=== PATIENT | male | born 1940 | race Caucasian/White ===

== ENCOUNTER → 2017-08-05 09:46 | Outpatient (CLI) | payer MEDICARE, SELFPAY ==
--- NOTE | 2017-08-05 09:46 | DT_ITS ---
This patient was seen during an EMR downtime August 03, 2017 - August 10, 2017. This patient may have a combination of paper and electronic documentation or all paper documentation. All documentation is viewable within the e-chart portion of [facility] for each patient visit.
[2017-08-10 11:30] LABS: ALB/GLOB Ratio 0.9 RATIO (0.9-2.4); AST(SGOT) 24 U/L (15-37); Alanine Aminotransfer ALT/SGPT 31 U/L (16-61); Albumin, Serum 3.9 g/dL (3.2-5.0); Alkaline Phosphatase 80 U/L (45-117); BUN 14 mg/dL (7-18); BUN/Creat Ratio 12.2 RATIO (10-20); Calcium,Total 8.8 mg/dL (8.5-10.1); Creatinine, Serum 1.15 mg/dL (0.70-1.30); EST Glomerular Filtration Rate 66 mL/min (>60); Est Glom Filt Rate - Afr Amer 80 mL/min (>60); Globulin 4.3 g/dL (2.2-4.2); Glucose 157 mg/dL (74-106); Protein, Total 8.2 g/dL (6.4-8.2)
[2017-08-10 11:31] LABS: Anion Gap 10 (5-15); Chloride 103 mmol/L (98-107); Cholesterol 118 mg/dL (200); Hemoglobin A1c 7.4 % (4.2-6.3); High Density Lipoprotein 30 mg/dL; Potassium 4.7 mmol/L (3.5-5.1); Sodium Level 140 mmol/L (136-145); Triglycerides 244 mg/dL; Very Low Density Lipoprotein 49 mg/dL (5-40)
== END ==
PROVIDERS: Family Provider Family Medicine; PCP Family Medicine; Visit Provider Family Medicine
DX: E11.9 Type 2 diabetes mellitus without complications (principal); Z79.899 Other long term (current) drug therapy
CPT/HCPCS: 36415; 80053; 80061; 83036

== ENCOUNTER → 2017-11-18 09:41 | Outpatient (CLI) | payer MEDICARE, SELFPAY ==
[2017-11-18 10:57] LABS: Hemoglobin A1c 7.6 % (4.2-6.3)
== END ==
PROVIDERS: Family Provider Family Medicine; PCP Family Medicine; Visit Provider Family Medicine
DX: E11.9 Type 2 diabetes mellitus without complications (principal)
CPT/HCPCS: 36415; 83036

== ENCOUNTER → 2018-06-23 09:15 | Outpatient (CLI) | payer MEDICARE, SELFPAY ==
[2018-06-23 08:43] VITALS: BMI 24.7
[2018-06-23 12:37] LABS: AST(SGOT) 24 U/L (15-37); Alanine Aminotransfer ALT/SGPT 39 U/L (16-61); Albumin, Serum 3.9 g/dL (3.2-5.0); Alkaline Phosphatase 81 U/L (45-117); Anion Gap 6 (5-15); BUN 11 mg/dL (7-18); Chloride 103 mmol/L (98-107); Cholesterol 130 mg/dL (200); Creatinine, Serum 1.22 mg/dL (0.70-1.30); EST Glomerular Filtration Rate 61 mL/min (>60); Est Glom Filt Rate - Afr Amer 74 mL/min (>60); Glucose 180 mg/dL (74-106); High Density Lipoprotein 31 mg/dL; Potassium 4.6 mmol/L (3.5-5.1); Protein, Total 7.9 g/dL (6.4-8.2); Sodium Level 138 mmol/L (136-145); Thyroid Stim Hormone (TSH) 4.73 uIU/mL (0.358-3.74); Triglycerides 222 mg/dL; Very Low Density Lipoprotein 44 mg/dL (5-40)
== END ==
PROVIDERS: Family Provider Family Medicine; PCP Family Medicine; Visit Provider Family Medicine
DX: E03.9 Hypothyroidism, unspecified (principal); E78.5 Hyperlipidemia, unspecified
CPT/HCPCS: 36415; 80053; 80061; 84443

== ENCOUNTER → 2018-07-07 08:39 | Outpatient (CLI) | payer MEDICARE, SELFPAY ==
[2018-06-23 08:43] VITALS: BMI 24.7
[2018-07-07 12:42] LABS: T4 Free Direct 1.04 ng/dL (0.76-1.46); Thyroid Stim Hormone (TSH) 5.06 uIU/mL (0.358-3.74)
== END ==
PROVIDERS: Family Provider Family Medicine; PCP Family Medicine; Visit Provider Family Medicine
DX: E03.9 Hypothyroidism, unspecified (principal)
CPT/HCPCS: 36415; 84439; 84443

== ENCOUNTER → 2019-04-20 09:01 | Outpatient (CLI) | payer MEDICARE, SELFPAY ==
[2019-04-20 08:42] VITALS: BMI 24.7
[2019-04-20 12:49] LABS: AST(SGOT) 43 U/L (15-37); Alanine Aminotransfer ALT/SGPT 76 U/L (16-61); Albumin, Serum 4.1 g/dL (3.2-5.0); Alkaline Phosphatase 68 U/L (45-117); Anion Gap 10 (5-15); BUN 13 mg/dL (7-18); BUN/Creat Ratio 9.8 RATIO (10-20); Calcium,Total 9.4 mg/dL (8.5-10.1); Chloride 99 mmol/L (98-107); Cholesterol 142 mg/dL (200); Creatinine, Serum 1.32 mg/dL (0.70-1.30); EST Glomerular Filtration Rate 56 mL/min (>60); Est Glom Filt Rate - Afr Amer 67 mL/min (>60); Globulin 4.2 g/dL (2.2-4.2); Glucose 202 mg/dL (74-106); High Density Lipoprotein 31 mg/dL; Potassium 4.2 mmol/L (3.5-5.1); Protein, Total 8.3 g/dL (6.4-8.2); Sodium Level 136 mmol/L (136-145); Triglycerides 340 mg/dL; Very Low Density Lipoprotein 68 mg/dL (5-40)
== END ==
PROVIDERS: PCP Family Medicine; Referring Provider Family Medicine; Visit Provider Family Medicine
DX: E03.9 Hypothyroidism, unspecified (principal); E78.2 Mixed hyperlipidemia
CPT/HCPCS: 36415; 80053; 80061

== ENCOUNTER → 2019-04-28 08:53 | Outpatient (CLI) | payer MEDICARE, SELFPAY ==
[2019-04-20 08:42] VITALS: BMI 24.7
[2019-04-28 12:44] LABS: Insulin 13.5 mU/L (2.6-37.6)
== END ==
PROVIDERS: PCP Family Medicine; Referring Provider Family Medicine; Visit Provider Family Medicine
DX: E11.9 Type 2 diabetes mellitus without complications (principal)
CPT/HCPCS: 36415; 83525

== ENCOUNTER → 2020-03-07 09:19 | Outpatient (CLI) | payer MEDICARE, SELFPAY ==
[2020-03-07 08:52] VITALS: BMI 24.8
[2020-03-07 12:53] LABS: AST(SGOT) 27 U/L (15-37); Alanine Aminotransfer ALT/SGPT 50 U/L (16-61); Albumin, Serum 4.1 g/dL (3.2-5.0); Alkaline Phosphatase 66 U/L (45-117); Anion Gap 8 (5-15); BUN 20 mg/dL (7-18); BUN/Creat Ratio 12.4 RATIO (10-20); Calcium,Total 9.3 mg/dL (8.5-10.1); Chloride 99 mmol/L (98-107); Cholesterol 152 mg/dL (200); Creatinine, Serum 1.61 mg/dL (0.70-1.30); EST Glomerular Filtration Rate 44 mL/min (>60); Est Glom Filt Rate - Afr Amer 54 mL/min (>60); Globulin 4.1 g/dL (2.2-4.2); Glucose 227 mg/dL (74-106); High Density Lipoprotein 33 mg/dL; Potassium 4.2 mmol/L (3.5-5.1); Protein, Total 8.2 g/dL (6.4-8.2); Sodium Level 134 mmol/L (136-145); Triglycerides 307 mg/dL; Very Low Density Lipoprotein 61 mg/dL (5-40)
== END ==
PROVIDERS: PCP Family Medicine; Referring Provider Family Medicine; Visit Provider Family Medicine
DX: E03.9 Hypothyroidism, unspecified (principal); E11.9 Type 2 diabetes mellitus without complications
CPT/HCPCS: 36415; 80053; 80061

== ENCOUNTER → 2020-03-12 08:05 | Outpatient (CLI) | payer MEDICARE, SELFPAY ==
[2020-03-07 08:52] VITALS: BMI 24.8
--- NOTE | 2020-03-12 08:11 | CT_ITS ---
STUDY: CT ABDOMEN WITH CONTRAST REASON FOR EXAM: Male, 79 years old. PERSIST ANT EPIGASTRIC PAIN X-MULTIPLE MONTHS -- SURG-APPY RADIATION DOSAGE (If Supplied By Facility): CTDIvol = ( 19.53 ) mGy, DLP = ( 636.72 ) mGycm TECHNIQUE: Transaxial images were obtained post I.V. administration of 100CC ISOVUE 300, and without oral contrast. Sagittal and coronal images were reconstructed. Individualized dose optimization techniques were used for this CT. COMPARISON: None. FINDINGS: The visualized lung bases are unremarkable. Coronary artery calcification. There is decreased attenuation of the liver consistent with steatosis. Normal gallbladder and extrahepatic biliary system. Normal spleen. Normal pancreas. Normal bilateral adrenal glands. Normal right kidney. Normal left kidney. Normal visualized stomach. Normal small intestine. Normal colon. The patient is status post appendectomy. There is diffuse atherosclerotic calcification of the abdominal aorta, without a demonstrated aneurysm. Normal inferior vena cava. There is borderline retroperitoneal lymphadenopathy with enlarged nodes no greater than 10mm in the short axis diameter. There is a small umbilical hernia containing fat. There are diffuse degenerative changes of the visualized lumbar spine. There is straightening of the normal lumbar lordosis. CT/Abdomen WITH IV Contrast IMPRESSION: Fatty infiltration of the liver. Electronically Signed: Camron Bo, at 14:31 EST , Service support ,
== END ==
PROVIDERS: PCP Family Medicine; Referring Provider Family Medicine; Visit Provider Family Medicine
DX: R10.13 Epigastric pain (principal)
CPT/HCPCS: 74160; Q9967; A4216

== ENCOUNTER 2020-05-07 15:48 | Outpatient (RCR) | payer MEDICARE, SELFPAY ==
[2020-03-07 08:52] VITALS: BMI 24.8
[2020-05-03] MEDS: COVID-19 VACC, MRNA(PFIZER)/PF 30 MCG/0.3 ML SYRINGE IM (14:58)
[2020-05-24] MEDS: COVID-19 VACC, MRNA(PFIZER)/PF 30 MCG/0.3 ML SYRINGE IM (14:28)
== END 2020-08-07 23:59 ==
LOC: IMMUN 15:48
PROVIDERS: PCP Family Medicine; Visit Provider Family Medicine
DX: Z23 Encounter for immunization (principal)
CPT/HCPCS: 0001A; 0002A; 91300

== ENCOUNTER → 2020-12-19 11:55 | Outpatient (CLI) | payer MEDICARE, SELFPAY ==
[2020-12-19 15:27] LABS: Hemoglobin A1c 8.4 % (3.8-5.6)
[2020-12-19 15:38] LABS: Anion Gap 9 (5-15); BUN 19 mg/dL (7-18); BUN/Creat Ratio 13.3 RATIO (10-20); Chloride 99 mmol/L (98-107); Cholesterol 140 mg/dL (200); Creatinine, Serum 1.43 mg/dL (0.70-1.30); EST Glomerular Filtration Rate 51 mL/min (>60); Est Glom Filt Rate - Afr Amer 61 mL/min (>60); Glucose 236 mg/dL (74-106); High Density Lipoprotein 34 mg/dL; Potassium 4.6 mmol/L (3.5-5.1); Sodium Level 135 mmol/L (136-145); Triglycerides 259 mg/dL; Very Low Density Lipoprotein 52 mg/dL (5-40)
== END ==
PROVIDERS: PCP Family Medicine; Referring Provider Family Medicine; Visit Provider Family Medicine
DX: E11.9 Type 2 diabetes mellitus without complications (principal); Z86.39 Personal history of other endocrine, nutritional and metabolic disease
CPT/HCPCS: 36415; 80048; 80061; 83036

== ENCOUNTER → 2020-12-20 | Outpatient (CLI) | payer MEDICARE, SELFPAY | END | disposition home or self-care (01) | LOC: LABSPEC 08:20 | PROVIDERS: PCP Family Medicine; Referring Provider Physician Assistant; Visit Provider Physician Assistant | DX: Z20.822 Contact with and (suspected) exposure to COVID-19 (principal) | CPT/HCPCS: 87635; U0005; U0003 ==

== ENCOUNTER 2021-05-10 10:21 | Outpatient (CLI) | payer MEDICARE, SELFPAY | END 2021-05-10 23:59 | disposition home or self-care (01) | LOC: LABSPEC 10:22 | PROVIDERS: PCP Family Medicine; Referring Provider Physician Assistant; Visit Provider Physician Assistant | DX: Z11.52 Encounter for screening for COVID-19 (principal) | CPT/HCPCS: 87635; U0003; U0005 ==

== ENCOUNTER → 2021-08-14 | Outpatient (CLI) | payer MEDICARE, SELFPAY ==
--- NOTE | 2021-08-14 10:10 | RAD_ITS ---
STUDY: X-RAY - LUMBAR SPINE REASON FOR EXAM: Male, 80 years old. Radiating low back pain TECHNIQUE: 3 view(s) of the lumbar spine were obtained. COMPARISON: None FINDINGS: There is straightening of the normal lumbar lordosis. There is no substantial scoliosis. There is a normal alignment of the vertebrae. There is diffuse demineralization with multi-level endplate spondylosis. There is multi-level degenerative disc disease with multi-level disc space narrowing. There is no demonstrated fracture. There is atherosclerotic calcification of the abdominal aorta without a demonstrated aneurysm. RAD/Lumbar Spine 2 or 3 Views IMPRESSION: Degenerative changes of the spine, as detailed above. Electronically Signed: Jose Brewer MD at 15:14 EDT ,
== END | disposition home or self-care (01) ==
LOC: RAD 10:07
PROVIDERS: PCP Family Medicine; Referring Provider Family Medicine; Visit Provider Family Medicine
DX: M54.50 Low back pain, unspecified (principal)
CPT/HCPCS: 72100

== ENCOUNTER → 2021-09-12 | Outpatient (CLI) | payer MEDICARE, SELFPAY | END | disposition home or self-care (01) | LOC: LABSPEC 09:23 | PROVIDERS: PCP Family Medicine; Referring Provider Physician Assistant; Visit Provider Physician Assistant | DX: Z11.52 Encounter for screening for COVID-19 (principal) | CPT/HCPCS: 87635; U0003; U0005 ==

== ENCOUNTER → 2022-01-08 | Outpatient (CLI) | payer MEDICARE, SELFPAY ==
[2022-01-08 13:18] LABS: AST(SGOT) 24 U/L (15-37); Alanine Aminotransfer ALT/SGPT 41 U/L (16-61); Alkaline Phosphatase 71 U/L (45-117); Anion Gap 10 (5-15); BUN 17 mg/dL (7-18); BUN/Creat Ratio 12.7 RATIO (10-20); Calcium,Total 9.3 mg/dL (8.5-10.1); Chloride 100 mmol/L (98-107); Cholesterol 122 mg/dL (200); Creatinine, Serum 1.34 mg/dL (0.70-1.30); EST Glomerular Filtration Rate 54 mL/min (>60); Est Glom Filt Rate - Afr Amer 66 mL/min (>60); Glucose 208 mg/dL (74-106); High Density Lipoprotein 34 mg/dL; Potassium 4.1 mmol/L (3.5-5.1); Sodium Level 138 mmol/L (136-145); Triglycerides 228 mg/dL; Very Low Density Lipoprotein 46 mg/dL (5-40)
[2022-01-08 15:01] LABS: Microalbumin:Creatinine Ratio 193.6 mg/g CRE (<30 mg/g CRE)
== END | disposition home or self-care (01) ==
LOC: BIMLAB 08:55
PROVIDERS: PCP Family Medicine; Referring Provider Family Medicine; Visit Provider Family Medicine
DX: E11.9 Type 2 diabetes mellitus without complications (principal); E78.2 Mixed hyperlipidemia
CPT/HCPCS: 36415; 80053; 80061; 82043; 82570

== ENCOUNTER → 2022-04-03 | Outpatient (CLI) | payer MEDICARE, SELFPAY ==
[2022-04-03 12:49] LABS: Hemoglobin A1c 10.7 % (3.8-5.6)
[2022-04-03 12:58] LABS: Thyroid Stim Hormone (TSH) 6.52 uIU/mL (0.358-3.74)
== END | disposition home or self-care (01) ==
LOC: BIMLAB 08:56
PROVIDERS: PCP Family Medicine; Referring Provider Family Medicine; Visit Provider Family Medicine
DX: Z86.39 Personal history of other endocrine, nutritional and metabolic disease (principal); E78.2 Mixed hyperlipidemia
CPT/HCPCS: 36415; 83036; 84443

== ENCOUNTER → 2022-07-01 | Outpatient (CLI) | payer MEDICARE, SELFPAY ==
[2022-07-01 10:57] LABS: Insulin 8.5 mU/L (2.6-37.6)
[2022-07-01 11:10] LABS: T4 Free Direct 1.48 ng/dL (0.76-1.46); Thyroid Stim Hormone (TSH) 0.76 uIU/mL (0.358-3.74)
== END | disposition home or self-care (01) ==
LOC: BIMLAB 09:04
PROVIDERS: PCP Family Medicine; Referring Provider Family Medicine; Visit Provider Family Medicine
DX: E78.2 Mixed hyperlipidemia (principal)
CPT/HCPCS: 36415; 83525; 84439; 84443

== ENCOUNTER → 2022-07-10 | Outpatient (CLI) | payer MEDICARE, SELFPAY ==
--- NOTE | 2022-07-10 07:55 | CT_ITS ---
STUDY: CT ABDOMEN WITH CONTRAST REASON FOR EXAM: Male, 81 years old. Epigastric pain. Patient is diabetic. RADIATION DOSAGE (If Supplied By Facility): CTDIvol = ( 13.10 ) mGy, DLP = ( 835.06 ) mGycm TECHNIQUE: Transaxial images were obtained post I.V. administration of IV-100 mL IsoVue 370, and with oral contrast. Sagittal and coronal images were reconstructed. Individualized dose optimization techniques were used for this CT. COMPARISON: Comparison is made with prior examination dated March 12, 2020. FINDINGS: The visualized lung bases are unremarkable. Coronary artery calcification. There is decreased attenuation of the liver consistent with steatosis. Normal gallbladder and extrahepatic biliary system. Normal spleen. There is diffuse atrophy of the pancreas. Normal bilateral adrenal glands. Normal right kidney. Normal left kidney. There is a small hiatal hernia. Normal small intestine. Normal colon. The appendix is visualized and appears normal. There is diffuse atherosclerotic calcification of the abdominal aorta and its major visceral branches, without a demonstrated aneurysm. Normal inferior vena cava. Normal retroperitoneum. Normal abdominal wall. There are diffuse degenerative changes of the visualized lumbar spine. CT/Abdomen WITH IV Contrast IMPRESSION: Fatty infiltration of the liver. Pancreatic atrophy. Electronically Signed: Camron Bo MD at 9:23 EDT ,
[2022-07-10 08:25] LABS: EGFR FINGERSTICK > 60.0000 mL/min (>60)
== END | disposition home or self-care (01) ==
PROVIDERS: PCP Family Medicine; Referring Provider Family Medicine; Visit Provider Family Medicine
DX: Z01.812 Encounter for preprocedural laboratory examination (principal); R10.13 Epigastric pain
CPT/HCPCS: 74160; Q9967

== ENCOUNTER → 2022-12-10 | Outpatient (CLI) | payer MEDICARE, SELFPAY ==
[2022-12-10 12:54] LABS: ALB/GLOB Ratio 0.8 RATIO (0.9-2.4); AST(SGOT) 26 U/L (15-37); Alanine Aminotransfer ALT/SGPT 46 U/L (16-61); Albumin, Serum 3.8 g/dL (3.2-5.0); Alkaline Phosphatase 68 U/L (45-117); Anion Gap 8 (5-15); BUN 19 mg/dL (7-18); BUN/Creat Ratio 13.6 RATIO (10-20); Calcium,Total 9.8 mg/dL (8.5-10.1); Chloride 100 mmol/L (98-107); Cholesterol 107 mg/dL (200); EST Glomerular Filtration Rate 52 mL/min (>60); Est Glom Filt Rate - Afr Amer 62 mL/min (>60); Globulin 4.5 g/dL (2.2-4.2); Glucose 168 mg/dL (74-106); High Density Lipoprotein 32 mg/dL; Potassium 4.2 mmol/L (3.5-5.1); Protein, Total 8.3 g/dL (6.4-8.2); Sodium Level 133 mmol/L (136-145); Triglycerides 124 mg/dL; Very Low Density Lipoprotein 25 mg/dL (5-40)
[2022-12-10 15:04] LABS: Hemoglobin A1c 10.3 % (3.8-5.6)
== END | disposition home or self-care (01) ==
LOC: BIMLAB 10:27
PROVIDERS: PCP Family Medicine; Visit Provider Family Medicine
DX: E78.2 Mixed hyperlipidemia (principal); E11.9 Type 2 diabetes mellitus without complications; Z86.39 Personal history of other endocrine, nutritional and metabolic disease; I10 Essential (primary) hypertension
CPT/HCPCS: 36415; 80053; 80061; 83036

== ENCOUNTER → 2024-03-22 | Outpatient (CLI) | payer MEDICARE, SELFPAY ==
[2024-03-22 13:21] LABS: ALB/GLOB Ratio 0.7 RATIO (0.9-2.4); AST(SGOT) 23 U/L (15-37); Alanine Aminotransfer ALT/SGPT 36 U/L (16-61); Albumin, Serum 3.7 g/dL (3.2-5.0); Alkaline Phosphatase 68 U/L (45-117); Anion Gap 9 (5-15); BUN 20 mg/dL (7-18); BUN/Creat Ratio 13.2 RATIO (10-20); Calcium,Total 10.2 mg/dL (8.5-10.1); Chloride 103 mmol/L (98-107); Cholesterol 93 mg/dL (200); Creatinine, Serum 1.52 mg/dL (0.70-1.30); EST Glomerular Filtration Rate 47 mL/min (>60); Est Glom Filt Rate - Afr Amer 57 mL/min (>60); Globulin 5.4 g/dL (2.2-4.2); Glucose 106 mg/dL (74-106); High Density Lipoprotein 34 mg/dL; Potassium 4.7 mmol/L (3.5-5.1); Protein, Total 9.1 g/dL (6.4-8.2); Sodium Level 137 mmol/L (136-145); Triglycerides 161 mg/dL; Very Low Density Lipoprotein 32 mg/dL (5-40)
[2024-03-22 13:23] LABS: Microalbumin:Creatinine Ratio 370.2 mg/g CRE (<30 mg/g CRE)
== END | disposition home or self-care (01) ==
LOC: BIMLAB 10:02
PROVIDERS: PCP Family Medicine; Referring Provider Family Medicine; Visit Provider Family Medicine
DX: E11.9 Type 2 diabetes mellitus without complications (principal); E78.5 Hyperlipidemia, unspecified
CPT/HCPCS: 36415; 80053; 80061; 82043; 82570

== ENCOUNTER → 2024-10-04 | Outpatient (CLI) | payer MEDICARE, SELFPAY ==
--- NOTE | 2024-10-04 10:04 | US_ITS ---
PROCEDURE: ABDOMEN LIMITED 10/04/2024 REASON FOR EXAM: NAUSEA WITH FATTY FOODS COMPARISON: None FINDINGS: Liver: Diffusely echogenic suggesting fatty infiltration. The liver measures 16.1 cm. Gallbladder: There are 2, small polyps adherent to the gallbladder wall. The larger measures 6 mm x 6 mm x 4 mm. No evidence of gallstones. Common bile duct: Normal measuring 5.1 mm . Pancreas: Visualized portions are unremarkable. The distal body and tail are obscured by bowel gas. Other: Visualized portions of the right kidney are unremarkable. No right upper quadrant ascites. US/Abdomen Limited IMPRESSION: No evidence of gallstones. There are 2, small gallbladder polyps adherent to the gallbladder wall. Fatty infiltration of the liver. Reading Location: [id number]
--- NOTE | 2024-10-04 10:04 | US_ITS ---
PROCEDURE: ABDOMEN LIMITED 10/04/2024 REASON FOR EXAM: NAUSEA WITH FATTY FOODS COMPARISON: None FINDINGS: Liver: Diffusely echogenic suggesting fatty infiltration. The liver measures 16.1 cm. Gallbladder: There are 2, small polyps adherent to the gallbladder wall. The larger measures 6 mm x 6 mm x 4 mm. No evidence of gallstones. Common bile duct: Normal measuring 5.1 mm . Pancreas: Visualized portions are unremarkable. The distal body and tail are obscured by bowel gas. Other: Visualized portions of the right kidney are unremarkable. No right upper quadrant ascites. US/Abdomen Limited IMPRESSION: No evidence of gallstones. There are 2, small gallbladder polyps adherent to the gallbladder wall. Fatty infiltration of the liver. Reading Location: [id number]
== END | disposition home or self-care (01) ==
PROVIDERS: PCP Family Medicine; Referring Provider Family Medicine; Visit Provider Family Medicine
DX: R11.0 Nausea (principal)
CPT/HCPCS: 76705

== ENCOUNTER → 2024-10-19 | Outpatient (CLI) | payer MEDICARE, SELFPAY ==
--- NOTE | 2024-10-19 18:26 | STRESSREP ---
Stress Test Report Exercise stress test. 83-year-old man with a history of chest pain. Stress protocol: Resting EKG demonstrates normal sinus rhythm with a rate of 70 bpm resting blood pressure is 158/88 mmHg. T wave inversions are noted V3 through V6. The patient exercised according to the regular Rogers protocol for a total duration of 3-1/2 minutes attaining a maximum heart rate of 144 bpm which was 105% % of maximum predicted heart rate; the maximum workload was 5.8 metabolic equivalents. At rest there were no ST or T wave changes noted to suggest ischemia and at peak exercise approximately 1.5 to [address] depression were noted in leads II, III and aVF V4 V5 and V6 suggestive of ischemia. The patient also developed some chest tightness with exertion which resolved with rest. The peak blood pressure was 168/64 mmHg. Rate-pressure product was 23,600. Conclusion: Exercise stress test with EKG criteria suggestive of ischemia at a moderate workload Clinical angina noted.
== END | disposition home or self-care (01) ==
LOC: CVS 09:43
PROVIDERS: PCP Family Medicine; Referring Provider Family Medicine; Visit Provider Family Medicine
DX: R07.9 Chest pain, unspecified (principal)
CPT/HCPCS: 93017

== ENCOUNTER → 2024-11-15 | Outpatient (CLI) | payer MEDICARE, SELFPAY ==
--- NOTE | 2024-11-15 12:52 | RAD_ITS ---
PROCEDURE: LUMBAR SPINE 2 OR 3 VIEWS 11/15/2024 REASON FOR EXAM: LOWER RIGHT BACK PAIN TECHNIQUE: Procedure Code: RADSPLL Modality: DX Procedure: LUMBAR SPINE 2 OR 3 VIEWS COMPARISON: Prior study dated August 14, 2021. FINDINGS: Vertebrae: Multilevel spondylosis. Loss of height of the superior endplate of the L1 vertebrae. This is new as compared to prior study. Discs: Multilevel disc space narrowing worse at the L2-L3 and L3-L4 levels. Facet joint osteoarthritis. Alignment: Loss of the normal lumbar lordosis. Other: Aortic calcification. Large amount of fecal material is seen in the colon. RAD/Lumbar Spine 2 or 3 Views IMPRESSION: ADVANCED DEGENERATIVE CHANGES OF THE LUMBAR SPINE. Reading Location: [place] [id number]
== END | disposition home or self-care (01) ==
LOC: MTRAD 12:52
PROVIDERS: PCP Family Medicine; Referring Provider Physician Assistant; Visit Provider Physician Assistant
DX: M54.10 Radiculopathy, site unspecified (principal)
CPT/HCPCS: 72100

== ENCOUNTER → 2024-11-25 | Outpatient (CLI) | payer MEDICARE, SELFPAY ==
--- NOTE | 2024-11-25 15:00 | MRI_ITS ---
PROCEDURE: MRI SPINE LUMBAR (ROUTINE) 11/25/2024 REASON FOR EXAM: BACK PAIN TECHNIQUE: Procedure Code: MRISPL Modality: MR Procedure: SPINE LUMBAR (ROUTINE) Multiplanar and multisequential MRI of the lumbar spine was performed without contrast. COMPARISON: Radiographs 11/15/2024, 08/14/2021. FINDINGS: Acute-subacute superior endplate compression fracture of L1, with minimal less than 50% height loss. No retropulsion. Remaining vertebral bodies are preserved in height. No significant subluxation, although there is straightening of the normal lumbar lordosis. Subcentimeter T1 hypointense lesion at the inferior endplate of L2 appears most compatible with a degenerative subchondral cyst/geode. Multilevel spondylotic changes with varying degrees of disc desiccation and narrowing, degenerative endplate marrow signal changes, anterior endplate osteophytosis, and hypertrophic facet arthropathy. Conus medullaris appears normal in signal and morphology, terminating at L1-2. Normal appearance of the cauda equina. No significant abnormality appreciated within the visualized paravertebral soft tissues. Multiple bilateral small simple appearing renal cysts. T12-L1: Dorsal annular disc bulge indenting the ventral thecal sac, without substantial spinal canal or neural foraminal narrowing. L1-2: Dorsal disc bulge indents the ventral thecal sac, without substantial spinal canal or neural foraminal narrowing. L2-3: Dorsal disc bulge and ligamentum flavum/facet hypertrophy results in moderate spinal canal stenosis, with crowding of the cauda equina. Mild bilateral neural foraminal narrowing. L3-4: Trace degenerative grade 1 anterolisthesis of L3 on L4, with partially uncovered dorsal disc bulge and ligamentum flavum/facet hypertrophy results in advanced spinal canal stenosis with focal impingement of the cauda equina. Moderate bilateral neural foraminal narrowing, worse on the right. L4-5: No significant disc bulge, spinal canal or foraminal narrowing. L5-S1: Minimal dorsal annular disc bulging. No spinal canal narrowing. Mild bilateral neural foraminal narrowing. MRI/Spine Lumbar (Routine) IMPRESSION: Acute-subacute superior endplate compression fracture of L1, with minimal heigh t loss and no retropulsion. This fracture was noted on 11/15/2024 radiographs, but is new since 07/10/2022. Multilevel spondylotic changes, as described above. Moderate-advanced spinal c anal stenosis at L2-3 and L3-4, with crowding/impingement of the cauda equina at these levels. Neural foraminal narrowing is most advanced bilaterally at L3-4. More mild els ewhere. Reading Location: [id number]
== END | disposition home or self-care (01) ==
LOC: MRI 14:42
PROVIDERS: PCP Family Medicine; Referring Provider Family Medicine; Visit Provider Family Medicine
DX: S32.010A Wedge compression fracture of first lumbar vertebra, initial encounter for closed fracture (principal); X58.XXXA Exposure to other specified factors, initial encounter
CPT/HCPCS: 72148

== ENCOUNTER 2024-12-03 14:07 | Inpatient (IN) | payer MEDICARE, SELFPAY ==
[2024-12-03 14:09] VITALS: BP 167/80; PULSE 88; RESP 16; TEMP 35.8; O2SAT 97
--- NOTE | 2024-12-03 14:25 | EDS_ITS ---
HPI HPI - GI History of Present Illness Chief Complaint: Nausea/Vomiting Informant: patient Nausea/Vomiting/Emesis GI Symptom: Positive for Nausea and Vomiting Onset: Days Severity: Mild Diarrhea/Melena/Hematochezia GI Symptom: Positive for Diarrhea Onset: Days Stool Quality: Positive for Loose Severity: Mild Associated Symptoms Associated Symptoms: Negative for Dysuria, Frequency, Hematuria or Urgency Narrative Narrative: 83-year-old male history of prior A-fib, diabetes, hypertension. Recently diagnosed with a lumbar L1 compression fracture. Upcoming kyphoplasty to be.. States that he feels dehydrated. He has had intermittent nausea and vomiting for weeks. He just feels generally weak. Denies any dysuria. No fever. No significant valve pain. Prior similar symptoms: No Recent Illness/Hospitalization: No PFSH PFSH Medical History Lumbar strain Low back pain Shingles (herpes zoster) polyneuropathy Acute urticaria Gastroenteritis GERD (gastroesophageal reflux disease) Hypothyroidism Home Medications ?Medication ?Instructions ?Recorded ?Last Taken ?Type flu vacc (65yr 60 mcg IM ONCE #0.5 mL 11/11 Unknown Clinic up)-MF59C(PF) 60 mcg(15 mcgx4)/0.5 mL IM syringe blood sugar diagnostic (True #100 ea 02/11/23 Unknown Rx Metrix Glucose Test Strip) blood-glucose meter #1 ea 02/11/23 Unknown Rx atorvastatin 20 mg tablet 20 mg PO QDAY #90 tabs 09/29 Unknown Rx lancets 30 gauge (Unilet Lancets) #100 ea 09/29/24 Unk nown Rx levothyroxine 100 mcg tablet 100 mcg PO DAILY #100 tab s 09/29/24 Unknown Rx metformin 500 mg tablet,extended 500 mg PO BID #180 ta bs 09/29/24 Unknown Rx release 24 hr omeprazole 20 mg capsule,delayed 20 mg PO DAILY #100 c aps 09/29/24 Unknown Rx release pen needle, diabetic 29 gauge x #100 ea 09/29/24 Unkno wn Rx 1/2 (CareFine Pen Needle) sitagliptin phosphate 100 mg 100 mg PO DAILY #100 tabs 09/29/24 Unknown Rx tablet (Januvia) valsartan 160 1 tab PO DAILY #90 TABLETS 0 09/29/24 Unknown Rx mg-hydrochlorothiazide 12.5 mg tablet insulin glargine 100 unit/mL (3 40 unit (0.4 mL) subcu t QHS #15 mL 11/08/24 Unknown Rx mL) subcutaneous pen (Lantus Solostar U-100 Insulin) ondansetron 4 mg disintegrating 4 mg PO Q8H PRN nausea and 11/29/24 Unknown Rx tablet vomiting #14 tabs Allergy/AdvReac Type Severity Reaction Status Date / Time meloxicam (From Mobic) Allergy Severe unknown Verified 12/03/24 14:09 pentazocine (From Talwin) Allergy Severe unknown Verified 12/03/24 14:09 metaxalone AdvReac Intermediate Nausea Verified 12/03/24 14:09 Family History Father Heart disease Mother CVA (cerebral vascular accident) Hypertension Breast cancer Surgical History History of back surgery History of left knee surgery History of appendectomy History of cardiac cath Social History Smoking Status: Never smoker how long ago did patient quit smokin alcohol intake: never ROS ROS ED ROS Narrative Back pain from L1 compression fracture. Nausea vomiting. No fever. No dysuria. No abdominal pain. Constitutional Constitutional ED: Denies chills or fever(s) ENT ENT ED: Denies ear pain Cardiovascular Cardiovascular: Denies chest pain Respiratory/Chest Respiratory/Chest: Denies cough or dyspnea Gastrointestinal Gastrointestinal: Reports diarrhea, nausea and vomiting; Denies abdominal pain, constipation or melena Genitourinary Genitourinary ED: Denies dysuria or hematuria Musculoskeletal Musculoskeletal: Reports back pain; Denies arthralgias Integumentary Denies abscess or Abrasions Neurologic Neurologic: Denies headache(s) Psychiatric Psychiatric: Denies anxiety Endocrine Endocrinology: Denies polydipsia Hematologic/Lymphatic Hematologic/Lymphatic: Denies easy bleeding, easy bruising or lymphadenopathy Allergic/Immunologic Allergic/Immunologic ED: Denies mouth swelling, tongue swelling or urticaria EXAM Physical Exam Narrative Exam Narrative: Is a 3-year-old male lying in bed vital signs stable afebrile. Pulse ox 97% room air no signs of hypoxia. Companied by his . Vicky VLADIMIR exam pupils round react light. Dry mucous membranes. Neck nontender no JVD. Lungs clear to auscultation bilaterally. Heart regular rhythm rate about 90 no murmur. Chest wall ribs nontender. Abdomen soft, nontender, nondistended normal bowel sounds without peritoneal signs. No hernia or mass. No obstruction. No right upper or right lower quadrant tenderness. Currently no reproducible pain. Extremities moves all 4. Normal wood heel fitter machine strength. Normal dorsi plantarflexion. No cauda equina. No saddle anesthesia. Normal strength. No edema. Neurologic ally he is awake and alert. Answering questions following commands. Const Vital Signs: 12/03/24 14:09 Temperature 96.5 F L Temperature Source Temporal Pulse Rate 88 Respiratory Rate 16 Blood Pressure 167/80 H Blood Pressure Mean 109 Pulse Ox 97 Oxygen Delivery Method Room Air Positive well nourished and well developed; Negative for contractures or unkempt General Appearance ED: well developed; Negative for unkempt, contractures or pallor HEENT Reports dry mucous membranes normocephalic and atraumatic Mouth ED: Yes dry mucous membranes Mouth: dry mucous membranes Eyes PERRL and EOMs intact bilaterally General Eye ED: Negative for pale conjunctiva or scleral icterus Neck no lymphadenopathy Cardio regular rate, regular rhythm, S1 normal heart sound, S2 normal heart sound and no murmurs Rate: Negative for bradycardia or tachycardic GI non-distended and no masses Inspection: Negative for abdominal distention Auscultation: normoactive bowel sounds Palpation: soft; Negative for tender, guarding, hernia, mass, pulsatile mass or rebound tenderness present Back/Spine no CVA tenderness General Back: Negative for CVA tenderness Cervical Spine: Negative for cervical spine tenderness Thoracic Spine / Upper Back: Negative for thoracic spinal tenderness Lumbar Spine / Lower Back: Negative for lumbar spinal tenderness Extremity full ROM General Extremety ED: Negative for edema or tenderness General Extremity: Negative for edema Neuro CN's II-XII intact bilaterally, moves all extremities and no sensory deficits noted Sensorium / Orientation: alert, oriented to person and oriented to place; Negative for orientation impaired, confused, lethargic or stuporous Motor Exam: strength 5/5 throughout Psych mental status grossly normal and thought process normal Appearance: Negative for unkempt Attitude: No agitated Mood & Affect: Negative for anxious or tearful Skin no wounds General Skin Exam: Negative for jaundice or pallor Lesions: no lesions Rashes: no rashes Trauma: Negative for abrasion Nails: Negative for discolored MDM MDM MDM Narrative Medical decision making narrative: 83-year-old male history of diabetes and prior appendectomy. With intermittent nausea and vomiting for weeks. He has an L1 compression fracture with pending kyphoplasty this week. Clinically feels dehydrated. Will be treated with IV fluids. Screening labs to be obtained. He did not want anything for nausea. He is having no abdominal pain and only needs imaging. Repeat exam patient is doing well. We discussed his test results. His acute kidney failure. He will be given a second bag of IV fluids. IV Zofran. He will be admitted to the hospital. The hospitalist on page. History & Record Review Discussion w/independent historian: Patient Additional record(s) reviewed:: Prior inpatient record, Prior outpatient record, Prior ED visit and Prior labs Lab Data Attestation: I reviewed the patient's lab results. Lab results narrative: CBC shows a white count at 8. H&H 10.7 and 28. Platelets of 206. Chemistry shows sodium 126. Gap of 23. Creatinine is returned at 8.56 consistent with acute kidney failure. Glucose 58. Calcium is elevated 14.6. Liver enzymes are unremarkable. Lipase is normal at 57. Labs: Laboratory Results - last 24 hr 12/03/24 14:24 WBC 8.0 RBC 2.96 L Hgb 10.7 L Hct 28.9 L MCV 97.6 H MCH 36.1 H MCHC 37.0 H RDW Std Deviation 40.3 RDW Coeff of Scotty 11.3 L Plt Count 206 MPV 9.6 Immature Gran % (Auto) 0.400 Neut % (Auto) 76.6 H Lymph % (Auto) 14.1 L Ballard % (Auto) 8.6 Eos % (Auto) 0.2 Baso % (Auto) 0.1 Absolute Neuts (auto) 6.2 Absolute Lymphs (auto) 1.13 Nucleated RBC % 0 Sodium 126 L Potassium 4.2 Chloride 84 L Carbon Dioxide 19.5 L Anion Gap 23 H BUN 113 H* Creatinine 8.56 H* Est GFR (MDRD) Non-Af 6 L BUN/Creatinine Ratio UNABLE TO CALCULATE L Glucose 58 L Calcium 14.6 H* Total Bilirubin 0.70 AST 29 ALT 25 Alkaline Phosphatase 91 Total Protein 9.6 H Albumin 3.6 Globulin 6.1 H Albumin/Globulin Ratio 0.6 L Lipase 57 Discharge Plan Dx/Rx/DC Orders Clinical Impression: Acute renal failure, Nausea & vomiting, Acute hyponatremia, History of diabetes mellitus, Hypercalcemia, History of compression fracture of spine Disposition Disposition: Acute Care [facility]
[2024-12-03] MEDS: 0.9% Normal Saline (1000mL) 1,000 ML 999 ML IV ×2 (14:30→16:38)
[2024-12-03 14:32] LABS: Hematocrit 28.9 % (40-54); Hemoglobin 10.7 g/dL (13.0-16.5); Immature Granulocytes Count 0.030 X10^3/uL (0.0-0.0); Mean Corp Hgb Conc 37.0 g/dL (32-36); Mean Corpuscular Volume 97.6 fL (80-94); Mean Platelet Vol. 9.6 fl (6.2-12.0); NRBC Flagged by Analyzer 0 % (0-5); Platelet Count 206 K/mm3 (150-450); RBC Distribution Width CV 11.3 % (11.6-14.6); RBC Distribution Width SD 40.3 fl (35.1-43.9); Red Blood Count 2.96 M/mm3 (4.6-6.2); White Blood Count 8.0 K/mm3 (4.4-11.0)
--- OUTSIDE RECORDS SUMMARY | 2024-12-03 14:51 | XMS RPT_ITS | CCD ---
Author Organization [facility] Care Team Providers Care Ceiling Cleaner Name Role Phone LUNA FLAHERTY DOUGLAS Unavailable Unavailable Dr. Luna Flaherty Primary Care Provider Dr. Luna lFaherty Attending Provider Dr. Luna Flaherty Referring Provider MARIAA Thakkar Attending Provider Dr. Luna Hill Primary Care Provider Dr. Luna Flaherty Attending Provider Dr. Luna Flaherty Referring Provider MARIAA Thakkar Attending Provider Dr. Luna Hill Primary Care Provider Dr. Luna Flaherty Attending Provider Dr. Luna Flaherty Referring Provider Dr. Luna Flaherty Primary Care Provider Dr. Luna Flaherty Attending Provider Dr. Luna Flaherty Referring Provider Dr. Luna Flaherty Primary Care Provider [phone] Dr. Luna Flaherty Attending Provider Dr. Luna Flaherty Referring Provider Dr. Luna Flaherty Primary Care Provider Dr. Luna Flaherty Attending Provider Dr. Luna Flaherty Referring Provider Dr. Luna Flaherty DO Primary Care Provider [phone] Dr. Isaias Flaherty DOlas R Attending Provider [phone] Reynold ERICKSON, Dr. Luna Judge Referring Provider [phone] Reynold ERICKSON, Dr. Luna Judge Primary Care Provider [phone] Reynold ERICKSON, Dr. Luna Judge Attending Provider [phone] Reynold ERICKSON, Dr. Luna Judge Referring Provider [phone] Reynold ERICKSON, Dr. Luna Judge Other Provider [phone] Que SHIELDS, Dr. Coronel Attending Provider [phone] Victor M Petersen Attending Provider [phone] Victor M Petersen Referring Provider [phone] Reynold ERICKSON, Dr. Luna Judge Primary Care Physician Reynold ERICKSON, Dr. Luna Judge Attending Physician [phone] Reynold ERICKSON, Dr. Luna Judge Nurse Practitioner [phone] SHIELDS, Dr. Coronel Attending Physician [phone] Victor M Petersen Attending Physician Brown, Luna R Primary Care Unavailable Brown, Luna R Attending Unavailable Brown, Luna R Referring Unavailable Brown, Luna R Primary Care Unavailable Victor M Petersen Attending Unavailable Brown, Luna R Referring Unavailable Homer Grey Attending Unavailable Brown, Luna R Consulting Unavailable Brown, Luna R Referring Unavailable Brown, Luna R Primary Care Unavailable Brown, Luna R Primary Care Unavailable Brown, Luna R Attending Unavailable Brown, Luna R Referring Unavailable Brown, Luna R Attending Unavailable Brown, Luna R Referring Unavailable Brown, Luna R Primary Care Unavailable Brown, Luna R Attending Unavailable Brown, Luna R Referring Unavailable Brown, Luna R Primary Care Unavailable Brown, Luna R Attending Unavailable Brown, Luna R Referring Unavailable Brown, Luna R Primary Care Unavailable Brown, Luna R Primary Care Unavailable Victor M Petersen Attending Unavailable Victor M Petersen Referring Unavailable Brown, Luna R Primary Care Unavailable Brown, Luna R Attending Unavailable Brown, Luna R Referring Unavailable Brown, Luna R Attending Unavailable Brown, Luna R Referring Unavailable Brown, Luna R Primary Care Unavailable Brown, Luna R Attending Unavailable Brown, Luna R Referring Unavailable Brown, Luna R Primary Care Unavailable Allergies Allergy Classification Reported Allergen(s) Allergy Type Date of Onset Reaction(s) Facility (13 sources) meloxicam Drug Allergy 05-10-2021 unknown [facility] (13 sources) Pentazocine Drug Allergy 05-10-2021 unknown [facility] (3 sources) metaxalone Drug Allergy 11-23-2024 Nausea [facility] Comment on above: and dry mouth (1 source) meloxicam Drug Allergy 11-23-2024 [facility] Repository (1 source) metaxalone Drug Allergy 11-23-2024 [facility] Repository (1 source) Pentazocine Drug Allergy 11-23-2024 [facility] Repository Medications Current Medications Medication Drug Class(es) Dates Sig (Normalized) Sig (Original) Blood-Glucose Meter (7 sources) Start: 11-24-2022 Blood-Glucose Meter Active 0 .ROUTE .MEDSUPPLY November 24, 2022 4:04pm As directed Start: 12-20-2020 Blood-Glucose Meter Active 0 .ROUTE .MEDSUPPLY December 20, 2020 8:21am As directed Start: 12-20-2020 End: 11-24-2022 Blood-Glucose Meter Disconti nued 0 .ROUTE .MEDSUPPLY December 20, 2020 12:00am November 24, 2022 4:05pm As directed Start: 12-20-2020 Blood-Glucose Meter Active 0 .ROUTE .MEDSUPPLY December 19, 2020 11:00pm As directed Start: 12-20-2020 Blood-Glucose Meter Active 0 .ROUTE .MEDSUPPLY December 20, 2020 12:00am As directed Blood-Glucose Meter kit (20 sources) Start: 02-11-2023 Blood-Glucose Meter kit Active 0 .ROUTE .MEDSUPPLY 1 0 February 11, 2023 2:41pm As directed Start: 11-24-2022 End: 02-11-2023 Blood-Glucose Meter kit Disc ontinued 0 .ROUTE .MEDSUPPLY 1 0 November 24, 2022 4:04pm February 11, 2023 2:42pm As directed Start: 12-20-2020 End: 11-24-2022 Blood-Glucose Meter kit Disc ontinued 0 .ROUTE .MEDSUPPLY 1 0 December 20, 2020 12:00am November 24, 2022 4:05pm As directed 3 ml insulin glargine 100 un t/ml pen injector (20 sources) Insulin Analog Start: 11-08-2024 Start: 02-11-2023 End: 11-08-2024 Insulin Glargine (Lantus Radha ostar U-100 Insulin) 100 unit/mL (3 mL) insulin pen Discontinued 40 U SC DAILY 15 0 September 14, 2024 9:56pm November 08, 2024 8:13am at bedtime Start: 12-03-2022 End: 02-11-2023 Insulin Glargine (Lantus Radha ostar U-100 Insulin) 100 unit/mL (3 mL) insulin pen Discontinued 20 U SC DAILY 15 2 December 09, 2022 9:29am February 11, 2023 2:42pm at bedtime Start: 11-11-2022 End: 12-03-2022 Insulin Glargine (Lantus Radha ostar U-100 Insulin) 100 unit/mL (3 mL) insulin pen Discontinued 15 U SC DAILY 15 0 November 11, 2022 12:00am December 03, 2022 4:46pm at bedtime ondansetron 4 mg disintegrating oral tablet (20 sources) Serotonin-3 Receptor Antagonist Start: 11-29-2024 take 1 tablet by mouth every eight hours as needed for nausea and vomiting Start: 11-29-2024 take 1 tablet by fernandez th every eight hours as needed for nausea and vomiting Start: 11-29-2024 take 1 tablet by fernandez th every eight hours as needed for nausea and vomiting Start: 03-22-2024 End: 11-15-2024 take 1 tablet by mouth every eight hours as needed for nausea and vomiting Ondansetron 4 mg tablet,disintegrating Discontinued 4 mg PO Q8H as needed for nausea and vomiting 14 0 March 22, 2024 10:43am November 15, 2024 12:03pm Start: 02-24-2019 End: 12-19-2020 take 1 tablet by mouth every eight hours as needed for nausea and vomiting Ondansetron 4 mg tablet,disintegrating Discontinued 4 mg PO Q8H as needed for nausea and vomiting 14 0 October 12, 2020 4:01pm December 19, 2020 11:41am Completed/Discontinued Medications Medication Drug Class(es) Dates Sig (Normalized) Sig (Original) aspirin 81 mg delayed release oral tablet (20 sources) Platelet Aggregation Inhibitor, Nonsteroidal Anti-inflammatory Drug Start: 07-31-2017 End: 05-08-2020 take 1 tablet by mouth once daily Aspirin 81 mg tablet,delayed release (DR/EC) Discontinued 81 mg PO daily 90 3 March 07, 2020 10:26am May 08, 2020 2:14pm atorvastatin 20 mg oral tablet (20 sources) HMG-CoA Reductase Inhibitor Start: 07-31-2017 End: 09-29-2024 take 1 tablet by mouth once daily Atorvastatin 20 mg tablet Discontinued 20 mg PO daily 90 2 March 22, 2024 10:41am September 29, 2024 2:29pm baclofen 10 mg oral tablet (12 sources) gamma-Aminobutyric Acid-ergic Agonist Start: 08-07-2021 End: 09-12-2021 take 1 tablet by mouth at bedtime Baclofen 10 mg tablet Discontinued 10 mg PO AT BEDTIME 20 0 August 07, 2021 12:00am September 12, 2021 9:14am Blood-Glucose Meter (True Metrix Glucose Meter) misc (13 sources) Start: 07-31-2017 End: 03-10-2018 Blood-Glucose Meter (True Metrix Glucose Meter) misc Discontinued 0 .ROUTE .MEDSUPPLY 1 July 31, 2017 1:59pm March 10, 2018 9:49am As directed Start: 07-31-2017 End: 03-10-2018 Blood-Glucose Meter (True Me trix Glucose Meter) misc Discontinued 0 .ROUTE .MEDSUPPLY 1 0 July 31, 2017 12:00am March 10, 2018 9:49am As directed Start: 07-31-2017 End: 03-10-2018 Blood-Glucose Meter (True Me trix Glucose Meter) misc Discontinued 0 .ROUTE .MEDSUPPLY July 30, 2017 11:00pm March 10, 2018 8:49am As directed Start: 07-31-2017 End: 03-10-2018 Blood-Glucose Meter (True Me trix Glucose Meter) misc Discontinued 0 .ROUTE .MEDSUPPLY July 31, 2017 12:00am March 10, 2018 9:49am As directed cyclobenzaprine hydrochloride 10 mg oral tablet (4 sources) Muscle Relaxant Start: 11-09-2024 End: 11-15-2024 take 1 tablet by mouth three times daily Cyclobenzaprine 10 mg tablet Discontinued 10 mg PO THREE TIMES A DAY 10 0 November 09, 2024 12:00am November 15, 2024 12:10pm Back pain 0.85 ml exenatide 2.35 mg/ml auto-injector (13 sources) GLP-1 Receptor Agonist Start: 04-28-2019 End: 11-02-2019 Exenatide Microspheres (Bydureramona Bci) 2 mg/0.85 mL auto-injector Discontinued 2 mg SC Q7D 3.4 4 April 28, 2019 1:00am November 02, 2019 9:14am famciclovir 500 mg oral tablet (13 sources) Herpes Simplex Virus Nucleoside Analog DNA Polymerase Inhibitor Start: 05-08-2020 End: 09-12-2021 take 1 tablet by mouth twice daily Famciclovir 500 mg tablet Discontinued 500 mg PO TWICE A DAY 14 0 May 08, 2020 1:00am September 12, 2021 9:15am flu vacc (65yr up)-MF59C(PF) 45 mcg(15 mcgx3)/0.5 mL IM syringe (1 source) Start: 11-18-2017 End: 11-18-2017 inject 1 mL by intramuscular injection once flu vacc (65yr up)-MF59C(PF) 45 mcg(15 mcgx3)/0.5 mL IM syringe Discontinued 0.5 ML IM ONCE November 18, 2017 8:29am November 18, 2017 9:30am Fluad Quad (65yr up)(PF) 60 mcg (15 mcg x 4)/0.5mL IM syringe (flu vac (1 source) Start: 12-04-2020 End: 12-04-2020 Fluad Quad (65yr up)(PF) 60 mcg (15 mcg x 4)/0.5mL IM syringe (flu vac Discontinued 60 MCG IM ONCE 0.5 December 04, 2020 11:41am December 04, 2020 12:05pm handicap placard (20 sources) Start: 01-17-2022 End: 01-17-2022 handicap placard Discontinued 0 .Route .[facility] January 17, 2022 12:55pm January 17, 2022 12:58pm Apical variant hypertrophic cardiomyopathy Other hypertrophic cardiomyopathy 5 year RX, from 01/30/2022-01/31/20 Start: 01-17-2022 End: 01-17-2022 handicap placard Discontinue d 0 .Route .[facility] January 17, 2022 12:55pm January 17, 2022 12:58pm 5 year RX, from 01/30/2022-01/30/2027 Start: 01-17-2022 End: 01-17-2022 handicap placard Discontinue d 0 .Route .[facility] January 17, 2022 11:55am January 17, 2022 11:58am 5 year RX, from 01/30/2022-01/30/2027 Start: 01-17-2022 End: 01-17-2022 handicap placard Discontinue d 0 .Route .[facility] January 17, 2022 1:00am January 17, 2022 12:56pm 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 Start: 01-17-2022 End: 01-17-2022 handicap placard Discontinue d 0 .Route .[facility] January 17, 2022 1:00am January 17, 2022 12:56pm atypical variant hypertrophic cardiomyopathy Start: 01-17-2022 End: 01-17-2022 handicap placard Discontinue d 0 .Route .[facility] January 17, 2022 12:00am January 17, 2022 11:56am atypical variant hypertrophic cardiomyopathy hydroCHLOROthiazide 12.5 mg / valsartan 160 mg oral tablet (20 sources) Thiazide Diuretic, Angiotensin 2 Receptor Ramona Start: 09-30-2018 End: 09-29-2024 Valsartan-Hydrochlorothiazid e 160-12.5 mg tablet Discontinued 1 {tbl} PO DAILY 90 November 27, 2023 9:31am March 22, 2024 10:43am Start: 09-30-2018 End: 11-11-2022 take 1 tablet by mouth once daily Valsartan-Hydrochlorothiazide Discontinu ed 1 TABLET PO DAILY September 06, 2019 11:10am March 07, 2020 10:27am levothyroxine sodium 0.1 mg oral tablet (20 sources) l-Thyroxine Start: 04-03-2022 End: 09-29-2024 take 1 tablet by mouth once daily Levothyroxine 100 mcg tablet Discontinued 100 ug PO DAILY 100 3 March 16, 2024 9:14am March 22, 2024 10:43am Start: 03-13-2020 End: 04-03-2022 take 1 tablet by mouth once daily Levothyroxine (Synthroid) 75 mcg tablet Discontinued 75 ug PO DAILY 90 2 April 03, 2022 9:42am April 03, 2022 2:55pm Start: 07-31-2017 End: 03-13-2020 take 1 capsule by mouth once daily Levothyroxine 75 mcg capsule Discontinued 75 ug PO daily 90 3 March 07, 2020 10:26am March 13, 2020 9:36am lisinopril 40 mg oral tablet (20 sources) Angiotensin Converting Enzyme Inhibitor Start: 09-30-2018 End: 09-30-2018 take 1 tablet by mouth once daily Lisinopril 40 mg tablet Discontinued 40 mg PO DAILY September 30, 2018 12:00am September 30, 2018 10:16am Start: 06-23-2018 End: 09-30-2018 take 10 mg by mouth once daily Lisinopril 20 mg tablet Discontinued 10 mg PO daily 90 2 June 23, 2018 9:08am September 30, 2018 9:44am Start: 06-23-2018 End: 09-30-2018 take 10 mg by mouth once daily Lisinopril Discontinued 10 MG PO daily 90 June 23, 2018 9:08am September 30, 2018 9:44am Start: 07-31-2017 End: 06-23-2018 take 1 tablet by mouth once daily Lisinopril 10 mg tablet Discontinued 10 mg PO daily 90 2 November 18, 2017 8:48am June 23, 2018 9:09am metaxalone 800 mg oral tablet (4 sources) Start: 11-15-2024 End: 11-23-2024 take 1 tablet by mouth three times daily as needed for pain Metaxalone 800 mg tablet Discontinued 800 mg PO THREE TIMES A DAY as needed for muscle pain 30 0 November 15, 2024 12:00am November 23, 2024 10:47am 24 hr metFORMIN hydrochloride 500 mg extended release oral tablet (20 sources) Biguanide Start: 07-31-2017 End: 09-29-2024 take 1 tablet by mouth twice daily Metformin 500 mg tablet extended release 24 hr Discontinued 500 mg PO TWICE A DAY 180 August 17, 2020 7:48am December 19, 2020 11:42am omeprazole 20 mg delayed release oral capsule (20 sources) Proton Pump Inhibitor Start: 12-19-2020 End: 09-29-2024 take 1 capsule by mouth once daily Omeprazole 20 mg capsule,delayed release(DR/EC) Discontinued 20 mg PO DAILY 100 March 16, 2024 9:14am March 22, 2024 10:43am Start: 05-08-2020 End: 12-19-2020 take 1 capsule by mouth twice daily Omeprazole 20 mg capsule,delayed release(DR/EC) Discontinued 20 mg PO TWICE A DAY May 08, 2020 2:15pm December 19, 2020 11:20am Start: 07-31-2017 End: 05-08-2020 take 1 capsule by mouth once daily Omeprazole 20 mg capsule,delayed release(DR/EC) Discontinued 20 mg PO daily 90 3 March 07, 2020 10:27am May 08, 2020 2:15pm repaglinide 0.5 mg oral tablet (20 sources) Glinide Start: 07-31-2017 End: 11-11-2022 take 1 tablet by mouth three times daily Repaglinide 0.5 mg tablet Discontinued 0.5 mg PO THREE TIMES A DAY 270 January 15, 2021 11:03am June 19, 2021 8:52am SITagliptin 100 mg oral tablet (20 sources) Dipeptidyl Peptidase 4 Inhibitor Start: 11-02-2019 End: 09-29-2024 take 1 tablet by mouth once daily Sitagliptin Phosphate (Januvia) 100 mg tablet Discontinued 100 mg PO DAILY 100 March 16, 2024 9:14am March 22, 2024 10:43am Start: 01-12-2019 End: 04-28-2019 take 1 tablet by mouth once daily Sitagliptin Phosphate 100 mg tablet Discontinued 100 mg PO DAILY 90 January 12, 2019 10:24am April 28, 2019 1:57pm Start: 01-12-2019 End: 01-12-2019 Sitagliptin Phosphate 100 mg tablet Discontinued 50 mg PO DAILY 90 2 January 12, 2019 10:06am January 12, 2019 10:24am Start: 01-12-2019 End: 01-12-2019 take 50 mg by mouth once daily Sitagliptin Phosphate Discontinued 50 MG PO DAILY 90 January 12, 2019 10:06am January 12, 2019 10:24am Start: 11-18-2017 End: 01-12-2019 take 1 tablet by mouth once daily Sitagliptin Phosphate (Januvia) 50 mg tablet Discontinued 50 mg PO DAILY 90 September 30, 2018 10:17am January 12, 2019 10:07am Start: 08-28-2017 End: 11-18-2017 take 1 tablet by mouth once daily Sitagliptin Phosphate (Januvia) 25 mg tablet Discontinued 25 mg PO daily August 28, 2017 12:00am November 18, 2017 8:40am Start: 08-14-2017 End: 08-28-2017 take 1 tablet by mouth once daily Sitagliptin Phosphate (Januvia) 50 mg tablet Discontinued 50 mg PO daily 90 August 18, 2017 8:25am August 28, 2017 10:57am Start: 07-31-2017 End: 08-14-2017 take 1 tablet by mouth once daily Sitagliptin Phosphate (Januvia) 25 mg tablet Discontinued 25 mg PO daily July 31, 2017 12:00am August 14, 2017 3:55pm traMADol hydrochloride 50 mg oral tablet (13 sources) Opioid Agonist Start: 05-17-2020 End: 12-19-2020 take 1 tablet by mouth every eight hours as needed for pain Tramadol 50 mg tablet Discontinued 50 mg PO Q8H as needed for pain 30 0 May 17, 2020 12:00am December 19, 2020 11:19am Problems Problem Classification Problem Date Documented Date Episodic/Chronic Abdominal pain (20 sources) Epigastric pain; Translations: [Epigastric pain] Onset: 09-29-2024 Episodic Allergic reactions (13 sources) Acute urticaria; Translations: [Other urticaria] 07-31-2017 Episodic Chronic kidney disease (16 sources) Chronic kidney disease stage 1; Translations: [Chronic kidney disease, stage 1] 06-21-2024 Chronic Coronary atherosclerosis and other heart disease (14 sources) Coronary atherosclerosis; Translations: [Atherosclerotic heart disease of [place] coronary artery without angina pectoris] 03-01-2013 Chronic Diabetes mellitus without complication (20 sources) Type 2 diabetes mellitus; Translations: [Type 2 diabetes mellitus without complications] Onset: 09-29-2024 Chronic Disorders of lipid metabolism (17 sources) Hyperlipidemia; Translations: [Hyperlipidemia, unspecified] Onset: 04-15-2024 Chronic Esophageal disorders (13 sources) Gastroesophageal reflux disease; Translations: [Gastro-esophageal reflux disease without esophagitis] 07-31-2017 Chronic Essential hypertension (20 sources) Hypertensive disorder; Translations: [Essential (primary) hypertension] Onset: 04-15-2024 Chronic Hyperplasia of prostate (13 sources) Nocturia due to benign prostatic hypertrophy; Translations: [Benign prostatic hyperplasia with lower urinary tract symptoms] Chronic Immunizations and screening for infectious disease (1 source) Patient encounter status; Translations: [Exposure to 2019 novel coronavirus] Episodic Nausea and vomiting (1 source) Nausea; Translations: [Nausea] Onset: 10-14-2024 Episodic Noninfectious gastroenteritis (13 sources) Gastroenteritis; Translations: [Noninfective gastroenteritis and colitis, unspecified] 07-31-2017 Episodic Nonspecific chest pain (2 sources) Chest pain, unspecified; Translations: [Chest pain, unspecified] Onset: 11-15-2024 Episodic Other connective tissue disease (6 sources) Triggering of digit; Translations: [Trigger finger, unspecified finger] 06-21-2024 Episodic Other connective tissue disease (3 sources) Trigger finger of right hand; Translations: [Trigger finger, unspecified finger] 06-21-2024 Episodic Other fractures (6 sources) Compression fracture of lumbar spine; Translations: [Wedge compression fracture of first lumbar vertebra, initial encounter for closed fracture] 11-23-2024 Episodic Comment on above: Patient is willing t o self pay to get MRI ELIZABETH Other fractures (1 source) Wedge compression fracture of first lumbar vertebra, initial encounter for closed fracture; Translations: [Wedge compression fracture of first lumbar vertebra, initial encounter for closed fracture] Onset: 12-01-2024 Episodic Other lower respiratory disease (12 sources) Dyspnea on exertion; Translations: [Other forms of dyspnea] 09-29-2024 Episodic Other non-traumatic joint disorders (5 sources) Shoulder pain; Translations: [Pain in right shoulder] 12-19-2020 Episodic Other non-traumatic joint disorders (10 sources) Pain in right shoulder; Translations: [Pain in joint, shoulder region] Episodic Other nutritional; endocrine; and metabolic disorders (20 sources) H/O: hypothyroidism; Translations: [Personal history of other endocrine, nutritional and metabolic disease] 03-01-2013 Episodic Other nutritional; endocrine; and metabolic disorders (1 source) Personal history of other endocrine, nutritional and metabolic disease; Translations: [Personal history of other endocrine, metabolic, and immunity disorders] 07-01-2022 Episodic Melissa-; endo-; and myocarditis; cardiomyopathy (except that caused by tuberculosis or sexually transmitted disease) (13 sources) Hypertrophic cardiomyopathy; Translations: [Other hypertrophic cardiomyopathy] 03-01-2013 Chronic Spondylosis; intervertebral disc disorders; other back problems (20 sources) Acute low back pain; Translations: [Radiculopathy, site unspecified] Onset: 11-22-2024 Episodic Sprains and strains (8 sources) Low back strain; Translations: [Strain of muscle, fascia and tendon of lower back, initial encounter] 11-15-2024 Episodic Thyroid disorders (20 sources) Hypothyroidism; Translations: [Hypothyroidism, unspecified] Onset: 04-15-2024 Chronic Results Test Name Value Interpretation Reference Range Facility Magnetic resonance imaging r eportOrdered By: Kushal Gomez on 11-25-2024 Study report [facility] [address] [place] [address] [id number] Spine Lumbar (Routine) MR#: [id number] Acct: [id number] Name: LINA ORTA Rep #: [id number] : 1940 M 83 From: Dieter Gomez MD PCP: Dr. Luna Flaherty, DO Status: RE G CLI Study:Spine Lumbar (Routine) Date of Exam: 11/25/24 Exam# [id number] Ordering Dr: Mita Feliciano DISH MACHINE OPERATOR-C PROCEDURE: MRI SPINE LUMBAR (ROUTINE) 11/25/2024 REASON FOR EXAM: BACK PAIN TECHNIQUE: Procedure Code: MRISPL Modality: MR Procedure: SPINE LUMBAR (ROUTINE) Multiplanar and multisequential MRI of the lumbar spine was performed without contrast. COMPARISON: Radiographs 11/15/2024, 08/14/2021. FINDINGS: Acute-subacute superior endplate compression fracture of L1, with minimal less than 50% height loss. No retropulsion. Remaining vertebral bodies are preserved in height. No significant subluxation, although there is straightening of the normal lumbar lordosis. Subcentimeter T1 hypointense lesion at the inferior endplate of L2 appears most compatible with a degenerative subchondral cyst/geode. Multilevel spondylotic changes with varying degrees of disc desiccation and narrowing, degenerative endplate marrow signal changes, anterior endplate osteophytosis, and hypertrophic facet arthropathy. Conus medullaris appears normal in signal and morphology, terminating at L1-2. Normal appearance of the cauda equina. No significant abnormality appreciated within the visualized paravertebral soft tissues. Multiple bilateral small simple appearing renal cysts. T12-L1: Dorsal annular disc bulge indenting the ventral thecal sac, without substantial spinal canal or neural foraminal narrowing. L1-2: Dorsal disc bulge indents the ventral thecal sac, without substantial spinal canal or neural foraminal narrowing. L2-3: Dorsal disc bulge and ligamentum flavum/facet hypertrophy results in moderate spinal canal stenosis, with crowding of the cauda equina. Mild bilateral neural foraminal narrowing. L3-4: Trace degenerative grade 1 anterolisthesis of L3 on L4, with partially uncovered dorsal disc bulge and ligamentum flavum/facet hypertrophy results in advanced spinal canal stenosis with focal impingement of the cauda equina. Moderate bilateral neural foraminal narrowing, worse on the right. L4-5: No significant disc bulge, spinal canal or foraminal narrowing. L5-S1: Minimal dorsal annular disc bulging. No spinal canal narrowing. Mild bilateral neural foraminal narrowing. MRI/Spine Lumbar (Routine) IMPRESSION: Acute-subacute superior endplate compression fracture of L1, with minimal heightloss and no retropulsion. This fracture was noted on 11/15/2024 radiographs, but is new since 07/10/2022. Multilevel spondylotic changes, as described above. Moderate-advanced spinal canal stenosis at L2-3 and L3-4, with crowding/impingement of the cauda equina at these levels. Neural foraminal narrowing is most advanced bilaterally at L3-4. More mild elsewhere. Reading Location: [id number] CC: MANJU Feliciano; Dr. Luna Flaherty, DO ~ Leather Drier: Signed [facility] Spine Lumbar (Routine)on Spine Lumbar (Routine) [facility] [address] [place] [address] Spine Lumbar (Routine) MR#: [id number] Acct: [id number] Name: LINA ORTA Rep #: [id number] : 1940 M 83 From: Kushal Gomez MD PCP: Dr. Luna Flaherty, Status: REG CLI Study: Spine Lumbar (Routine) Date of Exam: 11/25/24 Exam# [id number] Ordering Dr: Mita Feliciano DISH MACHINE OPERATOR-C PROCEDURE: MRI SPINE LUMBAR (ROUTINE) 11/25/2024 REASON FOR EXAM: BACK PAIN TECHNIQUE: Procedure Code: MRISPL Modality: MR Procedure: SPINE LUMBAR (ROUTINE) Multiplanar and multisequential MRI of the lumbar spine was performed without contrast. COMPARISON: Radiographs 11/15/2024, 08/14/2021. FINDINGS: Acute-subacute superior endplate compression fracture of L1, with minimal less than 50% height loss. No retropulsion. Remaining vertebral bodies are preserved in height. No significant subluxation, although there is straightening of the normal lumbar lordosis. Subcentimeter T1 hypointense lesion at the inferior endplate of L2 appears most compatible with a degenerative subchondral cyst/geode. Multilevel spondylotic changes with varying degrees of disc desiccation and narrowing, degenerative endplate marrow signal changes, anterior endplate osteophytosis, and hypertrophic facet arthropathy. Conus medullaris appears normal in signal and morphology, terminating at L1-2. Normal appearance of the cauda equina. No significant abnormality appreciated within the visualized paravertebral soft tissues. Multiple bilateral small simple appearing renal cysts. T12-L1: Dorsal annular disc bulge indenting the ventral thecal sac, without substantial spinal canal or neural foraminal narrowing. L1-2: Dorsal disc bulge indents the ventral thecal sac, without substantial spinal canal or neural foraminal narrowing. L2-3: Dorsal disc bulge and ligamentum flavum/facet hypertrophy results in moderate spinal canal stenosis, with crowding of the cauda equina. Mild bilateral neural foraminal narrowing. L3-4: Trace degenerative grade 1 anterolisthesis of L3 on L4, with partially uncovered dorsal disc bulge and ligamentum flavum/facet hypertrophy results in advanced spinal canal stenosis with focal impingement of the cauda equina. Moderate bilateral neural foraminal narrowing, worse on the right. L4-5: No significant disc bulge, spinal canal or foraminal narrowing. L5-S1: Minimal dorsal annular disc bulging. No spinal canal narrowing. Mild bilateral neural foraminal narrowing. MRI/Spine Lumbar (Routine) IMPRESSION: Acute-subacute superior endplate compression fracture of L1, with minimal height loss and no retropulsion. This fracture was noted on 11/15/2024 radiographs, but is new since 07/10/2022. Multilevel spondylotic changes, as described above. Moderate-advanced spinal canal stenosis at L2-3 and L3-4, with crowding/impingement of the cauda equina at these levels. Neural foraminal narrowing is most advanced bilaterally at L3-4. More mild elsewhere. Reading Location: [id number] CC: DISH MACHINE OPERATORYesica Feliciano; Dr. Luna Flaherty DO Leather Drier: Signed Normal [facility] Internal Medicine Office Vis iton 11-23-2024 Internal Medicine Office Visit [facility] Internal Medicine [facility] [place] [address] [place] [address] OFFICE VISIT Date of Service: 11/23/24 MR#: [id number] Acct: [id number] Name: LINA ORTA Rep #: [id number] : 1940 Provider: Dr. Luna wood DO Age/Sex: 83/M [place] [facility] [place]: Signed Intake Vital Signs 09/29/24 14:17 11/15/24 12:10 11/23/24 10:48 Height 6 ft 6 ft 6 ft Weight: 170 lb BMI 23.0 BP 152/84 H Blood Pressure Location Lt brachial Position Sitting Respiration 16 Pulse 90 Pulse Source Monitor Temp 97.9 F Temp Source Temporal Pulse Oximetry (%) 98 Oxygen Delivery Method room air Intake Visit Reasons: BACK PAIN Chief Complaint: Back Pain Cutter Down Required: No Is patient in pain?: Yes (lumbar back) Pain scale (1-10): 3 Allergies meloxicam (From Mobic) Allergy (Severe, Verified 11/23/24 10:34) unknown pentazocine (From Talwin) Allergy (Severe, Verified 11/23/24 10:34) unknown metaxalone Adverse Reaction (Intermediate, Verified 11/23/24 10:47) Nausea Medications ???Medication ???Instructions ???Recorded ???Confirmed ???Type blood sugar diagnostic (True #100 ea 02/11/23 11/23/24 Rx Metrix Glucose Test Strip) blood-glucose meter #1 ea 02/11/23 11/23/24 Rx atorvastatin 20 mg tablet 20 mg PO QDAY #90 tabs 09/29/24 Rx lancets 30 gauge (Unilet Lancets) #100 ea 09/29/24 11/23/24 Rx levothyroxine 100 mcg tablet 100 mcg PO DAILY #100 tabs 5 11/23/24 Rx metformin 500 mg tablet,extended 500 mg PO BID #180 tabs 09/29/24 0 11/23/24 Rx release 24 hr omeprazole 20 mg capsule,delayed 20 mg PO DAILY #100 caps 09/29/24 11/23/24 Rx release pen needle, diabetic 29 gauge x #100 ea 09/29/24 11/23/24 Rx 1/2 (CareFine Pen Needle) sitagliptin phosphate 100 mg 100 mg PO DAILY #100 tabs 09/29/24 11/23/24 Rx tablet (Januvia) valsartan 160 1 tab PO DAILY #90 TABLETS 5 11/23/24 Rx mg-hydrochlorothiazi de 12.5 mg tablet insulin glargine 100 unit/mL (3 40 unit (0.4 mL) subcut QHS #15 mL 11/08/24 11/23/24 Rx mL) subcutaneous pen (Lantus Solostar U-100 Insulin) Have you fallen in the past year?: No Nurse's Note: Pt inquiring about stress test results as he was never notifed. It appears it came through other provider. Pt is here for continued back pain, [facility]. Told xray was WNL. Pt states the pain is staying the same and si nce it has been ongoing 24 days despite treatment of accupuncture, tens, chiropractor, metaloxone, and cyclobenzaprine. Pt states the pain is only alleviated by laying flat w/ his recliner and the pain goes to a 1/10. It is always painful. Pt states currently he is at a 3/10. When he moves at all or stands it is a 20/20 Pt denies numbness, or tingling, or radiating pain into other parts of body. [facility] Medical History Lumbar strain Low back pain Shingles (herpes zoster) polyneuropathy Acute urticaria Gastroenteritis GERD (gastroesophageal reflux disease) Hypothyroidism Surgical History History of back surgery History of left knee surgery History of appendectomy History of cardiac cath Family History Father Heart disease Mother CVA (cerebral vascular accident) Hypertension Breast cancer Social History Smoking Status: Former smoker how long ago did patient quit smokin alcohol intake: never HPI HPI Chief Complaint: Back Pain Details: LINA ORTA, is a 83 M who presents to the office today for severe back pain. About 3 weeks ago he bent over and had a severe pain in his back. In spite of the severity of the pain he went on a cruise to [place] but was in a wheelchair all the time because he was unable to walk. On the cruise ship he had treatments of acupuncture and cupping but they did not help and when he returned he saw chiropractor. The first treatment was exquisitely painful the patient said it was even more severe than the pain he was having but the last 2 treatments were not so bad. The chiropractor told him that his leg length was evened off but has not done anything for the pain. Reviewing his x-rays it was reported by the radiologist that he has some changes in the superior endplate of L1 which looks like it could be an acute compression fracture. ROS Const Constitutional: No body ache, chills, excessive sweating, fatigue, fever(s), frequent falls, headache(s), snoring, weakness, sleep problems or change in appetite Eyes Eyes: No blurry vision, change in vision, eye pain or Light sens (more content not included)... Normal [facility] Lumbar Spine 2 or 3 Viewson 11-15-2024 Lumbar Spine 2 or 3 Views [facility] Imaging Services [address] [place], [place] [id number] Lumbar Spine 2 or 3 Views MR#: [id number] Acct: [id number] Name: LINA ORTA Rep #: [id number] : 1940 M 83 From: Camron logan MD PCP: Dr. Luna Flaherty DO Status: REG CLI Study: Lumbar Spine 2 or 3 Views Date of Exam: Exam# [id number] Ordering Dr: Victor M Gates PROCEDURE: LUMBAR SPINE 2 OR 3 VIEWS 11/15/2024 REASON FOR EXAM: LOWER RIGHT BACK PAIN TECHNIQUE: Procedure Code: RADSPLL Modality: DX Procedure: LUMBAR SPINE 2 OR 3 VIEWS COMPARISON: Prior study dated August 14, 2021. FINDINGS: Vertebrae: Multilevel spondylosis. Loss of height of the superior endplate of the L1 vertebrae. This is new as compared to prior study. Discs: Multilevel disc space narrowing worse at the L2-L3 and L3-L4 levels. Facet joint osteoarthritis. Alignment: Loss of the normal lumbar lordosis. Other: Aortic calcification. Large amount of fecal material is seen in the colon. RAD/Lumbar Spine 2 or 3 Views IMPRESSION: ADVANCED DEGENERATIVE CHANGES OF THE LUMBAR SPINE. Reading Location: [facility] CC: Dr. Luna Flaherty DO; MARIAA Garcia Leather Drier: Signed Normal [facility] Urgent Care Visit Reporton 0 11-15-2024 Urgent Care Visit Report [facility] [address], [address] [place], [place] [address] OFFICE VISIT Date of Service: 11/15/24 MR#: [id number] Acct: [id number] Name: LINA ORTA Rep #: [id number] : 1940 Provider: MARIAA Garcia Age/Sex: 83/M [place] [facility] [place] Status: Signed Intake Vital Signs 09/29/24 14:17 11/15/24 12:10 Height 6 ft 6 ft Weight: 175 lb BMI 23.7 BP 148/68 H Blood Pressure Location Lt brachial Position Sitting Pulse 100 Pulse Source Monitor Temp 97.6 F L Temp Source Oral Pulse Oximetry (%) 97 Oxygen Delivery Method room air Intake Visit Reasons: back pain Chief Complaint: Back Pain Accompanied by: Caregiver Allergies meloxicam (From Mobic) Allergy (Severe, Verified 11/15/24 12:02) unknown pentazocine (From Talwin) Allergy (Severe, Verified 11/15/24 12:02) unknown Medications ???Medication ???Instructions ???Recorded ???Confirmed ???Type blood sugar diagnostic (True #100 ea 02/11/23 09/29/24 Rx Metrix Glucose Test Strip) blood-glucose meter #1 ea 02/11/23 09/29/24 Rx atorvastatin 20 mg tablet 20 mg PO QDAY #90 tabs 09/29/24 Rx lancets 30 gauge (Unilet Lancets) #100 ea 09/29/24 09/29/24 Rx levothyroxine 100 mcg tablet 100 mcg PO DAILY #100 tabs 5 11/15/24 Rx metformin 500 mg tablet,extended 500 mg PO BID #180 tabs 09/29/24 0 11/15/24 Rx release 24 hr omeprazole 20 mg capsule,delayed 20 mg PO DAILY #100 caps 09/29/24 11/15/24 Rx release pen needle, diabetic 29 gauge x #100 ea 09/29/24 09/29/24 Rx 1/2 (CareFine Pen Needle) sitagliptin phosphate 100 mg 100 mg PO DAILY #100 tabs 09/29/24 11/15/24 Rx tablet (Januvia) valsartan 160 1 tab PO DAILY #90 TABLETS 5 11/15/24 Rx mg-hydrochlorothiazi de 12.5 mg tablet insulin glargine 100 unit/mL (3 40 unit (0.4 mL) subcut QHS #15 mL 11/08/24 11/15/24 Rx mL) subcutaneous pen (Lantus Solostar U-100 Insulin) metaxalone 800 mg tablet 800 mg PO TID PRN muscle pain #30 11/15/24 11/15/24 Rx tabs Have you fallen in the past year?: No Nurse's Note: Back pain X 3 weeks ago after picking up a case of water. Went on cruise and had 10 treatments of acupuncture. Saw chiropractor, no relief. [facility] Medical History (Updated 11/15/24 @ 13:17 by Victor M LEROY, PA) Lumbar strain Low back pain Shingles (herpes zoster) polyneuropathy Acute urticaria Gastroenteritis GERD (gastroesophageal reflux disease) Hypothyroidism Surgical History History of back surgery History of left knee surgery History of appendectomy History of cardiac cath Family History Father Heart disease Mother CVA (cerebral vascular accident) Hypertension Breast cancer Social History Smoking Status: Former smoker how long ago did patient quit smokin alcohol intake: never HPI HPI Chief Complaint: Back Pain Details: LINA ORTA, is a 83 M who presents to the office today [facility] for approximately 3-week history of persistent right low back pain after bending at waist to fiber picker a case of water. Patient notes since time of the injury the moderate aching discomfort has persisted, noting pain is aggravated to touch and with flexion/extension at the waist or with prolonged sitting, alleviated minimally with cyclobenzaprine as previously prescribed (taking last tablet earlier this morning). Chiropractor x 3 sessions and acupuncture x 10 sessions since exacerbation of pain 3 weeks ago, with minimal to no relief. No caudal or radicular complaints upon questioning. No other associated symptoms and no other alleviating/aggravat ing factors. PMH: Lumbar fusion in 1959, he is so states. ROS Const Constitutional: No other (As above) Exam Const General: cooperative, healthy appearing and no acute distress Nutritional Appearance: average body habitus Orientation: alert and awake Chest Chest palpation inspection: normal inspection of the chest Resp Effort Inspection: normal respiratory effort and able to speak in complete sentences Cardio Rate: regular rate Pulses: radial pulses present GI Inspection: normal to inspection Musc Thoracic/Lumbar Spine: straight leg raise negative bilaterally, pain with thoraco-lumbar ROM with forward flexion, with lateral flexion to the right, with lateral flexion to the left, with rotation to the right and with rotation to the left, paraspinal tenderness on the right and no lumbar spinal tenderness Skin General: no rashes or lesions noted Neuro General: patient alert, patient awake and gait normal Cognition: normal cognition Speech: speech normal G (more content not included)... Normal [facility] Cardiovascular stress test r eportOrdered By: Homer Grey on 10-19-2024 Study report [facility] Cardiovascular Services [address] [place] [address] MR#: [id number] Acct: [id number] Name: LINA ORTA Rep #: [id number] : 1940 83 From: Homer Grey MD Primary Care: Dr. Luna Flaherty DO Sta tus: REG CLI Referring Dr: Luna Flaherty DO Sex: M C Stress Test Report Exercise stress test. 83-year-old man with a history of chest pain. Stress protocol: Resting EKG demonstrates normal sinus rhythm with a rate of 70 bpm resting bloodpressure is 158/88 mmHg. T wave inversions are noted V3 through V6. The patientexercised according to the regular Rogers protocol for a total duration of 3-1/2 minutes attaining a maximum heart rate of 144 bpm which was 105% % of maximum predicted heart rate; the maximum workload was 5.8 metabolic equivalents. At rest there were no ST or T wave changes noted to suggest ischemia and at peak exercise approximately 1.5 to [address] depression were noted in leads II, III and aVF V4 V5 and V6 suggestive of ischemia. The patient also developed some chest tightness with exertion which resolved with rest. The peakblood pressure was 168/64 mmHg. Rate-pressure product was 23,600. Conclusion: Exercise stress test with EKG criteria suggestive of ischemia at a moderate workload Clinical angina noted. 10/19/24 182 Date _ Homer Grey MD CC: Dr. Luna Flaherty, DO ~ Date Dictated: 10/19/241825 Date Transcribed: 10/19/241825 Leather Drier: [place] Signed [facility] Work Phone: Stress Reporton 10-19-2024 Stress Report [facility] [address] [place] [address] MR#: [id number] Acct: [id number] Name: LINA ORTA Rep #: [id number] : 1940 83 From: Homer Grey MD Primary Care: Dr. Luna Flaherty, Status: REG [facility] Referring Dr: Luna Flaherty DO Sex: M C Stress Test Report Exercise stress test. 83-year-old man with a history of chest pain. Stress protocol: Resting EKG demonstrates normal sinus rhythm with a rate of 70 bpm resting blood pressure is 158/88 mmHg. T wave inversions are noted V3 through V6. The patient exercised according to the regular Rogers protocol for a total duration of 3-1/2 minutes attaining a maximum heart rate of 144 bpm which was 105% % of maximum predicted heart rate; the maximum workload was 5.8 metabolic equivalents. At rest there were no ST or T wave changes noted to suggest ischemia and at peak exercise approximately 1.5 to [address] depression were noted in leads II, III and aVF V4 V5 and V6 suggestive of ischemia. The patient also developed some chest tightness with exertion which resolved with rest. The peak blood pressure was 168/64 mmHg. Rate-pressure product was 23,600. Conclusion: Exercise stress test with EKG criteria suggestive of ischemia at a moderate workload Clinical angina noted. 10/19/241828 Homer Grey MD CC: Dr. Luna Flaherty, DO Date Dictated: 10/19/241825 Date Transcribed: 10/19/241825 Leather Drier: CO Signed Normal [facility] Abdomen Limitedon 10-04-2024 Abdomen Limited [facility] Imaging Services [address] [place] [address] Abdomen Limited MR#: [id number] Acct: [id number] Name: LINA ORTA Rep #: [id number] : 1940 M 83 From: Camron logan MD PCP: Dr. Luna Flaherty, DO Status: REG CLI Study: Abdomen Limited Date of Exam: 10/04/24 Exam# [id number] Ordering Dr: Luna Flaherty DO PROCEDURE: ABDOMEN LIMITED 10/04/2024 REASON FOR EXAM: NAUSEA WITH FATTY FOODS COMPARISON: None FINDINGS: Liver: Diffusely echogenic suggesting fatty infiltration. The liver measures 16.1 cm. Gallbladder: There are 2, small polyps adherent to the gallbladder wall. The larger measures 6 mm x 6 mm x 4 mm. No evidence of gallstones. Common bile duct: Normal measuring 5.1 mm . Pancreas: Visualized portions are unremarkable. The distal body and tail are obscured by bowel gas. Other: Visualized portions of the right kidney are unremarkable. No right upper quadrant ascites. US/Abdomen Limited IMPRESSION: No evidence of gallstones. There are 2, small gallbladder polyps adherent to the gallbladder wall. Fatty infiltration of the liver. Reading Location: [facility] CC: Dr. Luna Flaherty DO Leather Drier: Signed Normal [facility] Internal Medicine Office Vis ito 09-29-2024 Internal Medicine Office Visit [facility] [facility] [place] [address] OFFICE VISIT Date of Service: 09/29/24 MR#: [id number] Acct: [id number] Name: LINA ORTA Rep #: [id number] : 1940 Provider: Dr. Luna wood DO Age/Sex: 83/M [place] [facility] [place] Status: Signed Intake Vital Signs 06/21/24 09:37 09/29/24 14:17 Height 6 ft 6 ft Weight: 178 lb 4 oz 175 lb BMI 24.1 23.7 BP 134/68 H 120/60 Blood Pressure Location Lt brachial Lt brachial Position Sitting Sitting Respiration 16 16 Pulse 76 66 Pulse Source Monitor Monitor Temp 96.7 F L 97.5 F L Temp Source Temporal Temporal Pulse Oximetry (%) 95 95 Oxygen Delivery Method room air room air Intake Visit Reasons: 3 m fu Chief Complaint: 3 M FU Cutter Down Required: No Accompanied by: Self Is patient in pain?: No Allergies meloxicam (From Mobic) Allergy (Severe, Verified 09/29/24 14:18) unknown pentazocine (From Talwin) Allergy (Severe, Verified 09/29/24 14:18) unknown Medications ???Medication ???Instructions ???Recorded ???Confirmed ???Type blood sugar diagnostic (True #100 ea 02/11/23 09/29/24 Rx Metrix Glucose Test Strip) blood-glucose meter #1 ea 02/11/23 09/29/24 Rx ondansetron 4 mg disintegrating 4 mg PO Q8H PRN nausea and 5 09/29/24 Rx tablet vomiting #14 tabs insulin glargine 100 unit/mL (3 40 unit (0.4 mL) subcut DAILY #15 09/14/24 09/29/24 Rx mL) subcutaneous pen (Lantus mL Solostar U-100 Insulin) atorvastatin 20 mg tablet 20 mg PO QDAY #90 tabs 09/29/24 Rx lancets 30 gauge (Unilet Lancets) #100 ea 09/29/24 09/29/24 Rx levothyroxine 100 mcg tablet 100 mcg PO DAILY #100 tabs 5 09/29/24 Rx metformin 500 mg tablet,extended 500 mg PO BID #180 tabs 09/29/24 0 09/29/24 Rx release 24 hr omeprazole 20 mg capsule,delayed 20 mg PO DAILY #100 caps 09/29/24 09/29/24 Rx release pen needle, diabetic 29 gauge x #100 ea 09/29/24 09/29/24 Rx 1/2 (CareFine Pen Needle) sitagliptin phosphate 100 mg 100 mg PO DAILY #100 tabs 09/29/24 09/29/24 Rx tablet (Januvia) valsartan 160 1 tab PO DAILY #90 TABLETS 5 09/29/24 Rx mg-hydrochlorothiazi de 12.5 mg tablet Have you fallen in the past year?: No Nurse's Note: 3 M FU [facility] Medical History Shingles (herpes zoster) polyneuropathy Acute urticaria Gastroenteritis GERD (gastroesophageal reflux disease) Hypothyroidism Surgical History History of back surgery History of left knee surgery History of appendectomy History of cardiac cath Family History Father Heart disease Mother CVA (cerebral vascular accident) Hypertension Breast cancer Social History Smoking Status: Former smoker how long ago did patient quit smokin alcohol intake: never HPI HPI Chief Complaint: 3 M FU Details: LINA ORTA, is a 83 M who presents to the office today for his 3-month follow-up exam. He relates a history of mowing his grass a couple of months ago and developing a pressure feeling in the chest. He tried mowing his grass again and developed the same feeling so you hired a [employer] service to do mowing for him. He is also noticed the same feeling when he goes up a flight of stairs. He has had a stress test but it has been more than 10 years ago. In addition to the symptoms he is having difficulty when he eats a fairly large meal with a lot of fat content of developing nausea and discomfort in the abdomen. He says there is similar symptoms to what his had with her gallstones except he does not have as much pain. ROS Const Constitutional: No body ache, chills, excessive sweating, fatigue, fever(s), frequent falls, headache(s), snoring, weakness, weight change, sleep problems or change in appetite Eyes Eyes: No blurry vision, change in vision, eye pain or Light sensitivity ENT ENT: No abnormal hearing, ear or mastoid pain, tinnitus, nasal congestion, headache(s), neck pain or sore throat Resp Respiratory: No cough, shortness of breath, snoring or wheezing Cardio Cardiology: No chest pain at rest, chest pain with exertion, excessive sweating, shortness of breath, lightheadedness, orthopnea or palpitations Gastro GI: No abdominal pain, change in bowel habits, constipation, cramping, diarrhea, nausea/dyspepsia or vomiting Genitourinary Male: No burning urination, painful urination, urinary incontinence or urinary frequency Musc Musculoskeletal: No abnormal gait, joint pain, back pain, limited range of motion, neck pain, numbness or tingling Skin Skin: No dry skin, redness, lesions, itchy eyes, rash or wounds Ne (more content not included)... Normal [facility] Laboratory - Hematology and Cell countsOrdered By: Luna Flaherty on 09-29-2024 HbA1c (Bld) [Mass fraction] 7.2 % High 4.2-6.3 [facility] Internal Medicine Office Vis iton 06-21-2024 Internal Medicine Office Visit [facility] [address] [place] [address] [place] [address] OFFICE VISIT Date of Service: 06/21/24 MR#: [id number] Acct: [id number] Name: LINA ORTA Rep #: [id number] : 1940 Provider: Dr. Luna Ross own, DO Age/Sex: 83/M [place] [facility] [place] Status: Signed Intake Vital Signs 03/22/24 09:36 06/21/24 09:37 Height 6 ft 6 ft Weight: 178 lb 178 lb 4 oz BMI 24.1 24.1 BP 164/70 H 134/68 H Blood Pressure Location Lt brachial Lt brachial Position Sitting Sitting Respiration 16 16 Pulse 64 76 Pulse Source Monitor Monitor Temp 97.5 F L 96.7 F L Temp Source Temporal Temporal Pulse Oximetry (%) 99 95 Oxygen Delivery Method room air room air Intake Visit Reasons: 3 M FU Chief Complaint: 3 M FU Cutter Down Required: No Accompanied by: Self Is patient in pain?: No Allergies meloxicam (From Mobic) Allergy (Severe, Verified 06/21/24 09:33) unknown pentazocine (From Talwin) Allergy (Severe, Verified 06/21/24 09:33) unknown Medications ???Medication ???Instructions ???Recorded ???Confirmed ???Type blood sugar diagnostic (True #100 ea 02/11/23 06/21/24 Rx Metrix Glucose Test Strip) blood-glucose meter #1 12/13/23 04/22/25 Rx atorvastatin 20 mg tablet 20 mg PO QDAY #90 tabs 03/22/24 Rx insulin glargine 100 unit/mL (3 40 unit (0.4 mL) subcut DAILY #15 03/22/24 06/21/24 Rx mL) subcutaneous pen (Lantus mL Solostar U-100 Insulin) lancets 30 gauge (Unilet Lancets) #100 ea 03/22/24 06/21/24 Rx levothyroxine 100 mcg tablet 100 mcg PO DAILY #100 tabs 5 06/21/24 Rx metformin 500 mg tablet,extended 500 mg PO BID #180 tabs 03/22/24 0 06/21/24 Rx release 24 hr omeprazole 20 mg capsule,delayed 20 mg PO DAILY #100 caps 03/22/24 06/21/24 Rx release ondansetron 4 mg disintegrating 4 mg PO Q8H PRN nausea and 5 06/21/24 Rx tablet vomiting #14 tabs sitagliptin phosphate 100 mg 100 mg PO DAILY #100 tabs 03/22/24 06/21/24 Rx tablet (Januvia) valsartan 160 1 tab PO DAILY #90 TABLETS 5 06/21/24 Rx mg-hydrochlorothiazi de 12.5 mg tablet pen needle, diabetic 29 gauge x #100 ea 03/29/24 06/21/24 Rx 1/2 (CareFine Pen Needle) Have you fallen in the past year?: No PFSH Medical History Shingles (herpes zoster) polyneuropathy Acute urticaria Gastroenteritis GERD (gastroesophageal reflux disease) Hypothyroidism Surgical History History of back surgery History of left knee surgery History of appendectomy History of cardiac cath Family History Father Heart disease Mother CVA (cerebral vascular accident) Hypertension Breast cancer Social History Smoking Status: Former smoker how long ago did patient quit smokin alcohol intake: never HPI HPI Chief Complaint: 3 M FU Details: LINA ORTA, is a 83 M who presents to the office today for follow-up on his diabetes. He voices no complaints but does say that he is up to about 50 units of the Lantus in the evening to maintain proper blood sugar control. He has had no hypoglycemic spells. ROS Const Constitutional: No body ache, excessive sweating, fatigue, fever(s), frequent falls, headache(s), snoring, weakness, weight change, sleep problems or change in appetite Eyes Eyes: No blurry vision, change in vision, eye pain or Light sensitivity ENT ENT: No abnormal hearing, ear or mastoid pain, tinnitus, nasal congestion, headache(s), neck pain or sore throat Resp Respiratory: No cough, shortness of breath, snoring or wheezing Cardio Cardiology: No chest pain at rest, chest pain with exertion, excessive sweating, shortness of breath, dyspnea on exertion, lightheadedness, orthopnea or palpitations Gastro GI: No abdominal pain, change in bowel habits, constipation, cramping, diarrhea, nausea/dyspepsia or vomiting Genitourinary Male: No burning urination, painful urination, urinary incontinence, urinary frequency or blood in urine Musc Musculoskeletal: No abnormal gait, joint pain, back pain, limited range of motion, neck pain, numbness, stiffness, tingling or Arthritis Skin Skin: No dry skin, redness, lesions, itchy eyes, rash or wounds Neuro Neurology: No abnormal gait, abnormal hearing, abnormal speech, dizziness, weakness, frequent falls, headache(s), memory loss, numbness or tingling Psych Psychiatric: No anxiety, No change in appetite, No depression, No memory loss and No Thoughts of harming yourself/Others Endo Endocrine: No cold intolerance, excessive sweating, fatigue, flushing, heat intolerance, increased thirst/drinking, increased hunger or pako (more content not included)... Normal [facility] Laboratory - Hematology and Cell countsOrdered By: Luna Flaherty on 06-21-2024 HbA1c (Bld) [Mass fraction] 6.9 % High 4.2-6.3 [facility] Comprehensive Metabolic Prof ilon 03-22-2024 Albumin [Mass/Vol] 3.7 g/dL Normal 3.2-5.0 [facility] Comment on above: Performed By: #### L 500.2860, L500.4100 #### [facility] Laboratory [address] [place], [address] Albumin/Globulin [Mass ratio] 0.7 {ratio} Low 0.9-2.4 [facility] Comment on above: Performed By: #### L 500.4050, L500.4100 #### [facility] Laboratory [address] [place], [address] ALK P 68 U/L Normal 45-117 [facility] Comment on above: Performed By: #### L [id number], L500.4100 #### [facility] [address] [place], [address] ALT [Catalytic activity/Vol] 36 U/L Normal 16-61 [facility] Comment on above: Performed By: #### L 500.4050, L500.4100 #### [facility] [address] [place], [address] AST [Catalytic activity/Vol] 23 U/L Normal 15-37 [facility] Comment on above: Performed By: #### L [id number], L500.4100 #### [facility] [address] [place], [address] Bilirubin [Mass/Vol] 0.60 mg/dL Normal 0.20-1.00 [facility] Comment on above: Result Comment: For patients on eltrombopag therapy, use of Dimension Batson TBIL is not recommended. Performed By: #### L 500.4050, L500.4100 #### [facility] [address] [place], [address] BUN/CRE 13.2 RATIO Normal 10-20 [facility] Comment on above: Performed By: #### L [id number], L500.4100 #### [facility] [address] [place], [address] CA,Total 10.2 mg/dL High 8.5-10.1 [facility] Comment on above: Performed By: #### L [id number], L500.4100 #### [facility] [address] [place], [address] Chloride [Moles/Vol] 103 mmol/L Normal 98-107 [facility] Comment on above: Performed By: #### L 500.4050, L500.4100 #### [facility] [address] [place], [address] CO2 [Moles/Vol] 25.0 mmol/L Normal 21.0-32.0 [facility] Comment on above: Performed By: #### L 500.4050, L500.4100 #### [facility] [address] [place], [address] Creatinine [Mass/Vol] 1.52 mg/dL High 0.70-1.30 [facility] Comment on above: Result Comment: The validity of the calculated GFR GFRAA in patients over 70 years has not been determined. Clinical correlation is essential. Performed By: #### L 500.4050, L500.4100 #### [facility] [address] [place], [address] EST GFR - AA 57 mL/min Low >60 [facility] Comment on above: Result Comment: Afri can Mozamb[place] GFR Calc Performed By: #### L 500.4050, L500.4100 #### [facility] [address] [place], [address] GAP 9 Normal 5-15 [facility] Comment on above: Performed By: #### L 500.4050, L500.4100 #### [facility] [address] [place], [address] GFR/1.73 sq M.predicted among non-blacks MDRD (S/P/Bld) [Vol rate/Area] 47 mL/min/{1.73_m2} Low >60 [facility] Comment on above: Result Comment: Non- GFR Calc Performed By: #### L 500.4050, L500.4100 #### [facility] [address] [place], [address] Globulin (S) [Mass/Vol] 5.4 g/dL High 2.2-4.2 [facility] Comment on above: Performed By: #### L 500.4050, L500.4100 #### [facility] Laboratory [address] [place], [address] Glucose [Mass/Vol] 106 mg/dL Normal 74-106 [facility] Comment on above: Result Comment: Fast ing Glucose result from 100 to 125 mg/dL suggests IMPAIRED HOMEOSTASIS per A.D.A. criteria. Performed By: #### L 500.4050, L500.4100 #### [facility] [address] [place], [address] Potassium [Moles/Vol] 4.7 mmol/L Normal 3.5-5.1 [facility] Comment on above: Performed By: #### L [id number], L500.4100 #### [facility] [address] [place], [address] Sodium [Moles/Vol] 137 mmol/L Normal 136-145 [facility] Comment on above: Performed By: #### L [id number], L500.4100 #### [facility] [address] [place], [address] T PROT 9.1 g/dL High 6.4-8.2 [facility] Comment on above: Performed By: #### L [id number], L500.4100 #### [facility] [address] [place], [address] Urea nitrogen [Mass/Vol] 20 mg/dL High 7-18 [facility] Comment on above: Performed By: #### L [id number], L500.4100 #### [facility] [address] [place], [address] Internal Medicine Office Vis iton 03-22-2024 Internal Medicine Office Visit [facility] [address] [place] [address] OFFICE VISIT Date of Service: 03/22/24 MR#: [id number] Acct: [id number] Name: LINA ORTA Rep #: [id number] : 1940 Provider: Dr. Luna wood, DO Age/Sex: 83/M [place] [facility] [place]: Signed Intake Vital Signs 11/12/23 09:26 03/22/24 09:36 Height 6 ft 6 ft Weight: 173 lb 178 lb BMI 23.4 24.1 BP 142/68 H 164/70 H Blood Pressure Location Lt brachial Lt brachial Position Sitting Sitting Respiration 17 16 Pulse 80 64 Pulse Source Monitor Monitor Temp 97.8 F 97.5 F L Temp Source Temporal Temporal Pulse Oximetry (%) 98 99 Oxygen Delivery Method room air room air Intake Visit Reasons: 3 M FU Chief Complaint: 3 M FU Cutter Down Required: No Accompanied by: Self Is patient in pain?: No Allergies meloxicam (From Mobic) Allergy (Severe, Verified 03/22/24 09:29) unknown pentazocine (From Talwin) Allergy (Severe, Verified 03/22/24 09:29) unknown Medications ???Medication ???Instructions ???Recorded ???Confirmed ???Type blood sugar diagnostic (True #100 ea 02/11/23 03/22/24 Rx Metrix Glucose Test Strip) blood-glucose meter #1 ea 02/11/23 03/22/24 Rx pen needle, diabetic 29 gauge x #100 ea 05/13/23 03/22/24 Rx 1/2 (CareFine Pen Needle) atorvastatin 20 mg tablet 20 mg PO QDAY #90 tabs 03/22/24 03/22/24 Rx insulin glargine 100 unit/mL (3 40 unit (0.4 mL) subcut DAILY #15 03/22/24 03/22/24 Rx mL) subcutaneous pen (Lantus mL Solostar U-100 Insulin) lancets 30 gauge (Unilet Lancets) #100 ea 03/22/24 03/22/24 Rx levothyroxine 100 mcg tablet 100 mcg PO DAILY #100 tabs 03/22/24 03/22/24 Rx metformin 500 mg tablet,extended 500 mg PO BID #180 tabs 03/22/24 03/22/24 Rx release 24 hr omeprazole 20 mg capsule,delayed 20 mg PO DAILY #100 caps 03/22/24 03/22/24 Rx release ondansetron 4 mg disintegrating 4 mg PO Q8H PRN nausea and 03/22/24 03/22/24 Rx tablet vomiting #14 tabs sitagliptin phosphate 100 mg 100 mg PO DAILY #100 tabs 03/22/24 03/22/24 Rx tablet (Januvia) valsartan 160 1 tab PO DAILY #90 TABLETS 03/22/24 03/22/24 Rx mg-hydrochlorothiazi de 12.5 mg tablet Have you fallen in the past year?: No PFSH Medical History Shingles (herpes zoster) polyneuropathy Acute urticaria Gastroenteritis GERD (gastroesophageal reflux disease) Hypothyroidism Surgical History History of back surgery History of left knee surgery History of appendectomy History of cardiac cath Family History Father Heart disease Mother CVA (cerebral vascular accident) Hypertension Breast cancer Social History Smoking Status: Former smoker how long ago did patient quit smokin alcohol intake: never HPI HPI Chief Complaint: 3 M FU Details: LINA ORTA, is a 83 M who presents to the office today for a 3-month follow-up exam. He has changed his insurance companies and he needs his prescription sent into a new address. He is going to be heading to [place] tomorrow for a period of time and he really says he has been feeling quite well although not as active because of the cold weather. ROS Const Constitutional: No body ache, chills, excessive sweating, fatigue, fever(s), frequent falls, headache(s), snoring, weakness, weight change or change in appetite Eyes Eyes: No blurry vision, change in vision, eye pain or Light sensitivity ENT ENT: No abnormal hearing, ear or mastoid pain, tinnitus, nasal congestion, headache(s), neck pain or sore throat Resp Respiratory: No cough, shortness of breath, snoring or wheezing Cardio Cardiology: No chest pain at rest, chest pain with exertion, excessive sweating, dyspnea on exertion, lightheadedness, orthopnea or palpitations Gastro GI: No abdominal pain, change in bowel habits, constipation, cramping, diarrhea, nausea/dyspepsia or vomiting Genitourinary Male: No burning urination, painful urination, urinary incontinence or urinary frequency Musc Musculoskeletal: No abnormal gait, joint pain, back pain, limited range of motion, muscle weakness, neck pain or numbness Skin Skin: No dry skin, redness, lesions, itchy eyes, rash or wounds Neuro Neurology: No abnormal gait, abnormal hearing, weakness, frequent falls, headache(s), memory loss or numbness Psych Psychiatric: No anxiety, No change in appetite, No depression, No memory loss and No Thoughts of harming yourself/Others Endo Endocrine: No cold intolerance, excessive sweating, fatigue, flushing, heat intolerance, increased thirst/drinking, increased hunger or weight change Aller/Imm Allergy/Immuno (more content not included)... Normal [facility] Lipid Profileon 03-22-2024 Cholesterol [Mass/Vol] 93 mg/dL Normal 200 [facility] Comment on above: Result Comment: <200 mg/dL Desirable 200-240 mg/dL Borderline >240 mg/dL High Risk Performed By: #### L 500.4050, L500.4100 #### [facility] Laboratory [address] [place], [place], [id number] Cholesterol in HDL [Mass/Vol] 34 mg/dL Low [facility] Comment on above: Result Comment: The drugs N-Acetylcysteine and Metamizole may falsely depress this assay. Reference Range HDL <40 mg/dL Low HDL Cholesterol HDL >or= 60 mg/dL High HDL Cholesterol Performed By: #### L 500.4050, L500.4100 #### [facility] Laboratory [address] [place], [address] Cholesterol in LDL [Mass/Vol] 27 mg/dL Normal 0-130 [facility] Comment on above: Performed By: #### L 500.4050, L500.4100 #### [facility] [address] [place], [address] Cholesterol in VLDL [Mass/Vol] 32 mg/dL Normal 5-40 [facility] Comment on above: Performed By: #### L 500.4050, L500.4100 #### [facility] [address] [place], [address] Triglyceride [Mass/Vol] 161 mg/dL Normal [facility] Comment on above: Result Comment: The drugs N-Acetylcysteine and Metamizole may falsely depress this assay. Serum Triglycerides Reference Interval Normal <150 mg/dL Borderline high 150 - 199 mg/dL High 200 - 499 mg/dL Very High > or = 500 mg/dL Performed By: #### L 500.4050, L500.4100 #### [facility] [address] [place], [address] Microalb:Creat Ratio,Random URon 03-22-2024 Creatinine [Mass/Vol] 124.00 mg/dL Normal NO RANGE EST . [facility] Comment on above: Performed By: #### L 502.0250 #### [facility] [address] [place], [address] MALB:CRE 370.2 mg/g CRE High <30 mg/g CRE [facility] Comment on above: Performed By: #### L 502.0250 #### [facility] [address] [place], [address] MICROALBUMIN,UR 459.0 mg/L Normal NO RANGE EST. [facility] Comment on above: Performed By: #### L 502.0250 #### [facility] Laboratory [address] [place], [address] Basophil percentageOrdered B y: Luna Flaherty on 12-10-2022 Bilirubin [Mass/Vol] 0.70 mg/dL 0.20-1.00 [facility] Comment on above: For patients on eltr ombopag therapy, use of Dimension Batson TBIL is not recommended. Chloride [Moles/Vol] 100 mmol/L 98-107 [facility] Cholesterol [Mass/Vol] 107 mg/dL <200 [facility] Comment on above: <200 mg/dL Desirable 200-240 mg/dL Borderline >240 mg/dL High Risk Glucose [Mass/Vol] 168 mg/dL 74-106 [facility] Comment on above: Fasting Glucose resu lt greater than or equal to 126 mg/dL suggests DIABETES MELLITUS per A.D.A. criteria. Potassium [Moles/Vol] 4.2 mmol/L 3.5-5.1 [facility] Protein [Mass/Vol] 8.3 g/dL 6.4-8.2 [facility] Sodium [Moles/Vol] 133 mmol/L 136-145 [facility] Triglyceride [Mass/Vol] 124 mg/dL <199 [facility] Comment on above: The drugs N-Acetylcy steine and Metamizole may falsely depress this assay.Serum Triglycerides Reference Interval Normal <150 mg/dL Borderline high 150 - 199 mg/dL High 200 - 499 mg/dL Very High > or = 500 mg/dL Laboratory - Chemistry and C hemistry - challengeOrdered By: Luna Flaherty on 12-10-2022 ALP [Catalytic activity/Vol] 68 U/L 45-117 [facility] ALT [Catalytic activity/Vol] 46 U/L 16-61 [facility] CO2 [Moles/Vol] 25.0 mmol/L 21.0-32.0 [facility] Globulin (S) [Mass/Vol] 4.5 g/dL 2.2-4.2 [facility] Urea nitrogen/Creatinine [Mass ratio] 13.6 mg/mg 10-20 [facility] No Panel InformationOrdered By: Luna Flaherty on 12-10-2022 Estimated GFR (MDRD) Amer 62 mL/min >60 [facility] Comment on above: GFR Calc Estimated GFR (MDRD) Non-Af Amer 52 mL/min >60 [facility] Comment on above: Non- GFR Calc Serum or plasma albumin darell urement (mass/volume)Ordered By: Luna Flaherty on 12-10-2022 Albumin [Mass/Vol] 3.8 g/dL 3.2-5.0 [facility] Serum or plasma albumin/glob ulin mass ratioOrdered By: Luna Flaherty on 12-10-2022 Albumin/Globulin [Mass ratio] 0.8 {ratio} 0.9-2.4 [facility] Serum or plasma calcium darell urement (mass/volume)Ordered By: Luna Flaherty on 12-10-2022 Calcium [Mass/Vol] 9.8 mg/dL 8.5-10.1 [facility] Serum or plasma cholesterol in HDL measurement (mass/volume)Ordered By: Luna Flaherty on 12-10-2022 Cholesterol in HDL [Mass/Vol] 32 mg/dL >40 [facility] Comment on above: The drugs N-Acetylcy steine and Metamizole may falsely depress this assay. Reference Range HDL <40 mg/dL Low HDL Cholesterol HDL >or= 60 mg/dL High HDL Cholesterol Serum or plasma cholesterol in VLDL measurement (mass/volume)Ordered By: Luna Flaherty on 12-10-2022 Cholesterol in VLDL [Mass/Vol] 25 mg/dL 5-40 [facility] Serum or plasma creatinine m easurement (mass/volume)Ordered By: Luna Flaherty on 12-10-2022 Creatinine [Mass/Vol] 1.40 mg/dL 0.70-1.30 [facility] Comment on above: The validity of the calculated GFR & GFRAA in patients over 70 years has not been determined. Clinical correlation is essential. Serum or plasma low density lipoprotein (LDL) cholesterol measurement (mass/volume)Ordered By: Luna Flaherty on 12-10-2022 Cholesterol in LDL [Mass/Vol] 50 mg/dL 0-130 [facility] Serum or plasma urea nitroge n measurement (mass/volume)Ordered By: Luna Flaherty on 12-10-2022 Urea nitrogen [Mass/Vol] 19 mg/dL 7-18 [facility] Thin prep Papanicolaou smear with manual screeningOrdered By: Luna Flaherty on 12-10-2022 Thin prep Papanicolaou smear with manual screening 26 U/L 15-37 [facility] Thin prep Papanicolaou smear with manual screening 8 5-15 [facility] Whole blood hemoglobin A1c/t otal hemoglobin ratio (mass fraction)Ordered By: Luna Flaherty on 12-10-2022 HbA1c (Bld) [Mass fraction] 10.3 % 3.8-5.6 [facility] Comment on above: Normal < 5.7 % Predi abetic 5.7 - 6.4 % Diabetic >or= 6.5 % Please note range changes. Laboratory - Hematology and Cell countson 11-11-2022 HbA1c (Bld) [Mass fraction] 12.1 % 4.2-6.3 [facility] Laboratory - Chemistry and C hemistry - challengeOrdered By: Dr. Flaherty on 07-01-2022 Free T4 [Mass/Vol] 1.48 ng/dL 0.76-1.46 [facility] Laboratory - Hematology and Cell countson 07-01-2022 HbA1c (Bld) [Mass fraction] 11 % 4.2-6.3 [facility] No Panel InformationOrdered By: Dr. Flaherty on 07-01-2022 Insulin Level 8.5 mU/L 2.6-37.6 [facility] Thyroid Stimulating Hormone (TSH) 0.76 uIU/mL 0.358-3.74 [facility] No Panel InformationOrdered By: Dr. Flaherty on 04-03-2022 Thyroid Stimulating Hormone (TSH) 6.52 uIU/mL 0.358-3.74 [facility] Whole blood hemoglobin A1c/t otal hemoglobin ratio (mass fraction)Ordered By: Dr. Flaherty on 04-03-2022 HbA1c (Bld) [Mass fraction] 10.7 % 3.8-5.6 [facility] Comment on above: Normal < 5.7 % Predi abetic 5.7 - 6.4 % Diabetic >or= 6.5 % Please note range changes. Basophil percentageOrdered B y: Dr. Flaherty on 01-08-2022 Bilirubin [Mass/Vol] 0.70 mg/dL 0.20-1.00 [facility] Comment on above: For patients on eltr ombopag therapy, use of Dimension [place] TBIL is not recommended. Chloride [Moles/Vol] 100 mmol/L 98-107 [facility] Cholesterol [Mass/Vol] 122 mg/dL <200 [facility] Comment on above: <200 mg/dL Desirable 200-240 mg/dL Borderline >240 mg/dL High Risk Glucose [Mass/Vol] 208 mg/dL 74-106 [facility] Comment on above: Glucose result great er than or equal to 200 mg/dLsuggests DIABETES MELLITUS per A.D.A. criteria. Potassium [Moles/Vol] 4.1 mmol/L 3.5-5.1 [facility] Protein [Mass/Vol] 8.0 g/dL 6.4-8.2 [facility] Sodium [Moles/Vol] 138 mmol/L 136-145 [facility] Triglyceride [Mass/Vol] 228 mg/dL <199 [facility] Comment on above: The drugs N-Acetylcy steine and Metamizole may falsely depress this assay.Serum Triglycerides Reference Interval Normal <150 mg/dL Borderline high 150 - 199 mg/dL High 200 - 499 mg/dL Very High > or = 500 mg/dL Laboratory - Chemistry and C hemistry - challengeOrdered By: Dr. Flaherty on 01-08-2022 ALP [Catalytic activity/Vol] 71 U/L 45-117 [facility] ALT [Catalytic activity/Vol] 41 U/L 16-61 [facility] CO2 [Moles/Vol] 28.0 mmol/L 21.0-32.0 [facility] Globulin (S) [Mass/Vol] 4.0 g/dL 2.2-4.2 [facility] Urea nitrogen/Creatinine [Mass ratio] 12.7 mg/mg 10-20 [facility] Laboratory - Hematology and Cell countson 01-08-2022 HbA1c (Bld) [Mass fraction] 8.1 % 4.2-6.3 [facility] No Panel InformationOrdered By: Dr. Flaherty on 01-08-2022 Estimated GFR (MDRD) Amer 66 mL/min >60 [facility] Comment on above: GFR Calc Estimated GFR (MDRD) Non-Af Amer 54 mL/min >60 [facility] Comment on above: Non- GFR Calc Urine Microalbumin/Creatinine Ratio 193.6 mg/g CRE <30 [facility] Serum or plasma albumin darell urement (mass/volume)Ordered By: Dr. Flaherty on 01-08-2022 Albumin [Mass/Vol] 4.0 g/dL 3.2-5.0 [facility] Serum or plasma albumin/glob ulin mass ratioOrdered By: Dr. Flaherty on 01-08-2022 Albumin/Globulin [Mass ratio] 1.0 {ratio} 0.9-2.4 [facility] Serum or plasma calcium darell urement (mass/volume)Ordered By: Dr. Flaherty on 01-08-2022 Calcium [Mass/Vol] 9.3 mg/dL 8.5-10.1 [facility] Serum or plasma cholesterol in HDL measurement (mass/volume)Ordered By: Dr. Flaherty on 01-08-2022 Cholesterol in HDL [Mass/Vol] 34 mg/dL >40 [facility] Comment on above: The drugs N-Acetylcy steine and Metamizole may falsely depress this assay. Reference Range HDL <40 mg/dL Low HDL Cholesterol HDL >or= 60 mg/dL High HDL Cholesterol Serum or plasma cholesterol in VLDL measurement (mass/volume)Ordered By: Dr. Flaherty on 01-08-2022 Cholesterol in VLDL [Mass/Vol] 46 mg/dL 5-40 [facility] Serum or plasma creatinine m easurement (mass/volume)Ordered By: Dr. Flaherty on 01-08-2022 Creatinine [Mass/Vol] 1.34 mg/dL 0.70-1.30 [facility] Comment on above: The validity of the calculated GFR & GFRAA in patients over 70 years has not been determined. Clinical correlation is essential. Serum or plasma low density lipoprotein (LDL) cholesterol measurement (mass/volume)Ordered By: Dr. Flaherty on 01-08-2022 Cholesterol in LDL [Mass/Vol] 42 mg/dL 0-130 [facility] Serum or plasma urea nitroge n measurement (mass/volume)Ordered By: Dr. Flaherty on 01-08-2022 Urea nitrogen [Mass/Vol] 17 mg/dL 7-18 [facility] Thin prep Papanicolaou smear with manual screeningOrdered By: Dr. Flaherty on 01-08-2022 Thin prep Papanicolaou smear with manual screening 24 U/L 15-37 [facility] Thin prep Papanicolaou smear with manual screening 10 5-15 [facility] Thin prep Papanicolaou smear with manual screening 242.0 mg/L NO RANGE EST. [facility] Urine creatinine measurement (mass/volume)Ordered By: Dr. Flaherty on 01-08-2022 Creatinine (U) [Mass/Vol] 125.00 mg/dL NO RANGE EST. [facility] Laboratory - Hematology and Cell countson 10-30-2021 HbA1c (Bld) [Mass fraction] 8.5 % 4.2-6.3 [facility] Work Phone: Laboratory - Microbiology an d Antimicrobial susceptibilityon 09-12-2021 SARS-CoV-2 (COVID-19) RNA HEAVEN+probe Ql (Unsp spec) Not detected Not Detect [facility] Work Phone: Comment on above: Normal Reference Ran ge: Not DetectedMethod:(RT-PCR) real-time reverse transcriptase PCRLuminex FRANCO Instrument*The Food and Drug Administration (FDA) has issued an Emergency Use Authorization (EAU) for the FRANCO SARS-CoV-2 Assay for the rapid detection of the virus that causes COVID-19. This test has been validated, but the FDAs independent review of this validation is pending.*Negative results do not preclude infection and should not be used as the sole basis for treatment or patient management. Optimum specimen types and timing for peak viral levels during infections caused by SARS-CoV-2 have not been determined. Collection of multiple specimens from the same patient may be necessary to detect the virus. The possibility of a false negative result should be considered if the patient has clinical presentation or has had recent exposure. Laboratory - Hematology and Cell countson 06-19-2021 HbA1c (Bld) [Mass fraction] 8.0 % 4.2-6.3 [facility] Work Phone: Laboratory - Microbiology an d Antimicrobial susceptibilityon 05-10-2021 SARS-CoV-2 (COVID-19) RNA HEAVEN+probe Ql (Unsp spec) Not detected Not Detect [facility] Work Phone: Comment on above: Normal Reference Ran ge: Not DetectedMethod:(RT-PCR) real-time reverse transcriptase PCRLuminex FRANCO Instrument*The Food and Drug Administration (FDA) has issued an Emergency Use Authorization (EAU) for the FRANCO SARS-CoV-2 Assay for the rapid detection of the virus that causes COVID-19. This test has been validated, but the FDAs independent review of this validation is pending.*Negative results do not preclude infection and should not be used as the sole basis for treatment or patient management. Optimum specimen types and timing for peak viral levels during infections caused by SARS-CoV-2 have not been determined. Collection of multiple specimens from the same patient may be necessary to detect the virus. The possibility of a false negative result should be considered if the patient has clinical presentation or has had recent exposure. Laboratory - Chemistry and C hemistry - challengeon 03-20-2021 Free T4 [Mass/Vol] 1.15 ng/dL 0.76-1.46 [facility] Work Phone: Laboratory - Hematology and Cell countson 03-20-2021 HbA1c (Bld) [Mass fraction] 8.4 % [facility] Work Phone: No Panel Informationon 03-20 Thyroid Stimulating Hormone (TSH) 2.98 uIU/mL 0.358-3.74 [facility] Work Phone: A1Con 04-15-2017 Hemoglobin A1c/Hemoglobin.total mass fraction (Bld) 7.5 % High 4.8-5.9 [facility] ([place]) Comment on above: Performed By: #### P SA, A1C ####[id number] [place], [place] [address] PSAon 04-15-2017 Prostate Specific Antigen 3.03 ng/mL Normal 0.00-4.00 [facility] ([place]) Comment on above: Performed By: #### P SA, A1C ####[id number] [place], [place] [address] Vital Signs Date Time Vital Sign Value Performing Clinician [place] ureña 11-23-2024 10:48-0400 Body height 182.[address] Luna Flaherty DO Work Phone: [facility] 11-23-2024 10:48-0400 Body mass index (BMI) [Ratio] 23 kg/m2 Dr. Luna Flaherty DO Work Phone: [facility] 11-23-2024 10:48-0400 Body temperature 97.9 [degF] Dr. Luna Flaherty DO Work Phone: [facility] 11-23-2024 10:48-0400 Body weight 77.[address] Luna Flaherty DO Work Phone: [facility] 11-23-2024 10:48-0400 Diastolic blood pressure 84 mm[Hg] Dr. Luna Flaherty DO Work Phone: [facility] 11-23-2024 10:48-0400 Heart rate 90 /min Dr. Luna Flaherty DO Work Phone: [facility] 11-23-2024 10:48-0400 Respiratory rate 16 /min Dr. Luna Flaherty DO Work Phone: [facility] 11-23-2024 10:48-0400 SaO2% (BldA) [Mass fraction] 98 % Dr. Luna Flaherty DO Work Phone: [facility] 11-23-2024 10:48-0400 Systolic blood pressure 152 mm[Hg] Dr. Luna Flaherty DO Work Phone: [facility] 11-15-2024 12:10-0400 Body height 182.[address] Luna Flaherty DO Work Phone: [facility] 11-15-2024 12:10-0400 Body mass index (BMI) [Ratio] 23.7 kg/m2 Dr. Luna Flaherty DO Work Phone: [facility] 11-15-2024 12:10-0400 Body temperature 97.6 [degF] Dr. Luna Flaherty DO Work Phone: [facility] 11-15-2024 12:10-0400 Body weight 79.[address] Luna Flaherty DO Work Phone: [facility] 11-15-2024 12:10-0400 Diastolic blood pressure 68 mm[Hg] Dr. Luna Flaherty DO Work Phone: [facility] 11-15-2024 12:10-0400 Heart rate 100 /min Dr. Luna Flaherty DO Work Phone: [facility] 11-15-2024 12:10-0400 SaO2% (BldA) [Mass fraction] 97 % Dr. Luna Flaherty DO Work Phone: [facility] 11-15-2024 12:10-0400 Systolic blood pressure 148 mm[Hg] Dr. Luna Flaherty DO Work Phone: [facility] 09-29-2024 14:17-0400 Body height 182.[address] Luna Flaherty DO Work Phone: [facility] 09-29-2024 14:17-0400 Body mass index (BMI) [Ratio] 23.7 kg/m2 Dr. Luna Flaherty DO Work Phone: [facility] 09-29-2024 14:17-0400 Body temperature 97.5 [degF] Dr. Luna Flaherty DO Work Phone: [facility] 09-29-2024 14:17-0400 Body weight 79.[address] Luna Flaherty DO Work Phone: [facility] 09-29-2024 14:17-0400 Diastolic blood pressure 60 mm[Hg] Dr. Luna Flaherty DO Work Phone: [facility] 09-29-2024 14:17-0400 Heart rate 66 /min Dr. Luna Flaherty DO Work Phone: [facility] 09-29-2024 14:17-0400 Respiratory rate 16 /min Dr. Luna Flaherty DO Work Phone: [facility] 09-29-2024 14:17-0400 SaO2% (BldA) [Mass fraction] 95 % Dr. Luna Flaherty DO Work Phone: [facility] 09-29-2024 14:17-0400 Systolic blood pressure 120 mm[Hg] Dr. Luna Flaherty DO Work Phone: [facility] 06-21-2024 09:37-0400 Body mass index (BMI) [Ratio] 24.1 kg/m2 Dr. Luna Flaherty DO Work Phone: [facility] 06-21-2024 09:37-0400 Body temperature 96.7 [degF] Dr. Luna Flaherty DO Work Phone: [facility] 06-21-2024 09:37-0400 Body weight 80.[address] Luna Flaherty DO Work Phone: [facility] 06-21-2024 09:37-0400 Diastolic blood pressure 68 mm[Hg] Dr. Luna Flaherty DO Work Phone: [facility] 06-21-2024 09:37-0400 Heart rate 76 /min Dr. Luna Flaherty DO Work Phone: [facility] 06-21-2024 09:37-0400 Respiratory rate 16 /min Dr. Luna Flaherty DO Work Phone: [facility] 06-21-2024 09:37-0400 SaO2% (BldA) [Mass fraction] 95 % Dr. Luna Flaherty DO Work Phone: [facility] 06-21-2024 09:37-0400 Systolic blood pressure 134 mm[Hg] Dr. Luna Flaherty DO Work Phone: [facility] 12-10-2022 10:05-0400 Body height 182.[address] Luna Flaherty Work Phone: [facility] 12-10-2022 10:05-0400 Body mass index (BMI) [Ratio] 22.9 kg/m2 Dr. Luna Flaherty Work Phone: [facility] 12-10-2022 10:05-0400 Body temperature 98.5 [degF] Dr. Luna Flaherty Work Phone: [facility] 12-10-2022 10:05-0400 Body weight 76.[address] Luna Flaherty Work Phone: [facility] 12-10-2022 10:05-0400 Diastolic blood pressure 80 mm[Hg] Dr. Luna Flaherty Work Phone: [facility] 12-10-2022 10:05-0400 Heart rate 74 /min Dr. Luna Flaherty Work Phone: [facility] 12-10-2022 10:05-0400 Respiratory rate 16 /min Dr. Luna Flaherty Work Phone: [facility] 12-10-2022 10:05-0400 SaO2% (BldA) [Mass fraction] 96 % Dr. Luna Flaherty Work Phone: [facility] 12-10-2022 10:05-0400 Systolic blood pressure 154 mm[Hg] Dr. Luna Flaherty Work Phone: [facility] 11-11-2022 09:38-0400 Body mass index (BMI) [Ratio] 23.1 kg/m2 Dr. Luna Flaherty Work Phone: [facility] 11-11-2022 09:38-0400 Body temperature 95.6 [degF] Dr. Luna Flaherty Work Phone: [facility] 11-11-2022 09:38-0400 Body weight 77.[address] Luna Flaherty Work Phone: [facility] 11-11-2022 09:38-0400 Diastolic blood pressure 76 mm[Hg] Dr. Luna Flaherty Work Phone: [facility] 11-11-2022 09:38-0400 Heart rate 70 /min Dr. Luna Flaherty Work Phone: [facility] 11-11-2022 09:38-0400 Respiratory rate 18 /min Dr. Luna Flaherty Work Phone: [facility] 11-11-2022 09:38-0400 SaO2% (BldA) [Mass fraction] 99 % Dr. Luna Flaherty Work Phone: [facility] 11-11-2022 09:38-0400 Systolic blood pressure 132 mm[Hg] Dr. Luna Flaherty Work Phone: [facility] 07-01-2022 08:40-0400 Body height 182.[address] Luna Flaherty Work Phone: [facility] 07-01-2022 08:40-0400 Body mass index (BMI) [Ratio] 23.5 kg/m2 Dr. Luna Flaherty Work Phone: [facility] 07-01-2022 08:40-0400 Body temperature 96 [degF] Dr. Luna Flaherty Work Phone: [facility] 07-01-2022 08:40-0400 Body weight 78.[address] Luna Flaherty Work Phone: [facility] 07-01-2022 08:40-0400 Diastolic blood pressure 80 mm[Hg] Dr. Luna Flaherty Work Phone: [facility] 07-01-2022 08:40-0400 Heart rate 63 /min Dr. Luna Flaherty Work Phone: [facility] 07-01-2022 08:40-0400 Respiratory rate 18 /min Dr. Luna Flaherty Work Phone: [facility] 07-01-2022 08:40-0400 SaO2% (BldA) [Mass fraction] 99 % Dr. Luna Flaherty Work Phone: [facility] 07-01-2022 08:40-0400 Systolic blood pressure 138 mm[Hg] Dr. Luna Falherty Work Phone: [facility] 04-03-2022 08:33-0500 Body height 182.[address] Luna Flaherty Work Phone: [facility] 04-03-2022 08:33-0500 Body mass index (BMI) [Ratio] 23.6 kg/m2 Dr. Luna Flaherty Work Phone: [facility] 04-03-2022 08:33-0500 Body temperature 96.3 [degF] Dr. Luna Flaherty Work Phone: [facility] 04-03-2022 08:33-0500 Body weight 78.[address] Luna Flaherty Work Phone: [facility] 04-03-2022 08:33-0500 Diastolic blood pressure 74 mm[Hg] Dr. Luna Flaherty Work Phone: [facility] 04-03-2022 08:33-0500 Heart rate 70 /min Dr. Luna Flaherty Work Phone: [facility] 04-03-2022 08:33-0500 Respiratory rate 16 /min Dr. Luna Flaherty Work Phone: [facility] 04-03-2022 08:33-0500 SaO2% (BldA) [Mass fraction] 98 % Dr. Luna Flaherty Work Phone: [facility] 04-03-2022 08:33-0500 Systolic blood pressure 146 mm[Hg] Dr. Luna Flaherty Work Phone: [facility] 10-30-2021 10:15-0400 Body height 180.[address] Luna Flaherty Work Phone: [facility] Work Phone: 10-30-2021 10:15-0400 Body mass index (BMI) [Ratio] 24.7 kg/m2 Dr. Luna Flaherty Work Phone: [facility] Work Phone: 10-30-2021 10:15-0400 Body temperature 96.3 [degF] Dr. Luna Flaherty Work Phone: [facility] Work Phone: 10-30-2021 10:15-0400 Body weight 80.[address] Luna Flaherty Work Phone: [facility] Work Phone: 10-30-2021 10:15-0400 Diastolic blood pressure 78 mm[Hg] Dr. Luna Flaherty Work Phone: [facility] Work Phone: 10-30-2021 10:15-0400 Heart rate 65 /min Dr. Luna Flaherty Work Phone: [facility] Work Phone: 10-30-2021 10:15-0400 Respiratory rate 18 /min Dr. Luna Flaherty Work Phone: [facility] Work Phone: 10-30-2021 10:15-0400 SaO2% (BldA) [Mass fraction] 99 % Dr. Luna Flaherty Work Phone: [facility] Work Phone: 10-30-2021 10:15-0400 Systolic blood pressure 144 mm[Hg] Dr. Luna Flaherty Work Phone: [facility] Work Phone: 09-12-2021 09:31-0400 Diastolic blood pressure 70 mm[Hg] Dr. Luna Flaherty Work Phone: [facility] Work Phone: 09-12-2021 09:31-0400 Systolic blood pressure 136 mm[Hg] Dr. Luna Flaherty Work Phone: [facility] Work Phone: 09-12-2021 09:13-0400 Body height 180.[address] Luna Flaherty Work Phone: [facility] Work Phone: 09-12-2021 09:13-0400 Body mass index (BMI) [Ratio] 24.5 kg/m2 Dr. Luna Flaherty Work Phone: [facility] Work Phone: 09-12-2021 09:13-0400 Body temperature 98.1 [degF] Dr. Luna Flaherty Work Phone: [facility] Work Phone: 09-12-2021 09:13-0400 Body weight 79.[address] Luna Flaherty Work Phone: [facility] Work Phone: 09-12-2021 09:13-0400 Heart rate 69 /min Dr. Luna Flaherty Work Phone: [facility] Work Phone: 09-12-2021 09:13-0400 Respiratory rate 16 /min Dr. Luna Flaherty Work Phone: [facility] Work Phone: 09-12-2021 09:13-0400 SaO2% (BldA) [Mass fraction] 98 % Dr. Luna Flaherty Work Phone: [facility] Work Phone: 08-07-2021 09:38-0400 Body mass index (BMI) [Ratio] 24.3 kg/m2 Dr. Luna Flaherty Work Phone: [facility] Work Phone: 08-07-2021 09:38-0400 Body temperature 96.7 [degF] Dr. Luna Flaherty Work Phone: [facility] Work Phone: 08-07-2021 09:38-0400 Body weight 78.[address] Luna Flaherty Work Phone: [facility] Work Phone: 08-07-2021 09:38-0400 Diastolic blood pressure 72 mm[Hg] Dr. Luna Flaherty Work Phone: [facility] Work Phone: 08-07-2021 09:38-0400 Heart rate 74 /min Dr. Luna Flaherty Work Phone: [facility] Work Phone: 08-07-2021 09:38-0400 Respiratory rate 14 /min Dr. Luna Flaherty Work Phone: [facility] Work Phone: 08-07-2021 09:38-0400 SaO2% (BldA) [Mass fraction] 99 % Dr. Luna Flaherty Work Phone: [facility] Work Phone: 08-07-2021 09:38-0400 Systolic blood pressure 140 mm[Hg] Dr. Luna Flaherty Work Phone: [facility] Work Phone: 06-19-2021 08:36-0400 Body mass index (BMI) [Ratio] 24.3 kg/m2 Dr. Luna Flaherty Work Phone: [facility] Work Phone: 06-19-2021 08:36-0400 Body temperature 95.1 [degF] Dr. Luna Flaherty Work Phone: [facility] Work Phone: 06-19-2021 08:36-0400 Body weight 79.[address] Luna Flaherty Work Phone: [facility] Work Phone: 06-19-2021 08:36-0400 Diastolic blood pressure 60 mm[Hg] Dr. Luna Flaherty Work Phone: [facility] Work Phone: 06-19-2021 08:36-0400 Heart rate 61 /min Dr. Luna Flaherty Work Phone: [facility] Work Phone: 06-19-2021 08:36-0400 Respiratory rate 18 /min Dr. Luna Flaherty Work Phone: [facility] Work Phone: 06-19-2021 08:36-0400 SaO2% (BldA) [Mass fraction] 99 % Dr. Luna Flaherty Work Phone: [facility] Work Phone: 06-19-2021 08:36-0400 Systolic blood pressure 112 mm[Hg] Dr. Luna Flaherty Work Phone: [facility] Work Phone: 05-10-2021 08:44-0500 Body height 180.[address] Luna Flaherty Work Phone: [facility] Work Phone: 05-10-2021 08:44-0500 Body mass index (BMI) [Ratio] 24.3 kg/m2 Dr. Luna Flaherty Work Phone: [facility] Work Phone: 05-10-2021 08:44-0500 Body temperature 96.3 [degF] Dr. Luna Flaherty Work Phone: [facility] Work Phone: 05-10-2021 08:44-0500 Body weight 78.[address] Luna Flaherty Work Phone: [facility] Work Phone: 05-10-2021 08:44-0500 Diastolic blood pressure 72 mm[Hg] Dr. Luna Flaherty Work Phone: [facility] Work Phone: 05-10-2021 08:44-0500 Heart rate 91 /min Dr. Luna Flaherty Work Phone: [facility] Work Phone: 05-10-2021 08:44-0500 Respiratory rate 16 /min Dr. Luna Flaherty Work Phone: [facility] Work Phone: 05-10-2021 08:44-0500 SaO2% (BldA) [Mass fraction] 99 % Dr. Luna Flaherty Work Phone: [facility] Work Phone: 05-10-2021 08:44-0500 Systolic blood pressure 130 mm[Hg] Dr. Luna Flaherty Work Phone: [facility] Work Phone: 03-27-2021 15:33-0500 Body temperature 96.7 [degF] Dr. Luna Flaherty Work Phone: [facility] Work Phone: 03-27-2021 15:33-0500 Body weight 80.[address] Luna Flaherty Work Phone: [facility] Work Phone: 03-27-2021 15:33-0500 Diastolic blood pressure 78 mm[Hg] Dr. Luna Flaherty Work Phone: [facility] Work Phone: 03-27-2021 15:33-0500 Heart rate 67 /min Dr. Luna Flaherty Work Phone: [facility] Work Phone: 03-27-2021 15:33-0500 Respiratory rate 16 /min Dr. Luna Flaherty Work Phone: [facility] Work Phone: 03-27-2021 15:33-0500 SaO2% (BldA) [Mass fraction] 99 % Dr. Luna Flaherty Work Phone: [facility] Work Phone: 03-27-2021 15:33-0500 Systolic blood pressure 130 mm[Hg] Dr. Luna Flaherty Work Phone: [facility] Work Phone: 03-20-2021 09:33-0500 Body mass index (BMI) [Ratio] 24.3 kg/m2 Dr. Luna Flaherty Work Phone: [facility] Work Phone: 03-20-2021 09:33-0500 Body temperature 96 [degF] Dr. Luna Flaherty Work Phone: [facility] Work Phone: 03-20-2021 09:33-0500 Body weight 78.[address] Luna Flaherty Work Phone: [facility] Work Phone: 03-20-2021 09:33-0500 Diastolic blood pressure 70 mm[Hg] Dr. Luna Flaherty Work Phone: [facility] Work Phone: 03-20-2021 09:33-0500 Heart rate 62 /min Dr. Luna Flaherty Work Phone: [facility] Work Phone: 03-20-2021 09:33-0500 Respiratory rate 16 /min Dr. Luna Flaherty Work Phone: [facility] Work Phone: 03-20-2021 09:33-0500 SaO2% (BldA) [Mass fraction] 99 % Dr. Luna Flaherty Work Phone: [facility] Work Phone: 03-20-2021 09:33-0500 Systolic blood pressure 128 mm[Hg] Dr. Luna Flaherty Work Phone: [facility] Work Phone: Encounters Encounter Date Encounter Type Care Provider Facility Start: 11-25-2024 End: 11-25-[address] Luna Flaherty DO Work Phone: -[facility] Start: 11-25-2024 End: 11-25-[address] Luna Judge DO -[facility] Work Phone: Start: 11-25-2024 End: 11-25-2024 ambulatory Luna Flaherty Facility:[facility] Start: 11-23-2024 End: 11-23-[address] Luna Judge DO -[facility] Work Phone: Start: 11-23-2024 End: 11-23-[address] Luna Flaherty DO Work Phone: -[facility] Start: 11-15-2024 End: 11-15-2024 Patient encounter procedure [facility] Work Phone: Start: 11-15-2024 End: 11-15-[address] Luna Flaherty DO Work Phone: [facility] Start: 11-15-2024 End: 11-15-2024 ambulatory Luna Flaherty Facility:[facility] Start: 10-19-2024 ambulatory Homer Grey Facility:[facility] Start: 10-19-2024 Non-patient / Non-visit Dr. Brewer [facility] Start: 10-19-2024 End: 10-19-[address] Luna Flaherty DO Work Phone: -Cardiovascular Services Start: 10-19-2024 End: 10-19-[address] Luna Judge DO -Cardiovascular Services Work Phone: Start: 10-19-2024 End: 10-19-2024 ambulatory Luna Flaherty Facility:[facility] Start: 10-04-2024 End: 10-04-[address] Luna Flaherty DO Work Phone: -Ultrasound [facility] Start: 10-04-2024 End: 10-04-[address] Luna Judge DO -Ultrasound [facility] Work Phone: Start: 10-04-2024 End: 10-04-2024 ambulatory Luna Flaherty Facility:[facility] Start: 09-29-2024 End: 09-29-[address] Luna Judge DO -[facility] Work Phone: Start: 09-29-2024 End: 09-29-[address] Luna Flaherty DO Work Phone: -[facility] Start: 06-21-2024 End: 06-21-[address] Luna Judge DO -[facility] Work Phone: Start: 06-21-2024 End: 06-21-2024 ambulatory Luna Flaherty Facility:[facility] Start: 03-22-2024 End: 03-22-2024 ambulatory Luna Flaherty Facility:[facility] Start: 03-22-2024 End: 03-22-2024 ambulatory Luna Flaherty Facility:[facility] Start: 12-10-2022 End: 12-10-[address] Luna Flaherty Work Phone: [facility] Work Phone: Start: 12-10-2022 End: 12-10-[address] Luna Flaherty Work Phone: [facility] Work Phone: Start: 11-11-2022 End: 11-11-[address] Luna Flaherty Work Phone: [facility] Work Phone: Start: 07-01-2022 End: 07-01-[address] Luna Flaherty Work Phone: [facility] Work Phone: Start: 07-01-2022 End: 07-01-[address] Luna Flaherty Work Phone: [facility] Start: 04-03-2022 End: 04-03-[address] Luna Flaherty Work Phone: [facility] Work Phone: Start: 04-03-2022 End: 04-03-[address] Luna Flaherty Work Phone: [facility] Start: 01-08-2022 End: 01-08-[address] Luna Flaherty Work Phone: [facility] Work Phone: Start: 01-08-2022 End: 01-08-[address] Luna Flaherty Work Phone: [facility] Start: 10-30-2021 End: 10-30-[address] Luna Flaherty Work Phone: [facility] Start: 09-12-2021 End: 09-12-[address] Luna Flaherty Work Phone: [facility] Internal [facility] Start: 08-14-2021 End: 08-14-[address] Luna Flaherty Work Phone: [facility] Start: 08-07-2021 End: 08-07-[address] Luna Flaherty Work Phone: [facility] Start: 06-19-2021 End: 06-19-[address] Luna Flaherty Work Phone: [facility] Start: 05-10-2021 End: 05-10-[address] [facility] Start: 03-27-2021 End: 03-27-[address] Luna Flaherty Work Phone: [facility] Start: 03-20-2021 End: 03-20-[address] Luna Flaherty Work Phone: [facility] Start: 04-15-2017 End: 04-16-2017 [facility] LUNA FLAHERTY Facility:[facility] Procedures Date Procedure Procedure Detail Performing Clinician Start: 11-25-2024 MRI of lumbar spine Dr. Luna Flaherty DO Work Phone: Start: 11-15-2024 X-ray of lumbar spin e, two or three views Dr. Luna Flaherty DO Work Phone: Start: 10-04-[address] Luna Flaherty DO Work Phone: Start: 08-14-2021 X-ray of lumbar spin e, two or three views Dr. Luna Flaherty Work Phone: Start: 03-20-2021 Plain X-ray of shoulder Dr. Luna Flaherty Work Phone: Plan of Treatment Date Care Activity Detail Author Start: 11-25-2024 MRI of lumbar spine Spine Lumbar (Routine) [facility] Start: 11-25-2024 Patient encounter procedure Registered Clinical -MRI - [facility] Work Phone: Cardiovascular stres s testing [facility] CT Abdomen W contrast IV [facility] MR Lumbar spine WO a nd W contrast IV [facility] US Gallbladder [facility] XR Lumbar spine 2 or 3 Views [facility] Work Phone: [facility] Immunizations Immunization Date Immunization Notes Care Provider [facility]2023 influenza, high dose seasonal, preservative-free Dr. Luna Flaherty DO Work Phone: [facility] 10-31-2023 Pfizer Covid-19 (Comirnaty) Dr. Luna Flaherty DO Work Phone: [facility] 02-05-2023 RSV Adult BiValent (Abrysvo) Dr. Luna Flaherty DO Work Phone: [facility] 11-11-2022 influenza, injectabl e, quadrivalent, preservative free Dr. Luna Flaherty Work Phone: [facility] 02-02-2021 Covid (Pfizer) Dr. Luna hollins Work Phone: [facility] 05-24-2020 Covid (Pfizer) Dr. Luna hollins Work Phone: [facility] 05-03-2020 Covid (Pfizer) Dr. Luna hollins Work Phone: [facility] 11-02-2019 Fluad Quad [id number](65yr up)(PF) 60 mcg (15 mcg x 4)/0.5mL IM syringe (flu vac Dr. Luna Flaherty Work Phone: [facility] Work Phone: 01-12-2019 Fluad 2018- 65yr up(PF)45 mcg(15 mcgx3)/0.5 mL intramuscular syringe (flu vac Dr. Luna Flaherty Work Phone: [facility] Work Phone: 11-18-[address] Luna Flaherty Work Phone: [facility] 01-23-2009 novel influenza-H1N1 -09, preservative-free, injectable Dr. Luna Flaherty Work Phone: [facility] 03-24-2003 TD(adult) unspecifie d formulation Dr. Luna Flaherty Work Phone: [facility] Payers Date Payer Category Payer Self-pay [id number] 2024 Self-pay [id number] 2009 Unknown [id number] Medicare [id number] Unknown [id number] 2.16.8 [id number] Unknown [id number] 2.16.8 [id number] Unknown [id number] 2.16.8 [id number] Unknown [id number] 2.16.8 [id number] Unknown [id number] 2.16.8 [id number] Unknown [id number] 2.16.8 [id number] Unknown [id number] 2.16.8 [id number] Unknown [id number] 2.16.8 [id number] Unknown [id number] 2.16.8 [id number] Unknown [id number] 2.16.8 [id number] Unknown [id number] 2.16.8 [id number] Social History Date Type Detail Facility Start: 05-10-2021 End: 12-10-2022 Tobacco smoking status NHIS Unknown if ever smoked [facility] Start: 1940 Sex Assigned At Male [facility] Start: 05-13-2023 Tobacco smoking stat us NHIS Ex-smoker (finding) [facility] Sex Male [facility] Medical Equipment Procedure Code Equipment Code Equipment Origin al Text Equipment Identifier Dates Blood Sugar Diagnostic (True Metrix Glucose Test Strip) strip Start: 07-31-2017 Lancets (Unilet Lancets) 30 gauge misc Start: 07-31-2017 Blood Sugar Diagnostic (True Metrix Glucose Test Strip) strip Start: 07-31-2017 Lancets (Unilet Lancets) 30 gauge misc Start: 07-31-2017 Blood Sugar Diagnostic (True Metrix Glucose Test Strip) strip Start: 07-31-2017 Lancets (Unilet Lancets) 30 gauge misc Start: 07-31-2017 Blood Sugar Diagnostic (True Metrix Glucose Test Strip) strip Start: 07-31-2017 Lancets (Unilet Lancets) 30 gauge misc Start: 07-31-2017 Blood Sugar Diagnostic (True Metrix Glucose Test Strip) strip Start: 07-31-2017 Lancets (Unilet Lancets) 30 gauge misc Start: 07-31-2017 Blood Sugar Diagnostic (True Metrix Glucose Test Strip) strip Start: 11-24-2022 Lancets (Unilet Lancets) 30 gauge misc Start: 11-24-2022 Pen Needle, Diab etic (Carefine Pen Needle) 29 gauge x 1/2 needle Start: 11-14-2022 Blood Sugar Diagnostic (True Metrix Glucose Test Strip) strip Start: 07-31-2017 End: 11-20-2022 Blood Sugar Diagnostic (True Metrix Glucose Test Strip) strip Start: 11-20-2022 End: 11-24-2022 Lancets (Unilet Lancets) 30 gauge misc Start: 07-31-2017 End: 11-24-2022 Blood Sugar Diagnostic (True Metrix Glucose Test Strip) strip Start: 02-11-2023 Lancets (Unilet Lancets) 30 gauge misc Start: 09-29-2024 Pen Needle, Diab etic (Carefine Pen Needle) 29 gauge x 1/2 needle Start: 09-29-2024 Blood Sugar Diagnostic (True Metrix Glucose Test Strip) strip Start: 07-31-2017 End: 11-20-2022 Blood Sugar Diagnostic (True Metrix Glucose Test Strip) strip Start: 11-20-2022 End: 11-24-2022 Blood Sugar Diagnostic (True Metrix Glucose Test Strip) strip Start: 11-24-2022 End: 02-11-2023 Lancets (Unilet Lancets) 30 gauge misc Start: 07-31-2017 End: 11-24-2022 Lancets (Unilet Lancets) 30 gauge misc Start: 02-11-2023 End: 11-12-2023 Lancets (Unilet Lancets) 30 gauge misc Start: 11-12-2023 End: 11-17-2023 Lancets (Unilet Lancets) 30 gauge misc Start: 03-22-2024 End: 09-29-2024 Lancets (Unilet Lancets) 30 gauge misc Start: 11-24-2022 End: 02-11-2023 Lancets (Unilet Lancets) 30 gauge misc Start: 11-17-2023 End: 03-22-2024 Pen Needle, Diab etic (Carefine Pen Needle) 29 gauge x 1/2 needle Start: 05-13-2023 End: 03-29-2024 Pen Needle, Diab etic (Carefine Pen Needle) 29 gauge x 1/2 needle Start: 11-14-2022 End: 05-13-2023 Pen Needle, Diab etic (Carefine Pen Needle) 29 gauge x 1/2 needle Start: 03-29-2024 End: 09-29-2024 Blood Sugar Diagnostic (True Metrix Glucose Test Strip) strip Start: 02-11-2023 Lancets (Unilet Lancets) 30 gauge misc Start: 09-29-2024 Pen Needle, Diab etic (Carefine Pen Needle) 29 gauge x 1/2 needle Start: 09-29-2024 Blood Sugar Diagnostic (True Metrix Glucose Test Strip) strip Start: 07-31-2017 End: 11-20-2022 Blood Sugar Diagnostic (True Metrix Glucose Test Strip) strip Start: 11-20-2022 End: 11-24-2022 Blood Sugar Diagnostic (True Metrix Glucose Test Strip) strip Start: 11-24-2022 End: 02-11-2023 Lancets (Unilet Lancets) 30 gauge misc Start: 07-31-2017 End: 11-24-2022 Lancets (Unilet Lancets) 30 gauge misc Start: 02-11-2023 End: 11-12-2023 Lancets (Unilet Lancets) 30 gauge misc Start: 11-12-2023 End: 11-17-2023 Lancets (Unilet Lancets) 30 gauge misc Start: 03-22-2024 End: 09-29-2024 Lancets (Unilet Lancets) 30 gauge misc Start: 11-24-2022 End: 02-11-2023 Lancets (Unilet Lancets) 30 gauge misc Start: 11-17-2023 End: 03-22-2024 Pen Needle, Diab etic (Carefine Pen Needle) 29 gauge x 1/2 needle Start: 05-13-2023 End: 03-29-2024 Pen Needle, Diab etic (Carefine Pen Needle) 29 gauge x 1/2 needle Start: 11-14-2022 End: 05-13-2023 Pen Needle, Diab etic (Carefine Pen Needle) 29 gauge x 1/2 needle Start: 03-29-2024 End: 09-29-2024 Blood Sugar Diagnostic (True Metrix Glucose Test Strip) strip Start: 02-11-2023 Lancets (Unilet Lancets) 30 gauge misc Start: 09-29-2024 Pen Needle, Diab etic (Carefine Pen Needle) 29 gauge x 1/2 needle Start: 09-29-2024 Blood Sugar Diagnostic (True Metrix Glucose Test Strip) strip Start: 07-31-2017 End: 11-20-2022 Blood Sugar Diagnostic (True Metrix Glucose Test Strip) strip Start: 11-20-2022 End: 11-24-2022 Blood Sugar Diagnostic (True Metrix Glucose Test Strip) strip Start: 11-24-2022 End: 02-11-2023 Lancets (Unilet Lancets) 30 gauge misc Start: 07-31-2017 End: 09-25-2023 Lancets (Unilet Lancets) 30 gauge misc Start: 02-11-2023 End: 11-12-2023 Lancets (Unilet Lancets) 30 gauge misc Start: 11-12-2023 End: 11-17-2023 Lancets (Unilet Lancets) 30 gauge misc Start: 03-22-2024 End: 09-29-2024 Lancets (Unilet Lancets) 30 gauge misc Start: 11-24-2022 End: 02-11-2023 Lancets (Unilet Lancets) 30 gauge misc Start: 11-17-2023 End: 03-22-2024 Pen Needle, Diab etic (Carefine Pen Needle) 29 gauge x 1/2 needle Start: 05-13-2023 End: 03-29-2024 Pen Needle, Diab etic (Carefine Pen Needle) 29 gauge x 1/2 needle Start: 11-14-2022 End: 05-13-2023 Pen Needle, Diab etic (Carefine Pen Needle) 29 gauge x 1/2 needle Start: 03-29-2024 End: 09-29-2024 Blood Sugar Diagnostic (True Metrix Glucose Test Strip) strip Start: 02-11-2023 Lancets (Unilet Lancets) 30 gauge misc Start: 09-29-2024 Pen Needle, Diab etic (Carefine Pen Needle) 29 gauge x 1/2 needle Start: 09-29-2024 Blood Sugar Diagnostic (True Metrix Glucose Test Strip) strip Start: 07-31-2017 End: 11-20-2022 Blood Sugar Diagnostic (True Metrix Glucose Test Strip) strip Start: 11-20-2022 End: 11-24-2022 Blood Sugar Diagnostic (True Metrix Glucose Test Strip) strip Start: 11-24-2022 End: 02-11-2023 Lancets (Unilet Lancets) 30 gauge misc Start: 07-31-2017 End: 11-24-2022 Lancets (Unilet Lancets) 30 gauge misc Start: 02-11-2023 End: 11-12-2023 Lancets (Unilet Lancets) 30 gauge misc Start: 11-12-2023 End: 11-17-2023 Lancets (Unilet Lancets) 30 gauge misc Start: 03-22-2024 End: 09-29-2024 Lancets (Unilet Lancets) 30 gauge misc Start: 11-24-2022 End: 02-11-2023 Lancets (Unilet Lancets) 30 gauge misc Start: 11-17-2023 End: 03-22-2024 Pen Needle, Diab etic (Carefine Pen Needle) 29 gauge x 1/2 needle Start: 05-13-2023 End: 03-29-2024 Pen Needle, Diab etic (Carefine Pen Needle) 29 gauge x 1/2 needle Start: 11-14-2022 End: 05-13-2023 Pen Needle, Diab etic (Carefine Pen Needle) 29 gauge x 1/2 needle Start: 03-29-2024 End: 09-29-2024 Blood Sugar Diagnostic (True Metrix Glucose Test Strip) strip Start: 02-11-2023 Lancets (Unilet Lancets) 30 gauge misc Start: 09-29-2024 Pen Needle, Diab etic (Carefine Pen Needle) 29 gauge x 1/2 needle Start: 09-29-2024 Blood Sugar Diagnostic (True Metrix Glucose Test Strip) strip Start: 07-31-2017 End: 11-20-2022 Blood Sugar Diagnostic (True Metrix Glucose Test Strip) strip Start: 11-20-2022 End: 11-24-2022 Blood Sugar Diagnostic (True Metrix Glucose Test Strip) strip Start: 11-24-2022 End: 02-11-2023 Lancets (Unilet Lancets) 30 gauge misc Start: 07-31-2017 End: 11-24-2022 Lancets (Unilet Lancets) 30 gauge misc Start: 02-11-2023 End: 11-12-2023 Lancets (Unilet Lancets) 30 gauge misc Start: 11-12-2023 End: 11-17-2023 Lancets (Unilet Lancets) 30 gauge misc Start: 03-22-2024 End: 09-29-2024 Lancets (Unilet Lancets) 30 gauge misc Start: 11-24-2022 End: 02-11-2023 Lancets (Unilet Lancets) 30 gauge misc Start: 11-17-2023 End: 03-22-2024 Pen Needle, Diab etic (Carefine Pen Needle) 29 gauge x 1/2 needle Start: 05-13-2023 End: 03-29-2024 Pen Needle, Diab etic (Carefine Pen Needle) 29 gauge x 1/2 needle Start: 11-14-2022 End: 05-13-2023 Pen Needle, Diab etic (Carefine Pen Needle) 29 gauge x 1/2 needle Start: 03-29-2024 End: 09-29-2024 Blood Sugar Diagnostic (True Metrix Glucose Test Strip) strip Start: 02-11-2023 Lancets (Unilet Lancets) 30 gauge misc Start: 09-29-2024 Pen Needle, Diab etic (Carefine Pen Needle) 29 gauge x 1/2 needle Start: 09-29-2024 Blood Sugar Diagnostic (True Metrix Glucose Test Strip) strip Start: 07-31-2017 End: 11-20-2022 Blood Sugar Diagnostic (True Metrix Glucose Test Strip) strip Start: 11-20-2022 End: 11-24-2022 Blood Sugar Diagnostic (True Metrix Glucose Test Strip) strip Start: 11-24-2022 End: 02-11-2023 Lancets (Unilet Lancets) 30 gauge misc Start: 07-31-2017 End: 11-24-2022 Lancets (Unilet Lancets) 30 gauge misc Start: 02-11-2023 End: 11-12-2023 Lancets (Unilet Lancets) 30 gauge misc Start: 11-12-2023 End: 11-17-2023 Lancets (Unilet Lancets) 30 gauge misc Start: 03-22-2024 End: 09-29-2024 Lancets (Unilet Lancets) 30 gauge misc Start: 11-24-2022 End: 02-11-2023 Lancets (Unilet Lancets) 30 gauge misc Start: 11-17-2023 End: 03-22-2024 Pen Needle, Diab etic (Carefine Pen Needle) 29 gauge x 1/2 needle Start: 05-13-2023 End: 03-29-2024 Pen Needle, Diab etic (Carefine Pen Needle) 29 gauge x 1/2 needle Start: 11-14-2022 End: 05-13-2023 Pen Needle, Diab etic (Carefine Pen Needle) 29 gauge x 1/2 needle Start: 03-29-2024 End: 09-29-2024 Blood Sugar Diagnostic (True Metrix Glucose Test Strip) strip Start: 02-11-2023 Lancets (Unilet Lancets) 30 gauge misc Start: 09-29-2024 Pen Needle, Diab etic (Carefine Pen Needle) 29 gauge x 1/2 needle Start: 09-29-2024 Blood Sugar Diagnostic (True Metrix Glucose Test Strip) strip Start: 07-31-2017 End: 11-20-2022 Blood Sugar Diagnostic (True Metrix Glucose Test Strip) strip Start: 11-20-2022 End: 11-24-2022 Blood Sugar Diagnostic (True Metrix Glucose Test Strip) strip Start: 11-24-2022 End: 02-11-2023 Lancets (Unilet Lancets) 30 gauge misc Start: 07-31-2017 End: 11-24-2022 Lancets (Unilet Lancets) 30 gauge misc Start: 02-11-2023 End: 11-12-2023 Lancets (Unilet Lancets) 30 gauge misc Start: 11-12-2023 End: 11-17-2023 Lancets (Unilet Lancets) 30 gauge misc Start: 03-22-2024 End: 09-29-2024 Lancets (Unilet Lancets) 30 gauge misc Start: 11-24-2022 End: 02-11-2023 Lancets (Unilet Lancets) 30 gauge misc Start: 11-17-2023 End: 03-22-2024 Pen Needle, Diab etic (Carefine Pen Needle) 29 gauge x 1/2 needle Start: 05-13-2023 End: 03-29-2024 Pen Needle, Diab etic (Carefine Pen Needle) 29 gauge x 1/2 needle Start: 11-14-2022 End: 05-13-2023 Pen Needle, Diab etic (Carefine Pen Needle) 29 gauge x 1/2 needle Start: 03-29-2024 End: 09-29-2024 Clinical Notes 06-21-2024 to 11-23-2024 Note Date & Type Note Facility 11-23-2024 Progress note [facility] 11-15-2024 Radiology Diagnostic study note [facility] Imaging Services [address] [place], [place] [id number] Lumbar Spine 2 or 3 Views MR#: [id number] Acct: [id number] Name: LINA ORTA Rep #: [id number] : 1940 M 83 From: George Bo MD PCP: Dr. Luna Flaherty DO Status: RE G CLI Study:Lumbar Spine 2 or 3 Views Date of Exam: 11/15/24 Exam# [id number] Ordering Dr: [facility] PROCEDURE: LUMBAR SPINE 2 OR 3 VIEWS 11/15/2024 REASON FOR EXAM: LOWER RIGHT BACK PAIN TECHNIQUE: Procedure Code: RADSPLL Modality: DX Procedure: LUMBAR SPINE 2 OR 3 VIEWS COMPARISON: Prior study dated August 14, 2021. FINDINGS: Vertebrae: Multilevel spondylosis. Loss of height of the superior endplate of the L1 vertebrae. This is new as compared to prior study. Discs: Multilevel disc space narrowing worse at the L2-L3 and L3-L4 levels. Facet joint osteoarthritis. Alignment: Loss of the normal lumbar lordosis. Other: Aortic calcification. Large amount of fecal material is seen in the colon. RAD/Lumbar Spine 2 or 3 Views IMPRESSION: ADVANCED DEGENERATIVE CHANGES OF THE LUMBAR SPINE. Reading Location: [place] [address] CC: Dr. Luna Flaherty DO; MARIAA Garcia ~ Leather Drier: Signed [facility] 10-04-2024 Radiology Diagnostic study note [facility] Imaging Services [address] [place] [address] Abdomen Limited MR#: [id number] Acct: [id number] Name: LINA ORTA Rep #: [id number] : 1940 M 83 From: George Bo MD PCP: Dr. Luna Flaherty DO Status: RE G CLI Study:Abdomen Limited Date of Exam: 07/24 Exam# [id number] Ordering Dr: Do jorge Flaherty DO PROCEDURE: ABDOMEN LIMITED 10/04/2024 REASON FOR EXAM: NAUSEA WITH FATTY FOODS COMPARISON: None FINDINGS: Liver: Diffusely echogenic suggesting fatty infiltration. The liver measures 16.1 cm. Gallbladder: There are 2, small polyps adherent to the gallbladder wall. The larger measures 6 mm x 6 mm x 4 mm. No evidence of gallstones. Common bile duct: Normal measuring 5.1 mm . Pancreas: Visualized portions are unremarkable. The distal body and tail are obscured by bowel gas. Other: Visualized portions of the right kidney are unremarkable. No right upperquadrant ascites. US/Abdomen Limited IMPRESSION: No evidence of gallstones. There are 2, small gallbladder polyps adherent to the gallbladder wall. Fatty infiltration of the liver. Reading Location: [id number] CC: Dr. Luna Flaherty, DO ~ Leather Drier: Signed [facility] 09-29-2024 Evaluation note Diagnosis Onset Date Resolution Dyspnea on exertion acute September 29, 2024 2:02pm CKD (chronic kidney disease) stage 1, GFR 90 ml/min or greater chronic September 29 2:02pm Epigastric pain chronic August 2:02pm History of hypothyroidism chronic September 29, 2024 2:02pm HTN (hypertension) chronic September 012024 2:02pm Type II diabetes mellitus chronic September 29, 2024 2:02pm [facility] Work Phone: 1(351) 155-249907-31-2025 Evaluation note* Diagnosis Onset Date Resolution Status Admit Date Dyspnea on exertion acute September 29, 2024 2:02pm CKD (chronic kidney disease) stage 1, GFR 90 ml/min or greater chronic September 29, 2024 2:02pm Epigastric pain chronic August 2:02pm History of hypothyroidism chronic September 29, 2024 2:02pm HTN (hypertension) chronic September 012024 2:02pm Type II diabetes mellitus chronic September 29, 2024 2:02pm Low back pain acute October 312024 12:00pm Lumbar strain acute October 312024 12:00pm [facility] Work Phone: 1(310) 174-241207-31-2025 Evaluation note* Diagnosis Onset Date Resolution Status Admit Date Dyspnea on exertion acute September 29, 2024 2:02pm CKD (chronic kidney disease) stage 1, GFR 90 ml/min or greater chronic September 29, 2024 2:02pm Epigastric pain chronic August 2:02pm History of hypothyroidism chronic September 29, 2024 2:02pm HTN (hypertension) chronic September 012024 2:02pm Type II diabetes mellitus chronic September 29, 2024 2:02pm Low back pain acute October 312024 12:00pm Lumbar strain acute October 312024 12:00pm Compression fracture of L1 lumbar vertebra acute November 23, 2024 10:33am [facility] Work Phone: 1(457) 276-895804-22-2025 Evaluation note* Diagnosis Onset Date Resolution Status Admit Date Trigger finger of right hand acute June 21, 2024 9:23am CKD (chronic kidney disease) stage 1, GFR 90 ml/min or greater chronic June 21, 2024 9:23am HLD (hyperlipidemia) chronic Apri l 2024 9:23am HTN (hypertension) chronic June 21, 2024 9:23am Hypothyroidism chronic May 9:23am Type II diabetes mellitus chronic June 21, 2024 9:23am CKD (chronic kidney disease) stage 1, GFR 90 ml/min or greater chronic September 29, 2024 2:02pm Epigastric pain chronic August 2:02pm History of hypothyroidism chronic September 29, 2024 2:02pm HTN (hypertension) chronic September 012024 2:02pm Type II diabetes mellitus chronic September 29, 2024 2:02pm [facility] Work Phone: 1(189) 806-995204-22-2025 Evaluation note* Diagnosis Onset Date Resolution Status Admit Date Trigger finger of right hand acute June 21, 2024 9:23am CKD (chronic kidney disease) stage 1, GFR 90 ml/min or greater chronic June 21, 2024 9:23am HLD (hyperlipidemia) chronic Apri l 2024 9:23am HTN (hypertension) chronic June 21, 2024 9:23am Hypothyroidism chronic May 9:23am Type II diabetes mellitus chronic June 21, 2024 9:23am Dyspnea on exertion acute September 29, 2024 2:02pm CKD (chronic kidney disease) stage 1, GFR 90 ml/min or greater chronic September 29, 2024 2:02pm Epigastric pain chronic August 2:02pm History of hypothyroidism chronic September 29, 2024 2:02pm HTN (hypertension) chronic September 012024 2:02pm Type II diabetes mellitus chronic September 29, 2024 2:02pm [facility] Work Phone: Evaluation note* Diagnosis Onset Date Resolution Status Shoulder pain, right acute Hypothyroidism chronic Type II diabetes mellitus ronic Shoulder pain, right acute HTN (hypertension) [facility] Work Phone: Evaluation note* Diagnosis Onset Date Resolution Status HLD (hyperlipidemia) chronic HTN (hypertension) chronic Hypothyroidism chronic Type II diabetes mellitus ch ronic Acute low back pain with rad icular symptoms, duration less than 6 weeks acute HTN (hypertension) chronic [id number] [facility] Work Phone: Evaluation note* Diagnosis Onset Date Resolution Status HTN (hypertension) chronic Hypothyroidism chronic Type II diabetes mellitus ch ronic Nocturia associated with benign prostatic hyperplasia acute Epigastric pain chronic HTN (hypertension) chronic Type II diabetes mellitus [facility] Work Phone: Evaluation note* Diagnosis Onset Date Resolution Status Nocturia associated with benign prostatic hyperplasia acute Epigastric pain chronic HTN (hypertension) chronic Type II diabetes mellitus ch ronic HTN (hypertension) chronic Hypothyroidism chronic Type II diabetes mellitus [facility] Work Phone: Evaluation note* Diagnosis Onset Date Resolution Status HTN (hypertension) chronic Hypothyroidism chronic Type II diabetes mellitus ch ronic Epigastric pain chronic History of hypothyroidism ch ronic HTN (hypertension) chronic Type II diabetes mellitus [facility] Work Phone: Evaluation note* Diagnosis Onset Date Resolution Status CAD (coronary artery disease) chronic Epigastric pain chronic HTN (hypertension) chronic Type II diabetes mellitus ch ronic HTN (hypertension) chronic Type II diabetes mellitus [facility] Work Phone: Progress note Author Luna Flaherty [facility] Note Date/Time November 23, 2024 11:19am [facility] [address] [place] [address] [place] [address] OFFICE VISIT Date of Service: 11/23/24 MR#: [id number] Acct: [id number] Name: LINA ORTA Rep #: [id number] : 1940 Provider: Dr. Isaias Flaherty, DO Age/Sex: 83/M [place] [facility] [place] Status: Signed Intake Vital Signs 09/29/24 14:17 11/15/24 12:10 11/23/24 10:48 Height 6 ft 6 ft 6 ft Weight: 170 lb BMI 23.0 BP 152/84 H Blood Pressure Location Lt brachial Position Sitting Respiration 16 Pulse 90 Pulse Source Monitor Temp 97.9 F Temp Source Temporal Pulse Oximetry (%) 98 Oxygen Delivery Method room air Intake Visit Reasons: BACK PAIN Chief Complaint: Back Pain Cutter Down Required: No Is patient in pain?: Yes (lumbar back) Pain scale (1-10): 3 Allergies meloxicam (From Mobic) Allergy (Severe, Verified 11/23/24 10:34) unknown pentazocine (From Talwin) Allergy (Severe, Verified 11/23/24 10:34) unknown metaxalone Adverse Reaction (Intermediate, Verified 11/23/24 10:47) Nausea Medications ?Medication ?Instructions ?Recorded ?Confirmed ?Type blood sugar diagnostic (True #100 ea 02/11/23 11/23/24 Rx Metrix Glucose Test Strip) blood-glucose meter #1 ea 02/11/23 11/23/24 Rx atorvastatin 20 mg tablet 20 mg PO QDAY #90 tabs 09/2911/23/24 Rx lancets 30 gauge (Unilet Lancets) #100 ea 09/29/24 Rx levothyroxine 100 mcg tablet 100 mcg PO DAILY #100 tab s 09/29/24 11/23/24 Rx metformin 500 mg tablet,extended 500 mg PO BID #180 ta bs 09/29/24 11/23/24 Rx release 24 hr omeprazole 20 mg capsule,delayed 20 mg PO DAILY #100 c aps 09/29/24 11/23/24 Rx release pen needle, diabetic 29 gauge x #100 ea 09/29/2411/23 Rx 1/2 (CareFine Pen Needle) sitagliptin phosphate 100 mg 100 mg PO DAILY #100 tabs 09/29/24 11/23/24 Rx tablet (Januvia) valsartan 160 1 tab PO DAILY #90 TABLETS 0 09/29/24 11/23/24 Rx mg-hydrochlorothiazide 12.5 mg tablet insulin glargine 100 unit/mL (3 40 unit (0.4 mL) subcu t QHS #15 mL 11/08/24 11/23/24 Rx mL) subcutaneous pen (Lantus Solostar U-100 Insulin) Have you fallen in the past year?: No Nurse's Note: Pt inquiring about stress test results as he was never notifed. It appears it came through other provider. Pt is here for continued back pain, saw Rocco Gates at the [facility] clinic on 11/15/24. Told xray was WNL. Pt states the pain is staying the same and si nce ithas been ongoing 24 days despite treatment of accupuncture, tens, chiropractor, metaloxone, and cyclobenzaprine. Pt states the pain is only alleviated by layingflat w/ his recliner and the pain goes to a 1/10. It is always painful. Pt states currently he is at a 3/10. When he moves at all or stands it is a 20/20 Pt denies numbness, or tingling, or radiating pain into other parts of body. [facility] Medical History Lumbar strain Low back pain Shingles (herpes zoster) polyneuropathy Acute urticaria Gastroenteritis GERD (gastroesophageal reflux disease) Hypothyroidism Surgical History History of back surgery History of left knee surgery History of appendectomy History of cardiac cath Family History Father Heart disease Mother CVA (cerebral vascular accident) Hypertension Breast cancer Social History Smoking Status: Former smoker how long ago did patient quit smokin alcohol intake: never HPI HPI Chief Complaint: Back Pain Details: LINA ORTA, is a 83 M who presents to the office today for severe back pain. About 3 weeks ago he bent over and had a severe pain in his back. In spite of the severity of the pain he went on a cruise to [place] but was in a wheelchair all the time because he was unable to walk. On the cruise ship he had treatments of acupuncture and cupping but they did not help and when he returnedhe saw chiropractor. The first treatment was exquisitely painful the patient said it was even more severe than the pain he was having but the last 2 treatments were not so bad. The chiropractor told him that his leg length was evened off but has not done anything for the pain. Reviewing his x-rays it was reported by the radiologist that he has some changes in the superior endplate ofL1 which looks like it could be an acute compression fracture. ROS Const Constitutional: No body ache, chills, excessive sweating, fatigue, fever(s), frequent falls, headache(s), snoring, weakness, sleep problems or change in appetite Eyes Eyes: No blurry vision, change in vision, eye pain or Light sensitivity ENT ENT: No abnormal hearing, ear or mastoid pain, tinnitus, nasal congestion, headache(s), neck pain or sore throat Resp Respiratory: No cough, shortness of breath, snoring or wheezing Cardio Cardiology: No chest pain at rest, chest pain with exertion, excessive sweating,shortness of breath, dyspnea on exertion, lightheadedness, orthopnea or palpitations Gastro GI: No abdominal pain, change in bowel habits, constipation, cramping, diarrhea,nausea/dyspepsia or vomiting Genitourinary Male: No burning urination, painful urination, urinary incontinence or urinary frequency Musc Musculoskeletal: Positive for abnormal gait, back pain and limited range of motion; No joint pain, neck pain or numbness Skin Skin: No dry skin, redness, lesions, itchy eyes, rash or wounds Neuro Neurology: Positive for abnormal gait; No abnormal hearing, weakness, frequent falls, headache(s), memory loss or numbness Psych Psychiatric: No anxiety, No change in appetite, No depression, No memory loss and No Thoughts of harming yourself/Others Endo Endocrine: No cold intolerance, excessive sweating, fatigue, flushing, heat intolerance, increased thirst/drinking or increased hunger Aller/Imm Allergy/Immunologic: No itchy eyes, seasonal allergy symptoms, hives or wheezing Raz/Lymp Hematologic/Lymphatic: No easy bleeding, easy bruising, enlarged lymph nodes or other Exam Const General: cooperative and in distress severe Musc Thoracic/Lumbar Spine: straight leg raise negative bilaterally and lumbar spinaltenderness at L1 and at L2 Coding Level of Care Code Off vis,est,level 3 Diagnoses Compression fracture of L1 lumbar vertebra S32.010A Assessment and Plan Assessment and Plan (1) Compression fracture of L1 lumbar vertebra: Status: Acute Comment: Patient is willing to self pay to get MRI ELIZABETH Plan: Because of the severity of the pain and the fact that it is not a radicular pain, in conjunction with the x-ray finding of a possible acute change in the superior endplate of L1, I think the chance of a compression fracture is quite high. His pain is severe sitting intolerable standing and pretty much goes awayonce he is in a laying down position. Will get an MRI soon as possible and if Ihave trouble getting it ordered I will consult with the spinal surgeon. Orders: Orders Spine Lumbar W/WO Contrast Today S32.010A - Wedge compression fracture of first lumbar vertebra, initial encounter for closed fracture Clinical Quality Measures Falls Risk Screening/Assistive Devices Have you fallen in the past year?: No 11/23/24 1122 <Electronically signed by Luna collins DO> Date _ Luna Flaherty DO Cosigner Signature: Date (if applicable) CC: ~ [facility] Work Phone: Reason for referral (narrative)No reason for referral information availableAlhambra [facility] Work Phone: Summary Purpose Family History Relationship Condition Age at Onset Recorded Date/T melissa father Cardiac disease Unknown mother Cerebrovascular accident (CVA) Unknown Hypertension Unknown Malignant neoplasm of breast Unknown Advance Directives No Advanced Directives Records FoundNo Advanced Directives Records Found Chief Complaint and Reason for Visit Chief Complaint 3 M FU SHOULDER PAIN SHOT IN SHOULDER covid test for travel Reason for Visit Shoulder pain, right Hypothyroidism Type II diabetes mellitus Shoulder pain, right HTN (hypertension) Chief Complaint 3 M FU BACK IS OUT EORDERS Covid test for cruise Reason for Visit HLD (hyperlipidemia) HTN (hypertension) Hypothyroidism Type II diabetes mellitus Acute low back pain with radicular symptoms, duration less than 6 weeks HTN (hypertension) [id number] Chief Complaint 3 M FU 3 M FU Reason for Visit HTN (hypertension) Hypothyroidism Type II diabetes mellitus Nocturia associated with benign prostatic hyperplasia Epigastric pain HTN (hypertension) Type II diabetes mellitus Chief Complaint 3 M FU 3 M FU Reason for Visit Nocturia associated with benign prostatic hyperplasia Epigastric pain HTN (hypertension) Type II diabetes mellitus HTN (hypertension) Hypothyroidism Type II diabetes mellitus Chief Complaint 3 M FU 3 M FU Reason for Visit HTN (hypertension) Hypothyroidism Type II diabetes mellitus Epigastric pain History of hypothyroidism HTN (hypertension) Type II diabetes mellitus Chief Complaint 3 M FU 1 m fu Reason for Visit CAD (coronary artery disease) Epigastric pain HTN (hypertension) Type II diabetes mellitus HTN (hypertension) Type II diabetes mellitus Chief Complaint Admit Date 3 M FU June 21, 2024 9:2 3am 3 m fu September 29, 2024 2:02 pm Reason for Visit Admit Date Trigger finger of right hand June 21, 2024 9:23am CKD (chronic kidney disease) stage 1, GFR 90 ml/min or greater June 21, 2024 9:23am HLD (hyperlipidemia) June 21, 2024 9: 23am HTN (hypertension) June 21, 2024 9:2 3am Hypothyroidism June 21, 2024 9:2 3am Type II diabetes mellitus June 21 9:23am CKD (chronic kidney disease) stage 1, GFR 90 ml/min or greater September 29, 2024 2:02pm Epigastric pain September 29, 2024 2:02 pm History of hypothyroidism September 29 2:02pm HTN (hypertension) September 29, 2024 2:02 pm Type II diabetes mellitus September 29 2:02pm Chief Complaint Admit Date 3 M FU June 21, 2024 9:2 3am 3 m fu September 29, 2024 2:02 pm NAUSEA WITH FATTY FOODS,EPIGASTRIC PAIN October 04, 2024 9:56am Reason for Visit Admit Date Trigger finger of right hand June 21, 2024 9:23am CKD (chronic kidney disease) stage 1, GFR 90 ml/min or greater June 21, 2024 9:23am HLD (hyperlipidemia) June 21, 2024 9: 23am HTN (hypertension) June 21, 2024 9:2 3am Hypothyroidism June 21, 2024 9:2 3am Type II diabetes mellitus June 21 9:23am Dyspnea on exertion September 29, 2024 2:02 pm CKD (chronic kidney disease) stage 1, GFR 90 ml/min or greater September 29, 2024 2:02pm Epigastric pain September 29, 2024 2:02 pm History of hypothyroidism September 29 2:02pm HTN (hypertension) September 29, 2024 2:02 pm Type II diabetes mellitus September 29 2:02pm Chief Complaint Admit Date 3 m fu September 29, 2024 2:02 pm NAUSEA WITH FATTY FOODS,EPIGASTRIC PAIN October 04, 2024 9:56am CHEST PAIN October 19, 2024 9: 42am CHEST PAIN October 19, 2024 6: 26pm Reason for Visit Admit Date Dyspnea on exertion September 29, 2024 2:02 pm CKD (chronic kidney disease) stage 1, GF R 90 ml/min or greater September 29, 2024 2:02pm Epigastric pain September 29, 2024 2:02 pm History of hypothyroidism September 29 2:02pm HTN (hypertension) September 29, 2024 2:02 pm Type II diabetes mellitus September 29 2:02pm Chief Complaint Admit Date 3 m fu September 29, 2024 2:02 pm NAUSEA WITH FATTY FOODS,EPIGASTRIC PAIN October 04, 2024 9:56am CHEST PAIN October 19, 2024 9: 42am CHEST PAIN October 19, 2024 6: 26pm back pain November 15, 2024 12:00pm Lower Right Back Pain November 15 12:50pm Reason for Visit Admit Date Dyspnea on exertion September 29, 2024 2:02 pm CKD (chronic kidney disease) stage 1, GFR 90 ml/min or greater September 29, 2024 2:02pm Epigastric pain September 29, 2024 2:02 pm History of hypothyroidism September 29 2:02pm HTN (hypertension) September 29, 2024 2:02 pm Type II diabetes mellitus September 29 2:02pm Low back pain November 15, 2024 12:00pm Lumbar strain November 15, 2024 12:00pm Chief Complaint Admit Date 3 m fu September 29, 2024 2:02 pm NAUSEA WITH FATTY FOODS,EPIGASTRIC PAIN October 04, 2024 9:56am CHEST PAIN October 19, 2024 9: 42am CHEST PAIN October 19, 2024 6: 26pm back pain November 15, 2024 12:00pm Lower Right Back Pain November 15 12:50pm BACK PAIN November 23, 2024 10:33am possible compression fracture November 25, 2024 2:42pm Reason for Visit Admit Date Dyspnea on exertion September 29, 2024 2:02 pm CKD (chronic kidney disease) stage 1, GFR 90 ml/min or greater September 29, 2024 2:02pm Epigastric pain September 29, 2024 2:02 pm History of hypothyroidism September 29 2:02pm HTN (hypertension) September 29, 2024 2:02 pm Type II diabetes mellitus September 29 2:02pm Low back pain November 15, 2024 12:00pm Lumbar strain November 15, 2024 12:00pm Compression fracture of L1 lumbar verteb ra November 23, 2024 10:33am Additional Source Comments (unrecognized sect ion and content) No Status Records FoundNo Status Records Found INFORMATION SOURCE (unrecogn ized section and content) DATE CREATED AUTHOR 08/21/2017 [facility] ([place]) DATE CREATED AUTHOR AUTHOR'S ORGANIZ ATION 12/02/2024 [facility] y [facility] Goals (unrecognized section and content) Goals may be documented in a n alternate sectionGoals may be documented in an alternate sectionGoals may be documented in an alternate sectionGoals may be documented in an alternate sectionGoals may be documented in an alternate sectionGoals may be documented in an alternate sectionGoals may be documented in an alternate sectionGoals may be documented in an alternate sectionGoals may be documented in an alternate sectionGoals may be documented in an alternate sectionGoals may be documented in an alternate sectionGoals may be documented in an alternate sectionGoals may be documented in an alternate section Care Teams (unrecognized sec tion and content) Team Status: Active Member Role Status Dates Dr. Luna Flaherty DO Family Provider Active Dr. Luna Flaherty DO Primary Care Provider Active Team Status: Inactive Member Role Status Dates Dr. Luna Flaherty DO Primary Care Pr ovider, Attending Provider, Referring Provider Active Team Status: Inactive Member Role Status Dates Dr. Luna Flaherty DO Primary Care Provider, Attend ing Provider Active Team Status: Active Member Role/Relationship Status Dates Dr. Luna Flaherty DO Primary Care Provider Active Team Status: Inactive Member Role/Relationship Status Dates Dr. Luna Flaherty DO Primary Care Provider Active Start: June 21, 2024 End: June 21, 2024 Dr. Luna Flaherty DO Attending Provider Active Start: June 21, 2024 End: June 21, 2024 Dr. Luna Flaherty DO Referring Provider Active Start: June 21, 2024 End: June 21, 2024 Team Status: Inactive Member Role/Relationship Status Dates Dr. Luna Flaherty DO Primary Care Provider Active Start: September 29, 2024 End: September 29, 2024 Dr. Luna Flaherty DO Attending Provider Active Start: September 29, 2024 End: September 29, 2024 Dr. Luna Flaherty DO Referring Provider Active Start: September 29, 2024 End: September 29, 2024 Team Status: Inactive Member Role/Relationship Status Dates Dr. Luna Flaherty DO Primary Care Provider Active Start: October 04, 2024 End: October 04, 2024 Dr. Luna Flaherty DO Attending Provider Active Start: October 04, 2024 End: October 04, 2024 Dr. Luna Flaherty DO Referring Provider Active Start: October 04, 2024 End: October 04, 2024 Team Status: Inactive Member Role/Relationship Status Dates Dr. Luna Flaherty DO Primary Care Provider Active Start: September 29, 2024 End: September 29, 2024 Dr. Luna Falherty DO Attending Provider Active Start: September 29, 2024 End: September 29, 2024 Dr. Luna Flaherty DO Referring Provider Active Start: September 29, 2024 End: September 29, 2024 Team Status: Inactive Member Role/Relationship Status Dates Dr. Luna Flaherty DO Primary Care Provider Active Start: October 04, 2024 End: October 04, 2024 Dr. Luna Flaherty DO Attending Provider Active Start: October 04, 2024 End: October 04, 2024 Dr. Luna Flaherty DO Referring Provider Active Start: October 04, 2024 End: October 04, 2024 Team Status: Inactive Member Role/Relationship Status Dates Dr. Luna Flaherty DO Primary Care Provider Active Start: October 19, 2024 End: October 19, 2024 Dr. Luna Flaherty DO Attending Provider Active Start: October 19, 2024 End: October 19, 2024 Dr. Luna Flaherty DO Referring Provider Active Start: October 19, 2024 End: October 19, 2024 Team Status: Active Member Role/Relationship Status Dates Dr. Luna Flaherty DO Primary Care Provider Active Start: October 19, 2024 Dr. Luna Flaherty DO Referring Provider Active Start: October 19, 2024 Dr. Luna Flaherty DO Other Provider Active S tart: October 19, 2024 Dr. Homer Grey MD Attending Provider Active S tart: October 19, 2024 Team Status: Inactive Member Role/Relationship Status Dates Dr. Luna Flaherty DO Primary Care Provider Active Start: November 15, 2024 End: November 15, 2024 Dr. Luna Flaherty DO Referring Provider Active Start: November 15, 2024 End: November 15, 2024 MARIAA Tipton Attending Provider Active Start: November 15, 2024 End: November 15, 2024 Team Status: Active Member Role/Relationship Status Dates Dr. Luna Flaherty DO Primary Care Provider Active Start: November 15, 2024 Victor M LEROY PA Attending Provider Active Start: November 15, 2024 MARIAA Tipton Referring Provider Active Start: November 15, 2024 Team Status: Active Member Role/Relationship Status Dates Dr. Luna Flaherty DO Primary care physician Active Team Status: Inactive Member Role/Relationship Status Dates Dr. Luna Flaherty DO Primary care physician Active Start: September 29, 2024 End: September 29, 2024 Dr. Luna Flaherty DO Attending physician Active Start: September 29, 2024 End: September 29, 2024 Dr. Luna Flaherty DO Referring Provider Active Start: September 29, 2024 End: September 29, 2024 Team Status: Inactive Member Role/Relationship Status Dates Dr. Luna Flaherty DO Primary care physician Active Start: October 04, 2024 End: October 04, 2024 Dr. Luna Flaherty DO Attending physician Active Start: October 04, 2024 End: October 04, 2024 Dr. Luna Flaherty DO Referring Provider Active Start: October 04, 2024 End: October 04, 2024 Team Status: Inactive Member Role/Relationship Status Dates Dr. Luna Flaherty DO Primary care physician Active Start: October 19, 2024 End: October 19, 2024 Dr. Luna Flaherty DO Attending physician Active Start: October 19, 2024 End: October 19, 2024 Dr. Luna Flaherty DO Referring Provider Active Start: October 19, 2024 End: October 19, 2024 Team Status: Active Member Role/Relationship Status Dates Dr. Luna Flaherty DO Primary care physician Active Start: October 19, 2024 Dr. Luna Flaherty DO Referring Provider Active Start: October 19, 2024 Dr. Luna Flaherty DO Nurse Practitioner Active Start: October 19, 2024 Dr. Homer Grey MD Attending physician Active Start: October 19, 2024 Team Status: Inactive Member Role/Relationship Status Dates Dr. Luna Flaherty DO Primary care physician Active Start: November 15, 2024 End: November 15, 2024 Dr. Luna Flaherty DO Referring Provider Active Start: November 15, 2024 End: November 15, 2024 Victor M LEROY PA Attending physician Active Start: November 15, 2024 End: November 15, 2024 Team Status: Inactive Member Role/Relationship Status Dates Dr. Luna Flaherty DO Primary care physician Active Start: November 15, 2024 End: November 15, 2024 Victor M LEROY PA Attending physician Active Start: November 15, 2024 End: November 15, 2024 Victor M LEROY PA Referring Provider Active Start: November 15, 2024 End: November 15, 2024 Team Status: Inactive Member Role/Relationship Status Dates Dr. Luna Flaherty DO Primary care physician Active Start: November 23, 2024 End: November 23, 2024 Dr. Luna Flaherty DO Attending physician Active Start: November 23, 2024 End: November 23, 2024 Dr. Luna Flaherty DO Referring Provider Active Start: November 23, 2024 End: November 23, 2024 Team Status: Active Member Role/Relationship Status Dates Dr. Luna Flaherty DO Primary care physician Active Start: November 25, 2024 Dr. Luna Flaherty DO Attending physician Active Start: November 25, 2024 Dr. Luna Flaherty DO Referring Provider Active Start: November 25, 2024 Team Status: Inactive Member Role/Relationship Status Dates Dr. Luna Flaherty DO Primary care physician Active Start: November 25, 2024 End: November 25, 2024 Dr. Luna Flaherty DO Attending physician Active Start: November 25, 2024 End: November 25, 2024 Dr. Luna Flaherty DO Referring Provider Active Start: November 25, 2024 End: November 25, 2024 FOR RECORDS PERTAINING TO PATIENTS WHO ARE OR HAVE BEEN ENROLLED IN A CHEMICAL DEPENDENCY/SUBSTANCEABUSE PROGRAM, SOME INFORMATION MAY BE OMITTED. This clinical summary was aggregated from multiple sources. Caution should be exercised in using it in the provision of clinical care. This summary normalizes information from multiple sources, and as a consequence, information in this document may materially change the coding, format and clinical context of patient data. In addition, data may be omitted in some cases. CLINICAL DECISIONS SHOULD BE BASED ON THE PRIMARY CLINICAL RECORDS. [employer] [facility]. provides no warranty or guarantee of the accuracy or completeness of information in this document.
[2024-12-03 15:29] LABS: Lipase 57 U/L (13-75)
[2024-12-03 15:53] LABS: AST(SGOT) 29 U/L (<=37); Alanine Aminotransfer ALT/SGPT 25 U/L (<=46); Albumin, Serum 3.6 g/dL (3.4-4.8); Alkaline Phosphatase 91 U/L (40-129); Anion Gap 23 (5-15); BUN/Creat Ratio UNABLE TO CALCULATE RATIO (10-20); Carbon Dioxide 19.5 mmol/L (21.0-32.0); Chloride 84 mmol/L (98-108); Globulin 6.1 g/dL (2.2-4.2); Glucose 58 mg/dL (70-99); Potassium 4.2 mmol/L (3.3-5.1)
[2024-12-03 16:00] VITALS: BP 156/56; PULSE 91; O2SAT 99
[2024-12-03 16:09] LABS: BUN 113 mg/dL (4-19); Calcium,Total 14.6 mg/dL (7.6-11.0)
[2024-12-03 16:43] VITALS: BP 143/58; PULSE 90; RESP 20; TEMP 35.9; O2SAT 100; BMI 25.0
--- NOTE | 2024-12-03 17:03 | PCM.HP.STD ---
HPI - General General Date of Admission: 12/03/24 Date of Service: 12/03/24 Chief Complaint: N/V, generalized weakness HPI Narrative LINA ORTA, is a 83-year-old male history of hypothyroidism, diabetes, GERD, hypertension who presented to [facility] ED 12/03/24 with nausea and vomiting. He was recently diagnosed with an L1 compression fracture and has an upcoming kyphoplasty. Currently feeling dehydrated and has had intermittent nausea and vomiting for weeks. Also feeling generally weak and unwell. In the ED temp 96.5, heart rate 88, blood pressure 167/80, respiratory rate 16 pulse ox 97% on room air. CBC with white count of 8, hemoglobin 10.7, platelet count 206. Sodium 126, bicarb 19.5, gap of 23, BUN 113 with a creatinine of 8.56, glucose 58 and calcium 14.6. Patient given 2 L of IV fluids and hospitalist consulted for admission for acute kidney failure. Patient evaluated bedside with present. They report that he was found to have a compression fracture at the end of September, since that time he is intermittently been having problems with nausea and vomiting, he is felt generally weak and had very poor p.o. intake specially for the past 2 weeks. Had been urinating with a little bit of burning at times and suprapubic discomfort however in the ED unable to urinate. Denies any diarrhea and reports he is actually been having problems with constipation. No chest pain or current shortness of breath, denies taking any NSAIDs for his back pain. [facility] Medical History Lumbar strain Low back pain Shingles (herpes zoster) polyneuropathy Acute urticaria Gastroenteritis GERD (gastroesophageal reflux disease) Hypothyroidism Home Medications ?Medication ?Instructions ?Recorded ?Last Taken ?Type blood sugar diagnostic (True #100 ea 02/11/23 Unknown Rx Metrix Glucose Test Strip) blood-glucose meter #1 ea 02/11/23 Unknown Rx atorvastatin 20 mg tablet 20 mg PO QDAY #90 tabs 09/29/24 12/02/24 Rx lancets 30 gauge (Unilet Lancets) #100 ea 09/29/24 Unknown Rx levothyroxine 100 mcg tablet 100 mcg PO DAILY #100 tabs 09/29/24 12/03/24 Rx metformin 500 mg tablet,extended 500 mg PO BID #180 tabs 09/29/24 12/03/24 10:00 Rx release 24 hr omeprazole 20 mg capsule,delayed 20 mg PO DAILY #100 caps 09/29/24 12/03/24 Rx release pen needle, diabetic 29 gauge x #100 ea 09/29/24 Unknown Rx 1/2 (CareFine Pen Needle) sitagliptin phosphate 100 mg 100 mg PO DAILY #100 tabs 09/29/24 12/03/24 Rx tablet (Januvia) valsartan 160 1 tab PO DAILY #90 TABLETS 09/29/24 12/03/24 Rx mg-hydrochlorothiazide 12.5 mg tablet ondansetron 4 mg disintegrating 4 mg PO Q8H PRN nausea and 11/29/24 12/02/24 Rx tablet vomiting #14 tabs insulin glargine 100 unit/mL (3 21 unit subcut QHS 12/03/24 12/02/24 History mL) subcutaneous pen (Lantus Solostar U-100 Insulin) magnesium 250 mg tablet 250 mg PO QHS 12/03/24 12/02/24 History Allergy/AdvReac Type Severity Reaction Status Date / Time meloxicam (From Mobic) Allergy Severe unknown Verified 12/03/24 14:09 pentazocine (From Talwin) Allergy Severe unknown Verified 12/03/24 14:09 metaxalone AdvReac Intermediate Nausea Verified 12/03/24 14:09 Family History Father Heart disease Mother CVA (cerebral vascular accident) Hypertension Breast cancer Surgical History History of back surgery History of left knee surgery History of appendectomy History of cardiac cath Social History Smoking Status: Never smoker how long ago did patient quit smokin alcohol intake: never ROS ROS Narrative General: Denies fever/chills HENT: stuffy nose, denies sore throat EYES: Denies changes in vision Resp: Denies cough, not presently feeling short of breath Cardiac: Denies chest pain GI: Has had intermittent nausea and vomiting with constipation and has had some suprapubic discomfort : Denies changes in urination Extremity: Denies swelling MSK: Generalized weakness with no focal complaints Neuro: Denies any numbness/tingling Heme: Denies any bleeding or bruising Skin: Denies rashes Psychiatric: No complaints voiced Vital Signs Vital Signs Vital Signs: 12/03/24 14:09 12/03/24 16:00 12/03/24 16:43 Temperature 96.5 F L 96.6 F L Temperature Source Temporal Pulse Rate 88 91 90 Respiratory Rate 16 20 H Blood Pressure 167/80 H 156/56 H 143/58 H Blood Pressure Mean 109 86 86 Pulse Ox 97 99 100 Oxygen Delivery Method Room Air Weight Weight: 83.9 kg Body Mass Index (BMI) 25.0 Physical Exam Narrative General: Alert, oriented, no apparent distress HEENT: Atraumatic, normocephalic Eyes: Anicteric, normal conjunctiva, extraocular movements grossly intact Neck: Supple Respiratory: Clear to auscultation bilaterally, normal respiratory effort Cardiovascular: Regular rate GI: Soft, does have some slight discomfort mostly in the suprapubic region Extremities: No edema Musculoskeletal: Moving all extremities Neuro: No overt focal neurological deficits Skin: No rashes appreciated Psych: Cooperative Results Lab / Micro Data 12/03/24 14:24 12/03/24 14:24 Labs: Laboratory Results - last 24 hr 12/03/24 14:24: WBC 8.0, RBC 2.96 L, Hgb 10.7 L, Hct 28.9 L, MCV 97.6 H, MCH 36.1 H, MCHC 37.0 H, RDW Std Deviation 40.3, RDW Coeff of Scotty 11.3 L, Plt Count 206, MPV 9.6, Immature Gran % (Auto) 0.400, Neut % (Auto) 76.6 H, Lymph % (Auto) 14.1 L, Hunt % (Auto) 8.6, Eos % (Auto) 0.2, Baso % (Auto) 0.1, Absolute Neuts (auto) 6.2, Absolute Lymphs (auto) 1.13, Nucleated RBC % 0, Sodium 126 L, Potassium 4.2, Chloride 84 L, Carbon Dioxide 19.5 L, Anion Gap 23 H, BUN 113 H*, Creatinine 8.56 H*, Est GFR (MDRD) Non-Af 6 L, BUN/Creatinine Ratio UNABLE TO CALCULATE L, Glucose 58 L, Calcium 14.6 H*, Total Bilirubin 0.70, AST 29, ALT 25, Alkaline Phosphatase 91, Total Protein 9.6 H, Albumin 3.6, Globulin 6.1 H, Albumin/Globulin Ratio 0.6 L, Lipase 57 Assessment & Plan Assessment/Plan (1) Acute renal failure: PLAN: Plan #Acute kidney failure -Patient with a creatinine around 1.5 at baseline with most recent value 9 months ago being 1.5 to - Presenting now with a creatinine of 8.56 - Bicarb 19.5 - Patient not hyperkalemic - Vitally stable and not volume overloaded - Patient alert, no seizure activity, confusion, altered mental status - Presently does not seem to have any indications for emergent dialysis - Suspect that patient's nausea and vomiting with very poor p.o. intake on top of continuing to take his valsartan/hydrochlorothiazide caused or largely contributed to his worsening renal failure - Patient reportedly had been urinating at home and even urinated this morning however in the ED unable to urinate and has 280 on bladder scan - Unclear if there has been an obstructive component to this as well given patient's report of urinating okay prior to coming in - Will have [place] catheter placed given patient reporting he is unable to urinate in the ED and bladder scan shows 280 - IV fluids - Will check UA given reports of suprapubic discomfort - Check urine studies - Kidney and bladder ultrasound -Check CK - Discussed with nephrology, nephrology consult placed # Hypercalcemia -Unclear if this is secondary to significant dehydration or if this could be a primary process associated with his renal failure and dehydration - Will hydrate with normal saline - Will check PTH and vitamin D - will check Phos - If no or minimal improvement can consider calcitonin and/or bisphosphonates - Will also check serum and urine protein electrophoresis given high calcium with kidney failure, high total protein and globulin, anemia and recent L1 fracture/bone pain in addition to generalized weakness - Chest x-ray also ordered to evaluate for any possible lesions #Hyponatremia -Possibly secondary to dehydration but cannot say definitively, patient additionally on hydrochlorothiazide which will be held - Will order serum osmole's - Check urine studies - TSH - Lipid profile - Monitor I's and O's - Trend BMPs #Hypertension -Will be holding valsartan/hydrochlorothiazide due to the above #L1 compression fracture - Patient scheduled for kyphoplasty Thursday - Denies taking any NSAIDs or pain medications - Supportive care #Type 2 diabetes mellitus -Glucose checks and sliding scale insulin - Had somewhat low glucose of 59 on presentation - Will decrease long-acting insulin - Holding sitagliptin and metformin #GERD -Continue PPI #Hypothyroidism -Continue Synthroid #DVT ppx: SCDs Claire Mazariegos MD Charges/Coding Visit Charges Inpatient E&M: 32048 Init Hosp L3
--- OUTSIDE RECORDS SUMMARY | 2024-12-03 17:08 | XMS RPT_ITS | CCD ---
Author Organization [facility] Care Team Providers Care Senior Sourcing Manager Name Role Phone LUNA FLAHERTY DOUGLAS Unavailable [...] Dr. Luna Flaherty DO Primary Care Provider Dr. Isaias Flaherty DOlas R Attending Provider [phone] Reynold ERICKSON, Dr. Luna Judge Referring Provider [phone] Reynold ERICKSON, Dr. Luna Judge Primary Care Provider [phone] Reynold ERICKSON, Dr. Luna Judge Attending Provider [phone] Reynold ERICKSON, Dr. Luna Judge Referring Provider [phone] [phone] Reynold ERICKSON, Dr. Luna Judge Other Provider [phone] Que SHIELDS, Dr. Coronel Attending Provider [phone] Victor M Petersen Attending Provider [phone] Victor M Petersen Referring Provider [phone] Reynold ERICKSON, Dr. Luna Judge Primary Care Physician Reynold ERICKSON, Dr. Luna Judge Attending Physician [phone] Reynold ERICKSON, Dr. Luna Judge Nurse Practitioner [phone] Que SHIELDS, Dr. Coronel Attending Physician [phone] Victor M Petersen Attending Physician [phone] Brown, Luna R Primary Care Unavailable Brown, [...] (13 sources) meloxicam Drug Allergy 05-10-2021 unknown [facility] (13 sources) Pentazocine Drug Allergy 05-10-2021 unknown [facility] (3 sources) metaxalone Drug Allergy 11-23-2024 Nausea [facility] Comment on above: and dry mouth (1 source) meloxicam Drug Allergy 11-23-2024 [facility] Repository (1 source) metaxalone Drug Allergy 11-23-2024 [facility] Repository (1 source) Pentazocine Drug Allergy 11-23-2024 [facility] Repository Medications Current Medications Medication Drug Class(es) [...] End: 01-17-2022 handicap placard Discontinued 0 .Route .[facility] January 17, 2022 12:55pm January 17, 2022 12:58pm Apical variant hypertrophic cardiomyopathy Other hypertrophic cardiomyopathy 5 year RX, from 01/30/2022-01/31/20 Start: 01-17-2022 End: 01-17-2022 handicap placard Discontinue d 0 .Route .[facility] January 17, 2022 12:55pm January 17, 2022 12:58pm 5 year RX, from 01/30/2022-01/30/2027 Start: 01-17-2022 End: 01-17-2022 handicap placard Discontinue d 0 .Route .[facility] January 17, 2022 11:55am January 17, 2022 11:58am 5 year RX, from 01/30/2022-01/30/2027 Start: 01-17-2022 End: 01-17-2022 handicap placard Discontinue d 0 .Route .[facility] January 17, 2022 1:00am January 17, 2022 12:56pm 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 Start: 01-17-2022 End: 01-17-2022 handicap placard Discontinue d 0 .Route .[facility] January 17, 2022 1:00am January 17, 2022 12:56pm atypical variant hypertrophic cardiomyopathy Start: 01-17-2022 End: 01-17-2022 handicap placard Discontinue d 0 .Route .[facility] January 17, 2022 12:00am January 17, 2022 [...] Coronary atherosclerosis; Translations: [Atherosclerotic heart disease of [place] coronary artery without angina pectoris] 03-01-2013 Chronic [...] By: Kushal Gomez on 11-25-2024 Study report [facility] Imaging Services [address] [place] [address] [id number] Spine Lumbar (Routine) MR#: [id number] Acct: [id number] Name: LINA ORTA Rep #: [id number] : 1940 M 83 From: Dieter Gomez MD PCP: Dr. Luna Flaherty, DO Status: RE G CLI Study:Spine Lumbar (Routine) Date of Exam: 11/25/24 Exam# [id number] Ordering Dr: Mita Feliciano GRASSLAND CONSERVATIONIST-C PROCEDURE: MRI SPINE LUMBAR (ROUTINE) 11/25/2024 REASON [...] at L3-4. More mild elsewhere. Reading Location: [id number] CC: MANJU Feliciano; Dr. Luna Flaherty, DO ~ Cuff Cutter: Signed [facility] Spine Lumbar (Routine)on Spine Lumbar (Routine) [facility] Imaging Services [address] [place] [address] Spine Lumbar (Routine) MR#: [id number] Acct: [id number] Name: LINA ORTA Rep #: [id number] : 1940 M 83 From: Kushal Gomez MD PCP: Dr. Luna Flaherty, Status: REG CLI Study: Spine Lumbar (Routine) Date of Exam: 11/25/24 Exam# [id number] Ordering Dr: Mita Feliciano GRASSLAND CONSERVATIONIST-C PROCEDURE: MRI SPINE LUMBAR (ROUTINE) 11/25/2024 REASON [...] at L3-4. More mild elsewhere. Reading Location: [id number] CC: GRASSLAND CONSERVATIONISTYesica Feliciano; Dr. Luna Flaherty DO Cuff Cutter: Signed Normal [facility] Internal Medicine Office Vis iton 11-23-2024 Internal Medicine Office Visit [facility] Internal Medicine [facility] [place] [address] [place] [address] OFFICE VISIT Date of Service: 11/23/24 MR#: [id number] Acct: [id number] Name: LINA ORTA Rep #: [id number] : 1940 Provider: Dr. Luna wood DO Age/Sex: 83/M Location: [facility] Status: Signed Intake Vital Signs 09/29/24 14:17 [...] Reasons: BACK PAIN Chief Complaint: Back Pain Cook Vacuum Kettle Required: No Is patient in pain?: Yes [...] into other parts of body. [facility] Medical History Lumbar strain Low back pain [...] pain he went on a cruise to [place] but was in a wheelchair all the [...] Light sens (more content not included)... Normal [facility] Lumbar Spine 2 or 3 Viewson 11-15-2024 Lumbar Spine 2 or 3 Views [facility] Imaging Services [address] [place], [place] [id number] Lumbar Spine 2 or 3 Views MR#: [id number] Acct: [id number] Name: LINA ORTA Rep #: [id number] : 1940 M 83 From: Camron logan MD PCP: Dr. Luna Flaherty DO Status: REG CLI Study: Lumbar Spine 2 or 3 Views Date of Exam: Exam# [id number] Ordering Dr: Victor M Gates PROCEDURE: LUMBAR [...] CHANGES OF THE LUMBAR SPINE. Reading Location: [facility] CC: Dr. Luna Flaherty DO; MARIAA Garcia Cuff Cutter: Signed Normal [facility] Urgent Care Visit Reporton 0 11-15-2024 Urgent Care Visit Report [facility] [address], [address] [place], [place] [address] OFFICE VISIT Date of Service: 11/15/24 MR#: [id number] Acct: [id number] Name: LINA ORTA Rep #: [id number] : 1940 Provider: MARIAA Garcia Age/Sex: 83/M Location: [facility] Status: Signed Intake Vital Signs 09/29/24 14:17 [...] acupuncture. Saw chiropractor, no relief. 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 Patient notes since [...] normal G (more content not included)... Normal [facility] Cardiovascular stress test r eportOrdered By: Homer Grey on 10-19-2024 Study report [facility] Cardiovascular Services [address] [place] [address] MR#: [id number] Acct: [id number] Name: LINA ORTA Rep #: [id number] : 1940 83 From: Homer Grey MD [...] ~ Date Dictated: 10/19/241825 Date Transcribed: 10/19/241825 Cuff Cutter: CO Signed [facility] Work Phone: Stress Reporton 10-19-2024 Stress Report [facility] Cardi[facility] Services [address] [place] [address] MR#: [id number] Acct: [id number] Name: LINA ORTA Rep #: [id number] : 1940 83 From: Homer Grey MD Primary Care: Dr. Luna Flaherty, Status: REG [facility] Referring Dr: Luna Flaherty DO Sex: M [...] DO Date Dictated: 10/19/241825 Date Transcribed: 10/19/241825 Cuff Cutter: CO Signed Normal [facility] Abdomen Limitedon 10-04-2024 Abdomen Limited [facility] Imaging Services [address] [place] [address] Abdomen Limited MR#: [id number] Acct: [id number] Name: LINA ORTA Rep #: [id number] : 1940 M 83 From: Camron logan MD PCP: Dr. Luna Flaherty, DO Status: REG CLI Study: Abdomen Limited Date of Exam: 10/04/24 Exam# [id number] Ordering Dr: Luna Flaherty DO PROCEDURE: ABDOMEN [...] Fatty infiltration of the liver. Reading Location: [facility] CC: Dr. Luna Flaherty DO Cuff Cutter: Signed Normal [facility] Internal Medicine Office Vis ito 09-29-2024 Internal Medicine Office Visit [facility] [place] [address] [place] [address] OFFICE VISIT Date of Service: 09/29/24 MR#: [id number] Acct: [id number] Name: LINA ORTA Rep #: [id number] : 1940 Provider: Dr. Luna wood DO Age/Sex: 83/M Location: [facility] Status: Signed Intake Vital Signs 06/21/24 09:37 [...] m fu Chief Complaint: 3 M FU Cook Vacuum Kettle Required: No Accompanied by: Self Is patient [...] Nurse's Note: 3 M FU [facility] Medical History Shingles (herpes zoster) polyneuropathy Acute [...] the same feeling so you hired a [employer] service to do mowing for him. He [...] wounds Ne (more content not included)... Normal [facility] Laboratory - Hematology and Cell countsOrdered By: Luna Flaherty on 09-29-2024 HbA1c (Bld) [Mass fraction] 7.2 % High 4.2-6.3 [facility] Internal Medicine Office Vis iton 06-21-2024 Internal Medicine Office Visit [facility] [address] [place] [address] [place] [address] OFFICE VISIT Date of Service: 06/21/24 MR#: [id number] Acct: [id number] Name: LINA ORTA Rep #: [id number] : 1940 Provider: Dr. Luna Ross own, DO Age/Sex: 83/M Location: [facility] Status: Signed Intake Vital Signs 03/22/24 09:36 [...] M FU Chief Complaint: 3 M FU Cook Vacuum Kettle Required: No Accompanied by: Self Is patient [...] heat intolerance, increased thirst/drinking, increased hunger or apko (more content not included)... Normal [facility] Laboratory - Hematology and Cell countsOrdered By: Luna Flaherty on 06-21-2024 HbA1c (Bld) [Mass fraction] 6.9 % High 4.2-6.3 [facility] Comprehensive Metabolic Prof ilon 03-22-2024 Albumin [Mass/Vol] 3.7 g/dL Normal 3.2-5.0 [facility] Comment on above: Performed By: #### L 500.7330, L500.4100 #### [facility] Laboratory [address] [place], [address] Albumin/Globulin [Mass ratio] 0.7 {ratio} Low 0.9-2.4 [facility] Comment on above: Performed By: #### L 500.4050, L500.4100 #### [facility] Laboratory [address] [place], [address] ALK P 68 U/L Normal 45-117 [facility] Comment on above: Performed By: #### L 500.4050, L500.4100 #### [facility] [address] [place], [address] ALT [Catalytic activity/Vol] 36 U/L Normal 16-61 [facility] Comment on above: Performed By: #### L 500.4050, L500.4100 #### [facility] Laboratory [address] [place], [address] AST [Catalytic activity/Vol] 23 U/L Normal 15-37 [facility] Comment on above: Performed By: #### L 500.4050, L500.4100 #### [facility] [address] [place], [address] Bilirubin [Mass/Vol] 0.60 mg/dL Normal 0.20-1.00 [facility] Comment on above: Result Comment: For patients on eltrombopag therapy, use of Dimension [place] TBIL is not recommended. Performed By: #### L 500.4050, L500.4100 #### [facility] [address] [place], [address] BUN/CRE 13.2 RATIO Normal 10-20 [facility] Comment on above: Performed By: #### L 500.4050, L500.4100 #### [facility] [address] [place], [address] CA,Total 10.2 mg/dL High 8.5-10.1 [facility] Comment on above: Performed By: #### L 500.4050, L500.4100 #### [facility] [address] [place], [address] Chloride [Moles/Vol] 103 mmol/L Normal 98-107 [facility] Comment on above: Performed By: #### L 500.4050, L500.4100 #### [facility] [address] [place], [address] CO2 [Moles/Vol] 25.0 mmol/L Normal 21.0-32.0 [facility] Comment on above: Performed By: #### L 500.4050, L500.4100 #### [facility] [address] [place], [address] Creatinine [Mass/Vol] 1.52 mg/dL High 0.70-1.30 [facility] Comment on above: Result Comment: The validity of the calculated GFR GFRAA in patients over 70 years has not been determined. Clinical correlation is essential. Performed By: #### L 500.4050, L500.4100 #### [facility] [address] [place], [address] EST GFR - AA 57 mL/min Low >60 [facility] Comment on above: Result Comment: Afri can Japanese GFR Calc Performed By: #### L 500.4050, L500.4100 #### [facility] Laboratory [address] [place], [address] GAP 9 Normal 5-15 [facility] Comment on above: Performed By: #### L 500.4050, L500.4100 #### [facility] Laboratory [address] [place], [address] GFR/1.73 sq M.predicted among non-blacks MDRD (S/P/Bld) [Vol rate/Area] 47 mL/min/{1.73_m2} Low >60 [facility] Comment on above: Result Comment: Non- GFR Calc Performed By: #### L 500.4050, L500.4100 #### [facility] Laboratory [address] [place], [address] Globulin (S) [Mass/Vol] 5.4 g/dL High 2.2-4.2 [facility] Comment on above: Performed By: #### L 500.4050, L500.4100 #### [facility] [address] [place], [address] Glucose [Mass/Vol] 106 mg/dL Normal 74-106 [facility] Comment on above: Result Comment: Fast ing Glucose result from 100 to 125 mg/dL suggests IMPAIRED HOMEOSTASIS per A.D.A. criteria. Performed By: #### L 500.4050, L500.4100 #### [facility] [address] [place], [address] Potassium [Moles/Vol] 4.7 mmol/L Normal 3.5-5.1 [facility] Comment on above: Performed By: #### L 500.4050, L500.4100 #### [facility] [address] [place], [address] Sodium [Moles/Vol] 137 mmol/L Normal 136-145 [facility] Comment on above: Performed By: #### L 500.4050, L500.4100 #### [facility] [address] [place], [address] T PROT 9.1 g/dL High 6.4-8.2 [facility] Comment on above: Performed By: #### L 500.4050, L500.4100 #### [facility] [address] [place], [address] Urea nitrogen [Mass/Vol] 20 mg/dL High 7-18 [facility] Comment on above: Performed By: #### L 500.4050, L500.4100 #### [facility] Laboratory [address] [place], [address] Internal Medicine Office Vis iton 03-22-2024 Internal Medicine Office Visit [facility] [address] [place] [address] [place] [address] OFFICE VISIT Date of Service: 03/22/24 MR#: [id number] Acct: [id number] Name: LINA ORTA Rep #: [id number] : 1940 Provider: Dr. Luna wood, DO Age/Sex: 83/M Location: [facility] Status: Signed Intake Vital Signs 11/12/23 09:26 [...] M FU Chief Complaint: 3 M FU Cook Vacuum Kettle Required: No Accompanied by: Self Is patient [...] He is going to be heading to [place] tomorrow for a period of time and [...] Aller/Imm Allergy/Immuno (more content not included)... Normal [facility] Lipid Profileon 03-22-2024 Cholesterol [Mass/Vol] 93 mg/dL Normal 200 [facility] Comment on above: Result Comment: <200 mg/dL Desirable 200-240 mg/dL Borderline >240 mg/dL High Risk Performed By: #### L 500.4050, L500.4100 #### [facility] Laboratory [address] [place], [place], [address] Cholesterol in HDL [Mass/Vol] 34 mg/dL Low [facility] Comment on above: Result Comment: The drugs N-Acetylcysteine and Metamizole may falsely depress this assay. Reference Range HDL <40 mg/dL Low HDL Cholesterol HDL >or= 60 mg/dL High HDL Cholesterol Performed By: #### L 500.4050, L500.4100 #### [facility] Laboratory [address] [place], [address] Cholesterol in LDL [Mass/Vol] 27 mg/dL Normal 0-130 [facility] Comment on above: Performed By: #### L 500.4050, L500.4100 #### [facility] [address] [place], [address] Cholesterol in VLDL [Mass/Vol] 32 mg/dL Normal 5-40 [facility] Comment on above: Performed By: #### L 500.4050, L500.4100 #### [facility] Laboratory [address] [place], [address] Triglyceride [Mass/Vol] 161 mg/dL Normal [facility] Comment on above: Result Comment: The drugs N-Acetylcysteine and Metamizole may falsely depress this assay. Serum Triglycerides Reference Interval Normal <150 mg/dL Borderline high 150 - 199 mg/dL High 200 - 499 mg/dL Very High > or = 500 mg/dL Performed By: #### L 500.4050, L500.4100 #### [facility] [address] [place], [address] Microalb:Creat Ratio,Random URon 03-22-2024 Creatinine [Mass/Vol] 124.00 mg/dL Normal NO RANGE EST . [facility] Comment on above: Performed By: #### L 502.0250 #### [facility] Laboratory [address] [place], [address] MALB:CRE 370.2 mg/g CRE High <30 mg/g CRE [facility] Comment on above: Performed By: #### L 502.0250 #### [facility] [address] [place], [address] MICROALBUMIN,UR 459.0 mg/L Normal NO RANGE EST. [facility] Comment on above: Performed By: #### L 502.0250 #### [facility] [address] [place], [address] Basophil percentageOrdered B y: Luna Flaherty on 12-10-2022 Bilirubin [Mass/Vol] 0.70 mg/dL 0.20-1.00 [facility] Comment on above: For patients on eltr ombopag therapy, use of Dimension [place] TBIL is not recommended. Chloride [Moles/Vol] 100 mmol/L 98-107 [facility] Cholesterol [Mass/Vol] 107 mg/dL <200 [facility] Comment on above: <200 mg/dL Desirable 200-240 mg/dL Borderline >240 mg/dL High Risk Glucose [Mass/Vol] 168 mg/dL 74-106 [facility] Comment on above: Fasting Glucose resu lt greater than or equal to 126 mg/dL suggests DIABETES MELLITUS per A.D.A. criteria. Potassium [Moles/Vol] 4.2 mmol/L 3.5-5.1 [facility] Protein [Mass/Vol] 8.3 g/dL 6.4-8.2 [facility] Sodium [Moles/Vol] 133 mmol/L 136-145 [facility] Triglyceride [Mass/Vol] 124 mg/dL <199 [facility] Comment on above: The drugs N-Acetylcy steine and Metamizole may falsely depress this assay.Serum Triglycerides Reference Interval Normal <150 mg/dL Borderline high 150 - 199 mg/dL High 200 - 499 mg/dL Very High > or = 500 mg/dL Laboratory - Chemistry and C hemistry - challengeOrdered By: Luna Flaherty on 12-10-2022 ALP [Catalytic activity/Vol] 68 U/L 45-117 [facility] ALT [Catalytic activity/Vol] 46 U/L 16-61 [facility] CO2 [Moles/Vol] 25.0 mmol/L 21.0-32.0 [facility] Globulin (S) [Mass/Vol] 4.5 g/dL 2.2-4.2 [facility] Urea nitrogen/Creatinine [Mass ratio] 13.6 mg/mg 10-20 [facility] No Panel InformationOrdered By: Luna Flaherty on 12-10-2022 Estimated GFR (MDRD) Amer 62 mL/min >60 [facility] Comment on above: GFR Calc Estimated GFR (MDRD) Non-Af Amer 52 mL/min >60 [facility] Comment on above: Non- GFR Calc Serum or plasma albumin darell urement (mass/volume)Ordered By: Luna Flaherty on 12-10-2022 Albumin [Mass/Vol] 3.8 g/dL 3.2-5.0 [facility] Serum or plasma albumin/glob ulin mass ratioOrdered By: Luna Flaherty on 12-10-2022 Albumin/Globulin [Mass ratio] 0.8 {ratio} 0.9-2.4 [facility] Serum or plasma calcium darell urement (mass/volume)Ordered By: Luna Flaherty on 12-10-2022 Calcium [Mass/Vol] 9.8 mg/dL 8.5-10.1 [facility] Serum or plasma cholesterol in HDL measurement (mass/volume)Ordered By: Luna Flaherty on 12-10-2022 Cholesterol in HDL [Mass/Vol] 32 mg/dL >40 [facility] Comment on above: The drugs N-Acetylcy steine and Metamizole may falsely depress this assay. Reference Range HDL <40 mg/dL Low HDL Cholesterol HDL >or= 60 mg/dL High HDL Cholesterol Serum or plasma cholesterol in VLDL measurement (mass/volume)Ordered By: Luna Flaherty on 12-10-2022 Cholesterol in VLDL [Mass/Vol] 25 mg/dL 5-40 [facility] Serum or plasma creatinine m easurement (mass/volume)Ordered By: Luna Flaherty on 12-10-2022 Creatinine [Mass/Vol] 1.40 mg/dL 0.70-1.30 [facility] Comment on above: The validity of the calculated GFR & GFRAA in patients over 70 years has not been determined. Clinical correlation is essential. Serum or plasma low density lipoprotein (LDL) cholesterol measurement (mass/volume)Ordered By: Luna Flaherty on 12-10-2022 Cholesterol in LDL [Mass/Vol] 50 mg/dL 0-130 [facility] Serum or plasma urea nitroge n measurement (mass/volume)Ordered By: Luna Flaherty on 12-10-2022 Urea nitrogen [Mass/Vol] 19 mg/dL 7-18 [facility] Thin prep Papanicolaou smear with manual screeningOrdered By: Luna Flaherty on 12-10-2022 Thin prep Papanicolaou smear with manual screening 26 U/L 15-37 [facility] Thin prep Papanicolaou smear with manual screening 8 5-15 [facility] Whole blood hemoglobin A1c/t otal hemoglobin ratio (mass fraction)Ordered By: Luna Flaherty on 12-10-2022 HbA1c (Bld) [Mass fraction] 10.3 % 3.8-5.6 [facility] Comment on above: Normal < 5.7 % Predi abetic 5.7 - 6.4 % Diabetic >or= 6.5 % Please note range changes. Laboratory - Hematology and Cell countson 11-11-2022 HbA1c (Bld) [Mass fraction] 12.1 % 4.2-6.3 [facility] Laboratory - Chemistry and C hemistry - challengeOrdered By: Dr. Flaherty on 07-01-2022 Free T4 [Mass/Vol] 1.48 ng/dL 0.76-1.46 [facility] Laboratory - Hematology and Cell countson 07-01-2022 HbA1c (Bld) [Mass fraction] 11 % 4.2-6.3 [facility] No Panel InformationOrdered By: Dr. Flaherty on 07-01-2022 Insulin Level 8.5 mU/L 2.6-37.6 [facility] Thyroid Stimulating Hormone (TSH) 0.76 uIU/mL 0.358-3.74 [facility] No Panel InformationOrdered By: Dr. Flaherty on 04-03-2022 Thyroid Stimulating Hormone (TSH) 6.52 uIU/mL 0.358-3.74 [facility] Whole blood hemoglobin A1c/t otal hemoglobin ratio (mass fraction)Ordered By: Dr. Flaherty on 04-03-2022 HbA1c (Bld) [Mass fraction] 10.7 % 3.8-5.6 [facility] Comment on above: Normal < 5.7 % Predi abetic 5.7 - 6.4 % Diabetic >or= 6.5 % Please note range changes. Basophil percentageOrdered B y: Dr. Flaherty on 01-08-2022 Bilirubin [Mass/Vol] 0.70 mg/dL 0.20-1.00 [facility] Comment on above: For patients on eltr ombopag therapy, use of Dimension [place] TBIL is not recommended. Chloride [Moles/Vol] 100 mmol/L 98-107 [facility] Cholesterol [Mass/Vol] 122 mg/dL <200 [facility] Comment on above: <200 mg/dL Desirable 200-240 mg/dL Borderline >240 mg/dL High Risk Glucose [Mass/Vol] 208 mg/dL 74-106 [facility] Comment on above: Glucose result great er than or equal to 200 mg/dLsuggests DIABETES MELLITUS per A.D.A. criteria. Potassium [Moles/Vol] 4.1 mmol/L 3.5-5.1 [facility] Protein [Mass/Vol] 8.0 g/dL 6.4-8.2 [facility] Sodium [Moles/Vol] 138 mmol/L 136-145 [facility] Triglyceride [Mass/Vol] 228 mg/dL <199 [facility] Comment on above: The drugs N-Acetylcy steine and Metamizole may falsely depress this assay.Serum Triglycerides Reference Interval Normal <150 mg/dL Borderline high 150 - 199 mg/dL High 200 - 499 mg/dL Very High > or = 500 mg/dL Laboratory - Chemistry and C hemistry - challengeOrdered By: Dr. Flaherty on 01-08-2022 ALP [Catalytic activity/Vol] 71 U/L 45-117 [facility] ALT [Catalytic activity/Vol] 41 U/L 16-61 [facility] CO2 [Moles/Vol] 28.0 mmol/L 21.0-32.0 [facility] Globulin (S) [Mass/Vol] 4.0 g/dL 2.2-4.2 [facility] Urea nitrogen/Creatinine [Mass ratio] 12.7 mg/mg 10-20 [facility] Laboratory - Hematology and Cell countson 01-08-2022 HbA1c (Bld) [Mass fraction] 8.1 % 4.2-6.3 [facility] No Panel InformationOrdered By: Dr. Flahetry on 01-08-2022 Estimated GFR (MDRD) Amer 66 mL/min >60 [facility] Comment on above: GFR Calc Estimated GFR (MDRD) Non-Af Amer 54 mL/min >60 [facility] Comment on above: Non- GFR Calc Urine Microalbumin/Creatinine Ratio 193.6 mg/g CRE <30 [facility] Serum or plasma albumin darell urement (mass/volume)Ordered By: Dr. Flaherty on 01-08-2022 Albumin [Mass/Vol] 4.0 g/dL 3.2-5.0 [facility] Serum or plasma albumin/glob ulin mass ratioOrdered By: Dr. Flaherty on 01-08-2022 Albumin/Globulin [Mass ratio] 1.0 {ratio} 0.9-2.4 [facility] Serum or plasma calcium darell urement (mass/volume)Ordered By: Dr. Flaherty on 01-08-2022 Calcium [Mass/Vol] 9.3 mg/dL 8.5-10.1 [facility] Serum or plasma cholesterol in HDL measurement (mass/volume)Ordered By: Dr. Flaherty on 01-08-2022 Cholesterol in HDL [Mass/Vol] 34 mg/dL >40 [facility] Comment on above: The drugs N-Acetylcy steine and Metamizole may falsely depress this assay. Reference Range HDL <40 mg/dL Low HDL Cholesterol HDL >or= 60 mg/dL High HDL Cholesterol Serum or plasma cholesterol in VLDL measurement (mass/volume)Ordered By: Dr. Flaherty on 01-08-2022 Cholesterol in VLDL [Mass/Vol] 46 mg/dL 5-40 [facility] Serum or plasma creatinine m easurement (mass/volume)Ordered By: Dr. Flaherty on 01-08-2022 Creatinine [Mass/Vol] 1.34 mg/dL 0.70-1.30 [facility] Comment on above: The validity of the calculated GFR & GFRAA in patients over 70 years has not been determined. Clinical correlation is essential. Serum or plasma low density lipoprotein (LDL) cholesterol measurement (mass/volume)Ordered By: Dr. Flaherty on 01-08-2022 Cholesterol in LDL [Mass/Vol] 42 mg/dL 0-130 [facility] Serum or plasma urea nitroge n measurement (mass/volume)Ordered By: Dr. Flaherty on 01-08-2022 Urea nitrogen [Mass/Vol] 17 mg/dL 7-18 [facility] Thin prep Papanicolaou smear with manual screeningOrdered By: Dr. Flaherty on 01-08-2022 Thin prep Papanicolaou smear with manual screening 24 U/L 15-37 [facility] Thin prep Papanicolaou smear with manual screening 10 5-15 [facility] Thin prep Papanicolaou smear with manual screening 242.0 mg/L NO RANGE EST. [facility] Urine creatinine measurement (mass/volume)Ordered By: Dr. Flaherty on 01-08-2022 Creatinine (U) [Mass/Vol] 125.00 mg/dL NO RANGE EST. [facility] Laboratory - Hematology and Cell countson 10-30-2021 HbA1c (Bld) [Mass fraction] 8.5 % 4.2-6.3 [facility] Work Phone: Laboratory - Microbiology an d Antimicrobial susceptibilityon 09-12-2021 SARS-CoV-2 (COVID-19) RNA HEAVEN+probe Ql (Unsp spec) Not detected Not Detect [facility] Work Phone: Comment on above: Normal Reference [...] HbA1c (Bld) [Mass fraction] 8.0 % 4.2-6.3 [facility] Work Phone: Laboratory - Microbiology an d Antimicrobial susceptibilityon 05-10-2021 SARS-CoV-2 (COVID-19) RNA HEAVEN+probe Ql (Unsp spec) Not detected Not Detect [facility] Work Phone: Comment on above: Normal Reference [...] 03-20-2021 Free T4 [Mass/Vol] 1.15 ng/dL 0.76-1.46 [facility] Work Phone: Laboratory - Hematology and Cell countson 03-20-2021 HbA1c (Bld) [Mass fraction] 8.4 % [facility] Work Phone: No Panel Informationon 03-20 Thyroid Stimulating Hormone (TSH) 2.98 uIU/mL 0.358-3.74 [facility] Work Phone: A1Con 04-15-2017 Hemoglobin A1c/Hemoglobin.total mass fraction (Bld) 7.5 % High 4.8-5.9 [facility] ([place]) Comment on above: Performed By: #### P SA, A1C ####[id number] [place], [place] [address] PSAon 04-15-2017 Prostate Specific Antigen 3.03 ng/mL Normal 0.00-4.00 [facility] ([place]) Comment on above: Performed By: #### P SA, A1C ####[id number] [place], [place] [address] Vital Signs Date Time Vital Sign Value Performing Clinician [place] ureña 11-23-2024 10:48-0400 Body height 182.[address] Luna Flaherty DO Work Phone: [facility] 11-23-2024 10:48-0400 Body mass index (BMI) [Ratio] 23 kg/m2 Dr. Luna Flaherty DO Work Phone: [facility] 11-23-2024 10:48-0400 Body temperature 97.9 [degF] Dr. Luna Flaherty DO Work Phone: [facility] 11-23-2024 10:48-0400 Body weight 77.[address] Luna Flaherty DO Work Phone: [facility] 11-23-2024 10:48-0400 Diastolic blood pressure 84 mm[Hg] Dr. Luna Flaherty DO Work Phone: [facility] 11-23-2024 10:48-0400 Heart rate 90 /min Dr. Luna Flaherty DO Work Phone: [facility] 11-23-2024 10:48-0400 Respiratory rate 16 /min Dr. Luna Flaherty DO Work Phone: [facility] 11-23-2024 10:48-0400 SaO2% (BldA) [Mass fraction] 98 % Dr. Luna Flaherty DO Work Phone: [facility] 11-23-2024 10:48-0400 Systolic blood pressure 152 mm[Hg] Dr. Luna Flaherty DO Work Phone: [facility] 11-15-2024 12:10-0400 Body height 182.[address] Luna Flaherty DO Work Phone: [facility] 11-15-2024 12:10-0400 Body mass index (BMI) [Ratio] 23.7 kg/m2 Dr. Luna Flaherty DO Work Phone: [facility] 11-15-2024 12:10-0400 Body temperature 97.6 [degF] Dr. Luna Flaherty DO Work Phone: [facility] 11-15-2024 12:10-0400 Body weight 79.[address] Luna Flaherty DO Work Phone: [facility] 11-15-2024 12:10-0400 Diastolic blood pressure 68 mm[Hg] Dr. Luna Flaherty DO Work Phone: [facility] 11-15-2024 12:10-0400 Heart rate 100 /min Dr. Luna Flaherty DO Work Phone: [facility] 11-15-2024 12:10-0400 SaO2% (BldA) [Mass fraction] 97 % Dr. Luna Flaherty DO Work Phone: [facility] 11-15-2024 12:10-0400 Systolic blood pressure 148 mm[Hg] Dr. Luna Flaherty DO Work Phone: [facility] 09-29-2024 14:17-0400 Body height 182.[address] Luna Flaherty DO Work Phone: [facility] 09-29-2024 14:17-0400 Body mass index (BMI) [Ratio] 23.7 kg/m2 Dr. Luna Flaherty DO Work Phone: [facility] 09-29-2024 14:17-0400 Body temperature 97.5 [degF] Dr. Luna Flaherty DO Work Phone: [facility] 09-29-2024 14:17-0400 Body weight 79.[address] Luna Flaherty DO Work Phone: [facility] 09-29-2024 14:17-0400 Diastolic blood pressure 60 mm[Hg] Dr. Luna Flaherty DO Work Phone: [facility] 09-29-2024 14:17-0400 Heart rate 66 /min Dr. Luna Flaherty DO Work Phone: [facility] 09-29-2024 14:17-0400 Respiratory rate 16 /min Dr. Luna Flaherty DO Work Phone: [facility] 09-29-2024 14:17-0400 SaO2% (BldA) [Mass fraction] 95 % Dr. Luna Flaherty DO Work Phone: [facility] 09-29-2024 14:17-0400 Systolic blood pressure 120 mm[Hg] Dr. Luna Flaherty DO Work Phone: [facility] 06-21-2024 09:37-0400 Body mass index (BMI) [Ratio] 24.1 kg/m2 Dr. Luna Flaherty DO Work Phone: [facility] 06-21-2024 09:37-0400 Body temperature 96.7 [degF] Dr. Luna Flaherty DO Work Phone: [facility] 06-21-2024 09:37-0400 Body weight 80.[address] Luna Flaherty DO Work Phone: [facility] 06-21-2024 09:37-0400 Diastolic blood pressure 68 mm[Hg] Dr. Luna Flaherty DO Work Phone: [facility] 06-21-2024 09:37-0400 Heart rate 76 /min Dr. Luna Flaherty DO Work Phone: [facility] 06-21-2024 09:37-0400 Respiratory rate 16 /min Dr. Luna Flaherty DO Work Phone: [facility] 06-21-2024 09:37-0400 SaO2% (BldA) [Mass fraction] 95 % Dr. Luna Flaherty DO Work Phone: [facility] 06-21-2024 09:37-0400 Systolic blood pressure 134 mm[Hg] Dr. Luna Flaherty DO Work Phone: [facility] 12-10-2022 10:05-0400 Body height 182.[address] Luna Flaherty Work Phone: [facility] 12-10-2022 10:05-0400 Body mass index (BMI) [Ratio] 22.9 kg/m2 Dr. Luna Flaherty Work Phone: [facility] 12-10-2022 10:05-0400 Body temperature 98.5 [degF] Dr. Luna Flaherty Work Phone: [facility] 12-10-2022 10:05-0400 Body weight 76.[address] Luna Flaherty Work Phone: [facility] 12-10-2022 10:05-0400 Diastolic blood pressure 80 mm[Hg] Dr. Luna Flaherty Work Phone: [facility] 12-10-2022 10:05-0400 Heart rate 74 /min Dr. Luna Flaherty Work Phone: [facility] 12-10-2022 10:05-0400 Respiratory rate 16 /min Dr. Luna Flaherty Work Phone: [facility] 12-10-2022 10:05-0400 SaO2% (BldA) [Mass fraction] 96 % Dr. Luna Flaherty Work Phone: [facility] 12-10-2022 10:05-0400 Systolic blood pressure 154 mm[Hg] Dr. Luna Flaherty Work Phone: [facility] 11-11-2022 09:38-0400 Body mass index (BMI) [Ratio] 23.1 kg/m2 Dr. Luna Flaherty Work Phone: [facility] 11-11-2022 09:38-0400 Body temperature 95.6 [degF] Dr. Luna Flaherty Work Phone: [facility] 11-11-2022 09:38-0400 Body weight 77.[address] Luna Flaherty Work Phone: [facility] 11-11-2022 09:38-0400 Diastolic blood pressure 76 mm[Hg] Dr. Luna Flaherty Work Phone: [facility] 11-11-2022 09:38-0400 Heart rate 70 /min Dr. Luna Flaherty Work Phone: [facility] 11-11-2022 09:38-0400 Respiratory rate 18 /min Dr. Luna Flaherty Work Phone: [facility] 11-11-2022 09:38-0400 SaO2% (BldA) [Mass fraction] 99 % Dr. Luna Flaherty Work Phone: [facility] 11-11-2022 09:38-0400 Systolic blood pressure 132 mm[Hg] Dr. Luna Flaherty Work Phone: [facility] 07-01-2022 08:40-0400 Body height 182.[address] Luna Flaherty Work Phone: [facility] 07-01-2022 08:40-0400 Body mass index (BMI) [Ratio] 23.5 kg/m2 Dr. Luna Flaherty Work Phone: [facility] 07-01-2022 08:40-0400 Body temperature 96 [degF] Dr. Luna Flaherty Work Phone: [facility] 07-01-2022 08:40-0400 Body weight 78.[address] Luna Flaherty Work Phone: [facility] 07-01-2022 08:40-0400 Diastolic blood pressure 80 mm[Hg] Dr. Luna Flaherty Work Phone: [facility] 07-01-2022 08:40-0400 Heart rate 63 /min Dr. Luna Flaherty Work Phone: [facility] 07-01-2022 08:40-0400 Respiratory rate 18 /min Dr. Luna Flaherty Work Phone: [facility] 07-01-2022 08:40-0400 SaO2% (BldA) [Mass fraction] 99 % Dr. Luna Flaherty Work Phone: [facility] 07-01-2022 08:40-0400 Systolic blood pressure 138 mm[Hg] Dr. Luna Flaherty Work Phone: [facility] 04-03-2022 08:33-0500 Body height 182.[address] Luna Flaherty Work Phone: [facility] 04-03-2022 08:33-0500 Body mass index (BMI) [Ratio] 23.6 kg/m2 Dr. Luna Flaherty Work Phone: [facility] 04-03-2022 08:33-0500 Body temperature 96.3 [degF] Dr. Luna Flaherty Work Phone: [facility] 04-03-2022 08:33-0500 Body weight 78.[address] Luna Flaherty Work Phone: [facility] 04-03-2022 08:33-0500 Diastolic blood pressure 74 mm[Hg] Dr. Luna Flaherty Work Phone: [facility] 04-03-2022 08:33-0500 Heart rate 70 /min Dr. Luna Flaherty Work Phone: [facility] 04-03-2022 08:33-0500 Respiratory rate 16 /min Dr. Luna Flaherty Work Phone: [facility] 04-03-2022 08:33-0500 SaO2% (BldA) [Mass fraction] 98 % Dr. Luna Flaherty Work Phone: [facility] 04-03-2022 08:33-0500 Systolic blood pressure 146 mm[Hg] Dr. Luna Flaherty Work Phone: [facility] 10-30-2021 10:15-0400 Body height 180.[address] Luna Flaherty Work Phone: [facility] Work Phone: 10-30-2021 10:15-0400 Body mass index (BMI) [Ratio] 24.7 kg/m2 Dr. Luna Flaherty Work Phone: [facility] Work Phone: 10-30-2021 10:15-0400 Body temperature 96.3 [degF] Dr. Luna Flaherty Work Phone: [facility] Work Phone: 10-30-2021 10:15-0400 Body weight 80.[address] Luna Flaherty Work Phone: [facility] Work Phone: 10-30-2021 10:15-0400 Diastolic blood pressure 78 mm[Hg] Dr. Luna Flaherty Work Phone: [facility] Work Phone: 10-30-2021 10:15-0400 Heart rate 65 /min Dr. Luna Flaherty Work Phone: [facility] Work Phone: 10-30-2021 10:15-0400 Respiratory rate 18 /min Dr. Luna Flaherty Work Phone: [facility] Work Phone: 10-30-2021 10:15-0400 SaO2% (BldA) [Mass fraction] 99 % Dr. Luna Flaherty Work Phone: [facility] Work Phone: 10-30-2021 10:15-0400 Systolic blood pressure 144 mm[Hg] Dr. Luna Flaherty Work Phone: [facility] Work Phone: 09-12-2021 09:31-0400 Diastolic blood pressure 70 mm[Hg] Dr. Luna Flaherty Work Phone: [facility] Work Phone: 09-12-2021 09:31-0400 Systolic blood pressure 136 mm[Hg] Dr. Luna Flaherty Work Phone: [facility] Work Phone: 09-12-2021 09:13-0400 Body height 180.[address] Luna Flaherty Work Phone: [facility] Work Phone: 09-12-2021 09:13-0400 Body mass index (BMI) [Ratio] 24.5 kg/m2 Dr. Luna Flaherty Work Phone: [facility] Work Phone: 09-12-2021 09:13-0400 Body temperature 98.1 [degF] Dr. Luna Flaherty Work Phone: [facility] Work Phone: 09-12-2021 09:13-0400 Body weight 79.[address] Luna Flaherty Work Phone: [facility] Work Phone: 09-12-2021 09:13-0400 Heart rate 69 /min Dr. Luna Flaherty Work Phone: [facility] Work Phone: 09-12-2021 09:13-0400 Respiratory rate 16 /min Dr. Luna Flaherty Work Phone: [facility] Work Phone: 09-12-2021 09:13-0400 SaO2% (BldA) [Mass fraction] 98 % Dr. Luna Flaherty Work Phone: [facility] Work Phone: 08-07-2021 09:38-0400 Body mass index (BMI) [Ratio] 24.3 kg/m2 Dr. Luna Flaherty Work Phone: [facility] Work Phone: 08-07-2021 09:38-0400 Body temperature 96.7 [degF] Dr. Luna Flaherty Work Phone: [facility] Work Phone: 08-07-2021 09:38-0400 Body weight 78.[address] Luna Flaherty Work Phone: [facility] Work Phone: 08-07-2021 09:38-0400 Diastolic blood pressure 72 mm[Hg] Dr. Luna lFaherty Work Phone: [facility] Work Phone: 08-07-2021 09:38-0400 Heart rate 74 /min Dr. Luna Flaherty Work Phone: [facility] Work Phone: 08-07-2021 09:38-0400 Respiratory rate 14 /min Dr. Luna Flaherty Work Phone: [facility] Work Phone: 08-07-2021 09:38-0400 SaO2% (BldA) [Mass fraction] 99 % Dr. Luna Flaherty Work Phone: [facility] Work Phone: 08-07-2021 09:38-0400 Systolic blood pressure 140 mm[Hg] Dr. Luna Flaherty Work Phone: [facility] Work Phone: 06-19-2021 08:36-0400 Body mass index (BMI) [Ratio] 24.3 kg/m2 Dr. Luna Flaherty Work Phone: [facility] Work Phone: 06-19-2021 08:36-0400 Body temperature 95.1 [degF] Dr. Luna Flaherty Work Phone: [facility] Work Phone: 06-19-2021 08:36-0400 Body weight 79.[address] Luna Flaherty Work Phone: [facility] Work Phone: 06-19-2021 08:36-0400 Diastolic blood pressure 60 mm[Hg] Dr. Luna Flaherty Work Phone: [facility] Work Phone: 06-19-2021 08:36-0400 Heart rate 61 /min Dr. Luna Flaherty Work Phone: [facility] Work Phone: 06-19-2021 08:36-0400 Respiratory rate 18 /min Dr. Luna Flaherty Work Phone: [facility] Work Phone: 06-19-2021 08:36-0400 SaO2% (BldA) [Mass fraction] 99 % Dr. Luna Flaherty Work Phone: [facility] Work Phone: 06-19-2021 08:36-0400 Systolic blood pressure 112 mm[Hg] Dr. Luna Flaherty Work Phone: [facility] Work Phone: 05-10-2021 08:44-0500 Body height 180.[address] Luna Flaherty Work Phone: [facility] Work Phone: 05-10-2021 08:44-0500 Body mass index (BMI) [Ratio] 24.3 kg/m2 Dr. Luna Flaherty Work Phone: [facility] Work Phone: 05-10-2021 08:44-0500 Body temperature 96.3 [degF] Dr. Luna Flaherty Work Phone: [facility] Work Phone: 05-10-2021 08:44-0500 Body weight 78.[address] Luna Flaherty Work Phone: [facility] Work Phone: 05-10-2021 08:44-0500 Diastolic blood pressure 72 mm[Hg] Dr. Luna Flaherty Work Phone: [facility] Work Phone: 05-10-2021 08:44-0500 Heart rate 91 /min Dr. Luna Flaherty Work Phone: [facility] Work Phone: 05-10-2021 08:44-0500 Respiratory rate 16 /min Dr. Luna Flaherty Work Phone: [facility] Work Phone: 05-10-2021 08:44-0500 SaO2% (BldA) [Mass fraction] 99 % Dr. Luna Flaherty Work Phone: [facility] Work Phone: 05-10-2021 08:44-0500 Systolic blood pressure 130 mm[Hg] Dr. Luna Flaherty Work Phone: [facility] Work Phone: 03-27-2021 15:33-0500 Body temperature 96.7 [degF] Dr. Luna Flaherty Work Phone: [facility] Work Phone: 03-27-2021 15:33-0500 Body weight 80.[address] Luna Flaherty Work Phone: [facility] Work Phone: 03-27-2021 15:33-0500 Diastolic blood pressure 78 mm[Hg] Dr. Luna Flaherty Work Phone: [facility] Work Phone: 03-27-2021 15:33-0500 Heart rate 67 /min Dr. Luna Flaherty Work Phone: [facility] Work Phone: 03-27-2021 15:33-0500 Respiratory rate 16 /min Dr. Luna Flaherty Work Phone: [facility] Work Phone: 03-27-2021 15:33-0500 SaO2% (BldA) [Mass fraction] 99 % Dr. Luna Flaherty Work Phone: [facility] Work Phone: 03-27-2021 15:33-0500 Systolic blood pressure 130 mm[Hg] Dr. Luna Flaherty Work Phone: [facility] Work Phone: 03-20-2021 09:33-0500 Body mass index (BMI) [Ratio] 24.3 kg/m2 Dr. Luna Flaherty Work Phone: [facility] Work Phone: 03-20-2021 09:33-0500 Body temperature 96 [degF] Dr. Luna Flaherty Work Phone: [facility] Work Phone: 03-20-2021 09:33-0500 Body weight 78.[address] Luna Flaherty Work Phone: [facility] Work Phone: 03-20-2021 09:33-0500 Diastolic blood pressure 70 mm[Hg] Dr. Luna Flaherty Work Phone: [facility] Work Phone: 03-20-2021 09:33-0500 Heart rate 62 /min Dr. Luna Flaherty Work Phone: [facility] Work Phone: 03-20-2021 09:33-0500 Respiratory rate 16 /min Dr. Luna Flaherty Work Phone: [facility] Work Phone: 03-20-2021 09:33-0500 SaO2% (BldA) [Mass fraction] 99 % Dr. Luna Flaherty Work Phone: [facility] Work Phone: 03-20-2021 09:33-0500 Systolic blood pressure 128 mm[Hg] Dr. Luna Flaherty Work Phone: [facility] Work Phone: Encounters Encounter Date Encounter Type Care Provider Facility Start: 11-25-2024 End: 11-25-[address] Luna Flaherty DO Work Phone: -[facility] Start: 11-25-2024 End: 11-25-[address] Luna Judge DO -[facility] Work Phone: Start: 11-25-2024 End: 11-25-2024 ambulatory Luna Flaherty Facility:[facility] Start: 11-23-2024 End: 11-23-[address] Luna Judge DO -[facility] Work Phone: Start: 11-23-2024 End: 11-23-[address] Luna Flaherty DO Work Phone: -[facility] Start: 11-15-2024 End: 11-15-2024 Patient encounter procedure Victor M Gates [facility] Work Phone: Start: 11-15-2024 End: 11-15-[address] Luna Flaherty DO Work Phone: [facility] Start: 11-15-2024 End: 11-15-2024 ambulatory Luna Flaherty Facility:[facility] Start: 10-19-2024 ambulatory Homer Grey Facility:[facility] Start: 10-19-2024 Non-patient / Non-visit Dr. Brewer [facility] Start: 10-19-2024 End: 10-19-[address] Luna Flaherty DO Work Phone: -[facility]iovascular Services Start: 10-19-2024 End: 10-19-[address] Luna Judge DO -Cardiovascular Services Work Phone: Start: 10-19-2024 End: 10-19-2024 ambulatory Luna Flaherty Facility:[facility] Start: 10-04-2024 End: 10-04-[address] Luna Flaherty DO Work Phone: -Ultrasound [facility] Start: 10-04-2024 End: 10-04-[address] Luna Judge DO -Ultrasound [facility] Work Phone: Start: 10-04-2024 End: 10-04-2024 ambulatory Luna Flaherty Facility:[facility] Start: 09-29-2024 End: 09-29-[address] Luna Judge DO -[facility] Work Phone: Start: 09-29-2024 End: 09-29-[address] Luna Flaherty DO Work Phone: -[facility] Start: 06-21-2024 End: 06-21-[address] Luna Judge DO -[facility] Work Phone: Start: 06-21-2024 End: 06-21-2024 ambulatory Luna Flaherty Facility:[facility] Start: 03-22-2024 End: 03-22-2024 ambulatory Luna Flaherty Facility:[facility] Start: 03-22-2024 End: 03-22-2024 ambulatory Luna Flaherty Facility:[facility] Start: 12-10-2022 End: 12-10-[address] Luna Flaherty Work Phone: [facility] Work Phone: Start: 12-10-2022 End: 12-10-[address] Luna Flaherty Work Phone: [facility] Work Phone: Start: 11-11-2022 End: 11-11-[address] Luna Flaherty Work Phone: [facility] Work Phone: Start: 07-01-2022 End: 07-01-[address] Luna Flaherty Work Phone: [facility] Work Phone: Start: 07-01-2022 End: 07-01-[address] Luna Flaherty Work Phone: [facility] Start: 04-03-2022 End: 04-03-[address] Luna Flaherty Work Phone: [facility] Work Phone: Start: 04-03-2022 End: 04-03-[address] Luna Flaherty Work Phone: [facility] Start: 01-08-2022 End: 01-08-[address] Luna Flaherty Work Phone: [facility] Work Phone: Start: 01-08-2022 End: 01-08-[address] Luna Flaherty Work Phone: [facility] Start: 10-30-2021 End: 10-30-[address] Luna Flaherty Work Phone: [facility] Start: 09-12-2021 End: 09-12-[address] Luna Flaherty Work Phone: [facility] Start: 08-14-2021 End: 08-14-[address] Luna Flaherty Work Phone: [facility] Start: 08-07-2021 End: 08-07-[address] Luna Flaherty Work Phone: [facility] Start: 06-19-2021 End: 06-19-[address] Luna Flaherty Work Phone: [facility] Start: 05-10-2021 End: 05-10-[address] [facility] Start: 03-27-2021 End: 03-27-[address] Luna Flaherty Work Phone: [facility] Start: 03-20-2021 End: 03-20-[address] Luna Flaherty Work Phone: [facility] Start: 04-15-2017 End: 04-16-2017 [facility] LUNA FLAHERTY Facility:[facility] Procedures Date Procedure Procedure Detail Performing Clinician [...] MRI of lumbar spine Spine Lumbar (Routine) [facility] Start: 11-25-2024 Patient encounter procedure Registered Clinical -MRI - [facility] Work Phone: Cardiovascular stres s testing [facility] CT Abdomen W contrast IV [facility] MR Lumbar spine WO a nd W contrast IV [facility] US Gallbladder [facility] XR Lumbar spine 2 or 3 Views [facility] Work Phone: [facility] Immunizations Immunization Date Immunization Notes [facility] Provider [facility]2023 influenza, high dose seasonal, preservative-free Dr. Luna Flaherty DO Work Phone: [facility] 10-31-2023 Pfizer Covid-19 (Comirnaty) Dr. Luna Flaherty DO Work Phone: [facility] 02-05-2023 RSV Adult BiValent (Abrysvo) Dr. Luna Flaherty DO Work Phone: [facility] 11-11-2022 influenza, injectabl e, quadrivalent, preservative free Dr. Luna Flaherty Work Phone: [facility] 02-02-2021 Covid (Pfizer) Dr. Luna hollins Work Phone: [facility] 05-24-2020 Covid (Pfizer) Dr. Luna hollins Work Phone: [facility] 05-03-2020 Covid (Pfizer) Dr. Luna hollins Work Phone: [facility] 11-02-2019 Fluad Quad [id number](65yr up)(PF) 60 mcg (15 mcg x 4)/0.5mL IM syringe (flu vac Dr. Luna Flaherty Work Phone: [facility] Work Phone: 01-12-2019 Fluad 2018- 65yr up(PF)45 mcg(15 mcgx3)/0.5 mL intramuscular syringe (flu vac Dr. Luna Flaherty Work Phone: [facility] Work Phone: 11-18-[address] Luna Flaherty Work Phone: [facility] 01-23-2009 novel influenza-H1N1 -09, preservative-free, injectable Dr. Luna Flaherty Work Phone: [facility] 03-24-2003 TD(adult) unspecifie d formulation Dr. Luna Flaherty Work Phone: [facility] Payers Date Payer Category Payer Self-pay [id number] 2024 Self-pay [id number] 2009 Unknown [id number] Medicare [id number] Unknown [id number] 2.16.8 [id number] Unknown [id number] 2.16.8 [id number] Unknown [id number] 2.16.8 [id number] Unknown [id number] 2.16.8 [id number] Unknown [id number] 2.16.8 [id number] Unknown [id number] 2.16.8 [id number] Unknown [id number] 2.16.8 [id number] Unknown [id number] 2.16.8 [id number] Unknown [id number] 2.16.8 [id number] Unknown [id number] 2.16.8 [id number] Unknown [id number] 2.16.8 [id number] Social History Date Type Detail Facility Start: 05-10-2021 End: 12-10-2022 Tobacco smoking status NHIS Unknown if ever smoked [facility] Start: 1940 Sex Assigned At Male [facility] Start: 05-13-2023 Tobacco smoking stat us NHIS Ex-smoker (finding) [facility] Sex Male [facility] Medical Equipment Procedure Code Equipment Code Equipment [...] & Type Note Facility 11-23-2024 Progress note [facility] 11-15-2024 Radiology Diagnostic study note [facility] Imaging Services [address] [place], [place] [id number] Lumbar Spine 2 or 3 Views MR#: [id number] Acct: [id number] Name: LINA ORTA Rep #: [id number] : 1940 M 83 From: George Bo MD PCP: Dr. Luna Flaherty DO Status: RE G CLI Study:Lumbar Spine 2 or 3 Views Date of Exam: 11/15/24 Exam# [id number] Ordering Dr: [facility] PROCEDURE: LUMBAR [...] CHANGES OF THE LUMBAR SPINE. Reading Location: [place] [address] CC: Dr. Luna Flaherty DO; MARIAA Garcia ~ Cuff Cutter: Signed [facility] 10-04-2024 Radiology Diagnostic study note [facility] Imaging Services [address] [place] [address] Abdomen Limited MR#: [id number] Acct: [id number] Name: LINA ORTA Rep #: [id number] : 1940 M 83 From: George Bo MD PCP: Dr. Luna Flaherty DO Status: RE G CLI Study:Abdomen Limited Date of Exam: 07/24 Exam# [id number] Ordering Dr: Do jorge Flaherty DO PROCEDURE: [...] Fatty infiltration of the liver. Reading Location: [id number] CC: Dr. Luna Flaherty, DO ~ Cuff Cutter: Signed [facility] 09-29-2024 Evaluation note Diagnosis Onset Date Resolution Dyspnea on exertion acute September 29, 2024 2:02pm CKD (chronic kidney disease) stage 1, GFR 90 ml/min or greater chronic September 29 2:02pm Epigastric pain chronic August 2:02pm History of hypothyroidism chronic September 29, 2024 2:02pm HTN (hypertension) chronic September 012024 2:02pm Type II diabetes mellitus chronic September 29, 2024 2:02pm [facility] Work Phone: 1(604) 492-470007-31-2025 Evaluation note* Diagnosis Onset Date Resolution Status [...] 12:00pm Lumbar strain acute October 312024 12:00pm [facility] Work Phone: 1(899) 898-961407-31-2025 Evaluation note* Diagnosis Onset Date Resolution Status [...] lumbar vertebra acute November 23, 2024 10:33am [facility] Work Phone: 1(850) 725-903904-22-2025 Evaluation note* Diagnosis Onset Date Resolution Status [...] diabetes mellitus chronic September 29, 2024 2:02pm [facility] Work Phone: 1(354) 183-781304-22-2025 Evaluation note* Diagnosis Onset Date Resolution Status [...] diabetes mellitus chronic September 29, 2024 2:02pm [facility] Work Phone: Evaluation note* Diagnosis Onset Date Resolution Status Shoulder pain, right acute Hypothyroidism chronic Type II diabetes mellitus ronic Shoulder pain, right acute HTN (hypertension) [facility] Work Phone: Evaluation note* Diagnosis Onset Date Resolution Status HLD (hyperlipidemia) chronic HTN (hypertension) chronic Hypothyroidism chronic Type II diabetes mellitus ch ronic Acute low back pain with rad icular symptoms, duration less than 6 weeks acute HTN (hypertension) chronic [id number] noneacti [facility] Work Phone: Evaluation note* Diagnosis Onset Date Resolution Status HTN (hypertension) chronic Hypothyroidism chronic Type II diabetes mellitus ch ronic Nocturia associated with benign prostatic hyperplasia acute Epigastric pain chronic HTN (hypertension) chronic Type II diabetes mellitus [facility] Work Phone: Evaluation note* Diagnosis Onset Date Resolution Status Nocturia associated with benign prostatic hyperplasia acute Epigastric pain chronic HTN (hypertension) chronic Type II diabetes mellitus ch ronic HTN (hypertension) chronic Hypothyroidism chronic Type II diabetes mellitus [facility] Work Phone: Evaluation note* Diagnosis Onset Date Resolution Status HTN (hypertension) chronic Hypothyroidism chronic Type II diabetes mellitus ch ronic Epigastric pain chronic History of hypothyroidism ch ronic HTN (hypertension) chronic Type II diabetes mellitus [facility] Work Phone: Evaluation note* Diagnosis Onset Date Resolution Status CAD (coronary artery disease) chronic Epigastric pain chronic HTN (hypertension) chronic Type II diabetes mellitus ch ronic HTN (hypertension) chronic Type II diabetes mellitus [facility] Work Phone: Progress note Author Luna Flaherty [facility] Note Date/Time November 23, 2024 11:19am [facility] [address] [place] [address] [place] [address] OFFICE VISIT Date of Service: 11/23/24 MR#: [id number] Acct: [id number] Name: LINA ORTA Rep #: [id number] : 1940 Provider: Dr. Isaias Flaherty, DO Age/Sex: 83/M Location: [facility] Status: Signed Intake Vital Signs 09/29/24 14:17 [...] Reasons: BACK PAIN Chief Complaint: Back Pain Cook Vacuum Kettle Required: No Is patient in pain?: Yes [...] back pain, saw Rocco Gates at the [facility] on 11/15/24. Told xray was WNL. [...] into other parts of body. [facility] Medical History Lumbar strain Low back pain [...] pain he went on a cruise to [place] but was in a wheelchair all the [...] Cosigner Signature: Date (if applicable) CC: ~ [facility] Work Phone: Reason for referral (narrative)No reason for referral information availableChildren[facility] Work Phone: Summary Purpose Family History [...] duration less than 6 weeks HTN (hypertension) [id number] Chief Complaint 3 M FU 3 M [...] section and content) DATE CREATED AUTHOR 08/21/2017 [facility] ([place] DATE CREATED AUTHOR AUTHOR'S ORGANIZ ATION 12/02/2024 [facility] Goals (unrecognized section and content) Goals may [...] Status: Inactive Member Role/Relationship Status Dates Dr. Luan Flaherty DO Primary Care Provider Active Start: [...] Attending Provider Active Start: November 15, 2024 MAIRAA Tipton Referring Provider Active Start: November 15, [...] BE BASED ON THE PRIMARY CLINICAL RECORDS. [employer] [facility]. provides no warranty or guarantee of the accuracy or completeness of information in this document.
--- NOTE | 2024-12-03 17:20 | RAD_ITS ---
PROCEDURE: CHEST PA AND LATERAL 12/03/2024 REASON FOR EXAM: WEAKNESS AND HYPERCALCEMIA TECHNIQUE: Procedure Code: RADCXR Modality: DX Procedure: CHEST PA AND LATERAL COMPARISON: None available. FINDINGS: Hardware: None. Heart: The heart size is normal. Mediastinum: The mediastinal contour is unremarkable. Lungs: The lungs are clear. Bones: The bones are unremarkable. RAD/Chest PA and Lateral IMPRESSION: NO ACUTE FINDINGS. Reading [facility]
[2024-12-03 17:47] VITALS: BP 175/71; PULSE 84; RESP 17; TEMP 36.5; O2SAT 100; BMI 22.6
[2024-12-03 18:29] LABS: PTHIN 15 pg/mL (11-61)
[2024-12-03 18:50] LABS: CPK Total, Creatine Kinase 47 U/L (24-195)
[2024-12-03 19:10] LABS: Vitamin D,25 Hydroxy 43.3 ng/mL (30-100)
[2024-12-03 19:56] LABS: Magnesium 5.4 mg/dL (1.5-2.2)
[2024-12-03 20:17] VITALS: BP 151/81; PULSE 110; RESP 18; TEMP 36.6; O2SAT 100
[2024-12-03 20:46] LABS: Mucous, Urine 0 SEEN /hpf (<or=2+)
[2024-12-03 20:48] LABS: Glucose, Dipstick Normal (Normal); Ketone-Dipstick Negative (Negative); Leukocyte Esterase-Dipstick 25 /ul (Negative); Nitrite-Dipstick Negative (Negative); Occult Blood-Urine 250 /ul (Negative); Protein-Dipstick 30 mg/dl (Negative); Specific Gravity, Urine 1.010 (1.002-1.030); Urine Bilirubin Dipstick Negative (Negative)
[2024-12-03 20:50] LABS: Osmolality, Serum 324 mOsm/KG (280-301)
[2024-12-03 21:07] LABS: Color, Urine Straw (Yellow)
[2024-12-03] MEDS: 0.9% Normal Saline (1000mL) 1,000 ML 100 ML IV (21:25)
[2024-12-03 21:29] LABS: Anion Gap 20 (5-15); BUN 111 mg/dL (4-19); BUN/Creat Ratio 13.1 RATIO (10-20); Calcium,Total 13.0 mg/dL (7.6-11.0); Carbon Dioxide 18.5 mmol/L (21.0-32.0); Chloride 88 mmol/L (98-108); Estimated Creatinine Clearance 7.08 ml/min (50-250); Glucose 82 mg/dL (70-99); Potassium 4.1 mmol/L (3.3-5.1)
[2024-12-03 21:34] LABS: Red Blood Cells-Urine 10-25 SEEN /hpf (0-5); Squamous Epithelial Cells - UA 0-5 SEEN /hpf (0-5)
[2024-12-03 21:41] LABS: Creatinine, Urine (random) 50.10 mg/dL (39.00-259.00)
[2024-12-03 21:56] LABS: Osmolality, Urine 336 mOsm/KG
[2024-12-03 22:06] LABS: Microalbumin,Random Urine 101.0 mg/L (<20 mg/L); Urea Nitrogen, Urine 406 mg/dL (NO RANGE EST.)
[2024-12-04] MEDS: 0.9% Normal Saline (1000mL) 1,000 ML 100 ML IV (02:04)
[2024-12-04 02:09] VITALS: BP 147/67; PULSE 88; RESP 18; TEMP 36.6; O2SAT 100
[2024-12-04 03:17] VITALS: BMI 22.4
[2024-12-04 03:59] LABS: Hematocrit 21.3 % (40-54); Hemoglobin 7.9 g/dL (13.0-16.5); Immature Granulocytes Count 0.030 X10^3/uL (0.0-0.0); Mean Corp Hgb Conc 37.1 g/dL (32-36); Mean Corpuscular Volume 98.6 fL (80-94); Mean Platelet Vol. 9.7 fl (6.2-12.0); NRBC Flagged by Analyzer 0 % (0-5); Platelet Count 134 K/mm3 (150-450); RBC Distribution Width CV 11.5 % (11.6-14.6); RBC Distribution Width SD 41.4 fl (35.1-43.9); Red Blood Count 2.16 M/mm3 (4.6-6.2); White Blood Count 6.4 K/mm3 (4.4-11.0)
[2024-12-04 04:46] LABS: Anion Gap 14 (5-15); BUN 112 mg/dL (4-19); BUN/Creat Ratio 13.2 RATIO (10-20); Calcium,Total 12.3 mg/dL (7.6-11.0); Carbon Dioxide 21.4 mmol/L (21.0-32.0); Chloride 93 mmol/L (98-108); Estimated Creatinine Clearance 6.97 ml/min (50-250); Glucose 72 mg/dL (70-99); Potassium 4.4 mmol/L (3.3-5.1)
[2024-12-04 05:00] LABS: Cholesterol 53 mg/dL (<=200); Low Density Lipoprotein Calc. 7 mg/dL; Triglycerides 103 mg/dL; Very Low Density Lipoprotein 21 mg/dL (5-40); cholesterol:hdl ratio screen 2.09
--- NOTE | 2024-12-04 06:47 | NURSING ---
AM blood sugar check was 65, pt attempted to drink sprite and eat Jello but states it is making him feel nauseated. Dextrose administered.
[2024-12-04 08:00] VITALS: BP 145/79; PULSE 78; RESP 16; TEMP 36.4; O2SAT 97
[2024-12-04 08:10] VITALS: BP 149/75; PULSE 95; RESP 18; TEMP 36.4; O2SAT 100
--- NOTE | 2024-12-04 08:27 | PCM.PN.HOSP ---
Reason for Visit Chief Complaint: N/V, generalized weakness Subjective Subjective Reportedly ate well yesterday but then was feeling nauseous overnight and also having reflux symptoms, it was reported that he has been Gaviscon and Tums every night to the reflux symptoms. Today not eating or drinking well. Has been more tired since receiving Compazine for his nausea. Denying any shortness of breath or abdominal pain, reportedly did have a good bowel movement overnight, still making urine. Is still having reflux symptoms Objective Data Objective Data Vital Signs: Vital Signs Temp Pulse Resp BP Pulse Ox O2 Del Method 97.8 F 88 18 147/67 H 100 Room Air 12/04/24 02:09 12/04/24 02:09 12/04/24 02:09 12/04/24 02:09 12/04/24 02:09 12/04/24 02:09 Oxygen Delivery Method Room Air Weight: 74.8 kg Body Mass Index (BMI) 22.4 Intake & Output: Intake and Output for Last 24 Hours 12/02/24 12/03/24 12/04/24 23:59 23:59 23:59 Intake Total 2240 / 2240 1865 / 1865 Output Total 800 / 800 500 / 500 Balance 1440 / 1440 1365 / 1365 Lab / Micro Data 12/04/24 03:43 12/04/24 03:43 Labs: Laboratory Results - last 24 hr 12/03/24 14:24: WBC 8.0, RBC 2.96 L, Hgb 10.7 L, Hct 28.9 L, MCV 97.6 H, MCH 36.1 H, MCHC 37.0 H, RDW Std Deviation 40.3, RDW Coeff of Scotty 11.3 L, Plt Count 206, MPV 9.6, Immature Gran % (Auto) 0.400, Neut % (Auto) 76.6 H, Lymph % (Auto) 14.1 L, [place] % (Auto) 8.6, Eos % (Auto) 0.2, Baso % (Auto) 0.1, Absolute Neuts (auto) 6.2, Absolute Lymphs (auto) 1.13, Nucleated RBC % 0, Sodium 126 L, Potassium 4.2, Chloride 84 L, Carbon Dioxide 19.5 L, Anion Gap 23 H, BUN 113 H*, Creatinine 8.56 H*, Est GFR (MDRD) Non-Af 6 L, BUN/Creatinine Ratio UNABLE TO CALCULATE L, Glucose 58 L, Calcium 14.6 H*, Phosphorus 5.6 H, Magnesium 5.4 H*, Total Bilirubin 0.70, AST 29, ALT 25, Alkaline Phosphatase 91, Total Creatine Kinase 47, Total Protein 9.6 H, Albumin 3.6, Globulin 6.1 H, Albumin/Globulin Ratio 0.6 L, Lipase 57, Vitamin D 25-Hydroxy 43.3, TSH 0.591, PTH Intact 15 12/03/24 18:52: POC Glucose 49 L 12/03/24 19:27: POC Glucose 56 L 12/03/24 20:12: Sodium 127 L, Potassium 4.1, Chloride 88 L, Carbon Dioxide 18.5 L, Anion Gap 20 H, BUN 111 H*, Creatinine 8.45 H*, Estim Creat Clear Calc 7.08 L*, Est GFR (MDRD) Non-Af 6 L, BUN/Creatinine Ratio 13.1, Glucose 82, Serum Osmolality 324 H, Calcium 13.0 H* 12/03/24 20:30: POC Glucose 75 12/03/24 20:38: Urine Color Straw, Urine Clarity Clear, Urine pH 7.0, Ur Specific [place] 1.010, Urine Protein 30 H, Urine Glucose (UA) Normal, Urine Ketones Negative, Urine Occult Blood 250 H, Urine Nitrite Negative, Urine Bilirubin Negative, Urine Urobilinogen Normal, Ur Leukocyte Esterase 25 H, Urine RBC 10-25 SEEN, Urine WBC 0-5 SEEN, Ur Squamous Epith Cells 0-5 SEEN, Urine Bacteria RARE, Urine Mucus 0 SEEN, Urine Osmolality 336, Ur Random Microalbumin 101.0, Ur Random Sodium 56, Urine Creatinine 50.10, Microalb/Creat Ratio 201.6 H, Urine Potassium 25.6, Urine Chloride 46, Urine Urea Nitrogen 406 12/04/24 03:43: WBC 6.4, RBC 2.16 L, Hgb 7.9 L, Hct 21.3 L, MCV 98.6 H, MCH 36.6 H, MCHC 37.1 H, RDW Std Deviation 41.4, RDW Coeff of Scotty 11.5 L, Plt Count 134 L, MPV 9.7, Immature Gran % (Auto) 0.500, Neut % (Auto) 75.9 H, Lymph % (Auto) 12.1 L, [place] % (Auto) 9.9, Eos % (Auto) 1.4, Baso % (Auto) 0.2, Absolute Neuts (auto) 4.9, Absolute Lymphs (auto) 0.77 L, Nucleated RBC % 0, Sodium 129 L, Potassium 4.4, Chloride 93 L, Carbon Dioxide 21.4, Anion Gap 14, BUN 112 H*, Creatinine 8.49 H*, Estim Creat Clear Calc 6.97 L*, Est GFR (MDRD) Non-Af 6 L, BUN/Creatinine Ratio 13.2, Glucose 72, Calcium 12.3 H, Triglycerides 103, Cholesterol 53, LDL Cholesterol, Calc 7, VLDL Cholesterol 21, HDL Cholesterol 25 L, Cholesterol/HDL Ratio 2.09 12/04/24 05:50: POC Glucose 65 L 12/04/24 06:40: POC Glucose 142 H Radiography Diagnostic Testing: Radiology Impression Chest X-Ray 12/03/24 17:20 IMPRESSION: NO ACUTE FINDINGS. Reading Location: [facility] Physical Exam Narrative General: A little bit tired but answering questions appropriately HEENT: Atraumatic, normocephalic Eyes: Anicteric, normal conjunctiva, extraocular movements grossly intact Neck: Supple Respiratory: Clear to auscultation bilaterally, normal respiratory effort Cardiovascular: Regular rate GI: Soft, nontender Extremities: No edema Musculoskeletal: Moving all extremities Neuro: No overt focal neurological deficits Skin: No rashes appreciated Psych: Cooperative Assessment & Plan Assessment/Plan (1) Acute renal failure: PLAN: Plan #Acute kidney failure -Patient with a creatinine around 1.5 at baseline with most recent value 9 months ago being 1.5 to - Presenting now with a creatinine of 8.56 - Bicarb 19.5 - Patient not hyperkalemic - Vitally stable and not volume overloaded - Patient alert, no seizure activity, confusion, altered mental status - Presently does not seem to have any indications for emergent dialysis - Suspect that patient's nausea and vomiting with very poor p.o. intake on top of continuing to take his valsartan/hydrochlorothiazide caused or largely contributed to his worsening renal failure - Patient reportedly had been urinating at home and even urinated this morning however in the ED unable to urinate and has 280 on bladder scan - Unclear if there has been an obstructive component to this as well given patient's report of urinating okay prior to coming in - Will have Monterroso catheter placed given patient reporting he is unable to urinate in the ED and bladder scan shows 280 - IV fluids - Will check UA given reports of suprapubic discomfort - Check urine studies - Kidney and bladder ultrasound -Check CK - Discussed with nephrology, nephrology consult placed -12/04: Despite sodium and calcium improving, kidney function has remained about the same, BUN this a.m. 112 with a creatinine of 8.49. UA with protein and occult blood, rare bacteria and does not seem UA is indicative of infection. FEUrea is 61.8 suggesting intrinsic renal disease. SPEP and UPEP pending, nephrology consulted, kidney and bladder ultrasound ordered, Monterroso catheter in place, patient has had 1300 output since admission yesterday evening. [place] lambda light chains ordered in addition to protein electrophoresis. Discussed with nephrology. # Hypercalcemia -Unclear if this is secondary to significant dehydration or if this could be a primary process associated with his renal failure and dehydration - Will hydrate with normal saline - Will check PTH and vitamin D - will check Phos - If no or minimal improvement can consider calcitonin and/or bisphosphonates - Will also check serum and urine protein electrophoresis given high calcium with kidney failure, high total protein and globulin, anemia and recent L1 fracture/bone pain in addition to generalized weakness - Chest x-ray also ordered to evaluate for any possible lesions -12/04: Improving with hydration, patient's Phos is high which is likely secondary to his renal failure, notably vitamin D is within normal limits at 43 and PTH is only 15. Suspect that patient's hypercalcemia is largely due to dehydration in addition to his hydrochlorothiazide in addition to multiple calcium based medications being taken daily for reflux but workup still pending. Protein electrophoresis pending and kappa lambda light chains ordered #Hyponatremia -Possibly secondary to dehydration but cannot say definitively, patient additionally on hydrochlorothiazide which will be held - Will order serum osmole's - Check urine studies - TSH - Lipid profile - Monitor I's and O's - Trend BMPs -12/04: Patient actually has elevated serum osmolality with an osmolality of 324 but no hyperglycemia or hyperlipidemia therefore suspect this is either due to his kidney failure with uremia or could possibly pseudohyponatremia due to a paraproteinemia +/- HCTZ, serum and urine protein electrophoresis pending as well as kappa lambda light chains. Notably sodium has slowly up trended to 129 with fluids and cessation of HCTZ, will continue present management while further workup underway # Macrocytic anemia -12/04: Patient with hemoglobin 10.7 on presentation with no previous baseline seen in our system, this a.m. hemoglobin 7.9 which is significant drop but no evidence of ongoing bleeding, suspect the patient was significantly volume depleted/dehydrated and was hemoconcentrated especially given drop in all 3 cell lines. MCV is 98.6, will be ordering B12, iron panel, folate #GERD -Continue PPI -12/04: Reportedly patient's been having significant reflux symptoms for the past year, takes omeprazole at home and has been taking nightly calcium based products for reflux, patient's reflux may be contributing to his nausea, will place on IV PPI twice daily, avoiding calcium based agents #Hypertension -Will be holding valsartan/hydrochlorothiazide due to the above -12/04: Continue to hold valsartan/hydrochlorothiazide and monitor blood pressure, can consider alternative agent if necessary but will be careful to avoid hypotension #L1 compression fracture - Patient scheduled for kyphoplasty Thursday - Denies taking any NSAIDs or pain medications - Supportive care -12/04: Continue pain control and supportive care #Type 2 diabetes mellitus -Glucose checks and sliding scale insulin - Had somewhat low glucose of 59 on presentation - Will decrease long-acting insulin - Holding sitagliptin and metformin -12/04: Glucose has actually remained low, will discontinue long-acting insulin altogether Chronic medical problems and/or problems not being actively addressed during today's encounter: #Hypothyroidism -Continue Synthroid #DVT ppx: SCDs Claire Mazariegos MD Time spent in the patient's overall evaluation,decision-making process, review of diagnostic data, adjustment of management, discussion with other providers, nursing nursing and ancillary staff involved in patient's care documentation, 56 Minutes Charges/Coding Visit Charges Inpatient E&M: 43551 [facility] Hosp L3
[2024-12-04] MEDS: Lidocaine 5% Patch 1 PATCH TOPICAL (10:28)
[2024-12-04] MEDS: 0.9% Normal Saline (1000mL) 1,000 ML 75 ML IV (12:58)
[2024-12-04] MEDS: PANTOPRAZOLE SODIUM IV (13:30)
[2024-12-04] MEDS: NORMAL SALINE 0.9% IV (13:30)
[2024-12-04 14:00] VITALS: BP 145/79; PULSE 78; RESP 16; TEMP 36.4; O2SAT 97
--- NOTE | 2024-12-04 14:51 | PCM.CONS.R ---
Assessment & Plan Assessment/Plan (1) Hypercalcemia: (2) Acute renal failure: PLAN: Baseline creatinine as of beginning of this year was around 1.4 or so. Admission creatinine more than 9. Monterroso indwelling without much urine output. Renal ultrasound pending Associated hypercalcemia recent spine related issues. Will check serum protein electrophoresis, kappa, lambda light chain assay. I will also send other serologies. He also takes Tums 1 a day due to acid reflux. I am not sure if that is the cause of hypercalcemia as well. So far PTH is suppressed. Continue IV fluids for now. If no significant recovery, may need a kidney biopsy. 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 Nephrology on consultation in view of acute renal failure. Primary care physician is Dr. Flaherty. As of March this year, creatinine was around 1.3-1.4. Over the last few months, medical events include sudden onset of low back pain, had imaging studies which showed compression fracture, was in the process of scheduling appointment with pain management. They actually have an appointment tomorrow. Over the last 2 weeks or so, he had progressively worsening poor appetite, nausea, vomiting. Minimal oral intake. Found to have renal failure, creatinine more than 9 in the ER. He says he was making urine but since he was not eating or drinking much, urine output has decreased. Denies any obstructive symptoms. Initial bladder scan in the ER was about 200 cc or so, Monterroso placed with some urine. Denies taking any zeox-kou-tgaelbd medications. Other than pain medications, no other new medications. [facility] Medical History (Updated 12/04/24 @ 12:[address] Claire Mazariegos MD) CKD (chronic kidney disease) stage 1, GFR 90 ml/min or greater Trigger finger of right hand Apical variant hypertrophic cardiomyopathy HLD (hyperlipidemia) Shingles (herpes zoster) polyneuropathy Acute urticaria GERD (gastroesophageal reflux disease) Hypothyroidism Home Medications ?Medication ?Instructions ?Recorded ?Last Taken ?Type blood sugar diagnostic (True #100 ea 02/11/23 Unknown Rx Metrix Glucose Test Strip) blood-glucose meter #1 ea 02/11/23 Unknown Rx atorvastatin 20 mg tablet 20 mg PO QDAY #90 tabs 09/29/24 12/02/24 Rx lancets 30 gauge (Unilet Lancets) #100 ea 09/29/24 Unknown Rx levothyroxine 100 mcg tablet 100 mcg PO DAILY #100 tabs 09/29/24 12/03/24 Rx metformin 500 mg tablet,extended 500 mg PO BID #180 tabs 09/29/24 12/03/24 10:00 Rx release 24 hr omeprazole 20 mg capsule,delayed 20 mg PO DAILY #100 caps 09/29/24 12/03/24 Rx release pen needle, diabetic 29 gauge x #100 ea 09/29/24 Unknown Rx 1/2 (CareFine Pen Needle) sitagliptin phosphate 100 mg 100 mg PO DAILY #100 tabs 09/29/24 12/03/24 Rx tablet (Januvia) valsartan 160 1 tab PO DAILY #90 TABLETS 09/29/24 12/03/24 Rx mg-hydrochlorothiazide 12.5 mg tablet ondansetron 4 mg disintegrating 4 mg PO Q8H PRN nausea and 11/29/24 12/02/24 Rx tablet vomiting #14 tabs insulin glargine 100 unit/mL (3 21 unit subcut QHS 12/03/24 12/02/24 History mL) subcutaneous pen (Lantus Solostar U-100 Insulin) magnesium 250 mg tablet 250 mg PO QHS 12/03/24 12/02/24 History Allergy/AdvReac Type Severity Reaction Status Date / Time meloxicam (From Mobic) Allergy Severe unknown Verified 12/03/24 14:09 pentazocine (From Talwin) Allergy Severe unknown Verified 12/03/24 14:09 metaxalone AdvReac Intermediate Nausea Verified 12/03/24 14:09 Family History Father Heart disease Mother CVA (cerebral vascular accident) Hypertension Breast cancer Surgical History History of back surgery History of left knee surgery History of appendectomy History of cardiac cath Social History Smoking Status: Never smoker how long ago did patient quit smokin alcohol intake: never ROS ROS Narrative negative except above Physical Exam Narrative Alert awake oriented x 3 no obvious distress no pallor no icterus no JVD s1s2 no murmurs lungs clear abdomen soft no organomegaly no edema Medical Records Data Medical Nutrition Assessment Dietitian: Malnutrition Criteria Met Start: 12/04/24 12:12 Freq: Status: Active Protocol: Document 12/04/24 12:12 SLA (Rec: 12/04/24 12:13 SLA [id number]) Nutrition Malnutrition Evidence of Yes Malnutrition Exists Malnutrition (severe Acute Illness/Injury ): Evidenced By Suboptimal Energy Intake (Severe),Weight Loss (Severe) Clinical Problem Acute Disease or Injury Related Malnutrition Etiology related to 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 Status Active Problem Recommendation Dietitian Will liberalize diet to Regular w/ glucerna shake tid Recommendations/ at meals - once po intake improves, can adjust to carb Changes controlled diet if indicated. Will continue to follow and monitor for changes in pt nutritional status and make additional rec as indicate. Lab / Micro Data 12/04/24 03:43 12/04/24 03:43 Labs: Laboratory Results - last 24 hr 12/03/24 14:24: Sodium 126 L, Potassium 4.2, Chloride 84 L, Carbon Dioxide 19.5 L, Anion Gap 23 H, BUN 113 H*, Creatinine 8.56 H*, Est GFR (MDRD) Non-Af 6 L, BUN/Creatinine Ratio UNABLE TO CALCULATE L, Glucose 58 L, Calcium 14.6 H*, Phosphorus 5.6 H, Magnesium 5.4 H*, Total Bilirubin 0.70, AST 29, ALT 25, Alkaline Phosphatase 91, Total Creatine Kinase 47, Total Protein 9.6 H, Albumin 3.6, Globulin 6.1 H, Albumin/Globulin Ratio 0.6 L, Lipase 57, Vitamin D 25-Hydroxy 43.3, TSH 0.591, PTH Intact 15 12/03/24 18:52: POC Glucose 49 L 12/03/24 19:27: POC Glucose 56 L 12/03/24 20:12: Sodium 127 L, Potassium 4.1, Chloride 88 L, Carbon Dioxide 18.5 L, Anion Gap 20 H, BUN 111 H*, Creatinine 8.45 H*, Estim Creat Clear Calc 7.08 L*, Est GFR (MDRD) Non-Af 6 L, BUN/Creatinine Ratio 13.1, Glucose 82, Serum Osmolality 324 H, Calcium 13.0 H* 12/03/24 20:30: POC Glucose 75 12/03/24 20:38: Urine Color Straw, Urine Clarity Clear, Urine pH 7.0, Ur Specific [place] 1.010, Urine Protein 30 H, Urine Glucose (UA) Normal, Urine Ketones Negative, Urine Occult Blood 250 H, Urine Nitrite Negative, Urine Bilirubin Negative, Urine Urobilinogen Normal, Ur Leukocyte Esterase 25 H, Urine RBC 10-25 SEEN, Urine WBC 0-5 SEEN, Ur Squamous Epith Cells 0-5 SEEN, Urine Bacteria RARE, Urine Mucus 0 SEEN, Urine Osmolality 336, Ur Random Microalbumin 101.0, Ur Random Sodium 56, Urine Creatinine 50.10, Microalb/Creat Ratio 201.6 H, Urine Potassium 25.6, Urine Chloride 46, Urine Urea Nitrogen 406 12/04/24 03:43: WBC 6.4, RBC 2.16 L, Hgb 7.9 L, Hct 21.3 L, MCV 98.6 H, MCH 36.6 H, MCHC 37.1 H, RDW Std Deviation 41.4, RDW Coeff of Scotty 11.5 L, Plt Count 134 L, MPV 9.7, Immature Gran % (Auto) 0.500, Neut % (Auto) 75.9 H, Lymph % (Auto) 12.1 L, [place] % (Auto) 9.9, Eos % (Auto) 1.4, Baso % (Auto) 0.2, Absolute Neuts (auto) 4.9, Absolute Lymphs (auto) 0.77 L, Nucleated RBC % 0, Sodium 129 L, Potassium 4.4, Chloride 93 L, Carbon Dioxide 21.4, Anion Gap 14, BUN 112 H*, Creatinine 8.49 H*, Estim Creat Clear Calc 6.97 L*, Est GFR (MDRD) Non-Af 6 L, BUN/Creatinine Ratio 13.2, Glucose 72, Calcium 12.3 H, Triglycerides 103, Cholesterol 53, LDL Cholesterol, Calc 7, VLDL Cholesterol 21, HDL Cholesterol 25 L, Cholesterol/HDL Ratio 2.09 12/04/24 05:50: POC Glucose 65 L 12/04/24 06:40: POC Glucose 142 H 12/04/24 12:42: POC Glucose 81 Imaging Radiology Impression Chest X-Ray 12/03/24 17:20 IMPRESSION: NO ACUTE FINDINGS. Reading Location: [facility]
[2024-12-04 21:06] VITALS: BP 154/73; PULSE 83; RESP 16; TEMP 36.3; O2SAT 93
[2024-12-04] MEDS: Pantoprazole Sodium 40 MG in 0.9% Normal Saline (100mL MB+) 100 ML 300 MG IV (21:13)
[2024-12-04] MEDS: MELATONIN 10 MG TABLET PO (23:31)
[2024-12-05] MEDS: 0.9% Normal Saline (1000mL) 1,000 ML 75 ML IV ×2 (02:05→16:28)
[2024-12-05 02:58] VITALS: BMI 23.0
[2024-12-05 03:05] VITALS: BP 148/81; PULSE 80; RESP 16; TEMP 36.3; O2SAT 96
[2024-12-05 06:24] LABS: Hematocrit 20.6 % (40-54); Hemoglobin 7.3 g/dL (13.0-16.5); Mean Corp Hgb Conc 35.4 g/dL (32-36); Mean Corpuscular Volume 101.5 fL (80-94); Mean Platelet Vol. 10.3 fl (6.2-12.0); Platelet Count 122 K/mm3 (150-450); RBC Distribution Width CV 11.6 % (11.6-14.6); RBC Distribution Width SD 42.8 fl (35.1-43.9); Red Blood Count 2.03 M/mm3 (4.6-6.2); White Blood Count 5.3 K/mm3 (4.4-11.0)
[2024-12-05 06:27] LABS: FOLATES,SERUM (FOLIC ACID) 6.03 ng/mL (4.60-34.80)
[2024-12-05 06:30] LABS: Ferritin 453 ng/mL (37-417); Iron 84 ug/dL (65-175); Iron Binding Capacity,Unsat 104 ug/dL (228-428); Vitamin B12 456 pg/mL (180-914)
[2024-12-05 06:31] LABS: Anion Gap 14 (5-15); BUN 107 mg/dL (4-19); BUN/Creat Ratio 12.2 RATIO (10-20); Calcium,Total 11.5 mg/dL (7.6-11.0); Carbon Dioxide 19.1 mmol/L (21.0-32.0); Chloride 95 mmol/L (98-108); Estimated Creatinine Clearance 6.93 ml/min (50-250); Glucose 128 mg/dL (70-99); Iron Binding Capacity,Total 188 ug/dL (250-450); Potassium 4.1 mmol/L (3.3-5.1)
--- NOTE | 2024-12-05 07:00 | US_ITS ---
PROCEDURE: KIDNEY AND BLADDER 12/05/2024 REASON FOR EXAM: ACUTE RENAL FAILURE TECHNIQUE: Procedure Code: USKI Modality: US Procedure: KIDNEY AND BLADDER COMPARISON: July 10, 2022 FINDINGS: Kidneys: The right kidney is 13.3 x 6.8 x 6.3 cm, while the left is 13.8 x 5.6 x 5.2 cm. [place]: None Cysts or Masses: None Bladder: Monterroso catheter is in place. US/Kidney and Bladder IMPRESSION: No acute abnormality. No obstruction Reading Location: [id number]
--- NOTE | 2024-12-05 07:54 | PN.HOSP_ITS ---
Reason for Visit Chief Complaint: N/V, generalized weakness Subjective Subjective Patient actually feeling a little bit better this morning, less groggy, much less nauseous, reflux symptoms significantly improved with scheduling PPI, still making urine, no new complaints Objective Data Objective Data Vital Signs: Vital Signs Temp Pulse Resp BP Pulse Ox O2 Del Method 97.3 F L 80 16 148/81 H 96 Room Air 12/05/24 03:05 12/05/24 03:05 12/05/24 03:05 12/05/24 03:05 12/05/24 03:05 12/05/24 03:05 Oxygen Delivery Method Room Air Weight: 76.9 kg Body Mass Index (BMI) 23.0 Intake & Output: Intake and Output for Last 24 Hours 12/03/24 12/04/24 12/05/24 23:59 23:59 23:59 Intake Total 2240 / 2240 2390 / 2390 1103.75 / 1103.75 Output Total 800 / 800 1525 / 1525 600 / 600 Balance 1440 / 1440 865 / 865 503.75 / 503.75 Medical Nutrition Assessment Dietitian: Malnutrition Criteria Met Start: 12/04/24 12:12 Freq: Status: Active Protocol: Document 12/04/24 12:12 SLA (Rec: 12/04/24 12:13 SLA 10..25.7) Nutrition Malnutrition Evidence of Yes Malnutrition Exists Malnutrition (severe Acute Illness/Injury ): Evidenced By Suboptimal Energy Intake (Severe),Weight Loss (Severe) Clinical Problem Acute Disease or Injury Related Malnutrition Etiology related to issues w/ nausea and vomiting x 2-3 wks [employer] prec[employer] and inadequate energy intake Signs/Symptoms as evidenced by po intake meeting <75% of est nutritional needs and 3% unintended wt loss x 2-3 wks [employer] prec[employer]. Status Active Problem Recommendation Dietitian Will liberalize diet to Regular w/ glucerna shake tid Recommendations/ at meals - once po intake improves, can adjust to carb Changes controlled diet if indicated. Will continue to follow and monitor for changes in pt nutritional status and make additional rec as indicate. Lab / Micro Data 12/05/24 05:04 12/05/24 05:04 Labs: Laboratory Results - last 24 hr 12/04/24 12:42: POC Glucose 81 12/04/24 17:24: POC Glucose 104 12/04/24 21:10: POC Glucose 132 H 10/06/25 05:04: WBC 5.3, RBC 2.03 L, Hgb 7.3 L, Hct 20.6 L, MCV 101.5 H, MCH 36.0 H, MCHC 35.4, RDW Std Deviation 42.8, RDW Coeff of Scotty 11.6, Plt Count 122 L, MPV 10.3, Sodium 128 L, Potassium 4.1, Chloride 95 L, Carbon Dioxide 19.1 L, Anion Gap 14, BUN 107 H*, Creatinine 8.79 H*, Estim Creat Clear Calc 6.93 L*, E st GFR (MDRD) Non-Af 6 L, BUN/Creatinine Ratio 12.2, Glucose 128 H, Calcium 11.5 H, Iron 84, TIBC 188 L, Iron Saturation 44.7, Unsaturated IBC 104 L, Ferritin 453 H, Vitamin B12 456, Serum Folate 6.03 12/05/24 06:01: POC Glucose 118 H Physical Exam Narrative General: Awake and alert, answering questions appropriately HEENT: Atraumatic, normocephalic Eyes: Anicteric, normal conjunctiva, extraocular movements grossly intact Neck: Supple Respiratory: Clear to auscultation bilaterally, normal respiratory effort Cardiovascular: Regular rate GI: Soft, nontender Extremities: No edema Musculoskeletal: Moving all extremities Neuro: No overt focal neurological deficits Skin: No rashes appreciated Psych: Cooperative Assessment & Plan Assessment/Plan (1) Acute renal failure: PLAN: Plan #Acute kidney failure -Patient with a creatinine around 1.5 at baseline with most recent value 9 months ago being 1.5 to - Presenting now with a creatinine of 8.56 - Bicarb 19.5 - Patient not hyperkalemic - Vitally stable and not volume overloaded - Patient alert, no seizure activity, confusion, altered mental status - Presently does not seem to have any indications for emergent dialysis - Suspect that patient's nausea and vomiting with very poor p.o. intake on top of continuing to take his valsartan/hydrochlorothiazide caused or largely contributed to his worsening renal failure - Patient reportedly had been urinating at home and even urinated this morning however in the ED unable to urinate and has 280 on bladder scan - Unclear if there has been an obstructive component to this as well given patient's report of urinating okay prior to coming in - Will have Monterroso catheter placed given patient reporting he is unable to urinate in the ED and bladder scan shows 280 - IV fluids - Will check UA given reports of suprapubic discomfort - Check urine studies - Kidney and bladder ultrasound -Check CK - Discussed with nephrology, nephrology consult placed -12/04: Despite sodium and calcium improving, kidney function has remained about the same, BUN this a.m. 112 with a creatinine of 8.49. UA with protein and occult blood, rare bacteria and does not seem UA is indicative of infection. FEUrea is 61.8 suggesting intrinsic renal disease. SPEP and UPEP pending, nephrology consulted, kidney and bladder ultrasound ordered, Monterroso catheter in place, patient has had 1300 output since admission yesterday evening. [employer] lambda light chains ordered in addition to protein electrophoresis. Discussed with nephrology. -12/05: BUN 107 with a creatinine slightly worse of 8.79, still making urine, nephrology following, lab workup pending, kidney and bladder ultrasound is ordered and pending # Hypercalcemia -Unclear if this is secondary to significant dehydration or if this could be a primary process associated with his renal failure and dehydration - Will hydrate with normal saline - Will check PTH and vitamin D - will check Phos - If no or minimal improvement can consider calcitonin and/or bisphosphonates - Will also check serum and urine protein electrophoresis given high calcium with kidney failure, high total protein and globulin, anemia and recent L1 fracture/bone pain in addition to generalized weakness - Chest x-ray also ordered to evaluate for any possible lesions -12/04: Improving with hydration, patient's Phos is high which is likely secondary to his renal failure, notably vitamin D is within normal limits at 43 and PTH is only 15. Suspect that patient's hypercalcemia is largely due to dehydration in addition to his hydrochlorothiazide in addition to multiple calcium based medications being taken daily for reflux but workup still pending. Protein electrophoresis pending and kappa lambda light chains ordered -12/05: Still slightly elevated at 11.5 but has consistently continued to improve, continue IV fluids and avoiding calcium based agents, continue to hold hydrochlorothiazide #Hyponatremia -Possibly secondary to dehydration but cannot say definitively, patient additionally on hydrochlorothiazide which will be held - Will order serum osmole's - Check urine studies - TSH - Lipid profile - Monitor I's and O's - Trend BMPs -12/04: Patient actually has elevated serum osmolality with an osmolality of 324 but no hyperglycemia or hyperlipidemia therefore suspect this is either due to his kidney failure with uremia or could possibly pseudohyponatremia due to a paraproteinemia +/- HCTZ, serum and urine protein electrophoresis pending as well as kappa lambda light chains. Notably sodium has slowly up trended to 129 with fluids and cessation of HCTZ, will continue present management while further workup underway -12/05: Sodium of 128, seems to have stabilized, do suspect that this is at least in part due to renal disease with uremia, continue to monitor, continue to hold hydrochlorothiazide # Macrocytic anemia -12/04: Patient with hemoglobin 10.7 on presentation with no previous baseline seen in our system, this a.m. hemoglobin 7.9 which is significant drop but no evidence of ongoing bleeding, suspect the patient was significantly volume depleted/dehydrated and was hemoconcentrated especially given drop in all 3 cell lines. MCV is 98.6, will be ordering B12, iron panel, folate -12/05: Hemoglobin slightly lower today, in part likely due to dilution and blood draws, 7.2 this a.m.. Folate is technically within normal limits but on the low side so we will start folic acid but B12 within normal limits, iron and iron saturation within normal limits with elevated ferritin. 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 #GERD -Continue PPI -12/04: Reportedly patient's been having significant reflux symptoms for the past year, takes omeprazole at home and has been taking nightly calcium based products for reflux, patient's reflux may be contributing to his nausea, will place on IV PPI twice daily, avoiding calcium based agents -12/05: Patient now on IV PPI every 12, avoiding calcium based agents, symptoms significantly improved #Hypertension -Will be holding valsartan/hydrochlorothiazide due to the above -12/04: Continue to hold valsartan/hydrochlorothiazide and monitor blood pressure, can consider alternative agent if necessary but will be careful to avoid hypotension -12/05: Hydralazine as needed if needed, continue to hold ARB and HCTZ #L1 compression fracture - Patient scheduled for kyphoplasty Thursday - Denies taking any NSAIDs or pain medications - Supportive care -12/04: Continue pain control and supportive care -12/05: Did advise to cancel kyphoplasty appointment given patient still in the hospital and to hold off on rescheduling until we have more answers and a better idea of discharge #Type 2 diabetes mellitus -Glucose checks and sliding scale insulin - Had somewhat low glucose of 59 on presentation - Will decrease long-acting insulin - Holding sitagliptin and metformin -12/04: Glucose has actually remained low, will discontinue long-acting insulin altogether -12/05: Glucose has been more stable overnight, continue to hold long-acting insulin Chronic medical problems and/or problems not being actively addressed during today's encounter: #Hypothyroidism -Continue Synthroid #DVT ppx: SCDs Claire Mazariegos MD Time spent in the patient's overall evaluation,decision-making process, review of diagnostic data, adjustment of management, discussion with other providers, nursing nursing and ancillary staff involved in patient's care documentation, 51 Minutes Charges/Coding Visit Charges Inpatient E&M: 67152 Subs Hosp L3
[2024-12-05 09:05] VITALS: BP 146/69; PULSE 77; RESP 18; TEMP 36.3; O2SAT 96
[2024-12-05] MEDS: Lidocaine 5% Patch 1 PATCH TOPICAL (09:59)
[2024-12-05] MEDS: Senna/Docusate Sodium 1 Tablet 2 TABLET PO ×2 (09:59→21:37)
[2024-12-05] MEDS: Folic Acid 1 MG in 0.9% Normal Saline (50mL Bag) 50 ML 200 MG IV (10:01)
[2024-12-05] MEDS: Pantoprazole Sodium 40 MG in 0.9% Normal Saline (100mL MB+) 100 ML 300 MG IV ×2 (10:33→21:32)
--- NOTE | 2024-12-05 11:52 | CASEMGMT ---
BUCK SHETTY Assessment Face to Face with patient for initial transition planning/care coordination assessment. BUCK SHETTY introduced self and role at [facility], pt voices understanding. Pt is A&Ox4 and is resting comfortably in the chair and is calm. Pt's at the bedside. Care providers, pharmacy, and demographics verified. Admitting dx: Acute Kidney Failure LACE Strata: 3 PCP: Kevin Flaherty Specialists: Myesha. Pt reports that he was scheduled for a kyphoplasty today but that it has to get rescheduled due to admission. Pt's states that she has already contacted their office Preferred Pharmacy: [facility] Insurance: [facility] Prescription Benefit: Yes LNOK: Crystal (W), Theresa (Daughter) Living Arrangements: Pt lives with his in a 1.5 story home with a FFSU and 1 step to enter ADLs/IADLs: Pt reports that he is indep Transportation: Self, DME: functioning BGM with sufficient testing supplies including lancets, test strips, and EtOH swabs.?Pen needles. WC, cane, FWW, walk in shower, shower chair, grab bars, BP Machine, Pulse ox, RTS, thermometer HHC/SNF: Denies hx or needs Pt?s goal: Home Plan: Home with once medically ready, follow nephrology consult for potential dialysis needs. Otherwise, pt states that he feels safe returning home with his once medically cleared and states that he plans to follow up with Dr Brunner as an OP. Pt denies the need for HHC or OP Tx at this time. Pt denies further questions or concerns. Report given to ACCOUNTANT CONTROLLER CM. Kike Mcpherson RN, CM
--- NOTE | 2024-12-05 12:41 | PCM.PN.REN ---
Subjective Subjective Sitting in chair at bedside. No overnight events. States nausea improved. Denies any diarrhea. at bedside. Objective Data Objective Data Vital Signs: Vital Signs Temp Pulse Resp BP Pulse Ox O2 Del Method 97.3 F L 77 18 146/69 H 96 Room Air 12/05/24 09:05 12/05/24 09:05 12/05/24 09:05 12/05/24 09:05 12/05/24 09:05 12/05/24 09:05 Oxygen Delivery Method Room Air Weight: 76.9 kg Body Mass Index (BMI) 23.0 Intake & Output: Intake and Output for Last 24 Hours 12/03/24 12/04/24 12/05/24 23:59 23:59 23:59 Intake Total 2240 / 2240 2390 / 2390 1613.95 / 1613.95 Output Total 800 / 800 1525 / 1525 900 / 900 Balance 1440 / 1440 865 / 865 713.95 / 713.95 Medical Nutrition Assessment Dietitian: Malnutrition Criteria Met Start: 12/04/24 12:12 Freq: Status: Active Protocol: Document 12/04/24 12:12 SLA (Rec: 12/04/24 12:13 SLA 10..25.7) Nutrition Malnutrition Evidence of Yes Malnutrition Exists Malnutrition (severe Acute Illness/Injury ): Evidenced By Suboptimal Energy Intake (Severe),Weight Loss (Severe) Clinical Problem Acute Disease or Injury Related Malnutrition Etiology related to 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 Status Active Problem Recommendation Dietitian Will liberalize diet to Regular w/ glucerna shake tid Recommendations/ at meals - once po intake improves, can adjust to carb Changes controlled diet if indicated. Will continue to follow and monitor for changes in pt nutritional status and make additional rec as indicate. Lab / Micro Data 12/05/24 05:04 12/05/24 05:04 Labs: Laboratory Results - last 24 hr 12/04/24 12:42: POC Glucose 81 12/04/24 17:24: POC Glucose 104 12/04/24 21:10: POC Glucose 132 H 12/05/24 05:04: WBC 5.3, RBC 2.03 L, Hgb 7.3 L, Hct 20.6 L, MCV 101.5 H, MCH 36.0 H, MCHC 35.4, RDW Std Deviation 42.8, RDW Coeff of Scotty 11.6, Plt Count 122 L, MPV 10.3, Sodium 128 L, Potassium 4.1, Chloride 95 L, Carbon Dioxide 19.1 L, Anion Gap 14, BUN 107 H*, Creatinine 8.79 H*, Estim Creat Clear Calc 6.93 L*, Est GFR (MDRD) Non-Af 6 L, BUN/Creatinine Ratio 12.2, Glucose 128 H, Calcium 11.5 H, Iron 84, TIBC 188 L, Iron Saturation 44.7, Unsaturated IBC 104 L, Ferritin 453 H, Vitamin B12 456, Serum Folate 6.03 12/05/24 06:01: POC Glucose 118 H 12/05/24 11:23: POC Glucose 164 H Micro: Microbiology 12/03/24 20:38 Urine, Catheterized Urine Culture - Preliminary Culture exhibits no growth. Radiography Diagnostic Testing: Radiology Impression Renal Ultrasound 12/05/24 07:00 IMPRESSION: No acute abnormality. No obstruction Reading Location: [facility] Physical Exam Narrative Alert awake oriented x 3 no obvious distress no JVD s1s2 no murmurs lungs clear abdomen soft, nontender no edema Monterroso with clear yellow urine in bag and tubing Assessment & Plan Assessment/Plan (1) Hypercalcemia: (2) Acute renal failure: PLAN: Baseline creatinine as of beginning of this year was around 1.4 or so. Admission creatinine more than 9. Monterroso indwelling without much urine output. Renal ultrasound pending Associated hypercalcemia recent spine related issues. Will check serum protein electrophoresis, kappa, lambda light chain assay. I will also send other serologies. He also takes Tums 1 a day due to acid reflux. I am not sure if that is the cause of hypercalcemia as well. So far PTH is suppressed. Continue IV fluids for now. If no significant recovery, may need a kidney biopsy. dw hospitalist 12/05/2024; SCr 8.56 on admission--> SCr 8.79 mg/dL today. Potassium and bicarb acceptable. Calcium 14.6 on admission, 11.5 today (continue holding valsartan/hydrochlorothiazide). Patient on IV fluids. Renal serologies pending. Urine output around 1.5 L yesterday (patient has Monterroso). Blood pressures acceptable. Though urine output has picked up renal function is slowly worsening and reviewed that with patient and his today. Reviewed with them that patient is quite possibly heading towards needing renal replacement therapy. Risks and benefits of dialysis explained. Dialysis in inpatient setting and outpatient setting also explained. Questions were answered. Patient is in agreement with moving forward with renal placement therapy. There is no urgent need for renal placement therapy today as potassium and bicarb acceptable and volume status appears compensated. He did state he would like to see how his labs look tomorrow but in agreement with starting hemodialysis if necessary. Recommend surgery consult for hemodialysis catheter placement. Discussed nephrology plan with patient and . Discussed nephrology plan with Dr. Mazariegos. Labs ordered for morning. Assessment and plan reviewed with Dr. Harding
--- NOTE | 2024-12-05 15:35 | CASEMGMT ---
BUCK SHETTY updated by nephrology that patient will need outpatient HD setup for DEANGELO. BUCK SHETTY in to discuss outpatient HD setup with patient. Patient states he prefers [facility]. Patient had no further questions or concerns. BUCK SHETTY made referral to [facility] via referral portal. CM will continue to follow this patient and plan for a safe discharge.
[2024-12-05 15:50] VITALS: BP 167/80; PULSE 90; RESP 18; TEMP 36.8; O2SAT 95
--- NOTE | 2024-12-05 19:11 | EX.PCM.CON.S ---
Assessment & Plan Assessment/Plan (1) Acute renal failure: PLAN: Patient 83-year-old male who presents with acute renal failure and has not experienced renal function recovery despite careful resuscitative measures so he is recommended to start hemodialysis per nephrology. I clearly described the procedure and my intent to proceed with a right internal jugular approach given his dominant hand is his right side and should he require a fistula we would minimize the risk for central venous stenosis for a left upper extremity fistula. He confirms understanding and denies further questions. He should be held n.p.o. past midnight in anticipation of this procedure tomorrow 12/06/2024. Consents to be obtained for ultrasound-guided right possible left internal jugular tunneled hemodialysis catheter insertion. Henry Evans MD General Surgery Endocrine Surgery Pager: [facility] [address] [place] [address], [address] [place] [address] Office: [phone] HPI Consult Data Date of Consult: 12/05/24 HPI Narrative Reason for Consultation: Insertion of tunneled hemodialysis catheter HPI Narrative: LINA ORTA, is a 83 M who presented to [facility] on 12/03/2024 with complaints of nausea and vomiting. He is admitted to the hospital after he was found to have evidence of a severe acute kidney injury/acute renal failure. His , who accompanies him at bedside, provides some the history. Together they share a history of a lumbar compression fracture that was due for kyphoplasty today (obviously put on hold on account of his current admission). They state that he has had ongoing pain and nausea/vomiting. He also shared that he was taking both Gaviscon and Tums for GERD at the direction of their PCP and on intake his calcium was exceptionally high. They make mention of ruling out a possible bowel blockage and going on laxatives just prior to admission as well. Through this period of feeling unwell he admits that he did not stay particularly well-hydrated but does report that he has been urinating at home. He expresses surprise that he is having renal trouble as his creatinine was 1.3 at the beginning of the year. [facility] Medical History (Updated 12/04/24 @ 12:[address] Claire Mazariegos MD) CKD (chronic kidney disease) stage 1, GFR 90 ml/min or greater Trigger finger of right hand Apical variant hypertrophic cardiomyopathy HLD (hyperlipidemia) Shingles (herpes zoster) polyneuropathy Acute urticaria GERD (gastroesophageal reflux disease) Hypothyroidism Home Medications ?Medication ?Instructions ?Recorded ?Last Taken ?Type blood sugar diagnostic (True #100 ea 02/11/23 Unknown Rx Metrix Glucose Test Strip) blood-glucose meter #1 ea 02/11/23 Unknown Rx atorvastatin 20 mg tablet 20 mg PO QDAY #90 tabs 09/29/24 12/02/24 Rx lancets 30 gauge (Unilet Lancets) #100 ea 09/29/24 Unknown Rx levothyroxine 100 mcg tablet 100 mcg PO DAILY #100 tabs 09/29/24 12/03/24 Rx metformin 500 mg tablet,extended 500 mg PO BID #180 tabs 09/29/24 12/03/24 10:00 Rx release 24 hr omeprazole 20 mg capsule,delayed 20 mg PO DAILY #100 caps 09/29/24 12/03/24 Rx release pen needle, diabetic 29 gauge x #100 ea 09/29/24 Unknown Rx 1/2 (CareFine Pen Needle) sitagliptin phosphate 100 mg 100 mg PO DAILY #100 tabs 09/29/24 12/03/24 Rx tablet (Januvia) valsartan 160 1 tab PO DAILY #90 TABLETS 09/29/24 12/03/24 Rx mg-hydrochlorothiazide 12.5 mg tablet ondansetron 4 mg disintegrating 4 mg PO Q8H PRN nausea and 11/29/24 12/02/24 Rx tablet vomiting #14 tabs insulin glargine 100 unit/mL (3 21 unit subcut QHS 12/03/24 12/02/24 History mL) subcutaneous pen (Lantus Solostar U-100 Insulin) magnesium 250 mg tablet 250 mg PO QHS 12/03/24 12/02/24 History Allergy/AdvReac Type Severity Reaction Status Date / Time meloxicam (From Mobic) Allergy Severe unknown Verified 12/03/24 14:09 pentazocine (From Talwin) Allergy Severe unknown Verified 12/03/24 14:09 metaxalone AdvReac Intermediate Nausea Verified 12/03/24 14:09 Family History Father Heart disease Mother CVA (cerebral vascular accident) Hypertension Breast cancer Surgical History History of back surgery History of left knee surgery History of appendectomy History of cardiac cath Social History Smoking Status: Never smoker how long ago did patient quit smokin alcohol intake: never Physical Exam Const alert, oriented x3 and no apparent distress Chest Chest Narrative: No rashes, scars, eruptions, or other signs of skin infections. 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 Status Active Problem Recommendation Dietitian Will liberalize diet to Regular w/ glucerna shake tid Recommendations/ at meals - once po intake improves, can adjust to carb Changes controlled diet if indicated. Will continue to follow and monitor for changes in pt nutritional status and make additional rec as indicate. Lab / Micro Data 12/05/24 05:04 12/05/24 05:04 Labs: Laboratory Results - last 24 hr 12/04/24 21:10: POC Glucose 132 H 12/05/24 05:04: WBC 5.3, RBC 2.03 L, Hgb 7.3 L, Hct 20.6 L, MCV 101.5 H, MCH 36.0 H, MCHC 35.4, RDW Std Deviation 42.8, RDW Coeff of Scotty 11.6, Plt Count 122 L, MPV 10.3, Sodium 128 L, Potassium 4.1, Chloride 95 L, Carbon Dioxide 19.1 L, Anion Gap 14, BUN 107 H*, Creatinine 8.79 H*, Estim Creat Clear Calc 6.93 L*, Est GFR (MDRD) Non-Af 6 L, BUN/Creatinine Ratio 12.2, Glucose 128 H, Calcium 11.5 H, Iron 84, TIBC 188 L, Iron Saturation 44.7, Unsaturated IBC 104 L, Ferritin 453 H, Vitamin B12 456, Serum Folate 6.03 12/05/24 06:01: POC Glucose 118 H 12/05/24 11:23: POC Glucose 164 H 12/05/24 16:24: POC Glucose 211 H Micro: Microbiology 12/03/24 20:38 Urine, Catheterized Urine Culture - Preliminary Culture exhibits no growth. Imaging Radiology Impression Renal Ultrasound 12/05/24 07:00 IMPRESSION: No acute abnormality. No obstruction Reading Location: [id number] Charges/Coding Visit Charges Inpatient E&M: 01279 Init Hosp L2
[2024-12-05 19:55] VITALS: BMI 25.1
[2024-12-05 20:41] VITALS: BP 171/78; PULSE 88; RESP 18; TEMP 36.4; O2SAT 97
[2024-12-06] VITALS (16 sets, daily range): BP systolic 109–181; BP diastolic 54–87; PULSE 80–114; RESP 16–18; TEMP 36.4–36.9; O2SAT 84–100; BMI 25.1
[2024-12-06] MEDS: 0.9% Saline Lock 10 ML Syringe IV ×2 (01:45→21:18)
[2024-12-06] MEDS: Albuterol 2.5 MG/3 ML VIAL.NEB. INHALATION ×3 (05:29→20:09)
[2024-12-06 05:32] LABS: Hematocrit 21.7 % (40-54); Hemoglobin 7.7 g/dL (13.0-16.5); Immature Granulocytes Count 0.030 X10^3/uL (0.0-0.0); Mean Corp Hgb Conc 35.5 g/dL (32-36); Mean Corpuscular Volume 100.9 fL (80-94); Mean Platelet Vol. 10.2 fl (6.2-12.0); NRBC Flagged by Analyzer 0 % (0-5); Platelet Count 134 K/mm3 (150-450); RBC Distribution Width CV 11.4 % (11.6-14.6); RBC Distribution Width SD 42.2 fl (35.1-43.9); Red Blood Count 2.15 M/mm3 (4.6-6.2); White Blood Count 5.9 K/mm3 (4.4-11.0)
--- NOTE | 2024-12-06 05:55 | EKG12_ITS ---
Test Reason : AM EKG Blood Pressure : */* mmHG Vent. Rate : 89 BPM Atrial Rate : 89 BPM P-R Int : 160 ms QRS Dur : 96 ms QT Int : 328 ms P-R-T Axes : 62 17 167 degrees QTcB Int : 399 ms Normal sinus rhythm [address] & T wave abnormality, consider lateral ischemia Abnormal ECG When compared with ECG of 02-Jul-2011 05:17, Nonspecific T wave abnormality has replaced inverted T waves in Inferior leads T wave inversion less evident in Anterolateral leads Confirmed by ALFREDITO SHIELDS, CAROL ([id number]), fan mail editor MABEL LARRY ([id number]) on 12/06/2024 1:47:57 PM Referred By: Confirmed By: CAROL GLASER MD
[2024-12-06] MEDS: 0.9% Normal Saline (1000mL) 1,000 ML 75 ML IV (06:13)
[2024-12-06 06:35] LABS: Anion Gap 14 (5-15); BUN 104 mg/dL (4-19); BUN/Creat Ratio 12.2 RATIO (10-20); Calcium,Total 10.9 mg/dL (7.6-11.0); Carbon Dioxide 20.0 mmol/L (21.0-32.0); Chloride 95 mmol/L (98-108); Estimated Creatinine Clearance 7.23 ml/min (50-250); Glucose 132 mg/dL (70-99); Potassium 4.2 mmol/L (3.3-5.1)
--- NOTE | 2024-12-06 08:25 | PN.SURG_ITS ---
Subjective Subjective Patient evaluated resting comfortably in bed. He denies any questions or concerns about today's tunneled dialysis catheter procedure. Objective Data Objective Data Vital Signs: Vital Signs Temp Pulse Resp BP Pulse Ox O2 Del Method O2 Flow Rate 98.0 F 90 18 170/80 H 95 Nasal Cannula 2.5 12/06/24 04:51 12/06/24 07:40 12/06/24 05:30 12/06/24 04:51 12/06/24 05:30 12/06/24 05:30 12/06/24 05:30 Oxygen Flow Rate (L/min) 2.5 Oxygen Delivery Method Nasal Cannula Weight: 185 lb 6.54 oz Body Mass Index (BMI) 25.1 Intake & Output: Intake and Output for Last 24 Hours 12/04/24 12/05/24 12/06/24 23:59 23:59 23:59 Intake Total 2390 / 2390 2953.95 / 2953.95 1000 / 1000 Output Total 1525 / 1525 1200 / 1600 400 / 400 Balance 865 / 865 1753.95 / 1353.95 600 / 600 Medical Nutrition Assessment Dietitian: Malnutrition Criteria Met Start: 12/04/24 12:12 Freq: Status: Active Protocol: Document 12/04/24 12:12 SLA (Rec: 12/04/24 12:13 SLA 10..25.7) Nutrition Malnutrition Evidence of Yes Malnutrition Exists Malnutrition (severe Acute Illness/Injury ): Evidenced By Suboptimal Energy Intake (Severe),Weight Loss (Severe) Clinical Problem Acute Disease or Injury Related Malnutrition Etiology related to 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 Status Active Problem Recommendation Dietitian Will liberalize diet to Regular w/ glucerna shake tid Recommendations/ at meals - once po intake improves, can adjust to carb Changes controlled diet if indicated. Will continue to follow and monitor for changes in pt nutritional status and make additional rec as indicate. Lab / Micro Data 12/06/24 04:35 12/06/24 04:35 Labs: Laboratory Results - last 24 hr 12/05/24 11:23: POC Glucose 164 H 12/05/24 16:24: POC Glucose 211 H 12/05/24 21:31: POC Glucose 141 H 12/06/24 04:35: WBC 5.9, RBC 2.15 L, Hgb 7.7 L, Hct 21.7 L, MCV 100.9 H, MCH 35.8 H, MCHC 35.5, RDW Std Deviation 42.2, RDW Coeff of Scotty 11.4 L, Plt Count 134 L, MPV 10.2, Immature Gran % (Auto) 0.500, Neut % (Auto) 76.0 H, Lymph % (Auto) 13.2 L, [place] % (Auto) 9.1, Eos % (Auto) 1.2, Baso % (Auto) 0.0, Absolute Neuts (auto) 4.5, Absolute Lymphs (auto) 0.78 L, Nucleated RBC % 0, Sodium 129 L , Potassium 4.2, Chloride 95 L, Carbon Dioxide 20.0 L, Anion Gap 14, BUN 104 H*, Creatinine 8.50 H*, Estim Creat Clear Calc 7.23 L*, Est GFR (MDRD) Non-Af 6 L, BUN/Creatinine Ratio 12.2, Glucose 132 H, Hemoglobin A1c 6.4 H, Calcium 10.9 12/06/24 06:16: POC Glucose 123 H Micro: Microbiology 12/03/24 20:38 Urine, Catheterized Urine Culture - Preliminary Culture exhibits no growth. Radiography Diagnostic Testing: Radiology Impression Renal Ultrasound 12/05/24 07:00 IMPRESSION: No acute abnormality. No obstruction Reading Location: [facility] Assessment & Plan Assessment/Plan (1) Acute renal failure: PLAN: I am following this patient in conjunction with Dr. Evans. He has independently evaluated this patient. Labs reviewed Plan for a right possible left tunneled dialysis catheter placement later this afternoon We will continue to monitor this patient Charges/Coding Visit Charges Inpatient E&M: 86553 [facility] Hosp L1
--- NOTE | 2024-12-06 09:47 | PCM.PN.HOSP ---
Reason for Visit Chief Complaint: N/V, generalized weakness Subjective Subjective General short of breath overnight was wheezing improved with albuterol, has not had another bowel movement but will be getting a stool softener later, nausea still much better Objective Data Objective Data Vital Signs: Vital Signs Temp Pulse Resp BP Pulse Ox O2 Del Method O2 Flow Rate 98.0 F 90 18 170/80 H 95 Nasal Cannula 2.5 12/06/24 04:51 12/06/24 07:40 12/06/24 05:30 12/06/24 04:51 12/06/24 05:30 12/06/24 05:30 12/06/24 05:30 Oxygen Flow Rate (L/min) 2.5 Oxygen Delivery Method Nasal Cannula Weight: 84.1 kg Body Mass Index (BMI) 25.1 Intake & Output: Intake and Output for Last 24 Hours 12/04/24 12/05/24 12/06/24 23:59 23:59 23:59 Intake Total 2390 / 2390 2953.95 / 2953.95 1000 / 1000 Output Total 1525 / 1525 1200 / 1600 400 / 400 Balance 865 / 865 1753.95 / 1353.95 600 / 600 Medical Nutrition Assessment Dietitian: Malnutrition Criteria Met Start: 12/04/24 12:12 Freq: Status: Active Protocol: Document 12/04/24 12:12 SLA (Rec: 12/04/24 12:13 SLA ...7) Nutrition Malnutrition Evidence of Yes Malnutrition Exists Malnutrition (severe Acute Illness/Injury ): Evidenced By Suboptimal Energy Intake (Severe),Weight Loss (Severe) Clinical Problem Acute Disease or Injury Related Malnutrition Etiology 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 Status Active Problem Recommendation Dietitian Will liberalize diet to Regular w/ glucerna shake tid Recommendations/ at meals - once po intake improves, can adjust to carb Changes controlled diet if indicated. Will continue to follow and monitor for changes in pt nutritional status and make additional rec as indicate. Lab / Micro Data 12/06/24 04:35 12/06/24 04:35 Labs: Laboratory Results - last 24 hr 12/05/24 11:23: POC Glucose 164 H 12/05/24 16:24: POC Glucose 211 H 12/05/24 21:31: POC Glucose 141 H 12/06/24 04:35: WBC 5.9, RBC 2.15 L, Hgb 7.7 L, Hct 21.7 L, MCV 100.9 H, MCH 35.8 H, MCHC 35.5, RDW Std Deviation 42.2, RDW Coeff of Scotty 11.4 L, Plt Count 134 L, MPV 10.2, Immature Gran % (Auto) 0.500, Neut % (Auto) 76.0 H, Lymph % (Auto) 13.2 L, [place] % (Auto) 9.1, Eos % (Auto) 1.2, Baso % (Auto) 0.0, Absolute Neuts (auto) 4.5, Absolute Lymphs (auto) 0.78 L, Nucleated RBC % 0, Sodium 129 L, Potassium 4.2, Chloride 95 L, Carbon Dioxide 20.0 L, Anion Gap 14, BUN 104 H*, Creatinine 8.50 H*, Estim Creat Clear Calc 7.23 L*, Est GFR (MDRD) Non-Af 6 L, BUN/Creatinine Ratio 12.2, Glucose 132 H, Hemoglobin A1c 6.4 H, Calcium 10.9 12/06/24 06:16: POC Glucose 123 H Micro: Microbiology 12/03/24 20:38 Urine, Catheterized Urine Culture - Final Culture exhibits no growth. Physical Exam Narrative General: Awake and alert, answering questions appropriately HEENT: Atraumatic, normocephalic Eyes: Anicteric, normal conjunctiva, extraocular movements grossly intact Neck: Supple Respiratory: No overt wheezes, rhonchi, crackles on exam, normal respiratory effort Cardiovascular: Regular rate GI: Soft, nontender Extremities: No edema Musculoskeletal: Moving all extremities Neuro: No overt focal neurological deficits Skin: No rashes appreciated Psych: Cooperative Assessment & Plan Assessment/Plan (1) Acute renal failure: PLAN: Plan #Acute kidney failure -Patient with a creatinine around 1.5 at baseline with most recent value 9 months ago being 1.5 to - Presenting now with a creatinine of 8.56 - Bicarb 19.5 - Patient not hyperkalemic - Vitally stable and not volume overloaded - Patient alert, no seizure activity, confusion, altered mental status - Presently does not seem to have any indications for emergent dialysis - Suspect that patient's nausea and vomiting with very poor p.o. intake on top of continuing to take his valsartan/hydrochlorothiazide caused or largely contributed to his worsening renal failure - Patient reportedly had been urinating at home and even urinated this morning however in the ED unable to urinate and has 280 on bladder scan - Unclear if there has been an obstructive component to this as well given patient's report of urinating okay prior to coming in - Will have Monterroso catheter placed given patient reporting he is unable to urinate in the ED and bladder scan shows 280 - IV fluids - Will check UA given reports of suprapubic discomfort - Check urine studies - Kidney and bladder ultrasound -Check CK - Discussed with nephrology, nephrology consult placed -12/04: Despite sodium and calcium improving, kidney function has remained about the same, BUN this a.m. 112 with a creatinine of 8.49. UA with protein and occult blood, rare bacteria and does not seem UA is indicative of infection. FEUrea is 61.8 suggesting intrinsic renal disease. SPEP and UPEP pending, nephrology consulted, kidney and bladder ultrasound ordered, Monterroso catheter in place, patient has had 1300 output since admission yesterday evening. Cobre lambda light chains ordered in addition to protein electrophoresis. Discussed with nephrology. -12/05: BUN 107 with a creatinine slightly worse of 8.79, still making urine, nephrology following, lab workup pending, kidney and bladder ultrasound is ordered and pending -12/06: Kidney and bladder ultrasound normal, kidney function virtually unchanged since presentation, patient for tunneled dialysis catheter today per nephrology recommendation to begin dialysis, discussed with nephrology, patient also for kidney biopsy tomorrow # Hypercalcemia -Unclear if this is secondary to significant dehydration or if this could be a primary process associated with his renal failure and dehydration - Will hydrate with normal saline - Will check PTH and vitamin D - will check Phos - If no or minimal improvement can consider calcitonin and/or bisphosphonates - Will also check serum and urine protein electrophoresis given high calcium with kidney failure, high total protein and globulin, anemia and recent L1 fracture/bone pain in addition to generalized weakness - Chest x-ray also ordered to evaluate for any possible lesions -12/04: Improving with hydration, patient's Phos is high which is likely secondary to his renal failure, notably vitamin D is within normal limits at 43 and PTH is only 15. Suspect that patient's hypercalcemia is largely due to dehydration in addition to his hydrochlorothiazide in addition to multiple calcium based medications being taken daily for reflux but workup still pending. Protein electrophoresis pending and kappa lambda light chains ordered -12/05: Still slightly elevated at 11.5 but has consistently continued to improve, continue IV fluids and avoiding calcium based agents, continue to hold hydrochlorothiazide -12/06: Calcium within normal limits today #Hyponatremia -Possibly secondary to dehydration but cannot say definitively, patient additionally on hydrochlorothiazide which will be held - Will order serum osmole's - Check urine studies - TSH - Lipid profile - Monitor I's and O's - Trend BMPs -12/04: Patient actually has elevated serum osmolality with an osmolality of 324 but no hyperglycemia or hyperlipidemia therefore suspect this is either due to his kidney failure with uremia or could possibly pseudohyponatremia due to a paraproteinemia +/- HCTZ, serum and urine protein electrophoresis pending as well as kappa lambda light chains. Notably sodium has slowly up trended to 129 with fluids and cessation of HCTZ, will continue present management while further workup underway -12/05: Sodium of 128, seems to have stabilized, do suspect that this is at least in part due to renal disease with uremia, continue to monitor, continue to hold hydrochlorothiazide -12/06: Hyponatremia continues to remain stable with a sodium of 129, will not resume hydrochlorothiazide on discharge # Macrocytic anemia -12/04: Patient with hemoglobin 10.7 on presentation with no previous baseline seen in our system, this a.m. hemoglobin 7.9 which is significant drop but no evidence of ongoing bleeding, suspect the patient was significantly volume depleted/dehydrated and was hemoconcentrated especially given drop in all 3 cell lines. MCV is 98.6, will be ordering B12, iron panel, folate -12/05: Hemoglobin slightly lower today, in part likely due to dilution and blood draws, 7.2 this a.m.. Folate is technically within normal limits but on the low side so we will start folic acid but B12 within normal limits, iron and iron saturation within normal limits with elevated ferritin. 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 -12/06: Hemoglobin actually up to 7.7 today, continue to monitor #GERD -Continue PPI -12/04: Reportedly patient's been having significant reflux symptoms for the past year, takes omeprazole at home and has been taking nightly calcium based products for reflux, patient's reflux may be contributing to his nausea, will place on IV PPI twice daily, avoiding calcium based agents -12/05: Patient now on IV PPI every 12, avoiding calcium based agents, symptoms significantly improved -12/06: Doing very well on twice daily PPI, will likely need this on discharge #Hypertension -Will be holding valsartan/hydrochlorothiazide due to the above -12/04: Continue to hold valsartan/hydrochlorothiazide and monitor blood pressure, can consider alternative agent if necessary but will be careful to avoid hypotension -12/05: Hydralazine as needed if needed, continue to hold ARB and HCTZ -12/06: Patient on hydralazine as needed, would likely need to begin antihypertensive, will plan to do this after patient's procedure pending blood pressures #L1 compression fracture - Patient scheduled for kyphoplasty Thursday - Denies taking any NSAIDs or pain medications - Supportive care -12/04: Continue pain control and supportive care -12/05: Did advise to cancel kyphoplasty appointment given patient still in the hospital and to hold off on rescheduling until we have more answers and a better idea of discharge -12/06: Will need follow-up with pain management upon discharge #Type 2 diabetes mellitus -Glucose checks and sliding scale insulin - Had somewhat low glucose of 59 on presentation - Will decrease long-acting insulin - Holding sitagliptin and metformin -12/04: Glucose has actually remained low, will discontinue long-acting insulin altogether -12/05: Glucose has been more stable overnight, continue to hold long-acting insulin -12/06: Glucose 123 this a.m., hemoglobin A1c 6.4, will need to decrease patient's insulin regimen significantly on discharge to avoid hypoglycemia Chronic medical problems and/or problems not being actively addressed during today's encounter: #Hypothyroidism -Continue Synthroid #DVT ppx: SCDs Claire Mazariegos MD Charges/Coding Visit Charges Inpatient E&M: 78056 [facility]s Hosp L2
[2024-12-06] MEDS: Pantoprazole Sodium 40 MG in 0.9% Normal Saline (100mL MB+) 100 ML 300 MG IV ×2 (10:31→21:15)
[2024-12-06] MEDS: Lidocaine 5% Patch 1 PATCH TOPICAL ×2 (10:32→10:42)
[2024-12-06] MEDS: Folic Acid 1 MG in 0.9% Normal Saline (50mL Bag) 50 ML 200 MG IV (11:00)
--- NOTE | 2024-12-06 11:01 | PN.RENAL_ITS ---
Subjective Subjective Patient developed some wheezing overnight now on O2 via nasal cannula. States breathing improved once he had breathing treatments. No other complaints. Objective Data Objective Data Vital Signs: Vital Signs Temp Pulse Resp BP Pulse Ox O2 Del Method O2 Flow Rate 98.4 F 96 18 181/87 H 95 Nasal Cannula 2 12/06/24 10:48 12/06/24 10:48 12/06/24 10:48 12/06/24 10:48 12/06/24 10:48 12/06/24 10:48 12/06/24 10:48 Oxygen Flow Rate (L/min) 2 Oxygen Delivery Method Nasal Cannula Weight: 84.1 kg Body Mass Index (BMI) 25.1 Intake & Output: Intake and Output for Last 24 Hours 12/04/24 12/05/24 12/06/24 23:59 23:59 23:59 Intake Total 2390 / 2390 2953.95 / 2953.95 1000 / 1000 Output Total 1525 / 1525 1200 / 1600 400 / 400 Balance 865 / 865 1753.95 / 1353.95 600 / 600 Medical Nutrition Assessment Dietitian: Malnutrition Criteria Met Start: 12/04/24 12:12 Freq: Status: Active Protocol: Document 12/04/24 12:12 SLA (Rec: 12/04/24 12:13 SLA 10..25.7) Nutrition Malnutrition Evidence of Yes Malnutrition Exists Malnutrition (severe Acute Illness/Injury ): Evidenced By Suboptimal Energy Intake (Severe),Weight Loss (Severe) Clinical Problem Acute Disease or Injury Related Malnutrition Etiology related to issues 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 Status Active Problem Recommendation Dietitian Will liberalize diet to Regular w/ glucerna shake tid Recommendations/ at meals - once po intake improves, can adjust to carb Changes controlled diet if indicated. Will continue to follow and monitor for changes in pt nutritional status and make additional rec as indicate. Lab / Micro Data 12/06/24 04:35 12/06/24 04:35 Labs: Laboratory Results - last 24 hr 12/05/24 11:23: POC Glucose 164 H 12/05/24 16:24: POC Glucose 211 H 12/05/24 21:31: POC Glucose 141 H 12/06/24 04:35: WBC 5.9, RBC 2.15 L, Hgb 7.7 L, Hct 21.7 L, MCV 100.9 H, MCH 35.8 H, MCHC 35.5, RDW Std Deviation 42.2, RDW Coeff of Scotty 11.4 L, Plt Count 134 L, MPV 10.2, Immature Gran % (Auto) 0.500, Neut % (Auto) 76.0 H, Lymph % (Auto) 13.2 L, [place] % (Auto) 9.1, Eos % (Auto) 1.2, Baso % (Auto) 0.0, Absolute Neuts (auto) 4.5, Absolute Lymphs (auto) 0.78 L, Nucleated RBC % 0, Sodium 129 L , Potassium 4.2, Chloride 95 L, Carbon Dioxide 20.0 L, Anion Gap 14, BUN 104 H*, Creatinine 8.50 H*, Estim Creat Clear Calc 7.23 L*, Est GFR (MDRD) Non-Af 6 L, BUN/Creatinine Ratio 12.2, Glucose 132 H, Hemoglobin A1c 6.4 H, Calcium 10.9 12/06/24 06:16: POC Glucose 123 H Micro: Microbiology 12/03/24 20:38 Urine, Catheterized Urine Culture - Final Culture exhibits no growth. Physical Exam Narrative Alert awake oriented x 3 no obvious distress no JVD s1s2 no murmurs Diminished breath sounds with faint expiratory wheezing. On O2 via nasal cannula abdomen soft, nontender no edema Monterroso with clear yellow urine in bag and tubing Assessment & Plan Assessment/Plan (1) Hypercalcemia: (2) Acute renal failure: PLAN: Baseline creatinine as of beginning of this year was around 1.4 or so. Admission creatinine more than 9. Monterroso indwelling without much urine output. Renal ultrasound pending Associated hypercalcemia recent spine related issues. Will check serum protein electrophoresis, kappa, lambda light chain assay. I will also send other serologies. He also takes Tums 1 a day due to acid reflux. I am not sure if that is the cause of hypercalcemia as well. So far PTH is suppressed. Continue IV fluids for now. If no significant recovery, may need a kidney biopsy. jose hospitalist 12/05/2024; SCr 8.56 on admission--> SCr 8.79 mg/dL today. Potassium and bicarb acceptable. Calcium 14.6 on admission, 11.5 today (continue holding valsartan/hydrochlorothiazide). Patient on IV fluids. Renal serologies pending. Urine output around 1.5 L yesterday (patient has Monterroso). Blood pressures acceptable. Though urine output has picked up renal function is slowly worsening and reviewed that with patient and his today. Reviewed with them that patient is quite possibly heading towards needing renal replacement therapy. Risks and benefits of dialysis explained. Dialysis in inpatient setting and outpatient setting also explained. Questions were answered. Patient is in agreement with moving forward with renal placement therapy. There is no urgent need for renal placement therapy today as potassium and bicarb acceptable and volume status appears compensated. He did state he would like to see how his labs look tomorrow but in agreement with starting hemodialysis if necessary. Recommend surgery consult for hemodialysis catheter placement. Discussed nephrology plan with patient and . Discussed nephrology plan with Dr. Mazariegos. Labs ordered for morning. Assessment and plan reviewed with Dr. Harding 12/06/2024; serum creatinine about the same today, 8.5 mg/dL, bicarb 20, potassium 4.2. Urine output yesterday 1.2 L. Calcium 10.9 today. Overnight patient developed difficulty breathing with wheezing, now on O2 nasal cannula. Can stop IV fluids. He is to have tunneled hemodialysis catheter placed today then will plan for dialysis afterwards and attempt small amount of fluid removal as patient/blood pressure tolerates. Renal serologies are pending. Discussed with patient today about kidney biopsy, risk and benefit of biopsy. Patient is in agreement with having kidney biopsy. Will place orders. Patient is not on any blood thinners. Continue to monitor for renal recovery. Discussed with case management, arrangements underway for outpatient hemodialysis at [facility] diagnosis DEANGELO. Assessment and plan reviewed with Dr. Harding
--- NOTE | 2024-12-06 12:25 | PCM.PRE.AN2 ---
ASA Classification* ASA Classification ASA Classification: 4 Assessment & Plan Anesthesia* Anesthesia Assessment Anesthesia Assessment: Discussed sedation and/or anesthesia options, risks, benefits, and alternatives with patient/parents/legal guardian/POA. Questions invited. The patient/parents/legal guardian/POA seems to understand and agrees to proceed with anesthesia plan. Reviewed the physical assessment, medical history, allergy history and patient home medications list prior to surgery/procedure/anesthetic and documented any changes. Performed airway and anesthesia risk assessments. Anesthesia Type Anesthesia Type: MAC Anesthesia Focused Assessment* Temperature: 98.4 F Pulse Rate: 96 Blood Pressure: 181/87 Respiratory Rate: 18 Pulse Ox: 95 Oxygen Flow Rate (L/min): 2 Airway Assessment Mouth opens: >3 cm Mallampati Score: II Labs Anesthesia Preop lab: CBC WBC, (4.4-11.0) 5.9 K/mm3 Today, 04:35 RBC, (4.6-6.2) 2.15 M/mm3 L Today, 04:35 Hgb, (13.0-16.5) 7.7 g/dL L Today, 04:35 Hct, (40-54) 21.7 % L Today, 04:35 Plt Count, (150-450) 134 K/mm3 L Today, 04:35 CHEMISTRY Potassium, (3.3-5.1) 4.2 mmol/L Today, 04:35 Sodium, (133-145) 129 mmol/L L Today, 04:35 Magnesium, (1.5-2.2) 5.4 mg/dL H* 12/03/24, 14:24 Phosphorus, (2.7-4.5) 5.6 mg/dL H 12/03/24, 14:24 BUN, (4-19) 104 mg/dL H* Today, 04:35 Creatinine, (0.70-1.20) 8.50 mg/dL H* Today, 04:35 Glucose, (70-99) 132 mg/dL H Today, 04:35 POC Glucose, (74-106) 123 mg/dL H Today, 06:16 TSH, (0.300-4.200) 0.591 uIU/mL 12/03/24, 14:24 COAG Pre-Assessment Diagnosis/Proposed Procedure Planned Operative Procedure(s): Insertion hemodialysis catheter placement. 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 When Was Last Pacemaker Check QUESTION #4 FULL TEXT: You/Your Family Experience fever (hyperthermia) with Anesthesia Last Oral Intake Last Oral intake: Last Oral Intake NPO since 00:00 12/05/24 19:55 Meds taken in AM with sips of No 12/05/24 19:55 water? Meds patient instructed to take am of surgery PONV PONV - edge cutting machine operator: PONV - edge cutting machine operator Female HX of Motion Sickness HX of N/V After Surgery Non-Smoker Duration of Surgery greater than 60 minutes Number of Risk Factors PONV Score Height & Weight Height & Weight: Anesthesia: Height & Weight Height 6 ft 0.05 in 12/05/24 19:55 Weight: 84.1 kg 12/06/24 03:12 Body Mass Index (BMI) 25.1 12/06/24 03:12 Respiratory Assessment Respiratory Assessment - edge cutting machine operator: Respiratory Tract Infection Hx - edge cutting machine operator Hx Respiratory Tract Infection No 12/05/24 19:55 STOP Sleep Apnea STOP Sleep Apnea - edge cutting machine operator: STOP Sleep Apnea - edge cutting machine operator Hx Hypertension Yes 12/05/24 11:04 Hx Sleep Apnea No 12/03/24 17:47 CPAP BIPAP Do you snore loudly (louder Yes 12/03/24 17:47 than talking or can be heard Do you often feel tired/ No 12/03/24 17:47 fatigued/ sleepy during daytime? Has anyone observed you stop No 12/03/24 17:47 breathing during sleep? STOP Results Positive 12/03/24 17:47 QUESTION #5 FULL TEXT : Do you snore loudly (louder than talking or can be heard through closed doors)? 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 Specify any problems Hx of Preganancy in last 3 N/A 12/03/24 17:47 Months Nurse Filling Out Transfusion [facility] 12/03/24 17:47 & Questions: Date: 12/03/24 12/03/24 17:47 Time: 18:43 12/03/24 17:47 Patient unable to answer at this time (ie. 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 INHALATION 2.5 mg Q2H PRN PRN Administration SOB &/OR WHEEZING Atorvastatin Calcium 20 mg 12/03/24 18:00 12/05/24 21:37 Atorvastatin Calcium 20 Mg Tablet PO 20 mg QHS YAMIL Administration Glucagon 1 mg 12/03/24 17:47 Glucagon 1 Mg/Ml Syringe IM X1 PRN HYPOGLYCEMIA Protocol Hydralazine HCl 5 mg 12/03/24 17:47 Hydralazine 20 Mg/Ml Vial IV Q8H PRN PRN prn SBP >185 Protocol Dextrose 250 mls @ 0 mls/hr 12/03/24 17:47 12/04/24 13:29 Dextrose 10%-Water IV Infused .Q0M PRN Infusion HYPOGLYCEMIA Protocol As Directed Sodium Chloride 250 mls @ 15 mls/hr 12/03/24 18:33 IV .[id number] PRN Saline Flush Sodium Chloride 250 mls @ 15 mls/hr 12/03/24 18:33 IV .[id number] PRN Additional IVPB Infusion Pantoprazole Sodium 40 mg/ 100 mls @ 300 mls/hr 12/04/24 22:00 12/06/24 10:51 Sodium Chloride IV Infused Q12 YAMIL Infusion Folic Acid 1 mg/ Sodium 50.2 mls @ 200 mls/hr 12/05/24 10:00 12/06/24 11:16 Chloride IV Infused DAILY YAMIL Infusion Desmopressin Acetate 20 mcg/ 55 mls @ 200 mls/hr 12/06/24 11:56 Sodium Chloride IV 12/06/24 12:12 X1 ONE Sodium Chloride 500 mls @ 0 mls/hr 12/06/24 12:15 IV .Q0M YAMIL KVO Insulin Human Lispro 0 unit 12/03/24 22:00 12/06/24 12:24 Insulin Lispro 100 Unit/Ml Insuln.Pen SC Not Given ACHS [facility] Protocol Levothyroxine Sodium 100 mcg 12/04/24 06:00 12/06/24 05:00 Levothyroxine 100 Mcg Tablet PO Not Given DAILY@0600 [facility] Lidocaine 1 patch 12/04/24 10:00 12/06/24 10:42 Lidocaine 5% Patch TOPICAL 1 patch DAILY YAMIL Administration Protocol Melatonin 10 mg 12/03/24 17:47 12/04/24 23:31 Melatonin 10 Mg Tablet PO 10 mg QHS PRN PRN Administration INSOMNIA Ondansetron HCl 4 mg 12/04/24 12:50 12/06/24 01:45 Ondansetron 4 Mg/2 Ml Vial IV 4 mg Q4H PRN PRN Administration NAUSEA/VOMITING Senna/Docusate Sodium 2 tablet 12/03/24 22:00 12/06/24 10:33 Senna/Docusate Sodium 1 Tablet PO Not Given BID YAMIL Sodium Chloride 10 - 40 ml 12/03/24 18:33 12/06/24 01:45 0.9% Saline Lock 10 Ml Syringe IV 10 ml UD PRN Administration SALINE FLUSH [facility] Medical History CKD (chronic kidney disease) stage 1, GFR 90 ml/min or greater Trigger finger of right hand Apical variant hypertrophic cardiomyopathy HLD (hyperlipidemia) Shingles (herpes zoster) polyneuropathy Acute urticaria GERD (gastroesophageal reflux disease) Hypothyroidism Home Medications ?Medication ?Instructions ?Recorded ?Last Taken ?Type blood sugar diagnostic (True #100 ea 02/11/23 Unknown Rx Metrix Glucose Test Strip) blood-glucose meter #1 ea 02/11/23 Unknown Rx atorvastatin 20 mg tablet 20 mg PO QDAY #90 tabs 09/29/24 12/02/24 Rx lancets 30 gauge (Unilet Lancets) #100 ea 09/29/24 Unknown Rx levothyroxine 100 mcg tablet 100 mcg PO DAILY #100 tabs 09/29/24 12/03/24 Rx metformin 500 mg tablet,extended 500 mg PO BID #180 tabs 09/29/24 12/03/24 10:00 Rx release 24 hr omeprazole 20 mg capsule,delayed 20 mg PO DAILY #100 caps 09/29/24 12/03/24 Rx release pen needle, diabetic 29 gauge x #100 ea 09/29/24 Unknown Rx 1/2 (CareFine Pen Needle) sitagliptin phosphate 100 mg 100 mg PO DAILY #100 tabs 09/29/24 12/03/24 Rx tablet (Januvia) valsartan 160 1 tab PO DAILY #90 TABLETS 09/29/24 12/03/24 Rx mg-hydrochlorothiazide 12.5 mg tablet ondansetron 4 mg disintegrating 4 mg PO Q8H PRN nausea and 11/29/24 12/02/24 Rx tablet vomiting #14 tabs insulin glargine 100 unit/mL (3 21 unit subcut QHS 12/03/24 12/02/24 History mL) subcutaneous pen (Lantus Solostar U-100 Insulin) magnesium 250 mg tablet 250 mg PO QHS 12/03/24 12/02/24 History Allergy/AdvReac Type Severity Reaction Status Date / Time meloxicam (From Mobic) Allergy Severe unknown Verified 12/03/24 14:09 pentazocine (From Talwin) Allergy Severe unknown Verified 12/03/24 14:09 metaxalone AdvReac Intermediate Nausea Verified 12/03/24 14:09 Family History Father Heart disease Mother CVA (cerebral vascular accident) Hypertension Breast cancer Surgical History History of back surgery History of left knee surgery History of appendectomy History of cardiac cath Social History Smoking Status: Never smoker how long ago did patient quit smokin alcohol intake: never Review of Systems (Anesthesia) ROS Narrative System reviewed and no additional complaints, except as documented.
[2024-12-06 13:08] LABS: Anti-dsDNA Ab <1 IU/mL (0-9)
[2024-12-06] MEDS: 0.9% Normal Saline (500mL Bag) 500 ML 15 ML IV (13:52)
[2024-12-06 14:01] LABS: Prothrombin Time (Protime)PT. 14.8 SECONDS (11.7-14.9)
[2024-12-06 14:02] LABS: Partial Thromboplast Time 27.2 Seconds (24.1-36.2)
[2024-12-06] MEDS: Cefazolin 1 GM/5 ML Vial 2 GM IV (14:25)
[2024-12-06] MEDS: 0.9% Normal Saline (1000mL) 200 ML IV (14:25)
[2024-12-06] MEDS: Lidocaine 1% (5 ml sdv) 5 ML Vial 6 ML IV (14:33)
--- NOTE | 2024-12-06 15:25 | PCM.OPRPT ---
Procedures Cardiovascular CF Procedures [id number]: [id number] Insert tunneled cv cath Operative Report (Standard) Operative Information Date of Procedure: 12/06/24 Pre-Operative Diagnosis: Acute renal failure requiring initiation of hemodialysis Post-Operative Diagnosis: Acute renal failure requiring initiation of hemodialysis Surgery/Procedure Performed: Ultrasound and fluoroscopic guided placement of tunneled right internal jugular hemodialysis catheter foreign languages professor: Yes Court Abstractor: Svetlana Hillman Tasks completed by primary teaching assistant: Retracting Type of Anesthesia: MAC/Supplemental RN Documented Start/Stop Times: Operation Date: 12/06/24 13:00 Case Time Into Pre-Op 12/06/24 12:05 Out of Pre-Op 12/06/24 14:21 Anesthesia Start 12/06/24 14:25 Into Room 12/06/24 14:25 Procedure Start 12/06/24 14:59 Procedure End 12/06/24 15:23 Anesthesia End 12/06/24 15:28 Out of Room 12/06/24 15:28 Into Recovery 12/06/24 15:31 Out of Recovery 12/06/24 16:01 Procedure Start Time: 14:59 Procedure Stop Time: 15:23 Select all DRAINS/GRAFTS/IMPLANTS that apply: Implanted device (Palindrome chronic dual-lumen catheter 14.5 Kyrgyz by 19 cm) Implanted device details: Reference [id number], lot [id number] Estimated Blood Loss: 5 Specimen collected: No Description of surgery: After appropriate identification in the preoperative holding area the patient was brought to the operating room where they were positioned supine on the operating room table. Preoperative antibiotics were completely administered. Sedation was begun per anesthesia then I confirmed patency of the right internal jugular vein with bedside ultrasound. Upon reaching this confirmation patient's right neck was prepped and draped in usual sterile fashion. Formal timeout was conducted to confirm both the patient and the procedure. Procedure was begun with ultrasound-guided access of the right internal jugular vein using a standard 035 guidewire from the access kit. Fluoroscopy confirmed appropriate position of the wire. At this point I made a measurement from the insertion site to the mid atrium of approximately 17 cm. Desiring some room for the patient's tunneling/cuff placement, elected to proceed with a 19 cm catheter. The insertion site was then enlarged sharply and bluntly. Measuring back from the proximal insertion site on the catheter, we determined that the tunneling site would need to be at least 5 cm away from the insertion site. Therefore this was measured out on the patient's chest and a counterincision was made at this point after instilling local anesthetic. A gentle curve of the tunneling tract to the insertion site was also instilled with local anesthetic. Then the catheter was connected to the tunneling device and was tunneled to the insertion site. Next the insertion site was serially dilated and the peel-away sheath was placed under fluoroscopy. The catheter was fed through the peel-away sheath and once we neared completion another fluoroscopy image was obtained. Functionally, the catheter was tested with aspiration and flush of injectable saline which it did with ease. The insertion site in the neck was then closed with a single interrupted 2-0 nylon stitch. Another 2-0 nylon stitch was used to close down the insertion site at the tunneling entrance as a means of creating a cerclage. Lastly, the catheter was secured at the tiedown points on each port with a interrupted 2-0 nylon. Now each catheter lumen was locked with 2 mL heparinized saline (concentration 1000 units/mL) per package specification. Chlorhexidine gel dressing was placed about the catheter. Patient was then allowed to emerge from sedation and was taken to PACU in stable condition. A chest x-ray was ordered in PACU for review of the catheter placement and to exclude pneumothorax. Surgical Findings: ? Catheter appearing to terminate in the distal SVC Complications Complications: No
--- NOTE | 2024-12-06 15:35 | PCM.POST.ANE ---
Anesthesia: Postop Eval I Current Vital Signs Temperature: 98.2 F Pulse Rate: 87 Blood Pressure: 109/54 Respiratory Rate: 16 Pulse Ox: 94 Assessment Airway patent: Yes Spontaneous unlabored respirations: Yes nausea: No Vomiting: No Anesthesia Complication: No Fluid Hydration Crystalloid volume administer (ml): 200 Total IV fluid infused: 200 Progress Note Anesthesia document: Postop Eval 1 completed: Yes
--- NOTE | 2024-12-06 15:50 | RAD_ITS ---
PROCEDURE: CXR FOR LINE PLACEMENT 12/06/2024 REASON FOR EXAM: STATUS POST LINE PLACEMENT TECHNIQUE: Procedure Code: RADCXRLP Modality: DX Procedure: CXR FOR LINE PLACEMENT COMPARISON: Chest x-ray of 12/03/2024. RAD/CXR for Line Placement IMPRESSION: A right jugular central venous catheter seen, with tip projecting near the expe cted junction of the SVC and right atrium. At least moderate interstitial pulmonary edema is seen. Also, probable patchy bilateral areas airspace disease are seen, [id number]-right. While this most likely represents pulmonary edema, ca nnot exclude the presence of pneumonitis side. Although no definite right pleural effusion is seen, a moderate left pleural ef fusion is noted. No pneumothorax is noted. The cardiomediastinal silhouette is stable, without evidence of cardiomegaly. Reading Location: [place] [id number]
--- NOTE | 2024-12-06 16:23 | POSTOPAN2_ITS ---
Anesthesia Postop Eval I Sum Postop Eval Completion status Anesthesia document: Postop Eval 1 completed: Yes Anesthesia Postop Eval I Summary Anesthesia Postop Eval I Summary: Anesthesia Postop Eval I: Assessment Summary Airway patent Yes 12/06/24 15:35 INTERNSHIP [email or web address] Spontaneous unlabored Yes 12/06/24 15:35 INTERNSHIP [email or web address] respirations Mental status nausea No 12/06/24 15:35 INTERNSHIP COORDINATOR.[email or web address] Vomiting No 12/06/24 15:35 INTERNSHIP COORDINATOR.[email or web address] Anesthesia Postop Eval I: Fluid Summary Crystalloid volume administer 200 12/06/24 15:35 INTERNSHIP COORDINATOR.[email or web address] (ml) Colloids volume administered ( ml) Blood Product volume administered (ml) Total IV fluid infused 200 12/06/24 15:35 INTERNSHIP COORDINATOR.[email or web address] Anesthesia Postop Eval I: Summary Notes Anesthesia Complication No 12/06/24 15:35 INTERNSHIP COORDINATOR.[email or web address] Anesthesia Complication Comment: Post-operative progress note Anesthesia: Postop Eval II Evaluation Mental status: Awake Pain Level: 1 nausea: No Vomiting: No
--- NOTE | 2024-12-06 16:23 | PCM.POSTANE2 ---
Anesthesia Postop Eval I Sum Postop Eval Completion status Anesthesia document: Postop Eval 1 completed: Yes Anesthesia Postop Eval I Summary Anesthesia Postop Eval I Summary: Anesthesia Postop Eval I: Assessment Summary Airway patent Yes 12/06/24 15:35 SENIOR SHIPPING [email or web address] Spontaneous unlabored Yes 12/06/24 15:35 SENIOR SHIPPING CLERK.[email or web address] respirations Mental status nausea No 12/06/24 15:35 SENIOR SHIPPING CLERK.TNES Vomiting No 12/06/24 15:35 SENIOR SHIPPING CLERK.TNES Anesthesia Postop Eval I: Fluid Summary Crystalloid volume administer 200 12/06/24 15:35 SENIOR SHIPPING CLERK.TNES (ml) Colloids volume administered ( ml) Blood Product volume administered (ml) Total IV fluid infused 200 12/06/24 15:35 SENIOR SHIPPING [email or web address].[email or web address] Anesthesia Postop Eval I: Summary Notes Anesthesia Complication No 12/06/24 15:35 SENIOR SHIPPING CLERK.TNES Anesthesia Complication Comment: Post-operative progress note Anesthesia: Postop Eval II Evaluation Mental status: Awake Pain Level: 1 nausea: No Vomiting: No
--- NOTE | 2024-12-06 20:51 | EKG12_ITS ---
Test Reason : AARTHMIA Blood Pressure : */* mmHG Vent. Rate : 105 BPM Atrial Rate : 105 BPM P-R Int : 204 ms QRS Dur : 92 ms QT Int : 298 ms P-R-T Axes : 51 10 136 degrees QTcB Int : [address] & T wave abnormality, consider lateral ischemia Abnormal ECG When compared with ECG of 06-Dec-2024 20:58, MANUAL COMPARISON REQUIRED DATA IS UNCONFIRMED Confirmed by ALFREDITO SHIELDS, CAROL ([id number]), newspaper or periodical editor MABEL LARRY ([id number]) on 12/08/2024 5:47:58 AM Referred By: MICHEAL Confirmed By: CAROL GLASER MD
[2024-12-06] MEDS: Senna/Docusate Sodium 1 Tablet 2 TABLET PO (21:16)
[2024-12-07] VITALS (27 sets, daily range): BP systolic 148–189; BP diastolic 70–107; PULSE 84–123; RESP 14–24; TEMP 36.3–36.9; O2SAT 3–96; BMI 25.2; BMI 24.7
[2024-12-07 04:58] LABS: Hematocrit 21.6 % (40-54); Hemoglobin 7.9 g/dL (13.0-16.5); Mean Corp Hgb Conc 36.6 g/dL (32-36); Mean Corpuscular Volume 101.9 fL (80-94); Mean Platelet Vol. 10.1 fl (6.2-12.0); Platelet Count 127 K/mm3 (150-450); RBC Distribution Width CV 11.8 % (11.6-14.6); RBC Distribution Width SD 43.4 fl (35.1-43.9); Red Blood Count 2.12 M/mm3 (4.6-6.2); White Blood Count 7.3 K/mm3 (4.4-11.0)
--- NOTE | 2024-12-07 06:00 | EKG12_ITS ---
Test Reason : AARTHMIA Blood Pressure : */* mmHG Vent. Rate : 111 BPM Atrial Rate : 111 BPM P-R Int : 190 ms QRS Dur : 94 ms QT Int : 274 ms P-R-T Axes : 47 14 157 degrees QTcB Int : [address] & T wave abnormality, consider lateral ischemia Abnormal ECG When compared with ECG of 06-Dec-2024 05:26, No significant change was found Confirmed by ALFREDITO SHIELDS, CAROL ([id number]), film or videotape editor MABEL LARRY ([id number]) on 12/08/2024 5:48:33 AM Referred By: MICHEAL Confirmed By: CAROL GLASER MD
[2024-12-07 06:22] LABS: Magnesium 3.6 mg/dL (1.5-2.2)
[2024-12-07 06:25] LABS: AST(SGOT) 21 U/L (<=37); Alanine Aminotransfer ALT/SGPT 13 U/L (<=46); Albumin, Serum 2.8 g/dL (3.4-4.8); Alkaline Phosphatase 78 U/L (40-129); Anion Gap 15 (5-15); BUN 101 mg/dL (4-19); BUN/Creat Ratio 11.5 RATIO (10-20); Calcium,Total 10.9 mg/dL (7.6-11.0); Carbon Dioxide 19.1 mmol/L (21.0-32.0); Chloride 97 mmol/L (98-108); Estimated Creatinine Clearance 6.85 ml/min (50-250); Globulin 4.9 g/dL (2.2-4.2); Glucose 111 mg/dL (70-99); Potassium 4.5 mmol/L (3.3-5.1)
--- NOTE | 2024-12-07 07:46 | PCM.PN.SRG ---
Subjective Subjective Patient evaluated resting comfortably in bed. He is currently on dialysis. He denies any pain at the catheter site. Objective Data Objective Data Vital Signs: Vital Signs Temp Pulse Resp BP Pulse Ox O2 Del Method O2 Flow Rate 97.4 F L 123 H 24 H 184/84 H 3 Nasal Cannula 3 12/07/24 05:55 12/07/24 05:55 12/07/24 05:55 12/07/24 05:55 12/07/24 06:00 12/07/24 06:00 12/07/24 05:55 Oxygen Flow Rate (L/min) 3 Oxygen Delivery Method Nasal Cannula Weight: 186 lb 8.177 oz Body Mass Index (BMI) 25.2 Intake & Output: Intake and Output for Last 24 Hours 12/05/24 12/06/24 12/07/24 23:59 23:59 23:59 Intake Total 2953.95 / 2953.95 1797.2 / 2497.2 700 / 700 Output Total 1200 / 1600 1302 / 1602 300 / 300 Balance 1753.95 / 1353.95 495.2 / 895.2 400 / 400 Medical Nutrition Assessment Dietitian: Malnutrition Criteria Met Start: 12/04/24 12:12 Freq: Status: Active Protocol: Document 12/04/24 12:12 SLA (Rec: 12/04/24 12:13 SLA 10..25.7) Nutrition Malnutrition Evidence of Yes Malnutrition Exists Malnutrition (severe Acute Illness/Injury ): Evidenced By Suboptimal Energy Intake (Severe),Weight Loss (Severe) Clinical Problem Acute Disease or Injury Related Malnutrition Etiology related to issues w/ nausea and vomiting x 2-3 wks group captain and inadequate energy intake Signs/Symptoms as evidenced by po intake meeting <75% of est nutritional needs and 3% unintended wt loss x 2-3 wks group captain. Status Active Problem Recommendation Dietitian Will liberalize diet to Regular w/ glucerna shake tid Recommendations/ at meals - once po intake improves, can adjust to carb Changes controlled diet if indicated. Will continue to follow and monitor for changes in pt nutritional status and make additional rec as indicate. Lab / Micro Data 12/07/24 04:14 12/07/24 04:14 Labs: Laboratory Results - last 24 hr 12/05/24 05:04: Double Strand DNA Ab <1 12/06/24 13:39: PT 14.8, INR 1.1, APTT 27.2 12/06/24 17:29: POC Glucose 87 12/06/24 21:26: POC Glucose 134 H 12/07/24 04:14: WBC 7.3, RBC 2.12 L, Hgb 7.9 L, Hct 21.6 L, MCV 101.9 H, MCH 37.3 H, MCHC 36.6 H, RDW Std Deviation 43.4, RDW Coeff of Scotty 11.8, Plt Count 127 L, MPV 10.1, Sodium 131 L, Potassium 4.5, Chloride 97 L, Carbon Dioxide 19.1 L, Anion Gap 15, BUN 101 H*, Creatinine 8.81 H*, Estim Creat Clear Calc 6.85 L*, Est GFR (MDRD) Non-Af 5 L, BUN/Creatinine Ratio 11.5, Glucose 111 H, Calcium 10.9, Phosphorus 5.0 H, Magnesium 3.6 H, Total Bilirubin 0.37, AST 21, ALT 13, Alkaline Phosphatase 78, Total Protein 7.7, Albumin 2.8 L, Globulin 4.9 H, Albumin/Globulin Ratio 0.6 L 12/07/24 06:50: POC Glucose 135 H Micro: Microbiology 12/03/24 20:38 Urine, Catheterized Urine Culture - Final Culture exhibits no growth. Radiography Diagnostic Testing: Radiology Impression Chest X-Ray 12/06/24 15:50 IMPRESSION: A right jugular central venous catheter seen, with tip projecting near the expected junction of the SVC and right atrium. At least moderate interstitial pulmonary edema is seen. Also, probable patchy bilateral areas airspace disease are seen, [id number]-right. While this most likely represents pulmonary edema, cannot exclude the presence of pneumonitis side. Although no definite right pleural effusion is seen, a moderate left pleural effusion is noted. No pneumothorax is noted. The cardiomediastinal silhouette is stable, without evidence of cardiomegaly. Reading Location: [facility] Physical Exam Chest Chest Narrative: Right chest- dialysis catheter intact. No oozing noted. Assessment & Plan Assessment/Plan (1) Acute renal failure: PLAN: I am following this patient in conjunction with Dr. Shin in Dr. Bortz's absence. He will independently evaluate this patient. Dialysis catheter intact and working well We will follow as needed at this time Please contact our service if needed in the future Thank you for allowing us to participate in this patient's care Charges/Coding Visit Charges Inpatient E&M: 43401 Subs Hosp L1 (post-op; no charge)
[2024-12-07 08:41] LABS: Hepatitis B Surface Antigen Nonreactive (Nonreactive)
[2024-12-07] MEDS: 0.9% Normal Saline 1,000 ML IV.SOLN. 1000 ML OPERA.SITE (10:10)
[2024-12-07] MEDS: PureFlow B 2K Dialysis Soln 1 BAG 6 BAG PF (10:10)
[2024-12-07] MEDS: 0.9% Saline Lock 10 ML Syringe IV ×2 (10:11→21:32)
--- NOTE | 2024-12-07 10:48 | PCM.PN.HOSP ---
Reason for Visit Chief Complaint: N/V, generalized weakness Subjective Subjective Laying down, finishing up dialysis, tolerated this well, reports he has not had a bowel movement in several days but denies any nausea. Denies any increased shortness of breath at time of exam or new cough, reports some sneezing when O2 is in place Objective Data Objective Data Vital Signs: Vital Signs Temp Pulse Resp BP Pulse Ox O2 Del Method O2 Flow Rate 98 F 88 14 159/91 H 96 Nasal Cannula 3 12/07/24 10:20 12/07/24 10:20 12/07/24 10:20 12/07/24 10:20 12/07/24 10:20 12/07/24 10:20 12/07/24 10:20 Oxygen Flow Rate (L/min) 3 Oxygen Delivery Method Nasal Cannula Weight: 82.6 kg Body Mass Index (BMI) 24.7 Intake & Output: Intake and Output for Last 24 Hours 12/05/24 12/06/24 12/07/24 23:59 23:59 23:59 Intake Total 2953.95 / 2953.95 1797.2 / 2497.2 700 / 700 Output Total 1200 / 1600 1302 / 1602 2340 / 2340 Balance 1753.95 / 1353.95 495.2 / 895.2 -1640 / -1640 Medical Nutrition Assessment Dietitian: Malnutrition Criteria Met Start: 12/04/24 12:12 Freq: Status: Active Protocol: Document 12/04/24 12:12 SLA (Rec: 12/04/24 12:13 SLA 10..25.7) Nutrition Malnutrition Evidence of Yes Malnutrition Exists Malnutrition (severe Acute Illness/Injury ): Evidenced By Suboptimal Energy Intake (Severe),Weight Loss (Severe) Clinical Problem Acute Disease or Injury Related Malnutrition Etiology related to issues 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 Status Active Problem Recommendation Dietitian Will liberalize diet to Regular w/ glucerna shake tid Recommendations/ at meals - once po intake improves, can adjust to carb Changes controlled diet if indicated. Will continue to follow and monitor for changes in pt nutritional status and make additional rec as indicate. Lab / Micro Data 12/07/24 04:14 12/07/24 04:14 Labs: Laboratory Results - last 24 hr 12/05/24 05:04: Double Strand DNA Ab <1, Hep Bs Antigen Nonreactive 12/06/24 13:39: PT 14.8, INR 1.1, APTT 27.2 12/06/24 17:29: POC Glucose 87 12/06/24 21:26: POC Glucose 134 H 12/07/24 04:14: WBC 7.3, RBC 2.12 L, Hgb 7.9 L, Hct 21.6 L, MCV 101.9 H, MCH 37.3 H, MCHC 36.6 H, RDW Std Deviation 43.4, RDW Coeff of Scotty 11.8, Plt Count 127 L, MPV 10.1, Sodium 131 L, Potassium 4.5, Chloride 97 L, Carbon Dioxide 19.1 L, Anion Gap 15, BUN 101 H*, Creatinine 8.81 H*, Estim Creat Clear Calc 6.85 L*, Est GFR (MDRD) Non-Af 5 L, BUN/Creatinine Ratio 11.5, Glucose 111 H, Calcium 10.9, Phosphorus 5.0 H, Magnesium 3.6 H, Total Bilirubin 0.37, AST 21, ALT 13, Alkaline Phosphatase 78, Total Protein 7.7, Albumin 2.8 L, Globulin 4.9 H, Albumin/Globulin Ratio 0.6 L 12/07/24 06:50: POC Glucose 135 H Micro: Microbiology 12/03/24 20:38 Urine, Catheterized Urine Culture - Final Culture exhibits no growth. Radiography Diagnostic Testing: Radiology Impression Chest X-Ray 12/06/24 15:50 IMPRESSION: A right jugular central venous catheter seen, with tip projecting near the expected junction of the SVC and right atrium. At least moderate interstitial pulmonary edema is seen. Also, probable patchy bilateral areas airspace disease are seen, [id number]. While this most likely represents pulmonary edema, cannot exclude the presence of pneumonitis side. Although no definite right pleural effusion is seen, a moderate left pleural effusion is noted. No pneumothorax is noted. The cardiomediastinal silhouette is stable, without evidence of cardiomegaly. Reading Location: [place] [address] Physical Exam Narrative General: Awake and alert, answering questions appropriately HEENT: Atraumatic, normocephalic Eyes: Anicteric, normal conjunctiva, extraocular movements grossly intact Neck: Supple Respiratory: No overt wheezes or rhonchi, slight crackles at left lung base, no increased respiratory effort Cardiovascular: Regular rate, seems to intermittently being having bouts of irregular heart rate and rhythm GI: Soft, nontender Extremities: No edema Musculoskeletal: Moving all extremities Neuro: No overt focal neurological deficits Skin: No rashes appreciated Psych: Cooperative Assessment & Plan Assessment/Plan (1) Acute renal failure: PLAN: Plan #Acute kidney failure -Patient with a creatinine around 1.5 at baseline with most recent value 9 months ago being 1.5 to - Presenting now with a creatinine of 8.56 - Bicarb 19.5 - Patient not hyperkalemic - Vitally stable and not volume overloaded - Patient alert, no seizure activity, confusion, altered mental status - Presently does not seem to have any indications for emergent dialysis - Suspect that patient's nausea and vomiting with very poor p.o. intake on top of continuing to take his valsartan/hydrochlorothiazide caused or largely contributed to his worsening renal failure - Patient reportedly had been urinating at home and even urinated this morning however in the ED unable to urinate and has 280 on bladder scan - Unclear if there has been an obstructive component to this as well given patient's report of urinating okay prior to coming in - Will have Monterroso catheter placed given patient reporting he is unable to urinate in the ED and bladder scan shows 280 - IV fluids - Will check UA given reports of suprapubic discomfort - Check urine studies - Kidney and bladder ultrasound -Check CK - Discussed with nephrology, nephrology consult placed -12/04: Despite sodium and calcium improving, kidney function has remained about the same, BUN this a.m. 112 with a creatinine of 8.49. UA with protein and occult blood, rare bacteria and does not seem UA is indicative of infection. FEUrea is 61.8 suggesting intrinsic renal disease. SPEP and UPEP pending, nephrology consulted, kidney and bladder ultrasound ordered, Monterroso catheter in place, patient has had 1300 output since admission yesterday evening. [place] lambda light chains ordered in addition to protein electrophoresis. Discussed with nephrology. -12/05: BUN 107 with a creatinine slightly worse of 8.79, still making urine, nephrology following, lab workup pending, kidney and bladder ultrasound is ordered and pending -12/06: Kidney and bladder ultrasound normal, kidney function virtually unchanged since presentation, patient for tunneled dialysis catheter today per nephrology recommendation to begin dialysis, discussed with nephrology, patient also for kidney biopsy tomorrow -12/07: Patient had dialysis today, 2 L taken off and tolerated that well, patient for biopsy today # Irregular heart beat -12/07: Patient notes he had an ablation 20 years ago for A-fib and has not had a problem since, on telemetry seems that he was going in and out of a fast rate, looks like it is likely fib but has been unable to be obtained on twelve-lead. Starting patient on metoprolol, first dialysis today as well and holding albuterol treatments, recommendation may have led to or exacerbated underlying A-fib if patient continues to have episodes despite dialysis, metoprolol, and holding albuterol will need to consider risks and benefits of anticoagulation on discharge # Hypercalcemia -Unclear if this is secondary to significant dehydration or if this could be a primary process associated with his renal failure and dehydration - Will hydrate with normal saline - Will check PTH and vitamin D - will check Phos - If no or minimal improvement can consider calcitonin and/or bisphosphonates - Will also check serum and urine protein electrophoresis given high calcium with kidney failure, high total protein and globulin, anemia and recent L1 fracture/bone pain in addition to generalized weakness - Chest x-ray also ordered to evaluate for any possible lesions -12/04: Improving with hydration, patient's Phos is high which is likely secondary to his renal failure, notably vitamin D is within normal limits at 43 and PTH is only 15. Suspect that patient's hypercalcemia is largely due to dehydration in addition to his hydrochlorothiazide in addition to multiple calcium based medications being taken daily for reflux but workup still pending. Protein electrophoresis pending and kappa lambda light chains ordered -12/05: Still slightly elevated at 11.5 but has consistently continued to improve, continue IV fluids and avoiding calcium based agents, continue to hold hydrochlorothiazide -12/06: Calcium within normal limits today -12/07: Calcium remains the same today, continue current management #Hyponatremia -Possibly secondary to dehydration but cannot say definitively, patient additionally on hydrochlorothiazide which will be held - Will order serum osmole's - Check urine studies - TSH - Lipid profile - Monitor I's and O's - Trend BMPs -12/04: Patient actually has elevated serum osmolality with an osmolality of 324 but no hyperglycemia or hyperlipidemia therefore suspect this is either due to his kidney failure with uremia or could possibly pseudohyponatremia due to a paraproteinemia +/- HCTZ, serum and urine protein electrophoresis pending as well as kappa lambda light chains. Notably sodium has slowly up trended to 129 with fluids and cessation of HCTZ, will continue present management while further workup underway -12/05: Sodium of 128, seems to have stabilized, do suspect that this is at least in part due to renal disease with uremia, continue to monitor, continue to hold hydrochlorothiazide -12/06: Hyponatremia continues to remain stable with a sodium of 129, will not resume hydrochlorothiazide on discharge -12/07: Sodium is further improved to 131 today, patient had 2 L removed with dialysis, repeat a.m. # Macrocytic anemia -12/04: Patient with hemoglobin 10.7 on presentation with no previous baseline seen in our system, this a.m. hemoglobin 7.9 which is significant drop but no evidence of ongoing bleeding, suspect the patient was significantly volume depleted/dehydrated and was hemoconcentrated especially given drop in all 3 cell lines. MCV is 98.6, will be ordering B12, iron panel, folate -12/05: Hemoglobin slightly lower today, in part likely due to dilution and blood draws, 7.2 this a.m.. Folate is technically within normal limits but on the low side so we will start folic acid but B12 within normal limits, iron and iron saturation within normal limits with elevated ferritin. 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 -12/06: Hemoglobin actually up to 7.7 today, continue to monitor -12/07: No evidence of blood loss, hemoglobin remaining stable, hemoglobin 7.9 today #GERD -Continue PPI -12/04: Reportedly patient's been having significant reflux symptoms for the past year, takes omeprazole at home and has been taking nightly calcium based products for reflux, patient's reflux may be contributing to his nausea, will place on IV PPI twice daily, avoiding calcium based agents -12/05: Patient now on IV PPI every 12, avoiding calcium based agents, symptoms significantly improved -12/06: Doing very well on twice daily PPI, will likely need this on discharge -12/07: Has had significant improvement, currently reporting constipation but no upper GI symptoms #Hypertension -Will be holding valsartan/hydrochlorothiazide due to the above -12/04: Continue to hold valsartan/hydrochlorothiazide and monitor blood pressure, can consider alternative agent if necessary but will be careful to avoid hypotension -12/05: Hydralazine as needed if needed, continue to hold ARB and HCTZ -12/06: Patient on hydralazine as needed, would likely need to begin antihypertensive, will plan to do this after patient's procedure pending blood pressures -12/07: Amlodipine started, starting metoprolol as above #L1 compression fracture - Patient scheduled for kyphoplasty Thursday - Denies taking any NSAIDs or pain medications - Supportive care -12/04: Continue pain control and supportive care -12/05: Did advise to cancel kyphoplasty appointment given patient still in the hospital and to hold off on rescheduling until we have more answers and a better idea of discharge -12/06: Will need follow-up with pain management upon discharge -12/07: Due to patient having multiple procedures he has not been able to consistently work with PT, will need PT reeval when able and prior to discharge as patient does not often get out of bed and concerns that he could have some difficulty with mobility #Type 2 diabetes mellitus -Glucose checks and sliding scale insulin - Had somewhat low glucose of 59 on presentation - Will decrease long-acting insulin - Holding sitagliptin and metformin -12/04: Glucose has actually remained low, will discontinue long-acting insulin altogether -12/05: Glucose has been more stable overnight, continue to hold long-acting insulin -12/06: Glucose 123 this a.m., hemoglobin A1c 6.4, will need to decrease patient's insulin regimen significantly on discharge to avoid hypoglycemia -12/07: Glucose maintaining in the low 100s, continue current management Chronic medical problems and/or problems not being actively addressed during today's encounter: #Hypothyroidism -Continue Synthroid #DVT ppx: SCDs Claire Mazariegos MD Charges/Coding Visit Charges Inpatient E&M: 86572 Subs Hosp L2
[2024-12-07] MEDS: Folic Acid 1 MG in 0.9% Normal Saline (50mL Bag) 50 ML 200 MG IV (11:01)
--- NOTE | 2024-12-07 11:08 | CASEMGMT ---
BUCK SHETTY [facility] including treatment sheet, Hep B, and operative report of line placement. Awaiting clearance from [facility] and final schedule.
[2024-12-07] MEDS: Senna/Docusate Sodium 1 Tablet 2 TABLET PO ×2 (11:11→21:28)
[2024-12-07] MEDS: Polyethylene Glycol 3350 17 GM PACKET 34 GM PO (11:17)
[2024-12-07] MEDS: NORMAL SALINE 0.9% IV (11:24)
[2024-12-07] MEDS: DESMOPRESSIN ACETATE IV (11:24)
--- NOTE | 2024-12-07 12:00 | US_ITS ---
PROCEDURE: KIDNEY BIOPSY 12/07/2024 REASON FOR EXAM: DEANGELO Severely elevated creatinine level. TECHNIQUE: Procedure Code: USKIB Modality: US Procedure: KIDNEY BIOPSY COMPARISON: Renal ultrasound of 12/05/2024. FINDINGS: Initial imaging shows easily accessible right kidney, without evidence of hydronephrosis. The right kidney is measured at 13.1 x 4.7 by 4.9 cm, with cortical thickness of 13 mm. Following informed consent, an using standard sterile technique, a right inferior ultrasound-guided renal cortical biopsy was performed. 2% lidocaine local anesthesia was followed by placement of a 15 cm 18 gauge [employer] core biopsy system. 3 samples were then obtained. No complication was encountered, the patient left the department in good condition without complaint. US/Kidney Biopsy IMPRESSION: Successful right inferior renal core biopsy. Pathology results pending. Reading Location: [place] [address]
--- NOTE | 2024-12-07 12:31 | PCM.PN.REN ---
Subjective Subjective HD today Objective Data Objective Data Vital Signs: Vital Signs Temp Pulse Resp BP Pulse Ox O2 Del Method O2 Flow Rate 98.2 F 101 H 18 149/88 H 92 Nasal Cannula 2 12/07/24 11:00 12/07/24 11:11 12/07/24 11:00 12/07/24 11:11 12/07/24 11:00 12/07/24 11:00 12/07/24 11:00 Oxygen Flow Rate (L/min) 2 Oxygen Delivery Method Nasal Cannula Weight: 82.6 kg Body Mass Index (BMI) 24.7 Intake & Output: Intake and Output for Last 24 Hours 12/05/24 12/06/24 12/07/24 23:59 23:59 23:59 Intake Total 2953.95 / 2953.95 1797.2 / 2497.2 805.2 / 805.2 Output Total 1200 / 1600 1302 / 1602 2340 / 2340 Balance 1753.95 / 1353.95 495.2 / 895.2 -1534.8 / -1534.8 Medical Nutrition Assessment Dietitian: Malnutrition Criteria Met Start: 12/04/24 12:12 Freq: Status: Active Protocol: Document 12/04/24 12:12 SLA (Rec: 12/04/24 12:13 SLA 10.7) Nutrition Malnutrition Evidence of Yes Malnutrition Exists Malnutrition (severe Acute Illness/Injury ): Evidenced By Suboptimal Energy Intake (Severe),Weight Loss (Severe) Clinical Problem Acute Disease or Injury Related Malnutrition Etiology related to 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 Status Active Problem Recommendation Dietitian Will liberalize diet to Regular w/ glucerna shake tid Recommendations/ at meals - once po intake improves, can adjust to carb Changes controlled diet if indicated. Will continue to follow and monitor for changes in pt nutritional status and make additional rec as indicate. Lab / Micro Data 12/07/24 04:14 12/07/24 04:14 Labs: Laboratory Results - last 24 hr 12/05/24 05:04: Double Strand DNA Ab <1, Hep Bs Antigen Nonreactive 12/06/24 13:39: PT 14.8, INR 1.1, APTT 27.2 12/06/24 17:29: POC Glucose 87 12/06/24 21:26: POC Glucose 134 H 12/07/24 04:14: WBC 7.3, RBC 2.12 L, Hgb 7.9 L, Hct 21.6 L, MCV 101.9 H, MCH 37.3 H, MCHC 36.6 H, RDW Std Deviation 43.4, RDW Coeff of Scotty 11.8, Plt Count 127 L, MPV 10.1, Sodium 131 L, Potassium 4.5, Chloride 97 L, Carbon Dioxide 19.1 L, Anion Gap 15, BUN 101 H*, Creatinine 8.81 H*, Estim Creat Clear Calc 6.85 L*, Est GFR (MDRD) Non-Af 5 L, BUN/Creatinine Ratio 11.5, Glucose 111 H, Calcium 10.9, Phosphorus 5.0 H, Magnesium 3.6 H, Total Bilirubin 0.37, AST 21, ALT 13, Alkaline Phosphatase 78, Total Protein 7.7, Albumin 2.8 L, Globulin 4.9 H, Albumin/Globulin Ratio 0.6 L 12/07/24 06:50: POC Glucose 135 H Micro: Microbiology 12/03/24 20:38 Urine, Catheterized Urine Culture - Final Culture exhibits no growth. Radiography Diagnostic Testing: Radiology Impression Chest X-Ray 12/06/24 15:50 IMPRESSION: A right jugular central venous catheter seen, with tip projecting near the expected junction of the SVC and right atrium. At least moderate interstitial pulmonary edema is seen. Also, probable patchy bilateral areas airspace disease are seen, [id number]. While this most likely represents pulmonary edema, cannot exclude the presence of pneumonitis side. Although no definite right pleural effusion is seen, a moderate left pleural effusion is noted. No pneumothorax is noted. The cardiomediastinal silhouette is stable, without evidence of cardiomegaly. Reading Location: [place] [id number] Physical Exam Narrative Alert awake oriented x 3 no obvious distress no JVD s1s2 no murmurs Diminished breath sounds with faint expiratory wheezing. On O2 via nasal cannula abdomen soft, nontender no edema Monterroso with clear yellow urine in bag and tubing Assessment & Plan Assessment/Plan (1) Hypercalcemia: (2) Acute renal failure: PLAN: Baseline creatinine as of beginning of this year was around 1.4 or so. Admission creatinine more than 9. Monterroso indwelling without much urine output. Renal ultrasound pending Associated hypercalcemia recent spine related issues. Will check serum protein electrophoresis, kappa, lambda light chain assay. I will also send other serologies. He also takes Tums 1 a day due to acid reflux. I am not sure if that is the cause of hypercalcemia as well. So far PTH is suppressed. Continue IV fluids for now. If no significant recovery, may need a kidney biopsy. dw hospitalist 12/05/2024; SCr 8.56 on admission--> SCr 8.79 mg/dL today. Potassium and bicarb acceptable. Calcium 14.6 on admission, 11.5 today (continue holding valsartan/hydrochlorothiazide). Patient on IV fluids. Renal serologies pending. Urine output around 1.5 L yesterday (patient has Monterroso). Blood pressures acceptable. Though urine output has picked up renal function is slowly worsening and reviewed that with patient and his today. Reviewed with them that patient is quite possibly heading towards needing renal replacement therapy. Risks and benefits of dialysis explained. Dialysis in inpatient setting and outpatient setting also explained. Questions were answered. Patient is in agreement with moving forward with renal placement therapy. There is no urgent need for renal placement therapy today as potassium and bicarb acceptable and volume status appears compensated. He did state he would like to see how his labs look tomorrow but in agreement with starting hemodialysis if necessary. Recommend surgery consult for hemodialysis catheter placement. Discussed nephrology plan with patient and . Discussed nephrology plan with Dr. Mazariegos. Labs ordered for morning. Assessment and plan reviewed with Dr. Harding 12/06/2024; serum creatinine about the same today, 8.5 mg/dL, bicarb 20, potassium 4.2. Urine output yesterday 1.2 L. Calcium 10.9 today. Overnight patient developed difficulty breathing with wheezing, now on O2 nasal cannula. Can stop IV fluids. He is to have tunneled hemodialysis catheter placed today then will plan for dialysis afterwards and attempt small amount of fluid removal as patient/blood pressure tolerates. Renal serologies are pending. Discussed with patient today about kidney biopsy, risk and benefit of biopsy. Patient is in agreement with having kidney biopsy. Will place orders. Patient is not on any blood thinners. Continue to monitor for renal recovery. Discussed with case management, arrangements underway for outpatient hemodialysis at [facility] diagnosis DEANGELO. Assessment and plan reviewed with Dr. Harding 12/07/2024. Serologies are still pending. Significant protein gap. Hypercalcemia on admission, now better. Recent low back issues. Myeloma is possible. Will plan for kidney biopsy today. Dialysis today, dialysis tomorrow. Discussed with family bedside.
[2024-12-07 12:45] LABS: Pathology Sent to OSU SEE PATHOLOGY REPORT
[2024-12-07] MEDS: Pantoprazole Sodium 40 MG in 0.9% Normal Saline (100mL MB+) 100 ML 300 MG IV ×2 (12:51→21:30)
[2024-12-07 21:07] LABS: Cytoplasmic Ab (C-ANCA) <1:20 titer (Neg:<1:20); Perinuclear Ab (P-ANCA) <1:20 titer (Neg:<1:20)
[2024-12-08] VITALS (25 sets, daily range): BP systolic 140–188; BP diastolic 69–113; PULSE 69–136; RESP 14–24; TEMP 36.5–37.1; O2SAT 85–96; BMI 24.5
[2024-12-08 06:18] LABS: Hematocrit 20.4 % (40-54); Hemoglobin 7.2 g/dL (13.0-16.5); Mean Corp Hgb Conc 35.3 g/dL (32-36); Mean Corpuscular Volume 102.5 fL (80-94); Mean Platelet Vol. 10.0 fl (6.2-12.0); Platelet Count 110 K/mm3 (150-450); RBC Distribution Width CV 12.0 % (11.6-14.6); RBC Distribution Width SD 44.5 fl (35.1-43.9); Red Blood Count 1.99 M/mm3 (4.6-6.2); White Blood Count 5.0 K/mm3 (4.4-11.0)
[2024-12-08 06:27] LABS: Anion Gap 13 (5-15); BUN 71 mg/dL (4-19); BUN/Creat Ratio 11.5 RATIO (10-20); Calcium,Total 10.5 mg/dL (7.6-11.0); Carbon Dioxide 21.1 mmol/L (21.0-32.0); Chloride 98 mmol/L (98-108); Estimated Creatinine Clearance 9.75 ml/min (50-250); Glucose 125 mg/dL (70-99); Potassium 4.1 mmol/L (3.3-5.1)
[2024-12-08] MEDS: 0.9% Normal Saline 1,000 ML IV.SOLN. 1000 ML OPERA.SITE (09:47)
[2024-12-08] MEDS: 0.9% Saline Lock 10 ML Syringe IV ×2 (09:48→22:06)
[2024-12-08] MEDS: PureFlow B 2K Dialysis Soln 1 BAG 6 BAG PF (09:48)
[2024-12-08 11:08] LABS: Albumin 2.9 g/dL (2.9-4.4); Gamma Globulin 0.3 g/dL (0.4-1.8); Immunoglobulin A 3265 mg/dL (61-437); Immunoglobulin G 326 mg/dL (603-1613); Immunoglobulin M 11 mg/dL (15-143); PROEL- TOTAL PROTEIN 7.8 g/dL (6.0-8.5); PROELU- Albumin, Urine 19.6 % (.); PROELU- Alpha-1-Globulin,Ur 1.5 % (.); PROELU- Alpha-2-Globulin,Ur 4.2 % (.); PROELU- Beta Globulin, Ur 11.1 % (.); PROELU- Gamma Globulin, Ur 63.6 % (.); Total Protein, Ur 87.9 mg/dL (Not Estab.)
[2024-12-08] MEDS: Pantoprazole Sodium 40 MG in 0.9% Normal Saline (100mL MB+) 100 ML 300 MG IV ×2 (12:16→22:01)
[2024-12-08] MEDS: Folic Acid 1 MG in 0.9% Normal Saline (50mL Bag) 50 ML 300 MG IV (12:16)
[2024-12-08] MEDS: Polyethylene Glycol 3350 17 GM PACKET 34 GM PO (12:17)
[2024-12-08] MEDS: Senna/Docusate Sodium 1 Tablet 2 TABLET PO ×2 (12:17→21:58)
[2024-12-08] MEDS: Lidocaine 5% Patch 1 PATCH TOPICAL (12:18)
--- NOTE | 2024-12-08 14:45 | RAD_ITS ---
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 TECHNIQUE: Procedure Code: RADBSM Modality: DX Procedure: BONE SURVEY COMP(AXIAL APPEND) FINDINGS: 24 radiographs were provided for interpretation. Subtle round lucencies are noted in the proximal diaphyses of the bilateral humeri and within the mid shaft of the right radius, concerning for underlying malignancy. Questionable [id number] of the inferior aspects of the bony pelvis could be due to summation of shadows and overlying structures, however an infiltrative process can not be excluded. Degenerative changes are noted throughout the visualized spine and the bilateral knees. An enthesophyte extends off the lateral epicondyle of the distal right humerus at the elbow. RAD/Bone Survey Comp(Axial&Append) IMPRESSION: 1. Subtle round lucencies within the bilateral humeri and right radius, concern ing for underlying malignancy. 2. Questionable moth-eaten appearance of the inferior aspects of the bony pelvi s could be due to summation of shadows and overlying structures, however an infiltrative process can not be excluded. Reading Location: [id number]
--- NOTE | 2024-12-08 15:19 | PN.HOSP_ITS ---
Reason for Visit Chief Complaint: N/V, generalized weakness Subjective Subjective Patient was feeling more short of breath this morning, had elevated heart rate but breathing improved with improvement in heart rate and patient temporarily had converted with IV metoprolol. Patient reports just feeling a little rundown today, poor appetite, still have trying to have a bowel movement Objective Data Objective Data Vital Signs: Vital Signs Temp Pulse Resp BP Pulse Ox O2 Del Method O2 Flow Rate 98.0 F 110 H 16 176/75 H 90 Nasal Cannula 5 12/08/24 11:38 12/08/24 12:18 12/08/24 11:38 12/08/24 12:18 12/08/24 11:38 12/08/24 12:53 12/08/24 13:25 Oxygen Flow Rate (L/min) 5 Oxygen Delivery Method Nasal Cannula Weight: 82.4 kg Body Mass Index (BMI) 24.5 Intake & Output: Intake and Output for Last 24 Hours 12/06/24 12/07/24 12/08/24 23:59 23:59 23:59 Intake Total 1797.2 / 2497.2 1365.2 / 1365.2 350.2 / 350.2 Output Total 1302 / 1602 3040 / 3040 250 / 250 Balance 495.2 / 895.2 -1674.8 / -1674.8 100.2 / 100.2 Medical Nutrition Assessment Dietitian: Malnutrition Criteria Met Start: 12/04/24 12:12 Freq: Status: Active Protocol: Document 12/04/24 12:12 SLA (Rec: 12/04/24 12:13 SLA [id number]) Nutrition Malnutrition Evidence of Yes Malnutrition Exists Malnutrition (severe Acute Illness/Injury ): Evidenced By Suboptimal Energy Intake (Severe),Weight Loss (Severe) Clinical Problem Acute Disease or Injury Related Malnutrition Etiology related to issues 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 Status Active Problem Recommendation Dietitian Will liberalize diet to Regular w/ glucerna shake tid Recommendations/ at meals - once po intake improves, can adjust to carb Changes controlled diet if indicated. Will continue to follow and monitor for changes in pt nutritional status and make additional rec as indicate. Lab / Micro Data 12/08/24 04:38 12/08/24 04:38 Labs: Laboratory Results - last 24 hr 12/03/24 20:12: Total Protein (PEP) 7.8, Globulin 4.9 H, Urine Total Protein 87.9, Urine Albumin 19.6, U Frmfo-9-Prlxdwld 1.5, U Ynsjo-9-Madobhhn 4.2, U Beta Globulin 11.1, U Gamma Globulin 63.6, IgG 326 L, IgA 3265 H, IgM 11 L, I mmunofixation Screen Comment H, Albumin (OMERO) 2.9, Albumin/Globulin (OMERO) 0.6 L, Jgagc-9-Rkifddilz OMERO 0.3, Igynj-5-Jqbnkpfic OMERO 0.7, Beta-Globulins (OMERO) 3.6 H , Gamma Globulins (OMERO) 0.3 L, OMERO M-David Comment:, OMERO Comments Comment, Ur Immunofix PEP Note Comment 12/05/24 05:04: c-ANCA Antibody <1:20, Atypical p-ANCA <1:20, p-ANCA Antibody <1:20, Glomerular Base Memb Ab < 0.2, Complement C3 75 L, Complement C4 25, Free [place] LC, Quant 23.3 H, Free Lambda LC, Quant 1177.7 H, Free [place]/Lambda Ratio 0.02 L 12/07/24 16:28: POC Glucose 145 H 12/07/24 21:26: POC Glucose 133 H 12/08/24 04:38: WBC 5.0, RBC 1.99 L, Hgb 7.2 L, Hct 20.4 L, MCV 102.5 H, MCH 36.2 H, MCHC 35.3, RDW Std Deviation 44.5 H, RDW Coeff of Scotty 12.0, Plt Count 110 L, MPV 10.0, Sodium 132 L, Potassium 4.1, Chloride 98, Carbon Dioxide 21.1, Anion Gap 13, BUN 71 H, Creatinine 6.19 H, Estim Creat Clear Calc 9.75 L*, Est GFR (MDRD) Non-Af 8 L, BUN/Creatinine Ratio 11.5, Glucose 125 H, Calcium 10.5 12/08/24 06:30: POC Glucose 124 H 12/08/24 11:30: POC Glucose 96 Micro: Microbiology 12/03/24 20:38 Urine, Catheterized Urine Culture - Final Culture exhibits no growth. Physical Exam Narrative General: Awake and alert, answering questions appropriately HEENT: Atraumatic, normocephalic Eyes: Anicteric, normal conjunctiva, extraocular movements grossly intact Neck: Supple Respiratory: No wheezing, does have some increased respiratory effort again today Cardiovascular: Irregularly irregular, widely variable heart rate GI: Soft, nontender Extremities: No significant peripheral pitting edema Musculoskeletal: Moving all extremities Neuro: No overt focal neurological deficits Skin: No rashes appreciated Psych: Cooperative Assessment & Plan Assessment/Plan (1) Acute renal failure: PLAN: Plan #Acute kidney failure-concern for multiple myeloma -Patient with a creatinine around 1.5 at baseline with most recent value 9 months ago being 1.5 to - Presenting now with a creatinine of 8.56 - Bicarb 19.5 - Patient not hyperkalemic - Vitally stable and not volume overloaded - Patient alert, no seizure activity, confusion, altered mental status - Presently does not seem to have any indications for emergent dialysis - Suspect that patient's nausea and vomiting with very poor p.o. intake on top of continuing to take his valsartan/hydrochlorothiazide caused or largely contributed to his worsening renal failure - Patient reportedly had been urinating at home and even urinated this morning however in the ED unable to urinate and has 280 on bladder scan - Unclear if there has been an obstructive component to this as well given patient's report of urinating okay prior to coming in - Will have Monterroso catheter placed given patient reporting he is unable to urinate in the ED and bladder scan shows 280 - IV fluids - Will check UA given reports of suprapubic discomfort - Check urine studies - Kidney and bladder ultrasound -Check CK - Discussed with nephrology, nephrology consult placed -12/04: Despite sodium and calcium improving, kidney function has remained about the same, BUN this a.m. 112 with a creatinine of 8.49. UA with protein and occult blood, rare bacteria and does not seem UA is indicative of infection. FEUrea is 61.8 suggesting intrinsic renal disease. SPEP and UPEP pending, nephrology consulted, kidney and bladder ultrasound ordered, Monterroso catheter in place, patient has had 1300 output since admission yesterday evening. [place] lambda light chains ordered in addition to protein electrophoresis. Discussed with nephrology. -12/05: BUN 107 with a creatinine slightly worse of 8.79, still making urine, nephrology following, lab workup pending, kidney and bladder ultrasound is ordered and pending -12/06: Kidney and bladder ultrasound normal, kidney function virtually unchanged since presentation, patient for tunneled dialysis catheter today per nephrology recommendation to begin dialysis, discussed with nephrology, patient also for kidney biopsy tomorrow -12/07: Patient had dialysis today, 2 L taken off and tolerated that well, patient for biopsy today -12/08: Patient's free kappa/lambda ratio 0.02 and SPEP results concerning for possible multiple myeloma. Discussed with Dr. King with hematology/oncology. Case reviewed, given this is suspicious for multiple myeloma it was recommended to get a skeletal survey and a bone marrow biopsy. Discussed with patient family at bedside and patient agreeable. These orders have been placed. Patient will need to follow-up closely with Dr. King next week in the office if he is discharged over the weekend though currently unclear when patient will be ready for discharge. Renal biopsy pending, did have dialysis again today with no fluid taken off. # Irregular heart beat-A-fib with RVR -12/07: Patient notes he had an ablation 20 years ago for A-fib and has not had a problem since, on telemetry seems that he was going in and out of a fast rate, looks like it is likely fib but has been unable to be obtained on twelve-lead. Starting patient on metoprolol, first dialysis today as well and holding albuterol treatments, recommendation may have led to or exacerbated underlying A-fib if patient continues to have episodes despite dialysis, metoprolol, and holding albuterol will need to consider risks and benefits of anticoagulation on discharge -12/08: Patient intermittently with A-fib with RVR, adjusting metoprolol dosing, did convert temporarily with IV metoprolol earlier today, will continue to adjust medications. Did have TSH on presentation that was 0.591 # Shortness of breath suspect secondary to tachycardia -12/08: Patient's shortness of breath seems to worsen with elevated heart rates and improve when he is rate controlled more in sinus rhythm, adjusting metoprolol to achieve better control, TSH within normal limits. Did have chest x-ray on 12/06 that showed possible moderate interstitial pulmonary edema however patient was subsequently dialyzed with 2 L off but did not seem to significantly improve respiratory status # Hypercalcemia -Unclear if this is secondary to significant dehydration or if this could be a primary process associated with his renal failure and dehydration - Will hydrate with normal saline - Will check PTH and vitamin D - will check Phos - If no or minimal improvement can consider calcitonin and/or bisphosphonates - Will also check serum and urine protein electrophoresis given high calcium with kidney failure, high total protein and globulin, anemia and recent L1 fracture/bone pain in addition to generalized weakness - Chest x-ray also ordered to evaluate for any possible lesions -12/04: Improving with hydration, patient's Phos is high which is likely secondary to his renal failure, notably vitamin D is within normal limits at 43 and PTH is only 15. Suspect that patient's hypercalcemia is largely due to dehydration in addition to his hydrochlorothiazide in addition to multiple calcium based medications being taken daily for reflux but workup still pending. Protein electrophoresis pending and kappa lambda light chains ordered -12/05: Still slightly elevated at 11.5 but has consistently continued to improve, continue IV fluids and avoiding calcium based agents, continue to hold hydrochlorothiazide -12/06: Calcium within normal limits today -12/07: Calcium remains the same today, continue current management -12/08: Discussed with oncology, if potassium is elevated again would recommend 60 pamidronate #Hyponatremia -Possibly secondary to dehydration but cannot say definitively, patient additionally on hydrochlorothiazide which will be held - Will order serum osmole's - Check urine studies - TSH - Lipid profile - Monitor I's and O's - Trend BMPs -12/04: Patient actually has elevated serum osmolality with an osmolality of 324 but no hyperglycemia or hyperlipidemia therefore suspect this is either due to his kidney failure with uremia or could possibly pseudohyponatremia due to a paraproteinemia +/- HCTZ, serum and urine protein electrophoresis pending as well as kappa lambda light chains. Notably sodium has slowly up trended to 129 with fluids and cessation of HCTZ, will continue present management while further workup underway -12/05: Sodium of 128, seems to have stabilized, do suspect that this is at least in part due to renal disease with uremia, continue to monitor, continue to hold hydrochlorothiazide -12/06: Hyponatremia continues to remain stable with a sodium of 129, will not resume hydrochlorothiazide on discharge -12/07: Sodium is further improved to 131 today, patient had 2 L removed with dialysis, repeat a.m. -12/08: Sodium 132 today, continues to improve # Macrocytic anemia -12/04: Patient with hemoglobin 10.7 on presentation with no previous baseline seen in our system, this a.m. hemoglobin 7.9 which is significant drop but no evidence of ongoing bleeding, suspect the patient was significantly volume depleted/dehydrated and was hemoconcentrated especially given drop in all 3 cell lines. MCV is 98.6, will be ordering B12, iron panel, folate -12/05: Hemoglobin slightly lower today, in part likely due to dilution and blood draws, 7.2 this a.m.. Folate is technically within normal limits but on the low side so we will start folic acid but B12 within normal limits, iron and iron saturation within normal limits with elevated ferritin. 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 -12/06: Hemoglobin actually up to 7.7 today, continue to monitor -12/07: No evidence of blood loss, hemoglobin remaining stable, hemoglobin 7.9 today -12/08: Hemoglobin 7.2, has been fluctuating in the sevens, does not appear to have any acute blood loss #GERD -Continue PPI -12/04: Reportedly patient's been having significant reflux symptoms for the past year, takes omeprazole at home and has been taking nightly calcium based products for reflux, patient's reflux may be contributing to his nausea, will place on IV PPI twice daily, avoiding calcium based agents -12/05: Patient now on IV PPI every 12, avoiding calcium based agents, symptoms significantly improved -12/06: Doing very well on twice daily PPI, will likely need this on discharge -12/07: Has had significant improvement, currently reporting constipation but no upper GI symptoms -12/08: Still some poor p.o. intake, discussed protein shakes/meal supplements if patient does not want to eat to try to maintain nutrition #Hypertension -Will be holding valsartan/hydrochlorothiazide due to the above -12/04: Continue to hold valsartan/hydrochlorothiazide and monitor blood pressure, can consider alternative agent if necessary but will be careful to avoid hypotension -12/05: Hydralazine as needed if needed, continue to hold ARB and HCTZ -12/06: Patient on hydralazine as needed, would likely need to begin antihypertensive, will plan to do this after patient's procedure pending blood pressures -12/07: Amlodipine started, starting metoprolol as above -12/08: Metoprolol being uptitrated as above #L1 compression fracture - Patient scheduled for kyphoplasty Thursday - Denies taking any NSAIDs or pain medications - Supportive care -12/04: Continue pain control and supportive care -12/05: Did advise to cancel kyphoplasty appointment given patient still in the hospital and to hold off on rescheduling until we have more answers and a better idea of discharge -12/06: Will need follow-up with pain management upon discharge -12/07: Due to patient having multiple procedures he has not been able to consistently work with PT, will need PT reeval when able and prior to discharge as patient does not often get out of bed and concerns that he could have some difficulty with mobility -12/08: Did work with PT today, felt generally weak and tired #Type 2 diabetes mellitus -Glucose checks and sliding scale insulin - Had somewhat low glucose of 59 on presentation - Will decrease long-acting insulin - Holding sitagliptin and metformin -12/04: Glucose has actually remained low, will discontinue long-acting insulin altogether -12/05: Glucose has been more stable overnight, continue to hold long-acting insulin -12/06: Glucose 123 this a.m., hemoglobin A1c 6.4, will need to decrease patient's insulin regimen significantly on discharge to avoid hypoglycemia -12/07: Glucose maintaining in the low 100s, continue current management -12/08: Glucose 96 this a.m., has had fairly poor p.o. intake, continue to encourage increased intake Chronic medical problems and/or problems not being actively addressed during today's encounter: #Hypothyroidism -Continue Synthroid #DVT ppx: SCDs Claire Mazariegos MD Time spent in the patient's overall evaluation,decision-making process, review of diagnostic data, adjustment of management, discussion with other providers, nursing nursing and ancillary staff involved in patient's care documentation, 64 Minutes Charges/Coding Visit Charges Inpatient E&M: [address] [facility] H[facility] L3
--- NOTE | 2024-12-08 17:29 | ECHOD_ITS ---
Reason For Study Reason For Study: ATRIAL FIBRILLATION Procedure This was a 2D Doppler, Color Flow transthoracic echocardiogram. Myocardial strain analysis was performed in this exam to aid in the assessment of cardiac function. The patient was scanned supine. Exam performed portable in patient room. Left Ventricle Normal LV size. Mild concentric left ventricular hypertrophy. The global longitudinal strain = -13.4% (abnormal). The left ventricular ejection fraction is 55 %. Stage 1 diastolic dysfunction. Right Ventricle Normal right ventricle. Atria The left and right atria are normal. Mitral Valve Mild (1+) mitral valve insufficiency. Tricuspid Valve Mild (1+) tricuspid valve insufficiency. Right ventricular systolic pressure estimated to be 39 mmHg. Aortic Valve Trisinus/trileaflet aortic valve. Mild-Moderate (1-2+) aortic valve insufficiency. Pulmonic Valve The pulmonic valve is not well visualized. Great Vessels Normal sized aortic root. Pericardium/Pleural No pericardial effusion. MMode/2D Measurements & Calculations LVIDd: 4.6 cm IVSd: 1.3 cm LVOT diam: 2.0 cm LVIDs: 2.6 cm LVPWd: 1.0 cm LVOT area: 3.1 cm2 RVDd: 3.6 cm FS: 43.6 % asc Aorta Diam: 3.7 cm LAV(MOD-bp): 49.6 ml LVAd ap4: 17.6 cm2 LAV(MOD-bp) Indexed: 24.8 ml/m2 LVLd ap4: 7.7 cm LAV(MOD-sp2): 55.3 ml EDV(MOD-sp4): 35.8 ml LAV(MOD-sp4): 45.3 ml EDV(sp4-el): 34.2 ml LVAs ap4: 11.6 cm2 LVLs ap4: 6.9 cm ESV(MOD-sp4): 17.6 ml ESV(sp4-el): 16.7 ml EF(MOD-sp4): 51.0 % EF(sp4-el): 51.3 % LVAd ap2: 17.6 cm2 SV(MOD-sp4): 18.2 ml SV(MOD-sp2): 18.1 ml LVLd ap2: 7.6 cm SI(MOD-sp4): 9.1 ml/m2 SI(MOD-sp2): 9.0 ml/m2 EDV(MOD-sp2): 35.5 ml EDV(sp2-el): 34.7 ml LVAs ap2: 11.9 cm2 LVLs ap2: 7.1 cm ESV(MOD-sp2): 17.5 ml ESV(sp2-el): 17.0 ml EF(MOD-sp2): 50.8 % SV(sp4-el): 17.6 ml Ao sinus diam: 3.[address] Junction: 3.4 cm LA dimension(2D): 4.2 cm LA A4 area: 17.6 cm2 RA A4 area: 14.7 cm2 TAPSE: 1.5 cm Time Measurements MV dec time: 0.17 sec Doppler Measurements & Calculations MV E max mario: 82.4 cm/sec Lat Peak E' Mario: 13.3 cm/sec Med Peak E' Mario: 6.7 cm/sec MV A max mario: 76.1 cm/sec E/E' lat: 6.2 E/E' med: 12.2 MV E/A: 1.1 MV dec slope: 477.9 cm/sec2 Ao V2 max: 119.2 cm/sec LV V1 max: 100.1 cm/sec Ao max P.7 mmHg LV V1 max P.0 mmHg Ao V2 mean: 79.8 cm/sec LV V1 mean P.0 mmHg Ao mean P.0 mmHg LV V1 mean: 65.3 cm/sec Ao V2 VTI: 22.1 cm LV V1 VTI: 18.4 cm AV (velocity ratio): 0.84 MARIAMA(I,D): 2.6 cm2 MARIAMA(V,D): 2.6 cm2 SV(LVOT): 57.5 ml PA V2 max: 86.0 cm/sec TR max mario: 243.9 cm/sec TR max P.8 mmHg ECHO/Echo Complete Interpretation Summary Mild concentric left ventricular hypertrophy. The left ventricular ejection fraction is 55 %. The global longitudinal strain = -13.4% (abnormal). Stage 1 diastolic dysfunction. Mild (1+) mitral valve insufficiency. Mild (1+) tricuspid valve insufficiency. Right ventricular systolic pressure estimated to be 39 mmHg. Mild-Moderate (1-2+) aortic valve insufficiency. Ordering Physician: Claire Mazariegos Performed By: Janae Perdomo RDCS
--- NOTE | 2024-12-08 18:33 | RAD_ITS ---
PROCEDURE: CHEST 1 VIEW (PORTABLE) 12/08/2024 REASON FOR EXAM: INCREASED OXYGEN DEMANDS TECHNIQUE: Frontal view of the chest. COMPARISON: 12/06/2024. FINDINGS: Right chest infusion port. Hilar prominent consolidative opacities and vascular indistinctness favoring edema. Small bilateral pleural effusions. No acute osseous abnormalities. RAD/Chest 1 View (Portable) IMPRESSION: Pulmonary findings as above. Reading Location: [id number]
[2024-12-08] MEDS: Furosemide 20 MG/2 ML VIAL IV ×2 (19:00→22:44)
--- NOTE | 2024-12-08 19:01 | PCM.PN.REN ---
Subjective Subjective was sleepy this am. seen on HD Objective Data Objective Data Vital Signs: Vital Signs Temp Pulse Resp BP Pulse Ox O2 Del Method O2 Flow Rate 98.7 F 104 H 18 148/88 H 92 High Flow 8 12/08/24 18:06 12/08/24 18:06 12/08/24 18:06 12/08/24 18:06 12/08/24 18:53 12/08/24 18:53 12/08/24 18:53 Oxygen Flow Rate (L/min) 8 Oxygen Delivery Method High Flow Weight: 82.4 kg Body Mass Index (BMI) 24.5 Intake & Output: Intake and Output for Last 24 Hours 12/06/24 12/07/24 12/08/24 23:59 23:59 23:59 Intake Total 1797.2 / 2497.2 1365.2 / 1365.2 450.2 / 450.2 Output Total 1302 / 1602 3040 / 3040 250 / 250 Balance 495.2 / 895.2 -1674.8 / -1674.8 200.2 / 200.2 Medical Nutrition Assessment Dietitian: Malnutrition Criteria Met Start: 12/04/24 12:12 Freq: Status: Active Protocol: Document 12/04/24 12:12 SLA (Rec: 12/04/24 12:13 SLA [id number]) Nutrition Malnutrition Evidence of Yes Malnutrition Exists Malnutrition (severe Acute Illness/Injury ): Evidenced By Suboptimal Energy Intake (Severe),Weight Loss (Severe) Clinical Problem Acute Disease or Injury Related Malnutrition Etiology related to 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 Status Active Problem Recommendation Dietitian Will liberalize diet to Regular w/ glucerna shake tid Recommendations/ at meals - once po intake improves, can adjust to carb Changes controlled diet if indicated. Will continue to follow and monitor for changes in pt nutritional status and make additional rec as indicate. Lab / Micro Data 12/08/24 04:38 12/08/24 04:38 Labs: Laboratory Results - last 24 hr 12/03/24 20:12: Total Protein (PEP) 7.8, Globulin 4.9 H, Urine Total Protein 87.9, Urine Albumin 19.6, U Tplay-2-Eeuwzxyn 1.5, U Ltjwf-9-Domyzncz 4.2, U Beta Globulin 11.1, U Gamma Globulin 63.6, IgG 326 L, IgA 3265 H, IgM 11 L, Immunofixation Screen Comment H, Albumin (OMERO) 2.9, Albumin/Globulin (OMERO) 0.6 L, Acufv-1-Jioxigajc OMERO 0.3, Lxvbc-4-Iwitqtmxb OMERO 0.7, Beta-Globulins (OMERO) 3.6 H, Gamma Globulins (OMERO) 0.3 L, OMERO M-David Comment:, OMERO Comments Comment, Ur Immunofix PEP Note Comment 12/05/24 05:04: c-ANCA Antibody <1:20, Atypical p-ANCA <1:20, p-ANCA Antibody <1:20, Glomerular Base Memb Ab < 0.2, Complement C3 75 L, Complement C4 25, Free [place] LC, Quant 23.3 H, Free Lambda LC, Quant 1177.7 H, Free [place]/Lambda Ratio 0.02 L 12/07/24 21:26: POC Glucose 133 H 12/08/24 04:38: WBC 5.0, RBC 1.99 L, Hgb 7.2 L, Hct 20.4 L, MCV 102.5 H, MCH 36.2 H, MCHC 35.3, RDW Std Deviation 44.5 H, RDW Coeff of Scotty 12.0, Plt Count 110 L, MPV 10.0, Sodium 132 L, Potassium 4.1, Chloride 98, Carbon Dioxide 21.1, Anion Gap 13, BUN 71 H, Creatinine 6.19 H, Estim Creat Clear Calc 9.75 L*, Est GFR (MDRD) Non-Af 8 L, BUN/Creatinine Ratio 11.5, Glucose 125 H, Calcium 10.5 12/08/24 06:30: POC Glucose 124 H 12/08/24 11:30: POC Glucose 96 12/08/24 16:27: POC Glucose 110 H Micro: Microbiology 12/03/24 20:38 Urine, Catheterized Urine Culture - Final Culture exhibits no growth. Physical Exam Narrative no obvious distress no JVD s1s2 no murmurs Diminished breath sounds with faint expiratory wheezing. On O2 via nasal cannula abdomen soft, nontender no edema Assessment & Plan Assessment/Plan (1) Hypercalcemia: (2) Acute renal failure: PLAN: Baseline creatinine as of beginning of this year was around 1.4 or so. Admission creatinine more than 9. Monterroso indwelling without much urine output. Renal ultrasound pending Associated hypercalcemia recent spine related issues. Will check serum protein electrophoresis, kappa, lambda light chain assay. I will also send other serologies. He also takes Tums 1 a day due to acid reflux. I am not sure if that is the cause of hypercalcemia as well. So far PTH is suppressed. Continue IV fluids for now. If no significant recovery, may need a kidney biopsy. dw hospitalist 12/05/2024; SCr 8.56 on admission--> SCr 8.79 mg/dL today. Potassium and bicarb acceptable. Calcium 14.6 on admission, 11.5 today (continue holding valsartan/hydrochlorothiazide). Patient on IV fluids. Renal serologies pending. Urine output around 1.5 L yesterday (patient has Monterroso). Blood pressures acceptable. Though urine output has picked up renal function is slowly worsening and reviewed that with patient and his today. Reviewed with them that patient is quite possibly heading towards needing renal replacement therapy. Risks and benefits of dialysis explained. Dialysis in inpatient setting and outpatient setting also explained. Questions were answered. Patient is in agreement with moving forward with renal placement therapy. There is no urgent need for renal placement therapy today as potassium and bicarb acceptable and volume status appears compensated. He did state he would like to see how his labs look tomorrow but in agreement with starting hemodialysis if necessary. Recommend surgery consult for hemodialysis catheter placement. Discussed nephrology plan with patient and . Discussed nephrology plan with Dr. Mazariegos. Labs ordered for morning. Assessment and plan reviewed with Dr. Harding 12/06/2024; serum creatinine about the same today, 8.5 mg/dL, bicarb 20, potassium 4.2. Urine output yesterday 1.2 L. Calcium 10.9 today. Overnight patient developed difficulty breathing with wheezing, now on O2 nasal cannula. Can stop IV fluids. He is to have tunneled hemodialysis catheter placed today then will plan for dialysis afterwards and attempt small amount of fluid removal as patient/blood pressure tolerates. Renal serologies are pending. Discussed with patient today about kidney biopsy, risk and benefit of biopsy. Patient is in agreement with having kidney biopsy. Will place orders. Patient is not on any blood thinners. Continue to monitor for renal recovery. Discussed with case management, arrangements underway for outpatient hemodialysis at [facility] diagnosis DEANGELO. Assessment and plan reviewed with Dr. Harding 12/07/2024. Serologies are still pending. Significant protein gap. Hypercalcemia on admission, now better. Recent low back issues. Myeloma is possible. Will plan for kidney biopsy today. Dialysis today, dialysis tomorrow. Discussed with family bedside. 12/08/24. HD today. see orders. SPEP came back positive. K/L ratio skewed. possible myeloma. will call pathology for diagnosis later today. addendum. dw pathology. surprise, no myeloma. dense ATN. 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 needs hematology evaluation. multiple discussions with hospitalist, pathology
--- NOTE | 2024-12-08 19:17 | PCM.HOSP.N ---
Hospitalist Note Notified of pts increased O2 demands, most recent CXR queried some increased edema and he was subsequently dialyzed, today was dialyzed w/ no fluid removed however repeat cxr does appear to have increased edema, official read pending. Lasix 20mg IV x1 ordered, can consider further doses pending response, advised HOB elevated (was laying flat when I was in room this evening but wasn't in distress at that time). Pt hadn't reported any productive cough or infectious symptoms and no fever or elevated WBC to suggest new pneumonia. Also increased metoprolol dose today to help with rate control as pt seems to have increased SOB when rate elevated, was around 90-100 this evening when I evaluated and pt resting comfortably, is still in afib. Echo ordered for the AM after discussingn with family.
[2024-12-08 22:09] LABS: Allen Test Positive; Base Excess 1 mmol/L (-2 to +2); FI02 9.0; PO2 57 mmHG (75-100); SITE R Radial; SO2 92 % (95-99)
--- NOTE | 2024-12-08 22:28 | PCM.HOSP.N ---
Hospitalist Note Informed of continued increase of oxygen demands, pt now up to 9L [place] and being 90% p.ox. RT asking for consideration of Airvo use. Reviewed CXR obtained earlier this evening and prior documentation of primary. Per nrsg, pt did have documented voids from the 20mg furosemide IV, no change in LS. Additional order placed for furosemide 20mg IV x1 now, ABG and Airvo. HR96, RR20, BP161/80, T98.2f temporal. P.ox up to 92% on 70%FiO2 from Airvo. ABG results: pH 7.51, HCO3 23.6, O2 sat 92%, pCO2 29.6, pO2 57. Update 0030: pulse ox reading 98% on Airvo, urine output for additional 20mg furosemide IV was only 75ml per RN.
[2024-12-09] VITALS (50 sets, daily range): BP systolic 142–181; BP diastolic 68–94; PULSE 70–97; RESP 16–212; TEMP 36.1–36.6; O2SAT 86–99; BMI 23.3; BMI 22.4
[2024-12-09 00:36] LABS: Immature Reticulocyte Fraction 8.90 % (3.00-15.90); Platelet Count 115 K/mm3 (150-450); Reticulocyte Count 0.76 % (0.5-1.5)
--- NOTE | 2024-12-09 00:41 | CPS ---
Patient complained of heat on AIRVO, ORTHOTIST/PROSTHETIST turned down heat setting to lowest possible
[2024-12-09 05:48] LABS: Hematocrit 20.0 % (40-54); Hemoglobin 6.9 g/dL (13.0-16.5); Mean Corp Hgb Conc 34.5 g/dL (32-36); Mean Corpuscular Volume 104.7 fL (80-94); Mean Platelet Vol. 10.1 fl (6.2-12.0); Platelet Count 126 K/mm3 (150-450); RBC Distribution Width CV 12.1 % (11.6-14.6); RBC Distribution Width SD 46.1 fl (35.1-43.9); Red Blood Count 1.91 M/mm3 (4.6-6.2); White Blood Count 5.0 K/mm3 (4.4-11.0)
[2024-12-09 06:12] LABS: Anion Gap 12 (5-15); BUN 54 mg/dL (4-19); BUN/Creat Ratio 10.9 RATIO (10-20); Calcium,Total 10.7 mg/dL (7.6-11.0); Carbon Dioxide 23.9 mmol/L (21.0-32.0); Chloride 98 mmol/L (98-108); Estimated Creatinine Clearance 12.22 ml/min (50-250); Glucose 96 mg/dL (70-99); Magnesium 2.6 mg/dL (1.5-2.2); Potassium 3.8 mmol/L (3.3-5.1)
[2024-12-09 08:38] LABS: Pro- Brain NATRIURETIC PEPTIDE 25370 pg/mL (<=1800)
[2024-12-09] MEDS: 0.9% Normal Saline 1,000 ML IV.SOLN. 1000 ML OPERA.SITE (08:47)
--- NOTE | 2024-12-09 09:28 | NUR.TO.PHY ---
Dialysis Coordinator discussed HD treatment findings with Dr. Harding. Pt has exhibited IR tachycardia (HR >130bpm) during HD when fluid removal attempted. Pt has completed 2 HD treatments with similar results. Today, order for fluid removal only, to see if patient better tolerates fluid removal without attempted clearance. At this time, Pt scheduled for conventional HD with fluid removal on 12/10.
--- NOTE | 2024-12-09 09:51 | CT_ITS ---
PROCEDURE: BIOPSY/INJ OR NEEDLE PLACEMENT 12/09/2024 REASON FOR EXAM: SUSPECT MYELOMA TECHNIQUE: Procedure Code: CTBX Modality: CT Procedure: BIOPSY/INJ OR NEEDLE PLACEMENT One or more dose reduction techniques were used (e.g., Automated exposure control, adjustment of the mA and/or kV according to patient size, use of iterative reconstruction technique. RADIATION DOSE SUMMARY: DLP: 635.23 mGycm COMPARISON: None. FINDINGS: Conscious sedation was employed for this procedure, with intravenous administration of a total of 1 mg Versed and 25 mcg fentanyl. Procedure: Following informed consent, and using standard sterile technique, a CT-guided right iliac bone marrow biopsy was performed. 2% lidocaine local anesthesia was followed by placement of a core biopsy device, with non heparinized and heparinized fluid removed followed by a small bone marrow sample. No complication was encountered, the patient left the department in good condition without significant complaint. CT/Biopsy/Inj or Needle Placement IMPRESSION: Successful right iliac bone marrow biopsy. Pathology results pending. Reading Location: [place] [address]
--- NOTE | 2024-12-09 10:03 | CASEMGMT ---
BUCK SHETTY received called from Shellie at [facility]. Patient has confirmed chair time of TTS at 1120, patient will need to arrive at 1100 for first appointment. BUCK SHETYT update Shellie that patient will not be discharging today and will likely be here through the weekend at patient is now on Airvo. CM to follow up with [facility] with anticipated discharge. CM will continue to follow this patient and plan for a safe discharge.
[2024-12-09 11:02] LABS: Hematocrit 23.6 % (40-54); Hemoglobin 8.2 g/dL (13.0-16.5); Immature Granulocytes Count 0.020 X10^3/uL (0.0-0.0); Mean Corp Hgb Conc 34.7 g/dL (32-36); Mean Corpuscular Volume 104.4 fL (80-94); Mean Platelet Vol. 9.9 fl (6.2-12.0); NRBC Flagged by Analyzer 0 % (0-5); Platelet Count 149 K/mm3 (150-450); RBC Distribution Width CV 12.1 % (11.6-14.6); RBC Distribution Width SD 46.1 fl (35.1-43.9); Red Blood Count 2.26 M/mm3 (4.6-6.2); White Blood Count 5.8 K/mm3 (4.4-11.0)
[2024-12-09 11:13] LABS: Partial Thromboplast Time 28.0 Seconds (24.1-36.2); Prothrombin Time (Protime)PT. 15.0 SECONDS (11.7-14.9)
[2024-12-09] MEDS: 0.9% Saline Lock 10 ML Syringe IV ×3 (11:41→14:07)
--- NOTE | 2024-12-09 11:56 | PN.HOSP_ITS ---
Reason for Visit Chief Complaint: N/V, generalized weakness Subjective Subjective Patient was short of breath overnight was transition to Airvo which did help, today he has been decreased back to 4 L of nasal cannula with good sats after having 4 L taken off during dialysis Objective Data Objective Data Vital Signs: Vital Signs Temp Pulse Resp BP Pulse Ox O2 Del Method O2 Flow Rate 97.8 F 81 17 142/79 H 97 Nasal Cannula 4 12/09/24 11:35 12/09/24 11:35 12/09/24 11:35 12/09/24 11:35 12/09/24 11:49 12/09/24 11:49 12/09/24 11:49 FiO2 58 12/09/24 10:00 Oxygen Flow Rate (L/min) 4 Oxygen Delivery Method Nasal Cannula Weight: 75.2 kg Body Mass Index (BMI) 22.4 Intake & Output: Intake and Output for Last 24 Hours 12/07/24 12/08/24 12/09/24 23:59 23:59 23:59 Intake Total 1365.2 / 1365.2 550.2 / 550.2 Output Total 3040 / 3040 775 / 775 4300 / 4300 Balance -1674.8 / -1674.8 -224.8 / -224.8 -4300 / -4300 Medical Nutrition Assessment Dietitian: Malnutrition Criteria Met Start: 12/04/24 12:12 Freq: Status: Active Protocol: Document 12/04/24 12:12 SLA (Rec: 12/04/24 12:13 SLA 10..25.7) Nutrition Malnutrition Evidence of Yes Malnutrition Exists Malnutrition (severe Acute Illness/Injury ): Evidenced By Suboptimal Energy Intake (Severe),Weight Loss (Severe) Clinical Problem Acute Disease or Injury Related Malnutrition Etiology related to issues w/ nausea 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 Status Active Problem Recommendation Dietitian Will liberalize diet to Regular w/ glucerna shake tid Recommendations/ at meals - once po intake improves, can adjust to carb Changes controlled diet if indicated. Will continue to follow and monitor for changes in pt nutritional status and make additional rec as indicate. Lab / Micro Data 12/09/24 10:45 12/09/24 05:23 Labs: Laboratory Results - last 24 hr 12/08/24 04:38: Retic Count 0.76, Immature Retic Fraction 8.90, Retic Hgb Equivalent 39.1 H 12/08/24 11:30: POC Glucose 96 12/08/24 16:27: POC Glucose 110 H 12/08/24 21:45: POC Glucose 121 H 12/09/24 05:23: WBC 5.0, RBC 1.91 L, Hgb 6.9 L, Hct 20.0 L, MCV 104.7 H, MCH 36.1 H, MCHC 34.5, RDW Std Deviation 46.1 H, RDW Coeff of Scotty 12.1, Plt Count 126 L, MPV 10.1, Sodium 134, Potassium 3.8, Chloride 98, Carbon Dioxide 23.9, Anion Gap 12, BUN 54 H, Creatinine 4.94 H, Estim Creat Clear Calc 12.22 L, Est GFR (MDRD) Non-Af 11 L, BUN/Creatinine Ratio 10.9, Glucose 96, Calcium 10.7, M agnesium 2.6 H, [place] [address] H 12/09/24 06:19: POC Glucose 94 12/09/24 09:35: Blood Type O POSITIVE, Antibody Screen NEGATIVE, Crossmatch See Detail 12/09/24 10:45: WBC 5.8, RBC 2.26 L, Hgb 8.2 L, Hct 23.6 L, MCV 104.4 H, MCH 36.3 H, MCHC 34.7, RDW Std Deviation 46.1 H, RDW Coeff of Scotty 12.1, Plt Count 149 L, MPV 9.9, Immature Gran % (Auto) 0.300, Neut % (Auto) 68.0, Lymph % (Auto) 18.0 L, [place] % (Auto) 12.5 H, Eos % (Auto) 1.0, Baso % (Auto) 0.2, Absolute Neuts (auto) 4.0, Absolute Lymphs (auto) 1.05, Nucleated RBC % 0, PT 15.0 H, INR 1.2, APTT 28.0 Micro: Microbiology 12/03/24 20:38 Urine, Catheterized Urine Culture - Final Culture exhibits no growth. ABG Data ABG results: ABG 12/08/24 22:06 Specimen Type ART Sample Site R Radial pH 7.51 H Bicarbonate Actual 23.6 Total CO2 25 Base Excess 1 O2 Saturation 92 L O2 % 9.0 ABG pCO2 29.6 L ABG pO2 57 L Norman Test Positive O2 Delivery Device HFNC Vent Mode Not entered Radiography Diagnostic Testing: Radiology Impression Bone Osseous Survey 12/08/24 14:45 IMPRESSION: 1. Subtle round lucencies within the bilateral humeri and right radius, concerning for underlying malignancy. 2. Questionable moth-eaten appearance of the inferior aspects of the bony pelvis could be due to summation of shadows and overlying structures, however an infiltrative process can not be excluded. Reading Location: [facility] Chest X-Ray 12/08/24 18:33 IMPRESSION: Pulmonary findings as above. Reading Location: [address] Physical Exam Narrative General: Alert, appears tired HEENT: Atraumatic, normocephalic Eyes: extraocular movements grossly intact Neck: Supple Respiratory: Slight increased respiratory effort Cardiovascular: Back in regular rhythm Extremities: Moving all extremities Neuro: No overt focal neurological deficits Psych: Cooperative Assessment & Plan Assessment/Plan (1) Hypercalcemia: (2) Acute renal failure: PLAN: Plan #Acute kidney failure-concern for multiple myeloma -Patient with a creatinine around 1.5 at baseline with most recent value 9 months ago being 1.5 to - Presenting now with a creatinine of 8.56 - Bicarb 19.5 - Patient not hyperkalemic - Vitally stable and not volume overloaded - Patient alert, no seizure activity, confusion, altered mental status - Presently does not seem to have any indications for emergent dialysis - Suspect that patient's nausea and vomiting with very poor p.o. intake on top of continuing to take his valsartan/hydrochlorothiazide caused or largely contributed to his worsening renal failure - Patient reportedly had been urinating at home and even urinated this morning however in the ED unable to urinate and has 280 on bladder scan - Unclear if there has been an obstructive component to this as well given patient's report of urinating okay prior to coming in - Will have Monterroso catheter placed given patient reporting he is unable to urinate in the ED and bladder scan shows 280 - IV fluids - Will check UA given reports of suprapubic discomfort - Check urine studies - Kidney and bladder ultrasound -Check CK - Discussed with nephrology, nephrology consult placed -12/04: Despite sodium and calcium improving, kidney function has remained about the same, BUN this a.m. 112 with a creatinine of 8.49. UA with protein and occult blood, rare bacteria and does not seem UA is indicative of infection. FEUrea is 61.8 suggesting intrinsic renal disease. SPEP and UPEP pending, nephrology consulted, kidney and bladder ultrasound ordered, Monterroso catheter in place, patient has had 1300 output since admission yesterday evening. [place] lambda light chains ordered in addition to protein electrophoresis. Discussed with nephrology. -12/05: BUN 107 with a creatinine slightly worse of 8.79, still making urine, nephrology following, lab workup pending, kidney and bladder ultrasound is ordered and pending -12/06: Kidney and bladder ultrasound normal, kidney function virtually unchanged since presentation, patient for tunneled dialysis catheter today per nephrology recommendation to begin dialysis, discussed with nephrology, patient also for kidney biopsy tomorrow -12/07: Patient had dialysis today, 2 L taken off and tolerated that well, patient for biopsy today -12/08: Patient's free kappa/lambda ratio 0.02 and SPEP results concerning for possible multiple myeloma. Discussed with Dr. King with hematology/oncology. Case reviewed, given this is suspicious for multiple myeloma it was recommended to get a skeletal survey and a bone marrow biopsy. Discussed with patient family at bedside and patient agreeable. These orders have been placed. Patient will need to follow-up closely with Dr. King next week in the office if he is discharged over the weekend though currently unclear when patient will be ready for discharge. Renal biopsy pending, did have dialysis again today with no fluid taken off. -12/09: Patient skeletal survey with subtle round lucencies within bilateral humeri and right radius and questionable moth-eaten appearance of inferior aspects of bony pelvis which could be due to to summation of shadows and overlying structures however infiltrative process cannot be excluded. Preliminary pathology also concerning for lytes chains/myeloma. Discussed again with hematology, will move forward with biopsy and patient is scheduled to tentatively follow with him in the office next if results are available to work on/discussed treatment. Did have dialysis today with 4 L off, will likely have dialysis again tomorrow. Discussed with nephrology and hematology # Irregular heart beat-A-fib with RVR -12/07: Patient notes he had an ablation 20 years ago for A-fib and has not had a problem since, on telemetry seems that he was going in and out of a fast rate, looks like it is likely fib but has been unable to be obtained on twelve-lead. Starting patient on metoprolol, first dialysis today as well and holding albuterol treatments, recommendation may have led to or exacerbated underlying A-fib if patient continues to have episodes despite dialysis, metoprolol, and holding albuterol will need to consider risks and benefits of anticoagulation on discharge -12/08: Patient intermittently with A-fib with RVR, adjusting metoprolol dosing, did convert temporarily with IV metoprolol earlier today, will continue to adjust medications. Did have TSH on presentation that was 0.591 -12/09: With 4 L of fluid removed heart rate improved and patient appears to be back in sinus rhythm, awaiting echocardiogram # Acute hypoxic respiratory failure secondary to fluid overload from renal failure -12/08: Patient's shortness of breath seems to worsen with elevated heart rates and improve when he is rate controlled more in sinus rhythm, adjusting metoprolol to achieve better control, TSH within normal limits. Did have chest x-ray on 12/06 that showed possible moderate interstitial pulmonary edema however patient was subsequently dialyzed with 2 L off but did not seem to significantly improve respiratory status, had repeat chest x-ray with increased O2 needs which did also show edema and was given IV Lasix but with suboptimal output -12/09: Patient overnight required Airvo and was in respiratory distress, chest x-ray showed increased edema and he was given IV Lasix, did have some improvement but suboptimal output, today had 4 L out with dialysis and is now down to 4 L nasal cannula with good saturations and significantly improved breathing. Awaiting echocardiogram # Hypercalcemia -Unclear if this is secondary to significant dehydration or if this could be a primary process associated with his renal failure and dehydration - Will hydrate with normal saline - Will check PTH and vitamin D - will check Phos - If no or minimal improvement can consider calcitonin and/or bisphosphonates - Will also check serum and urine protein electrophoresis given high calcium with kidney failure, high total protein and globulin, anemia and recent L1 fracture/bone pain in addition to generalized weakness - Chest x-ray also ordered to evaluate for any possible lesions -12/04: Improving with hydration, patient's Phos is high which is likely secondary to his renal failure, notably vitamin D is within normal limits at 43 and PTH is only 15. Suspect that patient's hypercalcemia is largely due to dehydration in addition to his hydrochlorothiazide in addition to multiple calcium based medications being taken daily for reflux but workup still pending. Protein electrophoresis pending and kappa lambda light chains ordered -12/05: Still slightly elevated at 11.5 but has consistently continued to improve, continue IV fluids and avoiding calcium based agents, continue to hold hydrochlorothiazide -12/06: Calcium within normal limits today -12/07: Calcium remains the same today, continue current management -12/08: Discussed with oncology, if potassium is elevated again would recommend 60 pamidronate -12/09: No present indication for bisphosphonate #Hyponatremia -Possibly secondary to dehydration but cannot say definitively, patient additionally on hydrochlorothiazide which will be held - Will order serum osmole's - Check urine studies - TSH - Lipid profile - Monitor I's and O's - Trend BMPs -12/04: Patient actually has elevated serum osmolality with an osmolality of 324 but no hyperglycemia or hyperlipidemia therefore suspect this is either due to his kidney failure with uremia or could possibly pseudohyponatremia due to a paraproteinemia +/- HCTZ, serum and urine protein electrophoresis pending as well as kappa lambda light chains. Notably sodium has slowly up trended to 129 with fluids and cessation of HCTZ, will continue present management while further workup underway -12/05: Sodium of 128, seems to have stabilized, do suspect that this is at least in part due to renal disease with uremia, continue to monitor, continue to hold hydrochlorothiazide -12/06: Hyponatremia continues to remain stable with a sodium of 129, will not resume hydrochlorothiazide on discharge -12/07: Sodium is further improved to 131 today, patient had 2 L removed with dialysis, repeat a.m. -12/08: Sodium 132 today, continues to improve -12/09: Sodium has actually normalized today with dialysis # Macrocytic anemia -12/04: Patient with hemoglobin 10.7 on presentation with no previous baseline seen in our system, this a.m. hemoglobin 7.9 which is significant drop but no evidence of ongoing bleeding, suspect the patient was significantly volume depleted/dehydrated and was hemoconcentrated especially given drop in all 3 cell lines. MCV is 98.6, will be ordering B12, iron panel, folate -12/05: Hemoglobin slightly lower today, in part likely due to dilution and blood draws, 7.2 this a.m.. Folate is technically within normal limits but on the low side so we will start folic acid but B12 within normal limits, iron and iron saturation within normal limits with elevated ferritin. 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 -12/06: Hemoglobin actually up to 7.7 today, continue to monitor -12/07: No evidence of blood loss, hemoglobin remaining stable, hemoglobin 7.9 today -12/08: Hemoglobin 7.2, has been fluctuating in the sevens, does not appear to have any acute blood loss -12/09: Patient had a.m. hemoglobin of 6.9 however before blood could be given he had dialysis and repeat hemoglobin showed a hemoglobin of 8.5 so will not proceed with transfusion #GERD -Continue PPI -12/04: Reportedly patient's been having significant reflux symptoms for the past year, takes omeprazole at home and has been taking nightly calcium based products for reflux, patient's reflux may be contributing to his nausea, will place on IV PPI twice daily, avoiding calcium based agents -12/05: Patient now on IV PPI every 12, avoiding calcium based agents, symptoms significantly improved -12/06: Doing very well on twice daily PPI, will likely need this on discharge -12/07: Has had significant improvement, currently reporting constipation but no upper GI symptoms -12/08: Still some poor p.o. intake, discussed protein shakes/meal supplements if patient does not want to eat to try to maintain nutrition -12/09: Started on Remeron to try to improve appetite #Hypertension -Will be holding valsartan/hydrochlorothiazide due to the above -12/04: Continue to hold valsartan/hydrochlorothiazide and monitor blood pressure, can consider alternative agent if necessary but will be careful to avoid hypotension -12/05: Hydralazine as needed if needed, continue to hold ARB and HCTZ -12/06: Patient on hydralazine as needed, would likely need to begin antihypertensive, will plan to do this after patient's procedure pending blood pressures -12/07: Amlodipine started, starting metoprolol as above -12/08: Metoprolol being uptitrated as above -12/09: On metoprolol and amlodipine #L1 compression fracture - Patient scheduled for kyphoplasty Thursday - Denies taking any NSAIDs or pain medications - Supportive care -12/04: Continue pain control and supportive care -12/05: Did advise to cancel kyphoplasty appointment given patient still in the hospital and to hold off on rescheduling until we have more answers and a better idea of discharge -12/06: Will need follow-up with pain management upon discharge -12/07: Due to patient having multiple procedures he has not been able to consistently work with PT, will need PT reeval when able and prior to discharge as patient does not often get out of bed and concerns that he could have some difficulty with mobility -12/08: Did work with PT today, felt generally weak and tired -12/09: Will continue to encourage up to chair and mobilization #Type 2 diabetes mellitus -Glucose checks and sliding scale insulin - Had somewhat low glucose of 59 on presentation - Will decrease long-acting insulin - Holding sitagliptin and metformin -12/04: Glucose has actually remained low, will discontinue long-acting insulin altogether -12/05: Glucose has been more stable overnight, continue to hold long-acting insulin -12/06: Glucose 123 this a.m., hemoglobin A1c 6.4, will need to decrease patient's insulin regimen significantly on discharge to avoid hypoglycemia -12/07: Glucose maintaining in the low 100s, continue current management -12/08: Glucose 96 this a.m., has had fairly poor p.o. intake, continue to encourage increased intake -12/09: A.m. glucose 94 this a.m., started on Remeron to try to improve appetite Chronic medical problems and/or problems not being actively addressed during today's encounter: #Hypothyroidism -Continue Synthroid #DVT ppx: SCDs Claire Mazariegos MD Charges/Coding Visit Charges Inpatient E&M: 11167 Subs Hosp L3
[2024-12-09] MEDS: Midazolam 2 MG/2 ML Syringe IV (12:32)
--- NOTE | 2024-12-09 12:35 | PN.RENAL_ITS ---
Subjective Subjective Overnight events noted. Had respiratory distress, currently on high flow nasal cannula. Chest x-ray looks pretty wet. Did not tolerate fluid removal yesterday. Was mostly clearance. Objective Data Objective Data Vital Signs: Vital Signs Temp Pulse Resp BP Pulse Ox O2 Del Method O2 Flow Rate 97.8 F 81 17 142/79 H 97 Nasal Cannula 4 12/09/24 11:35 12/09/24 11:35 12/09/24 11:35 12/09/24 11:35 12/09/24 11:49 12/09/24 11:49 12/09/24 11:49 FiO2 58 12/09/24 10:00 Oxygen Flow Rate (L/min) 4 Oxygen Delivery Method Nasal Cannula Weight: 75.2 kg Body Mass Index (BMI) 22.4 Intake & Output: Intake and Output for Last 24 Hours 12/07/24 12/08/24 12/09/24 23:59 23:59 23:59 Intake Total 1365.2 / 1365.2 550.2 / 550.2 0 / 0 Output Total 3040 / 3040 775 / 775 4300 / 4300 Balance -1674.8 / -1674.8 -224.8 / -224.8 -4300 / -4300 Medical Nutrition Assessment Dietitian: Malnutrition Criteria Met Start: 12/04/24 12:12 Freq: Status: Active Protocol: Document 12/04/24 12:12 SLA (Rec: 12/04/24 12:13 SLA [email or web address]) Nutrition Malnutrition Evidence of Yes Malnutrition Exists Malnutrition (severe Acute Illness/Injury ): Evidenced By Suboptimal Energy Intake (Severe),Weight Loss (Severe) Clinical Problem Acute Disease or Injury Related Malnutrition Etiology 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 Status Active Problem Recommendation Dietitian Will liberalize diet to Regular w/ glucerna shake tid Recommendations/ at meals - once po intake improves, can adjust to carb Changes controlled diet if indicated. Will continue to follow and monitor for changes in pt nutritional status and make additional rec as indicate. Lab / Micro Data 12/09/24 10:45 12/09/24 05:23 Labs: Laboratory Results - last 24 hr 12/08/24 04:38: Retic Count 0.76, Immature Retic Fraction 8.90, Retic Hgb Equivalent 39.1 H 12/08/24 16:27: POC Glucose 110 H 12/08/24 21:45: POC Glucose 121 H 12/09/24 05:23: WBC 5.0, RBC 1.91 L, Hgb 6.9 L, Hct 20.0 L, MCV 104.7 H, MCH 36.1 H, MCHC 34.5, RDW Std Deviation 46.1 H, RDW Coeff of Scotty 12.1, Plt Count 126 L, MPV 10.1, Sodium 134, Potassium 3.8, Chloride 98, Carbon Dioxide 23.9, Anion Gap 12, BUN 54 H, Creatinine 4.94 H, Estim Creat Clear Calc 12.22 L, Est GFR (MDRD) Non-Af 11 L, BUN/Creatinine Ratio 10.9, Glucose 96, Calcium 10.7, M agnesium 2.6 H, [place] [address] H 12/09/24 06:19: POC Glucose 94 12/09/24 09:35: Blood Type O POSITIVE, Antibody Screen NEGATIVE, Crossmatch See Detail 12/09/24 10:45: WBC 5.8, RBC 2.26 L, Hgb 8.2 L, Hct 23.6 L, MCV 104.4 H, MCH 36.3 H, MCHC 34.7, RDW Std Deviation 46.1 H, RDW Coeff of Scotty 12.1, Plt Count 149 L, MPV 9.9, Immature Gran % (Auto) 0.300, Neut % (Auto) 68.0, Lymph % (Auto) 18.0 L, [place] % (Auto) 12.5 H, Eos % (Auto) 1.0, Baso % (Auto) 0.2, Absolute Neuts (auto) 4.0, Absolute Lymphs (auto) 1.05, Nucleated RBC % 0, PT 15.0 H, INR 1.2, APTT 28.0 Micro: Microbiology 12/03/24 20:38 Urine, Catheterized Urine Culture - Final Culture exhibits no growth. ABG Data ABG results: ABG 12/08/24 22:06 Specimen Type ART Sample Site R Radial pH 7.51 H Bicarbonate Actual 23.6 Total CO2 25 Base Excess 1 O2 Saturation 92 L O2 % 9.0 ABG pCO2 29.6 L ABG pO2 57 L [place] Test Positive O2 Delivery Device HFNC Vent Mode Not entered Radiography Diagnostic Testing: Radiology Impression Bone Osseous Survey 12/08/24 14:45 IMPRESSION: 1. Subtle round lucencies within the bilateral humeri and right radius, concerning for underlying malignancy. 2. Questionable moth-eaten appearance of the inferior aspects of the bony pelvis could be due to summation of shadows and overlying structures, however an infiltrative process can not be excluded. Reading Location: [facility] Chest X-Ray 12/08/24 18:33 IMPRESSION: Pulmonary findings as above. Reading Location: [address] Physical Exam Narrative no obvious distress no JVD s1s2 no murmurs Diminished breath sounds with faint expiratory wheezing. On O2 via nasal cannula abdomen soft, nontender no edema Assessment & Plan Assessment/Plan (1) Hypercalcemia: (2) Acute renal failure: PLAN: Baseline creatinine as of beginning of this year was around 1.4 or so. Admission creatinine more than 9. Monterroso indwelling without much urine output. Renal ultrasound pending Associated hypercalcemia recent spine related issues. Will check serum protein electrophoresis, kappa, lambda light chain assay. I will also send other serologies. He also takes Tums 1 a day due to acid reflux. I am not sure if that is the cause of hypercalcemia as well. So far PTH is suppressed. Continue IV fluids for now. If no significant recovery, may need a kidney biopsy. dw hospitalist 12/05/2024; SCr 8.56 on admission--> SCr 8.79 mg/dL today. Potassium and bicarb acceptable. Calcium 14.6 on admission, 11.5 today (continue holding valsartan/hydrochlorothiazide). Patient on IV fluids. Renal serologies pending. Urine output around 1.5 L yesterday (patient has Monterroso). Blood pressures acceptable. Though urine output has picked up renal function is slowly worsening and reviewed that with patient and his today. Reviewed with them that patient is quite possibly heading towards needing renal replacement therapy. Risks and benefits of dialysis explained. Dialysis in inpatient setting and outpatient setting also explained. Questions were answered. Patient is in agreement with moving forward with renal placement therapy. There is no urgent need for renal placement therapy today as potassium and bicarb acceptable and volume status appears compensated. He did state he would like to see how his labs look tomorrow but in agreement with starting hemodialysis if necessary. Recommend surgery consult for hemodialysis catheter placement. Discussed nephrology plan with patient and . Discussed nephrology plan with Dr. Mazariegos. Labs ordered for morning. Assessment and plan reviewed with Dr. Harding 12/06/2024; serum creatinine about the same today, 8.5 mg/dL, bicarb 20, potassium 4.2. Urine output yesterday 1.2 L. Calcium 10.9 today. Overnight patient developed difficulty breathing with wheezing, now on O2 nasal cannula. Can stop IV fluids. He is to have tunneled hemodialysis catheter placed today then will plan for dialysis afterwards and attempt small amount of fluid removal as patient/blood pressure tolerates. Renal serologies are pending. Discussed with patient today about kidney biopsy, risk and benefit of biopsy. Patient is in agreement with having kidney biopsy. Will place orders. Patient is not on any blood thinners. Continue to monitor for renal recovery. Discussed with case management, arrangements underway for outpatient hemodialysis at [facility] diagnosis DEANGELO. Assessment and plan reviewed with Dr. Harding 12/07/2024. Serologies are still pending. Significant protein gap. Hypercalcemia on admission, now better. Recent low back issues. Myeloma is possible. Will plan for kidney biopsy today. Dialysis today, dialysis tomorrow. Discussed with family bedside. 12/08/24. HD today. see orders. SPEP came back positive. K/L ratio skewed. possible myeloma. will call pathology for diagnosis later today. addendum. dw pathology. surprise, no myeloma. dense ATN. 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 needs hematology evaluation. multiple discussions with hospitalist, pathology 12/09/2024. Isolated UF today mostly for fluid removal. Serum protein electrophoresis with IgA and heavy chain monoclonality. Discussed with pathology at [facility] again today. 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 Bone scan done overnight showed osteolytic lesions, again consistent with multiple myeloma. Can send a serum viscosity. Discussed with hospitalist. UF today, likely dialysis tomorrow. Oncology consulted. Bone marrow biopsy ordered today. Discussed with family at bedside. All questions answered.
[2024-12-09] MEDS: fentaNYL 100 MCG/2 ML Ampul IV (12:50)
[2024-12-09] MEDS: Lidocaine 2% (20 ml mdv) 20 ML Vial INFILT (12:53)
[2024-12-09 13:41] LABS: Pathology Sent to OSU SEE PATHOLOGY REPORT
[2024-12-09] MEDS: Pantoprazole Sodium 40 MG in 0.9% Normal Saline (100mL MB+) 100 ML 300 MG IV ×2 (14:07→21:08)
[2024-12-09] MEDS: Polyethylene Glycol 3350 17 GM PACKET 34 GM PO (14:12)
[2024-12-09] MEDS: Senna/Docusate Sodium 1 Tablet 2 TABLET PO ×2 (14:12→21:10)
[2024-12-09] MEDS: Lidocaine 5% Patch 1 PATCH TOPICAL (14:19)
[2024-12-09] MEDS: Folic Acid 1 MG in 0.9% Normal Saline (50mL Bag) 50 ML 200 MG IV (15:08)
[2024-12-10] VITALS (24 sets, daily range): BP systolic 112–178; BP diastolic 65–91; PULSE 88–105; RESP 14–20; TEMP 36.2–36.4; O2SAT 88–98; BMI 23.9; BMI 23.2
[2024-12-10 06:23] LABS: Hematocrit 19.9 % (40-54); Hemoglobin 7.2 g/dL (13.0-16.5); Immature Granulocytes Count 0.030 X10^3/uL (0.0-0.0); Mean Corp Hgb Conc 36.2 g/dL (32-36); Mean Corpuscular Volume 101.0 fL (80-94); Mean Platelet Vol. 10.0 fl (6.2-12.0); NRBC Flagged by Analyzer 0 % (0-5); Platelet Count 147 K/mm3 (150-450); RBC Distribution Width CV 11.9 % (11.6-14.6); RBC Distribution Width SD 43.4 fl (35.1-43.9); Red Blood Count 1.97 M/mm3 (4.6-6.2); White Blood Count 4.8 K/mm3 (4.4-11.0)
[2024-12-10 06:53] LABS: Anion Gap 14 (5-15); BUN 72 mg/dL (4-19); BUN/Creat Ratio 12.0 RATIO (10-20); Calcium,Total 10.8 mg/dL (7.6-11.0); Carbon Dioxide 21.1 mmol/L (21.0-32.0); Chloride 96 mmol/L (98-108); Estimated Creatinine Clearance 10.01 ml/min (50-250); Glucose 135 mg/dL (70-99); Potassium 3.6 mmol/L (3.3-5.1)
[2024-12-10] MEDS: 0.9% Saline Lock 10 ML Syringe IV ×2 (08:27→21:49)
[2024-12-10] MEDS: PureFlow B 2K Dialysis Soln 1 BAG 6 BAG PF (08:27)
[2024-12-10] MEDS: 0.9% Normal Saline 1,000 ML IV.SOLN. 1000 ML OPERA.SITE (08:27)
--- NOTE | 2024-12-10 10:03 | PCM.PN.HOSP ---
Subjective Subjective Feeling better, down to 2 L nasal cannula. Breathing much easier today Objective Data Objective Data Vital Signs: Vital Signs Temp Pulse Resp BP Pulse Ox O2 Del Method O2 Flow Rate 97.4 F L 94 16 175/91 H 94 Nasal Cannula 2 12/10/24 09:30 12/10/24 09:30 12/10/24 09:30 12/10/24 09:30 12/10/24 09:30 12/10/24 09:30 12/10/24 09:30 FiO2 58 12/09/24 10:00 Oxygen Flow Rate (L/min) 2 Oxygen Delivery Method Nasal Cannula Weight: 176 lb 12.972 oz Body Mass Index (BMI) 23.9 Intake & Output: Intake and Output for Last 24 Hours 12/09/24 12/10/24 12/11/24 03:59 03:59 03:59 Intake Total 550.2 / 550.2 1030.2 / 1030.2 200 / 200 Output Total 775 / 775 4600 / 4600 50 / 50 Balance -224.8 / -224.8 -3569.8 / -3569.8 150 / 150 Medical Nutrition Assessment Dietitian: Malnutrition Criteria Met Start: 12/04/24 12:12 Freq: Status: Active Protocol: Document 12/04/24 12:12 SLA (Rec: 12/04/24 12:13 SLA [email or web address]) Nutrition Malnutrition Evidence of Yes Malnutrition Exists Malnutrition (severe Acute Illness/Injury ): Evidenced By Suboptimal Energy Intake (Severe),Weight Loss (Severe) Clinical Problem Acute Disease or Injury Related Malnutrition Etiology related to issues 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 Status Active Problem Recommendation Dietitian Will liberalize diet to Regular w/ glucerna shake tid Recommendations/ at meals - once po intake improves, can adjust to carb Changes controlled diet if indicated. Will continue to follow and monitor for changes in pt nutritional status and make additional rec as indicate. Lab / Micro Data 12/10/24 06:04 12/10/24 06:04 Labs: Laboratory Results - last 24 hr 12/09/24 09:35: Blood Type O POSITIVE, Antibody Screen NEGATIVE, Crossmatch See Detail 10/10/25 10:45: WBC 5.8, RBC 2.26 L, Hgb 8.2 L, Hct 23.6 L, MCV 104.4 H, MCH 36.3 H, MCHC 34.7, RDW Std Deviation 46.1 H, RDW Coeff of Scotty 12.1, Plt Count 149 L, MPV 9.9, Immature Gran % (Auto) 0.300, Neut % (Auto) 68.0, Lymph % (Auto) 18.0 L, [place] % (Auto) 12.5 H, Eos % (Auto) 1.0, Baso % (Auto) 0.2, Absolute Neuts (auto) 4.0, Absolute Lymphs (auto) 1.05, Nucleated RBC % 0, PT 15.0 H, INR 1.2, APTT 28.0 12/09/24 14:09: POC Glucose 84 12/09/24 16:41: POC Glucose 100 12/09/24 21:02: POC Glucose 206 H 12/10/24 06:04: WBC 4.8, RBC 1.97 L, Hgb 7.2 L, Hct 19.9 L, MCV 101.0 H, MCH 36.5 H, MCHC 36.2 H, RDW Std Deviation 43.4, RDW Coeff of Scotty 11.9, Plt Count 147 L, MPV 10.0, Immature Gran % (Auto) 0.600, Neut % (Auto) 65.6, Lymph % (Auto) 19.1, [place] % (Auto) 12.6 H, Eos % (Auto) 1.9, Baso % (Auto) 0.2, Absolute Neuts (auto) 3.1, Absolute Lymphs (auto) 0.91, Nucleated RBC % 0, Sodium 131 L, Potassium 3.6, Chloride 96 L, Carbon Dioxide 21.1, Anion Gap 14, BUN 72 H, Creatinine 6.03 H, Estim Creat Clear Calc 10.01 L, Est GFR (MDRD) Non-Af 9 L, BUN/Creatinine Ratio 12.0, Glucose 135 H, Calcium 10.8 12/10/24 06:31: POC Glucose 119 H Micro: Microbiology 12/03/24 20:38 Urine, Catheterized Urine Culture - Final Culture exhibits no growth. Radiography Diagnostic Testing: Radiology Impression Echocardiogram 12/08/24 17:29 Interpretation Summary Mild concentric left ventricular hypertrophy. The left ventricular ejection fraction is 55 %. The global longitudinal strain = -13.4% (abnormal). Stage 1 diastolic dysfunction. Mild (1+) mitral valve insufficiency. Mild (1+) tricuspid valve insufficiency. Right ventricular systolic pressure estimated to be 39 mmHg. Mild-Moderate (1-2+) aortic valve insufficiency. Ordering Physician: Claire Mazariegos Performed By: Janae Perdomo RDCS Biopsy CT 12/09/24 09:51 IMPRESSION: Successful right iliac bone marrow biopsy. Pathology results pending. Reading Location: [place] [id number] Physical Exam Narrative General: Alert, Oriented x3, Cooperative, No apparent distress HEENT: Atraumatic, PERRLA, EOMI, Normocephalic Oral: Moist Mucosa Neck: Supple, No JVD Lungs: Diminished, Normal air movement, No rhonchi, No wheeze, No rales Cardiovascular: Regular rate, Regular Rhythm, Normal S1, Normal S2, No murmurs Abdomen: Soft, Non Tender, Non-Distended, No Hepato-splenomegaly Extremities: No edema, Capillary Refill Less than 3 Seconds Skin: No rashes, No breakdown Musculoskeletal: No Tenderness to Palpation of Joints or Extremities Neurological: No focal neurological deficits, Motor Exam 5/5 strength throughout, Sensory exam intact to light touch and pain Psych/Mental Status: Normal Affect, Appropriate Assessment & Plan Assessment/Plan (1) Hypercalcemia: (2) Acute renal failure: PLAN: Plan #Acute kidney failure-concern for multiple myeloma -Patient with a creatinine around 1.5 at baseline with most recent value 9 months ago being 1.5 to - Presenting now with a creatinine of 8.56 - Bicarb 19.5 - Patient not hyperkalemic - Vitally stable and not volume overloaded - Patient alert, no seizure activity, confusion, altered mental status - Presently does not seem to have any indications for emergent dialysis - Suspect that patient's nausea and vomiting with very poor p.o. intake on top of continuing to take his valsartan/hydrochlorothiazide caused or largely contributed to his worsening renal failure - Patient reportedly had been urinating at home and even urinated this morning however in the ED unable to urinate and has 280 on bladder scan - Unclear if there has been an obstructive component to this as well given patient's report of urinating okay prior to coming in - Will have Monterroso catheter placed given patient reporting he is unable to urinate in the ED and bladder scan shows 280 - IV fluids - Will check UA given reports of suprapubic discomfort - Check urine studies - Kidney and bladder ultrasound -Check CK - Discussed with nephrology, nephrology consult placed -12/04: Despite sodium and calcium improving, kidney function has remained about the same, BUN this a.m. 112 with a creatinine of 8.49. UA with protein and occult blood, rare bacteria and does not seem UA is indicative of infection. FEUrea is 61.8 suggesting intrinsic renal disease. SPEP and UPEP pending, nephrology consulted, kidney and bladder ultrasound ordered, Monterroso catheter in place, patient has had 1300 output since admission yesterday evening. [place] lambda light chains ordered in addition to protein electrophoresis. Discussed with nephrology. -12/05: BUN 107 with a creatinine slightly worse of 8.79, still making urine, nephrology following, lab workup pending, kidney and bladder ultrasound is ordered and pending -12/06: Kidney and bladder ultrasound normal, kidney function virtually unchanged since presentation, patient for tunneled dialysis catheter today per nephrology recommendation to begin dialysis, discussed with nephrology, patient also for kidney biopsy tomorrow -12/07: Patient had dialysis today, 2 L taken off and tolerated that well, patient for biopsy today -12/08: Patient's free kappa/lambda ratio 0.02 and SPEP results concerning for possible multiple myeloma. Discussed with Dr. King with hematology/oncology. Case reviewed, given this is suspicious for multiple myeloma it was recommended to get a skeletal survey and a bone marrow biopsy. Discussed with patient family at bedside and patient agreeable. These orders have been placed. Patient will need to follow-up closely with Dr. King next week in the office if he is discharged over the weekend though currently unclear when patient will be ready for discharge. Renal biopsy pending, did have dialysis again today with no fluid taken off. -12/09: Patient skeletal survey with subtle round lucencies within bilateral humeri and right radius and questionable moth-eaten appearance of inferior aspects of bony pelvis which could be due to to summation of shadows and overlying structures however infiltrative process cannot be excluded. Preliminary pathology also concerning for lytes chains/myeloma. Discussed again with hematology, will move forward with biopsy and patient is scheduled to tentatively follow with him in the office next if results are available to work on/discussed treatment. Did have dialysis today with 4 L off, will likely have dialysis again tomorrow. Discussed with nephrology and hematology 12/10/2024: He is scheduled for outpatient dialysis on Thursday, , Thursday schedule. He is anemic at 7.2 no obvious signs of bleeding. There is concern for multiple myeloma so we will recheck tomorrow morning transfuse as indicated # Irregular heart beat-A-fib with RVR -12/07: Patient notes he had an ablation 20 years ago for A-fib and has not had a problem since, on telemetry seems that he was going in and out of a fast rate, looks like it is likely fib but has been unable to be obtained on twelve-lead. Starting patient on metoprolol, first dialysis today as well and holding albuterol treatments, recommendation may have led to or exacerbated underlying A-fib if patient continues to have episodes despite dialysis, metoprolol, and holding albuterol will need to consider risks and benefits of anticoagulation on discharge -12/08: Patient intermittently with A-fib with RVR, adjusting metoprolol dosing, did convert temporarily with IV metoprolol earlier today, will continue to adjust medications. Did have TSH on presentation that was 0.591 -12/09: With 4 L of fluid removed heart rate improved and patient appears to be back in sinus rhythm, awaiting echocardiogram 12/10/2024: Heart rate back to normal sinus rhythm # Acute hypoxic respiratory failure secondary to fluid overload from renal failure -12/08: Patient's shortness of breath seems to worsen with elevated heart rates and improve when he is rate controlled more in sinus rhythm, adjusting metoprolol to achieve better control, TSH within normal limits. Did have chest x-ray on 12/06 that showed possible moderate interstitial pulmonary edema however patient was subsequently dialyzed with 2 L off but did not seem to significantly improve respiratory status, had repeat chest x-ray with increased O2 needs which did also show edema and was given IV Lasix but with suboptimal output -12/09: Patient overnight required Airvo and was in respiratory distress, chest x-ray showed increased edema and he was given IV Lasix, did have some improvement but suboptimal output, today had 4 L out with dialysis and is now down to 4 L nasal cannula with good saturations and significantly improved breathing. Awaiting echocardiogram 12/10/2024: Echocardiogram is unremarkable with an EF of 55% stage I diastolic dysfunction with RVSP of 39 mmHg # Hypercalcemia -Unclear if this is secondary to significant dehydration or if this could be a primary process associated with his renal failure and dehydration - Will hydrate with normal saline - Will check PTH and vitamin D - will check Phos - If no or minimal improvement can consider calcitonin and/or bisphosphonates - Will also check serum and urine protein electrophoresis given high calcium with kidney failure, high total protein and globulin, anemia and recent L1 fracture/bone pain in addition to generalized weakness - Chest x-ray also ordered to evaluate for any possible lesions -12/04: Improving with hydration, patient's Phos is high which is likely secondary to his renal failure, notably vitamin D is within normal limits at 43 and PTH is only 15. Suspect that patient's hypercalcemia is largely due to dehydration in addition to his hydrochlorothiazide in addition to multiple calcium based medications being taken daily for reflux but workup still pending. Protein electrophoresis pending and kappa lambda light chains ordered -12/05: Still slightly elevated at 11.5 but has consistently continued to improve, continue IV fluids and avoiding calcium based agents, continue to hold hydrochlorothiazide -12/06: Calcium within normal limits today -12/07: Calcium remains the same today, continue current management -12/08: Discussed with oncology, if potassium is elevated again would recommend 60 pamidronate -12/09: No present indication for bisphosphonate #Hyponatremia -Possibly secondary to dehydration but cannot say definitively, patient additionally on hydrochlorothiazide which will be held - Will order serum osmole's - Check urine studies - TSH - Lipid profile - Monitor I's and O's - Trend BMPs -10/5: Patient actually has elevated serum osmolality with an osmolality of 324 but no hyperglycemia or hyperlipidemia therefore suspect this is either due to his kidney failure with uremia or could possibly pseudohyponatremia due to a paraproteinemia +/- HCTZ, serum and urine protein electrophoresis pending as well as kappa lambda light chains. Notably sodium has slowly up trended to 129 with fluids and cessation of HCTZ, will continue present management while further workup underway -12/05: Sodium of 128, seems to have stabilized, do suspect that this is at least in part due to renal disease with uremia, continue to monitor, continue to hold hydrochlorothiazide -12/06: Hyponatremia continues to remain stable with a sodium of 129, will not resume hydrochlorothiazide on discharge -12/07: Sodium is further improved to 131 today, patient had 2 L removed with dialysis, repeat a.m. -12/08: Sodium 132 today, continues to improve -12/09: Sodium has actually normalized today with dialysis 12/10/2024: Sodium is 131, will continue to monitor but at the moment of no significant concern # Macrocytic anemia -12/04: Patient with hemoglobin 10.7 on presentation with no previous baseline seen in our system, this a.m. hemoglobin 7.9 which is significant drop but no evidence of ongoing bleeding, suspect the patient was significantly volume depleted/dehydrated and was hemoconcentrated especially given drop in all 3 cell lines. MCV is 98.6, will be ordering B12, iron panel, folate -12/05: Hemoglobin slightly lower today, in part likely due to dilution and blood draws, 7.2 this a.m.. Folate is technically within normal limits but on the low side so we will start folic acid but B12 within normal limits, iron and iron saturation within normal limits with elevated ferritin. 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 -12/06: Hemoglobin actually up to 7.7 today, continue to monitor -12/07: No evidence of blood loss, hemoglobin remaining stable, hemoglobin 7.9 today -12/08: Hemoglobin 7.2, has been fluctuating in the sevens, does not appear to have any acute blood loss -12/09: Patient had a.m. hemoglobin of 6.9 however before blood could be given he had dialysis and repeat hemoglobin showed a hemoglobin of 8.5 so will not proceed with transfusion #GERD -Continue PPI -12/04: Reportedly patient's been having significant reflux symptoms for the past year, takes omeprazole at home and has been taking nightly calcium based products for reflux, patient's reflux may be contributing to his nausea, will place on IV PPI twice daily, avoiding calcium based agents -12/05: Patient now on IV PPI every 12, avoiding calcium based agents, symptoms significantly improved -12/06: Doing very well on twice daily PPI, will likely need this on discharge -12/07: Has had significant improvement, currently reporting constipation but no upper GI symptoms -12/08: Still some poor p.o. intake, discussed protein shakes/meal supplements if patient does not want to eat to try to maintain nutrition -12/09: Started on Remeron to try to improve appetite #Hypertension -Will be holding valsartan/hydrochlorothiazide due to the above -12/04: Continue to hold valsartan/hydrochlorothiazide and monitor blood pressure, can consider alternative agent if necessary but will be careful to avoid hypotension -12/05: Hydralazine as needed if needed, continue to hold ARB and HCTZ -12/06: Patient on hydralazine as needed, would likely need to begin antihypertensive, will plan to do this after patient's procedure pending blood pressures -12/07: Amlodipine started, starting metoprolol as above -12/08: Metoprolol being uptitrated as above -12/09: On metoprolol and amlodipine #L1 compression fracture - Patient scheduled for kyphoplasty Thursday - Denies taking any NSAIDs or pain medications - Supportive care -12/04: Continue pain control and supportive care -12/05: Did advise to cancel kyphoplasty appointment given patient still in the hospital and to hold off on rescheduling until we have more answers and a better idea of discharge -12/06: Will need follow-up with pain management upon discharge -12/07: Due to patient having multiple procedures he has not been able to consistently work with PT, will need PT reeval when able and prior to discharge as patient does not often get out of bed and concerns that he could have some difficulty with mobility -12/08: Did work with PT today, felt generally weak and tired -12/09: Will continue to encourage up to chair and mobilization #Type 2 diabetes mellitus -Glucose checks and sliding scale insulin - Had somewhat low glucose of 59 on presentation - Will decrease long-acting insulin - Holding sitagliptin and metformin -12/04: Glucose has actually remained low, will discontinue long-acting insulin altogether -12/05: Glucose has been more stable overnight, continue to hold long-acting insulin -12/06: Glucose 123 this a.m., hemoglobin A1c 6.4, will need to decrease patient's insulin regimen significantly on discharge to avoid hypoglycemia -12/07: Glucose maintaining in the low 100s, continue current management -12/08: Glucose 96 this a.m., has had fairly poor p.o. intake, continue to encourage increased intake -12/09: A.m. glucose 94 this a.m., started on Remeron to try to improve appetite #Hypothyroidism -Continue Synthroid DVT: SCDs Charges/Coding Visit Charges Inpatient E&M: 19349 Subs Hosp L2
[2024-12-10] MEDS: Senna/Docusate Sodium 1 Tablet 2 TABLET PO ×2 (11:59→21:45)
[2024-12-10] MEDS: Lidocaine 5% Patch 1 PATCH TOPICAL (12:01)
[2024-12-10] MEDS: Folic Acid 1 MG in 0.9% Normal Saline (50mL Bag) 50 ML 200 MG IV (12:47)
[2024-12-10] MEDS: Pantoprazole Sodium 40 MG in 0.9% Normal Saline (100mL MB+) 100 ML 300 MG IV ×2 (13:18→21:48)
[2024-12-10] MEDS: Polyethylene Glycol 3350 17 GM PACKET 34 GM PO (14:54)
[2024-12-10] MEDS: MELATONIN 10 MG TABLET PO (22:03)
[2024-12-11] VITALS (8 sets, daily range): BP systolic 123–146; BP diastolic 75–81; PULSE 83–95; RESP 17–20; TEMP 36.3–36.9; O2SAT 92–99; BMI 22.6
[2024-12-11 05:00] LABS: Hematocrit 20.6 % (40-54); Hemoglobin 7.3 g/dL (13.0-16.5); Immature Granulocytes Count 0.000 X10^3/uL (0.0-0.0); Mean Corp Hgb Conc 35.4 g/dL (32-36); Mean Corpuscular Volume 101.5 fL (80-94); Mean Platelet Vol. 9.8 fl (6.2-12.0); NRBC Flagged by Analyzer 0 % (0-5); Platelet Count 139 K/mm3 (150-450); RBC Distribution Width CV 12.0 % (11.6-14.6); RBC Distribution Width SD 43.9 fl (35.1-43.9); Red Blood Count 2.03 M/mm3 (4.6-6.2); White Blood Count 2.9 K/mm3 (4.4-11.0)
[2024-12-11 05:27] LABS: Anion Gap 14 (5-15); BUN 47 mg/dL (4-19); BUN/Creat Ratio 9.8 RATIO (10-20); Calcium,Total 10.1 mg/dL (7.6-11.0); Carbon Dioxide 22.0 mmol/L (21.0-32.0); Chloride 98 mmol/L (98-108); Estimated Creatinine Clearance 12.65 ml/min (50-250); Glucose 116 mg/dL (70-99); Potassium 3.4 mmol/L (3.3-5.1)
--- NOTE | 2024-12-11 07:46 | PN.RENAL_ITS ---
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 Patient reports that his appetite is picking up. There is no nausea or vomiting. Patient complains of sinus congestion. However, there is no chest pain or dyspnea at rest. Objective Data Objective Data Vital Signs: Vital Signs Temp Pulse Resp BP Pulse Ox O2 Del Method O2 Flow Rate 97.7 F L 83 20 H 123/81 H 92 Nasal Cannula 3 12/11/24 03:30 12/11/24 03:30 12/11/24 03:30 12/11/24 03:30 12/11/24 07:44 12/11/24 07:44 12/11/24 07:44 FiO2 58 12/09/24 10:00 Oxygen Flow Rate (L/min) 3 Oxygen Delivery Method Nasal Cannula Weight: 76.022 kg Body Mass Index (BMI) 22.6 Intake & Output: Intake and Output for Last 24 Hours 12/09/24 12/10/24 12/11/24 23:59 23:59 23:59 Intake Total 830.2 / 1030.2 1590.2 / 1590.2 Output Total 4500 / 4600 4165 / 4165 120 / 120 Balance -3669.8 / -3569.8 -2574.8 / -2574.8 -120 / -120 Medical Nutrition Assessment Dietitian: Malnutrition Criteria Met Start: 12/04/24 12:12 Freq: Status: Active Protocol: Document 12/04/24 12:12 SLA (Rec: 12/04/24 12:13 SLA 10..25.7) Nutrition Malnutrition Evidence of Yes Malnutrition Exists Malnutrition (severe Acute Illness/Injury ): Evidenced By Suboptimal Energy Intake (Severe),Weight Loss (Severe) Clinical Problem Acute Disease or Injury Related Malnutrition Etiology related to issues w/ 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 Status Active Problem Recommendation Dietitian Will liberalize diet to Regular w/ glucerna shake tid Recommendations/ at meals - once po intake improves, can adjust to carb Changes controlled diet if indicated. Will continue to follow and monitor for changes in pt nutritional status and make additional rec as indicate. Lab / Micro Data 12/11/24 03:50 12/11/24 03:50 Labs: Laboratory Results - last 24 hr 12/10/24 10:44: POC Glucose 113 H 12/10/24 16:53: POC Glucose 205 H 12/10/24 21:39: POC Glucose 156 H 12/11/24 03:50: WBC 2.9 L, RBC 2.03 L, Hgb 7.3 L, Hct 20.6 L, MCV 101.5 H, MCH 36.0 H, MCHC 35.4, RDW Std Deviation 43.9, RDW Coeff of Scotty 12.0, Plt Count 139 L, MPV 9.8, Immature Gran % (Auto) 0.000, Neut % (Auto) 50.4, Lymph % (Auto) 30.3, Noble % (Auto) 19.0 H, Eos % (Auto) 0.0, Baso % (Auto) 0.3, Absolute Neuts (auto) 1.5 L, Absolute Lymphs (auto) 0.88, Nucleated RBC % 0, Sodium 133, Potassium 3.4, Chloride 98, Carbon Dioxide 22.0, Anion Gap 14, BUN 47 H, C reatinine 4.77 H, Estim Creat Clear Calc 12.65 L, Est GFR (MDRD) Non-Af 11 L, B UN/Creatinine Ratio 9.8 L, Glucose 116 H, Calcium 10.1 12/11/24 06:21: POC Glucose 114 H Micro: Microbiology 12/03/24 20:38 Urine, Catheterized Urine Culture - Final Culture exhibits no growth. Physical Exam Narrative no obvious distress no JVD s1s2 no murmurs Clear to auscultation anteriorly. On O2 via nasal cannula abdomen soft, nontender no edema Assessment & Plan Assessment/Plan (1) Acute renal failure: PLAN: Baseline creatinine as of beginning of this year was around 1.4 or so. Admission creatinine more than 9. Monterroso indwelling without much urine output. Renal ultrasound pending Associated hypercalcemia recent spine related issues. Will check serum protein electrophoresis, kappa, lambda light chain assay. I will also send other serologies. He also takes Tums 1 a day due to acid reflux. I am not sure if that is the cause of hypercalcemia as well. So far PTH is suppressed. Continue IV fluids for now. If no significant recovery, may need a kidney biopsy. jose hospitalist 12/05/2024; SCr 8.56 on admission--> SCr 8.79 mg/dL today. Potassium and bicarb acceptable. Calcium 14.6 on admission, 11.5 today (continue holding valsartan/hydrochlorothiazide). Patient on IV fluids. Renal serologies pending. Urine output around 1.5 L yesterday (patient has Monterroso). Blood pressures acceptable. Though urine output has picked up renal function is slowly worsening and reviewed that with patient and his today. Reviewed with them that patient is quite possibly heading towards needing renal replacement therapy. Risks and benefits of dialysis explained. Dialysis in inpatient setting and outpatient setting also explained. Questions were answered. Patient is in agreement with moving forward with renal placement therapy. There is no urgent need for renal placement therapy today as potassium and bicarb acceptable and volume status appears compensated. He did state he would like to see how his labs look tomorrow but in agreement with starting hemodialysis if necessary. Recommend surgery consult for hemodialysis catheter placement. Discussed nephrology plan with patient and . Discussed nephrology plan with Dr. Mazariegos. Labs ordered for morning. Assessment and plan reviewed with Dr. Harding 12/06/2024; serum creatinine about the same today, 8.5 mg/dL, bicarb 20, potassium 4.2. Urine output yesterday 1.2 L. Calcium 10.9 today. Overnight patient developed difficulty breathing with wheezing, now on O2 nasal cannula. Can stop IV fluids. He is to have tunneled hemodialysis catheter placed today then will plan for dialysis afterwards and attempt small amount of fluid removal as patient/blood pressure tolerates. Renal serologies are pending. Discussed with patient today about kidney biopsy, risk and benefit of biopsy. Patient is in agreement with having kidney biopsy. Will place orders. Patient is not on any blood thinners. Continue to monitor for renal recovery. Discussed with case management, arrangements underway for outpatient hemodialysis at [facility] diagnosis DEANGELO. Assessment and plan reviewed with Dr. Harding 12/07/2024. Serologies are still pending. Significant protein gap. Hypercalcemia on admission, now better. Recent low back issues. Myeloma is possible. Will plan for kidney biopsy today. Dialysis today, dialysis tomorrow. Discussed with family bedside. 12/08/24. HD today. see orders. SPEP came back positive. K/L ratio skewed. possible myeloma. will call pathology for diagnosis later today. addendum. jose pathology. surprise, no myeloma. dense ATN. 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 needs hematology evaluation. multiple discussions with hospitalist, pathology 12/09/2024. Isolated UF today mostly for fluid removal. Serum protein electrophoresis with IgA and heavy chain monoclonality. Discussed with pathology at [facility] again today. 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 Bone scan done overnight showed osteolytic lesions, again consistent with multiple myeloma. Can send a serum viscosity. Discussed with hospitalist. UF today, likely dialysis tomorrow. Oncology consulted. Bone marrow biopsy ordered today. Discussed with family at bedside. All questions answered. 12/11/2024. Patient was dialyzed yesterday on 12/10/2024. He tolerated dialysis well. Volume and solute are controlled, so there is no need for dialysis today. Will reassess patient again tomorrow. Recheck renal function, volume status, acid-base and electrolytes again tomorrow. (2) Hypercalcemia:
--- NOTE | 2024-12-11 10:11 | PN.HOSP_ITS ---
Subjective Subjective Doing well, no issues overnight. He did work with physical therapy who felt like to go home with help. Will reevaluate 1 more time tomorrow to see if he needs extra dialysis prior to Thursday Objective Data Objective Data Vital Signs: Vital Signs Temp Pulse Resp BP Pulse Ox O2 Del Method O2 Flow Rate 97.7 F L 83 20 H 123/81 H 99 Nasal Cannula 3 12/11/24 03:30 12/11/24 03:30 12/11/24 03:30 12/11/24 03:30 12/11/24 07:45 12/11/24 07:44 12/11/24 08:28 FiO2 58 12/09/24 10:00 Oxygen Flow Rate (L/min) 3 Oxygen Delivery Method Nasal Cannula Weight: 167 lb 9.6 oz Body Mass Index (BMI) 22.6 Intake & Output: Intake and Output for Last 24 Hours 12/10/24 12/11/24 12/12/24 03:59 03:59 03:59 Intake Total 1030.2 / 1030.2 1390.2 / 1390.2 Output Total 4600 / 4600 4065 / 4065 120 / 120 Balance -3569.8 / -3569.8 -2674.8 / -2674.8 -120 / -120 Medical Nutrition Assessment Dietitian: Malnutrition Criteria Met Start: 12/04/24 12:12 Freq: Status: Active Protocol: Document 12/04/24 12:12 SLA (Rec: 12/04/24 12:13 SLA 10..25.7) Nutrition Malnutrition Evidence of Yes Malnutrition Exists Malnutrition (severe Acute Illness/Injury ): Evidenced By Suboptimal Energy Intake (Severe),Weight Loss (Severe) Clinical Problem Acute Disease or Injury Related Malnutrition Etiology related to 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 Status Active Problem Recommendation Dietitian Will liberalize diet to Regular w/ glucerna shake tid Recommendations/ at meals - once po intake improves, can adjust to carb Changes controlled diet if indicated. Will continue to follow and monitor for changes in pt nutritional status and make additional rec as indicate. Lab / Micro Data 12/11/24 03:50 12/11/24 03:50 Labs: Laboratory Results - last 24 hr 12/10/24 10:44: POC Glucose 113 H 12/10/24 16:53: POC Glucose 205 H 12/10/24 21:39: POC Glucose 156 H 12/11/24 03:50: WBC 2.9 L, RBC 2.03 L, Hgb 7.3 L, Hct 20.6 L, MCV 101.5 H, MCH 36.0 H, MCHC 35.4, RDW Std Deviation 43.9, RDW Coeff of Scotty 12.0, Plt Count 139 L, MPV 9.8, Immature Gran % (Auto) 0.000, Neut % (Auto) 50.4, Lymph % (Auto) 30.3, [place] % (Auto) 19.0 H, Eos % (Auto) 0.0, Baso % (Auto) 0.3, Absolute Neuts (auto) 1.5 L, Absolute Lymphs (auto) 0.88, Nucleated RBC % 0, Sodium 133, Potassium 3.4, Chloride 98, Carbon Dioxide 22.0, Anion Gap 14, BUN 47 H, C reatinine 4.77 H, Estim Creat Clear Calc 12.65 L, Est GFR (MDRD) Non-Af 11 L, B UN/Creatinine Ratio 9.8 L, Glucose 116 H, Calcium 10.1 12/11/24 06:21: POC Glucose 114 H Micro: Microbiology 12/03/24 20:38 Urine, Catheterized Urine Culture - Final Culture exhibits no growth. Physical Exam Narrative General: Alert, Oriented x3, Cooperative, No apparent distress HEENT: Atraumatic, PERRLA, EOMI, Normocephalic Oral: Moist Mucosa Neck: Supple, No JVD Lungs: Diminished, Normal air movement, No rhonchi, No wheeze, No rales Cardiovascular: Regular rate, Regular Rhythm, Normal S1, Normal S2, No murmurs Abdomen: Soft, Non Tender, Non-Distended, No Hepato-splenomegaly Extremities: No edema, Capillary Refill Less than 3 Seconds Skin: No rashes, No breakdown Musculoskeletal: No Tenderness to Palpation of Joints or Extremities Neurological: No focal neurological deficits, Motor Exam 5/5 strength throughout, Sensory exam intact to light touch and pain Psych/Mental Status: Normal Affect, Appropriate Assessment & Plan Assessment/Plan (1) Hypercalcemia: (2) Acute renal failure: PLAN: Plan #Acute kidney failure-concern for multiple myeloma -Patient with a creatinine around 1.5 at baseline with most recent value 9 months ago being 1.5 to - Presenting now with a creatinine of 8.56 - Bicarb 19.5 - Patient not hyperkalemic - Vitally stable and not volume overloaded - Patient alert, no seizure activity, confusion, altered mental status - Presently does not seem to have any indications for emergent dialysis - Suspect that patient's nausea and vomiting with very poor p.o. intake on top of continuing to take his valsartan/hydrochlorothiazide caused or largely contributed to his worsening renal failure - Patient reportedly had been urinating at home and even urinated this morning however in the ED unable to urinate and has 280 on bladder scan - Unclear if there has been an obstructive component to this as well given patient's report of urinating okay prior to coming in - Will have Monterroso catheter placed given patient reporting he is unable to urinate in the ED and bladder scan shows 280 - IV fluids - Will check UA given reports of suprapubic discomfort - Check urine studies - Kidney and bladder ultrasound -Check CK - Discussed with nephrology, nephrology consult placed -12/04: Despite sodium and calcium improving, kidney function has remained about the same, BUN this a.m. 112 with a creatinine of 8.49. UA with protein and occult blood, rare bacteria and does not seem UA is indicative of infection. FEUrea is 61.8 suggesting intrinsic renal disease. SPEP and UPEP pending, nephrology consulted, kidney and bladder ultrasound ordered, Monterroso catheter in place, patient has had 1300 output since admission yesterday evening. [place] lambda light chains ordered in addition to protein electrophoresis. Discussed with nephrology. -12/05: BUN 107 with a creatinine slightly worse of 8.79, still making urine, nephrology following, lab workup pending, kidney and bladder ultrasound is ordered and pending -12/06: Kidney and bladder ultrasound normal, kidney function virtually unchanged since presentation, patient for tunneled dialysis catheter today per nephrology recommendation to begin dialysis, discussed with nephrology, patient also for kidney biopsy tomorrow -12/07: Patient had dialysis today, 2 L taken off and tolerated that well, patient for biopsy today -12/08: Patient's free kappa/lambda ratio 0.02 and SPEP results concerning for possible multiple myeloma. Discussed with Dr. King with hematology/oncology. Case reviewed, given this is suspicious for multiple myeloma it was recommended to get a skeletal survey and a bone marrow biopsy. Discussed with patient family at bedside and patient agreeable. These orders have been placed. Patient will need to follow-up closely with Dr. King next week in the office if he is discharged over the weekend though currently unclear when patient will be ready for discharge. Renal biopsy pending, did have dialysis again today with no fluid taken off. -12/09: Patient skeletal survey with subtle round lucencies within bilateral humeri and right radius and questionable moth-eaten appearance of inferior aspects of bony pelvis which could be due to to summation of shadows and overlying structures however infiltrative process cannot be excluded. Preliminary pathology also concerning for lytes chains/myeloma. Discussed again with hematology, will move forward with biopsy and patient is scheduled to tentatively follow with him in the office next if results are available to work on/discussed treatment. Did have dialysis today with 4 L off, will likely have dialysis again tomorrow. Discussed with nephrology and hematology 12/10/2024: He is scheduled for outpatient dialysis on Thursday, , Thursday schedule. He is anemic at 7.2 no obvious signs of bleeding. There is concern for multiple myeloma so we will recheck tomorrow morning transfuse as indicated 12/11/2024: Anemia stabilized likely related to the concern for multiple myeloma. Will recheck tomorrow morning and if he does not need any further dialysis per nephrology tomorrow they can plan for discharge home and outpatient dialysis as previously scheduled # Irregular heart beat-A-fib with RVR -12/07: Patient notes he had an ablation 20 years ago for A-fib and has not had a problem since, on telemetry seems that he was going in and out of a fast rate, looks like it is likely fib but has been unable to be obtained on twelve-lead. Starting patient on metoprolol, first dialysis today as well and holding albuterol treatments, recommendation may have led to or exacerbated underlying A-fib if patient continues to have episodes despite dialysis, metoprolol, and holding albuterol will need to consider risks and benefits of anticoagulation on discharge -12/08: Patient intermittently with A-fib with RVR, adjusting metoprolol dosing, did convert temporarily with IV metoprolol earlier today, will continue to adjust medications. Did have TSH on presentation that was 0.591 -12/09: With 4 L of fluid removed heart rate improved and patient appears to be back in sinus rhythm, awaiting echocardiogram 12/10/2024: Heart rate back to normal sinus rhythm # Acute hypoxic respiratory failure secondary to fluid overload from renal failure -12/08: Patient's shortness of breath seems to worsen with elevated heart rates and improve when he is rate controlled more in sinus rhythm, adjusting metoprolol to achieve better control, TSH within normal limits. Did have chest x-ray on 12/06 that showed possible moderate interstitial pulmonary edema however patient was subsequently dialyzed with 2 L off but did not seem to significantly improve respiratory status, had repeat chest x-ray with increased O2 needs which did also show edema and was given IV Lasix but with suboptimal output -12/09: Patient overnight required Airvo and was in respiratory distress, chest x-ray showed increased edema and he was given IV Lasix, did have some improvement but suboptimal output, today had 4 L out with dialysis and is now down to 4 L nasal cannula with good saturations and significantly improved breathing. Awaiting echocardiogram 12/10/2024: Echocardiogram is unremarkable with an EF of 55% stage I diastolic dysfunction with RVSP of 39 mmHg 12/11/2024: Will plan for an ambulatory pulse ox tomorrow prior to discharge # Hypercalcemia -Unclear if this is secondary to significant dehydration or if this could be a primary process associated with his renal failure and dehydration - Will hydrate with normal saline - Will check PTH and vitamin D - will check Phos - If no or minimal improvement can consider calcitonin and/or bisphosphonates - Will also check serum and urine protein electrophoresis given high calcium with kidney failure, high total protein and globulin, anemia and recent L1 fracture/bone pain in addition to generalized weakness - Chest x-ray also ordered to evaluate for any possible lesions -12/04: Improving with hydration, patient's Phos is high which is likely secondary to his renal failure, notably vitamin D is within normal limits at 43 and PTH is only 15. Suspect that patient's hypercalcemia is largely due to dehydration in addition to his hydrochlorothiazide in addition to multiple calcium based medications being taken daily for reflux but workup still pending. Protein electrophoresis pending and kappa lambda light chains ordered -12/05: Still slightly elevated at 11.5 but has consistently continued to improve, continue IV fluids and avoiding calcium based agents, continue to hold hydrochlorothiazide -12/06: Calcium within normal limits today -12/07: Calcium remains the same today, continue current management -12/08: Discussed with oncology, if potassium is elevated again would recommend 60 pamidronate -12/09: No present indication for bisphosphonate #Hyponatremia -Possibly secondary to dehydration but cannot say definitively, patient additionally on hydrochlorothiazide which will be held - Will order serum osmole's - Check urine studies - TSH - Lipid profile - Monitor I's and O's - Trend BMPs -12/04: Patient actually has elevated serum osmolality with an osmolality of 324 but no hyperglycemia or hyperlipidemia therefore suspect this is either due to his kidney failure with uremia or could possibly pseudohyponatremia due to a paraproteinemia +/- HCTZ, serum and urine protein electrophoresis pending as well as kappa lambda light chains. Notably sodium has slowly up trended to 129 with fluids and cessation of HCTZ, will continue present management while further workup underway -12/05: Sodium of 128, seems to have stabilized, do suspect that this is at least in part due to renal disease with uremia, continue to monitor, continue to hold hydrochlorothiazide -12/06: Hyponatremia continues to remain stable with a sodium of 129, will not resume hydrochlorothiazide on discharge -12/07: Sodium is further improved to 131 today, patient had 2 L removed with dialysis, repeat a.m. -12/08: Sodium 132 today, continues to improve -12/09: Sodium has actually normalized today with dialysis 12/10/2024: Sodium is 131, will continue to monitor but at the moment of no significant concern # Macrocytic anemia -12/04: Patient with hemoglobin 10.7 on presentation with no previous baseline seen in our system, this a.m. hemoglobin 7.9 which is significant drop but no evidence of ongoing bleeding, suspect the patient was significantly volume depleted/dehydrated and was hemoconcentrated especially given drop in all 3 cell lines. MCV is 98.6, will be ordering B12, iron panel, folate -12/05: Hemoglobin slightly lower today, in part likely due to dilution and blood draws, 7.2 this a.m.. Folate is technically within normal limits but on the low side so we will start folic acid but B12 within normal limits, iron and iron saturation within normal limits with elevated ferritin. 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 -12/06: Hemoglobin actually up to 7.7 today, continue to monitor -12/07: No evidence of blood loss, hemoglobin remaining stable, hemoglobin 7.9 today -12/08: Hemoglobin 7.2, has been fluctuating in the sevens, does not appear to have any acute blood loss -12/09: Patient had a.m. hemoglobin of 6.9 however before blood could be given he had dialysis and repeat hemoglobin showed a hemoglobin of 8.5 so will not proceed with transfusion #GERD -Continue PPI -12/04: Reportedly patient's been having significant reflux symptoms for the past year, takes omeprazole at home and has been taking nightly calcium based products for reflux, patient's reflux may be contributing to his nausea, will place on IV PPI twice daily, avoiding calcium based agents -12/05: Patient now on IV PPI every 12, avoiding calcium based agents, symptoms significantly improved -12/06: Doing very well on twice daily PPI, will likely need this on discharge -12/07: Has had significant improvement, currently reporting constipation but no upper GI symptoms -12/08: Still some poor p.o. intake, discussed protein shakes/meal supplements if patient does not want to eat to try to maintain nutrition -12/09: Started on Remeron to try to improve appetite #Hypertension -Will be holding valsartan/hydrochlorothiazide due to the above -12/04: Continue to hold valsartan/hydrochlorothiazide and monitor blood pressure, can consider alternative agent if necessary but will be careful to avoid hypotension -12/05: Hydralazine as needed if needed, continue to hold ARB and HCTZ -12/06: Patient on hydralazine as needed, would likely need to begin antihypertensive, will plan to do this after patient's procedure pending blood pressures -12/07: Amlodipine started, starting metoprolol as above -12/08: Metoprolol being uptitrated as above -12/09: On metoprolol and amlodipine #L1 compression fracture - Patient scheduled for kyphoplasty Thursday - Denies taking any NSAIDs or pain medications - Supportive care -12/04: Continue pain control and supportive care -12/05: Did advise to cancel kyphoplasty appointment given patient still in the hospital and to hold off on rescheduling until we have more answers and a better idea of discharge -12/06: Will need follow-up with pain management upon discharge -12/07: Due to patient having multiple procedures he has not been able to consistently work with PT, will need PT reeval when able and prior to discharge as patient does not often get out of bed and concerns that he could have some difficulty with mobility -12/08: Did work with PT today, felt generally weak and tired -12/09: Will continue to encourage up to chair and mobilization #Type 2 diabetes mellitus -Glucose checks and sliding scale insulin - Had somewhat low glucose of 59 on presentation - Will decrease long-acting insulin - Holding sitagliptin and metformin -12/04: Glucose has actually remained low, will discontinue long-acting insulin altogether -12/05: Glucose has been more stable overnight, continue to hold long-acting insulin -12/06: Glucose 123 this a.m., hemoglobin A1c 6.4, will need to decrease patient's insulin regimen significantly on discharge to avoid hypoglycemia -12/07: Glucose maintaining in the low 100s, continue current management -12/08: Glucose 96 this a.m., has had fairly poor p.o. intake, continue to encourage increased intake -12/09: A.m. glucose 94 this a.m., started on Remeron to try to improve appetite #Hypothyroidism -Continue Synthroid DVT: SCDs Charges/Coding Visit Charges Inpatient E&M: 16459 Subs Hosp L2
[2024-12-11] MEDS: Folic Acid 1 MG in 0.9% Normal Saline (50mL Bag) 50 ML 200 MG IV (10:39)
[2024-12-11] MEDS: Lidocaine 5% Patch 1 PATCH TOPICAL (10:40)
[2024-12-11] MEDS: Senna/Docusate Sodium 1 Tablet 2 TABLET PO ×2 (10:41→21:27)
[2024-12-11] MEDS: Pantoprazole Sodium 40 MG in 0.9% Normal Saline (100mL MB+) 100 ML 300 MG IV ×2 (11:11→21:29)
[2024-12-11] MEDS: MELATONIN 10 MG TABLET PO (21:33)
[2024-12-12] VITALS (13 sets, daily range): BP systolic 120–160; BP diastolic 68–89; PULSE 78–89; RESP 14–26; TEMP 36.6–36.8; O2SAT 80–98; BMI 23.4
[2024-12-12 05:53] LABS: Hematocrit 19.4 % (40-54); Hemoglobin 6.9 g/dL (13.0-16.5); Immature Granulocytes Count 0.010 X10^3/uL (0.0-0.0); Mean Corp Hgb Conc 35.6 g/dL (32-36); Mean Corpuscular Volume 101.6 fL (80-94); Mean Platelet Vol. 10.0 fl (6.2-12.0); NRBC Flagged by Analyzer 0 % (0-5); Platelet Count 147 K/mm3 (150-450); RBC Distribution Width CV 11.9 % (11.6-14.6); RBC Distribution Width SD 43.8 fl (35.1-43.9); Red Blood Count 1.91 M/mm3 (4.6-6.2); White Blood Count 3.6 K/mm3 (4.4-11.0)
[2024-12-12 06:15] LABS: Anion Gap 13 (5-15); BUN 66 mg/dL (4-19); BUN/Creat Ratio 11.3 RATIO (10-20); Calcium,Total 10.3 mg/dL (7.6-11.0); Carbon Dioxide 22.0 mmol/L (21.0-32.0); Chloride 94 mmol/L (98-108); Estimated Creatinine Clearance 10.33 ml/min (50-250); Glucose 150 mg/dL (70-99); Potassium 3.6 mmol/L (3.3-5.1)
[2024-12-12] MEDS: 0.9% Saline Lock 10 ML Syringe IV (10:17)
[2024-12-12] MEDS: Folic Acid 1 MG in 0.9% Normal Saline (50mL Bag) 50 ML 200 MG IV (10:17)
[2024-12-12] MEDS: Lidocaine 5% Patch 1 PATCH TOPICAL (10:19)
[2024-12-12] MEDS: Senna/Docusate Sodium 1 Tablet 2 TABLET PO (10:19)
--- NOTE | 2024-12-12 11:19 | CASEMGMT ---
Addendum entered by Mary Mcpherson 12/12/24 14:22: Pt's and daughter are here and would like to discuss DC plans with this report writer. Pt's brought in POA paperwork, SW notified. Pt has an order for DC placed. The hospitalist reports that he collaborated with the pt's Oncologist who reports that the pt's f/u appt has been moved to next Thursday morning at 0900 due to the pending pathology results. RN CM to the pt's room at this time. Pt and family updated on finalized DC plan including blood transfusion today and DC home subsequently with [facility] SOC tomorrow AM and [facility] SOC 1045 tomorrow. Updated that pt did not qualify for home oxygen. Pt and family state understanding and decline further questions or concerns at this time. Pt's RN updated. Addendum entered by Mary Mcpherson 12/12/24 13:21: Per PT's note, pt did well with ambulation on RA. Collaborated with the pt's RN who re-tested the pt. Per the RN's new O2 qualification documentation, pt does not qualify for home oxygen. [facility] notified to cancel referral. Pt updated and thanks this BUCK [employer]Y. Addendum entered by Mary Mcpherson 12/12/24 13:08: Collaborated with the hospitalist who states that the pt does not require HD today and that the pt will get a blood transfusion and DC home subsequently. [facility] notified and states that they can start care tomorrow at 0800 (pt states that he is OK with this). TC to M[facility] Mendez and notified. [facility]da states that they can start care tomorrow and requests the pt to come in earlier tomorrow at 1045 for paperwork. Pt notified and is agreeable. O2 Rx signed by the hospitalist. Rx and O2 testing sent to [facility] via [employer]. Educated the pt to call [facility] once he arrives home to have the remaining oxygen equipment delivered. Pt states understanding. Pt denies further questions or concerns at this time and states that he feels safe returning home today. Addendum entered by Mary Mcpherson 12/12/24 11:52: [facility] returns call and states that they are able to accept for SOC Thursday. Original Note: This RN CM reviewed pt's therapy notes and collaborated with the nephrology team as well as the hospitalist regarding DC planning. Per the previous RN CM, pt is set up for OP HD starting tomorrow. Pt's Hgb is 6.9. Updated nephrology who reports pt will likely get HD today as well as blood. Nephrology states that the pt does not need to start at the OP HD center until since he will be getting dialyzed today. Updated the hospitalist who states that pt will DC tomorrow if pt gets HD today. TC to Andrea Bañuelos and updated that SOC is now projected for . Per the supervisor of guidance and testing, pt (today) qualifies for 2L of oxygen with exertion only. RN CM to the pt's room at this time. Handed the pt's HD schedule to the pt's daughter who is at bedside. At this time, the pt denies the need for SNF and prefers to return home once medically ready. Educated the pt about the benefits of skilled HHC. Pt states that he is interested in HHC. At this time, the pt declines wanting to review a list of local in-network HHC agencies and states that he prefers [facility]. Also informed the pt that the pt qualifies for 2L of oxygen with exertion (as of now). A verbal list of local in-network DME companies were provided to the pt at this time. Pt prefers [employer]TC to [facility] and referral made. Awaiting return response. Pt and pt's daughter state that the pt's will be coming into the hospital at 1400 and would like this report writer to return then for further DC planning. Pt and pt's daughter decline further questions or concerns at this time. CM to follow. Tentative DC plan: Home with skilled HHC, OP HD (SOC ), and new oxygen through [employer].
--- NOTE | 2024-12-12 11:26 | PCM.PN.HOSP ---
Subjective Subjective Doing well, no issues overnight. Hemoglobin is low at 6.9 we will recheck to see if it is genuine Objective Data Objective Data Vital Signs: Vital Signs Temp Pulse Resp BP Pulse Ox O2 Del Method O2 Flow Rate 98.0 F 86 17 160/89 H 95 Nasal Cannula 2 12/12/24 09:25 12/12/24 10:18 12/12/24 09:25 12/12/24 09:25 12/12/24 09:25 12/12/24 09:25 12/12/24 09:25 FiO2 58 12/09/24 10:00 Oxygen Flow Rate (L/min) 2 Oxygen Delivery Method Nasal Cannula Weight: 173 lb 1.006 oz Body Mass Index (BMI) 23.4 Intake & Output: Intake and Output for Last 24 Hours 12/11/24 12/12/24 12/13/24 03:59 03:59 03:59 Intake Total 1390.2 / 1390.2 490.2 / 490.2 110.2 / 110.2 Output Total 4065 / 4065 470 / 470 100 / 100 Balance -2674.8 / -2674.8 20.2 / 20.2 10.2 / 10.2 Medical Nutrition Assessment Dietitian: Malnutrition Criteria Met Start: 12/04/24 12:12 Freq: Status: Active Protocol: Document 12/04/24 12:12 SLA (Rec: 12/04/24 12:13 SLA [id number]) Nutrition Malnutrition Evidence of Yes Malnutrition Exists Malnutrition (severe Acute Illness/Injury ): Evidenced By Suboptimal Energy Intake (Severe),Weight Loss (Severe) Clinical Problem Acute Disease or Injury Related Malnutrition Etiology related to issues 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 Status Active Problem Recommendation Dietitian Will liberalize diet to Regular w/ glucerna shake tid Recommendations/ at meals - once po intake improves, can adjust to carb Changes controlled diet if indicated. Will continue to follow and monitor for changes in pt nutritional status and make additional rec as indicate. Lab / Micro Data 12/12/24 04:45 12/12/24 04:45 Labs: Laboratory Results - last 24 hr 12/11/24 11:15: POC Glucose 173 H 12/11/24 17:25: POC Glucose 190 H 12/11/24 21:25: POC Glucose 174 H 12/12/24 04:45: WBC 3.6 L, RBC 1.91 L, Hgb 6.9 L, Hct 19.4 L, MCV 101.6 H, MCH 36.1 H, MCHC 35.6, RDW Std Deviation 43.8, RDW Coeff of Scotty 11.9, Plt Count 147 L, MPV 10.0, Immature Gran % (Auto) 0.300, Neut % (Auto) 45.2 L, Lymph % (Auto) 36.9, [place] % (Auto) 14.3 H, Eos % (Auto) 3.0, Baso % (Auto) 0.3, Absolute Neuts (auto) 1.6 L, Absolute Lymphs (auto) 1.34, Nucleated RBC % 0, Sodium 129 L, Potassium 3.6, Chloride 94 L, Carbon Dioxide 22.0, Anion Gap 13, BUN 66 H, Creatinine 5.84 H, Estim Creat Clear Calc 10.33 L, Est GFR (MDRD) Non-Af 9 L, BUN/Creatinine Ratio 11.3, Glucose 150 H, Calcium 10.3 12/12/24 06:37: POC Glucose 133 H Micro: Microbiology 12/03/24 20:38 Urine, Catheterized Urine Culture - Final Culture exhibits no growth. Physical Exam Narrative General: Alert, Oriented x3, Cooperative, No apparent distress HEENT: Atraumatic, PERRLA, EOMI, Normocephalic Oral: Moist Mucosa Neck: Supple, No JVD Lungs: Diminished bilateral bases, Normal air movement, No rhonchi, No wheeze, No rales Cardiovascular: Regular rate, Regular Rhythm, Normal S1, Normal S2, No murmurs Abdomen: Soft, Non Tender, Non-Distended, No Hepato-splenomegaly Extremities: No edema, Capillary Refill Less than 3 Seconds Skin: No rashes, No breakdown Musculoskeletal: No Tenderness to Palpation of Joints or Extremities Neurological: No focal neurological deficits, Motor Exam 5/5 strength throughout, Sensory exam intact to light touch and pain Psych/Mental Status: Normal Affect, Appropriate Assessment & Plan Assessment/Plan (1) Hypercalcemia: (2) Acute renal failure: PLAN: Plan #Acute kidney failure-concern for multiple myeloma -Patient with a creatinine around 1.5 at baseline with most recent value 9 months ago being 1.5 to - Presenting now with a creatinine of 8.56 - Bicarb 19.5 - Patient not hyperkalemic - Vitally stable and not volume overloaded - Patient alert, no seizure activity, confusion, altered mental status - Presently does not seem to have any indications for emergent dialysis - Suspect that patient's nausea and vomiting with very poor p.o. intake on top of continuing to take his valsartan/hydrochlorothiazide caused or largely contributed to his worsening renal failure - Patient reportedly had been urinating at home and even urinated this morning however in the ED unable to urinate and has 280 on bladder scan - Unclear if there has been an obstructive component to this as well given patient's report of urinating okay prior to coming in - Will have Monterroso catheter placed given patient reporting he is unable to urinate in the ED and bladder scan shows 280 - IV fluids - Will check UA given reports of suprapubic discomfort - Check urine studies - Kidney and bladder ultrasound -Check CK - Discussed with nephrology, nephrology consult placed -12/04: Despite sodium and calcium improving, kidney function has remained about the same, BUN this a.m. 112 with a creatinine of 8.49. UA with protein and occult blood, rare bacteria and does not seem UA is indicative of infection. FEUrea is 61.8 suggesting intrinsic renal disease. SPEP and UPEP pending, nephrology consulted, kidney and bladder ultrasound ordered, Monterroso catheter in place, patient has had 1300 output since admission yesterday evening. [place] lambda light chains ordered in addition to protein electrophoresis. Discussed with nephrology. -12/05: BUN 107 with a creatinine slightly worse of 8.79, still making urine, nephrology following, lab workup pending, kidney and bladder ultrasound is ordered and pending -12/06: Kidney and bladder ultrasound normal, kidney function virtually unchanged since presentation, patient for tunneled dialysis catheter today per nephrology recommendation to begin dialysis, discussed with nephrology, patient also for kidney biopsy tomorrow -12/07: Patient had dialysis today, 2 L taken off and tolerated that well, patient for biopsy today -12/08: Patient's free kappa/lambda ratio 0.02 and SPEP results concerning for possible multiple myeloma. Discussed with Dr. King with hematology/oncology. Case reviewed, given this is suspicious for multiple myeloma it was recommended to get a skeletal survey and a bone marrow biopsy. Discussed with patient family at bedside and patient agreeable. These orders have been placed. Patient will need to follow-up closely with Dr. King next week in the office if he is discharged over the weekend though currently unclear when patient will be ready for discharge. Renal biopsy pending, did have dialysis again today with no fluid taken off. -12/09: Patient skeletal survey with subtle round lucencies within bilateral humeri and right radius and questionable moth-eaten appearance of inferior aspects of bony pelvis which could be due to to summation of shadows and overlying structures however infiltrative process cannot be excluded. Preliminary pathology also concerning for lytes chains/myeloma. Discussed again with hematology, will move forward with biopsy and patient is scheduled to tentatively follow with him in the office next if results are available to work on/discussed treatment. Did have dialysis today with 4 L off, will likely have dialysis again tomorrow. Discussed with nephrology and hematology 12/10/2024: He is scheduled for outpatient dialysis on Thursday, , Thursday schedule. He is anemic at 7.2 no obvious signs of bleeding. There is concern for multiple myeloma so we will recheck tomorrow morning transfuse as indicated 12/11/2024: Anemia stabilized likely related to the concern for multiple myeloma. Will recheck tomorrow morning and if he does not need any further dialysis per nephrology tomorrow they can plan for discharge home and outpatient dialysis as previously scheduled 12/12/2024: Will recheck hemoglobin this afternoon, if he still below 7 will transfuse as he will be getting dialysis again today # Irregular heart beat-A-fib with RVR -12/07: Patient notes he had an ablation 20 years ago for A-fib and has not had a problem since, on telemetry seems that he was going in and out of a fast rate, looks like it is likely fib but has been unable to be obtained on twelve-lead. Starting patient on metoprolol, first dialysis today as well and holding albuterol treatments, recommendation may have led to or exacerbated underlying A-fib if patient continues to have episodes despite dialysis, metoprolol, and holding albuterol will need to consider risks and benefits of anticoagulation on discharge -12/08: Patient intermittently with A-fib with RVR, adjusting metoprolol dosing, did convert temporarily with IV metoprolol earlier today, will continue to adjust medications. Did have TSH on presentation that was 0.591 -12/09: With 4 L of fluid removed heart rate improved and patient appears to be back in sinus rhythm, awaiting echocardiogram 12/10/2024: Heart rate back to normal sinus rhythm # Acute hypoxic respiratory failure secondary to fluid overload from renal failure -12/08: Patient's shortness of breath seems to worsen with elevated heart rates and improve when he is rate controlled more in sinus rhythm, adjusting metoprolol to achieve better control, TSH within normal limits. Did have chest x-ray on 12/06 that showed possible moderate interstitial pulmonary edema however patient was subsequently dialyzed with 2 L off but did not seem to significantly improve respiratory status, had repeat chest x-ray with increased O2 needs which did also show edema and was given IV Lasix but with suboptimal output -12/09: Patient overnight required Airvo and was in respiratory distress, chest x-ray showed increased edema and he was given IV Lasix, did have some improvement but suboptimal output, today had 4 L out with dialysis and is now down to 4 L nasal cannula with good saturations and significantly improved breathing. Awaiting echocardiogram 12/10/2024: Echocardiogram is unremarkable with an EF of 55% stage I diastolic dysfunction with RVSP of 39 mmHg 12/11/2024: Will plan for an ambulatory pulse ox tomorrow prior to discharge 12/12/2024: He did need 2 L with ambulation but was room air at rest # Hypercalcemia -Unclear if this is secondary to significant dehydration or if this could be a primary process associated with his renal failure and dehydration - Will hydrate with normal saline - Will check PTH and vitamin D - will check Phos - If no or minimal improvement can consider calcitonin and/or bisphosphonates - Will also check serum and urine protein electrophoresis given high calcium with kidney failure, high total protein and globulin, anemia and recent L1 fracture/bone pain in addition to generalized weakness - Chest x-ray also ordered to evaluate for any possible lesions -12/04: Improving with hydration, patient's Phos is high which is likely secondary to his renal failure, notably vitamin D is within normal limits at 43 and PTH is only 15. Suspect that patient's hypercalcemia is largely due to dehydration in addition to his hydrochlorothiazide in addition to multiple calcium based medications being taken daily for reflux but workup still pending. Protein electrophoresis pending and kappa lambda light chains ordered -12/05: Still slightly elevated at 11.5 but has consistently continued to improve, continue IV fluids and avoiding calcium based agents, continue to hold hydrochlorothiazide -12/06: Calcium within normal limits today -12/07: Calcium remains the same today, continue current management -12/08: Discussed with oncology, if potassium is elevated again would recommend 60 pamidronate -12/09: No present indication for bisphosphonate #Hyponatremia -Possibly secondary to dehydration but cannot say definitively, patient additionally on hydrochlorothiazide which will be held - Will order serum osmole's - Check urine studies - TSH - Lipid profile - Monitor I's and O's - Trend BMPs -12/04: Patient actually has elevated serum osmolality with an osmolality of 324 but no hyperglycemia or hyperlipidemia therefore suspect this is either due to his kidney failure with uremia or could possibly pseudohyponatremia due to a paraproteinemia +/- HCTZ, serum and urine protein electrophoresis pending as well as kappa lambda light chains. Notably sodium has slowly up trended to 129 with fluids and cessation of HCTZ, will continue present management while further workup underway -12/05: Sodium of 128, seems to have stabilized, do suspect that this is at least in part due to renal disease with uremia, continue to monitor, continue to hold hydrochlorothiazide -12/06: Hyponatremia continues to remain stable with a sodium of 129, will not resume hydrochlorothiazide on discharge -12/07: Sodium is further improved to 131 today, patient had 2 L removed with dialysis, repeat a.m. -12/08: Sodium 132 today, continues to improve -12/09: Sodium has actually normalized today with dialysis 12/10/2024: Sodium is 131, will continue to monitor but at the moment of no significant concern # Macrocytic anemia -12/04: Patient with hemoglobin 10.7 on presentation with no previous baseline seen in our system, this a.m. hemoglobin 7.9 which is significant drop but no evidence of ongoing bleeding, suspect the patient was significantly volume depleted/dehydrated and was hemoconcentrated especially given drop in all 3 cell lines. MCV is 98.6, will be ordering B12, iron panel, folate -12/05: Hemoglobin slightly lower today, in part likely due to dilution and blood draws, 7.2 this a.m.. Folate is technically within normal limits but on the low side so we will start folic acid but B12 within normal limits, iron and iron saturation within normal limits with elevated ferritin. 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 -12/06: Hemoglobin actually up to 7.7 today, continue to monitor -12/07: No evidence of blood loss, hemoglobin remaining stable, hemoglobin 7.9 today -12/08: Hemoglobin 7.2, has been fluctuating in the sevens, does not appear to have any acute blood loss -12/09: Patient had a.m. hemoglobin of 6.9 however before blood could be given he had dialysis and repeat hemoglobin showed a hemoglobin of 8.5 so will not proceed with transfusion #GERD -Continue PPI -12/04: Reportedly patient's been having significant reflux symptoms for the past year, takes omeprazole at home and has been taking nightly calcium based products for reflux, patient's reflux may be contributing to his nausea, will place on IV PPI twice daily, avoiding calcium based agents -12/05: Patient now on IV PPI every 12, avoiding calcium based agents, symptoms significantly improved -12/06: Doing very well on twice daily PPI, will likely need this on discharge -12/07: Has had significant improvement, currently reporting constipation but no upper GI symptoms -12/08: Still some poor p.o. intake, discussed protein shakes/meal supplements if patient does not want to eat to try to maintain nutrition -12/09: Started on Remeron to try to improve appetite #Hypertension -Will be holding valsartan/hydrochlorothiazide due to the above -12/04: Continue to hold valsartan/hydrochlorothiazide and monitor blood pressure, can consider alternative agent if necessary but will be careful to avoid hypotension -12/05: Hydralazine as needed if needed, continue to hold ARB and HCTZ -12/06: Patient on hydralazine as needed, would likely need to begin antihypertensive, will plan to do this after patient's procedure pending blood pressures -12/07: Amlodipine started, starting metoprolol as above -12/08: Metoprolol being uptitrated as above -12/09: On metoprolol and amlodipine #L1 compression fracture - Patient scheduled for kyphoplasty Thursday - Denies taking any NSAIDs or pain medications - Supportive care -12/04: Continue pain control and supportive care -12/05: Did advise to cancel kyphoplasty appointment given patient still in the hospital and to hold off on rescheduling until we have more answers and a better idea of discharge -12/06: Will need follow-up with pain management upon discharge -12/07: Due to patient having multiple procedures he has not been able to consistently work with PT, will need PT reeval when able and prior to discharge as patient does not often get out of bed and concerns that he could have some difficulty with mobility -12/08: Did work with PT today, felt generally weak and tired -12/09: Will continue to encourage up to chair and mobilization #Type 2 diabetes mellitus -Glucose checks and sliding scale insulin - Had somewhat low glucose of 59 on presentation - Will decrease long-acting insulin - Holding sitagliptin and metformin -12/04: Glucose has actually remained low, will discontinue long-acting insulin altogether -12/05: Glucose has been more stable overnight, continue to hold long-acting insulin -12/06: Glucose 123 this a.m., hemoglobin A1c 6.4, will need to decrease patient's insulin regimen significantly on discharge to avoid hypoglycemia -12/07: Glucose maintaining in the low 100s, continue current management -12/08: Glucose 96 this a.m., has had fairly poor p.o. intake, continue to encourage increased intake -12/09: A.m. glucose 94 this a.m., started on Remeron to try to improve appetite #Hypothyroidism -Continue Synthroid DVT: SCDs Charges/Coding Visit Charges Inpatient E&M: 12914 Subs Hosp L2
--- NOTE | 2024-12-12 11:57 | PCM.PN.REN ---
Subjective Subjective Sitting in chair. No complaints. No overnight events. Objective Data Objective Data Vital Signs: Vital Signs Temp Pulse Resp BP Pulse Ox O2 Del Method O2 Flow Rate 98.0 F 86 17 160/89 H 95 Nasal Cannula 2 12/12/24 09:25 12/12/24 10:18 12/12/24 09:25 12/12/24 09:25 12/12/24 09:25 12/12/24 09:25 12/12/24 09:25 FiO2 58 12/09/24 10:00 Oxygen Flow Rate (L/min) 2 Oxygen Delivery Method Nasal Cannula Weight: 78.5 kg Body Mass Index (BMI) 23.4 Intake & Output: Intake and Output for Last 24 Hours 12/10/24 12/11/24 12/12/24 23:59 23:59 23:59 Intake Total 1590.2 / 1590.2 250.2 / 490.2 350.2 / 350.2 Output Total 4165 / 4165 120 / 470 450 / 450 Balance -2574.8 / -2574.8 130.2 / 20.2 -99.8 / -99.8 Medical Nutrition Assessment Dietitian: Malnutrition Criteria Met Start: 12/04/24 12:12 Freq: Status: Active Protocol: Document 12/04/24 12:12 SLA (Rec: 12/04/24 12:13 SLA 10..25.7) Nutrition Malnutrition Evidence of Yes Malnutrition Exists Malnutrition (severe Acute Illness/Injury ): Evidenced By Suboptimal Energy Intake (Severe),Weight Loss (Severe) Clinical Problem Acute Disease or Injury Related Malnutrition Etiology related to issues 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 Status Active Problem Recommendation Dietitian Will liberalize diet to Regular w/ glucerna shake tid Recommendations/ at meals - once po intake improves, can adjust to carb Changes controlled diet if indicated. Will continue to follow and monitor for changes in pt nutritional status and make additional rec as indicate. Lab / Micro Data 12/12/24 04:45 12/12/24 04:45 Labs: Laboratory Results - last 24 hr 12/11/24 17:25: POC Glucose 190 H 12/11/24 21:25: POC Glucose 174 H 12/12/24 04:45: WBC 3.6 L, RBC 1.91 L, Hgb 6.9 L, Hct 19.4 L, MCV 101.6 H, MCH 36.1 H, MCHC 35.6, RDW Std Deviation 43.8, RDW Coeff of Scotty 11.9, Plt Count 147 L, MPV 10.0, Immature Gran % (Auto) 0.300, Neut % (Auto) 45.2 L, Lymph % (Auto) 36.9, Ellis % (Auto) 14.3 H, Eos % (Auto) 3.0, Baso % (Auto) 0.3, Absolute Neuts (auto) 1.6 L, Absolute Lymphs (auto) 1.34, Nucleated RBC % 0, Sodium 129 L, Potassium 3.6, Chloride 94 L, Carbon Dioxide 22.0, Anion Gap 13, BUN 66 H, Creatinine 5.84 H, Estim Creat Clear Calc 10.33 L, Est GFR (MDRD) Non-Af 9 L, BUN/Creatinine Ratio 11.3, Glucose 150 H, Calcium 10.3 12/12/24 06:37: POC Glucose 133 H Micro: Microbiology 12/03/24 20:38 Urine, Catheterized Urine Culture - Final Culture exhibits no growth. Physical Exam Narrative no obvious distress no JVD s1s2 no murmurs Clear to auscultation anteriorly. On O2 via nasal cannula abdomen soft, nontender no edema Assessment & Plan Assessment/Plan (1) Acute renal failure: PLAN: Baseline creatinine as of beginning of this year was around 1.4 or so. Admission creatinine more than 9. Monterroso indwelling without much urine output. Renal ultrasound pending Associated hypercalcemia recent spine related issues. Will check serum protein electrophoresis, kappa, lambda light chain assay. I will also send other serologies. He also takes Tums 1 a day due to acid reflux. I am not sure if that is the cause of hypercalcemia as well. So far PTH is suppressed. Continue IV fluids for now. If no significant recovery, may need a kidney biopsy. jose hospitalist 12/05/2024; SCr 8.56 on admission--> SCr 8.79 mg/dL today. Potassium and bicarb acceptable. Calcium 14.6 on admission, 11.5 today (continue holding valsartan/hydrochlorothiazide). Patient on IV fluids. Renal serologies pending. Urine output around 1.5 L yesterday (patient has Monterroso). Blood pressures acceptable. Though urine output has picked up renal function is slowly worsening and reviewed that with patient and his today. Reviewed with them that patient is quite possibly heading towards needing renal replacement therapy. Risks and benefits of dialysis explained. Dialysis in inpatient setting and outpatient setting also explained. Questions were answered. Patient is in agreement with moving forward with renal placement therapy. There is no urgent need for renal placement therapy today as potassium and bicarb acceptable and volume status appears compensated. He did state he would like to see how his labs look tomorrow but in agreement with starting hemodialysis if necessary. Recommend surgery consult for hemodialysis catheter placement. Discussed nephrology plan with patient and . Discussed nephrology plan with Dr. Mazariegos. Labs ordered for morning. Assessment and plan reviewed with Dr. Harding 12/06/2024; serum creatinine about the same today, 8.5 mg/dL, bicarb 20, potassium 4.2. Urine output yesterday 1.2 L. Calcium 10.9 today. Overnight patient developed difficulty breathing with wheezing, now on O2 nasal cannula. Can stop IV fluids. He is to have tunneled hemodialysis catheter placed today then will plan for dialysis afterwards and attempt small amount of fluid removal as patient/blood pressure tolerates. Renal serologies are pending. Discussed with patient today about kidney biopsy, risk and benefit of biopsy. Patient is in agreement with having kidney biopsy. Will place orders. Patient is not on any blood thinners. Continue to monitor for renal recovery. Discussed with case management, arrangements underway for outpatient hemodialysis at [facility] diagnosis DEANGELO. Assessment and plan reviewed with Dr. Harding 12/07/2024. Serologies are still pending. Significant protein gap. Hypercalcemia on admission, now better. Recent low back issues. Myeloma is possible. Will plan for kidney biopsy today. Dialysis today, dialysis tomorrow. Discussed with family bedside. 12/08/24. HD today. see orders. SPEP came back positive. K/L ratio skewed. possible myeloma. will call pathology for diagnosis later today. addendum. dw pathology. surprise, no myeloma. dense ATN. 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 needs hematology evaluation. multiple discussions with hospitalist, pathology 12/09/2024. Isolated UF today mostly for fluid removal. Serum protein electrophoresis with IgA and heavy chain monoclonality. Discussed with pathology at [facility] again today. 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 Bone scan done overnight showed osteolytic lesions, again consistent with multiple myeloma. Can send a serum viscosity. Discussed with hospitalist. UF today, likely dialysis tomorrow. Oncology consulted. Bone marrow biopsy ordered today. Discussed with family at bedside. All questions answered. 12/11/2024. Patient was dialyzed yesterday on 12/10/2024. He tolerated dialysis well. Volume and solute are controlled, so there is no need for dialysis today. Will reassess patient again tomorrow. Recheck renal function, volume status, acid-base and electrolytes again tomorrow. 12/12/2024; No acute indication for FIELD SEISMOLOGIST today. SCr 5.84. potassium and bicarb normal. Hgb this am 6.9, repeat hgb ordered. UOP today 450ml. Outpatient HD schedule is TTS at [facility], reviewed this with patient. Discussed nephrology plan with Dr. Paz, possible discharge today therefore patient will go for outpatient HD tomorrow at [facility]. Patient following up with oncology, [facility] has appointment this week. Assessment and plan reviewed with Dr. Harding. (2) Hypercalcemia:
[2024-12-12 12:25] LABS: Hematocrit 20.1 % (40-54); Hemoglobin 7.2 g/dL (13.0-16.5)
--- NOTE | 2024-12-12 13:25 | PCM.DC ---
Discharge Instructions DC O2, CPAP, BIPAP needs Home O2 Discharge instructions: No Dressing / Incision Discharge Activity: Return to Normal Activity Dressing / Incision Call your doctor if you observe: Fever of 101 or Higher, Shortness of breath, Dizziness, Fainting spells, Swelling in the ankles, Chest pain and Increased palpitations (irregular heartbeat) Follow Up Care Test Results: Test results from this visit will be discussed in further detail at your follow-up appointment, if applicable. Discharge Plan Admission Admit Date/Time: 12/03/24 17:03 Attending Provider: Suraj Paz Primary Care Provider: Kevin Flaherty Consulting Providers: Alyssia Harding; Henry Evans; Isauro Moran; Elmer Orozco; Ted Henderson; Adalid King; Srinivasa Boudreaux; Dev Dee; Bismark Lance; Rocco Barcenas; Renay Stapleton NP; Claire Mazariegos Instructions Patient Instructions: ROSANA RN Bone Marrow Aspiration and Biopsy, ROSANA RN Procedural Sedation Additional Instructions / Restrictions: Decrease your Lantus dosing to 5 units at night and make adjustments as indicated by twice daily blood sugar measurements in conjunction with your doctor. Discharge Orders/Prescriptions Prescriptions: New amlodipine 5 mg Tablet 5 mg PO DAILY 30 Days Qty: 30 0RF mirtazapine 15 mg Tablet 7.5 mg PO QHS 30 Days Qty: 15 0RF metoprolol tartrate 25 mg Tablet 25 mg PO BID 30 Days Qty: 60 0RF Continued atorvastatin 20 mg tablet 20 mg PO QDAY Qty: 90 2RF levothyroxine 100 mcg tablet 100 mcg PO DAILY Qty: 100 3RF omeprazole 20 mg capsule,delayed release(DR/EC) 20 mg PO DAILY Qty: 100 3RF magnesium 250 mg tablet 250 mg PO QHS insulin glargine [Lantus Solostar U-100 Insulin] 100 unit/mL (3 mL) insulin pen 21 unit subcut QHS ondansetron 4 mg tablet,disintegrating 4 mg PO Q8H PRN (Reason: nausea and vomiting) Qty: 14 0RF Discontinued metformin 500 mg tablet extended release 24 hr 500 mg PO BID Qty: 180 3RF Januvia 100 mg tablet 100 mg PO DAILY Qty: 100 3RF valsartan-hydrochlorothiazide 160-12.5 mg tablet 1 tab PO DAILY Qty: 90 3RF No Action (DME) True Metrix Glucose Test Strip Strip See Dose Instructions .ROUTE .MEDSUPPLY Qty: 100 1RF Rx Instructions: As directed (DME) blood-glucose meter Kit See Rx Instructions .ROUTE .MEDSUPPLY Qty: 1 0RF Rx Instructions: As directed (DME) lancets [Unilet Lancets] 30 gauge misc See Dose Instructions .ROUTE .MEDSUPPLY Qty: 100 1RF Rx Instructions: As directed (DME) pen needle, diabetic [CareFine Pen Needle] 29 gauge x 1/2 needle See Rx Instructions .Route Qty: 100 3RF Rx Instructions: As directed Referrals / Follow Up: Kevin Flaherty DO [Primary Care Provider, Internal Medicine] - Within 1 Week Adalid King MD [Med Staff - Active Staff, Oncology] - 12/14/24 Referral Note: Call the office prior to coming in to see if they have received the pathology report from the [facility], if not, then the appointment will be rescheduled. Disposition Disposition (needs filled in before D/C Order can be placed): Home Health Service
--- NOTE | 2024-12-12 14:51 | PCM.DC.SUM ---
Providers Date of Admission: 12/03/24 Primary Care Physician: Dr. Kevin Flaherty, DO Consultations 12/03/24 17:47 Consult: Nephrology Routine Consulting Provider: Alyssia Harding Reason for Consult: Acute renal failure EMERGENT Consult: No MD Notified: Yes Date Notified: 12/03/24 Time Notified: 17:27 Method of Notification: Verbal 12/05/24 14:43 Consult: General Surgery Routine Consulting Provider: Henry Evans Reason for Consult: tunneled HD catheter to start dialysis EMERGENT Consult: No MD Notified: Yes Date Notified: 12/05/24 Time Notified: 14:55 Method of Notification: Text 12/08/24 08:58 Consult: Oncology/Hematology Routine Consulting Provider: [facility]) Reason for Consult: Cindy/Quiñones ration 0.02, anemia, DEANGELO, high Ca, concern for MM EMERGENT Consult: No MD Notified: Yes Date Notified: 12/08/24 Time Notified: 09:06 Method of Notification: Text Reason For Visit: ACUTE KIDNEY FAILURE Diagnosis Discharge Diagnosis (1) Acute renal failure: Status: Acute Code(s): N17.9 - Acute kidney failure, unspecified (2) Hypercalcemia: Status: Acute Code(s): E83.52 - Hypercalcemia Medications at Discharge Home Medications blood sugar diagnostic (True Metrix Glucose Test Strip) #100 ea 02/11/23 blood-glucose meter #1 ea 02/11/23 atorvastatin 20 mg tablet 20 mg PO QDAY #90 tabs 09/29/24 lancets 30 gauge (Unilet Lancets) #100 ea 09/29/24 levothyroxine 100 mcg tablet 100 mcg PO DAILY #100 tabs 09/29/24 omeprazole 20 mg capsule,delayed release 20 mg PO DAILY #100 caps 09/29/24 pen needle, diabetic 29 gauge x 1/2 (CareFine Pen Needle) #100 ea 09/29/24 ondansetron 4 mg disintegrating tablet 4 mg PO Q8H PRN nausea and vomiting #14 tabs 11/29/24 insulin glargine 100 unit/mL (3 mL) subcutaneous pen (Lantus Solostar U-100 Insulin) 21 unit subcut QHS 12/03/24 magnesium 250 mg tablet 250 mg PO QHS 12/03/24 amlodipine 5 mg tablet 5 mg PO DAILY 30 days #30 tabs 12/12/24 metoprolol tartrate 25 mg tablet 25 mg PO BID 30 days #60 tabs 12/12/24 mirtazapine 15 mg tablet 7.5 mg (1/2 x 15 mg) PO QHS 30 days #15 tabs 12/12/24 Hospital Course Operations None Procedures 2-D Echocardiogram and Dialysis Summary of Care Provided Minutes Spent on Discharge: 38 Hospital Course: Per HPI: LINA ORTA, is a 83-year-old male history of hypothyroidism, diabetes, GERD, hypertension who presented to [facility] ED 12/03/24 with nausea and vomiting. He was recently diagnosed with an L1 compression fracture and has an upcoming kyphoplasty. Currently feeling dehydrated and has had intermittent nausea and vomiting for weeks. Also feeling generally weak and unwell. In the ED temp 96.5, heart rate 88, blood pressure 167/80, respiratory rate 16 pulse ox 97% on room air. CBC with white count of 8, hemoglobin 10.7, platelet count 206. Sodium 126, bicarb 19.5, gap of 23, BUN 113 with a creatinine of 8.56, glucose 58 and calcium 14.6. Patient given 2 L of IV fluids and hospitalist consulted for admission for acute kidney failure. Patient evaluated bedside with present. They report that he was found to have a compression fracture at the end of September, since that time he is intermittently been having problems with nausea and vomiting, he is felt generally weak and had very poor p.o. intake specially for the past 2 weeks. Had been urinating with a little bit of burning at times and suprapubic discomfort however in the ED unable to urinate. Denies any diarrhea and reports he is actually been having problems with constipation. No chest pain or current shortness of breath, denies taking any NSAIDs for his back pain. Hospital Course: #Acute kidney failure-concern for multiple myeloma -Patient with a creatinine around 1.5 at baseline with most recent value 9 months ago being 1.5 to - Presenting now with a creatinine of 8.56 - Bicarb 19.5 - Patient not hyperkalemic - Vitally stable and not volume overloaded - Patient alert, no seizure activity, confusion, altered mental status - Presently does not seem to have any indications for emergent dialysis - Suspect that patient's nausea and vomiting with very poor p.o. intake on top of continuing to take his valsartan/hydrochlorothiazide caused or largely contributed to his worsening renal failure - Patient reportedly had been urinating at home and even urinated this morning however in the ED unable to urinate and has 280 on bladder scan - Unclear if there has been an obstructive component to this as well given patient's report of urinating okay prior to coming in - Will have Monterroso catheter placed given patient reporting he is unable to urinate in the ED and bladder scan shows 280 - IV fluids - Will check UA given reports of suprapubic discomfort - Check urine studies - Kidney and bladder ultrasound -Check CK - Discussed with nephrology, nephrology consult placed -12/04: Despite sodium and calcium improving, kidney function has remained about the same, BUN this a.m. 112 with a creatinine of 8.49. UA with protein and occult blood, rare bacteria and does not seem UA is indicative of infection. FEUrea is 61.8 suggesting intrinsic renal disease. SPEP and UPEP pending, nephrology consulted, kidney and bladder ultrasound ordered, Monterroso catheter in place, patient has had 1300 output since admission yesterday evening. [place] lambda light chains ordered in addition to protein electrophoresis. Discussed with nephrology. -12/05: BUN 107 with a creatinine slightly worse of 8.79, still making urine, nephrology following, lab workup pending, kidney and bladder ultrasound is ordered and pending -12/06: Kidney and bladder ultrasound normal, kidney function virtually unchanged since presentation, patient for tunneled dialysis catheter today per nephrology recommendation to begin dialysis, discussed with nephrology, patient also for kidney biopsy tomorrow -12/07: Patient had dialysis today, 2 L taken off and tolerated that well, patient for biopsy today -12/08: Patient's free kappa/lambda ratio 0.02 and SPEP results concerning for possible multiple myeloma. Discussed with Dr. King with hematology/oncology. Case reviewed, given this is suspicious for multiple myeloma it was recommended to get a skeletal survey and a bone marrow biopsy. Discussed with patient family at bedside and patient agreeable. These orders have been placed. Patient will need to follow-up closely with Dr. King next week in the office if he is discharged over the weekend though currently unclear when patient will be ready for discharge. Renal biopsy pending, did have dialysis again today with no fluid taken off. -12/09: Patient skeletal survey with subtle round lucencies within bilateral humeri and right radius and questionable moth-eaten appearance of inferior aspects of bony pelvis which could be due to to summation of shadows and overlying structures however infiltrative process cannot be excluded. Preliminary pathology also concerning for lytes chains/myeloma. Discussed again with hematology, will move forward with biopsy and patient is scheduled to tentatively follow with him in the office next if results are available to work on/discussed treatment. Did have dialysis today with 4 L off, will likely have dialysis again tomorrow. Discussed with nephrology and hematology 12/10/2024: He is scheduled for outpatient dialysis on Thursday, , Thursday schedule. He is anemic at 7.2 no obvious signs of bleeding. There is concern for multiple myeloma so we will recheck tomorrow morning transfuse as indicated 12/11/2024: Anemia stabilized likely related to the concern for multiple myeloma. Will recheck tomorrow morning and if he does not need any further dialysis per nephrology tomorrow they can plan for discharge home and outpatient dialysis as previously scheduled 12/12/2024: Hemoglobin this afternoon was 7.2 on recheck from 6.9 given his borderline status will transfuse 1 unit prior to discharge. I discussed with him and his family the plan for discharge and they expressed understanding of the risks and benefits of going home and he would like to go home today. 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 Starting patient on metoprolol, first dialysis today as well and holding albuterol treatments, recommendation may have led to or exacerbated underlying A-fib if patient continues to have episodes despite dialysis, metoprolol, and holding albuterol will need to consider risks and benefits of anticoagulation on discharge -12/08: Patient intermittently with A-fib with RVR, adjusting metoprolol dosing, did convert temporarily with IV metoprolol earlier today, will continue to adjust medications. Did have TSH on presentation that was 0.591 -12/09: With 4 L of fluid removed heart rate improved and patient appears to be back in sinus rhythm, awaiting echocardiogram 12/10/2024: Heart rate back to normal sinus rhythm 12/12/2024: Echocardiogram with 55% EF and stage I diastolic dysfunction RVSP of 39 mmHg. Atrial structures are normal therefore we will hold off on any anticoagulation at this time pending continued evaluation for his hematologic dyscrasia # Acute hypoxic respiratory failure secondary to fluid overload from renal failure -12/08: Patient's shortness of breath seems to worsen with elevated heart rates and improve when he is rate controlled more in sinus rhythm, adjusting metoprolol to achieve better control, TSH within normal limits. Did have chest x-ray on 12/06 that showed possible moderate interstitial pulmonary edema however patient was subsequently dialyzed with 2 L off but did not seem to significantly improve respiratory status, had repeat chest x-ray with increased O2 needs which did also show edema and was given IV Lasix but with suboptimal output -12/09: Patient overnight required Airvo and was in respiratory distress, chest x-ray showed increased edema and he was given IV Lasix, did have some improvement but suboptimal output, today had 4 L out with dialysis and is now down to 4 L nasal cannula with good saturations and significantly improved breathing. Awaiting echocardiogram 12/10/2024: Echocardiogram is unremarkable with an EF of 55% stage I diastolic dysfunction with RVSP of 39 mmHg 12/11/2024: Will plan for an ambulatory pulse ox tomorrow prior to discharge 12/12/2024: He did need 2 L with ambulation but was room air at rest this morning and then on repeat he did not require any oxygen with ambulation or at rest # Hypercalcemia -Unclear if this is secondary to significant dehydration or if this could be a primary process associated with his renal failure and dehydration - Will hydrate with normal saline - Will check PTH and vitamin D - will check Phos - If no or minimal improvement can consider calcitonin and/or bisphosphonates - Will also check serum and urine protein electrophoresis given high calcium with kidney failure, high total protein and globulin, anemia and recent L1 fracture/bone pain in addition to generalized weakness - Chest x-ray also ordered to evaluate for any possible lesions -12/04: Improving with hydration, patient's Phos is high which is likely secondary to his renal failure, notably vitamin D is within normal limits at 43 and PTH is only 15. Suspect that patient's hypercalcemia is largely due to dehydration in addition to his hydrochlorothiazide in addition to multiple calcium based medications being taken daily for reflux but workup still pending. Protein electrophoresis pending and kappa lambda light chains ordered -12/05: Still slightly elevated at 11.5 but has consistently continued to improve, continue IV fluids and avoiding calcium based agents, continue to hold hydrochlorothiazide -12/06: Calcium within normal limits today -12/07: Calcium remains the same today, continue current management -12/08: Discussed with oncology, if potassium is elevated again would recommend 60 pamidronate -12/09: No present indication for bisphosphonate #Hyponatremia -Possibly secondary to dehydration but cannot say definitively, patient additionally on hydrochlorothiazide which will be held - Will order serum osmole's - Check urine studies - TSH - Lipid profile - Monitor I's and O's - Trend BMPs -12/04: Patient actually has elevated serum osmolality with an osmolality of 324 but no hyperglycemia or hyperlipidemia therefore suspect this is either due to his kidney failure with uremia or could possibly pseudohyponatremia due to a paraproteinemia +/- HCTZ, serum and urine protein electrophoresis pending as well as kappa lambda light chains. Notably sodium has slowly up trended to 129 with fluids and cessation of HCTZ, will continue present management while further workup underway -12/05: Sodium of 128, seems to have stabilized, do suspect that this is at least in part due to renal disease with uremia, continue to monitor, continue to hold hydrochlorothiazide -12/06: Hyponatremia continues to remain stable with a sodium of 129, will not resume hydrochlorothiazide on discharge -12/07: Sodium is further improved to 131 today, patient had 2 L removed with dialysis, repeat a.m. -12/08: Sodium 132 today, continues to improve -12/09: Sodium has actually normalized today with dialysis 12/10/2024: Sodium is 131, will continue to monitor but at the moment of no significant concern # Macrocytic anemia -12/04: Patient with hemoglobin 10.7 on presentation with no previous baseline seen in our system, this a.m. hemoglobin 7.9 which is significant drop but no evidence of ongoing bleeding, suspect the patient was significantly volume depleted/dehydrated and was hemoconcentrated especially given drop in all 3 cell lines. MCV is 98.6, will be ordering B12, iron panel, folate -12/05: Hemoglobin slightly lower today, in part likely due to dilution and blood draws, 7.2 this a.m.. Folate is technically within normal limits but on the low side so we will start folic acid but B12 within normal limits, iron and iron saturation within normal limits with elevated ferritin. 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 -12/06: Hemoglobin actually up to 7.7 today, continue to monitor -12/07: No evidence of blood loss, hemoglobin remaining stable, hemoglobin 7.9 today -12/08: Hemoglobin 7.2, has been fluctuating in the sevens, does not appear to have any acute blood loss -12/09: Patient had a.m. hemoglobin of 6.9 however before blood could be given he had dialysis and repeat hemoglobin showed a hemoglobin of 8.5 so will not proceed with transfusion 12/12/2024: Will plan for 1 unit PRBCs prior to discharge today, he will likely need iron infusions as well as erythropoietin with dialysis #GERD -Continue PPI -12/04: Reportedly patient's been having significant reflux symptoms for the past year, takes omeprazole at home and has been taking nightly calcium based products for reflux, patient's reflux may be contributing to his nausea, will place on IV PPI twice daily, avoiding calcium based agents -12/05: Patient now on IV PPI every 12, avoiding calcium based agents, symptoms significantly improved -12/06: Doing very well on twice daily PPI, will likely need this on discharge -12/07: Has had significant improvement, currently reporting constipation but no upper GI symptoms -12/08: Still some poor p.o. intake, discussed protein shakes/meal supplements if patient does not want to eat to try to maintain nutrition -12/09: Started on Remeron to try to improve appetite 12/12/2024: Will continue with Remeron on discharge for appetite #Hypertension -Will be holding valsartan/hydrochlorothiazide due to the above -12/04: Continue to hold valsartan/hydrochlorothiazide and monitor blood pressure, can consider alternative agent if necessary but will be careful to avoid hypotension -10/6: Hydralazine as needed if needed, continue to hold ARB and HCTZ -12/06: Patient on hydralazine as needed, would likely need to begin antihypertensive, will plan to do this after patient's procedure pending blood pressures -12/07: Amlodipine started, starting metoprolol as above -12/08: Metoprolol being uptitrated as above -12/09: On metoprolol and amlodipine 12/12/2024: Will continue with metoprolol and amlodipine on discharge, will hold his hydrochlorothiazide given his renal failure and episodic hyponatremia #L1 compression fracture - Patient scheduled for kyphoplasty Thursday - Denies taking any NSAIDs or pain medications - Supportive care -12/04: Continue pain control and supportive care -12/05: Did advise to cancel kyphoplasty appointment given patient still in the hospital and to hold off on rescheduling until we have more answers and a better idea of discharge -12/06: Will need follow-up with pain management upon discharge -12/07: Due to patient having multiple procedures he has not been able to consistently work with PT, will need PT reeval when able and prior to discharge as patient does not often get out of bed and concerns that he could have some difficulty with mobility -12/08: Did work with PT today, felt generally weak and tired -12/09: Will continue to encourage up to chair and mobilization #Type 2 diabetes mellitus -Glucose checks and sliding scale insulin - Had somewhat low glucose of 59 on presentation - Will decrease long-acting insulin - Holding sitagliptin and metformin -12/04: Glucose has actually remained low, will discontinue long-acting insulin altogether -12/05: Glucose has been more stable overnight, continue to hold long-acting insulin -12/06: Glucose 123 this a.m., hemoglobin A1c 6.4, will need to decrease patient's insulin regimen significantly on discharge to avoid hypoglycemia -12/07: Glucose maintaining in the low 100s, continue current management -12/08: Glucose 96 this a.m., has had fairly poor p.o. intake, continue to encourage increased intake -12/09: A.m. glucose 94 this a.m., started on Remeron to try to improve appetite 12/12/2024: Will discharge on his Lantus but decrease the dose to 5 mg recommend twice daily checks of his blood sugar to monitor and make adjustments in conjunction with his PCP #Hypothyroidism -Continue Synthroid Physical Exam Narrative General: Alert, Oriented x3, Cooperative, No apparent distress HEENT: Atraumatic, PERRLA, EOMI, Normocephalic Oral: Moist Mucosa Neck: Supple, No JVD Lungs: Diminished bilateral bases, Normal air movement, No rhonchi, No wheeze, No rales Cardiovascular: Regular rate, Regular Rhythm, Normal S1, Normal S2, No murmurs Abdomen: Soft, Non Tender, Non-Distended, No Hepato-splenomegaly Extremities: No edema, Capillary Refill Less than 3 Seconds Skin: No rashes, No breakdown Musculoskeletal: No Tenderness to Palpation of Joints or Extremities Neurological: No focal neurological deficits, moves all extremities Psych/Mental Status: Normal Affect, Appropriate Medical Records Data Medical Nutrition Assessment Dietitian: Malnutrition Criteria Met Start: 12/04/24 12:12 Freq: Status: Active Protocol: Document 12/04/24 12:12 SLA (Rec: 12/04/24 12:13 SLA [id number]) Nutrition Malnutrition Evidence of Yes Malnutrition Exists Malnutrition (severe Acute Illness/Injury ): Evidenced By Suboptimal Energy Intake (Severe),Weight Loss (Severe) Clinical Problem Acute Disease or Injury Related Malnutrition Etiology related to issues w/ nausea and 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 Status Active Problem Recommendation Dietitian Will liberalize diet to Regular w/ glucerna shake tid Recommendations/ at meals - once po intake improves, can adjust to carb Changes controlled diet if indicated. Will continue to follow and monitor for changes in pt nutritional status and make additional rec as indicate. Weight / BMI Weight Weight: 173 lb 1.006 oz Body Mass Index (BMI) 23.4 ABG / Lab / Microbiology Data 12/12/24 11:50 12/12/24 04:45 Laboratory: Laboratory Results - last 24 hr 12/09/24 09:35: Crossmatch See Detail 12/11/24 17:25: POC Glucose 190 H 12/11/24 21:25: POC Glucose 174 H 12/12/24 04:45: WBC 3.6 L, RBC 1.91 L, Hgb 6.9 L, Hct 19.4 L, MCV 101.6 H, MCH 36.1 H, MCHC 35.6, RDW Std Deviation 43.8, RDW Coeff of Scotty 11.9, Plt Count 147 L, MPV 10.0, Immature Gran % (Auto) 0.300, Neut % (Auto) 45.2 L, Lymph % (Auto) 36.9, Faulk % (Auto) 14.3 H, Eos % (Auto) 3.0, Baso % (Auto) 0.3, Absolute Neuts (auto) 1.6 L, Absolute Lymphs (auto) 1.34, Nucleated RBC % 0, Sodium 129 L, Potassium 3.6, Chloride 94 L, Carbon Dioxide 22.0, Anion Gap 13, BUN 66 H, Creatinine 5.84 H, Estim Creat Clear Calc 10.33 L, Est GFR (MDRD) Non-Af 9 L, BUN/Creatinine Ratio 11.3, Glucose 150 H, Calcium 10.3 12/12/24 06:37: POC Glucose 133 H 12/12/24 11:40: POC Glucose 213 H 12/12/24 11:50: Hgb 7.2 L, Hct 20.1 L, Blood Type O POSITIVE, Antibody Screen NEGATIVE, Crossmatch See Detail Microbiology: Microbiology 12/03/24 20:38 Urine, Catheterized Urine Culture - Final Culture exhibits no growth. D/C Instructions Call your doctor if you observe: Fever of 101 or Higher, Shortness of breath, Dizziness, Fainting spells, Swelling in the ankles, Chest pain and Increased palpitations (irregular heartbeat) DC O2, CPAP, BIPAP Needs Home O2 Discharge instructions: No Meaningful Use Info Meaningful Use Meaningful Use Diagnoses (Choose all that apply): None applicable Discharge Plan Admission Admit Date/Time: 12/03/24 17:03 Attending Provider: Suraj Paz Primary Care Provider: Kevin Flaherty Consulting Providers: Alyssia Harding; Henry Evans; Isauro Morna; Elmer Orozco; Ted Henderson; Adalid King; Srinivasa Boudreaux; Dev Dee; Bismark Lance; Rocco Barcenas; Renay Stapleton NP; Claire Mazariegos Instructions Patient Instructions: ROSANA RN Bone Marrow Aspiration and Biopsy, RAD RN Procedural Sedation Additional Instructions / Restrictions: Decrease your Lantus dosing to 5 units at night and make adjustments as indicated by twice daily blood sugar measurements in conjunction with your doctor. Discharge Orders/Prescriptions Prescriptions: New amlodipine 5 mg Tablet 5 mg PO DAILY 30 Days Qty: 30 0RF mirtazapine 15 mg Tablet 7.5 mg PO QHS 30 Days Qty: 15 0RF metoprolol tartrate 25 mg Tablet 25 mg PO BID 30 Days Qty: 60 0RF Continued atorvastatin 20 mg tablet 20 mg PO QDAY Qty: 90 2RF levothyroxine 100 mcg tablet 100 mcg PO DAILY Qty: 100 3RF omeprazole 20 mg capsule,delayed release(DR/EC) 20 mg PO DAILY Qty: 100 3RF magnesium 250 mg tablet 250 mg PO QHS insulin glargine [Lantus Solostar U-100 Insulin] 100 unit/mL (3 mL) insulin pen 21 unit subcut QHS ondansetron 4 mg tablet,disintegrating 4 mg PO Q8H PRN (Reason: nausea and vomiting) Qty: 14 0RF Discontinued metformin 500 mg tablet extended release 24 hr 500 mg PO BID Qty: 180 3RF Januvia 100 mg tablet 100 mg PO DAILY Qty: 100 3RF valsartan-hydrochlorothiazide 160-12.5 mg tablet 1 tab PO DAILY Qty: 90 3RF No Action (DME) True Metrix Glucose Test Strip Strip See Dose Instructions .ROUTE .MEDSUPPLY Qty: 100 1RF Rx Instructions: As directed (DME) blood-glucose meter Kit See Rx Instructions .ROUTE .MEDSUPPLY Qty: 1 0RF Rx Instructions: As directed (DME) lancets [Unilet Lancets] 30 gauge misc See Dose Instructions .ROUTE .MEDSUPPLY Qty: 100 1RF Rx Instructions: As directed (DME) pen needle, diabetic [CareFine Pen Needle] 29 gauge x 1/2 needle See Rx Instructions .Route Qty: 100 3RF Rx Instructions: As directed Referrals / Follow Up: Kevin Flaherty DO [Primary Care Provider, Internal Medicine] - 12/13/24 1:30 pm Adalid King MD [Med Staff - Active Staff, Oncology] - 12/14/24 Referral Note: Call the office prior to coming in to see if they have received the pathology report from the [facility], if not, then the appointment will be rescheduled. Disposition Disposition (needs filled in before D/C Order can be placed): Home Health Service Charges/Coding Visit Charges Inpatient E&M: 61786 Disch Hosp >30min
--- NOTE | 2024-12-12 15:43 | PHA.DC.MC.R ---
Pharmacy [facility] Counseling Pharmacy Service has performed discharge medication reconciliation and counseling for this patient. 1. AMLODIPINE 5MG PO DAILY 2. METOPROLOL TARTRATE 25MG PO BID 3. MIRTAZAPINE 7.5MG PO QHS 4. STOP JANUVIA, METFORMIN, LOSARTAN/HCTZ 5. DECREASE LANTUS TO 5UNITS QHS The patient's discharge medication list was reviewed for discrepancies and discrepancies were resolved. The patient was counseled on the following discharge medications and changes in medications for homegoing were reviewed. The Reason for Use, instructions for use, and potential side effects were reviewed for all new medications. The patient's questions regarding all of their medications were answered. The patient was able to verbally demonstrate an understanding of their discharge medications. Medications at Discharge Home Medications blood sugar diagnostic (True Metrix Glucose Test Strip) #100 ea 02/11/23 blood-glucose meter #1 ea 02/11/23 atorvastatin 20 mg tablet 20 mg PO QDAY #90 tabs 09/29/24 lancets 30 gauge (Unilet Lancets) #100 ea 09/29/24 levothyroxine 100 mcg tablet 100 mcg PO DAILY #100 tabs 09/29/24 omeprazole 20 mg capsule,delayed release 20 mg PO DAILY #100 caps 09/29/24 pen needle, diabetic 29 gauge x 1/2 (CareFine Pen Needle) #100 ea 09/29/24 ondansetron 4 mg disintegrating tablet 4 mg PO Q8H PRN nausea and vomiting #14 tabs 11/29/24 insulin glargine 100 unit/mL (3 mL) subcutaneous pen (Lantus Solostar U-100 Insulin) 21 unit subcut QHS 12/03/24 magnesium 250 mg tablet 250 mg PO QHS 12/03/24 amlodipine 5 mg tablet 5 mg PO DAILY 30 days #30 tabs 12/12/24 metoprolol tartrate 25 mg tablet 25 mg PO BID 30 days #60 tabs 12/12/24 mirtazapine 15 mg tablet 7.5 mg (1/2 x 15 mg) PO QHS 30 days #15 tabs 12/12/24
[2024-12-13 10:15] LABS: Bone Marrow Aspiraton SEE PATHOLOGY REPORT
[2024-12-14 07:08] LABS: Viscosity, Serum 2.4 rel.saline (1.4-2.1)
== END 2024-12-12 19:08 | disposition home health service (06) | DRG 682 ==
LOC: ED 16:21 → PCU 17:06
PROVIDERS: Anesthesiology; Internal Medicine Hematology & Oncology; Internal Medicine Nephrology; Radiology Nuclear Radiology; Surgery; Admitting Provider Internal Medicine; Emergency Provider Emergency Medicine; PCP Family Medicine; Visit Provider Family Medicine
PROC: 02HV33Z Insertion of Infusion Device into Superior Vena Cava, Percutaneous Approach (ICD-10-PCS; principal; 2024-12-06 12:45)
DX: N17.9 Acute kidney failure, unspecified (principal); E43 Unspecified severe protein-calorie malnutrition; J96.01 Acute respiratory failure with hypoxia; C90.00 Multiple myeloma not having achieved remission; S32.019A Unspecified fracture of first lumbar vertebra, initial encounter for closed fracture; E87.1 Hypo-osmolality and hyponatremia; D63.1 Anemia in chronic kidney disease; Z99.2 Dependence on renal dialysis; E11.42 Type 2 diabetes mellitus with diabetic polyneuropathy; E03.9 Hypothyroidism, unspecified; I12.9 Hypertensive chronic kidney disease with stage 1 through stage 4 chronic kidney disease, or unspecified chronic kidney disease; I48.91 Unspecified atrial fibrillation; D53.9 Nutritional anemia, unspecified; N18.1 Chronic kidney disease, stage 1; Z79.4 Long term (current) use of insulin; K21.9 Gastro-esophageal reflux disease without esophagitis; E83.52 Hypercalcemia; E78.5 Hyperlipidemia, unspecified; E86.0 Dehydration; E11.22 Type 2 diabetes mellitus with diabetic chronic kidney disease; Z79.84 Long term (current) use of oral hypoglycemic drugs; Z79.890 Hormone replacement therapy; Z79.899 Other long term (current) drug therapy; M89.8X9 Other specified disorders of bone, unspecified site; Z68.23 Body mass index [BMI] 23.0-23.9, adult
CPT/HCPCS: 36415; 36600; 71045; 71046; 76000; 76770; 76942; 77012; 77075; 80048; 80053; 80061; 81001; 82043; 82306; 82436; 82550; 82570; 82607; 82728; 82746; 82784; 82803; 82962; 83036; 83520; 83540; 83550; 83690; 83735; 83880; 83883; 83930; 83935; 83970; 84100; 84133; 84165; 84166; 84300; 84443; 84540; 85014; 85018; 85025; 85027; 85045; 85610; 85730; 85810; 86037; 86160; 86225; 86334; 86644; 86850; 86900; 86901; 87086; 87340; 90937; 93005; 93306; 94640; 94660; 94762; 96374; 97116; 97162; 97166; 97530; 97535; 97802; 97803; 99156; 99157; 99283; C1750; P9016; A4216; G0257; J1938; J2405; J2597

== ENCOUNTER 2025-02-15 05:49 | Inpatient (IN) | payer MEDICARE, SELFPAY ==
[2025-02-15] VITALS (18 sets, daily range): BP systolic 148–165; BP diastolic 74–86; PULSE 69–103; RESP 10–20; TEMP 36.4–36.9; O2SAT 88–100; BMI 23.1; BMI 23.6
--- NOTE | 2025-02-15 06:13 | EKG12_ITS ---
Test Reason : CP Blood Pressure : */* mmHG Vent. Rate : 77 BPM Atrial Rate : 77 BPM P-R Int : 178 ms QRS Dur : 92 ms QT Int : 376 ms P-R-T Axes : 14 4 116 degrees QTcB Int : 425 ms Sinus rhythm with Premature atrial complexes Nonspecific T wave abnormality Abnormal ECG Confirmed by Henry Ahuja ([id number]), editor managing newspaper MABEL LARRY ([id number]) on 02/17/2025 9:58:08 AM Referred By: PADILLA Confirmed By: Henry Ahuja
--- NOTE | 2025-02-15 06:13 | CT_ITS ---
PROCEDURE: ABDOMEN/PEL W ORAL CONT ONLY 02/15/2025 REASON FOR EXAM: UPPER ABD PAIN / ? ILEUS VERSUS OBSTRUCTION TECHNIQUE: Procedure Code: [id number] Modality: CT Procedure: ABDOMEN/PEL W ORAL CONT ONLY Noncontrast technique limits evaluation of the abdominal and pelvic viscera. Coronal and Sagittal reconstruction series were provided. One or more dose reduction techniques were used (e.g., Automated exposure control, adjustment of the mA and/or kV according to patient size, use of iterative reconstruction technique). RADIATION DOSE SUMMARY: CTDlvol: 7.99 mGy DLP: 433.23 mGycm COMPARISON: None. FINDINGS: Lung bases: Large left and small right pleural effusions with diffuse interstitial pulmonary densities may represent pulmonary edema. Liver: Unremarkable. Gallbladder: Distended. No biliary dilation. Spleen: Unremarkable. Pancreas: Unremarkable. Adrenals: Unremarkable. Kidneys: A hyperdense proteinaceous cyst at the midpole of the left kidney measures 1.2 cm. Perinephric fat stranding. No hydronephrosis. No nephrolithiasis. Bladder: Distended. Reproductive Organs: Enlarged prostate measures 5.7 cm in diameter. Bowel: No bowel wall thickening. No bowel obstruction. Appendix: Normal Lymph nodes: No lymphadenopathy. Vasculature: No aneurysm. Peritoneum / Retroperitoneum: No free air or free fluid. Bones: No bowel obstruction. No bowel wall thickening. CT/Abdomen/Pel W ORAL Cont Only IMPRESSION: A hyperdense proteinaceous cyst at the midpole of the left kidney measures 1.2 cm. Perinephric fat stranding. No hydronephrosis. No nephrolithiasis. Correlation with urinalysis is recommended. Distended bladder with enlarged prostate. Reading Location: [facility]
[2025-02-15] MEDS: Lidocaine 2% Viscous15 ML UDC 15 ML PO (06:20)
[2025-02-15 06:25] LABS: Hematocrit 25.1 % (40-54); Hemoglobin 8.5 g/dL (13.0-16.5); Immature Granulocytes Count 0.120 X10^3/uL (0.0-0.0); Mean Corp Hgb Conc 33.9 g/dL (32-36); Mean Corpuscular Volume 98.8 fL (80-94); Mean Platelet Vol. 10.6 fl (6.2-12.0); NRBC Flagged by Analyzer 0 % (0-5); Platelet Count 147 K/mm3 (150-450); RBC Distribution Width CV 13.8 % (11.6-14.6); RBC Distribution Width SD 49.7 fl (35.1-43.9); Red Blood Count 2.54 M/mm3 (4.6-6.2); White Blood Count 9.5 K/mm3 (4.4-11.0)
--- OUTSIDE RECORDS SUMMARY | 2025-02-15 06:40 | XMS RPT_ITS | CCD ---
Author Organization [facility] Care Team Providers Care Operative Supervisor Name Role Phone LUNA ASHTON Unavailable LUNA ASHTON Unavailable Dr. Luna Ashton Primary Care Provider Dr. Luna Ashton Attending Provider Dr. Luna Ashton Referring Provider MARIAA Thakkar Attending Provider Dr. Luna Hill Primary Care Provider Dr. Luna Ashton Attending Provider Dr. Luna Ashton Referring Provider MARIAA Thakkar Attending Provider Dr. Luna Hill Primary Care Provider Dr. Luna Ashton Attending Provider Dr. Luna Ashton Referring Provider Dr. Luna Ashton Primary Care Provider Dr. Luna Ashton Attending Provider Dr. Luna Ashton Referring Provider Dr. Luna Ashton Primary Care Provider Dr. Luna Ashton Attending Provider Dr. Luna Ashton Referring Provider Dr. Luna Ashton Primary Care Provider Dr. Luna Ashton Attending Provider Dr. Luna Ashton Referring Provider Dr. Luna Ashton DO Primary Care Provider Reynold ERICKSON, Dr. Luna Judge Attending Provider [phone] Reynold ERICKSON, Dr. Luna Judge Referring Provider [phone] Reynold ERICKSON, Dr. Luna Judge Primary Care Provider [phone] Reynold ERICKSON, Dr. Luna Judge Attending Provider [phone] Reynold ERICKSON, Dr. Luna Judge Referring Provider [phone] Reynold ERICKSON, Dr. Luna Judge Other Provider [phone] Que SHIELDS, Dr. Coronel Attending Provider [phone] Victor M Petersen Attending Provider [phone] Victor M Petersen Referring Provider [phone] Reynold ERICKSON, Dr. Lnua Judge Primary Care Physician Reynold ERICKSON, Dr. Luna Judge Attending Physician [phone] Reynold ERICKSON, Dr. Luna Judge Nurse Practitioner [phone] Dr. Homer Grey MD Attending Physician [phone] Victor M Petersen Attending Physician Dr. Omari Luna MD Emergency Department Physici an Yair SHIELDS, Dr. Rangel Admitting Physician Dr. Claire Mazariegos MD Attending Physician Mehdi SHIELDS, Dr. Cade Nurse Practitioner Dr. Claire Mazariegos MD Nurse Practitioner Dr. Luna Ashton DO Primary Care Physician Dr. Luna Ashton DO Attending Physician [phone] Reynold ERICKSON, Dr. Luna Judge Referring Provider [phone] Reynold ERICKSON, Dr. Luna Judge Nurse Practitioner [phone] Dr. Homer Grey MD Attending Physician Victor M Petersen Attending Physician Victor M Petersen Referring Provider [phone] Jeremy SHIELDS, Dr. Salcido Emergency Department Physici an Yair SHIELDS, Dr. Rangel Admitting Physician Yair SHIELDS, Dr. Rangel Nurse Practitioner Mehdi SHIELDS, Dr. Cade Nurse Practitioner Cristina SHIELDS, Dr. Figueroa Nurse Practitioner Luisa SHIELDS, Dr. Box Nurse Practitioner Pam SHIELDS, Dr. Payne Nurse Practitioner Beatriz SHIELDS, Dr. Jean Nurse Practitioner Unavaila jean pierre King MD, Dr. Cordoba Nurse Practitioner Field SHIELDS, Dr. Bernabe Nurse Practitioner Luiz SHIELDS, Dr. Méndez Nurse Practitioner Unavailable Natalio SHIELDS, Dr. Sofia Nurse Practitioner Swapna ERICKSON, Dr. Valiente Nurse Practitioner Daya CAMACHO-C, Renay Nurse Practitioner Brandi SHIELDS, Dr. Suraj Georges Attending Physician Yair SHIELDS, Dr. Rangel Attending Physician Cristina SHIELDS, Dr. Figueroa Attending Physician Que SHIELDS, Dr. Coronel Referring Provider Yair SHIELDS, Dr. Rangel Referring Provider Susan Medina PA-C Attending Physician Latrell SHIELDS, Dr. Agustin Attending Physician Brandi SHIELDS, Dr. Suraj Georges Nurse Practitioner Christine SHIELDS, Dr. Cordoba Attending Physician Dr. Adalid King MD Referring Provider Dr. Luna Ashton DO Primary Care Physician Reynold ERICKSON, Dr. Luna Judge Attending Physician Dr. Luna Ashton DO Referring Provider Dr. Luna Ashton DO Nurse Practitioner Que SHIELDS, Dr. Coronel Attending Physician Victor M Petersen Attending Physician Victor M Petersen Referring Provider Jeremy SHIELDS, Dr. Salcido Emergency Department Physici an Yair SHIELDS, Dr. Rangel Admitting Physician Yair SHIELDS, Dr. Rangel Nurse Practitioner Mehdi SHIELDS, Dr. Cade Nurse Practitioner Cristina SHIELDS, Dr. Figueroa Nurse Practitioner Luisa SHIELDS, Dr. Box Nurse Practitioner Pam SHIELDS, Dr. Payne Nurse Practitioner Beatriz SHIELDS, Dr. Jean Nurse Practitioner Unavaila jean pierre King MD, Dr. Cordoba Nurse Practitioner Field SHIELDS, Dr. Bernabe Nurse Practitioner Luiz SHIELDS, Dr. Méndez Nurse Practitioner Unavailable Natalio SHIELDS, Dr. Sofia Nurse Practitioner Swapna ERICKSON, Dr. Valiente Nurse Practitioner Daya CAMACHO-C, Renay Nurse Practitioner Brandi SHIELDS, Dr. Suraj Georges Attending Physician Yair SHIELDS, Dr. Rangel Attending Physician Dr. Henry Evans MD Attending Physician Dr. Suraj Paz MD Referring Provider Que SHIELDS, Dr. Coronel Referring Provider Dr. Henry Evans MD Referring Provider Yair SHIELDS, Dr. Rangel Referring Provider Susan Medina PA-C Attending Physician Latrell SHIELDS, Dr. Agustin Attending Physician Brandi SHIELDS, Dr. Suraj Georges Nurse Practitioner Christine SHIELDS, Dr. Cordoba Attending Physician Christine SHIELDS, Dr. Cordoba Referring Provider Daya PLUMBER GASFITTER, Renay Attending Unavailable Brown, Luna R Primary Care Unavailable Brown, Luna R Referring Unavailable Victor M Petersen Referring Unavailable Brown, Luna R Primary Care Unavailable Victor M Petersen Attending Unavailable Brown, Luna R Primary Care Unavailable Brown, Luna R Attending Unavailable Brown, Luna R Referring Unavailable Brown, Luna R Primary Care Unavailable Adalid King Attending Unavailable Brown, Luna R Primary Care Unavailable Brown, Luna R Referring Unavailable Brown, Luna R Attending Unavailable Alyssia Bah Consulting Unavailable Brown, Luna R Primary Care Unavailable Claire Mazariegos Attending Unavailable Claire Mazariegos Admitting Unavailable Claire Mazariegos Consulting Unavailable Henry Evans Consulting Unavailable Brown, Luna R Primary Care Unavailable Vamsi Sams Attending Unavailable Brown, Luna R Primary Care Unavailable Brown, Luna R Referring Unavailable Adalid King Attending Unavailable Susan Low Attending Unavailable Isauro Moran Consulting Unavailable Elmer Orozco Consulting Unavailable Ted Henderson Consulting Unavailable Adalid King Consulting Unavailable Srinivasa Boudreaux Consulting Unavailable Dev Dee Consulting Unavailable Bismark Lance Consulting Unavailable Rocco Barcenas Consulting Unavailable Daya CAMACHO, Renay Consulting Unavailable Henry Evans Attending Unavailable Suraj Paz Referring Unavailable Henry Evans Referring Unavailable Daya PLUMBER GASFITTER, Renay Attending Unavailable Brown, Luna R Primary Care Unavailable Brown, Luna R Referring Unavailable Brown, Luna R Primary Care Unavailable Brown, Luna R Attending Unavailable Brown, Luna R Referring Unavailable Brown, Luna R Primary Care Unavailable Brown, Luna R Attending Unavailable Brown, Luna R Referring Unavailable Brown, Luna R Primary Care Unavailable Claire Mazariegos Referring Unavailable Adalid King Attending Unavailable Brown, Luna R Primary Care Unavailable Adalid King Attending Unavailable Brown, Luna R Primary Care Unavailable Brown, Luna R Referring Unavailable Adalid King Attending Unavailable Brown, Luna R Primary Care Unavailable Brown, Luna R Attending Unavailable Brown, Luna R Referring Unavailable Brown, Luna R Primary Care Unavailable Claire Mazariegos Admitting Unavailable Suraj Paz Attending Unavailable Alyssia Bah Consulting Unavailable Henry Evans Consulting Unavailable Isauro Moran Consulting Unavailable Elmer Orozco Consulting Unavailable Ted Henderson Consulting Unavailable Adalid King Consulting Unavailable Srinivasa Boudreaux Consulting Unavailable Dev Dee Consulting Unavailable Bismark Lance Consulting Unavailable Rocco Barcenas Consulting Unavailable Daya PLUMBER GASFITTER, Renay Consulting Unavailable Claire Mazariegos Consulting Unavailable Brown, Luna R Primary Care Unavailable Brown, Luna R Attending Unavailable Brown, Luna R Referring Unavailable Brown, Luna R Primary Care Unavailable Isckarus, Mansour Referring Unavailable Isckarus, Mansour Attending Unavailable Brown, Luna R Primary Care Unavailable Homer Grey Attending Unavailable Brown, Luna R Consulting Unavailable Brown, Luna R Referring Unavailable Victor M Petersen Attending Unavailable Brown, Luna R Primary Care Unavailable Brown, Luna R Referring Unavailable Brown, Luna R Primary Care Unavailable Brown, Luna R Attending Unavailable Brown, Luna R Referring Unavailable Suraj Paz Attending Unavailable Suraj Paz Consulting Unavailable Brown, Luna R Primary Care Unavailable Brown, Luna R Attending Unavailable Brown, Luna R Referring Unavailable Brown, Luna R Primary Care Unavailable Brown, Luna R Attending Unavailable Brown, Luna R Referring Unavailable Allergies Allergy Classification Reported Allergen(s) Allergy Type Date of Onset Reaction(s) Facility (17 sources) meloxicam Drug Allergy 05-10-2021 unknown [facility] (17 sources) Pentazocine Drug Allergy 05-10-2021 unknown [facility] (7 sources) metaxalone Drug Allergy 11-23-2024 Nausea [facility] Comment on above: and dry mouth (1 source) meloxicam Drug Allergy 01-09-2025 [facility] Repository (1 source) metaxalone Drug Allergy 01-09-2025 [facility] (1 source) Pentazocine Drug Allergy 01-09-2025 [facility] Repository Medications Current Medications Medication Drug Class(es) Dates Sig (Normalized) Sig (Original) acyclovir 200 mg oral capsule (3 sources) Herpesvirus Nucleoside Analog DNA Polymerase Inhibitor, Herpes Simplex Virus Nucleoside Analog DNA Polymerase Inhibitor, Herpes Zoster Virus Nucleoside Analog DNA Polymerase Inhibitor Start: 12-14-2024 Start: 12-14-2024 amLODIPine 5 mg oral tablet (4 sources) Dihydropyridine Calcium Channel Ramona Start: 01-02-2025 Start: 12-12-2024 End: 01-02-2025 aspirin 81 mg oral tablet (20 sources) Platelet Aggregation Inhibitor, Nonsteroidal Anti-inflammatory Drug Start: 12-19-2024 Start: 12-19-2024 Start: 12-19-2024 Start: 07-31-2017 End: 05-08-2020 Blood-Glucose Meter (7 sources) Start: 11-24-2022 Blood-Glucose [...] 12:00am November 24, 2022 4:05pm As directed dexamethasone 4 mg oral tabl et (4 sources) Corticosteroid Start: 12-29-2024 Start: 12-14-2024 End: 12-29-2024 Start: 12-14-2024 3 ml insulin glargine 100 unt/ml pen injector (20 sources) Insulin Analog Start: 12-03-2024 Insulin Glargi ne (Lantus Solostar U-100 Insulin) 100 unit/mL (3 mL) insulin pen Active 21 U SC AT BEDTIME December 03, 2024 12:00am Complies with drug therapy Start: 11-08-2024 End: 12-03-2024 Insulin Glargine (Lantus Radha ostar U-100 Insulin) 100 unit/mL (3 mL) insulin pen Discontinued 40 U SC AT BEDTIME 15 November 08, 2024 8:13am December 03, 2024 4:42pm Start: 02-11-2023 End: 11-08-2024 Insulin Glargine (Lantus [...] 2023 2:42pm at bedtime Start: 11-11-2022 End: 12-03-2024 Start: 11-11-2022 End: 12-03-2022 Insulin Glargine (Lantus Radha ostar U-100 Insulin) 100 unit/mL (3 mL) insulin pen Discontinued 15 U SC DAILY 15 0 November 11, 2022 12:00am December 03, 2022 4:46pm at bedtime 3 ml insulin lispro 100 unt/ ml pen injector (3 sources) Insulin Analog Start: 12-15-2024 Start: 12-15-2024 Magnesium (1 source) Start: 12-03-2024 take 1 tablet by mouth at bedtime Magnesium 250 mg tablet Active 250 mg PO AT BEDTIME December 03, 2024 12:00am Complies with drug therapy metoprolol tartrate 25 mg oral tablet (4 sources) beta-Adrenergic Ramona Start: 01-02-2025 Start: 12-12-2024 End: 01-02-2025 mirtazapine 7.5 mg oral tabl et (4 sources) Start: 12-29-2024 Start: 12-12-2024 End: 12-29-2024 omeprazole 20 mg delayed rel ease oral capsule (20 sources) Proton Pump Inhibitor Start: 12-29-2024 Start: 12-14-2024 End: 12-29-2024 Start: 12-14-2024 Start: 07-31-2017 End: 12-14-2024 Start: 07-31-2017 End: 12-14-2024 ondansetron 4 mg disintegrat ing oral tablet (20 sources) Serotonin-3 Receptor Antagonist Start: 11-29-2024 Start: 11-29-2024 take 1 tablet by fernandez th every eight hours as needed for nausea and vomiting Start: 11-29-2024 take 1 tablet by fernandez th every eight hours as needed for nausea and vomiting Start: 03-22-2024 End: 11-15-2024 Start: 02-24-2019 End: 12-19-2020 (20 sources) Start: 12-03-2024 Start: 09-29-2024 Start: 09-29-2024 Start: 03-29-2024 End: 09-29-2024 Start: 03-22-2024 End: 09-29-2024 Start: 11-17-2023 End: 03-22-2024 Start: 11-12-2023 End: 11-17-2023 Start: 05-13-2023 End: 03-29-2024 Start: 02-11-2023 End: 11-12-2023 Start: 02-11-2023 Start: 02-11-2023 Start: 11-24-2022 End: 02-11-2023 Start: 11-24-2022 End: 02-11-2023 Start: 11-24-2022 End: 02-11-2023 Start: 11-20-2022 End: 11-24-2022 Start: 11-14-2022 End: 05-13-2023 Start: 01-17-2022 End: 01-17-2022 Start: 01-17-2022 End: 01-17-2022 Start: 12-20-2020 End: 11-24-2022 Start: 07-31-2017 End: 03-10-2018 Start: 07-31-2017 End: 11-20-2022 Start: 07-31-2017 End: 11-24-2022 Completed/Discontinued Medications Medication Drug Class(es) Dates Sig (Normalized) Sig (Original) atorvastatin 20 mg oral tablet (20 sources) HMG-CoA Reductase Inhibitor Start: 07-31-2017 End: 09-29-2024 baclofen 10 mg oral tablet (16 sources) gamma-Aminobutyric Acid-ergic Agonist Start: 08-07-2021 End: 09-12-2021 Start: 08-07-2021 End: 09-12-2021 take 1 tablet by mouth at bedtime Baclofen 10 mg tablet Discontinued 10 mg PO AT BEDTIME 20 0 August 07, 2021 12:00am September 12, 2021 9:14am Blood-Glucose Meter (True Me trix Glucose Meter) misc (14 sources) Start: 07-31-2017 End: 03-10-2018 Blood-Glucose Meter (True Metrix Glucose Meter) misc Discontinued 0 .ROUTE .MEDSUPPLY 1 July 31, 2017 1:59pm March 10, 2018 9:49am As directed Start: 07-31-2017 End: 03-10-2018 Blood-Glucose Meter (True Me trix Glucose Meter) misc Discontinued 0 .ROUTE .MEDSUPPLY 1 July 31, 2017 12:00am March 10, 2018 9:49am As directed Start: 07-31-2017 End: 03-10-2018 Blood-Glucose Meter (True Me trix Glucose Meter) misc Discontinued 0 .ROUTE .MEDSUPPLY 1 July 30, 2017 11:00pm March 10, 2018 8:49am As directed Start: 07-31-2017 End: 03-10-2018 Blood-Glucose Meter (True Me trix Glucose Meter) misc Discontinued 0 .ROUTE .MEDSUPPLY 1 July 31, 2017 12:00am March 10, 2018 9:49am As directed cyclobenzaprine hydrochlorid e 10 mg oral tablet (8 sources) Muscle Relaxant Start: 11-09-2024 End: 11-15-2024 0.85 ml exenatide 2.35 mg/ml auto-injector (17 sources) GLP-1 Receptor Agonist Start: 04-28-2019 End: 11-02-2019 Start: 04-28-2019 End: 11-02-2019 Exenatide Microspheres (Byrebecca reramona Bcise) 2 mg/0.85 mL auto-injector Discontinued 2 mg SC Q7D 3.4 4 April 28, 2019 1:00am November 02, 2019 9:14am famciclovir 500 mg oral tablet (17 sources) Herpes Simplex Virus Nucleoside Analog DNA Polymerase Inhibitor Start: 05-08-2020 End: 09-12-2021 flu vacc (65yr up)-MF59C(PF) 45 mcg(15 mcgx3)/0.5 mL IM syringe (1 source) Start: 11-18-2017 End: 11-18-2017 inject 1 mL by intramuscular injection once flu vacc (65yr up)-[id number](PF) 45 mcg(15 mcgx3)/0.5 mL IM syringe Discontinued 0.5 ML IM ONCE 1 November 18, 2017 8:29am November 18, 2017 [...] End: 01-17-2022 handicap placard Discontinued 0 .Route .MEDSUPPLY January 17, 2022 12:55pm January 17, 2022 12:58pm Apical variant hypertrophic cardiomyopathy Other hypertrophic cardiomyopathy 5 year RX, from 01/30/2022-01/31/20 Start: 01-17-2022 End: 01-17-2022 handicap placard Discontinue d 0 .Route .MEDSUPPLY January 17, 2022 12:55pm January 17, 2022 12:58pm 5 year RX, from 01/30/2022-01/30/2027 Start: 01-17-2022 End: 01-17-2022 handicap placard Discontinue d 0 .Route .MEDSUPPLY January 17, 2022 11:55am January 17, 2022 11:58am 5 year RX, from 01/30/2022-01/30/2027 Start: 01-17-2022 End: 01-17-2022 handicap placard Discontinue d 0 .Route .[facility] January 17, 2022 1:00am January 17, 2022 12:56pm 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 Start: 01-17-2022 End: 01-17-2022 handicap placard Discontinue d 0 .Route .[facility] January 17, 2022 1:00am January 17, 2022 12:56pm atypical variant hypertrophic cardiomyopathy Start: 01-17-2022 End: 01-17-2022 handicap placard Discontinue d 0 .Route .[facility] January 17, 2022 12:00am January 17, 2022 11:56am atypical variant hypertrophic cardiomyopathy hydroCHLOROthiazide 12.5 mg / valsartan 160 mg oral tablet (20 sources) Thiazide Diuretic, Angiotensin 2 Receptor Ramona Start: 09-30-2018 End: 12-12-2024 Start: 09-30-2018 End: 09-29-2024 Valsartan-Hydrochlorothiazid e 160-12.5 mg tablet Discontinued 1 {tbl} PO DAILY 90 November 27, 2023 9:31am March 22, 2024 10:43am Start: 09-30-2018 End: 11-11-2022 take 1 tablet by mouth once daily Valsartan-Hydrochlorothiazide Discontinu ed 1 TABLET PO DAILY 90 September 06, 2019 11:10am March 07, 2020 10:27am levothyroxine sodium 0.1 mg oral tablet (20 sources) l-Thyroxine Start: 04-03-2022 End: 09-29-2024 Start: 03-13-2020 End: 04-03-2022 Start: 07-31-2017 End: 03-13-2020 lisinopril 40 mg oral tablet (20 sources) Angiotensin Converting Enzyme Inhibitor Start: 09-30-2018 End: 09-30-2018 Start: 06-23-2018 End: 09-30-2018 Start: 06-23-2018 End: 09-30-2018 take 10 mg by mouth once daily Lisinopril Discontinued 10 MG PO daily June 23, 2018 9:08am September 30, 2018 9:44am Start: 07-31-2017 End: 06-23-2018 metaxalone 800 mg oral table t (8 sources) Start: 11-15-2024 End: 11-23-2024 24 hr metFORMIN hydrochlorid e 500 mg extended release oral tablet (20 sources) Biguanide Start: 07-31-2017 End: 12-12-2024 repaglinide 0.5 mg oral tabl et (20 sources) Glinide Start: 07-31-2017 End: 11-11-2022 SITagliptin 100 mg oral tabl et (20 sources) Dipeptidyl Peptidase 4 Inhibitor Start: 11-02-2019 End: 12-12-2024 Start: 01-12-2019 End: 04-28-2019 Start: 01-12-2019 End: 01-12-2019 Sitagliptin Phosphate 100 mg tablet Discontinued 50 mg PO DAILY 90 January 12, 2019 10:06am January 12, 2019 10:24am Start: 01-12-2019 End: 01-12-2019 take 50 mg by mouth once daily Sitagliptin Phosphate Discontinued 50 MG PO DAILY January 12, 2019 10:06am January 12, 2019 10:24am Start: 11-18-2017 End: 01-12-2019 Start: 08-28-2017 End: 11-18-2017 Start: 08-14-2017 End: 08-28-2017 Start: 07-31-2017 End: 08-14-2017 traMADol hydrochloride 50 mg oral tablet (17 sources) Opioid Agonist Start: 05-17-2020 End: 12-19-2020 Problems Active Problems Problem Classification Problem Date Documented Date Episodic/Chronic Acute and unspecified renal failure (20 sources) Acute renal failure syndrome; Translations: [Acute kidney failure, unspecified] Onset: 12-30-2024 12-03-2024 Episodic Allergic reactions (17 sources) Acute urticaria; Translations: [Other urticaria] 07-31-2017 Episodic Chronic kidney disease (20 sources) Chronic kidney disease stage 1; Translations: [Chronic kidney disease, stage 1] 06-21-2024 Chronic Coronary atherosclerosis and other heart disease (18 sources) Coronary atherosclerosis; Translations: [Atherosclerotic heart disease of [place] coronary artery without angina pectoris] 03-01-2013 Chronic Deficiency and other anemia (13 sources) Anemia; Translations: [Anemia, unspecified] 12-14-2024 Episodic Deficiency and other anemia (2 sources) Anemia, unspecified; Translations: [Anemia, unspecified] Onset: 01-09-2025 Episodic Diabetes mellitus without complication (20 sources) Type 2 diabetes mellitus; Translations: [Type 2 diabetes mellitus without complications] Onset: 12-29-2024 Chronic Disorders of lipid metabolism (20 sources) Hyperlipidemia; Translations: [Hyperlipidemia, unspecified] Onset: 04-15-2024 Chronic Esophageal disorders (17 sources) Gastroesophageal reflux disease; Translations: [Gastro-esophageal reflux disease without esophagitis] 07-31-2017 Chronic Essential hypertension (20 sources) Hypertensive disorder; Translations: [Essential (primary) hypertension] Onset: 04-15-2024 Chronic Fluid and electrolyte disorders (4 sources) Acute hyponatremia; Translations: [Hypo-osmolality and hyponatremia] 12-03-2024 Episodic Hyperplasia of prostate (17 sources) Nocturia due to benign prostatic hypertrophy; Translations: [Benign prostatic hyperplasia with lower urinary tract symptoms] Chronic Immunizations and screening for infectious disease (2 sources) Patient encounter status; Translations: [Exposure to 2019 novel coronavirus] Onset: 12-29-2024 Episodic Multiple myeloma (20 sources) Multiple myeloma; Translations: [Multiple myeloma not having achieved remission] Onset: 01-09-2025 Chronic Nausea and vomiting (5 sources) Nausea and vomiting; Translations: [Nausea with vomiting, unspecified] Onset: 10-14-2024 12-03-2024 Episodic Noninfectious gastroenteritis (17 sources) Gastroenteritis; Translations: [Noninfective gastroenteritis and colitis, unspecified] 07-31-2017 Episodic Nonspecific chest pain (2 sources) Chest pain, unspecified; Translations: [Chest pain, unspecified] Onset: 11-15-2024 Episodic Other connective tissue disease (6 sources) Triggering of digit; Translations: [Trigger finger, unspecified finger] 06-21-2024 Episodic Other connective tissue disease (7 sources) Trigger finger of right hand; Translations: [Trigger finger, unspecified finger] 06-21-2024 Episodic Other fractures (15 sources) Compression fracture of lumbar spine; Translations: [...] Onset: 12-01-2024 Episodic Other lower respiratory disease (20 sources) Dyspnea on exertion; Translations: [Other forms of dyspnea] 09-29-2024 Episodic Other non-traumatic joint disorders (5 sources) Shoulder pain; Translations: [Pain in right shoulder] 12-19-2020 Episodic Other non-traumatic joint disorders (14 sources) Pain in right shoulder; Translations: [Pain in joint, shoulder region] Episodic Other nutritional; endocrine; and metabolic disorders (8 sources) Hypercalcemia; Translations: [Hypercalcemia] 12-03-2024 Chronic Other nutritional; endocrine; and metabolic disorders (2 sources) Hypercalcemia; Translations: [Hypercalcemia] Onset: 12-30-2024 Chronic Other nutritional; endocrine; and metabolic disorders (20 sources) H/O: hypothyroidism; Translations: [Personal history of other endocrine, nutritional and metabolic disease] 03-01-2013 Episodic Other nutritional; endocrine; and metabolic disorders (1 source) Personal history of other endocrine, nutritional and metabolic disease; Translations: [Personal history of other endocrine, metabolic, and immunity disorders] 07-01-2022 Episodic Other nutritional; endocrine; and metabolic disorders (1 source) H/O: diabetes mellitus; Translations: [Personal history of other endocrine, nutritional and metabolic disease] 12-03-2024 Episodic Melissa-; endo-; and myocarditis; cardiomyopathy (except that caused by tuberculosis or sexually transmitted disease) (17 sources) Hypertrophic cardiomyopathy; Translations: [Other hypertrophic cardiomyopathy] 03-01-2013 Chronic Spondylosis; intervertebral disc disorders; other back problems (20 sources) Acute low back pain; Translations: [Radiculopathy, site unspecified] Onset: 11-22-2024 Episodic Sprains and strains (12 sources) Low back strain; Translations: [Strain of muscle, fascia and tendon of lower back, initial encounter] 11-15-2024 Episodic Thyroid disorders (20 sources) Hypothyroidism; Translations: [Hypothyroidism, unspecified] Onset: 04-15-2024 Chronic Past or Other Problems Problem Classification Problem Date Documented Da te Episodic/Chronic Abdominal pain (20 sources) Epigastric pain; Translations: [Epigastric pain] Onset: 09-29-2024 Episodic Results Test Name Value Interpretation Reference Range Facility CBC W/Diff, Automatedon --2024 Absolute Lymph 0.84 X10 3/uL Normal 0.83-4.51 [facility] Comment on above: Performed By: #### L 100.0100 ####[facility] [id number] [place], [address] Absolute Neut 0.8 X10 3/uL Low 2.0-7.7 [facility] Comment on above: Performed By: #### L 100.0100 ####[facility] [id number] [place], [address] Basophils/100 WBC (Bld) 0.5 % Normal 0-1 [facility] Comment on above: Performed By: #### L 100.0100 ####[facility] [id number] [place], [address] Eosinophils/100 WBC (Bld) 2.4 % Normal 0-5 [facility] Comment on above: Performed By: #### L 100.0100 ####[facility] [id number] [place], [address] Erythrocyte distribution width (RBC) [Ratio] 13.9 % Normal 11.6-14.6 [facility] [facility] Comment on above: Performed By: #### L 100.0100 ####[facility] [address] [place], [address] Hematocrit (Bld) [Volume fraction] 25.4 % Low 40-54 [facility] Comment on above: Performed By: #### L 100.0100 ####[facility] [address] [place], [address] Hemoglobin (Bld) [Mass/Vol] 8.7 g/dL Low 13.0-16.5 [facility] Comment on above: Performed By: #### L 100.0100 ####[facility] [address] [place], [address] IG% 0.900 Normal 0.0-0.9 [facility] Comment on above: Result Comment: IG% - Immature Granulocytes (promyelocytes, myelocytes andmetamyelocytes) > 1% indicates that a LEFT SHIFT is Present. Performed By: #### L 100.0100 ####[facility] [address] [place], [address] Lymphocytes/100 WBC (Bld) 39.6 % Normal 19-41 [facility] Comment on above: Performed By: #### L 100.0100 ####[facility] [address] [place], [address] MCH (RBC) [Entitic mass] 33.6 pg High 27.0-32.0 [facility] Comment on above: Performed By: #### L 100.0100 ####[facility] [address] [place], [address] MCHC (RBC) [Mass/Vol] 34.3 g/dL Normal 32-36 [facility] Comment on above: Performed By: #### L 100.0100 ####[facility] [address] [place], [address] MCV (RBC) [Entitic vol] 98.1 fL High 80-94 [facility] Comment on above: Performed By: #### L 100.0100 ####[facility] [address] [place], [address] Monocytes/100 WBC (Bld) 17.9 % High 0-10 [facility] Comment on above: Performed By: #### L 100.0100 ####[facility] [address] [place], [address] Neutrophils/100 WBC (Bld) 38.7 % Low 47-70 [facility] Comment on above: Performed By: #### L 100.0100 ####[facility] [address] [place], [address] Nucleated RBC (Bld) [#/Vol] 0 10*3/uL Normal 0-5 [facility] Comment on above: Performed By: #### L 100.0100 ####[facility] [address] [place], [address] Platelet mean volume (Bld) [Entitic vol] 10.2 fL Normal 6.2-12.0 [facility] Comment on above: Performed By: #### L 100.0100 ####[facility] [address] [place], [address] Platelets (Bld) [#/Vol] 144 10*3/uL Low 150-450 [facility] Comment on above: Performed By: #### L 100.0100 ####[facility] [address] [place], [address] RBC (Bld) [#/Vol] 2.59 10*6/uL Low 4.6-6.2 [facility] Comment on above: Performed By: #### L 100.0100 ####[facility] [address] [place], [address] RDW SD 49.7 fl High 35.1-43.9 [facility] Comment on above: Performed By: #### L 100.0100 ####[facility] [address] [place], [address] WBC (Bld) [#/Vol] 2.1 10*3/uL Low 4.4-11.0 [facility] Comment on above: Performed By: #### L 100.0100 ####[facility] [address] [place], [address] Oncology Visit Reporton 11-1 Oncology Visit Report Normal [facility] Absolute lymphocyte countOrd ered By: Adalid King on 01-02-2025 Lymphocytes Auto (Unsp spec) [#/Vol] 0.64 10*3/uL Low 0.83-4.51 [facility] Automated lymphocyte count a s percentage of total leukocytesOrdered By: Adalid King on 01-02-2025 Lymphocytes/100 WBC Auto (Unsp spec) 31.7 % 19-41 [facility] Basophil percentageOrdered B y: Adalid King on 01-02-2025 Basophils/100 WBC (Bld) 0.5 % 0-1 [facility] CBC W/Diff, Automatedon PLT EST SLT DEC Normal ADEQ [facility] Comment on above: Performed By: #### L 100.0100 ####[facility] [address] [place], [address] Eosinophil percentageOrdered By: Adalid King on 01-02-2025 Eosinophils/100 WBC (Bld) 1.5 % 0-5 [facility] Erythrocyte distribution wid th ratioOrdered By: [facility] Christine on 01-02-2025 Erythrocyte distribution width (RBC) [Ratio] 13.8 % 11.6-14.6 [facility] Erythrocyte distribution wid th standard deviationOrdered By: [facility] Christine on 01-02-2025 Erythrocyte distribution width (RBC) [Ratio] 48.7 fl High 35.1-43.9 [facility] Hematocrit Auto (Bld) [Volum e fraction]Ordered By: Adalid King on 01-02-2025 Hematocrit (Bld) [Volume fraction] 23.5 % Low 40-54 [facility] Hemoglobin measurementOrdere d By: [facility] on 01-02-2025 Hemoglobin (Bld) [Mass/Vol] 8.1 g/dL Low 13.0-16.5 [facility] Immature granulocytes/100 WB C Auto (Bld)Ordered By: Adalid King on 01-02-2025 Immature granulocytes/100 WBC (Bld) 0.500 % 0.0-0.9 [facility] MCV (mean corpuscular volume ) determinationOrdered By: Adalid King on 01-02-2025 MCV (RBC) [Entitic vol] 99.2 fL High 80-94 [facility] Mean corpuscular hemoglobin (MCH) determinationOrdered By: Adalid King on 01-02-2025 MCH (RBC) [Entitic mass] 34.2 pg High 27.0-32.0 [facility] Monocyte percentageOrdered B y: Adalid King on 01-02-2025 Monocytes/100 WBC (Bld) 11.9 % High 0-10 [facility] Neutrophil percentageOrdered By: Adalid King on 01-02-2025 Neutrophils/100 WBC (Bld) 53.9 % 47-70 [facility] Oncology Visit Reporton Oncology Visit Report Normal [facility] Platelet countOrdered By: Marcos King on 01-02-2025 Platelets (Bld) [#/Vol] 94 10*3/uL Low 150-450 [facility] Platelet estimateOrdered By: Adalid King on 01-02-2025 Platelets LM Ql (Bld) SLT DEC ADEQ [facility] RBC Auto (Bld) [#/Vol]Ordere d By: Adalid King on 01-02-2025 RBC (Bld) [#/Vol] 2.37 10*6/uL Low 4.6-6.2 [facility] White blood cell (WBC) count Ordered By: Adalid King on 01-02-2025 WBC (Bld) [#/Vol] 2.0 10*3/uL Low 4.4-11.0 [facility] Internal Medicine Office Vis iton 12-29-2024 Internal Medicine Office Visit Normal [facility] No Panel InformationOrdered By: Luna Ashton on 12-29-2024 7.0 % High 4.2-6.3 [facility] Absolute lymphocyte countOrd ered By: Adalid King on 12-26-2024 Lymphocytes Auto (Unsp spec) [#/Vol] 0.43 10*3/uL Low 0.83-4.51 [facility] Automated lymphocyte count a s percentage of total leukocytesOrdered By: Adalid King on 12-26-2024 Lymphocytes/100 WBC Auto (Unsp spec) 28.1 % 19-41 [facility] Basophil percentageOrdered B y: Adalid King on 12-26-2024 Basophils/100 WBC (Bld) 0.0 % 0-1 [facility] CBC W/Diff, Automatedon 12-01 PATH REV Reviewed Normal [facility] Comment on above: Result Comment: PANC YTOPENIA INCLUDING ABSOLUTE LYMPHOPENIA AND MILDLYLEFT-SHIFTED NEUTROPENIA.MACROCYTIC NORMOCHROMIC ANEMIA WITH RED CELL ROULEAUX.THROMBOCYTOPENIA, ADEQUATE FOR HEMOSTASIS.Sandra Forbes MD 12/26/2024 AMENDED REPORT 12/26/24 1629 PATH REV previously reported as: June grace Performed By: #### L 100.0100 ####[facility] [address] [place], [address] Eosinophil percentageOrdered By: Adalid King on 12-26-2024 Eosinophils/100 WBC (Bld) 2.0 % 0-5 [facility] Erythrocyte distribution wid th ratioOrdered By: [facility] on 12-26-2024 Erythrocyte distribution width (RBC) [Ratio] 13.3 % 11.6-14.6 [facility] Erythrocyte distribution wid th standard deviationOrdered By: Adalid King on 12-26-2024 Erythrocyte distribution width (RBC) [Ratio] 49.9 fl High 35.1-43.9 [facility] Hematocrit Auto (Bld) [Volum e fraction]Ordered By: Adalid King on 12-26-2024 Hematocrit (Bld) [Volume fraction] 24.6 % Low 40-54 [facility] Hemoglobin measurementOrdere d By: Adalid King on 12-26-2024 Hemoglobin (Bld) [Mass/Vol] 8.5 g/dL Low 13.0-16.5 [facility] Immature granulocytes/100 WB C Auto (Bld)Ordered By: Adalid King on 12-26-2024 Immature granulocytes/100 WBC (Bld) 0.700 % 0.0-0.9 [facility] MCV (mean corpuscular volume ) determinationOrdered By: Adalid Millsus on 12-26-2024 MCV (RBC) [Entitic vol] 102.1 fL High 80-94 [facility] Mean corpuscular hemoglobin (MCH) determinationOrdered By: Adalid Christine on 12-26-2024 MCH (RBC) [Entitic mass] 35.3 pg High 27.0-32.0 [facility] Monocyte percentageOrdered B y: Adalid Christine on 12-26-2024 Monocytes/100 WBC (Bld) 28.1 % High 0-10 [facility] Neutrophil percentageOrdered By: [facility] on 12-26-2024 Neutrophils/100 WBC (Bld) 41.1 % Low 47-70 [facility] Oncology Visit Reporton 12-01 Oncology Visit Report Normal [facility] Platelet countOrdered By: Marcos meenakshi Christine on 12-26-2024 Platelets (Bld) [#/Vol] 117 10*3/uL Low 150-450 [facility] RBC Auto (Bld) [#/Vol]Ordere d By: Adalid Christine on 12-26-2024 RBC (Bld) [#/Vol] 2.41 10*6/uL Low 4.6-6.2 [facility] Review by pathologistOrdered By: Adalid Christine on 12-26-2024 Pathologist review Don (Unsp spec) [Interp] Reviewed [facility] White blood cell (WBC) count Ordered By: Adalid Christine on 12-26-2024 WBC (Bld) [#/Vol] 1.5 10*3/uL Critically low 4.4-11.0 [facility] Nkwm-2-Ysyyvlhizzaey, Son B-2 MICROGLOBUL 10.1 mg/L High 0.6-2.4 [facility] Comment on above: Result Comment: DDN Immulite 2000 Immunochemiluminometric assay (ICMA)Values obtained with different assay methods or kits cannotbe used interchangeably. Results cannot be interpreted asabsolute evidence of the presence or absence of malignantdisease.Performed at: [address] [id number] Director: Colt Rich MD, Phone: [phone] Performed By: #### L 504.2610, L3100.3425, L500.4050, L3130.0010, L3000.0800, L100.0100, L3890.5000, [id number] ####[facility] [address] [place], [place], [address]([phone]) Hepatitis B/C Profile VIIIon 12-21-2024 COMMENT Comment Normal . [facility] Comment on above: Result Comment: Not infected with HCV unless early or acute infection issuspected (which may be delayed in an immunocompromisedindividual), or other evidence exists to indicate HCVinfection. Performed By: #### L 504.2610, L3100.3425, L500.4050, L3130.0010, L3000.0800, L100.0100, L3890.5000, [id number] ####[facility] [address] [place], [place], [phone] HEP B CORE,TOT Negative Normal Negative [facility] Comment on above: Performed By: #### L 504.2610, L3100.3425, L500.4050, L3130.0010, L3000.0800, L100.0100, L3890.5000, [id number] ####[facility] [address] [place], [place], [address] Hep B Susan AB Non-Reactive Normal . [facility] Comment on above: Result Comment: Non Reactive: Not immune to HBV infection. Anti-HBs undetectable or less than 10 mIU/mL. Reactive: Evidence of HBV immunity. Anti-HBs levels greater than 10 mIU/mL. Performed By: #### L 504.2610, L3100.3425, L500.4050, L3130.0010, L3000.0800, L100.0100, L3890.5000, [id number] ####[facility] [address] [place], [place], [address] HEP B SURF AG Negative Normal Negative [facility] Comment on above: Performed By: #### L 504.2610, L3100.3425, L500.4050, L3130.0010, L3000.0800, L100.0100, L3890.5000, [id number] ####[facility] [address] [place], [place], [address] HEP C Antibody Non-Reactive Normal Non Reactive [facility] Comment on above: Performed By: #### L 504.2610, L3100.3425, L500.4050, L3130.0010, L3000.0800, L100.0100, L3890.5000, X12627-6 ####[facility] [address] [place], [address] HEPATITIS INTER Comment Normal . [facility] Comment on above: Result Comment: HBV Serology Interpretation Chart ----- Interpretation HBsAg anti-HBs anti-HBc anti-HBc IgM ----- [place] - Analyte present: + Analyte absent: - Test not indicated: TNI ----- Susceptible (never infected and no evidence - - - TNI of vaccination) ----- Immune due to natural resolved infection - + + TNI ----- Immune due to vaccination - + - TNI ----- Acute Infection + - + + ----- Chronic infection + - + - ----- Interpretation unclear* - - + +/- ----- *Multiple possibilities: resolved infection (most common); false- positive anti-HBc (susceptible); low-level chronic infection; resolving acute infection. Performed By: #### L 504.2610, L3100.3425, L500.4050, L3130.0010, L3000.0800, L100.0100, L3890.5000, [id number] ####[facility] [address] [place], [address] OMERO + Protein Elect, Serumon 12-21-2024 Albumin [Mass/Vol] 3.1 g/dL Normal 2.9-4.4 [facility] Comment on above: Order Comment: N Performed By: #### L 504.2610, L3100.3425, L500.4050, L3130.0010, L3000.0800, L100.0100, L3890.5000, [id number] ####[facility] [address] [place], [address] Albumin/Globulin [Mass ratio] 0.7 {ratio} Normal 0.7-1.7 [facility] Comment on above: Order Comment: N Performed By: #### L 504.2610, L3100.3425, L500.4050, L3130.0010, L3000.0800, L100.0100, L3890.5000, [id number] ####[facility] [address] [place], [address] HPZUC-3-JPND 0.3 g/dL Normal 0.0-0.4 [facility] Comment on above: Order Comment: N Performed By: #### L 504.2610, L3100.3425, L500.4050, L3130.0010, L3000.0800, L100.0100, L3890.5000, J12151-4 ####[facility] [address] [place], [address] ZDKKJ-1-VJYJ 1.0 g/dL Normal 0.4-1.0 [facility] Comment on above: Order Comment: N Performed By: #### L 504.2610, L3100.3425, L500.4050, L3130.0010, L3000.0800, L100.0100, L3890.5000, [id number] ####[facility] [address] [place], [address] BETA GLOBULIN 3.4 g/dL High 0.7-1.3 [facility] Comment on above: Order Comment: N Performed By: #### L 504.2610, L3100.3425, L500.4050, L3130.0010, L3000.0800, L100.0100, L3890.5000, V11130-4 ####[facility] [address] [place], [place], [phone]) GAMMA GLOBULIN 0.2 g/dL Low 0.4-1.8 [facility] Comment on above: Order Comment: N Performed By: #### L 504.2610, L3100.3425, L500.4050, L3130.0010, L3000.0800, L100.0100, L3890.5000, [id number] ####[facility] [address] [place], [place], [phone] Globulin (S) [Mass/Vol] 4.9 g/dL Abnormal 2.2-3.9 [facility] Comment on above: Order Comment: N Performed By: #### L 504.2610, L3100.3425, L500.4050, L3130.0010, L3000.0800, L100.0100, L3890.5000, C64942-1 ####[facility] [address] [place], [place], [address] OMERO RESULT,S Comment Abnormal . [facility] Comment on above: Order Comment: N Result Comment: Immu nofixation shows IgA monoclonal protein with lambdalight chain specificity and monoclonal free lambda lightchains. Performed By: #### L 504.2610, L3100.3425, L500.4050, L3130.0010, L3000.0800, L100.0100, L3890.5000, W34908-2 ####[facility] [address] [place], [place], [phone]) IMMUNOGLOB A QN 2947 mg/dL High 61-437 [facility] Comment on above: Order Comment: N Result Comment: Resu lts confirmed ondilution. Performed By: #### L 504.2610, L3100.3425, L500.4050, L3130.0010, L3000.0800, L100.0100, L3890.5000, S73331-7 ####[facility] [address] [place], [address] IMMUNOGLOB G QN 377 mg/dL Low 603-1613 [facility] Comment on above: Order Comment: N Performed By: #### L 504.2610, L3100.3425, L500.4050, L3130.0010, L3000.0800, L100.0100, L3890.5000, [id number] ####[facility] [address] [place], [place], [id number] IMMUNOGLOB M QN 12 mg/dL Low 15-143 [facility] Comment on above: Order Comment: N Result Comment: Resu lt confirmed on concentration. Performed By: #### L 504.2610, L3100.3425, L500.4050, L3130.0010, L3000.0800, L100.0100, L3890.5000, H55041-6 ####[facility] [address] [place], [address] M-David Comment: Normal Not Observed [facility] Comment on above: Order Comment: N Result Comment: [place] clonal IgA lambda = 2.4 g/dlMonoclonal free lambda light chains = 0.1 g/dl Performed By: #### L 504.2610, L3100.3425, L500.4050, L3130.0010, L3000.0800, L100.0100, L3890.5000, R70502-6 ####[facility] [address] [place], [address] NOTE: Comment Normal . [facility] Comment on above: Order Comment: N Result Comment: Prot ein electrophoresis scan will follow via computer,mail, or cutter hand delivery. Performed By: #### L 504.2610, L3100.3425, L500.4050, L3130.0010, L3000.0800, L100.0100, L3890.5000, D36366-1 ####[facility] [address] [place], [place], [phone] Protein [Mass/Vol] 8.0 g/dL Normal 6.0-8.5 [facility] Comment on above: Order Comment: N Performed By: #### L 504.2610, L3100.3425, L500.4050, L3130.0010, L3000.0800, L100.0100, L3890.5000, [id number] ####[facility] [address] [place], [place], [id number] [place] Lambda Light Chainson 12-21-2024 FR KAPPA LT CHN 11.9 mg/L Normal 3.3-19.4 [facility] Comment on above: Performed By: #### L 504.2610, L3100.3425, L500.4050, L3130.0010, L3000.0800, L100.0100, L3890.5000, [id number] ####[facility] [address] [place], [place], [phone] FR LAMBDA LT CH 807.3 mg/L Abnormal 5.7-26.3 [facility] Comment on above: Performed By: #### L 504.2610, L3100.3425, L500.4050, L3130.0010, L3000.0800, L100.0100, L3890.5000, P79985-3 ####[facility] [address] [place], [address] KAPPA/LAMBDA % 0.01 Abnormal 0.26-1.65 [facility] Comment on above: Result Comment: Perf ormed at: - [facility] [address] [id number] Director: Fernandez Ceballos PhD, Phone: [phone] Performed By: #### L 504.2610, L3100.3425, L500.4050, L3130.0010, L3000.0800, L100.0100, L3890.5000, [id number] ####[facility] [address] [place], [place], [address] Albumin Elph [Mass/Vol]Order ed By: Adalid King on 12-19-2024 Albumin [Mass/Vol] 3.1 g/dL 2.9-4.4 [facility] Anion gap in Serum or Plasma Ordered By: Adalid King on 12-19-2024 Anion gap [Moles/Vol] 20 mmol/L High 5-15 [facility] [id number] 12-19-2024 DIRECT ANNALISA NEG w/POLYSPECIFIC Normal NEGATIVE [facility] Comment on above: Performed By: #### L 504.2610, L3100.3425, L500.4050, L3130.0010, L3000.0800, L100.0100, L3890.5000, X47738-1 ####[facility] [address] [place], [place], [address] BRCon 12-19-2024 RC Normal [facility] Comment on above: Result Comment: [id number] ON RC TRANSFUSED 12/19/24 1416 Performed By: #### B , BTS ####[facility] [address] [place], [place], [address] BUN/creatinine ratioOrdered By: Adalid King on 12-19-2024 Urea nitrogen/Creatinine [Mass ratio] 16.1 mg/mg 12-19 [facility] Bilirubin, totalOrdered By: Adalid King on 12-19-2024 Bilirubin [Mass/Vol] 0.47 mg/dL 0.00-1.30 [facility] CBC W/Diff, Automatedon 12-01 Absolute Lymph 0.46 X10 3/uL Low 0.83-4.51 [facility] Comment on above: Performed By: #### L 504.2610, L3100.3425, L500.4050, L3130.0010, L3000.0800, L100.0100, L3890.5000, S95144-9 ####[facility] [address] [place], [address] Absolute Neut 4.9 X10 3/uL Normal 2.0-7.7 [facility] Comment on above: Performed By: #### L 504.2610, L3100.3425, L500.4050, L3130.0010, L3000.0800, L100.0100, L3890.5000, [id number] ####[facility] [address] [place], [address] Basophils/100 WBC (Bld) 0.0 % Normal 0-1 [facility] Comment on above: Performed By: #### L 504.2610, L3100.3425, L500.4050, L3130.0010, L3000.0800, L100.0100, L3890.5000, [id number] ####[facility] [address] [place], [address] Eosinophils/100 WBC (Bld) 0.0 % Normal 0-5 [facility] Comment on above: Performed By: #### L 504.2610, L3100.3425, L500.4050, L3130.0010, L3000.0800, L100.0100, L3890.5000, [id number] ####[facility] [address] [place], [address] Erythrocyte distribution width (RBC) [Ratio] 13.4 % Normal 11.6-14.6 [facility] Comment on above: Performed By: #### L 504.2610, L3100.3425, L500.4050, L3130.0010, L3000.0800, L100.0100, L3890.5000, [id number] ####[facility] [address] [place], [address] Hematocrit (Bld) [Volume fraction] 20.7 % Low 40-54 [facility] Comment on above: Performed By: #### L 504.2610, L3100.3425, L500.4050, L3130.0010, L3000.0800, L100.0100, L3890.5000, X66892-7 ####[facility] [address] [place], [address] Hemoglobin (Bld) [Mass/Vol] 7.1 g/dL Low 13.0-16.5 [facility] Comment on above: Performed By: #### L 504.2610, L3100.3425, L500.4050, L3130.0010, L3000.0800, L100.0100, L3890.5000, U48929-2 ####[facility] [address] [place], [address] IG% 0.500 Normal 0.0-0.9 [facility] Comment on above: Result Comment: IG% - Immature Granulocytes (promyelocytes, myelocytes andmetamyelocytes) > 1% indicates that a LEFT SHIFT is Present. Performed By: #### L 504.2610, L3100.3425, L500.4050, L3130.0010, L3000.0800, L100.0100, L3890.5000, [id number] ####[facility] [address] [place], [address] Lymphocytes/100 WBC (Bld) 7.3 % Low 19-41 [facility] Comment on above: Performed By: #### L 504.2610, L3100.3425, L500.4050, L3130.0010, L3000.0800, L100.0100, L3890.5000, [id number] ####[facility] [address] [place], [address] MCH (RBC) [Entitic mass] 35.1 pg High 27.0-32.0 [facility] Comment on above: Performed By: #### L 504.2610, L3100.3425, L500.4050, L3130.0010, L3000.0800, L100.0100, L3890.5000, D38317-4 ####[facility] [address] [place], [address] MCHC (RBC) [Mass/Vol] 34.3 g/dL Normal 32-36 [facility] Comment on above: Performed By: #### L 504.2610, L3100.3425, L500.4050, L3130.0010, L3000.0800, L100.0100, L3890.5000, [id number] ####[facility] [address] [place], [address] MCV (RBC) [Entitic vol] 102.5 fL High 80-94 [facility] Comment on above: Performed By: #### L 504.2610, L3100.3425, L500.4050, L3130.0010, L3000.0800, L100.0100, L3890.5000, [id number] ####[facility] [address] [place], [address] Monocytes/100 WBC (Bld) 14.1 % High 0-10 [facility] Comment on above: Performed By: #### L 504.2610, L3100.3425, L500.4050, L3130.0010, L3000.0800, L100.0100, L3890.5000, [id number] ####[facility] [address] [place], [address] Neutrophils/100 WBC (Bld) 78.1 % High 47-70 [facility] Comment on above: Performed By: #### L 504.2610, L3100.3425, L500.4050, L3130.0010, L3000.0800, L100.0100, L3890.5000, W42706-1 ####[facility] [address] [place], [address] Nucleated RBC (Bld) [#/Vol] 0 10*3/uL Normal 0-5 [facility] Comment on above: Performed By: #### L 504.2610, L3100.3425, L500.4050, L3130.0010, L3000.0800, L100.0100, L3890.5000, [id number] ####[facility] [address] [place], [address] Platelet mean volume (Bld) [Entitic vol] 9.6 fL Normal 6.2-12.0 [facility] Comment on above: Performed By: #### L 504.2610, L3100.3425, L500.4050, L3130.0010, L3000.0800, L100.0100, L3890.5000, [id number] ####[facility] [address] [place], [address] Platelets (Bld) [#/Vol] 194 10*3/uL Normal 150-450 [facility] Comment on above: Performed By: #### L 504.2610, L3100.3425, L500.4050, L3130.0010, L3000.0800, L100.0100, L3890.5000, [id number] ####[facility] [address] [place], [address] RBC (Bld) [#/Vol] 2.02 10*6/uL Low 4.6-6.2 [facility] Comment on above: Performed By: #### L 504.2610, L3100.3425, L500.4050, L3130.0010, L3000.0800, L100.0100, L3890.5000, [id number] ####[facility] [address] [place], [address] RDW SD 50.0 fl High 35.1-43.9 [facility] Comment on above: Performed By: #### L 504.2610, L3100.3425, L500.4050, L3130.0010, L3000.0800, L100.0100, L3890.5000, [id number] ####[facility] [address] [place], [address] WBC (Bld) [#/Vol] 6.3 10*3/uL Normal 4.4-11.0 [facility] Comment on above: Performed By: #### L 504.2610, L3100.3425, L500.4050, L3130.0010, L3000.0800, L100.0100, L3890.5000, [id number] ####[facility] [address] [place], [address] Absolute Neut Normal 2.0-7.7 [facility] Comment on above: Result Comment: NO S PECIMEN COLLECTED Performed By: #### L 100.0100, L500.4050 ####[facility] [address] [place], [address] HCT Normal 40-54 [facility] Comment on above: Result Comment: NO S PECIMEN COLLECTED Performed By: #### L 100.0100, L500.4050 ####[facility] [address] [place], [place], [address] HGB Normal 13.0-16.5 [facility] Comment on above: Result Comment: NO S PECIMEN COLLECTED Performed By: #### L 100.0100, L500.4050 ####[facility] [address] [place], [address] MCH Normal 27.0-32.0 [facility] Comment on above: Result Comment: NO S PECIMEN COLLECTED Performed By: #### L 100.0100, L500.4050 ####[facility] [address] [place], [address] MCHC Normal 32-36 [facility] Comment on above: Result Comment: NO S PECIMEN COLLECTED Performed By: #### L 100.0100, L500.4050 ####[facility] [address] [place], [address] MCV Normal 80-94 [facility] Comment on above: Result Comment: NO S PECIMEN COLLECTED Performed By: #### L 100.0100, L500.4050 ####[facility] [address] [place], [address] NEUT% Normal 47-70 [facility] Comment on above: Result Comment: NO S PECIMEN COLLECTED Performed By: #### L 100.0100, L500.4050 ####[facility] [address] [place], [address] PLT Normal 150-450 [facility] Comment on above: Result Comment: NO S PECIMEN COLLECTED Performed By: #### L 100.0100, L500.4050 ####[facility] [address] [place], [address] RBC Normal 4.6-6.2 [facility] Comment on above: Result Comment: NO S PECIMEN COLLECTED Performed By: #### L 100.0100, L500.4050 ####[facility] [address] [place], [address] RDW CV Normal 11.6-14.6 [facility] Comment on above: Result Comment: NO S PECIMEN COLLECTED Performed By: #### L 100.0100, L500.4050 ####[facility] [address] [place], [address] RDW SD Normal 35.1-43.9 [facility] Comment on above: Result Comment: NO S PECIMEN COLLECTED Performed By: #### L 100.0100, L500.4050 ####[facility] [address] [place], [address] WBC Normal 4.4-11.0 [facility] Comment on above: Result Comment: NO S PECIMEN COLLECTED Performed By: #### L 100.0100, L500.4050 ####[facility] [address] [place], [address] Carbon dioxide, total [Moles /volume] in Central venous bloodOrdered By: Adalid King on 12-19-2024 CO2 [Moles/Vol] 22.5 mmol/L 21.0-32.0 [facility] Chloride assayOrdered By: Marcos King on 12-19-2024 Chloride [Moles/Vol] 85 mmol/L Low 98-108 [facility] Comprehensive Metabolic Prof ilon 12-19-2024 Albumin [Mass/Vol] 3.5 g/dL Normal 3.4-4.8 [facility] Comment on above: Performed By: #### L 504.2610, L3100.3425, L500.4050, L3130.0010, L3000.0800, L100.0100, L3890.5000, [id number] ####[facility] [address] [place], [address] Albumin/Globulin [Mass ratio] 0.8 {ratio} Low 0.9-2.4 [facility] Comment on above: Performed By: #### L 504.2610, L3100.3425, L500.4050, L3130.0010, L3000.0800, L100.0100, L3890.5000, [id number] ####[facility] [address] [place], [address] ALK PHOS 84 U/L Normal 40-129 [facility] Comment on above: Performed By: #### L 504.2610, L3100.3425, L500.4050, L3130.0010, L3000.0800, L100.0100, L3890.5000, [id number] ####[facility] [address] [place], [address] ALT [Catalytic activity/Vol] 51 U/L High <=46 [facility] Comment on above: Performed By: #### L 504.2610, L3100.3425, L500.4050, L3130.0010, L3000.0800, L100.0100, L3890.5000, R23273-4 ####[facility] [address] [place], [address] AST [Catalytic activity/Vol] 24 U/L Normal <=37 [facility] Comment on above: Performed By: #### L 504.2610, L3100.3425, L500.4050, L3130.0010, L3000.0800, L100.0100, L3890.5000, [id number] ####[facility] [address] [place], [address] Bilirubin [Mass/Vol] 0.47 mg/dL Normal 0.00-1.30 [facility] Comment on above: Performed By: #### L 504.2610, L3100.3425, L500.4050, L3130.0010, L3000.0800, L100.0100, L3890.5000, [id number] ####[facility] [address] [place], [address] BUN/CRE 16.1 RATIO Normal 10-20 [facility] Comment on above: Performed By: #### L 504.2610, L3100.3425, L500.4050, L3130.0010, L3000.0800, L100.0100, L3890.5000, [id number] ####[facility] [address] [place], [address] Calcium [Mass/Vol] 8.4 mg/dL Normal 7.6-11.0 [facility] Comment on above: Performed By: #### L 504.2610, L3100.3425, L500.4050, L3130.0010, L3000.0800, L100.0100, L3890.5000, Q21615-1 ####[facility] [address] [place], [address] Chloride [Moles/Vol] 85 mmol/L Low 98-108 [facility] Comment on above: Performed By: #### L 504.2610, L3100.3425, L500.4050, L3130.0010, L3000.0800, L100.0100, L3890.5000, [id number] ####[facility] [address] [place], [address] CO2 [Moles/Vol] 22.5 mmol/L Normal 21.0-32.0 [facility] Comment on above: Performed By: #### L 504.2610, L3100.3425, L500.4050, L3130.0010, L3000.0800, L100.0100, L3890.5000, [id number] ####[facility] [address] [place], [address] Creatinine [Mass/Vol] 4.53 mg/dL High 0.70-1.20 [facility] Comment on above: Performed By: #### L 504.2610, L3100.3425, L500.4050, L3130.0010, L3000.0800, L100.0100, L3890.5000, [id number] ####[facility] [address] [place], [address] GAP 20 High 5-15 [facility] Comment on above: Performed By: #### L 504.2610, L3100.3425, L500.4050, L3130.0010, L3000.0800, L100.0100, L3890.5000, [id number] ####[facility] [address] [place], [address] GFR/1.73 sq M.predicted among non-blacks MDRD (S/P/Bld) [Vol rate/Area] 12 mL/min/{1.73_m2} Low >60 [facility] Comment on above: Result Comment: mL/m in/1.73m2 CKD-EPI Creatinine Equation (2020) Performed By: #### L 504.2610, L3100.3425, L500.4050, L3130.0010, L3000.0800, L100.0100, L3890.5000, [id number] ####[facility] [address] [place], [address] Globulin (S) [Mass/Vol] 4.7 g/dL High 2.2-4.2 [facility] Comment on above: Performed By: #### L 504.2610, L3100.3425, L500.4050, L3130.0010, L3000.0800, L100.0100, L3890.5000, S91122-4 ####[facility] [address] [place], [address] Glucose [Mass/Vol] 339 mg/dL High 70-99 [facility] Comment on above: Performed By: #### L 504.2610, L3100.3425, L500.4050, L3130.0010, L3000.0800, L100.0100, L3890.5000, R69464-3 ####[facility] [address] [place], [address] Potassium [Moles/Vol] 3.5 mmol/L Normal 3.3-5.1 [facility] Comment on above: Performed By: #### L 504.2610, L3100.3425, L500.4050, L3130.0010, L3000.0800, L100.0100, L3890.5000, [id number] ####[facility] [address] [place], [address] Sodium [Moles/Vol] 127 mmol/L Low 133-145 [facility] Comment on above: Performed By: #### L 504.2610, L3100.3425, L500.4050, L3130.0010, L3000.0800, L100.0100, L3890.5000, [id number] ####[facility] [address] [place], [address] T PROT 8.2 g/dL Normal 5.9-8.4 [facility] Comment on above: Performed By: #### L 504.2610, L3100.3425, L500.4050, L3130.0010, L3000.0800, L100.0100, L3890.5000, O32595-6 ####[facility] [address] [place], [address] Urea nitrogen [Mass/Vol] 73 mg/dL High 4-19 [facility] Comment on above: Performed By: #### L 504.2610, L3100.3425, L500.4050, L3130.0010, L3000.0800, L100.0100, L3890.5000, E66151-8 ####[facility] [address] [place], [address] ALB Normal 3.4-4.8 [facility] Comment on above: Result Comment: NO S PECIMEN COLLECTED Performed By: #### L 100.0100, L500.4050 ####[facility] [address] [place], [address] ALK PHOS Normal 40-129 [facility] Comment on above: Result Comment: NO S PECIMEN COLLECTED Performed By: #### L 100.0100, L500.4050 ####[facility] [address] [place], [address] ALT Normal <=46 [facility] Comment on above: Result Comment: NO S PECIMEN COLLECTED Performed By: #### L 100.0100, L500.4050 ####[facility] [address] [place], [address] AST Normal <=37 [facility] Comment on above: Result Comment: NO S PECIMEN COLLECTED Performed By: #### L 100.0100, L500.4050 ####[facility] [address] [place], [address] BUN Normal 4-19 [facility] Comment on above: Result Comment: NO S PECIMEN COLLECTED Performed By: #### L 100.0100, L500.4050 ####[facility] [address] [place], [address] BUN/CRE Normal 10-20 [facility] Comment on above: Result Comment: NO S PECIMEN COLLECTED Performed By: #### L 100.0100, L500.4050 ####[facility] [address] [place], [address] Calcium Normal 7.6-11.0 [facility] Comment on above: Result Comment: NO S PECIMEN COLLECTED Performed By: #### L 100.0100, L500.4050 ####[facility] [address] [place], [address] CL Normal 98-108 [facility] Comment on above: Result Comment: NO S PECIMEN COLLECTED Performed By: #### L 100.0100, L500.4050 ####[facility] [address] [place], [address] CO2 Normal 21.0-32.0 [facility] Comment on above: Result Comment: NO S PECIMEN COLLECTED Performed By: #### L 100.0100, L500.4050 ####[facility] [address] [place], [address] CREAT,SERUM Normal 0.70-1.20 [facility] Comment on above: Result Comment: NO S PECIMEN COLLECTED Performed By: #### L 100.0100, L500.4050 ####[facility] [address] [place], [address] eGFR Normal >60 [facility] Comment on above: Result Comment: NO S PECIMEN COLLECTED Performed By: #### L 100.0100, L500.4050 ####[facility] [address] [place], [address] GAP Normal 5-15 [facility] Comment on above: Result Comment: NO S PECIMEN COLLECTED Performed By: #### L 100.0100, L500.4050 ####[facility] [address] [place], [address] GLU Normal 70-99 [facility] Comment on above: Result Comment: NO S PECIMEN COLLECTED Performed By: #### L 100.0100, L500.4050 ####[facility] [address] [place], [address] Potassium Normal 3.3-5.1 [facility] Comment on above: Result Comment: NO S PECIMEN COLLECTED Performed By: #### L 100.0100, L500.4050 ####[facility] [address] [place], [address] T BILI Normal 0.00-1.30 [facility] Comment on above: Result Comment: NO S PECIMEN COLLECTED Performed By: #### L 100.0100, L500.4050 ####[facility] [address] [place], [address] T PROT Normal 5.9-8.4 [facility] Comment on above: Result Comment: NO S PECIMEN COLLECTED Performed By: #### L 100.0100, L500.4050 ####[facility] [address] [place], [place], [address] Comprehensive Metabolic Profil Normal 133-145 [facility] Comment on above: Result Comment: NO S PECIMEN COLLECTED Performed By: #### L 100.0100, L500.4050 ####[facility] [address] [place], [address] Glomerular filtration rate ( GFR) estimation/1.73 sq m using serum, plasma, or whole bOrdered By: Adalid King on 12-19-2024 GFR/1.73 sq M.predicted among non-blacks MDRD (S/P/Bld) [Vol rate/Area] 12 mL/min/{1.73_m2} Low >60 [facility] Interpretation of serum or p lasma protein pattern by immunofixation (narrative resultOrdered By: Adalid King on 12-19-2024 Protein Fractions Immunofixation Don [Interp] Comment: g/dL Not Observed [facility] LDHon 12-19-2024 LDH 170 U/L Normal 87-241 [facility] Comment on above: Order Comment: 1 Performed By: #### L 504.2610, L3100.3425, L500.4050, L3130.0010, L3000.0800, L100.0100, L3890.5000, M23695-5 ####[facility] [address] [place], [place], [address] No Panel InformationOrdered By: Adalid Knig on 12-19-2024 Addendum Document Comment . [facility] 24 U/L <38 [facility] Comment . [facility] Oncology Visit Reporton 12-01 Oncology Visit Report Normal [facility] Potassium measurement (mass/ volume)Ordered By: Adalid King on 12-19-2024 Potassium (Unsp spec) [Mass/Vol] 3.5 mmol/L 3.3-5.1 [facility] Serum creatinine measurement (mass/volume)Ordered By: Adalid King on 12-19-2024 Creatinine [Mass/Vol] 4.53 mg/dL High 0.70-1.20 [facility] Serum globulin measurement ( mass/volume)Ordered By: Adalid King on 12-19-2024 Globulin (S) [Mass/Vol] 4.9 g/dL High 2.2-3.9 [facility] Serum glucose measurement (m ass/volume)Ordered By: Adalid King on 12-19-2024 Glucose [Mass/Vol] 339 mg/dL High 70-99 [facility] Serum hepatitis B virus core antibody detectionOrdered By: Adalid King on 12-19-2024 HBV core Ab Ql (S) Negative Negative [facility] Serum immunoglobulin kappa l ight chains/immunoglobulin lambda light chains mass ratioOrdered By: Adalid King on 12-19-2024 Immunoglobulin light chains.kappa/Immunoglob ulin light chains.lambda (S) [Mass ratio] 0.01 Low 0.26-1.65 [facility] Serum or plasma IgA measurem ent (mass/volume)Ordered By: Adalid King on 12-19-2024 IgA [Mass/Vol] 2947 mg/dL High 61-437 [facility] Serum or plasma IgG measurem ent (mass/volume)Ordered By: Adalid King on 12-19-2024 IgG [Mass/Vol] 377 mg/dL Low 603-1613 [facility] Serum or plasma alanine saunders otransferase (ALT) measurementOrdered By: Adalid King on 12-19-2024 ALT [Catalytic activity/Vol] 51 U/L High <47 [facility] Serum or plasma albumin darell urement (mass/volume)Ordered By: Adalid King on 12-19-2024 Albumin [Mass/Vol] 3.5 g/dL 3.4-4.8 [facility] Serum or plasma albumin/glob ulin mass ratioOrdered By: Adalid King on 12-19-2024 Albumin/Globulin [Mass ratio] 0.8 {ratio} Low 0.9-2.4 [facility] Serum or plasma alkaline chelle sphatase measurementOrdered By: Adalid King on 12-19-2024 ALP [Catalytic activity/Vol] 84 U/L 40-129 [facility] Serum or plasma alpha 1 glob ulin measurement by electrophoresis (mass/volume)Ordered By: Adalid King on 12-19-2024 Alpha 1 globulin Elph [Mass/Vol] 0.3 g/dL 0.0-0.4 [facility] Alpha 1 globulin Elph [Mass/Vol] 1.0 g/dL 0.4-1.0 [facility] Serum or plasma beta globuli n measurement by electrophoresis (mass/volume)Ordered By: Adalid King on 12-19-2024 Beta globulin Elph [Mass/Vol] 3.4 g/dL High 0.7-1.3 [facility] Serum or plasma nnoc-9-xqlwj globulin measurement (mass/volume)Ordered By: Adalid King on 12-19-2024 Ozuq-3-Xitowwswzxkhy [Mass/Vol] 10.1 ug/mL High 0.6-2.4 [facility] Serum or plasma calcium darell urement (mass/volume)Ordered By: Adalid King on 12-19-2024 Calcium [Mass/Vol] 8.4 mg/dL 7.6-11.0 [facility] Serum or plasma gamma globul in measurement by electrophoresis (mass/volume)Ordered By: Adalid King on 12-19-2024 Gamma globulin Elph [Mass/Vol] 0.2 g/dL Low 0.4-1.8 [facility] Serum or plasma hepatitis B virus surface antigen detection by immunoassayOrdered By: Adalid King on 12-19-2024 HBV surface Ag IA Ql Negative Negative [facility] Serum or plasma immunoelectr ophoresis interpretation (nominal result)Ordered By: Adalid King on 12-19-2024 Interpretation IEP [Interp] Comment High . [facility] Serum or plasma immunoglobul in kappa light chains measurement (mass/volume)Ordered By: Adalid King on 12-19-2024 Immunoglobulin light chains.kappa [Mass/Vol] 11.9 mg/L 3.3-19.4 [facility] Serum or plasma protein darell urement (mass/volume)Ordered By: Adalid King on 12-19-2024 Protein [Mass/Vol] 8.0 g/dL 6.0-8.5 [facility] Serum or plasma urea nitroge n measurement (mass/volume)Ordered By: Adalid Costaangus on 12-19-2024 Urea nitrogen [Mass/Vol] 73 mg/dL High 4-19 [facility] Sodium levelOrdered By: Ni King on 12-19-2024 Sodium [Moles/Vol] 127 mmol/L Low 133-145 [facility] Total proteinOrdered By: Avila King on 12-19-2024 Protein [Mass/Vol] 8.2 g/dL 5.9-8.4 [facility] Type AND Screenon 12-19-2024 Ab SCREEN GEL Negative Normal [facility] Comment on above: Order Comment: NTNYA Performed By: #### B RC BTS ####[facility] [address] [place], [address] CBC W/Diff, Automatedon 11-30 Absolute Neut Normal 2.0-7.7 [facility] Comment on above: Result Comment: Canc elled via OM: MD Ordered Performed By: #### L 100.0100 ####[facility] [address] [place], [address] HCT Normal 40-54 [facility] Comment on above: Result Comment: Canc elled via OM: MD Ordered Performed By: #### L 100.0100 ####[facility] [address] [place], [address] HGB Normal 13.0-16.5 [facility] Comment on above: Result Comment: Canc elled via OM: MD Ordered Performed By: #### L 100.0100 ####[facility] [address] [place], [address] MCH Normal 27.0-32.0 [facility] Comment on above: Result Comment: Canc elled via OM: MD Ordered Performed By: #### L 100.0100 ####[facility] [address] [place], [address] MCHC Normal 32-36 [facility] Comment on above: Result Comment: Canc elled via OM: MD Ordered Performed By: #### L 100.0100 ####[facility] [address] [place], [address] MCV Normal 80-94 [facility] Comment on above: Result Comment: Canc elled via OM: MD Ordered Performed By: #### L 100.0100 ####[facility] [address] [place], [address] NEUT% Normal 47-70 [facility] Comment on above: Result Comment: Canc elled via OM: MD Ordered Performed By: #### L 100.0100 ####[facility] [address] [place], [address] PLT Normal 150-450 [facility] Comment on above: Result Comment: Canc elled via OM: MD Ordered Performed By: #### L 100.0100 ####[facility] [address] [place], [address] RBC Normal 4.6-6.2 [facility] Comment on above: Result Comment: Canc elled via OM: MD Ordered Performed By: #### L 100.0100 ####[facility] [address] [place], [address] RDW CV Normal 11.6-14.6 [facility] Comment on above: Result Comment: Canc elled via OM: MD Ordered Performed By: #### L 100.0100 ####[facility] [address] [place], [address] RDW SD Normal 35.1-43.9 [facility] Comment on above: Result Comment: Canc elled via OM: MD Ordered Performed By: #### L 100.0100 ####[facility] [address] [place], [address] WBC Normal 4.4-11.0 [facility] Comment on above: Result Comment: Canc elled via OM: MD Ordered Performed By: #### L 100.0100 ####[facility] [address] [place], [address] CBC W/Diff, Automatedon 10- Absolute Neut Normal 2.0-7.7 [facility] Comment on above: Result Comment: Canc elled via OM: MD Ordered Performed By: #### L 100.0100 ####[facility] [address] [place], [address] HCT Normal 40-54 [facility] Comment on above: Result Comment: Canc elled via OM: MD Ordered Performed By: #### L 100.0100 ####[facility] [address] [place], [address] HGB Normal 13.0-16.5 [facility] Comment on above: Result Comment: Canc elled via OM: MD Ordered Performed By: #### L 100.0100 ####[facility] [address] [place], [address] MCH Normal 27.0-32.0 [facility] Comment on above: Result Comment: Canc elled via OM: MD Ordered Performed By: #### L 100.0100 ####[facility] [address] [place], [address] MCHC Normal 32-36 [facility] Comment on above: Result Comment: Canc elled via OM: MD Ordered Performed By: #### L 100.0100 ####[facility] [address] [place], [address] MCV Normal 80-94 [facility] Comment on above: Result Comment: Canc elled via OM: MD Ordered Performed By: #### L 100.0100 ####[facility] [address] [place], [address] NEUT% Normal 47-70 [facility] Comment on above: Result Comment: Canc elled via OM: MD Ordered Performed By: #### L 100.0100 ####[facility] [address] [place], [address] PLT Normal 150-450 [facility] Comment on above: Result Comment: Canc elled via OM: MD Ordered Performed By: #### L 100.0100 ####[facility] [address] [place], [address] RBC Normal 4.6-6.2 [facility] Comment on above: Result Comment: Canc elled via OM: MD Ordered Performed By: #### L 100.0100 ####[facility] [address] [place], [address] RDW CV Normal 11.6-14.6 [facility] Comment on above: Result Comment: Canc elled via OM: MD Ordered Performed By: #### L 100.0100 ####[facility] [address] [place], [address] RDW SD Normal 35.1-43.9 [facility] Comment on above: Result Comment: Canc elled via OM: MD Ordered Performed By: #### L 100.0100 ####[facility] [address] [place], [address] WBC Normal 4.4-11.0 [facility] Comment on above: Result Comment: Canc elled via OM: MD Ordered Performed By: #### L 100.0100 ####[facility] [address] [place], [address] CBC W/Diff, Automatedon 10-1 Absolute Neut Normal 2.0-7.7 [facility] Comment on above: Result Comment: Canc elled via OM: MD Ordered Performed By: #### L 100.0100 ####[facility] [address] [place], [address] HCT Normal 40-54 [facility] Comment on above: Result Comment: Canc elled via OM: MD Ordered Performed By: #### L 100.0100 ####[facility] [address] [place], [address] HGB Normal 13.0-16.5 [facility] Comment on above: Result Comment: Canc elled via OM: MD Ordered Performed By: #### L 100.0100 ####[facility] [address] [place], [address] MCH Normal 27.0-32.0 [facility] Comment on above: Result Comment: Canc elled via OM: MD Ordered Performed By: #### L 100.0100 ####[facility] [address] [place], [address] MCHC Normal 32-36 [facility] Comment on above: Result Comment: Canc elled via OM: MD Ordered Performed By: #### L 100.0100 ####[facility] [address] [place], [address] MCV Normal 80-94 [facility] Comment on above: Result Comment: Canc elled via OM: MD Ordered Performed By: #### L 100.0100 ####[facility] [address] [place], [address] NEUT% Normal 47-70 [facility] Comment on above: Result Comment: Canc elled via OM: MD Ordered Performed By: #### L 100.0100 ####[facility] [address] [place], [address] PLT Normal 150-450 [facility] Comment on above: Result Comment: Canc elled via OM: MD Ordered Performed By: #### L 100.0100 ####[facility] [address] [place], [address] RBC Normal 4.6-6.2 [facility] Comment on above: Result Comment: Canc elled via OM: MD Ordered Performed By: #### L 100.0100 ####[facility] [address] [place], [address] RDW CV Normal 11.6-14.6 [facility] Comment on above: Result Comment: Canc elled via OM: MD Ordered Performed By: #### L 100.0100 ####[facility] [address] [place], [address] RDW SD Normal 35.1-43.9 [facility] Comment on above: Result Comment: Canc elled via OM: MD Ordered Performed By: #### L 100.0100 ####[facility] [address] [place], [address] WBC Normal 4.4-11.0 [facility] Comment on above: Result Comment: Canc elled via OM: MD Ordered Performed By: #### L 100.0100 ####[facility] [address] [place], [address] Oncology Visit Reporton 11-30 Oncology Visit Report Normal [facility] Viscosity, Serumon VISCOSITY,SERUM 2.4 rel.saline High 1.4-2.1 [facility] Comment on above: Order Comment: Test( s) 912277-Uidafytxi, Serumwas developed and its performance characteristicsdetermined by [facility]. It has not been cleared or approvedby the Food and Drug Administration. Result Comment: Valu es above 2.7 may indicate paraproteinemia is present.Performed at: [address] [id number] Director: Colt Rich MD, Phone: [phone] Performed By: #### L 5765.8896 ####[facility] [address] [place], [address] Bone Marrow Aspiratonon 11-30 BONE MARROW ASP SEE PATHOLOGY REPORT Normal [facility] Comment on above: Order Comment: SPECI MEN SENT TO [facility] FOR PROCESSING, RESULTS WILL BEREPORTED IN THE EMR SOON THEY ARE COMPLETED. Result Comment: Spec imen submitted to Anatomical Pathology Department fortesting. Performed By: #### L 350.0900 ####[facility] [address] [place], [address] CBC W/Diff, Automatedon 11-30 Absolute Neut Normal 2.0-7.7 [facility] Comment on above: Result Comment: Canc elled via OM: MD Ordered Performed By: #### L 100.0100 ####[facility] [address] [place], [address] HCT Normal 40-54 [facility] Comment on above: Result Comment: Canc elled via OM: MD Ordered Performed By: #### L 100.0100 ####[facility] [address] [place], [address] HGB Normal 13.0-16.5 [facility] Comment on above: Result Comment: Canc elled via OM: MD Ordered Performed By: #### L 100.0100 ####[facility] [address] [place], [address] MCH Normal 27.0-32.0 [facility] Comment on above: Result Comment: Canc elled via OM: MD Ordered Performed By: #### L 100.0100 ####[facility] [address] [place], [address] MCHC Normal 32-36 [facility] Comment on above: Result Comment: Canc elled via OM: MD Ordered Performed By: #### L 100.0100 ####[facility] [address] [place], [address] MCV Normal 80-94 [facility] Comment on above: Result Comment: Canc elled via OM: MD Ordered Performed By: #### L 100.0100 ####[facility] [address] [place], [address] NEUT% Normal 47-70 [facility] Comment on above: Result Comment: Canc elled via OM: MD Ordered Performed By: #### L 100.0100 ####[facility] [address] [place], [address] PLT Normal 150-450 [facility] Comment on above: Result Comment: Canc elled via OM: MD Ordered Performed By: #### L 100.0100 ####[facility] [address] [place], [address] RBC Normal 4.6-6.2 [facility] Comment on above: Result Comment: Canc elled via OM: MD Ordered Performed By: #### L 100.0100 ####[facility] [address] [place], [address] RDW CV Normal 11.6-14.6 [facility] Comment on above: Result Comment: Canc elled via OM: MD Ordered Performed By: #### L 100.0100 ####[facility] [address] [place], [address] RDW SD Normal 35.1-43.9 [facility] Comment on above: Result Comment: Canc elled via OM: MD Ordered Performed By: #### L 100.0100 ####[facility] [address] [place], [address] WBC Normal 4.4-11.0 [facility] Comment on above: Result Comment: Canc elled via OM: MD Ordered Performed By: #### L 100.0100 ####[facility] [address] [place], [address] Absolute lymphocyte countOrd ered By: Claire Mazariegos on 12-12-2024 Lymphocytes Auto (Unsp spec) [#/Vol] 1.34 10*3/uL 0.83-4.51 [facility] Anion gap in Serum or Plasma Ordered By: Suraj Paz on 12-12-2024 Anion gap [Moles/Vol] 13 mmol/L 5-15 [facility] Automated lymphocyte count a s percentage of total leukocytesOrdered By: Claire Mazariegos on 12-12-2024 Lymphocytes/100 WBC Auto (Unsp spec) 36.9 % 19-41 [facility] BRCon 12-12-2024 RC Normal [facility] Comment on above: Result Comment: [id number] OP RC TRANSFUSED 12/12/24 1437 Performed By: #### B RC, BTS ####[facility] [address] [place], [address] BUN/creatinine ratioOrdered By: Suraj Paz on 12-12-2024 Urea nitrogen/Creatinine [Mass ratio] 11.3 mg/mg - [facility] Basic Metabolic Profile (BMP )on 12-12-2024 BUN/CRE 11.3 RATIO Normal 12-19 [facility] Comment on above: Performed By: #### L 500.2500 ####[facility] [address] [place], [address] Calcium [Mass/Vol] 10.3 mg/dL Normal 7.6-11.0 [facility] Comment on above: Performed By: #### L 500.2500 ####[facility] [address] [place], [address] Chloride [Moles/Vol] 94 mmol/L Low 98-108 [facility] Comment on above: Performed By: #### L 500.2500 ####[facility] [address] [place], [address] CO2 [Moles/Vol] 22.0 mmol/L Normal 21.0-32.0 [facility] Comment on above: Performed By: #### L 500.2500 ####[facility] [address] [place], [address] Creatinine [Mass/Vol] 5.84 mg/dL High 0.70-1.20 [facility] Comment on above: Performed By: #### L 500.2500 ####[facility] [address] [place], [address] ECRCL 10.33 ml/min Low 50-250 [facility] Comment on above: Performed By: #### L 500.2500 ####[facility] [address] [place], [address] GAP 13 Normal 5-15 [facility] Comment on above: Performed By: #### L 500.2500 ####[facility] [address] [place], [address] GFR/1.73 sq M.predicted among non-blacks MDRD (S/P/Bld) [Vol rate/Area] 9 mL/min/{1.73_m2} Low >60 [facility] Comment on above: Result Comment: mL/m in/1.73m2 CKD-EPI Creatinine Equation (2020) Performed By: #### L 500.2500 ####[facility] [address] [place], [address] Glucose [Mass/Vol] 150 mg/dL High 70-99 [facility] Comment on above: Performed By: #### L 500.2500 ####[facility] [address] [place], [address] Potassium [Moles/Vol] 3.6 mmol/L Normal 3.3-5.1 [facility] Comment on above: Performed By: #### L 500.2500 ####[facility] [address] [place], [address] Sodium [Moles/Vol] 129 mmol/L Low 133-145 [facility] Comment on above: Performed By: #### L 500.2500 ####[facility] [address] [place], [address] Urea nitrogen [Mass/Vol] 66 mg/dL High 4-19 [facility] Comment on above: Performed By: #### L 500.2500 ####[facility] [address] [place], [address] Basophil percentageOrdered B y: Claire Mazariegos on 12-12-2024 Basophils/100 WBC (Bld) 0.3 % 0-1 [facility] Bedside Glucoseon 12-12-2024 FINGERSTICK GLU 255 mg/dL High 74-106 [facility] Comment on above: Result Comment: ANA GEMENT OF PATIENT CARE PER NURSING PROTOCOL Performed By: #### L 501.080 ####[facility] [address] [place], [address] FINGERSTICK GLU 213 mg/dL High 74-106 [facility] Comment on above: Result Comment: ANA GEMENT OF PATIENT CARE PER NURSING PROTOCOL Performed By: #### L 501.080 ####[facility] [address] [place], [address] FINGERSTICK GLU 133 mg/dL High 74-106 [facility] Comment on above: Result Comment: ANA GEMENT OF PATIENT CARE PER NURSING PROTOCOL Performed By: #### L 501.080 ####[facility] [address] [place], [address] CBC W/Diff, Automatedon 11-30 Absolute Lymph 1.34 X10 3/uL Normal 0.83-4.51 [facility] Comment on above: Performed By: #### L 100.0100 ####[facility] [address] [place], [address] Absolute Neut 1.6 X10 3/uL Low 2.0-7.7 [facility] Comment on above: Performed By: #### L 100.0100 ####[facility] [address] [place], [address] Basophils/100 WBC (Bld) 0.3 % Normal 0-1 [facility] Comment on above: Performed By: #### L 100.0100 ####[facility] [address] [place], [address] Eosinophils/100 WBC (Bld) 3.0 % Normal 0-5 [facility] Comment on above: Performed By: #### L 100.0100 ####[facility] [address] [place], [address] Erythrocyte distribution width (RBC) [Ratio] 11.9 % Normal 11.6-14.6 [facility] Comment on above: Performed By: #### L 100.0100 ####[facility] [address] [place], [address] Hematocrit (Bld) [Volume fraction] 19.4 % Low 40-54 [facility] Comment on above: Performed By: #### L 100.0100 ####[facility] [address] [place], [address] Hemoglobin (Bld) [Mass/Vol] 6.9 g/dL Low 13.0-16.5 [facility] Comment on above: Performed By: #### L 100.0100 ####[facility] [address] [place], [address] IG% 0.300 Normal 0.0-0.9 [facility] Comment on above: Result Comment: IG% - Immature Granulocytes (promyelocytes, myelocytes andmetamyelocytes) > 1% indicates that a LEFT SHIFT is Present. Performed By: #### L 100.0100 ####[facility] [address] [place], [address] Lymphocytes/100 WBC (Bld) 36.9 % Normal 19-41 [facility] Comment on above: Performed By: #### L 100.0100 ####[facility] [address] [place], [address] MCH (RBC) [Entitic mass] 36.1 pg High 27.0-32.0 [facility] Comment on above: Performed By: #### L 100.0100 ####[facility] [address] [place], [address] MCHC (RBC) [Mass/Vol] 35.6 g/dL Normal 32-36 [facility] Comment on above: Performed By: #### L 100.0100 ####[facility] [address] [place], [address] MCV (RBC) [Entitic vol] 101.6 fL High 80-94 [facility] Comment on above: Performed By: #### L 100.0100 ####[facility] [address] [place], [address] Monocytes/100 WBC (Bld) 14.3 % High 0-10 [facility] Comment on above: Performed By: #### L 100.0100 ####[facility] [address] [place], [address] Neutrophils/100 WBC (Bld) 45.2 % Low 47-70 [facility] Comment on above: Performed By: #### L 100.0100 ####[facility] [address] [place], [address] Nucleated RBC (Bld) [#/Vol] 0 10*3/uL Normal 0-5 [facility] Comment on above: Performed By: #### L 100.0100 ####[facility] [address] [place], [address] Platelet mean volume (Bld) [Entitic vol] 10.0 fL Normal 6.2-12.0 [facility] Comment on above: Performed By: #### L 100.0100 ####[facility] [address] [place], [address] Platelets (Bld) [#/Vol] 147 10*3/uL Low 150-450 [facility] Comment on above: Performed By: #### L 100.0100 ####[facility] [address] [place], [address] RBC (Bld) [#/Vol] 1.91 10*6/uL Low 4.6-6.2 [facility] Comment on above: Performed By: #### L 100.0100 ####[facility] [address] [place], [address] RDW SD 43.8 fl Normal 35.1-43.9 [facility] Comment on above: Performed By: #### L 100.0100 ####[facility] [address] [place], [address] WBC (Bld) [#/Vol] 3.6 10*3/uL Low 4.4-11.0 [facility] Comment on above: Performed By: #### L 100.0100 ####[facility] [address] [place], [address] Carbon dioxide, total [Moles /volume] in Central venous bloodOrdered By: Suraj Paz on 12-12-2024 CO2 [Moles/Vol] 22.0 mmol/L 21.0-32.0 [facility] Chloride assayOrdered By: Lara Paz on 12-12-2024 Chloride [Moles/Vol] 94 mmol/L Low 98-108 [facility] Discharge Instructionon 11-30 Discharge Instruction Normal [facility] Eosinophil percentageOrdered By: Claire Mazariegos on 12-12-2024 Eosinophils/100 WBC (Bld) 3.0 % 0-5 [facility] Erythrocyte distribution wid th ratioOrdered By: Claire Mazariegos on 12-12-2024 Erythrocyte distribution width (RBC) [Ratio] 11.9 % 11.6-14.6 [facility] Erythrocyte distribution wid th standard deviationOrdered By: Claire Mazariegos on 12-12-2024 Erythrocyte distribution width (RBC) [Ratio] 43.8 fl 35.1-43.9 [facility] Glomerular filtration rate ( GFR) estimation/1.73 sq m using serum, plasma, or whole bOrdered By: Suraj Paz on 12-12-2024 GFR/1.73 sq M.predicted among non-blacks MDRD (S/P/Bld) [Vol rate/Area] 9 mL/min/{1.73_m2} Low >60 [facility] deOrdered By: Suraj Paz on 12-12-2024 Glucose [Mass/Vol] 255 mg/dL High 74-106 [facility] HH, Hemoglobin AND Hematocri ton 12-12-2024 Hematocrit (Bld) [Volume fraction] 20.1 % Low 40-54 [facility] Comment on above: Performed By: #### L 100.0600 ####[facility] [address] [facility] [place], [place], [phone] Hemoglobin (Bld) [Mass/Vol] 7.2 g/dL Low 13.0-16.5 [facility] Comment on above: Performed By: #### L 100.0600 ####[facility] [address] [facility] [place], [place], [phone] Hematocrit Auto (Bld) [Volum e fraction]Ordered By: Suraj Paz on 12-12-2024 Hematocrit (Bld) [Volume fraction] 20.1 % Low 40-54 [facility] Hemoglobin measurementOrdere d By: Suraj Paz on 12-12-2024 Hemoglobin (Bld) [Mass/Vol] 7.2 g/dL Low 13.0-16.5 [facility] Immature granulocytes/100 WB C Auto (Bld)Ordered By: Claire Mazariegos on 12-12-2024 Immature granulocytes/100 WBC (Bld) 0.300 % 0.0-0.9 [facility] MCV (mean corpuscular volume ) determinationOrdered By: Claire Mazariegos on 12-12-2024 MCV (RBC) [Entitic vol] 101.6 fL High 80-94 [facility] Mean corpuscular hemoglobin (MCH) determinationOrdered By: Claire Mazariegos on 12-12-2024 MCH (RBC) [Entitic mass] 36.1 pg High 27.0-32.0 [facility] Monocyte percentageOrdered B y: Claire Mazariegos on 12-12-2024 Monocytes/100 WBC (Bld) 14.3 % High 0-10 [facility] Neutrophil percentageOrdered By: Claire Mazariegos on 12-12-2024 Neutrophils/100 WBC (Bld) 45.2 % Low 47-70 [facility] Platelet countOrdered By: Mariaa Mazariegos on 12-12-2024 Platelets (Bld) [#/Vol] 147 10*3/uL Low 150-450 [facility] Potassium measurement (mass/ volume)Ordered By: Suraj Paz on 12-12-2024 Potassium (Unsp spec) [Mass/Vol] 3.6 mmol/L 3.3-5.1 [facility] Protein Electro.Ur-Randomon 12-12-2024 M-SPIKE,U Normal [facility] Comment on above: Result Comment: COMM ENT:M-SPIKE #1 = 8.5%M-SPIKE #2 = 46.5% Performed By: #### L 501.3620, L501.7300, L3600.4000, L501.5200, L501.9520, L509.1000, L3100.3425, L506.1001, L501.2300 ####[facility] [address] [place], [place], [id number] RBC Auto (Bld) [#/Vol]Ordere d By: Claire Mazariegos on 12-12-2024 RBC (Bld) [#/Vol] 1.91 10*6/uL Low 4.6-6.2 [facility] Serum creatinine measurement (mass/volume)Ordered By: Suraj Paz on 12-12-2024 Creatinine [Mass/Vol] 5.84 mg/dL High 0.70-1.20 [facility] Serum glucose measurement (m ass/volume)Ordered By: Suraj Paz on 12-12-2024 Glucose [Mass/Vol] 150 mg/dL High 70-99 [facility] Serum or plasma calcium darell urement (mass/volume)Ordered By: Suraj Paz on 12-12-2024 Calcium [Mass/Vol] 10.3 mg/dL 7.6-11.0 [facility] Serum or plasma urea nitroge n measurement (mass/volume)Ordered By: Suraj Paz on 12-12-2024 Urea nitrogen [Mass/Vol] 66 mg/dL High 4-19 [facility] Sodium levelOrdered By: Jae Paz on 12-12-2024 Sodium [Moles/Vol] 129 mmol/L Low 133-145 [facility] Type AND Screenon 12-12-2024 ABO and Rh group Nom (Bld) Blood group O Rh(D) positive Normal [facility] Comment on above: Order Comment: CMV N EG? NNumber of units to transfuse: 1Reason for Ordering Blood: ChronicAre the blood/blood products to be transfused? YIs the patient having/had surgery? Ever Jack Performed By: #### B HARLEEN, BTS ####[facility] [address] [place], [place], [id number] White blood cell (WBC) count Ordered By: Claire Mazariegos on 12-12-2024 WBC (Bld) [#/Vol] 3.6 10*3/uL Low 4.4-11.0 [facility] Basic Metabolic Profile (BMP )on 12-11-2024 BUN/CRE 9.8 RATIO Low 10-20 [facility] Comment on above: Performed By: #### L 100.0500, L500.2500 ####[facility] [address] [place], [place], [id number] Calcium [Mass/Vol] 10.1 mg/dL Normal 7.6-11.0 [facility] Comment on above: Performed By: #### L 100.0500, L500.2500 ####[facility] [address] [place], [address] Chloride [Moles/Vol] 98 mmol/L Normal 98-108 [facility] Comment on above: Performed By: #### L 100.0500, L500.2500 ####[facility] [address] [place], [address] CO2 [Moles/Vol] 22.0 mmol/L Normal 21.0-32.0 [facility] Comment on above: Performed By: #### L 100.0500, L500.2500 ####[facility] [address] [place], [address] Creatinine [Mass/Vol] 4.77 mg/dL High 0.70-1.20 [facility] Comment on above: Performed By: #### L 100.0500, L500.2500 ####[facility] [address] [place], [address] ECRCL 12.65 ml/min Low 50-250 [facility] Comment on above: Performed By: #### L 100.0500, L500.2500 ####[facility] [address] [place], [address] GAP 14 Normal 5-15 [facility] Comment on above: Performed By: #### L 100.0500, L500.2500 ####[facility] [address] [place], [address] GFR/1.73 sq M.predicted among non-blacks MDRD (S/P/Bld) [Vol rate/Area] 11 mL/min/{1.73_m2} Low >60 [facility] Comment on above: Result Comment: mL/m in/1.73m2 CKD-EPI Creatinine Equation (2020) Performed By: #### L 100.0500, L500.2500 ####[facility] [address] [place], [address] Glucose [Mass/Vol] 116 mg/dL High 70-99 [facility] Comment on above: Performed By: #### L 100.0500, L500.2500 ####[facility] [address] [place], [address] Potassium [Moles/Vol] 3.4 mmol/L Normal 3.3-5.1 [facility] Comment on above: Performed By: #### L 100.0500, L500.2500 ####[facility] [address] [place], [address] Sodium [Moles/Vol] 133 mmol/L Normal 133-145 [facility] Comment on above: Performed By: #### L 100.0500, L500.2500 ####[facility] [address] [place], [address] Urea nitrogen [Mass/Vol] 47 mg/dL High 4-19 [facility] Comment on above: Performed By: #### L 100.0500, L500.2500 ####[facility] [address] [place], [address] Bedside Glucoseon 12-11-2024 FINGERSTICK GLU 174 mg/dL High 74-106 [facility] Comment on above: Result Comment: ANA GEMENT OF PATIENT CARE PER NURSING PROTOCOL Performed By: #### L 501.080 ####[facility] [address] [place], [address] FINGERSTICK GLU 190 mg/dL High 74-106 [facility] Comment on above: Result Comment: ANA GEMENT OF PATIENT CARE PER NURSING PROTOCOL Performed By: #### L 501.080 ####[facility] [address] [place], [address] FINGERSTICK GLU 173 mg/dL High 74-106 [facility] Comment on above: Result Comment: ANA GEMENT OF PATIENT CARE PER NURSING PROTOCOL Performed By: #### L 501.080 ####[facility] [address] [place], [address] FINGERSTICK GLU 114 mg/dL High 74-106 [facility] Comment on above: Result Comment: ANA GEMENT OF PATIENT CARE PER NURSING PROTOCOL Performed By: #### L 501.080 ####[facility] [address] [place], [address] CBC W/Diff, Automatedon 10-1 2-2024 Absolute Lymph 0.88 X10 3/uL Normal 0.83-4.51 [facility] Comment on above: Performed By: #### L 100.0100 ####[facility] [address] [place], [address] Absolute Neut 1.5 X10 3/uL Low 2.0-7.7 [facility] Comment on above: Performed By: #### L 100.0100 ####[facility] [address] [place], [address] Basophils/100 WBC (Bld) 0.3 % Normal 0-1 [facility] Comment on above: Performed By: #### L 100.0100 ####[facility] [address] [place], [address] Eosinophils/100 WBC (Bld) 0.0 % Normal 0-5 [facility] Comment on above: Performed By: #### L 100.0100 ####[facility] [address] [place], [address] Erythrocyte distribution width (RBC) [Ratio] 12.0 % Normal 11.6-14.6 [facility] Comment on above: Performed By: #### L 100.0100 ####[facility] [address] [place], [address] Hematocrit (Bld) [Volume fraction] 20.6 % Low 40-54 [facility] Comment on above: Performed By: #### L 100.0100 ####[facility] [address] [place], [address] Hemoglobin (Bld) [Mass/Vol] 7.3 g/dL Low 13.0-16.5 [facility] Comment on above: Performed By: #### L 100.0100 ####[facility] [address] [place], [address] IG% 0.000 Normal 0.0-0.9 [facility] Comment on above: Result Comment: IG% - Immature Granulocytes (promyelocytes, myelocytes andmetamyelocytes) > 1% indicates that a LEFT SHIFT is Present. Performed By: #### L 100.0100 ####[facility] [address] [place], [address] Lymphocytes/100 WBC (Bld) 30.3 % Normal 19-41 [facility] Comment on above: Performed By: #### L 100.0100 ####[facility] [address] [place], [address] MCH (RBC) [Entitic mass] 36.0 pg High 27.0-32.0 [facility] Comment on above: Performed By: #### L 100.0100 ####[facility] [address] [place], [address] MCHC (RBC) [Mass/Vol] 35.4 g/dL Normal 32-36 [facility] Comment on above: Performed By: #### L 100.0100 ####[facility] [address] [place], [address] MCV (RBC) [Entitic vol] 101.5 fL High 80-94 [facility] Comment on above: Performed By: #### L 100.0100 ####[facility] [address] [place], [address] Monocytes/100 WBC (Bld) 19.0 % High 0-10 [facility] Comment on above: Performed By: #### L 100.0100 ####[facility] [address] [place], [address] Neutrophils/100 WBC (Bld) 50.4 % Normal 47-70 [facility] Comment on above: Performed By: #### L 100.0100 ####[facility] [address] [place], [address] Nucleated RBC (Bld) [#/Vol] 0 10*3/uL Normal 0-5 [facility] Comment on above: Performed By: #### L 100.0100 ####[facility] [address] [place], [address] Platelet mean volume (Bld) [Entitic vol] 9.8 fL Normal 6.2-12.0 [facility] Comment on above: Performed By: #### L 100.0100 ####[facility] [address] [place], [address] Platelets (Bld) [#/Vol] 139 10*3/uL Low 150-450 [facility] Comment on above: Performed By: #### L 100.0100 ####[facility] [address] [place], [address] RBC (Bld) [#/Vol] 2.03 10*6/uL Low 4.6-6.2 [facility] Comment on above: Performed By: #### L 100.0100 ####[facility] [address] [place], [address] RDW SD 43.9 fl Normal 35.1-43.9 [facility] Comment on above: Performed By: #### L 100.0100 ####[facility] [address] [place], [address] WBC (Bld) [#/Vol] 2.9 10*3/uL Low 4.4-11.0 [facility] Comment on above: Performed By: #### L 100.0100 ####[facility] [address] [place], [address] CBC-Complete Blood Cnt No Di ffon 12-11-2024 HCT Normal 40-54 [facility] Comment on above: Result Comment: Canc elled via OM: MD Ordered Performed By: #### L 100.0500, L500.2500 ####[facility] [address] [place], [address] HGB Normal 13.0-16.5 [facility] Comment on above: Result Comment: Canc elled via OM: MD Ordered Performed By: #### L 100.0500, L500.2500 ####[facility] [address] [place], [address] MCH Normal 27.0-32.0 [facility] Comment on above: Result Comment: Canc elled via OM: MD Ordered Performed By: #### L 100.0500, L500.2500 ####[facility] [address] [place], [address] MCHC Normal 32-36 [facility] Comment on above: Result Comment: Canc elled via OM: MD Ordered Performed By: #### L 100.0500, L500.2500 ####[facility] [address] [place], [address] MCV Normal 80-94 [facility] Comment on above: Result Comment: Canc elled via OM: MD Ordered Performed By: #### L 100.0500, L500.2500 ####[facility] [address] [place], [address] PLT Normal 150-450 [facility] Comment on above: Result Comment: Canc elled via OM: MD Ordered Performed By: #### L 100.0500, L500.2500 ####[facility] [address] [place], [address] RBC Normal 4.6-6.2 [facility] Comment on above: Result Comment: Canc elled via OM: MD Ordered Performed By: #### L 100.0500, L500.2500 ####[facility] [address] [place], [address] RDW CV Normal 11.6-14.6 [facility] Comment on above: Result Comment: Canc elled via OM: MD Ordered Performed By: #### L 100.0500, L500.2500 ####[facility] [address] [place], [address] RDW SD Normal 35.1-43.9 [facility] Comment on above: Result Comment: Canc elled via OM: MD Ordered Performed By: #### L 100.0500, L500.2500 ####[facility] [address] [place], [address] WBC Normal 4.4-11.0 [facility] Comment on above: Result Comment: Canc elled via OM: MD Ordered Performed By: #### L 100.0500, L500.2500 ####[facility] [address] [place], [address] Basic Metabolic Profile (BMP )on 12-10-2024 BUN/CRE 12.0 RATIO Normal 10-20 [facility] Comment on above: Performed By: #### L 500.2500, L100.0500 ####[facility] [address] [place], [address] Calcium [Mass/Vol] 10.8 mg/dL Normal 7.6-11.0 [facility] Comment on above: Performed By: #### L 500.2500, L100.0500 ####[facility] [address] [place], [address] Chloride [Moles/Vol] 96 mmol/L Low 98-108 [facility] Comment on above: Performed By: #### L 500.2500, L100.0500 ####[facility] [address] [place], [address] CO2 [Moles/Vol] 21.1 mmol/L Normal 21.0-32.0 [facility] Comment on above: Performed By: #### L 500.2500, L100.0500 ####[facility] [address] [place], [address] Creatinine [Mass/Vol] 6.03 mg/dL High 0.70-1.20 [facility] Comment on above: Performed By: #### L 500.2500, L100.0500 ####[facility] [address] [place], [address] ECRCL 10.01 ml/min Low 50-250 [facility] Comment on above: Performed By: #### L 500.2500, L100.0500 ####[facility] [address] [place], [address] GAP 14 Normal 5-15 [facility] Comment on above: Performed By: #### L 500.2500, L100.0500 ####[facility] [address] [place], [address] GFR/1.73 sq M.predicted among non-blacks MDRD (S/P/Bld) [Vol rate/Area] 9 mL/min/{1.73_m2} Low >60 [facility] Comment on above: Result Comment: mL/m in/1.73m2 CKD-EPI Creatinine Equation (2020) Performed By: #### L 500.2500, L100.0500 ####[facility] [address] [place], [address] Glucose [Mass/Vol] 135 mg/dL High 70-99 [facility] Comment on above: Performed By: #### L 500.2500, L100.0500 ####[facility] [address] [place], [address] Potassium [Moles/Vol] 3.6 mmol/L Normal 3.3-5.1 [facility] Comment on above: Performed By: #### L 500.2500, L100.0500 ####[facility] [address] [place], [address] Sodium [Moles/Vol] 131 mmol/L Low 133-145 [facility] Comment on above: Performed By: #### L 500.2500, L100.0500 ####[facility] [address] [place], [address] Urea nitrogen [Mass/Vol] 72 mg/dL High 4-19 [facility] Comment on above: Performed By: #### L 500.2500, L100.0500 ####[facility] [address] [place], [address] Bedside Glucoseon 12-10-2024 FINGERSTICK GLU 156 mg/dL High 74-106 [facility] Comment on above: Result Comment: ANA GEMENT OF PATIENT CARE PER NURSING PROTOCOL Performed By: #### L 501.080 ####[facility] [address] [place], [address] FINGERSTICK GLU 205 mg/dL High 74-106 [facility] Comment on above: Result Comment: ANA GEMENT OF PATIENT CARE PER NURSING PROTOCOL Performed By: #### L 501.080 ####[facility] [address] [place], [address] FINGERSTICK GLU 113 mg/dL High 74-106 [facility] Comment on above: Result Comment: ANA GEMENT OF PATIENT CARE PER NURSING PROTOCOL Performed By: #### L 501.080 ####[facility] [address] [place], [address] FINGERSTICK GLU 119 mg/dL High 74-106 [facility] Comment on above: Result Comment: ANA PARKER OF PATIENT CARE PER NURSING PROTOCOL Performed By: #### L 501.080 ####[facility] [address] [place], [address] CBC W/Diff, Automatedon 10- Absolute Lymph 0.91 X10 3/uL Normal 0.83-4.51 [facility] Comment on above: Performed By: #### L 100.0100 ####[facility] [address] [place], [address] Absolute Neut 3.1 X10 3/uL Normal 2.0-7.7 [facility] Comment on above: Performed By: #### L 100.0100 ####[facility] [address] [place], [address] Basophils/100 WBC (Bld) 0.2 % Normal 0-1 [facility] Comment on above: Performed By: #### L 100.0100 ####[facility] [address] [place], [address] Eosinophils/100 WBC (Bld) 1.9 % Normal 0-5 [facility] Comment on above: Performed By: #### L 100.0100 ####[facility] [address] [place], [address] Erythrocyte distribution width (RBC) [Ratio] 11.9 % Normal 11.6-14.6 [facility] Comment on above: Performed By: #### L 100.0100 ####[facility] [address] [place], [address] Hematocrit (Bld) [Volume fraction] 19.9 % Low 40-54 [facility] Comment on above: Performed By: #### L 100.0100 ####[facility] [address] [place], [address] Hemoglobin (Bld) [Mass/Vol] 7.2 g/dL Low 13.0-16.5 [facility] Comment on above: Performed By: #### L 100.0100 ####[facility] [address] [place], [address] IG% 0.600 Normal 0.0-0.9 [facility] Comment on above: Result Comment: IG% - Immature Granulocytes (promyelocytes, myelocytes andmetamyelocytes) > 1% indicates that a LEFT SHIFT is Present. Performed By: #### L 100.0100 ####[facility] [address] [place], [address] Lymphocytes/100 WBC (Bld) 19.1 % Normal 19-41 [facility] Comment on above: Performed By: #### L 100.0100 ####[facility] [address] [place], [address] MCH (RBC) [Entitic mass] 36.5 pg High 27.0-32.0 [facility] Comment on above: Performed By: #### L 100.0100 ####[facility] [address] [place], [address] MCHC (RBC) [Mass/Vol] 36.2 g/dL High 32-36 [facility] Comment on above: Performed By: #### L 100.0100 ####[facility] [address] [place], [address] MCV (RBC) [Entitic vol] 101.0 fL High 80-94 [facility] Comment on above: Performed By: #### L 100.0100 ####[facility] [address] [place], [address] Monocytes/100 WBC (Bld) 12.6 % High 0-10 [facility] Comment on above: Performed By: #### L 100.0100 ####[facility] [address] [place], [address] Neutrophils/100 WBC (Bld) 65.6 % Normal 47-70 [facility] Comment on above: Performed By: #### L 100.0100 ####[facility] [address] [place], [address] Nucleated RBC (Bld) [#/Vol] 0 10*3/uL Normal 0-5 [facility] Comment on above: Performed By: #### L 100.0100 ####[facility] [address] [place], [address] Platelet mean volume (Bld) [Entitic vol] 10.0 fL Normal 6.2-12.0 [facility] Comment on above: Performed By: #### L 100.0100 ####[facility] [address] [place], [address] Platelets (Bld) [#/Vol] 147 10*3/uL Low 150-450 [facility] Comment on above: Performed By: #### L 100.0100 ####[facility] [address] [place], [address] RBC (Bld) [#/Vol] 1.97 10*6/uL Low 4.6-6.2 [facility] Comment on above: Performed By: #### L 100.0100 ####[facility] [address] [place], [address] RDW SD 43.4 fl Normal 35.1-43.9 [facility] Comment on above: Performed By: #### L 100.0100 ####[facility] [address] [place], [address] WBC (Bld) [#/Vol] 4.8 10*3/uL Normal 4.4-11.0 [facility] Comment on above: Performed By: #### L 100.0100 ####[facility] [address] [place], [address] CBC-Complete Blood Cnt No Di ffon 12-10-2024 HCT Normal 40-54 [facility] Comment on above: Result Comment: Canc elled via OM: MD Ordered Performed By: #### L 500.2500, L100.0500 ####[facility] [address] [place], [address] HGB Normal 13.0-16.5 [facility] Comment on above: Result Comment: Canc elled via OM: MD Ordered Performed By: #### L 500.2500, L100.0500 ####[facility] [address] [place], [address] MCH Normal 27.0-32.0 [facility] Comment on above: Result Comment: Canc elled via OM: MD Ordered Performed By: #### L 500.2500, L100.0500 ####[facility] [address] [place], [address] MCHC Normal 32-36 [facility] Comment on above: Result Comment: Canc elled via OM: MD Ordered Performed By: #### L 500.2500, L100.0500 ####[facility] [address] [place], [address] MCV Normal 80-94 [facility] Comment on above: Result Comment: Canc elled via OM: MD Ordered Performed By: #### L 500.2500, L100.0500 ####[facility] [address] [place], [address] PLT Normal 150-450 [facility] Comment on above: Result Comment: Canc elled via OM: MD Ordered Performed By: #### L 500.2500, L100.0500 ####[facility] [address] [place], [address] RBC Normal 4.6-6.2 [facility] Comment on above: Result Comment: Canc elled via OM: MD Ordered Performed By: #### L 500.2500, L100.0500 ####[facility] [address] [place], [address] RDW CV Normal 11.6-14.6 [facility] Comment on above: Result Comment: Canc elled via OM: MD Ordered Performed By: #### L 500.2500, L100.0500 ####[facility] [address] [place], [address] RDW SD Normal 35.1-43.9 [facility] Comment on above: Result Comment: Canc elled via OM: MD Ordered Performed By: #### L 500.2500, L100.0500 ####[facility] [address] [place], [address] WBC Normal 4.4-11.0 [facility] Comment on above: Result Comment: Canc elled via OM: MD Ordered Performed By: #### L 500.2500, L100.0500 ####[facility] [address] [place], [address] Activated partial thrombopla stin time (aPTT) in platelet poor plasma by coagulation aOrdered By: Claire Mazariegos on 12-09-2024 aPTT Coag (PPP) [Time] 28.0 s 24.1-36.2 [facility] BRCon 12-09-2024 RC Normal [facility] Comment on above: Result Comment: [id number] OP RC READY Performed By: #### B CHICA, BR ####[facility] [address] [place], [address] Basic Metabolic Profile (BMP )on 12-09-2024 BUN/CRE 10.9 RATIO Normal 10-20 [facility] Comment on above: Performed By: #### L 100.0500, L501.5200, L500.2500 ####[facility] [address] [place], [address] Calcium [Mass/Vol] 10.7 mg/dL Normal 7.6-11.0 [facility] Comment on above: Performed By: #### L 100.0500, L501.5200, L500.2500 ####[facility] [address] [place], [address] Chloride [Moles/Vol] 98 mmol/L Normal 98-108 [facility] Comment on above: Performed By: #### L 100.0500, L501.5200, L500.2500 ####[facility] [address] [place], [address] CO2 [Moles/Vol] 23.9 mmol/L Normal 21.0-32.0 [facility] Comment on above: Performed By: #### L 100.0500, L501.5200, L500.2500 ####[facility] [address] [place], [address] Creatinine [Mass/Vol] 4.94 mg/dL High 0.70-1.20 [facility] Comment on above: Performed By: #### L 100.0500, L501.5200, L500.2500 ####[facility] [address] [place], [address] ECRCL 12.22 ml/min Low 50-250 [facility] Comment on above: Performed By: #### L 100.0500, L501.5200, L500.2500 ####[facility] [address] [place], [address] GAP 12 Normal 5-15 [facility] Comment on above: Performed By: #### L 100.0500, L501.5200, L500.2500 ####[facility] [address] [place], [address] GFR/1.73 sq M.predicted among non-blacks MDRD (S/P/Bld) [Vol rate/Area] 11 mL/min/{1.73_m2} Low >60 [facility] Comment on above: Result Comment: mL/m in/1.73m2 CKD-EPI Creatinine Equation (2020) Performed By: #### L 100.0500, L501.5200, L500.2500 ####[facility] [address] [place], [address] Glucose [Mass/Vol] 96 mg/dL Normal 70-99 [facility] Comment on above: Performed By: #### L 100.0500, L501.5200, L500.2500 ####[facility] [address] [place], [address] Potassium [Moles/Vol] 3.8 mmol/L Normal 3.3-5.1 [facility] Comment on above: Performed By: #### L 100.0500, L501.5200, L500.2500 ####[facility] [address] [place], [address] Sodium [Moles/Vol] 134 mmol/L Normal 133-145 [facility] Comment on above: Performed By: #### L 100.0500, L501.5200, L500.2500 ####[facility] [address] [place], [address] Urea nitrogen [Mass/Vol] 54 mg/dL High 4-19 [facility] Comment on above: Performed By: #### L 100.0500, L501.5200, L500.2500 ####[facility] [address] [place], [address] Bedside Glucoseon 12-09-2024 FINGERSTICK GLU 206 mg/dL High 74-106 [facility] Comment on above: Result Comment: ANA PAREKR OF PATIENT CARE PER NURSING PROTOCOL Performed By: #### L 501.080 ####[facility] [address] [place], [address] FINGERSTICK GLU 100 mg/dL Normal 74-106 [facility] Comment on above: Result Comment: ANA GEMENT OF PATIENT CARE PER NURSING PROTOCOL Performed By: #### L 501.080 ####[facility] [address] [place], [address] FINGERSTICK GLU 84 mg/dL Normal 74-106 [facility] Comment on above: Result Comment: ANA GEMENT OF PATIENT CARE PER NURSING PROTOCOL Performed By: #### L 501.080 ####[facility] [address] [place], [address] FINGERSTICK GLU 94 mg/dL Normal 74-106 [facility] Comment on above: Result Comment: ANA GEMENT OF PATIENT CARE PER NURSING PROTOCOL Performed By: #### L 501.080 ####[facility] [address] [place], [address] Biopsy/Inj or Needle Placeme nton 12-09-2024 Biopsy/Inj or Needle Placement Normal [facility] CBC W/Diff, Automatedon - 0-2024 Absolute Lymph 1.05 X10 3/uL Normal 0.83-4.51 [facility] Comment on above: Order Comment: Comme nts: need the diff part for bone marrow bx today! Performed By: #### L 100.0100, L300.3900, L300.4310 ####[facility] [address] [place], [address] Absolute Neut 4.0 X10 3/uL Normal 2.0-7.7 [facility] Comment on above: Order Comment: Comme nts: need the diff part for bone marrow bx today! Performed By: #### L 100.0100, L300.3900, L300.4310 ####[facility] [address] [place], [address] Basophils/100 WBC (Bld) 0.2 % Normal 0-1 [facility] Comment on above: Order Comment: Dorys nts: need the diff part for bone marrow bx today! Performed By: #### L 100.0100, L300.3900, L300.4310 ####[facility] [address] [place], [address] Eosinophils/100 WBC (Bld) 1.0 % Normal 0-5 [facility] Comment on above: Order Comment: Commreinaldo nts: need the diff part for bone marrow bx today! Performed By: #### L 100.0100, L300.3900, L300.4310 ####[facility] [address] [place], [address] Erythrocyte distribution width (RBC) [Ratio] 12.1 % Normal 11.6-14.6 [facility] Comment on above: Order Comment: Dorys nts: need the diff part for bone marrow bx today! Performed By: #### L 100.0100, L300.3900, L300.4310 ####[facility] [address] [place], [address] Hematocrit (Bld) [Volume fraction] 23.6 % Low 40-54 [facility] Comment on above: Order Comment: Dorys nts: need the diff part for bone marrow bx today! Performed By: #### L 100.0100, L300.3900, L300.4310 ####[facility] [address] [place], [address] Hemoglobin (Bld) [Mass/Vol] 8.2 g/dL Low 13.0-16.5 [facility] Comment on above: Order Comment: Dorys nts: need the diff part for bone marrow bx today! Performed By: #### L 100.0100, L300.3900, L300.4310 ####[facility] [address] [place], [address] IG% 0.300 Normal 0.0-0.9 [facility] Comment on above: Order Comment: Comme nts: need the diff part for bone marrow bx today! Result Comment: IG% - Immature Granulocytes (promyelocytes, myelocytes andmetamyelocytes) > 1% indicates that a LEFT SHIFT is Present. Performed By: #### L 100.0100, L300.3900, L300.4310 ####[facility] [address] [place], [address] Lymphocytes/100 WBC (Bld) 18.0 % Low 19-41 [facility] Comment on above: Order Comment: Comme nts: need the diff part for bone marrow bx today! Performed By: #### L 100.0100, L300.3900, L300.4310 ####[facility] [address] [place], [address] MCH (RBC) [Entitic mass] 36.3 pg High 27.0-32.0 [facility] Comment on above: Order Comment: Comme nts: need the diff part for bone marrow bx today! Performed By: #### L 100.0100, L300.3900, L300.4310 ####[facility] [address] [place], [address] MCHC (RBC) [Mass/Vol] 34.7 g/dL Normal 32-36 [facility] Comment on above: Order Comment: Comme nts: need the diff part for bone marrow bx today! Performed By: #### L 100.0100, L300.3900, L300.4310 ####[facility] [address] [place], [address] MCV (RBC) [Entitic vol] 104.4 fL High 80-94 [facility] Comment on above: Order Comment: Comme nts: need the diff part for bone marrow bx today! Performed By: #### L 100.0100, L300.3900, L300.4310 ####[facility] [address] [place], [address] Monocytes/100 WBC (Bld) 12.5 % High 0-10 [facility] Comment on above: Order Comment: Dorys nts: need the diff part for bone marrow bx today! Performed By: #### L 100.0100, L300.3900, L300.4310 ####[facility] [address] [place], [address] Neutrophils/100 WBC (Bld) 68.0 % Normal 47-70 [facility] Comment on above: Order Comment: Dorys nts: need the diff part for bone marrow bx today! Performed By: #### L 100.0100, L300.3900, L300.4310 ####[facility] [address] [place], [address] Nucleated RBC (Bld) [#/Vol] 0 10*3/uL Normal 0-5 [facility] Comment on above: Order Comment: Dorys nts: need the diff part for bone marrow bx today! Performed By: #### L 100.0100, L300.3900, L300.4310 ####[facility] [address] [place], [address] Platelet mean volume (Bld) [Entitic vol] 9.9 fL Normal 6.2-12.0 [facility] Comment on above: Order Comment: Dorys nts: need the diff part for bone marrow bx today! Performed By: #### L 100.0100, L300.3900, L300.4310 ####[facility] [address] [place], [address] Platelets (Bld) [#/Vol] 149 10*3/uL Low 150-450 [facility] Comment on above: Order Comment: Dorys nts: need the diff part for bone marrow bx today! Performed By: #### L 100.0100, L300.3900, L300.4310 ####[facility] [address] [place], [address] RBC (Bld) [#/Vol] 2.26 10*6/uL Low 4.6-6.2 [facility] Comment on above: Order Comment: Comme nts: need the diff part for bone marrow bx today! Performed By: #### L 100.0100, L300.3900, L300.4310 ####[facility] [address] [place], [address] RDW SD 46.1 fl High 35.1-43.9 [facility] Comment on above: Order Comment: Comme nts: need the diff part for bone marrow bx today! Performed By: #### L 100.0100, L300.3900, L300.4310 ####[facility] [address] [place], [address] WBC (Bld) [#/Vol] 5.8 10*3/uL Normal 4.4-11.0 [facility] Comment on above: Order Comment: Comme nts: need the diff part for bone marrow bx today! Performed By: #### L 100.0100, L300.3900, L300.4310 ####[facility] [address] [place], [address] CBC-Complete Blood Cnt No Di ffon 12-09-2024 Erythrocyte distribution width (RBC) [Ratio] 12.1 % Normal 11.6-14.6 [facility] Comment on above: Performed By: #### L 100.0500, L501.5200, L500.2500 ####[facility] [address] [place], [address] Hematocrit (Bld) [Volume fraction] 20.0 % Low 40-54 [facility] Comment on above: Performed By: #### L 100.0500, L501.5200, L500.2500 ####[facility] [address] [place], [address] Hemoglobin (Bld) [Mass/Vol] 6.9 g/dL Low 13.0-16.5 [facility] Comment on above: Performed By: #### L 100.0500, L501.5200, L500.2500 ####[facility] [address] [place], [address] MCH (RBC) [Entitic mass] 36.1 pg High 27.0-32.0 [facility] Comment on above: Performed By: #### L 100.0500, L501.5200, L500.2500 ####[facility] [address] [place], [address] MCHC (RBC) [Mass/Vol] 34.5 g/dL Normal 32-36 [facility] Comment on above: Performed By: #### L 100.0500, L501.5200, L500.2500 ####[facility] [address] [place], [address] MCV (RBC) [Entitic vol] 104.7 fL High 80-94 [facility] Comment on above: Performed By: #### L 100.0500, L501.5200, L500.2500 ####[facility] [address] [place], [address] Platelet mean volume (Bld) [Entitic vol] 10.1 fL Normal 6.2-12.0 [facility] Comment on above: Performed By: #### L 100.0500, L501.5200, L500.2500 ####[facility] [address] [place], [address] Platelets (Bld) [#/Vol] 126 10*3/uL Low 150-450 [facility] Comment on above: Performed By: #### L 100.0500, L501.5200, L500.2500 ####[facility] [address] [place], [address] RBC (Bld) [#/Vol] 1.91 10*6/uL Low 4.6-6.2 [facility] Comment on above: Performed By: #### L 100.0500, L501.5200, L500.2500 ####[facility] [address] [place], [address] RDW SD 46.1 fl High 35.1-43.9 [facility] Comment on above: Performed By: #### L 100.0500, L501.5200, L500.2500 ####[facility] [address] [place], [address] WBC (Bld) [#/Vol] 5.0 10*3/uL Normal 4.4-11.0 [facility] Comment on above: Performed By: #### L 100.0500, L501.5200, L500.2500 ####[facility] [address] [place], [address] CYTOGENETIC STUDIES (PERFORM ABLE)on 12-09-2024 Clinical History Monoclonal Gammopathy Normal [facility] Comment on above: Order Comment: Pieter najera do not use this order for add-ons Place sample for CYTOGENETICS in Sodium (NA) heparin tube. Performed By: #### Chanel MEEKS, [id number] #### JORGE LUIS [facility] (DEFAULT) [address] [address] Interpretation Normal [facility] Comment on above: Order Comment: Pieter najera do not use this order for add-ons Place sample for CYTOGENETICS in Sodium (NA) heparin tube. Result Comment: Ther e was insufficient sample to perform both cytogenetic analysis and FISH analysis; therefore, the cytogenetic analysis was not performed. FISH analysis on this sample is pending and will be reported subsequently. Performed By: #### Chanel MEEKS, [id number] #### [facility] (DEFAULT) [address] [address] Karyotype Not performed Normal [facility] Comment on above: Order Comment: Pieter najera do not use this order for add-ons Place sample for CYTOGENETICS in Sodium (NA) heparin tube. Performed By: #### C JEANNA, [id number] #### [facility] (DEFAULT) [address] [place] [address] Specimen Received Bone Marrow Aspirate obtained 12/09/24 Normal [facility] Comment on above: Order Comment: Pieter najera do not use this order for add-ons Place sample for CYTOGENETICS in Sodium (NA) heparin tube. Performed By: #### C YTCHAPARRITA, [id number] #### [facility] (DEFAULT) [address] [place] [address] Echocardiogram study reportO rdered By: Vamsi Sams on 12-09-2024 Study report [facility] Work Phone: FISH STUDIESon 12-09-2024 Culture Method Normal [facility] Comment on above: Order Comment: Pieter najera do not use this order for add-ons Place sample for CYTOGENETICS in Sodium (NA) heparin tube. Result Comment: Proc ess: 1 Duration: Magnetic Separation Media: RPMI Mitogen: None Banding: FISH Colcemid: None Interphases analyzed: Probe Number of Interphases Probe Type Vendor CDKN2C 200 locus - specific [employer] CKS1B 200 locus - specific [employer] D7Z1 200 centromere [employer] D9Z4 200 centromere [employer] D15Z4 200 centromere [employer] YAHAIRA 200 locus - specific [employer] TP53 200 locus - specific [employer] RB1 200 locus - specific [employer] LAMP1 200 locus - specific [employer] IGH-CCND1 200 dual-color, dual fusion [employer] IGH 200 Break apart [employer] METHOD: Fluorescence in situ hybridization (FISH) was performed by applying DNA probes to interphase (non-dividing) nuclei isolated from peripheral blood/bone marrow. These are specific DNA probes that detect a number of commonly observed aberrations in hematologic malignancies. This test was developed and its performance characteristics determined by the [facility] at [facility]. It has not been cleared or approved by the FDA. The laboratory is regulated under CLIA as qualified to perform high-complexity testing. This test is used for clinical purposes. It should not be regarded as investigational or for research. Pursuant to the requirements of CLIA'88, this laboratory has established and verified the test's accuracy and precision. Performed By: #### Chanel MEEKS [id number] #### JORGE LUIS [facility] (DEFAULT) [address] [address] FISH Interpretation Normal [facility] Comment on above: Order Comment: Pieter najera do not use this order for add-ons Place sample for CYTOGENETICS in Sodium (NA) heparin tube. Result Comment: FISH analyses with probes localizing to the loci listed above were performed on a CD138 magnetically-enriched sample. The results were positive for an abnormal IGH/CCND1 fusion signal pattern in a low percentage (5.5%) of the nuclei examined, consistent with an IGH::CCND1 rearrangement. This is consistent with the 4.0% of the nuclei positive for loss of one 5'IGH signal. Additionally, a higher proportion of nuclei showed gains of 9 centromere, 11q, and 15 centromere, indicating a hyperdiploid sample. Loss of 11q was also noted. All other probes listed above showed normal signal numbers within the limits of the analyses. Reference: WHO Classification of Tumours Editorial Board. Haematolymphoid tumours. Dukes (Anel): International Agency for Research on Cancer; 2023. (WHO classification of tumours series, 5th ed.; vol. 11). Performed By: #### Chanel MEEKS [id number] #### JORGE LUIS [facility] (DEFAULT) [address] [address] FISH Report Normal [facility] Comment on above: Order Comment: Pieter najera do not use this order for add-ons Place sample for CYTOGENETICS in Sodium (NA) heparin tube. Result Comment: MYEL YESICA Results Probe Interpretation Patient% Signal/[place] Range 1p32.3 (CDKN2C) negative 0.5 1 signal/ 5.8% 1q21.3 (CKS1B) negative 0 3 signals/ 3.5% 7p11.1-q11.1 (D7Z1) negative 1.0 3 signals/ 2.1% 3r16-m36 (D9Z4) POSITIVE FOR 3 SIGNALS 54.0 3 signals/ 2.2% 15p11.1-q11.1 (D15Z4) POSITIVE FOR 3 SIGNALS 53.0 3 signals/ 2.2% 11q22.3 (YAHAIRA) POSITIVE FOR 3 & 4 SIGNALS; POSITIVE (27.5%) FOR LOSS OF 1 SIGNAL 40.0 3 signals/ 1.5% 4 signals/ 0.6% 1 signal/ 4.2% 17p13.1 (TP53) negative 0 1 signal/ 5.4% 13q14.2 (RB1) negative 1.0 1 signal/ 4.3% 13q34 (LAMP1) negative 0.5 1 signal/ 4.8% 14q32.3-11q13.3 (IGH-CCND1) LOW FUSION POSITIVE; POSITIVE (40.0%) FOR 3 CCND1 SIGNALS 5.5 dual fusion/ 0.6% 3 signals(CCND1)/ 1.4% 14q32.3 (IGH) LOW POSITIVE FOR LOSS OF ONE 5'IGH SIGNAL 4.0 bap/ 7.4% 1 signal(5'IGH)/ 0.6% nuc jonathon (CDKN2C,CKS1B)x2[200],(D7Z1)x2[200],(D9Z4)x3[108/200],(RSKY0k9 ,IGHx2)[94/200]/(IBYZ4y2,IGHx2)(CCND1 con IGH)x1[11/200],(ATMx3,TP53x2)[76/200]/(ATMx1,TP53x2)[55/200]/( ATMx4,TP53x2)[4/200],(RB1,LAMP1)x2[200],(3'IGHx2,5'IGHx1)(3'IG H con 5'IGH)x1[8/200],(D15Z4)x3[106/200] Performed By: #### C YTOGP, [id number] #### U [facility] (DEFAULT) [address] [place] [address] IMMUNOPHENOTYPINGon 12-10-19 25 BKR DX CODE Use Ordering Normal [facility] Comment on above: Performed By: #### I MMUNOPHENOTYPING #### [facility] (DEFAULT) [address] [place] [address] Flow Interpreted by: Medardo Mejía MD Normal [facility] Comment on above: Performed By: #### I MMUNOPHENOTYPING #### U [facility] (DEFAULT) [address] [place] [address] IMMUNOPHENOTYPING FLOW See Scanned Result Normal [facility] Comment on above: Performed By: #### I MMUNOPHENOTYPING #### U [facility] (DEFAULT) [address] [place] [address] SAMPLE TYPE Bone Marrow Normal [facility] Comment on above: Performed By: #### I MMUNOPHENOTYPING #### [facility] (DEFAULT) [address] [place] [address] L350.1815on 12-09-2024 Path [facility] SEE PATHOLOGY REPORT Normal [facility] Comment on above: Order Comment: RESUL TS FAXED TO DR KING 12/13/24 1108 Jay Méndez. Result Comment: Spec imen sent to [facility]ology [facility].Report available in EMR. Performed By: #### L 350.1815 ####[facility] [address] [place], [address] Magnesiumon 12-09-2024 Magnesium [Mass/Vol] 2.6 mg/dL High 1.5-2.2 [facility] Comment on above: Performed By: #### L 100.0500, L501.5200, L500.2500 ####[facility] [address] [place], [address] Magnesium measurement (mass/ volume)Ordered By: Claire Mazariegos on 12-09-2024 Magnesium (Unsp spec) [Mass/Vol] 2.6 mg/dL High 1.5-2.2 [facility] Natriuretic peptide.B prohor nicki N-Terminal [Mass/volume] in Serum or PlasmaOrdered By: Claire Mazariegos on 12-09-2024 Natriuretic peptide.B prohormone N-Terminal [Mass/Vol] 07094 pg/mL High <1800 [facility] Partial Thromboplast Timeon 12-09-2024 aPTT Coag (Bld) [Time] 28.0 s Normal 24.1-36.2 [facility] Comment on above: Performed By: #### L 100.0100, L300.3900, L300.4310 ####[facility] [address] [place], [address] Pro- Brain NATRIURETIC PEPTI Irish 12-09-2024 Natriuretic peptide B (Bld) [Mass/Vol] 25836 pg/mL High <=1800 [facility] Comment on above: Result Comment: Hear t Failure Unlikely: < 300 pg/mLHeart Failure Likely< 50 Years: > 450 pg/mL50-75 Years: > 900 pg/mL>75 Years: > 1800 pg/mL Performed By: #### L 503.8570 ####[facility] [address] [place], [address] Prothrombin Time w/INRon INR Coag (PPP) [Relative time] 1.2 {INR} Normal [facility] Comment on above: Performed By: #### L 100.0100, L300.3900, L300.4310 ####[facility] [address] [place], [address] PT Coag (PPP) [Time] 15.0 s High 11.7-14.9 [facility] Comment on above: Performed By: #### L 100.0100, L300.3900, L300.4310 ####[facility] [address] [place], [address] Prothrombin timeOrdered By: Claire Mazariegos on 12-09-2024 PT Coag (PPP) [Time] 15.0 s High 11.7-14.9 [facility] Quantitative serum viscosity measurementOrdered By: Claire Mazariegos on 12-09-2024 Viscosity (S) [Visc] 2.4 rel.saline High 1.4-2.1 [facility] Retic Panelon 12-09-2024 IM RET FRACTION 8.90 Normal 3.00-15.90 [facility] Comment on above: Order Comment: H19 Performed By: #### L 100.9950 ####[facility] [address] [place], [address] RET-HE 39.1 pg High 30-35 [facility] Comment on above: Order Comment: H19 Performed By: #### L 100.9950 ####[facility] [address] [place], [address] Retic Count 0.76 Normal 0.5-1.5 [facility] Comment on above: Order Comment: H19 Performed By: #### L 100.9950 ####[facility] [address] [place], [address] SURG PATH REQUESTon 12-10-19 Addendum Normal [facility] Comment on above: Result Comment: This is an addendum to report IHC stains for CD3, CD20, CD138 (core and clot section), and JONATHON for kappa and lambda as well as Congo red staining that was performed on both core biopsy and clot section to evaluate this specimen for amyloidosis. CD138 stain highlights increased plasma cells that represent approximately 70-80% of all nucleated cells. Plasma cells are negative for CD20 and are lambda light chain restricted as indicated by kappa and lambda JONATHON with estimated K:L ratio of 1:100. Mildly increased scattered CD3 positive small T lymphocytes are present. Rare scattered CD20 positive B cells are present. There is no evidence of discrete lymphoid aggregates Congo red stain is negative c/w specimen negative for amyloidosis. These results support the original diagnosis. Immunohistochemical stains were performed on block A1 in addition to flow cytometry on specimen A to further characterize the plasma cells in the context of cell morphology and tissue architecture, since discrepancy between flow cytometric analysis and morphology can occur due to sampling bias, preferential loss of targeted cells, or hemodilution. All controls show appropriate reactivity. All immunohistochemistry (IHC), in situ hybridization (JONATHON), and histochemical tests were developed by and are performed at the [facility], Histology and IHC Lab, [address] [place] [address]. All Immunofluorescent (IF) tests were developed by and are performed at the [facility], Renal Division, [address] [place] [address]. All tests reported here, except for PD-L1, have not been cleared by or approved by the US Food and Drug Administration (FDA). The laboratory is regulated under CLIA as qualified to perform high-complexity testing. The tests are used for clinical purposes. They should not be regarded as investigational or for research. The histochemical tests reported here were performed at the the [facility], [address] [place] [address]. Addendum electronically signed by Medardo Mejía MD on 12/15/2024 at 0906 EDT Performed By: #### S URGP #### [facility] (DEFAULT) [address] [place] [address] Case Report Normal [facility] Comment on above: Result Comment: Surg ical Pathology Report Case: [id number] Authorizing Provider: ADILSON [facility] Collected: 12/09/2024 01:00 PM Ordering Location: [facility] Received: 12/12/2024 09:37 AM LEBEAU Pathologist: Medardo Mejía MD Specimens: A) - SURG PATH, core B) - SURG PATH, clot Performed By: #### S URGP #### [facility] (DEFAULT) [address] [place] [address] Clinical History Suspect myeloma [D47 .2]. Monoclonal gammopathy. 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 Bone marrow is variably cellular and shows preserved trilineage hematopoietic reserves. Correlation with clinical, laboratory and radiology data is recommended. *IHC/JONATHON and Congo red stains are in progress to further characterize this specimen and the results of these stains will be reported as an addendum. Immunohistochemical stains were performed on block A1 in addition to flow cytometry on specimen A to further characterize the plasma cells in the context of cell morphology and tissue architecture, since discrepancy between flow cytometric analysis and morphology can occur due to sampling bias, preferential loss of targeted cells, or hemodilution. All controls show appropriate reactivity. All immunohistochemistry (IHC), in situ hybridization (JONATHON), and histochemical tests were developed by and are performed at the [facility], Histology and IHC Lab, [address] [place] [address]. All Immunofluorescent (IF) tests were developed by and are performed at the [facility], Renal Division, [address] [place] [address]. All tests reported here, except for PD-L1, have not been cleared by or approved by the US Food and Drug Administration (FDA). The laboratory is regulated under CLIA as qualified to perform high-complexity testing. The tests are used for clinical purposes. They should not be regarded as investigational or for research. The histochemical tests reported here were performed at the the [facility], [address] [place] [address]. Performed By: #### S URGP #### [facility] (DEFAULT) [address] [place] [address] Gross Description Normal [facility] Comment on above: Result Comment: The specimen is received in two properly labeled containers with the patient's name and accession number. A. The specimen is designated R 11g bone marrow biopsy and aspiration and consists of one core of hansen-brown semi-firm bone that is 0.7 cm in length and 0.3 cm in diameter. The core is attached to a 0.4 x 0.3 x 0.3 cm aggregate of clotted blood. TE 1 Note: Cassette A1 will be ready after short decalcification. B. The specimen is designated R iliac bone bx and consists of a 2.0 x 1.5 x 0.5 cm aggregate of dark red clotted blood. TE 1 Lab Use Only: JobID [id number] Jeramieer for this case was: Tanika Fam Performed By: #### S URGP #### [facility] (DEFAULT) [address] [place] [address] Microscopic Description Normal [facility] Comment on above: Result Comment: A mi croscopic examination was performed. BONE MARROW REPORT The following specimens were interpreted to arrive at the above diagnosis: bone marrow aspirate, decalcified trephine biopsy, iron stain and clot section CBC data and smear review (200 cells): per report 12.09.24 WBC: 5.8 x K/uL; Hgb: 8..2 g/dL; Hct: 23.6%; MCV: 104.4 fl; RDW: 12.1%; Plt: 149 K/uL Reported electronic differential: bands 0%, neutrophils 68%, lymphocytes 18%, monocytes 12.5%, eosinophils 1%, basophils 0.2%, Blood smear findings: No blood smear is provided for review. Aspirate smear quality: The aspirates are spicular and cellular. The staining is adequate. Bone marrow aspirate smear and/or touch preparation differential (500 cells): Blasts: 0% Promyelocytes: 1% Myelocytes: 6% Metamyelocytes: 4% Bands/Neutrophils: 19% Lymphocytes: 8% Monocytes: 3% Eosinophils: 3% Basophils: 0% Erythroid precursors: 12% Plasma cells: 44% M:E Ratio: The myeloid to erythroid ratio is 2.3 Erythropoiesis: Proportionally decreased. Predominantly normoblastic maturation. No significant dysplasia. Granulopoiesis: Proportionally decreased. Progression to mature forms is noted. Blasts are not increased, and significant dysplasia is not evident. Megakaryocytes: Megakaryocytes are decreased and show unremarkable morphology. Lymphocytes/plasma cells: Plasma cells are increased and range in size from small to large. Occasional forms with prominent nucleoli are seen. Lymphocytes are unremarkable. *IHC and JONATHON stains are in progress to further characterize this specimen and the results of these stains will be reported as an addendum. Iron stain: Iron staining is adequate. Ring sideroblasts are not identified. The iron control shows appropriate reactivity. Biopsy and clot findings: The biopsy is adequate for evaluation. The bone marrow shows a variable cellularity of 20-60%. *Congo red stain on core biopsy and clot section material is in progress to evaluate this specimen for amyloidosis. The results of these stains will be reported as an addendum. Flow cytometric analysis (marrow aspirate): See separate report. 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 The plasma cells aberrantly express CD28, CD38, CD56, CD81 (dim) and CD138. Plasma cells are negative for CD19, CD20, CD27 and CD117. There is no evidence of an abnormal population of blasts B-cells or T-cells. The CD4:CD8 ratio is normal. Cytogenetics/FISH and Molecular Studies: Performed and resulted in a separate report. *The above report complies, in slightly modified form, with the guidelines of the [employer] for the reporting of cancer specimens. *Hematopoietic neoplasms are classified according to: - WHO Classification of Tumours Editorial Board. Haematolymphoid tumours. Dukes (Anel): International Agency for Research on Cancer; (WHO classification of tumours series, 5th ed.; vol. 11, 2021). https://publications.iarc.fr. - The International Consensus Classification of Mature Lymphoid Neoplasms: a report from the Clinical Advisory Committee. Blood. 2021Nov 14;140(11):0346-2653. doi: 10.1182/blood.4735624259. Erratum in: Blood. 2022Mar 27;141(4):437. PMID: 59044311; PMCID: XED2333091. -International Consensus Classification of Myeloid Neoplasms and Acute Leukemias: integrating morphologic, clinical, and genomic data. Blood. 2021Nov 14;140(11):7958-5699. doi: 10.1182/blood.6811365337. PMID: 90318567; PMCID: HGA9734336. All controls show appropriate reactivity. All immunohistochemistry (IHC), in situ hybridization (JONATHON), and histochemical tests were developed by and are performed at the [facility], Histology and IHC Lab, [address] [place] [address], [place] [address]. All Immunofluorescent (IF) tests were developed by and are performed at the [facility], Renal Division, [address] [place] [address]. All tests reported here, except for PD-L1, have not been cleared by or approved by the US Food and Drug Administration (FDA). The laboratory is regulated under CLIA as qualified to perform high-complexity testing. The tests are used for clinical purposes. They should not be regarded as investigational or for research. Performed By: #### S URGP #### [facility] (DEFAULT) [address] [place] [address] Pathologic Diagnosis Normal [facility] Comment on above: Result Comment: A. 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 Adequate stainable iron without ring sideroblasts. B. 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 at 0827 EDT Performed By: #### S URGP #### [facility] (DEFAULT) [address] [place] [address] Professional Interpretation Performed at: [facility] Comment on above: Result Comment: [facility] For Immediate Release [facility] Yes [address] [place] [address] Performed By: #### S URGP #### [facility] (DEFAULT) [address] [place] [address] Type AND Screenon 12-09-2024 ABO and Rh group Nom (Bld) Blood group O Rh(D) positive Normal [facility] Comment on above: Order Comment: CMV N EG? NNumber of units to transfuse: 1Is pt's Hgb is = to 7.0 mg/dl or Hct </= 21%? YReason for Ordering Blood: ChronicAre the blood/blood products to be transfused? YIs the patient having/had surgery? Ever Jack Performed By: #### B ORESTES COTO ####[facility] [address] [facility] [place], [place], [address] Assessment of wrist artery p atency prior to arterial punctureOrdered By: Claire Mazariegos on 12-08-2024 Arterial patency Wrist artery --pre arterial puncture Positive [facility] Basic Metabolic Profile (BMP )on 12-08-2024 BUN/CRE 11.5 RATIO Normal 10-20 [facility] Comment on above: Performed By: #### L 500.2500, L100.0500 ####[facility] [address] [place], [address] Calcium [Mass/Vol] 10.5 mg/dL Normal 7.6-11.0 [facility] Comment on above: Performed By: #### L 500.2500, L100.0500 ####[facility] [address] [place], [address] Chloride [Moles/Vol] 98 mmol/L Normal 98-108 [facility] Comment on above: Performed By: #### L 500.2500, L100.0500 ####[facility] [address] [place], [address] CO2 [Moles/Vol] 21.1 mmol/L Normal 21.0-32.0 [facility] Comment on above: Performed By: #### L 500.2500, L100.0500 ####[facility] [address] [place], [address] Creatinine [Mass/Vol] 6.19 mg/dL High 0.70-1.20 [facility] Comment on above: Performed By: #### L 500.2500, L100.0500 ####[facility] [address] [place], [address] ECRCL 9.75 ml/min Invalid Interpretation Code 50-250 [facility] Comment on above: Performed By: #### L 500.2500, L100.0500 ####[facility] [address] [place], [address] GAP 13 Normal 5-15 [facility] Comment on above: Performed By: #### L 500.2500, L100.0500 ####[facility] [address] [place], [address] GFR/1.73 sq M.predicted among non-blacks MDRD (S/P/Bld) [Vol rate/Area] 8 mL/min/{1.73_m2} Low >60 [facility] Comment on above: Result Comment: mL/m in/1.73m2 CKD-EPI Creatinine Equation (2020) Performed By: #### L 500.2500, L100.0500 ####[facility] [address] [place], [address] Glucose [Mass/Vol] 125 mg/dL High 70-99 [facility] Comment on above: Performed By: #### L 500.2500, L100.0500 ####[facility] [address] [place], [address] Potassium [Moles/Vol] 4.1 mmol/L Normal 3.3-5.1 [facility] Comment on above: Performed By: #### L 500.2500, L100.0500 ####[facility] [address] [place], [address] Sodium [Moles/Vol] 132 mmol/L Low 133-145 [facility] Comment on above: Performed By: #### L 500.2500, L100.0500 ####[facility] [address] [place], [address] Urea nitrogen [Mass/Vol] 71 mg/dL High 4-19 [facility] Comment on above: Performed By: #### L 500.2500, L100.0500 ####[facility] [address] [place], [address] Bedside Glucoseon 12-08-2024 FINGERSTICK GLU 121 mg/dL High 74-106 [facility] Comment on above: Result Comment: ANA PARKER OF PATIENT CARE PER NURSING PROTOCOL Performed By: #### L 501.080 ####[facility] [address] [place], [address] FINGERSTICK GLU 110 mg/dL High 74-106 [facility] Comment on above: Result Comment: ANA GEMENT OF PATIENT CARE PER NURSING PROTOCOL Performed By: #### L 501.080 ####[facility] [address] [place], [address] FINGERSTICK GLU 96 mg/dL Normal 74-106 [facility] Comment on above: Result Comment: ANA GEMENT OF PATIENT CARE PER NURSING PROTOCOL Performed By: #### L 501.080 ####[facility] [address] [place], [address] FINGERSTICK GLU 124 mg/dL High 74-106 [facility] Comment on above: Result Comment: ANA GEMENT OF PATIENT CARE PER NURSING PROTOCOL Performed By: #### L 501.080 ####[facility] [address] [place], [address] Blood Gases by [facility] 025 RACHAEL TEST Positive Normal [facility] Comment on above: Performed By: #### L 9000.0800 ####[facility] [address] [place], [address] Base excess Calc (Bld) [Moles/Vol] 1 mmol/L Normal -2 to +2 [facility] Comment on above: Performed By: #### L 9000.0800 ####[facility] [address] [place], [address] Blood Gas Type ART Normal [facility] Comment on above: Performed By: #### L 9000.0800 ####[facility] [address] [place], [address] CO2 [Moles/Vol] 25 mmol/L Normal [facility] Comment on above: Performed By: #### L 9000.0800 ####[facility] [address] [place], [address] FI02 9.0 Normal [facility] Comment on above: Performed By: #### L 9000.0800 ####[facility] [address] [place], [address] HCO3 (Bld) [Moles/Vol] 23.6 mmol/L Normal 22-26 [facility] Comment on above: Performed By: #### L 9000.0800 ####[facility] [address] [place], [address] Mode Not entered Normal [facility] Comment on above: Performed By: #### L 9000.0800 ####[facility] [address] [place], [address] O2 Delivery Dev HFNC Normal [facility] Comment on above: Performed By: #### L 9000.0800 ####[facility] [address] [place], [address] pCO2 29.6 mmHg Low 35-45 [facility] Comment on above: Performed By: #### L 9000.0800 ####[facility] [address] [place], [address] pH (Bld) 7.51 [pH] High 7.35-7.45 [facility] Comment on above: Performed By: #### L 9000.0800 ####[facility] [address] [place], [address] PO2 57 mmHG Low 75-100 [facility] Comment on above: Performed By: #### L 9000.0800 ####[facility] [address] [place], [place], [address] SITE R Radial Normal [facility] Comment on above: Performed By: #### L 9000.0800 ####[facility] [address] [place], [address] SO2 92 Low 95-99 [facility] Comment on above: Performed By: #### L 9000.0800 ####[facility] [address] [place], [address] Blood base excess determinat ionOrdered By: Claire Mazariegos on 12-08-2024 Base excess Calc (BldV) [Moles/Vol] 1 mmol/L -2-2 [facility] Blood bicarbonate measuremen tOrdered By: Claire Mazariegos on 12-08-2024 HCO3 (Bld) [Moles/Vol] 23.6 mmol/L 22-26 [facility] Bone Survey Comp(Axial Appen d)on 12-08-2024 Bone Survey Comp(Axial Append) Normal [facility] CBC-Complete Blood Cnt No Di ffon 12-08-2024 Erythrocyte distribution width (RBC) [Ratio] 12.0 % Normal 11.6-14.6 [facility] Comment on above: Performed By: #### L 500.2500, L100.0500 ####[facility] [address] [place], [address] Hematocrit (Bld) [Volume fraction] 20.4 % Low 40-54 [facility] Comment on above: Performed By: #### L 500.2500, L100.0500 ####[facility] [address] [place], [address] Hemoglobin (Bld) [Mass/Vol] 7.2 g/dL Low 13.0-16.5 [facility] Comment on above: Performed By: #### L 500.2500, L100.0500 ####[facility] [address] [place], [address] MCH (RBC) [Entitic mass] 36.2 pg High 27.0-32.0 [facility] Comment on above: Performed By: #### L 500.2500, L100.0500 ####[facility] [address] [place], [address] MCHC (RBC) [Mass/Vol] 35.3 g/dL Normal 32-36 [facility] Comment on above: Performed By: #### L 500.2500, L100.0500 ####[facility] [address] [place], [address] MCV (RBC) [Entitic vol] 102.5 fL High 80-94 [facility] Comment on above: Performed By: #### L 500.2500, L100.0500 ####[facility] [address] [place], [address] Platelet mean volume (Bld) [Entitic vol] 10.0 fL Normal 6.2-12.0 [facility] Comment on above: Performed By: #### L 500.2500, L100.0500 ####[facility] [address] [place], [address] Platelets (Bld) [#/Vol] 110 10*3/uL Low 150-450 [facility] Comment on above: Performed By: #### L 500.2500, L100.0500 ####[facility] [address] [place], [address] RBC (Bld) [#/Vol] 1.99 10*6/uL Low 4.6-6.2 [facility] Comment on above: Performed By: #### L 500.2500, L100.0500 ####[facility] [address] [place], [address] RDW SD 44.5 fl High 35.1-43.9 [facility] Comment on above: Performed By: #### L 500.2500, L100.0500 ####[facility] [address] [place], [address] WBC (Bld) [#/Vol] 5.0 10*3/uL Normal 4.4-11.0 [facility] Comment on above: Performed By: #### L 500.2500, L100.0500 ####[facility] [address] [place], [place], [id number] Chest 1 View (Portable)on Chest 1 View (Portable) Normal [facility] Echo Completeon 12-08-2024 Echo Complete Normal [facility] Electrocardiogram reportOrde red By: Homer Grey on 12-08-2024 EKG study [facility] Work Phone: [phone] EKG study [facility] Work Phone: [phone] OMERO + Protein Elect, Serumon 12-08-2024 Albumin [Mass/Vol] 2.9 g/dL Normal 2.9-4.4 [facility] Comment on above: Performed By: #### L 501.3620, L501.7300, L3600.4000, L501.5200, L501.9520, L509.1000, L3100.3425, L506.1001, L501.2300 ####[facility] [address] [place], [place], [id number] Albumin/Globulin [Mass ratio] 0.6 {ratio} Low 0.7-1.7 [facility] Comment on above: Performed By: #### L 501.3620, L501.7300, L3600.4000, L501.5200, L501.9520, L509.1000, L3100.3425, L506.1001, L501.2300 ####[facility] [address] [place], [address] JQIWT-3-XKIA 0.3 g/dL Normal 0.0-0.4 [facility] Comment on above: Performed By: #### L 501.3620, L501.7300, L3600.4000, L501.5200, L501.9520, L509.1000, L3100.3425, L506.1001, L501.2300 ####[facility] [address] [place], [address] RHNRK-2-MKZX 0.7 g/dL Normal 0.4-1.0 [facility] Comment on above: Performed By: #### L 501.3620, L501.7300, L3600.4000, L501.5200, L501.9520, L509.1000, L3100.3425, L506.1001, L501.2300 ####[facility] [address] [place], [address] BETA GLOBULIN 3.6 g/dL High 0.7-1.3 [facility] Comment on above: Performed By: #### L 501.3620, L501.7300, L3600.4000, L501.5200, L501.9520, L509.1000, L3100.3425, L506.1001, L501.2300 ####[facility] [address] [place], [place], [phone]) GAMMA GLOBULIN 0.3 g/dL Low 0.4-1.8 [facility] Comment on above: Performed By: #### L 501.3620, L501.7300, L3600.4000, L501.5200, L501.9520, L509.1000, L3100.3425, L506.1001, L501.2300 ####[facility] [address] [place], [place], [phone]) Globulin (S) [Mass/Vol] 4.9 g/dL Abnormal 2.2-3.9 [facility] Comment on above: Performed By: #### L 501.3620, L501.7300, L3600.4000, L501.5200, L501.9520, L509.1000, L3100.3425, L506.1001, L501.2300 ####[facility] [address] [place], [address] OMERO RESULT,S Comment Abnormal . [facility] Comment on above: Result Comment: Immu nofixation shows IgA monoclonal protein with lambdalight chain specificity and monoclonal free lambda lightchains. Performed By: #### L 501.3620, L501.7300, L3600.4000, L501.5200, L501.9520, L509.1000, L3100.3425, L506.1001, L501.2300 ####[facility] [address] [place], [address] IMMUNOGLOB A QN 3265 mg/dL High 61-437 [facility] Comment on above: Result Comment: Resu lts confirmed ondilution. Performed By: #### L 501.3620, L501.7300, L3600.4000, L501.5200, L501.9520, L509.1000, L3100.3425, L506.1001, L501.2300 ####[facility] [address] [place], [address] IMMUNOGLOB G QN 326 mg/dL Low 603-1613 [facility] Comment on above: Performed By: #### L 501.3620, L501.7300, L3600.4000, L501.5200, L501.9520, L509.1000, L3100.3425, L506.1001, L501.2300 ####[facility] [address] [place], [address] IMMUNOGLOB M QN 11 mg/dL Low 15-143 [facility] Comment on above: Result Comment: Resu lt confirmed on concentration. Performed By: #### L 501.3620, L501.7300, L3600.4000, L501.5200, L501.9520, L509.1000, L3100.3425, L506.1001, L501.2300 ####[facility] [address] [place], [address] M-David Comment: Normal Not Observed [facility] Comment on above: Result Comment: MONO CLONAL IGA LAMBDA = 2.8 G/DLMONOCLONAL FREE LAMBDA LIGHT CHAINS = 0.1 G/DL Performed By: #### L 501.3620, L501.7300, L3600.4000, L501.5200, L501.9520, L509.1000, L3100.3425, L506.1001, L501.2300 ####[facility] [address] [place], [address] NOTE: Comment Normal . [facility] Comment on above: Result Comment: Prot ein electrophoresis scan will follow via computer,mail, or cutter hand delivery. Performed By: #### L 501.3620, L501.7300, L3600.4000, L501.5200, L501.9520, L509.1000, L3100.3425, L506.1001, L501.2300 ####[facility] [address] [facility] [place], [place], [id number] Protein [Mass/Vol] 7.8 g/dL Normal 6.0-8.5 [facility] Comment on above: Performed By: #### L 501.3620, L501.7300, L3600.4000, L501.5200, L501.9520, L509.1000, L3100.3425, L506.1001, L501.2300 ####[facility] [address] [facility] [place], [place], [id number] Measurement, pHOrdered By: Rubia Mazariegos on 12-08-2024 pH (Unsp spec) 7.51 [pH] High 7.35-7.45 [facility] No Panel InformationOrdered By: Claire Mazariegos on 12-08-2024 ART [facility] R Radial [facility] Not entered [facility] HFNC [facility] Reticulocyte hemoglobin equi valent (RET-He) measurementOrdered By: Adalid King on 12-08-2024 Hemoglobin (Reticulocytes) [Entitic mass] 39.1 pg High 30-35 [facility] Reticulocytes Auto (Bld) [#/ Vol]Ordered By: Adalid King on 12-08-2024 Reticulocytes/100 RBC (Bld) 0.76 % 0.5-1.5 [facility] Total carbon dioxide measure mentOrdered By: Claire Mazariegos on 12-08-2024 CO2 [Moles/Vol] 25 mmol/L [facility] 12 Lead EKGon 2024 12 Lead EKG Normal [facility] ANCAon 2024 Atypical pANCA <1:20 Normal Neg:<1:20 [facility] Comment on above: Result Comment: The atypical pANCA pattern has been observed in asignificant percentage of patients with ulcerative colitis,primary sclerosing cholangitis and autoimmune hepatitis. Performed By: #### L 3130.0010, L3300.1200, L3100.5800, L3100.5700, L3400.4200, L3100.5500 ####[facility] [address] [place], [place], [phone] Cytoplasmic Ab <1:20 Normal Neg:<1:20 [facility] Comment on above: Performed By: #### L 3130.0010, L3300.1200, L3100.5800, L3100.5700, L3400.4200, L3100.5500 ####[facility] [address] [place], [address] Perinuclear Ab. <1:20 Normal Neg:<1:20 [facility] Comment on above: Result Comment: The presence of positive fluorescence exhibiting P-ANCA orC-ANCA patterns alone is not specific for the diagnosis ofWegener's Granulomatosis (WG) or microscopic polyangiitis.Decisions about treatment should not be based solely onANCA IFA results. The International ANCA Group Consensusrecommends follow up testing of positive sera with both ND-3 and MPO-ANCA enzyme immunoassays. As many as 5% serumsamples are positive only by EIA. Ref. AM J Clin Wwbiub3650;111:507-513. Performed By: #### L 3130.0010, L3300.1200, L3100.5800, L3100.5700, L3400.4200, L3100.5500 ####[facility] [address] [place], [address] Anti-Glomerular Basement Mem bon 2024 ANTI-GLOM BM Ab < 0.2 Normal 0.0-0.9 [facility] Comment on above: Result Comment: Perf ormed at: - [facility] [address] [place], [place] [id number] Director: Fernandez Ceballos PhD, Phone: [phone] at: - [facility] [address] [id number] Director: Colt Rich MD, Phone: [phone] Performed By: #### L 3130.0010, L3300.1200, L3100.5800, L3100.5700, L3400.4200, L3100.5500 ####[facility] [address] [facility] [address] Bedside Glucoseon 2024 FINGERSTICK GLU 133 mg/dL High 74-106 [facility] Comment on above: Result Comment: ANA GEMENT OF PATIENT CARE PER NURSING PROTOCOL Performed By: #### L 501.080 ####[facility] [address] [place], [address] FINGERSTICK GLU 145 mg/dL High 74-106 [facility] Comment on above: Result Comment: ANA GEMENT OF PATIENT CARE PER NURSING PROTOCOL Performed By: #### L 501.080 ####[facility] [address] [place], [address] FINGERSTICK GLU 127 mg/dL High 74-106 [facility] Comment on above: Result Comment: ANA GEMENT OF PATIENT CARE PER NURSING PROTOCOL Performed By: #### L 501.080 ####[facility] [address] [facility] [address] FINGERSTICK GLU 135 mg/dL High 74-106 [facility] Comment on above: Result Comment: ANA GEMENT OF PATIENT CARE PER NURSING PROTOCOL Performed By: #### L 501.080 ####[facility] [address] [place], [address] Bilirubin, totalOrdered By: Josette Garrett on 2024 Bilirubin [Mass/Vol] 0.37 mg/dL 0.00-1.30 [facility] CBC-Complete Blood Cnt No Di ffon 2024 Erythrocyte distribution width (RBC) [Ratio] 11.8 % Normal 11.6-14.6 [facility] Comment on above: Performed By: #### L 500.4050, L100.0500, L501.5200 ####[facility] [address] [place], [address] Hematocrit (Bld) [Volume fraction] 21.6 % Low 40-54 [facility] Comment on above: Performed By: #### L 500.4050, L100.0500, L501.5200 ####[facility] [address] [place], [address] Hemoglobin (Bld) [Mass/Vol] 7.9 g/dL Low 13.0-16.5 [facility] Comment on above: Performed By: #### L 500.4050, L100.0500, L501.5200 ####[facility] [address] [place], [address] MCH (RBC) [Entitic mass] 37.3 pg High 27.0-32.0 [facility] Comment on above: Performed By: #### L 500.4050, L100.0500, L501.5200 ####[facility] [address] [place], [address] MCHC (RBC) [Mass/Vol] 36.6 g/dL High 32-36 [facility] Comment on above: Performed By: #### L 500.4050, L100.0500, L501.5200 ####[facility] [address] [place], [address] MCV (RBC) [Entitic vol] 101.9 fL High 80-94 [facility] Comment on above: Performed By: #### L 500.4050, L100.0500, L501.5200 ####[facility] [address] [place], [address] Platelet mean volume (Bld) [Entitic vol] 10.1 fL Normal 6.2-12.0 [facility] Comment on above: Performed By: #### L 500.4050, L100.0500, L501.5200 ####[facility] [address] [place], [address] Platelets (Bld) [#/Vol] 127 10*3/uL Low 150-450 [facility] Comment on above: Performed By: #### L 500.4050, L100.0500, L501.5200 ####[facility] [address] [place], [address] RBC (Bld) [#/Vol] 2.12 10*6/uL Low 4.6-6.2 [facility] Comment on above: Performed By: #### L 500.4050, L100.0500, L501.5200 ####[facility] [address] [place], [address] RDW SD 43.4 fl Normal 35.1-43.9 [facility] Comment on above: Performed By: #### L 500.4050, L100.0500, L501.5200 ####[facility] [address] [place], [address] WBC (Bld) [#/Vol] 7.3 10*3/uL Normal 4.4-11.0 [facility] Comment on above: Performed By: #### L 500.4050, L100.0500, L501.5200 ####[facility] [address] [place], [address] Complement C3on 2024 COMP C3 75 mg/dL Low 82-167 [facility] Comment on above: Performed By: #### L 3130.0010, L3300.1200, L3100.5800, L3100.5700, L3400.4200, L3100.5500 ####[facility] [address] [place], [address] Complement C4on 2024 COMPLEMENT, C4 25 mg/dL Normal 12-38 [facility] Comment on above: Performed By: #### L 3130.0010, L3300.1200, L3100.5800, L3100.5700, L3400.4200, L3100.5500 ####[facility] [address] [place], [address] Comprehensive Metabolic Prof ilon 2024 Albumin [Mass/Vol] 2.8 g/dL Low 3.4-4.8 [facility] Comment on above: Performed By: #### L 500.4050, L100.0500, L501.5200 ####[facility] [address] [place], [address] Albumin/Globulin [Mass ratio] 0.6 {ratio} Low 0.9-2.4 [facility] Comment on above: Performed By: #### L 500.4050, L100.0500, L501.5200 ####[facility] [address] [place], [address] ALK PHOS 78 U/L Normal 40-129 [facility] Comment on above: Performed By: #### L 500.4050, L100.0500, L501.5200 ####[facility] [address] [place], [address] ALT [Catalytic activity/Vol] 13 U/L Normal <=46 [facility] Comment on above: Performed By: #### L 500.4050, L100.0500, L501.5200 ####[facility] [address] [place], [address] AST [Catalytic activity/Vol] 21 U/L Normal <=37 [facility] Comment on above: Performed By: #### L 500.4050, L100.0500, L501.5200 ####[facility] [address] [place], [address] Bilirubin [Mass/Vol] 0.37 mg/dL Normal 0.00-1.30 [facility] Comment on above: Performed By: #### L 500.4050, L100.0500, L501.5200 ####[facility] [address] [place], [address] BUN/CRE 11.5 RATIO Normal 10-20 [facility] Comment on above: Performed By: #### L 500.4050, L100.0500, L501.5200 ####[facility] [address] [place], [address] Calcium [Mass/Vol] 10.9 mg/dL Normal 7.6-11.0 [facility] Comment on above: Performed By: #### L 500.4050, L100.0500, L501.5200 ####[facility] [address] [place], [address] Chloride [Moles/Vol] 97 mmol/L Low 98-108 [facility] Comment on above: Performed By: #### L 500.4050, L100.0500, L501.5200 ####[facility] [address] [place], [address] CO2 [Moles/Vol] 19.1 mmol/L Low 21.0-32.0 [facility] Comment on above: Performed By: #### L 500.4050, L100.0500, L501.5200 ####[facility] [address] [place], [address] Creatinine [Mass/Vol] 8.81 mg/dL Invalid Interpretation Code 0.70-1.20 [facility] Comment on above: Result Comment: Crit ical Result(s) Called at 0625: by: FLORENCIO VALLE??Results read back by same. Performed By: #### L 500.4050, L100.0500, L501.5200 ####[facility] [address] [place], [address] ECRCL 6.85 ml/min Invalid Interpretation Code 50-250 [facility] Comment on above: Performed By: #### L 500.4050, L100.0500, L501.5200 ####[facility] [address] [place], [address] GAP 15 Normal 5-15 [facility] Comment on above: Performed By: #### L 500.4050, L100.0500, L501.5200 ####[facility] [address] [place], [address] GFR/1.73 sq M.predicted among non-blacks MDRD (S/P/Bld) [Vol rate/Area] 5 mL/min/{1.73_m2} Low >60 [facility] Comment on above: Result Comment: mL/m in/1.73m2 CKD-EPI Creatinine Equation (2020) Performed By: #### L 500.4050, L100.0500, L501.5200 ####[facility] [address] [place], [address] Globulin (S) [Mass/Vol] 4.9 g/dL High 2.2-4.2 [facility] Comment on above: Performed By: #### L 500.4050, L100.0500, L501.5200 ####[facility] [address] [place], [address] Glucose [Mass/Vol] 111 mg/dL High 70-99 [facility] Comment on above: Performed By: #### L 500.4050, L100.0500, L501.5200 ####[facility] [address] [place], [address] Potassium [Moles/Vol] 4.5 mmol/L Normal 3.3-5.1 [facility] Comment on above: Performed By: #### L 500.4050, L100.0500, L501.5200 ####[facility] [address] [place], [address] Sodium [Moles/Vol] 131 mmol/L Low 133-145 [facility] Comment on above: Performed By: #### L 500.4050, L100.0500, L501.5200 ####[facility] [address] [place], [address] T PROT 7.7 g/dL Normal 5.9-8.4 [facility] Comment on above: Performed By: #### L 500.4050, L100.0500, L501.5200 ####[facility] [address] [place], [address] Urea nitrogen [Mass/Vol] 101 mg/dL Invalid Interpretation Code 06-18 [facility] Comment on above: Result Comment: Crit ical Result(s) Called at 0625: by: FLORENCIO VALLE??Results read back by same. Performed By: #### L 500.4050, L100.0500, L501.5200 ####[facility] [address] [place], [address] [place] Lambda Light Chainson 2024 FR KAPPA LT CHN 23.3 mg/L Abnormal 3.3-19.4 [facility] Comment on above: Performed By: #### L 3130.0010, L3300.1200, L3100.5800, L3100.5700, L3400.4200, L3100.5500 ####[facility] [address] [place], [address] FR LAMBDA LT CH 1177.7 mg/L Abnormal 5.7-26.3 [facility] Comment on above: Performed By: #### L 3130.0010, L3300.1200, L3100.5800, L3100.5700, L3400.4200, L3100.5500 ####[facility] [address] [place], [address] KAPPA/LAMBDA % 0.02 Abnormal 0.26-1.65 [facility] Comment on above: Performed By: #### L 3130.0010, L3300.1200, L3100.5800, L3100.5700, L3400.4200, L3100.5500 ####[facility] [address] [place], [address] Kidney Biopsyon 2024 Kidney Biopsy Normal [facility] L350.1810on 2024 Path [facility] PATHOLOGY REPORT Normal [facility] Comment on above: Order Comment: RESUL TS FAXED TO DR BAH 12/12/24 0824 Jay Méndez. Result Comment: Spec imen sent to [facility]ology [facility].Report available in EMR. Performed By: #### L 350.1810 ####[facility] [address] [place], [address] L3890.6102on 2024 HEP B Surf Ag Non-Reactive Normal Nonreactive [facility] Comment on above: Order Comment: Reaso n for Exam: outpatient dialysis Result Comment: Reac tive: Presumptive evidence of HBV. Repeatedly reactivesamples must be confirmed using a neutralization test([employer] HBsAg Confirmatory Test)Non-Reactive: HBsAg not detected; does not exclude thepossibility of exposure to HBV Performed By: #### L 3890.6102 ####[facility] [address] [place], [address] Magnesiumon 10-08-2025 Magnesium [Mass/Vol] 3.6 mg/dL High 1.5-2.2 [facility] Comment on above: Performed By: #### L 500.4050, L100.0500, L501.5200 ####[facility] [address] [place], [address] No Panel InformationOrdered By: Josette Garrett on 2024 21 U/L <38 [facility] Phosphoruson 2024 Phosphate [Mass/Vol] 5.0 mg/dL High 2.7-4.5 [facility] Comment on above: Performed By: #### L 501.2300 ####[facility] [address] [place], [address] SURG PATH REQUESTon 12-08-19 Case Report Normal [facility] Comment on above: Result Comment: Surg ical Pathology Report Case: [id number] Authorizing Provider: Anam Bah MD Collected: 2024 12:30 PM Ordering Location[facility] Received: 12/08/2024 08:13 AM [facility] Pathologist: Yomaira Woodward MD Specimen: [id number] Performed By: #### S URGP #### [facility] (DEFAULT) [address] [place] [address] Clinical History The patient is an 84-year-old male who presents with acute renal failure. The patient's past medical history includes diabetes, hypertension, hypothyroidism and gastroesophageal reflux disease with a recent diagnosis of an L1 compression fracture for which he has an upcoming kyphoplasty procedure. In April 2024, the patient's baseline serum creatinine was 1.2-1.3 cm/dL, but now serum creatinine is approximately 9 mm/dL. Serologic testing reveals an elevated lambda light chain value (1177) compared to the kappa value (23) with a ratio of 0.0.2. An IgA lambda monoclonal protein is also present. Urinalysis shows proteinuria (30 spot), hematuria (10-25 RBC), without pyuria. The leukocyte estrace test is positive and rare bacteria are seen. Microalbumin to creatinine ratio is 200. Normal [facility] Comment on above: Performed By: #### S URGP #### [facility] (DEFAULT) [address] [place] [address] Gross Description Normal [facility] Comment on above: Result Comment: Thelma sheriff from [facility], [place], [place], is a [place] kidney biopsy with two containers labeled with the patient's name and date of . The vial with formalin contains 2 pieces of 0.1 cm hansen-pink renal cores with the aggregate length of 4.2 cm. One 0.3 cm piece in total length is submitted for electron microscopy. The IF transport medium vial contains 2 pieces of 0.1 cm hansen-pink renal cores with the aggregate length of 2.4 cm. Two 2.4 cm pieces in total length are submitted for immunofluorescence and are cut into 3 pieces. All formalin-fixed tissue is submitted for light microscopy. TE 2 Summary of Sections: A1 - 4 pieces A2 - 3 pieces IF tissue Grosser for this case was: Analia Wilder Performed By: #### S URGP #### [facility] (DEFAULT) [address] [place] [address] Microscopic Description Normal [facility] Comment on above: Result Comment: [facility] MICROSCOPY Paraffin sections stained with H&E, PAS, Trichrome, and methenamine silver contain 4 cores of renal cortex (50%) and medulla (50%). Glomeruli: Up to 22 glomeruli are present per section, six of which are globally sclerotic. Patent glomeruli are mildly enlarged with mild nodular mesangial matrix expansion, but are normocellular. Rare glomeruli (1-2) show features of mesangiolysis as well as a few possible red blood cell fragments. Periglomerular fibrosis is present around a few glomeruli. The glomerular capillary beck appear mildly thickened but are smooth on the silver stain. No crescents, necrosis, or thrombi are identified. Tubules and Interstitium: There is mild tubular atrophy and interstitial fibrosis estimated to involve approximately 15-20% of the cortical sample with a prominent area of subcapsular scarring. The preserved proximal tubules show diffuse and severe features of acute tubular injury with epithelial thinning, focal cytoplasmic vacuolization, and reactive nuclear changes. Several tubules are distended by casts. Some of these casts have a fractured appearance, but others are granular. Most of them are accompanied by a cellular reaction and are PAS and silver pale. The myoglobin stain is negative. Occasional calcium phosphate crystals are also noted. Within the interstitium, there is diffuse mild edema. There is patchy mononuclear interstitial inflammation with occasional eosinophils located primarily at the corticomedullary junction or associated with extruded protein. No polarizable crystals are seen within the tissue. Vessels: Up to intralobular sized arteries are sampled and show moderate fibro intimal thickening. Moderate to severe hyaline deposition is seen within the arterioles. DIRECT IMMUNOFLUORESCENCE Frozen sections contain renal cortex with up to six glomeruli per section, one of which are globally sclerotic. The tissue appears similar to that seen on light microscopy. Immunofluorescence with antibodies to albumin, IgG, IgA, IgM, C1q, C3, fibrinogen, and both kappa and lambda light chains is performed, and the results are as follows: Albumin: 1+ diffuse linear glomerular and tubular basement membrane staining IgG: No glomerular staining IgA: No glomerular staining, 3+ casts IgM: 1+ diffuse very segmental granular melissa mesangial staining, 1+ casts, 1+ leukocytes C1q: No glomerular staining, 1+ leukocytes C3: No glomerular staining, 1+ tubular basement membrane, 1+ vessel wall Fibrinogen: Moderate focal interstitial staining, 2+ staining within [place] protein [place] light chain: No glomerular staining, 1+ casts Lambda light chain: No glomerular staining, 2-3+ casts (1-2+ brighter than kappa background also) DIRECT IMMUNOFLUORESCENCE performed on the paraffin embedded sections after pronase digestion. IgG: No glomerular staining [place]: No glomerular staining, 1+ staining of casts Lambda: No glomerular staining, 3+ staining of casts (Grading of the staining intensity is performed on a semiquantitative scale from 0 to 3+) All positive and negative controls were reviewed by the attending pathologist and showed appropriate reactivity. All immunohistochemistry, in situ hybridization, immunofluorescence, and histochemical tests were developed, and their performance characteristics were determined, by the [facility], Department of Pathology. One or more tests reported here have not been cleared by or approved by the US Food and Drug Administration (FDA). The FDA has determined that such clearance or approval is not necessary. This laboratory is regulated under CLIA as qualified to perform high-complexity testing. The tests are used for clinical purposes and should not be regarded as investigational or for research. ELECTRON MICROSCOPY Methylene blue/basic fuchsin stained semithin sections contain renal corticomedullary junction, but no glomeruli are present. A section of tubules and interstitium is examined under the electron microscope. Ultrastructurally, the tubules show features of acute tubular injury including loss of the brush border. No discrete electron-dense immune-type deposits, fibrillary deposits, or linear powdery-type deposits are identified. No crystals are seen within the tubular epithelial cell cytoplasm. Performed By: #### S URGP #### 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 On light microscopy, these casts are frequently PAS-pale and associated with a cellular reaction. Additionally, there is focal mononuclear interstitial inflammation accompanied by some eosinophils which is favored to be a reaction to the acute tubular process. In the background, there is focal global glomerulosclerosis (approximately 25%) and mild tubular atrophy and interstitial fibrosis (15-20%). The patent glomerul show features suggestive of early diabetic glomerulopathy with moderate to severe arteriolar hyalinosis. The congo red stain is negative. No diagnostic glomerular staining is seen on on immunofluorescence with and without pronase digestion. The tubular casts show a lambda light chain predominance with both assays. Unfortunately, the tissue submitted for electron microscopy did not contain a glomerulus. However, ultrastructural examination of the tubules shows no evidence of tubular basement membrane deposits or intracytoplasmic crystals. 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 Results were discussed with Dr. Bah on 12/08/2024 and 12/09/2024. at 1409 EDT Performed By: #### S URGP #### [facility] (DEFAULT) [address] [place] [address] Professional Interpretation Performed at: Normal [facility] Comment on above: Result Comment: [facility] For Immediate Release to Patient's MyChart? Yes [address] [place], [place] [address] Performed By: #### S URGP #### [facility] (DEFAULT) [address] [place] [address] Serum globulin measurementOr dered By: Josette Garrett on 2024 Globulin (S) [Mass/Vol] 4.9 g/dL High 2.2-4.2 [facility] Serum or plasma alanine saunders otransferase (ALT) measurementOrdered By: Josette Garrett on 2024 ALT [Catalytic activity/Vol] 13 U/L <47 [facility] Serum or plasma albumin darell urement (mass/volume)Ordered By: Josette Garrett on 2024 Albumin [Mass/Vol] 2.8 g/dL Low 3.4-4.8 [facility] Serum or plasma albumin/glob ulin mass ratioOrdered By: Josette Garrett on 2024 Albumin/Globulin [Mass ratio] 0.6 {ratio} Low 0.9-2.4 [facility] Serum or plasma alkaline chelle sphatase measurementOrdered By: Josette Garrett on 2024 ALP [Catalytic activity/Vol] 78 U/L 40-129 [facility] Total proteinOrdered By: Zenaida Garrett on 2024 Protein [Mass/Vol] 7.7 g/dL 5.9-8.4 [facility] 12 Lead EKGon 12-06-2024 12 Lead EKG Normal [facility] 12 Lead EKG Normal [facility] Anti-dsDNA Abon 12-06-2024 ANTI-DNA (DS)AB <1 Normal 0-9 [facility] Comment on above: Result Comment: Nega tive <5 Equivocal 5 - 9 Positive >9Performed at: - [facility] [address] [id number] Director: Fernandez Ceballos PhD, Phone: [phone] Performed By: #### L 3130.0010, L3300.1200, L3100.5800, L3100.5700, L3400.4200, L3100.5500 ####[facility] [address] [place], [address] Basic Metabolic Profile (BMP )on 12-06-2024 BUN/CRE 12.2 RATIO Normal 10-20 [facility] Comment on above: Performed By: #### L 100.0500, L500.2500 ####[facility] [address] [place], [address] Calcium [Mass/Vol] 10.9 mg/dL Normal 7.6-11.0 [facility] Comment on above: Performed By: #### L 100.0500, L500.2500 ####[facility] [address] [place], [address] Chloride [Moles/Vol] 95 mmol/L Low 98-108 [facility] Comment on above: Performed By: #### L 100.0500, L500.2500 ####[facility] [address] [place], [address] CO2 [Moles/Vol] 20.0 mmol/L Low 21.0-32.0 [facility] Comment on above: Performed By: #### L 100.0500, L500.2500 ####[facility] [address] [place], [address] Creatinine [Mass/Vol] 8.50 mg/dL Invalid Interpretation Code 0.70-1.20 [facility] Comment on above: Result Comment: Crit ical Result(s) Called at 0634: by: SUKHDEEP VALLE. ??Results read back by same. Performed By: #### L 100.0500, L500.2500 ####[facility] [address] [place], [address] ECRCL 7.23 ml/min Invalid Interpretation Code 50-250 [facility] Comment on above: Performed By: #### L 100.0500, L500.2500 ####[facility] [address] [place], [address] GAP 14 Normal 5-15 [facility] Comment on above: Performed By: #### L 100.0500, L500.2500 ####[facility] [address] [place], [address] GFR/1.73 sq M.predicted among non-blacks MDRD (S/P/Bld) [Vol rate/Area] 6 mL/min/{1.73_m2} Low >60 [facility] Comment on above: Result Comment: mL/m in/1.73m2 CKD-EPI Creatinine Equation (2020) Performed By: #### L 100.0500, L500.2500 ####[facility] [address] [place], [address] Glucose [Mass/Vol] 132 mg/dL High 70-99 [facility] Comment on above: Performed By: #### L 100.0500, L500.2500 ####[facility] [address] [place], [address] Potassium [Moles/Vol] 4.2 mmol/L Normal 3.3-5.1 [facility] Comment on above: Performed By: #### L 100.0500, L500.2500 ####[facility] [address] [place], [address] Sodium [Moles/Vol] 129 mmol/L Low 133-145 [facility] Comment on above: Performed By: #### L 100.0500, L500.2500 ####[facility] [address] [place], [address] Urea nitrogen [Mass/Vol] 104 mg/dL Invalid Interpretation Code 4-19 [facility] Comment on above: Result Comment: Crit ical Result(s) Called at 0634: by: SUKHDEEP VALLE. ??Results read back by same. Performed By: #### L 100.0500, L500.2500 ####[facility] [address] [place], [address] Bedside Glucoseon 12-06-2024 FINGERSTICK GLU 134 mg/dL High 74-106 [facility] Comment on above: Result Comment: ANA GEMENT OF PATIENT CARE PER NURSING PROTOCOL Performed By: #### L 501.080 ####[facility] [address] [place], [address] FINGERSTICK GLU 87 mg/dL Normal 74-106 [facility] Comment on above: Result Comment: ANA GEMENT OF PATIENT CARE PER NURSING PROTOCOL Performed By: #### L 501.080 ####[facility] [address] [place], [address] FINGERSTICK GLU 123 mg/dL High 74-106 [facility] Comment on above: Result Comment: ANA GEMENT OF PATIENT CARE PER NURSING PROTOCOL Performed By: #### L 501.080 ####[facility] [address] [place], [address] CBC W/Diff, Automatedon 10-0 Absolute Lymph 0.78 X10 3/uL Low 0.83-4.51 [facility] Comment on above: Order Comment: Comme nts: tunneled dialysis catheter Performed By: #### L 501.9985, L100.0100 ####[facility] [address] [place], [address] Absolute Neut 4.5 X10 3/uL Normal 2.0-7.7 [facility] Comment on above: Order Comment: Comme nts: tunneled dialysis catheter Performed By: #### L 501.9985, L100.0100 ####[facility] [address] [place], [address] Basophils/100 WBC (Bld) 0.0 % Normal 0-1 [facility] Comment on above: Order Comment: Comme nts: tunneled dialysis catheter Performed By: #### L 501.9985, L100.0100 ####[facility] [address] [place], [address] Eosinophils/100 WBC (Bld) 1.2 % Normal 0-5 [facility] Comment on above: Order Comment: Comme nts: tunneled dialysis catheter Performed By: #### L 501.9985, L100.0100 ####[facility] [address] [place], [address] Erythrocyte distribution width (RBC) [Ratio] 11.4 % Low 11.6-14.6 [facility] Comment on above: Order Comment: Comme nts: tunneled dialysis catheter Performed By: #### L 501.9985, L100.0100 ####[facility] [address] [place], [address] Hematocrit (Bld) [Volume fraction] 21.7 % Low 40-54 [facility] Comment on above: Order Comment: Comme nts: tunneled dialysis catheter Performed By: #### L 501.9985, L100.0100 ####[facility] [address] [place], [address] Hemoglobin (Bld) [Mass/Vol] 7.7 g/dL Low 13.0-16.5 [facility] Comment on above: Order Comment: Comme nts: tunneled dialysis catheter Performed By: #### L 501.9985, L100.0100 ####[facility] [address] [place], [address] IG% 0.500 Normal 0.0-0.9 [facility] Comment on above: Order Comment: Comme nts: tunneled dialysis catheter Result Comment: IG% - Immature Granulocytes (promyelocytes, myelocytes andmetamyelocytes) > 1% indicates that a LEFT SHIFT is Present. Performed By: #### L 501.9985, L100.0100 ####[facility] [address] [place], [address] Lymphocytes/100 WBC (Bld) 13.2 % Low 19-41 [facility] Comment on above: Order Comment: Comme nts: tunneled dialysis catheter Performed By: #### L 501.9985, L100.0100 ####[facility] [address] [place], [address] MCH (RBC) [Entitic mass] 35.8 pg High 27.0-32.0 [facility] Comment on above: Order Comment: Comme nts: tunneled dialysis catheter Performed By: #### L 501.9985, L100.0100 ####[facility] [address] [place], [address] MCHC (RBC) [Mass/Vol] 35.5 g/dL Normal 32-36 [facility] Comment on above: Order Comment: Comme nts: tunneled dialysis catheter Performed By: #### L 501.9985, L100.0100 ####[facility] [address] [place], [address] MCV (RBC) [Entitic vol] 100.9 fL High 80-94 [facility] Comment on above: Order Comment: Comme nts: tunneled dialysis catheter Performed By: #### L 501.9985, L100.0100 ####[facility] [address] [place], [address] Monocytes/100 WBC (Bld) 9.1 % Normal 0-10 [facility] Comment on above: Order Comment: Comme nts: tunneled dialysis catheter Performed By: #### L 501.9985, L100.0100 ####[facility] [address] [place], [address] Neutrophils/100 WBC (Bld) 76.0 % High 47-70 [facility] Comment on above: Order Comment: Comme nts: tunneled dialysis catheter Performed By: #### L 501.9985, L100.0100 ####[facility] [address] [place], [address] Nucleated RBC (Bld) [#/Vol] 0 10*3/uL Normal 0-5 [facility] Comment on above: Order Comment: Comme nts: tunneled dialysis catheter Performed By: #### L 501.9985, L100.0100 ####[facility] [address] [place], [address] Platelet mean volume (Bld) [Entitic vol] 10.2 fL Normal 6.2-12.0 [facility] Comment on above: Order Comment: Comme nts: tunneled dialysis catheter Performed By: #### L 501.9985, L100.0100 ####[facility] [address] [place], [address] Platelets (Bld) [#/Vol] 134 10*3/uL Low 150-450 [facility] Comment on above: Order Comment: Comme nts: tunneled dialysis catheter Performed By: #### L 501.9985, L100.0100 ####[facility] [address] [place], [address] RBC (Bld) [#/Vol] 2.15 10*6/uL Low 4.6-6.2 [facility] Comment on above: Order Comment: Comme nts: tunneled dialysis catheter Performed By: #### L 501.9985, L100.0100 ####[facility] [address] [place], [address] RDW SD 42.2 fl Normal 35.1-43.9 [facility] Comment on above: Order Comment: Comme nts: tunneled dialysis catheter Performed By: #### L 501.9985, L100.0100 ####[facility] [address] [place], [address] WBC (Bld) [#/Vol] 5.9 10*3/uL Normal 4.4-11.0 [facility] Comment on above: Order Comment: Comme nts: tunneled dialysis catheter Performed By: #### L 501.9985, L100.0100 ####[facility] [address] [place], [address] CBC-Complete Blood Cnt No Di ffon 12-06-2024 HCT Normal 40-54 [facility] Comment on above: Result Comment: OVER LAPPING ORDER-CBCD ALSO ORDERED Performed By: #### L 100.0500, L500.2500 ####[facility] [address] [place], [address] HGB Normal 13.0-16.5 [facility] Comment on above: Result Comment: OVER LAPPING ORDER-CBCD ALSO ORDERED Performed By: #### L 100.0500, L500.2500 ####[facility] [address] [place], [address] MCH Normal 27.0-32.0 [facility] Comment on above: Result Comment: OVER LAPPING ORDER-CBCD ALSO ORDERED Performed By: #### L 100.0500, L500.2500 ####[facility] [address] [place], [address] MCHC Normal 32-36 [facility] Comment on above: Result Comment: OVER LAPPING ORDER-CBCD ALSO ORDERED Performed By: #### L 100.0500, L500.2500 ####[facility] [address] [place], [address] MCV Normal 80-94 [facility] Comment on above: Result Comment: OVER LAPPING ORDER-CBCD ALSO ORDERED Performed By: #### L 100.0500, L500.2500 ####[facility] [address] [place], [address] PLT Normal 150-450 [facility] Comment on above: Result Comment: OVER LAPPING ORDER-CBCD ALSO ORDERED Performed By: #### L 100.0500, L500.2500 ####[facility] [address] [place], [address] RBC Normal 4.6-6.2 [facility] Comment on above: Result Comment: OVER LAPPING ORDER-CBCD ALSO ORDERED Performed By: #### L 100.0500, L500.2500 ####[facility] [address] [place], [address] RDW CV Normal 11.6-14.6 [facility] Comment on above: Result Comment: OVER LAPPING ORDER-CBCD ALSO ORDERED Performed By: #### L 100.0500, L500.2500 ####[facility] [address] [place], [address] RDW SD Normal 35.1-43.9 [facility] Comment on above: Result Comment: OVER LAPPING ORDER-CBCD ALSO ORDERED Performed By: #### L 100.0500, L500.2500 ####[facility] [address] [place], [address] WBC Normal 4.4-11.0 [facility] Comment on above: Result Comment: OVER LAPPING ORDER-CBCD ALSO ORDERED Performed By: #### L 100.0500, L500.2500 ####[facility] [address] [place], [address] CXR for Line Placementon CXR for Line Placement Normal [facility] Electrocardiogram reportOrde red By: Homer Grey on 12-06-2024 EKG study [facility] Work Phone: Hemoglobin A1con 12-06-2024 HbA1c (Bld) [Mass fraction] 6.4 % High <=5.6 [facility] Comment on above: Order Comment: Comme nts: tunneld dialysis catheter Result Comment: Norm al < 5.7 % Prediabetic 5.7 - 6.4 % Diabetic >or= 6.5 % Please note range changes. Performed By: #### L 501.9985, L100.0100 ####[facility] [address] [place], [address] Hemoglobin A1c percentageOrd ered By: Chris Machado on 12-06-2024 HbA1c (Bld) [Mass fraction] 6.4 % High <5.7 [facility] MR/POSTOP.ANEon 12-06-2024 MR/POSTOP.ANE Normal [facility] MR/PYOOVBAD9zv 12-06-2024 MR/POSTOPAN2 Normal [facility] Operative Reporton Operative Report Normal [facility] Partial Thromboplast Timeon 12-06-2024 aPTT Coag (Bld) [Time] 27.2 s Normal 24.1-36.2 [facility] Comment on above: Order Comment: PT WA S IN SURGERY, SENT TUBES TO AC. LMARTELL Performed By: #### L 300.3900, L300.4310 ####[facility] [address] [place], [address] Prothrombin Time w/INRon INR Coag (PPP) [Relative time] 1.1 {INR} Normal [facility] Comment on above: Order Comment: PT WA S IN SURGERY, SENT TUBES TO AC. LMARTELL Performed By: #### L 300.3900, L300.4310 ####[facility] [address] [place], [address] PT Coag (PPP) [Time] 14.8 s Normal 11.7-14.9 [facility] Comment on above: Order Comment: PT WA S IN SURGERY, SENT TUBES TO AC. LMARTELL Performed By: #### L 300.3900, L300.4310 ####[facility] [address] [place], [address] Anion gap in Serum or Plasma Ordered By: Claire Mazariegos on 12-05-2024 Anion gap [Moles/Vol] 14 mmol/L 5-15 [facility] BUN/creatinine ratioOrdered By: Claire Mazariegos on 12-05-2024 Urea nitrogen/Creatinine [Mass ratio] 12.2 mg/mg 12-19 [facility] Basic Metabolic Profile (BMP )on 12-05-2024 BUN/CRE 12.2 RATIO Normal 12-19 [facility] Comment on above: Performed By: #### L 100.0500, L500.2500, L503.6550, L503.0106, L503.6030 ####[facility] [address] [place], [address] Calcium [Mass/Vol] 11.5 mg/dL High 7.6-11.0 [facility] Comment on above: Performed By: #### L 100.0500, L500.2500, L503.6550, L503.0106, L503.6030 ####[facility] [address] [place], [address] Chloride [Moles/Vol] 95 mmol/L Low 98-108 [facility] Comment on above: Performed By: #### L 100.0500, L500.2500, L503.6550, L503.0106, L503.6030 ####[facility] [address] [place], [address] CO2 [Moles/Vol] 19.1 mmol/L Low 21.0-32.0 [facility] Comment on above: Performed By: #### L 100.0500, L500.2500, L503.6550, L503.0106, L503.6030 ####[facility] [address] [place], [address] Creatinine [Mass/Vol] 8.79 mg/dL Invalid Interpretation Code 0.70-1.20 [facility] Comment on above: Result Comment: Crit ical Result(s) Called at: by:??Results read back bysame. Performed By: #### L 100.0500, L500.2500, L503.6550, L503.0106, L503.6030 ####[facility] [address] [place], [address] ECRCL 6.93 ml/min Invalid Interpretation Code 50-250 [facility] Comment on above: Performed By: #### L 100.0500, L500.2500, L503.6550, L503.0106, L503.6030 ####[facility] [address] [place], [address] GAP 14 Normal 5-15 [facility] Comment on above: Performed By: #### L 100.0500, L500.2500, L503.6550, L503.0106, L503.6030 ####[facility] [address] [place], [address] GFR/1.73 sq M.predicted among non-blacks MDRD (S/P/Bld) [Vol rate/Area] 6 mL/min/{1.73_m2} Low >60 [facility] Comment on above: Result Comment: mL/m in/1.73m2 CKD-EPI Creatinine Equation (2020) Performed By: #### L 100.0500, L500.2500, L503.6550, L503.0106, L503.6030 ####[facility] [address] [place], [address] Glucose [Mass/Vol] 128 mg/dL High 70-99 [facility] Comment on above: Performed By: #### L 100.0500, L500.2500, L503.6550, L503.0106, L503.6030 ####[facility] [address] [place], [address] Potassium [Moles/Vol] 4.1 mmol/L Normal 3.3-5.1 [facility] Comment on above: Performed By: #### L 100.0500, L500.2500, L503.6550, L503.0106, L503.6030 ####[facility] [address] [place], [address] Sodium [Moles/Vol] 128 mmol/L Low 133-145 [facility] Comment on above: Performed By: #### L 100.0500, L500.2500, L503.6550, L503.0106, L503.6030 ####[facility] [address] [place], [address] Urea nitrogen [Mass/Vol] 107 mg/dL Invalid Interpretation Code 06-18 [facility] Comment on above: Result Comment: Crit ical Result(s) Called at: 0630 by:??ELIZABETH TOLLIVEROLSOTO Results read back by same. Performed By: #### L 100.0500, L500.2500, L503.6550, L503.0106, L503.6030 ####[facility] [address] [place], [address] Bedside Glucoseon 12-05-2024 FINGERSTICK GLU 141 mg/dL High 74-106 [facility] Comment on above: Result Comment: ANA GEMENT OF PATIENT CARE PER NURSING PROTOCOL Performed By: #### L 501.080 ####[facility] [address] [place], [address] FINGERSTICK GLU 211 mg/dL High 74-106 [facility] Comment on above: Result Comment: ANA GEMENT OF PATIENT CARE PER NURSING PROTOCOL Performed By: #### L 501.080 ####[facility] [address] [place], [address] FINGERSTICK GLU 164 mg/dL High 74-106 [facility] Comment on above: Result Comment: ANA GEMENT OF PATIENT CARE PER NURSING PROTOCOL Performed By: #### L 501.080 ####[facility] [address] [place], [address] FINGERSTICK GLU 118 mg/dL High 74-106 [facility] Comment on above: Result Comment: ANA PARKER OF PATIENT CARE PER NURSING PROTOCOL Performed By: #### L 501.080 ####[facility] [address] [place], [address] CBC-Complete Blood Cnt No Di ffon 12-05-2024 Erythrocyte distribution width (RBC) [Ratio] 11.6 % Normal 11.6-14.6 [facility] Comment on above: Performed By: #### L 100.0500, L500.2500, L503.6550, L503.0106, L503.6030 ####[facility] [address] [place], [address] Hematocrit (Bld) [Volume fraction] 20.6 % Low 40-54 [facility] Comment on above: Performed By: #### L 100.0500, L500.2500, L503.6550, L503.0106, L503.6030 ####[facility] [address] [place], [address] Hemoglobin (Bld) [Mass/Vol] 7.3 g/dL Low 13.0-16.5 [facility] Comment on above: Performed By: #### L 100.0500, L500.2500, L503.6550, L503.0106, L503.6030 ####[facility] [address] [place], [address] MCH (RBC) [Entitic mass] 36.0 pg High 27.0-32.0 [facility] Comment on above: Performed By: #### L 100.0500, L500.2500, L503.6550, L503.0106, L503.6030 ####[facility] [address] [place], [address] MCHC (RBC) [Mass/Vol] 35.4 g/dL Normal 32-36 [facility] Comment on above: Performed By: #### L 100.0500, L500.2500, L503.6550, L503.0106, L503.6030 ####[facility] [address] [place], [address] MCV (RBC) [Entitic vol] 101.5 fL High 80-94 [facility] Comment on above: Performed By: #### L 100.0500, L500.2500, L503.6550, L503.0106, L503.6030 ####[facility] [address] [place], [address] Platelet mean volume (Bld) [Entitic vol] 10.3 fL Normal 6.2-12.0 [facility] Comment on above: Performed By: #### L 100.0500, L500.2500, L503.6550, L503.0106, L503.6030 ####[facility] [address] [place], [address] Platelets (Bld) [#/Vol] 122 10*3/uL Low 150-450 [facility] Comment on above: Performed By: #### L 100.0500, L500.2500, L503.6550, L503.0106, L503.6030 ####[facility] [address] [place], [address] RBC (Bld) [#/Vol] 2.03 10*6/uL Low 4.6-6.2 [facility] Comment on above: Performed By: #### L 100.0500, L500.2500, L503.6550, L503.0106, L503.6030 ####[facility] [address] [place], [address] RDW SD 42.8 fl Normal 35.1-43.9 [facility] Comment on above: Performed By: #### L 100.0500, L500.2500, L503.6550, L503.0106, L503.6030 ####[facility] [address] [place], [address] WBC (Bld) [#/Vol] 5.3 10*3/uL Normal 4.4-11.0 [facility] Comment on above: Performed By: #### L 100.0500, L500.2500, L503.6550, L503.0106, L503.6030 ####[facility] [address] [place], [address] Carbon dioxide, total [Moles /volume] in Central venous bloodOrdered By: Claire Mazariegos on 12-05-2024 CO2 [Moles/Vol] 19.1 mmol/L Low 21.0-32.0 [facility] Chloride assayOrdered By: Mariaa Mazariegos on 12-05-2024 Chloride [Moles/Vol] 95 mmol/L Low 98-108 [facility] Consultation - Surgicalon Consultation - Surgical Normal [facility] Erythrocyte distribution wid th ratioOrdered By: Claire Mazariegos on 12-05-2024 Erythrocyte distribution width (RBC) [Ratio] 11.6 % 11.6-14.6 [facility] Erythrocyte distribution wid th standard deviationOrdered By: Claire Mazariegos on 12-05-2024 Erythrocyte distribution width (RBC) [Ratio] 42.8 fl 35.1-43.9 [facility] Ferritinon 12-05-2024 Ferritin [Mass/Vol] 453 ng/mL High 37-417 [facility] Comment on above: Performed By: #### L 100.0500, L500.2500, L503.6550, L503.0106, L503.6030 ####[facility] [address] [place], [address] Folate [Mass/volume] in Seru m or PlasmaOrdered By: Claire Mazariegos on 12-05-2024 Folate [Mass/Vol] 6.03 ng/mL 4.60-34.80 [facility] Folates,Serum (Folic Acid)on 12-05-2024 FOLATES,SERUM 6.03 ng/mL Normal 4.60-34.80 [facility] Comment on above: Performed By: #### L 506.0200 ####[facility] [address] [place], [address] Glomerular filtration rate ( GFR) estimation/1.73 sq m using serum, plasma, or whole bOrdered By: Claire Mazariegos on 12-05-2024 GFR/1.73 sq M.predicted among non-blacks MDRD (S/P/Bld) [Vol rate/Area] 6 mL/min/{1.73_m2} Low >60 [facility] Comment on above: mL/min/1.73m2 CKD-EP I Creatinine Equation (2020) [facility] deOrdered By: Claire Mazariegos on 12-05-2024 Glucose [Mass/Vol] 118 mg/dL High 74-106 [facility] Comment on above: MANAGEMENT OF PATIEN T CARE PER NURSING PROTOCOL Hematocrit Auto (Bld) [Volum e fraction]Ordered By: Claire Mazariegos on 12-05-2024 Hematocrit (Bld) [Volume fraction] 20.6 % Low 40-54 [facility] Hemoglobin measurementOrdere d By: Claire Mazariegos on 12-05-2024 Hemoglobin (Bld) [Mass/Vol] 7.3 g/dL Low 13.0-16.5 [facility] Iron measurement (mass/mass) Ordered By: Claire Mazariegos on 12-05-2024 Iron (Unsp spec) [Mass/Mass] 84 ug/dL 65-175 [facility] Iron+Iron Binding Capacityon 12-05-2024 TIBC 188 ug/dL Low 250-450 [facility] Comment on above: Performed By: #### L 100.0500, L500.2500, L503.6550, L503.0106, L503.6030 ####[facility] [address] [place], [address] [place] Lambda Light Chainson 12-05-2024 FR KAPPA LT CHN Normal [facility] Comment on above: Result Comment: MOVE D TO DIFFERENT REQ- SEE 1006:R4 Performed By: #### L 3130.0010 ####[facility] [address] [place], [address] FR LAMBDA LT CH Normal [facility] Comment on above: Result Comment: MOVE D TO DIFFERENT REQ- SEE 1006:R4 Performed By: #### L 3130.0010 ####[facility] [address] [place], [address] KAPPA/LAMBDA % Normal [facility] Comment on above: Result Comment: MOVE D TO DIFFERENT REQ- SEE 1006:R4 Performed By: #### L 3130.0010 ####[facility] [address] [place], [address] Kidney and Bladderon 025 Kidney and Bladder Normal [facility] Laboratory - Microbiology an d Antimicrobial susceptibilityOrdered By: Alyssia Bah on 12-05-2024 HBV surface Ag Ql (S) Non-Reactive Nonreactive [facility] MCV (mean corpuscular volume ) determinationOrdered By: Claire Mazariegos on 12-05-2024 MCV (RBC) [Entitic vol] 101.5 fL High 80-94 [facility] Mean corpuscular hemoglobin (MCH) determinationOrdered By: Claire Mazariegos on 12-05-2024 MCH (RBC) [Entitic mass] 36.0 pg High 27.0-32.0 [facility] Mean corpuscular hemoglobin concentration (MCHC) determinationOrdered By: Claire Mazariegos on 12-05-2024 MCHC (RBC) [Mass/Vol] 35.4 g/dL 32-36 [facility] Mean platelet volume determi nationOrdered By: Claire Mazariegos on 12-05-2024 Platelet mean volume (Bld) [Entitic vol] 10.3 fL 6.2-12.0 [facility] No Panel InformationOrdered By: Claire Mazariegos on 12-05-2024 Unsaturated Iron Binding Capacity 104 ug/dL Low 228-428 [facility] 104 ug/dL Low 228-428 [facility] Platelet countOrdered By: Mariaa Mazariegos on 12-05-2024 Platelets (Bld) [#/Vol] 122 10*3/uL Low 150-450 [facility] Potassium measurement (mass/ volume)Ordered By: Claire Mazariegos on 12-05-2024 Potassium (Unsp spec) [Mass/Vol] 4.1 mmol/L 3.3-5.1 [facility] RBC Auto (Bld) [#/Vol]Ordere d By: Claire Mazariegos on 12-05-2024 RBC (Bld) [#/Vol] 2.03 10*6/uL Low 4.6-6.2 [facility] Serum DNA double strand anti body assay (units/volume)Ordered By: Alyssia Bah on 12-05-2024 DNA double strand Ab Qn (S) [IU]/mL 0-9 [facility] Serum classic neutrophil cyt oplasmic antibody assay (units/volume)Ordered By: Alyssia Bah on 12-05-2024 Neutrophil cytoplasmic Ab.classic Qn (S) <1:20 titer Neg:<1:20 [facility] Serum creatinine measurement (mass/volume)Ordered By: Claire Mazariegos on 12-05-2024 Creatinine [Mass/Vol] 8.79 mg/dL Critically high 0.70-1.20 [facility] Comment on above: Critical Result(s) C alled at: by: Results read back by same. Serum glomerular basement me mbrane antibody assay (units/volume)Ordered By: Alyssia Bah on 12-05-2024 Glomerular basement membrane Ab Qn (S) < 0.2 units 0.0-0.9 [facility] Serum glucose measurement (m ass/volume)Ordered By: Claire Mazariegos on 12-05-2024 Glucose [Mass/Vol] 128 mg/dL High 70-99 [facility] Serum immunoglobulin kappa l ight chains/immunoglobulin lambda light chains mass ratioOrdered By: Alyssia Bah on 12-05-2024 Immunoglobulin light chains.kappa/Immunoglob ulin light chains.lambda (S) [Mass ratio] 0.02 Low 0.26-1.65 [facility] Serum or plasma calcium darell urement (mass/volume)Ordered By: Claire Mazariegos on 12-05-2024 Calcium [Mass/Vol] 11.5 mg/dL High 7.6-11.0 [facility] Serum or plasma complement C 4 measurement (mass/volume)Ordered By: Alyssia Bah on 12-05-2024 Complement C4 [Mass/Vol] 25 mg/dL 12-38 [facility] Serum or plasma ferritin porsha surement (mass/volume)Ordered By: Claire Mazariegos on 12-05-2024 Ferritin [Mass/Vol] 453 ng/mL High 37-417 [facility] Serum or plasma immunoglobul in kappa light chains measurement (mass/volume)Ordered By: Alyssia Bah on 12-05-2024 Immunoglobulin light chains.kappa [Mass/Vol] 23.3 mg/L High 3.3-19.4 [facility] Serum or plasma iron saturat ion measurement (mass fraction)Ordered By: Claire Mazariegos on 12-05-2024 Iron saturation [Mass fraction] 44.7 % 9-55 [facility] Comment on above: Previous reported re sult: 44.6 %Edited by: LETY on 12/05/24:31 AMENDED REPORT 12/05/24630 IRON SATURATION previously reported as: 44.6 % Serum or plasma urea nitroge n measurement (mass/volume)Ordered By: Claire Mazariegos on 12-05-2024 Urea nitrogen [Mass/Vol] 107 mg/dL Critically high 4-19 [facility] Comment on above: Critical Result(s) C alled at: 0630 by: ELIZABETH SALDAÑA TO TAMAR HUMPHREY Results read back by same. Serum perinuclear neutrophil cytoplasmic antibody titer by immunofluorescenceOrdered By: Alyssia Bah on 12-05-2024 Neutrophil cytoplasmic Ab.perinuclear IF (S) [Titer] <1:20 titer Neg:<1:20 [facility] Sodium levelOrdered By: Mark Mazariegos on 12-05-2024 Sodium [Moles/Vol] 128 mmol/L Low 133-145 [facility] Vitamin B12on 12-05-2024 Cobalamin (Vitamin B12) [Mass/Vol] 456 pg/mL Normal 180-914 [facility] Comment on above: Performed By: #### L 100.0500, L500.2500, L503.6550, L503.0106, L503.6030 ####[facility] [address] [place], [address] Vitamin B12 ser/plasOrdered By: Claire Mazariegos on 12-05-2024 Cobalamin (Vitamin B12) [Mass/Vol] 456 pg/mL 180-914 [facility] White blood cell (WBC) count Ordered By: Claire Mazariegos on 12-05-2024 WBC (Bld) [#/Vol] 5.3 10*3/uL 4.4-11.0 [facility] Absolute lymphocyte countOrd ered By: Claire Mazariegos on 12-04-2024 Lymphocytes Auto (Unsp spec) [#/Vol] 0.77 10*3/uL Low 0.83-4.51 [facility] Absolute neutrophil countOrd ered By: Claire Mazariegos on 12-04-2024 Neutrophils (Bld) [#/Vol] 4.9 10*3/uL 2.0-7.7 [facility] Automated lymphocyte count a s percentage of total leukocytesOrdered By: Claire Mazariegos on 12-04-2024 Lymphocytes/100 WBC Auto (Unsp spec) 12.1 % Low 19-41 [facility] Basic Metabolic Profile (BMP )on 12-04-2024 BUN Normal 4-19 [facility] Comment on above: Result Comment: Orquidea christyed via OM: Ordered Performed By: #### L 500.2500 ####[facility] [address] [place], [address] BUN/CRE Normal 10-20 [facility] Comment on above: Result Comment: Orquidea christyed via OM: Ordered Performed By: #### L 500.2500 ####[facility] [address] [place], [address] Calcium Normal 7.6-11.0 [facility] Comment on above: Result Comment: Orquidea christyed via OM: Ordered Performed By: #### L 500.2500 ####[facility] [address] [place], [address] CL Normal 98-108 [facility] Comment on above: Result Comment: Orquidea christyed via OM: Ordered Performed By: #### L 500.2500 ####[facility] [address] [place], [address] CO2 Normal 21.0-32.0 [facility] Comment on above: Result Comment: Canc elled via OM: MD Ordered Performed By: #### L 500.2500 ####[facility] [address] [place], [address] CREAT,SERUM Normal 0.70-1.20 [facility] Comment on above: Result Comment: Canc elled via OM: MD Ordered Performed By: #### L 500.2500 ####[facility] [address] [place], [address] eGFR Normal >60 [facility] Comment on above: Result Comment: Canc elled via OM: MD Ordered Performed By: #### L 500.2500 ####[facility] [address] [place], [address] GAP Normal 5-15 [facility] Comment on above: Result Comment: Canc elled via OM: MD Ordered Performed By: #### L 500.2500 ####[facility] [address] [place], [address] GLU Normal 70-99 [facility] Comment on above: Result Comment: Canc elled via OM: MD Ordered Performed By: #### L 500.2500 ####[facility] [address] [place], [address] Potassium Normal 3.3-5.1 [facility] Comment on above: Result Comment: Canc elled via OM: MD Ordered Performed By: #### L 500.2500 ####[facility] [address] [place], [address] Basic Metabolic Profile (BMP) Normal 133-145 [facility] Comment on above: Result Comment: Canc elled via OM: MD Ordered Performed By: #### L 500.2500 ####[facility] [address] [place], [address] BUN Normal 4-19 [facility] Comment on above: Result Comment: DUPL ICATE ORDER Performed By: #### L 100.0100, L500.2500 ####[facility] [address] [place], [address] BUN/CRE Normal 10-20 [facility] Comment on above: Result Comment: DUPL ICATE ORDER Performed By: #### L 100.0100, L500.2500 ####[facility] [address] [place], [address] Calcium Normal 7.6-11.0 [facility] Comment on above: Result Comment: DUPL ICATE ORDER Performed By: #### L 100.0100, L500.2500 ####[facility] [address] [place], [address] CL Normal 98-108 [facility] Comment on above: Result Comment: DUPL ICATE ORDER Performed By: #### L 100.0100, L500.2500 ####[facility] [address] [place], [address] CO2 Normal 21.0-32.0 [facility] Comment on above: Result Comment: DUPL ICATE ORDER Performed By: #### L 100.0100, L500.2500 ####[facility] [address] [place], [address] CREAT,SERUM Normal 0.70-1.20 [facility] Comment on above: Result Comment: DUPL ICATE ORDER Performed By: #### L 100.0100, L500.2500 ####[facility] [address] [place], [address] eGFR Normal >60 [facility] Comment on above: Result Comment: DUPL ICATE ORDER Performed By: #### L 100.0100, L500.2500 ####[facility] [address] [place], [address] GAP Normal 5-15 [facility] Comment on above: Result Comment: DUPL ICATE ORDER Performed By: #### L 100.0100, L500.2500 ####[facility] [address] [place], [address] GLU Normal 70-99 [facility] Comment on above: Result Comment: DUPL ICATE ORDER Performed By: #### L 100.0100, L500.2500 ####[facility] [address] [place], [address] Potassium Normal 3.3-5.1 [facility] Comment on above: Result Comment: DUPL ICATE ORDER Performed By: #### L 100.0100, L500.2500 ####[facility] [address] [place], [address] Basic Metabolic Profile (BMP) Normal 133-145 [facility] Comment on above: Result Comment: DUPL ICATE ORDER Performed By: #### L 100.0100, L500.2500 ####[facility] [address] [place], [address] BUN/CRE 13.2 RATIO Normal 10-20 [facility] Comment on above: Performed By: #### L 500.2500 ####[facility] [address] [place], [address] Calcium [Mass/Vol] 12.3 mg/dL High 7.6-11.0 [facility] Comment on above: Performed By: #### L 500.2500 ####[facility] [address] [place], [address] Chloride [Moles/Vol] 93 mmol/L Low 98-108 [facility] Comment on above: Performed By: #### L 500.2500 ####[facility] [address] [place], [address] CO2 [Moles/Vol] 21.4 mmol/L Normal 21.0-32.0 [facility] Comment on above: Performed By: #### L 500.2500 ####[facility] [address] [place], [address] Creatinine [Mass/Vol] 8.49 mg/dL Invalid Interpretation Code 0.70-1.20 [facility] Comment on above: Result Comment: Crit ical Result(s) Called at: by:??Results read back bysame.Critical Result(s) Called at: 0445 by:??ELIZABETH HUANG Results read back by same. Performed By: #### L 500.2500 ####[facility] [address] [place], [address] ECRCL 6.97 ml/min Invalid Interpretation Code 50-250 [facility] Comment on above: Performed By: #### L 500.2500 ####[facility] [address] [place], [address] GAP 14 Normal 5-15 [facility] Comment on above: Performed By: #### L 500.2500 ####[facility] [address] [place], [address] GFR/1.73 sq M.predicted among non-blacks MDRD (S/P/Bld) [Vol rate/Area] 6 mL/min/{1.73_m2} Low >60 [facility] Comment on above: Result Comment: mL/m in/1.73m2 CKD-EPI Creatinine Equation (2020) Performed By: #### L 500.2500 ####[facility] [address] [place], [address] Glucose [Mass/Vol] 72 mg/dL Normal 70-99 [facility] Comment on above: Performed By: #### L 500.2500 ####[facility] [address] [place], [address] Potassium [Moles/Vol] 4.4 mmol/L Normal 3.3-5.1 [facility] Comment on above: Performed By: #### L 500.2500 ####[facility] [address] [place], [address] Sodium [Moles/Vol] 129 mmol/L Low 133-145 [facility] Comment on above: Performed By: #### L 500.2500 ####[facility] [address] [place], [address] Urea nitrogen [Mass/Vol] 112 mg/dL Invalid Interpretation Code 06-18 [facility] Comment on above: Result Comment: Crit ical Result(s) Called at: 0445 by:??ELIZABETH HUANG Results read back by same. Performed By: #### L 500.2500 ####[facility] [address] [facility] [address] Basophil percentageOrdered B y: Claire Mazariegos on 12-04-2024 Basophils/100 WBC (Bld) 0.2 % 0-1 [facility] Bedside Glucoseon 12-04-2024 FINGERSTICK GLU 132 mg/dL High 74-106 [facility] Comment on above: Result Comment: ANA GEMENT OF PATIENT CARE PER NURSING PROTOCOL Performed By: #### L 501.080 ####[facility] [address] [facility] [address] FINGERSTICK GLU 104 mg/dL Normal 74-106 [facility] Comment on above: Result Comment: ANA GEMENT OF PATIENT CARE PER NURSING PROTOCOL Performed By: #### L 501.080 ####[facility] [address] [facility] [address] FINGERSTICK GLU 81 mg/dL Normal 74-106 [facility] Comment on above: Result Comment: ANA GEMENT OF PATIENT CARE PER NURSING PROTOCOL Performed By: #### L 501.080 ####[facility] [address] [place], [address] FINGERSTICK GLU 142 mg/dL High 74-106 [facility] Comment on above: Result Comment: ANA GEMENT OF PATIENT CARE PER NURSING PROTOCOL Performed By: #### L 501.080 ####[facility] [address] [place], [address] FINGERSTICK GLU 65 mg/dL Low 74-106 [facility] Comment on above: Result Comment: ANA GEMENT OF PATIENT CARE PER NURSING PROTOCOL Performed By: #### L 501.080 ####[facility] [address] [place], [address] CBC W/Diff, Automatedon 10-0 5-202 Absolute Lymph 0.77 X10 3/uL Low 0.83-4.51 [facility] Comment on above: Performed By: #### L 100.0100, L500.2500 ####[facility] [address] [place], [address] Absolute Neut 4.9 X10 3/uL Normal 2.0-7.7 [facility] Comment on above: Performed By: #### L 100.0100, L500.2500 ####[facility] [address] [place], [address] Basophils/100 WBC (Bld) 0.2 % Normal 0-1 [facility] Comment on above: Performed By: #### L 100.0100, L500.2500 ####[facility] [address] [place], [address] Eosinophils/100 WBC (Bld) 1.4 % Normal 0-5 [facility] Comment on above: Performed By: #### L 100.0100, L500.2500 ####[facility] [address] [place], [address] Erythrocyte distribution width (RBC) [Ratio] 11.5 % Low 11.6-14.6 [facility] Comment on above: Performed By: #### L 100.0100, L500.2500 ####[facility] [address] [place], [address] Hematocrit (Bld) [Volume fraction] 21.3 % Low 40-54 [facility] Comment on above: Performed By: #### L 100.0100, L500.2500 ####[facility] [address] [place], [address] Hemoglobin (Bld) [Mass/Vol] 7.9 g/dL Low 13.0-16.5 [facility] Comment on above: Performed By: #### L 100.0100, L500.2500 ####[facility] [address] [place], [address] IG% 0.500 Normal 0.0-0.9 [facility] Comment on above: Result Comment: IG% - Immature Granulocytes (promyelocytes, myelocytes andmetamyelocytes) > 1% indicates that a LEFT SHIFT is Present. Performed By: #### L 100.0100, L500.2500 ####[facility] [address] [place], [address] Lymphocytes/100 WBC (Bld) 12.1 % Low 19-41 [facility] Comment on above: Performed By: #### L 100.0100, L500.2500 ####[facility] [address] [place], [address] MCH (RBC) [Entitic mass] 36.6 pg High 27.0-32.0 [facility] Comment on above: Performed By: #### L 100.0100, L500.2500 ####[facility] [address] [place], [address] MCHC (RBC) [Mass/Vol] 37.1 g/dL High 32-36 [facility] Comment on above: Performed By: #### L 100.0100, L500.2500 ####[facility] [address] [place], [address] MCV (RBC) [Entitic vol] 98.6 fL High 80-94 [facility] Comment on above: Performed By: #### L 100.0100, L500.2500 ####[facility] [address] [place], [address] Monocytes/100 WBC (Bld) 9.9 % Normal 0-10 [facility] Comment on above: Performed By: #### L 100.0100, L500.2500 ####[facility] [address] [place], [address] Neutrophils/100 WBC (Bld) 75.9 % High 47-70 [facility] Comment on above: Performed By: #### L 100.0100, L500.2500 ####[facility] [address] [place], [address] Nucleated RBC (Bld) [#/Vol] 0 10*3/uL Normal 0-5 [facility] Comment on above: Performed By: #### L 100.0100, L500.2500 ####[facility] [address] [place], [address] Platelet mean volume (Bld) [Entitic vol] 9.7 fL Normal 6.2-12.0 [facility] Comment on above: Performed By: #### L 100.0100, L500.2500 ####[facility] [address] [place], [address] Platelets (Bld) [#/Vol] 134 10*3/uL Low 150-450 [facility] Comment on above: Performed By: #### L 100.0100, L500.2500 ####[facility] [address] [place], [address] RBC (Bld) [#/Vol] 2.16 10*6/uL Low 4.6-6.2 [facility] Comment on above: Performed By: #### L 100.0100, L500.2500 ####[facility] [address] [place], [address] RDW SD 41.4 fl Normal 35.1-43.9 [facility] Comment on above: Performed By: #### L 100.0100, L500.2500 ####[facility] [address] [place], [address] WBC (Bld) [#/Vol] 6.4 10*3/uL Normal 4.4-11.0 [facility] Comment on above: Performed By: #### L 100.0100, L500.2500 ####[facility] [address] [place], [address] Calculated very low density lipoprotein (VLDL) cholesterol measurementOrdered By: Claire Mazariegos on 12-04-2024 Calculated very low density lipoprotein (VLDL) cholesterol measurement 21 mg/dL 5-40 [facility] Consultation - Nephrologyon 12-04-2024 Consultation - Nephrology Normal [facility] Eosinophil percentageOrdered By: Claire Mazariegos on 12-04-2024 Eosinophils/100 WBC (Bld) 1.4 % 0-5 [facility] Immature granulocytes/100 WB C Auto (Bld)Ordered By: Claire Mazariegos on 12-04-2024 Immature granulocytes/100 WBC (Bld) 0.500 % 0.0-0.9 [facility] Comment on above: IG% - Immature Granu locytes (promyelocytes, myelocytes and metamyelocytes) > 1% indicates that a LEFT SHIFT is Present. LDL calc ser/plasOrdered By: Claire Mazariegos on 12-04-2024 Cholesterol in LDL [Mass/Vol] 7 mg/dL Normal [facility] Comment on above: Lwqthbadwa=828-601 m g/dL & Higher Uopq=222 mg/dL or greaterFriedwald Equation for LDL-C Result Comment: Bord jmrxmm=994-024 mg/dL Higher Hain=781 mg/dL or greaterFriedwald Equation for LDL-C Performed By: #### L 500.4100 ####[facility] [address] [place], [place], [address] Lipid Profileon 12-04-2024 CHOL:HDL 2.09 Normal [facility] Comment on above: Performed By: #### L 500.4100 ####[facility] [address] [place], [place], [address] Cholesterol in VLDL [Mass/Vol] 21 mg/dL Normal 5-40 [facility] Comment on above: Performed By: #### L 500.4100 ####[facility] [address] [place], [place], [address] Monocyte percentageOrdered B y: Claire Mazariegos on 12-04-2024 Monocytes/100 WBC (Bld) 9.9 % 0-10 [facility] Neutrophil percentageOrdered By: Claire Mazariegos on 12-04-2024 Neutrophils/100 WBC (Bld) 75.9 % High 47-70 [facility] Nucleated red blood cell per centageOrdered By: Claire Mazariegos on 12-04-2024 Nucleated RBC/100 WBC (Bld) [Ratio] 0 % 0-5 [facility] Screening total cholesterol/ high density lipoprotein (HDL) cholesterol ratioOrdered By: Claire Mazariegos on 12-04-2024 Cholesterol.total/Maxine sterol in HDL [Mass ratio] 2.09 {ratio} [facility] Serum or plasma cholesterol in HDL measurement (mass/volume)Ordered By: Claire Mazariegos on 12-04-2024 Cholesterol in HDL [Mass/Vol] 25 mg/dL Low [facility] Comment on above: National Cholesterol Education Program (NCEP) guidelines:<40 mg/dL: Low HDL-cholesterol (major risk factor for CHD)>= 60 mg/dL: High HDL-cholesterol (negative risk factor for CHD)HDL-cholesterol is affected by a number of factors, e.g. smoking, exercise, hormones, sex and age. Result Comment: Kera onjarad Cholesterol Education Program (NCEP) guidelines:<40 mg/dL: Low HDL-cholesterol (major risk factor for CHD)>= 60 mg/dL: High HDL-cholesterol (negative risk factor forCHD)HDL-cholesterol is affected by a number of factors, e.g.smoking, exercise, hormones, sex and age. Performed By: #### L 500.4100 ####[facility] [address] [place], [place], [address] Serum or plasma cholesterol measurement (mass/volume)Ordered By: Claire Mazariegos on 12-04-2024 Cholesterol [Mass/Vol] 53 mg/dL Normal <=200 [facility] Comment on above: Cholesterol level, D esirable <200 mg/dLBorderline high cholesterol 200-239 mg/dLHigh cholesterol >=240 mg/dLRecommendations of the NCEP Adult Treatment Panel for the following risk-cutoff thresholds for the [place] population. Result Comment: Chol esterol level, Desirable <200 mg/dLBorderline high cholesterol 200-239 mg/dLHigh cholesterol >=240 mg/dLRecommendations of the NCEP Adult Treatment Panel for thefollowing risk-cutoff thresholds for the [place] Americanpopulation. Performed By: #### L 500.4100 ####[facility] [address] [place], [place], [id number] Triglycerides measurementOrd ered By: Claire Mazariegos on 12-04-2024 Triglyceride [Mass/Vol] 103 mg/dL Normal [facility] Comment on above: The drugs N-Acetylcy steine and Metamizole may falsely depress this assay. Normal range: <150 mg/dLBorderline High: 150-199 mg/dLHigh: 200-499 mg/dLVery High: >500 mg/dL Result Comment: The drugs N-Acetylcysteine and Metamizole may falselydepress this assay.Normal range: <150 mg/dLBorderline High: 150-199 mg/dLHigh: 200-499 mg/dLVery High: >500 mg/dL Performed By: #### L 500.4100 ####[facility] [address] [place], [place], [address] Urine Cultureon 12-04-2024 URC Culture exhibits no growth. Normal [facility] Comment on above: Performed By: #### L 501.7400, L502.0250, L501.1200, L502.0715, L500.9400, M100.2200, L400.0001 ####[facility] [address] [place], [address] 24 hour urine alpha 2 globul in/total protein ratio by electrophoresis (mass fraction)Ordered By: Claire Mazariegos on 12-03-2024 Alpha 2 globulin Elph (24H U) [Mass fraction] 4.2 % . [facility] 24 hour urine beta globulin/ total protein ratio by electrophoresis (mass fraction)Ordered By: Claire Mazariegos on 12-03-2024 Beta globulin Elph (24H U) [Mass fraction] 11.1 % . [facility] 24 hour urine gamma globulin /total protein ratio by electrophoresis (mass fraction)Ordered By: Cliare Mazariegos on 12-03-2024 Gamma globulin Elph (24H U) [Mass fraction] 63.6 % . [facility] Albumin Elph [Mass/Vol]Order ed By: Claire Mazariegos on 12-03-2024 Albumin [Mass/Vol] 2.9 g/dL 2.9-4.4 [facility] Basic Metabolic Profile (BMP )on 12-03-2024 BUN Normal 4-19 [facility] Comment on above: Result Comment: DUPL ICATE ORDER Performed By: #### L 500.2500 ####[facility] [address] [place], [address] BUN/CRE Normal 10-20 [facility] Comment on above: Result Comment: DUPL ICATE ORDER Performed By: #### L 500.2500 ####[facility] [address] [place], [address] Calcium Normal 7.6-11.0 [facility] Comment on above: Result Comment: DUPL ICATE ORDER Performed By: #### L 500.2500 ####[facility] [address] [place], [address] CL Normal 98-108 [facility] Comment on above: Result Comment: DUPL ICATE ORDER Performed By: #### L 500.2500 ####[facility] [address] [place], [address] CO2 Normal 21.0-32.0 [facility] Comment on above: Result Comment: DUPL ICATE ORDER Performed By: #### L 500.2500 ####[facility] [address] [place], [address] CREAT,SERUM Normal 0.70-1.20 [facility] Comment on above: Result Comment: DUPL ICATE ORDER Performed By: #### L 500.2500 ####[facility] [address] [place], [address] eGFR Normal >60 [facility] Comment on above: Result Comment: DUPL ICATE ORDER Performed By: #### L 500.2500 ####[facility] [address] [place], [address] GAP Normal 5-15 [facility] Comment on above: Result Comment: DUPL ICATE ORDER Performed By: #### L 500.2500 ####[facility] [address] [place], [address] GLU Normal 70-99 [facility] Comment on above: Result Comment: DUPL ICATE ORDER Performed By: #### L 500.2500 ####[facility] [address] [place], [address] Potassium Normal 3.3-5.1 [facility] Comment on above: Result Comment: DUPL ICATE ORDER Performed By: #### L 500.2500 ####[facility] [address] [place], [address] Basic Metabolic Profile (BMP) Normal 133-145 [facility] Comment on above: Result Comment: DUPL ICATE ORDER Performed By: #### L 500.2500 ####[facility] [address], [address] BUN/CRE 13.1 RATIO Normal 10-20 [facility] Comment on above: Performed By: #### L 500.2500 ####[facility] [address] [place], [address] Calcium [Mass/Vol] 13.0 mg/dL Invalid Interpretation Code 7.6-11.0 [facility] Comment on above: Result Comment: Crit ical Result(s) Called at: by:??Results read back bysame.Critical Result(s) Called EAFFOLTER at: 2127 by:BWORKMAN??Results read back by same. Performed By: #### L 500.2500 ####[facility] [address] [place], [address] Chloride [Moles/Vol] 88 mmol/L Low 98-108 [facility] Comment on above: Performed By: #### L 500.2500 ####[facility] [address] [place], [address] CO2 [Moles/Vol] 18.5 mmol/L Low 21.0-32.0 [facility] Comment on above: Performed By: #### L 500.2500 ####[facility] [address] [place], [address] Creatinine [Mass/Vol] 8.45 mg/dL Invalid Interpretation Code 0.70-1.20 [facility] Comment on above: Result Comment: Crit ical Result(s) Called at: by:??Results read back bysame.Critical Result(s) Called EAFFOLTER at: 2127 by:BWORKMAN??Results read back by same. Performed By: #### L 500.2500 ####[facility] [address], [address] ECRCL 7.08 ml/min Invalid Interpretation Code 50-250 [facility] Comment on above: Performed By: #### L 500.2500 ####[facility] [address] [place], [address] GAP 20 High 5-15 [facility] Comment on above: Performed By: #### L 500.2500 ####[facility] [address] [place], [address] GFR/1.73 sq M.predicted among non-blacks MDRD (S/P/Bld) [Vol rate/Area] 6 mL/min/{1.73_m2} Low >60 [facility] Comment on above: Result Comment: mL/m in/1.73m2 CKD-EPI Creatinine Equation (2020) Performed By: #### L 500.2500 ####[facility] [address] [place], [address] Glucose [Mass/Vol] 82 mg/dL Normal 70-99 [facility] Comment on above: Performed By: #### L 500.2500 ####[facility] [address] [place], [address] Potassium [Moles/Vol] 4.1 mmol/L Normal 3.3-5.1 [facility] Comment on above: Performed By: #### L 500.2500 ####[facility] [address] [place], [address] Sodium [Moles/Vol] 127 mmol/L Low 133-145 [facility] Comment on above: Performed By: #### L 500.2500 ####[facility] [address] [place], [address] Urea nitrogen [Mass/Vol] 111 mg/dL Invalid Interpretation Code 06-18 [facility] Comment on above: Result Comment: Crit ical Result(s) Called EANETER at: 2128 by:WYATT??Results read back by same. Performed By: #### L 500.2500 ####[facility] [address] [place], [address] BUN Normal - [facility] Comment on above: Result Comment: DUPL ICATE ORDER Performed By: #### L 500.2500 ####[facility] [address] [place], [address] BUN/CRE Normal 10-20 [facility] Comment on above: Result Comment: DUPL ICATE ORDER Performed By: #### L 500.2500 ####[facility] [address] [place], [address] Calcium Normal 7.6-11.0 [facility] Comment on above: Result Comment: DUPL ICATE ORDER Performed By: #### L 500.2500 ####[facility] [address] [place], [address] CL Normal 98-108 [facility] Comment on above: Result Comment: DUPL ICATE ORDER Performed By: #### L 500.2500 ####[facility] [address] [place], [address] CO2 Normal 21.0-32.0 [facility] Comment on above: Result Comment: DUPL ICATE ORDER Performed By: #### L 500.2500 ####[facility] [address] [place], [address] CREAT,SERUM Normal 0.70-1.20 [facility] Comment on above: Result Comment: DUPL ICATE ORDER Performed By: #### L 500.2500 ####[facility] [address] [place], [address] eGFR Normal >60 [facility] Comment on above: Result Comment: DUPL ICATE ORDER Performed By: #### L 500.2500 ####[facility] [address] [place], [address] GAP Normal 5-15 [facility] Comment on above: Result Comment: DUPL ICATE ORDER Performed By: #### L 500.2500 ####[facility] [address] [place], [address] GLU Normal 70-99 [facility] Comment on above: Result Comment: DUPL ICATE ORDER Performed By: #### L 500.2500 ####[facility] [address] [place], [address] Potassium Normal 3.3-5.1 [facility] Comment on above: Result Comment: DUPL ICATE ORDER Performed By: #### L 500.2500 ####[facility] [address] [place], [address] Basic Metabolic Profile (BMP) Normal 133-145 [facility] Comment on above: Result Comment: DUPL ICATE ORDER Performed By: #### L 500.2500 ####[facility] [address] [place], [address] Bedside Glucoseon 12-03-2024 FINGERSTICK GLU 75 mg/dL Normal 74-106 [facility] Comment on above: Result Comment: ANA GEMENT OF PATIENT CARE PER NURSING PROTOCOL Performed By: #### L 501.080 ####[facility] [address] [place], [address] FINGERSTICK GLU 49 mg/dL Low 74-106 [facility] Comment on above: Result Comment: ANA GEMENT OF PATIENT CARE PER NURSING PROTOCOL Performed By: #### L 501.080 ####[facility] [address] [place], [address] FINGERSTICK GLU 56 mg/dL Low 74-106 [facility] Comment on above: Result Comment: ANA GEMENT OF PATIENT CARE PER NURSING PROTOCOL Performed By: #### L 501.080 ####[facility] [address] [place], [address] Bilirubin Test strip Ql (U)O rdered By: Claire Mazariegos on 12-03-2024 Bilirubin Ql (U) Negative Negative [facility] Bilirubin, totalOrdered By: Omari Luna on 12-03-2024 Bilirubin [Mass/Vol] 0.70 mg/dL 0.00-1.30 [facility] CBC W/Diff, Automatedon 10-0 4-2025 Absolute Lymph 1.13 X10 3/uL Normal 0.83-4.51 [facility] Comment on above: Performed By: #### L 100.0100, L501.2450, L500.4050 ####[facility] [address] [place], [address] Absolute Neut 6.2 X10 3/uL Normal 2.0-7.7 [facility] Comment on above: Performed By: #### L 100.0100, L501.2450, L500.4050 ####[facility] [address] [place], [address] Basophils/100 WBC (Bld) 0.1 % Normal 0-1 [facility] Comment on above: Performed By: #### L 100.0100, L501.2450, L500.4050 ####[facility] [address], [address] Eosinophils/100 WBC (Bld) 0.2 % Normal 0-5 [facility] Comment on above: Performed By: #### L 100.0100, L501.2450, L500.4050 ####[facility] [address] [place], [address] Erythrocyte distribution width (RBC) [Ratio] 11.3 % Low 11.6-14.6 [facility] Comment on above: Performed By: #### L 100.0100, L501.2450, L500.4050 ####[facility] [address] [place], [address] Hematocrit (Bld) [Volume fraction] 28.9 % Low 40-54 [facility] Comment on above: Performed By: #### L 100.0100, L501.2450, L500.4050 ####[facility] [address] [place], [address] Hemoglobin (Bld) [Mass/Vol] 10.7 g/dL Low 13.0-16.5 [facility] Comment on above: Performed By: #### L 100.0100, L501.2450, L500.4050 ####[facility] [address] [place], [address] IG% 0.400 Normal 0.0-0.9 [facility] Comment on above: Result Comment: IG% - Immature Granulocytes (promyelocytes, myelocytes andmetamyelocytes) > 1% indicates that a LEFT SHIFT is Present. Performed By: #### L 100.0100, L501.2450, L500.4050 ####[facility] [address] [place], [address] Lymphocytes/100 WBC (Bld) 14.1 % Low 19-41 [facility] Comment on above: Performed By: #### L 100.0100, L501.2450, L500.4050 ####[facility] [address] [place], [address] MCH (RBC) [Entitic mass] 36.1 pg High 27.0-32.0 [facility] Comment on above: Performed By: #### L 100.0100, L501.2450, L500.4050 ####[facility] [address] [place], [address] MCHC (RBC) [Mass/Vol] 37.0 g/dL High 32-36 [facility] Comment on above: Performed By: #### L 100.0100, L501.2450, L500.4050 ####[facility] [address] [place], [address] MCV (RBC) [Entitic vol] 97.6 fL High 80-94 [facility] Comment on above: Performed By: #### L 100.0100, L501.2450, L500.4050 ####[facility] [address] [place], [address] Monocytes/100 WBC (Bld) 8.6 % Normal 0-10 [facility] Comment on above: Performed By: #### L 100.0100, L501.2450, L500.4050 ####[facility] [address] [place], [address] Neutrophils/100 WBC (Bld) 76.6 % High 47-70 [facility] Comment on above: Performed By: #### L 100.0100, L501.2450, L500.4050 ####[facility] [address] [place], [address] Nucleated RBC (Bld) [#/Vol] 0 10*3/uL Normal 0-5 [facility] Comment on above: Performed By: #### L 100.0100, L501.2450, L500.4050 ####[facility] [address] [place], [address] Platelet mean volume (Bld) [Entitic vol] 9.6 fL Normal 6.2-12.0 [facility] Comment on above: Performed By: #### L 100.0100, L501.2450, L500.4050 ####[facility] [address] [place], [address] Platelets (Bld) [#/Vol] 206 10*3/uL Normal 150-450 [facility] Comment on above: Performed By: #### L 100.0100, L501.2450, L500.4050 ####[facility] [address] [place], [address] RBC (Bld) [#/Vol] 2.96 10*6/uL Low 4.6-6.2 [facility] Comment on above: Performed By: #### L 100.0100, L501.2450, L500.4050 ####[facility] [address] [place], [address] RDW SD 40.3 fl Normal 35.1-43.9 [facility] Comment on above: Performed By: #### L 100.0100, L501.2450, L500.4050 ####[facility] [address] [place], [address] WBC (Bld) [#/Vol] 8.0 10*3/uL Normal 4.4-11.0 [facility] Comment on above: Performed By: #### L 100.0100, L501.2450, L500.4050 ####[facility] [address] [place], [address] CPK Total, Creatine Kinaseon 12-03-2024 CPK TOTAL 47 U/L Normal 24-195 [facility] Comment on above: Order Comment: Comme nts: may add to ED labs Performed By: #### L 501.3620, L501.7300, L3600.4000, L501.5200, L501.9520, L509.1000, L3100.3425, L506.1001, L501.2300 ####[facility] [address] [place], [address] Chest PA and Lateralon 12-03 Chest PA and Lateral Normal [facility] Comprehensive Metabolic Prof ilon 12-03-2024 Urea nitrogen [Mass/Vol] 113 mg/dL Invalid Interpretation Code 4-19 [facility] Comment on above: Result Comment: Crit ical Result(s) Called AHAGGARTY at: 1608 by:WYATT??Results read back by same. Performed By: #### L 100.0100, L501.2450, L500.4050 ####[facility] [address] [place], [address] Creatinine, Urine (random)on 12-03-2024 UR CREAT 50.10 mg/dL Normal 39.00-259.00 [facility] Comment on above: Performed By: #### L 501.7400, L502.0250, L501.1200, L502.0715, L500.9400, M100.2200, L400.0001 ####[facility] [address] [place], [place], [address] Emergency Department Summary on 12-03-2024 Emergency Department Summary Normal [facility] H AND P Exam - Hospitaliston 12-03-2024 H&P Exam - Hospitalist Normal [facility] Interpretation of serum or p lasma protein pattern by immunofixation (narrative resultOrdered By: Claire Mazariegos on 12-03-2024 Protein Fractions Immunofixation Don [Interp] Comment: g/dL Not Observed [facility] Ketones Test strip Ql (U)Ord ered By: Claire Mazariegos on 12-03-2024 Ketones Ql (U) Negative Negative [facility] Laboratory - Chemistry and C hemistry - challengeOrdered By: Omari Luna on 12-03-2024 AST [Catalytic activity/Vol] 29 U/L <38 [facility] Lipaseon 12-03-2024 Lipase [Catalytic activity/Vol] 57 U/L Normal 13-75 [facility] Comment on above: Result Comment: Plepawel de la rosa note:LIPASE revised reference range effective 22.New Lipase methodology. Expected to produce lower valuesthan the previous assay method.NEW Reference Range: 13 - 75 U/L Performed By: #### L 100.0100, L501.2450, L500.4050 ####[facility] [address] [place], [place], [address] Lipase measurementOrdered By : Omari Luna on 12-03-2024 Lipase [Catalytic activity/Vol] 57 U/L 13-75 [facility] Comment on above: Please note:LIPASE r evised reference range effective 22. New Lipase methodology. Expected to produce lower values than the previous assay method. NEW Reference Range: 13 - 75 U/L Magnesiumon 12-03-2024 Magnesium [Mass/Vol] 5.4 mg/dL Invalid Interpretation Code 1.5-2.2 [facility] Comment on above: Order Comment: Comme nts: may add to ED labs Result Comment: Crit ical Result(s) Called CLIVE at: 1955 by:WYATT??Results read back by same. Performed By: #### L 501.3620, L501.7300, L3600.4000, L501.5200, L501.9520, L509.1000, L3100.3425, L506.1001, L501.2300 ####[facility] [address] [place], [place], [address] Magnesium measurement (mass/ volume)Ordered By: Claire Mazariegos on 12-03-2024 Magnesium (Unsp spec) [Mass/Vol] 5.4 mg/dL Critically high 1.5-2.2 [facility] Comment on above: Critical Result(s) C alled CLIVE at: 1955 by: WYATT Results read back by same. Microalb:Creat Ratio,Random URon 12-03-2024 MALB:CREAT 201.6 mg/g CRE High <30 mg/g CRE [facility] Comment on above: Performed By: #### L 501.7400, L502.0250, L501.1200, L502.0715, L500.9400, M100.2200, L400.0001 ####[facility] [address] [place], [place], [address] MICROALBUMIN,UR 101.0 mg/L Normal <20 mg/L [facility] Comment on above: Performed By: #### L 501.7400, L502.0250, L501.1200, L502.0715, L500.9400, M100.2200, L400.0001 ####[facility] [address] [place], [place], [address] Microscopic analysis of urin e for red blood cells (RBC)Ordered By: Claire Mazariegos on 12-03-2024 Microscopic analysis of urine for red blood cells (RBC) 10-25 SEEN /hpf 0-5 [facility] Mucus LM Ql (Urine sed)Order ed By: Claire Mazariegos on 12-03-2024 Mucus Ql (Urine sed) 0 SEEN /hpf [facility] Nitrite Test strip Ql (U)Ord ered By: Claire Mazariegos on 12-03-2024 Nitrite Ql (U) Negative Negative [facility] No Panel InformationOrdered By: Claire Mazariegos on 12-03-2024 Addendum Document Comment . [facility] Comment . [facility] Osmolality urOrdered By: Portillo Mazariegos on 12-03-2024 Osmolality (U) [Osmolality] 336 mOsm/KG >50 [facility] Comment on above: Normal Urine Referen ce Ranges Random: 50 - 1200 mOsm/kg H20 depending on fluid intake Random: >850 mOsm/kg after 12 hour fluid restriction 24 hour: ~300 - 900 mOsm/kg H2O Osmolality, Serumon 12-04-19 25 OSMOLALITY,SER 324 mOsm/KG High 280-301 [facility] Comment on above: Performed By: #### L 501.3620, L501.7300, L3600.4000, L501.5200, L501.9520, L509.1000, L3100.3425, L506.1001, L501.2300 ####[facility] [address] [place], [address] Osmolality, Urineon 12-04-19 25 OSMOLALITY,UR 336 mOsm/KG Normal [facility] Comment on above: Result Comment: Norm al Urine Reference Ranges Random: 50 - 1200 mOsm/kg H20 depending on fluid intake Random: >850 mOsm/kg after 12 hour fluid restriction 24 hour: 300 - 900 mOsm/kg H2O Performed By: #### L 501.7400, L502.0250, L501.1200, L502.0715, L500.9400, M100.2200, L400.0001 ####[facility] [address] [place], [address] PTHINon 12-03-2024 PTH 15 pg/mL Normal 11-61 [facility] Comment on above: Performed By: #### L 501.3620, L501.7300, L3600.4000, L501.5200, L501.9520, L509.1000, L3100.3425, L506.1001, L501.2300 ####[facility] [address] [facility] [address] [place], [place], [address] Phosphoruson 12-03-2024 Phosphate [Mass/Vol] 5.6 mg/dL High 2.7-4.5 [facility] Comment on above: Order Comment: Comme nts: may add to ED labs Performed By: #### L 501.3620, L501.7300, L3600.4000, L501.5200, L501.9520, L509.1000, L3100.3425, L506.1001, L501.2300 ####[facility] [address] [place], [place], [address] Protein Test strip Ql (U)Ord ered By: Claire Mazariegos on 12-03-2024 Protein Ql (U) 30 mg/dl High Negative [facility] Random urine creatinine darell urement (mass/volume)Ordered By: Claire Mazariegos on 12-03-2024 Creatinine Unsp time (U) [Mass/Vol] 50.10 mg/dL 39.00-259.00 [facility] Serum globulin measurementOr dered By: Omari Luna on 12-03-2024 Globulin (S) [Mass/Vol] 6.1 g/dL High 2.2-4.2 [facility] Serum or plasma IgA measurem ent (mass/volume)Ordered By: Claire Mazariegos on 12-03-2024 IgA [Mass/Vol] 3265 mg/dL High 61-437 [facility] Serum or plasma IgG measurem ent (mass/volume)Ordered By: Claire Mazariegos on 12-03-2024 IgG [Mass/Vol] 326 mg/dL Low 603-1613 [facility] Serum or plasma alanine saunders otransferase (ALT) measurementOrdered By: Omari Luna on 12-03-2024 ALT [Catalytic activity/Vol] 25 U/L <47 [facility] Serum or plasma albumin darell urement (mass/volume)Ordered By: Omari Luna on 12-03-2024 Albumin [Mass/Vol] 3.6 g/dL 3.4-4.8 [facility] Serum or plasma albumin/glob ulin mass ratioOrdered By: Omari Luna on 12-03-2024 Albumin/Globulin [Mass ratio] 0.6 {ratio} Low 0.9-2.4 [facility] Serum or plasma alkaline chelle sphatase measurementOrdered By: Omari Luna on 12-03-2024 ALP [Catalytic activity/Vol] 91 U/L 40-129 [facility] Serum or plasma alpha 1 glob ulin measurement by electrophoresis (mass/volume)Ordered By: Claire Mazariegos on 12-03-2024 Alpha 1 globulin Elph [Mass/Vol] 0.3 g/dL 0.0-0.4 [facility] Alpha 1 globulin Elph [Mass/Vol] 0.7 g/dL 0.4-1.0 [facility] Serum or plasma beta globuli n measurement by electrophoresis (mass/volume)Ordered By: Claire Mazariegos on 12-03-2024 Beta globulin Elph [Mass/Vol] 3.6 g/dL High 0.7-1.3 [facility] Serum or plasma creatine kin ase activityOrdered By: Claire Mazariegos on 12-03-2024 CK [Catalytic activity/Vol] 47 U/L 24-195 [facility] Serum or plasma gamma globul in measurement by electrophoresis (mass/volume)Ordered By: Claire Mazariegos on 12-03-2024 Gamma globulin Elph [Mass/Vol] 0.3 g/dL Low 0.4-1.8 [facility] Serum or plasma immunoelectr ophoresis interpretation (nominal result)Ordered By: Claire Mazariegos on 12-03-2024 Interpretation IEP [Interp] Comment High . [facility] Serum or plasma protein darell urement (mass/volume)Ordered By: Claire Mazariegos on 12-03-2024 Protein [Mass/Vol] 7.8 g/dL 6.0-8.5 [facility] Squamous epithelial cells de tection in urine sediment by light microscopyOrdered By: Claire Mazariegos on 12-03-2024 Epithelial cells.squamous LM Ql (Urine sed) 0-5 SEEN /hpf 0-5 [facility] TSH DL <= 0.005 mIU/L QnOrde red By: Claire Mazariegos on 12-03-2024 TSH Qn 0.591 uIU/mL 0.300-4.200 [facility] Thyroid Stim Hormone (TSH)on 12-03-2024 TSH 0.591 uIU/mL Normal 0.300-4.200 [facility] Comment on above: Order Comment: Comme nts: may add to ED labs Performed By: #### L 501.3620, L501.7300, L3600.4000, L501.5200, L501.9520, L509.1000, L3100.3425, L506.1001, L501.2300 ####[facility] [address] [place], [place], [id number] Total proteinOrdered By: Devonte Luna on 12-03-2024 Protein [Mass/Vol] 9.6 g/dL High 5.9-8.4 [facility] Urea Nitrogen, Urineon 12-03 URINE UREA 406 mg/dL Normal NO RANGE EST. [facility] Comment on above: Performed By: #### L 501.7400, L502.0250, L501.1200, L502.0715, L500.9400, M100.2200, L400.0001 ####[facility] [address] [place], [place], [id number] Urinalysis, Completeon 12-03 BACTERIA RARE Normal None Seen [facility] Comment on above: Order Comment: TRU TER SPECIMEN Performed By: #### L 501.7400, L502.0250, L501.1200, L502.0715, L500.9400, M100.2200, L400.0001 ####[facility] [address] [place], [place], [id number] EPI,SQUAMOUS 0-5 SEEN Normal 0-5 [facility] Comment on above: Order Comment: TRU TER SPECIMEN Performed By: #### L 501.7400, L502.0250, L501.1200, L502.0715, L500.9400, M100.2200, L400.0001 ####[facility] [address] [place], [address] RBC 10-25 SEEN Normal 0-5 [facility] Comment on above: Order Comment: TRU TER SPECIMEN Performed By: #### L 501.7400, L502.0250, L501.1200, L502.0715, L500.9400, M100.2200, L400.0001 ####[facility] [address] [place], [address] WBC 0-5 SEEN Normal 0-5 [facility] Comment on above: Order Comment: TRU TER SPECIMEN Performed By: #### L 501.7400, L502.0250, L501.1200, L502.0715, L500.9400, M100.2200, L400.0001 ####[facility] [address] [place], [address] Mucus Ql (Urine sed) 0 SEEN Normal [facility] Comment on above: Order Comment: TRU TER SPECIMEN Performed By: #### L 501.7400, L502.0250, L501.1200, L502.0715, L500.9400, M100.2200, L400.0001 ####[facility] [address] [place], [address] Urine Electrolytes- Randomon 12-03-2024 Chloride,URINE 46 mmol/L Normal Not Establ. [facility] Comment on above: Performed By: #### L 501.7400, L502.0250, L501.1200, L502.0715, L500.9400, M100.2200, L400.0001 ####[facility] [address] [place], [address] Sodium (U) [Moles/Vol] 56 mmol/L Normal Not Establ. [facility] Comment on above: Performed By: #### L 501.7400, L502.0250, L501.1200, L502.0715, L500.9400, M100.2200, L400.0001 ####[facility] [address] [place], [place], [phone] UR K 25.6 mmol/L Normal Not Establ. [facility] Comment on above: Performed By: #### L 501.7400, L502.0250, L501.1200, L502.0715, L500.9400, M100.2200, L400.0001 ####[facility] [address] [place], [address] Urine albumin measurement [facility] detection limit of 20 mg/L or less (mass/volume)Ordered By: Claire Mazariegos on 12-03-2024 Albumin DL <= 20 mg/L (U) [Mass/Vol] 101.0 mg/L <20 mg/L [facility] Urine albumin/total protein mass ratio by electrophoresisOrdered By: Claire Mazariegos on 12-03-2024 Albumin Elph (U) [Mass fraction] 19.6 % . [facility] Urine alpha 1 globulin/total protein ratio by electrophoresis (mass fraction)Ordered By: Claire Mazairegos on 12-03-2024 Alpha 1 globulin Elph (U) [Mass fraction] 1.5 % . [facility] Urine clarityOrdered By: Portillo Mazariegos on 12-03-2024 Clarity (U) Clear Clear [facility] Urine color determinationOrd ered By: Claire Mazariegos on 12-03-2024 Color (U) Straw Yellow [facility] Urine cultureOrdered By: Portillo Mazariegos on 12-03-2024 Bacteria identified Cx Nom (U) Culture exhibits no growth. [facility] Bacteria identified Cx Nom (U) Culture exhibits no growth. [facility] Urine glucose detectionOrder ed By: Claire Mazariegos on 12-03-2024 Glucose Ql (U) Normal mg/dl Normal [facility] Urine leukocyte esterase det ection by dipstickOrdered By: Claire Mazariegos on 12-03-2024 Leukocyte esterase Test strip Ql (U) 25 /ul High Negative [facility] Urine monoclonal protein/tot al protein mass ratio by electrophoresisOrdered By: Claire Mazariegos on 10-04-2025 Protein.monoclonal Elph (U) [Mass fraction] See comment [facility] Urine pHOrdered By: Claire pisano on 12-03-2024 pH (U) 7.0 [pH] 5.0 - 8.0 [facility] Urine potassium measurement (moles/volume)Ordered By: Claire Mazariegos on 12-03-2024 Potassium (U) [Moles/Vol] 25.6 mmol/L Not Establ. [facility] Urine protein measurement (m ass/volume)Ordered By: Claire Mazariegos on 12-03-2024 Protein (U) [Mass/Vol] 87.9 mg/dL Not Estab. [facility] Urine sediment bacteria coun t by microscopy (number/high power field)Ordered By: Claire Mazariegos on 12-03-2024 Bacteria LM.HPF (Urine sed) [#/Area] RARE /hpf None Seen [facility] Urine sodium measurement (mo les/volume)Ordered By: Claire Mazariegos on 12-03-2024 Sodium (U) [Moles/Vol] 56 mmol/L Not Establ. [facility] Urine specific gravity measu rementOrdered By: Claire Mazariegos on 12-03-2024 Specific gravity (U) [Rel density] 1.010 1.002-1.030 [facility] Urine urobilinogen measureme ntOrdered By: Claire Mazariegos on 12-03-2024 Urobilinogen Ql (U) Normal mg/dl Normal [facility] Vitamin D,25 Hydroxyon 12-03 Vitamin D 25-OH 43.3 ng/mL Normal 30-100 [facility] Comment on above: Order Comment: Comme nts: may add to ED labs Result Comment: Nadine min D StatusDeficiency: <20 ng/mL (50nmol/L)Insufficiency: 20-30 ng/mL (50-75 nmol/L)Sufficiency: 30-100 ng/mL (75-250 nmol/L)Toxicity: >100 ng/mL (>250 nmol/L) Performed By: #### L 501.3620, L501.7300, L3600.4000, L501.5200, L501.9520, L509.1000, L3100.3425, L506.1001, L501.2300 ####[facility] [address] [place], [address] White blood cell countOrdere d By: Claire Mazariegos on 12-03-2024 White blood cell count 0-5 SEEN /hpf 0-5 [facility] Magnetic resonance imaging r eportOrdered By: Kushal Gomez on 11-25-2024 Study report [facility] Imaging Services [address] [place] [address] Spine Lumbar (Routine) MR#: [id number] Acct: [id number] Name: LINA VARGAS Rep #: [id number] : 1940 M 83 From: Dieter Gomez MD PCP: Dr. Luna Ashton, DO Status: RE G CLI Study:Spine Lumbar (Routine) Date of Exam: 11/25/24 Exam# [id number] Ordering Dr: Mita Feliciano [employer]-C PROCEDURE: MRI SPINE LUMBAR (ROUTINE) 11/25/2024 REASON [...] at L3-4. More mild elsewhere. Reading Location: [id number] CC: MANJU Feliciano; Dr. Luna Ashton, DO ~ Data Entry Email Processor: Signed [facility] Spine Lumbar (Routine)on Spine Lumbar (Routine) Normal [facility] Internal Medicine Office Vis iton 11-23-2024 Internal Medicine Office Visit Normal [facility] Lumbar Spine 2 or 3 Viewson 11-15-2024 Lumbar Spine 2 or 3 Views Normal [facility] Urgent Care Visit Reporton 0 11-15-2024 Urgent Care Visit Report Normal [facility] Cardiovascular stress test r eportOrdered By: Homer Grey on 10-19-2024 Study report [facility] Cardiovascular Services [address] [place] [address] MR#: [id number] Acct: [id number] Name: LINA VARGAS Rep #: [id number] : 1940 83 From: Homer Grey MD Primary Care: Dr. Luna Ashton DO Sta tus: REG CLI Referring Dr: Luna Ashton DO Sex: M C Stress Test Report [...] a moderate workload Clinical angina noted. 10/19/241828 Date _ Homer Grey MD CC: Dr. Luna Ashton DO ~ Date Dictated: 10/19/241825 Date Transcribed: 10/19/241825 Data Entry Email Processor: [place] Signed [facility] Work Phone: Stress Reporton 10-19-2024 Stress Report Normal [facility] Abdomen Limitedon 10-04-2024 Abdomen Limited Normal [facility] Internal Medicine Office Vis iton 09-29-2024 Internal Medicine Office Visit Normal [facility] Laboratory - Hematology and Cell countsOrdered By: Luna Ashton on 09-29-2024 HbA1c (Bld) [Mass fraction] 7.2 % High 4.2-6.3 [facility] No Panel InformationOrdered By: Luna Ashton on 09-29-2024 7.2 % High 4.2-6.3 [facility] Internal Medicine Office Vis iton 06-21-2024 Internal Medicine Office Visit Normal [facility] Laboratory - Hematology and Cell countsOrdered By: Luna Ashton on 06-21-2024 HbA1c (Bld) [Mass fraction] 6.9 % High 4.2-6.3 [facility] Comprehensive Metabolic Prof ilon 03-22-2024 Albumin [Mass/Vol] 3.7 g/dL Normal 3.2-5.0 [facility] Comment on above: Performed By: #### L 500.4100, L500.4050 ####[facility] [address] [place], [address] Albumin/Globulin [Mass ratio] 0.7 {ratio} Low 0.9-2.4 [facility] Comment on above: Performed By: #### L 500.4100, L500.4050 ####[facility] [address] [place], [address] ALK P 68 U/L Normal 45-117 [facility] Comment on above: Performed By: #### L 500.4100, L500.4050 ####[facility] [address] [place], [address] ALT [Catalytic activity/Vol] 36 U/L Normal 16-61 [facility] Comment on above: Performed By: #### L 500.4100, L500.4050 ####[facility] [address] [place], [address] AST [Catalytic activity/Vol] 23 U/L Normal 15-37 [facility] Comment on above: Performed By: #### L 500.4100, L500.4050 ####[facility] [address] [place], [address] Bilirubin [Mass/Vol] 0.60 mg/dL Normal 0.20-1.00 [facility] Comment on above: Result Comment: For patients on eltrombopag therapy, use of Dimension Ingraham TBIL is not recommended. Performed By: #### L 500.4100, L500.4050 ####[facility] [address] [place], [address] BUN/CRE 13.2 RATIO Normal 10-20 [facility] Comment on above: Performed By: #### L 500.4100, L500.4050 ####[facility] [address] [place], [address] CA,Total 10.2 mg/dL High 8.5-10.1 [facility] Comment on above: Performed By: #### L 500.4100, L500.4050 ####[facility] [address] [place], [address] Chloride [Moles/Vol] 103 mmol/L Normal 98-107 [facility] Comment on above: Performed By: #### L 500.4100, L500.4050 ####[facility] [address] [place], [address] CO2 [Moles/Vol] 25.0 mmol/L Normal 21.0-32.0 [facility] Comment on above: Performed By: #### L 500.4100, L500.4050 ####[facility] [address] [place], [address] Creatinine [Mass/Vol] 1.52 mg/dL High 0.70-1.30 [facility] Comment on above: Result Comment: The validity of the calculated GFR GFRAA in patients over70 years has not been determined. Clinical correlation isessential. Performed By: #### L 500.4100, L500.4050 ####[facility] [address] [place], [address] EST GFR - AA 57 mL/min Low >60 [facility] Comment on above: Result Comment: Afri can Iranian GFR Calc Performed By: #### L 500.4100, L500.4050 ####[facility] [address] [place], [address] GAP 9 Normal 5-15 [facility] Comment on above: Performed By: #### L 500.4100, L500.4050 ####[facility] [address] [place], [address] GFR/1.73 sq M.predicted among non-blacks MDRD (S/P/Bld) [Vol rate/Area] 47 mL/min/{1.73_m2} Low >60 [facility] Comment on above: Result Comment: Non- GFR Calc Performed By: #### L 500.4100, L500.4050 ####[facility] [address] [place], [address] Globulin (S) [Mass/Vol] 5.4 g/dL High 2.2-4.2 [facility] Comment on above: Performed By: #### L 500.4100, L500.4050 ####[facility] [address] [place], [address] Glucose [Mass/Vol] 106 mg/dL Normal 74-106 [facility] Comment on above: Result Comment: Fast ing Glucose result from 100 to 125 mg/dLsuggests IMPAIRED HOMEOSTASIS per A.D.A. criteria. Performed By: #### L 500.4100, L500.4050 ####[facility] [address] [place], [address] Potassium [Moles/Vol] 4.7 mmol/L Normal 3.5-5.1 [facility] Comment on above: Performed By: #### L 500.4100, L500.4050 ####[facility] [address] [place], [address] Sodium [Moles/Vol] 137 mmol/L Normal 136-145 [facility] Comment on above: Performed By: #### L 500.4100, L500.4050 ####[facility] [address] [place], [address] T PROT 9.1 g/dL High 6.4-8.2 [facility] Comment on above: Performed By: #### L 500.4100, L500.4050 ####[facility] [address] [place], [address] Urea nitrogen [Mass/Vol] 20 mg/dL High 7-18 [facility] Comment on above: Performed By: #### L 500.4100, L500.4050 ####[facility] [address] [place], [address] Internal Medicine Office Vis iton 03-22-2024 Internal Medicine Office Visit Normal [facility] Lipid Profileon 03-22-2024 Cholesterol [Mass/Vol] 93 mg/dL Normal 200 [facility] Comment on above: Result Comment: <200 mg/dL Desirable 200-240 mg/dL Borderline >240 mg/dL High Risk Performed By: #### L 500.4100, L500.4050 ####[facility] [address] [place], [address] Cholesterol in HDL [Mass/Vol] 34 mg/dL Low [facility] Comment on above: Result Comment: The drugs N-Acetylcysteine and Metamizole may falselydepress this assay. Reference Range HDL <40 mg/dL Low HDL Cholesterol HDL >or= 60 mg/dL High HDL Cholesterol Performed By: #### L 500.4100, L500.4050 ####[facility] [address] [place], [address] Cholesterol in LDL [Mass/Vol] 27 mg/dL Normal 0-130 [facility] Comment on above: Performed By: #### L 500.4100, L500.4050 ####[facility] [address] [place], [address] Cholesterol in VLDL [Mass/Vol] 32 mg/dL Normal 5-40 [facility] Comment on above: Performed By: #### L 500.4100, L500.4050 ####[facility] [address] [place], [address] Triglyceride [Mass/Vol] 161 mg/dL Normal [facility] Comment on above: Result Comment: The drugs N-Acetylcysteine and Metamizole may falselydepress this assay.Serum Triglycerides Reference Interval Normal <150 mg/dL Borderline high 150 - 199 mg/dL High 200 - 499 mg/dL Very High > or = 500 mg/dL Performed By: #### L 500.4100, L500.4050 ####[facility] [address] [place], [address] Microalb:Creat Ratio,Random URon 03-22-2024 Creatinine [Mass/Vol] 124.00 mg/dL Normal NO RAN GE EST. [facility] Comment on above: Performed By: #### L 502.0250 ####[facility] [address] [place], [address] MALB:CRE 370.2 mg/g CRE High <30 mg/g CRE [facility] Comment on above: Performed By: #### L 502.0250 ####[facility] [address] [place], [address] MICROALBUMIN,UR 459.0 mg/L Normal NO RANGE EST. [facility] Comment on above: Performed By: #### L 502.0250 ####[facility] [address] [place], [address] Basophil percentageOrdered B y: Luna Brown on 12-10-2022 Bilirubin [Mass/Vol] 0.70 mg/dL 0.20-1.00 [facility] Comment on above: For patients on eltr ombopag therapy, use of Dimension Ingraham TBIL is not recommended. Chloride [Moles/Vol] 100 mmol/L 98-107 [facility] Cholesterol [Mass/Vol] 107 mg/dL <200 [facility] Comment on above: <200 mg/dL Desirable 200-240 mg/dL Borderline >240 mg/dL High Risk Glucose [Mass/Vol] 168 mg/dL 74-106 [facility] Comment on above: Fasting Glucose resu lt greater than or equal to 126 mg/dL suggests DIABETES MELLITUS per A.D.A. criteria. Potassium [Moles/Vol] 4.2 mmol/L 3.5-5.1 [facility] Protein [Mass/Vol] 8.3 g/dL 6.4-8.2 [facility] Sodium [Moles/Vol] 133 mmol/L 136-145 [facility] Triglyceride [Mass/Vol] 124 mg/dL <199 [facility] Comment on above: The drugs N-Acetylcy steine and Metamizole may falsely depress this assay.Serum Triglycerides Reference Interval Normal <150 mg/dL Borderline high 150 - 199 mg/dL High 200 - 499 mg/dL Very High > or = 500 mg/dL Laboratory - Chemistry and C hemistry - challengeOrdered By: Luna Ashton on 12-10-2022 ALP [Catalytic activity/Vol] 68 U/L 45-117 [facility] ALT [Catalytic activity/Vol] 46 U/L 16-61 [facility] CO2 [Moles/Vol] 25.0 mmol/L 21.0-32.0 [facility] Globulin (S) [Mass/Vol] 4.5 g/dL 2.2-4.2 [facility] Urea nitrogen/Creatinine [Mass ratio] 13.6 mg/mg 10-20 [facility] No Panel InformationOrdered By: Luna Ashton on 12-10-2022 Estimated GFR (MDRD) Amer 62 mL/min >60 [facility] Comment on above: GFR Calc Estimated GFR (MDRD) Non-Af Amer 52 mL/min >60 [facility] Comment on above: Non- GFR Calc Serum or plasma albumin darell urement (mass/volume)Ordered By: Luna Ashton on 12-10-2022 Albumin [Mass/Vol] 3.8 g/dL 3.2-5.0 [facility] Serum or plasma albumin/glob ulin mass ratioOrdered By: Luna Ashton on 12-10-2022 Albumin/Globulin [Mass ratio] 0.8 {ratio} 0.9-2.4 [facility] Serum or plasma calcium darell urement (mass/volume)Ordered By: Luna Ashton on 12-10-2022 Calcium [Mass/Vol] 9.8 mg/dL 8.5-10.1 [facility] Serum or plasma cholesterol in HDL measurement (mass/volume)Ordered By: Luna Ashton on 12-10-2022 Cholesterol in HDL [Mass/Vol] 32 mg/dL >40 [facility] Comment on above: The drugs N-Acetylcy steine and Metamizole may falsely depress this assay. Reference Range HDL <40 mg/dL Low HDL Cholesterol HDL >or= 60 mg/dL High HDL Cholesterol Serum or plasma cholesterol in VLDL measurement (mass/volume)Ordered By: Luna Ashton on 12-10-2022 Cholesterol in VLDL [Mass/Vol] 25 mg/dL 5-40 [facility] Serum or plasma creatinine m easurement (mass/volume)Ordered By: Luna Ashton on 12-10-2022 Creatinine [Mass/Vol] 1.40 mg/dL 0.70-1.30 [facility] Comment on above: The validity of the calculated GFR & GFRAA in patients over 70 years has not been determined. Clinical correlation is essential. Serum or plasma low density lipoprotein (LDL) cholesterol measurement (mass/volume)Ordered By: Luan Ashton on 12-10-2022 Cholesterol in LDL [Mass/Vol] 50 mg/dL 0-130 [facility] Serum or plasma urea nitroge n measurement (mass/volume)Ordered By: Luna Ashton on 12-10-2022 Urea nitrogen [Mass/Vol] 19 mg/dL 7-18 [facility] Thin prep Papanicolaou smear with manual screeningOrdered By: Luna Ashton on 12-10-2022 Thin prep Papanicolaou smear with manual screening 26 U/L 15-37 [facility] Thin prep Papanicolaou smear with manual screening 8 5-15 [facility] Whole blood hemoglobin A1c/t otal hemoglobin ratio (mass fraction)Ordered By: Luna Ashton on 12-10-2022 HbA1c (Bld) [Mass fraction] 10.3 % 3.8-5.6 [facility] Comment on above: Normal < 5.7 % Predi abetic 5.7 - 6.4 % Diabetic >or= 6.5 % Please note range changes. Laboratory - Hematology and Cell countson 11-11-2022 HbA1c (Bld) [Mass fraction] 12.1 % 4.2-6.3 [facility] Laboratory - Chemistry and C hemistry - challengeOrdered By: Dr. Ashton on 07-01-2022 Free T4 [Mass/Vol] 1.48 ng/dL 0.76-1.46 [facility] Laboratory - Hematology and Cell countson 07-01-2022 HbA1c (Bld) [Mass fraction] 11 % 4.2-6.3 [facility] No Panel InformationOrdered By: Dr. Ashton on 07-01-2022 Insulin Level 8.5 mU/L 2.6-37.6 [facility] Thyroid Stimulating Hormone (TSH) 0.76 uIU/mL 0.358-3.74 [facility] No Panel InformationOrdered By: Dr. Ashton on 04-03-2022 Thyroid Stimulating Hormone (TSH) 6.52 uIU/mL 0.358-3.74 [facility] Whole blood hemoglobin A1c/t otal hemoglobin ratio (mass fraction)Ordered By: Dr. Ashton on 04-03-2022 HbA1c (Bld) [Mass fraction] 10.7 % 3.8-5.6 [facility] Comment on above: Normal < 5.7 % Predi abetic 5.7 - 6.4 % Diabetic >or= 6.5 % Please note range changes. Basophil percentageOrdered B y: Dr. Ashton on 01-08-2022 Bilirubin [Mass/Vol] 0.70 mg/dL 0.20-1.00 [facility] Comment on above: For patients on eltr ombopag therapy, use of Dimension [place]graham TBIL is not recommended. Chloride [Moles/Vol] 100 mmol/L 98-107 [facility] Cholesterol [Mass/Vol] 122 mg/dL <200 [facility] Comment on above: <200 mg/dL Desirable 200-240 mg/dL Borderline >240 mg/dL High Risk Glucose [Mass/Vol] 208 mg/dL 74-106 [facility] Comment on above: Glucose result great er than or equal to 200 mg/dLsuggests DIABETES MELLITUS per A.D.A. criteria. Potassium [Moles/Vol] 4.1 mmol/L 3.5-5.1 [facility] Protein [Mass/Vol] 8.0 g/dL 6.4-8.2 [facility] Sodium [Moles/Vol] 138 mmol/L 136-145 [facility] Triglyceride [Mass/Vol] 228 mg/dL <199 [facility] Comment on above: The drugs N-Acetylcy steine and Metamizole may falsely depress this assay.Serum Triglycerides Reference Interval Normal <150 mg/dL Borderline high 150 - 199 mg/dL High 200 - 499 mg/dL Very High > or = 500 mg/dL Laboratory - Chemistry and C hemistry - challengeOrdered By: Dr. Ashton on 01-08-2022 ALP [Catalytic activity/Vol] 71 U/L 45-117 [facility] ALT [Catalytic activity/Vol] 41 U/L 16-61 [facility] CO2 [Moles/Vol] 28.0 mmol/L 21.0-32.0 [facility] Globulin (S) [Mass/Vol] 4.0 g/dL 2.2-4.2 [facility] Urea nitrogen/Creatinine [Mass ratio] 12.7 mg/mg 10-20 [facility] Laboratory - Hematology and Cell countson 01-08-2022 HbA1c (Bld) [Mass fraction] 8.1 % 4.2-6.3 [facility] No Panel InformationOrdered By: Dr. Ashton on 01-08-2022 Estimated GFR (MDRD) Amer 66 mL/min >60 [facility] Comment on above: GFR Calc Estimated GFR (MDRD) Non-Af Amer 54 mL/min >60 [facility] Comment on above: Non- GFR Calc Urine Microalbumin/Creatinine Ratio 193.6 mg/g CRE <30 [facility] Serum or plasma albumin darell urement (mass/volume)Ordered By: Dr. Ashton on 01-08-2022 Albumin [Mass/Vol] 4.0 g/dL 3.2-5.0 [facility] Serum or plasma albumin/glob ulin mass ratioOrdered By: Dr. Ashton on 01-08-2022 Albumin/Globulin [Mass ratio] 1.0 {ratio} 0.9-2.4 [facility] Serum or plasma calcium darell urement (mass/volume)Ordered By: Dr. Ashton on 01-08-2022 Calcium [Mass/Vol] 9.3 mg/dL 8.5-10.1 [facility] Serum or plasma cholesterol in HDL measurement (mass/volume)Ordered By: Dr. Ashton on 01-08-2022 Cholesterol in HDL [Mass/Vol] 34 mg/dL >40 [facility] Comment on above: The drugs N-Acetylcy steine and Metamizole may falsely depress this assay. Reference Range HDL <40 mg/dL Low HDL Cholesterol HDL >or= 60 mg/dL High HDL Cholesterol Serum or plasma cholesterol in VLDL measurement (mass/volume)Ordered By: Dr. Ashton on 01-08-2022 Cholesterol in VLDL [Mass/Vol] 46 mg/dL 5-40 [facility] Serum or plasma creatinine m easurement (mass/volume)Ordered By: Dr. Ashton on 01-08-2022 Creatinine [Mass/Vol] 1.34 mg/dL 0.70-1.30 [facility] Comment on above: The validity of the calculated GFR & GFRAA in patients over 70 years has not been determined. Clinical correlation is essential. Serum or plasma low density lipoprotein (LDL) cholesterol measurement (mass/volume)Ordered By: Dr. Ashton on 01-08-2022 Cholesterol in LDL [Mass/Vol] 42 mg/dL 0-130 [facility] Serum or plasma urea nitroge n measurement (mass/volume)Ordered By: Dr. Ashton on 01-08-2022 Urea nitrogen [Mass/Vol] 17 mg/dL 7-18 [facility] Thin prep Papanicolaou smear with manual screeningOrdered By: Dr. Ashton on 01-08-2022 Thin prep Papanicolaou smear with manual screening 24 U/L 15-37 [facility] Thin prep Papanicolaou smear with manual screening 10 5-15 [facility] Thin prep Papanicolaou smear with manual screening 242.0 mg/L NO RANGE EST. [facility] Urine creatinine measurement (mass/volume)Ordered By: Dr. Ashton on 01-08-2022 Creatinine (U) [Mass/Vol] 125.00 mg/dL NO RANGE EST. [facility] Laboratory - Hematology and Cell countson 10-30-2021 HbA1c (Bld) [Mass fraction] 8.5 % 4.2-6.3 [facility] Work Phone: Laboratory - Microbiology an d Antimicrobial susceptibilityon 09-12-2021 SARS-CoV-2 (COVID-19) RNA HEAVEN+probe Ql (Unsp spec) Not detected Not Detect [facility] Work Phone: Comment on above: Normal Reference [...] HbA1c (Bld) [Mass fraction] 8.0 % 4.2-6.3 [facility] Work Phone: Laboratory - Microbiology an d Antimicrobial susceptibilityon 05-10-2021 SARS-CoV-2 (COVID-19) RNA HEAVEN+probe Ql (Unsp spec) Not detected Not Detect [facility] Work Phone: Comment on above: Normal Reference [...] 03-20-2021 Free T4 [Mass/Vol] 1.15 ng/dL 0.76-1.46 [facility] Work Phone: Laboratory - Hematology and Cell countson 03-20-2021 HbA1c (Bld) [Mass fraction] 8.4 % [facility] Work Phone: No Panel Informationon 03-20 Thyroid Stimulating Hormone (TSH) 2.98 uIU/mL 0.358-3.74 [facility] Work Phone: A1Con 04-15-2017 Hemoglobin A1c/Hemoglobin.total mass fraction (Bld) 7.5 % High 4.8-5.9 [facility] ([place]) Comment on above: Performed By: #### P SA, A1C ####[id number] [place], [place] [address] PSAon 04-15-2017 Prostate Specific Antigen 3.03 ng/mL Normal 0.00-4.00 [facility] ([place]) Comment on above: Performed By: #### P SA, A1C ####[id number] [place], [place] [address] Vital Signs Date Time Vital Sign Value Performing Clinician Facility 01-02-2025 14:22-0500 Body height 182.[address] Luna Ashton DO Work Phone: [facility] 01-02-2025 14:22-0500 Body mass index (BMI) [Ratio] 23.6 kg/m2 Dr. Luna Ashton DO Work Phone: [facility] 01-02-2025 14:22-0500 Body temperature 97.7 [degF] Dr. Luna Ashton DO Work Phone: [facility] 01-02-2025 14:22-0500 Body weight 78.[address] Luna Ashton DO Work Phone: [facility] 01-02-2025 14:22-0500 Diastolic blood pressure 63 mm[Hg] Dr. Luna Ashton DO Work Phone: [facility] 01-02-2025 14:22-0500 Heart rate 76 /min Dr. Luna Ashton DO Work Phone: [facility] 01-02-2025 14:22-0500 Respiratory rate 16 /min Dr. Luna Ashton DO Work Phone: [facility] 01-02-2025 14:22-0500 SaO2% (BldA) [Mass fraction] 93 % Dr. Luna Ashton DO Work Phone: [facility] 01-02-2025 14:22-0500 Systolic blood pressure 131 mm[Hg] Dr. Luna Ashton DO Work Phone: [facility] 12-29-2024 10:33-0400 Body mass index (BMI) [Ratio] 23.6 kg/m2 Dr. Luna Ashton DO Work Phone: [facility] 12-29-2024 10:33-0400 Body temperature 97.3 [degF] Dr. Luna Ashton DO Work Phone: [facility] 12-29-2024 10:33-0400 Body weight 78.[address] Luna Ashton DO Work Phone: [facility] 12-29-2024 10:33-0400 Diastolic blood pressure 62 mm[Hg] Dr. Luna Ashton DO Work Phone: [facility] 12-29-2024 10:33-0400 Heart rate 82 /min Dr. Luna Ashton DO Work Phone: [facility] 12-29-2024 10:33-0400 Respiratory rate 16 /min Dr. Luna Ashton DO Work Phone: [facility] 12-29-2024 10:33-0400 SaO2% (BldA) [Mass fraction] 98 % Dr. Luna Ashton DO Work Phone: [facility] 12-29-2024 10:33-0400 Systolic blood pressure 130 mm[Hg] Dr. Luna Ashton DO Work Phone: [facility] 12-26-2024 09:01-0400 Body height 182.[address] Luna Ashton DO Work Phone: [facility] 12-26-2024 09:01-0400 Body temperature 98.6 [degF] Dr. Luna Ashton DO Work Phone: [facility] 12-26-2024 09:01-0400 Diastolic blood pressure 71 mm[Hg] Dr. Luna Ashton DO Work Phone: [facility] 12-26-2024 09:01-0400 Heart rate 76 /min Dr. Luna Ashton DO Work Phone: [facility] 12-26-2024 09:01-0400 Respiratory rate 16 /min Dr. Luna Ashton DO Work Phone: [facility] 12-26-2024 09:01-0400 SaO2% (BldA) [Mass fraction] 93 % Dr. Luna Ashton DO Work Phone: [facility] 12-26-2024 09:01-0400 Systolic blood pressure 144 mm[Hg] Dr. Luna Ashton DO Work Phone: [facility] 12-19-2024 15:38-0400 Body temperature 96.3 [degF] Dr. Luna Ashton DO Work Phone: [facility] 12-19-2024 15:38-0400 Diastolic blood pressure 63 mm[Hg] Dr. Luna Ashton DO Work Phone: [facility] 12-19-2024 15:38-0400 Heart rate 56 /min Dr. Luna Ashton DO Work Phone: [facility] 12-19-2024 15:38-0400 Respiratory rate 16 /min Dr. Luna Ashton DO Work Phone: [facility] 12-19-2024 15:38-0400 Systolic blood pressure 144 mm[Hg] Dr. Luna Ashton DO Work Phone: [facility] 12-19-2024 14:38-0400 SaO2% (BldA) [Mass fraction] 94 % Dr. Luna Ashton DO Work Phone: [facility] 12-19-2024 12:12-0400 Body mass index (BMI) [Ratio] 23 kg/m2 Dr. Luna Ashton DO Work Phone: [facility] 12-19-2024 12:12-0400 Body temperature 97.6 [degF] Dr. Luna Ashton DO Work Phone: [facility] 12-19-2024 12:12-0400 Body weight 77.[address] Luna Ashton DO Work Phone: [facility] 12-19-2024 12:12-0400 Diastolic blood pressure 67 mm[Hg] Dr. Luna Ashton DO Work Phone: [facility] 12-19-2024 12:12-0400 Heart rate 63 /min Dr. Luna Ashton DO Work Phone: [facility] 12-19-2024 12:12-0400 Respiratory rate 18 /min Dr. Luna Ashton DO Work Phone: [facility] 12-19-2024 12:12-0400 SaO2% (BldA) [Mass fraction] 91 % Dr. Luna Ashton DO Work Phone: [facility] 12-19-2024 12:12-0400 Systolic blood pressure 138 mm[Hg] Dr. Luna Ashton DO Work Phone: [facility] 12-14-2024 14:40-0400 Body temperature 97.8 [degF] Dr. Luna Ashton DO Work Phone: [facility] 12-14-2024 14:40-0400 Diastolic blood pressure 70 mm[Hg] Dr. Luna Ashton DO Work Phone: [facility] 12-14-2024 14:40-0400 Heart rate 79 /min Dr. Luna Ashton DO Work Phone: [facility] 12-14-2024 14:40-0400 Respiratory rate 18 /min Dr. Luna Ashton DO Work Phone: [facility] 12-14-2024 14:40-0400 SaO2% (BldA) [Mass fraction] 92 % Dr. Luna Ashton DO Work Phone: [facility] 12-14-2024 14:40-0400 Systolic blood pressure 122 mm[Hg] Dr. Luna Ashton DO Work Phone: [facility] 12-12-2024 17:28-0400 Body temperature 98 [degF] Dr. Luna Ashton DO Work Phone: [facility] 12-12-2024 17:28-0400 Diastolic blood pressure 75 mm[Hg] Dr. Luna Ashton DO Work Phone: [facility] 12-12-2024 17:28-0400 Heart rate 86 /min Dr. Luna Ashton DO Work Phone: [facility] 12-12-2024 17:28-0400 Respiratory rate 17 /min Dr. Luna Ashton DO Work Phone: [facility] 12-12-2024 17:28-0400 SaO2% (BldA) [Mass fraction] 92 % Dr. Luna Ashton DO Work Phone: [facility] 12-12-2024 17:28-0400 Systolic blood pressure 133 mm[Hg] Dr. Luna Ashton DO Work Phone: [facility] 12-12-2024 11:40-0400 Inhaled oxygen flow rate 2 L/min Dr. Luna Ashton DO Work Phone: [facility] 12-12-2024 05:12-0400 Body mass index (BMI) [Ratio] 23.4 kg/m2 Dr. Luna Ashton DO Work Phone: [facility] 12-12-2024 05:12-0400 Body weight 78.[address] Luna Ashton DO Work Phone: [facility] 12-09-2024 10:00-0400 Inhaled oxygen concentration 58 % Dr. Luna Ashton DO Work Phone: [facility] 12-05-2024 09:05-0400 Body temperature 97.3 [degF] Dr. Luna Ashton DO Work Phone: [facility] 12-05-2024 09:05-0400 Diastolic blood pressure 69 mm[Hg] Dr. Luna Ashton DO Work Phone: [facility] 12-05-2024 09:05-0400 Heart rate 77 /min Dr. Luna Ashton DO Work Phone: [facility] 12-05-2024 09:05-0400 Respiratory rate 18 /min Dr. Luna Ashton DO Work Phone: [facility] 12-05-2024 09:05-0400 SaO2% (BldA) [Mass fraction] 96 % Dr. Luna Ashton DO Work Phone: [facility] 12-05-2024 09:05-0400 Systolic blood pressure 146 mm[Hg] Dr. Luna Ashton DO Work Phone: [facility] 12-05-2024 02:58-0400 Body mass index (BMI) [Ratio] 23 kg/m2 Dr. Luna Ashton DO Work Phone: [facility] 12-05-2024 02:58-0400 Body weight 76.[address] Luna Ashton DO Work Phone: [facility] 12-04-2024 12:01-0400 Body height 182.[address] Luna Ashton DO Work Phone: [facility] 11-23-2024 10:48-0400 Body height 182.[address] Luna Ashton DO Work Phone: [facility] 11-23-2024 10:48-0400 Body mass index (BMI) [Ratio] 23 kg/m2 Dr. Luna Ashton DO Work Phone: [facility] 11-23-2024 10:48-0400 Body temperature 97.9 [degF] Dr. Luna Ashton DO Work Phone: [facility] 11-23-2024 10:48-0400 Body weight 77.[address] Luna Ashton DO Work Phone: [facility] 11-23-2024 10:48-0400 Diastolic blood pressure 84 mm[Hg] Dr. Luna Ashton DO Work Phone: [facility] 11-23-2024 10:48-0400 Heart rate 90 /min Dr. Luna Ashton DO Work Phone: [facility] 11-23-2024 10:48-0400 Respiratory rate 16 /min Dr. Luna Ashton DO Work Phone: [facility] 11-23-2024 10:48-0400 SaO2% (BldA) [Mass fraction] 98 % Dr. Luna Ashton DO Work Phone: [facility] 11-23-2024 10:48-0400 Systolic blood pressure 152 mm[Hg] Dr. Luna Ashton DO Work Phone: [facility] 11-15-2024 12:10-0400 Body height 182.[address] Luna Ashton DO Work Phone: [facility] 11-15-2024 12:10-0400 Body mass index (BMI) [Ratio] 23.7 kg/m2 Dr. Luna Ashtno DO Work Phone: [facility] 11-15-2024 12:10-0400 Body temperature 97.6 [degF] Dr. Luna Ashton DO Work Phone: [facility] 11-15-2024 12:10-0400 Body weight 79.[address] Luna Ashton DO Work Phone: [facility] 11-15-2024 12:10-0400 Diastolic blood pressure 68 mm[Hg] Dr. Luna Ashton DO Work Phone: [facility] 11-15-2024 12:10-0400 Heart rate 100 /min Dr. Luna Ashton DO Work Phone: [facility] 11-15-2024 12:10-0400 SaO2% (BldA) [Mass fraction] 97 % Dr. Luna Ashton DO Work Phone: [facility] 11-15-2024 12:10-0400 Systolic blood pressure 148 mm[Hg] Dr. uLna Ashton DO Work Phone: [facility] 09-29-2024 14:17-0400 Body height 182.[address] Luna Ashton DO Work Phone: [facility] 09-29-2024 14:17-0400 Body mass index (BMI) [Ratio] 23.7 kg/m2 Dr. Luna Ashton DO Work Phone: [facility] 09-29-2024 14:17-0400 Body temperature 97.5 [degF] Dr. Luna Ashton DO Work Phone: [facility] 09-29-2024 14:17-0400 Body weight 79.[address] Luna Ashton DO Work Phone: [facility] 09-29-2024 14:17-0400 Diastolic blood pressure 60 mm[Hg] Dr. Luna Ashton DO Work Phone: [facility] 09-29-2024 14:17-0400 Heart rate 66 /min Dr. Luna Ashton DO Work Phone: [facility] 09-29-2024 14:17-0400 Respiratory rate 16 /min Dr. Luna Ashton DO Work Phone: [facility] 09-29-2024 14:17-0400 SaO2% (BldA) [Mass fraction] 95 % Dr. Luna Ashton DO Work Phone: [facility] 09-29-2024 14:17-0400 Systolic blood pressure 120 mm[Hg] Dr. Luna Ashton DO Work Phone: [facility] 06-21-2024 09:37-0400 Body mass index (BMI) [Ratio] 24.1 kg/m2 Dr. Luna Ashton DO Work Phone: [facility] 06-21-2024 09:37-0400 Body temperature 96.7 [degF] Dr. Luna Ashton DO Work Phone: [facility] 06-21-2024 09:37-0400 Body weight 80.[address] Luna Ashton DO Work Phone: [facility] 06-21-2024 09:37-0400 Diastolic blood pressure 68 mm[Hg] Dr. Luna Ashton DO Work Phone: [facility] 06-21-2024 09:37-0400 Heart rate 76 /min Dr. Luna Ashton DO Work Phone: [facility] 06-21-2024 09:37-0400 Respiratory rate 16 /min Dr. Luna Ashton DO Work Phone: [facility] 06-21-2024 09:37-0400 SaO2% (BldA) [Mass fraction] 95 % Dr. Luna Ashton DO Work Phone: [facility] 06-21-2024 09:37-0400 Systolic blood pressure 134 mm[Hg] Dr. Luna Ashton DO Work Phone: [facility] 12-10-2022 10:05-0400 Body height 182.[address] Luna Ashton Work Phone: [facility] 12-10-2022 10:05-0400 Body mass index (BMI) [Ratio] 22.9 kg/m2 Dr. Luna Ashton Work Phone: [facility] 12-10-2022 10:05-0400 Body temperature 98.5 [degF] Dr. Luna Ashton Work Phone: [facility] 12-10-2022 10:05-0400 Body weight 76.[address] Luna Ashton Work Phone: [facility] 12-10-2022 10:05-0400 Diastolic blood pressure 80 mm[Hg] Dr. Luna Ashton Work Phone: [facility] 12-10-2022 10:05-0400 Heart rate 74 /min Dr. Luna Ashton Work Phone: [facility] 12-10-2022 10:05-0400 Respiratory rate 16 /min Dr. Luna Ashton Work Phone: [facility] 12-10-2022 10:05-0400 SaO2% (BldA) [Mass fraction] 96 % Dr. Luna Ashton Work Phone: [facility] 12-10-2022 10:05-0400 Systolic blood pressure 154 mm[Hg] Dr. Luna Ashton Work Phone: [facility] 11-11-2022 09:38-0400 Body mass index (BMI) [Ratio] 23.1 kg/m2 Dr. Luna Ashton Work Phone: [facility] 11-11-2022 09:38-0400 Body temperature 95.6 [degF] Dr. Luna Ashton Work Phone: [facility] 11-11-2022 09:38-0400 Body weight 77.[address] Luna Ashton Work Phone: [facility] 11-11-2022 09:38-0400 Diastolic blood pressure 76 mm[Hg] Dr. Luna Ashton Work Phone: [facility] 11-11-2022 09:38-0400 Heart rate 70 /min Dr. Luna Ashton Work Phone: [facility] 11-11-2022 09:38-0400 Respiratory rate 18 /min Dr. Luna Ashton Work Phone: [facility] 11-11-2022 09:38-0400 SaO2% (BldA) [Mass fraction] 99 % Dr. Luna Ashton Work Phone: [facility] 11-11-2022 09:38-0400 Systolic blood pressure 132 mm[Hg] Dr. Luna Ashton Work Phone: [facility] 07-01-2022 08:40-0400 Body height 182.[address] Luna Ashton Work Phone: [facility] 07-01-2022 08:40-0400 Body mass index (BMI) [Ratio] 23.5 kg/m2 Dr. Luna Ashton Work Phone: [facility] 07-01-2022 08:40-0400 Body temperature 96 [degF] Dr. Luna Ashton Work Phone: [facility] 07-01-2022 08:40-0400 Body weight 78.[address] Luna Ashton Work Phone: [facility] 07-01-2022 08:40-0400 Diastolic blood pressure 80 mm[Hg] Dr. Luna Ashton Work Phone: [facility] 07-01-2022 08:40-0400 Heart rate 63 /min Dr. Luna Ashton Work Phone: [facility] 07-01-2022 08:40-0400 Respiratory rate 18 /min Dr. Luna Ashton Work Phone: [facility] 07-01-2022 08:40-0400 SaO2% (BldA) [Mass fraction] 99 % Dr. Luna Ashton Work Phone: [facility] 07-01-2022 08:40-0400 Systolic blood pressure 138 mm[Hg] Dr. Luna Ashton Work Phone: [facility] 04-03-2022 08:33-0500 Body height 182.[address] Luna Ashton Work Phone: [facility] 04-03-2022 08:33-0500 Body mass index (BMI) [Ratio] 23.6 kg/m2 Dr. Luna Ashton Work Phone: [facility] 04-03-2022 08:33-0500 Body temperature 96.3 [degF] Dr. Luna Ashton Work Phone: [facility] 04-03-2022 08:33-0500 Body weight 78.[address] Luna Ashton Work Phone: [facility] 04-03-2022 08:33-0500 Diastolic blood pressure 74 mm[Hg] Dr. Luna Ashton Work Phone: [facility] 04-03-2022 08:33-0500 Heart rate 70 /min Dr. Luna Ashton Work Phone: [facility] 04-03-2022 08:33-0500 Respiratory rate 16 /min Dr. Luna Ashton Work Phone: [facility] 04-03-2022 08:33-0500 SaO2% (BldA) [Mass fraction] 98 % Dr. Luna Ashton Work Phone: [facility] 04-03-2022 08:33-0500 Systolic blood pressure 146 mm[Hg] Dr. Luna Ashton Work Phone: [facility] 10-30-2021 10:15-0400 Body height 180.[address] Luna Ashton Work Phone: [facility] Work Phone: 10-30-2021 10:15-0400 Body mass index (BMI) [Ratio] 24.7 kg/m2 Dr. Luna Ashton Work Phone: [facility] Work Phone: 10-30-2021 10:15-0400 Body temperature 96.3 [degF] Dr. Luna Ashton Work Phone: [facility] Work Phone: 10-30-2021 10:15-0400 Body weight 80.[address] Luna Ashton Work Phone: [facility] Work Phone: 10-30-2021 10:15-0400 Diastolic blood pressure 78 mm[Hg] Dr. Luna Ashton Work Phone: [facility] Work Phone: 10-30-2021 10:15-0400 Heart rate 65 /min Dr. Luna Ashton Work Phone: [facility] Work Phone: 10-30-2021 10:15-0400 Respiratory rate 18 /min Dr. Luna Ashton Work Phone: [facility] Work Phone: 10-30-2021 10:15-0400 SaO2% (BldA) [Mass fraction] 99 % Dr. Luna Ashton Work Phone: [facility] Work Phone: 10-30-2021 10:15-0400 Systolic blood pressure 144 mm[Hg] Dr. Luna Ashton Work Phone: [facility] Work Phone: 09-12-2021 09:31-0400 Diastolic blood pressure 70 mm[Hg] Dr. Luna Ashton Work Phone: [facility] Work Phone: 09-12-2021 09:31-0400 Systolic blood pressure 136 mm[Hg] Dr. Luna Asthon Work Phone: [facility] Work Phone: 09-12-2021 09:13-0400 Body height 180.[address] Luna Ashton Work Phone: [facility] Work Phone: 09-12-2021 09:13-0400 Body mass index (BMI) [Ratio] 24.5 kg/m2 Dr. Luna Ashton Work Phone: [facility] Work Phone: 09-12-2021 09:13-0400 Body temperature 98.1 [degF] Dr. Luna Ashton Work Phone: [facility] Work Phone: 09-12-2021 09:13-0400 Body weight 79.[address] Luna Ashton Work Phone: [facility] Work Phone: 09-12-2021 09:13-0400 Heart rate 69 /min Dr. Luna Ashton Work Phone: [facility] Work Phone: 09-12-2021 09:13-0400 Respiratory rate 16 /min Dr. Luna Ashton Work Phone: [facility] Work Phone: 09-12-2021 09:13-0400 SaO2% (BldA) [Mass fraction] 98 % Dr. Luna Ashton Work Phone: [facility] Work Phone: 08-07-2021 09:38-0400 Body mass index (BMI) [Ratio] 24.3 kg/m2 Dr. Luna Ashton Work Phone: [facility] Work Phone: 08-07-2021 09:38-0400 Body temperature 96.7 [degF] Dr. Luna Ashton Work Phone: [facility] Work Phone: 08-07-2021 09:38-0400 Body weight 78.[address] Luna Ashton Work Phone: [facility] Work Phone: 08-07-2021 09:38-0400 Diastolic blood pressure 72 mm[Hg] Dr. Luna Ashton Work Phone: [facility] Work Phone: 08-07-2021 09:38-0400 Heart rate 74 /min Dr. Luna Ashton Work Phone: [facility] Work Phone: 08-07-2021 09:38-0400 Respiratory rate 14 /min Dr. Luna Ashton Work Phone: [facility] Work Phone: 08-07-2021 09:38-0400 SaO2% (BldA) [Mass fraction] 99 % Dr. Luna Ashton Work Phone: [facility] Work Phone: 08-07-2021 09:38-0400 Systolic blood pressure 140 mm[Hg] Dr. Luna Ashton Work Phone: [facility] Work Phone: 06-19-2021 08:36-0400 Body mass index (BMI) [Ratio] 24.3 kg/m2 Dr. Luna Ashton Work Phone: [facility] Work Phone: 06-19-2021 08:36-0400 Body temperature 95.1 [degF] Dr. Luna Ashton Work Phone: [facility] Work Phone: 06-19-2021 08:36-0400 Body weight 79.[address] Luna Ashton Work Phone: [facility] Work Phone: 06-19-2021 08:36-0400 Diastolic blood pressure 60 mm[Hg] Dr. Luna Ashton Work Phone: [facility] Work Phone: 06-19-2021 08:36-0400 Heart rate 61 /min Dr. Luna Ashton Work Phone: [facility] Work Phone: 06-19-2021 08:36-0400 Respiratory rate 18 /min Dr. Luna Ashton Work Phone: [facility] Work Phone: 06-19-2021 08:36-0400 SaO2% (BldA) [Mass fraction] 99 % Dr. Luna Ashton Work Phone: [facility] Work Phone: 06-19-2021 08:36-0400 Systolic blood pressure 112 mm[Hg] Dr. Luna Ashton Work Phone: [facility] Work Phone: 05-10-2021 08:44-0500 Body height 180.[address] Luna Ashton Work Phone: [facility] Work Phone: 05-10-2021 08:44-0500 Body mass index (BMI) [Ratio] 24.3 kg/m2 Dr. Luna Ashton Work Phone: [facility] Work Phone: 05-10-2021 08:44-0500 Body temperature 96.3 [degF] Dr. Luna Ashton Work Phone: [facility] Work Phone: 05-10-2021 08:44-0500 Body weight 78.[address] Luna Ashton Work Phone: [facility] Work Phone: 05-10-2021 08:44-0500 Diastolic blood pressure 72 mm[Hg] Dr. Luna Ashton Work Phone: [facility] Work Phone: 05-10-2021 08:44-0500 Heart rate 91 /min Dr. Luna Ashton Work Phone: [facility] Work Phone: 05-10-2021 08:44-0500 Respiratory rate 16 /min Dr. Luna Ashton Work Phone: [facility] Work Phone: 05-10-2021 08:44-0500 SaO2% (BldA) [Mass fraction] 99 % Dr. Luna Ashton Work Phone: [facility] Work Phone: 05-10-2021 08:44-0500 Systolic blood pressure 130 mm[Hg] Dr. Luna Ashton Work Phone: [facility] Work Phone: 03-27-2021 15:33-0500 Body temperature 96.7 [degF] Dr. Luna Ashton Work Phone: [facility] Work Phone: 03-27-2021 15:33-0500 Body weight 80.[address] Luna Ashton Work Phone: [facility] Work Phone: 03-27-2021 15:33-0500 Diastolic blood pressure 78 mm[Hg] Dr. Luna Ashton Work Phone: [facility] Work Phone: 03-27-2021 15:33-0500 Heart rate 67 /min Dr. Luna Ashton Work Phone: [facility] Work Phone: 03-27-2021 15:33-0500 Respiratory rate 16 /min Dr. Luna Ashton Work Phone: [facility] Work Phone: 03-27-2021 15:33-0500 SaO2% (BldA) [Mass fraction] 99 % Dr. Luna Ashton Work Phone: [facility] Work Phone: 03-27-2021 15:33-0500 Systolic blood pressure 130 mm[Hg] Dr. Luna Ashton Work Phone: [facility] Work Phone: 03-20-2021 09:33-0500 Body mass index (BMI) [Ratio] 24.3 kg/m2 Dr. Luna Ashton Work Phone: [facility] Work Phone: 03-20-2021 09:33-0500 Body temperature 96 [degF] Dr. Luna Ashton Work Phone: [facility] Work Phone: 03-20-2021 09:33-0500 Body weight 78.[address] Luna Ashton Work Phone: [facility] Work Phone: 03-20-2021 09:33-0500 Diastolic blood pressure 70 mm[Hg] Dr. Luna Ashton Work Phone: [facility] Work Phone: 03-20-2021 09:33-0500 Heart rate 62 /min Dr. Luna Ashton Work Phone: [facility] Work Phone: 03-20-2021 09:33-0500 Respiratory rate 16 /min Dr. Luna Ashton Work Phone: [facility] Work Phone: 03-20-2021 09:33-0500 SaO2% (BldA) [Mass fraction] 99 % Dr. Luna Ashton Work Phone: [facility] Work Phone: 03-20-2021 09:33-0500 Systolic blood pressure 128 mm[Hg] Dr. Luna Ashton Work Phone: [facility] Work Phone: Encounters Encounter Date Encounter Type Care Provider Facility Start: 01-09-2025 End: 01-09-2025 ambulatory Renay Daya [employer] Facility:[facility] Start: 01-02-2025 End: 01-02-2025 ambulatory Luna Ashton Facility:[facility] Start: 12-29-2024 End: 12-29-2024 ambulatory Luna Ashton Facility:[facility] Start: 12-26-2024 End: 12-26-2024 ambulatory Luna Ashton Facility:[facility] Start: 12-19-2024 End: 12-19-2024 Dr. Adalid King MD -[facility] Work Phone: Start: 12-19-2024 End: 12-19-[address] Luna Ashton DO Work Phone: -[facility] Start: 12-14-2024 ambulatory Renaypawel Stapleton [employer] Facil ity:[facility] Start: 12-14-2024 End: 12-14-2024 Dr. Adalid King MD -[facility] Work Phone: Start: 12-14-2024 End: 12-14-[address] Luna Ashton DO Work Phone: [facility] Start: 12-12-2024 Dr. Suraj Paz MD [facility] Work Phone: Start: 12-11-2024 Dr. Suraj Paz MD [facility] Work Phone: Start: 12-10-2024 Dr. Suraj Paz MD [facility] Work Phone: Start: 12-09-2024 ambulatory Luna Ashton Facilit y:[facility] Start: 12-09-2024 Dr. Vamsi Sams MD [facility] Start: 12-09-2024 Dr. Claire Mazariegos MD [facility] Work Phone: Start: 12-08-2024 Dr. Claire Mazariegos MD [facility] Work Phone: Start: 12-08-2024 Dr. Vamsi Sams MD [facility] Work Phone: Start: 2024 Dr. Claire Mazariegos MD [facility] Work Phone: Start: 2024 Susan Sprague -A Start: 2024 Dr. Homer Grey MD [facility] Work Phone: Start: 12-06-2024 Dr. Claire Mazariegos MD [facility] Work Phone: Start: 12-06-2024 Dr. Henry Sprague -A Start: 12-06-2024 Dr. Homer Grey MD [facility] Work Phone: Start: 12-05-2024 Dr. Henry Sprague -A Start: 12-05-2024 Non-patient / Non-visit Dr. Claire Mazariegos MD [facility] Work Phone: Start: 12-05-2024 Dr. Claire Mazariegos MD [facility] Work Phone: Start: 12-04-2024 Non-patient / Non-visit Dr. Claire Mazariegos MD [facility] Work Phone: Start: 12-04-2024 Dr. Claire Mazariegos MD -[facility] Work Phone: Start: 12-03-2024 ambulatory Alyssia Dee ity:[facility] Start: 12-03-2024 End: 12-12-2024 Evaluation and management of inpatient Dr. Claire Mazariegos MD -[facility] Work Phone: Start: 12-03-2024 End: 12-12-2024 Dr. Suraj Paz MD -[facility] Work Phone: Start: 11-25-2024 End: 11-25-[address] Luna Ashton DO Work Phone: -[facility] Start: 11-25-2024 End: 11-25-[address] Luna Judge DO -[facility] Work Phone: Start: 11-25-2024 End: 11-25-2024 Dr. Luna Judge DO -[facility] Work Phone: Start: 11-25-2024 End: 11-25-2024 ambulatory Luna Ashotn Facility:[facility] Start: 11-23-2024 End: 11-23-[address] Luna Judge DO -[facility] Work Phone: Start: 11-23-2024 End: 11-23-2024 Dr. Luna Judge DO -[facility] Work Phone: Start: 11-23-2024 End: 11-23-[address] Luna Ashton DO Work Phone: -[facility] Start: 11-15-2024 End: 11-15-2024 Patient encounter procedure Victor M Gates AL -[facility] Work Phone: Start: 11-15-2024 End: 11-15-2024 Victor M LEROY [facility] Work Phone: Start: 11-15-2024 End: 11-15-[address] Luna Ashton DO Work Phone: [facility] Start: 11-15-2024 End: 11-15-2024 ambulatory Victor M LEROY Facility:[facility] Start: 10-19-2024 ambulatory Luna Ashton Facilit y:[facility] Start: 10-19-2024 Non-patient / Non-visit Dr. Homer Grey MD -[facility] Start: 10-19-2024 Dr. Homer Grey MD [facility] Start: 10-19-2024 End: 10-19-[address] Luna Ashton DO Work Phone: -[facility] Start: 10-19-2024 End: 10-19-[address] Luna Judge DO -[facility] Work Phone: Start: 10-19-2024 End: 10-19-2024 Dr. Luna Judge DO -[facility] Work Phone: Start: 10-19-2024 End: 10-19-2024 ambulatory Luna Ashton Facility:[facility] Start: 10-04-2024 End: 10-04-[address] Luna Ashton DO Work Phone: -[facility] Start: 10-04-2024 End: 10-04-[address] Luna Judge DO -[facility] Work Phone: Start: 10-04-2024 End: 10-04-2024 Dr. Luna Judge DO -[facility] Work Phone: Start: 10-04-2024 End: 10-04-2024 ambulatory Luna Ashton Facility:[facility] Start: 09-29-2024 End: 09-29-[address] Luna Judge DO -[facility] Work Phone: Start: 09-29-2024 End: 09-29-2024 Dr. Luna Judge DO -[facility] Work Phone: Start: 09-29-2024 End: 09-29-[address] Luna Ashton DO Work Phone: [facility] Start: 06-21-2024 End: 06-21-[address] Luna Judge DO -[facility] Work Phone: Start: 06-21-2024 End: 06-21-2024 ambulatory Luna Ashton Facility:[facility] Start: 03-22-2024 End: 03-22-2024 ambulatory Luna Ashton Facility:[facility] Start: 03-22-2024 End: 03-22-2024 ambulatory Luna Ashton Facility:[facility] Start: 12-10-2022 End: 12-10-[address] Luna Ashton Work Phone: [facility] Work Phone: Start: 12-10-2022 End: 12-10-[address] Luna Ashton Work Phone: [facility] Work Phone: Start: 11-11-2022 End: 11-11-[address] Luna Ashton Work Phone: [facility] Work Phone: Start: 07-01-2022 End: 07-01-[address] Luna Ashton Work Phone: [facility] Work Phone: Start: 07-01-2022 End: 07-01-[address] Luna Ashton Work Phone: [facility] Start: 04-03-2022 End: 04-03-[address] Luna Ashton Work Phone: [facility] Work Phone: Start: 04-03-2022 End: 04-03-[address] Luna Ashton Work Phone: [facility] Start: 01-08-2022 End: 01-08-[address] Luna Ashton Work Phone: [facility] Work Phone: Start: 01-08-2022 End: 01-08-[address] Luna Ashton Work Phone: [facility] Start: 10-30-2021 End: 10-30-[address] Luna Ashton Work Phone: [facility] Start: 09-12-2021 End: 09-12-[address] Luna Ashton Work Phone: [facility] Start: 08-14-2021 End: 08-14-[address] Luna Ashton Work Phone: [facility] Start: 08-07-2021 End: 08-07-[address] Luna Ashton Work Phone: [facility] Start: 06-19-2021 End: 06-19-[address] Luna Ashton Work Phone: [facility] Start: 05-10-2021 End: 05-10-[address] [facility] Start: 03-27-2021 End: 03-27-[address] Luna Ashton Work Phone: [facility] Start: 03-20-2021 End: 03-20-[address] Luna Ashton Work Phone: [facility] Start: 04-15-2017 End: 04-16-2017 Ambulatory LUNA ASHTON Facility:[facility] Procedures Date Procedure Procedure Detail Performing Clinician Start: 01-02-2025 Mean corpuscular hem oglobin concentration determination Dr. Luna Ashton DO Work Phone: Start: 01-02-[address] Morrison DO Work Phone: Start: 01-02-2025 Nucleated red blood cell count procedure Dr. Luna Ashton DO Work Phone: Start: 01-02-2025 Platelet mean volume determination Dr. Luna Ashton DO Work Phone: Start: 12-26-2024 Mean corpuscular hem oglobin concentration determination Dr. Luna Ashton DO Work Phone: Start: 12-26-[address] Morrison DO Work Phone: Start: 12-26-2024 Nucleated red blood cell count procedure Dr. Luna Ashton DO Work Phone: Start: 12-26-2024 Platelet mean volume determination Dr. Luna Ashton DO Work Phone: Start: 12-19-2024 Albumin/Globulin ratio Dr. Luna Ashton DO Work Phone: Start: 12-19-2024 Hepatitis B surface antibody measurement Dr. Luna Ashton DO Work Phone: Start: 12-19-2024 Hepatitis C virus recombinant immunoblot measurement Dr. Luna Ashton DO Work Phone: Start: 12-19-20[address] M measurement Dr. Luna Ashton DO Work Phone: Start: 12-19-[address] e measurement Dr. Luna Ashton DO Work Phone: Start: 12-19-2024 Urine lambda light c dax measurement Dr. Luna Ashton DO Work Phone: Start: 12-12-[address] Luna Ashton DO Work Phone: Start: 12-12-2024 Mean corpuscular hem oglobin concentration determination Dr. Luna Ashton DO Work Phone: Start: 12-12-[address] Morrison DO Work Phone: Start: 12-12-2024 Nucleated red blood cell count procedure Dr. Luna Ashton DO Work Phone: Start: 12-12-2024 Platelet mean volume determination Dr. Luna Ashton DO Work Phone: Start: 12-09-2024 Bone marrow aspirati on procedure Dr. Luna Ashton DO Work Phone: Start: 12-09-2024 Calculation of inter national normalized ratio Dr. Luna Ashton DO Work Phone: Start: 12-09-2024 Dr. Angelika Ashton DO Work Phone: Start: 12-08-2024 Carbon dioxide measu rement, partial pressure Dr. Luna Ashton DO Work Phone: Start: 12-08-2024 Measurement of parti al pressure of oxygen in blood Dr. Luna Ashton DO Work Phone: Start: 12-08-[address] Luna Ashton DO Work Phone: Start: 12-08-[address] Luna Ashton DO Work Phone: Start: 12-08-2024 Plain chest X-ray Dr. Ita Ashton DO Work Phone: Start: 12-08-2024 Radiologic examinati on osseous survey compl Dr. Luna Ashton DO Work Phone: Start: 12-08-[address] fraction Dr[address] Luna Ashton DO Work Phone: Start: [address] Zen Ashton DO Work Phone: Start: 2024 Serum inorganic phos phate measurement Dr. Luna Ashton DO Work Phone: Start: 12-06-2024 Plain chest X-ray Dr. Ita Ashton DO Work Phone: Start: 12-06-2024 Fluoroscopic guidance Ita Ashton DO Work Phone: Start: 12-06-2024 Insertion of hemodia lysis catheter Dr. Luna Ashton DO Work Phone: Start: 12-05-2024 Us retroperitoneal r eal time w/image complete Dr. Luna Ashton DO Work Phone: Start: 12-05-[address] Christina Ashton DO Work Phone: Start: 12-05-2024 C>3< complement assay D sara Ashton DO Work Phone: Start: 12-05-[address] Luna Ashton DO Work Phone: Start: 12-05-2024 Total iron binding c apacity measurement Dr. Luna Ashton DO Work Phone: Start: 12-05-2024 Urine lambda light c dax measurement Dr. Luna Ashton DO Work Phone: Start: 12-04-2024 Total cholesterol:HD L ratio measurement Dr. Luna Ashton DO Work Phone: Start: 12-04-[address] Luna Ashton DO Work Phone: Start: 12-03-2024 Chloride measurement, urine Dr. Luna Ashton DO Work Phone: Start: 12-03-2024 Urea nitrogen measur ement, urine Dr. Luna Ashton DO Work Phone: Start: 12-03-2024 Urine microalbumin/creatinine ratio measurement Dr. Luna Ashton DO Work Phone: Start: 12-03-2024 Urine microscopy: red cells Dr. Luna Ashton DO Work Phone: Start: 12-03-2024 Urnls dip stick/tabl et reagent auto microscopy Dr. Luna Ashton DO Work Phone: Start: 12-03-2024 Albumin/Globulin ratio Dr. Luna Ashton DO Work Phone: Start: 12-03-2024 [address] M measurement Dr. Luna Ashton DO Work Phone: Start: 12-03-2024 Osmolality measureme nt, serum Dr. Luna Ashton DO Work Phone: Start: 12-03-2024 Radiologic exam ches t [address] Luna Ashton DO Work Phone: Start: 12-03-[address] Luna Ashton DO Work Phone: Start: 12-03-2024 Serum inorganic phos phate measurement Dr. Luna Ashton DO Work Phone: Start: 12-03-2024 [address] lipa se measurement Dr. Luna Ashton DO Work Phone: Start: 12-03-2024 Vitamin D, 25-hydrox y measurement Dr. Luna Ashton DO Work Phone: Comment on above: Vitamin D StatusDefi ciency: <20 ng/mL (50nmol/L)Insufficiency: 20-30 ng/mL (50-75 nmol/L)Sufficiency: 30-100 ng/mL (75-250 nmol/L)Toxicity: >100 ng/mL (>250 nmol/L) Start: 12-03-[address] Zen Ashton DO Work Phone: Start: 11-25-2024 MRI of lumbar spine Dr. Luna Ashton DO Work Phone: Start: 11-15-2024 X-ray of lumbar spin e, two or three views Dr. Luna Ashton DO Work Phone: Start: 10-04-[address] Luna Ashton DO Work Phone: Start: 08-14-2021 X-ray of lumbar spin e, two or three views Dr. Luna Ashton Work Phone: Start: 03-20-2021 Plain X-ray of shoulder Dr. Luna Ashton Work Phone: Plan of Treatment Date Care Activity Detail Author Start: 01-16-2025 Serum immunofixation [facility] Start: 01-16-2025 [facility] Start: 01-09-2025 [facility] Start: 01-02-2025 End: 01-02-2025 [facility] Start: 12-29-2024 End: 12-29-2024 -[facility] Work Phone: Start: 12-26-2024 End: 12-26-2024 -[facility] Work Phone: Start: 12-19-2024 Administration of blood product [facility] Start: 12-19-2024 [facility] Start: 12-19-2024 End: 12-19-2024 -[facility] Work Phone: Start: 12-19-2024 Disease process or condition education [facility] Start: 12-12-2024 Patient discharge [facility] Start: 12-12-2024 Administration of blood product [facility] Start: 12-12-2024 Referral to service [facility] Start: 12-12-2024 Removal of urinary catheter [facility] Start: 12-11-2024 Complete blood count [facility] Start: 12-10-2024 Care of hemodialysis equipment [facility] Start: 12-10-2024 Hemodialysis care [facility] Start: 12-10-2024 [facility] Start: 12-10-2024 Complete blood count [facility] Start: 12-09-2024 End: 12-10-2024 [facility] Start: 12-09-2024 Catheterization of vein [facility] Start: 12-09-2024 Oxygen therapy [facility] Start: 12-09-2024 Vital signs measurements [facility] Start: 12-09-2024 Administration of blood product [facility] Start: 12-09-2024 Care of hemodialysis equipment [facility] Start: 12-09-2024 Hemodialysis care [facility] Start: 12-09-2024 Complete blood count [facility] Start: 12-08-2024 Consultation [facility] Start: 12-08-2024 Care of hemodialysis equipment [facility] Start: 12-08-2024 Hemodialysis care [facility] Start: 12-08-2024 [facility] Start: 12-08-2024 Complete blood count [facility] Start: 12-08-2024 Continuous positive airway pressure ventilation treatment [facility] Start: 2024 Care of hemodialysis equipment [facility] Start: 2024 Hemodialysis care [facility] Start: 2024 End: 2024 [facility] Start: 2024 Complete blood count [facility] Start: 12-06-2024 [facility] Start: 12-06-2024 Complete blood count [facility] Start: 12-06-2024 Inhalation therapy procedure [facility] Start: 12-05-2024 Referral to general surgeon [facility] Start: 12-05-2024 [facility] Start: 12-04-2024 [facility] Start: 12-03-2024 [facility] Start: 12-03-2024 Serum immunofixation [facility] Start: 12-03-2024 Urine protein electrophoresis [facility] Start: 12-03-2024 Application of intermittent pneumatic compression device [facility] Start: 12-03-2024 End: 12-03-2024 Following clinical pathway protocol [facility] Start: 12-03-2024 Assessment of risk of venous thromboembolism [facility] Start: 12-03-2024 Care regimes management [facility] Start: 12-03-2024 Insertion of catheter into peripheral vein [facility] Start: 12-03-2024 Measuring intake and output [facility] Start: 12-03-2024 Notification of physician [facility] Start: 12-03-2024 Providing care according to standard [facility] Start: 12-03-2024 Provision of activity privileges [facility] Start: 12-03-2024 Referral for physical therapy [facility] Start: 12-03-2024 Referral to jewelry facer [facility] Start: 12-03-2024 Referral to occupational therapist [facility] Start: 12-03-2024 Referral to service [facility] Start: 12-03-2024 End: 12-03-2024 [facility] Start: 12-03-2024 Verification routine [facility] Start: 12-03-2024 Admission procedure [facility] Start: 12-03-2024 Urine culture Urine Culture [facility] Start: 12-03-2024 Patient referral to dietitian [facility] Start: 11-25-2024 MRI of lumbar spine Spine Lumbar (Routine) [facility] Start: 11-25-2024 Patient encounter procedure Registered Clinical -MRI - [facility] Work Phone: Albumin [Moles/volum e] in Serum or Plasma [facility] Albumin/Globulin ratio [facility] Anion gap in Serum o r Plasma [facility] Anion gap in Serum o r Plasma [facility] Anion gap in Serum o r Plasma [facility] Anion gap in Serum o r Plasma [facility] Anion gap in Serum o r Plasma [facility] Anion gap in Serum o r Plasma [facility] BUN/Creatinine ratio [facility] BUN/Creatinine ratio [facility] BUN/Creatinine ratio [facility] BUN/Creatinine ratio [facility] BUN/Creatinine ratio [facility] BUN/Creatinine ratio [facility] Calcium [Mass/volume ] in Serum or Plasma [facility] Calcium [Mass/volume ] in Serum or Plasma [facility] Calcium [Mass/volume ] in Serum or Plasma [facility] Calcium [Mass/volume ] in Serum or Plasma [facility] Calcium [Mass/volume ] in Serum or Plasma [facility] Calcium [Mass/volume ] in Serum or Plasma [facility] Carbon dioxide, tota l [Moles/volume] in Central venous blood [facility] Carbon dioxide, tota l [Moles/volume] in Central venous blood [facility] Carbon dioxide, tota l [Moles/volume] in Central venous blood [facility] Carbon dioxide, tota l [Moles/volume] in Central venous blood [facility] Carbon dioxide, tota l [Moles/volume] in Central venous blood [facility] Carbon dioxide, tota l [Moles/volume] in Central venous blood [facility] Cardiovascular stres s testing [facility] CBC W Auto Different ial panel - Blood [facility] CBC W Auto Different ial panel - Blood [facility] Complement C3 [Mass/ volume] in Serum or Plasma [facility] Complement C4 [Mass/ volume] in Serum or Plasma [facility] Comprehensive metabo lic 2000 panel - Serum or Plasma [facility] Creatinine [Mass/vol ume] in Serum or Plasma [facility] Creatinine [Mass/vol ume] in Serum or Plasma [facility] Creatinine [Mass/vol ume] in Serum or Plasma [facility] Creatinine [Mass/vol ume] in Serum or Plasma [facility] Creatinine [Mass/vol ume] in Serum or Plasma [facility] Creatinine [Mass/vol ume] in Serum or Plasma [facility] CT Abdomen W contrast IV [facility] DNA double strand Ab [Units/volume] in Serum [facility] Electrophoresis: [id number] [facility] Electrophoresis: bashir ma globulin [facility] Erythrocyte mean corpuscular volume determination [facility] Erythrocyte mean corpuscular volume determination [facility] Erythrocyte mean corpuscular volume determination [facility] Erythrocyte mean corpuscular volume determination [facility] Erythrocyte mean corpuscular volume determination [facility] Erythrocyte mean corpuscular volume determination [facility] Fluid sample globulin level [facility] Globulin measurement [facility] Glomerular basement membrane Ab [Units/volume] in Serum [facility] Glucose [Mass/volume ] in Serum or Plasma [facility] Glucose [Mass/volume ] in Serum or Plasma [facility] Glucose [Mass/volume ] in Serum or Plasma [facility] Glucose [Mass/volume ] in Serum or Plasma [facility] Glucose [Mass/volume ] in Serum or Plasma [facility] Glucose [Mass/volume ] in Serum or Plasma [facility] Hematocrit [Volume Fraction] of Blood [facility] Hematocrit [Volume Fraction] of Blood [facility] Hematocrit [Volume Fraction] of Blood [facility] Hematocrit [Volume Fraction] of Blood [facility] Hematocrit [Volume Fraction] of Blood [facility] Hematocrit [Volume Fraction] of Blood [facility] Hemoglobin [Mass/vol ume] in Blood [facility] Hemoglobin [Mass/vol ume] in Blood [facility] Hemoglobin [Mass/vol ume] in Blood [facility] Hemoglobin [Mass/vol ume] in Blood [facility] Hemoglobin [Mass/vol ume] in Blood [facility] Hemoglobin [Mass/vol ume] in Blood [facility] IgA [Mass/volume] in Serum or Plasma [facility] IgG [Mass/volume] in Serum or Plasma [facility] IgM [Mass/volume] in Serum or Plasma [facility] [place]/lambda light c dax ratio [facility] Laboratory data interpretation [facility] Lambda light chains. free [Mass/volume] in Serum or Plasma [facility] Leukocytes [#/volume ] in Blood [facility] Leukocytes [#/volume ] in Blood [facility] Leukocytes [#/volume ] in Blood [facility] Leukocytes [#/volume ] in Blood [facility] Leukocytes [#/volume ] in Blood [facility] Leukocytes [#/volume ] in Blood [facility] Mean corpuscular hem oglobin concentration determination [facility] Mean corpuscular hem oglobin concentration determination [facility] Mean corpuscular hem oglobin concentration determination [facility] Mean corpuscular hem oglobin concentration determination [facility] Mean corpuscular hem oglobin concentration determination [facility] Mean corpuscular hem oglobin concentration determination [facility] Mean corpuscular hem oglobin determination [facility] Mean corpuscular hem oglobin determination [facility] Mean corpuscular hem oglobin determination [facility] Mean corpuscular hem oglobin determination [facility] Mean corpuscular hem oglobin determination [facility] Mean corpuscular hem oglobin determination [facility] Measurement of monoc lonal protein concentration [facility] Measurement of renal function [facility] Measurement of renal function [facility] Measurement of renal function [facility] Measurement of renal function [facility] Measurement of renal function [facility] Measurement of renal function [facility] MR Lumbar spine WO a nd W contrast IV [facility] Neutrophil cytoplasm ic Ab.classic [Units/volume] in Serum [facility] P-ANCA measurement [facility] Patient Education [facility] Work Phone: Platelets [#/volume] in Blood [facility] Platelets [#/volume] in Blood [facility] Platelets [#/volume] in Blood [facility] Platelets [#/volume] in Blood [facility] Platelets [#/volume] in Blood [facility] Platelets [#/volume] in Blood [facility] Potassium measurement [facility] Potassium measurement [facility] Potassium measurement [facility] Potassium measurement [facility] Potassium measurement [facility] Potassium measurement [facility] Protein [Mass/volume ] in Urine [facility] Protein electrophore sis panel - Serum or Plasma [facility] Protein measurement, urine [facility] Red blood cell count [facility] Red blood cell count [facility] Red blood cell count [facility] Red blood cell count [facility] Red blood cell count [facility] Red blood cell count [facility] Red cell distributio n width determination [facility] Red cell distributio n width determination [facility] Red cell distributio n width determination [facility] Red cell distributio n width determination [facility] Red cell distributio n width determination [facility] Red cell distributio n width determination [facility] Serum chloride measurement [facility] Serum chloride measurement [facility] Serum chloride measurement [facility] Serum chloride measurement [facility] Serum chloride measurement [facility] Serum chloride measurement [facility] Sodium measurement [facility] Sodium measurement [facility] Sodium measurement [facility] Sodium measurement [facility] Sodium measurement [facility] Sodium measurement [facility] Urea nitrogen [Mass/ volume] in Serum or Plasma [facility] Urea nitrogen [Mass/ volume] in Serum or Plasma [facility] Urea nitrogen [Mass/ volume] in Serum or Plasma [facility] Urea nitrogen [Mass/ volume] in Serum or Plasma [facility] Urea nitrogen [Mass/ volume] in Serum or Plasma [facility] Urea nitrogen [Mass/ volume] in Serum or Plasma [facility] Urine albumin measurement [facility] Urine kappa light ch ain measurement [facility] US Gallbladder [facility] XR Lumbar spine 2 or 3 Views [facility] Work Phone: [facility] Immunizations Immunization Date Immunization Notes [facility] Seasonal trivalent influenza vaccine, adjuvanted, preservative free Dr. Luna Ashton DO Work Phone: [facility] 10-31-2023 influenza, high dose seasonal, preservative-free Dr. Luna Ashton DO Work Phone: [facility] 10-31-2023 Pfizer Covid-19 (Comirnaty) Dr. Luna Ashton DO Work Phone: [facility] 02-05-2023 RSV Adult BiValent (Abrysvo) Dr. Luna Ashton DO Work Phone: [facility] 11-11-2022 influenza, injectabl e, quadrivalent, preservative free Dr. Luna Ashton Work Phone: [facility] 02-02-2021 Covid (Pfizer) Dr. Luna hollins Work Phone: [facility] 05-24-2020 Covid (Pfizer) Dr. Luna hollins Work Phone: [facility] 05-03-2020 Covid (Pfizer) Dr. Luna hollins Work Phone: [facility] 11-02-2019 Fluad Quad [id number](65yr up)(PF) 60 mcg (15 mcg x 4)/0.5mL IM syringe (flu vac Dr. Luna Ashton Work Phone: [facility] Work Phone: 01-12-2019 Fluad 2018- 65yr up(PF)45 mcg(15 mcgx3)/0.5 mL intramuscular syringe (flu vac Dr. Luna Ashton Work Phone: [facility] Work Phone: 11-18-[address] Luna Ashton Work Phone: [facility] 11-18-2017 Dr. Luna collins DO Work Phone: [facility] 01-23-2009 novel influenza-H1N1 -09, preservative-free, injectable Dr. Luna Ashton Work Phone: [facility] 03-24-2003 TD(adult) unspecifie d formulation Dr. Luna Ashton Work Phone: [facility] Payers Date Payer Category Payer Medicare [id number] 2024 Medicare 2024 Self-pay [id number] 2024 Self-pay [id number] 2009 Unknown [id number] Medicare [id number] Unknown [id number] 2.16.8 [id number] Unknown [id number] 2.16.8 [id number] Unknown [id number] 2.16.8 [id number] Unknown [id number] 2.16.8 [id number] Unknown [id number] 2.16.8 [id number] Unknown [id number] 2.16.8 [id number] Unknown [id number] 2.16.8 [id number] Unknown [id number] 2.16.8 40.1.896153.3.579.2.462 Unknown [id number] 2.16.8 40.1.071099.3.579.2.462 Unknown [id number] 2.16.8 40.1.914656.3.579.2.462 Unknown [id number] 2.16.8 40.1.841379.3.579.2.462 Unknown [id number] 2.16.8 40.1.121887.3.579.2.462 Unknown [id number] 2.16.8 40.1.117923.3.579.2.462 Unknown [id number] 2.16.8 40.1.584660.3.579.2.462 Unknown [id number] 2.16.8 40.1.033509.3.579.2.462 Unknown [id number] 2.16.8 40.1.459977.3.579.2.462 Unknown [id number] 2.16.8 40.1.944154.3.579.2.462 Unknown [id number] 2.16.8 40.1.187213.3.579.2.462 Unknown [id number] 2.16.8 40.1.057812.3.579.2.462 Unknown [id number] 2.16.8 40.1.783253.3.579.2.462 Unknown [id number] 2.16.8 40.1.848926.3.579.2.462 Unknown [id number] 2.16.8 40.1.618146.3.579.2.462 Unknown [id number] 2.16.8 40.1.876297.3.579.2.462 Unknown [id number] 2.16.8 40.1.419001.3.579.2.462 Unknown [id number] 2.16.8 40.1.243381.3.579.2.462 Unknown [id number] 2.16.8 40.1.519860.3.579.2.462 Unknown [id number] 2.16.8 40.1.765819.3.579.2.462 Unknown [id number] 2.16.8 40.1.055186.3.579.2.462 Unknown [id number] 2.16.8 40.1.988978.3.579.2.462 Unknown [id number] 2.16.8 40.1.457670.3.579.2.462 Unknown [id number] 2.16.8 40.1.984263.3.579.2.462 Unknown [id number] 2.16.8 40.1.739775.3.579.2.462 Unknown [id number] 2.16.8 40.1.430444.3.579.2.462 Unknown [id number] 2.16.8 40.1.158773.3.579.2.462 Unknown [id number] 2.16.8 40.1.362117.3.579.2.462 Social History Date Type Detail Facility Start: 05-10-2021 End: 12-10-2022 Tobacco smoking status LAIS Unknown if ever smoked [facility] Start: 1940 Sex Assigned At Male [facility] Start: 05-13-2023 End: 12-14-2024 Tobacco smoking status NHIS Ex-smoker (finding) [facility] Sex [facility] Start: 12-03-2024 Tobacco smoking stat us LAIS Never smoked tobacco (finding) [facility] Medical Equipment Procedure Code Equipment Code Equipment Origin al Text Equipment Identifier Dates Insertion, catheter, hemodialysis FDA Start: 12-06-2024 Insertion, catheter, hemodialysis FDA Start: 12-06-2024 Insertion, catheter, hemodialysis FDA Start: 12-06-2024 Blood Sugar Diagnostic (True Metrix Glucose Test [...] 30 gauge misc Start: 11-24-2022 Pen Needle, Diabetic (Carefine Pen Needle) 29 gauge x 1/2 [...] 30 gauge misc Start: 09-29-2024 Pen Needle, Diabetic (Carefine Pen Needle) 29 gauge x 1/2 [...] misc Start: 11-17-2023 End: 03-22-2024 Pen Needle, Diabetic (Carefine Pen Needle) 29 gauge x 1/2 needle Start: 05-13-2023 End: 03-29-2024 Pen Needle, Diabetic (Carefine Pen Needle) 29 gauge x 1/2 needle Start: 11-14-2022 End: 05-13-2023 Pen Needle, Diabetic (Carefine Pen Needle) 29 gauge x 1/2 needle Start: 03-29-2024 End: 09-29-2024 Blood Sugar Diagnostic (True Metrix Glucose Test Strip) strip Start: 02-11-2023 Lancets (Unilet Lancets) 30 gauge misc Start: 09-29-2024 Pen Needle, Diabetic (Carefine Pen Needle) 29 gauge x 1/2 [...] misc Start: 11-17-2023 End: 03-22-2024 Pen Needle, Diabetic (Carefine Pen Needle) 29 gauge x 1/2 needle Start: 05-13-2023 End: 03-29-2024 Pen Needle, Diabetic (Carefine Pen Needle) 29 gauge x 1/2 needle Start: 11-14-2022 End: 05-13-2023 Pen Needle, Diabetic (Carefine Pen Needle) 29 gauge x 1/2 needle Start: 03-29-2024 End: 09-29-2024 Blood Sugar Diagnostic (True Metrix Glucose Test Strip) strip Start: 02-11-2023 Lancets (Unilet Lancets) 30 gauge misc Start: 09-29-2024 Pen Needle, Diabetic (Carefine Pen Needle) 29 gauge x 1/2 [...] misc Start: 11-17-2023 End: 03-22-2024 Pen Needle, Diabetic (Carefine Pen Needle) 29 gauge x 1/2 needle Start: 05-13-2023 End: 03-29-2024 Pen Needle, Diabetic (Carefine Pen Needle) 29 gauge x 1/2 needle Start: 11-14-2022 End: 05-13-2023 Pen Needle, Diabetic (Carefine Pen Needle) 29 gauge x 1/2 needle Start: 03-29-2024 End: 09-29-2024 Blood Sugar Diagnostic (True Metrix Glucose Test Strip) strip Start: 02-11-2023 Lancets (Unilet Lancets) 30 gauge misc Start: 09-29-2024 Pen Needle, Diabetic (Carefine Pen Needle) 29 gauge x 1/2 [...] misc Start: 11-17-2023 End: 03-22-2024 Pen Needle, Diabetic (Carefine Pen Needle) 29 gauge x 1/2 needle Start: 05-13-2023 End: 03-29-2024 Pen Needle, Diabetic (Carefine Pen Needle) 29 gauge x 1/2 needle Start: 11-14-2022 End: 05-13-2023 Pen Needle, Diabetic (Carefine Pen Needle) 29 gauge x 1/2 needle Start: 03-29-2024 End: 09-29-2024 Blood Sugar Diagnostic (True Metrix Glucose Test Strip) strip Start: 02-11-2023 Lancets (Unilet Lancets) 30 gauge misc Start: 09-29-2024 Pen Needle, Diabetic (Carefine Pen Needle) 29 gauge x 1/2 [...] misc Start: 11-17-2023 End: 03-22-2024 Pen Needle, Diabetic (Carefine Pen Needle) 29 gauge x 1/2 needle Start: 05-13-2023 End: 03-29-2024 Pen Needle, Diabetic (Carefine Pen Needle) 29 gauge x 1/2 needle Start: 11-14-2022 End: 05-13-2023 Pen Needle, Diabetic (Carefine Pen Needle) 29 gauge x 1/2 needle Start: 03-29-2024 End: 09-29-2024 Blood Sugar Diagnostic (True Metrix Glucose Test Strip) strip Start: 02-11-2023 Lancets (Unilet Lancets) 30 gauge misc Start: 09-29-2024 Pen Needle, Diabetic (Carefine Pen Needle) 29 gauge x 1/2 [...] misc Start: 11-17-2023 End: 03-22-2024 Pen Needle, Diabetic (Carefine Pen Needle) 29 gauge x 1/2 needle Start: 05-13-2023 End: 03-29-2024 Pen Needle, Diabetic (Carefine Pen Needle) 29 gauge x 1/2 needle Start: 11-14-2022 End: 05-13-2023 Pen Needle, Diabetic (Carefine Pen Needle) 29 gauge x 1/2 needle Start: 03-29-2024 End: 09-29-2024 Blood Sugar Diagnostic (True Metrix Glucose Test Strip) strip Start: 02-11-2023 Lancets (Unilet Lancets) 30 gauge misc Start: 09-29-2024 Pen Needle, Diabetic (Carefine Pen Needle) 29 gauge x 1/2 [...] misc Start: 11-17-2023 End: 03-22-2024 Pen Needle, Diabetic (Carefine Pen Needle) 29 gauge x 1/2 needle Start: 05-13-2023 End: 03-29-2024 Pen Needle, Diabetic (Carefine Pen Needle) 29 gauge x 1/2 needle Start: 11-14-2022 End: 05-13-2023 Pen Needle, Diabetic (Carefine Pen Needle) 29 gauge x 1/2 needle Start: 03-29-2024 End: 09-29-2024 Blood Sugar Diagnostic (True Metrix Glucose Test Strip) strip Start: 02-11-2023 Lancets (Unilet Lancets) 30 gauge misc Start: 09-29-2024 Pen Needle, Diabetic (Carefine Pen Needle) 29 gauge x 1/2 [...] misc Start: 11-17-2023 End: 03-22-2024 Pen Needle, Diabetic (Carefine Pen Needle) 29 gauge x 1/2 needle Start: 05-13-2023 End: 03-29-2024 Pen Needle, Diabetic (Carefine Pen Needle) 29 gauge x 1/2 needle Start: 11-14-2022 End: 05-13-2023 Pen Needle, Diabetic (Carefine Pen Needle) 29 gauge x 1/2 needle Start: 03-29-2024 End: 09-29-2024 Goals Date Patient Goal Desired Activity /State Functional Status Date Assessment Result Facility 12-12-2024 Functional status Ambulates [facility] Work Phone: 12-05-2024 Functional status Ambulates [facility] Work Phone: Mental Status Date Assessment Result Facility 12-12-2024 Cognitive function Voice/Name [facility] Work Phone: 12-05-2024 Cognitive function Voice/Name [facility] Work Phone: Clinical Notes 06-21-2024 to 12-19-2024 Note Date & Type Note Facility 12-19-2024 Progress note Note Date/Time December 19, 2024 1:44pm [facility] [address] [place] [address] OFFICE VISIT Date of Service: 12/19/24 1205 MR#: [id number] Acct: [id number] Name: LINA VARGAS Rep #: [id number] : 1940 From: Adalid arciniega MD Age/Sex: 84/M Location: [facility] Status: Signed HPI Subjective Date of Service 12/19/24 Chief Complaint Multiple myeloma History of Present Illness 84-year-old gentleman who was in his usual state of health until October 2024 when he developed acute back pain after lifting up a 40 pound heavy container of water and was found to have developed a compression fracture of L1 vertebra. November 25, 2024 lumbar spine MRI: IMPRESSION: Acute-subacute superior endplate compression fracture of L1, with minimal heightloss and no retropulsion. This fracture was noted on 11/15/2024 radiographs, but is new since 07/10/2022. Multilevel spondylotic changes, as described above. Moderate-advanced spinal canal stenosis at L2-3 and L3-4, with crowding/impingement of the cauda equina at these levels. Neural foraminal narrowing is most advanced bilaterally at L3-4. More mild elsewhere. December 032024: Patient was hospitalized with acute on chronic kidney failure, anemia and malignant hypercalcemia. The patient had to be started and discharged on dialysis. 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 December 08, 2024 skeletal survey: IMPRESSION: 1. Subtle round lucencies within the bilateral humeri and right radius, concerning for underlying malignancy. 2. Questionable moth-eaten appearance of the inferior aspects of the bony pelviscould be due to summation of shadows and overlying structures, however an infiltrative process can not be excluded. December 09, 2024 bone marrow aspirate and biopsy: Lambda light chain restricted plasma cell neoplasm, hypercellular marrow (50%), adequate iron. Plasma cells 44% on aspirate smear. Cytogenetics and FISH are pending. Treatment summary and response: Daratumumab Velcade, Dex (DVd) December 19, 2024 Interval History Back pain less when he started steroids. Blood sugar went up and he was given instructions for short acting insulin by Dr. Orozco. [facility] Medical History Type II diabetes mellitus Anemia Multiple myeloma CKD (chronic kidney disease) stage 1, GFR 90 ml/min or greater Trigger finger of right hand Apical variant hypertrophic cardiomyopathy HLD (hyperlipidemia) Shingles (herpes zoster) polyneuropathy Acute urticaria GERD (gastroesophageal reflux disease) Hypothyroidism Surgical History History of back surgery History of left knee surgery History of appendectomy History of cardiac cath Family History Father Heart disease Mother CVA (cerebral vascular accident) Hypertension Breast cancer Social History Smoking Status: Former smoker Tobacco: How many years used: 2 how long ago did patient quit smokin alcohol intake: never substance use type: does not use ROS ROS Narrative See December 14, 2024 Intake Vital Signs 12/14/24 14:40 12/19/24 12:06 12/19/24 12:12 Height 6 ft 6 ft 6 ft Weight: 77.111 kg BMI 23.0 BP 138/67 H Blood Pressure Location Lt brachial Position Sitting Respiration 18 Pulse 63 Pulse Source Monitor Temp 97.6 F L Temperature Source Temporal Artery Pulse Oximetry (%) 91 Oxygen Delivery Method room air Intake Is patient in pain?: Yes (back pain ) Allergies meloxicam (From Mobic) Allergy (Severe, Verified 12/19/24 12:10) unknown pentazocine (From Talwin) Allergy (Severe, Verified 12/19/24 12:10) unknown metaxalone Adverse Reaction (Intermediate, Verified 12/19/24 12:10) Nausea Medications ?Medication ?Instructions ?Recorded ?Confirmed ?Type blood sugar diagnostic (True #100 ea 02/11/23 12/19/24 Rx Metrix Glucose Test Strip) blood-glucose meter #1 ea 02/11/23 12/19/24 Rx atorvastatin 20 mg tablet 20 mg PO QDAY #90 tabs 09/2912/19/24 Rx lancets 30 gauge (Unilet Lancets) #100 ea 09/29/24 Rx levothyroxine 100 mcg tablet 100 mcg PO DAILY #100 tab s 09/29/24 12/19/24 Rx pen needle, diabetic 29 gauge x #100 ea 09/29/2412/19 Rx 1/2 (CareFine Pen Needle) ondansetron 4 mg disintegrating 4 mg PO Q8H PRN nausea and 11/29/24 12/19/24 Rx tablet vomiting #14 tabs insulin glargine 100 unit/mL (3 21 unit subcut QHS 06/2412/19/24 History mL) subcutaneous pen (Lantus Solostar U-100 Insulin) magnesium 250 mg tablet 250 mg PO QHS 12/03/2412/19 History amlodipine 5 mg tablet 5 mg PO DAILY 30 days #30 ta bs 12/12/24 12/19/24 Rx metoprolol tartrate 25 mg tablet 25 mg PO BID 30 days #60 tabs 12/12/24 12/19/24 Rx mirtazapine 15 mg tablet 7.5 mg (1/2 x 15 mg) PO QHS 30 12/12/24 12/19/24 Rx days #15 tabs acyclovir 200 mg capsule 200 mg PO BID #60 caps 12/1412/19/24 Rx dexamethasone 4 mg tablet 40 mg (10 x 4 mg) PO QDAY #9 0 tabs 12/14/24 12/19/24 Rx omeprazole 20 mg capsule,delayed 20 mg PO BID #100 cap s 12/14/24 12/19/24 Rx release insulin lispro 100 unit/mL 1 sliding scale dose subcut QACHS 12/15/24 12/19/24 Rx subcutaneous pen (Humalog KwikPen #15 mL (U-100) Insulin) aspirin 81 mg tablet 81 mg PO QDAY 12/19/2412/19 History Have you fallen in the past year?: No Central Venous Access Central Venous Access: Yes Port/PICC: Port See under HPI Laboratory Tests 03/22/24 12/03/24 12/03/24 10:03 14:24 20:12 WBC Hgb 10.7 L Plt Count Creatinine 1.52 H 8.56 H* Calcium 14.6 H* OMERO M-David Comment: Free [place] LC, Quant Free Lambda LC, Quant Free [place]/Lambda Ratio 12/04/24 12/05/24 12/12/24 03:43 05:04 04:45 WBC 3.6 L Hgb 7.9 L Plt Count 147 L Creatinine 5.84 H Calcium 10.3 OMERO M-David Free [place] LC, Quant 23.3 H Free Lambda LC, Quant 1177.7 H Free [place]/Lambda Ratio 0.02 L Exam Physical Exam Narrative ECOG 2, seen in a wheelchair Const alert, oriented x3 and no apparent distress Coding Level of Care Code Off vis,est,level 3 Exam Problem Focused Diagnoses Multiple myeloma C90.00 Anemia D64.9 Acute renal failure N17.9 Assessment and Plan Assessment and Plan (1) Multiple myeloma: Status: Acute (2) Anemia: Status: Chronic (3) Acute renal failure: Status: Acute Plan 84-year-old gentleman with IgA lambda multiple myeloma presenting October - November 2024 with acute back pain due to compression fracture of L1, acute on chronic renal failure, malignant hypercalcemia, anemia. 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 Patient started on dialysis November 2024. Hypercalcemia resolved with vigorous hydration. Chronic comorbid conditions: Diabetes, peripheral neuropathy, chronic renal failure, dyslipidemia, coronary artery disease, hypertension, hypothyroidism, chronic GERD. Plan: Based on NCCN guidelines on up-to-date review of initial management of multiple myeloma and presence of acute renal failure: 1. Start December 19, 2024 systemic triple therapy with Velcade, daratumumab anddexamethasone. 2. VTE prophylaxis with low-dose aspirin. 3. Shingles prophylaxis with acyclovir and ensuring he is up-to-date with shingles vaccine. Stay up-to-date with flu and pneumococcal vaccinations. 4. Palliative referral for symptom management and medical management of back pain. 5. Patient was seen and is to follow-up with pain management with planned procedural pain relief for his back pain December 20, 2024. 6. Patient has been referred to outpatient physical therapy. 7. Continue with dialysis as per nephrology. There is probability with treatment of myeloma he may be able to come off dialysis. 8. Dental clearance for bone supportive therapy obtained and is to start denosumab. Bisphosphonates will not be used because of advanced kidney failure. 10. Transfused with packed red blood cells for hemoglobin less than 8 g per DL. Can coordinate with dialysis sessions. 11. Medical management including diabetes expected worsening on the days of steroids deferred to Dr. Ashton. Patient was seen with his impression and plan discussed. Adalid King MD Network Planner, [facility] Divisions of Medical Oncology & Hematology Department of Internal Medicine [place] [id number] Insert dragon Clinical Quality Measures Falls Risk Screening/Assistive Devices Have you fallen in the past year?: No 12/19/24 1244 <Electronically signed by Adalid bustos MD> Date _ [facility]id [facility] MD [facility] Signature: Date (if applicable) CC: Dr. Luna Ashton, DO ~ [employer] Work Phone: [phone] Radiology Diagnostic study [facility]10-13-2025 Consult note Author Analia Arredondo [facility] Note Date/Time December 12, 2024 3 :44pm [facility] Medical Records Department [address] [place] [address] Counseling Note - Pharmacy 12/12/24 1543 MR#: [id number] Acct: [id number] Name: LINA VARGAS Rep #:[id number] : 1940 84 From: Analia Arredondo PCP: Dr. Luna Ashton, DO Status:AD M IN Y [facility] Counseling Pharmacy Service has performed discharge medication reconciliation and counseling for this patient. 1. AMLODIPINE 5MG PO DAILY 2. METOPROLOL TARTRATE 25MG PO BID 3. MIRTAZAPINE 7.5MG PO QHS 4. STOP JANUVIA, METFORMIN, LOSARTAN/HCTZ 5. DECREASE LANTUS TO 5UNITS QHS The patient's discharge medication list was reviewed for discrepancies and discrepancies were resolved. The patient was counseled on the following discharge medications and changes in medications for homegoing were reviewed. The Reason for Use, instructions for use, and potential side effects were reviewed for all new medications. The patient's questions regarding all of their medications were answered. The patient was able to verbally demonstrate an understanding of their dischargemedications. Medications at Discharge Home Medications blood sugar diagnostic (True Metrix Glucose Test Strip) #100 ea 02/11/23 blood-glucose meter #1 ea 02/11/23 atorvastatin 20 mg tablet 20 mg PO QDAY #90 tabs 09/29/24 lancets 30 gauge (Unilet Lancets) #100 ea 09/29/24 levothyroxine 100 mcg tablet 100 mcg PO DAILY #100 tabs 09/29/24 omeprazole 20 mg capsule,delayed release 20 mg PO DAILY #100 caps 09/29/24 pen needle, diabetic 29 gauge x 1/2 (CareFine Pen Needle) #100 ea 09/29/24 ondansetron 4 mg disintegrating tablet 4 mg PO Q8H PRN nausea and vomiting #14 tabs 11/29/24 insulin glargine 100 unit/mL (3 mL) subcutaneous pen (Lantus Solostar U-100 Insulin) 21 unit subcut QHS 12/03/24 magnesium 250 mg tablet 250 mg PO QHS 12/03/24 amlodipine 5 mg tablet 5 mg PO DAILY 30 days #30 tabs 12/12/24 metoprolol tartrate 25 mg tablet 25 mg PO BID 30 days #60 tabs 12/12/24 mirtazapine 15 mg tablet 7.5 mg (1/2 x 15 mg) PO QHS 30 days #15 tabs 12/12/24 12/12/24 1544 <Electronically signed by Analia Arredondo> Date _ Analia Arredondo Cosigner Signature (if applicable): Date CC: ~ Signed [facility] Work Phone: 1(832) 461-387710-13-2025 Discharge summary Author Suraj Paz [facility] Note Date/Time December 12, 2024 3 :11pm [facility] Medical Records Department [address] [place] [address] Discharge Summary 12/12/24 1451 MR#: [id number] Acct: [id number] Name: LINA VARGAS Rep #:[id number] : 1940 84 From: Suraj mcclendon MD PCP: Dr. Luna Ashton, DO Status:[facility] Providers Date of Admission: 12/03/24 Primary Care Physician: Dr. Luna Ashton, DO Consultations 12/03/24 17:47 Consult: Nephrology Routine Consulting Provider: Alyssia Bah Reason for Consult: Acute renal failure EMERGENT Consult: No MD Notified: Yes Date Notified: 12/03/24 Time Notified: 17:27 Method of Notification: Verbal 12/05/24 14:43 Consult: General Surgery Routine Consulting Provider: Henry Evans Reason for Consult: tunneled HD catheter to start dialysis EMERGENT Consult: No MD Notified: Yes Date Notified: 12/05/24 Time Notified: 14:55 Method of Notification: Text 12/08/24 08:58 Consult: Oncology/Hematology Routine Consulting Provider: *[facility] Reason for Consult: Cindy/Quiñones ration 0.02, anemia, DEANGELO, high Ca, concern for MM EMERGENT Consult: No MD Notified: Yes Date Notified: 12/08/24 Time Notified: 09:06 Method of Notification: Text Reason For Visit: ACUTE KIDNEY FAILURE Diagnosis Discharge Diagnosis (1) Acute renal failure: Status: Acute Code(s): N17.9 - Acute kidney failure, unspecified (2) Hypercalcemia: Status: Acute Code(s): E83.52 - Hypercalcemia Medications at Discharge Home Medications blood sugar diagnostic (True Metrix Glucose Test Strip) #100 ea 02/11/23 blood-glucose meter #1 ea 02/11/23 atorvastatin 20 mg tablet 20 mg PO QDAY #90 tabs 09/29/24 lancets 30 gauge (Unilet Lancets) #100 ea 09/29/24 levothyroxine 100 mcg tablet 100 mcg PO DAILY #100 tabs 09/29/24 omeprazole 20 mg capsule,delayed release 20 mg PO DAILY #100 caps 09/29/24 pen needle, diabetic 29 gauge x 1/2 (CareFine Pen Needle) #100 ea 09/29/24 ondansetron 4 mg disintegrating tablet 4 mg PO Q8H PRN nausea and vomiting #14 tabs 11/29/24 insulin glargine 100 unit/mL (3 mL) subcutaneous pen (Lantus Solostar U-100 Insulin) 21 unit subcut QHS 12/03/24 magnesium 250 mg tablet 250 mg PO QHS 12/03/24 amlodipine 5 mg tablet 5 mg PO DAILY 30 days #30 tabs 12/12/24 metoprolol tartrate 25 mg tablet 25 mg PO BID 30 days #60 tabs 12/12/24 mirtazapine 15 mg tablet 7.5 mg (1/2 x 15 mg) PO QHS 30 days #15 tabs 12/12/24 Hospital Course Operations None Procedures 2-D Echocardiogram and Dialysis Summary of Care Provided Minutes Spent on Discharge: 38 Hospital Course: Per HPI: LINA VARGAS, is a 83-year-old male history of hypothyroidism, diabetes,GERD, hypertension who presented to [facility] ED 12/03/24 with nausea and vomiting. He was recently diagnosed with an L1 compression fracture and has an upcoming kyphoplasty. Currently feeling dehydrated and has had intermittent nausea and vomiting for weeks. Also feeling generally weak and unwell. In the ED temp 96.5, heart rate 88, blood pressure 167/80, respiratory rate 16 pulse ox 97% on room air. CBC with white count of 8, hemoglobin 10.7, platelet count 206. Sodium 126, bicarb 19.5, gap of 23, BUN 113 with a creatinine of 8.56, glucose 58 and calcium 14.6. Patient given 2 L of IV fluidsand hospitalist consulted for admission for acute kidney failure. Patient evaluated bedside with present. They report that he was found to have a compression fracture at the end of September, since that time he is intermittently been having problems with nausea and vomiting, he is felt generally weak and hadvery poor p.o. intake specially for the past 2 weeks. Had been urinating with alittle bit of burning at times and suprapubic discomfort however in the ED unable to urinate. Denies any diarrhea and reports he is actually been having problems with constipation. No chest pain or current shortness of breath, denies taking any NSAIDs for his back pain. Hospital Course: #Acute kidney failure-concern for multiple myeloma -Patient with a creatinine around 1.5 at baseline with most recent value 9 months ago being 1.5 to - Presenting now with a creatinine of 8.56 - Bicarb 19.5 - Patient not hyperkalemic - Vitally stable and not volume overloaded - Patient alert, no seizure activity, confusion, altered mental status - Presently does not seem to have any indications for emergent dialysis - Suspect that patient's nausea and vomiting with very poor p.o. intake on top of continuing to take his valsartan/hydrochlorothiazide caused or largely contributed to his worsening renal failure - Patient reportedly had been urinating at home and even urinated this morning however in the ED unable to urinate and has 280 on bladder scan - Unclear if there has been an obstructive component to this as well given patient's report of urinating okay prior to coming in - Will have Mon[place]roso catheter placed given patient reporting he is unable to urinate in the ED and bladder scan shows 280 - IV fluids - Will check UA given reports of suprapubic discomfort - Check urine studies - Kidney and bladder ultrasound -Check CK - Discussed with nephrology, nephrology consult placed -12/04: Despite sodium and calcium improving, kidney function has remained about the same, BUN this a.m. 112 with a creatinine of 8.49. UA with protein and occult blood, rare bacteria and does not seem UA is indicative of infection. FEUrea is 61.8 suggesting intrinsic renal disease. SPEP and UPEP pending, nephrology consulted, kidney and bladder ultrasound ordered, Monterroso catheter in place, patient has had 1300 output since admission yesterday evening. [place] lambda light chains ordered in addition to protein electrophoresis. Discussed with nephrology. -12/05: BUN 107 with a creatinine slightly worse of 8.79, still making urine, nephrology following, lab workup pending, kidney and bladder ultrasound is ordered and pending -12/06: Kidney and bladder ultrasound normal, kidney function virtually unchangedsince presentation, patient for tunneled dialysis catheter today per nephrology recommendation to begin dialysis, discussed with nephrology, patient also for kidney biopsy tomorrow -12/07: Patient had dialysis today, 2 L taken off and tolerated that well, patient for biopsy today -12/08: Patient's free kappa/lambda ratio 0.02 and SPEP results concerning for possible multiple myeloma. Discussed with Dr. King with hematology/oncology. Case reviewed, given this is suspicious for multiple myeloma it was recommended to get a skeletal survey and a bone marrow biopsy. Discussed with patient family at bedside and patient agreeable. These orders have been placed. Patient will need to follow-up closely with Dr. King nextweek in the office if he is discharged over the weekend though currently unclearwhen patient will be ready for discharge. Renal biopsy pending, did have dialysis again today with no fluid taken off. -12/09: Patient skeletal survey with subtle round lucencies within bilateral humeri and right radius and questionable moth-eaten appearance of inferior aspects of bony pelvis which could be due to to summation of shadows and overlying structures however infiltrative process cannot be excluded. Preliminary pathology also concerning for lytes chains/myeloma. Discussed againwith hematology, will move forward with biopsy and patient is scheduled to tentatively follow with him in the office next if results are availableto work on/discussed treatment. Did have dialysis today with 4 L off, will likely have dialysis again tomorrow. Discussed with nephrology and hematology 12/10/2024: He is scheduled for outpatient dialysis on Thursday, , Thursday schedule. He is anemic at 7.2 no obvious signs of bleeding. There is concern for multiple myeloma so we will recheck tomorrow morning transfuse as indicated 12/11/2024: Anemia stabilized likely related to the concern for multiple myeloma. Will recheck tomorrow morning and if he does not need any further dialysis per nephrology tomorrow they can plan for discharge home and outpatientdialysis as previously scheduled 12/12/2024: Hemoglobin this afternoon was 7.2 on recheck from 6.9 given his borderline status will transfuse 1 unit prior to discharge. I discussed with him and his family the plan for discharge and they expressed understanding of the risks and benefits of going home and he would like to go home today. 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 Starting patient on metoprolol, first dialysis today as well and holding albuterol treatments, recommendation may have led to or exacerbated underlying A-fib if patient continues to have episodes despite dialysis, metoprolol, and holding albuterol will need to consider risks and benefits of anticoagulation ondischarge -12/08: Patient intermittently with A-fib with RVR, adjusting metoprolol dosing, did convert temporarily with IV metoprolol earlier today, will continue to adjust medications. Did have TSH on presentation that was 0.591 -12/09: With 4 L of fluid removed heart rate improved and patient appears to be back in sinus rhythm, awaiting echocardiogram 12/10/2024: Heart rate back to normal sinus rhythm 12/12/2024: Echocardiogram with 55% EF and stage I diastolic dysfunction RVSP of39 mmHg. Atrial structures are normal therefore we will hold off on any anticoagulation at this time pending continued evaluation for his hematologic dyscrasia # Acute hypoxic respiratory failure secondary to fluid overload from renal failure -12/08: Patient's shortness of breath seems to worsen with elevated heart rates and improve when he is rate controlled more in sinus rhythm, adjusting metoprolol to achieve better control, TSH within normal limits. Did have chest x-ray on 12/06 that showed possible moderate interstitial pulmonary edema howeverpatient was subsequently dialyzed with 2 L off but did not seem to significantlyimprove respiratory status, had repeat chest x-ray with increased O2 needs whichdid also show edema and was given IV Lasix but with suboptimal output -12/09: Patient overnight required Airvo and was in respiratory distress, chest x-ray showed increased edema and he was given IV Lasix, did have some improvement but suboptimal output, today had 4 L out with dialysis and is now down to 4 L nasal cannula with good saturations and significantly improved breathing. Awaiting echocardiogram 12/10/2024: Echocardiogram is unremarkable with an EF of 55% stage I diastolic dysfunction with RVSP of 39 mmHg 12/11/2024: Will plan for an ambulatory pulse ox tomorrow prior to discharge 12/12/2024: He did need 2 L with ambulation but was room air at rest this morning and then on repeat he did not require any oxygen with ambulation or at rest # Hypercalcemia -Unclear if this is secondary to significant dehydration or if this could be a primary process associated with his renal failure and dehydration - Will hydrate with normal saline - Will check PTH and vitamin D - will check Phos - If no or minimal improvement can consider calcitonin and/or bisphosphonates - Will also check serum and urine protein electrophoresis given high calcium with kidney failure, high total protein and globulin, anemia and recent L1 fracture/bone pain in addition to generalized weakness - Chest x-ray also ordered to evaluate for any possible lesions -12/04: Improving with hydration, patient's Phos is high which is likely secondary to his renal failure, notably vitamin D is within normal limits at 43 and PTH is only 15. Suspect that patient's hypercalcemia is largely due to dehydration in addition to his hydrochlorothiazide in addition to multiple calcium based medications being taken daily for reflux but workup still pending. Protein electrophoresis pending and kappa lambda light chains ordered -12/05: Still slightly elevated at 11.5 but has consistently continued to improve, continue IV fluids and avoiding calcium based agents, continue to hold hydrochlorothiazide -12/06: Calcium within normal limits today -12/07: Calcium remains the same today, continue current management -12/08: Discussed with oncology, if potassium is elevated again would recommend 60 pamidronate -12/09: No present indication for bisphosphonate #Hyponatremia -Possibly secondary to dehydration but cannot say definitively, patient additionally on hydrochlorothiazide which will be held - Will order serum osmole's - Check urine studies - TSH - Lipid profile - Monitor I's and O's - Trend BMPs -12/04: Patient actually has elevated serum osmolality with an osmolality of 324 but no hyperglycemia or hyperlipidemia therefore suspect this is either due to his kidney failure with uremia or could possibly pseudohyponatremia due to a paraproteinemia +/- HCTZ, serum and urine protein electrophoresis pending as well as kappa lambda light chains. Notably sodium has slowly up trended to 129 with fluids and cessation of HCTZ, will continue present management while further workup underway -12/05: Sodium of 128, seems to have stabilized, do suspect that this is at leastin part due to renal disease with uremia, continue to monitor, continue to hold hydrochlorothiazide -12/06: Hyponatremia continues to remain stable with a sodium of 129, will not resume hydrochlorothiazide on discharge -12/07: Sodium is further improved to 131 today, patient had 2 L removed with dialysis, repeat a.m. -12/08: Sodium 132 today, continues to improve -12/09: Sodium has actually normalized today with dialysis 12/10/2024: Sodium is 131, will continue to monitor but at the moment of no significant concern # Macrocytic anemia -12/04: Patient with hemoglobin 10.7 on presentation with no previous baseline seen in our system, this a.m. hemoglobin 7.9 which is significant drop but no evidence of ongoing bleeding, suspect the patient was significantly volume depleted/dehydrated and was hemoconcentrated especially given drop in all 3 celllines. MCV is 98.6, will be ordering B12, iron panel, folate -12/05: Hemoglobin slightly lower today, in part likely due to dilution and blooddraws, 7.2 this a.m.. Folate is technically within normal limits but on the lowside so we will start folic acid but B12 within normal limits, iron and iron saturation within normal limits with elevated ferritin. 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 -12/06: Hemoglobin actually up to 7.7 today, continue to monitor -12/07: No evidence of blood loss, hemoglobin remaining stable, hemoglobin 7.9 today -12/08: Hemoglobin 7.2, has been fluctuating in the sevens, does not appear to have any acute blood loss -12/09: Patient had a.m. hemoglobin of 6.9 however before blood could be given he had dialysis and repeat hemoglobin showed a hemoglobin of 8.5 so will not proceed with transfusion 12/12/2024: Will plan for 1 unit PRBCs prior to discharge today, he will likely need iron infusions as well as erythropoietin with dialysis #GERD -Continue PPI -12/04: Reportedly patient's been having significant reflux symptoms for the pastyear, takes omeprazole at home and has been taking nightly calcium based products for reflux, patient's reflux may be contributing to his nausea, will place on IV PPI twice daily, avoiding calcium based agents -12/05: Patient now on IV PPI every 12, avoiding calcium based agents, symptoms significantly improved -12/06: Doing very well on twice daily PPI, will likely need this on discharge -12/07: Has had significant improvement, currently reporting constipation but no upper GI symptoms -12/08: Still some poor p.o. intake, discussed protein shakes/meal supplements ifpatient does not want to eat to try to maintain nutrition -12/09: Started on Remeron to try to improve appetite 12/12/2024: Will continue with Remeron on discharge for appetite #Hypertension -Will be holding valsartan/hydrochlorothiazide due to the above -12/04: Continue to hold valsartan/hydrochlorothiazide and monitor blood pressure, can consider alternative agent if necessary but will be careful to avoid hypotension -12/05: Hydralazine as needed if needed, continue to hold ARB and HCTZ -12/06: Patient on hydralazine as needed, would likely need to begin antihypertensive, will plan to do this after patient's procedure pending blood pressures -12/07: Amlodipine started, starting metoprolol as above -12/08: Metoprolol being uptitrated as above -12/09: On metoprolol and amlodipine 12/12/2024: Will continue with metoprolol and amlodipine on discharge, will holdhis hydrochlorothiazide given his renal failure and episodic hyponatremia #L1 compression fracture - Patient scheduled for kyphoplasty Thursday - Denies taking any NSAIDs or pain medications - Supportive care -12/04: Continue pain control and supportive care -12/05: Did advise to cancel kyphoplasty appointment given patient still in the hospital and to hold off on rescheduling until we have more answers and a better idea of discharge -12/06: Will need follow-up with pain management upon discharge -12/07: Due to patient having multiple procedures he has not been able to consistently work with PT, will need PT reeval when able and prior to discharge as patient does not often get out of bed and concerns that he could have some difficulty with mobility -12/08: Did work with PT today, felt generally weak and tired -12/09: Will continue to encourage up to chair and mobilization #Type 2 diabetes mellitus -Glucose checks and sliding scale insulin - Had somewhat low glucose of 59 on presentation - Will decrease long-acting insulin - Holding sitagliptin and metformin -12/04: Glucose has actually remained low, will discontinue long-acting insulin altogether -12/05: Glucose has been more stable overnight, continue to hold long-acting insulin -12/06: Glucose 123 this a.m., hemoglobin A1c 6.4, will need to decrease patient's insulin regimen significantly on discharge to avoid hypoglycemia -12/07: Glucose maintaining in the low 100s, continue current management -12/08: Glucose 96 this a.m., has had fairly poor p.o. intake, continue to encourage increased intake -12/09: A.m. glucose 94 this a.m., started on Remeron to try to improve appetite 12/12/2024: Will discharge on his Lantus but decrease the dose to 5 mg recommendtwice daily checks of his blood sugar to monitor and make adjustments in conjunction with his PCP #Hypothyroidism -Continue Synthroid Physical Exam Narrative General: Alert, Oriented x3, Cooperative, No apparent distress HEENT: Atraumatic, PERRLA, EOMI, Normocephalic Oral: Moist Mucosa Neck: Supple, No JVD Lungs: Diminished bilateral bases, Normal air movement, No rhonchi, No wheeze, No rales Cardiovascular: Regular rate, Regular Rhythm, Normal S1, Normal S2, No murmurs Abdomen: Soft, Non Tender, Non-Distended, No Hepato-splenomegaly Extremities: No edema, Capillary Refill Less than 3 Seconds Skin: No rashes, No breakdown Musculoskeletal: No Tenderness to Palpation of Joints or Extremities Neurological: No focal neurological deficits, moves all extremities Psych/Mental Status: Normal Affect, Appropriate Medical Records Data Medical Nutrition Assessment Dietitian: Malnutrition Criteria Met Start: 12/04/24 12:12 Freq: Status: Active Protocol: Document 12/04/24 12:12 SLA (Rec: 12/04/24 12:13 SLA [id number]) Nutrition Malnutrition Evidence of Yes Malnutrition Exists Malnutrition (severe Acute Illness/Injury ): Evidenced By Suboptimal Energy Intake (Severe),Weight Loss (Severe) Clinical Problem Acute Disease or Injury Related Malnutrition Etiology related to issues 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 Status Active Problem Recommendation Dietitian Will liberalize diet to Regular w/ glucerna shake tid Recommendations/ at meals - once po intake improves, can adjust to carb Changes controlled diet if indicated. Will continue to follow and monitor for changes in pt nutritional status and make additional rec as indicate. Weight / BMI Weight Weight: 173 lb 1.006 oz Body Mass Index (BMI) 23.4 ABG / Lab / Microbiology Data 12/12/24 11:50 12/12/24 04:45 Laboratory: Laboratory Results - last 24 hr 12/09/24 09:35: Crossmatch See Detail 12/11/24 17:25: POC Glucose 190 H 12/11/24 21:25: POC Glucose 174 H 12/12/24 04:45: WBC 3.6 L, RBC 1.91 L, Hgb 6.9 L, Hct 19.4 L, MCV 101.6 H, MCH 36.1 H, MCHC 35.6, RDW Std Deviation 43.8, RDW Coeff of Scotty 11.9, Plt Count 147 L, MPV 10.0, Immature Gran % (Auto) 0.300, Neut % (Auto) 45.2 L, Lymph % (Auto) 36.9, [place] % (Auto) 14.3 H, Eos % (Auto) 3.0, Baso % (Auto) 0.3, Absolute Neuts (auto) 1.6 L, Absolute Lymphs (auto) 1.34, Nucleated RBC % 0, Sodium 129 L, Potassium 3.6, Chloride 94 L, Carbon Dioxide 22.0, Anion Gap 13, BUN 66 H, Creatinine 5.84 H, Estim Creat Clear Calc 10.33 L, Est GFR (MDRD) Non-Af 9 L, BUN/Creatinine Ratio 11.3, Glucose 150 H, Calcium 10.3 12/12/24 06:37: POC Glucose 133 H 12/12/24 11:40: POC Glucose 213 H 12/12/24 11:50: Hgb 7.2 L, Hct 20.1 L, Blood Type O POSITIVE, Antibody Screen NEGATIVE, Crossmatch See Detail Microbiology: Microbiology 12/03/24 20:38 Urine, Catheterized Urine Culture - Final Culture exhibits no growth. D/C Instructions Call your doctor if you observe: Fever of 101 or Higher, Shortness of breath, Dizziness, Fainting spells, Swelling in the ankles, Chest pain and Increased palpitations (irregular heartbeat) DC O2, CPAP, BIPAP Needs Home O2 Discharge instructions: No Meaningful Use Info Meaningful Use Meaningful Use Diagnoses (Choose all that apply): None applicable Discharge Plan Admission Admit Date/Time: 12/03/24 17:03 Attending Provider: Suraj Paz Primary Care Provider: Luna Ashton Consulting Providers: Alyssia Bah; Henry Evans; Isauro Moran; Elmer Orozco; Ted Henderson; Adalid King; Srinivasa Boudreaux; Dev Dee; Bismark Lance; Rocco Barcenas; Renay Stapleton NP; Claire Mazariegos Instructions Patient Instructions: RAD RN Bone Marrow Aspiration and Biopsy, RAD RN Procedural Sedation Additional Instructions / Restrictions: Decrease your Lantus dosing to 5 units at night and make adjustments as indicated by twice daily blood sugar measurements in conjunction with your doctor. Discharge Orders/Prescriptions Prescriptions: New amlodipine 5 mg Tablet 5 mg PO DAILY 30 Days Qty: 30 0RF mirtazapine 15 mg Tablet 7.5 mg PO QHS 30 Days Qty: 15 0RF metoprolol tartrate 25 mg Tablet 25 mg PO BID 30 Days Qty: 60 0RF Continued atorvastatin 20 mg tablet 20 mg PO QDAY Qty: 90 2RF levothyroxine 100 mcg tablet 100 mcg PO DAILY Qty: 100 3RF omeprazole 20 mg capsule,delayed release(DR/EC) 20 mg PO DAILY Qty: 100 3RF magnesium 250 mg tablet 250 mg PO QHS insulin glargine [Lantus Solostar U-100 Insulin] 100 unit/mL (3 mL) insulin pen 21 unit subcut QHS ondansetron 4 mg tablet,disintegrating 4 mg PO Q8H PRN (Reason: nausea and vomiting) Qty: 14 0RF Discontinued metformin 500 mg tablet extended release 24 hr 500 mg PO BID Qty: 180 3RF Januvia 100 mg tablet 100 mg PO DAILY Qty: 100 3RF valsartan-hydrochlorothiazide 160-12.5 mg tablet 1 tab PO DAILY Qty: 90 3RF No Action (DME) True Metrix Glucose Test Strip Strip See Dose Instructions .ROUTE .MEDSUPPLY Qty: 100 1RF Rx Instructions: As directed (DME) blood-glucose meter Kit See Rx Instructions .ROUTE .MEDSUPPLY Qty: 1 0RF Rx Instructions: As directed (DME) lancets [Unilet Lancets] 30 gauge misc See Dose Instructions .ROUTE .MEDSUPPLY Qty: 100 1RF Rx Instructions: As directed (DME) pen needle, diabetic [CareFine Pen Needle] 29 gauge x 1/2 needle See Rx Instructions .Route Qty: 100 3RF Rx Instructions: As directed Referrals / Follow Up: Luna Ashton DO [Primary Care Provider, Internal Medicine] - 12/13/24 1:30 pm Adalid King MD [Med Staff - Active Staff, Oncology] - 12/14/24 Referral Note: Call the office prior to coming in to see if they have received the pathology report from the [facility], if not, then the appointment will be rescheduled. Disposition Disposition (needs filled in before D/C Order can be placed): Home Health Service Charges/Coding Visit Charges Inpatient E&M: 43366 Disch Hosp >30min 12/12/24 1515 <Electronically signed by Suraj Paz MD> Cosigner Signature (if applicable): CC: Dr. Luna Ashton DO; Dr. Suraj Paz MD~ Signed [facility] Work Phone: [phone]) 108-849410-13-2025 Discharge summary Author Suraj Paz [facility] Note Date/Time December 12, 2024 1 :36pm [facility] Medical Records Department [address] [place] [address] Instructions for Home/Discharge Instructions 12/12/24 1325 MR#: [id number] Acct: [id number] Name: LINA VARGAS Rep #:[id number] : [id number] 84 From: Suraj mcclendon MD PCP: Dr. Luna Ashton, DO Status:AD M IN Discharge Instructions DC O2, CPAP, BIPAP needs Home O2 Discharge instructions: No Dressing / Incision Discharge Activity: Return to Normal Activity Dressing / Incision Call your doctor if you observe: Fever of 101 or Higher, Shortness of breath, Dizziness, Fainting spells, Swelling in the ankles, Chest pain and Increased palpitations (irregular heartbeat) Follow Up Care Test Results: Test results from this visit will be discussed in further detail at your follow- up appointment, if applicable. Discharge Plan Admission Admit Date/Time: 12/03/24 17:03 Attending Provider: Suraj Paz Primary Care Provider: Luna Ashton Consulting Providers: Alyssia Bah; Henry Evans; Isauro Moran; Elmer Orozco; Ted Henderson; Adalid King; Srinivasa Boudreaux; Dev Dee; Bismark Lance; Rocco Barcenas; Renay Stapleton NP; Claire Mazariegos Instructions Patient Instructions: ROSANA RN Bone Marrow Aspiration and Biopsy, ROSANA RN Procedural Sedation Additional Instructions / Restrictions: Decrease your Lantus dosing to 5 units at night and make adjustments as indicated by twice daily blood sugar measurements in conjunction with your doctor. Discharge Orders/Prescriptions Prescriptions: New amlodipine 5 mg Tablet 5 mg PO DAILY 30 Days Qty: 30 0RF mirtazapine 15 mg Tablet 7.5 mg PO QHS 30 Days Qty: 15 0RF metoprolol tartrate 25 mg Tablet 25 mg PO BID 30 Days Qty: 60 0RF Continued atorvastatin 20 mg tablet 20 mg PO QDAY Qty: 90 2RF levothyroxine 100 mcg tablet 100 mcg PO DAILY Qty: 100 3RF omeprazole 20 mg capsule,delayed release(DR/EC) 20 mg PO DAILY Qty: 100 3RF magnesium 250 mg tablet 250 mg PO QHS insulin glargine [Lantus Solostar U-100 Insulin] 100 unit/mL (3 mL) insulin pen 21 unit subcut QHS ondansetron 4 mg tablet,disintegrating 4 mg PO Q8H PRN (Reason: nausea and vomiting) Qty: 14 0RF Discontinued metformin 500 mg tablet extended release 24 hr 500 mg PO BID Qty: 180 3RF Januvia 100 mg tablet 100 mg PO DAILY Qty: 100 3RF valsartan-hydrochlorothiazide 160-12.5 mg tablet 1 tab PO DAILY Qty: 90 3RF No Action (DME) True Metrix Glucose Test Strip Strip See Dose Instructions .ROUTE .MEDSUPPLY Qty: 100 1RF Rx Instructions: As directed (DME) blood-glucose meter Kit See Rx Instructions .ROUTE .MEDSUPPLY Qty: 1 0RF Rx Instructions: As directed (DME) lancets [Unilet Lancets] 30 gauge misc See Dose Instructions .ROUTE .MEDSUPPLY Qty: 100 1RF Rx Instructions: As directed (DME) pen needle, diabetic [CareFine Pen Needle] 29 gauge x 1/2 needle See Rx Instructions .Route Qty: 100 3RF Rx Instructions: As directed Referrals / Follow Up: Luna Ashton DO [Primary Care Provider, Internal Medicine] - Within 1 Week Adalid King MD [Med Staff - Active Staff, Oncology] - 12/14/24 Referral Note: Call the office prior to coming in to see if they have received the pathology report from the [facility], if not, then the appointment will be rescheduled. Disposition Disposition (needs filled in before D/C Order can be placed): Home Health Service 12/12/24 0618<Electronically signed by Suraj Paz MD>Suraj Paz MD CC: MANJU Stapleton; Dr. Isauro Moran MD; Dr. Luna Ashton DO; Dr. Alyssia Bah MD; Dr. Ted Henderson MD; Dr. Elmer Orozco MD; Dr. Adalid King MD; Dr. Henry Evans MD; Dr. Claire Mazariegos MD; Dr. Srinivasa Boudreaux MD; Dr. Bismark Lance MD; Dr. Dev Dee MD; Dr. Rocco Barcenas, DO ~ Signed [facility] Work Phone: 1(566) 304-900810-13-2025 [facility]10-13-2025 Progress note Author Sukhdeep Juarez [facility] Note Date/Time December 12, 2024 7 :08pm [facility] Medical Records Department [address] [place] [address] Progress Note - Nephrology 12/12/24 1157 MR#: [id number] Acct: [id number] Name: LINA VARGAS Rep #:[id number] : [id number] 84 From: Sukhdeep grier [employer] PCP: Dr. Luna Ashton DO Status:DI S IN Location: [place] [address] Subjective Subjective Sitting in chair. No complaints. No overnight events. Objective Data Objective Data Vital Signs: Vital Signs Temp Pulse Resp BP Pulse Ox O2 Del Method O2 Flow Rate 98.0 F 86 17 160/89 H 95 Nasal Cannula 2 12/12/24 09:25 12/12/24 10:18 12/12/24 09:25 12/12/24 09:25 12/12/24 09:25 12/12/24 09:25 12/12/24 09:25 FiO2 58 12/09/24 10:00 Oxygen Flow Rate (L/min) 2 Oxygen Delivery Method Nasal Cannula Weight: 78.5 kg Body Mass Index (BMI) 23.4 Intake & Output: Intake and Output for Last 24 Hours 12/10/24 12/11/24 12/12/24 23:59 23:59 23:59 Intake Total 1590.2 / 1590.2 250.2 / 490.2 350.2 / 350.2 Output Total 4165 / 4165 120 / 470 450 / 450 Balance -2574.8 / -2574.8 130.2 / 20.2 -99.8 / -99.8 Medical Nutrition Assessment Dietitian: Malnutrition Criteria Met Start: 12/04/24 12:12 Freq: Status: Active Protocol: Document 12/04/24 12:12 [facility] (Rec: 12/04/24 12:13 SLA 10..25.7) Nutrition Malnutrition Evidence of Yes Malnutrition Exists Malnutrition (severe Acute Illness/Injury ): Evidenced By Suboptimal Energy Intake (Severe),Weight Loss (Severe) Clinical Problem Acute Disease or Injury Related Malnutrition Etiology related to issues 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 Status Active Problem Recommendation Dietitian Will liberalize diet to Regular w/ glucerna shake tid Recommendations/ at meals - once po intake improves, can adjust to carb Changes controlled diet if indicated. Will continue to follow and monitor for changes in pt nutritional status and make additional rec as indicate. Lab / Micro Data 12/12/24 04:45 12/12/24 04:45 Labs: Laboratory Results - last 24 hr 12/11/24 17:25: POC Glucose 190 H 12/11/24 21:25: POC Glucose 174 H 12/12/24 04:45: WBC 3.6 L, RBC 1.91 L, Hgb 6.9 L, Hct 19.4 L, MCV 101.6 H, MCH 36.1 H, MCHC 35.6, RDW Std Deviation 43.8, RDW Coeff of Scotty 11.9, Plt Count 147 L, MPV 10.0, Immature Gran % (Auto) 0.300, Neut % (Auto) 45.2 L, Lymph % (Auto) 36.9, [place] % (Auto) 14.3 H, Eos % (Auto) 3.0, Baso % (Auto) 0.3, Absolute Neuts (auto) 1.6 L, Absolute Lymphs (auto) 1.34, Nucleated RBC % 0, Sodium 129 L, Potassium 3.6, Chloride 94 L, Carbon Dioxide 22.0, Anion Gap 13, BUN 66 H, Creatinine 5.84 H, Estim Creat Clear Calc 10.33 L, Est GFR (MDRD) Non-Af 9 L, BUN/Creatinine Ratio 11.3, Glucose 150 H, Calcium 10.3 12/12/24 06:37: POC Glucose 133 H Micro: Microbiology 12/03/24 20:38 Urine, Catheterized Urine Culture - Final Culture exhibits no growth. Physical Exam Narrative no obvious distress no JVD s1s2 no murmurs Clear to auscultation anteriorly. On O2 via nasal cannula abdomen soft, nontender no edema Assessment & Plan Assessment/Plan (1) Acute renal failure: PLAN: Baseline creatinine as of beginning of this year was around 1.4 or so. Admission creatinine more than 9. Monterroso indwelling without much urine output. Renal ultrasound pending Associated hypercalcemia recent spine related issues. Will check serum protein electrophoresis, kappa, lambda light chain assay. I will also send other serologies. He also takes Tums 1 a day due to acid reflux. I am not sure if that is the cause of hypercalcemia as well. So far PTH is suppressed. Continue IV fluids for now. If no significant recovery, may need a kidney biopsy. dw hospitalist 12/05/2024; SCr 8.56 on admission--> SCr 8.79 mg/dL today. Potassium and bicarb acceptable. Calcium 14.6 on admission, 11.5 today (continue holding valsartan/hydrochlorothiazide). Patient on IV fluids. Renal serologies pending. Urine output around 1.5 L yesterday (patient has Monterroso). Blood pressures acceptable. Though urine output has picked up renal function is slowly worsening and reviewed that with patient and his today. Reviewed with them that patient is quite possibly heading towards needing renal replacement therapy. Risks and benefits of dialysis explained. Dialysis in inpatient setting and outpatient setting also explained. Questions were answered. Patient is in agreement with moving forward with renal placement therapy. There is no urgent need for renal placement therapy today as potassiumand bicarb acceptable and volume status appears compensated. He did state he would like to see how his labs look tomorrow but in agreement with starting hemodialysis if necessary. Recommend surgery consult for hemodialysis catheter placement. Discussed nephrology plan with patient and . Discussed nephrology plan with Dr. Mazariegos. Labs ordered for morning. Assessment and planreviewed with Dr. Bah 12/06/2024; serum creatinine about the same today, 8.5 mg/dL, bicarb 20, potassium 4.2. Urine output yesterday 1.2 L. Calcium 10.9 today. Overnight patient developed difficulty breathing with wheezing, now on O2 nasal cannula. Can stop IV fluids. He is to have tunneled hemodialysis catheter placed today then will plan for dialysis afterwards and attempt small amount of fluid removalas patient/blood pressure tolerates. Renal serologies are pending. Discussed with patient today about kidney biopsy, risk and benefit of biopsy. Patient is in agreement with having kidney biopsy. Will place orders. Patient is not on any blood thinners. Continue to monitor for renal recovery. Discussed with case management, arrangements underway for outpatient hemodialysis at [facility] diagnosis DEANGELO. Assessment and plan reviewed with Dr. Bah 2024. Serologies are still pending. Significant protein gap. Hypercalcemia on admission, now better. Recent low back issues. Myeloma is possible. Will plan for kidney biopsy today. Dialysis today, dialysis tomorrow. Discussed with family bedside. 12/08/24. HD today. see orders. SPEP came back positive. K/L ratio skewed. possible myeloma. will call pathology for diagnosis later today. addendum. dw pathology. surprise, no myeloma. dense ATN. 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 needs hematology evaluation. multiple discussions with hospitalist, pathology 12/09/2024. Isolated UF today mostly for fluid removal. Serum protein electrophoresis with IgA and heavy chain monoclonality. Discussed with pathology at [facility] again today. 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 Bone scan done overnight showed osteolytic lesions, again consistent with multiple myeloma. Can send a serum viscosity. Discussed with hospitalist. UF today, likely dialysis tomorrow. Oncology consulted. Bone marrow biopsy ordered today. Discussed with family at bedside. All questions answered. 12/11/2024. Patient was dialyzed yesterday on 12/10/2024. He tolerated dialysis well. Volume and solute are controlled, so there is no need for dialysis today. Will reassess patient again tomorrow. Recheck renal function, volume status, acid- base and electrolytes again tomorrow. 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 SCr 5.84. potassium and bicarb normal. Hgb this am 6.9, repeat hgb ordered. UOP today 450ml. Outpatient HD schedule is TTS at [facility], reviewed this with patient. Discussed nephrology plan with Dr. Paz, possible discharge today therefore patient will go for outpatient HD tomorrow at [facility]. Patient following up with oncology, [facility] has appointment this week. Assessment and plan reviewed with Dr. Bah. (2) Hypercalcemia: 12/12/24 1201 <Electronically signed by Sukhdeep NUNES> Cosigner Signature (if applicable): 12/17/24 1708 <Electronically signed by Alyssia Bah MD> CC: ~ Signed [facility] Work Phone: [phone] 729-556810-13-2025 Progress note Author Suraj Paz [facility] Note Date/Time December 12, 2024 1 1:27am [facility] Medical Records Department [address] [place] [address] Progress Note - Hospitalist 12/12/24 1126 MR#: [id number] Acct: [id number] Name: LINA VARGAS Rep #:[id number] : [id number] 84 From: Suraj mcclendon MD PCP: Dr. Luna Ashton, DO Status:AD IN Location: [place] [address] Subjective Subjective Doing well, no issues overnight. Hemoglobin is low at 6.9 we will recheck to see if it is genuine Objective Data Objective Data Vital Signs: Vital Signs Temp Pulse Resp BP Pulse Ox O2 Del Method O2 Flow Rate 98.0 F 86 17 160/89 H 95 Nasal Cannula 2 12/12/24 09:25 12/12/24 10:18 12/12/24 09:25 12/12/24 09:25 12/12/24 09:25 12/12/24 09:25 12/12/24 09:25 FiO2 58 12/09/24 10:00 Oxygen Flow Rate (L/min) 2 Oxygen Delivery Method Nasal Cannula Weight: 173 lb 1.006 oz Body Mass Index (BMI) 23.4 Intake & Output: Intake and Output for Last 24 Hours 12/11/24 12/12/24 12/13/24 03:59 03:59 03:59 Intake Total 1390.2 / 1390.2 490.2 / 490.2 110.2 / 110.2 Output Total 4065 / 4065 470 / 470 100 / 100 Balance -2674.8 / -2674.8 20.2 / 20.2 10.2 / 10.2 Medical Nutrition Assessment Dietitian: Malnutrition Criteria Met Start: 12/04/24 12:12 Freq: Status: Active Protocol: Document 12/04/24 12:12 SLA (Rec: 12/04/24 12:13 SLA ..25.7) Nutrition Malnutrition Evidence of Yes Malnutrition Exists Malnutrition (severe Acute Illness/Injury ): Evidenced By Suboptimal Energy Intake (Severe),Weight Loss (Severe) Clinical Problem Acute Disease or Injury Related Malnutrition Etiology related to issues 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 Status Active Problem Recommendation Dietitian Will liberalize diet to Regular w/ glucerna shake tid Recommendations/ at meals - once po intake improves, can adjust to carb Changes controlled diet if indicated. Will continue to follow and monitor for changes in pt nutritional status and make additional rec as indicate. Lab / Micro Data 12/12/24 04:45 12/12/24 04:45 Labs: Laboratory Results - last 24 hr 12/11/24 11:15: POC Glucose 173 H 12/11/24 17:25: POC Glucose 190 H 12/11/24 21:25: POC Glucose 174 H 12/12/24 04:45: WBC 3.6 L, RBC 1.91 L, Hgb 6.9 L, Hct 19.4 L, MCV 101.6 H, MCH 36.1 H, MCHC 35.6, RDW Std Deviation 43.8, RDW Coeff of Scotty 11.9, Plt Count 147 L, MPV 10.0, Immature Gran % (Auto) 0.300, Neut % (Auto) 45.2 L, Lymph % (Auto) 36.9, [place] % (Auto) 14.3 H, Eos % (Auto) 3.0, Baso % (Auto) 0.3, Absolute Neuts (auto) 1.6 L, Absolute Lymphs (auto) 1.34, Nucleated RBC % 0, Sodium 129 L, Potassium 3.6, Chloride 94 L, Carbon Dioxide 22.0, Anion Gap 13, BUN 66 H, Creatinine 5.84 H, Estim Creat Clear Calc 10.33 L, Est GFR (MDRD) Non-Af 9 L, BUN/Creatinine Ratio 11.3, Glucose 150 H, Calcium 10.3 12/12/24 06:37: POC Glucose 133 H Micro: Microbiology 12/03/24 20:38 Urine, Catheterized Urine Culture - Final Culture exhibits no growth. Physical Exam Narrative General: Alert, Oriented x3, Cooperative, No apparent distress HEENT: Atraumatic, PERRLA, EOMI, Normocephalic Oral: Moist Mucosa Neck: Supple, No JVD Lungs: Diminished bilateral bases, Normal air movement, No rhonchi, No wheeze, No rales Cardiovascular: Regular rate, Regular Rhythm, Normal S1, Normal S2, No murmurs Abdomen: Soft, Non Tender, Non-Distended, No Hepato-splenomegaly Extremities: No edema, Capillary Refill Less than 3 Seconds Skin: No rashes, No breakdown Musculoskeletal: No Tenderness to Palpation of Joints or Extremities Neurological: No focal neurological deficits, Motor Exam 5/5 strength throughout, Sensory exam intact to light touch and pain Psych/Mental Status: Normal Affect, Appropriate Assessment & Plan Assessment/Plan (1) Hypercalcemia: (2) Acute renal failure: PLAN: Plan #Acute kidney failure-concern for multiple myeloma -Patient with a creatinine around 1.5 at baseline with most recent value 9 months ago being 1.5 to - Presenting now with a creatinine of 8.56 - Bicarb 19.5 - Patient not hyperkalemic - Vitally stable and not volume overloaded - Patient alert, no seizure activity, confusion, altered mental status - Presently does not seem to have any indications for emergent dialysis - Suspect that patient's nausea and vomiting with very poor p.o. intake on top of continuing to take his valsartan/hydrochlorothiazide caused or largely contributed to his worsening renal failure - Patient reportedly had been urinating at home and even urinated this morning however in the ED unable to urinate and has 280 on bladder scan - Unclear if there has been an obstructive component to this as well given patient's report of urinating okay prior to coming in - Will have Monterroso catheter placed given patient reporting he is unable to urinate in the ED and bladder scan shows 280 - IV fluids - Will check UA given reports of suprapubic discomfort - Check urine studies - Kidney and bladder ultrasound -Check CK - Discussed with nephrology, nephrology consult placed -12/04: Despite sodium and calcium improving, kidney function has remained about the same, BUN this a.m. 112 with a creatinine of 8.49. UA with protein and occult blood, rare bacteria and does not seem UA is indicative of infection. FEUrea is 61.8 suggesting intrinsic renal disease. SPEP and UPEP pending, nephrology consulted, kidney and bladder ultrasound ordered, Monterroso catheter in place, patient has had 1300 output since admission yesterday evening. [place] lambda light chains ordered in addition to protein electrophoresis. Discussed with nephrology. -12/05: BUN 107 with a creatinine slightly worse of 8.79, still making urine, nephrology following, lab workup pending, kidney and bladder ultrasound is ordered and pending -12/06: Kidney and bladder ultrasound normal, kidney function virtually unchangedsince presentation, patient for tunneled dialysis catheter today per nephrology recommendation to begin dialysis, discussed with nephrology, patient also for kidney biopsy tomorrow -12/07: Patient had dialysis today, 2 L taken off and tolerated that well, patient for biopsy today -12/08: Patient's free kappa/lambda ratio 0.02 and SPEP results concerning for possible multiple myeloma. Discussed with Dr. King with hematology/oncology. Case reviewed, given this is suspicious for multiple myeloma it was recommended to get a skeletal survey and a bone marrow biopsy. Discussed with patient family at bedside and patient agreeable. These orders have been placed. Patient will need to follow-up closely with Dr. King nextweek in the office if he is discharged over the weekend though currently unclearwhen patient will be ready for discharge. Renal biopsy pending, did have dialysis again today with no fluid taken off. -12/09: Patient skeletal survey with subtle round lucencies within bilateral humeri and right radius and questionable moth-eaten appearance of inferior aspects of bony pelvis which could be due to to summation of shadows and overlying structures however infiltrative process cannot be excluded. Preliminary pathology also concerning for lytes chains/myeloma. Discussed againwith hematology, will move forward with biopsy and patient is scheduled to tentatively follow with him in the office next if results are availableto work on/discussed treatment. Did have dialysis today with 4 L off, will likely have dialysis again tomorrow. Discussed with nephrology and hematology 12/10/2024: He is scheduled for outpatient dialysis on Thursday, , Thursday schedule. He is anemic at 7.2 no obvious signs of bleeding. There is concern for multiple myeloma so we will recheck tomorrow morning transfuse as indicated 12/11/2024: Anemia stabilized likely related to the concern for multiple myeloma. Will recheck tomorrow morning and if he does not need any further dialysis per nephrology tomorrow they can plan for discharge home and outpatientdialysis as previously scheduled 12/12/2024: Will recheck hemoglobin this afternoon, if he still below 7 will transfuse as he will be getting dialysis again today # Irregular heart beat-A-fib with RVR -12/07: Patient notes he had an ablation 20 years ago for A-fib and has not had aproblem since, on telemetry seems that he was going in and out of a fast rate, looks like it is likely fib but has been unable to be obtained on twelve-lead. Starting patient on metoprolol, first dialysis today as well and holding albuterol treatments, recommendation may have led to or exacerbated underlying A-fib if patient continues to have episodes despite dialysis, metoprolol, and holding albuterol will need to consider risks and benefits of anticoagulation ondischarge -12/08: Patient intermittently with A-fib with RVR, adjusting metoprolol dosing, did convert temporarily with IV metoprolol earlier today, will continue to adjust medications. Did have TSH on presentation that was 0.591 -12/09: With 4 L of fluid removed heart rate improved and patient appears to be back in sinus rhythm, awaiting echocardiogram 12/10/2024: Heart rate back to normal sinus rhythm # Acute hypoxic respiratory failure secondary to fluid overload from renal failure -12/08: Patient's shortness of breath seems to worsen with elevated heart rates and improve when he is rate controlled more in sinus rhythm, adjusting metoprolol to achieve better control, TSH within normal limits. Did have chest x-ray on 12/06 that showed possible moderate interstitial pulmonary edema howeverpatient was subsequently dialyzed with 2 L off but did not seem to significantlyimprove respiratory status, had repeat chest x-ray with increased O2 needs whichdid also show edema and was given IV Lasix but with suboptimal output -12/09: Patient overnight required Airvo and was in respiratory distress, chest x-ray showed increased edema and he was given IV Lasix, did have some improvement but suboptimal output, today had 4 L out with dialysis and is now down to 4 L nasal cannula with good saturations and significantly improved breathing. Awaiting echocardiogram 12/10/2024: Echocardiogram is unremarkable with an EF of 55% stage I diastolic dysfunction with RVSP of 39 mmHg 12/11/2024: Will plan for an ambulatory pulse ox tomorrow prior to discharge 12/12/2024: He did need 2 L with ambulation but was room air at rest # Hypercalcemia -Unclear if this is secondary to significant dehydration or if this could be a primary process associated with his renal failure and dehydration - Will hydrate with normal saline - Will check PTH and vitamin D - will check Phos - If no or minimal improvement can consider calcitonin and/or bisphosphonates - Will also check serum and urine protein electrophoresis given high calcium with kidney failure, high total protein and globulin, anemia and recent L1 fracture/bone pain in addition to generalized weakness - Chest x-ray also ordered to evaluate for any possible lesions -12/04: Improving with hydration, patient's Phos is high which is likely secondary to his renal failure, notably vitamin D is within normal limits at 43 and PTH is only 15. Suspect that patient's hypercalcemia is largely due to dehydration in addition to his hydrochlorothiazide in addition to multiple calcium based medications being taken daily for reflux but workup still pending. Protein electrophoresis pending and kappa lambda light chains ordered -12/05: Still slightly elevated at 11.5 but has consistently continued to improve, continue IV fluids and avoiding calcium based agents, continue to hold hydrochlorothiazide -12/06: Calcium within normal limits today -12/07: Calcium remains the same today, continue current management -12/08: Discussed with oncology, if potassium is elevated again would recommend 60 pamidronate -12/09: No present indication for bisphosphonate #Hyponatremia -Possibly secondary to dehydration but cannot say definitively, patient additionally on hydrochlorothiazide which will be held - Will order serum osmole's - Check urine studies - TSH - Lipid profile - Monitor I's and O's - Trend BMPs -12/04: Patient actually has elevated serum osmolality with an osmolality of 324 but no hyperglycemia or hyperlipidemia therefore suspect this is either due to his kidney failure with uremia or could possibly pseudohyponatremia due to a paraproteinemia +/- HCTZ, serum and urine protein electrophoresis pending as well as kappa lambda light chains. Notably sodium has slowly up trended to 129 with fluids and cessation of HCTZ, will continue present management while further workup underway -12/05: Sodium of 128, seems to have stabilized, do suspect that this is at leastin part due to renal disease with uremia, continue to monitor, continue to hold hydrochlorothiazide -12/06: Hyponatremia continues to remain stable with a sodium of 129, will not resume hydrochlorothiazide on discharge -12/07: Sodium is further improved to 131 today, patient had 2 L removed with dialysis, repeat a.m. -12/08: Sodium 132 today, continues to improve -12/09: Sodium has actually normalized today with dialysis 12/10/2024: Sodium is 131, will continue to monitor but at the moment of no significant concern # Macrocytic anemia -12/04: Patient with hemoglobin 10.7 on presentation with no previous baseline seen in our system, this a.m. hemoglobin 7.9 which is significant drop but no evidence of ongoing bleeding, suspect the patient was significantly volume depleted/dehydrated and was hemoconcentrated especially given drop in all 3 celllines. MCV is 98.6, will be ordering B12, iron panel, folate -12/05: Hemoglobin slightly lower today, in part likely due to dilution and blooddraws, 7.2 this a.m.. Folate is technically within normal limits but on the lowside so we will start folic acid but B12 within normal limits, iron and iron saturation within normal limits with elevated ferritin. 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 -12/06: Hemoglobin actually up to 7.7 today, continue to monitor -12/07: No evidence of blood loss, hemoglobin remaining stable, hemoglobin 7.9 today -12/08: Hemoglobin 7.2, has been fluctuating in the sevens, does not appear to have any acute blood loss -12/09: Patient had a.m. hemoglobin of 6.9 however before blood could be given he had dialysis and repeat hemoglobin showed a hemoglobin of 8.5 so will not proceed with transfusion #GERD -Continue PPI -12/04: Reportedly patient's been having significant reflux symptoms for the pastyear, takes omeprazole at home and has been taking nightly calcium based products for reflux, patient's reflux may be contributing to his nausea, will place on IV PPI twice daily, avoiding calcium based agents -12/05: Patient now on IV PPI every 12, avoiding calcium based agents, symptoms significantly improved -12/06: Doing very well on twice daily PPI, will likely need this on discharge -12/07: Has had significant improvement, currently reporting constipation but no upper GI symptoms -12/08: Still some poor p.o. intake, discussed protein shakes/meal supplements ifpatient does not want to eat to try to maintain nutrition -12/09: Started on Remeron to try to improve appetite #Hypertension -Will be holding valsartan/hydrochlorothiazide due to the above -12/04: Continue to hold valsartan/hydrochlorothiazide and monitor blood pressure, can consider alternative agent if necessary but will be careful to avoid hypotension -12/05: Hydralazine as needed if needed, continue to hold ARB and HCTZ -12/06: Patient on hydralazine as needed, would likely need to begin antihypertensive, will plan to do this after patient's procedure pending blood pressures -12/07: Amlodipine started, starting metoprolol as above -12/08: Metoprolol being uptitrated as above -12/09: On metoprolol and amlodipine #L1 compression fracture - Patient scheduled for kyphoplasty Thursday - Denies taking any NSAIDs or pain medications - Supportive care -12/04: Continue pain control and supportive care -12/05: Did advise to cancel kyphoplasty appointment given patient still in the hospital and to hold off on rescheduling until we have more answers and a better idea of discharge -12/06: Will need follow-up with pain management upon discharge -12/07: Due to patient having multiple procedures he has not been able to consistently work with PT, will need PT reeval when able and prior to discharge as patient does not often get out of bed and concerns that he could have some difficulty with mobility -12/08: Did work with PT today, felt generally weak and tired -12/09: Will continue to encourage up to chair and mobilization #Type 2 diabetes mellitus -Glucose checks and sliding scale insulin - Had somewhat low glucose of 59 on presentation - Will decrease long-acting insulin - Holding sitagliptin and metformin -12/04: Glucose has actually remained low, will discontinue long-acting insulin altogether -12/05: Glucose has been more stable overnight, continue to hold long-acting insulin -12/06: Glucose 123 this a.m., hemoglobin A1c 6.4, will need to decrease patient's insulin regimen significantly on discharge to avoid hypoglycemia -12/07: Glucose maintaining in the low 100s, continue current management -12/08: Glucose 96 this a.m., has had fairly poor p.o. intake, continue to encourage increased intake -12/09: A.m. glucose 94 this a.m., started on Remeron to try to improve appetite #Hypothyroidism -Continue Synthroid DVT: SCDs Charges/Coding Visit Charges Inpatient E&M: 08243 Subs Hosp L2 12/12/24 1127 <Electronically signed by Suraj Paz MD> Cosigner Signature (if applicable): CC: ~ Signed [facility] Work Phone: [phone]) 663-570110-12-2025 Progress note Author Suraj Paz [facility] Note Date/Time December 11, 2024 1 0:12am [facility] Medical Records Department [address] [place] [address] Progress Note - Hospitalist 12/11/24 1011 MR#: [id number] Acct: [id number] Name: LINA VARGAS Rep #:[id number] : 1940 84 From: Suraj mcclendon MD PCP: Dr. Luna Ashton, DO Status:AD M IN Location: [place] [address] Subjective Subjective Doing well, no issues overnight. He did work with physical therapy who felt like to go home with help. Will reevaluate 1 more time tomorrow to see if he needs extra dialysis prior to Thursday Objective Data Objective Data Vital Signs: Vital Signs Temp Pulse Resp BP Pulse Ox O2 Del Method O2 Flow Rate 97.7 F L 83 20 H 123/81 H 99 Nasal Cannula 3 12/11/24 03:30 12/11/24 03:30 12/11/24 03:30 12/11/24 03:30 12/11/24 07:45 12/11/24 07:44 12/11/24 08:28 FiO2 58 12/09/24 10:00 Oxygen Flow Rate (L/min) 3 Oxygen Delivery Method Nasal Cannula Weight: 167 lb 9.6 oz Body Mass Index (BMI) 22.6 Intake & Output: Intake and Output for Last 24 Hours 10/01/2412/11/24 12/12/24 03:59 03:59 03:59 Intake Total 1030.2 / 1030.2 1390.2 / 1390.2 Output Total 4600 / 4600 4065 / 4065 120 / 120 Balance -3569.8 / -3569.8 -2674.8 / -2674.8 -120 / -120 Medical Nutrition Assessment Dietitian: Malnutrition Criteria Met Start: 12/04/24 12:12 Freq: Status: Active Protocol: Document 12/04/24 12:12 SLA (Rec: 12/04/24 12:13 SLA [email or web address]) Nutrition Malnutrition Evidence of Yes Malnutrition Exists Malnutrition (severe Acute Illness/Injury ): Evidenced By Suboptimal Energy Intake (Severe),Weight Loss (Severe) Clinical Problem Acute Disease or Injury Related Malnutrition Etiology related to issues 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 Status Active Problem Recommendation Dietitian Will liberalize diet to Regular w/ glucerna shake tid Recommendations/ at meals - once po intake improves, can adjust to carb Changes controlled diet if indicated. Will continue to follow and monitor for changes in pt nutritional status and make additional rec as indicate. Lab / Micro Data 12/11/24 03:50 12/11/24 03:50 Labs: Laboratory Results - last 24 hr 12/10/24 10:44: POC Glucose 113 H 12/10/24 16:53: POC Glucose 205 H 12/10/24 21:39: POC Glucose 156 H 12/11/24 03:50: WBC 2.9 L, RBC 2.03 L, Hgb 7.3 L, Hct 20.6 L, MCV 101.5 H, MCH 36.0 H, MCHC 35.4, RDW Std Deviation 43.9, RDW Coeff of Scotty 12.0, Plt Count 139 L, MPV 9.8, Immature Gran % (Auto) 0.000, Neut % (Auto) 50.4, Lymph % (Auto) 30.3, [place] % (Auto) 19.0 H, Eos % (Auto) 0.0, Baso % (Auto) 0.3, Absolute Neuts (auto) 1.5 L, Absolute Lymphs (auto) 0.88, Nucleated RBC % 0, Sodium 133, Potassium 3.4, Chloride 98, Carbon Dioxide 22.0, Anion Gap 14, BUN 47 H, Creatinine 4.77 H, Estim Creat Clear Calc 12.65 L, Est GFR (MDRD) Non-Af 11 L, BUN/Creatinine Ratio 9.8 L, Glucose 116 H, Calcium 10.1 12/11/24 06:21: POC Glucose 114 H Micro: Microbiology 12/03/24 20:38 Urine, Catheterized Urine Culture - Final Culture exhibits no growth. Physical Exam Narrative General: Alert, Oriented x3, Cooperative, No apparent distress HEENT: Atraumatic, PERRLA, EOMI, Normocephalic Oral: Moist Mucosa Neck: Supple, No JVD Lungs: Diminished, Normal air movement, No rhonchi, No wheeze, No rales Cardiovascular: Regular rate, Regular Rhythm, Normal S1, Normal S2, No murmurs Abdomen: Soft, Non Tender, Non-Distended, No Hepato-splenomegaly Extremities: No edema, Capillary Refill Less than 3 Seconds Skin: No rashes, No breakdown Musculoskeletal: No Tenderness to Palpation of Joints or Extremities Neurological: No focal neurological deficits, Motor Exam 5/5 strength throughout, Sensory exam intact to light touch and pain Psych/Mental Status: Normal Affect, Appropriate Assessment & Plan Assessment/Plan (1) Hypercalcemia: (2) Acute renal failure: PLAN: Plan #Acute kidney failure-concern for multiple myeloma -Patient with a creatinine around 1.5 at baseline with most recent value 9 months ago being 1.5 to - Presenting now with a creatinine of 8.56 - Bicarb 19.5 - Patient not hyperkalemic - Vitally stable and not volume overloaded - Patient alert, no seizure activity, confusion, altered mental status - Presently does not seem to have any indications for emergent dialysis - Suspect that patient's nausea and vomiting with very poor p.o. intake on top of continuing to take his valsartan/hydrochlorothiazide caused or largely contributed to his worsening renal failure - Patient reportedly had been urinating at home and even urinated this morning however in the ED unable to urinate and has 280 on bladder scan - Unclear if there has been an obstructive component to this as well given patient's report of urinating okay prior to coming in - Will have Monterroso catheter placed given patient reporting he is unable to urinate in the ED and bladder scan shows 280 - IV fluids - Will check UA given reports of suprapubic discomfort - Check urine studies - Kidney and bladder ultrasound -Check CK - Discussed with nephrology, nephrology consult placed -12/04: Despite sodium and calcium improving, kidney function has remained about the same, BUN this a.m. 112 with a creatinine of 8.49. UA with protein and occult blood, rare bacteria and does not seem UA is indicative of infection. FEUrea is 61.8 suggesting intrinsic renal disease. SPEP and UPEP pending, nephrology consulted, kidney and bladder ultrasound ordered, Monterroso catheter in place, patient has had 1300 output since admission yesterday evening. [place] lambda light chains ordered in addition to protein electrophoresis. Discussed with nephrology. -12/05: BUN 107 with a creatinine slightly worse of 8.79, still making urine, nephrology following, lab workup pending, kidney and bladder ultrasound is ordered and pending -12/06: Kidney and bladder ultrasound normal, kidney function virtually unchangedsince presentation, patient for tunneled dialysis catheter today per nephrology recommendation to begin dialysis, discussed with nephrology, patient also for kidney biopsy tomorrow -12/07: Patient had dialysis today, 2 L taken off and tolerated that well, patient for biopsy today -12/08: Patient's free kappa/lambda ratio 0.02 and SPEP results concerning for possible multiple myeloma. Discussed with Dr. King with hematology/oncology. Case reviewed, given this is suspicious for multiple myeloma it was recommended to get a skeletal survey and a bone marrow biopsy. Discussed with patient family at bedside and patient agreeable. These orders have been placed. Patient will need to follow-up closely with Dr. King nextweek in the office if he is discharged over the weekend though currently unclearwhen patient will be ready for discharge. Renal biopsy pending, did have dialysis again today with no fluid taken off. -12/09: Patient skeletal survey with subtle round lucencies within bilateral humeri and right radius and questionable moth-eaten appearance of inferior aspects of bony pelvis which could be due to to summation of shadows and overlying structures however infiltrative process cannot be excluded. Preliminary pathology also concerning for lytes chains/myeloma. Discussed againwith hematology, will move forward with biopsy and patient is scheduled to tentatively follow with him in the office next if results are availableto work on/discussed treatment. Did have dialysis today with 4 L off, will likely have dialysis again tomorrow. Discussed with nephrology and hematology 12/10/2024: He is scheduled for outpatient dialysis on Thursday, , Thursday schedule. He is anemic at 7.2 no obvious signs of bleeding. There is concern for multiple myeloma so we will recheck tomorrow morning transfuse as indicated 12/11/2024: Anemia stabilized likely related to the concern for multiple myeloma. Will recheck tomorrow morning and if he does not need any further dialysis per nephrology tomorrow they can plan for discharge home and outpatientdialysis as previously scheduled # Irregular heart beat-A-fib with RVR -12/07: Patient notes he had an ablation 20 years ago for A-fib and has not had aproblem since, on telemetry seems that he was going in and out of a fast rate, looks like it is likely fib but has been unable to be obtained on twelve-lead. Starting patient on metoprolol, first dialysis today as well and holding albuterol treatments, recommendation may have led to or exacerbated underlying A-fib if patient continues to have episodes despite dialysis, metoprolol, and holding albuterol will need to consider risks and benefits of anticoagulation ondischarge -12/08: Patient intermittently with A-fib with RVR, adjusting metoprolol dosing, did convert temporarily with IV metoprolol earlier today, will continue to adjust medications. Did have TSH on presentation that was 0.591 -12/09: With 4 L of fluid removed heart rate improved and patient appears to be back in sinus rhythm, awaiting echocardiogram 12/10/2024: Heart rate back to normal sinus rhythm # Acute hypoxic respiratory failure secondary to fluid overload from renal failure -12/08: Patient's shortness of breath seems to worsen with elevated heart rates and improve when he is rate controlled more in sinus rhythm, adjusting metoprolol to achieve better control, TSH within normal limits. Did have chest x-ray on 12/06 that showed possible moderate interstitial pulmonary edema howeverpatient was subsequently dialyzed with 2 L off but did not seem to significantlyimprove respiratory status, had repeat chest x-ray with increased O2 needs whichdid also show edema and was given IV Lasix but with suboptimal output -12/09: Patient overnight required Airvo and was in respiratory distress, chest x-ray showed increased edema and he was given IV Lasix, did have some improvement but suboptimal output, today had 4 L out with dialysis and is now down to 4 L nasal cannula with good saturations and significantly improved breathing. Awaiting echocardiogram 12/10/2024: Echocardiogram is unremarkable with an EF of 55% stage I diastolic dysfunction with RVSP of 39 mmHg 12/11/2024: Will plan for an ambulatory pulse ox tomorrow prior to discharge # Hypercalcemia -Unclear if this is secondary to significant dehydration or if this could be a primary process associated with his renal failure and dehydration - Will hydrate with normal saline - Will check PTH and vitamin D - will check Phos - If no or minimal improvement can consider calcitonin and/or bisphosphonates - Will also check serum and urine protein electrophoresis given high calcium with kidney failure, high total protein and globulin, anemia and recent L1 fracture/bone pain in addition to generalized weakness - Chest x-ray also ordered to evaluate for any possible lesions -12/04: Improving with hydration, patient's Phos is high which is likely secondary to his renal failure, notably vitamin D is within normal limits at 43 and PTH is only 15. Suspect that patient's hypercalcemia is largely due to dehydration in addition to his hydrochlorothiazide in addition to multiple calcium based medications being taken daily for reflux but workup still pending. Protein electrophoresis pending and kappa lambda light chains ordered -12/05: Still slightly elevated at 11.5 but has consistently continued to improve, continue IV fluids and avoiding calcium based agents, continue to hold hydrochlorothiazide -12/06: Calcium within normal limits today -12/07: Calcium remains the same today, continue current management -12/08: Discussed with oncology, if potassium is elevated again would recommend 60 pamidronate -12/09: No present indication for bisphosphonate #Hyponatremia -Possibly secondary to dehydration but cannot say definitively, patient additionally on hydrochlorothiazide which will be held - Will order serum osmole's - Check urine studies - TSH - Lipid profile - Monitor I's and O's - Trend BMPs -12/04: Patient actually has elevated serum osmolality with an osmolality of 324 but no hyperglycemia or hyperlipidemia therefore suspect this is either due to his kidney failure with uremia or could possibly pseudohyponatremia due to a paraproteinemia +/- HCTZ, serum and urine protein electrophoresis pending as well as kappa lambda light chains. Notably sodium has slowly up trended to 129 with fluids and cessation of HCTZ, will continue present management while further workup underway -12/05: Sodium of 128, seems to have stabilized, do suspect that this is at leastin part due to renal disease with uremia, continue to monitor, continue to hold hydrochlorothiazide -12/06: Hyponatremia continues to remain stable with a sodium of 129, will not resume hydrochlorothiazide on discharge -12/07: Sodium is further improved to 131 today, patient had 2 L removed with dialysis, repeat a.m. -12/08: Sodium 132 today, continues to improve -12/09: Sodium has actually normalized today with dialysis 12/10/2024: Sodium is 131, will continue to monitor but at the moment of no significant concern # Macrocytic anemia -12/04: Patient with hemoglobin 10.7 on presentation with no previous baseline seen in our system, this a.m. hemoglobin 7.9 which is significant drop but no evidence of ongoing bleeding, suspect the patient was significantly volume depleted/dehydrated and was hemoconcentrated especially given drop in all 3 celllines. MCV is 98.6, will be ordering B12, iron panel, folate -12/05: Hemoglobin slightly lower today, in part likely due to dilution and blooddraws, 7.2 this a.m.. Folate is technically within normal limits but on the lowside so we will start folic acid but B12 within normal limits, iron and iron saturation within normal limits with elevated ferritin. 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 -12/06: Hemoglobin actually up to 7.7 today, continue to monitor -12/07: No evidence of blood loss, hemoglobin remaining stable, hemoglobin 7.9 today -12/08: Hemoglobin 7.2, has been fluctuating in the sevens, does not appear to have any acute blood loss -12/09: Patient had a.m. hemoglobin of 6.9 however before blood could be given he had dialysis and repeat hemoglobin showed a hemoglobin of 8.5 so will not proceed with transfusion #GERD -Continue PPI -12/04: Reportedly patient's been having significant reflux symptoms for the pastyear, takes omeprazole at home and has been taking nightly calcium based products for reflux, patient's reflux may be contributing to his nausea, will place on IV PPI twice daily, avoiding calcium based agents -12/05: Patient now on IV PPI every 12, avoiding calcium based agents, symptoms significantly improved -12/06: Doing very well on twice daily PPI, will likely need this on discharge -12/07: Has had significant improvement, currently reporting constipation but no upper GI symptoms -12/08: Still some poor p.o. intake, discussed protein shakes/meal supplements ifpatient does not want to eat to try to maintain nutrition -12/09: Started on Remeron to try to improve appetite #Hypertension -Will be holding valsartan/hydrochlorothiazide due to the above -12/04: Continue to hold valsartan/hydrochlorothiazide and monitor blood pressure, can consider alternative agent if necessary but will be careful to avoid hypotension -12/05: Hydralazine as needed if needed, continue to hold ARB and HCTZ -12/06: Patient on hydralazine as needed, would likely need to begin antihypertensive, will plan to do this after patient's procedure pending blood pressures -12/07: Amlodipine started, starting metoprolol as above -12/08: Metoprolol being uptitrated as above -12/09: On metoprolol and amlodipine #L1 compression fracture - Patient scheduled for kyphoplasty Thursday - Denies taking any NSAIDs or pain medications - Supportive care -12/04: Continue pain control and supportive care -12/05: Did advise to cancel kyphoplasty appointment given patient still in the hospital and to hold off on rescheduling until we have more answers and a better idea of discharge -12/06: Will need follow-up with pain management upon discharge -12/07: Due to patient having multiple procedures he has not been able to consistently work with PT, will need PT reeval when able and prior to discharge as patient does not often get out of bed and concerns that he could have some difficulty with mobility -12/08: Did work with PT today, felt generally weak and tired -12/09: Will continue to encourage up to chair and mobilization #Type 2 diabetes mellitus -Glucose checks and sliding scale insulin - Had somewhat low glucose of 59 on presentation - Will decrease long-acting insulin - Holding sitagliptin and metformin -12/04: Glucose has actually remained low, will discontinue long-acting insulin altogether -12/05: Glucose has been more stable overnight, continue to hold long-acting insulin -12/06: Glucose 123 this a.m., hemoglobin A1c 6.4, will need to decrease patient's insulin regimen significantly on discharge to avoid hypoglycemia -12/07: Glucose maintaining in the low 100s, continue current management -12/08: Glucose 96 this a.m., has had fairly poor p.o. intake, continue to encourage increased intake -12/09: A.m. glucose 94 this a.m., started on Remeron to try to improve appetite #Hypothyroidism -Continue Synthroid DVT: SCDs Charges/Coding Visit Charges Inpatient E&M: 01291 Subs Hosp L2 12/11/24 1012 <Electronically signed by Suraj Paz MD> Cosigner Signature (if applicable): CC: ~ Signed [facility] Work Phone: [phone]) [phone] Progress note Author Jameson Dickens tr [facility] Note Date/Time December 11, 2024 7 :57am [facility] Medical Records Department [address] [place] [id number] Progress Note - Nephrology 12/11/24 0746 MR#: [id number] Acct: [id number] Name: LINA VARGAS Rep #:[id number] : 1940 84 From: Jameson rodarte MD PCP: Dr. Luna Ashton, DO Status:AD M IN Location: [place] [address] Subjective Subjective Following for dialysis dependent DEANGELO due to myeloma kidney. Patient reports that his appetite is picking up. There is no nausea or vomiting. Patient complains of sinus congestion. However, there is no chest pain or dyspnea at rest. Objective Data Objective Data Vital Signs: Vital Signs Temp Pulse Resp BP Pulse Ox O2 Del Method O2 Flow Rate 97.7 F L 83 20 H 123/81 H 92 Nasal Cannula 3 12/11/24 03:30 12/11/24 03:30 12/11/24 03:30 12/11/24 03:30 12/11/24 07:44 12/11/24 07:44 12/11/24 07:44 FiO2 58 12/09/24 10:00 Oxygen Flow Rate (L/min) 3 Oxygen Delivery Method Nasal Cannula Weight: 76.022 kg Body Mass Index (BMI) 22.6 Intake & Output: Intake and Output for Last 24 Hours 12/09/24 12/10/24 12/11/24 23:59 23:59 23:59 Intake Total 830.2 / 1030.2 1590.2 / 1590.2 Output Total 4500 / 4600 4165 / 4165 120 / 120 Balance -3669.8 / -3569.8 -2574.8 / -2574.8 -120 / -120 Medical Nutrition Assessment Dietitian: Malnutrition Criteria Met Start: 12/04/24 12:12 Freq: Status: Active Protocol: Document 12/04/24 12:12 SLA (Rec: 12/04/24 12:13 SLA [email or web address]) Nutrition Malnutrition Evidence of Yes Malnutrition Exists Malnutrition (severe Acute Illness/Injury ): Evidenced By Suboptimal Energy Intake (Severe),Weight Loss (Severe) Clinical Problem Acute Disease or Injury Related Malnutrition Etiology related to issues 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 Status Active Problem Recommendation Dietitian Will liberalize diet to Regular w/ glucerna shake tid Recommendations/ at meals - once po intake improves, can adjust to carb Changes controlled diet if indicated. Will continue to follow and monitor for changes in pt nutritional status and make additional rec as indicate. Lab / Micro Data 12/11/24 03:50 12/11/24 03:50 Labs: Laboratory Results - last 24 hr 12/10/24 10:44: POC Glucose 113 H 12/10/24 16:53: POC Glucose 205 H 12/10/24 21:39: POC Glucose 156 H 12/11/24 03:50: WBC 2.9 L, RBC 2.03 L, Hgb 7.3 L, Hct 20.6 L, MCV 101.5 H, MCH 36.0 H, MCHC 35.4, RDW Std Deviation 43.9, RDW Coeff of Scotty 12.0, Plt Count 139 L, MPV 9.8, Immature Gran % (Auto) 0.000, Neut % (Auto) 50.4, Lymph % (Auto) 30.3, [place] % (Auto) 19.0 H, Eos % (Auto) 0.0, Baso % (Auto) 0.3, Absolute Neuts (auto) 1.5 L, Absolute Lymphs (auto) 0.88, Nucleated RBC % 0, Sodium 133, Potassium 3.4, Chloride 98, Carbon Dioxide 22.0, Anion Gap 14, BUN 47 H, Creatinine 4.77 H, Estim Creat Clear Calc 12.65 L, Est GFR (MDRD) Non-Af 11 L, BUN/Creatinine Ratio 9.8 L, Glucose 116 H, Calcium 10.1 12/11/24 06:21: POC Glucose 114 H Micro: Microbiology 12/03/24 20:38 Urine, Catheterized Urine Culture - Final Culture exhibits no growth. Physical Exam Narrative no obvious distress no JVD s1s2 no murmurs Clear to auscultation anteriorly. On O2 via nasal cannula abdomen soft, nontender no edema Assessment & Plan Assessment/Plan (1) Acute renal failure: PLAN: Baseline creatinine as of beginning of this year was around 1.4 or so. Admission creatinine more than 9. Monterroso indwelling without much urine output. Renal ultrasound pending Associated hypercalcemia recent spine related issues. Will check serum protein electrophoresis, kappa, lambda light chain assay. I will also send other serologies. He also takes Tums 1 a day due to acid reflux. I am not sure if that is the cause of hypercalcemia as well. So far PTH is suppressed. Continue IV fluids for now. If no significant recovery, may need a kidney biopsy. dw hospitalist 12/05/2024; SCr 8.56 on admission--> SCr 8.79 mg/dL today. Potassium and bicarb acceptable. Calcium 14.6 on admission, 11.5 today (continue holding valsartan/hydrochlorothiazide). Patient on IV fluids. Renal serologies pending. Urine output around 1.5 L yesterday (patient has Monterroso). Blood pressures acceptable. Though urine output has picked up renal function is slowly worsening and reviewed that with patient and his today. Reviewed with them that patient is quite possibly heading towards needing renal replacement therapy. Risks and benefits of dialysis explained. Dialysis in inpatient setting and outpatient setting also explained. Questions were answered. Patient is in agreement with moving forward with renal placement therapy. There is no urgent need for renal placement therapy today as potassiumand bicarb acceptable and volume status appears compensated. He did state he would like to see how his labs look tomorrow but in agreement with starting hemodialysis if necessary. Recommend surgery consult for hemodialysis catheter placement. Discussed nephrology plan with patient and . Discussed nephrology plan with Dr. Mazariegos. Labs ordered for morning. Assessment and planreviewed with Dr. Bah 12/06/2024; serum creatinine about the same today, 8.5 mg/dL, bicarb 20, potassium 4.2. Urine output yesterday 1.2 L. Calcium 10.9 today. Overnight patient developed difficulty breathing with wheezing, now on O2 nasal cannula. Can stop IV fluids. He is to have tunneled hemodialysis catheter placed today then will plan for dialysis afterwards and attempt small amount of fluid removalas patient/blood pressure tolerates. Renal serologies are pending. Discussed with patient today about kidney biopsy, risk and benefit of biopsy. Patient is in agreement with having kidney biopsy. Will place orders. Patient is not on any blood thinners. Continue to monitor for renal recovery. Discussed with case management, arrangements underway for outpatient hemodialysis at [facility] diagnosis DEANGELO. Assessment and plan reviewed with Dr. Bah 2024. Serologies are still pending. Significant protein gap. Hypercalcemia on admission, now better. Recent low back issues. Myeloma is possible. Will plan for kidney biopsy today. Dialysis today, dialysis tomorrow. Discussed with family bedside. 12/08/24. HD today. see orders. SPEP came back positive. K/L ratio skewed. possible myeloma. will call pathology for diagnosis later today. addendum. dw pathology. surprise, no myeloma. dense ATN. 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 needs hematology evaluation. multiple discussions with hospitalist, pathology 12/09/2024. Isolated UF today mostly for fluid removal. Serum protein electrophoresis with IgA and heavy chain monoclonality. Discussed with pathology at [facility] again today. 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 Bone scan done overnight showed osteolytic lesions, again consistent with multiple myeloma. Can send a serum viscosity. Discussed with hospitalist. UF today, likely dialysis tomorrow. Oncology consulted. Bone marrow biopsy ordered today. Discussed with family at bedside. All questions answered. 12/11/2024. Patient was dialyzed yesterday on 12/10/2024. He tolerated dialysis well. Volume and solute are controlled, so there is no need for dialysis today. Will reassess patient again tomorrow. Recheck renal function, volume status, acid- base and electrolytes again tomorrow. (2) Hypercalcemia: 12/11/24 0757 <Electronically signed by Jameson Brothers MD> Cosigner Signature (if applicable): CC: ~ Signed [facility] Work Phone: [phone] 705-108510-11-2025 Progress note Author Suraj Paz [facility] Note Date/Time December 10, 2024 1 0:52am [facility] Medical Records Department [address] [place] [address] Progress Note - Hospitalist 12/10/24 1003 MR#: [id number] Acct: [id number] Name: LINA VARGAS Rep #:[id number] : [id number] 84 From: Suraj mcclendon MD PCP: Dr. Luna Ashton, DO Status:AD IN Location: [place] [address] Subjective Subjective Feeling better, down to 2 L nasal cannula. Breathing much easier today Objective Data Objective Data Vital Signs: Vital Signs Temp Pulse Resp BP Pulse Ox O2 Del Method O2 Flow Rate 97.4 F L 94 16 175/91 H 94 Nasal Cannula 2 12/10/24 09:30 12/10/24 09:30 12/10/24 09:30 12/10/24 09:30 12/10/24 09:30 12/10/24 09:30 12/10/24 09:30 FiO2 58 12/09/24 10:00 Oxygen Flow Rate (L/min) 2 Oxygen Delivery Method Nasal Cannula Weight: 176 lb 12.972 oz Body Mass Index (BMI) 23.9 Intake & Output: Intake and Output for Last 24 Hours 12/09/24 12/10/24 12/11/24 03:59 03:59 03:59 Intake Total 550.2 / 550.2 1030.2 / 1030.2 200 / 200 Output Total 775 / 775 4600 / 4600 50 / 50 Balance -224.8 / -224.8 -3569.8 / -3569.8 150 / 150 Medical Nutrition Assessment Dietitian: Malnutrition Criteria Met Start: 12/04/24 12:12 Freq: Status: Active Protocol: Document 12/04/24 12:12 SLA (Rec: 12/04/24 12:13 SLA [email or web address]) Nutrition Malnutrition Evidence of Yes Malnutrition Exists Malnutrition (severe Acute Illness/Injury ): Evidenced By Suboptimal Energy Intake (Severe),Weight Loss (Severe) Clinical Problem Acute Disease or Injury Related Malnutrition Etiology related to issues 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 Status Active Problem Recommendation Dietitian Will liberalize diet to Regular w/ glucerna shake tid Recommendations/ at meals - once po intake improves, can adjust to carb Changes controlled diet if indicated. Will continue to follow and monitor for changes in pt nutritional status and make additional rec as indicate. Lab / Micro Data 12/10/24 06:04 12/10/24 06:04 Labs: Laboratory Results - last 24 hr 12/09/24 09:35: Blood Type O POSITIVE, Antibody Screen NEGATIVE, Crossmatch See Detail 12/09/24 10:45: WBC 5.8, RBC 2.26 L, Hgb 8.2 L, Hct 23.6 L, MCV 104.4 H, MCH 36.3 H, MCHC 34.7, RDW Std Deviation 46.1 H, RDW Coeff of Scotty 12.1, Plt Count 149 L, MPV 9.9, Immature Gran % (Auto) 0.300, Neut % (Auto) 68.0, Lymph % (Auto)18.0 L, [place] % (Auto) 12.5 H, Eos % (Auto) 1.0, Baso % (Auto) 0.2, Absolute Neuts (auto) 4.0, Absolute Lymphs (auto) 1.05, Nucleated RBC % 0, PT 15.0 H, INR1.2, APTT 28.0 12/09/24 14:09: POC Glucose 84 12/09/24 16:41: POC Glucose 100 12/09/24 21:02: POC Glucose 206 H 12/10/24 06:04: WBC 4.8, RBC 1.97 L, Hgb 7.2 L, Hct 19.9 L, MCV 101.0 H, MCH 36.5 H, MCHC 36.2 H, RDW Std Deviation 43.4, RDW Coeff of Scotty 11.9, Plt Count 147 L, MPV 10.0, Immature Gran % (Auto) 0.600, Neut % (Auto) 65.6, Lymph % (Auto) 19.1, [place] % (Auto) 12.6 H, Eos % (Auto) 1.9, Baso % (Auto) 0.2, AbsoluteNeuts (auto) 3.1, Absolute Lymphs (auto) 0.91, Nucleated RBC % 0, Sodium 131 L, Potassium 3.6, Chloride 96 L, Carbon Dioxide 21.1, Anion Gap 14, BUN 72 H, Creatinine 6.03 H, Estim Creat Clear Calc 10.01 L, Est GFR (MDRD) Non-Af 9 L, BUN/Creatinine Ratio 12.0, Glucose 135 H, Calcium 10.8 12/10/24 06:31: POC Glucose 119 H Micro: Microbiology 12/03/24 20:38 Urine, Catheterized Urine Culture - Final Culture exhibits no growth. Radiography Diagnostic Testing: Radiology Impression Echocardiogram 12/08/24 17:29 Interpretation Summary Mild concentric left ventricular hypertrophy. The left ventricular ejection fraction is 55 %. The global longitudinal strain = -13.4% (abnormal). Stage 1 diastolic dysfunction. Mild (1+) mitral valve insufficiency. Mild (1+) tricuspid valve insufficiency. Right ventricular systolic pressure estimated to be 39 mmHg. Mild-Moderate (1-2+) aortic valve insufficiency. Ordering Physician: Claire Mazariegos Performed By: Janae Perdomo RDCS Biopsy CT 12/09/24 09:51 IMPRESSION: Successful right iliac bone marrow biopsy. Pathology results pending. Reading Location: [place] [address] Physical Exam Narrative General: Alert, Oriented x3, Cooperative, No apparent distress HEENT: Atraumatic, PERRLA, EOMI, Normocephalic Oral: Moist Mucosa Neck: Supple, No JVD Lungs: Diminished, Normal air movement, No rhonchi, No wheeze, No rales Cardiovascular: Regular rate, Regular Rhythm, Normal S1, Normal S2, No murmurs Abdomen: Soft, Non Tender, Non-Distended, No Hepato-splenomegaly Extremities: No edema, Capillary Refill Less than 3 Seconds Skin: No rashes, No breakdown Musculoskeletal: No Tenderness to Palpation of Joints or Extremities Neurological: No focal neurological deficits, Motor Exam 5/5 strength throughout, Sensory exam intact to light touch and pain Psych/Mental Status: Normal Affect, Appropriate Assessment & Plan Assessment/Plan (1) Hypercalcemia: (2) Acute renal failure: PLAN: Plan #Acute kidney failure-concern for multiple myeloma -Patient with a creatinine around 1.5 at baseline with most recent value 9 months ago being 1.5 to - Presenting now with a creatinine of 8.56 - Bicarb 19.5 - Patient not hyperkalemic - Vitally stable and not volume overloaded - Patient alert, no seizure activity, confusion, altered mental status - Presently does not seem to have any indications for emergent dialysis - Suspect that patient's nausea and vomiting with very poor p.o. intake on top of continuing to take his valsartan/hydrochlorothiazide caused or largely contributed to his worsening renal failure - Patient reportedly had been urinating at home and even urinated this morning however in the ED unable to urinate and has 280 on bladder scan - Unclear if there has been an obstructive component to this as well given patient's report of urinating okay prior to coming in - Will have Monterroso catheter placed given patient reporting he is unable to urinate in the ED and bladder scan shows 280 - IV fluids - Will check UA given reports of suprapubic discomfort - Check urine studies - Kidney and bladder ultrasound -Check CK - Discussed with nephrology, nephrology consult placed -12/04: Despite sodium and calcium improving, kidney function has remained about the same, BUN this a.m. 112 with a creatinine of 8.49. UA with protein and occult blood, rare bacteria and does not seem UA is indicative of infection. FEUrea is 61.8 suggesting intrinsic renal disease. SPEP and UPEP pending, nephrology consulted, kidney and bladder ultrasound ordered, Monterroso catheter in place, patient has had 1300 output since admission yesterday evening. [place] lambda light chains ordered in addition to protein electrophoresis. Discussed with nephrology. -12/05: BUN 107 with a creatinine slightly worse of 8.79, still making urine, nephrology following, lab workup pending, kidney and bladder ultrasound is ordered and pending -12/06: Kidney and bladder ultrasound normal, kidney function virtually unchangedsince presentation, patient for tunneled dialysis catheter today per nephrology recommendation to begin dialysis, discussed with nephrology, patient also for kidney biopsy tomorrow -12/07: Patient had dialysis today, 2 L taken off and tolerated that well, patient for biopsy today -12/08: Patient's free kappa/lambda ratio 0.02 and SPEP results concerning for possible multiple myeloma. Discussed with Dr. King with hematology/oncology. Case reviewed, given this is suspicious for multiple myeloma it was recommended to get a skeletal survey and a bone marrow biopsy. Discussed with patient family at bedside and patient agreeable. These orders have been placed. Patient will need to follow-up closely with Dr. King nextweek in the office if he is discharged over the weekend though currently unclearwhen patient will be ready for discharge. Renal biopsy pending, did have dialysis again today with no fluid taken off. -12/09: Patient skeletal survey with subtle round lucencies within bilateral humeri and right radius and questionable moth-eaten appearance of inferior aspects of bony pelvis which could be due to to summation of shadows and overlying structures however infiltrative process cannot be excluded. Preliminary pathology also concerning for lytes chains/myeloma. Discussed againwith hematology, will move forward with biopsy and patient is scheduled to tentatively follow with him in the office next if results are availableto work on/discussed treatment. Did have dialysis today with 4 L off, will likely have dialysis again tomorrow. Discussed with nephrology and hematology 12/10/2024: He is scheduled for outpatient dialysis on Thursday, , Thursday schedule. He is anemic at 7.2 no obvious signs of bleeding. There is concern for multiple myeloma so we will recheck tomorrow morning transfuse as indicated # Irregular heart beat-A-fib with RVR -12/07: Patient notes he had an ablation 20 years ago for A-fib and has not had aproblem since, on telemetry seems that he was going in and out of a fast rate, looks like it is likely fib but has been unable to be obtained on twelve-lead. Starting patient on metoprolol, first dialysis today as well and holding albuterol treatments, recommendation may have led to or exacerbated underlying A-fib if patient continues to have episodes despite dialysis, metoprolol, and holding albuterol will need to consider risks and benefits of anticoagulation ondischarge -12/08: Patient intermittently with A-fib with RVR, adjusting metoprolol dosing, did convert temporarily with IV metoprolol earlier today, will continue to adjust medications. Did have TSH on presentation that was 0.591 -12/09: With 4 L of fluid removed heart rate improved and patient appears to be back in sinus rhythm, awaiting echocardiogram 12/10/2024: Heart rate back to normal sinus rhythm # Acute hypoxic respiratory failure secondary to fluid overload from renal failure -12/08: Patient's shortness of breath seems to worsen with elevated heart rates and improve when he is rate controlled more in sinus rhythm, adjusting metoprolol to achieve better control, TSH within normal limits. Did have chest x-ray on 12/06 that showed possible moderate interstitial pulmonary edema howeverpatient was subsequently dialyzed with 2 L off but did not seem to significantlyimprove respiratory status, had repeat chest x-ray with increased O2 needs whichdid also show edema and was given IV Lasix but with suboptimal output -12/09: Patient overnight required Airvo and was in respiratory distress, chest x-ray showed increased edema and he was given IV Lasix, did have some improvement but suboptimal output, today had 4 L out with dialysis and is now down to 4 L nasal cannula with good saturations and significantly improved breathing. Awaiting echocardiogram 12/10/2024: Echocardiogram is unremarkable with an EF of 55% stage I diastolic dysfunction with RVSP of 39 mmHg # Hypercalcemia -Unclear if this is secondary to significant dehydration or if this could be a primary process associated with his renal failure and dehydration - Will hydrate with normal saline - Will check PTH and vitamin D - will check Phos - If no or minimal improvement can consider calcitonin and/or bisphosphonates - Will also check serum and urine protein electrophoresis given high calcium with kidney failure, high total protein and globulin, anemia and recent L1 fracture/bone pain in addition to generalized weakness - Chest x-ray also ordered to evaluate for any possible lesions -12/04: Improving with hydration, patient's Phos is high which is likely secondary to his renal failure, notably vitamin D is within normal limits at 43 and PTH is only 15. Suspect that patient's hypercalcemia is largely due to dehydration in addition to his hydrochlorothiazide in addition to multiple calcium based medications being taken daily for reflux but workup still pending. Protein electrophoresis pending and kappa lambda light chains ordered -12/05: Still slightly elevated at 11.5 but has consistently continued to improve, continue IV fluids and avoiding calcium based agents, continue to hold hydrochlorothiazide -12/06: Calcium within normal limits today -12/07: Calcium remains the same today, continue current management -12/08: Discussed with oncology, if potassium is elevated again would recommend 60 pamidronate -12/09: No present indication for bisphosphonate #Hyponatremia -Possibly secondary to dehydration but cannot say definitively, patient additionally on hydrochlorothiazide which will be held - Will order serum osmole's - Check urine studies - TSH - Lipid profile - Monitor I's and O's - Trend BMPs -12/04: Patient actually has elevated serum osmolality with an osmolality of 324 but no hyperglycemia or hyperlipidemia therefore suspect this is either due to his kidney failure with uremia or could possibly pseudohyponatremia due to a paraproteinemia +/- HCTZ, serum and urine protein electrophoresis pending as well as kappa lambda light chains. Notably sodium has slowly up trended to 129 with fluids and cessation of HCTZ, will continue present management while further workup underway -12/05: Sodium of 128, seems to have stabilized, do suspect that this is at leastin part due to renal disease with uremia, continue to monitor, continue to hold hydrochlorothiazide -12/06: Hyponatremia continues to remain stable with a sodium of 129, will not resume hydrochlorothiazide on discharge -12/07: Sodium is further improved to 131 today, patient had 2 L removed with dialysis, repeat a.m. -12/08: Sodium 132 today, continues to improve -12/09: Sodium has actually normalized today with dialysis 12/10/2024: Sodium is 131, will continue to monitor but at the moment of no significant concern # Macrocytic anemia -12/04: Patient with hemoglobin 10.7 on presentation with no previous baseline seen in our system, this a.m. hemoglobin 7.9 which is significant drop but no evidence of ongoing bleeding, suspect the patient was significantly volume depleted/dehydrated and was hemoconcentrated especially given drop in all 3 celllines. MCV is 98.6, will be ordering B12, iron panel, folate -12/05: Hemoglobin slightly lower today, in part likely due to dilution and blooddraws, 7.2 this a.m.. Folate is technically within normal limits but on the lowside so we will start folic acid but B12 within normal limits, iron and iron saturation within normal limits with elevated ferritin. 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 -12/06: Hemoglobin actually up to 7.7 today, continue to monitor -12/07: No evidence of blood loss, hemoglobin remaining stable, hemoglobin 7.9 today -12/08: Hemoglobin 7.2, has been fluctuating in the sevens, does not appear to have any acute blood loss -12/09: Patient had a.m. hemoglobin of 6.9 however before blood could be given he had dialysis and repeat hemoglobin showed a hemoglobin of 8.5 so will not proceed with transfusion #GERD -Continue PPI -12/04: Reportedly patient's been having significant reflux symptoms for the pastyear, takes omeprazole at home and has been taking nightly calcium based products for reflux, patient's reflux may be contributing to his nausea, will place on IV PPI twice daily, avoiding calcium based agents -12/05: Patient now on IV PPI every 12, avoiding calcium based agents, symptoms significantly improved -12/06: Doing very well on twice daily PPI, will likely need this on discharge -12/07: Has had significant improvement, currently reporting constipation but no upper GI symptoms -12/08: Still some poor p.o. intake, discussed protein shakes/meal supplements ifpatient does not want to eat to try to maintain nutrition -12/09: Started on Remeron to try to improve appetite #Hypertension -Will be holding valsartan/hydrochlorothiazide due to the above -12/04: Continue to hold valsartan/hydrochlorothiazide and monitor blood pressure, can consider alternative agent if necessary but will be careful to avoid hypotension -10/6: Hydralazine as needed if needed, continue to hold ARB and HCTZ -12/06: Patient on hydralazine as needed, would likely need to begin antihypertensive, will plan to do this after patient's procedure pending blood pressures -12/07: Amlodipine started, starting metoprolol as above -12/08: Metoprolol being uptitrated as above -12/09: On metoprolol and amlodipine #L1 compression fracture - Patient scheduled for kyphoplasty Thursday - Denies taking any NSAIDs or pain medications - Supportive care -12/04: Continue pain control and supportive care -12/05: Did advise to cancel kyphoplasty appointment given patient still in the hospital and to hold off on rescheduling until we have more answers and a better idea of discharge -12/06: Will need follow-up with pain management upon discharge -12/07: Due to patient having multiple procedures he has not been able to consistently work with PT, will need PT reeval when able and prior to discharge as patient does not often get out of bed and concerns that he could have some difficulty with mobility -12/08: Did work with PT today, felt generally weak and tired -12/09: Will continue to encourage up to chair and mobilization #Type 2 diabetes mellitus -Glucose checks and sliding scale insulin - Had somewhat low glucose of 59 on presentation - Will decrease long-acting insulin - Holding sitagliptin and metformin -12/04: Glucose has actually remained low, will discontinue long-acting insulin altogether -12/05: Glucose has been more stable overnight, continue to hold long-acting insulin -12/06: Glucose 123 this a.m., hemoglobin A1c 6.4, will need to decrease patient's insulin regimen significantly on discharge to avoid hypoglycemia -12/07: Glucose maintaining in the low 100s, continue current management -12/08: Glucose 96 this a.m., has had fairly poor p.o. intake, continue to encourage increased intake -12/09: A.m. glucose 94 this a.m., started on Remeron to try to improve appetite #Hypothyroidism -Continue Synthroid DVT: SCDs Charges/Coding Visit Charges Inpatient E&M: 03907 Subs Hosp L2 12/10/24 1052 <Electronically signed by Suraj aPz MD> Cosigner Signature (if applicable): CC: ~ Signed [facility] Work Phone: [phone] 334-307510-10-2025 Progress note Author Alyssia Bah [facility] Note Date/Time December 09, 2024 1 2:37pm [facility] Medical Records Department [address] [place] [address] Progress Note - Nephrology 12/09/24 1235 MR#: [id number] Acct: [id number] Name: LINA VARGAS Rep #:[id number] : 1940 84 From: Alyssia goetz MD PCP: Dr. Luna Ashton, DO Status:AD M IN Location: [place] [address] Subjective Subjective Overnight events noted. Had respiratory distress, currently on high flow nasal cannula. Chest x-ray looks pretty wet. Did not tolerate fluid removal yesterday. Was mostly clearance. Objective Data Objective Data Vital Signs: Vital Signs Temp Pulse Resp BP Pulse Ox O2 Del Method O2 Flow Rate 97.8 F 81 17 142/79 H 97 Nasal Cannula 4 12/09/24 11:35 12/09/24 11:35 12/09/24 11:35 12/09/24 11:35 12/09/24 11:49 12/09/24 11:49 12/09/24 11:49 FiO2 58 12/09/24 10:00 Oxygen Flow Rate (L/min) 4 Oxygen Delivery Method Nasal Cannula Weight: 75.2 kg Body Mass Index (BMI) 22.4 Intake & Output: Intake and Output for Last 24 Hours 12/07/24 12/08/24 12/09/24 23:59 23:59 23:59 Intake Total 1365.2 / 1365.2 550.2 / 550.2 0 / 0 Output Total 3040 / 3040 775 / 775 4300 / 4300 Balance -1674.8 / -1674.8 -224.8 / -224.8 -4300 / -4300 Medical Nutrition Assessment Dietitian: Malnutrition Criteria Met Start: 12/04/24 12:12 Freq: Status: Active Protocol: Document 12/04/24 12:12 SLA (Rec: 12/04/24 12:13 SLA [email or web address]) Nutrition Malnutrition Evidence of Yes Malnutrition Exists Malnutrition (severe Acute Illness/Injury ): Evidenced By Suboptimal Energy Intake (Severe),Weight Loss (Severe) Clinical Problem Acute Disease or Injury Related Malnutrition Etiology related to issues 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 Status Active Problem Recommendation Dietitian Will liberalize diet to Regular w/ glucerna shake tid Recommendations/ at meals - once po intake improves, can adjust to carb Changes controlled diet if indicated. Will continue to follow and monitor for changes in pt nutritional status and make additional rec as indicate. Lab / Micro Data 12/09/24 10:45 12/09/24 05:23 Labs: Laboratory Results - last 24 hr 12/08/24 04:38: Retic Count 0.76, Immature Retic Fraction 8.90, Retic Hgb Equivalent 39.1 H 12/08/24 16:27: POC Glucose 110 H 12/08/24 21:45: POC Glucose 121 H 12/09/24 05:23: WBC 5.0, RBC 1.91 L, Hgb 6.9 L, Hct 20.0 L, MCV 104.7 H, MCH 36.1 H, MCHC 34.5, RDW Std Deviation 46.1 H, RDW Coeff of Scotty 12.1, Plt Count 126 L, MPV 10.1, Sodium 134, Potassium 3.8, Chloride 98, Carbon Dioxide 23.9, Anion Gap 12, BUN 54 H, Creatinine 4.94 H, Estim Creat Clear Calc 12.22 L, Est GFR (MDRD) Non-Af 11 L, BUN/Creatinine Ratio 10.9, Glucose 96, Calcium 10.7, Magnesium 2.6 H, [place] [address] H 12/09/24 06:19: POC Glucose 94 12/09/24 09:35: Blood Type O POSITIVE, Antibody Screen NEGATIVE, Crossmatch See Detail 12/09/24 10:45: WBC 5.8, RBC 2.26 L, Hgb 8.2 L, Hct 23.6 L, MCV 104.4 H, MCH 36.3 H, MCHC 34.7, RDW Std Deviation 46.1 H, RDW Coeff of [place] 12.1, Plt Count 149 L, MPV 9.9, Immature Gran % (Auto) 0.300, Neut % (Auto) 68.0, Lymph % (Auto)18.0 L, [place] % (Auto) 12.5 H, Eos % (Auto) 1.0, Baso % (Auto) 0.2, Absolute Neuts (auto) 4.0, Absolute Lymphs (auto) 1.05, Nucleated RBC % 0, PT 15.0 H, INR1.2, APTT 28.0 Micro: Microbiology 12/03/24 20:38 Urine, Catheterized Urine Culture - Final Culture exhibits no growth. ABG Data ABG results: ABG 12/08/24 22:06 Specimen Type ART Sample Site R Radial pH 7.51 H Bicarbonate Actual 23.6 Total CO2 25 Base Excess 1 O2 Saturation 92 L O2 % 9.0 ABG pCO2 29.6 L ABG pO2 57 L Rachael Test Positive O2 Delivery Device HFNC Vent Mode Not entered Radiography Diagnostic Testing: Radiology Impression Bone Osseous Survey 12/08/24 14:45 IMPRESSION: 1. Subtle round lucencies within the bilateral humeri and right radius, concerning for underlying malignancy. 2. Questionable moth-eaten appearance of the inferior aspects of the bony pelviscould be due to summation of shadows and overlying structures, however an infiltrative process can not be excluded. Reading Location: [facility] Chest X-Ray 12/08/24 18:33 IMPRESSION: Pulmonary findings as above. Reading Location: [address] Physical Exam Narrative no obvious distress no JVD s1s2 no murmurs Diminished breath sounds with faint expiratory wheezing. On O2 via nasal cannula abdomen soft, nontender no edema Assessment & Plan Assessment/Plan (1) Hypercalcemia: (2) Acute renal failure: PLAN: Baseline creatinine as of beginning of this year was around 1.4 or so. Admission creatinine more than 9. Monterroso indwelling without much urine output. Renal ultrasound pending Associated hypercalcemia recent spine related issues. Will check serum protein electrophoresis, kappa, lambda light chain assay. I will also send other serologies. He also takes Tums 1 a day due to acid reflux. I am not sure if that is the cause of hypercalcemia as well. So far PTH is suppressed. Continue IV fluids for now. If no significant recovery, may need a kidney biopsy. dw hospitalist 12/05/2024; SCr 8.56 on admission--> SCr 8.79 mg/dL today. Potassium and bicarb acceptable. Calcium 14.6 on admission, 11.5 today (continue holding valsartan/hydrochlorothiazide). Patient on IV fluids. Renal serologies pending. Urine output around 1.5 L yesterday (patient has Monterroso). Blood pressures acceptable. Though urine output has picked up renal function is slowly worsening and reviewed that with patient and his today. Reviewed with them that patient is quite possibly heading towards needing renal replacement therapy. Risks and benefits of dialysis explained. Dialysis in inpatient setting and outpatient setting also explained. Questions were answered. Patient is in agreement with moving forward with renal placement therapy. There is no urgent need for renal placement therapy today as potassiumand bicarb acceptable and volume status appears compensated. He did state he would like to see how his labs look tomorrow but in agreement with starting hemodialysis if necessary. Recommend surgery consult for hemodialysis catheter placement. Discussed nephrology plan with patient and . Discussed nephrology plan with Dr. Mazariegos. Labs ordered for morning. Assessment and planreviewed with Dr. Bah 12/06/2024; serum creatinine about the same today, 8.5 mg/dL, bicarb 20, potassium 4.2. Urine output yesterday 1.2 L. Calcium 10.9 today. Overnight patient developed difficulty breathing with wheezing, now on O2 nasal cannula. Can stop IV fluids. He is to have tunneled hemodialysis catheter placed today then will plan for dialysis afterwards and attempt small amount of fluid removalas patient/blood pressure tolerates. Renal serologies are pending. Discussed with patient today about kidney biopsy, risk and benefit of biopsy. Patient is in agreement with having kidney biopsy. Will place orders. Patient is not on any blood thinners. Continue to monitor for renal recovery. Discussed with case management, arrangements underway for outpatient hemodialysis at [facility] diagnosis DEANGELO. Assessment and plan reviewed with Dr. Bah 2024. Serologies are still pending. Significant protein gap. Hypercalcemia on admission, now better. Recent low back issues. Myeloma is possible. Will plan for kidney biopsy today. Dialysis today, dialysis tomorrow. Discussed with family bedside. 12/08/24. HD today. see orders. SPEP came back positive. K/L ratio skewed. possible myeloma. will call pathology for diagnosis later today. addendum. dw pathology. surprise, no myeloma. dense ATN. 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 needs hematology evaluation. multiple discussions with hospitalist, pathology 12/09/2024. Isolated UF today mostly for fluid removal. Serum protein electrophoresis with IgA and heavy chain monoclonality. Discussed with pathology at [facility] again today. 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 Bone scan done overnight showed osteolytic lesions, again consistent with multiple myeloma. Can send a serum viscosity. Discussed with hospitalist. UF today, likely dialysis tomorrow. Oncology consulted. Bone marrow biopsy ordered today. Discussed with family at bedside. All questions answered. 12/09/24 1237 <Electronically signed by Alyssia Bah MD> Cosigner Signature (if applicable): CC: ~ Signed [facility] Work Phone: 1(461) 740-566610-10-2025 Progress note Author Claire Mazariegos [facility] Note Date/Time December 09, 2024 1 2:05pm [facility] Medical Records Department [address] [place] [address] Progress Note - Hospitalist 12/09/24 1156 MR#: [id number] Acct: [id number] Name: LINA VARGAS Rep #:[id number] : 1940 84 From: Claire Mazariegos MD PCP: Dr. Luna Ashton, DO Status:AD M IN Location: [place] [address]- 1 Reason for Visit Chief Complaint: N/V, generalized weakness Subjective Subjective Patient was short of breath overnight was transition to Airvo which did help, today he has been decreased back to 4 L of nasal cannula with good sats after having 4 L taken off during dialysis Objective Data Objective Data Vital Signs: Vital Signs Temp Pulse Resp BP Pulse Ox O2 Del Method O2 Flow Rate 97.8 F 81 17 142/79 H 97 Nasal Cannula 4 12/09/24 11:35 12/09/24 11:35 12/09/24 11:35 12/09/24 11:35 12/09/24 11:49 12/09/24 11:49 12/09/24 11:49 FiO2 58 12/09/24 10:00 Oxygen Flow Rate (L/min) 4 Oxygen Delivery Method Nasal Cannula Weight: 75.2 kg Body Mass Index (BMI) 22.4 Intake & Output: Intake and Output for Last 24 Hours 12/07/24 12/08/24 12/09/24 23:59 23:59 23:59 Intake Total 1365.2 / 1365.2 550.2 / 550.2 Output Total 3040 / 3040 775 / 775 4300 / 4300 Balance -1674.8 / -1674.8 -224.8 / -224.8 -4300 / -4300 Medical Nutrition Assessment Dietitian: Malnutrition Criteria Met Start: 12/04/24 12:12 Freq: Status: Active Protocol: Document 12/04/24 12:12 SLA (Rec: 12/04/24 12:13 SLA ...7) Nutrition Malnutrition Evidence of Yes Malnutrition Exists Malnutrition (severe Acute Illness/Injury ): Evidenced By Suboptimal Energy Intake (Severe),Weight Loss (Severe) Clinical Problem Acute Disease or Injury Related Malnutrition Etiology related to issues 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 Status Active Problem Recommendation Dietitian Will liberalize diet to Regular w/ glucerna shake tid Recommendations/ at meals - once po intake improves, can adjust to carb Changes controlled diet if indicated. Will continue to follow and monitor for changes in pt nutritional status and make additional rec as indicate. Lab / Micro Data 12/09/24 10:45 12/09/24 05:23 Labs: Laboratory Results - last 24 hr 12/08/24 04:38: Retic Count 0.76, Immature Retic Fraction 8.90, Retic Hgb Equivalent 39.1 H 12/08/24 11:30: POC Glucose 96 12/08/24 16:27: POC Glucose 110 H 12/08/24 21:45: POC Glucose 121 H 12/09/24 05:23: WBC 5.0, RBC 1.91 L, Hgb 6.9 L, Hct 20.0 L, MCV 104.7 H, MCH 36.1 H, MCHC 34.5, RDW Std Deviation 46.1 H, RDW Coeff of Scotty 12.1, Plt Count 126 L, MPV 10.1, Sodium 134, Potassium 3.8, Chloride 98, Carbon Dioxide 23.9, Anion Gap 12, BUN 54 H, Creatinine 4.94 H, Estim Creat Clear Calc 12.22 L, Est GFR (MDRD) Non-Af 11 L, BUN/Creatinine Ratio 10.9, Glucose 96, Calcium 10.7, Magnesium 2.6 H, [place] [address] H 12/09/24 06:19: POC Glucose 94 12/09/24 09:35: Blood Type O POSITIVE, Antibody Screen NEGATIVE, Crossmatch See Detail 12/09/24 10:45: WBC 5.8, RBC 2.26 L, Hgb 8.2 L, Hct 23.6 L, MCV 104.4 H, MCH 36.3 H, MCHC 34.7, RDW Std Deviation 46.1 H, RDW Coeff of Scotty 12.1, Plt Count 149 L, MPV 9.9, Immature Gran % (Auto) 0.300, Neut % (Auto) 68.0, Lymph % (Auto)18.0 L, [place] % (Auto) 12.5 H, Eos % (Auto) 1.0, Baso % (Auto) 0.2, Absolute Neuts (auto) 4.0, Absolute Lymphs (auto) 1.05, Nucleated RBC % 0, PT 15.0 H, INR1.2, APTT 28.0 Micro: Microbiology 12/03/24 20:38 Urine, Catheterized Urine Culture - Final Culture exhibits no growth. ABG Data ABG results: ABG 12/08/24 22:06 Specimen Type ART Sample Site R Radial pH 7.51 H Bicarbonate Actual 23.6 Total CO2 25 Base Excess 1 O2 Saturation 92 L O2 % 9.0 ABG pCO2 29.6 L ABG pO2 57 L Rachael Test Positive O2 Delivery Device HFNC Vent Mode Not entered Radiography Diagnostic Testing: Radiology Impression Bone Osseous Survey 12/08/24 14:45 IMPRESSION: 1. Subtle round lucencies within the bilateral humeri and right radius, concerning for underlying malignancy. 2. Questionable moth-eaten appearance of the inferior aspects of the bony pelviscould be due to summation of shadows and overlying structures, however an infiltrative process can not be excluded. Reading Location: [facility] Chest X-Ray 12/08/24 18:33 IMPRESSION: Pulmonary findings as above. Reading Location: [address] Physical Exam Narrative General: Alert, appears tired HEENT: Atraumatic, normocephalic Eyes: extraocular movements grossly intact Neck: Supple Respiratory: Slight increased respiratory effort Cardiovascular: Back in regular rhythm Extremities: Moving all extremities Neuro: No overt focal neurological deficits Psych: Cooperative Assessment & Plan Assessment/Plan (1) Hypercalcemia: (2) Acute renal failure: PLAN: Plan #Acute kidney failure-concern for multiple myeloma -Patient with a creatinine around 1.5 at baseline with most recent value 9 months ago being 1.5 to - Presenting now with a creatinine of 8.56 - Bicarb 19.5 - Patient not hyperkalemic - Vitally stable and not volume overloaded - Patient alert, no seizure activity, confusion, altered mental status - Presently does not seem to have any indications for emergent dialysis - Suspect that patient's nausea and vomiting with very poor p.o. intake on top of continuing to take his valsartan/hydrochlorothiazide caused or largely contributed to his worsening renal failure - Patient reportedly had been urinating at home and even urinated this morning however in the ED unable to urinate and has 280 on bladder scan - Unclear if there has been an obstructive component to this as well given patient's report of urinating okay prior to coming in - Will have Monterroso catheter placed given patient reporting he is unable to urinate in the ED and bladder scan shows 280 - IV fluids - Will check UA given reports of suprapubic discomfort - Check urine studies - Kidney and bladder ultrasound -Check CK - Discussed with nephrology, nephrology consult placed -12/04: Despite sodium and calcium improving, kidney function has remained about the same, BUN this a.m. 112 with a creatinine of 8.49. UA with protein and occult blood, rare bacteria and does not seem UA is indicative of infection. FEUrea is 61.8 suggesting intrinsic renal disease. SPEP and UPEP pending, nephrology consulted, kidney and bladder ultrasound ordered, Monterroso catheter in place, patient has had 1300 output since admission yesterday evening. [place] lambda light chains ordered in addition to protein electrophoresis. Discussed with nephrology. -12/05: BUN 107 with a creatinine slightly worse of 8.79, still making urine, nephrology following, lab workup pending, kidney and bladder ultrasound is ordered and pending -12/06: Kidney and bladder ultrasound normal, kidney function virtually unchangedsince presentation, patient for tunneled dialysis catheter today per nephrology recommendation to begin dialysis, discussed with nephrology, patient also for kidney biopsy tomorrow -12/07: Patient had dialysis today, 2 L taken off and tolerated that well, patient for biopsy today -12/08: Patient's free kappa/lambda ratio 0.02 and SPEP results concerning for possible multiple myeloma. Discussed with Dr. King with hematology/oncology. Case reviewed, given this is suspicious for multiple myeloma it was recommended to get a skeletal survey and a bone marrow biopsy. Discussed with patient family at bedside and patient agreeable. These orders have been placed. Patient will need to follow-up closely with Dr. King nextweek in the office if he is discharged over the weekend though currently unclearwhen patient will be ready for discharge. Renal biopsy pending, did have dialysis again today with no fluid taken off. -12/09: Patient skeletal survey with subtle round lucencies within bilateral humeri and right radius and questionable moth-eaten appearance of inferior aspects of bony pelvis which could be due to to summation of shadows and overlying structures however infiltrative process cannot be excluded. Preliminary pathology also concerning for lytes chains/myeloma. Discussed againwith hematology, will move forward with biopsy and patient is scheduled to tentatively follow with him in the office next if results are availableto work on/discussed treatment. Did have dialysis today with 4 L off, will likely have dialysis again tomorrow. Discussed with nephrology and hematology # Irregular heart beat-A-fib with RVR -12/07: Patient notes he had an ablation 20 years ago for A-fib and has not had aproblem since, on telemetry seems that he was going in and out of a fast rate, looks like it is likely fib but has been unable to be obtained on twelve-lead. Starting patient on metoprolol, first dialysis today as well and holding albuterol treatments, recommendation may have led to or exacerbated underlying A-fib if patient continues to have episodes despite dialysis, metoprolol, and holding albuterol will need to consider risks and benefits of anticoagulation ondischarge -12/08: Patient intermittently with A-fib with RVR, adjusting metoprolol dosing, did convert temporarily with IV metoprolol earlier today, will continue to adjust medications. Did have TSH on presentation that was 0.591 -12/09: With 4 L of fluid removed heart rate improved and patient appears to be back in sinus rhythm, awaiting echocardiogram # Acute hypoxic respiratory failure secondary to fluid overload from renal failure -12/08: Patient's shortness of breath seems to worsen with elevated heart rates and improve when he is rate controlled more in sinus rhythm, adjusting metoprolol to achieve better control, TSH within normal limits. Did have chest x-ray on 12/06 that showed possible moderate interstitial pulmonary edema howeverpatient was subsequently dialyzed with 2 L off but did not seem to significantlyimprove respiratory status, had repeat chest x-ray with increased O2 needs whichdid also show edema and was given IV Lasix but with suboptimal output -12/09: Patient overnight required Airvo and was in respiratory distress, chest x-ray showed increased edema and he was given IV Lasix, did have some improvement but suboptimal output, today had 4 L out with dialysis and is now down to 4 L nasal cannula with good saturations and significantly improved breathing. Awaiting echocardiogram # Hypercalcemia -Unclear if this is secondary to significant dehydration or if this could be a primary process associated with his renal failure and dehydration - Will hydrate with normal saline - Will check PTH and vitamin D - will check Phos - If no or minimal improvement can consider calcitonin and/or bisphosphonates - Will also check serum and urine protein electrophoresis given high calcium with kidney failure, high total protein and globulin, anemia and recent L1 fracture/bone pain in addition to generalized weakness - Chest x-ray also ordered to evaluate for any possible lesions -12/04: Improving with hydration, patient's Phos is high which is likely secondary to his renal failure, notably vitamin D is within normal limits at 43 and PTH is only 15. Suspect that patient's hypercalcemia is largely due to dehydration in addition to his hydrochlorothiazide in addition to multiple calcium based medications being taken daily for reflux but workup still pending. Protein electrophoresis pending and kappa lambda light chains ordered -12/05: Still slightly elevated at 11.5 but has consistently continued to improve, continue IV fluids and avoiding calcium based agents, continue to hold hydrochlorothiazide -12/06: Calcium within normal limits today -12/07: Calcium remains the same today, continue current management -12/08: Discussed with oncology, if potassium is elevated again would recommend 60 pamidronate -12/09: No present indication for bisphosphonate #Hyponatremia -Possibly secondary to dehydration but cannot say definitively, patient additionally on hydrochlorothiazide which will be held - Will order serum osmole's - Check urine studies - TSH - Lipid profile - Monitor I's and O's - Trend BMPs -12/04: Patient actually has elevated serum osmolality with an osmolality of 324 but no hyperglycemia or hyperlipidemia therefore suspect this is either due to his kidney failure with uremia or could possibly pseudohyponatremia due to a paraproteinemia +/- HCTZ, serum and urine protein electrophoresis pending as well as kappa lambda light chains. Notably sodium has slowly up trended to 129 with fluids and cessation of HCTZ, will continue present management while further workup underway -12/05: Sodium of 128, seems to have stabilized, do suspect that this is at leastin part due to renal disease with uremia, continue to monitor, continue to hold hydrochlorothiazide -12/06: Hyponatremia continues to remain stable with a sodium of 129, will not resume hydrochlorothiazide on discharge -12/07: Sodium is further improved to 131 today, patient had 2 L removed with dialysis, repeat a.m. -12/08: Sodium 132 today, continues to improve -12/09: Sodium has actually normalized today with dialysis # Macrocytic anemia -12/04: Patient with hemoglobin 10.7 on presentation with no previous baseline seen in our system, this a.m. hemoglobin 7.9 which is significant drop but no evidence of ongoing bleeding, suspect the patient was significantly volume depleted/dehydrated and was hemoconcentrated especially given drop in all 3 celllines. MCV is 98.6, will be ordering B12, iron panel, folate -12/05: Hemoglobin slightly lower today, in part likely due to dilution and blooddraws, 7.2 this a.m.. Folate is technically within normal limits but on the lowside so we will start folic acid but B12 within normal limits, iron and iron saturation within normal limits with elevated ferritin. 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 -12/06: Hemoglobin actually up to 7.7 today, continue to monitor -12/07: No evidence of blood loss, hemoglobin remaining stable, hemoglobin 7.9 today -12/08: Hemoglobin 7.2, has been fluctuating in the sevens, does not appear to have any acute blood loss -12/09: Patient had a.m. hemoglobin of 6.9 however before blood could be given he had dialysis and repeat hemoglobin showed a hemoglobin of 8.5 so will not proceed with transfusion #GERD -Continue PPI -12/04: Reportedly patient's been having significant reflux symptoms for the pastyear, takes omeprazole at home and has been taking nightly calcium based products for reflux, patient's reflux may be contributing to his nausea, will place on IV PPI twice daily, avoiding calcium based agents -12/05: Patient now on IV PPI every 12, avoiding calcium based agents, symptoms significantly improved -12/06: Doing very well on twice daily PPI, will likely need this on discharge -12/07: Has had significant improvement, currently reporting constipation but no upper GI symptoms -12/08: Still some poor p.o. intake, discussed protein shakes/meal supplements ifpatient does not want to eat to try to maintain nutrition -12/09: Started on Remeron to try to improve appetite #Hypertension -Will be holding valsartan/hydrochlorothiazide due to the above -12/04: Continue to hold valsartan/hydrochlorothiazide and monitor blood pressure, can consider alternative agent if necessary but will be careful to avoid hypotension -12/05: Hydralazine as needed if needed, continue to hold ARB and HCTZ -12/06: Patient on hydralazine as needed, would likely need to begin antihypertensive, will plan to do this after patient's procedure pending blood pressures -12/07: Amlodipine started, starting metoprolol as above -12/08: Metoprolol being uptitrated as above -12/09: On metoprolol and amlodipine #L1 compression fracture - Patient scheduled for kyphoplasty Thursday - Denies taking any NSAIDs or pain medications - Supportive care -12/04: Continue pain control and supportive care -12/05: Did advise to cancel kyphoplasty appointment given patient still in the hospital and to hold off on rescheduling until we have more answers and a better idea of discharge -12/06: Will need follow-up with pain management upon discharge -12/07: Due to patient having multiple procedures he has not been able to consistently work with PT, will need PT reeval when able and prior to discharge as patient does not often get out of bed and concerns that he could have some difficulty with mobility -12/08: Did work with PT today, felt generally weak and tired -12/09: Will continue to encourage up to chair and mobilization #Type 2 diabetes mellitus -Glucose checks and sliding scale insulin - Had somewhat low glucose of 59 on presentation - Will decrease long-acting insulin - Holding sitagliptin and metformin -12/04: Glucose has actually remained low, will discontinue long-acting insulin altogether -12/05: Glucose has been more stable overnight, continue to hold long-acting insulin -12/06: Glucose 123 this a.m., hemoglobin A1c 6.4, will need to decrease patient's insulin regimen significantly on discharge to avoid hypoglycemia -12/07: Glucose maintaining in the low 100s, continue current management -12/08: Glucose 96 this a.m., has had fairly poor p.o. intake, continue to encourage increased intake -12/09: A.m. glucose 94 this a.m., started on Remeron to try to improve appetite Chronic medical problems and/or problems not being actively addressed during today's encounter: #Hypothyroidism -Continue Synthroid #DVT ppx: SCDs Claire Mazariegos MD Charges/Coding Visit Charges Inpatient E&M: 21965 Subs Hosp L3 12/09/24 1205 <Electronically signed by Claire Mazariegos MD> Cosigner Signature (if applicable): CC: ~ Signed [facility] Work Phone: 1(126) 158-205010-10-2025 Progress note Author Josette Garrett [facility] Note Date/Time December 09, 2024 1 2:55am [facility] Medical Records Department [address] [place] [address] Progress Note - Hospitalist 12/08/242227 MR#: [id number] Acct: [id number] Name: LINA VARGAS Rep #:[id number] : 1940 84 From: Josette Kwon PCP: Dr. Luna Ashton, DO Status:AD M IN Location: [place] [address] Hospitalist Note Informed of continued increase of oxygen demands, pt now up to 9L [place] and being 90% p.ox. RT asking for consideration of Airvo use. Reviewed CXR obtained earlier this evening and prior documentation of primary. Per nrsg, pt did have documented voids from the 20mg furosemide IV, no change in LS. Additional order placed for furosemide 20mg IV x1 now, ABG and Airvo. HR96, RR20, BP161/80, T98.2f temporal. P.ox up to 92% on 70%FiO2 from Airvo. ABG results: pH 7.51, HCO3 23.6, O2 sat 92%, pCO2 29.6, pO2 57. Update 0030: pulse ox reading 98% on Airvo, urine output for additional 20mg furosemide IV was only 75ml per RN. 12/09/24 0055 <Electronically signed by Josette NUNES> Cosigner Signature (if applicable): CC: ~ Signed [facility] Work Phone: 1(657) 640-599510-10-2025 Radiology Diagnostic study [facility]10-09-2025 Progress note Author Claire Mazariegos [facility] Note Date/Time December 08, 2024 7: 20pm [facility] Medical Records Department [address] [place] [address] Progress Note - Hospitalist 12/08/241916 MR#: [id number] Acct: [id number] Name: LINA VARGAS Rep #:[id number] : 1940 84 From: Claire Mazariegos MD PCP: Dr. Luna Ashton, DO Status:AD M IN Location: [place] [address] Hospitalist Note Notified of pts increased O2 demands, most recent CXR queried some increased edema and he was subsequently dialyzed, today was dialyzed w/ no fluid removed however repeat cxr does appear to have increased edema, official read pending. Lasix 20mg IV x1 ordered, can consider further doses pending response, advised HOB elevated (was laying flat when I was in room this evening but wasn't in distress at that time). Pt hadn't reported any productive cough or infectious symptoms and no fever or elevated WBC to suggest new pneumonia. Also increased metoprolol dose today to help with rate control as pt seems to have increased SOB when rate elevated, was around 90-100 this evening when I evaluated and pt resting comfortably, is still in afib. Echo ordered for the AM after discussingnwith family. 12/08/241919 <Electronically signed by Claire Mazariegos MD> Cosigner Signature (if applicable): CC: ~ Signed [facility] Work Phone: [phone] 775-233310-09-2025 Progress note Author Alyssia Bah [facility] Note Date/Time December 08, 2024 7: 03pm [facility] Medical Records Department [address] [place] [address] Progress Note - Nephrology 12/08/241900 MR#: [id number] Acct: [id number] Name: LINA VARGAS Rep #:[id number] : 1940 84 From: Alyssia goetz MD PCP: Dr. Luna Ashton, DO Status:AD IN Location: [place] [address]- Subjective Subjective was sleepy this am. seen on HD Objective Data Objective Data Vital Signs: Vital Signs Temp Pulse Resp BP Pulse Ox O2 Del Method O2 Flow Rate 98.7 F 104 H 18 148/88 H 92 High Flow 8 12/08/24 18:06 12/08/24 18:06 12/08/24 18:06 12/08/24 18:06 12/08/24 18:53 12/08/24 18:53 12/08/24 18:53 Oxygen Flow Rate (L/min) 8 Oxygen Delivery Method High Flow Weight: 82.4 kg Body Mass Index (BMI) 24.5 Intake & Output: Intake and Output for Last 24 Hours 12/06/24 12/07/24 12/08/24 23:59 23:59 23:59 Intake Total 1797.2 / 2497.2 1365.2 / 1365.2 450.2 / 450.2 Output Total 1302 / 1602 3040 / 3040 250 / 250 Balance 495.2 / 895.2 -1674.8 / -1674.8 200.2 / 200.2 Medical Nutrition Assessment Dietitian: Malnutrition Criteria Met Start: 12/04/24 12:12 Freq: Status: Active Protocol: Document 12/04/24 12:12 SLA (Rec: 12/04/24 12:13 SLA 10..25.7) Nutrition Malnutrition Evidence of Yes Malnutrition Exists Malnutrition (severe Acute Illness/Injury ): Evidenced By Suboptimal Energy Intake (Severe),Weight Loss (Severe) Clinical Problem Acute Disease or Injury Related Malnutrition Etiology related to issues 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 Status Active Problem Recommendation Dietitian Will liberalize diet to Regular w/ glucerna shake tid Recommendations/ at meals - once po intake improves, can adjust to carb Changes controlled diet if indicated. Will continue to follow and monitor for changes in pt nutritional status and make additional rec as indicate. Lab / Micro Data 12/08/24 04:38 12/08/24 04:38 Labs: Laboratory Results - last 24 hr 12/03/24 20:12: Total Protein (PEP) 7.8, Globulin 4.9 H, Urine Total Protein 87.9, Urine Albumin 19.6, U Vnhkb-0-Fgsjdacw 1.5, U Xujib-5-Kmgtbtaw 4.2, U BetaGlobulin 11.1, U Gamma Globulin 63.6, IgG 326 L, IgA 3265 H, IgM 11 L, Immunofixation Screen Comment H, Albumin (OMERO) 2.9, Albumin/Globulin (OMERO) 0.6 L,Puwzl-4-Tbdjbosib OMERO 0.3, Ixwjj-5-Xeuxjseax OMERO 0.7, Beta-Globulins (OMERO) 3.6 H, Gamma Globulins (OMERO) 0.3 L, OMERO M-David Comment:, OMERO Comments Comment, Ur Immunofix PEP Note Comment 12/05/24 05:04: c-ANCA Antibody <1:20, Atypical p-ANCA <1:20, p-ANCA Antibody <1:20, Glomerular Base Memb Ab < 0.2, Complement C3 75 L, Complement C4 25, FreeKappa LC, Quant 23.3 H, Free Lambda LC, Quant 1177.7 H, Free [place]/Lambda Ratio 0.02 L 12/07/24 21:26: POC Glucose 133 H 10/09/25 04:38: WBC 5.0, RBC 1.99 L, Hgb 7.2 L, Hct 20.4 L, MCV 102.5 H, MCH 36.2 H, MCHC 35.3, RDW Std Deviation 44.5 H, RDW Coeff of Scotty 12.0, Plt Count 110 L, MPV 10.0, Sodium 132 L, Potassium 4.1, Chloride 98, Carbon Dioxide 21.1, Anion Gap 13, BUN 71 H, Creatinine 6.19 H, Estim Creat Clear Calc 9.75 L*, Est GFR (MDRD) Non- Af 8 L, BUN/Creatinine Ratio 11.5, Glucose 125 H, Calcium 10.5 12/08/24 06:30: POC Glucose 124 H 12/08/24 11:30: POC Glucose 96 12/08/24 16:27: POC Glucose 110 H Micro: Microbiology 12/03/24 20:38 Urine, Catheterized Urine Culture - Final Culture exhibits no growth. Physical Exam Narrative no obvious distress no JVD s1s2 no murmurs Diminished breath sounds with faint expiratory wheezing. On O2 via nasal cannula abdomen soft, nontender no edema Assessment & Plan Assessment/Plan (1) Hypercalcemia: (2) Acute renal failure: PLAN: Baseline creatinine as of beginning of this year was around 1.4 or so. Admission creatinine more than 9. Monterroso indwelling without much urine output. Renal ultrasound pending Associated hypercalcemia recent spine related issues. Will check serum protein electrophoresis, kappa, lambda light chain assay. I will also send other serologies. He also takes Tums 1 a day due to acid reflux. I am not sure if that is the cause of hypercalcemia as well. So far PTH is suppressed. Continue IV fluids for now. If no significant recovery, may need a kidney biopsy. dw hospitalist 12/05/2024; SCr 8.56 on admission--> SCr 8.79 mg/dL today. Potassium and bicarb acceptable. Calcium 14.6 on admission, 11.5 today (continue holding valsartan/hydrochlorothiazide). Patient on IV fluids. Renal serologies pending. Urine output around 1.5 L yesterday (patient has Monterroso). Blood pressures acceptable. Though urine output has picked up renal function is slowly worsening and reviewed that with patient and his today. Reviewed with them that patient is quite possibly heading towards needing renal replacement therapy. Risks and benefits of dialysis explained. Dialysis in inpatient setting and outpatient setting also explained. Questions were answered. Patient is in agreement with moving forward with renal placement therapy. There is no urgent need for renal placement therapy today as potassiumand bicarb acceptable and volume status appears compensated. He did state he would like to see how his labs look tomorrow but in agreement with starting hemodialysis if necessary. Recommend surgery consult for hemodialysis catheter placement. Discussed nephrology plan with patient and . Discussed nephrology plan with Dr. Mazariegos. Labs ordered for morning. Assessment and planreviewed with Dr. Bah 12/06/2024; serum creatinine about the same today, 8.5 mg/dL, bicarb 20, potassium 4.2. Urine output yesterday 1.2 L. Calcium 10.9 today. Overnight patient developed difficulty breathing with wheezing, now on O2 nasal cannula. Can stop IV fluids. He is to have tunneled hemodialysis catheter placed today then will plan for dialysis afterwards and attempt small amount of fluid removalas patient/blood pressure tolerates. Renal serologies are pending. Discussed with patient today about kidney biopsy, risk and benefit of biopsy. Patient is in agreement with having kidney biopsy. Will place orders. Patient is not on any blood thinners. Continue to monitor for renal recovery. Discussed with case management, arrangements underway for outpatient hemodialysis at [facility] diagnosis DEANGELO. Assessment and plan reviewed with Dr. Bah 2024. Serologies are still pending. Significant protein gap. Hypercalcemia on admission, now better. Recent low back issues. Myeloma is possible. Will plan for kidney biopsy today. Dialysis today, dialysis tomorrow. Discussed with family bedside. 12/08/24. HD today. see orders. SPEP came back positive. K/L ratio skewed. possible myeloma. will call pathology for diagnosis later today. addendum. dw pathology. surprise, no myeloma. dense ATN. 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 needs hematology evaluation. multiple discussions with hospitalist, pathology 12/08/241902 <Electronically signed by Alyssia Bah MD> Cosigner Signature (if applicable): CC: ~ Signed [facility] Work Phone: [phone] Radiology Diagnostic study [facility]10-09-2025 Progress note Author Claire Mazariegos [facility] Note Date/Time December 08, 2024 3: 34pm [facility] Medical Records Department [address] [place] [address] Progress Note - Hospitalist 12/08/24 1519 MR#: [id number] Acct: [id number] Name: LINA VARGAS Rep #:[id number] : 1940 84 From: Claire Mazariegos MD PCP: Dr. Luna Ashton, DO Status:AD M IN Location: [place] [address] Reason for Visit Chief Complaint: N/V, generalized weakness Subjective Subjective Patient was feeling more short of breath this morning, had elevated heart rate but breathing improved with improvement in heart rate and patient temporarily had converted with IV metoprolol. Patient reports just feeling a little rundowntoday, poor appetite, still have trying to have a bowel movement Objective Data Objective Data Vital Signs: Vital Signs Temp Pulse Resp BP Pulse Ox O2 Del Method O2 Flow Rate 98.0 F 110 H 16 176/75 H 90 Nasal Cannula 5 12/08/24 11:38 12/08/24 12:18 12/08/24 11:38 12/08/24 12:18 12/08/24 11:38 12/08/24 12:53 12/08/24 13:25 Oxygen Flow Rate (L/min) 5 Oxygen Delivery Method Nasal Cannula Weight: 82.4 kg Body Mass Index (BMI) 24.5 Intake & Output: Intake and Output for Last 24 Hours 12/06/24 12/07/24 12/08/24 23:59 23:59 23:59 Intake Total 1797.2 / 2497.2 1365.2 / 1365.2 350.2 / 350.2 Output Total 1302 / 1602 3040 / 3040 250 / 250 Balance 495.2 / 895.2 -1674.8 / -1674.8 100.2 / 100.2 Medical Nutrition Assessment Dietitian: Malnutrition Criteria Met Start: 12/04/24 12:12 Freq: Status: Active Protocol: Document 12/04/24 12:12 SLA (Rec: 12/04/24 12:13 SLA 12.09.24.7) Nutrition Malnutrition Evidence of Yes Malnutrition Exists Malnutrition (severe Acute Illness/Injury ): Evidenced By Suboptimal Energy Intake (Severe),Weight Loss (Severe) Clinical Problem Acute Disease or Injury Related Malnutrition Etiology related to issues 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 Status Active Problem Recommendation Dietitian Will liberalize diet to Regular w/ glucerna shake tid Recommendations/ at meals - once po intake improves, can adjust to carb Changes controlled diet if indicated. Will continue to follow and monitor for changes in pt nutritional status and make additional rec as indicate. Lab / Micro Data 12/08/24 04:38 12/08/24 04:38 Labs: Laboratory Results - last 24 hr 12/03/24 20:12: Total Protein (PEP) 7.8, Globulin 4.9 H, Urine Total Protein 87.9, Urine Albumin 19.6, U Vwvjf-5-Bbbemirc 1.5, U Xjoly-8-Wdjyuiks 4.2, U BetaGlobulin 11.1, U Gamma Globulin 63.6, IgG 326 L, IgA 3265 H, IgM 11 L, Immunofixation Screen Comment H, Albumin (OMERO) 2.9, Albumin/Globulin (OMERO) 0.6 L,Sbawp-1-Xjkzkytlu OMERO 0.3, Pfmhu-3-Kcihaccvx OMERO 0.7, Beta-Globulins (OMERO) 3.6 H, Gamma Globulins (OMERO) 0.3 L, OMERO M-David Comment:, OMERO Comments Comment, Ur Immunofix PEP Note Comment 12/05/24 05:04: c-ANCA Antibody <1:20, Atypical p-ANCA <1:20, p-ANCA Antibody <1:20, Glomerular Base Memb Ab < 0.2, Complement C3 75 L, Complement C4 25, FreeKappa LC, Quant 23.3 H, Free Lambda LC, Quant 1177.7 H, Free [place]/Lambda Ratio 0.02 L 12/07/24 16:28: POC Glucose 145 H 12/07/24 21:26: POC Glucose 133 H 12/08/24 04:38: WBC 5.0, RBC 1.99 L, Hgb 7.2 L, Hct 20.4 L, MCV 102.5 H, MCH 36.2 H, MCHC 35.3, RDW Std Deviation 44.5 H, RDW Coeff of Scotty 12.0, Plt Count 110 L, MPV 10.0, Sodium 132 L, Potassium 4.1, Chloride 98, Carbon Dioxide 21.1, Anion Gap 13, BUN 71 H, Creatinine 6.19 H, Estim Creat Clear Calc 9.75 L*, Est GFR (MDRD) Non- Af 8 L, BUN/Creatinine Ratio 11.5, Glucose 125 H, Calcium 10.5 12/08/24 06:30: POC Glucose 124 H 12/08/24 11:30: POC Glucose 96 Micro: Microbiology 12/03/24 20:38 Urine, Catheterized Urine Culture - Final Culture exhibits no growth. Physical Exam Narrative General: Awake and alert, answering questions appropriately HEENT: Atraumatic, normocephalic Eyes: Anicteric, normal conjunctiva, extraocular movements grossly intact Neck: Supple Respiratory: No wheezing, does have some increased respiratory effort again today Cardiovascular: Irregularly irregular, widely variable heart rate GI: Soft, nontender Extremities: No significant peripheral pitting edema Musculoskeletal: Moving all extremities Neuro: No overt focal neurological deficits Skin: No rashes appreciated Psych: Cooperative Assessment & Plan Assessment/Plan (1) Acute renal failure: PLAN: Plan #Acute kidney failure-concern for multiple myeloma -Patient with a creatinine around 1.5 at baseline with most recent value 9 months ago being 1.5 to - Presenting now with a creatinine of 8.56 - Bicarb 19.5 - Patient not hyperkalemic - Vitally stable and not volume overloaded - Patient alert, no seizure activity, confusion, altered mental status - Presently does not seem to have any indications for emergent dialysis - Suspect that patient's nausea and vomiting with very poor p.o. intake on top of continuing to take his valsartan/hydrochlorothiazide caused or largely contributed to his worsening renal failure - Patient reportedly had been urinating at home and even urinated this morning however in the ED unable to urinate and has 280 on bladder scan - Unclear if there has been an obstructive component to this as well given patient's report of urinating okay prior to coming in - Will have Monterroso catheter placed given patient reporting he is unable to urinate in the ED and bladder scan shows 280 - IV fluids - Will check UA given reports of suprapubic discomfort - Check urine studies - Kidney and bladder ultrasound -Check CK - Discussed with nephrology, nephrology consult placed -12/04: Despite sodium and calcium improving, kidney function has remained about the same, BUN this a.m. 112 with a creatinine of 8.49. UA with protein and occult blood, rare bacteria and does not seem UA is indicative of infection. FEUrea is 61.8 suggesting intrinsic renal disease. SPEP and UPEP pending, nephrology consulted, kidney and bladder ultrasound ordered, Monterroso catheter in place, patient has had 1300 output since admission yesterday evening. [place] lambda light chains ordered in addition to protein electrophoresis. Discussed with nephrology. -12/05: BUN 107 with a creatinine slightly worse of 8.79, still making urine, nephrology following, lab workup pending, kidney and bladder ultrasound is ordered and pending -12/06: Kidney and bladder ultrasound normal, kidney function virtually unchangedsince presentation, patient for tunneled dialysis catheter today per nephrology recommendation to begin dialysis, discussed with nephrology, patient also for kidney biopsy tomorrow -12/07: Patient had dialysis today, 2 L taken off and tolerated that well, patient for biopsy today -12/08: Patient's free kappa/lambda ratio 0.02 and SPEP results concerning for possible multiple myeloma. Discussed with Dr. King with hematology/oncology. Case reviewed, given this is suspicious for multiple myeloma it was recommended to get a skeletal survey and a bone marrow biopsy. Discussed with patient family at bedside and patient agreeable. These orders have been placed. Patient will need to follow-up closely with Dr. King nextweek in the office if he is discharged over the weekend though currently unclearwhen patient will be ready for discharge. Renal biopsy pending, did have dialysis again today with no fluid taken off. # Irregular heart beat-A-fib with RVR -12/07: Patient notes he had an ablation 20 years ago for A-fib and has not had aproblem since, on telemetry seems that he was going in and out of a fast rate, looks like it is likely fib but has been unable to be obtained on twelve-lead. Starting patient on metoprolol, first dialysis today as well and holding albuterol treatments, recommendation may have led to or exacerbated underlying A-fib if patient continues to have episodes despite dialysis, metoprolol, and holding albuterol will need to consider risks and benefits of anticoagulation ondischarge -12/08: Patient intermittently with A-fib with RVR, adjusting metoprolol dosing, did convert temporarily with IV metoprolol earlier today, will continue to adjust medications. Did have TSH on presentation that was 0.591 # Shortness of breath suspect secondary to tachycardia -12/08: Patient's shortness of breath seems to worsen with elevated heart rates and improve when he is rate controlled more in sinus rhythm, adjusting metoprolol to achieve better control, TSH within normal limits. Did have chest x-ray on 12/06 that showed possible moderate interstitial pulmonary edema howeverpatient was subsequently dialyzed with 2 L off but did not seem to significantlyimprove respiratory status # Hypercalcemia -Unclear if this is secondary to significant dehydration or if this could be a primary process associated with his renal failure and dehydration - Will hydrate with normal saline - Will check PTH and vitamin D - will check Phos - If no or minimal improvement can consider calcitonin and/or bisphosphonates - Will also check serum and urine protein electrophoresis given high calcium with kidney failure, high total protein and globulin, anemia and recent L1 fracture/bone pain in addition to generalized weakness - Chest x-ray also ordered to evaluate for any possible lesions -12/04: Improving with hydration, patient's Phos is high which is likely secondary to his renal failure, notably vitamin D is within normal limits at 43 and PTH is only 15. Suspect that patient's hypercalcemia is largely due to dehydration in addition to his hydrochlorothiazide in addition to multiple calcium based medications being taken daily for reflux but workup still pending. Protein electrophoresis pending and kappa lambda light chains ordered -12/05: Still slightly elevated at 11.5 but has consistently continued to improve, continue IV fluids and avoiding calcium based agents, continue to hold hydrochlorothiazide -12/06: Calcium within normal limits today -12/07: Calcium remains the same today, continue current management -12/08: Discussed with oncology, if potassium is elevated again would recommend 60 pamidronate #Hyponatremia -Possibly secondary to dehydration but cannot say definitively, patient additionally on hydrochlorothiazide which will be held - Will order serum osmole's - Check urine studies - TSH - Lipid profile - Monitor I's and O's - Trend BMPs -12/04: Patient actually has elevated serum osmolality with an osmolality of 324 but no hyperglycemia or hyperlipidemia therefore suspect this is either due to his kidney failure with uremia or could possibly pseudohyponatremia due to a paraproteinemia +/- HCTZ, serum and urine protein electrophoresis pending as well as kappa lambda light chains. Notably sodium has slowly up trended to 129 with fluids and cessation of HCTZ, will continue present management while further workup underway -12/05: Sodium of 128, seems to have stabilized, do suspect that this is at leastin part due to renal disease with uremia, continue to monitor, continue to hold hydrochlorothiazide -12/06: Hyponatremia continues to remain stable with a sodium of 129, will not resume hydrochlorothiazide on discharge -12/07: Sodium is further improved to 131 today, patient had 2 L removed with dialysis, repeat a.m. -12/08: Sodium 132 today, continues to improve # Macrocytic anemia -12/04: Patient with hemoglobin 10.7 on presentation with no previous baseline seen in our system, this a.m. hemoglobin 7.9 which is significant drop but no evidence of ongoing bleeding, suspect the patient was significantly volume depleted/dehydrated and was hemoconcentrated especially given drop in all 3 celllines. MCV is 98.6, will be ordering B12, iron panel, folate -12/05: Hemoglobin slightly lower today, in part likely due to dilution and blooddraws, 7.2 this a.m.. Folate is technically within normal limits but on the lowside so we will start folic acid but B12 within normal limits, iron and iron saturation within normal limits with elevated ferritin. 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 -12/06: Hemoglobin actually up to 7.7 today, continue to monitor -12/07: No evidence of blood loss, hemoglobin remaining stable, hemoglobin 7.9 today -12/08: Hemoglobin 7.2, has been fluctuating in the sevens, does not appear to have any acute blood loss #GERD -Continue PPI -12/04: Reportedly patient's been having significant reflux symptoms for the pastyear, takes omeprazole at home and has been taking nightly calcium based products for reflux, patient's reflux may be contributing to his nausea, will place on IV PPI twice daily, avoiding calcium based agents -12/05: Patient now on IV PPI every 12, avoiding calcium based agents, symptoms significantly improved -12/06: Doing very well on twice daily PPI, will likely need this on discharge -12/07: Has had significant improvement, currently reporting constipation but no upper GI symptoms -12/08: Still some poor p.o. intake, discussed protein shakes/meal supplements ifpatient does not want to eat to try to maintain nutrition #Hypertension -Will be holding valsartan/hydrochlorothiazide due to the above -12/04: Continue to hold valsartan/hydrochlorothiazide and monitor blood pressure, can consider alternative agent if necessary but will be careful to avoid hypotension -12/05: Hydralazine as needed if needed, continue to hold ARB and HCTZ -12/06: Patient on hydralazine as needed, would likely need to begin antihypertensive, will plan to do this after patient's procedure pending blood pressures -12/07: Amlodipine started, starting metoprolol as above -12/08: Metoprolol being uptitrated as above #L1 compression fracture - Patient scheduled for kyphoplasty Thursday - Denies taking any NSAIDs or pain medications - Supportive care -12/04: Continue pain control and supportive care -12/05: Did advise to cancel kyphoplasty appointment given patient still in the hospital and to hold off on rescheduling until we have more answers and a better idea of discharge -12/06: Will need follow-up with pain management upon discharge -12/07: Due to patient having multiple procedures he has not been able to consistently work with PT, will need PT reeval when able and prior to discharge as patient does not often get out of bed and concerns that he could have some difficulty with mobility -12/08: Did work with PT today, felt generally weak and tired #Type 2 diabetes mellitus -Glucose checks and sliding scale insulin - Had somewhat low glucose of 59 on presentation - Will decrease long-acting insulin - Holding sitagliptin and metformin -12/04: Glucose has actually remained low, will discontinue long-acting insulin altogether -12/05: Glucose has been more stable overnight, continue to hold long-acting insulin -12/06: Glucose 123 this a.m., hemoglobin A1c 6.4, will need to decrease patient's insulin regimen significantly on discharge to avoid hypoglycemia -12/07: Glucose maintaining in the low 100s, continue current management -12/08: Glucose 96 this a.m., has had fairly poor p.o. intake, continue to encourage increased intake Chronic medical problems and/or problems not being actively addressed during today's encounter: #Hypothyroidism -Continue Synthroid #DVT ppx: SCDs Claire Mazariegos MD Time spent in the patient's overall evaluation,decision-making process, review of diagnostic data, adjustment of management, discussion with other providers, nursing nursing and ancillary staff involved in patient's care documentation, [employer]Min[employer] Charges/Coding Visit Charges Inpatient E&M: 48604 Subs Hosp L3 12/08/24 1534 <Electronically signed by Claire Mazariegos MD> Cosigner Signature (if applicable): CC: ~ Signed [facility] Work Phone: 1(403) 874-641210-08-2025 Progress note Author Susan Medina [facility] Note Date/Time 2024 3: 17pm [facility] Medical Records Department [address] [place] [address] Progress Note - Surgery 2446 MR#: [id number] Acct: [id number] Name: LINA VARGAS Rep #:[id number] : [id number] 84 From: Susan LEROY PA-C PCP: Dr. Luna Ashton, DO Status:AD M IN Location: [place] [address] Subjective Subjective Patient evaluated resting comfortably in bed. He is currently on dialysis. He denies any pain at the catheter site. Objective Data Objective Data Vital Signs: Vital Signs Temp Pulse Resp BP Pulse Ox O2 Del Method O2 Flow Rate 97.4 F L 123 H 24 H 184/84 H 3 Nasal Cannula 3 12/07/24 05:55 12/07/24 05:55 12/07/24 05:55 12/07/24 05:55 12/07/24 06:00 12/07/24 06:00 12/07/24 05:55 Oxygen Flow Rate (L/min) 3 Oxygen Delivery Method Nasal Cannula Weight: 186 lb 8.177 oz Body Mass Index (BMI) 25.2 Intake & Output: Intake and Output for Last 24 Hours 12/05/24 12/06/24 12/07/24 23:59 23:59 23:59 Intake Total 2953.95 / 2953.95 1797.2 / 2497.2 700 / 700 Output Total 1200 / 1600 1302 / 1602 300 / 300 Balance 1753.95 / 1353.95 495.2 / 895.2 400 / 400 Medical Nutrition Assessment Dietitian: Malnutrition Criteria Met Start: 12/04/24 12:12 Freq: Status: Active Protocol: Document 12/04/24 12:12 SLA (Rec: 12/04/24 12:13 SLA 10..25.7) Nutrition Malnutrition Evidence of Yes Malnutrition Exists Malnutrition (severe Acute Illness/Injury ): Evidenced By Suboptimal Energy Intake (Severe),Weight Loss (Severe) Clinical Problem Acute Disease or Injury Related Malnutrition Etiology related to issues 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 Status Active Problem Recommendation Dietitian Will liberalize diet to Regular w/ glucerna shake tid Recommendations/ at meals - once po intake improves, can adjust to carb Changes controlled diet if indicated. Will continue to follow and monitor for changes in pt nutritional status and make additional rec as indicate. Lab / Micro Data 12/07/24 04:14 12/07/24 04:14 Labs: Laboratory Results - last 24 hr 12/05/24 05:04: Double Strand DNA Ab <1 12/06/24 13:39: PT 14.8, INR 1.1, APTT 27.2 12/06/24 17:29: POC Glucose 87 12/06/24 21:26: POC Glucose 134 H 12/07/24 04:14: WBC 7.3, RBC 2.12 L, Hgb 7.9 L, Hct 21.6 L, MCV 101.9 H, MCH 37.3 H, MCHC 36.6 H, RDW Std Deviation 43.4, RDW Coeff of Scotty 11.8, Plt Count 127 L, MPV 10.1, Sodium 131 L, Potassium 4.5, Chloride 97 L, Carbon Dioxide 19.1L, Anion Gap 15, BUN 101 H*, Creatinine 8.81 H*, Estim Creat Clear Calc 6.85 L*,Est GFR (MDRD) Non-Af 5 L, BUN/Creatinine Ratio 11.5, Glucose 111 H, Calcium 10.9, Phosphorus 5.0 H, Magnesium 3.6 H, Total Bilirubin 0.37, AST 21, ALT 13, Alkaline Phosphatase 78, Total Protein 7.7, Albumin 2.8 L, Globulin 4.9 H, Albumin/Globulin Ratio 0.6 L 12/07/24 06:50: POC Glucose 135 H Micro: Microbiology 12/03/24 20:38 Urine, Catheterized Urine Culture - Final Culture exhibits no growth. Radiography Diagnostic Testing: Radiology Impression Chest X-Ray 12/06/24 15:50 IMPRESSION: A right jugular central venous catheter seen, with tip projecting near the expected junction of the SVC and right atrium. At least moderate interstitial pulmonary edema is seen. Also, probable patchy bilateral areas airspace disease are seen, [id number]-right. While this most likely represents pulmonary edema, cannot exclude the presence of pneumonitis side. Although no definite right pleural effusion is seen, a moderate left pleural effusion is noted. No pneumothorax is noted. The cardiomediastinal silhouette is stable, without evidence of cardiomegaly. Reading Location: [place] [address] Physical Exam Chest Chest Narrative: Right chest- dialysis catheter intact. No oozing noted. Assessment & Plan Assessment/Plan (1) Acute renal failure: PLAN: I am following this patient in conjunction with Dr. Shin in Dr. Evans's absence. He will independently evaluate this patient. Dialysis catheter intact and working well We will follow as needed at this time Please contact our service if needed in the future Thank you for allowing us to participate in this patient's care Charges/Coding Visit Charges Inpatient E&M: 98030 Subs Hosp L1 (post-op; no charge) 12/07/24 1011 <Electronically signed by Susan LEROY PA-C> Cosigner Signature (if applicable): CC: ~ Signed ADDENDUM by Dr. Victor M Shin MD on 12/07/24 at 1517 Addendum Patient seen and evaluated on rounds this afternoon. Agree with assessment and plan as outlined by MARIAA Solorio Patient is a an 84-year-old male who underwent tunneled dialysis catheter placement on the right side by Dr. Evans. It sounds as though he tolerated dialysis well without any issues or problems related to the catheter. The insertion site appears clean dry and intact. No signs of erythema swelling etc. Will plan to sign off. Please call if any questions or concerns arise 12/07/24 1517<Electronically signed by Victor M Shin MD> Cosigner Signature (if applicable): cc: ~* Signed [facility] Work Phone: 1(522) 343-691210-08-2025 Progress note Author Alyssia Bah [facility] Note Date/Time 2024 12 :32pm [facility] Medical Records Department [address] [place] [address] Progress Note - Nephrology 12/07/24 1231 MR#: [id number] Acct: [id number] Name: LINA VARGAS Rep #:[id number] : 1940 84 From: Alyssia goetz MD PCP: Dr. Luna Ashton, DO Status:AD IN Location: [place] [address] Subjective Subjective HD today Objective Data Objective Data Vital Signs: Vital Signs Temp Pulse Resp BP Pulse Ox O2 Del Method O2 Flow Rate 98.2 F 101 H 18 149/88 H 92 Nasal Cannula 2 12/07/24 11:00 12/07/24 11:11 12/07/24 11:00 12/07/24 11:11 12/07/24 11:00 12/07/24 11:00 12/07/24 11:00 Oxygen Flow Rate (L/min) 2 Oxygen Delivery Method Nasal Cannula Weight: 82.6 kg Body Mass Index (BMI) 24.7 Intake & Output: Intake and Output for Last 24 Hours 12/05/24 12/06/24 12/07/24 23:59 23:59 23:59 Intake Total 2953.95 / 2953.95 1797.2 / 2497.2 805.2 / 805.2 Output Total 1200 / 1600 1302 / 1602 2340 / 2340 Balance 1753.95 / 1353.95 495.2 / 895.2 -1534.8 / -1534.8 Medical Nutrition Assessment Dietitian: Malnutrition Criteria Met Start: 12/04/24 12:12 Freq: Status: Active Protocol: Document 12/04/24 12:12 SLA (Rec: 12/04/24 12:13 SLA 12.09.24.7) Nutrition Malnutrition Evidence of Yes Malnutrition Exists Malnutrition (severe Acute Illness/Injury ): Evidenced By Suboptimal Energy Intake (Severe),Weight Loss (Severe) Clinical Problem Acute Disease or Injury Related Malnutrition Etiology related to issues 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 Status Active Problem Recommendation Dietitian Will liberalize diet to Regular w/ glucerna shake tid Recommendations/ at meals - once po intake improves, can adjust to carb Changes controlled diet if indicated. Will continue to follow and monitor for changes in pt nutritional status and make additional rec as indicate. Lab / Micro Data 12/07/24 04:14 12/07/24 04:14 Labs: Laboratory Results - last 24 hr 12/05/24 05:04: Double Strand DNA Ab <1, Hep Bs Antigen Nonreactive 12/06/24 13:39: PT 14.8, INR 1.1, APTT 27.2 12/06/24 17:29: POC Glucose 87 12/06/24 21:26: POC Glucose 134 H 12/07/24 04:14: WBC 7.3, RBC 2.12 L, Hgb 7.9 L, Hct 21.6 L, MCV 101.9 H, MCH 37.3 H, MCHC 36.6 H, RDW Std Deviation 43.4, RDW Coeff of Scotty 11.8, Plt Count 127 L, MPV 10.1, Sodium 131 L, Potassium 4.5, Chloride 97 L, Carbon Dioxide 19.1L, Anion Gap 15, BUN 101 H*, Creatinine 8.81 H*, Estim Creat Clear Calc 6.85 L*,Est GFR (MDRD) Non-Af 5 L, BUN/Creatinine Ratio 11.5, Glucose 111 H, Calcium 10.9, Phosphorus 5.0 H, Magnesium 3.6 H, Total Bilirubin 0.37, AST 21, ALT 13, Alkaline Phosphatase 78, Total Protein 7.7, Albumin 2.8 L, Globulin 4.9 H, Albumin/Globulin Ratio 0.6 L 12/07/24 06:50: POC Glucose 135 H Micro: Microbiology 12/03/24 20:38 Urine, Catheterized Urine Culture - Final Culture exhibits no growth. Radiography Diagnostic Testing: Radiology Impression Chest X-Ray 12/06/24 15:50 IMPRESSION: A right jugular central venous catheter seen, with tip projecting near the expected junction of the SVC and right atrium. At least moderate interstitial pulmonary edema is seen. Also, probable patchy bilateral areas airspace disease are seen, [id number]-vrcy-right. While this most likely represents pulmonary edema, cannot exclude the presence of pneumonitis side. Although no definite right pleural effusion is seen, a moderate left pleural effusion is noted. No pneumothorax is noted. The cardiomediastinal silhouette is stable, without evidence of cardiomegaly. Reading Location: [place] [address] Physical Exam Narrative Alert awake oriented x 3 no obvious distress no JVD s1s2 no murmurs Diminished breath sounds with faint expiratory wheezing. On O2 via nasal cannula abdomen soft, nontender no edema Monterroso with clear yellow urine in bag and tubing Assessment & Plan Assessment/Plan (1) Hypercalcemia: (2) Acute renal failure: PLAN: Baseline creatinine as of beginning of this year was around 1.4 or so. Admission creatinine more than 9. Monterroso indwelling without much urine output. Renal ultrasound pending Associated hypercalcemia recent spine related issues. Will check serum protein electrophoresis, kappa, lambda light chain assay. I will also send other serologies. He also takes Tums 1 a day due to acid reflux. I am not sure if that is the cause of hypercalcemia as well. So far PTH is suppressed. Continue IV fluids for now. If no significant recovery, may need a kidney biopsy. dw hospitalist 12/05/2024; SCr 8.56 on admission--> SCr 8.79 mg/dL today. Potassium and bicarb acceptable. Calcium 14.6 on admission, 11.5 today (continue holding valsartan/hydrochlorothiazide). Patient on IV fluids. Renal serologies pending. Urine output around 1.5 L yesterday (patient has Monterroso). Blood pressures acceptable. Though urine output has picked up renal function is slowly worsening and reviewed that with patient and his today. Reviewed with them that patient is quite possibly heading towards needing renal replacement therapy. Risks and benefits of dialysis explained. Dialysis in inpatient setting and outpatient setting also explained. Questions were answered. Patient is in agreement with moving forward with renal placement therapy. There is no urgent need for renal placement therapy today as potassiumand bicarb acceptable and volume status appears compensated. He did state he would like to see how his labs look tomorrow but in agreement with starting hemodialysis if necessary. Recommend surgery consult for hemodialysis catheter placement. Discussed nephrology plan with patient and . Discussed nephrology plan with Dr. Mazariegos. Labs ordered for morning. Assessment and planreviewed with Dr. Bah 12/06/2024; serum creatinine about the same today, 8.5 mg/dL, bicarb 20, potassium 4.2. Urine output yesterday 1.2 L. Calcium 10.9 today. Overnight patient developed difficulty breathing with wheezing, now on O2 nasal cannula. Can stop IV fluids. He is to have tunneled hemodialysis catheter placed today then will plan for dialysis afterwards and attempt small amount of fluid removalas patient/blood pressure tolerates. Renal serologies are pending. Discussed with patient today about kidney biopsy, risk and benefit of biopsy. Patient is in agreement with having kidney biopsy. Will place orders. Patient is not on any blood thinners. Continue to monitor for renal recovery. Discussed with case management, arrangements underway for outpatient hemodialysis at [facility] diagnosis DEANG[facility]O. Assessment and plan reviewed with Dr. Bah 2024. Serologies are still pending. Significant protein gap. Hypercalcemia on admission, now better. Recent low back issues. Myeloma is possible. Will plan for kidney biopsy today. Dialysis today, dialysis tomorrow. Discussed with family bedside. 12/07/24 1232 <Electronically signed by Alyssia Bah MD> Cosigner Signature (if applicable): CC: ~ Signed [facility] Work Phone: 1(744) 818-803410-08-2025 Radiology Diagnostic study [facility]10-08-2025 Progress note Author Claire Mazariegos [facility] Note Date/Time 2024 10 :53am [facility] Medical Records Department [address] [place] [address] Progress Note - Hospitalist 12/07/24 1048 MR#: [id number] Acct: [id number] Name: LINA VARGAS Rep #:[id number] : 1940 84 From: Claire Mazariegos MD PCP: Dr. Luna Ashton, DO Status:AD M IN Location: [place] [id number] Reason for Visit Chief Complaint: N/V, generalized weakness Subjective Subjective Laying down, finishing up dialysis, tolerated this well, reports he has not had a bowel movement in several days but denies any nausea. Denies any increased shortness of breath at time of exam or new cough, reports some sneezing when O2 is in place Objective Data Objective Data Vital Signs: Vital Signs Temp Pulse Resp BP Pulse Ox O2 Del Method O2 Flow Rate 98 F 88 14 159/91 H 96 Nasal Cannula 3 12/07/24 10:20 12/07/24 10:20 12/07/24 10:20 12/07/24 10:20 12/07/24 10:20 12/07/24 10:20 12/07/24 10:20 Oxygen Flow Rate (L/min) 3 Oxygen Delivery Method Nasal Cannula Weight: 82.6 kg Body Mass Index (BMI) 24.7 Intake & Output: Intake and Output for Last 24 Hours 12/05/24 12/06/24 12/07/24 23:59 23:59 23:59 Intake Total 2953.95 / 2953.95 1797.2 / 2497.2 700 / 700 Output Total 1200 / 1600 1302 / 1602 2340 / 2340 Balance 1753.95 / 1353.95 495.2 / 895.2 -1640 / -1640 Medical Nutrition Assessment Dietitian: Malnutrition Criteria Met Start: 12/04/24 12:12 Freq: Status: Active Protocol: Document 12/04/24 12:12 SLA (Rec: 12/04/24 12:13 SLA 10.7) Nutrition Malnutrition Evidence of Yes Malnutrition Exists Malnutrition (severe Acute Illness/Injury ): Evidenced By Suboptimal Energy Intake (Severe),Weight Loss (Severe) Clinical Problem Acute Disease or Injury Related Malnutrition Etiology related to issues 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 Status Active Problem Recommendation Dietitian Will liberalize diet to Regular w/ glucerna shake tid Recommendations/ at meals - once po intake improves, can adjust to carb Changes controlled diet if indicated. Will continue to follow and monitor for changes in pt nutritional status and make additional rec as indicate. Lab / Micro Data 12/07/24 04:14 12/07/24 04:14 Labs: Laboratory Results - last 24 hr 12/05/24 05:04: Double Strand DNA Ab <1, Hep Bs Antigen Nonreactive 12/06/24 13:39: PT 14.8, INR 1.1, APTT 27.2 12/06/24 17:29: POC Glucose 87 12/06/24 21:26: POC Glucose 134 H 12/07/24 04:14: WBC 7.3, RBC 2.12 L, Hgb 7.9 L, Hct 21.6 L, MCV 101.9 H, MCH 37.3 H, MCHC 36.6 H, RDW Std Deviation 43.4, RDW Coeff of Scotty 11.8, Plt Count 127 L, MPV 10.1, Sodium 131 L, Potassium 4.5, Chloride 97 L, Carbon Dioxide 19.1L, Anion Gap 15, BUN 101 H*, Creatinine 8.81 H*, Estim Creat Clear Calc 6.85 L*,Est GFR (MDRD) Non-Af 5 L, BUN/Creatinine Ratio 11.5, Glucose 111 H, Calcium 10.9, Phosphorus 5.0 H, Magnesium 3.6 H, Total Bilirubin 0.37, AST 21, ALT 13, Alkaline Phosphatase 78, Total Protein 7.7, Albumin 2.8 L, Globulin 4.9 H, Albumin/Globulin Ratio 0.6 L 12/07/24 06:50: POC Glucose 135 H Micro: Microbiology 12/03/24 20:38 Urine, Catheterized Urine Culture - Final Culture exhibits no growth. Radiography Diagnostic Testing: Radiology Impression Chest X-Ray 12/06/24 15:50 IMPRESSION: A right jugular central venous catheter seen, with tip projecting near the expected junction of the SVC and right atrium. At least moderate interstitial pulmonary edema is seen. Also, probable patchy bilateral areas airspace disease are seen, [id number]-soon-right. While this most likely represents pulmonary edema, cannot exclude the presence of pneumonitis side. Although no definite right pleural effusion is seen, a moderate left pleural effusion is noted. No pneumothorax is noted. The cardiomediastinal silhouette is stable, without evidence of cardiomegaly. Reading Location: [id number] Physical Exam Narrative General: Awake and alert, answering questions appropriately HEENT: Atraumatic, normocephalic Eyes: Anicteric, normal conjunctiva, extraocular movements grossly intact Neck: Supple Respiratory: No overt wheezes or rhonchi, slight crackles at left lung base, no increased respiratory effort Cardiovascular: Regular rate, seems to intermittently being having bouts of irregular heart rate and rhythm GI: Soft, nontender Extremities: No edema Musculoskeletal: Moving all extremities Neuro: No overt focal neurological deficits Skin: No rashes appreciated Psych: Cooperative Assessment & Plan Assessment/Plan (1) Acute renal failure: PLAN: Plan #Acute kidney failure -Patient with a creatinine around 1.5 at baseline with most recent value 9 months ago being 1.5 to - Presenting now with a creatinine of 8.56 - Bicarb 19.5 - Patient not hyperkalemic - Vitally stable and not volume overloaded - Patient alert, no seizure activity, confusion, altered mental status - Presently does not seem to have any indications for emergent dialysis - Suspect that patient's nausea and vomiting with very poor p.o. intake on top of continuing to take his valsartan/hydrochlorothiazide caused or largely contributed to his worsening renal failure - Patient reportedly had been urinating at home and even urinated this morning however in the ED unable to urinate and has 280 on bladder scan - Unclear if there has been an obstructive component to this as well given patient's report of urinating okay prior to coming in - Will have Monterroso catheter placed given patient reporting he is unable to urinate in the ED and bladder scan shows 280 - IV fluids - Will check UA given reports of suprapubic discomfort - Check urine studies - Kidney and bladder ultrasound -Check CK - Discussed with nephrology, nephrology consult placed -12/04: Despite sodium and calcium improving, kidney function has remained about the same, BUN this a.m. 112 with a creatinine of 8.49. UA with protein and occult blood, rare bacteria and does not seem UA is indicative of infection. FEUrea is 61.8 suggesting intrinsic renal disease. SPEP and UPEP pending, nephrology consulted, kidney and bladder ultrasound ordered, Monterroso catheter in place, patient has had 1300 output since admission yesterday evening. [place] lambda light chains ordered in addition to protein electrophoresis. Discussed with nephrology. -12/05: BUN 107 with a creatinine slightly worse of 8.79, still making urine, nephrology following, lab workup pending, kidney and bladder ultrasound is ordered and pending -12/06: Kidney and bladder ultrasound normal, kidney function virtually unchangedsince presentation, patient for tunneled dialysis catheter today per nephrology recommendation to begin dialysis, discussed with nephrology, patient also for kidney biopsy tomorrow -12/07: Patient had dialysis today, 2 L taken off and tolerated that well, patient for biopsy today # Irregular heart beat -12/07: Patient notes he had an ablation 20 years ago for A-fib and has not had aproblem since, on telemetry seems that he was going in and out of a fast rate, looks like it is likely fib but has been unable to be obtained on twelve-lead. Starting patient on metoprolol, first dialysis today as well and holding albuterol treatments, recommendation may have led to or exacerbated underlying A-fib if patient continues to have episodes despite dialysis, metoprolol, and holding albuterol will need to consider risks and benefits of anticoagulation ondischarge # Hypercalcemia -Unclear if this is secondary to significant dehydration or if this could be a primary process associated with his renal failure and dehydration - Will hydrate with normal saline - Will check PTH and vitamin D - will check Phos - If no or minimal improvement can consider calcitonin and/or bisphosphonates - Will also check serum and urine protein electrophoresis given high calcium with kidney failure, high total protein and globulin, anemia and recent L1 fracture/bone pain in addition to generalized weakness - Chest x-ray also ordered to evaluate for any possible lesions -12/04: Improving with hydration, patient's Phos is high which is likely secondary to his renal failure, notably vitamin D is within normal limits at 43 and PTH is only 15. Suspect that patient's hypercalcemia is largely due to dehydration in addition to his hydrochlorothiazide in addition to multiple calcium based medications being taken daily for reflux but workup still pending. Protein electrophoresis pending and kappa lambda light chains ordered -12/05: Still slightly elevated at 11.5 but has consistently continued to improve, continue IV fluids and avoiding calcium based agents, continue to hold hydrochlorothiazide -12/06: Calcium within normal limits today -12/07: Calcium remains the same today, continue current management #Hyponatremia -Possibly secondary to dehydration but cannot say definitively, patient additionally on hydrochlorothiazide which will be held - Will order serum osmole's - Check urine studies - TSH - Lipid profile - Monitor I's and O's - Trend BMPs -12/04: Patient actually has elevated serum osmolality with an osmolality of 324 but no hyperglycemia or hyperlipidemia therefore suspect this is either due to his kidney failure with uremia or could possibly pseudohyponatremia due to a paraproteinemia +/- HCTZ, serum and urine protein electrophoresis pending as well as kappa lambda light chains. Notably sodium has slowly up trended to 129 with fluids and cessation of HCTZ, will continue present management while further workup underway -12/05: Sodium of 128, seems to have stabilized, do suspect that this is at leastin part due to renal disease with uremia, continue to monitor, continue to hold hydrochlorothiazide -12/06: Hyponatremia continues to remain stable with a sodium of 129, will not resume hydrochlorothiazide on discharge -12/07: Sodium is further improved to 131 today, patient had 2 L removed with dialysis, repeat a.m. # Macrocytic anemia -12/04: Patient with hemoglobin 10.7 on presentation with no previous baseline seen in our system, this a.m. hemoglobin 7.9 which is significant drop but no evidence of ongoing bleeding, suspect the patient was significantly volume depleted/dehydrated and was hemoconcentrated especially given drop in all 3 celllines. MCV is 98.6, will be ordering B12, iron panel, folate -12/05: Hemoglobin slightly lower today, in part likely due to dilution and blooddraws, 7.2 this a.m.. Folate is technically within normal limits but on the lowside so we will start folic acid but B12 within normal limits, iron and iron saturation within normal limits with elevated ferritin. 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 -12/06: Hemoglobin actually up to 7.7 today, continue to monitor -12/07: No evidence of blood loss, hemoglobin remaining stable, hemoglobin 7.9 today #GERD -Continue PPI -12/04: Reportedly patient's been having significant reflux symptoms for the pastyear, takes omeprazole at home and has been taking nightly calcium based products for reflux, patient's reflux may be contributing to his nausea, will place on IV PPI twice daily, avoiding calcium based agents -12/05: Patient now on IV PPI every 12, avoiding calcium based agents, symptoms significantly improved -12/06: Doing very well on twice daily PPI, will likely need this on discharge -12/07: Has had significant improvement, currently reporting constipation but no upper GI symptoms #Hypertension -Will be holding valsartan/hydrochlorothiazide due to the above -12/04: Continue to hold valsartan/hydrochlorothiazide and monitor blood pressure, can consider alternative agent if necessary but will be careful to avoid hypotension -12/05: Hydralazine as needed if needed, continue to hold ARB and HCTZ -12/06: Patient on hydralazine as needed, would likely need to begin antihypertensive, will plan to do this after patient's procedure pending blood pressures -12/07: Amlodipine started, starting metoprolol as above #L1 compression fracture - Patient scheduled for kyphoplasty Thursday - Denies taking any NSAIDs or pain medications - Supportive care -12/04: Continue pain control and supportive care -12/05: Did advise to cancel kyphoplasty appointment given patient still in the hospital and to hold off on rescheduling until we have more answers and a better idea of discharge -12/06: Will need follow-up with pain management upon discharge -12/07: Due to patient having multiple procedures he has not been able to consistently work with PT, will need PT reeval when able and prior to discharge as patient does not often get out of bed and concerns that he could have some difficulty with mobility #Type 2 diabetes mellitus -Glucose checks and sliding scale insulin - Had somewhat low glucose of 59 on presentation - Will decrease long-acting insulin - Holding sitagliptin and metformin -12/04: Glucose has actually remained low, will discontinue long-acting insulin altogether -12/05: Glucose has been more stable overnight, continue to hold long-acting insulin -12/06: Glucose 123 this a.m., hemoglobin A1c 6.4, will need to decrease patient's insulin regimen significantly on discharge to avoid hypoglycemia -12/07: Glucose maintaining in the low 100s, continue current management Chronic medical problems and/or problems not being actively addressed during today's encounter: #Hypothyroidism -Continue Synthroid #DVT ppx: SCDs Claire Mazariegos MD Charges/Coding Visit Charges Inpatient E&M: 29434 Subs Hosp L2 12/07/24 1058 <Electronically signed by Claire Mazariegos MD> Cosigner Signature (if applicable): CC: ~ Signed [facility] Work Phone: 1(699) 841-448010-07-2025 Procedure [facility] 12-06-2024 Consult note Author Chris Machado [facility] Note Date/Time December 06, 2024 4: 24pm [facility] Medical Records Department [address] [place] [address] Anesthesia Postop Eval II 12/06/24 1623 MR#: [id number] Acct: [id number] Name: LINA VARGAS Rep #:[id number] : 1940 83 From: Chris Machado MD PCP: Dr. Luna Ashton, DO Status:AD M IN Y Race: C Location: [place] [address] 4-1 Anesthesia Postop Eval I Sum Postop Eval Completion status Anesthesia document: Postop Eval 1 completed: Yes Anesthesia Postop Eval I Summary Anesthesia Postop Eval I Summary: Anesthesia Postop Eval I: Assessment Summary Airway patent Yes 12/06/24 15:35 FIELD MARKETING LEAD.TNES Spontaneous unlabored Yes 12/06/24 15:35 FIELD MARKETING LEAD.TNES respirations Mental status nausea No 12/06/24 15:35 FIELD MARKETING LEAD.TNES Vomiting No 12/06/24 15:35 FIELD MARKETING LEAD.TNES Anesthesia Postop Eval I: Fluid Summary Crystalloid volume administer 200 12/06/24 15:35 FIELD MARKETING LEAD.TNES (ml) Colloids volume administered ( ml) Blood Product volume administered (ml) Total IV fluid infused 200 12/06/24 15:35 FIELD MARKETING LEAD.TNES Anesthesia Postop Eval I: Summary Notes Anesthesia Complication No 12/06/24 15:35 FIELD MARKETING LEAD.TNES Anesthesia Complication Comment: Post-operative progress note Anesthesia: Postop Eval II Evaluation Mental status: Awake Pain Level: 1 nausea: No Vomiting: No 12/06/24 1624 <Electronically signed by Chris Machado MD > Date _ Chris Machado MD Cosigner Signature: Date CC: ~ Signed [facility] Work Phone: 1(580) [phone] Consult note Author Robbie Torres [facility] Note Date/Time December 06, 2024 3: 35pm [facility] Medical Records Department [address] [place] [address] Anesthesia Postop Eval I 12/06/24 1535 MR#: [id number] Acct: [id number] Name: LINA VARGAS Rep #:[id number] : 1940 83 From: Robbie SILVESTRE PCP: Dr. Luna Ashton, DO Status:AD M IN Y Race: C Location: [place] [address] 05-31 Anesthesia: Postop Eval I Current Vital Signs Temperature: 98.2 F Pulse Rate: 87 Blood Pressure: 109/54 Respiratory Rate: 16 Pulse Ox: 94 Assessment Airway patent: Yes Spontaneous unlabored respirations: Yes nausea: No Vomiting: No Anesthesia Complication: No Fluid Hydration Crystalloid volume administer (ml): 200 Total IV fluid infused: 200 Progress Note Anesthesia document: Postop Eval 1 completed: Yes 12/06/241534 <Electronically signed by Robbie Torres CRNA> Date _ Robbie Torres CRNA Cosigner Signature: Date CC: ~ Signed [facility] Work Phone: 1(573) 347-548410-07-2025 Radiology Diagnostic study [facility]10-07-2025 Consult note Author Chris Machado [facility] Note Date/Time December 06, 2024 12 :26pm [facility] Medical Records Department [address] [place] [address] Pre-Anesthesia Evaluation 12/06/24 1225 MR#: [id number] Acct: [id number] Name: LINA VARGAS Rep #:[id number] : 1940 83 From: Chris Machado MD PCP: Dr. Luna Ashton, DO Status:AD M IN Y Race: C Location: [place] [address] 4-1 ASA Classification* ASA Classification ASA Classification: 4 Assessment & Plan Anesthesia* Anesthesia Assessment Anesthesia Assessment: Discussed sedation and/or anesthesia options, risks, benefits, and alternatives with patient/parents/legal guardian/POA. Questions invited. The patient/parents/legal guardian/POA seems to understand and agrees to proceedwith anesthesia plan. Reviewed the physical assessment, medical history, allergy history and patient home medications list prior to surgery/procedure/anesthetic and documented any changes. Performed airway and anesthesia risk assessments. Anesthesia Type Anesthesia Type: MAC Anesthesia Focused Assessment* Temperature: 98.4 F Pulse Rate: 96 Blood Pressure: 181/87 Respiratory Rate: 18 Pulse Ox: 95 Oxygen Flow Rate (L/min): 2 Airway Assessment Mouth opens: >3 cm Mallampati Score: II Labs Anesthesia Preop lab: CBC WBC, (4.4-11.0) 5.9 K/mm3 Today, 04:35 RBC, (4.6-6.2) 2.15 M/mm3 L Today, 04:35 Hgb, (13.0-16.5) 7.7 g/dL L Today, 04:35 Hct, (40-54) 21.7 % L Today, 04:35 Plt Count, (150-450) 134 K/mm3 L Today, 04:35 CHEMISTRY Potassium, (3.3-5.1) 4.2 mmol/L Today, 04:35 Sodium, (133-145) 129 mmol/L L Today, 04:35 Magnesium, (1.5-2.2) 5.4 mg/dL H* 12/03/24, 14:24 Phosphorus, (2.7-4.5) 5.6 mg/dL H 12/03/24, 14:24 BUN, (4-19) 104 mg/dL H* Today, 04:35 Creatinine, (0.70-1.20) 8.50 mg/dL H* Today, 04:35 Glucose, (70-99) 132 mg/dL H Today, 04:35 POC Glucose, (74-106) 123 mg/dL H Today, 06:16 TSH, (0.300-4.200) 0.591 uIU/mL 12/03/24, 14:24 COAG Pre-Assessment Diagnosis/Proposed Procedure Planned Operative Procedure(s): Insertion hemodialysis catheter placement. 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 When Was Last Pacemaker Check QUESTION #4 FULL TEXT: You/Your Family Experience fever (hyperthermia) with Anesthesia Last Oral Intake Last Oral intake: Last Oral Intake NPO since 00:00 12/05/24 19:55 Meds taken in AM with sips of No 12/05/24 19:55 water? Meds patient instructed to take am of surgery PONV PONV - archeology faculty member: PONV - archeology faculty member Female HX of Motion Sickness HX of N/V After Surgery Non-Smoker Duration of Surgery greater than 60 minutes Number of Risk Factors PONV Score Height & Weight Height & Weight: Anesthesia: Height & Weight Height 6 ft 0.05 in 12/05/24 19:55 Weight: 84.1 kg 12/06/24 03:12 Body Mass Index (BMI) 25.1 12/06/24 03:12 Respiratory Assessment Respiratory Assessment - archeology faculty member: Respiratory Tract Infection Hx - archeology faculty member Hx Respiratory Tract Infection No 12/05/24 19:55 STOP Sleep Apnea STOP Sleep Apnea - archeology faculty member: STOP Sleep Apnea - archeology faculty member Hx Hypertension Yes 12/05/24 11:04 Hx Sleep Apnea No 12/03/24 17:47 CPAP BIPAP Do you snore loudly (louder Yes 12/03/24 17:47 than talking or can be heard Do you often feel tired/ No 12/03/24 17:47 fatigued/ sleepy during daytime? Has anyone observed you stop No 12/03/24 17:47 breathing during sleep? STOP Results Positive 12/03/24 17:47 QUESTION #5 FULL TEXT : Do you snore loudly (louder than talking or can be heard through closed doors)? 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 Specify any problems Hx of Preganancy in last 3 N/A 12/03/24 17:47 Months Nurse Filling Out Transfusion MEMMONS 12/03/24 17:47 & Questions: Date: 12/03/24 12/03/24 17:47 Time: 18:43 12/03/24 17:47 Patient unable to answer at this time (ie. 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 INHALATION 2.5 mg Q2H PRN PRN Administration SOB &/OR WHEEZING Atorvastatin Calcium 20 mg 12/03/24 18:00 12/05/24 21:37 Atorvastatin Calcium 20 Mg Tablet PO 20 mg QHS YAMIL Administration Glucagon 1 mg 12/03/24 17:47 Glucagon 1 Mg/Ml Syringe IM X1 PRN HYPOGLYCEMIA Protocol Hydralazine HCl 5 mg 12/03/24 17:47 Hydralazine 20 Mg/Ml Vial IV Q8H PRN PRN prn SBP >185 Protocol Dextrose 250 mls @ 0 mls/hr 12/03/24 17:47 12/04/24 13:29 Dextrose 10%-Water IV Infused .Q0M PRN Infusion HYPOGLYCEMIA Protocol As Directed Sodium Chloride 250 mls @ 15 mls/hr 12/03/24 18:33 IV .[id number] PRN Saline Flush Sodium Chloride 250 mls @ 15 mls/hr 12/03/24 18:33 IV .[id number] PRN Additional IVPB Infusion Pantoprazole Sodium 40 mg/ 100 mls @ 300 mls/hr 12/04/24 22:00 12/06/24 10:51 Sodium Chloride IV Infused Q12 YAMIL Infusion Folic Acid 1 mg/ Sodium 50.2 mls @ 200 mls/hr 12/05/24 10:00 12/06/24 11:16 Chloride IV Infused DAILY YAMIL Infusion Desmopressin Acetate 20 mcg/ 55 mls @ 200 mls/hr 12/06/24 11:56 Sodium Chloride IV 12/06/24 12:12 X1 ONE Sodium Chloride 500 mls @ 0 mls/hr 12/06/24 12:15 IV .Q0M YAMIL KVO Insulin Human Lispro 0 unit 12/03/24 22:00 12/06/24 12:24 Insulin Lispro 100 Unit/Ml Insuln.Pen SC Not Given ACHS [facility] Protocol Levothyroxine Sodium 100 mcg 12/04/24 06:00 12/06/24 05:00 Levothyroxine 100 Mcg Tablet PO Not Given DAILY@0600 YAMIL Lidocaine 1 patch 12/04/24 10:00 12/06/24 10:42 Lidocaine 5% Patch TOPICAL 1 patch DAILY YAMIL Administration Protocol Melatonin 10 mg 12/03/24 17:47 12/04/24 23:31 Melatonin 10 Mg Tablet PO 10 mg QHS PRN PRN Administration INSOMNIA Ondansetron HCl 4 mg 12/04/24 12:50 12/06/24 01:45 Ondansetron 4 Mg/2 Ml Vial IV 4 mg Q4H PRN PRN Administration NAUSEA/VOMITING Senna/Docusate Sodium 2 tablet 12/03/24 22:00 12/06/24 10:33 Senna/Docusate Sodium 1 Tablet PO Not Given BID YAMIL Sodium Chloride 10 - 40 ml 12/03/24 18:33 12/06/24 01:45 0.9% Saline Lock 10 Ml Syringe IV 10 ml UD PRN Administration SALINE FLUSH PFSH Medical History CKD (chronic kidney disease) stage 1, GFR 90 ml/min or greater Trigger finger of right hand Apical variant hypertrophic cardiomyopathy HLD (hyperlipidemia) Shingles (herpes zoster) polyneuropathy Acute urticaria GERD (gastroesophageal reflux disease) Hypothyroidism Home Medications ?Medication ?Instructions ?Recorded ?Last Taken ?Type blood sugar diagnostic (True #100 ea 02/11/23 Unknown Rx Metrix Glucose Test Strip) blood-glucose meter #1 ea 02/11/23 Unknown Rx atorvastatin 20 mg tablet 20 mg PO QDAY #90 tabs 09/2912/02/24 Rx lancets 30 gauge (Unilet Lancets) #100 ea 09/29/24 Unk nown Rx levothyroxine 100 mcg tablet 100 mcg PO DAILY #100 tab s 09/29/24 12/03/24 Rx metformin 500 mg tablet,extended 500 mg PO BID #180 ta bs 09/29/24 12/03/24 10:00 Rx release 24 hr omeprazole 20 mg capsule,delayed 20 mg PO DAILY #100 c aps 09/29/24 12/03/24 Rx release pen needle, diabetic 29 gauge x #100 ea 09/29/24 Unkno wn Rx 1/2 (CareFine Pen Needle) sitagliptin phosphate 100 mg 100 mg PO DAILY #100 tabs 09/29/24 12/03/24 Rx tablet (Januvia) valsartan 160 1 tab PO DAILY #90 TABLETS 0 09/29/24 12/03/24 Rx mg-hydrochlorothiazide 12.5 mg tablet ondansetron 4 mg disintegrating 4 mg PO Q8H PRN nausea and 11/29/24 12/02/24 Rx tablet vomiting #14 tabs insulin glargine 100 unit/mL (3 21 unit subcut QHS 06/2412/02/24 History mL) subcutaneous pen (Lantus Solostar U-100 Insulin) magnesium 250 mg tablet 250 mg PO QHS 12/03/2412/02 History Allergy/AdvReac Type Severity Reaction Status Date / Time meloxicam (From Mobic) Allergy Severe unknown Verified 12/03/24 14:09 pentazocine (From Talwin) Allergy Severe unknown Verified 12/03/24 14:09 metaxalone AdvReac Intermediate Nausea Verified 12/03/24 14:09 Family History Father Heart disease Mother CVA (cerebral vascular accident) Hypertension Breast cancer Surgical History History of back surgery History of left knee surgery History of appendectomy History of cardiac cath Social History Smoking Status: Never smoker how long ago did patient quit smokin alcohol intake: never Review of Systems (Anesthesia) ROS Narrative System reviewed and no additional complaints, except as documented. 12/06/24 1226 <Electronically signed by Chris Machado MD > Date _ Chris Machado MD Cosigner Signature: Date CC: ~ Signed [facility] Work Phone: 1(230) 396-181110-07-2025 Progress note Author Sukhdeep Juarez [facility] Note Date/Time December 06, 2024 12 :21pm [facility] Medical Records Department [address] [place] [address] Progress Note - Nephrology 12/05/24 1241 MR#: [id number] Acct: [id number] Name: LINA VARGAS Rep #:[id number] : 1940 83 From: Sukhdeep grier [employer] PCP: Dr. Luna Ashton, DO Status:AD M IN Location: [place] [address] Subjective Subjective Sitting in chair at bedside. No overnight events. States nausea improved. Denies any diarrhea. at bedside. Objective Data Objective Data Vital Signs: Vital Signs Temp Pulse Resp BP Pulse Ox O2 Del Method 97.3 F L 77 18 146/69 H 96 Room Air 12/05/24 09:05 12/05/24 09:05 12/05/24 09:05 12/05/24 09:05 12/05/24 09:05 12/05/24 09:05 Oxygen Delivery Method Room Air Weight: 76.9 kg Body Mass Index (BMI) 23.0 Intake & Output: Intake and Output for Last 24 Hours 12/03/24 12/04/24 12/05/24 23:59 23:59 23:59 Intake Total 2240 / 2240 2390 / 2390 1613.95 / 1613.95 Output Total 800 / 800 1525 / 1525 900 / 900 Balance 1440 / 1440 865 / 865 713.95 / 713.95 Medical Nutrition Assessment Dietitian: Malnutrition Criteria Met Start: 12/04/24 12:12 Freq: Status: Active Protocol: Document 12/04/24 12:12 SLA (Rec: 12/04/24 12:13 SLA 10..25.7) Nutrition Malnutrition Evidence of Yes Malnutrition Exists Malnutrition (severe Acute Illness/Injury ): Evidenced By Suboptimal Energy Intake (Severe),Weight Loss (Severe) Clinical Problem Acute Disease or Injury Related Malnutrition Etiology related to issues 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 Status Active Problem Recommendation Dietitian Will liberalize diet to Regular w/ glucerna shake tid Recommendations/ at meals - once po intake improves, can adjust to carb Changes controlled diet if indicated. Will continue to follow and monitor for changes in pt nutritional status and make additional rec as indicate. Lab / Micro Data 12/05/24 05:04 12/05/24 05:04 Labs: Laboratory Results - last 24 hr 12/04/24 12:42: POC Glucose 81 12/04/24 17:24: POC Glucose 104 12/04/24 21:10: POC Glucose 132 H 12/05/24 05:04: WBC 5.3, RBC 2.03 L, Hgb 7.3 L, Hct 20.6 L, MCV 101.5 H, MCH 36.0 H, MCHC 35.4, RDW Std Deviation 42.8, RDW Coeff of Scotty 11.6, Plt Count 122 L, MPV 10.3, Sodium 128 L, Potassium 4.1, Chloride 95 L, Carbon Dioxide 19.1 L, Anion Gap 14, BUN 107 H*, Creatinine 8.79 H*, Estim Creat Clear Calc 6.93 L*, Est GFR (MDRD) Non- Af 6 L, BUN/Creatinine Ratio 12.2, Glucose 128 H, Calcium 11.5H, Iron 84, TIBC 188 L, Iron Saturation 44.7, Unsaturated IBC 104 L, Ferritin 453 H, Vitamin B12 456, Serum Folate 6.03 12/05/24 06:01: POC Glucose 118 H 12/05/24 11:23: POC Glucose 164 H Micro: Microbiology 12/03/24 20:38 Urine, Catheterized Urine Culture - Preliminary Culture exhibits no growth. Radiography Diagnostic Testing: Radiology Impression Renal Ultrasound 12/05/24 07:00 IMPRESSION: No acute abnormality. No obstruction Reading Location: [facility] Physical Exam Narrative Alert awake oriented x 3 no obvious distress no JVD s1s2 no murmurs lungs clear abdomen soft, nontender no edema [place] with clear yellow urine in bag and tubing Assessment & Plan Assessment/Plan (1) Hypercalcemia: (2) Acute renal failure: PLAN: Baseline creatinine as of beginning of this year was around 1.4 or so. Admission creatinine more than 9. Monterroso indwelling without much urine output. Renal ultrasound pending Associated hypercalcemia recent spine related issues. Will check serum protein electrophoresis, kappa, lambda light chain assay. I will also send other serologies. He also takes Tums 1 a day due to acid reflux. I am not sure if that is the cause of hypercalcemia as well. So far PTH is suppressed. Continue IV fluids for now. If no significant recovery, may need a kidney biopsy. dw hospitalist 12/05/2024; SCr 8.56 on admission--> SCr 8.79 mg/dL today. Potassium and bicarb acceptable. Calcium 14.6 on admission, 11.5 today (continue holding valsartan/hydrochlorothiazide). Patient on IV fluids. Renal serologies pending. Urine output around 1.5 L yesterday (patient has Monterroso). Blood pressures acceptable. Though urine output has picked up renal function is slowly worsening and reviewed that with patient and his today. Reviewed with them that patient is quite possibly heading towards needing renal replacement therapy. Risks and benefits of dialysis explained. Dialysis in inpatient setting and outpatient setting also explained. Questions were answered. Patient is in agreement with moving forward with renal placement therapy. There is no urgent need for renal placement therapy today as potassiumand bicarb acceptable and volume status appears compensated. He did state he would like to see how his labs look tomorrow but in agreement with starting hemodialysis if necessary. Recommend surgery consult for hemodialysis catheter placement. Discussed nephrology plan with patient and . Discussed nephrology plan with Dr. Mazariegos. Labs ordered for morning. Assessment and planreviewed with Dr. Bah 12/05/24 1253 <Electronically signed by Sukhdeep NUNES> Cosigner Signature (if applicable): 12/06/24 1221 <Electronically signed by Alyssia Bah MD> CC: ~ Signed [facility] Work Phone: 1(626) 409-713210-07-2025 Progress note Author [facility]hdeep [facility] Note Date/Time December 06, 2024 12 :21pm [facility] Medical Records Department [address] [place] [address] Progress Note - Nephrology 12/06/24 1101 MR#: [id number] Acct: [id number] Name: LINA VARGAS Rep #:[id number] : 1940 83 From: Sukhdeep CENTENOC PCP: Dr. Luna Ashton, DO Status:AD M IN Location: [place] [address] Subjective Subjective Patient developed some wheezing overnight now on O2 via nasal cannula. States breathing improved once he had breathing treatments. No other complaints. Objective Data Objective Data Vital Signs: Vital Signs Temp Pulse Resp BP Pulse Ox O2 Del Method O2 Flow Rate 98.4 F 96 18 181/87 H 95 Nasal Cannula 2 12/06/24 10:48 12/06/24 10:48 12/06/24 10:48 12/06/24 10:48 12/06/24 10:48 12/06/24 10:48 12/06/24 10:48 Oxygen Flow Rate (L/min) 2 Oxygen Delivery Method Nasal Cannula Weight: 84.1 kg Body Mass Index (BMI) 25.1 Intake & Output: Intake and Output for Last 24 Hours 12/04/24 12/05/24 12/06/24 23:59 23:59 23:59 Intake Total 2390 / 2390 2953.95 / 2953.95 1000 / 1000 Output Total 1525 / 1525 1200 / 1600 400 / 400 Balance 865 / 865 1753.95 / 1353.95 600 / 600 Medical Nutrition Assessment Dietitian: Malnutrition Criteria Met Start: 12/04/24 12:12 Freq: Status: Active Protocol: Document 12/04/24 12:12 SLA (Rec: 12/04/24 12:13 SLA .12.24.7) Nutrition Malnutrition Evidence of Yes Malnutrition Exists Malnutrition (severe Acute Illness/Injury ): Evidenced By Suboptimal Energy Intake (Severe),Weight Loss (Severe) Clinical Problem Acute Disease or Injury Related Malnutrition Etiology related to issues 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 Status Active Problem Recommendation Dietitian Will liberalize diet to Regular w/ glucerna shake tid Recommendations/ at meals - once po intake improves, can adjust to carb Changes controlled diet if indicated. Will continue to follow and monitor for changes in pt nutritional status and make additional rec as indicate. Lab / Micro Data 12/06/24 04:35 12/06/24 04:35 Labs: Laboratory Results - last 24 hr 12/05/24 11:23: POC Glucose 164 H 12/05/24 16:24: POC Glucose 211 H 12/05/24 21:31: POC Glucose 141 H 12/06/24 04:35: WBC 5.9, RBC 2.15 L, Hgb 7.7 L, Hct 21.7 L, MCV 100.9 H, MCH 35.8 H, MCHC 35.5, RDW Std Deviation 42.2, RDW Coeff of Scotty 11.4 L, Plt Count 134 L, MPV 10.2, Immature Gran % (Auto) 0.500, Neut % (Auto) 76.0 H, Lymph % (Auto) 13.2 L, [place] % (Auto) 9.1, Eos % (Auto) 1.2, Baso % (Auto) 0.0, Absolute Neuts (auto) 4.5, Absolute Lymphs (auto) 0.78 L, Nucleated RBC % 0, Sodium 129 L, Potassium 4.2, Chloride 95 L, Carbon Dioxide 20.0 L, Anion Gap 14, BUN 104 H*,Creatinine 8.50 H*, Estim Creat Clear Calc 7.23 L*, Est GFR (MDRD) Non-Af 6 L, BUN/Creatinine Ratio 12.2, Glucose 132 H, Hemoglobin A1c 6.4 H, Calcium 10.9 12/06/24 06:16: POC Glucose 123 H Micro: Microbiology 12/03/24 20:38 Urine, Catheterized Urine Culture - Final Culture exhibits no growth. Physical Exam Narrative Alert awake oriented x 3 no obvious distress no JVD s1s2 no murmurs Diminished breath sounds with faint expiratory wheezing. On O2 via nasal cannula abdomen soft, nontender no edema [place] with clear yellow urine in bag and tubing Assessment & Plan Assessment/Plan (1) Hypercalcemia: (2) Acute renal failure: PLAN: Baseline creatinine as of beginning of this year was around 1.4 or so. Admission creatinine more than 9. [place] indwelling without much urine output. Renal ultrasound pending Associated hypercalcemia recent spine related issues. Will check serum protein electrophoresis, kappa, lambda light chain assay. I will also send other serologies. He also takes Tums 1 a day due to acid reflux. I am not sure if that is the cause of hypercalcemia as well. So far PTH is suppressed. Continue IV fluids for now. If no significant recovery, may need a kidney biopsy. dw hospitalist 12/05/2024; SCr 8.56 on admission--> SCr 8.79 mg/dL today. Potassium and bicarb acceptable. Calcium 14.6 on admission, 11.5 today (continue holding valsartan/hydrochlorothiazide). Patient on IV fluids. Renal serologies pending. Urine output around 1.5 L yesterday (patient has [place]so). Blood pressures acceptable. Though urine output has picked up renal function is slowly worsening and reviewed that with patient and his today. Reviewed with them that patient is quite possibly heading towards needing renal replacement therapy. Risks and benefits of dialysis explained. Dialysis in inpatient setting and outpatient setting also explained. Questions were answered. Patient is in agreement with moving forward with renal placement therapy. There is no urgent need for renal placement therapy today as potassiumand bicarb acceptable and volume status appears compensated. He did state he would like to see how his labs look tomorrow but in agreement with starting hemodialysis if necessary. Recommend surgery consult for hemodialysis catheter placement. Discussed nephrology plan with patient and . Discussed nephrology plan with Dr. Mazariegos. Labs ordered for morning. Assessment and planreviewed with Dr. Bah 12/06/2024; serum creatinine about the same today, 8.5 mg/dL, bicarb 20, potassium 4.2. Urine output yesterday 1.2 L. Calcium 10.9 today. Overnight patient developed difficulty breathing with wheezing, now on O2 nasal cannula. Can stop IV fluids. He is to have tunneled hemodialysis catheter placed today then will plan for dialysis afterwards and attempt small amount of fluid removalas patient/blood pressure tolerates. Renal serologies are pending. Discussed with patient today about kidney biopsy, risk and benefit of biopsy. Patient is in agreement with having kidney biopsy. Will place orders. Patient is not on any blood thinners. Continue to monitor for renal recovery. Discussed with case management, arrangements underway for outpatient hemodialysis at [facility] diagnosis DEANGELO. Assessment and plan reviewed with Dr. Bah 12/06/24 1107 <Electronically signed by Sukhdeep NUNES> Cosigner Signature (if applicable): 12/06/24 1221 <Electronically signed by Alyssia Bah MD> CC: ~ Signed [facility] Work Phone: 1(725) 547-159610-07-2025 Progress note Author Claire Mazariegos [facility] Note Date/Time December 06, 2024 12 :05pm [facility] Medical Records Department [address] [place] [address] Progress Note - Hospitalist 12/06/24 0947 MR#: [id number] Acct: [id number] Name: LINA VARGAS Rep #:[id number] : 1940 83 From: Claire Mazariegos MD PCP: Dr. Luna Ashton, DO Status:AD M IN Location: [place] [address]- 1 Reason for Visit Chief Complaint: N/V, generalized weakness Subjective Subjective General short of breath overnight was wheezing improved with albuterol, has not had another bowel movement but will be getting a stool softener later, nausea still much better Objective Data Objective Data Vital Signs: Vital Signs Temp Pulse Resp BP Pulse Ox O2 Del Method O2 Flow Rate 98.0 F 90 18 170/80 H 95 Nasal Cannula 2.5 12/06/24 04:51 12/06/24 07:40 12/06/24 05:30 12/06/24 04:51 12/06/24 05:30 12/06/24 05:30 12/06/24 05:30 Oxygen Flow Rate (L/min) 2.5 Oxygen Delivery Method Nasal Cannula Weight: 84.1 kg Body Mass Index (BMI) 25.1 Intake & Output: Intake and Output for Last 24 Hours 12/04/24 12/05/24 12/06/24 23:59 23:59 23:59 Intake Total 2390 / 2390 2953.95 / 2953.95 1000 / 1000 Output Total 1525 / 1525 1200 / 1600 400 / 400 Balance 865 / 865 1753.95 / 1353.95 600 / 600 Medical Nutrition Assessment Dietitian: Malnutrition Criteria Met Start: 12/04/24 12:12 Freq: Status: Active Protocol: Document 12/04/24 12:12 SLA (Rec: 12/04/24 12:13 SLA ..25.7) Nutrition Malnutrition Evidence of Yes Malnutrition Exists Malnutrition (severe Acute Illness/Injury ): Evidenced By Suboptimal Energy Intake (Severe),Weight Loss (Severe) Clinical Problem Acute Disease or Injury Related Malnutrition Etiology related to issues 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 Status Active Problem Recommendation Dietitian Will liberalize diet to Regular w/ glucerna shake tid Recommendations/ at meals - once po intake improves, can adjust to carb Changes controlled diet if indicated. Will continue to follow and monitor for changes in pt nutritional status and make additional rec as indicate. Lab / Micro Data 12/06/24 04:35 12/06/24 04:35 Labs: Laboratory Results - last 24 hr 12/05/24 11:23: POC Glucose 164 H 12/05/24 16:24: POC Glucose 211 H 12/05/24 21:31: POC Glucose 141 H 12/06/24 04:35: WBC 5.9, RBC 2.15 L, Hgb 7.7 L, Hct 21.7 L, MCV 100.9 H, MCH 35.8 H, MCHC 35.5, RDW Std Deviation 42.2, RDW Coeff of Scotty 11.4 L, Plt Count 134 L, MPV 10.2, Immature Gran % (Auto) 0.500, Neut % (Auto) 76.0 H, Lymph % (Auto) 13.2 L, [place] % (Auto) 9.1, Eos % (Auto) 1.2, Baso % (Auto) 0.0, Absolute Neuts (auto) 4.5, Absolute Lymphs (auto) 0.78 L, Nucleated RBC % 0, Sodium 129 L, Potassium 4.2, Chloride 95 L, Carbon Dioxide 20.0 L, Anion Gap 14, BUN 104 H*,Creatinine 8.50 H*, Estim Creat Clear Calc 7.23 L*, Est GFR (MDRD) Non-Af 6 L, BUN/Creatinine Ratio 12.2, Glucose 132 H, Hemoglobin A1c 6.4 H, Calcium 10.9 12/06/24 06:16: POC Glucose 123 H Micro: Microbiology 12/03/24 20:38 Urine, Catheterized Urine Culture - Final Culture exhibits no growth. Physical Exam Narrative General: Awake and alert, answering questions appropriately HEENT: Atraumatic, normocephalic Eyes: Anicteric, normal conjunctiva, extraocular movements grossly intact Neck: Supple Respiratory: No overt wheezes, rhonchi, crackles on exam, normal respiratory effort Cardiovascular: Regular rate GI: Soft, nontender Extremities: No edema Musculoskeletal: Moving all extremities Neuro: No overt focal neurological deficits Skin: No rashes appreciated Psych: Cooperative Assessment & Plan Assessment/Plan (1) Acute renal failure: PLAN: Plan #Acute kidney failure -Patient with a creatinine around 1.5 at baseline with most recent value 9 months ago being 1.5 to - Presenting now with a creatinine of 8.56 - Bicarb 19.5 - Patient not hyperkalemic - Vitally stable and not volume overloaded - Patient alert, no seizure activity, confusion, altered mental status - Presently does not seem to have any indications for emergent dialysis - Suspect that patient's nausea and vomiting with very poor p.o. intake on top of continuing to take his valsartan/hydrochlorothiazide caused or largely contributed to his worsening renal failure - Patient reportedly had been urinating at home and even urinated this morning however in the ED unable to urinate and has 280 on bladder scan - Unclear if there has been an obstructive component to this as well given patient's report of urinating okay prior to coming in - Will have Monterroso catheter placed given patient reporting he is unable to urinate in the ED and bladder scan shows 280 - IV fluids - Will check UA given reports of suprapubic discomfort - Check urine studies - Kidney and bladder ultrasound -Check CK - Discussed with nephrology, nephrology consult placed -12/04: Despite sodium and calcium improving, kidney function has remained about the same, BUN this a.m. 112 with a creatinine of 8.49. UA with protein and occult blood, rare bacteria and does not seem UA is indicative of infection. FEUrea is 61.8 suggesting intrinsic renal disease. SPEP and UPEP pending, nephrology consulted, kidney and bladder ultrasound ordered, Monterroso catheter in place, patient has had 1300 output since admission yesterday evening. [place] lambda light chains ordered in addition to protein electrophoresis. Discussed with nephrology. -12/05: BUN 107 with a creatinine slightly worse of 8.79, still making urine, nephrology following, lab workup pending, kidney and bladder ultrasound is ordered and pending -12/06: Kidney and bladder ultrasound normal, kidney function virtually unchangedsince presentation, patient for tunneled dialysis catheter today per nephrology recommendation to begin dialysis, discussed with nephrology, patient also for kidney biopsy tomorrow # Hypercalcemia -Unclear if this is secondary to significant dehydration or if this could be a primary process associated with his renal failure and dehydration - Will hydrate with normal saline - Will check PTH and vitamin D - will check Phos - If no or minimal improvement can consider calcitonin and/or bisphosphonates - Will also check serum and urine protein electrophoresis given high calcium with kidney failure, high total protein and globulin, anemia and recent L1 fracture/bone pain in addition to generalized weakness - Chest x-ray also ordered to evaluate for any possible lesions -12/04: Improving with hydration, patient's Phos is high which is likely secondary to his renal failure, notably vitamin D is within normal limits at 43 and PTH is only 15. Suspect that patient's hypercalcemia is largely due to dehydration in addition to his hydrochlorothiazide in addition to multiple calcium based medications being taken daily for reflux but workup still pending. Protein electrophoresis pending and kappa lambda light chains ordered -12/05: Still slightly elevated at 11.5 but has consistently continued to improve, continue IV fluids and avoiding calcium based agents, continue to hold hydrochlorothiazide -12/06: Calcium within normal limits today #Hyponatremia -Possibly secondary to dehydration but cannot say definitively, patient additionally on hydrochlorothiazide which will be held - Will order serum osmole's - Check urine studies - TSH - Lipid profile - Monitor I's and O's - Trend BMPs -12/04: Patient actually has elevated serum osmolality with an osmolality of 324 but no hyperglycemia or hyperlipidemia therefore suspect this is either due to his kidney failure with uremia or could possibly pseudohyponatremia due to a paraproteinemia +/- HCTZ, serum and urine protein electrophoresis pending as well as kappa lambda light chains. Notably sodium has slowly up trended to 129 with fluids and cessation of HCTZ, will continue present management while further workup underway -12/05: Sodium of 128, seems to have stabilized, do suspect that this is at leastin part due to renal disease with uremia, continue to monitor, continue to hold hydrochlorothiazide -12/06: Hyponatremia continues to remain stable with a sodium of 129, will not resume hydrochlorothiazide on discharge # Macrocytic anemia -12/04: Patient with hemoglobin 10.7 on presentation with no previous baseline seen in our system, this a.m. hemoglobin 7.9 which is significant drop but no evidence of ongoing bleeding, suspect the patient was significantly volume depleted/dehydrated and was hemoconcentrated especially given drop in all 3 celllines. MCV is 98.6, will be ordering B12, iron panel, folate -12/05: Hemoglobin slightly lower today, in part likely due to dilution and blooddraws, 7.2 this a.m.. Folate is technically within normal limits but on the lowside so we will start folic acid but B12 within normal limits, iron and iron saturation within normal limits with elevated ferritin. 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 -12/06: Hemoglobin actually up to 7.7 today, continue to monitor #GERD -Continue PPI -12/04: Reportedly patient's been having significant reflux symptoms for the pastyear, takes omeprazole at home and has been taking nightly calcium based products for reflux, patient's reflux may be contributing to his nausea, will place on IV PPI twice daily, avoiding calcium based agents -12/05: Patient now on IV PPI every 12, avoiding calcium based agents, symptoms significantly improved -12/06: Doing very well on twice daily PPI, will likely need this on discharge #Hypertension -Will be holding valsartan/hydrochlorothiazide due to the above -12/04: Continue to hold valsartan/hydrochlorothiazide and monitor blood pressure, can consider alternative agent if necessary but will be careful to avoid hypotension -12/05: Hydralazine as needed if needed, continue to hold ARB and HCTZ -12/06: Patient on hydralazine as needed, would likely need to begin antihypertensive, will plan to do this after patient's procedure pending blood pressures #L1 compression fracture - Patient scheduled for kyphoplasty Thursday - Denies taking any NSAIDs or pain medications - Supportive care -12/04: Continue pain control and supportive care -12/05: Did advise to cancel kyphoplasty appointment given patient still in the hospital and to hold off on rescheduling until we have more answers and a better idea of discharge -12/06: Will need follow-up with pain management upon discharge #Type 2 diabetes mellitus -Glucose checks and sliding scale insulin - Had somewhat low glucose of 59 on presentation - Will decrease long-acting insulin - Holding sitagliptin and metformin -12/04: Glucose has actually remained low, will discontinue long-acting insulin altogether -12/05: Glucose has been more stable overnight, continue to hold long-acting insulin -12/06: Glucose 123 this a.m., hemoglobin A1c 6.4, will need to decrease patient's insulin regimen significantly on discharge to avoid hypoglycemia Chronic medical problems and/or problems not being actively addressed during today's encounter: #Hypothyroidism -Continue Synthroid #DVT ppx: SCDs Claire Mazariegos MD Charges/Coding Visit Charges Inpatient E&M: 52908 Subs Hosp L2 12/06/24 1205 <Electronically signed by Claire Mazariegos MD> Cosigner Signature (if applicable): CC: ~ Signed [facility] Work Phone: [phone] 910-186710-07-2025 Progress note Author Susan Medina [facility] Note Date/Time December 06, 2024 8: 29am [facility] Medical Records Department [address] [place] [address] Progress Note - Surgery 12/06/24824 MR#: [id number] Acct: [id number] Name: LINA VARGAS Rep #:[id number] : 1940 83 From: Susan LEROY PA-C PCP: Dr. Luna Ashton, DO Status:AD M IN Location: [place] [address] Subjective Subjective Patient evaluated resting comfortably in bed. He denies any questions or concerns about today's tunneled dialysis catheter procedure. Objective Data Objective Data Vital Signs: Vital Signs Temp Pulse Resp BP Pulse Ox O2 Del Method O2 Flow Rate 98.0 F 90 18 170/80 H 95 Nasal Cannula 2.5 12/06/24 04:51 12/06/24 07:40 12/06/24 05:30 12/06/24 04:51 12/06/24 05:30 12/06/24 05:30 12/06/24 05:30 Oxygen Flow Rate (L/min) 2.5 Oxygen Delivery Method Nasal Cannula Weight: 185 lb 6.54 oz Body Mass Index (BMI) 25.1 Intake & Output: Intake and Output for Last 24 Hours 12/04/24 12/05/24 12/06/24 23:59 23:59 23:59 Intake Total 2390 / 2390 2953.95 / 2953.95 1000 / 1000 Output Total 1525 / 1525 1200 / 1600 400 / 400 Balance 865 / 865 1753.95 / 1353.95 600 / 600 Medical Nutrition Assessment Dietitian: Malnutrition Criteria Met Start: 12/04/24 12:12 Freq: Status: Active Protocol: Document 12/04/24 12:12 SLA (Rec: 12/04/24 12:13 SLA [id number]) Nutrition Malnutrition Evidence of Yes Malnutrition Exists Malnutrition (severe Acute Illness/Injury ): Evidenced By Suboptimal Energy Intake (Severe),Weight Loss (Severe) Clinical Problem Acute Disease or Injury Related Malnutrition Etiology related to issues 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 Status Active Problem Recommendation Dietitian Will liberalize diet to Regular w/ glucerna shake tid Recommendations/ at meals - once po intake improves, can adjust to carb Changes controlled diet if indicated. Will continue to follow and monitor for changes in pt nutritional status and make additional rec as indicate. Lab / Micro Data 12/06/24 04:35 12/06/24 04:35 Labs: Laboratory Results - last 24 hr 12/05/24 11:23: POC Glucose 164 H 12/05/24 16:24: POC Glucose 211 H 12/05/24 21:31: POC Glucose 141 H 12/06/24 04:35: WBC 5.9, RBC 2.15 L, Hgb 7.7 L, Hct 21.7 L, MCV 100.9 H, MCH 35.8 H, MCHC 35.5, RDW Std Deviation 42.2, RDW Coeff of Scotty 11.4 L, Plt Count 134 L, MPV 10.2, Immature Gran % (Auto) 0.500, Neut % (Auto) 76.0 H, Lymph % (Auto) 13.2 L, [place] % (Auto) 9.1, Eos % (Auto) 1.2, Baso % (Auto) 0.0, Absolute Neuts (auto) 4.5, Absolute Lymphs (auto) 0.78 L, Nucleated RBC % 0, Sodium 129 L, Potassium 4.2, Chloride 95 L, Carbon Dioxide 20.0 L, Anion Gap 14, BUN 104 H*,Creatinine 8.50 H*, Estim Creat Clear Calc 7.23 L*, Est GFR (MDRD) Non-Af 6 L, BUN/Creatinine Ratio 12.2, Glucose 132 H, Hemoglobin A1c 6.4 H, Calcium 10.9 12/06/24 06:16: POC Glucose 123 H Micro: Microbiology 12/03/24 20:38 Urine, Catheterized Urine Culture - Preliminary Culture exhibits no growth. Radiography Diagnostic Testing: Radiology Impression Renal Ultrasound 12/05/24 07:00 IMPRESSION: No acute abnormality. No obstruction Reading Location: [id number] Assessment & Plan Assessment/Plan (1) Acute renal failure: PLAN: I am following this patient in conjunction with Dr. Evans. He has independently evaluated this patient. Labs reviewed Plan for a right possible left tunneled dialysis catheter placement later this afternoon We will continue to monitor this patient Charges/Coding Visit Charges Inpatient E&M: 50171 Subs Hosp L1 12/06/24 0829 <Electronically signed by Susan LEROY PA-C> Cosigner Signature (if applicable): CC: ~ Signed [facility] Work Phone: 1(655) 464-158010-06-2025 Consult note Author Henry Evans [facility] Note Date/Time December 05, 2024 7: 18pm [facility] Medical Records Department [address] [place] [address] Consultation - Surgical 12/05/241910 MR#: [id number] Acct: [id number] Name: LINA VARGAS Rep #:[id number] : 1940 83 From: Henry Jean Baptiste PCP: Dr. Luna Ashton, DO Status:AD M IN Location: [id number] Assessment & Plan Assessment/Plan (1) Acute renal failure: PLAN: Patient 83-year-old male who presents with acute renal failure and has notexperienced renal function recovery despite careful resuscitative measures so heis recommended to start hemodialysis per nephrology. I clearly described the procedure and my intent to proceed with a right internal jugular approach given his dominant hand is his right side and should he require a fistula we would minimize the risk for central venous stenosis for a left upper extremity fistula. He confirms understanding and denies further questions. He should be held n.p.o. past midnight in anticipation of this procedure tomorrow 12/06/2024. Consents to be obtained for ultrasound- guided right possible left internal jugular tunneled hemodialysis catheter insertion. Henry Evans MD General Surgery Endocrine Surgery Pager: [facility] [address] [place] [address], [address] [place] [address] Office: [phone] HPI Consult Data Date of Consult: 12/05/24 HPI Narrative Reason for Consultation: Insertion of tunneled hemodialysis catheter HPI Narrative: LINA VARGAS, is a 83 M who presented to [facility] on 12/03/2024 with complaints of nausea and vomiting. He is admitted to the hospital after hewas found to have evidence of a severe acute kidney injury/acute renal failure. His , who accompanies him at bedside, provides some the history. Together they share a history of a lumbar compression fracture that was due for kyphoplasty today (obviously put on hold on account of his current admission). They state that he has had ongoing pain and nausea/vomiting. He also shared that he was taking both Gaviscon and Tums for GERD at the direction of their PCPand on intake his calcium was exceptionally high. They make mention of ruling out a possible bowel blockage and going on laxatives just prior to admission as well. Through this period of feeling unwell he admits that he did not stay particularly well-hydrated but does report that he has been urinating at home. He expresses surprise that he is having renal trouble as his creatinine was 1.3 at the beginning of the year. [facility] Medical History (Updated 12/04/24 @ 12:[address] Claire Mazariegos MD) CKD (chronic kidney disease) stage 1, GFR 90 ml/min or greater Trigger finger of right hand Apical variant hypertrophic cardiomyopathy HLD (hyperlipidemia) Shingles (herpes zoster) polyneuropathy Acute urticaria GERD (gastroesophageal reflux disease) Hypothyroidism Home Medications ?Medication ?Instructions ?Recorded ?Last Taken ?Type blood sugar diagnostic (True #100 ea 02/11/23 Unknown Rx Metrix Glucose Test Strip) blood-glucose meter #1 ea 02/11/23 Unknown Rx atorvastatin 20 mg tablet 20 mg PO QDAY #90 tabs 09/2912/02/24 Rx lancets 30 gauge (Unilet Lancets) #100 ea 09/29/24 Unk nown Rx levothyroxine 100 mcg tablet 100 mcg PO DAILY #100 tab s 09/29/24 12/03/24 Rx metformin 500 mg tablet,extended 500 mg PO BID #180 ta bs 09/29/24 12/03/24 10:00 Rx release 24 hr omeprazole 20 mg capsule,delayed 20 mg PO DAILY #100 c aps 09/29/24 12/03/24 Rx release pen needle, diabetic 29 gauge x #100 ea 09/29/24 Unkno wn Rx 1/2 (CareFine Pen Needle) sitagliptin phosphate 100 mg 100 mg PO DAILY #100 tabs 09/29/24 12/03/24 Rx tablet (Januvia) valsartan 160 1 tab PO DAILY #90 TABLETS 0 09/29/24 12/03/24 Rx mg-hydrochlorothiazide 12.5 mg tablet ondansetron 4 mg disintegrating 4 mg PO Q8H PRN nausea and 11/29/24 12/02/24 Rx tablet vomiting #14 tabs insulin glargine 100 unit/mL (3 21 unit subcut QHS 06/2412/02/24 History mL) subcutaneous pen (Lantus Solostar U-100 Insulin) magnesium 250 mg tablet 250 mg PO QHS 12/03/2412/02 History Allergy/AdvReac Type Severity Reaction Status Date / Time meloxicam (From Mobic) Allergy Severe unknown Verified 12/03/24 14:09 pentazocine (From Talwin) Allergy Severe unknown Verified 12/03/24 14:09 metaxalone AdvReac Intermediate Nausea Verified 12/03/24 14:09 Family History Father Heart disease Mother CVA (cerebral vascular accident) Hypertension Breast cancer Surgical History History of back surgery History of left knee surgery History of appendectomy History of cardiac cath Social History Smoking Status: Never smoker how long ago did patient quit smokin alcohol intake: never Physical Exam Const alert, oriented x3 and no apparent distress Chest Chest Narrative: No rashes, scars, eruptions, or other signs of skin infections. 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 Status Active Problem Recommendation Dietitian Will liberalize diet to Regular w/ glucerna shake tid Recommendations/ at meals - once po intake improves, can adjust to carb Changes controlled diet if indicated. Will continue to follow and monitor for changes in pt nutritional status and make additional rec as indicate. Lab / Micro Data 12/05/24 05:04 12/05/24 05:04 Labs: Laboratory Results - last 24 hr 12/04/24 21:10: POC Glucose 132 H 12/05/24 05:04: WBC 5.3, RBC 2.03 L, Hgb 7.3 L, Hct 20.6 L, MCV 101.5 H, MCH 36.0 H, MCHC 35.4, RDW Std Deviation 42.8, RDW Coeff of [place] 11.6, Plt Count 122 L, MPV 10.3, Sodium 128 L, Potassium 4.1, Chloride 95 L, Carbon Dioxide 19.1 L, Anion Gap 14, BUN 107 H*, Creatinine 8.79 H*, Estim Creat Clear Calc 6.93 L*, Est GFR (MDRD) Non- Af 6 L, BUN/Creatinine Ratio 12.2, Glucose 128 H, Calcium 11.5H, Iron 84, TIBC 188 L, Iron Saturation 44.7, Unsaturated IBC 104 L, Ferritin 453 H, Vitamin B12 456, Serum Folate 6.03 12/05/24 06:01: POC Glucose 118 H 12/05/24 11:23: POC Glucose 164 H 12/05/24 16:24: POC Glucose 211 H Micro: Microbiology 12/03/24 20:38 Urine, Catheterized Urine Culture - Preliminary Culture exhibits no growth. Imaging Radiology Impression Renal Ultrasound 12/05/24 07:00 IMPRESSION: No acute abnormality. No obstruction Reading Location: [id number] Charges/Coding Visit Charges Inpatient E&M: 63283 Init Hosp L2 12/05/24 1918 <Electronically signed by Henry Evans MD> Cosigner Signature (if applicable): CC: Dr. Luna Ashton, DO~ Signed [facility] Work Phone: 1(305) 765-265410-06-2025 Progress note Author Claire Mazariegos [facility] Note Date/Time December 05, 2024 8: 50am [facility] Medical Records Department [address] [place] [address] Progress Note - Hospitalist 12/05/24 0754 MR#: [id number] Acct: [id number] Name: LINA VARGAS Rep #:[id number] : 1940 83 From: Claire Mazariegos MD PCP: Dr. Luna Ashton, DO Status:AD M IN Location: [place] [address] Reason for Visit Chief Complaint: N/V, generalized weakness Subjective Subjective Patient actually feeling a little bit better this morning, less groggy, much less nauseous, reflux symptoms significantly improved with scheduling PPI, stillmaking urine, no new complaints Objective Data Objective Data Vital Signs: Vital Signs Temp Pulse Resp BP Pulse Ox O2 Del Method 97.3 F L 80 16 148/81 H 96 Room Air 12/05/24 03:05 12/05/24 03:05 12/05/24 03:05 12/05/24 03:05 12/05/24 03:05 12/05/24 03:05 Oxygen Delivery Method Room Air Weight: 76.9 kg Body Mass Index (BMI) 23.0 Intake & Output: Intake and Output for Last 24 Hours 12/03/24 12/04/24 12/05/24 23:59 23:59 23:59 Intake Total 2240 / 2240 2390 / 2390 1103.75 / 1103.75 Output Total 800 / 800 1525 / 1525 600 / 600 Balance 1440 / 1440 865 / 865 503.75 / 503.75 Medical Nutrition Assessment Dietitian: Malnutrition Criteria Met Start: 12/04/24 12:12 Freq: Status: Active Protocol: Document 12/04/24 12:12 SLA (Rec: 12/04/24 12:13 SLA [email or web address]) Nutrition Malnutrition Evidence of Yes Malnutrition Exists Malnutrition (severe Acute Illness/Injury ): Evidenced By Suboptimal Energy Intake (Severe),Weight Loss (Severe) Clinical Problem Acute Disease or Injury Related Malnutrition Etiology related to issues 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 Status Active Problem Recommendation Dietitian Will liberalize diet to Regular w/ glucerna shake tid Recommendations/ at meals - once po intake improves, can adjust to carb Changes controlled diet if indicated. Will continue to follow and monitor for changes in pt nutritional status and make additional rec as indicate. Lab / Micro Data 12/05/24 05:04 12/05/24 05:04 Labs: Laboratory Results - last 24 hr 12/04/24 12:42: POC Glucose 81 12/04/24 17:24: POC Glucose 104 12/04/24 21:10: POC Glucose 132 H 12/05/24 05:04: WBC 5.3, RBC 2.03 L, Hgb 7.3 L, Hct 20.6 L, MCV 101.5 H, MCH 36.0 H, MCHC 35.4, RDW Std Deviation 42.8, RDW Coeff of Scotty 11.6, Plt Count 122 L, MPV 10.3, Sodium 128 L, Potassium 4.1, Chloride 95 L, Carbon Dioxide 19.1 L, Anion Gap 14, BUN 107 H*, Creatinine 8.79 H*, Estim Creat Clear Calc 6.93 L*, Est GFR (MDRD) Non- Af 6 L, BUN/Creatinine Ratio 12.2, Glucose 128 H, Calcium 11.5H, Iron 84, TIBC 188 L, Iron Saturation 44.7, Unsaturated IBC 104 L, Ferritin 453 H, Vitamin B12 456, Serum Folate 6.03 12/05/24 06:01: POC Glucose 118 H Physical Exam Narrative General: Awake and alert, answering questions appropriately HEENT: Atraumatic, normocephalic Eyes: Anicteric, normal conjunctiva, extraocular movements grossly intact Neck: Supple Respiratory: Clear to auscultation bilaterally, normal respiratory effort Cardiovascular: Regular rate GI: Soft, nontender Extremities: No edema Musculoskeletal: Moving all extremities Neuro: No overt focal neurological deficits Skin: No rashes appreciated Psych: Cooperative Assessment & Plan Assessment/Plan (1) Acute renal failure: PLAN: Plan #Acute kidney failure -Patient with a creatinine around 1.5 at baseline with most recent value 9 months ago being 1.5 to - Presenting now with a creatinine of 8.56 - Bicarb 19.5 - Patient not hyperkalemic - Vitally stable and not volume overloaded - Patient alert, no seizure activity, confusion, altered mental status - Presently does not seem to have any indications for emergent dialysis - Suspect that patient's nausea and vomiting with very poor p.o. intake on top of continuing to take his valsartan/hydrochlorothiazide caused or largely contributed to his worsening renal failure - Patient reportedly had been urinating at home and even urinated this morning however in the ED unable to urinate and has 280 on bladder scan - Unclear if there has been an obstructive component to this as well given patient's report of urinating okay prior to coming in - Will have Monterroso catheter placed given patient reporting he is unable to urinate in the ED and bladder scan shows 280 - IV fluids - Will check UA given reports of suprapubic discomfort - Check urine studies - Kidney and bladder ultrasound -Check CK - Discussed with nephrology, nephrology consult placed -12/04: Despite sodium and calcium improving, kidney function has remained about the same, BUN this a.m. 112 with a creatinine of 8.49. UA with protein and occult blood, rare bacteria and does not seem UA is indicative of infection. FEUrea is 61.8 suggesting intrinsic renal disease. SPEP and UPEP pending, nephrology consulted, kidney and bladder ultrasound ordered, Monterroso catheter in place, patient has had 1300 output since admission yesterday evening. [place] lambda light chains ordered in addition to protein electrophoresis. Discussed with nephrology. -12/05: BUN 107 with a creatinine slightly worse of 8.79, still making urine, nephrology following, lab workup pending, kidney and bladder ultrasound is ordered and pending # Hypercalcemia -Unclear if this is secondary to significant dehydration or if this could be a primary process associated with his renal failure and dehydration - Will hydrate with normal saline - Will check PTH and vitamin D - will check Phos - If no or minimal improvement can consider calcitonin and/or bisphosphonates - Will also check serum and urine protein electrophoresis given high calcium with kidney failure, high total protein and globulin, anemia and recent L1 fracture/bone pain in addition to generalized weakness - Chest x-ray also ordered to evaluate for any possible lesions -12/04: Improving with hydration, patient's Phos is high which is likely secondary to his renal failure, notably vitamin D is within normal limits at 43 and PTH is only 15. Suspect that patient's hypercalcemia is largely due to dehydration in addition to his hydrochlorothiazide in addition to multiple calcium based medications being taken daily for reflux but workup still pending. Protein electrophoresis pending and kappa lambda light chains ordered -12/05: Still slightly elevated at 11.5 but has consistently continued to improve, continue IV fluids and avoiding calcium based agents, continue to hold hydrochlorothiazide #Hyponatremia -Possibly secondary to dehydration but cannot say definitively, patient additionally on hydrochlorothiazide which will be held - Will order serum osmole's - Check urine studies - TSH - Lipid profile - Monitor I's and O's - Trend BMPs -12/04: Patient actually has elevated serum osmolality with an osmolality of 324 but no hyperglycemia or hyperlipidemia therefore suspect this is either due to his kidney failure with uremia or could possibly pseudohyponatremia due to a paraproteinemia +/- HCTZ, serum and urine protein electrophoresis pending as well as kappa lambda light chains. Notably sodium has slowly up trended to 129 with fluids and cessation of HCTZ, will continue present management while further workup underway -12/05: Sodium of 128, seems to have stabilized, do suspect that this is at leastin part due to renal disease with uremia, continue to monitor, continue to hold hydrochlorothiazide # Macrocytic anemia -12/04: Patient with hemoglobin 10.7 on presentation with no previous baseline seen in our system, this a.m. hemoglobin 7.9 which is significant drop but no evidence of ongoing bleeding, suspect the patient was significantly volume depleted/dehydrated and was hemoconcentrated especially given drop in all 3 celllines. MCV is 98.6, will be ordering B12, iron panel, folate -12/05: Hemoglobin slightly lower today, in part likely due to dilution and blooddraws, 7.2 this a.m.. Folate is technically within normal limits but on the lowside so we will start folic acid but B12 within normal limits, iron and iron saturation within normal limits with elevated ferritin. 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 #GERD -Continue PPI -12/04: Reportedly patient's been having significant reflux symptoms for the pastyear, takes omeprazole at home and has been taking nightly calcium based products for reflux, patient's reflux may be contributing to his nausea, will place on IV PPI twice daily, avoiding calcium based agents -12/05: Patient now on IV PPI every 12, avoiding calcium based agents, symptoms significantly improved #Hypertension -Will be holding valsartan/hydrochlorothiazide due to the above -12/04: Continue to hold valsartan/hydrochlorothiazide and monitor blood pressure, can consider alternative agent if necessary but will be careful to avoid hypotension -12/05: Hydralazine as needed if needed, continue to hold ARB and HCTZ #L1 compression fracture - Patient scheduled for kyphoplasty Thursday - Denies taking any NSAIDs or pain medications - Supportive care -12/04: Continue pain control and supportive care -12/05: Did advise to cancel kyphoplasty appointment given patient still in the hospital and to hold off on rescheduling until we have more answers and a better idea of discharge #Type 2 diabetes mellitus -Glucose checks and sliding scale insulin - Had somewhat low glucose of 59 on presentation - Will decrease long-acting insulin - Holding sitagliptin and metformin -12/04: Glucose has actually remained low, will discontinue long-acting insulin altogether -12/05: Glucose has been more stable overnight, continue to hold long-acting insulin Chronic medical problems and/or problems not being actively addressed during today's encounter: #Hypothyroidism -Continue Synthroid #DVT ppx: SCDs Claire Mazariegos MD Time spent in the patient's overall evaluation,decision-making process, review of diagnostic data, adjustment of management, discussion with other providers, nursing nursing and ancillary staff involved in patient's care documentation, 51Minutes Charges/Coding Visit Charges Inpatient E&M: 60457 Subs Hosp L3 12/05/24 0850 <Electronically signed by Claire Mazariegos MD> Cosigner Signature (if applicable): CC: ~ Signed [facility] Work Phone: 1(590) 941-557110-06-2025 Radiology Diagnostic study note [facility] Imaging Services [address] [place], [place] [id number] Kidney and Bladder MR#: [id number] Acct: [id number] Name: LINA VARGAS Rep #: [id number] : 1940 M 83 From: Fer Edmond MD PCP: Dr. Luna Ashton, DO Status: AD M IN Study:Kidney and Bladder Date of Exam: 1 Exam# [id number] Ordering Dr: Rubia Mazariegos MD PROCEDURE: KIDNEY AND BLADDER 12/05/2024 REASON FOR EXAM: ACUTE RENAL FAILURE TECHNIQUE: Procedure Code: USKI Modality: US Procedure: KIDNEY AND BLADDER COMPARISON: July 10, 2022 FINDINGS: Kidneys: The right kidney is 13.3 x 6.8 x 6.3 cm, while the left is 13.8 x 5.6 x5.2 cm. [place]: None Cysts or Masses: None Bladder: Monterroso catheter is in place. US/Kidney and Bladder IMPRESSION: No acute abnormality. No obstruction Reading Location: [id number] CC: Dr. Luna Ashton, ; Dr. Claire Mazariegos MD ~ Data Entry Email Processor: Signed [facility]10-05-2025 Consult note Author Alyssia Bah [facility] Note Date/Time December 04, 2024 2: 55pm [facility] Medical Records Department [address] [place] [address] Consultation - Nephrology 12/04/24 1451 MR#: [id number] Acct: [id number] Name: LINA VARGAS Rep #:[id number] : 1940 83 From: Alyssia goetz MD PCP: Dr. Luna Ashton, Status:AD M IN Location: [place] [address] Assessment & Plan Assessment/Plan (1) Hypercalcemia: (2) Acute renal failure: PLAN: Baseline creatinine as of beginning of this year was around 1.4 or so. Admission creatinine more than 9. Monterroso indwelling without much urine output. Renal ultrasound pending Associated hypercalcemia recent spine related issues. Will check serum protein electrophoresis, kappa, lambda light chain assay. I will also send other serologies. He also takes Tums 1 a day due to acid reflux. I am not sure if that is the cause of hypercalcemia as well. So far PTH is suppressed. Continue IV fluids for now. If no significant recovery, may need a kidney biopsy. dw hospitalist HPI Consult Data Date of Consult: 12/04/24 HPI Narrative Reason for Consultation: DEANGELO HPI Narrative: LINA VARGAS, is a 83 M who presents To the hospital with generalized weakness, nausea, vomiting. Nephrology on consultation in view of acute renal failure. Primary care physician is Dr. Ashton. As of March this year, creatinine was around 1.3- 1.4. Over the last few months, medical events include sudden onset of low back pain, had imaging studies which showed compression fracture, was in the process of scheduling appointment with pain management. They actually have an appointment tomorrow. Over the last 2 weeks or so, he had progressively worsening poor appetite, nausea, vomiting. Minimal oral intake. Found to have renal failure, creatinine more than 9 in the ER. He says he was making urine but since he was not eating or drinking much, urine output has decreased. Denies any obstructive symptoms. Initial bladder scan in the ER was about 200 cc or so, Monterroso placed with some urine. Denies taking any [id number] medications. Other than pain medications, no other new medications. [facility] Medical History (Updated 12/04/24 @ 12:[address] Claire Mazariegos MD) CKD (chronic kidney disease) stage 1, GFR 90 ml/min or greater Trigger finger of right hand Apical variant hypertrophic cardiomyopathy HLD (hyperlipidemia) Shingles (herpes zoster) polyneuropathy Acute urticaria GERD (gastroesophageal reflux disease) Hypothyroidism Home Medications ?Medication ?Instructions ?Recorded ?Last Taken ?Type blood sugar diagnostic (True #100 ea 02/11/23 Unknown Rx Metrix Glucose Test Strip) blood-glucose meter #1 ea 02/11/23 Unknown Rx atorvastatin 20 mg tablet 20 mg PO QDAY #90 tabs 09/2912/02/24 Rx lancets 30 gauge (Unilet Lancets) #100 ea 09/29/24 Unk nown Rx levothyroxine 100 mcg tablet 100 mcg PO DAILY #100 tab s 09/29/24 12/03/24 Rx metformin 500 mg tablet,extended 500 mg PO BID #180 ta bs 09/29/24 12/03/24 10:00 Rx release 24 hr omeprazole 20 mg capsule,delayed 20 mg PO DAILY #100 c aps 09/29/24 12/03/24 Rx release pen needle, diabetic 29 gauge x #100 ea 09/29/24 Unkno wn Rx 1/2 (CareFine Pen Needle) sitagliptin phosphate 100 mg 100 mg PO DAILY #100 tabs 09/29/24 12/03/24 Rx tablet (Januvia) valsartan 160 1 tab PO DAILY #90 TABLETS 0 09/29/24 12/03/24 Rx mg-hydrochlorothiazide 12.5 mg tablet ondansetron 4 mg disintegrating 4 mg PO Q8H PRN nausea and 11/29/24 12/02/24 Rx tablet vomiting #14 tabs insulin glargine 100 unit/mL (3 21 unit subcut QHS 06/2412/02/24 History mL) subcutaneous pen (Lantus Solostar U-100 Insulin) magnesium 250 mg tablet 250 mg PO QHS 12/03/2412/02 History Allergy/AdvReac Type Severity Reaction Status Date / Time meloxicam (From Mobic) Allergy Severe unknown Verified 12/03/24 14:09 pentazocine (From Talwin) Allergy Severe unknown Verified 12/03/24 14:09 metaxalone AdvReac Intermediate Nausea Verified 12/03/24 14:09 Family History Father Heart disease Mother CVA (cerebral vascular accident) Hypertension Breast cancer Surgical History History of back surgery History of left knee surgery History of appendectomy History of cardiac cath Social History Smoking Status: Never smoker how long ago did patient quit smokin alcohol intake: never ROS ROS Narrative negative except above Physical Exam Narrative Alert awake oriented x 3 no obvious distress no pallor no icterus no JVD s1s2 no murmurs lungs clear abdomen soft no organomegaly no edema Medical Records Data Medical Nutrition Assessment Dietitian: Malnutrition Criteria Met Start: 12/04/24 12:12 Freq: Status: Active Protocol: Document 12/04/24 12:12 SLA (Rec: 12/04/24 12:13 SLA [email or web address]) Nutrition Malnutrition Evidence of Yes Malnutrition Exists Malnutrition (severe Acute Illness/Injury ): Evidenced By Suboptimal Energy Intake (Severe),Weight Loss (Severe) Clinical Problem Acute Disease or Injury Related Malnutrition Etiology related to issues 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 Status Active Problem Recommendation Dietitian Will liberalize diet to Regular w/ glucerna shake tid Recommendations/ at meals - once po intake improves, can adjust to carb Changes controlled diet if indicated. Will continue to follow and monitor for changes in pt nutritional status and make additional rec as indicate. Lab / Micro Data 12/04/24 03:43 12/04/24 03:43 Labs: Laboratory Results - last 24 hr 12/03/24 14:24: Sodium 126 L, Potassium 4.2, Chloride 84 L, Carbon Dioxide 19.5 L, Anion Gap 23 H, BUN 113 H*, Creatinine 8.56 H*, Est GFR (MDRD) Non-Af 6 L, BUN/Creatinine Ratio UNABLE TO CALCULATE L, Glucose 58 L, Calcium 14.6 H*, Phosphorus 5.6 H, Magnesium 5.4 H*, Total Bilirubin 0.70, AST 29, ALT 25, Alkaline Phosphatase 91, Total Creatine Kinase 47, Total Protein 9.6 H, Albumin 3.6, Globulin 6.1 H, Albumin/Globulin Ratio 0.6 L, Lipase 57, Vitamin D 25-Hydroxy 43.3, TSH 0.591, PTH Intact 15 12/03/24 18:52: POC Glucose 49 L 12/03/24 19:27: POC Glucose 56 L 12/03/24 20:12: Sodium 127 L, Potassium 4.1, Chloride 88 L, Carbon Dioxide 18.5 L, Anion Gap 20 H, BUN 111 H*, Creatinine 8.45 H*, Estim Creat Clear Calc 7.08 L*, Est GFR (MDRD) Non-Af 6 L, BUN/Creatinine Ratio 13.1, Glucose 82, Serum Osmolality 324 H, Calcium 13.0 H* 12/03/24 20:30: POC Glucose 75 12/03/24 20:38: Urine Color Straw, Urine Clarity Clear, Urine pH 7.0, Ur Specific [place] 1.010, Urine Protein 30 H, Urine Glucose (UA) Normal, Urine Ketones Negative, Urine Occult Blood 250 H, Urine Nitrite Negative, Urine Bilirubin Negative, Urine Urobilinogen Normal, Ur Leukocyte Esterase 25 H, UrineRBC 10-25 SEEN, Urine WBC 0-5 SEEN, Ur Squamous Epith Cells 0-5 SEEN, Urine Bacteria RARE, Urine Mucus 0 SEEN, Urine Osmolality 336, Ur Random Microalbumin 101.0, Ur Random Sodium 56, Urine Creatinine 50.10, Microalb/Creat Ratio 201.6 H, Urine Potassium 25.6, Urine Chloride 46, Urine Urea Nitrogen 406 12/04/24 03:43: WBC 6.4, RBC 2.16 L, Hgb 7.9 L, Hct 21.3 L, MCV 98.6 H, MCH 36.6H, MCHC 37.1 H, RDW Std Deviation 41.4, RDW Coeff of Scotty 11.5 L, Plt Count 134 L, MPV 9.7, Immature Gran % (Auto) 0.500, Neut % (Auto) 75.9 H, Lymph % (Auto) 12.1 L, [place] % (Auto) 9.9, Eos % (Auto) 1.4, Baso % (Auto) 0.2, Absolute Neuts (auto) 4.9, Absolute Lymphs (auto) 0.77 L, Nucleated RBC % 0, Sodium 129 L, Potassium 4.4, Chloride 93 L, Carbon Dioxide 21.4, Anion Gap 14, BUN 112 H*, Creatinine 8.49 H*, Estim Creat Clear Calc 6.97 L*, Est GFR (MDRD) Non-Af 6 L, BUN/Creatinine Ratio 13.2, Glucose 72, Calcium 12.3 H, Triglycerides 103, Cholesterol 53, LDL Cholesterol, Calc 7, VLDL Cholesterol 21, HDL Cholesterol 25L, Cholesterol/HDL Ratio 2.09 12/04/24 05:50: POC Glucose 65 L 12/04/24 06:40: POC Glucose 142 H 12/04/24 12:42: POC Glucose 81 Imaging Radiology Impression Chest X-Ray 12/03/24 17:20 IMPRESSION: NO ACUTE FINDINGS. Reading Location: [facility] 12/04/24 8779 <Electronically signed by Alyssia Bah MD> Cosigner Signature (if applicable): CC: Dr. Luna Ashton, DO~ Signed [facility] Work Phone: 1(217) 115-370410-05-2025 Progress note Author Claire Mazariegos [facility] Note Date/Time December 04, 2024 1: 05pm [facility] Medical Records Department [address] [place] [address] Progress Note - Hospitalist 12/04/24 0827 MR#: [id number] Acct: [id number] Name: LINA VARGAS Rep #:[id number] : 1940 83 From: Claire Mazariegos MD PCP: Dr. Luna Ashton, DO Status:AD M IN Location: [place] [address] Reason for Visit Chief Complaint: N/V, generalized weakness Subjective Subjective Reportedly ate well yesterday but then was feeling nauseous overnight and also having reflux symptoms, it was reported that he has been Gaviscon and Tums everynight to the reflux symptoms. Today not eating or drinking well. Has been moretired since receiving Compazine for his nausea. Denying any shortness of breathor abdominal pain, reportedly did have a good bowel movement overnight, still making urine. Is still having reflux symptoms Objective Data Objective Data Vital Signs: Vital Signs Temp Pulse Resp BP Pulse Ox O2 Del Method 97.8 F 88 18 147/67 H 100 Room Air 12/04/24 02:09 12/04/24 02:09 12/04/24 02:09 12/04/24 02:09 12/04/24 02:09 12/04/24 02:09 Oxygen Delivery Method Room Air Weight: 74.8 kg Body Mass Index (BMI) 22.4 Intake & Output: Intake and Output for Last 24 Hours 12/02/24 12/03/24 12/04/24 23:59 23:59 23:59 Intake Total 2240 / 2240 1865 / 1865 Output Total 800 / 800 500 / 500 Balance 1440 / 1440 1365 / 1365 Lab / Micro Data 12/04/24 03:43 12/04/24 03:43 Labs: Laboratory Results - last 24 hr 12/03/24 14:24: WBC 8.0, RBC 2.96 L, Hgb 10.7 L, Hct 28.9 L, MCV 97.6 H, MCH 36.1 H, MCHC 37.0 H, RDW Std Deviation 40.3, RDW Coeff of [place] 11.3 L, Plt Count 206, MPV 9.6, Immature Gran % (Auto) 0.400, Neut % (Auto) 76.6 H, Lymph % (Auto)14.1 L, [place] % (Auto) 8.6, Eos % (Auto) 0.2, Baso % (Auto) 0.1, Absolute Neuts (auto) 6.2, Absolute Lymphs (auto) 1.13, Nucleated RBC % 0, Sodium 126 L, Potassium 4.2, Chloride 84 L, Carbon Dioxide 19.5 L, Anion Gap 23 H, BUN 113 H*,Creatinine 8.56 H*, Est GFR (MDRD) Non-Af 6 L, BUN/Creatinine Ratio UNABLE TO CALCULATE L, Glucose 58 L, Calcium 14.6 H*, Phosphorus 5.6 H, Magnesium 5.4 H*, Total Bilirubin 0.70, AST 29, ALT 25, Alkaline Phosphatase 91, Total Creatine Kinase 47, Total Protein 9.6 H, Albumin 3.6, Globulin 6.1 H, Albumin/Globulin Ratio 0.6 L, Lipase 57, Vitamin D 25-Hydroxy 43.3, TSH 0.591, PTH Intact 15 12/03/24 18:52: POC Glucose 49 L 12/03/24 19:27: POC Glucose 56 L 12/03/24 20:12: Sodium 127 L, Potassium 4.1, Chloride 88 L, Carbon Dioxide 18.5 L, Anion Gap 20 H, BUN 111 H*, Creatinine 8.45 H*, Estim Creat Clear Calc 7.08 L*, Est GFR (MDRD) Non-Af 6 L, BUN/Creatinine Ratio 13.1, Glucose 82, Serum Osmolality 324 H, Calcium 13.0 H* 12/03/24 20:30: POC Glucose 75 12/03/24 20:38: Urine Color Straw, Urine Clarity Clear, Urine pH 7.0, Ur Specific [place] 1.010, Urine Protein 30 H, Urine Glucose (UA) Normal, Urine Ketones Negative, Urine Occult Blood 250 H, Urine Nitrite Negative, Urine Bilirubin Negative, Urine Urobilinogen Normal, Ur Leukocyte Esterase 25 H, UrineRBC 10-25 SEEN, Urine WBC 0-5 SEEN, Ur Squamous Epith Cells 0-5 SEEN, Urine Bacteria RARE, Urine Mucus 0 SEEN, Urine Osmolality 336, Ur Random Microalbumin 101.0, Ur Random Sodium 56, Urine Creatinine 50.10, Microalb/Creat Ratio 201.6 H, Urine Potassium 25.6, Urine Chloride 46, Urine Urea Nitrogen 406 12/04/24 03:43: WBC 6.4, RBC 2.16 L, Hgb 7.9 L, Hct 21.3 L, MCV 98.6 H, MCH 36.6H, MCHC 37.1 H, RDW Std Deviation 41.4, RDW Coeff of [place] 11.5 L, Plt Count 134 L, MPV 9.7, Immature Gran % (Auto) 0.500, Neut % (Auto) 75.9 H, Lymph % (Auto) 12.1 L, [place] % (Auto) 9.9, Eos % (Auto) 1.4, Baso % (Auto) 0.2, Absolute Neuts (auto) 4.9, Absolute Lymphs (auto) 0.77 L, Nucleated RBC % 0, Sodium 129 L, Potassium 4.4, Chloride 93 L, Carbon Dioxide 21.4, Anion Gap 14, BUN 112 H*, Creatinine 8.49 H*, Estim Creat Clear Calc 6.97 L*, Est GFR (MDRD) Non-Af 6 L, BUN/Creatinine Ratio 13.2, Glucose 72, Calcium 12.3 H, Triglycerides 103, Cholesterol 53, LDL Cholesterol, Calc 7, VLDL Cholesterol 21, HDL Cholesterol 25L, Cholesterol/HDL Ratio 2.09 12/04/24 05:50: POC Glucose 65 L 12/04/24 06:40: POC Glucose 142 H Radiography Diagnostic Testing: Radiology Impression Chest X-Ray 12/03/24 17:20 IMPRESSION: NO ACUTE FINDINGS. Reading Location: [facility] Physical Exam Narrative General: A little bit tired but answering questions appropriately HEENT: Atraumatic, normocephalic Eyes: Anicteric, normal conjunctiva, extraocular movements grossly intact Neck: Supple Respiratory: Clear to auscultation bilaterally, normal respiratory effort Cardiovascular: Regular rate GI: Soft, nontender Extremities: No edema Musculoskeletal: Moving all extremities Neuro: No overt focal neurological deficits Skin: No rashes appreciated Psych: Cooperative Assessment & Plan Assessment/Plan (1) Acute renal failure: PLAN: Plan #Acute kidney failure -Patient with a creatinine around 1.5 at baseline with most recent value 9 months ago being 1.5 to - Presenting now with a creatinine of 8.56 - Bicarb 19.5 - Patient not hyperkalemic - Vitally stable and not volume overloaded - Patient alert, no seizure activity, confusion, altered mental status - Presently does not seem to have any indications for emergent dialysis - Suspect that patient's nausea and vomiting with very poor p.o. intake on top of continuing to take his valsartan/hydrochlorothiazide caused or largely contributed to his worsening renal failure - Patient reportedly had been urinating at home and even urinated this morning however in the ED unable to urinate and has 280 on bladder scan - Unclear if there has been an obstructive component to this as well given patient's report of urinating okay prior to coming in - Will have Monterroso catheter placed given patient reporting he is unable to urinate in the ED and bladder scan shows 280 - IV fluids - Will check UA given reports of suprapubic discomfort - Check urine studies - Kidney and bladder ultrasound -Check CK - Discussed with nephrology, nephrology consult placed -12/04: Despite sodium and calcium improving, kidney function has remained about the same, BUN this a.m. 112 with a creatinine of 8.49. UA with protein and occult blood, rare bacteria and does not seem UA is indicative of infection. FEUrea is 61.8 suggesting intrinsic renal disease. SPEP and UPEP pending, nephrology consulted, kidney and bladder ultrasound ordered, Monterroso catheter in place, patient has had 1300 output since admission yesterday evening. [place] lambda light chains ordered in addition to protein electrophoresis. Discussed with nephrology. # Hypercalcemia -Unclear if this is secondary to significant dehydration or if this could be a primary process associated with his renal failure and dehydration - Will hydrate with normal saline - Will check PTH and vitamin D - will check Phos - If no or minimal improvement can consider calcitonin and/or bisphosphonates - Will also check serum and urine protein electrophoresis given high calcium with kidney failure, high total protein and globulin, anemia and recent L1 fracture/bone pain in addition to generalized weakness - Chest x-ray also ordered to evaluate for any possible lesions -12/04: Improving with hydration, patient's Phos is high which is likely secondary to his renal failure, notably vitamin D is within normal limits at 43 and PTH is only 15. Suspect that patient's hypercalcemia is largely due to dehydration in addition to his hydrochlorothiazide in addition to multiple calcium based medications being taken daily for reflux but workup still pending. Protein electrophoresis pending and kappa lambda light chains ordered #Hyponatremia -Possibly secondary to dehydration but cannot say definitively, patient additionally on hydrochlorothiazide which will be held - Will order serum osmole's - Check urine studies - TSH - Lipid profile - Monitor I's and O's - Trend BMPs -12/04: Patient actually has elevated serum osmolality with an osmolality of 324 but no hyperglycemia or hyperlipidemia therefore suspect this is either due to his kidney failure with uremia or could possibly pseudohyponatremia due to a paraproteinemia +/- HCTZ, serum and urine protein electrophoresis pending as well as kappa lambda light chains. Notably sodium has slowly up trended to 129 with fluids and cessation of HCTZ, will continue present management while further workup underway # Macrocytic anemia -12/04: Patient with hemoglobin 10.7 on presentation with no previous baseline seen in our system, this a.m. hemoglobin 7.9 which is significant drop but no evidence of ongoing bleeding, suspect the patient was significantly volume depleted/dehydrated and was hemoconcentrated especially given drop in all 3 celllines. MCV is 98.6, will be ordering B12, iron panel, folate #GERD -Continue PPI -12/04: Reportedly patient's been having significant reflux symptoms for the pastyear, takes omeprazole at home and has been taking nightly calcium based products for reflux, patient's reflux may be contributing to his nausea, will place on IV PPI twice daily, avoiding calcium based agents #Hypertension -Will be holding valsartan/hydrochlorothiazide due to the above -12/04: Continue to hold valsartan/hydrochlorothiazide and monitor blood pressure, can consider alternative agent if necessary but will be careful to avoid hypotension #L1 compression fracture - Patient scheduled for kyphoplasty Thursday - Denies taking any NSAIDs or pain medications - Supportive care -12/04: Continue pain control and supportive care #Type 2 diabetes mellitus -Glucose checks and sliding scale insulin - Had somewhat low glucose of 59 on presentation - Will decrease long-acting insulin - Holding sitagliptin and metformin -12/04: Glucose has actually remained low, will discontinue long-acting insulin altogether Chronic medical problems and/or problems not being actively addressed during today's encounter: #Hypothyroidism -Continue Synthroid #DVT ppx: SCDs Claire Mazariegos MD Time spent in the patient's overall evaluation,decision-making process, review of diagnostic data, adjustment of management, discussion with other providers, nursing nursing and ancillary staff involved in patient's care documentation, 56Minutes Charges/Coding Visit Charges Inpatient E&M: 39420 Subs Hosp L3 12/04/24 1305 <Electronically signed by Claire Mazariegos MD> Cosigner Signature (if applicable): CC: ~ Signed [facility] Work Phone: [phone]) 618-466110-05-2025 Discharge summary Author Omari Luna [facility] Note Date/Time December 03, 2024 10 :13pm [facility] Medical Records Department [address] [place] [address] Emergency Department Summary 12/03/24 MR#: [id number] Acct: [id number] Name: LINA VARGAS Rep #:[id number] : 1940 83 From: Omari Luna MD PCP: Dr. Luna Ashton, DO Status:AD M IN Location: [place] [address] HPI HPI - GI History of Present Illness Chief Complaint: Nausea/Vomiting Informant: patient Nausea/Vomiting/Emesis GI Symptom: Positive for Nausea and Vomiting Onset: Days Severity: Mild Diarrhea/Melena/Hematochezia GI Symptom: Positive for Diarrhea Onset: Days Stool Quality: Positive for Loose Severity: Mild Associated Symptoms Associated Symptoms: Negative for Dysuria, Frequency, Hematuria or Urgency Narrative Narrative: 83-year-old male history of prior A-fib, diabetes, hypertension. Recently diagnosed with a lumbar L1 compression fracture. Upcoming kyphoplasty to be.. States that he feels dehydrated. He has had intermittent nausea and vomiting for weeks. He just feels generally weak. Denies any dysuria. No fever. No significant valve pain. Prior similar symptoms: No Recent Illness/Hospitalization: No PFSH PFSH Medical History Lumbar strain Low back pain Shingles (herpes zoster) polyneuropathy Acute urticaria Gastroenteritis GERD (gastroesophageal reflux disease) Hypothyroidism Home Medications ?Medication ?Instructions ?Recorded ?Last Taken ?Type flu vacc (65yr 60 mcg IM ONCE #0.5 mL 11/11 Unknown Clinic up)-MF59C(PF) 60 mcg(15 mcgx4)/0.5 mL IM syringe blood sugar diagnostic (True #100 ea 02/11/23 Unknown Rx Metrix Glucose Test Strip) blood-glucose meter #1 ea 02/11/23 Unknown Rx atorvastatin 20 mg tablet 20 mg PO QDAY #90 tabs 09/29 Unknown Rx lancets 30 gauge (Unilet Lancets) #100 ea 09/29/24 Unk nown Rx levothyroxine 100 mcg tablet 100 mcg PO DAILY #100 tab s 09/29/24 Unknown Rx metformin 500 mg tablet,extended 500 mg PO BID #180 ta bs 09/29/24 Unknown Rx release 24 hr omeprazole 20 mg capsule,delayed 20 mg PO DAILY #100 c aps 09/29/24 Unknown Rx release pen needle, diabetic 29 gauge x #100 ea 09/29/24 Unkno wn Rx 1/2 (CareFine Pen Needle) sitagliptin phosphate 100 mg 100 mg PO DAILY #100 tabs 09/29/24 Unknown Rx tablet (Januvia) valsartan 160 1 tab PO DAILY #90 TABLETS 0 09/29/24 Unknown Rx mg-hydrochlorothiazide 12.5 mg tablet insulin glargine 100 unit/mL (3 40 unit (0.4 mL) subcu t QHS #15 mL 11/08/24 Unknown Rx mL) subcutaneous pen (Lantus Solostar U-100 Insulin) ondansetron 4 mg disintegrating 4 mg PO Q8H PRN nausea and 11/29/24 Unknown Rx tablet vomiting #14 tabs Allergy/AdvReac Type Severity Reaction Status Date / Time meloxicam (From Mobic) Allergy Severe unknown Verified 12/03/24 14:09 pentazocine (From Talwin) Allergy Severe unknown Verified 12/03/24 14:09 metaxalone AdvReac Intermediate Nausea Verified 12/03/24 14:09 Family History Father Heart disease Mother CVA (cerebral vascular accident) Hypertension Breast cancer Surgical History History of back surgery History of left knee surgery History of appendectomy History of cardiac cath Social History Smoking Status: Never smoker how long ago did patient quit smokin alcohol intake: never ROS ROS ED ROS Narrative Back pain from L1 compression fracture. Nausea vomiting. No fever. No dysuria. No abdominal pain. Constitutional Constitutional ED: Denies chills or fever(s) ENT ENT ED: Denies ear pain Cardiovascular Cardiovascular: Denies chest pain Respiratory/Chest Respiratory/Chest: Denies cough or dyspnea Gastrointestinal Gastrointestinal: Reports diarrhea, nausea and vomiting; Denies abdominal pain, constipation or melena Genitourinary Genitourinary ED: Denies dysuria or hematuria Musculoskeletal Musculoskeletal: Reports back pain; Denies arthralgias Integumentary Denies abscess or Abrasions Neurologic Neurologic: Denies headache(s) Psychiatric Psychiatric: Denies anxiety Endocrine Endocrinology: Denies polydipsia Hematologic/Lymphatic Hematologic/Lymphatic: Denies easy bleeding, easy bruising or lymphadenopathy Allergic/Immunologic Allergic/Immunologic ED: Denies mouth swelling, tongue swelling or urticaria EXAM Physical Exam Narrative Exam Narrative: Is a 3-year-old male lying in bed vital signs stable afebrile. Pulse ox 97% room air no signs of hypoxia. Companied by his . H EENT exam pupils round react light. Dry mucous membranes. Neck nontender no JVD. Lungs clear to auscultation bilaterally. Heart regular rhythm rate about 90 no murmur. Chest wall ribs nontender. Abdomen soft, nontender, nondistended normal bowel sounds without peritoneal signs. No hernia or mass. No obstruction. No right upper or right lower quadrant tenderness. Currently no reproducible pain. Extremities moves all 4. Normal inventory control manager strength. Normal dorsi plantarflexion. No cauda equina. No saddle anesthesia. Normal strength. No edema. Neurologically he is awake and alert. Answering questions following commands. Const Vital Signs: 12/03/24 14:09 Temperature 96.5 F L Temperature Source Temporal Pulse Rate 88 Respiratory Rate 16 Blood Pressure 167/80 H Blood Pressure Mean 109 Pulse Ox 97 Oxygen Delivery Method Room Air Positive well nourished and well developed; Negative for contractures or unkempt General Appearance ED: well developed; Negative for unkempt, contractures or pallor HEENT Reports dry mucous membranes normocephalic and atraumatic Mouth ED: Yes dry mucous membranes Mouth: dry mucous membranes Eyes PERRL and EOMs intact bilaterally General Eye ED: Negative for pale conjunctiva or scleral icterus Neck no lymphadenopathy Cardio regular rate, regular rhythm, S1 normal heart sound, S2 normal heart sound and no murmurs Rate: Negative for bradycardia or tachycardic GI non-distended and no masses Inspection: Negative for abdominal distention Auscultation: normoactive bowel sounds Palpation: soft; Negative for tender, guarding, hernia, mass, pulsatile mass or rebound tenderness present Back/Spine no CVA tenderness General Back: Negative for CVA tenderness Cervical Spine: Negative for cervical spine tenderness Thoracic Spine / Upper Back: Negative for thoracic spinal tenderness Lumbar Spine / Lower Back: Negative for lumbar spinal tenderness Extremity full ROM General Extremety ED: Negative for edema or tenderness General Extremity: Negative for edema Neuro CN's II-XII intact bilaterally, moves all extremities and no sensory deficits noted Sensorium / Orientation: alert, oriented to person and oriented to place; Negative for orientation impaired, confused, lethargic or stuporous Motor Exam: strength 5/5 throughout Psych mental status grossly normal and thought process normal Appearance: Negative for unkempt Attitude: No agitated Mood & Affect: Negative for anxious or tearful Skin no wounds General Skin Exam: Negative for jaundice or pallor Lesions: no lesions Rashes: no rashes Trauma: Negative for abrasion Nails: Negative for discolored MDM MDM MDM Narrative Medical decision making narrative: 83-year-old male history of diabetes and prior appendectomy. With intermittent nausea and vomiting for weeks. He has an L1 compression fracture with pending kyphoplasty this week. Clinically feels dehydrated. Will be treated with IV fluids. Screening labs to be obtained. He did not want anything for nausea. He is having no abdominal pain and only needs imaging. Repeat exam patient is doing well. We discussed his test results. His acute kidney failure. He will be given a second bag of IV fluids. IV Zofran. He will be admitted to the hospital. The hospitalist on page. History & Record Review Discussion w/independent historian: Patient Additional record(s) reviewed:: Prior inpatient record, Prior outpatient record,Prior ED visit and Prior labs Lab Data Attestation: I reviewed the patient's lab results. Lab results narrative: CBC shows a white count at 8. H&H 10.7 and 28. Platelets of 206. Chemistry shows sodium 126. Gap of 23. Creatinine is returned at 8.56 consistent with acute kidney failure. Glucose 58. Calcium is elevated 14.6. Liver enzymes are unremarkable. Lipase is normal at 57. Labs: Laboratory Results - last 24 hr 12/03/24 14:24 WBC 8.0 RBC 2.96 L Hgb 10.7 L Hct 28.9 L MCV 97.6 H MCH 36.1 H MCHC 37.0 H RDW Std Deviation 40.3 RDW Coeff of Scotty 11.3 L Plt Count 206 MPV 9.6 Immature Gran % (Auto) 0.400 Neut % (Auto) 76.6 H Lymph % (Auto) 14.1 L [place] % (Auto) 8.6 Eos % (Auto) 0.2 Baso % (Auto) 0.1 Absolute Neuts (auto) 6.2 Absolute Lymphs (auto) 1.13 Nucleated RBC % 0 Sodium 126 L Potassium 4.2 Chloride 84 L Carbon Dioxide 19.5 L Anion Gap 23 H BUN 113 H* Creatinine 8.56 H* Est GFR (MDRD) Non-Af 6 L BUN/Creatinine Ratio UNABLE TO CALCULATE L Glucose 58 L Calcium 14.6 H* Total Bilirubin 0.70 AST 29 ALT 25 Alkaline Phosphatase 91 Total Protein 9.6 H Albumin 3.6 Globulin 6.1 H Albumin/Globulin Ratio 0.6 L Lipase 57 Discharge Plan Dx/Rx/DC Orders Clinical Impression: Acute renal failure, Nausea & vomiting, Acute hyponatremia, History of diabetesmellitus, Hypercalcemia, History of compression fracture of spine Disposition Disposition: Acute Care Hospital [facility] What to do if you have Problems For any increased pain, shortness of breath, bleeding, nausea or vomiting, chestpain, or any unexpected problems, contact your Primary Care Provider. Call [facility] ([phone]) or report to the closest Emergency Room. Call 911 if necessary. 12/03/242212 <Electronically signed by Omari Luna MD> Cosigner Signature (if applicable): CC: Dr. Luna Ashton, DO ~ Signed [facility] Work Phone: [phone] 233-915110-04-2025 History and physical note Author Claire Mazariegos [facility] Note Date/Time December 03, 2024 5: 31pm [facility] Medical Records Department [address] [place] [address] H&P Exam - Hospitalist 12/03/24 1703 MR#: [id number] Acct: [id number] Name: LINA VARGAS Rep #:[id number] : 1940 83 From: Claire Mazariegos MD PCP: Dr. Luna Ashton, DO Status:AD M IN Location: [facility] [id number] HPI - General General Date of Admission: 12/03/24 Date of Service: 12/03/24 Chief Complaint: N/V, generalized weakness HPI Narrative LINA VARGAS, is a 83-year-old male history of hypothyroidism, diabetes, GERD, hypertension who presented to [facility] ED 12/03/24 with nausea and vomiting. He was recently diagnosed with an L1 compression fracture and hasan upcoming kyphoplasty. Currently feeling dehydrated and has had intermittent nausea and vomiting for weeks. Also feeling generally weak and unwell. In the ED temp 96.5, heart rate 88, blood pressure 167/80, respiratory rate 16 pulse ox97% on room air. CBC with white count of 8, hemoglobin 10.7, platelet count 206. Sodium 126, bicarb 19.5, gap of 23, BUN 113 with a creatinine of 8.56, glucose 58 and calcium 14.6. Patient given 2 L of IV fluids and hospitalist consulted for admission for acute kidney failure. Patient evaluated bedside with present. They report that he was found to have a compression fractureat the end of September, since that time he is intermittently been having problems with nausea and vomiting, he is felt generally weak and had very poor p.o. intake specially for the past 2 weeks. Had been urinating with a little bit of burning at times and suprapubic discomfort however in the ED unable to urinate. Denies any diarrhea and reports he is actually been having problems with constipation. No chest pain or current shortness of breath, denies taking any NSAIDs for his back pain. [facility] Medical History Lumbar strain Low back pain Shingles (herpes zoster) polyneuropathy Acute urticaria Gastroenteritis GERD (gastroesophageal reflux disease) Hypothyroidism Home Medications ?Medication ?Instructions ?Recorded ?Last Taken ?Type blood sugar diagnostic (True #100 ea 02/11/23 Unknown Rx Metrix Glucose Test Strip) blood-glucose meter #1 ea 02/11/23 Unknown Rx atorvastatin 20 mg tablet 20 mg PO QDAY #90 tabs 09/2912/02/24 Rx lancets 30 gauge (Unilet Lancets) #100 ea 09/29/24 Unk nown Rx levothyroxine 100 mcg tablet 100 mcg PO DAILY #100 tab s 09/29/24 12/03/24 Rx metformin 500 mg tablet,extended 500 mg PO BID #180 ta bs 09/29/24 12/03/24 10:00 Rx release 24 hr omeprazole 20 mg capsule,delayed 20 mg PO DAILY #100 c aps 09/29/24 12/03/24 Rx release pen needle, diabetic 29 gauge x #100 ea 09/29/24 Unkno wn Rx 1/2 (CareFine Pen Needle) sitagliptin phosphate 100 mg 100 mg PO DAILY #100 tabs 09/29/24 12/03/24 Rx tablet (Januvia) valsartan 160 1 tab PO DAILY #90 TABLETS 0 09/29/24 12/03/24 Rx mg-hydrochlorothiazide 12.5 mg tablet ondansetron 4 mg disintegrating 4 mg PO Q8H PRN nausea and 11/29/24 12/02/24 Rx tablet vomiting #14 tabs insulin glargine 100 unit/mL (3 21 unit subcut QHS 06/2412/02/24 History mL) subcutaneous pen (Lantus Solostar U-100 Insulin) magnesium 250 mg tablet 250 mg PO QHS 12/03/2412/02 History Allergy/AdvReac Type Severity Reaction Status Date / Time meloxicam (From Mobic) Allergy Severe unknown Verified 12/03/24 14:09 pentazocine (From Talwin) Allergy Severe unknown Verified 12/03/24 14:09 metaxalone AdvReac Intermediate Nausea Verified 12/03/24 14:09 Family History Father Heart disease Mother CVA (cerebral vascular accident) Hypertension Breast cancer Surgical History History of back surgery History of left knee surgery History of appendectomy History of cardiac cath Social History Smoking Status: Never smoker how long ago did patient quit smokin alcohol intake: never ROS ROS Narrative General: Denies fever/chills HENT: stuffy nose, denies sore throat EYES: Denies changes in vision Resp: Denies cough, not presently feeling short of breath Cardiac: Denies chest pain GI: Has had intermittent nausea and vomiting with constipation and has had some suprapubic discomfort : Denies changes in urination Extremity: Denies swelling MSK: Generalized weakness with no focal complaints Neuro: Denies any numbness/tingling Heme: Denies any bleeding or bruising Skin: Denies rashes Psychiatric: No complaints voiced Vital Signs Vital Signs Vital Signs: 12/03/24 14:09 12/03/24 16:00 12/03/24 16:43 Temperature 96.5 F L 96.6 F L Temperature Source Temporal Pulse Rate 88 91 90 Respiratory Rate 16 20 H Blood Pressure 167/80 H 156/56 H 143/58 H Blood Pressure Mean 109 86 86 Pulse Ox 97 99 100 Oxygen Delivery Method Room Air Weight Weight: 83.9 kg Body Mass Index (BMI) 25.0 Physical Exam Narrative General: Alert, oriented, no apparent distress HEENT: Atraumatic, normocephalic Eyes: Anicteric, normal conjunctiva, extraocular movements grossly intact Neck: Supple Respiratory: Clear to auscultation bilaterally, normal respiratory effort Cardiovascular: Regular rate GI: Soft, does have some slight discomfort mostly in the suprapubic region Extremities: No edema Musculoskeletal: Moving all extremities Neuro: No overt focal neurological deficits Skin: No rashes appreciated Psych: Cooperative Results Lab / Micro Data 12/03/24 14:24 12/03/24 14:24 Labs: Laboratory Results - last 24 hr 12/03/24 14:24: WBC 8.0, RBC 2.96 L, Hgb 10.7 L, Hct 28.9 L, MCV 97.6 H, MCH 36.1 H, MCHC 37.0 H, RDW Std Deviation 40.3, RDW Coeff of Scotty 11.3 L, Plt Count 206, MPV 9.6, Immature Gran % (Auto) 0.400, Neut % (Auto) 76.6 H, Lymph % (Auto)14.1 L, [place] % (Auto) 8.6, Eos % (Auto) 0.2, Baso % (Auto) 0.1, Absolute Neuts (auto) 6.2, Absolute Lymphs (auto) 1.13, Nucleated RBC % 0, Sodium 126 L, Potassium 4.2, Chloride 84 L, Carbon Dioxide 19.5 L, Anion Gap 23 H, BUN 113 H*,Creatinine 8.56 H*, Est GFR (MDRD) Non-Af 6 L, BUN/Creatinine Ratio UNABLE TO CALCULATE L, Glucose 58 L, Calcium 14.6 H*, Total Bilirubin 0.70, AST 29, ALT 25, Alkaline Phosphatase 91, Total Protein 9.6 H, Albumin 3.6, Globulin 6.1 H, Albumin/Globulin Ratio 0.6 L, Lipase 57 Assessment & Plan Assessment/Plan (1) Acute renal failure: PLAN: Plan #Acute kidney failure -Patient with a creatinine around 1.5 at baseline with most recent value 9 months ago being 1.5 to - Presenting now with a creatinine of 8.56 - Bicarb 19.5 - Patient not hyperkalemic - Vitally stable and not volume overloaded - Patient alert, no seizure activity, confusion, altered mental status - Presently does not seem to have any indications for emergent dialysis - Suspect that patient's nausea and vomiting with very poor p.o. intake on top of continuing to take his valsartan/hydrochlorothiazide caused or largely contributed to his worsening renal failure - Patient reportedly had been urinating at home and even urinated this morning however in the ED unable to urinate and has 280 on bladder scan - Unclear if there has been an obstructive component to this as well given patient's report of urinating okay prior to coming in - Will have Monterroso catheter placed given patient reporting he is unable to urinate in the ED and bladder scan shows 280 - IV fluids - Will check UA given reports of suprapubic discomfort - Check urine studies - Kidney and bladder ultrasound -Check CK - Discussed with nephrology, nephrology consult placed # Hypercalcemia -Unclear if this is secondary to significant dehydration or if this could be a primary process associated with his renal failure and dehydration - Will hydrate with normal saline - Will check PTH and vitamin D - will check Phos - If no or minimal improvement can consider calcitonin and/or bisphosphonates - Will also check serum and urine protein electrophoresis given high calcium with kidney failure, high total protein and globulin, anemia and recent L1 fracture/bone pain in addition to generalized weakness - Chest x-ray also ordered to evaluate for any possible lesions #Hyponatremia -Possibly secondary to dehydration but cannot say definitively, patient additionally on hydrochlorothiazide which will be held - Will order serum osmole's - Check urine studies - TSH - Lipid profile - Monitor I's and O's - Trend BMPs #Hypertension -Will be holding valsartan/hydrochlorothiazide due to the above #L1 compression fracture - Patient scheduled for kyphoplasty Thursday - Denies taking any NSAIDs or pain medications - Supportive care #Type 2 diabetes mellitus -Glucose checks and sliding scale insulin - Had somewhat low glucose of 59 on presentation - Will decrease long-acting insulin - Holding sitagliptin and metformin #GERD -Continue PPI #Hypothyroidism -Continue Synthroid #DVT ppx: SCDs Claire Mazariegos MD Charges/Coding Visit Charges Inpatient E&M: 67801 Init Hosp L3 12/03/24 1731 <Electronically signed by Claire Mazariegos MD> Cosigner Signature (if applicable): CC: Dr. Luna Ashton DO; Dr. Claire Mazariegos MD~ Signed [facility] Work Phone: [phone]) 662-507210-04-2025 Radiology Diagnostic study note [facility] Imaging Services [address] [place], [place] [address] Chest PA and Lateral MR#: [id number] Acct: [id number] Name: LINA VARGAS Rep #: [id number] : 1940 M 83 From: Naveed Dalton MD PCP: Dr. Luna Ashton DO Status: AD M IN Study:Chest PA and Lateral Date of Exam: 12/03/24 Exam# [id number] Ordering Dr: Gordon Luna MD PROCEDURE: CHEST PA AND LATERAL 12/03/2024 REASON FOR EXAM: WEAKNESS AND HYPERCALCEMIA TECHNIQUE: Procedure Code: RADCXR Modality: DX Procedure: CHEST PA AND LATERAL COMPARISON: None available. FINDINGS: Hardware: None. Heart: The heart size is normal. Mediastinum: The mediastinal contour is unremarkable. Lungs: The lungs are clear. Bones: The bones are unremarkable. RAD/Chest PA and Lateral IMPRESSION: NO ACUTE FINDINGS. Reading Location: [facility] CC: Dr. Luna Ashton DO; Dr. Omari Luna MD ~ Data Entry Email Processor: Signed [facility]10-04-2025 History and physical note [facility] Medical Records Department [address] [place] [address] H&P Exam - Hospitalist 12/03/24 1703 MR#: [id number] Acct: [id number] Name: LINA VARGAS Rep #:[id number] : 1940 83 From: Claire Mazariegos MD PCP: Dr. Luna Ashton, DO Status:AD M IN Location: [facility] [id number] HPI - General General Date of Admission: 12/03/24 Date of Service: 12/03/24 Chief Complaint: N/V, generalized weakness HPI Narrative LINA VARGAS, is a 83-year-old male history of hypothyroidism, diabetes, GERD, hypertension who presented to [facility] ED 12/03/24 with nausea and vomiting. He was recently diagnosed with an L1 compression fracture and hasan upcoming kyphoplasty. Currently feeling dehydrated and has had intermittent nausea and vomiting for weeks. Also feeling generally weak and unwell. In the ED temp 96.5, heart rate 88, blood pressure 167/80, respiratory rate 16 pulse ox97% on room air. CBC withwhite count of 8, hemoglobin 10.7, platelet count 206. Sodium 126, bicarb 19.5, gap of 23, BUN 113 with a creatinine of 8.56, glucose 58 and calcium 14.6. Patient given 2 L of IV fluids and hospitalist consulted for admission for acute kidney failure. Patient evaluated bedside with present. They report that he was found to have a compression fractureat the end of September, since that time he is intermittently been having problems with nausea and vomiting, he is felt generally weak and had very poor p.o. intake specially for the past 2 weeks. Had been urinating with a little bit of burning at times and suprapubic discomfort however in the ED unable to urinate. Denies any diarrhea and reports he is actually been having problems with constipation. No chest pain or current shortness of breath, denies taking any NSAIDs for his back pain. [facility] Medical History Lumbar strain Low back pain Shingles (herpes zoster) polyneuropathy Acute urticaria Gastroenteritis GERD (gastroesophageal reflux disease) Hypothyroidism Home Medications ?Medication ?Instructions ?Recorded ?Last Taken ?Type blood sugar diagnostic (True #100 ea 02/11/23 Unknown Rx Metrix Glucose Test Strip) blood-glucose meter #1 ea 02/11/23 Unknown Rx atorvastatin 20 mg tablet 20 mg PO QDAY #90 tabs 09/2912/02/24 Rx lancets 30 gauge (Unilet Lancets) #100 ea 09/29/24 Unk nown Rx levothyroxine 100 mcg tablet 100 mcg PO DAILY #100 tab s 09/29/24 12/03/24 Rx metformin 500 mg tablet,extended 500 mg PO BID #180 ta bs 09/29/24 12/03/24 10:00 Rx release 24 hr omeprazole 20 mg capsule,delayed 20 mg PO DAILY #100 c aps 09/29/24 12/03/24 Rx release pen needle, diabetic 29 gauge x #100 ea 09/29/24 Unkno wn Rx 1/2 (CareFine Pen Needle) sitagliptin phosphate 100 mg 100 mg PO DAILY #100 tabs 09/29/24 12/03/24 Rx tablet (Januvia) valsartan 160 1 tab PO DAILY #90 TABLETS 0 09/29/24 12/03/24 Rx mg-hydrochlorothiazide 12.5 mg tablet ondansetron 4 mg disintegrating 4 mg PO Q8H PRN nausea and 11/29/24 12/02/24 Rx tablet vomiting #14 tabs insulin glargine 100 unit/mL (3 21 unit subcut QHS 06/2412/02/24 History mL) subcutaneous pen (Lantus Solostar U-100 Insulin) magnesium 250 mg tablet 250 mg PO QHS 12/03/2412/02 History Allergy/AdvReac Type Severity Reaction Status Date / Time meloxicam (From Mobic) Allergy Severe unknown Verified 12/03/24 14:09 pentazocine (From Talwin) Allergy Severe unknown Verified 12/03/24 14:09 metaxalone AdvReac Intermediate Nausea Verified 12/03/24 14:09 Family History Father Heart disease Mother CVA (cerebral vascular accident) Hypertension Breast cancer Surgical History History of back surgery History of left knee surgery History of appendectomy History of cardiac cath Social History Smoking Status: Never smoker how long ago did patient quit smokin alcohol intake: never ROS ROS Narrative General: Denies fever/chills HENT: stuffy nose, denies sore throat EYES: Denies changes in vision Resp: Denies cough, not presently feeling short of breath Cardiac: Denies chest pain GI: Has had intermittent nausea and vomiting with constipation and has had some suprapubic discomfort : Denies changes in urination Extremity: Denies swelling MSK: Generalized weakness with no focal complaints Neuro: Denies any numbness/tingling Heme: Denies any bleeding or bruising Skin: Denies rashes Psychiatric: No complaints voiced Vital Signs Vital Signs Vital Signs: 12/03/24 14:09 12/03/24 16:00 12/03/24 16:43 Temperature 96.5 F L 96.6 F L Temperature Source Temporal Pulse Rate 88 91 90 Respiratory Rate 16 20 H Blood Pressure 167/80 H 156/56 H 143/58 H Blood Pressure Mean 109 86 86 Pulse Ox 97 99 100 Oxygen Delivery Method Room Air Weight Weight: 83.9 kg Body Mass Index (BMI) 25.0 Physical Exam Narrative General: Alert, oriented, no apparent distress HEENT: Atraumatic, normocephalic Eyes: Anicteric, normal conjunctiva, extraocular movements grossly intact Neck: Supple Respiratory: Clear to auscultation bilaterally, normal respiratory effort Cardiovascular: Regular rate GI: Soft, does have some slight discomfort mostly in the suprapubic region Extremities: No edema Musculoskeletal: Moving all extremities Neuro: No overt focal neurological deficits Skin: No rashes appreciated Psych: Cooperative Results Lab / Micro Data 12/03/24 14:24 12/03/24 14:24 Labs: Laboratory Results - last 24 hr 12/03/24 14:24: WBC 8.0, RBC 2.96 L, Hgb 10.7 L, Hct 28.9 L, MCV 97.6 H, MCH 36.1 H, MCHC 37.0 H, RDW Std Deviation 40.3, RDW Coeff of Scotty 11.3 L, Plt Count 206, MPV 9.6, Immature Gran % (Auto) 0.400, Neut % (Auto) 76.6 H, Lymph % (Auto)14.1 L, [place] % (Auto) 8.6, Eos % (Auto) 0.2, Baso % (Auto) 0.1, Absolute Neuts (auto) 6.2, Absolute Lymphs (auto) 1.13, Nucleated RBC % 0, Sodium 126 L, Potassium4.2, Chloride 84 L, Carbon Dioxide 19.5 L, Anion Gap 23 H, BUN 113 H*,Creatinine 8.56 H*, Est GFR (MDRD) Non-Af 6 L, BUN/Creatinine Ratio UNABLE TO CALCULATE L, Glucose 58 L, Calcium 14.6 H*, Total Bilirubin 0.70, AST 29, ALT 25, Alkaline Phosphatase 91, Total Protein 9.6 H, Albumin 3.6, Globulin 6.1 H, Albumin/Globulin Ratio 0.6 L, Lipase 57 Assessment & Plan Assessment/Plan (1) Acute renal failure: PLAN: Plan #Acute kidney failure -Patient with a creatinine around 1.5 at baseline with most recent value 9 months ago being 1.5 to - Presenting now with a creatinine of 8.56 - Bicarb 19.5 - Patient not hyperkalemic - Vitally stable and not volume overloaded - Patient alert, no seizure activity, confusion, altered mental status - Presently does not seem to have any indications for emergent dialysis - Suspect that patient's nausea and vomiting with very poor p.o. intake on top of continuing to take his valsartan/hydrochlorothiazide caused or largely contributed to his worsening renal failure - Patient reportedly had been urinating at home and even urinated this morning however in the ED unable to urinate and has 280 on bladder scan - Unclear if there has been an obstructive component to this as well given patient's report of urinating okay prior to coming in - Will have [place] catheter placed given patient reporting he is unable to urinate in the ED and bladder scan shows 280 - IV fluids - Will check UA given reports of suprapubic discomfort - Check urine studies - Kidney and bladder ultrasound -Check CK - Discussed with nephrology, nephrology consult placed # Hypercalcemia -Unclear if this is secondary to significant dehydration or if this could be a primary process associated with his renal failure and dehydration - Will hydrate with normal saline - Will check PTH and vitamin D - will check Phos - If no or minimal improvement can consider calcitonin and/or bisphosphonates - Will also check serum and urine protein electrophoresis given high calcium with kidney failure, high total protein and globulin, anemia and recent L1 fracture/bone pain in addition to generalized weakness - Chest x-ray also ordered to evaluate for any possible lesions #Hyponatremia -Possibly secondary to dehydration but cannot say definitively, patient additionally on hydrochlorothiazide which will be held - Will order serum osmole's - Check urine studies - TSH - Lipid profile - Monitor I's and O's - Trend BMPs #Hypertension -Will be holding valsartan/hydrochlorothiazide due to the above #L1 compression fracture - Patient scheduled for kyphoplasty Thursday - Denies taking any NSAIDs or pain medications - Supportive care #Type 2 diabetes mellitus -Glucose checks and sliding scale insulin - Had somewhat low glucose of 59 on presentation - Will decrease long-acting insulin - Holding sitagliptin and metformin #GERD -Continue PPI #Hypothyroidism -Continue Synthroid #DVT ppx: SCDs Claire Mazariegos MD Charges/Coding Visit Charges Inpatient E&M: 27755 Init Hosp L3 12/03/24 1731 Cosigner Signature (if applicable): CC: Dr. Luna Ashton DO; Dr. Claire Mazariegos MD~ Signed [facility]10-04-2025 Discharge summary [facility] Medical Records Department [address] [place] [address] Emergency Department Summary 12/03/24 MR#: [id number] Acct: [id number] Name: LINA VARGAS Rep #:[id number] : 1940 83 From: Omari Luna MD PCP: Dr. Luna Ashton DO Status:AD M IN Location: [place] [address] HPI HPI - GI History of Present Illness Chief Complaint: Nausea/Vomiting Informant: patient Nausea/Vomiting/Emesis GI Symptom: Positive for Nausea and Vomiting Onset: Days Severity: Mild Diarrhea/Melena/Hematochezia GI Symptom: Positive for Diarrhea Onset: Days Stool Quality: Positive for Loose Severity: Mild Associated Symptoms Associated Symptoms: Negative for Dysuria, Frequency, Hematuria or Urgency Narrative Narrative: 83-year-old male history of prior A-fib, diabetes, hypertension. Recently diagnosed with a lumbar L1 compression fracture. Upcoming kyphoplasty to be.. States that he feels dehydrated. He has had intermittent nausea and vomiting for weeks. He just feels generally weak. Denies any dysuria. No fever.No significant valve pain. Prior similar symptoms: No Recent Illness/Hospitalization: No PFSH PFSH Medical History Lumbar strain Low back pain Shingles (herpes zoster) polyneuropathy Acute urticaria Gastroenteritis GERD (gastroesophageal reflux disease) Hypothyroidism Home Medications ?Medication ?Instructions ?Recorded ?Last Taken ?Type flu vacc (65yr 60 mcg IM ONCE #0.5 mL 11/11 Unknown Clinic up)-MF59C(PF) 60 mcg(15 mcgx4)/0.5 mL IM syringe blood sugar diagnostic (True #100 ea 02/11/23 Unknown Rx Metrix Glucose Test Strip) blood-glucose meter #1 ea 02/11/23 Unknown Rx atorvastatin 20 mg tablet 20 mg PO QDAY #90 tabs 09/29 Unknown Rx lancets 30 gauge (Unilet Lancets) #100 ea 09/29/24 Unk nown Rx levothyroxine 100 mcg tablet 100 mcg PO DAILY #100 tab s 09/29/24 Unknown Rx metformin 500 mg tablet,extended 500 mg PO BID #180 ta bs 09/29/24 Unknown Rx release 24 hr omeprazole 20 mg capsule,delayed 20 mg PO DAILY #100 c aps 09/29/24 Unknown Rx release pen needle, diabetic 29 gauge x #100 ea 09/29/24 Unkno wn Rx 1/2 (CareFine Pen Needle) sitagliptin phosphate 100 mg 100 mg PO DAILY #100 tabs 09/29/24 Unknown Rx tablet (Januvia) valsartan 160 1 tab PO DAILY #90 TABLETS 0 09/29/24 Unknown Rx mg-hydrochlorothiazide 12.5 mg tablet insulin glargine 100 unit/mL (3 40 unit (0.4 mL) subcu t QHS #15 mL 11/08/24 Unknown Rx mL) subcutaneous pen (Lantus Solostar U-100 Insulin) ondansetron 4 mg disintegrating 4 mg PO Q8H PRN nausea and 11/29/24 Unknown Rx tablet vomiting #14 tabs Allergy/AdvReac Type Severity Reaction Status Date / Time meloxicam (From Mobmarcellus) Allergy Severe unknown Verified 12/03/24 14:09 pentazocine (From Eliz) Allergy Severe unknown Verified 12/03/24 14:09 metaxalone AdvReac Intermediate Nausea Verified 12/03/24 14:09 Family History Father Heart disease Mother CVA (cerebral vascular accident) Hypertension Breast cancer Surgical History History of back surgery History of left knee surgery History of appendectomy History of cardiac cath Social History Smoking Status: Never smoker how long ago did patient quit smokin alcohol intake: never ROS ROS ED ROS Narrative Back pain from L1 compression fracture. Nausea vomiting. No fever. No dysuria. No abdominal pain. Constitutional Constitutional ED: Denies chills or fever(s) ENT ENT ED: Denies ear pain Cardiovascular Cardiovascular: Denies chest pain Respiratory/Chest Respiratory/Chest: Denies cough or dyspnea Gastrointestinal Gastrointestinal: Reports diarrhea, nausea and vomiting; Denies abdominal pain, constipation or melena Genitourinary Genitourinary ED: Denies dysuria or hematuria Musculoskeletal Musculoskeletal: Reports back pain; Denies arthralgias Integumentary Denies abscess or Abrasions Neurologic Neurologic: Denies headache(s) Psychiatric Psychiatric: Denies anxiety Endocrine Endocrinology: Denies polydipsia Hematologic/Lymphatic Hematologic/Lymphatic: Denies easy bleeding, easy bruising or lymphadenopathy Allergic/Immunologic Allergic/Immunologic ED: Denies mouth swelling, tongue swelling or urticaria EXAM Physical Exam Narrative Exam Narrative: Is a 3-year-old male lying in bed vital signs stable afebrile. Pulse ox 97% room air no signs of hypoxia. Companied by his . H EENT exam pupils round react light. Dry mucous membranes. Neck nontender no JVD. Lungs clear to auscultation bilaterally. Heart regular rhythm rate about 90 no murmur. Chest wall ribs nontender. Abdomen soft, nontender, nondistended normal bowel sounds without peritoneal signs. No hernia or mass. No obstruction. No right upper or right lower quadrant tenderness. Currently no reproducible pain. Extremities moves all 4. Normal inventory control manager strength. Normal dorsi plantarflexion. No cauda equina. No saddle anesthesia. Normal strength. No edema. Neurologically he is awake and alert. Answering questions following commands. Const Vital Signs: 12/03/24 14:09 Temperature 96.5 F L Temperature Source Temporal Pulse Rate 88 Respiratory Rate 16 Blood Pressure 167/80 H Blood Pressure Mean 109 Pulse Ox 97 Oxygen Delivery Method Room Air Positive well nourished and well developed; Negative for contractures or unkempt General Appearance ED: well developed; Negative for unkempt, contractures or pallor HEENT Reports dry mucous membranes normocephalic and atraumatic Mouth ED: Yes dry mucous membranes Mouth: dry mucous membranes Eyes PERRL and EOMs intact bilaterally General Eye ED: Negative for pale conjunctiva or scleral icterus Neck no lymphadenopathy Cardio regular rate, regular rhythm, S1 normal heart sound, S2 normal heart sound and no murmurs Rate: Negative for bradycardia or tachycardic GI non-distended and no masses Inspection: Negative for abdominal distention Auscultation: normoactive bowel sounds Palpation: soft; Negative for tender, guarding, hernia, mass, pulsatile mass or rebound tenderness present Back/Spine no CVA tenderness General Back: Negative for CVA tenderness Cervical Spine: Negative for cervical spine tenderness Thoracic Spine / Upper Back: Negative for thoracic spinal tenderness Lumbar Spine / Lower Back: Negative for lumbar spinal tenderness Extremity full ROM General Extremety ED: Negative for edema or tenderness General Extremity: Negative for edema Neuro CN's II-XII intact bilaterally, moves all extremities and no sensory deficits noted Sensorium / Orientation: alert, oriented to person and oriented to place; Negative for orientation impaired, confused, lethargic or stuporous Motor Exam: strength 5/5 throughout Psych mental status grossly normal and thought process normal Appearance: Negative for unkempt Attitude: No agitated Mood & Affect: Negative for anxious or tearful Skin no wounds General Skin Exam: Negative for jaundice or pallor Lesions: no lesions Rashes: no rashes Trauma: Negative for abrasion Nails: Negative for discolored MDM MDM MDM Narrative Medical decision making narrative: 83-year-old male history of diabetes and prior appendectomy. With intermittent nausea and vomiting for weeks. He has an L1 compression fracture with pending kyphoplasty this week. Clinically feels dehydrated. Will be treated with IV fluids. Screening labs to be obtained. He did not want anything for nausea. He is having no abdominal pain and only needs imaging. Repeat exam patient is doing well. We discussed his test results. His acute kidney failure. He willbe given a second bag of IV fluids. IV Zofran. He will be admitted to the hospital. The [facility] page. History & Record Review Discussion w/independent historian: Patient Additional record(s) reviewed:: Prior inpatient record, Prior outpatient record,Prior ED visit and Prior labs Lab Data Attestation: I reviewed the patient's lab results. Lab results narrative: CBC shows a white count at 8. H&H 10.7 and 28. Platelets of 206. Chemistry shows sodium 126. Gap of 23. Creatinine is returned at 8.56 consistent with acute kidney failure. Glucose 58. Calcium is elevated 14.6. Liver enzymes are unremarkable. Lipase is normal at 57. Labs: Laboratory Results - last 24 hr 12/03/24 14:24 WBC 8.0 RBC 2.96 L Hgb 10.7 L Hct 28.9 L MCV 97.6 H MCH 36.1 H MCHC 37.0 H RDW Std Deviation 40.3 RDW Coeff of Scotty 11.3 L Plt Count 206 MPV 9.6 Immature Gran % (Auto) 0.400 Neut % (Auto) 76.6 H Lymph % (Auto) 14.1 L [place] % (Auto) 8.6 Eos % (Auto) 0.2 Baso % (Auto) 0.1 Absolute Neuts (auto) 6.2 Absolute Lymphs (auto) 1.13 Nucleated RBC % 0 Sodium 126 L Potassium 4.2 Chloride 84 L Carbon Dioxide 19.5 L Anion Gap 23 H BUN 113 H* Creatinine 8.56 H* Est GFR (MDRD) Non-Af 6 L BUN/Creatinine Ratio UNABLE TO CALCULATE L Glucose 58 L Calcium 14.6 H* Total Bilirubin 0.70 AST 29 ALT 25 Alkaline Phosphatase 91 Total Protein 9.6 H Albumin 3.6 Globulin 6.1 H Albumin/Globulin Ratio 0.6 L Lipase 57 Discharge Plan Dx/Rx/DC Orders Clinical Impression: Acute renal failure, Nausea & vomiting, Acute hyponatremia, History of diabetesmellitus, Hypercalcemia, History of compression fracture of spine Disposition Disposition: [facility] What to do if you have Problems For any increased pain, shortness of breath, bleeding, nausea or vomiting, chestpain, or any unexpected problems, contact your Primary Care Provider. Call [facility] ([phone]) or report tothe closest Emergency Room. Call 911 if necessary. 12/03/243 Cosigner Signature (if applicable): CC: Dr. Luna Ashton, DO ~ Signed [facility]10-04-2025 Discharge summary Author Omari Luna [facility] Note Date/Time December 03, 2024 10 :13pm [facility] Medical Records Department [address] [place] [address] Emergency Department Summary 12/03/24 MR#: [id number] Acct: [id number] Name: LINA VARGAS Rep #:[id number] : 1940 83 From: Omari Luna MD PCP: Dr. Luna Ashton, DO Status:AD M IN Location: [place] [address] HPI HPI - GI History of Present Illness Chief Complaint: Nausea/Vomiting Informant: patient Nausea/Vomiting/Emesis GI Symptom: Positive for Nausea and Vomiting Onset: Days Severity: Mild Diarrhea/Melena/Hematochezia GI Symptom: Positive for Diarrhea Onset: Days Stool Quality: Positive for Loose Severity: Mild Associated Symptoms Associated Symptoms: Negative for Dysuria, Frequency, Hematuria or Urgency Narrative Narrative: 83-year-old male history of prior A-fib, diabetes, hypertension. Recently diagnosed with a lumbar L1 compression fracture. Upcoming kyphoplasty to be.. States that he feels dehydrated. He has had intermittent nausea and vomiting for weeks. He just feels generally weak. Denies any dysuria. No fever. No significant valve pain. Prior similar symptoms: No Recent Illness/Hospitalization: No PFSH PFSH Medical History Lumbar strain Low back pain Shingles (herpes zoster) polyneuropathy Acute urticaria Gastroenteritis GERD (gastroesophageal reflux disease) Hypothyroidism Home Medications ?Medication ?Instructions ?Recorded ?Last Taken ?Type flu vacc (65yr 60 mcg IM ONCE #0.5 mL 11/11 Unknown Clinic up)-MF59C(PF) 60 mcg(15 mcgx4)/0.5 mL IM syringe blood sugar diagnostic (True #100 ea 02/11/23 Unknown Rx Metrix Glucose Test Strip) blood-glucose meter #1 ea 02/11/23 Unknown Rx atorvastatin 20 mg tablet 20 mg PO QDAY #90 tabs 09/29 Unknown Rx lancets 30 gauge (Unilet Lancets) #100 ea 09/29/24 Unk nown Rx levothyroxine 100 mcg tablet 100 mcg PO DAILY #100 tab s 09/29/24 Unknown Rx metformin 500 mg tablet,extended 500 mg PO BID #180 ta bs 09/29/24 Unknown Rx release 24 hr omeprazole 20 mg capsule,delayed 20 mg PO DAILY #100 c aps 09/29/24 Unknown Rx release pen needle, diabetic 29 gauge x #100 ea 09/29/24 Unkno wn Rx 1/2 (CareFine Pen Needle) sitagliptin phosphate 100 mg 100 mg PO DAILY #100 tabs 09/29/24 Unknown Rx tablet (Januvia) valsartan 160 1 tab PO DAILY #90 TABLETS 0 09/29/24 Unknown Rx mg-hydrochlorothiazide 12.5 mg tablet insulin glargine 100 unit/mL (3 40 unit (0.4 mL) subcu t QHS #15 mL 11/08/24 Unknown Rx mL) subcutaneous pen (Lantus Solostar U-100 Insulin) ondansetron 4 mg disintegrating 4 mg PO Q8H PRN nausea and 11/29/24 Unknown Rx tablet vomiting #14 tabs Allergy/AdvReac Type Severity Reaction Status Date / Time meloxicam (From Mobic) Allergy Severe unknown Verified 12/03/24 14:09 pentazocine (From Talwin) Allergy Severe unknown Verified 12/03/24 14:09 metaxalone AdvReac Intermediate Nausea Verified 12/03/24 14:09 Family History Father Heart disease Mother CVA (cerebral vascular accident) Hypertension Breast cancer Surgical History History of back surgery History of left knee surgery History of appendectomy History of cardiac cath Social History Smoking Status: Never smoker how long ago did patient quit smokin alcohol intake: never ROS ROS ED ROS Narrative Back pain from L1 compression fracture. Nausea vomiting. No fever. No dysuria. No abdominal pain. Constitutional Constitutional ED: Denies chills or fever(s) ENT ENT ED: Denies ear pain Cardiovascular Cardiovascular: Denies chest pain Respiratory/Chest Respiratory/Chest: Denies cough or dyspnea Gastrointestinal Gastrointestinal: Reports diarrhea, nausea and vomiting; Denies abdominal pain, constipation or melena Genitourinary Genitourinary ED: Denies dysuria or hematuria Musculoskeletal Musculoskeletal: Reports back pain; Denies arthralgias Integumentary Denies abscess or Abrasions Neurologic Neurologic: Denies headache(s) Psychiatric Psychiatric: Denies anxiety Endocrine Endocrinology: Denies polydipsia Hematologic/Lymphatic Hematologic/Lymphatic: Denies easy bleeding, easy bruising or lymphadenopathy Allergic/Immunologic Allergic/Immunologic ED: Denies mouth swelling, tongue swelling or urticaria EXAM Physical Exam Narrative Exam Narrative: Is a 3-year-old male lying in bed vital signs stable afebrile. Pulse ox 97% room air no signs of hypoxia. Companied by his . H EENT exam pupils round react light. Dry mucous membranes. Neck nontender no JVD. Lungs clear to auscultation bilaterally. Heart regular rhythm rate about 90 no murmur. Chest wall ribs nontender. Abdomen soft, nontender, nondistended normal bowel sounds without peritoneal signs. No hernia or mass. No obstruction. No right upper or right lower quadrant tenderness. Currently no reproducible pain. Extremities moves all 4. Normal inventory control manager strength. Normal dorsi plantarflexion. No cauda equina. No saddle anesthesia. Normal strength. No edema. Neurologically he is awake and alert. Answering questions following commands. Const Vital Signs: 12/03/24 14:09 Temperature 96.5 F L Temperature Source Temporal Pulse Rate 88 Respiratory Rate 16 Blood Pressure 167/80 H Blood Pressure Mean 109 Pulse Ox 97 Oxygen Delivery Method Room Air Positive well nourished and well developed; Negative for contractures or unkempt General Appearance ED: well developed; Negative for unkempt, contractures or pallor HEENT Reports dry mucous membranes normocephalic and atraumatic Mouth ED: Yes dry mucous membranes Mouth: dry mucous membranes Eyes PERRL and EOMs intact bilaterally General Eye ED: Negative for pale conjunctiva or scleral icterus Neck no lymphadenopathy Cardio regular rate, regular rhythm, S1 normal heart sound, S2 normal heart sound and no murmurs Rate: Negative for bradycardia or tachycardic GI non-distended and no masses Inspection: Negative for abdominal distention Auscultation: normoactive bowel sounds Palpation: soft; Negative for tender, guarding, hernia, mass, pulsatile mass or rebound tenderness present Back/Spine no CVA tenderness General Back: Negative for CVA tenderness Cervical Spine: Negative for cervical spine tenderness Thoracic Spine / Upper Back: Negative for thoracic spinal tenderness Lumbar Spine / Lower Back: Negative for lumbar spinal tenderness Extremity full ROM General Extremety ED: Negative for edema or tenderness General Extremity: Negative for edema Neuro CN's II-XII intact bilaterally, moves all extremities and no sensory deficits noted Sensorium / Orientation: alert, oriented to person and oriented to place; Negative for orientation impaired, confused, lethargic or stuporous Motor Exam: strength 5/5 throughout Psych mental status grossly normal and thought process normal Appearance: Negative for unkempt Attitude: No agitated Mood & Affect: Negative for anxious or tearful Skin no wounds General Skin Exam: Negative for jaundice or pallor Lesions: no lesions Rashes: no rashes Trauma: Negative for abrasion Nails: Negative for discolored MDM MDM MDM Narrative Medical decision making narrative: 83-year-old male history of diabetes and prior appendectomy. With intermittent nausea and vomiting for weeks. He has an L1 compression fracture with pending kyphoplasty this week. Clinically feels dehydrated. Will be treated with IV fluids. Screening labs to be obtained. He did not want anything for nausea. He is having no abdominal pain and only needs imaging. Repeat exam patient is doing well. We discussed his test results. His acute kidney failure. He will be given a second bag of IV fluids. IV Zofran. He will be admitted to the hospital. The hospitalist on page. History & Record Review Discussion w/independent historian: Patient Additional record(s) reviewed:: Prior inpatient record, Prior outpatient record,Prior ED visit and Prior labs Lab Data Attestation: I reviewed the patient's lab results. Lab results narrative: CBC shows a white count at 8. H&H 10.7 and 28. Platelets of 206. Chemistry shows sodium 126. Gap of 23. Creatinine is returned at 8.56 consistent with acute kidney failure. Glucose 58. Calcium is elevated 14.6. Liver enzymes are unremarkable. Lipase is normal at 57. Labs: Laboratory Results - last 24 hr 12/03/24 14:24 WBC 8.0 RBC 2.96 L Hgb 10.7 L Hct 28.9 L MCV 97.6 H MCH 36.1 H MCHC 37.0 H RDW Std Deviation 40.3 RDW Coeff of Scotty 11.3 L Plt Count 206 MPV 9.6 Immature Gran % (Auto) 0.400 Neut % (Auto) 76.6 H Lymph % (Auto) 14.1 L [place] % (Auto) 8.6 Eos % (Auto) 0.2 Baso % (Auto) 0.1 Absolute Neuts (auto) 6.2 Absolute Lymphs (auto) 1.13 Nucleated RBC % 0 Sodium 126 L Potassium 4.2 Chloride 84 L Carbon Dioxide 19.5 L Anion Gap 23 H BUN 113 H* Creatinine 8.56 H* Est GFR (MDRD) Non-Af 6 L BUN/Creatinine Ratio UNABLE TO CALCULATE L Glucose 58 L Calcium 14.6 H* Total Bilirubin 0.70 AST 29 ALT 25 Alkaline Phosphatase 91 Total Protein 9.6 H Albumin 3.6 Globulin 6.1 H Albumin/Globulin Ratio 0.6 L Lipase 57 Discharge Plan Dx/Rx/DC Orders Clinical Impression: Acute renal failure, Nausea & vomiting, Acute hyponatremia, History of diabetesmellitus, Hypercalcemia, History of compression fracture of spine Disposition Disposition: Acute Care Hospital [facility] What to do if you have Problems For any increased pain, shortness of breath, bleeding, nausea or vomiting, chestpain, or any unexpected problems, contact your Primary Care Provider. Call [facility] ([phone]) or report to the closest Emergency Room. Call 911 if necessary. 12/03/242212 <Electronically signed by Omari Luna MD> Cosigner Signature (if applicable): CC: Dr. Luna Ashton, DO ~ Signed [facility] Work Phone: 1(604) 293-166009-24-2025 [facility] Internal Medicine [address] [place], [place] [address] OFFICE VISIT Date of Service: 11/23/24 MR#: [id number] Acct: [id number] Name: LINA VARGAS Rep #: [id number] : 1940 Provider: Dr. 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 Told xray was [...] radiating pain into other parts of body. PFSH Medical History Lumbar strain Low back pain [...] HPI Chief Complaint: Back Pain Details: LINA VARGAS, is a 83 M who presents to the office today for severe back pain. About 3 weeks ago he bent over and had a severe pain in his back. In spite of the severity of the pain he went on a cruise to [place] but was in a wheelchair all the time because he was unable to walk. On the cruise ship he had treatments of acupuncture and cupping but they did not help and when he returnedhe saw chiropractor. The first treatment was exquisitely painful the patient said it was even more severe than thepain he was having but the last 2 treatments were not so bad. The chiropractor told him that his leg length was evened off but has not done anything for the pain. Reviewing his x-rays it was reportedby the radiologist that he has some changes in the superior endplate ofL1 which looks like it couldbe an acute compression fracture. ROS Const Constitutional: [...] change in bowel habits, constipation, cramping, diarrhea,nausea/dyspepsia orvomiting Genitourinary Male: No burning urination, painful urination, [...] in the past year?: No 11/23/24 1122 wn DO> Date _ Luna Ashton DO Cosigner Signature: Date (if applicable) CC: ~ [facility]09-16-2025 Radiology Diagnostic study note [facility] Imaging Services [address] [place] [address] Lumbar Spine 2 or 3 Views MR#: [id number] Acct: [id number] Name: LINA VARGAS Rep #: [id number] : 1940 M 83 From: George Bo MD PCP: Dr. Luna Ashton, Status: [place] Study:Lumbar Spine 2 or 3 Views Date of Exam: 11/15/24 Exam# [id number] Ordering Dr: [facility] PROCEDURE: LUMBAR [...] CHANGES OF THE LUMBAR SPINE. Reading Location: [facility] CC: Dr. Luna Ashton DO; MARIAA Garcia ~ Data Entry Email Processor: Signed [facility]08-05-2025 Radiology Diagnostic study note [facility] Imaging Services [address] [place], [place] [address] Abdomen Limited MR#: [id number] Acct: [id number] Name: LINA VARGAS Rep #: [id number] : 1940 83 From: George Bo MD PCP: Dr. Luna Ashton DO Status: RE G CLI Study:Abdomen Limited Date of Exam: 07/24 Exam# [id number] Ordering Dr: Do jorge Ashton DO PROCEDURE: ABDOMEN LIMITED 10/04/2024 REASON FOR EXAM: NAUSEA WITH FATTY FOODS COMPARISON: None FINDINGS: Liver: Diffusely echogenic suggesting fatty infiltration. The liver measures 16.1 cm. Gallbladder: There are 2, small polyps adherent to the gallbladder wall. The larger measures 6 mm x6 mm x 4 mm. No evidence of [...] Fatty infiltration of the liver. Reading Location: [id number] CC: Dr. Luna Ashton, DO ~ Data Entry Email Processor: Signed [facility]07-31-2025 Evaluation note* Diagnosis Onset Date Resolution Status Admit Date Dyspnea on exertion acute September 29, 2024 2:02pm CKD (chronic kidney disease) stage 1, GFR 90 ml/min or greater chronic September 29, 2024 2:02pm Epigastric pain chronic August 2:02pm History of hypothyroidism chronic September 29, 2024 2:02pm HTN (hypertension) chronic September 012024 2:02pm Type II diabetes mellitus chronic September 29, 2024 2:02pm [facility] Work Phone: 1(612) 318-589007-31-2025 Evaluation note* Diagnosis Onset Date Resolution Status [...] 12:00pm Lumbar strain acute October 312024 12:00pm [facility] Work Phone: 1([phone]) 689-451107-31-2025 Evaluation note* Diagnosis Onset Date Resolution Status [...] lumbar vertebra acute November 23, 2024 10:33am [facility] Work Phone: 1([phone]) 431-404907-31-2025 Evaluation note* Diagnosis Onset Date Resolution Status Admit Date Dyspnea on exertion acute September 29, 2024 2:02pm Epigastric pain chronic August 2:02pm HTN (hypertension) chronic September 012024 2:02pm Type II diabetes mellitus chronic September 29, 2024 2:02pm CKD (chronic kidney disease) stage 1, GFR 90 ml/min or greater inactive September 29, 2024 2:02pm History of hypothyroidism deleted September 29, 2024 2:02pm Low back pain deleted October 312024 12:00pm Lumbar strain deleted October 312024 12:00pm Compression fracture of L1 lumbar vertebra acute November 23, 2024 10:33am Acute renal failure acute Octob er 2024 5:03pm Hypercalcemia acute November 5:03pm [facility] Work Phone: 1([phone]) 553-210307-31-2025 Evaluation note* Diagnosis Onset Date Resolution Status Admit Date Dyspnea on exertion acute September 29, 2024 2:02pm Epigastric pain chronic August 2:02pm HTN (hypertension) chronic September 012024 2:02pm Type II diabetes mellitus chronic September 29, 2024 2:02pm CKD (chronic kidney disease) stage 1, GFR 90 ml/min or greater inactive September 29, 2024 2:02pm History of hypothyroidism deleted September 29, 2024 2:02pm Low back pain deleted October 312024 12:00pm Lumbar strain deleted October 312024 12:00pm Compression fracture of L1 lumbar vertebra acute November 23, 2024 10:33am Acute renal failure acute Octob er 2024 5:03pm Hypercalcemia acute November 5:03pm Acute renal failure acute Octob er 2024 2:23pm Multiple myeloma acute December 14, 2024 2:23pm Anemia chronic December 14, 2024 2:23pm Acute renal failure acute Octob er 2024 11:14am Multiple myeloma acute December 19, 2024 11:14am Anemia chronic December 19, 2024 11:14am Acute renal failure acute Octob er 2024 8:09am Multiple myeloma acute December 26, 2024 8:09am Anemia chronic December 26, 2024 8:09am [facility] Work Phone: 1(760) 441-819707-31-2025 Evaluation note* Diagnosis Onset Date Resolution Status Admit Date Dyspnea on exertion acute September 29, 2024 2:02pm Epigastric pain chronic August 2:02pm HTN (hypertension) chronic September 012024 2:02pm Type II diabetes mellitus chronic September 29, 2024 2:02pm CKD (chronic kidney disease) stage 1, GFR 90 ml/min or greater inactive September 29, 2024 2:02pm History of hypothyroidism deleted September 29, 2024 2:02pm Low back pain deleted October 312024 12:00pm Lumbar strain deleted October 312024 12:00pm Compression fracture of L1 lumbar vertebra acute November 23, 2024 10:33am Acute renal failure acute Octob er 2024 5:03pm Hypercalcemia acute November 5:03pm Acute renal failure acute Octob er 2024 2:23pm Multiple myeloma acute December 14, 2024 2:23pm Anemia chronic December 14, 2024 2:23pm Acute renal failure acute Octob er 2024 11:14am Multiple myeloma acute December 19, 2024 11:14am Anemia chronic December 19, 2024 11:14am Acute renal failure acute Octob er 2024 8:09am Multiple myeloma acute December 26, 2024 8:09am Anemia chronic December 26, 2024 8:09am Acute renal failure acute Octob er 2024 10:11am Compression fracture of L1 lumbar vertebra acute December 29 10:11am Multiple myeloma acute December 29, 2024 10:11am Hypothyroidism chronic December 292024 10:11am Type II diabetes mellitus chronic December 29, 2024 10:11am Acute renal failure acute Novem 2024 1:23pm Multiple myeloma acute January 02, 2025 1:23pm Anemia chronic January 02, 2025 1:23pm [facility] [employer] Work Phone: 1(646) 361-319504-22-2025 Evaluation note* Diagnosis Onset Date Resolution Status [...] diabetes mellitus chronic September 29, 2024 2:02pm [facility] Work Phone: 1([phone]) 927-232604-22-2025 Evaluation note* Diagnosis Onset Date Resolution Status [...] diabetes mellitus chronic September 29, 2024 2:02pm [facility] Work Phone: Consult note [facility] Medical Records Department [address] [place] [address] Consultation - Nephrology 12/04/24 1451 MR#: [id number] Acct: [id number] Name: LINA VARGAS Rep #:[id number] : 1940 83 From: Alyssia goetz MD PCP: Dr. Luna Ashton, DO Status:AD M IN Location: [place] [address]- Assessment & Plan Assessment/Plan (1) Hypercalcemia: (2) Acute renal failure: PLAN: Baseline creatinine as of beginning of this year was around 1.4 or so. Admission creatinine more than 9. Monterroso indwelling without much urine output. Renal ultrasound pending Associated hypercalcemia recent spine related issues. Will check serum protein electrophoresis, kappa, lambda light chain assay. I will also send other serologies. He also takes Tums 1 a day due to acid reflux. I am not sure if that is the cause of hypercalcemia as well. So far PTH is suppressed. Continue IV fluids for now. If no significant recovery, may need a kidney biopsy. dw hospitalist HPI Consult Data Date of Consult: 12/04/24 HPI Narrative Reason for Consultation: DEANGELO HPI Narrative: LINA VARGAS, is a 83 M who presents To the hospital with generalized weakness, nausea, vomiting. Nephrology on consultation in view of acute renal failure. Primary care physician is Dr. Ashton. As of March this year, creatinine was around 1.3-1.4. Over the last few months, medical events include sudden onset of low back pain, had imaging studies which showed compression fracture, was in the process of scheduling appointment with pain management. They actually have an appointment tomorrow. Overthe last 2 weeks or so, he had progressively worsening poor appetite, nausea, vomiting. Minimal oral intake. Found to have renal failure, creatinine more than 9 in the ER. He says he was making urinebut since he was not eating or drinking much, urine output has decreased. Denies any obstructive symptoms. Initial bladder scan in the ER was about 200 cc or so, Monterroso placed with some urine. Denies taking any [id number] medications. Other than pain medications, no other new medications. [facility] Medical History (Updated 12/04/24 @ 12:[address] Claire Mazariegos MD) CKD (chronic kidney disease) stage 1, GFR 90 ml/min or greater Trigger finger of right hand Apical variant hypertrophic cardiomyopathy HLD (hyperlipidemia) Shingles (herpes zoster) polyneuropathy Acute urticaria GERD (gastroesophageal reflux disease) Hypothyroidism Home Medications ?Medication ?Instructions ?Recorded ?Last Taken ?Type blood sugar diagnostic (True #100 ea 02/11/23 Unknown Rx Metrix Glucose Test Strip) blood-glucose meter #1 ea 02/11/23 Unknown Rx atorvastatin 20 mg tablet 20 mg PO QDAY #90 tabs 09/2912/02/24 Rx lancets 30 gauge (Unilet Lancets) #100 ea 09/29/24 Unk nown Rx levothyroxine 100 mcg tablet 100 mcg PO DAILY #100 tab s 09/29/24 12/03/24 Rx metformin 500 mg tablet,extended 500 mg PO BID #180 ta bs 09/29/24 12/03/24 10:00 Rx release 24 hr omeprazole 20 mg capsule,delayed 20 mg PO DAILY #100 c aps 09/29/24 12/03/24 Rx release pen needle, diabetic 29 gauge x #100 ea 09/29/24 Unkno wn Rx 1/2 (CareFine Pen Needle) sitagliptin phosphate 100 mg 100 mg PO DAILY #100 tabs 09/29/24 12/03/24 Rx tablet (Januvia) valsartan 160 1 tab PO DAILY #90 TABLETS 0 09/29/24 12/03/24 Rx mg-hydrochlorothiazide 12.5 mg tablet ondansetron 4 mg disintegrating 4 mg PO Q8H PRN nausea and 11/29/24 12/02/24 Rx tablet vomiting #14 tabs insulin glargine 100 unit/mL (3 21 unit subcut QHS 06/2412/02/24 History mL) subcutaneous pen (Lantus Solostar U-100 Insulin) magnesium 250 mg tablet 250 mg PO QHS 12/03/2412/02 History Allergy/AdvReac Type Severity Reaction Status Date / Time meloxicam (From Mobic) Allergy Severe unknown Verified 12/03/24 14:09 pentazocine (From Talwin) Allergy Severe unknown Verified 12/03/24 14:09 metaxalone AdvReac Intermediate Nausea Verified 12/03/24 14:09 Family History Father Heart disease Mother CVA (cerebral vascular accident) Hypertension Breast cancer Surgical History History of back surgery History of left knee surgery History of appendectomy History of cardiac cath Social History Smoking Status: Never smoker how long ago did patient quit smokin alcohol intake: never ROS ROS Narrative negative except above Physical Exam Narrative Alert awake oriented x 3 no obvious distress no pallor no icterus no JVD s1s2 no murmurs lungs clear abdomen soft no organomegaly no edema Medical Records Data Medical Nutrition Assessment Dietitian: Malnutrition Criteria Met Start: 12/04/24 12:12 Freq: Status: Active Protocol: Document 12/04/24 12:12 SLA (Rec: 12/04/24 12:13 SLA 12.09.24.7) Nutrition Malnutrition Evidence of Yes Malnutrition Exists Malnutrition (severe Acute Illness/Injury ): Evidenced By Suboptimal Energy Intake (Severe),Weight Loss (Severe) Clinical Problem Acute Disease or Injury Related Malnutrition Etiology related to issues 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 Status Active Problem Recommendation Dietitian Will liberalize diet to Regular w/ glucerna shake tid Recommendations/ at meals - once po intake improves, can adjust to carb Changes controlled diet if indicated. Will continue to follow and monitor for changes in pt nutritional status and make additional rec as indicate. Lab / Micro Data 12/04/24 03:43 12/04/24 03:43 Labs: Laboratory Results - last 24 hr 12/03/24 14:24: Sodium 126 L, Potassium 4.2, Chloride 84 L, Carbon Dioxide 19.5 L, Anion Gap 23 H, BUN 113 H*, Creatinine 8.56 H*, Est GFR (MDRD) Non-Af 6 L, BUN/Creatinine Ratio UNABLE TO CALCULATE L, Glucose 58 L, Calcium 14.6 H*, Phosphorus 5.6 H, Magnesium 5.4 H*, Total Bilirubin 0.70, AST 29, ALT 25, Alkaline Phosphatase 91, Total Creatine Kinase 47, Total Protein 9.6 H, Albumin 3.6, Globulin 6.1 H, Albumin/Globulin Ratio 0.6 L, Lipase 57, Vitamin D 25- Hydroxy 43.3, TSH 0.591, PTH Intact 15 12/03/24 18:52: POC Glucose 49 L 12/03/24 19:27: POC Glucose 56 L 12/03/24 20:12: Sodium 127 L, Potassium 4.1, Chloride 88 L, Carbon Dioxide 18.5 L, Anion Gap 20 H, BUN 111 H*, Creatinine 8.45 H*, Estim Creat Clear Calc 7.08 L*, Est GFR (MDRD) Non-Af 6 L, BUN/Creatinine Ratio 13.1, Glucose 82, Serum Osmolality 324 H, Calcium 13.0 H* 12/03/24 20:30: POC Glucose 75 12/03/24 20:38: Urine Color Straw, Urine Clarity Clear, Urine pH 7.0, Ur Specific [place] 1.010, Urine Protein 30 H, Urine Glucose (UA) Normal, Urine Ketones Negative, Urine Occult Blood 250 H, UrineNitrite Negative, Urine Bilirubin Negative, Urine Urobilinogen Normal, Ur Leukocyte Esterase 25 H, U rineRBC 10-25 SEEN, Urine WBC 0-5 SEEN, Ur Squamous Epith Cells 0-5 SEEN, Urine Bacteria RARE, Urine Mucus 0 SEEN, Urine Osmolality 336, Ur Random Microalbumin 101.0, Ur Random Sodium 56, Urine Creatinine 50.10, Microalb/Creat Ratio 201.6 H, Urine Potassium 25.6, Urine Chloride 46, Urine Urea Nitrogen 406 12/04/24 03:43: WBC 6.4, RBC 2.16 L, Hgb 7.9 L, Hct 21.3 L, MCV 98.6 H, MCH 36.6H, MCHC 37.1 H, RDWStd Deviation 41.4, RDW Coeff of Scotty 11.5 L, Plt Count 134 L, MPV 9.7, Immature Gran % (Auto) 0.500, Neut % (Auto) 75.9 H, Lymph % (Auto) 12.1 L, [place] % (Auto) 9.9, Eos % (Auto) 1.4, Baso % (Auto) 0.2, Absolute Neuts (auto) 4.9, Absolute Lymphs (auto) 0.77 L, Nucleated RBC % 0, Sodium 129 L, Potassium 4.4, Chloride 93 L, Carbon Dioxide 21.4, Anion Gap 14, BUN 112 H*, Creatinine 8.49 H*, Estim Creat Clear Calc 6.97 L*, Est GFR (MDRD) Non-Af 6 L, BUN/Creatinine Ratio 13.2, Glucose 72, Calcium 12.3 H, Triglycerides 103, Cholesterol 53, LDL Cholesterol, Calc 7, VLDL Cholesterol 21, HDL Cholesterol 25L, Cholesterol/HDL Ratio 2.09 12/04/24 05:50: POC Glucose 65 L 12/04/24 06:40: POC Glucose 142 H 12/04/24 12:42: POC Glucose 81 Imaging Radiology Impression Chest X-Ray 12/03/24 17:20 IMPRESSION: NO ACUTE FINDINGS. Reading Location: [facility] 12/04/241454 Cosigner Signature (if applicable): CC: Dr. Luna Ashton, DO~ [facility]igned [facility] Alyssia [facility] Note Date/Time December 04, 2024 2: 55pm [facility] Medical Records Department [address] [place] [address] Consultation - Nephrology 12/04/241450 MR#: [id number] Acct: [id number] Name: LINA VARGAS Rep #:[id number] : 1940 83 From: Alyssia goetz MD PCP: Dr. Luna Ashton, DO Status:AD M IN Location: [id number] Assessment & Plan Assessment/Plan (1) Hypercalcemia: (2) Acute renal failure: PLAN: Baseline creatinine as of beginning of this year was around 1.4 or so. Admission creatinine more than 9. Monterroso indwelling without much urine output. Renal ultrasound pending Associated hypercalcemia recent spine related issues. Will check serum protein electrophoresis, kappa, lambda light chain assay. I will also send other serologies. He also takes Tums 1 a day due to acid reflux. I am not sure if that is the cause of hypercalcemia as well. So far PTH is suppressed. Continue IV fluids for now. If no significant recovery, may need a kidney biopsy. dw hospitalist HPI Consult Data Date of Consult: 12/04/24 HPI Narrative Reason for Consultation: DEANGELO HPI Narrative: LINA VARGAS, is a 83 M who presents To the hospital with generalized weakness, nausea, vomiting. Nephrology on consultation in view of acute renal failure. Primary care physician is Dr. Ashton. As of March this year, creatinine was around 1.3- 1.4. Over the last few months, medical events include sudden onset of low back pain, had imaging studies which showed compression fracture, was in the process of scheduling appointment with pain management. They actually have an appointment tomorrow. Over the last 2 weeks or so, he had progressively worsening poor appetite, nausea, vomiting. Minimal oral intake. Found to have renal failure, creatinine more than 9 in the ER. He says he was making urine but since he was not eating or drinking much, urine output has decreased. Denies any obstructive symptoms. Initial bladder scan in the ER was about 200 cc or so, Monterroso placed with some urine. Denies taking any [id number]-[id number] medications. Other than pain medications, no other new medications. [facility] Medical History (Updated 12/04/24 @ 12:[address] Claire Mazariegos MD) CKD (chronic kidney disease) stage 1, GFR 90 ml/min or greater Trigger finger of right hand Apical variant hypertrophic cardiomyopathy HLD (hyperlipidemia) Shingles (herpes zoster) polyneuropathy Acute urticaria GERD (gastroesophageal reflux disease) Hypothyroidism Home Medications ?Medication ?Instructions ?Recorded ?Last Taken ?Type blood sugar diagnostic (True #100 ea 02/11/23 Unknown Rx Metrix Glucose Test Strip) blood-glucose meter #1 ea 02/11/23 Unknown Rx atorvastatin 20 mg tablet 20 mg PO QDAY #90 tabs 09/2912/02/24 Rx lancets 30 gauge (Unilet Lancets) #100 ea 09/29/24 Unk nown Rx levothyroxine 100 mcg tablet 100 mcg PO DAILY #100 tab s 09/29/24 12/03/24 Rx metformin 500 mg tablet,extended 500 mg PO BID #180 ta bs 09/29/24 12/03/24 10:00 Rx release 24 hr omeprazole 20 mg capsule,delayed 20 mg PO DAILY #100 c aps 09/29/24 12/03/24 Rx release pen needle, diabetic 29 gauge x #100 ea 09/29/24 Unkno wn Rx 1/2 (CareFine Pen Needle) sitagliptin phosphate 100 mg 100 mg PO DAILY #100 tabs 09/29/24 12/03/24 Rx tablet (Januvia) valsartan 160 1 tab PO DAILY #90 TABLETS 0 09/29/24 12/03/24 Rx mg-hydrochlorothiazide 12.5 mg tablet ondansetron 4 mg disintegrating 4 mg PO Q8H PRN nausea and 11/29/24 12/02/24 Rx tablet vomiting #14 tabs insulin glargine 100 unit/mL (3 21 unit subcut QHS 06/2412/02/24 History mL) subcutaneous pen (Lantus Solostar U-100 Insulin) magnesium 250 mg tablet 250 mg PO QHS 12/03/2412/02 History Allergy/AdvReac Type Severity Reaction Status Date / Time meloxicam (From Mobic) Allergy Severe unknown Verified 12/03/24 14:09 pentazocine (From Talwin) Allergy Severe unknown Verified 12/03/24 14:09 metaxalone AdvReac Intermediate Nausea Verified 12/03/24 14:09 Family History Father Heart disease Mother CVA (cerebral vascular accident) Hypertension Breast cancer Surgical History History of back surgery History of left knee surgery History of appendectomy History of cardiac cath Social History Smoking Status: Never smoker how long ago did patient quit smokin alcohol intake: never ROS ROS Narrative negative except above Physical Exam Narrative Alert awake oriented x 3 no obvious distress no pallor no icterus no JVD s1s2 no murmurs lungs clear abdomen soft no organomegaly no edema Medical Records Data Medical Nutrition Assessment Dietitian: Malnutrition Criteria Met Start: 12/04/24 12:12 Freq: Status: Active Protocol: Document 12/04/24 12:12 SLA (Rec: 12/04/24 12:13 SLA ..25.7) Nutrition Malnutrition Evidence of Yes Malnutrition Exists Malnutrition (severe Acute Illness/Injury ): Evidenced By Suboptimal Energy Intake (Severe),Weight Loss (Severe) Clinical Problem Acute Disease or Injury Related Malnutrition Etiology related to issues 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 Status Active Problem Recommendation Dietitian Will liberalize diet to Regular w/ glucerna shake tid Recommendations/ at meals - once po intake improves, can adjust to carb Changes controlled diet if indicated. Will continue to follow and monitor for changes in pt nutritional status and make additional rec as indicate. Lab / Micro Data 12/04/24 03:43 12/04/24 03:43 Labs: Laboratory Results - last 24 hr 12/03/24 14:24: Sodium 126 L, Potassium 4.2, Chloride 84 L, Carbon Dioxide 19.5 L, Anion Gap 23 H, BUN 113 H*, Creatinine 8.56 H*, Est GFR (MDRD) Non-Af 6 L, BUN/Creatinine Ratio UNABLE TO CALCULATE L, Glucose 58 L, Calcium 14.6 H*, Phosphorus 5.6 H, Magnesium 5.4 H*, Total Bilirubin 0.70, AST 29, ALT 25, Alkaline Phosphatase 91, Total Creatine Kinase 47, Total Protein 9.6 H, Albumin 3.6, Globulin 6.1 H, Albumin/Globulin Ratio 0.6 L, Lipase 57, Vitamin D 25-Hydroxy 43.3, TSH 0.591, PTH Intact 15 12/03/24 18:52: POC Glucose 49 L 12/03/24 19:27: POC Glucose 56 L 12/03/24 20:12: Sodium 127 L, Potassium 4.1, Chloride 88 L, Carbon Dioxide 18.5 L, Anion Gap 20 H, BUN 111 H*, Creatinine 8.45 H*, Estim Creat Clear Calc 7.08 L*, Est GFR (MDRD) Non-Af 6 L, BUN/Creatinine Ratio 13.1, Glucose 82, Serum Osmolality 324 H, Calcium 13.0 H* 12/03/24 20:30: POC Glucose 75 12/03/24 20:38: Urine Color Straw, Urine Clarity Clear, Urine pH 7.0, Ur Specific [place] 1.010, Urine Protein 30 H, Urine Glucose (UA) Normal, Urine Ketones Negative, Urine Occult Blood 250 H, Urine Nitrite Negative, Urine Bilirubin Negative, Urine Urobilinogen Normal, Ur Leukocyte Esterase 25 H, UrineRBC 10-25 SEEN, Urine WBC 0-5 SEEN, Ur Squamous Epith Cells 0-5 SEEN, Urine Bacteria RARE, Urine Mucus 0 SEEN, Urine Osmolality 336, Ur Random Microalbumin 101.0, Ur Random Sodium 56, Urine Creatinine 50.10, Microalb/Creat Ratio 201.6 H, Urine Potassium 25.6, Urine Chloride 46, Urine Urea Nitrogen 406 12/04/24 03:43: WBC 6.4, RBC 2.16 L, Hgb 7.9 L, Hct 21.3 L, MCV 98.6 H, MCH 36.6H, MCHC 37.1 H, RDW Std Deviation 41.4, RDW Coeff of Scotty 11.5 L, Plt Count 134 L, MPV 9.7, Immature Gran % (Auto) 0.500, Neut % (Auto) 75.9 H, Lymph % (Auto) 12.1 L, [place] % (Auto) 9.9, Eos % (Auto) 1.4, Baso % (Auto) 0.2, Absolute Neuts (auto) 4.9, Absolute Lymphs (auto) 0.77 L, Nucleated RBC % 0, Sodium 129 L, Potassium 4.4, Chloride 93 L, Carbon Dioxide 21.4, Anion Gap 14, BUN 112 H*, Creatinine 8.49 H*, Estim Creat Clear Calc 6.97 L*, Est GFR (MDRD) Non-Af 6 L, BUN/Creatinine Ratio 13.2, Glucose 72, Calcium 12.3 H, Triglycerides 103, Cholesterol 53, LDL Cholesterol, Calc 7, VLDL Cholesterol 21, HDL Cholesterol 25L, Cholesterol/HDL Ratio 2.09 12/04/24 05:50: POC Glucose 65 L 12/04/24 06:40: POC Glucose 142 H 12/04/24 12:42: POC Glucose 81 Imaging Radiology Impression Chest X-Ray 12/03/24 17:20 IMPRESSION: NO ACUTE FINDINGS. Reading Location: [facility] 12/04/24 1075 <Electronically signed by Alyssia Bah MD> Cosigner Signature (if applicable): CC: Dr. Luna Ashton, DO~ Signed [facility] Work Phone: Evaluation note* Diagnosis Onset Date Resolution Status Shoulder pain, right acute Hypothyroidism chronic Type II diabetes mellitus ch ronic Shoulder pain, right acute HTN (hypertension) chronic [facility] Work Phone: Evaluation note* Diagnosis Onset Date Resolution Status HLD (hyperlipidemia) chronic HTN (hypertension) chronic Hypothyroidism chronic Type II diabetes mellitus ch ronic Acute low back pain with rad icular symptoms, duration less than 6 weeks acute HTN (hypertension) chronic [id number] noneacti [facility] Work Phone: Evaluation note* Diagnosis Onset Date Resolution Status HTN (hypertension) chronic Hypothyroidism chronic Type II diabetes mellitus ch ronic Nocturia associated with benign prostatic hyperplasia acute Epigastric pain chronic HTN (hypertension) chronic Type II diabetes mellitus [facility] Work Phone: Evaluation note* Diagnosis Onset Date Resolution Status Nocturia associated with benign prostatic hyperplasia acute Epigastric pain chronic HTN (hypertension) chronic Type II diabetes mellitus ch ronic HTN (hypertension) chronic Hypothyroidism chronic Type II diabetes mellitus [facility] Work Phone: Evaluation note* Diagnosis Onset Date Resolution Status HTN (hypertension) chronic Hypothyroidism chronic Type II diabetes mellitus ch ronic Epigastric pain chronic History of hypothyroidism ch ronic HTN (hypertension) chronic Type II diabetes mellitus [facility] Work Phone: Evaluation note* Diagnosis Onset Date Resolution Status CAD (coronary artery disease) chronic Epigastric pain chronic HTN (hypertension) chronic Type II diabetes mellitus ch ronic HTN (hypertension) chronic Type II diabetes mellitus [facility] Work Phone: History and physical note Author Claire Mazariegos [facility] Note Date/Time December 03, 2024 5: 31pm [facility] Medical Records Department [address] [place] [address] H&P Exam - Hospitalist 12/03/24 1703 MR#: [id number] Acct: [id number] Name: LINA VARGAS Rep #:[id number] : 1940 83 From: Claire Mazariegos MD PCP: Dr. Luna Ashton, DO Status:AD M IN Location: [facility] [id number] HPI - General General Date of Admission: 12/03/24 Date of Service: 12/03/24 Chief Complaint: N/V, generalized weakness HPI Narrative LINA VARGAS, is a 83-year-old male history of hypothyroidism, diabetes, GERD, hypertension who presented to [facility] ED 12/03/24 with nausea and vomiting. He was recently diagnosed with an L1 compression fracture and hasan upcoming kyphoplasty. Currently feeling dehydrated and has had intermittent nausea and vomiting for weeks. Also feeling generally weak and unwell. In the ED temp 96.5, heart rate 88, blood pressure 167/80, respiratory rate 16 pulse ox97% on room air. CBC with white count of 8, hemoglobin 10.7, platelet count 206. Sodium 126, bicarb 19.5, gap of 23, BUN 113 with a creatinine of 8.56, glucose 58 and calcium 14.6. Patient given 2 L of IV fluids and hospitalist consulted for admission for acute kidney failure. Patient evaluated bedside with present. They report that he was found to have a compression fractureat the end of September, since that time he is intermittently been having problems with nausea and vomiting, he is felt generally weak and had very poor p.o. intake specially for the past 2 weeks. Had been urinating with a little bit of burning at times and suprapubic discomfort however in the ED unable to urinate. Denies any diarrhea and reports he is actually been having problems with constipation. No chest pain or current shortness of breath, denies taking any NSAIDs for his back pain. [facility] Medical History Lumbar strain Low back pain Shingles (herpes zoster) polyneuropathy Acute urticaria Gastroenteritis GERD (gastroesophageal reflux disease) Hypothyroidism Home Medications ?Medication ?Instructions ?Recorded ?Last Taken ?Type blood sugar diagnostic (True #100 ea 02/11/23 Unknown Rx Metrix Glucose Test Strip) blood-glucose meter #1 ea 02/11/23 Unknown Rx atorvastatin 20 mg tablet 20 mg PO QDAY #90 tabs 09/2912/02/24 Rx lancets 30 gauge (Unilet Lancets) #100 ea 09/29/24 Unk nown Rx levothyroxine 100 mcg tablet 100 mcg PO DAILY #100 tab s 09/29/24 12/03/24 Rx metformin 500 mg tablet,extended 500 mg PO BID #180 ta bs 09/29/24 12/03/24 10:00 Rx release 24 hr omeprazole 20 mg capsule,delayed 20 mg PO DAILY #100 c aps 09/29/24 12/03/24 Rx release pen needle, diabetic 29 gauge x #100 ea 09/29/24 Unkno wn Rx 1/2 (CareFine Pen Needle) sitagliptin phosphate 100 mg 100 mg PO DAILY #100 tabs 09/29/24 12/03/24 Rx tablet (Januvia) valsartan 160 1 tab PO DAILY #90 TABLETS 0 09/29/24 12/03/24 Rx mg-hydrochlorothiazide 12.5 mg tablet ondansetron 4 mg disintegrating 4 mg PO Q8H PRN nausea and 11/29/24 12/02/24 Rx tablet vomiting #14 tabs insulin glargine 100 unit/mL (3 21 unit subcut QHS 06/2412/02/24 History mL) subcutaneous pen (Lantus Solostar U-100 Insulin) magnesium 250 mg tablet 250 mg PO QHS 12/03/2412/02 History Allergy/AdvReac Type Severity Reaction Status Date / Time meloxicam (From Mobic) Allergy Severe unknown Verified 12/03/24 14:09 pentazocine (From Talwin) Allergy Severe unknown Verified 12/03/24 14:09 metaxalone AdvReac Intermediate Nausea Verified 12/03/24 14:09 Family History Father Heart disease Mother CVA (cerebral vascular accident) Hypertension Breast cancer Surgical History History of back surgery History of left knee surgery History of appendectomy History of cardiac cath Social History Smoking Status: Never smoker how long ago did patient quit smokin alcohol intake: never ROS ROS Narrative General: Denies fever/chills HENT: stuffy nose, denies sore throat EYES: Denies changes in vision Resp: Denies cough, not presently feeling short of breath Cardiac: Denies chest pain GI: Has had intermittent nausea and vomiting with constipation and has had some suprapubic discomfort : Denies changes in urination Extremity: Denies swelling MSK: Generalized weakness with no focal complaints Neuro: Denies any numbness/tingling Heme: Denies any bleeding or bruising Skin: Denies rashes Psychiatric: No complaints voiced Vital Signs Vital Signs Vital Signs: 12/03/24 14:09 12/03/24 16:00 12/03/24 16:43 Temperature 96.5 F L 96.6 F L Temperature Source Temporal Pulse Rate 88 91 90 Respiratory Rate 16 20 H Blood Pressure 167/80 H 156/56 H 143/58 H Blood Pressure Mean 109 86 86 Pulse Ox 97 99 100 Oxygen Delivery Method Room Air Weight Weight: 83.9 kg Body Mass Index (BMI) 25.0 Physical Exam Narrative General: Alert, oriented, no apparent distress HEENT: Atraumatic, normocephalic Eyes: Anicteric, normal conjunctiva, extraocular movements grossly intact Neck: Supple Respiratory: Clear to auscultation bilaterally, normal respiratory effort Cardiovascular: Regular rate GI: Soft, does have some slight discomfort mostly in the suprapubic region Extremities: No edema Musculoskeletal: Moving all extremities Neuro: No overt focal neurological deficits Skin: No rashes appreciated Psych: Cooperative Results Lab / Micro Data 12/03/24 14:24 12/03/24 14:24 Labs: Laboratory Results - last 24 hr 12/03/24 14:24: WBC 8.0, RBC 2.96 L, Hgb 10.7 L, Hct 28.9 L, MCV 97.6 H, MCH 36.1 H, MCHC 37.0 H, RDW Std Deviation 40.3, RDW Coeff of Scotty 11.3 L, Plt Count 206, MPV 9.6, Immature Gran % (Auto) 0.400, Neut % (Auto) 76.6 H, Lymph % (Auto)14.1 L, [place] % (Auto) 8.6, Eos % (Auto) 0.2, Baso % (Auto) 0.1, Absolute Neuts (auto) 6.2, Absolute Lymphs (auto) 1.13, Nucleated RBC % 0, Sodium 126 L, Potassium 4.2, Chloride 84 L, Carbon Dioxide 19.5 L, Anion Gap 23 H, BUN 113 H*,Creatinine 8.56 H*, Est GFR (MDRD) Non-Af 6 L, BUN/Creatinine Ratio UNABLE TO CALCULATE L, Glucose 58 L, Calcium 14.6 H*, Total Bilirubin 0.70, AST 29, ALT 25, Alkaline Phosphatase 91, Total Protein 9.6 H, Albumin 3.6, Globulin 6.1 H, Albumin/Globulin Ratio 0.6 L, Lipase 57 Assessment & Plan Assessment/Plan (1) Acute renal failure: PLAN: Plan #Acute kidney failure -Patient with a creatinine around 1.5 at baseline with most recent value 9 months ago being 1.5 to - Presenting now with a creatinine of 8.56 - Bicarb 19.5 - Patient not hyperkalemic - Vitally stable and not volume overloaded - Patient alert, no seizure activity, confusion, altered mental status - Presently does not seem to have any indications for emergent dialysis - Suspect that patient's nausea and vomiting with very poor p.o. intake on top of continuing to take his valsartan/hydrochlorothiazide caused or largely contributed to his worsening renal failure - Patient reportedly had been urinating at home and even urinated this morning however in the ED unable to urinate and has 280 on bladder scan - Unclear if there has been an obstructive component to this as well given patient's report of urinating okay prior to coming in - Will have Monterroso catheter placed given patient reporting he is unable to urinate in the ED and bladder scan shows 280 - IV fluids - Will check UA given reports of suprapubic discomfort - Check urine studies - Kidney and bladder ultrasound -Check CK - Discussed with nephrology, nephrology consult placed # Hypercalcemia -Unclear if this is secondary to significant dehydration or if this could be a primary process associated with his renal failure and dehydration - Will hydrate with normal saline - Will check PTH and vitamin D - will check Phos - If no or minimal improvement can consider calcitonin and/or bisphosphonates - Will also check serum and urine protein electrophoresis given high calcium with kidney failure, high total protein and globulin, anemia and recent L1 fracture/bone pain in addition to generalized weakness - Chest x-ray also ordered to evaluate for any possible lesions #Hyponatremia -Possibly secondary to dehydration but cannot say definitively, patient additionally on hydrochlorothiazide which will be held - Will order serum osmole's - Check urine studies - TSH - Lipid profile - Monitor I's and O's - Trend BMPs #Hypertension -Will be holding valsartan/hydrochlorothiazide due to the above #L1 compression fracture - Patient scheduled for kyphoplasty Thursday - Denies taking any NSAIDs or pain medications - Supportive care #Type 2 diabetes mellitus -Glucose checks and sliding scale insulin - Had somewhat low glucose of 59 on presentation - Will decrease long-acting insulin - Holding sitagliptin and metformin #GERD -Continue PPI #Hypothyroidism -Continue Synthroid #DVT ppx: SCDs Claire Mazariegos MD Charges/Coding Visit Charges Inpatient E&M: 65273 Init Hosp L3 12/03/24 1731 <Electronically signed by Claire Mazariegos MD> Cosigner Signature (if applicable): CC: Dr. Luna Ashton DO; Dr. Claire Mazariegos MD~ Signed [facility] Work Phone: Hospital Discharge instructionsAdditional Instructions Decrease your Lantus dosing to 5 units at night and make adjustments as indicated by twice daily blood sugar measurements in conjunction with your doctor.[facility] Work Phone: Hospital Discharge instructionsAmbulatory Orders* Prior Authorization Referral - ONC/HEM Location: None Selected * Palliative Medicine Location: None Selected [facility] Work Phone: Progress note Author Luna Ashton [facility] Note Date/Time November 23, 2024 11:19am [facility] [address] [place] [address] [place] [address] OFFICE VISIT Date of Service: 11/23/24 MR#: [id number] Acct: [id number] Name: LINA VARGAS Rep #: [id number] : 1940 Provider: Dr. 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 Told [...] radiating pain into other parts of body. PFSH Medical History Lumbar strain Low back pain [...] HPI Chief Complaint: Back Pain Details: LINA VARGAS, is a 83 M who presents to the office today for severe back pain. About 3 weeks ago he bent over and had a severe pain in his back. In spite of the severity of the pain he went on a cruise to [place] but was in a wheelchair all the [...] No 11/23/24 1122 <Electronically signed by Luna R Bro wn DO> Date _ Lnua Ashton DO Cosigner Signature: Date (if applicable) CC: ~ [facility] Work Phone: Progress note [facility] Medical Records Department [address] [place] [address] Progress Note - Hospitalist 12/04/24826 MR#: [id number] Acct: [id number] Name: LINA VARGAS Rep #:[id number] : 1940 83 From: Claire Mazariegos MD PCP: Dr. Luna Ashton, DO Status:AD IN Location: [place] [address]- 1 Reason for Visit Chief Complaint: N/V, generalized weakness Subjective Subjective Reportedly ate well yesterday but then was feeling nauseous overnight and also having reflux symptoms, it was reported that he has been Gaviscon and Tums everynight to the reflux symptoms. Today not eating or drinking well. Has been moretired since receiving Compazine for his nausea. Denying any shortness of breathor abdominal pain, reportedly did have a good bowel movement overnight, still making urine. Is still having reflux symptoms Objective Data Objective Data Vital Signs: Vital Signs Temp Pulse Resp BP Pulse Ox O2 Del Method 97.8 F 88 18 147/67 H 100 Room Air 12/04/24 02:09 12/04/24 02:09 12/04/24 02:09 12/04/24 02:09 12/04/24 02:09 12/04/24 02:09 Oxygen Delivery Method Room Air Weight: 74.8 kg Body Mass Index (BMI) 22.4 Intake & Output: Intake and Output for Last 24 Hours 12/02/24 12/03/24 12/04/24 23:59 23:59 23:59 Intake Total 2240 / 2240 1865 / 1865 Output Total 800 / 800 500 / 500 Balance 1440 / 1440 1365 / 1365 Lab / Micro Data 12/04/24 03:43 12/04/24 03:43 Labs: Laboratory Results - last 24 hr 12/03/24 14:24: WBC 8.0, RBC 2.96 L, Hgb 10.7 L, Hct 28.9 L, MCV 97.6 H, MCH 36.1 H, MCHC 37.0 H, RDW Std Deviation 40.3, RDW Coeff of Scotty 11.3 L, Plt Count 206, MPV 9.6, Immature Gran % (Auto) 0.400, Neut % (Auto) 76.6 H, Lymph % (Auto)14.1 L, [place] % (Auto) 8.6, Eos % (Auto) 0.2, Baso % (Auto) 0.1, Absolute Neuts (auto) 6.2, Absolute Lymphs (auto) 1.13, Nucleated RBC % 0, Sodium 126 L, Potassium4.2, Chloride 84 L, Carbon Dioxide 19.5 L, Anion Gap 23 H, BUN 113 H*,Creatinine 8.56 H*, Est GFR (MDRD) Non-Af 6 L, BUN/Creatinine Ratio UNABLE TO CALCULATE L, Glucose 58 L, Calcium 14.6 H*, Phosphorus 5.6 H, Magnesium 5.4 H*, Total Bilirubin 0.70, AST 29, ALT 25, Alkaline Phosphatase 91, Total Creatine Kinase 47, Total Protein 9.6 H, Albumin 3.6, Globulin 6.1 H, Albumin/Globulin Ratio 0.6 L, Lipase 57, Vitamin D 25-Hydroxy 43.3, TSH 0.591, PTH Intact 15 12/03/24 18:52: POC Glucose 49 L 12/03/24 19:27: POC Glucose 56 L 12/03/24 20:12: Sodium 127 L, Potassium 4.1, Chloride 88 L, Carbon Dioxide 18.5 L, Anion Gap 20 H, BUN 111 H*, Creatinine 8.45 H*, Estim Creat Clear Calc 7.08 L*, Est GFR (MDRD) Non-Af 6 L, BUN/Creatinine Ratio 13.1, Glucose 82, Serum Osmolality 324 H, Calcium 13.0 H* 12/03/24 20:30: POC Glucose 75 12/03/24 20:38: Urine Color Straw, Urine Clarity Clear, Urine pH 7.0, Ur Specific [place] 1.010, Urine Protein 30 H, Urine Glucose (UA) Normal, Urine Ketones Negative, Urine Occult Blood 250 H, UrineNitrite Negative, Urine Bilirubin Negative, Urine Urobilinogen Normal, Ur Leukocyte Esterase 25 H, U rineRBC 10-25 SEEN, Urine WBC 0-5 SEEN, Ur Squamous Epith Cells 0-5 SEEN, Urine Bacteria RARE, Urine Mucus 0 SEEN, Urine Osmolality 336, Ur Random Microalbumin 101.0, Ur Random Sodium 56, Urine Creatinine 50.10, Microalb/Creat Ratio 201.6 H, Urine Potassium 25.6, Urine Chloride 46, Urine Urea Nitrogen 406 12/04/24 03:43: WBC 6.4, RBC 2.16 L, Hgb 7.9 L, Hct 21.3 L, MCV 98.6 H, MCH 36.6H, MCHC 37.1 H, RDWStd Deviation 41.4, RDW Coeff of Scotty 11.5 L, Plt Count 134 L, MPV 9.7, Immature Gran % (Auto) 0.500, Neut % (Auto) 75.9 H, Lymph % (Auto) 12.1 L, [place] % (Auto) 9.9, Eos % (Auto) 1.4, Baso % (Auto) 0.2, Absolute Neuts (auto) 4.9, Absolute Lymphs (auto) 0.77 L, Nucleated RBC % 0, Sodium 129 L, Potassium 4.4, Chloride 93 L, Carbon Dioxide 21.4, Anion Gap 14, BUN 112 H*, Creatinine 8.49 H*, Estim Creat Clear Calc 6.97 L*, Est GFR (MDRD) Non-Af 6 L, BUN/Creatinine Ratio 13.2, Glucose 72, Calcium 12.3 H, Triglycerides 103, Cholesterol 53, LDL Cholesterol, Calc 7, VLDL Cholesterol 21, HDL Cholesterol 25L, Cholesterol/HDL Ratio 2.09 12/04/24 05:50: POC Glucose 65 L 12/04/24 06:40: POC Glucose 142 H Radiography Diagnostic Testing: Radiology Impression Chest X-Ray 12/03/24 17:20 IMPRESSION: NO ACUTE FINDINGS. Reading Location: [facility] Physical Exam Narrative General: A little bit tired but answering questions appropriately HEENT: Atraumatic, normocephalic Eyes: Anicteric, normal conjunctiva, extraocular movements grossly intact Neck: Supple Respiratory: Clear to auscultation bilaterally, normal respiratory effort Cardiovascular: Regular rate GI: Soft, nontender Extremities: No edema Musculoskeletal: Moving all extremities Neuro: No overt focal neurological deficits Skin: No rashes appreciated Psych: Cooperative Assessment & Plan Assessment/Plan (1) Acute renal failure: PLAN: Plan #Acute kidney failure -Patient with a creatinine around 1.5 at baseline with most recent value 9 months ago being 1.5 to - Presenting now with a creatinine of 8.56 - Bicarb 19.5 - Patient not hyperkalemic - Vitally stable and not volume overloaded - Patient alert, no seizure activity, confusion, altered mental status - Presently does not seem to have any indications for emergent dialysis - Suspect that patient's nausea and vomiting with very poor p.o. intake on top of continuing to take his valsartan/hydrochlorothiazide caused or largely contributed to his worsening renal failure - Patient reportedly had been urinating at home and even urinated this morning however in the ED unable to urinate and has 280 on bladder scan - Unclear if there has been an obstructive component to this as well given patient's report of urinating okay prior to coming in - Will have Monterroso catheter placed given patient reporting he is unable to urinate in the ED and bladder scan shows 280 - IV fluids - Will check UA given reports of suprapubic discomfort - Check urine studies - Kidney and bladder ultrasound -Check CK - Discussed with nephrology, nephrology consult placed -12/04: Despite sodium and calcium improving, kidney function has remained about the same, BUN this a.m. 112 with a creatinine of 8.49. UA with protein and occult blood, rare bacteria and does not seem UA is indicative of infection. FEUrea is 61.8 suggesting intrinsic renal disease. SPEP and UPEP pending, nephrology consulted, kidney and bladder ultrasound ordered, Monterroso catheter in place, patienthas had 1300 output since admission yesterday evening. [place] lambda light chains ordered in addition to protein electrophoresis. Discussed with nephrology. # Hypercalcemia -Unclear if this is secondary to significant dehydration or if this could be a primary process associated with his renal failure and dehydration - Will hydrate with normal saline - Will check PTH and vitamin D - will check Phos - If no or minimal improvement can consider calcitonin and/or bisphosphonates - Will also check serum and urine protein electrophoresis given high calcium with kidney failure, high total protein and globulin, anemia and recent L1 fracture/bone pain in addition to generalized weakness - Chest x-ray also ordered to evaluate for any possible lesions -12/04: Improving with hydration, patient's Phos is high which is likely secondary to his renal failure, notably vitamin D is within normal limits at 43 and PTH is only 15. Suspect that patient's hypercalcemia is largely due to dehydration in addition to his hydrochlorothiazide in addition to multiple calcium based medications being taken daily for reflux but workup still pending. Protein electrophoresis pending and kappa lambda light chains ordered #Hyponatremia -Possibly secondary to dehydration but cannot say definitively, patient additionally on hydrochlorothiazide which will be held - Will order serum osmole's - Check urine studies - TSH - Lipid profile - Monitor I's and O's - Trend BMPs -12/04: Patient actually has elevated serum osmolality with an osmolality of 324 but no hyperglycemia or hyperlipidemia therefore suspect this is either due to his kidney failure with uremia or could possibly pseudohyponatremia due to a paraproteinemia +/- HCTZ, serum and urine protein electrophoresis pending as well as kappa lambda light chains. Notably sodium has slowly up trended to 129 with fluids and cessation of HCTZ, will continue present management while further workup underway # Macrocytic anemia -12/04: Patient with hemoglobin 10.7 on presentation with no previous baseline seen in our system, this a.m. hemoglobin 7.9 which is significant drop but no evidence of ongoing bleeding, suspect the patient was significantly volume depleted/dehydrated and was hemoconcentrated especially given drop in all 3 celllines. MCV is 98.6, will be ordering B12, iron panel, folate #GERD -Continue PPI -12/04: Reportedly patient's been having significant reflux symptoms for the pastyear, takes omeprazole at home and has been taking nightly calcium based products for reflux, patient's reflux may be contributing to his nausea, will place on IV PPI twice daily, avoiding calcium based agents #Hypertension -Will be holding valsartan/hydrochlorothiazide due to the above -12/04: Continue to hold valsartan/hydrochlorothiazide and monitor blood pressure, can consider alternative agent if necessary but will be careful to avoid hypotension #L1 compression fracture - Patient scheduled for kyphoplasty Thursday - Denies taking any NSAIDs or pain medications - Supportive care -12/04: Continue pain control and supportive care #Type 2 diabetes mellitus -Glucose checks and sliding scale insulin - Had somewhat low glucose of 59 on presentation - Will decrease long-acting insulin - Holding sitagliptin and metformin -12/04: Glucose has actually remained low, will discontinue long-acting insulin altogether Chronic medical problems and/or problems not being actively addressed during today's encounter: #Hypothyroidism -Continue Synthroid #DVT ppx: SCDs Claire Mazariegos MD Time spent in the patient's overall evaluation,decision-making process, review of diagnostic data, adjustment of management, discussion with other providers, nursing nursing and ancillary staff involved in patient's care documentation, 56Minutes Charges/Coding Visit Charges Inpatient E&M: 01023 Subs Hosp L3 12/04/24 1305 Cosigner Signature (if applicable): CC: ~ Signed [facility] [address] [place] [address] Progress Note - Hospitalist 12/05/24 0754 MR#: [id number] Acct: [id number] Name: LINA VARGAS Rep #:[id number] : 1940 83 From: Claire Mazariegos MD PCP: Dr. Luna Ashton, DO Status:AD M IN Location: [place] [address] Reason for Visit Chief Complaint: N/V, generalized weakness Subjective Subjective Patient actually feeling a little bit better this morning, less groggy, much less nauseous, reflux symptoms significantly improved with scheduling PPI, stillmaking urine, no new complaints Objective Data Objective Data Vital Signs: Vital Signs Temp Pulse Resp BP Pulse Ox O2 Del Method 97.3 F L 80 16 148/81 H 96 Room Air 12/05/24 03:05 12/05/24 03:05 12/05/24 03:05 12/05/24 03:05 12/05/24 03:05 12/05/24 03:05 Oxygen Delivery Method Room Air Weight: 76.9 kg Body Mass Index (BMI) 23.0 Intake & Output: Intake and Output for Last 24 Hours 12/03/24 12/04/24 12/05/24 23:59 23:59 23:59 Intake Total 2240 / 2240 2390 / 2390 1103.75 / 1103.75 Output Total 800 / 800 1525 / 1525 600 / 600 Balance 1440 / 1440 865 / 865 503.75 / 503.75 Medical Nutrition Assessment Dietitian: Malnutrition Criteria Met Start: 12/04/24 12:12 Freq: Status: Active Protocol: Document 12/04/24 12:12 SLA (Rec: 12/04/24 12:13 SLA [id number]) Nutrition Malnutrition Evidence of Yes Malnutrition Exists Malnutrition (severe Acute Illness/Injury ): Evidenced By Suboptimal Energy Intake (Severe),Weight Loss (Severe) Clinical Problem Acute Disease or Injury Related Malnutrition Etiology related to issues 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 Status Active Problem Recommendation Dietitian Will liberalize diet to Regular w/ glucerna shake tid Recommendations/ at meals - once po intake improves, can adjust to carb Changes controlled diet if indicated. Will continue to follow and monitor for changes in pt nutritional status and make additional rec as indicate. Lab / Micro Data 12/05/24 05:04 12/05/24 05:04 Labs: Laboratory Results - last 24 hr 12/04/24 12:42: POC Glucose 81 12/04/24 17:24: POC Glucose 104 12/04/24 21:10: POC Glucose 132 H 12/05/24 05:04: WBC 5.3, RBC 2.03 L, Hgb 7.3 L, Hct 20.6 L, MCV 101.5 H, MCH 36.0 H, MCHC 35.4, RDWStd Deviation 42.8, RDW Coeff of Scotty 11.6, Plt Count 122 L, MPV 10.3, Sodium 128 L, Potassium 4.1, Chloride 95 L, Carbon Dioxide 19.1 L, Anion Gap 14, BUN 107 H*, Creatinine 8.79 H*, Estim Creat Clear Calc 6.93 L*, Est GFR (MDRD) Non-Af 6 L, BUN/Creatinine Ratio 12.2, Glucose 128 H, Calcium 11.5H, Iron 84, TIBC 188 L, Iron Saturation 44.7, Unsaturated IBC 104 L, Ferritin 453 H, Vitamin B12 456, Serum Folate 6.03 12/05/24 06:01: POC Glucose 118 H Physical Exam Narrative General: Awake and alert, answering questions appropriately HEENT: Atraumatic, normocephalic Eyes: Anicteric, normal conjunctiva, extraocular movements grossly intact Neck: Supple Respiratory: Clear to auscultation bilaterally, normal respiratory effort Cardiovascular: Regular rate GI: Soft, nontender Extremities: No edema Musculoskeletal: Moving all extremities Neuro: No overt focal neurological deficits Skin: No rashes appreciated Psych: Cooperative Assessment & Plan Assessment/Plan (1) Acute renal failure: PLAN: Plan #Acute kidney failure -Patient with a creatinine around 1.5 at baseline with most recent value 9 months ago being 1.5 to - Presenting now with a creatinine of 8.56 - Bicarb 19.5 - Patient not hyperkalemic - Vitally stable and not volume overloaded - Patient alert, no seizure activity, confusion, altered mental status - Presently does not seem to have any indications for emergent dialysis - Suspect that patient's nausea and vomiting with very poor p.o. intake on top of continuing to take his valsartan/hydrochlorothiazide caused or largely contributed to his worsening renal failure - Patient reportedly had been urinating at home and even urinated this morning however in the ED unable to urinate and has 280 on bladder scan - Unclear if there has been an obstructive component to this as well given patient's report of urinating okay prior to coming in - Will have Monterroso catheter placed given patient reporting he is unable to urinate in the ED and bladder scan shows 280 - IV fluids - Will check UA given reports of suprapubic discomfort - Check urine studies - Kidney and bladder ultrasound -Check CK - Discussed with nephrology, nephrology consult placed -12/04: Despite sodium and calcium improving, kidney function has remained about the same, BUN this a.m. 112 with a creatinine of 8.49. UA with protein and occult blood, rare bacteria and does not seem UA is indicative of infection. FEUrea is 61.8 suggesting intrinsic renal disease. SPEP and UPEP pending, nephrology consulted, kidney and bladder ultrasound ordered, Monterroso catheter in place, patienthas had 1300 output since admission yesterday evening. [place] lambda light chains ordered in addition to protein electrophoresis. Discussed with nephrology. -12/05: BUN 107 with a creatinine slightly worse of 8.79, still making urine, nephrology following, lab workup pending, kidney and bladder ultrasound is ordered and pending # Hypercalcemia -Unclear if this is secondary to significant dehydration or if this could be a primary process associated with his renal failure and dehydration - Will hydrate with normal saline - Will check PTH and vitamin D - will check Phos - If no or minimal improvement can consider calcitonin and/or bisphosphonates - Will also check serum and urine protein electrophoresis given high calcium with kidney failure, high total protein and globulin, anemia and recent L1 fracture/bone pain in addition to generalized weakness - Chest x-ray also ordered to evaluate for any possible lesions -12/04: Improving with hydration, patient's Phos is high which is likely secondary to his renal failure, notably vitamin D is within normal limits at 43 and PTH is only 15. Suspect that patient's hypercalcemia is largely due to dehydration in addition to his hydrochlorothiazide in addition to multiple calcium based medications being taken daily for reflux but workup still pending. Protein electrophoresis pending and kappa lambda light chains ordered -12/05: Still slightly elevated at 11.5 but has consistently continued to improve, continue IV fluids and avoiding calcium based agents, continue to hold hydrochlorothiazide #Hyponatremia -Possibly secondary to dehydration but cannot say definitively, patient additionally on hydrochlorothiazide which will be held - Will order serum osmole's - Check urine studies - TSH - Lipid profile - Monitor I's and O's - Trend BMPs -12/04: Patient actually has elevated serum osmolality with an osmolality of 324 but no hyperglycemia or hyperlipidemia therefore suspect this is either due to his kidney failure with uremia or could possibly pseudohyponatremia due to a paraproteinemia +/- HCTZ, serum and urine protein electrophoresis pending as well as kappa lambda light chains. Notably sodium has slowly up trended to 129 with fluids and cessation of HCTZ, will continue present management while further workup underway -12/05: Sodium of 128, seems to have stabilized, do suspect that this is at leastin part due to renal disease with uremia, continue to monitor, continue to hold hydrochlorothiazide # Macrocytic anemia -12/04: Patient with hemoglobin 10.7 on presentation with no previous baseline seen in our system, this a.m. hemoglobin 7.9 which is significant drop but no evidence of ongoing bleeding, suspect the patient was significantly volume depleted/dehydrated and was hemoconcentrated especially given drop in all 3 celllines. MCV is 98.6, will be ordering B12, iron panel, folate -12/05: Hemoglobin slightly lower today, in part likely due to dilution and blooddraws, 7.2 this a.m.. Folate is technically within normal limits but on the lowside so we will start folic acid but [id number] normal limits, iron and iron saturation within normal limits with elevated ferritin. 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 #GERD -Continue PPI -12/04: Reportedly patient's been having significant reflux symptoms for the pastyear, takes omeprazole at home and has been taking nightly calcium based products for reflux, patient's reflux may be contributing to his nausea, will place on IV PPI twice daily, avoiding calcium based agents -12/05: Patient now on IV PPI every 12, avoiding calcium based agents, symptoms significantly improved #Hypertension -Will be holding valsartan/hydrochlorothiazide due to the above -12/04: Continue to hold valsartan/hydrochlorothiazide and monitor blood pressure, can consider alternative agent if necessary but will be careful to avoid hypotension -12/05: Hydralazine as needed if needed, continue to hold ARB and HCTZ #L1 compression fracture - Patient scheduled for kyphoplasty Thursday - Denies taking any NSAIDs or pain medications - Supportive care -12/04: Continue pain control and supportive care -12/05: Did advise to cancel kyphoplasty appointment given patient still in the hospital and tohold off on rescheduling until we have more answers and a better idea of discharge #Type 2 diabetes mellitus -Glucose checks and sliding scale insulin - Had somewhat low glucose of 59 on presentation - Will decrease long-acting insulin - Holding sitagliptin and metformin -12/04: Glucose has actually remained low, will discontinue long-acting insulin altogether -12/05: Glucose has been more stable overnight, continue to hold long-acting insulin Chronic medical problems and/or problems not being actively addressed during today's encounter: #Hypothyroidism -Continue Synthroid #DVT ppx: SCDs Claire Mazariegos MD Time spent in the patient's overall evaluation,decision-making process, review of diagnostic data, adjustment of management, discussion with other providers, nursing nursing and ancillary staff involved in patient's care documentation, 51Minutes Charges/Coding Visit Charges Inpatient E&M: 13627 Subs Hosp L3 12/05/24 0850 Cosigner Signature (if applicable): CC: ~ Signed [facility] Author Claire Mazariegos [facility] Note Date/Time December 04, 2024 1: 05pm [facility] Medical Records Department [address] [place] [address] Progress Note - Hospitalist 12/04/24826 MR#: [id number] Acct: [id number] Name: LINA VARGAS Rep #:[id number] : 1940 83 From: Claire Mazariegos MD PCP: Dr. Luna Ashton, DO Status:AD M IN Location: [address] Reason for Visit Chief Complaint: N/V, generalized weakness Subjective Subjective Reportedly ate well yesterday but then was feeling nauseous overnight and also having reflux symptoms, it was reported that he has been Gaviscon and Tums everynight to the reflux symptoms. Today not eating or drinking well. Has been moretired since receiving Compazine for his nausea. Denying any shortness of breathor abdominal pain, reportedly did have a good bowel movement overnight, still making urine. Is still having reflux symptoms Objective Data Objective Data Vital Signs: Vital Signs Temp Pulse Resp BP Pulse Ox O2 Del Method 97.8 F 88 18 147/67 H 100 Room Air 12/04/24 02:09 12/04/24 02:09 12/04/24 02:09 12/04/24 02:09 12/04/24 02:09 12/04/24 02:09 Oxygen Delivery Method Room Air Weight: 74.8 kg Body Mass Index (BMI) 22.4 Intake & Output: Intake and Output for Last 24 Hours 12/02/24 12/03/24 12/04/24 23:59 23:59 23:59 Intake Total 2240 / 2240 1865 / 1865 Output Total 800 / 800 500 / 500 Balance 1440 / 1440 1365 / 1365 Lab / Micro Data 12/04/24 03:43 12/04/24 03:43 Labs: Laboratory Results - last 24 hr 12/03/24 14:24: WBC 8.0, RBC 2.96 L, Hgb 10.7 L, Hct 28.9 L, MCV 97.6 H, MCH 36.1 H, MCHC 37.0 H, RDW Std Deviation 40.3, RDW Coeff of [place] 11.3 L, Plt Count 206, MPV 9.6, Immature Gran % (Auto) 0.400, Neut % (Auto) 76.6 H, Lymph % (Auto)14.1 L, [place] % (Auto) 8.6, Eos % (Auto) 0.2, Baso % (Auto) 0.1, Absolute Neuts (auto) 6.2, Absolute Lymphs (auto) 1.13, Nucleated RBC % 0, Sodium 126 L, Potassium 4.2, Chloride 84 L, Carbon Dioxide 19.5 L, Anion Gap 23 H, BUN 113 H*,Creatinine 8.56 H*, Est GFR (MDRD) Non-Af 6 L, BUN/Creatinine Ratio UNABLE TO CALCULATE L, Glucose 58 L, Calcium 14.6 H*, Phosphorus 5.6 H, Magnesium 5.4 H*, Total Bilirubin 0.70, AST 29, ALT 25, Alkaline Phosphatase 91, Total Creatine Kinase 47, Total Protein 9.6 H, Albumin 3.6, Globulin 6.1 H, Albumin/Globulin Ratio 0.6 L, Lipase 57, Vitamin D 25-Hydroxy 43.3, TSH 0.591, PTH Intact 15 12/03/24 18:52: POC Glucose 49 L 12/03/24 19:27: POC Glucose 56 L 12/03/24 20:12: Sodium 127 L, Potassium 4.1, Chloride 88 L, Carbon Dioxide 18.5 L, Anion Gap 20 H, BUN 111 H*, Creatinine 8.45 H*, Estim Creat Clear Calc 7.08 L*, Est GFR (MDRD) Non-Af 6 L, BUN/Creatinine Ratio 13.1, Glucose 82, Serum Osmolality 324 H, Calcium 13.0 H* 12/03/24 20:30: POC Glucose 75 12/03/24 20:38: Urine Color Straw, Urine Clarity Clear, Urine pH 7.0, Ur Specific [place] 1.010, Urine Protein 30 H, Urine Glucose (UA) Normal, Urine Ketones Negative, Urine Occult Blood 250 H, Urine Nitrite Negative, Urine Bilirubin Negative, Urine Urobilinogen Normal, Ur Leukocyte Esterase 25 H, UrineRBC 10-25 SEEN, Urine WBC 0-5 SEEN, Ur Squamous Epith Cells 0-5 SEEN, Urine Bacteria RARE, Urine Mucus 0 SEEN, Urine Osmolality 336, Ur Random Microalbumin 101.0, Ur Random Sodium 56, Urine Creatinine 50.10, Microalb/Creat Ratio 201.6 H, Urine Potassium 25.6, Urine Chloride 46, Urine Urea Nitrogen 406 12/04/24 03:43: WBC 6.4, RBC 2.16 L, Hgb 7.9 L, Hct 21.3 L, MCV 98.6 H, MCH 36.6H, MCHC 37.1 H, RDW Std Deviation 41.4, RDW Coeff of [place] 11.5 L, Plt Count 134 L, MPV 9.7, Immature Gran % (Auto) 0.500, Neut % (Auto) 75.9 H, Lymph % (Auto) 12.1 L, [place] % (Auto) 9.9, Eos % (Auto) 1.4, Baso % (Auto) 0.2, Absolute Neuts (auto) 4.9, Absolute Lymphs (auto) 0.77 L, Nucleated RBC % 0, Sodium 129 L, Potassium 4.4, Chloride 93 L, Carbon Dioxide 21.4, Anion Gap 14, BUN 112 H*, Creatinine 8.49 H*, Estim Creat Clear Calc 6.97 L*, Est GFR (MDRD) Non-Af 6 L, BUN/Creatinine Ratio 13.2, Glucose 72, Calcium 12.3 H, Triglycerides 103, Cholesterol 53, LDL Cholesterol, Calc 7, VLDL Cholesterol 21, HDL Cholesterol 25L, Cholesterol/HDL Ratio 2.09 12/04/24 05:50: POC Glucose 65 L 12/04/24 06:40: POC Glucose 142 H Radiography Diagnostic Testing: Radiology Impression Chest X-Ray 12/03/24 17:20 IMPRESSION: NO ACUTE FINDINGS. Reading Location: [facility] Physical Exam Narrative General: A little bit tired but answering questions appropriately HEENT: Atraumatic, normocephalic Eyes: Anicteric, normal conjunctiva, extraocular movements grossly intact Neck: Supple Respiratory: Clear to auscultation bilaterally, normal respiratory effort Cardiovascular: Regular rate GI: Soft, nontender Extremities: No edema Musculoskeletal: Moving all extremities Neuro: No overt focal neurological deficits Skin: No rashes appreciated Psych: Cooperative Assessment & Plan Assessment/Plan (1) Acute renal failure: PLAN: Plan #Acute kidney failure -Patient with a creatinine around 1.5 at baseline with most recent value 9 months ago being 1.5 to - Presenting now with a creatinine of 8.56 - Bicarb 19.5 - Patient not hyperkalemic - Vitally stable and not volume overloaded - Patient alert, no seizure activity, confusion, altered mental status - Presently does not seem to have any indications for emergent dialysis - Suspect that patient's nausea and vomiting with very poor p.o. intake on top of continuing to take his valsartan/hydrochlorothiazide caused or largely contributed to his worsening renal failure - Patient reportedly had been urinating at home and even urinated this morning however in the ED unable to urinate and has 280 on bladder scan - Unclear if there has been an obstructive component to this as well given patient's report of urinating okay prior to coming in - Will have Monterroso catheter placed given patient reporting he is unable to urinate in the ED and bladder scan shows 280 - IV fluids - Will check UA given reports of suprapubic discomfort - Check urine studies - Kidney and bladder ultrasound -Check CK - Discussed with nephrology, nephrology consult placed -12/04: Despite sodium and calcium improving, kidney function has remained about the same, BUN this a.m. 112 with a creatinine of 8.49. UA with protein and occult blood, rare bacteria and does not seem UA is indicative of infection. FEUrea is 61.8 suggesting intrinsic renal disease. SPEP and UPEP pending, nephrology consulted, kidney and bladder ultrasound ordered, Monterroso catheter in place, patient has had 1300 output since admission yesterday evening. [place] lambda light chains ordered in addition to protein electrophoresis. Discussed with nephrology. # Hypercalcemia -Unclear if this is secondary to significant dehydration or if this could be a primary process associated with his renal failure and dehydration - Will hydrate with normal saline - Will check PTH and vitamin D - will check Phos - If no or minimal improvement can consider calcitonin and/or bisphosphonates - Will also check serum and urine protein electrophoresis given high calcium with kidney failure, high total protein and globulin, anemia and recent L1 fracture/bone pain in addition to generalized weakness - Chest x-ray also ordered to evaluate for any possible lesions -12/04: Improving with hydration, patient's Phos is high which is likely secondary to his renal failure, notably vitamin D is within normal limits at 43 and PTH is only 15. Suspect that patient's hypercalcemia is largely due to dehydration in addition to his hydrochlorothiazide in addition to multiple calcium based medications being taken daily for reflux but workup still pending. Protein electrophoresis pending and kappa lambda light chains ordered #Hyponatremia -Possibly secondary to dehydration but cannot say definitively, patient additionally on hydrochlorothiazide which will be held - Will order serum osmole's - Check urine studies - TSH - Lipid profile - Monitor I's and O's - Trend BMPs -12/04: Patient actually has elevated serum osmolality with an osmolality of 324 but no hyperglycemia or hyperlipidemia therefore suspect this is either due to his kidney failure with uremia or could possibly pseudohyponatremia due to a paraproteinemia +/- HCTZ, serum and urine protein electrophoresis pending as well as kappa lambda light chains. Notably sodium has slowly up trended to 129 with fluids and cessation of HCTZ, will continue present management while further workup underway # Macrocytic anemia -12/04: Patient with hemoglobin 10.7 on presentation with no previous baseline seen in our system, this a.m. hemoglobin 7.9 which is significant drop but no evidence of ongoing bleeding, suspect the patient was significantly volume depleted/dehydrated and was hemoconcentrated especially given drop in all 3 celllines. MCV is 98.6, will be ordering B12, iron panel, folate #GERD -Continue PPI -12/04: Reportedly patient's been having significant reflux symptoms for the pastyear, takes omeprazole at home and has been taking nightly calcium based products for reflux, patient's reflux may be contributing to his nausea, will place on IV PPI twice daily, avoiding calcium based agents #Hypertension -Will be holding valsartan/hydrochlorothiazide due to the above -12/04: Continue to hold valsartan/hydrochlorothiazide and monitor blood pressure, can consider alternative agent if necessary but will be careful to avoid hypotension #L1 compression fracture - Patient scheduled for kyphoplasty Thursday - Denies taking any NSAIDs or pain medications - Supportive care -12/04: Continue pain control and supportive care #Type 2 diabetes mellitus -Glucose checks and sliding scale insulin - Had somewhat low glucose of 59 on presentation - Will decrease long-acting insulin - Holding sitagliptin and metformin -12/04: Glucose has actually remained low, will discontinue long-acting insulin altogether Chronic medical problems and/or problems not being actively addressed during today's encounter: #Hypothyroidism -Continue Synthroid #DVT ppx: SCDs Claire Mazariegos MD Time spent in the patient's overall evaluation,decision-making process, review of diagnostic data, adjustment of management, discussion with other providers, nursing nursing and ancillary staff involved in patient's care documentation, 56Minutes Charges/Coding Visit Charges Inpatient E&M: 55395 Subs Hosp L3 12/04/24 1305 <Electronically signed by Claire Mazariegos MD> Cosigner Signature (if applicable): CC: ~ Signed [facility] Work Phone: Progress note Author Claire Mazariegos [facility] Note Date/Time December 05, 2024 8: 50am [facility] Medical Records Department [address] [place] [address] Progress Note - Hospitalist 12/05/24 6600 MR#: [id number] Acct: [id number] Name: LINA VARGAS Rep #:[id number] : 1940 83 From: Claire Mazariegos MD PCP: Dr. Luna Ashton, DO Status:AD M IN Location: [place] [address] Reason for Visit Chief Complaint: N/V, generalized weakness Subjective Subjective Patient actually feeling a little bit better this morning, less groggy, much less nauseous, reflux symptoms significantly improved with scheduling PPI, stillmaking urine, no new complaints Objective Data Objective Data Vital Signs: Vital Signs Temp Pulse Resp BP Pulse Ox O2 Del Method 97.3 F L 80 16 148/81 H 96 Room Air 12/05/24 03:05 12/05/24 03:05 12/05/24 03:05 12/05/24 03:05 12/05/24 03:05 12/05/24 03:05 Oxygen Delivery Method Room Air Weight: 76.9 kg Body Mass Index (BMI) 23.0 Intake & Output: Intake and Output for Last 24 Hours 12/03/24 12/04/24 12/05/24 23:59 23:59 23:59 Intake Total 2240 / 2240 2390 / 2390 1103.75 / 1103.75 Output Total 800 / 800 1525 / 1525 600 / 600 Balance 1440 / 1440 865 / 865 503.75 / 503.75 Medical Nutrition Assessment Dietitian: Malnutrition Criteria Met Start: 12/04/24 12:12 Freq: Status: Active Protocol: Document 12/04/24 12:12 SLA (Rec: 12/04/24 12:13 SLA [id number]) Nutrition Malnutrition Evidence of Yes Malnutrition Exists Malnutrition (severe Acute Illness/Injury ): Evidenced By Suboptimal Energy Intake (Severe),Weight Loss (Severe) Clinical Problem Acute Disease or Injury Related Malnutrition Etiology related to issues 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 Status Active Problem Recommendation Dietitian Will liberalize diet to Regular w/ glucerna shake tid Recommendations/ at meals - once po intake improves, can adjust to carb Changes controlled diet if indicated. Will continue to follow and monitor for changes in pt nutritional status and make additional rec as indicate. Lab / Micro Data 12/05/24 05:04 12/05/24 05:04 Labs: Laboratory Results - last 24 hr 12/04/24 12:42: POC Glucose 81 12/04/24 17:24: POC Glucose 104 12/04/24 21:10: POC Glucose 132 H 12/05/24 05:04: WBC 5.3, RBC 2.03 L, Hgb 7.3 L, Hct 20.6 L, MCV 101.5 H, MCH 36.0 H, MCHC 35.4, RDW Std Deviation 42.8, RDW Coeff of Scotty 11.6, Plt Count 122 L, MPV 10.3, Sodium 128 L, Potassium 4.1, Chloride 95 L, Carbon Dioxide 19.1 L, Anion Gap 14, BUN 107 H*, Creatinine 8.79 H*, Estim Creat Clear Calc 6.93 L*, Est GFR (MDRD) Non- Af 6 L, BUN/Creatinine Ratio 12.2, Glucose 128 H, Calcium 11.5H, Iron 84, TIBC 188 L, Iron Saturation 44.7, Unsaturated IBC 104 L, Ferritin 453 H, Vitamin B12 456, Serum Folate 6.03 12/05/24 06:01: POC Glucose 118 H Physical Exam Narrative General: Awake and alert, answering questions appropriately HEENT: Atraumatic, normocephalic Eyes: Anicteric, normal conjunctiva, extraocular movements grossly intact Neck: Supple Respiratory: Clear to auscultation bilaterally, normal respiratory effort Cardiovascular: Regular rate GI: Soft, nontender Extremities: No edema Musculoskeletal: Moving all extremities Neuro: No overt focal neurological deficits Skin: No rashes appreciated Psych: Cooperative Assessment & Plan Assessment/Plan (1) Acute renal failure: PLAN: Plan #Acute kidney failure -Patient with a creatinine around 1.5 at baseline with most recent value 9 months ago being 1.5 to - Presenting now with a creatinine of 8.56 - Bicarb 19.5 - Patient not hyperkalemic - Vitally stable and not volume overloaded - Patient alert, no seizure activity, confusion, altered mental status - Presently does not seem to have any indications for emergent dialysis - Suspect that patient's nausea and vomiting with very poor p.o. intake on top of continuing to take his valsartan/hydrochlorothiazide caused or largely contributed to his worsening renal failure - Patient reportedly had been urinating at home and even urinated this morning however in the ED unable to urinate and has 280 on bladder scan - Unclear if there has been an obstructive component to this as well given patient's report of urinating okay prior to coming in - Will have Monterroso catheter placed given patient reporting he is unable to urinate in the ED and bladder scan shows 280 - IV fluids - Will check UA given reports of suprapubic discomfort - Check urine studies - Kidney and bladder ultrasound -Check CK - Discussed with nephrology, nephrology consult placed -12/04: Despite sodium and calcium improving, kidney function has remained about the same, BUN this a.m. 112 with a creatinine of 8.49. UA with protein and occult blood, rare bacteria and does not seem UA is indicative of infection. FEUrea is 61.8 suggesting intrinsic renal disease. SPEP and UPEP pending, nephrology consulted, kidney and bladder ultrasound ordered, Monterroso catheter in place, patient has had 1300 output since admission yesterday evening. [place] lambda light chains ordered in addition to protein electrophoresis. Discussed with nephrology. -12/05: BUN 107 with a creatinine slightly worse of 8.79, still making urine, nephrology following, lab workup pending, kidney and bladder ultrasound is ordered and pending # Hypercalcemia -Unclear if this is secondary to significant dehydration or if this could be a primary process associated with his renal failure and dehydration - Will hydrate with normal saline - Will check PTH and vitamin D - will check Phos - If no or minimal improvement can consider calcitonin and/or bisphosphonates - Will also check serum and urine protein electrophoresis given high calcium with kidney failure, high total protein and globulin, anemia and recent L1 fracture/bone pain in addition to generalized weakness - Chest x-ray also ordered to evaluate for any possible lesions -12/04: Improving with hydration, patient's Phos is high which is likely secondary to his renal failure, notably vitamin D is within normal limits at 43 and PTH is only 15. Suspect that patient's hypercalcemia is largely due to dehydration in addition to his hydrochlorothiazide in addition to multiple calcium based medications being taken daily for reflux but workup still pending. Protein electrophoresis pending and kappa lambda light chains ordered -12/05: Still slightly elevated at 11.5 but has consistently continued to improve, continue IV fluids and avoiding calcium based agents, continue to hold hydrochlorothiazide #Hyponatremia -Possibly secondary to dehydration but cannot say definitively, patient additionally on hydrochlorothiazide which will be held - Will order serum osmole's - Check urine studies - TSH - Lipid profile - Monitor I's and O's - Trend BMPs -12/04: Patient actually has elevated serum osmolality with an osmolality of 324 but no hyperglycemia or hyperlipidemia therefore suspect this is either due to his kidney failure with uremia or could possibly pseudohyponatremia due to a paraproteinemia +/- HCTZ, serum and urine protein electrophoresis pending as well as kappa lambda light chains. Notably sodium has slowly up trended to 129 with fluids and cessation of HCTZ, will continue present management while further workup underway -12/05: Sodium of 128, seems to have stabilized, do suspect that this is at leastin part due to renal disease with uremia, continue to monitor, continue to hold hydrochlorothiazide # Macrocytic anemia -12/04: Patient with hemoglobin 10.7 on presentation with no previous baseline seen in our system, this a.m. hemoglobin 7.9 which is significant drop but no evidence of ongoing bleeding, suspect the patient was significantly volume depleted/dehydrated and was hemoconcentrated especially given drop in all 3 celllines. MCV is 98.6, will be ordering B12, iron panel, folate -12/05: Hemoglobin slightly lower today, in part likely due to dilution and blooddraws, 7.2 this a.m.. Folate is technically within normal limits but on the lowside so we will start folic acid but B12 within normal limits, iron and iron saturation within normal limits with elevated ferritin. 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 #GERD -Continue PPI -12/04: Reportedly patient's been having significant reflux symptoms for the pastyear, takes omeprazole at home and has been taking nightly calcium based products for reflux, patient's reflux may be contributing to his nausea, will place on IV PPI twice daily, avoiding calcium based agents -12/05: Patient now on IV PPI every 12, avoiding calcium based agents, symptoms significantly improved #Hypertension -Will be holding valsartan/hydrochlorothiazide due to the above -12/04: Continue to hold valsartan/hydrochlorothiazide and monitor blood pressure, can consider alternative agent if necessary but will be careful to avoid hypotension -12/05: Hydralazine as needed if needed, continue to hold ARB and HCTZ #L1 compression fracture - Patient scheduled for kyphoplasty Thursday - Denies taking any NSAIDs or pain medications - Supportive care -12/04: Continue pain control and supportive care -12/05: Did advise to cancel kyphoplasty appointment given patient still in the hospital and to hold off on rescheduling until we have more answers and a better idea of discharge #Type 2 diabetes mellitus -Glucose checks and sliding scale insulin - Had somewhat low glucose of 59 on presentation - Will decrease long-acting insulin - Holding sitagliptin and metformin -12/04: Glucose has actually remained low, will discontinue long-acting insulin altogether -12/05: Glucose has been more stable overnight, continue to hold long-acting insulin Chronic medical problems and/or problems not being actively addressed during today's encounter: #Hypothyroidism -Continue Synthroid #DVT ppx: SCDs Claire Mazariegos MD Time spent in the patient's overall evaluation,decision-making process, review of diagnostic data, adjustment of management, discussion with other providers, nursing nursing and ancillary staff involved in patient's care documentation, 51Minutes Charges/Coding Visit Charges Inpatient E&M: 95883 Subs Hosp L3 12/05/24 0850 <Electronically signed by Claire Mazariegos MD> Cosigner Signature (if applicable): CC: ~ Signed [facility] Work Phone: Progress note Author Adalid King [facility] Note Date/Time December 14, 2024 4 :02pm [facility] [address] [address] OFFICE VISIT Date of Service: 12/14/24 1427 MR#: [id number] Acct: [id number] Name: LINA VARGAS Rep #: [id number] : 1940 From: Adalid arciniega MD Age/Sex: 84/M Location: [facility] Status: Signed HPI Subjective Date of Service 12/14/24 Chief Complaint Multiple myeloma History of Present Illness 84-year-old gentleman who was in his usual state of health until October 2024 when he developed acute back pain after lifting up a 40 pound heavy container of water and was found to have developed a compression fracture of L1 vertebra. November 25, 2024 lumbar spine MRI: IMPRESSION: Acute-subacute superior endplate compression fracture of L1, with minimal heightloss and no retropulsion. This fracture was noted on 11/15/2024 radiographs, but is new since 07/10/2022. Multilevel spondylotic changes, as described above. Moderate-advanced spinal canal stenosis at L2-3 and L3-4, with crowding/impingement of the cauda equina at these levels. Neural foraminal narrowing is most advanced bilaterally at L3-4. More mild elsewhere. December 03-2024: Patient was hospitalized with acute on chronic kidney failure, anemia and malignant hypercalcemia. The patient had to be started and discharged on dialysis. 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 December 08, 2024 skeletal survey: IMPRESSION: 1. Subtle round lucencies within the bilateral humeri and right radius, concerning for underlying malignancy. 2. Questionable moth-eaten appearance of the inferior aspects of the bony pelviscould be due to summation of shadows and overlying structures, however an infiltrative process can not be excluded. December 09, 2024 bone marrow aspirate and biopsy: Lambda light chain restricted plasma cell neoplasm, hypercellular marrow (50%), adequate iron. Plasma cells 44% on aspirate smear. Cytogenetics and FISH are pending. [facility] Medical History Type II diabetes mellitus Anemia Multiple myeloma CKD (chronic kidney disease) stage 1, GFR 90 ml/min or greater Trigger finger of right hand Apical variant hypertrophic cardiomyopathy HLD (hyperlipidemia) Shingles (herpes zoster) polyneuropathy Acute urticaria GERD (gastroesophageal reflux disease) Hypothyroidism Surgical History (Updated 12/14/24 @ 14:39 by Magdalena Corral) History of back surgery History of left knee surgery History of appendectomy History of cardiac cath Family History Father Heart disease Mother CVA (cerebral vascular accident) Hypertension Breast cancer Social History (Updated 12/14/24 @ 14:38 by Magdalena Corral) Smoking Status: Former smoker Tobacco: How many years used: 2 how long ago did patient quit smokin alcohol intake: never substance use type: does not use ROS Constitutional Constitutional: Reports anorexia, fatigue and weight loss; Denies fever(s) or night sweats Eyes Eyes: Reports systems reviewed and no addt'l complaints, except as documented ENT HEENT: Reports systems reviewed and no addt'l complaints, except as documented; Denies mouth lesions Cardiovascular Cardiovascular: Reports systems reviewed and no addt'l complaints, except as documented; Denies chest pain with activity or edema Respiratory/Chest Respiratory/Chest: Reports systems reviewed and no addt'l complaints, except as documented; Denies cough or dyspnea on exertion Gastrointestinal Gastrointestinal: Reports systems reviewed and no addt'l complaints, except as documented and heartburn; Denies abdominal pain, change in bowel habits, dysphagia, fecal incontinence, hematochezia, melena or nausea Genitourinary Genitourinary: Reports systems reviewed and no addt'l complaints, except as documented; Denies dysuria, hematuria or urinary incontinence Musculoskeletal Musculoskeletal: Reports systems reviewed and no addt'l complaints, except as documented and back pain Integumentary Integumentary: Reports systems reviewed and no addt'l complaints, except as documented; Denies new lesions Neurologic Neurologic: Reports systems reviewed and no addt'l complaints, except as documented and paresthesias RLE (Has chronic diabetic neuropathy in the lower extremities) and LLE; Denies focal weakness, frequent falls or numbness Psychiatric Psychiatric: Reports systems reviewed and no addt'l complaints, except as documented Endocrine Endocrinology: Reports systems reviewed and no addt'l complaints, except as documented Hematologic/Lymphatic Hematologic/Lymphatic: Reports systems reviewed and no addt'l complaints, exceptas documented and anemia; Denies easy bleeding, easy bruising or lymphadenopathy Allergic/Immunologic Allergic/Immunologic: Reports systems reviewed and no addt'l complaints, except as documented Intake Vital Signs 12/07/24 13:56 12/10/24 10:22 12/14/24 14:29 12/14/24 14:40 Height 6 ft 0.05 in 6 ft 0.05 in 6 ft 0.05 in 6 ft BP 122/70 H Blood Pressure Location Lt brachial Position Sitting Respiration 18 Pulse 79 Pulse Source Monitor Temp 97.8 F Temperature Source Temporal Artery Pulse Oximetry (%) 92 Oxygen Delivery Method room air Intake Is patient in pain?: Yes (back pain from a fracture ) Allergies meloxicam (From Mobic) Allergy (Severe, Verified 12/14/24 14:36) unknown pentazocine (From Talwin) Allergy (Severe, Verified 12/14/24 14:36) unknown metaxalone Adverse Reaction (Intermediate, Verified 12/14/24 14:36) Nausea Medications ?Medication ?Instructions ?Recorded ?Confirmed ?Type blood sugar diagnostic (True #100 02/11/23 12/14/24 Rx Metrix Glucose Test Strip) blood-glucose meter #1 02/11/23 12/14/24 Rx atorvastatin 20 mg tablet 20 mg PO QDAY #90 tabs 09/2912/14/24 Rx lancets 30 gauge (Unilet Lancets) #100 ea 09/29/24 Rx levothyroxine 100 mcg tablet 100 mcg PO DAILY #100 tab s 09/29/24 12/14/24 Rx pen needle, diabetic 29 gauge x #100 ea 09/29/2412/14 Rx 1/2 (CareFine Pen Needle) ondansetron 4 mg disintegrating 4 mg PO Q8H PRN nausea and 11/29/24 12/14/24 Rx tablet vomiting #14 tabs insulin glargine 100 unit/mL (3 21 unit subcut QHS 06/2412/14/24 History mL) subcutaneous pen (Lantus Solostar U-100 Insulin) magnesium 250 mg tablet 250 mg PO QHS 12/03/2412/14 History amlodipine 5 mg tablet 5 mg PO DAILY 30 days #30 ta bs 12/12/24 12/14/24 Rx metoprolol tartrate 25 mg tablet 25 mg PO BID 30 days #60 tabs 12/12/24 12/14/24 Rx mirtazapine 15 mg tablet 7.5 mg (1/2 x 15 mg) PO QHS 30 12/12/24 12/14/24 Rx days #15 tabs dexamethasone 4 mg tablet 40 mg (10 x 4 mg) PO QDAY #9 0 tabs 12/14/24 12/14/24 Rx omeprazole 20 mg capsule,delayed 20 mg PO BID #100 cap s 12/14/24 12/14/24 Rx release Have you fallen in the past year?: No Central Venous Access Central Venous Access: No See under HPI Laboratory Tests 03/22/24 12/03/24 12/03/24 10:03 14:24 20:12 WBC Hgb 10.7 L Plt Count Creatinine 1.52 H 8.56 H* Calcium 14.6 H* OMERO M-David Comment: Free [place] LC, Quant Free Lambda LC, Quant Free [place]/Lambda Ratio 12/04/24 12/05/24 12/12/24 03:43 05:04 04:45 WBC 3.6 L Hgb 7.9 L Plt Count 147 L Creatinine 5.84 H Calcium 10.3 OMERO M-David Free [place] LC, Quant 23.3 H Free Lambda LC, Quant 1177.7 H Free [place]/Lambda Ratio 0.02 L Exam Physical Exam Narrative ECOG 2, seen in a wheelchair mainly because of back pain Const alert and oriented x3 General Appearance: cooperative HEENT normocephalic Face and Sinus: normal facial exam Mouth: oral and palatal mucosa normal Eyes General Eye: normal appearance of both eyes Neck no lymphadenopathy and no JVD Chest Chest: vascular access Resp clear to auscultation bilaterally Cardio regular rate and regular rhythm Jugular Venous Distention: Negative for JVD GI soft to palpation, non-tender and non-distended; Negative for hepatosplenomegaly Back/Spine no thoracic nor lumbar tenderness Extremity no clubbing, cyanosis or edema Skin no rashes or lesions noted Neuro oriented x3, CN's II-XII intact bilaterally, moves all extremities and no focal motor deficits Coordination / Balance: [id number] test normal Speech: speech normal Gait (Neuro): unable to assess gait Psych mental status grossly normal Coding Level of Care Code Off vis,new,level 5 Exam Problem Focused Diagnoses Multiple myeloma C90.00 Anemia D64.9 Acute renal failure N17.9 Assessment and Plan Assessment and Plan (1) Multiple myeloma: Status: Acute (2) Anemia: Status: Chronic (3) Acute renal failure: Status: Acute Orders: Referrals Prior Authorization Referral - ONC/HEM C90.00 - Multiple myeloma not having achieved remission Medications: New dexamethasone Take 40 mg daily for 4 days starting December 15, 2024 then once weekly on days of chemotherapy 40 mg (10 x 4 mg) PO QDAY 90 tabs 2RF C90.00 - Multiple myeloma not having achieved remission Plan 84-year-old gentleman with IgA lambda multiple myeloma presenting October - November 2024 with acute back pain due to compression fracture of L1, acute on chronic renal failure, malignant hypercalcemia, anemia. 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 Patient started on dialysis November 2024. Hypercalcemia resolved with vigorous hydration. Chronic comorbid conditions: Diabetes, peripheral neuropathy, chronic renal failure, dyslipidemia, coronary artery disease, hypertension, hypothyroidism, chronic GERD. Plan: Based on NCCN guidelines on up-to-date review of initial management of multiple myeloma and presence of acute renal failure: 1. Systemic triple therapy with Velcade, daratumumab and dexamethasone. 2. VTE prophylaxis with low-dose aspirin. 3. Shingles prophylaxis with acyclovir and ensuring he is up-to-date with shingles vaccine. Stay up-to-date with flu and pneumococcal vaccinations. 4. Palliative referral for symptom management and medical management of back pain. 5. Patient was seen and is to follow-up with pain management with planned procedural pain relief for his back pain. 6. Patient has been referred to outpatient physical therapy. 7. Continue with dialysis as per nephrology. There is probability with treatment of myeloma he may be able to come off dialysis. 8. Obtain insurance authorization for therapy and schedule a formal anticancer therapy session. 9. Obtain dental clearance for bone supportive therapy with denosumab. Bisphosphonates will not be used because of advanced kidney failure. 10. Advanced directives discussed with patient he named his as his power of catering associate and he has a living well with DNR. 11. Medical management including diabetes expected worsening on the days of steroids deferred to Dr. Ashton. Patient was seen with his and daughter impression and plan discussed. Adalid King MD Network Planner, [facility] Divisions of Medical Oncology & Hematology Department of Internal Medicine [place] [address] Insert ana Clinical Quality Measures Falls Risk Screening/Assistive Devices Have you fallen in the past year?: No 12/14/24 1621 <Electronically signed by Adalid bustos MD> Date _ Adalid King MD Cosigner Signature: Date (if applicable) CC: Dr. Luna Ashton, DO; Dr. Alyssia Bah MD; Dr. Suraj Paz MD; Dr. Suraj Pastor MD; Dr. Claire Mazariegos MD ~ [facility] Work Phone: Reason for referral (narrative)No reason for referral information availableBlMonterey Park [facility] Work Phone: Summary Purpose Family History No Family History Records Found Relationship Condition Age at Onset Recorded Date/T melissa father Cardiac disease Unknown mother Cerebrovascular accident (CVA) Unknown Hypertension Unknown Malignant neoplasm of breast Unknown Advance Directives No Advanced Directives Records Found Advance Directive Response Recorded Date/ Time Do you have a Healthcare Power of Ship Purser? Yes December 03, 2024 5:47pm Advance Directive Response Recorded Date/ Time Do you have a Healthcare Power of Ship Purser? Yes December 03, 2024 5:47pm Advance Directives on File Yes Octob er 2024 10:11am Living Will Yes December 26 10:11am Do you have a Healthcare Power of Ship Purser? Yes December 26, 2024 10:11am Name of Medical Power of Ship Purser Crystal Vargas December 26, 2024 10:11am Advance Directives Yes December 26, 2024 10:11am Advance Directive Response Recorded Date/ Time Do you have a Healthcare Power of Ship Purser? Yes December 03, 2024 4:47pm Advance Directives on File Yes Octob er 2024 9:11am Living Will Yes December 26 9:11am Do you have a Healthcare Power of Ship Purser? Yes December 26, 2024 9:11am Name of Medical Power of Ship Purser Crystal Vargas December 26, 2024 9:11am Advance Directives Yes December 26, 2024 9:11am Chief Complaint and Reason for Visit Chief [...] duration less than 6 weeks HTN (hypertension) [id number] Chief Complaint 3 M FU 3 M [...] lumbar verteb ra November 23, 2024 10:33am Chief Complaint Admit Date 3 m fu September 29, 2024 2:02 pm NAUSEA WITH FATTY FOODS,EPIGASTRIC PAIN October 04, 2024 9:56am CHEST PAIN October 19, 2024 9: 42am CHEST PAIN October 19, 2024 6: 26pm back pain November 15, 2024 12:00pm Lower Right Back Pain November 15 12:50pm BACK PAIN November 23, 2024 10:33am possible compression fracture November 25, 2024 2:42pm ACUTE KIDNEY FAILURE December 03, 2024 5 :03pm ACUTE KIDNEY FAILURE December 04, 2024 8 :27am ACUTE KIDNEY FAILURE December 05, 2024 7 :54am Reason for Visit Admit Date Dyspnea on exertion September 29, 2024 2:02 pm Epigastric pain September 29, 2024 2:02 pm HTN (hypertension) September 29, 2024 2:02 pm Type II diabetes mellitus September 29 2:02pm CKD (chronic kidney disease) stage 1, GFR 90 ml/min or greater September 29, 2024 2:02pm History of hypothyroidism September 29 2:02pm Low back pain November 15, 2024 12:00pm Lumbar strain November 15, 2024 12:00pm Compression fracture of L1 lumbar verteb ra November 23, 2024 10:33am Acute renal failure December 03, 2024 5: 03pm Hypercalcemia December 03, 2024 5: 03pm Chief Complaint Admit Date 3 m fu September 29, 2024 2:02 pm NAUSEA WITH FATTY FOODS,EPIGASTRIC PAIN October 04, 2024 9:56am CHEST PAIN October 19, 2024 9: 42am CHEST PAIN October 19, 2024 6: 26pm back pain November 15, 2024 12:00pm Lower Right Back Pain November 15 12:50pm BACK PAIN November 23, 2024 10:33am possible compression fracture Lesli 26th, 2025 2:42pm ACUTE KIDNEY FAILURE December 03, 2024 5 :03pm ACUTE KIDNEY FAILURE December 04, 2024 8 :27am ACUTE KIDNEY FAILURE December 05, 2024 7 :54am ACUTE KIDNEY FAILURE December 05, 2024 7 :11pm AM EKG December 06, 2024 5: 26am ACUTE KIDNEY FAILURE December 06, 2024 8 :25am ACUTE KIDNEY FAILURE December 06, 2024 9 :47am Arrhythmia December 06, 2024 5: 26am ACUTE KIDNEY FAILURE 2024 7 :46am ACUTE KIDNEY FAILURE 2024 1 0:48am RHYTHM CHANGE December 06, 2024 5: 26am ACUTE KIDNEY FAILURE December 08, 2024 3 :19pm ACUTE KIDNEY FAILURE December 09, 2024 11:56am ACUTE KIDNEY FAILURE December 10, 2024 10:03am ACUTE KIDNEY FAILURE December 11, 2024 10:11am ACUTE KIDNEY FAILURE December 12, 2024 11:26am NEW - MYELOMA - PATH PENDING [facility] December 14, 2024 2:23pm NEW START - LABS - VELCADE/[facility]LY December 19, 2024 11:14am 1 WK - LABS - CHELY/VELCADE December 26, 2024 8:09am 1 UNIT PRBC December 26, 2024 8 :15am Reason for Visit Admit Date Dyspnea on exertion September 29, 2024 2:02 pm Epigastric pain September 29, 2024 2:02 pm HTN (hypertension) September 29, 2024 2:02 pm Type II diabetes mellitus September 29 2:02pm CKD (chronic kidney disease) stage 1, GFR 90 ml/min or greater September 29, 2024 2:02pm History of hypothyroidism September 29 2:02pm Low back pain November 15, 2024 12:00pm Lumbar strain November 15, 2024 12:00pm Compression fracture of L1 lumbar verteb ra November 23, 2024 10:33am Acute renal failure December 03, 2024 5: 03pm Hypercalcemia December 03, 2024 5: 03pm Acute renal failure December 14, 2024 2 :23pm Multiple myeloma December 14, 2024 2 :23pm Anemia December 14, 2024 2 :23pm Acute renal failure December 19, 2024 1 1:14am Multiple myeloma December 19, 2024 1 1:14am Anemia December 19, 2024 1 1:14am Acute renal failure December 26, 2024 8 :09am Multiple myeloma December 26, 2024 8 :09am Anemia December 26, 2024 8 :09am Chief Complaint Admit Date 3 m fu September 29, 2024 2:02 pm NAUSEA WITH FATTY FOODS,EPIGASTRIC PAIN October 04, 2024 9:56am CHEST PAIN October 19, 2024 9: 42am CHEST PAIN October 19, 2024 6: 26pm back pain November 15, 2024 12:00pm Lower Right Back Pain November 15 12:50pm BACK PAIN November 23, 2024 10:33am possible compression fracture November 25, 2024 2:42pm ACUTE KIDNEY FAILURE December 03, 2024 5 :03pm ACUTE KIDNEY FAILURE December 04, 2024 8 :27am ACUTE KIDNEY FAILURE December 05, 2024 7 :54am ACUTE KIDNEY FAILURE December 05, 2024 7 :11pm AM EKG December 06, 2024 5: 26am ACUTE KIDNEY FAILURE December 06, 2024 8 :25am ACUTE KIDNEY FAILURE December 06, 2024 9 :47am Arrhythmia December 06, 2024 5: 26am ACUTE KIDNEY FAILURE 2024 7 :46am ACUTE KIDNEY FAILURE 2024 1 0:48am RHYTHM CHANGE December 06, 2024 5: 26am ACUTE KIDNEY FAILURE December 08, 2024 3 :19pm ACUTE KIDNEY FAILURE December 09, 2024 11:56am ACUTE KIDNEY FAILURE December 10, 2024 10:03am ACUTE KIDNEY FAILURE December 11, 2024 10:11am ACUTE KIDNEY FAILURE December 12, 2024 11:26am NEW - MYELOMA - PATH PENDING [facility] December 14, 2024 2:23pm NEW START - LABS - [facility]LY December 19, 2024 11:14am 1 WK - LABS - CHELY/VELCADE December 26, 2024 8:09am 3 M FU December 29, 2024 1 0:11am 1 WK - LABS - CHELY/VELCADE January 02, 2025 1:23pm 1 UNIT PRBC January 02, 2025 1 :45pm Reason for Visit Admit Date Dyspnea on exertion September 29, 2024 2:02 pm Epigastric pain September 29, 2024 2:02 pm HTN (hypertension) September 29, 2024 2:02 pm Type II diabetes mellitus September 29 2:02pm CKD (chronic kidney disease) stage 1, GFR 90 ml/min or greater September 29, 2024 2:02pm History of hypothyroidism September 29 2:02pm Low back pain November 15, 2024 12:00pm Lumbar strain November 15, 2024 12:00pm Compression fracture of L1 lumbar verteb ra November 23, 2024 10:33am Acute renal failure December 03, 2024 5: 03pm Hypercalcemia December 03, 2024 5: 03pm Acute renal failure December 14, 2024 2 :23pm Multiple myeloma December 14, 2024 2 :23pm Anemia December 14, 2024 2 :23pm Acute renal failure December 19, 2024 1 1:14am Multiple myeloma December 19, 2024 1 1:14am Anemia December 19, 2024 1 1:14am Acute renal failure December 26, 2024 8 :09am Multiple myeloma December 26, 2024 8 :09am Anemia December 26, 2024 8 :09am Acute renal failure December 29, 2024 1 0:11am Compression fracture of L1 lumbar verteb ra December 29, 2024 10:11am Multiple myeloma December 29, 2024 1 0:11am Hypothyroidism December 29, 2024 1 0:11am Type II diabetes mellitus December 29, 2024 10:11am Acute renal failure January 02, 2025 1 :23pm Multiple myeloma January 02, 2025 1 :23pm Anemia January 02, 2025 1 :23pm Additional Source Comments (unrecognized sect ion and content) No Status Records FoundNo Status Records FoundNo Status Records Found INFORMATION SOURCE (unrecogn ized section and content) DATE CREATED AUTHOR 08/21/2017 [facility] ([place]) DATE CREATED AUTHOR AUTHOR'S ORGANIZ ATION 12/25/2024 [facility] DATE CREATED AUTHOR AUTHOR'S ORGANIZ ATION 01/10/2025 [facility] Goals (unrecognized section and content) Goals [...] Active Member Role Status Dates Dr. Luna Ashton DO Family Provider Active Dr. Luna Ashton DO Primary Care Provider Active Team Status: Inactive Member Role Status Dates Dr. Luna Ashton DO Primary Care Pr ovider, Attending Provider, Referring Provider Active Team Status: Inactive Member Role Status Dates Dr. Luna Ashton DO Primary Care Provider, Attend ing Provider Active Team Status: Active Member Role/Relationship Status Dates Dr. Luna Ashton DO Primary Care Provider Active Team Status: Inactive Member Role/Relationship Status Dates Dr. Luna Ashton DO Primary Care Provider Active Start: June 21, 2024 End: June 21, 2024 Dr. Luna Ashton DO Attending Provider Active Start: June 21, 2024 End: June 21, 2024 Dr. Luna Ashton DO Referring Provider Active Start: June 21, 2024 End: June 21, 2024 Team Status: Inactive Member Role/Relationship Status Dates Dr. Luna Ashton DO Primary Care Provider Active Start: September 29, 2024 End: September 29, 2024 Dr. Luna Ashton DO Attending Provider Active Start: September 29, 2024 End: September 29, 2024 Dr. Luna Ashton DO Referring Provider Active Start: September 29, 2024 End: September 29, 2024 Team Status: Inactive Member Role/Relationship Status Dates Dr. Luna Ashton DO Primary Care Provider Active Start: October 04, 2024 End: October 04, 2024 Dr. Luna Ashton DO Attending Provider Active Start: October 04, 2024 End: October 04, 2024 Dr. Luna Ashton DO Referring Provider Active Start: October 04, 2024 End: October 04, 2024 Team Status: Inactive Member Role/Relationship Status Dates Dr. Luna Ashton DO Primary Care Provider Active Start: September 29, 2024 End: September 29, 2024 Dr. Luna Ashton DO Attending Provider Active Start: September 29, 2024 End: September 29, 2024 Dr. Luna Ashton DO Referring Provider Active Start: September 29, 2024 End: September 29, 2024 Team Status: Inactive Member Role/Relationship Status Dates Dr. Luna Ashton DO Primary Care Provider Active Start: October 04, 2024 End: October 04, 2024 Dr. Luna Ashton DO Attending Provider Active Start: October 04, 2024 End: October 04, 2024 Dr. Luna Ashton DO Referring Provider Active Start: October 04, 2024 End: October 04, 2024 Team Status: Inactive Member Role/Relationship Status Dates Dr. Luna Ashton DO Primary Care Provider Active Start: October 19, 2024 End: October 19, 2024 Dr. Luna Ashton DO Attending Provider Active Start: October 19, 2024 End: October 19, 2024 Dr. Luna Ashton DO Referring Provider Active Start: October 19, 2024 End: October 19, 2024 Team Status: Active Member Role/Relationship Status Dates Dr. Luna Ashton DO Primary Care Provider Active Start: October 19, 2024 Dr. Luna Ashton DO Referring Provider Active Start: October 19, 2024 Dr. Luna Ashton DO Other Provider Active S tart: October 19, 2024 Dr. Homer Grey MD Attending Provider Active S tart: October 19, 2024 Team Status: Inactive Member Role/Relationship Status Dates Dr. Luna Ashton DO Primary Care Provider Active Start: November 15, 2024 End: November 15, 2024 Dr. Luna Ashton DO Referring Provider Active Start: November 15, 2024 End: November 15, 2024 MARIAA Tipton Attending Provider Active Start: November 15, 2024 End: November 15, 2024 Team Status: Active Member Role/Relationship Status Dates Dr. Luna Ashton DO Primary Care Provider Active Start: November 15, 2024 MARIAA Tipton Attending Provider Active Start: November 15, 2024 MARIAA Tipton Referring Provider Active Start: November 15, 2024 Team Status: Active Member Role/Relationship Status Dates Dr. Luna Ashton DO Primary care physician Active Team Status: Inactive Member Role/Relationship Status Dates Dr. Luna Ashton DO Primary care physician Active Start: September 29, 2024 End: September 29, 2024 Dr. Luna Ashton DO Attending physician Active Start: September 29, 2024 End: September 29, 2024 Dr. Luna Ashton DO Referring Provider Active Start: September 29, 2024 End: September 29, 2024 Team Status: Inactive Member Role/Relationship Status Dates Dr. Luna Ashton DO Primary care physician Active Start: October 04, 2024 End: October 04, 2024 Dr. Luna Ashton DO Attending physician Active Start: October 04, 2024 End: October 04, 2024 Dr. Luna Ashton DO Referring Provider Active Start: October 04, 2024 End: October 04, 2024 Team Status: Inactive Member Role/Relationship Status Dates Dr. Luna Ashton DO Primary care physician Active Start: October 19, 2024 End: October 19, 2024 Dr. Luna Ashton DO Attending physician Active Start: October 19, 2024 End: October 19, 2024 Dr. Luna Ashton DO Referring Provider Active Start: October 19, 2024 End: October 19, 2024 Team Status: Active Member Role/Relationship Status Dates Dr. Luna Ashton DO Primary care physician Active Start: October 19, 2024 Dr. Luna Ashton DO Referring Provider Active Start: October 19, 2024 Dr. Luna Ashton DO Nurse Practitioner Active Start: October 19, 2024 Dr. Homer Grey MD Attending physician Active Start: October 19, 2024 Team Status: Inactive Member Role/Relationship Status Dates Dr. Luna Ashton DO Primary care physician Active Start: November 15, 2024 End: November 15, 2024 Dr. Luna Ashton DO Referring Provider Active Start: November 15, 2024 End: November 15, 2024 MARIAA Tipton Attending physician Active Start: November 15, 2024 End: November 15, 2024 Team Status: Inactive Member Role/Relationship Status Dates Dr. Luna Ashton DO Primary care physician Active Start: November 15, 2024 End: November 15, 2024 Victor M LEROY PA Attending physician Active Start: November 15, 2024 End: November 15, 2024 MARIAA Tipton Referring Provider Active Start: November 15, 2024 End: November 15, 2024 Team Status: Inactive Member Role/Relationship Status Dates Dr. Luna Ashton DO Primary care physician Active Start: November 23, 2024 End: November 23, 2024 Dr. Luna Ashton DO Attending physician Active Start: November 23, 2024 End: November 23, 2024 Dr. Luna Ashton DO Referring Provider Active Start: November 23, 2024 End: November 23, 2024 Team Status: Active Member Role/Relationship Status Dates Dr. Luna Ashton DO Primary care physician Active Start: November 25, 2024 Dr. Luna Ashton DO Attending physician Active Start: November 25, 2024 Dr. Luna Ashton DO Referring Provider Active Start: November 25, 2024 Team Status: Inactive Member Role/Relationship Status Dates Dr. Luna Ashton DO Primary care physician Active Start: November 25, 2024 End: November 25, 2024 Dr. Luna Ashton DO Attending physician Active Start: November 25, 2024 End: November 25, 2024 Dr. Luna Ashton DO Referring Provider Active Start: November 25, 2024 End: November 25, 2024 Team Status: Active Member Role/Relationship Status Dates Dr. Luna Ashton DO Primary care physician Active Start: December 03, 2024 Dr. Omari Luna MD Emergency Departmen t Physician Active Start: December 03, 2024 Dr. Claire Mazariegos MD Admitting physician Active Start: December 03, 2024 Dr. Claire Mazariegos MD Attending physician Active Start: December 03, 2024 Dr. Alyssia Bah MD Nurse Practitioner Active Start: December 03, 2024 Team Status: Active Member Role/Relationship Status Dates Dr. Luna Ashton DO Primary care physician Active Start: December 04, 2024 Dr. Omari Luna MD Emergency Departmen t Physician Active Start: December 04, 2024 Dr. Claire Mazariegos MD Admitting physician Active Start: December 04, 2024 Dr. Claire Mazariegos MD Attending physician Active Start: December 04, 2024 Dr. Claire Mazariegos MD Nurse Practitioner Active Start: December 04, 2024 Dr. Alyssia Bah MD Nurse Practitioner Active Start: December 04, 2024 Team Status: Active Member Role/Relationship Status Dates Dr. Luna Ashton DO Primary care physician Active Start: December 05, 2024 Dr. Omari Luna MD Emergency Departmen t Physician Active Start: December 05, 2024 Dr. Claire Mazariegos MD Admitting physician Active Start: December 05, 2024 Dr. Claire Mazariegos MD Attending physician Active Start: December 05, 2024 Dr. Claire Mazariegos MD Nurse Practitioner Active Start: December 05, 2024 Dr. Alyssia Bah MD Nurse Practitioner Active Start: December 05, 2024 Team Status: Inactive Member Role/Relationship Status Dates Dr. Luna Ashton DO Primary care physician Active Start: December 03, 2024 End: December 12, 2024 Dr. Omari Luna MD Emergency Departmen t Physician Active Start: December 03, 2024 End: December 12, 2024 Dr. Claire Mazariegos MD Admitting physician Active Start: December 03, 2024 End: December 12, 2024 Dr. Claire Mazariegos MD Nurse Practitioner Active Start: December 03, 2024 End: December 12, 2024 Dr. Alyssia Bah MD Nurse Practitioner Active Start: December 03, 2024 End: December 12, 2024 Dr. Henry Evans MD Nurse Practitioner Active Start: December 03, 2024 End: December 12, 2024 Dr. Isauro Moran MD Nurse Practitioner Active Start: December 03, 2024 End: December 12, 2024 Dr. Elmer Orozco MD Nurse Practitioner Active S tart: December 03, 2024 End: December 12, 2024 Dr. Ted Henderson MD Nurse Practitioner Active Start: December 03, 2024 End: December 12, 2024 Dr. Adalid King MD Nurse Practitioner Active Start: December 03, 2024 End: December 12, 2024 Dr. Srinivasa Boudreaux MD Nurse Practitioner Active Start: December 03, 2024 End: December 12, 2024 Dr. Dev Dee MD Nurse Practitioner Active Star t: December 03, 2024 End: December 12, 2024 Dr. Bismark Lance MD Nurse Practitioner Active Start: December 03, 2024 End: December 12, 2024 Dr. Rocco Barcenas , Nurse Practitioner Active Start: December 03, 2024 End: December 12, 2024 Renay Stapleton PLUMBER GASFITTER, PLUMBER GASFITTER-C Nurse Practitioner Active Start: December 03, 2024 End: December 12, 2024 Dr. Suraj Paz MD Attending physician Active Start: December 03, 2024 End: December 12, 2024 Team Status: Active Member Role/Relationship Status Dates Dr. Luna Ashton DO Primary care physician Active Start: December 05, 2024 Dr. Omari Luna MD Emergency Departmen t Physician Active Start: December 05, 2024 Dr. Claire Mazariegos MD Admitting physician Active Start: December 05, 2024 Dr. Claire Mazariegos MD Nurse Practitioner Active Start: December 05, 2024 Dr. Alyssia Bah MD Nurse Practitioner Active Start: December 05, 2024 Dr. Henry Evans MD Attending physician Active Start: December 05, 2024 Dr. Henry Evans MD Nurse Practitioner Active Start: December 05, 2024 Team Status: Active Member Role/Relationship Status Dates Dr. Luna Ashton DO Primary care physician Active Start: December 06, 2024 Dr. Homer Grey MD Attending physician Active Start: December 06, 2024 Dr. Homer Grey MD Referring Provider Active S tart: December 06, 2024 Team Status: Active Member Role/Relationship Status Dates Dr. Luna Ashton DO Primary care physician Active Start: December 06, 2024 Dr. Omari Luna MD Emergency Departmen t Physician Active Start: December 06, 2024 Dr. Claire Mazariegos MD Admitting physician Active Start: December 06, 2024 Dr. Claire Mazairegos MD Nurse Practitioner Active Start: December 06, 2024 Dr. Alyssia Bah MD Nurse Practitioner Active Start: December 06, 2024 Dr. Henry Evans MD Attending physician Active Start: December 06, 2024 Dr. Henry Evans MD Nurse Practitioner Active Start: December 06, 2024 Team Status: Active Member Role/Relationship Status Dates Dr. Luna Ashton DO Primary care physician Active Start: December 06, 2024 Dr. Omari Luna MD Emergency Departmen t Physician Active Start: December 06, 2024 Dr. Claire Mazariegos MD Admitting physician Active Start: December 06, 2024 Dr. Claire Mazariegos MD Attending physician Active Start: December 06, 2024 Dr. Claire Mazariegos MD Nurse Practitioner Active Start: December 06, 2024 Dr. Alyssia Bah MD Nurse Practitioner Active Start: December 06, 2024 Dr. Henry Evans MD Nurse Practitioner Active Start: December 06, 2024 Team Status: Active Member Role/Relationship Status Dates Dr. Luna Ashton DO Primary care physician Active Start: 2024 Dr. Homer Grey MD Attending physician Active Start: 2024 Dr. Claire Mazariegos MD Referring Provider Active Start: 2024 Team Status: Active Member Role/Relationship Status Dates Dr. Luna Ashton DO Primary care physician Active Start: 2024 Dr. Omari Luna MD Emergency Departmen t Physician Active Start: 2024 Dr. Claire Mazariegos MD Admitting physician Active Start: 2024 Dr. Claire Mazariegos MD Nurse Practitioner Active Start: 2024 Dr. Alyssia Bah MD Nurse Practitioner Active Start: 2024 Dr. Henry Evans MD Nurse Practitioner Active Start: 2024 Susan LEROY PA-C Attending physician Active Start: 2024 Team Status: Active Member Role/Relationship Status Dates Dr. Luna Ashton DO Primary care physician Active Start: 2024 Dr. Omari Luna MD Emergency Departmen t Physician Active Start: 2024 Dr. Claire Mazariegos MD Admitting physician Active Start: 2024 Dr. Claire Mazariegos MD Attending physician Active Start: 2024 Dr. Claire Mazariegos MD Nurse Practitioner Active Start: 2024 Dr. Alyssia Bah MD Nurse Practitioner Active Start: 2024 Dr. Henry Evans MD Nurse Practitioner Active Start: 2024 Team Status: Active Member Role/Relationship Status Dates Dr. Luna Ashton DO Primary care physician Active Start: December 08, 2024 Dr. Vamsi Sams MD Attending physician Active Start: December 08, 2024 Dr. Claire Mazariegos MD Referring Provider Active Start: December 08, 2024 Team Status: Active Member Role/Relationship Status Dates Dr. Luna Ashton DO Primary care physician Active Start: December 08, 2024 Dr. Omari Luna MD Emergency Departmen t Physician Active Start: December 08, 2024 Dr. Claire Mazariegos MD Admitting physician Active Start: December 08, 2024 Dr. Claire Mazariegos MD Attending physician Active Start: December 08, 2024 Dr. Claire Mazariegos MD Nurse Practitioner Active Start: December 08, 2024 Dr. Alyssia Bah MD Nurse Practitioner Active Start: December 08, 2024 Dr. Henry Evans MD Nurse Practitioner Active Start: December 08, 2024 Dr. Isauro Moran MD Nurse Practitioner Active Start: December 08, 2024 Dr. Elmer Orozco MD Nurse Practitioner Active S tart: December 08, 2024 Dr. Ted Henderson MD Nurse Practitioner Active Start: December 08, 2024 Dr. Adalid King MD Nurse Practitioner Active Start: December 08, 2024 Dr. Srinivasa Boudreaux MD Nurse Practitioner Active Start: December 08, 2024 Dr. Dev Dee MD Nurse Practitioner Active Star t: December 08, 2024 Dr. Bismark Lance MD Nurse Practitioner Active Start: December 08, 2024 Dr. Rocco Barcenas DO Nurse Practitioner Active Start: December 08, 2024 Renay Stapleton PLUMBER GASFITTER, PLUMBER GASFITTER-C Nurse Practitioner Active Start: December 08, 2024 Team Status: Active Member Role/Relationship Status Dates Dr. Luna Ashton DO Primary care physician Active Start: December 09, 2024 Dr. Omari Luna MD Emergency Departmen t Physician Active Start: December 09, 2024 Dr. Claire Mazariegos MD Admitting physician Active Start: December 09, 2024 Dr. Claire Mazariegos MD Attending physician Active Start: December 09, 2024 Dr. Claire Mazariegos MD Nurse Practitioner Active Start: December 09, 2024 Dr. Alyssia Bah MD Nurse Practitioner Active Start: December 09, 2024 Dr. Henry Evans MD Nurse Practitioner Active Start: December 09, 2024 Dr. Isauro Moran MD Nurse Practitioner Active Start: December 09, 2024 Dr. Elmer Orozco MD Nurse Practitioner Active S tart: December 09, 2024 Dr. Ted Henderson MD Nurse Practitioner Active Start: December 09, 2024 Dr. Adalid King MD Nurse Practitioner Active Start: December 09, 2024 Dr. Srinivasa Boudreaux MD Nurse Practitioner Active Start: December 09, 2024 Dr. Dev Dee MD Nurse Practitioner Active Star t: December 09, 2024 Dr. Bismark Lance MD Nurse Practitioner Active Start: December 09, 2024 Dr. Rocco Barcenas DO Nurse Practitioner Active Start: December 09, 2024 Renay Stapleton PLUMBER GASFITTER, PLUMBER GASFITTER-C Nurse Practitioner Active Start: December 09, 2024 Team Status: Active Member Role/Relationship Status Dates Dr. Luna Ashton DO Primary care physician Active Start: December 09, 2024 Dr. Vamsi Sams MD Attending physician Active Start: December 09, 2024 Team Status: Active Member Role/Relationship Status Dates Dr. Luna Ashton DO Primary care physician Active Start: December 10, 2024 Dr. Omari Luna MD Emergency Departmen t Physician Active Start: December 10, 2024 Dr. Claire Mazariegos MD Admitting physician Active Start: December 10, 2024 Dr. Claire Mazariegos MD Nurse Practitioner Active Start: December 10, 2024 Dr. Alyssia Bah MD Nurse Practitioner Active Start: December 10, 2024 Dr. Henry Evans MD Nurse Practitioner Active Start: December 10, 2024 Dr. Isauro Moran MD Nurse Practitioner Active Start: December 10, 2024 Dr. Elmer Orozco MD Nurse Practitioner Active S tart: December 10, 2024 Dr. Ted Henderson MD Nurse Practitioner Active Start: December 10, 2024 Dr. Adalid King MD Nurse Practitioner Active Start: December 10, 2024 Dr. Srinivasa Boudreaux MD Nurse Practitioner Active Start: December 10, 2024 Dr. Dev Dee MD Nurse Practitioner Active Star t: December 10, 2024 Dr. Bismark Lance MD Nurse Practitioner Active Start: December 10, 2024 Dr. Rocco Barcenas DO Nurse Practitioner Active Start: December 10, 2024 Renay Stapleton PLUMBER GASFITTER, PLUMBER GASFITTER-C Nurse Practitioner Active Start: December 10, 2024 Dr. Suraj Paz MD Attending physician Active Start: December 10, 2024 Dr. Suraj Paz MD Nurse Practitioner Active Start: December 10, 2024 Team Status: Active Member Role/Relationship Status Dates Dr. Luna Ashton DO Primary care physician Active Start: December 11, 2024 Dr. Omari [facility] Active Start: December 11, 2024 Dr. Claire Mazariegos MD Admitting physician Active Start: December 11, 2024 Dr. Claire Mazariegos MD Nurse Practitioner Active Start: December 11, 2024 Dr. Alyssia Bah MD Nurse Practitioner Active Start: December 11, 2024 Dr. Henry Evans MD Nurse Practitioner Active Start: December 11, 2024 Dr. Isauro Moran MD Nurse Practitioner Active Start: December 11, 2024 Dr. Elmer Orozco MD Nurse Practitioner Active S tart: December 11, 2024 Dr. Ted Henderson MD Nurse Practitioner Active Start: December 11, 2024 Dr. Adalid King MD Nurse Practitioner Active Start: December 11, 2024 Dr. Srinivasa Boudreaux MD Nurse Practitioner Active Start: December 11, 2024 Dr. Dev Dee MD Nurse Practitioner Active Star t: December 11, 2024 Dr. Bismark Lance MD Nurse Practitioner Active Start: December 11, 2024 Dr. Rocco Barcenas , Nurse Practitioner Active Start: December 11, 2024 Renay Stapleton PLUMBER GASFITTER, PLUMBER GASFITTER-C Nurse Practitioner Active Start: December 11, 2024 Dr. Suraj Paz MD Attending physician Active Start: December 11, 2024 Dr. Suraj Paz MD Nurse Practitioner Active Start: December 11, 2024 Team Status: Active Member Role/Relationship Status Dates Dr. Luna Ashton , Primary care physician Active Start: December 12, 2024 Dr. Omari [facility] Active Start: December 12, 2024 Dr. Claire Mazariegos MD Admitting physician Active Start: December 12, 2024 Dr. Claire Mazariegos MD Nurse Practitioner Active Start: December 12, 2024 Dr. Alyssia Bah MD Nurse Practitioner Active Start: December 12, 2024 Dr. Henry Evans MD Nurse Practitioner Active Start: December 12, 2024 Dr. Isauro Moran MD Nurse Practitioner Active Start: December 12, 2024 Dr. Elmer Orozco MD Nurse Practitioner Active S tart: December 12, 2024 Dr. Ted Henderson MD Nurse Practitioner Active Start: December 12, 2024 Dr. Adalid King MD Nurse Practitioner Active Start: December 12, 2024 Dr. Srinivasa Boudreaux MD Nurse Practitioner Active Start: December 12, 2024 Dr. Dev Dee MD Nurse Practitioner Active Star t: December 12, 2024 Dr. Bismark Lance MD Nurse Practitioner Active Start: December 12, 2024 Dr. Rocco Barcenas DO Nurse Practitioner Active Start: December 12, 2024 Renay Stapleton PLUMBER GASFITTER, PLUMBER GASFITTER-C Nurse Practitioner Active Start: December 12, 2024 Dr. Suraj Paz MD Attending physician Active Start: December 12, 2024 Dr. Suraj Paz MD Nurse Practitioner Active Start: December 12, 2024 Team Status: Inactive Member Role/Relationship Status Dates Dr. Luna Ashton DO Primary care physician Active Start: December 14, 2024 End: December 14, 2024 Dr. Adalid King MD Attending physician Active Start: December 14, 2024 End: December 14, 2024 Dr. Claire Mazariegos MD Referring Provider Active Start: December 14, 2024 End: December 14, 2024 Team Status: Inactive Member Role/Relationship Status Dates Dr. Luna Ashton DO Primary care physician Active Start: December 19, 2024 End: December 19, 2024 Dr. Adalid King MD Attending physician Active Start: December 19, 2024 End: December 19, 2024 Team Status: Inactive Member Role/Relationship Status Dates Dr. Luna Ashton DO Primary care physician Active Start: December 26, 2024 End: December 26, 2024 Dr. Luna Ashton DO Referring Provider Active Start: December 26, 2024 End: December 26, 2024 Dr. Adalid King MD Attending physician Active Start: December 26, 2024 End: December 26, 2024 Team Status: Active Member Role/Relationship Status Dates Dr. Luna Ashton DO Primary care physician Active Start: December 26, 2024 Dr. Adalid King MD Attending physician Active Start: December 26, 2024 Dr. Adalid King MD Referring Provider Active Start: December 26, 2024 Team Status: Active Member Role/Relationship Status Dates Dr. Luna Ashton DO Primary care physician Active Start: December 05, 2024 Dr. Omari Luna MD Emergency Departmen t Physician Active Start: December 05, 2024 Dr. Claire Mazariegos MD Admitting physician Active Start: December 05, 2024 Dr. Claire Mazariegos MD Nurse Practitioner Active Start: December 05, 2024 Dr. Alyssia Bah MD Nurse Practitioner Active Start: December 05, 2024 Dr. Henry Evans MD Attending physician Active Start: December 05, 2024 Dr. Henry Evans MD Nurse Practitioner Active Start: December 05, 2024 Dr. Suraj Paz MD Referring Provider Active Start: December 05, 2024 Team Status: Active Member Role/Relationship Status Dates Dr. Luna Ashton DO Primary care physician Active Start: December 06, 2024 Dr. Omari Luna [facility] Active Start: December 06, 2024 Dr. Claire Mazariegos MD Admitting physician Active Start: December 06, 2024 Dr. Claire Mazariegos MD Nurse Practitioner Active Start: December 06, 2024 Dr. Alyssia Bah MD Nurse Practitioner Active Start: December 06, 2024 Dr. Henry Evans MD Attending physician Active Start: December 06, 2024 Dr. Henry Evans MD Referring Provider Active Start: December 06, 2024 Dr. Henry Evans MD Nurse Practitioner Active Start: December 06, 2024 Team Status: Inactive Member Role/Relationship Status Dates Dr. Luna Ashton DO Primary care physician Active Start: December 29, 2024 End: December 29, 2024 Dr. Luna Ashton DO Attending physician Active Start: December 29, 2024 End: December 29, 2024 Dr. Luna Ashton DO Referring Provider Active Start: December 29, 2024 End: December 29, 2024 Team Status: Inactive Member Role/Relationship Status Dates Dr. Luna Ashton DO Primary care physician Active Start: January 02, 2025 End: January 02, 2025 Dr. Luna Ashton DO Referring Provider Active Start: January 02, 2025 End: January 02, 2025 Dr. Adalid King MD Attending physician Active Start: January 02, 2025 End: January 02, 2025 Team Status: Active Member Role/Relationship Status Dates Dr. Luna Ashton DO Primary care physician Active Start: January 02, 2025 Dr. Adalid King MD Attending physician Active Start: January 02, 2025 Dr. Adalid King MD Referring Provider Active Start: January 02, 2025 FOR RECORDS PERTAINING TO PATIENTS WHO ARE [...] BE BASED ON THE PRIMARY CLINICAL RECORDS. [facility] [employer] [facility]. provides no warranty or guarantee of the accuracy or completeness of information in this document.
--- NOTE | 2025-02-15 06:45 | RAD_ITS ---
PROCEDURE: CHEST PA AND LATERAL 02/15/2025 REASON FOR EXAM: CHEST PAIN TECHNIQUE: Procedure Code: RADCXR Modality: DX Procedure: CHEST PA AND LATERAL COMPARISON: December 08, 2024 FINDINGS: There is a central access port on the right with its tip centrally located. Heart size is within normal limits. Central vascularity appears mildly prominent. There is blunting of the costophrenic angle on the left consistent with a trace effusion. There is no pneumothorax. There is no acute bony abnormality. Aortic calcifications are noted. RAD/Chest PA and Lateral IMPRESSION: There is mild central vascular congestion. There is a trace left pleural effusion. Reading Location: [facility]
[2025-02-15 06:46] LABS: AST(SGOT) 21 U/L (<=37); Alanine Aminotransfer ALT/SGPT 31 U/L (<=46); Albumin, Serum 4.2 g/dL (3.4-4.8); Alkaline Phosphatase 96 U/L (40-129); Anion Gap 13 (5-15); BUN 25 mg/dL (4-19); BUN/Creat Ratio 12.2 RATIO (10-20); Bilirubin, Direct 0.20 mg/dL (0.00-0.30); Calcium,Total 8.1 mg/dL (7.6-11.0); Carbon Dioxide 27.6 mmol/L (21.0-32.0); Chloride 93 mmol/L (98-108); Estimated Creatinine Clearance 29.84 ml/min (50-250); Globulin 3.0 g/dL (2.2-4.2); Glucose 320 mg/dL (70-99); Lipase 87 U/L (13-75); Magnesium 1.7 mg/dL (1.5-2.2); Potassium 3.4 mmol/L (3.3-5.1)
--- NOTE | 2025-02-15 07:01 | EDS_ITS ---
HPI History of Present Illness Chief Complaint: Chest Pain Informant: patient and spouse/S.O. Narrative Narrative: Patient is an 84-year-old male with past medical history of acute renal failure currently on dialysis Thursday and Thursday. He also has a history of hypertension and insulin-dependent diabetes as well as multiple myeloma. He states that he went to bed feeling normal and then awoke around 4 in the morning with pain in the upper mid abdomen/lower chest. He states has been no recent trauma or excessive activity. He states the pain feels more a pressure or squeeze sensation. He denies any nausea vomiting diaphoresis or shortness of b reath with the pain. He states there is no radiation. He reports he waited a few hours and symptoms did not resolve and with this he presents for evaluation. [facility] Medical History Chronic renal failure (CRF), stage 5 Type II diabetes mellitus Anemia Multiple myeloma CKD (chronic kidney disease) stage 1, GFR 90 ml/min or greater Trigger finger of right hand Apical variant hypertrophic cardiomyopathy HLD (hyperlipidemia) Shingles (herpes zoster) polyneuropathy Acute urticaria GERD (gastroesophageal reflux disease) Hypothyroidism Home Medications ?Medication ?Instructions ?Recorded ?Last Taken ?Type blood sugar diagnostic (True #100 ea 02/11/23 Unknown Rx Metrix Glucose Test Strip) blood-glucose meter #1 ea 02/11/23 Unknown Rx atorvastatin 20 mg tablet 20 mg PO QDAY #90 tabs 09/2912/02/24 Rx lancets 30 gauge (Unilet Lancets) #100 ea 09/29/24 Unk nown Rx levothyroxine 100 mcg tablet 100 mcg PO DAILY #100 tab s 09/29/24 12/03/24 Rx pen needle, diabetic 29 gauge x #100 ea 09/29/24 Unkno wn Rx 1/2 (CareFine Pen Needle) ondansetron 4 mg disintegrating 4 mg PO Q8H PRN nausea and 11/29/24 12/02/24 Rx tablet vomiting #14 tabs insulin glargine 100 unit/mL (3 21 unit subcut QHS 06/2412/02/24 History mL) subcutaneous pen (Lantus Solostar U-100 Insulin) magnesium 250 mg tablet 250 mg PO QHS 12/03/2412/02 History acyclovir 200 mg capsule 200 mg PO BID #60 caps 12/14 Unknown Rx insulin lispro 100 unit/mL 1 sliding scale dose subcut QACHS 12/15/24 Unknown Rx subcutaneous pen (Humalog KwikPen #15 mL (U-100) Insulin) aspirin 81 mg tablet 81 mg PO QDAY 12/19/24 Unkno wn History dexamethasone 4 mg tablet 40 mg PO .WEEKLY 12/29/24 Un known History mirtazapine 7.5 mg tablet 7.5 mg PO QHS 90 days #90 ta bs 12/29/24 Unknown Rx omeprazole 20 mg capsule,delayed 20 mg PO QHS 12/29/24 Unknown History release amlodipine 5 mg tablet 5 mg PO DAILY 30 days #90 ta bs 01/02/25 Unknown Rx metoprolol tartrate 25 mg tablet 25 mg PO BID 30 days #180 tabs 01/02/25 Unknown Rx pramoxine 1 % topical foam 1 applic HI BID #15 grams 1 04/11/24 Unknown Rx (Proctofoam) Allergy/AdvReac Type Severity Reaction Status Date / Time meloxicam (From Mobic) Allergy Severe unknown Verified 02/15/25 05:52 pentazocine (From Talwin) Allergy Severe unknown Verified 02/15/25 05:52 metaxalone AdvReac Intermediate Nausea Verified 02/15/25 05:52 Family History Father Heart disease Mother CVA (cerebral vascular accident) Hypertension Breast cancer Surgical History History of back surgery History of left knee surgery History of appendectomy History of cardiac cath Social History Smoking Status: Former smoker Tobacco: How many years used: 2 how long ago did patient quit smokin alcohol intake: never substance use type: does not use ROS ROS ED Constitutional Constitutional ED: Denies chills or fever(s) Eyes Eyes: Denies blurry vision or change in vision ENT ENT ED: Denies sore throat Cardiovascular Cardiovascular: Reports chest pain; Denies palpitations or racing heartbeat Respiratory/Chest Respiratory/Chest: Denies cough or dyspnea Gastrointestinal Gastrointestinal: Reports abdominal pain; Denies diarrhea, nausea or vomiting Genitourinary Genitourinary ED: Denies dysuria Musculoskeletal Musculoskeletal: Denies back pain Integumentary Denies rash Neurologic Neurologic: Denies headache(s) Hematologic/Lymphatic Hematologic/Lymphatic: Denies easy bleeding or easy bruising EXAM Physical Exam Const Vital Signs: 02/15/25 05:50 02/15/25 05:52 02/15/25 05:53 Temperature 97.7 F L 97.7 F L Temperature Source Oral Oral Pulse Rate 80 78 Respiratory Rate 18 18 Respiratory Effort Normal Non-Labored Respiratory Pattern Normal Blood Pressure 163/84 H 163/84 H Blood Pressure Mean 110 110 Pulse Ox 100 100 Oxygen Delivery Method Room Air Room Air 02/15/25 06:49 02/15/25 07:00 Temperature Temperature Source Pulse Rate 74 69 Respiratory Rate 19 H 18 Respiratory Effort Respiratory Pattern Blood Pressure 152/79 H 162/83 H Blood Pressure Mean 103 109 Pulse Ox 93 95 Oxygen Delivery Method Room Air Room Air Positive well nourished and well developed General Appearance ED: well developed; Negative for pallor HEENT HEENT Narrative: Normocephalic atraumatic Eyes PERRL and EOMs intact bilaterally General Eye ED: Negative for scleral icterus Neck supple and no JVD Chest Wall Chest Narrative: There is reproducible pain with palpation over top the xiphoid process No obvious bony deformity or subcutaneous emphysema noted No overlying soft tissue changes suggest trauma or infection. Resp normal respiratory effort Resp Narrative: Breath sounds are diminished throughout with faint crackles noted in the bilateral bases but no signs of respiratory distress Cardio regular rate and regular rhythm Rate: other Other Details: Heart is regular rate and rhythm Radial and carotid pulses are equal and symmetric No carotid bruit noted GI GI Narrative: Abdomen is soft but there is slight distention in the upper abdominal region. The patient has pain with palpation in the midepigastric region; However no voluntary guarding or rigidity No pulsatile mass No fluid wave No peritoneal signs Bowel sounds are hypoactive Auscultation: hypoactive bowel sounds Palpation: soft Extremity Extremity Narrative: Negative Homans' sign bilaterally There is trace to +1 pitting edema to the bilateral lower extremities that is equal and symmetric Neuro oriented x3, CN's II-XII intact bilaterally and no sensory deficits noted Sensorium / Orientation: alert Motor Exam: strength 5/5 throughout Psych mental status grossly normal Skin no rashes or lesions noted and no wounds General Skin Exam: Negative for jaundice or pallor MDM MDM MDM Narrative Medical decision making narrative: Patient arrived to the ER hypertensive but has a past medical history of this. He reported chest pain but on exam the pain is over top the xiphoid process and in the upper mid abdomen in the mid epigastric. Moreover he has distention at this site and remote history of appendectomy raising concern that his pain is from potentially gastritis versus ileus versus pancreatitis or small bowel obstruction. He does have risk factors for cardiovascular disease however when he was admitted in November for his acute kidney injury he underwent a stress test and echo at that time which revealed right ventricular systolic pressure of 39 and mild systolic dysfunction with preserved ejection fraction. His EKG today was compared to one from November at his last admission and it is similar nature with nonspecific ST segment depression without ischemic or STEMI changes. On top of this he does not have nausea vomiting diaphoresis or shortness of breath which would correlate as acute coronary syndrome. With his known history of renal failure he would have a falsely elevated troponin and I do not have old values to compare to therefore I do not feel 1 needs to be obtained at this time as his EKG is similar to November and he is already had a stress test and echocardiogram just 2 months ago. In order to assess for pancreatitis or biliary colic or potentially ileus or obstruction I did feel the need to perform basic laboratory studies along with a CT scan of the abdomen pelvis with oral contrast. I have low concern for pulmonary embolus as the patient does not have pleuritic chest pain he is not tachycardic or hypoxic. I have low concern for dissection as his pain does not radiate it is described as a squeezing set of a sharp sensation and his radial and carotid pulses are equal and symmetric. Moreover his chest x-ray does not reveal widened mediastinum. Concern for infectious process or sepsis is low as well as white count is normal he does not have a left shift and his neutrophil count is normal as well. Patient was given a GI cocktail to help resolve symptoms as he does have a remote history of gastritis. He states the medication helped some but he still has discomfort. We discussed giving something stronger such as IV morphine but the patient states that it is bearable at this time and he does not want medication. The patient is hemodynamically stable his lab work reveals that his kidney disease is slowly improving as his creatinine is now trending down towards normal at a value of 2.02. We are awaiting the CT scan with oral contrast to ensure there is no sign of intestinal infection or pancreatitis or acute cholecystitis or bowel obstruction. I do feel that if the CT scan does not reveal any signs of obstruction or perforation that with his vitals being stable and laboratory studies overall within normal range he should be safe for discharge with outpatient follow up. As results are still pending he will be signed out to the day physician Dr. Moon History & Record Review Discussion w/independent historian: Patient and Significant other Lab Data Attestation: I reviewed the patient's lab results. Labs: Laboratory Results - last 24 hr 02/15/25 05:50 WBC 9.5 RBC 2.54 L Hgb 8.5 L Hct 25.1 L MCV 98.8 H MCH 33.5 H MCHC 33.9 RDW Std Deviation 49.7 H RDW Coeff of Scotty 13.8 Plt Count 147 L MPV 10.6 Immature Gran % (Auto) 1.300 H Neut % (Auto) 68.2 Lymph % (Auto) 18.9 L [place] % (Auto) 10.8 H Eos % (Auto) 0.7 Baso % (Auto) 0.1 Absolute Neuts (auto) 6.5 Absolute Lymphs (auto) 1.80 Nucleated RBC % 0 Sodium 134 Potassium 3.4 Chloride 93 L Carbon Dioxide 27.6 Anion Gap 13 BUN 25 H Creatinine 2.02 H Estim Creat Clear Calc 29.84 L Est GFR (MDRD) Non-Af 32 L BUN/Creatinine Ratio 12.2 Glucose 320 H Calcium 8.1 Phosphorus 3.5 Magnesium 1.7 Total Bilirubin 0.31 Direct Bilirubin 0.20 AST 21 ALT 31 Alkaline Phosphatase 96 Total Protein 7.2 Albumin 4.2 Globulin 3.0 Lipase 87 H Radiography Diagnostic Testing: Clinical Impression(s) from Imaging Studies Chest X-Ray 02/15/25 06:45 IMPRESSION: There is mild central vascular congestion. There is a trace left pleural effusion. Reading Location: [facility] 2 view chest x-ray as interpreted by the emergency medicine physician reveals mild vascular congestion without infiltrate or pneumothorax or widening of the mediastinum Discharge Plan Triage Chief Complaint: Chest Pain ED Provider: Santi Cisneros Dx/Rx/DC Orders Clinical Impression: HTN (hypertension), Chronic kidney disease, Insulin dependent type 2 diabetes mellitus, Multiple myeloma, Epigastric pain, Anemia of chronic disease Prescriptions: No Action (DME) True Metrix Glucose Test Strip Strip See Dose Instructions .ROUTE .MEDSUPPLY Qty: 100 1RF Rx Instructions: As directed (DME) blood-glucose meter Kit See Rx Instructions .ROUTE .MEDSUPPLY Qty: 1 0RF Rx Instructions: As directed atorvastatin 20 mg tablet 20 mg PO QDAY Qty: 90 2RF levothyroxine 100 mcg tablet 100 mcg PO DAILY Qty: 100 3RF (DME) lancets [Unilet Lancets] 30 gauge misc See Dose Instructions .ROUTE .MEDSUPPLY Qty: 100 1RF Rx Instructions: As directed (DME) pen needle, diabetic [CareFine Pen Needle] 29 gauge x 1/2 needle See Rx Instructions .Route Qty: 100 3RF Rx Instructions: As directed dexamethasone 4 mg tablet 40 mg PO .WEEKLY Rx Instructions: Take 40 mg daily for 4 days starting December 15, 2024 then once weekly on days of chemotherapy omeprazole 20 mg capsule,delayed release(DR/EC) 20 mg PO QHS mirtazapine 7.5 mg tablet 7.5 mg PO QHS 90 Days Qty: 90 3RF aspirin 81 mg tablet 81 mg PO QDAY pramoxine [Proctofoam] 1 % foam 1 applic HI BID Qty: 15 2RF magnesium 250 mg tablet 250 mg PO QHS insulin glargine [Lantus Solostar U-100 Insulin] 100 unit/mL (3 mL) insulin pen 21 unit subcut QHS ondansetron 4 mg tablet,disintegrating 4 mg PO Q8H PRN (Reason: nausea and vomiting) Qty: 14 0RF acyclovir 200 mg capsule 200 mg PO BID Qty: 60 2RF insulin lispro [Humalog KwikPen Insulin] 100 unit/mL insulin pen 1 sliding scale dose subcut QACHS Qty: 15 0RF Rx Instructions: Blood Sugar 61-150 five 0 units Blood sugar 151-200 give 2 units Blood sugar 201-250 give 4 units Blood sugar 251-300 give 6 units Blood sugar 301-350 give 8 units Blood sugar 351-400 give 10 units Blood sugar over 400 call physician amlodipine 5 mg tablet 5 mg PO DAILY 30 Days Qty: 90 2RF metoprolol tartrate 25 mg tablet 25 mg PO BID 30 Days Qty: 180 2RF Primary Care Provider: Kevin Flaherty Referrals: Kevin Flaherty, [Primary Care Provider, Internal Medicine] Print Language: Macedonian
[2025-02-15 09:40] LABS: Mucous, Urine 0 SEEN /hpf (<or=2+); Red Blood Cells-Urine 0 SEEN /hpf (0-5)
[2025-02-15 09:43] LABS: Color, Urine Yellow (Yellow); Glucose, Dipstick 250 mg/dl (Normal); Ketone-Dipstick Negative (Negative); Leukocyte Esterase-Dipstick Negative /ul (Negative); Nitrite-Dipstick Negative (Negative); Occult Blood-Urine Negative /ul (Negative); Protein-Dipstick 100 mg/dl (Negative); Specific Gravity, Urine 1.010 (1.002-1.030); Urine Bilirubin Dipstick Negative (Negative)
[2025-02-15 09:55] LABS: Squamous Epithelial Cells - UA 0-5 SEEN /hpf (0-5)
--- NOTE | 2025-02-15 10:59 | ED.RN ---
rn into d/c pt. is very upset. with how . treated them and their concerns. they do not understand why pt. is being discharged when he is still having increased pain. pt state that er dr was dismissive of their concerns and unproffessional. dr. chavez asked to go back into the room
--- NOTE | 2025-02-15 11:24 | CM.ED ---
Social Work SW was notified by RN that patient and patients were unhappy with care received in ER and concerned about being discharged. SW entered room, introduced self and role with [facility]. Patient and accepting of visit. states she was concerned regarding patient being discharged as they do not know the root case for his pain. explained that patient has been through cancer treatments and dialysis and never complained of pain in the past and has not taken pain medications. Patients states if he is now complaining of pain, she is concerned there is something wrong. SW explored with patient any additional services that may be appropriate. Patient states he has received services in the past and he found them helpful at the time but states he is not in need of that kind of assistance at this time. SW also discussed Palliative Care with both patient and , states they had already met with a Palliative Care nurse and have decided they were not interested in services at this time. Patient and thanked SW for visit, but stated they did not feel there was anything additional they needed at this time related to services. Laxmi Jeong, CUTTER OUT, FIELD PIPELINES SUPERVISOR
[2025-02-15] MEDS: Famotidine 200 MG/20 ML MDV 20 MG in 0.9% Normal Saline (Pres. free 8 ML 300 MG IV (11:40)
--- NOTE | 2025-02-15 13:02 | PCM.HP.STD ---
HPI - General General Date of Admission: 02/15/25 Date of Service: 02/15/25 Chief Complaint: Epigastric pain HPI Narrative LINA ORTA, is a 84-year-old male history of renal failure on dialysis, multiple myeloma, diabetes, hypothyroidism, GERD who presented [facility] ED 02/15/2025 with upper mid abdominal/lower chest pain that woke him at 4 AM. He went to bed feeling normal but came to the ED due to the pain that he noted was a pressure squeezing-like sensation. There is no associated nausea, vomiting, shortness of breath or radiation. In the ED temp is 97.7, heart rate of 80, respiratory rate 18, blood pressure 163/84, pulse ox 100% on room air. White count 9.5, hemoglobin 8.5 and platelet count 147. Sodium 134, potassium 3.4 with a bicarb of 27.6 and gap of 13, BUN of 25 and creatinine 2.02. Glucose 320, liver panel fairly unremarkable. Lipase only 87. Chest x-ray with mild central vascular congestion and trace left pleural effusion. Patient had CT of the abdomen and pelvis which showed left kidney cyst, queried perinephric fat stranding, distended bladder and enlarged prostate. UA not suggestive of acute infection. Initial plan was for discharge home given lack of exam findings and patient's improvement in pain, though was still present. After discharge however patient and his had concerns about the continued pain. He received a GI cocktail and subsequently was given morphine, Bentyl, and Pepcid. He had mild tenderness in the epigastrium on exam without rebound or rigidity. It was not felt to be cardiac in nature given the tenderness on palpation and family did not want to pursue cardiac workup and also did not think it was cardiac in nature. On reevaluation patient was still complaining of pain so hospitalist contacted for admission for intractable abdominal pain. Evaluated patient and at bedside, he reports that the pain was at 4 AM after he had been laying down overnight and is in his upper abdomen/epigastric in nature and is somewhat sharp. He reports having regular bowel movements though been somewhat soft and that he has been urinating well. She denies any nausea. Does take aspirin now for DVT prophylaxis, took dexamethasone on the 15 for his chemo which he has been tolerating well other than getting a rash twice on the right side of his abdomen that is mild. He also is only taking omeprazole once daily, previously was taking many jiwq-dzi-medgeht medicines for his reflux symptoms that were stopped as they were calcium containing and he came in with hypercalcemia previously. Family reports he is eating and drinking well [facility] Medical History Chronic renal failure (CRF), stage 5 Type II diabetes mellitus Anemia Multiple myeloma CKD (chronic kidney disease) stage 1, GFR 90 ml/min or greater Trigger finger of right hand Apical variant hypertrophic cardiomyopathy HLD (hyperlipidemia) Shingles (herpes zoster) polyneuropathy Acute urticaria GERD (gastroesophageal reflux disease) Hypothyroidism Home Medications ?Medication ?Instructions ?Recorded ?Last Taken ?Type blood sugar diagnostic (True #100 ea 02/11/23 Unknown Rx Metrix Glucose Test Strip) blood-glucose meter #1 ea 02/11/23 Unknown Rx atorvastatin 20 mg tablet 20 mg PO QDAY #90 tabs 09/29/24 02/14/25 Rx lancets 30 gauge (Unilet Lancets) #100 ea 09/29/24 Unknown Rx levothyroxine 100 mcg tablet 100 mcg PO DAILY #100 tabs 09/29/24 02/14/25 Rx pen needle, diabetic 29 gauge x #100 ea 09/29/24 Unknown Rx 1/2 (CareFine Pen Needle) ondansetron 4 mg disintegrating 4 mg PO Q8H PRN nausea and 11/29/24 12/02/24 Rx tablet vomiting #14 tabs insulin glargine 100 unit/mL (3 21 unit subcut QHS 12/03/24 02/14/25 History mL) subcutaneous pen (Lantus Solostar U-100 Insulin) magnesium 250 mg tablet 250 mg PO QHS 12/03/24 02/14/25 History acyclovir 200 mg capsule 200 mg PO BID #60 caps 12/14/24 02/14/25 Rx insulin lispro 100 unit/mL 1 sliding scale dose subcut QACHS 12/15/24 02/14/25 Rx subcutaneous pen (Humalog KwikPen #15 mL (U-100) Insulin) aspirin 81 mg tablet 81 mg PO QDAY 12/19/24 02/14/25 History dexamethasone 4 mg tablet 40 mg PO QWEEK 12/29/24 02/13/25 History mirtazapine 7.5 mg tablet 7.5 mg PO QHS 90 days #90 tabs 12/29/24 02/14/25 Rx omeprazole 20 mg capsule,delayed 20 mg PO QHS 12/29/24 02/14/25 History release amlodipine 5 mg tablet 5 mg PO DAILY 30 days #90 tabs 01/02/25 02/14/25 Rx metoprolol tartrate 25 mg tablet 25 mg PO BID 30 days #180 tabs 01/02/25 02/14/25 Rx pramoxine 1 % topical foam 1 applic [place] BID #15 grams 02/08/25 02/14/25 Rx (Proctofoam) Allergy/AdvReac Type Severity Reaction Status Date / Time meloxicam (From Mobic) Allergy Severe unknown Verified 02/15/25 05:52 pentazocine (From Talwin) Allergy Severe unknown Verified 02/15/25 05:52 metaxalone AdvReac Intermediate Nausea Verified 02/15/25 05:52 Family History Father Heart disease Mother CVA (cerebral vascular accident) Hypertension Breast cancer Surgical History History of back surgery History of left knee surgery History of appendectomy History of cardiac cath Social History Smoking Status: Former smoker Tobacco: How many years used: 2 how long ago did patient quit smokin alcohol intake: never substance use type: does not use ROS ROS Narrative General: Denies fever/chills HENT: Denies headache, denies stuffy nose, denies sore throat EYES: Denies changes in vision Resp: Denies cough, denies shortness of breath Cardiac: Denies chest pain GI: Upper abdominal pain that is sharp, not radiating, some soft stool with a lot of gas, denies nausea/vomiting : Denies changes in urination Extremity: Denies swelling MSK: Denies focal weakness Neuro: Denies any numbness/tingling Heme: Denies any bleeding or bruising Skin: Has a little bit of a circular rash on right anterior abdomen that is mild Psychiatric: No complaints voiced Patient's Goals Of Care . What matters most to you about your health?: abdominal pain What would you like to achieve or improve as a result of your hospital stay?: pain free abdomen Vital Signs Vital Signs Vital Signs: 02/15/25 05:50 02/15/25 05:52 02/15/25 05:53 Temperature 97.7 F L 97.7 F L Temperature Source Oral Oral Pulse Rate 80 78 Respiratory Rate 18 18 Respiratory Effort Normal Non-Labored Respiratory Pattern Normal Blood Pressure 163/84 H 163/84 H Blood Pressure Mean 110 110 Pulse Ox 100 100 Oxygen Delivery Method Room Air Room Air 02/15/25 06:49 02/15/25 07:00 02/15/25 08:05 Temperature Temperature Source Pulse Rate 74 69 72 Respiratory Rate 19 H 18 14 Respiratory Effort Respiratory Pattern Blood Pressure 152/79 H 162/83 H 151/78 H Blood Pressure Mean 103 109 102 Pulse Ox 93 95 100 Oxygen Delivery Method Room Air Room Air 02/15/25 09:24 02/15/25 10:00 02/15/25 10:51 Temperature 98.4 F Temperature Source Pulse Rate 72 72 76 Respiratory Rate 13 18 14 Respiratory Effort Respiratory Pattern Blood Pressure 148/77 H 149/78 H 152/80 H Blood Pressure Mean 100 101 104 Pulse Ox 100 98 98 Oxygen Delivery Method Room Air Room Air 02/15/25 11:35 02/15/25 12:11 02/15/25 13:01 Temperature Temperature Source Pulse Rate 77 74 73 Respiratory Rate 18 10 L 12 Respiratory Effort Respiratory Pattern Blood Pressure 154/81 H 159/74 H 165/81 H Blood Pressure Mean 105 102 109 Pulse Ox 99 97 98 Oxygen Delivery Method Room Air Room Air Room Air Weight Weight: 77.5 kg Body Mass Index (BMI) 23.1 Physical Exam Narrative General: Alert, oriented HEENT: Atraumatic, normocephalic Eyes: Anicteric, normal conjunctiva, extraocular movements grossly intact Neck: Supple Respiratory: Clear to auscultation bilaterally, normal respiratory effort Cardiovascular: Regular rate and rhythm GI: Soft, some mild tenderness to palpation epigastric region, abdomen slightly protuberant Extremities: No edema Musculoskeletal: Moving all extremities Neuro: No overt focal neurological deficits Skin: Mild global scaly patch on right anterior abdomen Psych: Cooperative Results Lab / Micro Data 02/15/25 05:50 02/15/25 05:50 Labs: Laboratory Results - last 24 hr 02/15/25 05:50: WBC 9.5, RBC 2.54 L, Hgb 8.5 L, Hct 25.1 L, MCV 98.8 H, MCH 33.5 H, MCHC 33.9, RDW Std Deviation 49.7 H, RDW Coeff of Scotty 13.8, Plt Count 147 L, MPV 10.6, Immature Gran % (Auto) 1.300 H, Neut % (Auto) 68.2, Lymph % (Auto) 18.9 L, [place] % (Auto) 10.8 H, Eos % (Auto) 0.7, Baso % (Auto) 0.1, Absolute Neuts (auto) 6.5, Absolute Lymphs (auto) 1.80, Nucleated RBC % 0, Sodium 134, Potassium 3.4, Chloride 93 L, Carbon Dioxide 27.6, Anion Gap 13, BUN 25 H, Creatinine 2.02 H, Estim Creat Clear Calc 29.84 L, Est GFR (MDRD) Non-Af 32 L, BUN/Creatinine Ratio 12.2, Glucose 320 H, Calcium 8.1, Phosphorus 3.5, Magnesium 1.7, Total Bilirubin 0.31, Direct Bilirubin 0.20, AST 21, ALT 31, Alkaline Phosphatase 96, Total Protein 7.2, Albumin 4.2, Globulin 3.0, Lipase 87 H 02/15/25 09:05: Urine Color Yellow, Urine Clarity Clear, Urine pH 8.0, Ur Specific [place] 1.010, Urine Protein 100 H, Urine Glucose (UA) 250 H, Urine Ketones Negative, Urine Occult Blood Negative, Urine Nitrite Negative, Urine Bilirubin Negative, Urine Urobilinogen Normal, Ur Leukocyte Esterase Negative, Urine RBC 0 SEEN, Urine WBC 0 SEEN, Ur Squamous Epith Cells 0-5 SEEN, Urine Bacteria 0 SEEN, Urine Mucus 0 SEEN 02/15/25 10:34: POC Glucose 165 H Imaging Radiology Impression Abdomen CT 02/15/25 06:13 IMPRESSION: A hyperdense proteinaceous cyst at the midpole of the left kidney measures 1.2 cm. Perinephric fat stranding. No hydronephrosis. No nephrolithiasis. Correlation with urinalysis is recommended. Distended bladder with enlarged prostate. Reading Location: [facility] Chest X-Ray 02/15/25 06:45 IMPRESSION: There is mild central vascular congestion. There is a trace left pleural effusion. Reading Location: [facility] Assessment & Plan Assessment/Plan (1) Epigastric pain: PLAN: Plan #Epigastric pain - Patient has some tenderness in his epigastrium, is somewhat sharp with no radiation that started when he was laying down for sleep - Does not seem to be cardiac in nature - CT abdomen pelvis with cyst on left kidney and queried perinephric fat stranding as well as distended bladder with enlarged prostate - Lipase only slightly elevated and does not meet criteria for pancreatitis - Patient has a history of reflux/GERD and when he was hospitalized previously and I saw him he had some pretty significant pain in epigastric region that responded to IV PPI twice daily - He also notably was taking many [id number]-eizakxs supplements for reflux at the time which is why it was initially thought he was hypercalcemic though went on to find he had multiple myeloma - Currently taking omeprazole nightly with no daytime dose or [id number] as needed medication and is receiving aspirin for DVT prophylaxis and did get dexamethasone as well about a day and a half ago - Given history and HPI suspect patient may have gastritis or that pain is GI in nature - Will try IV PPI twice daily - Transitional diet - Supportive care - If symptoms improve may be able to follow-up with GI on discharge for an outpatient endoscopy, last one was 3 to 4 years ago and only noted possible small hiatal hernia (he and do not remember why he had it), if symptoms do not improve may need inpatient GI consult for possible further inpatient workup - Additionally will have postvoid obtained given distended bladder on CT though does not have suprapubic tenderness does seem somewhat bloated - Notes he has bowel movements usually once a day and they are somewhat soft and seem to be present since he has been started on medicine/chemo - It is certainly possible one of his chemo medications could be causing abdominal pain but again as above think that this is more likely gastric in nature #ESRD on HD -Only on dialysis 2 days a week now per patient and his , reportedly is doing well and may eventually be able to stop dialysis but is still presently getting it -Consult nephrology -Daily weights, I's and O's #Multiple myeloma - Diagnosed a couple of months ago during his hospitalization - Following with Dr. King and currently undergoing chemo - Reviewed oncology office note, currently in partial remission and continuing therapy - Continue outpatient follow-up #Type 2 diabetes mellitus -Glucose checks and sliding scale insulin - Continue long-acting insulin #Hypertension - Continue home medications #Hypothyroidism -Continue Synthroid #DVT ppx: SCDs Claire Mazariegos MD Charges/Coding Visit Charges Inpatient E&M: 60951 Init Hosp L2
[2025-02-15] MEDS: Mag /Aluminum/Simeth WCH UDC 30 ML ORAL.SUSP PO (14:41)
[2025-02-15] MEDS: Pantoprazole Sodium 40 MG in 0.9% Normal Saline (100mL MB+) 100 ML 330 MG IV ×2 (14:47→21:08)
--- OUTSIDE RECORDS SUMMARY | 2025-02-15 20:19 | XMS RPT_ITS | CCD ---
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 Luna Ashton DO Primary Care Provider [phone] Reynold ERICKSON, Dr. Luna Judge Attending Provider [phone] Reynold ERICKSON, Dr. Luna Judge Referring Provider [phone] Reynold ERICKSON, Dr. Luna Judge Primary Care Provider Reynold ERICKSON, Dr. Luna Judge Attending Provider [phone] ) Renyold ERICKSON, Dr. Luna Judge Referring Provider [phone] [...] Renay Nurse Practitioner Brandi SHIELDS, Dr. Suraj Georegs Attending Physician Yair SHIELDS, Dr. Rangel Attending [...] Christine SHIELDS, Dr. Cordoba Referring Provider Daya MAGAZINE SUPERVISOR, Renay Attending Unavailable Brown, Luna R Primary [...] Attending Unavailable Alyssia Bah Consulting Unavailable Brown, Ulna R Primary Care Unavailable Claire Mazariegos Attending [...] Referring Unavailable Henry Evans Referring Unavailable Daya MAGAZINE SUPERVISOR, Renay Attending Unavailable Brown, Luna R Primary [...] Consulting Unavailable Rocco Barcenas Consulting Unavailable Daya MAGAZINE SUPERVISOR, Renay Consulting Unavailable Claire Mazariegos Consulting Unavailable [...] (17 sources) meloxicam Drug Allergy 05-10-2021 unknown [facility] (17 sources) Pentazocine Drug Allergy 05-10-2021 unknown [facility] (7 sources) metaxalone Drug Allergy 11-23-2024 Nausea [facility] Comment on above: and dry mouth (1 source) meloxicam Drug Allergy 01-09-2025 [facility] Repository (1 source) metaxalone Drug Allergy 01-09-2025 [facility] (1 source) Pentazocine Drug Allergy 01-09-2025 [facility] Medications Current Medications Medication [...] 01-17-2022 handicap placard Discontinue d 0 .Route .[facility] January 17, 2022 1:00am January 17, 2022 12:56pm 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 Start: 01-17-2022 End: 01-17-2022 handicap placard Discontinue d 0 .Route .[facility] January 17, 2022 1:00am January 17, 2022 12:56pm atypical variant hypertrophic cardiomyopathy Start: 01-17-2022 End: 01-17-2022 handicap placard Discontinue d 0 .Route .[facility] January 17, 2022 12:00am January 17, 2022 [...] Coronary atherosclerosis; 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, [address] Absolute Neut 0.8 X10 3/uL Low 2.0-7.7 [facility] Comment on above: Performed By: #### L 100.0100 ####[facility] [address] [place], [address] Basophils/100 WBC (Bld) 0.5 % Normal 0-1 [facility] Comment on above: Performed By: #### L 100.0100 ####[facility] [address] [place], [address] Eosinophils/100 WBC (Bld) 2.4 % Normal 0-5 [facility] Comment on above: Performed By: #### L 100.0100 ####[facility] [address] [place], [address] Erythrocyte distribution width (RBC) [Ratio] 13.9 % Normal 11.6-14.6 [facility] Comment on above: Performed By: #### L 100.0100 ####[facility] [address] [place], [address] Hematocrit (Bld) [Volume fraction] 25.4 % Low 40-54 [facility] Comment on above: Performed By: #### L 100.0100 ####[facility] [address] [place], [address] Hemoglobin (Bld) [Mass/Vol] 8.7 g/dL Low 13.0-16.5 [facility] Comment on above: Performed By: #### L 100.0100 ####[facility] [address] [place], [address] IG% 0.900 Normal 0.0-0.9 [facility] Comment on above: Result Comment: IG% - Immature Granulocytes (promyelocytes, myelocytes andmetamyelocytes) > 1% indicates that a LEFT SHIFT is Present. Performed By: #### L 100.0100 ####[facility] [address] [place], [address] Lymphocytes/100 WBC (Bld) 39.6 % Normal 19-41 [facility] Comment on above: Performed By: #### L 100.0100 ####[facility] [address] [place], [address] MCH (RBC) [Entitic mass] 33.6 pg High 27.0-32.0 [facility] Comment on above: Performed By: #### L 100.0100 ####[facility] [address] [place], [address] MCHC (RBC) [Mass/Vol] 34.3 g/dL Normal 32-36 [facility] Comment on above: Performed By: #### L 100.0100 ####[facility] [address] [place], [address] MCV (RBC) [Entitic vol] 98.1 fL High 80-94 [facility] Comment on above: Performed By: #### L 100.0100 ####[facility] [address] [place], [address] Monocytes/100 WBC (Bld) 17.9 % High 0-10 [facility] Comment on above: Performed By: #### L 100.0100 ####[facility] [address] [place], [address] Neutrophils/100 WBC (Bld) 38.7 % Low 47-70 [facility] Comment on above: Performed By: #### L 100.0100 ####[facility] [address] [place], [address] Nucleated RBC (Bld) [#/Vol] 0 10*3/uL Normal 0-5 [facility] Comment on above: Performed By: #### L 100.0100 ####[facility] [address] [place], [address] Platelet mean volume (Bld) [Entitic vol] 10.2 fL Normal 6.2-12.0 [facility] Comment on above: Performed By: #### L 100.0100 ####[facility] [address] [place], [address] Platelets (Bld) [#/Vol] 144 10*3/uL Low 150-450 [facility] Comment on above: Performed By: #### L 100.0100 ####[facility] [address] [place], [address] RBC (Bld) [#/Vol] 2.59 10*6/uL Low 4.6-6.2 [facility] Comment on above: Performed By: #### L 100.0100 ####[facility] [address] [place], [address] RDW SD 49.7 fl High 35.1-43.9 [facility] Comment on above: Performed By: #### L 100.0100 ####[facility] [address] [place], [address] WBC (Bld) [#/Vol] 2.1 10*3/uL Low 4.4-11.[address] [facility] Comment on above: Performed By: #### L 100.0100 ####[facility] [address] [place], [address] Oncology Visit Reporton 11-1 Oncology Visit Report Normal [facility] Absolute lymphocyte countOrd ered By: Adalid King on 01-02-2025 Lymphocytes Auto (Unsp spec) [#/Vol] 0.64 10*3/uL Low 0.83-4.51 [facility] Automated lymphocyte count a s percentage of total leukocytesOrdered By: Adalid King on 01-02-2025 Lymphocytes/100 WBC Auto (Unsp spec) 31.7 % 19-41 [facility] Basophil percentageOrdered B y: Adalid King on 01-02-2025 Basophils/100 WBC (Bld) 0.5 % 0-1 [facility] CBC W/Diff, Automatedon PLT EST SLT DEC Normal ADEQ [facility] Comment on above: Performed By: #### L 100.0100 ####[facility] [address], [address] Eosinophil percentageOrdered By: Adalid King on 01-02-2025 Eosinophils/100 WBC (Bld) 1.5 % 0-5 [facility] Erythrocyte distribution wid th ratioOrdered By: [facility] Christine on 01-02-2025 Erythrocyte distribution width (RBC) [Ratio] 13.8 % 11.6-14.6 [facility] Erythrocyte distribution wid th standard deviationOrdered By: [facility] Christine on 01-02-2025 Erythrocyte distribution width (RBC) [Ratio] 48.7 fl High 35.1-43.9 [facility] Hematocrit Auto (Bld) [Volum e fraction]Ordered By: Adalid King on 01-02-2025 Hematocrit (Bld) [Volume fraction] 23.5 % Low 40-54 [facility] Hemoglobin measurementOrdere d By: [facility] on 01-02-2025 Hemoglobin (Bld) [Mass/Vol] 8.1 g/dL Low 13.0-16.5 [facility] Immature granulocytes/100 WB C Auto (Bld)Ordered By: Adalid King on 01-02-2025 Immature granulocytes/100 WBC (Bld) 0.500 % 0.0-0.9 [facility] MCV (mean corpuscular volume ) determinationOrdered By: Adalid King on 01-02-2025 MCV (RBC) [Entitic vol] 99.2 fL High 80-94 [facility] Mean corpuscular hemoglobin (MCH) determinationOrdered By: Adalid King on 01-02-2025 MCH (RBC) [Entitic mass] 34.2 pg High 27.0-32.0 [facility] Monocyte percentageOrdered B y: Adalid King on 01-02-2025 Monocytes/100 WBC (Bld) 11.9 % High 0-10 [facility] Neutrophil percentageOrdered By: Adalid King on 01-02-2025 Neutrophils/100 WBC (Bld) 53.9 % 47-70 [facility] Oncology Visit Reporton Oncology Visit Report Normal [facility] Platelet countOrdered By: Marcos King on 01-02-2025 Platelets (Bld) [#/Vol] 94 10*3/uL Low 150-450 [facility] Platelet estimateOrdered By: Adalid King on 01-02-2025 Platelets LM Ql (Bld) SLT DEC ADEQ [facility] RBC Auto (Bld) [#/Vol]Ordere d By: Adalid King on 01-02-2025 RBC (Bld) [#/Vol] 2.37 10*6/uL Low 4.6-6.2 [facility] White blood cell (WBC) count Ordered By: Adalid King on 01-02-2025 WBC (Bld) [#/Vol] 2.0 10*3/uL Low 4.4-11.[address] [facility] Internal Medicine Office Vis iton 12-29-2024 Internal Medicine Office Visit Normal [facility] No Panel InformationOrdered By: Luna Ashton on 12-29-2024 7.0 % High 4.2-6.3 [facility] Absolute lymphocyte countOrd ered By: Adalid King on 12-26-2024 Lymphocytes Auto (Unsp spec) [#/Vol] 0.43 10*3/uL Low 0.83-4.51 [facility] Automated lymphocyte count a s percentage of total leukocytesOrdered By: Adalid King on 12-26-2024 Lymphocytes/100 WBC Auto (Unsp spec) 28.1 % 19-41 [facility] Basophil percentageOrdered B y: Adalid King on 12-26-2024 Basophils/100 WBC (Bld) 0.0 % 0-1 [facility] CBC W/Diff, Automatedon 12-01 PATH REV Reviewed Normal [facility] Comment on above: Result Comment: PANC YTOPENIA INCLUDING ABSOLUTE LYMPHOPENIA AND MILDLYLEFT-SHIFTED NEUTROPENIA.MACROCYTIC NORMOCHROMIC ANEMIA WITH RED CELL ROULEAUX.THROMBOCYTOPENIA, ADEQUATE FOR HEMOSTASIS.Sandra Forbes MD 12/26/2024 AMENDED REPORT 12/26/24 1629 PATH REV previously reported as: June grace Performed By: #### L 100.0100 ####[facility] [address] [place], [address] Eosinophil percentageOrdered By: Adalid King on 12-26-2024 Eosinophils/100 WBC (Bld) 2.0 % 0-5 [facility] Erythrocyte distribution wid th ratioOrdered By: [facility] on 12-26-2024 Erythrocyte distribution width (RBC) [Ratio] 13.3 % 11.6-14.6 [facility] Erythrocyte distribution wid th standard deviationOrdered By: Adalid King on 12-26-2024 Erythrocyte distribution width (RBC) [Ratio] 49.9 fl High 35.1-43.9 [facility] Hematocrit Auto (Bld) [Volum e fraction]Ordered By: Adalid King on 12-26-2024 Hematocrit (Bld) [Volume fraction] 24.6 % Low 40-54 [facility] Hemoglobin measurementOrdere d By: Adalid King on 12-26-2024 Hemoglobin (Bld) [Mass/Vol] 8.5 g/dL Low 13.0-16.5 [facility] Immature granulocytes/100 WB C Auto (Bld)Ordered By: Adalid King on 12-26-2024 Immature granulocytes/100 WBC (Bld) 0.700 % 0.0-0.9 [facility] MCV (mean corpuscular volume ) determinationOrdered By: Adalid Millsus on 12-26-2024 MCV (RBC) [Entitic vol] 102.1 fL High 80-94 [facility] Mean corpuscular hemoglobin (MCH) determinationOrdered By: Adalid Christine on 12-26-2024 MCH (RBC) [Entitic mass] 35.3 pg High 27.0-32.0 [facility] Monocyte percentageOrdered B y: Adalid Christine on 12-26-2024 Monocytes/100 WBC (Bld) 28.1 % High 0-10 [facility] Neutrophil percentageOrdered By: [facility] on 12-26-2024 Neutrophils/100 WBC (Bld) 41.1 % Low 47-70 [facility] Oncology Visit Reporton 12-01 Oncology Visit Report Normal [facility] Platelet countOrdered By: Marcos meenakshi Christine on 12-26-2024 Platelets (Bld) [#/Vol] 117 10*3/uL Low 150-450 [facility] RBC Auto (Bld) [#/Vol]Ordere d By: Adalid Christine on 12-26-2024 RBC (Bld) [#/Vol] 2.41 10*6/uL Low 4.6-6.2 [facility] Review by pathologistOrdered By: Adalid Christine on 12-26-2024 Pathologist review Don (Unsp spec) [Interp] Reviewed [facility] White blood cell (WBC) count Ordered By: Adalid Christine on 12-26-2024 WBC (Bld) [#/Vol] 1.5 10*3/uL Critically low 4.4-11.0 [facility] Cvst-5-Xxvpfhpfklgla, Son B-2 MICROGLOBUL 10.1 mg/L High 0.6-2.4 [facility] Comment on above: Result Comment: [employer]ine Immulite 2000 Immunochemiluminometric assay (ICMA)Values obtained with different assay methods or kits cannotbe used interchangeably. Results cannot be interpreted asabsolute evidence of the presence or absence of malignantdisease.Performed at: [address] [id number] Director: Colt Rich MD, Phone: [phone] Performed By: #### L 504.2610, L3100.3425, L500.4050, L3130.0010, L3000.0800, L100.0100, L3890.5000, [id number] ####[facility] [address] [place], [place], [phone] Hepatitis B/C Profile VIIIon 12-21-2024 COMMENT Comment Normal . [facility] Comment on above: Result Comment: Not infected with HCV unless early or acute infection issuspected (which may be delayed in an immunocompromisedindividual), or other evidence exists to indicate HCVinfection. Performed By: #### L 504.2610, L3100.3425, L500.4050, L3130.0010, L3000.0800, L100.0100, L3890.5000, [id number] ####[facility] [address] [place], [place], [phone] HEP B CORE,TOT Negative Normal Negative [facility] Comment on above: Performed By: #### L 504.2610, L3100.3425, L500.4050, L3130.0010, L3000.0800, L100.0100, L3890.5000, [id number] ####[facility] [address] [place], [place], [id number] Hep B Susan AB Non-Reactive Normal . [facility] Comment on above: Result Comment: Non Reactive: Not immune to HBV infection. Anti-HBs undetectable or less than 10 mIU/mL. Reactive: Evidence of HBV immunity. Anti-HBs levels greater than 10 mIU/mL. Performed By: #### L 504.2610, L3100.3425, L500.4050, L3130.0010, L3000.0800, L100.0100, L3890.5000, [id number] ####[facility] [address] [place], [place], [phone] HEP B SURF AG Negative Normal Negative [facility] Comment on above: Performed By: #### L 504.2610, L3100.3425, L500.4050, L3130.0010, L3000.0800, L100.0100, L3890.5000, [id number] ####[facility] [address] [place], [place], [phone] HEP C Antibody Non-Reactive Normal Non Reactive [facility] Comment on above: Performed By: #### L 504.2610, L3100.3425, L500.4050, L3130.0010, L3000.0800, L100.0100, L3890.5000, [id number] ####[facility] [address] [place], [address] HEPATITIS INTER Comment Normal . [facility] Comment on above: Result Comment: HBV Serology [...] 504.2610, L3100.3425, L500.4050, L3130.0010, L3000.0800, L100.0100, L3890.5000, [id number] ####[facility] [address] [place], [address] OMERO + Protein Elect, Serumon 12-21-2024 Albumin [Mass/Vol] 3.1 g/dL Normal 2.9-4.[address] [facility] Comment on above: Order Comment: N Performed By: #### L 504.2610, L3100.3425, L500.4050, L3130.0010, L3000.0800, L100.0100, L3890.5000, [id number] ####[facility] [address] [place], [address] Albumin/Globulin [Mass ratio] 0.7 {ratio} Normal 0.7-1.7 [facility] Comment on above: Order Comment: N Performed By: #### L 504.2610, L3100.3425, L500.4050, L3130.0010, L3000.0800, L100.0100, L3890.5000, [id number] ####[facility] [address] [place], [address] QVBUK-0-MCHU 0.3 g/dL Normal 0.0-0.4 [facility] Comment on above: Order Comment: N Performed By: #### L 504.2610, L3100.3425, L500.4050, L3130.0010, L3000.0800, L100.0100, L3890.5000, [id number] ####[facility] [address] [place], [address] UJSMF-1-AOOZ 1.0 g/dL Normal 0.4-1.0 [facility] Comment on above: Order Comment: N Performed By: #### L 504.2610, L3100.3425, L500.4050, L3130.0010, L3000.0800, L100.0100, L3890.5000, [id number] ####[facility] [address] [place], [address] BETA GLOBULIN 3.4 g/dL High 0.7-1.3 [facility] Comment on above: Order Comment: N Performed By: #### L 504.2610, L3100.3425, L500.4050, L3130.0010, L3000.0800, L100.0100, L3890.5000, [id number] ####[facility] [address] [place], [place], [phone] GAMMA GLOBULIN 0.2 g/dL Low 0.4-1.8 [facility] Comment on above: Order Comment: N Performed By: #### L 504.2610, L3100.3425, L500.4050, L3130.0010, L3000.0800, L100.0100, L3890.5000, Y63767-4 ####[facility] [address] [place], [place], [phone]) Globulin (S) [Mass/Vol] 4.9 g/dL Abnormal 2.2-3.9 [facility] Comment on above: Order Comment: N Performed By: #### L 504.2610, L3100.3425, L500.4050, L3130.0010, L3000.0800, L100.0100, L3890.5000, U93478-4 ####[facility] [address] [place], [place], [phone] OMERO RESULT,S Comment Abnormal . [facility] Comment on above: Order Comment: N Result Comment: Immu nofixation shows IgA monoclonal protein with lambdalight chain specificity and monoclonal free lambda lightchains. Performed By: #### L 504.2610, L3100.3425, L500.4050, L3130.0010, L3000.0800, L100.0100, L3890.5000, [id number] ####[facility] [address] [place], [place], [phone]) IMMUNOGLOB A QN 2947 mg/dL High 61-437 [facility] Comment on above: Order Comment: N Result Comment: Resu lts confirmed ondilution. Performed By: #### L 504.2610, L3100.3425, L500.4050, L3130.0010, L3000.0800, L100.0100, L3890.5000, U79875-1 ####[facility] [address] [place], [address] IMMUNOGLOB G QN 377 mg/dL Low 603-1613 [facility] Comment on above: Order Comment: N Performed By: #### L 504.2610, L3100.3425, L500.4050, L3130.0010, L3000.0800, L100.0100, L3890.5000, [id number] ####[facility] [address] [place], [place], [phone] IMMUNOGLOB M QN 12 mg/dL Low 15-143 [facility] Comment on above: Order Comment: N Result Comment: Resu lt confirmed on concentration. Performed By: #### L 504.2610, L3100.3425, L500.4050, L3130.0010, L3000.0800, L100.0100, L3890.5000, [id number] ####[facility] [address] [place], [address] M-David Comment: Normal Not Observed [facility] Comment on above: Order Comment: N Result Comment: [place] clonal IgA lambda = 2.4 g/dlMonoclonal free lambda light chains = 0.1 g/dl Performed By: #### L 504.2610, L3100.3425, L500.4050, L3130.0010, L3000.0800, L100.0100, L3890.5000, [id number] ####[facility] [address] [place], [address] NOTE: Comment Normal . [facility] Comment on above: Order Comment: N Result Comment: Prot ein electrophoresis scan will follow via computer,mail, or improvement engineer delivery. Performed By: #### L 504.2610, L3100.3425, L500.4050, L3130.0010, L3000.0800, L100.0100, L3890.5000, [id number] ####[facility] [address] [place], [place], [phone] Protein [Mass/Vol] 8.0 g/dL Normal 6.0-8.[address] [facility] Comment on above: Order Comment: N Performed By: #### L 504.2610, L3100.3425, L500.4050, L3130.0010, L3000.0800, L100.0100, L3890.5000, [id number] ####[facility] [address] [place], [place], [phone] [place] Lambda Light Chainson 12-21-2024 FR KAPPA LT CHN 11.9 mg/L Normal 3.3-19.4 [facility] Comment on above: Performed By: #### L 504.2610, L3100.3425, L500.4050, L3130.0010, L3000.0800, L100.0100, L3890.5000, [id number] ####[facility] [address] [place], [place], [phone] FR LAMBDA LT CH 807.3 mg/L Abnormal 5.7-26.3 [facility] Comment on above: Performed By: #### L 504.2610, L3100.3425, L500.4050, L3130.0010, L3000.0800, L100.0100, L3890.5000, [id number] ####[facility] [address] [place], [address] KAPPA/LAMBDA % 0.01 Abnormal 0.26-1.65 [facility] Comment on above: Result Comment: Perf ormed at: - [facility] [address] [id number] Director: Fernandez Ceballos PhD, Phone: [phone] Performed By: #### L 504.2610, L3100.3425, L500.4050, L3130.0010, L3000.0800, L100.0100, L3890.5000, [id number] ####[facility] [address] [place], [place], [address] Albumin Elph [Mass/Vol]Order ed By: Adalid King on 12-19-2024 Albumin [Mass/Vol] 3.1 g/dL 2.9-4.[address] [facility] Anion gap in Serum or Plasma Ordered By: Adalid King on 12-19-2024 Anion gap [Moles/Vol] 20 mmol/L High 5-15 [facility] [id number] 12-19-2024 DIRECT ANNALISA NEG w/POLYSPECIFIC Normal NEGATIVE [facility] Comment on above: Performed By: #### L 504.2610, L3100.3425, L500.4050, L3130.0010, L3000.0800, L100.0100, L3890.5000, [id number] ####[facility] [address] [place], [place], [address] BRCon 12-19-2024 RC Normal [facility] Comment on above: Result Comment: [id number] ON RC TRANSFUSED 12/19/24 1416 Performed By: #### B , BTS ####[facility] [address] [place], [place], [address] BUN/creatinine ratioOrdered By: Adalid King on 12-19-2024 Urea nitrogen/Creatinine [Mass ratio] 16.1 mg/mg 12-19 [facility] Bilirubin, totalOrdered By: Adalid King on 12-19-2024 Bilirubin [Mass/Vol] 0.47 mg/dL 0.00-1.30 [facility] CBC W/Diff, Automatedon 12-01 Absolute Lymph 0.46 X10 3/uL Low 0.83-4.51 [facility] Comment on above: Performed By: #### L 504.2610, L3100.3425, L500.4050, L3130.0010, L3000.0800, L100.0100, L3890.5000, [id number] ####[facility] [address] [place], [address] Absolute Neut 4.9 X10 3/uL Normal 2.0-7.7 [facility] Comment on above: Performed By: #### L 504.2610, L3100.3425, L500.4050, L3130.0010, L3000.0800, L100.0100, L3890.5000, [id number] ####[facility] [address] [place], [address] Basophils/100 WBC (Bld) 0.0 % Normal 0-1 [facility] Comment on above: Performed By: #### L 504.2610, L3100.3425, L500.4050, L3130.0010, L3000.0800, L100.0100, L3890.5000, [id number] ####[facility] [address] [place], [address] Eosinophils/100 WBC (Bld) 0.0 % Normal 0-5 [facility] Comment on above: Performed By: #### L 504.2610, L3100.3425, L500.4050, L3130.0010, L3000.0800, L100.0100, L3890.5000, [id number] ####[facility] [address] [place], [address] Erythrocyte distribution width (RBC) [Ratio] 13.4 % Normal 11.6-14.6 [facility] Comment on above: Performed By: #### L 504.2610, L3100.3425, L500.4050, L3130.0010, L3000.0800, L100.0100, L3890.5000, [id number] ####[facility] [address] [place], [address] Hematocrit (Bld) [Volume fraction] 20.7 % Low 40-54 [facility] Comment on above: Performed By: #### L 504.2610, L3100.3425, L500.4050, L3130.0010, L3000.0800, L100.0100, L3890.5000, [id number] ####[facility] [address] [place], [address] Hemoglobin (Bld) [Mass/Vol] 7.1 g/dL Low 13.0-16.5 [facility] Comment on above: Performed By: #### L 504.2610, L3100.3425, L500.4050, L3130.0010, L3000.0800, L100.0100, L3890.5000, [id number] ####[facility] [address] [place], [address] IG% 0.500 Normal 0.0-0.9 [facility] Comment on above: Result Comment: IG% - Immature Granulocytes (promyelocytes, myelocytes andmetamyelocytes) > 1% indicates that a LEFT SHIFT is Present. Performed By: #### L 504.2610, L3100.3425, L500.4050, L3130.0010, L3000.0800, L100.0100, L3890.5000, [id number] ####[facility] [address] [place], [address] Lymphocytes/100 WBC (Bld) 7.3 % Low 19-41 [facility] Comment on above: Performed By: #### L 504.2610, L3100.3425, L500.4050, L3130.0010, L3000.0800, L100.0100, L3890.5000, [id number] ####[facility] [address] [place], [address] MCH (RBC) [Entitic mass] 35.1 pg High 27.0-32.0 [facility] Comment on above: Performed By: #### L 504.2610, L3100.3425, L500.4050, L3130.0010, L3000.0800, L100.0100, L3890.5000, [id number] ####[facility] [address] [place], [address] MCHC (RBC) [Mass/Vol] 34.3 g/dL Normal 32-36 [facility] Comment on above: Performed By: #### L 504.2610, L3100.3425, L500.4050, L3130.0010, L3000.0800, L100.0100, L3890.5000, [id number] ####[facility] [address] [place], [address] MCV (RBC) [Entitic vol] 102.5 fL High 80-94 [facility] Comment on above: Performed By: #### L 504.2610, L3100.3425, L500.4050, L3130.0010, L3000.0800, L100.0100, L3890.5000, [id number] ####[facility] [address] [place], [address] Monocytes/100 WBC (Bld) 14.1 % High 0-10 [facility] Comment on above: Performed By: #### L 504.2610, L3100.3425, L500.4050, L3130.0010, L3000.0800, L100.0100, L3890.5000, [id number] ####[facility] [address] [place], [address] Neutrophils/100 WBC (Bld) 78.1 % High 47-70 [facility] Comment on above: Performed By: #### L 504.2610, L3100.3425, L500.4050, L3130.0010, L3000.0800, L100.0100, L3890.5000, C52811-5 ####[facility] [address] [place], [address] Nucleated RBC (Bld) [#/Vol] 0 10*3/uL Normal 0-5 [facility] Comment on above: Performed By: #### L 504.2610, L3100.3425, L500.4050, L3130.0010, L3000.0800, L100.0100, L3890.5000, [id number] ####[facility] [address] [place], [address] Platelet mean volume (Bld) [Entitic vol] 9.6 fL Normal 6.2-12.0 [facility] Comment on above: Performed By: #### L 504.2610, L3100.3425, L500.4050, L3130.0010, L3000.0800, L100.0100, L3890.5000, [id number] ####[facility] [address] [place], [address] Platelets (Bld) [#/Vol] 194 10*3/uL Normal 150-450 [facility] Comment on above: Performed By: #### L 504.2610, L3100.3425, L500.4050, L3130.0010, L3000.0800, L100.0100, L3890.5000, [id number] ####[facility] [address] [place], [address] RBC (Bld) [#/Vol] 2.02 10*6/uL Low 4.6-6.2 [facility] Comment on above: Performed By: #### L 504.2610, L3100.3425, L500.4050, L3130.0010, L3000.0800, L100.0100, L3890.5000, [id number] ####[facility] [address] [place], [address] RDW SD 50.0 fl High 35.1-43.9 [facility] Comment on above: Performed By: #### L 504.2610, L3100.3425, L500.4050, L3130.0010, L3000.0800, L100.0100, L3890.5000, Q42159-8 ####[facility] [address] [place], [address] WBC (Bld) [#/Vol] 6.3 10*3/uL Normal 4.4-11.[address] [facility] Comment on above: Performed By: #### L 504.2610, L3100.3425, L500.4050, L3130.0010, L3000.0800, L100.0100, L3890.5000, [id number] ####[facility] [address] [place], [address] Absolute Neut Normal 2.0-7.7 [facility] Comment on above: Result Comment: NO S PECIMEN COLLECTED Performed By: #### L 100.0100, L500.4050 ####[facility] [address] [place], [address] HCT Normal 40-54 [facility] Comment on above: Result Comment: NO S PECIMEN COLLECTED Performed By: #### L 100.0100, L500.4050 ####[facility] [address] [place], [address] HGB Normal 13.0-16.5 [facility] Comment on above: Result Comment: NO S PECIMEN COLLECTED Performed By: #### L 100.0100, L500.4050 ####[facility] [address] [place], [address] MCH Normal 27.0-32.0 [facility] Comment on above: Result Comment: NO S PECIMEN COLLECTED Performed By: #### L 100.0100, L500.4050 ####[facility] [address] [place], [address] MCHC Normal 32-36 [facility] Comment on above: Result Comment: NO S PECIMEN COLLECTED Performed By: #### L 100.0100, L500.4050 ####[facility] [address] [place], [address] MCV Normal 80-94 [facility] Comment on above: Result Comment: NO S PECIMEN COLLECTED Performed By: #### L 100.0100, L500.4050 ####[facility] [address] [place], [address] NEUT% Normal 47-70 [facility] Comment on above: Result Comment: NO S PECIMEN COLLECTED Performed By: #### L 100.0100, L500.4050 ####[facility] [address] [place], [address] PLT Normal 150-450 [facility] Comment on above: Result Comment: NO S PECIMEN COLLECTED Performed By: #### L 100.0100, L500.4050 ####[facility] [address] [place], [address] RBC Normal 4.6-6.2 [facility] Comment on above: Result Comment: NO S PECIMEN COLLECTED Performed By: #### L 100.0100, L500.4050 ####[facility] [address] [place], [address] RDW CV Normal 11.6-14.6 [facility] Comment on above: Result Comment: NO S PECIMEN COLLECTED Performed By: #### L 100.0100, L500.4050 ####[facility] [address] [place], [address] RDW SD Normal 35.1-43.9 [facility] Comment on above: Result Comment: NO S PECIMEN COLLECTED Performed By: #### L 100.0100, L500.4050 ####[facility] [address] [place], [address] WBC Normal 4.4-11.0 [facility] Comment on above: Result Comment: NO S PECIMEN COLLECTED Performed By: #### L 100.0100, L500.4050 ####[facility] [address] [place], [address] Carbon dioxide, total [Moles /volume] in Central venous bloodOrdered By: Adalid King on 12-19-2024 CO2 [Moles/Vol] 22.5 mmol/L 21.0-32.0 [facility] Chloride assayOrdered By: Marcos King on 12-19-2024 Chloride [Moles/Vol] 85 mmol/L Low 98-108 [facility] Comprehensive Metabolic Prof ilon 12-19-2024 Albumin [Mass/Vol] 3.5 g/dL Normal 3.4-4.[address] [facility] Comment on above: Performed By: #### L 504.2610, L3100.3425, L500.4050, L3130.0010, L3000.0800, L100.0100, L3890.5000, [id number] ####[facility] [address] [place], [address] Albumin/Globulin [Mass ratio] 0.8 {ratio} Low 0.9-2.4 [facility] Comment on above: Performed By: #### L 504.2610, L3100.3425, L500.4050, L3130.0010, L3000.0800, L100.0100, L3890.5000, [id number] ####[facility] [address] [place], [address] ALK PHOS 84 U/L Normal 40-129 [facility] Comment on above: Performed By: #### L 504.2610, L3100.3425, L500.4050, L3130.0010, L3000.0800, L100.0100, L3890.5000, [id number] ####[facility] [address] [place], [address] ALT [Catalytic activity/Vol] 51 U/L High <=46 [facility] Comment on above: Performed By: #### L 504.2610, L3100.3425, L500.4050, L3130.0010, L3000.0800, L100.0100, L3890.5000, M64635-7 ####[facility] [address] [place], [address] AST [Catalytic activity/Vol] 24 U/L Normal <=37 [facility] Comment on above: Performed By: #### L 504.2610, L3100.3425, L500.4050, L3130.0010, L3000.0800, L100.0100, L3890.5000, H25569-1 ####[facility] [address] [place], [address] Bilirubin [Mass/Vol] 0.47 mg/dL Normal 0.00-1.30 [facility] Comment on above: Performed By: #### L 504.2610, L3100.3425, L500.4050, L3130.0010, L3000.0800, L100.0100, L3890.5000, [id number] ####[facility] [address] [place], [address] BUN/CRE 16.1 RATIO Normal 10-20 [facility] Comment on above: Performed By: #### L 504.2610, L3100.3425, L500.4050, L3130.0010, L3000.0800, L100.0100, L3890.5000, V04564-6 ####[facility] [address] [place], [address] Calcium [Mass/Vol] 8.4 mg/dL Normal 7.6-11.[address] [facility] Comment on above: Performed By: #### L 504.2610, L3100.3425, L500.4050, L3130.0010, L3000.0800, L100.0100, L3890.5000, [id number] ####[facility] [address] [place], [address] Chloride [Moles/Vol] 85 mmol/L Low 98-108 [facility] Comment on above: Performed By: #### L 504.2610, L3100.3425, L500.4050, L3130.0010, L3000.0800, L100.0100, L3890.5000, O51500-4 ####[facility] [address] [place], [address] CO2 [Moles/Vol] 22.5 mmol/L Normal 21.0-32.0 [facility] Comment on above: Performed By: #### L 504.2610, L3100.3425, L500.4050, L3130.0010, L3000.0800, L100.0100, L3890.5000, [id number] ####[facility] [address] [place], [address] Creatinine [Mass/Vol] 4.53 mg/dL High 0.70-1.20 [facility] Comment on above: Performed By: #### L 504.2610, L3100.3425, L500.4050, L3130.0010, L3000.0800, L100.0100, L3890.5000, U70844-6 ####[facility] [address] [place], [address] GAP 20 High 5-15 [facility] Comment on above: Performed By: #### L 504.2610, L3100.3425, L500.4050, L3130.0010, L3000.0800, L100.0100, L3890.5000, [id number] ####[facility] [address] [place], [address] GFR/1.73 sq M.predicted among non-blacks MDRD (S/P/Bld) [Vol rate/Area] 12 mL/min/{1.73_m2} Low >60 [facility] Comment on above: Result Comment: mL/m in/1.73m2 CKD-EPI Creatinine Equation (2020) Performed By: #### L 504.2610, L3100.3425, L500.4050, L3130.0010, L3000.0800, L100.0100, L3890.5000, [id number] ####[facility] [address] [place], [address] Globulin (S) [Mass/Vol] 4.7 g/dL High 2.2-4.2 [facility] Comment on above: Performed By: #### L 504.2610, L3100.3425, L500.4050, L3130.0010, L3000.0800, L100.0100, L3890.5000, [id number] ####[facility] [address] [place], [address] Glucose [Mass/Vol] 339 mg/dL High 70-[address] [facility] Comment on above: Performed By: #### L 504.2610, L3100.3425, L500.4050, L3130.0010, L3000.0800, L100.0100, L3890.5000, [id number] ####[facility] [address] [place], [address] Potassium [Moles/Vol] 3.5 mmol/L Normal 3.3-5.1 [facility] Comment on above: Performed By: #### L 504.2610, L3100.3425, L500.4050, L3130.0010, L3000.0800, L100.0100, L3890.5000, R41634-8 ####[facility] [address] [place], [address] Sodium [Moles/Vol] 127 mmol/L Low 133-[address] [facility] Comment on above: Performed By: #### L 504.2610, L3100.3425, L500.4050, L3130.0010, L3000.0800, L100.0100, L3890.5000, [id number] ####[facility] [address] [place], [address] T PROT 8.2 g/dL Normal 5.9-8.4 [facility] Comment on above: Performed By: #### L 504.2610, L3100.3425, L500.4050, L3130.0010, L3000.0800, L100.0100, L3890.5000, [id number] ####[facility] [address] [place], [address] Urea nitrogen [Mass/Vol] 73 mg/dL High 4-19 [facility] Comment on above: Performed By: #### L 504.2610, L3100.3425, L500.4050, L3130.0010, L3000.0800, L100.0100, L3890.5000, [id number] ####[facility] [address] [place], [address] ALB Normal 3.4-4.8 [facility] Comment on above: Result Comment: NO S PECIMEN COLLECTED Performed By: #### L 100.0100, L500.4050 ####[facility] [address] [place], [address] ALK PHOS Normal 40-129 [facility] Comment on above: Result Comment: NO S PECIMEN COLLECTED Performed By: #### L 100.0100, L500.4050 ####[facility] [address] [place], [address] ALT Normal <=46 [facility] Comment on above: Result Comment: NO S PECIMEN COLLECTED Performed By: #### L 100.0100, L500.4050 ####[facility] [address] [place], [address] AST Normal <=37 [facility] Comment on above: Result Comment: NO S PECIMEN COLLECTED Performed By: #### L 100.0100, L500.4050 ####[facility] [address] [place], [address] BUN Normal 4-19 [facility] Comment on above: Result Comment: NO S PECIMEN COLLECTED Performed By: #### L 100.0100, L500.4050 ####[facility] [address] [place], [address] BUN/CRE Normal 10-20 [facility] Comment on above: Result Comment: NO S PECIMEN COLLECTED Performed By: #### L 100.0100, L500.4050 ####[facility] [address] [place], [address] Calcium Normal 7.6-11.0 [facility] Comment on above: Result Comment: NO S PECIMEN COLLECTED Performed By: #### L 100.0100, L500.4050 ####[facility] [address] [place], [address] CL Normal 98-108 [facility] Comment on above: Result Comment: NO S PECIMEN COLLECTED Performed By: #### L 100.0100, L500.4050 ####[facility] [address] [place], [address] CO2 Normal 21.0-32.0 [facility] Comment on above: Result Comment: NO S PECIMEN COLLECTED Performed By: #### L 100.0100, L500.4050 ####[facility] [address] [place], [address] CREAT,SERUM Normal 0.70-1.20 [facility] Comment on above: Result Comment: NO S PECIMEN COLLECTED Performed By: #### L 100.0100, L500.4050 ####[facility] [address] [place], [address] eGFR Normal >60 [facility] Comment on above: Result Comment: NO S PECIMEN COLLECTED Performed By: #### L 100.0100, L500.4050 ####[facility] [address] [place], [address] GAP Normal 5-15 [facility] Comment on above: Result Comment: NO S PECIMEN COLLECTED Performed By: #### L 100.0100, L500.4050 ####[facility] [address] [place], [address] GLU Normal 70-99 [facility] Comment on above: Result Comment: NO S PECIMEN COLLECTED Performed By: #### L 100.0100, L500.4050 ####[facility] [address] [place], [address] Potassium Normal 3.3-5.1 [facility] Comment on above: Result Comment: NO S PECIMEN COLLECTED Performed By: #### L 100.0100, L500.4050 ####[facility] [address] [place], [address] T BILI Normal 0.00-1.30 [facility] Comment on above: Result Comment: NO S PECIMEN COLLECTED Performed By: #### L 100.0100, L500.4050 ####[facility] [address] [place], [address] T PROT Normal 5.9-8.4 [facility] Comment on above: Result Comment: NO S PECIMEN COLLECTED Performed By: #### L 100.0100, L500.4050 ####[facility] [address] [place], [place], [address] Comprehensive Metabolic Profil Normal 133-145 [facility] Comment on above: Result Comment: NO S PECIMEN COLLECTED Performed By: #### L 100.0100, L500.4050 ####[facility] [address] [place], [address] Glomerular filtration rate ( GFR) estimation/1.73 sq m using serum, plasma, or whole bOrdered By: Adalid King on 12-19-2024 GFR/1.73 sq M.predicted among non-blacks MDRD (S/P/Bld) [Vol rate/Area] 12 mL/min/{1.73_m2} Low >60 [facility] Interpretation of serum or p lasma protein pattern by immunofixation (narrative resultOrdered By: Adalid King on 12-19-2024 Protein Fractions Immunofixation Don [Interp] Comment: g/dL Not Observed [facility] LDHon 12-19-2024 LDH 170 U/L Normal 87-241 [facility] Comment on above: Order Comment: 1 Performed By: #### L 504.2610, L3100.3425, L500.4050, L3130.0010, L3000.0800, L100.0100, L3890.5000, [id number] ####[facility] [address] [place], [place], [address] No Panel InformationOrdered By: Adalid King on 12-19-2024 Addendum Document Comment . [facility] 24 U/L <38 [facility] Comment . [facility] Oncology Visit Reporton 12-01 Oncology Visit Report Normal [facility] Potassium measurement (mass/ volume)Ordered By: Adalid King on 12-19-2024 Potassium (Unsp spec) [Mass/Vol] 3.5 mmol/L 3.3-5.1 [facility] Serum creatinine measurement (mass/volume)Ordered By: Adalid King on 12-19-2024 Creatinine [Mass/Vol] 4.53 mg/dL High 0.70-1.20 [facility] Serum globulin measurement ( mass/volume)Ordered By: Adalid King on 12-19-2024 Globulin (S) [Mass/Vol] 4.9 g/dL High 2.2-3.9 [facility] Serum glucose measurement (m ass/volume)Ordered By: Adalid King on 12-19-2024 Glucose [Mass/Vol] 339 mg/dL High 70-[address] [facility] Serum hepatitis B virus core antibody detectionOrdered By: Adalid King on 12-19-2024 HBV core Ab Ql (S) Negative Negative [facility] Serum immunoglobulin kappa l ight chains/immunoglobulin lambda light chains mass ratioOrdered By: Adalid King on 12-19-2024 Immunoglobulin light chains.kappa/Immunoglob ulin light chains.lambda (S) [Mass ratio] 0.01 Low 0.26-1.65 [facility] Serum or plasma IgA measurem ent (mass/volume)Ordered By: Adalid King on 12-19-2024 IgA [Mass/Vol] 2947 mg/dL High 61-437 [facility] Serum or plasma IgG measurem ent (mass/volume)Ordered By: Adalid King on 12-19-2024 IgG [Mass/Vol] 377 mg/dL Low 603-1613 [facility] Serum or plasma alanine saunders otransferase (ALT) measurementOrdered By: Adalid King on 12-19-2024 ALT [Catalytic activity/Vol] 51 U/L High <47 [facility] Serum or plasma albumin darell urement (mass/volume)Ordered By: Adalid King on 12-19-2024 Albumin [Mass/Vol] 3.5 g/dL 3.4-4.[address] [facility] Serum or plasma albumin/glob ulin mass ratioOrdered By: Adalid King on 12-19-2024 Albumin/Globulin [Mass ratio] 0.8 {ratio} Low 0.9-2.4 [facility] Serum or plasma alkaline chelle sphatase measurementOrdered By: Adalid King on 12-19-2024 ALP [Catalytic activity/Vol] 84 U/L 40-129 [facility] Serum or plasma alpha 1 glob ulin measurement by electrophoresis (mass/volume)Ordered By: Adalid King on 12-19-2024 Alpha 1 globulin Elph [Mass/Vol] 0.3 g/dL 0.0-0.4 [facility] Alpha 1 globulin Elph [Mass/Vol] 1.0 g/dL 0.4-1.0 [facility] Serum or plasma beta globuli n measurement by electrophoresis (mass/volume)Ordered By: Adalid King on 12-19-2024 Beta globulin Elph [Mass/Vol] 3.4 g/dL High 0.7-1.3 [facility] Serum or plasma nakg-7-gdxga globulin measurement (mass/volume)Ordered By: Adalid King on 12-19-2024 Vcps-0-Fkrnpdcolhgxg [Mass/Vol] 10.1 ug/mL High 0.6-2.4 [facility] Serum or plasma calcium darell urement (mass/volume)Ordered By: Adalid King on 12-19-2024 Calcium [Mass/Vol] 8.4 mg/dL 7.6-11.[address] [facility] Serum or plasma gamma globul in measurement by electrophoresis (mass/volume)Ordered By: Adalid King on 12-19-2024 Gamma globulin Elph [Mass/Vol] 0.2 g/dL Low 0.4-1.8 [facility] Serum or plasma hepatitis B virus surface antigen detection by immunoassayOrdered By: Adalid King on 12-19-2024 HBV surface Ag IA Ql Negative Negative [facility] Serum or plasma immunoelectr ophoresis interpretation (nominal result)Ordered By: Adalid King on 12-19-2024 Interpretation IEP [Interp] Comment High . [facility] Serum or plasma immunoglobul in kappa light chains measurement (mass/volume)Ordered By: Adalid King on 12-19-2024 Immunoglobulin light chains.kappa [Mass/Vol] 11.9 mg/L 3.3-19.4 [facility] Serum or plasma protein darell urement (mass/volume)Ordered By: Adalid King on 12-19-2024 Protein [Mass/Vol] 8.0 g/dL 6.0-8.[address] [facility] Serum or plasma urea nitroge n measurement (mass/volume)Ordered By: Adalid Costaangus on 12-19-2024 Urea nitrogen [Mass/Vol] 73 mg/dL High 4-19 [facility] Sodium levelOrdered By: Ni King on 12-19-2024 Sodium [Moles/Vol] 127 mmol/L Low 133-[address] [facility] Total proteinOrdered By: Avila King on 12-19-2024 Protein [Mass/Vol] 8.2 g/dL 5.9-8.[address] [facility] Type AND Screenon 12-19-2024 Ab SCREEN GEL Negative Normal [facility] Comment on above: Order Comment: NTNYA Performed By: #### B RC BTS ####[facility] [address] [place], [address] CBC W/Diff, Automatedon 11-30 Absolute Neut Normal 2.0-7.7 [facility] Comment on above: Result Comment: Canc elled via OM: MD Ordered Performed By: #### L 100.0100 ####[facility] [address] [place], [address] HCT Normal 40-54 [facility] Comment on above: Result Comment: Canc elled via OM: MD Ordered Performed By: #### L 100.0100 ####[facility] [address] [place], [address] HGB Normal 13.0-16.5 [facility] Comment on above: Result Comment: Canc elled via OM: MD Ordered Performed By: #### L 100.0100 ####[facility] [address] [place], [address] MCH Normal 27.0-32.0 [facility] Comment on above: Result Comment: Canc elled via OM: MD Ordered Performed By: #### L 100.0100 ####[facility] [address] [place], [address] MCHC Normal 32-36 [facility] Comment on above: Result Comment: Canc elled via OM: MD Ordered Performed By: #### L 100.0100 ####[facility] [address] [place], [address] MCV Normal 80-94 [facility] Comment on above: Result Comment: Canc elled via OM: MD Ordered Performed By: #### L 100.0100 ####[facility] [address] [place], [address] NEUT% Normal 47-70 [facility] Comment on above: Result Comment: Canc elled via OM: MD Ordered Performed By: #### L 100.0100 ####[facility] [address] [place], [address] PLT Normal 150-450 [facility] Comment on above: Result Comment: Canc elled via OM: MD Ordered Performed By: #### L 100.0100 ####[facility] [address] [place], [address] RBC Normal 4.6-6.2 [facility] Comment on above: Result Comment: Canc elled via OM: MD Ordered Performed By: #### L 100.0100 ####[facility] [address] [place], [address] RDW CV Normal 11.6-14.6 [facility] Comment on above: Result Comment: Canc elled via OM: MD Ordered Performed By: #### L 100.0100 ####[facility] [address] [place], [address] RDW SD Normal 35.1-43.9 [facility] Comment on above: Result Comment: Canc elled via OM: MD Ordered Performed By: #### L 100.0100 ####[facility] [address] [place], [address] WBC Normal 4.4-11.0 [facility] Comment on above: Result Comment: Canc elled via OM: MD Ordered Performed By: #### L 100.0100 ####[facility] [address] [place], [address] CBC W/Diff, Automatedon 10- Absolute Neut Normal 2.0-7.7 [facility] Comment on above: Result Comment: Canc elled via OM: MD Ordered Performed By: #### L 100.0100 ####[facility] [address] [place], [address] HCT Normal 40-54 [facility] Comment on above: Result Comment: Canc elled via OM: MD Ordered Performed By: #### L 100.0100 ####[facility] [address] [place], [address] HGB Normal 13.0-16.5 [facility] Comment on above: Result Comment: Canc elled via OM: MD Ordered Performed By: #### L 100.0100 ####[facility] [address] [place], [address] MCH Normal 27.0-32.0 [facility] Comment on above: Result Comment: Canc elled via OM: MD Ordered Performed By: #### L 100.0100 ####[facility] [address] [place], [address] MCHC Normal 32-36 [facility] Comment on above: Result Comment: Canc elled via OM: MD Ordered Performed By: #### L 100.0100 ####[facility] [address] [place], [address] MCV Normal 80-94 [facility] Comment on above: Result Comment: Canc elled via OM: MD Ordered Performed By: #### L 100.0100 ####[facility] [address] [place], [address] NEUT% Normal 47-70 [facility] Comment on above: Result Comment: Canc elled via OM: MD Ordered Performed By: #### L 100.0100 ####[facility] [address] [place], [address] PLT Normal 150-450 [facility] Comment on above: Result Comment: Canc elled via OM: MD Ordered Performed By: #### L 100.0100 ####[facility] [address] [place], [address] RBC Normal 4.6-6.2 [facility] Comment on above: Result Comment: Canc elled via OM: MD Ordered Performed By: #### L 100.0100 ####[facility] [address] [place], [address] RDW CV Normal 11.6-14.6 [facility] Comment on above: Result Comment: Canc elled via OM: MD Ordered Performed By: #### L 100.0100 ####[facility] [address] [place], [address] RDW SD Normal 35.1-43.9 [facility] Comment on above: Result Comment: Canc elled via OM: MD Ordered Performed By: #### L 100.0100 ####[facility] [address] [place], [address] WBC Normal 4.4-11.0 [facility] Comment on above: Result Comment: Canc elled via OM: MD Ordered Performed By: #### L 100.0100 ####[facility] [address] [place], [address] CBC W/Diff, Automatedon 10-1 Absolute Neut Normal 2.0-7.7 [facility] Comment on above: Result Comment: Canc elled via OM: MD Ordered Performed By: #### L 100.0100 ####[facility] [address] [place], [address] HCT Normal 40-54 [facility] Comment on above: Result Comment: Canc elled via OM: MD Ordered Performed By: #### L 100.0100 ####[facility] [address] [place], [address] HGB Normal 13.0-16.5 [facility] Comment on above: Result Comment: Canc elled via OM: MD Ordered Performed By: #### L 100.0100 ####[facility] [address] [place], [address] MCH Normal 27.0-32.0 [facility] Comment on above: Result Comment: Canc elled via OM: MD Ordered Performed By: #### L 100.0100 ####[facility] [address] [place], [address] MCHC Normal 32-36 [facility] Comment on above: Result Comment: Canc elled via OM: MD Ordered Performed By: #### L 100.0100 ####[facility] [address] [place], [address] MCV Normal 80-94 [facility] Comment on above: Result Comment: Canc elled via OM: MD Ordered Performed By: #### L 100.0100 ####[facility] [address] [place], [address] NEUT% Normal 47-70 [facility] Comment on above: Result Comment: Canc elled via OM: MD Ordered Performed By: #### L 100.0100 ####[facility] [address] [place], [address] PLT Normal 150-450 [facility] Comment on above: Result Comment: Canc elled via OM: MD Ordered Performed By: #### L 100.0100 ####[facility] [address] [place], [address] RBC Normal 4.6-6.2 [facility] Comment on above: Result Comment: Canc elled via OM: MD Ordered Performed By: #### L 100.0100 ####[facility] [address] [place], [address] RDW CV Normal 11.6-14.6 [facility] Comment on above: Result Comment: Canc elled via OM: MD Ordered Performed By: #### L 100.0100 ####[facility] [address] [place], [address] RDW SD Normal 35.1-43.9 [facility] Comment on above: Result Comment: Canc elled via OM: MD Ordered Performed By: #### L 100.0100 ####[facility] [address] [place], [address] WBC Normal 4.4-11.0 [facility] Comment on above: Result Comment: Canc elled via OM: MD Ordered Performed By: #### L 100.0100 ####[facility] [address] [place], [address] Oncology Visit Reporton 11-30 Oncology Visit Report Normal [facility] Viscosity, Serumon VISCOSITY,SERUM 2.4 rel.saline High 1.4-2.1 [facility] Comment on above: Order Comment: Test( s) [id number]-Dlznazfuv, Serumwas developed and its performance characteristicsdetermined by [facility]. It has not been cleared or approvedby the Food and Drug Administration. Result Comment: Valu es above 2.7 may indicate paraproteinemia is present.Performed at: [address] [id number] Director: Colt Rich MD, Phone: [phone] Performed By: #### L 1827.0128 ####[facility] [address] [place], [address] Bone Marrow Aspiratonon 11-30 BONE MARROW ASP SEE PATHOLOGY REPORT Normal [facility] Comment on above: Order Comment: SPECI MEN SENT TO [facility] FOR PROCESSING, RESULTS WILL BEREPORTED IN THE EMR SOON THEY ARE COMPLETED. Result Comment: Spec imen submitted to Anatomical Pathology Department fortesting. Performed By: #### L 350.0900 ####[facility] [address] [place], [address] CBC W/Diff, Automatedon 11-30 Absolute Neut Normal 2.0-7.7 [facility] Comment on above: Result Comment: Canc elled via OM: MD Ordered Performed By: #### L 100.0100 ####[facility] [address] [place], [address] HCT Normal 40-54 [facility] Comment on above: Result Comment: Canc elled via OM: MD Ordered Performed By: #### L 100.0100 ####[facility] [address] [place], [address] HGB Normal 13.0-16.5 [facility] Comment on above: Result Comment: Canc elled via OM: MD Ordered Performed By: #### L 100.0100 ####[facility] [address] [place], [address] MCH Normal 27.0-32.0 [facility] Comment on above: Result Comment: Canc elled via OM: MD Ordered Performed By: #### L 100.0100 ####[facility] [address] [place], [address] MCHC Normal 32-36 [facility] Comment on above: Result Comment: Canc elled via OM: MD Ordered Performed By: #### L 100.0100 ####[facility] [address] [place], [address] MCV Normal 80-94 [facility] Comment on above: Result Comment: Canc elled via OM: MD Ordered Performed By: #### L 100.0100 ####[facility] [address] [place], [address] NEUT% Normal 47-70 [facility] Comment on above: Result Comment: Canc elled via OM: MD Ordered Performed By: #### L 100.0100 ####[facility] [address] [place], [address] PLT Normal 150-450 [facility] Comment on above: Result Comment: Canc elled via OM: MD Ordered Performed By: #### L 100.0100 ####[facility] [address] [place], [address] RBC Normal 4.6-6.2 [facility] Comment on above: Result Comment: Canc elled via OM: MD Ordered Performed By: #### L 100.0100 ####[facility] [address] [place], [address] RDW CV Normal 11.6-14.6 [facility] Comment on above: Result Comment: Canc elled via OM: MD Ordered Performed By: #### L 100.0100 ####[facility] [address] [place], [address] RDW SD Normal 35.1-43.9 [facility] Comment on above: Result Comment: Canc elled via OM: MD Ordered Performed By: #### L 100.0100 ####[facility] [address] [place], [address] WBC Normal 4.4-11.0 [facility] Comment on above: Result Comment: Canc elled via OM: MD Ordered Performed By: #### L 100.0100 ####[facility] [address] [place], [address] Absolute lymphocyte countOrd ered By: Claire Mazariegos on 12-12-2024 Lymphocytes Auto (Unsp spec) [#/Vol] 1.34 10*3/uL 0.83-4.51 [facility] Anion gap in Serum or Plasma Ordered By: Suraj Paz on 12-12-2024 Anion gap [Moles/Vol] 13 mmol/L 5-15 [facility] Automated lymphocyte count a s percentage of total leukocytesOrdered By: Claire Mazariegos on 12-12-2024 Lymphocytes/100 WBC Auto (Unsp spec) 36.9 % 19-41 [facility] BRCon 12-12-2024 RC Normal [facility] Comment on above: Result Comment: [id number] OP RC TRANSFUSED 12/12/24 1437 Performed By: #### B RC, BTS ####[facility] [address] [place], [address] BUN/creatinine ratioOrdered By: Suraj Paz on 12-12-2024 Urea nitrogen/Creatinine [Mass ratio] 11.3 mg/mg - [facility] Basic Metabolic Profile (BMP )on 12-12-2024 BUN/CRE 11.3 RATIO Normal 12-19 [facility] Comment on above: Performed By: #### L 500.2500 ####[facility] [address], [address] Calcium [Mass/Vol] 10.3 mg/dL Normal 7.6-11.[address] [facility] Comment on above: Performed By: #### L 500.2500 ####[facility] [address] [place], [address] Chloride [Moles/Vol] 94 mmol/L Low 98-108 [facility] Comment on above: Performed By: #### L 500.2500 ####[facility] [address] [place], [address] CO2 [Moles/Vol] 22.0 mmol/L Normal 21.0-32.0 [facility] Comment on above: Performed By: #### L 500.2500 ####[facility] [address] [place], [address] Creatinine [Mass/Vol] 5.84 mg/dL High 0.70-1.20 [facility] Comment on above: Performed By: #### L 500.2500 ####[facility] [address] [place], [address] ECRCL 10.33 ml/min Low 50-250 [facility] Comment on above: Performed By: #### L 500.2500 ####[facility] [address] [place], [address] GAP 13 Normal 5-15 [facility] Comment on above: Performed By: #### L 500.2500 ####[facility] [address] [place], [address] GFR/1.73 sq M.predicted among non-blacks MDRD (S/P/Bld) [Vol rate/Area] 9 mL/min/{1.73_m2} Low >60 [facility] Comment on above: Result Comment: mL/m in/1.73m2 CKD-EPI Creatinine Equation (2020) Performed By: #### L 500.2500 ####[facility] [address] [place], [address] Glucose [Mass/Vol] 150 mg/dL High 70-[address] [facility] Comment on above: Performed By: #### L 500.2500 ####[facility] [address] [place], [address] Potassium [Moles/Vol] 3.6 mmol/L Normal 3.3-5.1 [facility] Comment on above: Performed By: #### L 500.2500 ####[facility] [address] [place], [address] Sodium [Moles/Vol] 129 mmol/L Low 133-[address] [facility] Comment on above: Performed By: #### L 500.2500 ####[facility] [address] [place], [address] Urea nitrogen [Mass/Vol] 66 mg/dL High 4-19 [facility] Comment on above: Performed By: #### L 500.2500 ####[facility] [address] [place], [address] Basophil percentageOrdered B y: Claire Mazariegos on 12-12-2024 Basophils/100 WBC (Bld) 0.3 % 0-1 [facility] Bedside Glucoseon 12-12-2024 FINGERSTICK GLU 255 mg/dL High 74-106 [facility] Comment on above: Result Comment: ANA GEMENT OF PATIENT CARE PER NURSING PROTOCOL Performed By: #### L 501.080 ####[facility] [address] [place], [address] FINGERSTICK GLU 213 mg/dL High 74-106 [facility] Comment on above: Result Comment: ANA GEMENT OF PATIENT CARE PER NURSING PROTOCOL Performed By: #### L 501.080 ####[facility] [address] [place], [address] FINGERSTICK GLU 133 mg/dL High 74-106 [facility] Comment on above: Result Comment: ANA GEMENT OF PATIENT CARE PER NURSING PROTOCOL Performed By: #### L 501.080 ####[facility] [address] [place], [address] CBC W/Diff, Automatedon 11-30 Absolute Lymph 1.34 X10 3/uL Normal 0.83-4.51 [facility] Comment on above: Performed By: #### L 100.0100 ####[facility] [address] [place], [address] Absolute Neut 1.6 X10 3/uL Low 2.0-7.7 [facility] Comment on above: Performed By: #### L 100.0100 ####[facility] [address] [place], [address] Basophils/100 WBC (Bld) 0.3 % Normal 0-1 [facility] Comment on above: Performed By: #### L 100.0100 ####[facility] [address] [place], [address] Eosinophils/100 WBC (Bld) 3.0 % Normal 0-5 [facility] Comment on above: Performed By: #### L 100.0100 ####[facility] [address] [place], [address] Erythrocyte distribution width (RBC) [Ratio] 11.9 % Normal 11.6-14.6 [facility] Comment on above: Performed By: #### L 100.0100 ####[facility] [address] [place], [address] Hematocrit (Bld) [Volume fraction] 19.4 % Low 40-54 [facility] Comment on above: Performed By: #### L 100.0100 ####[facility] [address] [place], [address] Hemoglobin (Bld) [Mass/Vol] 6.9 g/dL Low 13.0-16.5 [facility] Comment on above: Performed By: #### L 100.0100 ####[facility] [address] [place], [address] IG% 0.300 Normal 0.0-0.9 [facility] Comment on above: Result Comment: IG% - Immature Granulocytes (promyelocytes, myelocytes andmetamyelocytes) > 1% indicates that a LEFT SHIFT is Present. Performed By: #### L 100.0100 ####[facility] [address] [place], [address] Lymphocytes/100 WBC (Bld) 36.9 % Normal 19-41 [facility] Comment on above: Performed By: #### L 100.0100 ####[facility] [address] [place], [address] MCH (RBC) [Entitic mass] 36.1 pg High 27.0-32.0 [facility] Comment on above: Performed By: #### L 100.0100 ####[facility] [address] [place], [address] MCHC (RBC) [Mass/Vol] 35.6 g/dL Normal 32-36 [facility] Comment on above: Performed By: #### L 100.0100 ####[facility] [address] [place], [address] MCV (RBC) [Entitic vol] 101.6 fL High 80-94 [facility] Comment on above: Performed By: #### L 100.0100 ####[facility] [address] [place], [address] Monocytes/100 WBC (Bld) 14.3 % High 0-10 [facility] Comment on above: Performed By: #### L 100.0100 ####[facility] [address] [place], [address] Neutrophils/100 WBC (Bld) 45.2 % Low 47-70 [facility] Comment on above: Performed By: #### L 100.0100 ####[facility] [address] [place], [address] Nucleated RBC (Bld) [#/Vol] 0 10*3/uL Normal 0-5 [facility] Comment on above: Performed By: #### L 100.0100 ####[facility] [address] [place], [address] Platelet mean volume (Bld) [Entitic vol] 10.0 fL Normal 6.2-12.0 [facility] Comment on above: Performed By: #### L 100.0100 ####[facility] [address] [place], [address] Platelets (Bld) [#/Vol] 147 10*3/uL Low 150-450 [facility] Comment on above: Performed By: #### L 100.0100 ####[facility] [address] [place], [address] RBC (Bld) [#/Vol] 1.91 10*6/uL Low 4.6-6.2 [facility] Comment on above: Performed By: #### L 100.0100 ####[facility] [address] [place], [address] RDW SD 43.8 fl Normal 35.1-43.9 [facility] Comment on above: Performed By: #### L 100.0100 ####[facility] [address] [place], [address] WBC (Bld) [#/Vol] 3.6 10*3/uL Low 4.4-11.[address] [facility] Comment on above: Performed By: #### L 100.0100 ####[facility] [address] [place], [address] Carbon dioxide, total [Moles /volume] in Central venous bloodOrdered By: Suraj Paz on 12-12-2024 CO2 [Moles/Vol] 22.0 mmol/L 21.0-32.0 [facility] Chloride assayOrdered By: Lara Paz on 12-12-2024 Chloride [Moles/Vol] 94 mmol/L Low 98-108 [facility] Discharge Instructionon 11-30 Discharge Instruction Normal [facility] Eosinophil percentageOrdered By: Claire Mazariegos on 12-12-2024 Eosinophils/100 WBC (Bld) 3.0 % 0-5 [facility] Erythrocyte distribution wid th ratioOrdered By: Claire Mazariegos on 12-12-2024 Erythrocyte distribution width (RBC) [Ratio] 11.9 % 11.6-14.6 [facility] Erythrocyte distribution wid th standard deviationOrdered By: Claire Mazariegos on 12-12-2024 Erythrocyte distribution width (RBC) [Ratio] 43.8 fl 35.1-43.9 [facility] Glomerular filtration rate ( GFR) estimation/1.73 sq m using serum, plasma, or whole bOrdered By: Suraj Paz on 12-12-2024 GFR/1.73 sq M.predicted among non-blacks MDRD (S/P/Bld) [Vol rate/Area] 9 mL/min/{1.73_m2} Low >60 [facility]dered By: Suraj Paz on 12-12-2024 Glucose [Mass/Vol] 255 mg/dL High 74-[address] [facility] HH, Hemoglobin AND Hematocri ton 12-12-2024 Hematocrit (Bld) [Volume fraction] 20.1 % Low 40-54 [facility] Comment on above: Performed By: #### L 100.0600 ####[facility] [address] [facility] [place], [place], [phone] Hemoglobin (Bld) [Mass/Vol] 7.2 g/dL Low 13.0-16.5 [facility] Comment on above: Performed By: #### L 100.0600 ####[facility] [address] [facility] [place], [place], [phone] Hematocrit Auto (Bld) [Volum e fraction]Ordered By: Suraj Paz on 12-12-2024 Hematocrit (Bld) [Volume fraction] 20.1 % Low 40-54 [facility] Hemoglobin measurementOrdere d By: Suraj Paz on 12-12-2024 Hemoglobin (Bld) [Mass/Vol] 7.2 g/dL Low 13.0-16.5 [facility] Immature granulocytes/100 WB C Auto (Bld)Ordered By: Claire Mazariegos on 12-12-2024 Immature granulocytes/100 WBC (Bld) 0.300 % 0.0-0.9 [facility] MCV (mean corpuscular volume ) determinationOrdered By: Claire Mazariegos on 12-12-2024 MCV (RBC) [Entitic vol] 101.6 fL High 80-94 [facility] Mean corpuscular hemoglobin (MCH) determinationOrdered By: Claire Mazariegos on 12-12-2024 MCH (RBC) [Entitic mass] 36.1 pg High 27.0-32.0 [facility] Monocyte percentageOrdered B y: Claire Mazariegos on 12-12-2024 Monocytes/100 WBC (Bld) 14.3 % High 0-10 [facility] Neutrophil percentageOrdered By: Claire Mazariegos on 12-12-2024 Neutrophils/100 WBC (Bld) 45.2 % Low 47-70 [facility] Platelet countOrdered By: Mariaa Mazariegos on 12-12-2024 Platelets (Bld) [#/Vol] 147 10*3/uL Low 150-450 [facility] Potassium measurement (mass/ volume)Ordered By: Suraj Paz on 12-12-2024 Potassium (Unsp spec) [Mass/Vol] 3.6 mmol/L 3.3-5.1 [facility] Protein Electro.Ur-Randomon 12-12-2024 M-SPIKE,U Normal [facility] Comment on above: Result Comment: COMM ENT:M-SPIKE #1 = 8.5%M-SPIKE #2 = 46.5% Performed By: #### L 501.3620, L501.7300, L3600.4000, L501.5200, L501.9520, L509.1000, L3100.3425, L506.1001, L501.2300 ####[facility] [address] [place], [place], [id number] RBC Auto (Bld) [#/Vol]Ordere d By: Claire Mazariegos on 12-12-2024 RBC (Bld) [#/Vol] 1.91 10*6/uL Low 4.6-6.2 [facility] Serum creatinine measurement (mass/volume)Ordered By: Suraj Paz on 12-12-2024 Creatinine [Mass/Vol] 5.84 mg/dL High 0.70-1.20 [facility] Serum glucose measurement (m ass/volume)Ordered By: Suraj Paz on 12-12-2024 Glucose [Mass/Vol] 150 mg/dL High 70-[address] [facility] Serum or plasma calcium darell urement (mass/volume)Ordered By: Suraj Paz on 12-12-2024 Calcium [Mass/Vol] 10.3 mg/dL 7.6-11.[address] [facility] Serum or plasma urea nitroge n measurement (mass/volume)Ordered By: Suraj Paz on 12-12-2024 Urea nitrogen [Mass/Vol] 66 mg/dL High 4-19 [facility] Sodium levelOrdered By: Jae Paz on 12-12-2024 Sodium [Moles/Vol] 129 mmol/L Low 133-[address] [facility] Type AND Screenon 12-12-2024 ABO and Rh group Nom (Bld) Blood group O Rh(D) positive Normal [facility] Comment on above: Order Comment: CMV N EG? NNumber of units to transfuse: 1Reason for Ordering Blood: ChronicAre the blood/blood products to be transfused? YIs the patient having/had surgery? Ever Jack Performed By: #### B HARLEEN, BTS ####[facility] [address] [place], [place], [id number] White blood cell (WBC) count Ordered By: Claire Mazariegos on 12-12-2024 WBC (Bld) [#/Vol] 3.6 10*3/uL Low 4.4-11.[address] [facility] Basic Metabolic Profile (BMP )on 12-11-2024 BUN/CRE 9.8 RATIO Low 10-20 [facility] Comment on above: Performed By: #### L 100.0500, L500.2500 ####[facility] [address] [place], [place], [id number] Calcium [Mass/Vol] 10.1 mg/dL Normal 7.6-11.[address] [facility] Comment on above: Performed By: #### L 100.0500, L500.2500 ####[facility] [address] [place], [address] Chloride [Moles/Vol] 98 mmol/L Normal 98-108 [facility] Comment on above: Performed By: #### L 100.0500, L500.2500 ####[facility] [address] [place], [address] CO2 [Moles/Vol] 22.0 mmol/L Normal 21.0-32.0 [facility] Comment on above: Performed By: #### L 100.0500, L500.2500 ####[facility] [address] [place], [address] Creatinine [Mass/Vol] 4.77 mg/dL High 0.70-1.20 [facility] Comment on above: Performed By: #### L 100.0500, L500.2500 ####[facility] [address] [place], [address] ECRCL 12.65 ml/min Low 50-250 [facility] Comment on above: Performed By: #### L 100.0500, L500.2500 ####[facility] [address] [place], [address] GAP 14 Normal 5-15 [facility] Comment on above: Performed By: #### L 100.0500, L500.2500 ####[facility] [address] [place], [address] GFR/1.73 sq M.predicted among non-blacks MDRD (S/P/Bld) [Vol rate/Area] 11 mL/min/{1.73_m2} Low >60 [facility] Comment on above: Result Comment: mL/m in/1.73m2 CKD-EPI Creatinine Equation (2020) Performed By: #### L 100.0500, L500.2500 ####[facility] [address] [place], [address] Glucose [Mass/Vol] 116 mg/dL High 70-[address] [facility] Comment on above: Performed By: #### L 100.0500, L500.2500 ####[facility] [address] [place], [address] Potassium [Moles/Vol] 3.4 mmol/L Normal 3.3-5.1 [facility] Comment on above: Performed By: #### L 100.0500, L500.2500 ####[facility] [address] [place], [address] Sodium [Moles/Vol] 133 mmol/L Normal 133-[address] [facility] Comment on above: Performed By: #### L 100.0500, L500.2500 ####[facility] [address] [place], [address] Urea nitrogen [Mass/Vol] 47 mg/dL High 4-19 [facility] Comment on above: Performed By: #### L 100.0500, L500.2500 ####[facility] [address] [place], [address] Bedside Glucoseon 12-11-2024 FINGERSTICK GLU 174 mg/dL High 74-106 [facility] Comment on above: Result Comment: ANA GEMENT OF PATIENT CARE PER NURSING PROTOCOL Performed By: #### L 501.080 ####[facility] [address] [place], [address] FINGERSTICK GLU 190 mg/dL High 74-106 [facility] Comment on above: Result Comment: ANA GEMENT OF PATIENT CARE PER NURSING PROTOCOL Performed By: #### L 501.080 ####[facility] [address] [place], [id number] FINGERSTICK GLU 173 mg/dL High 74-106 [facility] Comment on above: Result Comment: ANA GEMENT OF PATIENT CARE PER NURSING PROTOCOL Performed By: #### L 501.080 ####[facility] [address] [place], [address] FINGERSTICK GLU 114 mg/dL High 74-106 [facility] Comment on above: Result Comment: ANA GEMENT OF PATIENT CARE PER NURSING PROTOCOL Performed By: #### L 501.080 ####[facility] [address] [place], [address] CBC W/Diff, Automatedon 10-1 2-2024 Absolute Lymph 0.88 X10 3/uL Normal 0.83-4.51 [facility] Comment on above: Performed By: #### L 100.0100 ####[facility] [address] [place], [address] Absolute Neut 1.5 X10 3/uL Low 2.0-7.7 [facility] Comment on above: Performed By: #### L 100.0100 ####[facility] [address] [place], [address] Basophils/100 WBC (Bld) 0.3 % Normal 0-1 [facility] Comment on above: Performed By: #### L 100.0100 ####[facility] [address] [place], [address] Eosinophils/100 WBC (Bld) 0.0 % Normal 0-5 [facility] Comment on above: Performed By: #### L 100.0100 ####[facility] [address] [place], [address] Erythrocyte distribution width (RBC) [Ratio] 12.0 % Normal 11.6-14.6 [facility] Comment on above: Performed By: #### L 100.0100 ####[facility] [address] [place], [address] Hematocrit (Bld) [Volume fraction] 20.6 % Low 40-54 [facility] Comment on above: Performed By: #### L 100.0100 ####[facility] [address] [place], [address] Hemoglobin (Bld) [Mass/Vol] 7.3 g/dL Low 13.0-16.5 [facility] Comment on above: Performed By: #### L 100.0100 ####[facility] [address] [place], [address] IG% 0.000 Normal 0.0-0.9 [facility] Comment on above: Result Comment: IG% - Immature Granulocytes (promyelocytes, myelocytes andmetamyelocytes) > 1% indicates that a LEFT SHIFT is Present. Performed By: #### L 100.0100 ####[facility] [address] [place], [address] Lymphocytes/100 WBC (Bld) 30.3 % Normal 19-41 [facility] Comment on above: Performed By: #### L 100.0100 ####[facility] [address] [place], [address] MCH (RBC) [Entitic mass] 36.0 pg High 27.0-32.0 [facility] Comment on above: Performed By: #### L 100.0100 ####[facility] [address] [place], [id number] MCHC (RBC) [Mass/Vol] 35.4 g/dL Normal 32-36 [facility] Comment on above: Performed By: #### L 100.0100 ####[facility] [address] [place], [address] MCV (RBC) [Entitic vol] 101.5 fL High 80-94 [facility] Comment on above: Performed By: #### L 100.0100 ####[facility] [address] [place], [address] Monocytes/100 WBC (Bld) 19.0 % High 0-10 [facility] Comment on above: Performed By: #### L 100.0100 ####[facility] [address] [place], [address] Neutrophils/100 WBC (Bld) 50.4 % Normal 47-70 [facility] Comment on above: Performed By: #### L 100.0100 ####[facility] [address] [place], [address] Nucleated RBC (Bld) [#/Vol] 0 10*3/uL Normal 0-5 [facility] Comment on above: Performed By: #### L 100.0100 ####[facility] [address] [place], [id number] Platelet mean volume (Bld) [Entitic vol] 9.8 fL Normal 6.2-12.0 [facility] Comment on above: Performed By: #### L 100.0100 ####[facility] [address] [place], [address] Platelets (Bld) [#/Vol] 139 10*3/uL Low 150-450 [facility] Comment on above: Performed By: #### L 100.0100 ####[facility] [address] [place], [address] RBC (Bld) [#/Vol] 2.03 10*6/uL Low 4.6-6.2 [facility] Comment on above: Performed By: #### L 100.0100 ####[facility] [address] [place], [address] RDW SD 43.9 fl Normal 35.1-43.9 [facility] Comment on above: Performed By: #### L 100.0100 ####[facility] [address] [place], [address] WBC (Bld) [#/Vol] 2.9 10*3/uL Low 4.4-11.[address] [facility] Comment on above: Performed By: #### L 100.0100 ####[facility] [address] [place], [address] CBC-Complete Blood Cnt No Di ffon 12-11-2024 HCT Normal 40-54 [facility] Comment on above: Result Comment: Canc elled via OM: MD Ordered Performed By: #### L 100.0500, L500.2500 ####[facility] [address] [place], [address] HGB Normal 13.0-16.5 [facility] Comment on above: Result Comment: Canc elled via OM: MD Ordered Performed By: #### L 100.0500, L500.2500 ####[facility] [address] [place], [address] MCH Normal 27.0-32.0 [facility] Comment on above: Result Comment: Canc elled via OM: MD Ordered Performed By: #### L 100.0500, L500.2500 ####[facility] [address] [place], [address] MCHC Normal 32-36 [facility] Comment on above: Result Comment: Canc elled via OM: MD Ordered Performed By: #### L 100.0500, L500.2500 ####[facility] [address] [place], [address] MCV Normal 80-94 [facility] Comment on above: Result Comment: Canc elled via OM: MD Ordered Performed By: #### L 100.0500, L500.2500 ####[facility] [address] [place], [address] PLT Normal 150-450 [facility] Comment on above: Result Comment: Canc elled via OM: MD Ordered Performed By: #### L 100.0500, L500.2500 ####[facility] [address] [place], [address] RBC Normal 4.6-6.2 [facility] Comment on above: Result Comment: Canc elled via OM: MD Ordered Performed By: #### L 100.0500, L500.2500 ####[facility] [address] [place], [address] RDW CV Normal 11.6-14.6 [facility] Comment on above: Result Comment: Canc elled via OM: MD Ordered Performed By: #### L 100.0500, L500.2500 ####[facility] [address] [place], [address] RDW SD Normal 35.1-43.9 [facility] Comment on above: Result Comment: Canc elled via OM: MD Ordered Performed By: #### L 100.0500, L500.2500 ####[facility] [address] [place], [address] WBC Normal 4.4-11.0 [facility] Comment on above: Result Comment: Canc elled via OM: MD Ordered Performed By: #### L 100.0500, L500.2500 ####[facility] [address] [place], [address] Basic Metabolic Profile (BMP )on 12-10-2024 BUN/CRE 12.0 RATIO Normal 10-20 [facility] Comment on above: Performed By: #### L 500.2500, L100.0500 ####[facility] [address] [place], [address] Calcium [Mass/Vol] 10.8 mg/dL Normal 7.6-11.[address] [facility] Comment on above: Performed By: #### L 500.2500, L100.0500 ####[facility] [address] [place], [address] Chloride [Moles/Vol] 96 mmol/L Low 98-108 [facility] Comment on above: Performed By: #### L 500.2500, L100.0500 ####[facility] [address] [place], [id number] CO2 [Moles/Vol] 21.1 mmol/L Normal 21.0-32.0 [facility] Comment on above: Performed By: #### L 500.2500, L100.0500 ####[facility] [address] [place], [address] Creatinine [Mass/Vol] 6.03 mg/dL High 0.70-1.20 [facility] Comment on above: Performed By: #### L 500.2500, L100.0500 ####[facility] [address] [place], [address] ECRCL 10.01 ml/min Low 50-250 [facility] Comment on above: Performed By: #### L 500.2500, L100.0500 ####[facility] [address] [place], [address] GAP 14 Normal 5-15 [facility] Comment on above: Performed By: #### L 500.2500, L100.0500 ####[facility] [address] [place], [address] GFR/1.73 sq M.predicted among non-blacks MDRD (S/P/Bld) [Vol rate/Area] 9 mL/min/{1.73_m2} Low >60 [facility] Comment on above: Result Comment: mL/m in/1.73m2 CKD-EPI Creatinine Equation (2020) Performed By: #### L 500.2500, L100.0500 ####[facility] [address] [place], [address] Glucose [Mass/Vol] 135 mg/dL High 70-[address] [facility] Comment on above: Performed By: #### L 500.2500, L100.0500 ####[facility] [address] [place], [address] Potassium [Moles/Vol] 3.6 mmol/L Normal 3.3-5.1 [facility] Comment on above: Performed By: #### L 500.2500, L100.0500 ####[facility] [address] [place], [address] Sodium [Moles/Vol] 131 mmol/L Low 133-[address] [facility] Comment on above: Performed By: #### L 500.2500, L100.0500 ####[facility] [address] [place], [address] Urea nitrogen [Mass/Vol] 72 mg/dL High 4-19 [facility] Comment on above: Performed By: #### L 500.2500, L100.0500 ####[facility] [address] [place], [address] Bedside Glucoseon 12-10-2024 FINGERSTICK GLU 156 mg/dL High 74-106 [facility] Comment on above: Result Comment: ANA GEMENT OF PATIENT CARE PER NURSING PROTOCOL Performed By: #### L 501.080 ####[facility] [address] [place], [address] FINGERSTICK GLU 205 mg/dL High 74-106 [facility] Comment on above: Result Comment: ANA GEMENT OF PATIENT CARE PER NURSING PROTOCOL Performed By: #### L 501.080 ####[facility] [address] [place], [address] FINGERSTICK GLU 113 mg/dL High 74-106 [facility] Comment on above: Result Comment: ANA GEMENT OF PATIENT CARE PER NURSING PROTOCOL Performed By: #### L 501.080 ####[facility] [address] [place], [address] FINGERSTICK GLU 119 mg/dL High 74-106 [facility] Comment on above: Result Comment: ANA PARKER OF PATIENT CARE PER NURSING PROTOCOL Performed By: #### L 501.080 ####[facility] [address] [place], [id number] CBC W/Diff, Automatedon 10- Absolute Lymph 0.91 X10 3/uL Normal 0.83-4.51 [facility] Comment on above: Performed By: #### L 100.0100 ####[facility] [address] [place], [address] Absolute Neut 3.1 X10 3/uL Normal 2.0-7.7 [facility] Comment on above: Performed By: #### L 100.0100 ####[facility] [address] [place], [address] Basophils/100 WBC (Bld) 0.2 % Normal 0-1 [facility] Comment on above: Performed By: #### L 100.0100 ####[facility] [address] [place], [address] Eosinophils/100 WBC (Bld) 1.9 % Normal 0-5 [facility] Comment on above: Performed By: #### L 100.0100 ####[facility] [address] [place], [address] Erythrocyte distribution width (RBC) [Ratio] 11.9 % Normal 11.6-14.6 [facility] Comment on above: Performed By: #### L 100.0100 ####[facility] [address] [place], [address] Hematocrit (Bld) [Volume fraction] 19.9 % Low 40-54 [facility] Comment on above: Performed By: #### L 100.0100 ####[facility] [address] [place], [address] Hemoglobin (Bld) [Mass/Vol] 7.2 g/dL Low 13.0-16.5 [facility] Comment on above: Performed By: #### L 100.0100 ####[facility] [address] [place], [address] IG% 0.600 Normal 0.0-0.9 [facility] Comment on above: Result Comment: IG% - Immature Granulocytes (promyelocytes, myelocytes andmetamyelocytes) > 1% indicates that a LEFT SHIFT is Present. Performed By: #### L 100.0100 ####[facility] [address] [place], [address] Lymphocytes/100 WBC (Bld) 19.1 % Normal 19-41 [facility] Comment on above: Performed By: #### L 100.0100 ####[facility] [address] [place], [address] MCH (RBC) [Entitic mass] 36.5 pg High 27.0-32.0 [facility] Comment on above: Performed By: #### L 100.0100 ####[facility] [address] [place], [address] MCHC (RBC) [Mass/Vol] 36.2 g/dL High 32-36 [facility] Comment on above: Performed By: #### L 100.0100 ####[facility] [address] [place], [address] MCV (RBC) [Entitic vol] 101.0 fL High 80-94 [facility] Comment on above: Performed By: #### L 100.0100 ####[facility] [address] [place], [address] Monocytes/100 WBC (Bld) 12.6 % High 0-10 [facility] Comment on above: Performed By: #### L 100.0100 ####[facility] [address] [place], [address] Neutrophils/100 WBC (Bld) 65.6 % Normal 47-70 [facility] Comment on above: Performed By: #### L 100.0100 ####[facility] [address] [place], [id number] Nucleated RBC (Bld) [#/Vol] 0 10*3/uL Normal 0-5 [facility] Comment on above: Performed By: #### L 100.0100 ####[facility] [address] [place], [address] Platelet mean volume (Bld) [Entitic vol] 10.0 fL Normal 6.2-12.0 [facility] Comment on above: Performed By: #### L 100.0100 ####[facility] [address] [place], [address] Platelets (Bld) [#/Vol] 147 10*3/uL Low 150-450 [facility] Comment on above: Performed By: #### L 100.0100 ####[facility] [address] [place], [address] RBC (Bld) [#/Vol] 1.97 10*6/uL Low 4.6-6.2 [facility] Comment on above: Performed By: #### L 100.0100 ####[facility] [address] [place], [address] RDW SD 43.4 fl Normal 35.1-43.9 [facility] Comment on above: Performed By: #### L 100.0100 ####[facility] [address] [place], [address] WBC (Bld) [#/Vol] 4.8 10*3/uL Normal 4.4-11.[address] [facility] Comment on above: Performed By: #### L 100.0100 ####[facility] [address] [place], [address] CBC-Complete Blood Cnt No Di ffon 12-10-2024 HCT Normal 40-54 [facility] Comment on above: Result Comment: Canc elled via OM: MD Ordered Performed By: #### L 500.2500, L100.0500 ####[facility] [address] [place], [address] HGB Normal 13.0-16.5 [facility] Comment on above: Result Comment: Canc elled via OM: MD Ordered Performed By: #### L 500.2500, L100.0500 ####[facility] [address] [place], [address] MCH Normal 27.0-32.0 [facility] Comment on above: Result Comment: Canc elled via OM: MD Ordered Performed By: #### L 500.2500, L100.0500 ####[facility] [address] [place], [address] MCHC Normal 32-36 [facility] Comment on above: Result Comment: Canc elled via OM: MD Ordered Performed By: #### L 500.2500, L100.0500 ####[facility] [address] [place], [address] MCV Normal 80-94 [facility] Comment on above: Result Comment: Canc elled via OM: MD Ordered Performed By: #### L 500.2500, L100.0500 ####[facility] [address] [place], [address] PLT Normal 150-450 [facility] Comment on above: Result Comment: Canc elled via OM: MD Ordered Performed By: #### L 500.2500, L100.0500 ####[facility] [address] [place], [address] RBC Normal 4.6-6.2 [facility] Comment on above: Result Comment: Canc elled via OM: MD Ordered Performed By: #### L 500.2500, L100.0500 ####[facility] [address] [place], [address] RDW CV Normal 11.6-14.6 [facility] Comment on above: Result Comment: Canc elled via OM: MD Ordered Performed By: #### L 500.2500, L100.0500 ####[facility] [address] [place], [address] RDW SD Normal 35.1-43.9 [facility] Comment on above: Result Comment: Canc elled via OM: MD Ordered Performed By: #### L 500.2500, L100.0500 ####[facility] [address] [place], [address] WBC Normal 4.4-11.0 [facility] Comment on above: Result Comment: Canc elled via OM: MD Ordered Performed By: #### L 500.2500, L100.0500 ####[facility] [address] [place], [address] Activated partial thrombopla stin time (aPTT) in platelet poor plasma by coagulation aOrdered By: Claire Mazariegos on 12-09-2024 aPTT Coag (PPP) [Time] 28.0 s 24.1-36.2 [facility] BRCon 12-09-2024 RC Normal [facility] Comment on above: Result Comment: [id number] OP RC READY Performed By: #### B CHICA, BR ####[facility] [address] [place], [address] Basic Metabolic Profile (BMP )on 12-09-2024 BUN/CRE 10.9 RATIO Normal 10-20 [facility] Comment on above: Performed By: #### L 100.0500, L501.5200, L500.2500 ####[facility] [address] [place], [address] Calcium [Mass/Vol] 10.7 mg/dL Normal 7.6-11.[address] [facility] Comment on above: Performed By: #### L 100.0500, L501.5200, L500.2500 ####[facility] [address] [place], [address] Chloride [Moles/Vol] 98 mmol/L Normal 98-108 [facility] Comment on above: Performed By: #### L 100.0500, L501.5200, L500.2500 ####[facility] [address] [place], [address] CO2 [Moles/Vol] 23.9 mmol/L Normal 21.0-32.0 [facility] Comment on above: Performed By: #### L 100.0500, L501.5200, L500.2500 ####[facility] [address] [place], [address] Creatinine [Mass/Vol] 4.94 mg/dL High 0.70-1.20 [facility] Comment on above: Performed By: #### L 100.0500, L501.5200, L500.2500 ####[facility] [address] [place], [address] ECRCL 12.22 ml/min Low 50-250 [facility] Comment on above: Performed By: #### L 100.0500, L501.5200, L500.2500 ####[facility] [address] [place], [address] GAP 12 Normal 5-15 [facility] Comment on above: Performed By: #### L 100.0500, L501.5200, L500.2500 ####[facility] [address] [place], [address] GFR/1.73 sq M.predicted among non-blacks MDRD (S/P/Bld) [Vol rate/Area] 11 mL/min/{1.73_m2} Low >60 [facility] Comment on above: Result Comment: mL/m in/1.73m2 CKD-EPI Creatinine Equation (2020) Performed By: #### L 100.0500, L501.5200, L500.2500 ####[facility] [address] [place], [address] Glucose [Mass/Vol] 96 mg/dL Normal 70-[address] [facility] Comment on above: Performed By: #### L 100.0500, L501.5200, L500.2500 ####[facility] [address] [place], [address] Potassium [Moles/Vol] 3.8 mmol/L Normal 3.3-5.1 [facility] Comment on above: Performed By: #### L 100.0500, L501.5200, L500.2500 ####[facility] [address] [place], [address] Sodium [Moles/Vol] 134 mmol/L Normal 133-[address] [facility] Comment on above: Performed By: #### L 100.0500, L501.5200, L500.2500 ####[facility] [address] [place], [address] Urea nitrogen [Mass/Vol] 54 mg/dL High 4-19 [facility] Comment on above: Performed By: #### L 100.0500, L501.5200, L500.2500 ####[facility] [address] [place], [address] Bedside Glucoseon 12-09-2024 FINGERSTICK GLU 206 mg/dL High 74-106 [facility] Comment on above: Result Comment: ANA PARKER OF PATIENT CARE PER NURSING PROTOCOL Performed By: #### L 501.080 ####[facility] [address] [place], [address] FINGERSTICK GLU 100 mg/dL Normal 74-106 [facility] Comment on above: Result Comment: ANA GEMENT OF PATIENT CARE PER NURSING PROTOCOL Performed By: #### L 501.080 ####[facility] [address] [place], [address] FINGERSTICK GLU 84 mg/dL Normal 74-106 [facility] Comment on above: Result Comment: ANA GEMENT OF PATIENT CARE PER NURSING PROTOCOL Performed By: #### L 501.080 ####[facility] [address] [place], [address] FINGERSTICK GLU 94 mg/dL Normal 74-106 [facility] Comment on above: Result Comment: ANA GEMENT OF PATIENT CARE PER NURSING PROTOCOL Performed By: #### L 501.080 ####[facility] [address] [place], [address] Biopsy/Inj or Needle Placeme nton 12-09-2024 Biopsy/Inj or Needle Placement Normal [facility] CBC W/Diff, Automatedon - 0-2024 Absolute Lymph 1.05 X10 3/uL Normal 0.83-4.51 [facility] Comment on above: Order Comment: Comme nts: need the diff part for bone marrow bx today! Performed By: #### L 100.0100, L300.3900, L300.4310 ####[facility] [address] [place], [address] Absolute Neut 4.0 X10 3/uL Normal 2.0-7.7 [facility] Comment on above: Order Comment: Comme nts: need the diff part for bone marrow bx today! Performed By: #### L 100.0100, L300.3900, L300.4310 ####[facility] [address] [place], [address] Basophils/100 WBC (Bld) 0.2 % Normal 0-1 [facility] Comment on above: Order Comment: Dorys nts: need the diff part for bone marrow bx today! Performed By: #### L 100.0100, L300.3900, L300.4310 ####[facility] [address] [place], [address] Eosinophils/100 WBC (Bld) 1.0 % Normal 0-5 [facility] Comment on above: Order Comment: Commreinaldo nts: need the diff part for bone marrow bx today! Performed By: #### L 100.0100, L300.3900, L300.4310 ####[facility] [address] [place], [address] Erythrocyte distribution width (RBC) [Ratio] 12.1 % Normal 11.6-14.6 [facility] Comment on above: Order Comment: Dorys nts: need the diff part for bone marrow bx today! Performed By: #### L 100.0100, L300.3900, L300.4310 ####[facility] [address] [place], [address] Hematocrit (Bld) [Volume fraction] 23.6 % Low 40-54 [facility] Comment on above: Order Comment: Dorys nts: need the diff part for bone marrow bx today! Performed By: #### L 100.0100, L300.3900, L300.4310 ####[facility] [address] [place], [address] Hemoglobin (Bld) [Mass/Vol] 8.2 g/dL Low 13.0-16.5 [facility] Comment on above: Order Comment: Dorys nts: need the diff part for bone marrow bx today! Performed By: #### L 100.0100, L300.3900, L300.4310 ####[facility] [address] [place], [address] IG% 0.300 Normal 0.0-0.9 [facility] Comment on above: Order Comment: Comme nts: need the diff part for bone marrow bx today! Result Comment: IG% - Immature Granulocytes (promyelocytes, myelocytes andmetamyelocytes) > 1% indicates that a LEFT SHIFT is Present. Performed By: #### L 100.0100, L300.3900, L300.4310 ####[facility] [address] [place], [address] Lymphocytes/100 WBC (Bld) 18.0 % Low 19-41 [facility] Comment on above: Order Comment: Comme nts: need the diff part for bone marrow bx today! Performed By: #### L 100.0100, L300.3900, L300.4310 ####[facility] [address] [place], [address] MCH (RBC) [Entitic mass] 36.3 pg High 27.0-32.0 [facility] Comment on above: Order Comment: Comme nts: need the diff part for bone marrow bx today! Performed By: #### L 100.0100, L300.3900, L300.4310 ####[facility] [address] [place], [address] MCHC (RBC) [Mass/Vol] 34.7 g/dL Normal 32-36 [facility] Comment on above: Order Comment: Comme nts: need the diff part for bone marrow bx today! Performed By: #### L 100.0100, L300.3900, L300.4310 ####[facility] [address] [place], [address] MCV (RBC) [Entitic vol] 104.4 fL High 80-94 [facility] Comment on above: Order Comment: Comme nts: need the diff part for bone marrow bx today! Performed By: #### L 100.0100, L300.3900, L300.4310 ####[facility] [address] [place], [address] Monocytes/100 WBC (Bld) 12.5 % High 0-10 [facility] Comment on above: Order Comment: Dorys nts: need the diff part for bone marrow bx today! Performed By: #### L 100.0100, L300.3900, L300.4310 ####[facility] [address] [place], [address] Neutrophils/100 WBC (Bld) 68.0 % Normal 47-70 [facility] Comment on above: Order Comment: Dorys nts: need the diff part for bone marrow bx today! Performed By: #### L 100.0100, L300.3900, L300.4310 ####[facility] [address] [place], [address] Nucleated RBC (Bld) [#/Vol] 0 10*3/uL Normal 0-5 [facility] Comment on above: Order Comment: Dorys nts: need the diff part for bone marrow bx today! Performed By: #### L 100.0100, L300.3900, L300.4310 ####[facility] [address] [place], [address] Platelet mean volume (Bld) [Entitic vol] 9.9 fL Normal 6.2-12.0 [facility] Comment on above: Order Comment: Dorys nts: need the diff part for bone marrow bx today! Performed By: #### L 100.0100, L300.3900, L300.4310 ####[facility] [address] [place], [address] Platelets (Bld) [#/Vol] 149 10*3/uL Low 150-450 [facility] Comment on above: Order Comment: Dorys nts: need the diff part for bone marrow bx today! Performed By: #### L 100.0100, L300.3900, L300.4310 ####[facility] [address] [place], [address] RBC (Bld) [#/Vol] 2.26 10*6/uL Low 4.6-6.2 [facility] Comment on above: Order Comment: Comme nts: need the diff part for bone marrow bx today! Performed By: #### L 100.0100, L300.3900, L300.4310 ####[facility] [address] [place], [address] RDW SD 46.1 fl High 35.1-43.9 [facility] Comment on above: Order Comment: Comme nts: need the diff part for bone marrow bx today! Performed By: #### L 100.0100, L300.3900, L300.4310 ####[facility] [address] [place], [address] WBC (Bld) [#/Vol] 5.8 10*3/uL Normal 4.4-11.[address] [facility] Comment on above: Order Comment: Comme nts: need the diff part for bone marrow bx today! Performed By: #### L 100.0100, L300.3900, L300.4310 ####[facility] [address] [place], [address] CBC-Complete Blood Cnt No Di ffon 12-09-2024 Erythrocyte distribution width (RBC) [Ratio] 12.1 % Normal 11.6-14.6 [facility] Comment on above: Performed By: #### L 100.0500, L501.5200, L500.2500 ####[facility] [address] [place], [address] Hematocrit (Bld) [Volume fraction] 20.0 % Low 40-54 [facility] Comment on above: Performed By: #### L 100.0500, L501.5200, L500.2500 ####[facility] [address] [place], [address] Hemoglobin (Bld) [Mass/Vol] 6.9 g/dL Low 13.0-16.5 [facility] Comment on above: Performed By: #### L 100.0500, L501.5200, L500.2500 ####[facility] [address] [place], [address] MCH (RBC) [Entitic mass] 36.1 pg High 27.0-32.0 [facility] Comment on above: Performed By: #### L 100.0500, L501.5200, L500.2500 ####[facility] [address] [place], [address] MCHC (RBC) [Mass/Vol] 34.5 g/dL Normal 32-36 [facility] Comment on above: Performed By: #### L 100.0500, L501.5200, L500.2500 ####[facility] [address] [place], [address] MCV (RBC) [Entitic vol] 104.7 fL High 80-94 [facility] Comment on above: Performed By: #### L 100.0500, L501.5200, L500.2500 ####[facility] [address] [place], [address] Platelet mean volume (Bld) [Entitic vol] 10.1 fL Normal 6.2-12.0 [facility] Comment on above: Performed By: #### L 100.0500, L501.5200, L500.2500 ####[facility] [address] [place], [address] Platelets (Bld) [#/Vol] 126 10*3/uL Low 150-450 [facility] Comment on above: Performed By: #### L 100.0500, L501.5200, L500.2500 ####[facility] [address] [place], [address] RBC (Bld) [#/Vol] 1.91 10*6/uL Low 4.6-6.2 [facility] Comment on above: Performed By: #### L 100.0500, L501.5200, L500.2500 ####[facility] [address] [place], [address] RDW SD 46.1 fl High 35.1-43.9 [facility] Comment on above: Performed By: #### L 100.0500, L501.5200, L500.2500 ####[facility] [address] [place], [address] WBC (Bld) [#/Vol] 5.0 10*3/uL Normal 4.4-11.[address] [facility] Comment on above: Performed By: #### L 100.0500, L501.5200, L500.2500 ####[facility] [address] [place], [address] CYTOGENETIC STUDIES (PERFORM ABLE)on 12-09-2024 Clinical History Monoclonal Gammopathy Normal [facility] Comment on above: Order Comment: Pieter najera do not use this order for add-ons Place sample for CYTOGENETICS in Sodium (NA) heparin tube. Performed By: #### Chanel MEEKS, [id number] #### [facility] (DEFAULT) [address] [address] Interpretation Normal [facility] Comment on above: Order Comment: Pieter najera do not use this order for add-ons Place sample for CYTOGENETICS in Sodium (NA) heparin tube. Result Comment: Ther e was insufficient sample to perform both cytogenetic analysis and FISH analysis; therefore, the cytogenetic analysis was not performed. FISH analysis on this sample is pending and will be reported subsequently. Performed By: #### Chanel MEEKS, [id number] #### [facility] (DEFAULT) [address] [address] Karyotype Not performed Normal [facility] Comment on above: Order Comment: Pieter najera do not use this order for add-ons Place sample for CYTOGENETICS in Sodium (NA) heparin tube. Performed By: #### C JEANNA, [id number] #### [facility] (DEFAULT) [address] [place] [address] Specimen Received Bone Marrow Aspirate obtained 12/09/24 Normal [facility] Comment on above: Order Comment: Pieter najera do not use this order for add-ons Place sample for CYTOGENETICS in Sodium (NA) heparin tube. Performed By: #### C YTCHAPARRITA, [id number] #### [facility] (DEFAULT) [address] [place] [address] Echocardiogram study reportO rdered By: Vamsi Sams on 12-09-2024 Study report [facility] Work Phone: FISH STUDIESon 12-09-2024 Culture Method Normal [facility] Comment on above: Order Comment: Pieter [...] specific [employer] RB1 200 locus - specific [facility] LAMP1 200 locus - specific [facility] IGH-CCND1 200 dual-color, dual fusion Cruz [...] determined by the Cytogenetics Lab at [facility]. It has not been cleared or approved by the FDA. The laboratory is regulated under CLIA as qualified to perform high-complexity testing. This test is used for clinical purposes. It should not be regarded as investigational or for research. Pursuant to the requirements of CLIA'88, this laboratory has established and verified the test's accuracy and precision. Performed By: #### Chanel MEEKS [id number] #### [facility] (DEFAULT) [address] [address] FISH Interpretation Normal [facility] Comment on above: Order Comment: Pieter [...] vol. 11). Performed By: #### Chanel MEEKS [id number] #### [facility] (DEFAULT) [address] [address] FISH Report Normal [facility] Comment on above: Order Comment: Pieter najera do not use this order for add-ons Place sample for CYTOGENETICS in Sodium (NA) heparin tube. Result Comment: MYEL YESICA Results Probe Interpretation Patient% Signal/[place] 1p32.3 (CDKN2C) negative 0.5 1 signal/ 5.8% 1q21.3 (CKS1B) negative 0 3 signals/ 3.5% 7p11.1-q11.1 (D7Z1) negative 1.0 3 signals/ 2.1% 3w55-p11 (D9Z4) POSITIVE FOR 3 SIGNALS 54.0 3 [...] bap/ 7.4% 1 signal(5'IGH)/ 0.6% nuc jonathon (CDKN2C,CKS1B)x2[200],(D7Z1)x2[200],(D9Z4)x3[108/200],(KIFX9i5 ,IGHx2)[94/200]/(ZFMD8f1,IGHx2)(CCND1 con IGH)x1[11/200],(ATMx3,TP53x2)[76/200]/(ATMx1,TP53x2)[55/200]/( ATMx4,TP53x2)[4/200],(RB1,LAMP1)x2[200],(3'IGHx2,5'IGHx1)(3'IG H con 5'IGH)x1[8/200],(D15Z4)x3[106/200] Performed By: #### C YTOGP, [id number] #### [facility] (DEFAULT) [address] [place] [address] IMMUNOPHENOTYPINGon 12-10-19 25 BKR DX CODE Use Ordering Normal [facility] Comment on above: Performed By: #### I MMUNOPHENOTYPING #### [facility] (DEFAULT) [address] [place] [address] Flow Interpreted by: Medardo Mejía MD Normal [facility] Comment on above: Performed By: #### I MMUNOPHENOTYPING #### [facility] (DEFAULT) [address] [place] [address] IMMUNOPHENOTYPING FLOW See Scanned Result Normal [facility] Comment on above: Performed By: #### I MMUNOPHENOTYPING #### [facility] (DEFAULT) [address] [place] [address] SAMPLE TYPE Bone Marrow Normal [facility] Comment on above: Performed By: #### I MMUNOPHENOTYPING #### [facility] (DEFAULT) [address] [place] [address] L350.1815on 12-09-2024 Path [facility] BMBx SEE PATHOLOGY REPORT Normal [facility] Comment on above: Order Comment: RESUL TS FAXED TO DR KING 12/13/24 1108 Jay Méndez. Result Comment: Spec imen sent to [facility] Pathology [facility].Report available in EMR. Performed By: #### L 350.1815 ####[facility] [address] [place], [address] Magnesiumon 12-09-2024 Magnesium [Mass/Vol] 2.6 mg/dL High 1.5-2.2 [facility] Comment on above: Performed By: #### L 100.0500, L501.5200, L500.2500 ####[facility] [address] [place], [address] Magnesium measurement (mass/ volume)Ordered By: Claire Mazariegos on 12-09-2024 Magnesium (Unsp spec) [Mass/Vol] 2.6 mg/dL High 1.5-2.2 [facility] Natriuretic peptide.B prohor nicki N-Terminal [Mass/volume] in Serum or PlasmaOrdered By: Claire Mazariegos on 12-09-2024 Natriuretic peptide.B prohormone N-Terminal [Mass/Vol] 97767 pg/mL High <1800 [facility] Partial Thromboplast Timeon 12-09-2024 aPTT Coag (Bld) [Time] 28.0 s Normal 24.1-36.2 [facility] Comment on above: Performed By: #### L 100.0100, L300.3900, L300.4310 ####[facility] [address] [place], [address] Pro- Brain NATRIURETIC PEPTI Irish 12-09-2024 Natriuretic peptide B (Bld) [Mass/Vol] 86882 pg/mL High <=1800 [facility] Comment on above: Result Comment: Hear t Failure Unlikely: < 300 pg/mLHeart Failure Likely< 50 Years: > 450 pg/mL50-75 Years: > 900 pg/mL>75 Years: > 1800 pg/mL Performed By: #### L 503.5170 ####[facility] [address] [place], [address] Prothrombin Time w/INRon INR Coag (PPP) [Relative time] 1.2 {INR} Normal [facility] Comment on above: Performed By: #### L 100.0100, L300.3900, L300.4310 ####[facility] [address] [place], [address] PT Coag (PPP) [Time] 15.0 s High 11.7-14.9 [facility] Comment on above: Performed By: #### L 100.0100, L300.3900, L300.4310 ####[facility] [address] [place], [address] Prothrombin timeOrdered By: Claire Mazariegos on 12-09-2024 PT Coag (PPP) [Time] 15.0 s High 11.7-14.9 [facility] Quantitative serum viscosity measurementOrdered By: Claire Mazariegos on 12-09-2024 Viscosity (S) [Visc] 2.4 rel.saline High 1.4-2.1 [facility] Retic Panelon 12-09-2024 IM RET FRACTION 8.90 Normal 3.00-15.90 [facility] Comment on above: Order Comment: H19 Performed By: #### L 100.9950 ####[facility] [address] [place], [address] RET-HE 39.1 pg High 30-35 [facility] Comment on above: Order Comment: H19 Performed By: #### L 100.9950 ####[facility] [address] [place], [address] Retic Count 0.76 Normal 0.5-1.5 [facility] Comment on above: Order Comment: H19 Performed By: #### L 100.9950 ####[facility] [address] [place], [address] SURG PATH REQUESTon 12-10-19 Addendum Normal [facility] Comment on above: Result Comment: This [...] developed by and are performed at the [facility] Clinical Laboratory, Histology and IHC Lab, [address] [place] [address]. All Immunofluorescent (IF) tests were developed by and are performed at the [facility] Clinical Laboratory, Renal Division, [address] [place] [address]. All tests reported here, except for PD-L1, have not been cleared by or approved by the US Food and Drug Administration (FDA). The laboratory is regulated under CLIA as qualified to perform high-complexity testing. The tests are used for clinical purposes. They should not be regarded as investigational or for research. The histochemical tests reported here were performed at the the [facility] Clinical Laboratory, [address] [place] [address]. Addendum electronically signed by Medardo Mejía MD on 12/15/2024 at 0906 EDT Performed By: #### S URGP #### [facility] (DEFAULT) [address] [place] [address] Case Report Normal [facility] Comment on above: Result Comment: Surg ical Pathology Report Case: [id number] Authorizing Provider: ADILSON Avila [facility] Collected: 12/09/2024 01:00 PM Ordering Location: [facility] Received: 12/12/2024 09:37 AM [place] Pathologist: Medardo Mejía MD Specimens: A) - SURG PATH, core B) - SURG PATH, clot Performed By: #### S URGP #### [facility] (DEFAULT) [address] [place] [address] Clinical History Suspect myeloma [D47 .2]. Monoclonal gammopathy. Normal [facility] Comment on above: Performed By: #### S URGP #### [facility] (DEFAULT) [address] [place] [address] Diagnosis Comments Normal [facility] Comment on above: Result Comment: Farhana ents [...] developed by and are performed at the [facility] Clinical Laboratory, Histology and IHC Lab, [address] [place] [address]. All Immunofluorescent (IF) tests were developed by and are performed at the [facility] Clinical Laboratory, Renal Division, [address] [place] [address]. All tests reported here, except for PD-L1, have not been cleared by or approved by the [place] Food and Drug Administration (FDA). The laboratory is regulated under CLIA as qualified to perform high-complexity testing. The tests are used for clinical purposes. They should not be regarded as investigational or for research. The histochemical tests reported here were performed at the the [facility] Clinical Laboratory, [address] [place] [address]. Performed By: #### S URGP #### [facility] (DEFAULT) [address] [place] [address] Gross Description Normal [facility] Comment on above: Result Comment: The specimen [...] blood. TE 1 Lab Use Only: JobID [id number] Jeramieer for this case was: Tanika Fam Performed By: #### S URGP #### [facility] (DEFAULT) [address] [place] [address] Microscopic Description Normal [facility] Comment on above: Result Comment: A mi [...] with the guidelines of the [employer] for the reporting of cancer specimens. *Hematopoietic neoplasms are classified according to: - WHO Classification of Tumours Editorial Board. Haematolymphoid tumours. Dukes ([place]el): International Agency for Research on Cancer; (WHO classification of tumours series, 5th ed.; vol. 11, 2021). https://publications.iarc.fr. - The International Consensus Classification of Mature Lymphoid Neoplasms: a report from the Clinical Advisory Committee. Blood. 2021Nov 14;140(11):8818-0793. doi: 10.1182/blood.4704142104. Erratum in: Blood. 2022Mar 27;141(4):437. PMID: 87714789; PMCID: [id number]. -International Consensus Classification of Myeloid Neoplasms and Acute Leukemias: integrating morphologic, clinical, and genomic data. Blood. 2021Nov 14;140(11):4482-4631. doi: 10.1182/blood.6137464324. PMID: 60147320; PMCID: GVJ3377344. All controls show appropriate reactivity. All immunohistochemistry (IHC), in situ hybridization (JONATHON), and histochemical tests were developed by and are performed at the [facility] Clinical Laboratory, Histology and IHC Lab, [address] [place] [address], [place] [address]. All Immunofluorescent (IF) tests were developed by and are performed at the [facility] Clinical Laboratory, Renal Division, [address] [place] [address]. All tests reported here, except for PD-L1, have not been cleared by or approved by the US Food and Drug Administration (FDA). The laboratory is regulated under CLIA as qualified to perform high-complexity testing. The tests are used for clinical purposes. They should not be regarded as investigational or for research. Performed By: #### S URGP #### [facility] (DEFAULT) [address] [place] [address] Pathologic Diagnosis Normal [facility] Comment on above: Result Comment: A. [...] EDT Performed By: #### S URGP #### [facility] (DEFAULT) [address] [place] [address] Professional Interpretation Performed at: [facility] Comment on above: Result Comment: [facility] For Immediate Release [facility]? Yes [address] [place] [address] Performed By: #### S URGP #### [facility] (DEFAULT) [address] [place] [address] Type AND Screenon 12-09-2024 ABO and Rh group Nom (Bld) Blood group O Rh(D) positive Normal [facility] Comment on above: Order Comment: CMV N EG? NNumber of units to transfuse: 1Is pt's Hgb is = to 7.0 mg/dl or Hct </= 21%? YReason for Ordering Blood: ChronicAre the blood/blood products to be transfused? YIs the patient having/had surgery? Ever Jack Performed By: #### B ORESTES COTO ####[facility] [address] [facility] [place], [place], [address] Assessment of wrist artery p atency prior to arterial punctureOrdered By: Claire Mazariegos on 12-08-2024 Arterial patency Wrist artery --pre arterial puncture Positive [facility] Basic Metabolic Profile (BMP )on 12-08-2024 BUN/CRE 11.5 RATIO Normal 10-20 [facility] Comment on above: Performed By: #### L 500.2500, L100.0500 ####[facility] [address] [place], [address] Calcium [Mass/Vol] 10.5 mg/dL Normal 7.6-11.[address] [facility] Comment on above: Performed By: #### L 500.2500, L100.0500 ####[facility] [address] [place], [address] Chloride [Moles/Vol] 98 mmol/L Normal 98-108 [facility] Comment on above: Performed By: #### L 500.2500, L100.0500 ####[facility] [address] [place], [address] CO2 [Moles/Vol] 21.1 mmol/L Normal 21.0-32.0 [facility] Comment on above: Performed By: #### L 500.2500, L100.0500 ####[facility] [address] [place], [address] Creatinine [Mass/Vol] 6.19 mg/dL High 0.70-1.20 [facility] Comment on above: Performed By: #### L 500.2500, L100.0500 ####[facility] [address] [place], [address] ECRCL 9.75 ml/min Invalid Interpretation Code 50-250 [facility] Comment on above: Performed By: #### L 500.2500, L100.0500 ####[facility] [address] [place], [address] GAP 13 Normal 5-15 [facility] Comment on above: Performed By: #### L 500.2500, L100.0500 ####[facility] [address] [place], [address] GFR/1.73 sq M.predicted among non-blacks MDRD (S/P/Bld) [Vol rate/Area] 8 mL/min/{1.73_m2} Low >60 [facility] Comment on above: Result Comment: mL/m in/1.73m2 CKD-EPI Creatinine Equation (2020) Performed By: #### L 500.2500, L100.0500 ####[facility] [address] [place], [address] Glucose [Mass/Vol] 125 mg/dL High 70-[address] [facility] Comment on above: Performed By: #### L 500.2500, L100.0500 ####[facility] [address] [place], [address] Potassium [Moles/Vol] 4.1 mmol/L Normal 3.3-5.1 [facility] Comment on above: Performed By: #### L 500.2500, L100.0500 ####[facility] [address] [place], [address] Sodium [Moles/Vol] 132 mmol/L Low 133-[address] [facility] Comment on above: Performed By: #### L 500.2500, L100.0500 ####[facility] [address] [place], [address] Urea nitrogen [Mass/Vol] 71 mg/dL High 4-19 [facility] Comment on above: Performed By: #### L 500.2500, L100.0500 ####[facility] [address] [place], [address] Bedside Glucoseon 12-08-2024 FINGERSTICK GLU 121 mg/dL High 74-106 [facility] Comment on above: Result Comment: ANA PARKER OF PATIENT CARE PER NURSING PROTOCOL Performed By: #### L 501.080 ####[facility] [address] [place], [address] FINGERSTICK GLU 110 mg/dL High 74-106 [facility] Comment on above: Result Comment: ANA GEMENT OF PATIENT CARE PER NURSING PROTOCOL Performed By: #### L 501.080 ####[facility] [address] [place], [address] FINGERSTICK GLU 96 mg/dL Normal 74-106 [facility] Comment on above: Result Comment: ANA GEMENT OF PATIENT CARE PER NURSING PROTOCOL Performed By: #### L 501.080 ####[facility] [address] [place], [address] FINGERSTICK GLU 124 mg/dL High 74-106 [facility] Comment on above: Result Comment: ANA GEMENT OF PATIENT CARE PER NURSING PROTOCOL Performed By: #### L 501.080 ####[facility] [address] [place], [address] Blood Gases by [facility] 025 RACHAEL TEST Positive Normal [facility] Comment on above: Performed By: #### L 9000.0800 ####[facility] [address] [place], [address] Base excess Calc (Bld) [Moles/Vol] 1 mmol/L Normal -2 to +2 [facility] Comment on above: Performed By: #### L 9000.0800 ####[facility] [address] [place], [address] Blood Gas Type ART Normal [facility] Comment on above: Performed By: #### L 9000.0800 ####[facility] [address] [place], [address] CO2 [Moles/Vol] 25 mmol/L Normal [facility] Comment on above: Performed By: #### L 9000.0800 ####[facility] [address] [place], [address] FI02 9.0 Normal [facility] Comment on above: Performed By: #### L 9000.0800 ####[facility] [address] [place], [address] HCO3 (Bld) [Moles/Vol] 23.6 mmol/L Normal 22-26 [facility] Comment on above: Performed By: #### L 9000.0800 ####[facility] [address] [place], [address] Mode Not entered Normal [facility] Comment on above: Performed By: #### L 9000.0800 ####[facility] [address] [place], [address] O2 Delivery Dev HFNC Normal [facility] Comment on above: Performed By: #### L 9000.0800 ####[facility] [address] [place], [address] pCO2 29.6 mmHg Low 35-45 [facility] Comment on above: Performed By: #### L 9000.0800 ####[facility] [address] [place], [address] pH (Bld) 7.51 [pH] High 7.35-7.45 [facility] Comment on above: Performed By: #### L 9000.0800 ####[facility] [address] [place], [address] PO2 57 mmHG Low 75-100 [facility] Comment on above: Performed By: #### L 9000.0800 ####[facility] [address] [place], [address] SITE R Radial Normal [facility] Comment on above: Performed By: #### L 9000.0800 ####[facility] [address] [place], [address] SO2 92 Low 95-99 [facility] Comment on above: Performed By: #### L 9000.0800 ####[facility] [address] [place], [address] Blood base excess determinat ionOrdered By: Claire Mazariegos on 12-08-2024 Base excess Calc (BldV) [Moles/Vol] 1 mmol/L -2-2 [facility] Blood bicarbonate measuremen tOrdered By: Claire Mazariegos on 12-08-2024 HCO3 (Bld) [Moles/Vol] 23.6 mmol/L 22-26 [facility] Bone Survey Comp(Axial Appen d)on 12-08-2024 Bone Survey Comp(Axial Append) Normal [facility] CBC-Complete Blood Cnt No Di ffon 12-08-2024 Erythrocyte distribution width (RBC) [Ratio] 12.0 % Normal 11.6-14.6 [facility] Comment on above: Performed By: #### L 500.2500, L100.0500 ####[facility] [address] [place], [address] Hematocrit (Bld) [Volume fraction] 20.4 % Low 40-54 [facility] Comment on above: Performed By: #### L 500.2500, L100.0500 ####[facility] [address] [place], [address] Hemoglobin (Bld) [Mass/Vol] 7.2 g/dL Low 13.0-16.5 [facility] Comment on above: Performed By: #### L 500.2500, L100.0500 ####[facility] [address] [place], [address] MCH (RBC) [Entitic mass] 36.2 pg High 27.0-32.0 [facility] Comment on above: Performed By: #### L 500.2500, L100.0500 ####[facility] [address] [place], [address] MCHC (RBC) [Mass/Vol] 35.3 g/dL Normal 32-36 [facility] Comment on above: Performed By: #### L 500.2500, L100.0500 ####[facility] [address] [place], [address] MCV (RBC) [Entitic vol] 102.5 fL High 80-94 [facility] Comment on above: Performed By: #### L 500.2500, L100.0500 ####[facility] [address] [place], [address] Platelet mean volume (Bld) [Entitic vol] 10.0 fL Normal 6.2-12.0 [facility] Comment on above: Performed By: #### L 500.2500, L100.0500 ####[facility] [address] [place], [address] Platelets (Bld) [#/Vol] 110 10*3/uL Low 150-450 [facility] Comment on above: Performed By: #### L 500.2500, L100.0500 ####[facility] [address] [place], [address] RBC (Bld) [#/Vol] 1.99 10*6/uL Low 4.6-6.2 [facility] Comment on above: Performed By: #### L 500.2500, L100.0500 ####[facility] [address] [place], [address] RDW SD 44.5 fl High 35.1-43.9 [facility] Comment on above: Performed By: #### L 500.2500, L100.0500 ####[facility] [address] [place], [address] WBC (Bld) [#/Vol] 5.0 10*3/uL Normal 4.4-11.[address] [facility] Comment on above: Performed By: #### L 500.2500, L100.0500 ####[facility] [address] [place], [place], [address] Chest 1 View (Portable)on Chest 1 View (Portable) Normal [facility] Echo Completeon 12-08-2024 Echo Complete Normal [facility] Electrocardiogram reportOrde red By: Homer Grey on 12-08-2024 EKG study [facility] Work Phone: [phone] EKG study [facility] Work Phone: [phone] OMERO + Protein Elect, Serumon 12-08-2024 Albumin [Mass/Vol] 2.9 g/dL Normal 2.9-4.[address] [facility] Comment on above: Performed By: #### L 501.3620, L501.7300, L3600.4000, L501.5200, L501.9520, L509.1000, L3100.3425, L506.1001, L501.2300 ####[facility] [address] [place], [place], [address] Albumin/Globulin [Mass ratio] 0.6 {ratio} Low 0.7-1.7 [facility] Comment on above: Performed By: #### L 501.3620, L501.7300, L3600.4000, L501.5200, L501.9520, L509.1000, L3100.3425, L506.1001, L501.2300 ####[facility] [address] [place], [address] RDSQG-4-BLVI 0.3 g/dL Normal 0.0-0.4 [facility] Comment on above: Performed By: #### L 501.3620, L501.7300, L3600.4000, L501.5200, L501.9520, L509.1000, L3100.3425, L506.1001, L501.2300 ####[facility] [address] [place], [address] GGGPH-5-EDSM 0.7 g/dL Normal 0.4-1.0 [facility] Comment on above: Performed By: #### L 501.3620, L501.7300, L3600.4000, L501.5200, L501.9520, L509.1000, L3100.3425, L506.1001, L501.2300 ####[facility] [address] [place], [address] BETA GLOBULIN 3.6 g/dL High 0.7-1.3 [facility] Comment on above: Performed By: #### L 501.3620, L501.7300, L3600.4000, L501.5200, L501.9520, L509.1000, L3100.3425, L506.1001, L501.2300 ####[facility] [address] [place], [place], [phone] GAMMA GLOBULIN 0.3 g/dL Low 0.4-1.8 [facility] Comment on above: Performed By: #### L 501.3620, L501.7300, L3600.4000, L501.5200, L501.9520, L509.1000, L3100.3425, L506.1001, L501.2300 ####[facility] [address] [place], [place], [phone] Globulin (S) [Mass/Vol] 4.9 g/dL Abnormal 2.2-3.9 [facility] Comment on above: Performed By: #### L 501.3620, L501.7300, L3600.4000, L501.5200, L501.9520, L509.1000, L3100.3425, L506.1001, L501.2300 ####[facility] [address] [place], [address] OMERO RESULT,S Comment Abnormal . [facility] Comment on above: Result Comment: Immu nofixation shows IgA monoclonal protein with lambdalight chain specificity and monoclonal free lambda lightchains. Performed By: #### L 501.3620, L501.7300, L3600.4000, L501.5200, L501.9520, L509.1000, L3100.3425, L506.1001, L501.2300 ####[facility] [address] [place], [address] IMMUNOGLOB A QN 3265 mg/dL High 61-437 [facility] Comment on above: Result Comment: Resu lts confirmed ondilution. Performed By: #### L 501.3620, L501.7300, L3600.4000, L501.5200, L501.9520, L509.1000, L3100.3425, L506.1001, L501.2300 ####[facility] [address] [place], [address] IMMUNOGLOB G QN 326 mg/dL Low 603-1613 [facility] Comment on above: Performed By: #### L 501.3620, L501.7300, L3600.4000, L501.5200, L501.9520, L509.1000, L3100.3425, L506.1001, L501.2300 ####[facility] [address] [place], [address] IMMUNOGLOB M QN 11 mg/dL Low 15-143 [facility] Comment on above: Result Comment: Resu lt confirmed on concentration. Performed By: #### L 501.3620, L501.7300, L3600.4000, L501.5200, L501.9520, L509.1000, L3100.3425, L506.1001, L501.2300 ####[facility] [address] [place], [address] M-David Comment: Normal Not Observed [facility] Comment on above: Result Comment: MONO CLONAL IGA LAMBDA = 2.8 G/DLMONOCLONAL FREE LAMBDA LIGHT CHAINS = 0.1 G/DL Performed By: #### L 501.3620, L501.7300, L3600.4000, L501.5200, L501.9520, L509.1000, L3100.3425, L506.1001, L501.2300 ####[facility] [address] [place], [address] NOTE: Comment Normal . [facility] Comment on above: Result Comment: Prot ein electrophoresis scan will follow via computer,mail, or improvement engineer delivery. Performed By: #### L 501.3620, L501.7300, L3600.4000, L501.5200, L501.9520, L509.1000, L3100.3425, L506.1001, L501.2300 ####[facility] [address] [facility] [place], [place], [id number] Protein [Mass/Vol] 7.8 g/dL Normal 6.0-8.[address] [facility] Comment on above: Performed By: #### L 501.3620, L501.7300, L3600.4000, L501.5200, L501.9520, L509.1000, L3100.3425, L506.1001, L501.2300 ####[facility] [address] [facility] [place], [place], [id number] Measurement, pHOrdered By: Rubia Mazariegos on 12-08-2024 pH (Unsp spec) 7.51 [pH] High 7.35-7.45 [facility] No Panel InformationOrdered By: Claire Mazariegos on 12-08-2024 ART [facility] R Radial [facility] Not entered [facility] HFNC [facility] Reticulocyte hemoglobin equi valent (RET-He) measurementOrdered By: Adalid King on 12-08-2024 Hemoglobin (Reticulocytes) [Entitic mass] 39.1 pg High 30-35 [facility] Reticulocytes Auto (Bld) [#/ Vol]Ordered By: Adalid King on 12-08-2024 Reticulocytes/100 RBC (Bld) 0.76 % 0.5-1.5 [facility] Total carbon dioxide measure mentOrdered By: Claire Mazariegos on 12-08-2024 CO2 [Moles/Vol] 25 mmol/L [facility] 12 Lead EKGon 2024 12 Lead EKG Normal [facility] ANCAon 2024 Atypical pANCA <1:20 Normal Neg:<1:20 [facility] Comment on above: Result Comment: The atypical pANCA pattern has been observed in asignificant percentage of patients with ulcerative colitis,primary sclerosing cholangitis and autoimmune hepatitis. Performed By: #### L 3130.0010, L3300.1200, L3100.5800, L3100.5700, L3400.4200, L3100.5500 ####[facility] [address] [place], [place], [id number] Cytoplasmic Ab <1:20 Normal Neg:<1:20 [facility] Comment on above: Performed By: #### L 3130.0010, L3300.1200, L3100.5800, L3100.5700, L3400.4200, L3100.5500 ####[facility] [address] [place], [address] Perinuclear Ab. <1:20 Normal Neg:<1:20 [facility] Comment on above: Result Comment: The presence of positive fluorescence exhibiting P-ANCA orC-ANCA patterns alone is not specific for the diagnosis ofWegener's Granulomatosis (WG) or microscopic polyangiitis.Decisions about treatment should not be based solely onANCA IFA results. The International ANCA Group Consensusrecommends follow up testing of positive sera with both NE-3 and MPO-ANCA enzyme immunoassays. As many as 5% serumsamples are positive only by EIA. Ref. AM J Clin Kbhpxl0725;111:507-513. Performed By: #### L 3130.0010, L3300.1200, L3100.5800, L3100.5700, L3400.4200, L3100.5500 ####[facility] [address] [place], [address] Anti-Glomerular Basement Mem bon 2024 ANTI-GLOM BM Ab < 0.2 Normal 0.0-0.9 [facility] Comment on above: Result Comment: Perf ormed at: - [facility] [address] [place], [place] [id number] Director: Fernandez Ceballos PhD, Phone: [phone] at: - [facility] [address] [id number] Director: Colt Rich MD, Phone: [phone] Performed By: #### L 3130.0010, L3300.1200, L3100.5800, L3100.5700, L3400.4200, L3100.5500 ####[facility] [address] [facility] [address] Bedside Glucoseon 2024 FINGERSTICK GLU 133 mg/dL High 74-106 [facility] Comment on above: Result Comment: ANA GEMENT OF PATIENT CARE PER NURSING PROTOCOL Performed By: #### L 501.080 ####[facility] [address] [place], [address] FINGERSTICK GLU 145 mg/dL High 74-106 [facility] Comment on above: Result Comment: ANA GEMENT OF PATIENT CARE PER NURSING PROTOCOL Performed By: #### L 501.080 ####[facility] [address] [place], [address] FINGERSTICK GLU 127 mg/dL High 74-106 [facility] Comment on above: Result Comment: ANA GEMENT OF PATIENT CARE PER NURSING PROTOCOL Performed By: #### L 501.080 ####[facility] [address] [facility] [address] FINGERSTICK GLU 135 mg/dL High 74-106 [facility] Comment on above: Result Comment: ANA GEMENT OF PATIENT CARE PER NURSING PROTOCOL Performed By: #### L 501.080 ####[facility] [address] [place], [address] Bilirubin, totalOrdered By: Josette Garrett on 2024 Bilirubin [Mass/Vol] 0.37 mg/dL 0.00-1.30 [facility] CBC-Complete Blood Cnt No Di ffon 2024 Erythrocyte distribution width (RBC) [Ratio] 11.8 % Normal 11.6-14.6 [facility] Comment on above: Performed By: #### L 500.4050, L100.0500, L501.5200 ####[facility] [address] [place], [address] Hematocrit (Bld) [Volume fraction] 21.6 % Low 40-54 [facility] Comment on above: Performed By: #### L 500.4050, L100.0500, L501.5200 ####[facility] [address] [place], [address] Hemoglobin (Bld) [Mass/Vol] 7.9 g/dL Low 13.0-16.5 [facility] Comment on above: Performed By: #### L 500.4050, L100.0500, L501.5200 ####[facility] [address] [place], [address] MCH (RBC) [Entitic mass] 37.3 pg High 27.0-32.0 [facility] Comment on above: Performed By: #### L 500.4050, L100.0500, L501.5200 ####[facility] [address] [place], [address] MCHC (RBC) [Mass/Vol] 36.6 g/dL High 32-36 [facility] Comment on above: Performed By: #### L 500.4050, L100.0500, L501.5200 ####[facility] [address] [place], [address] MCV (RBC) [Entitic vol] 101.9 fL High 80-94 [facility] Comment on above: Performed By: #### L 500.4050, L100.0500, L501.5200 ####[facility] [address] [place], [id number] Platelet mean volume (Bld) [Entitic vol] 10.1 fL Normal 6.2-12.0 [facility] Comment on above: Performed By: #### L 500.4050, L100.0500, L501.5200 ####[facility] [address] [place], [id number] Platelets (Bld) [#/Vol] 127 10*3/uL Low 150-450 [facility] Comment on above: Performed By: #### L 500.4050, L100.0500, L501.5200 ####[facility] [address] [place], [address] RBC (Bld) [#/Vol] 2.12 10*6/uL Low 4.6-6.2 [facility] Comment on above: Performed By: #### L 500.4050, L100.0500, L501.5200 ####[facility] [address] [place], [address] RDW SD 43.4 fl Normal 35.1-43.9 [facility] Comment on above: Performed By: #### L 500.4050, L100.0500, L501.5200 ####[facility] [address] [place], [address] WBC (Bld) [#/Vol] 7.3 10*3/uL Normal 4.4-11.[address] [facility] Comment on above: Performed By: #### L 500.4050, L100.0500, L501.5200 ####[facility] [address] [place], [id number] Complement C3on 2024 COMP C3 75 mg/dL Low 82-167 [facility] Comment on above: Performed By: #### L 3130.0010, L3300.1200, L3100.5800, L3100.5700, L3400.4200, L3100.5500 ####[facility] [address] [place], [address] Complement C4on 2024 COMPLEMENT, C4 25 mg/dL Normal 12-38 [facility] Comment on above: Performed By: #### L 3130.0010, L3300.1200, L3100.5800, L3100.5700, L3400.4200, L3100.5500 ####[facility] [address] [place], [address] Comprehensive Metabolic Prof ilon 2024 Albumin [Mass/Vol] 2.8 g/dL Low 3.4-4.[address] [facility] Comment on above: Performed By: #### L 500.4050, L100.0500, L501.5200 ####[facility] [address] [place], [address] Albumin/Globulin [Mass ratio] 0.6 {ratio} Low 0.9-2.4 [facility] Comment on above: Performed By: #### L 500.4050, L100.0500, L501.5200 ####[facility] [address] [place], [address] ALK PHOS 78 U/L Normal 40-129 [facility] Comment on above: Performed By: #### L 500.4050, L100.0500, L501.5200 ####[facility] [address] [place], [address] ALT [Catalytic activity/Vol] 13 U/L Normal <=46 [facility] Comment on above: Performed By: #### L 500.4050, L100.0500, L501.5200 ####[facility] [address] [place], [address] AST [Catalytic activity/Vol] 21 U/L Normal <=37 [facility] Comment on above: Performed By: #### L 500.4050, L100.0500, L501.5200 ####[facility] [address] [place], [address] Bilirubin [Mass/Vol] 0.37 mg/dL Normal 0.00-1.30 [facility] Comment on above: Performed By: #### L 500.4050, L100.0500, L501.5200 ####[facility] [address] [place], [address] BUN/CRE 11.5 RATIO Normal 10-20 [facility] Comment on above: Performed By: #### L 500.4050, L100.0500, L501.5200 ####[facility] [address] [place], [address] Calcium [Mass/Vol] 10.9 mg/dL Normal 7.6-11.[address] [facility] Comment on above: Performed By: #### L 500.4050, L100.0500, L501.5200 ####[facility] [address] [place], [address] Chloride [Moles/Vol] 97 mmol/L Low 98-108 [facility] Comment on above: Performed By: #### L 500.4050, L100.0500, L501.5200 ####[facility] [address] [place], [address] CO2 [Moles/Vol] 19.1 mmol/L Low 21.0-32.0 [facility] Comment on above: Performed By: #### L 500.4050, L100.0500, L501.5200 ####[facility] [address] [place], [address] Creatinine [Mass/Vol] 8.81 mg/dL Invalid Interpretation Code 0.70-1.20 [facility] Comment on above: Result Comment: Crit ical Result(s) Called at 0625: by: FLORENCIO VALLE??Results read back by same. Performed By: #### L 500.4050, L100.0500, L501.5200 ####[facility] [address] [place], [id number] ECRCL 6.85 ml/min Invalid Interpretation Code 50-250 [facility] Comment on above: Performed By: #### L 500.4050, L100.0500, L501.5200 ####[facility] [address] [place], [address] GAP 15 Normal 5-15 [facility] Comment on above: Performed By: #### L 500.4050, L100.0500, L501.5200 ####[facility] [address] [place], [address] GFR/1.73 sq M.predicted among non-blacks MDRD (S/P/Bld) [Vol rate/Area] 5 mL/min/{1.73_m2} Low >60 [facility] Comment on above: Result Comment: mL/m in/1.73m2 CKD-EPI Creatinine Equation (2020) Performed By: #### L 500.4050, L100.0500, L501.5200 ####[facility] [address] [place], [address] Globulin (S) [Mass/Vol] 4.9 g/dL High 2.2-4.2 [facility] Comment on above: Performed By: #### L 500.4050, L100.0500, L501.5200 ####[facility] [address] [place], [id number] Glucose [Mass/Vol] 111 mg/dL High 70-[address] [facility] Comment on above: Performed By: #### L 500.4050, L100.0500, L501.5200 ####[facility] [address] [place], [address] Potassium [Moles/Vol] 4.5 mmol/L Normal 3.3-5.1 [facility] Comment on above: Performed By: #### L 500.4050, L100.0500, L501.5200 ####[facility] [address] [place], [address] Sodium [Moles/Vol] 131 mmol/L Low 133-[address] [facility] Comment on above: Performed By: #### L 500.4050, L100.0500, L501.5200 ####[facility] [address] [place], [address] T PROT 7.7 g/dL Normal 5.9-8.4 [facility] Comment on above: Performed By: #### L 500.4050, L100.0500, L501.5200 ####[facility] [address] [place], [address] Urea nitrogen [Mass/Vol] 101 mg/dL Invalid Interpretation Code 06-18 [facility] Comment on above: Result Comment: Crit ical Result(s) Called at 0625: by: FLORENCIO VALLE??Results read back by same. Performed By: #### L 500.4050, L100.0500, L501.5200 ####[facility] [address] [place], [address] [place] Lambda Light Chainson 2024 FR KAPPA LT CHN 23.3 mg/L Abnormal 3.3-19.4 [facility] Comment on above: Performed By: #### L 3130.0010, L3300.1200, L3100.5800, L3100.5700, L3400.4200, L3100.5500 ####[facility] [address] [place], [address] FR LAMBDA LT CH 1177.7 mg/L Abnormal 5.7-26.3 [facility] Comment on above: Performed By: #### L 3130.0010, L3300.1200, L3100.5800, L3100.5700, L3400.4200, L3100.5500 ####[facility] [address] [place], [address] KAPPA/LAMBDA % 0.02 Abnormal 0.26-1.65 [facility] Comment on above: Performed By: #### L 3130.0010, L3300.1200, L3100.5800, L3100.5700, L3400.4200, L3100.5500 ####[facility] [address] [place], [address] Kidney Biopsyon 2024 Kidney Biopsy Normal [facility] L350.1810on 2024 Path [facility] SEE PATHOLOGY REPORT Normal [facility] Comment on above: Order Comment: RESUL TS FAXED TO DR BAH 12/12/24 0824 Jay Méndez. Result Comment: Spec imen sent to [facility] Pathology Department.Report available in EMR. Performed By: #### L 350.1810 ####[facility] [address] [place], [address] L3890.6102on 2024 HEP B Surf Ag Non-Reactive Normal Nonreactive [facility] Comment on above: Order Comment: Reaso n for Exam: outpatient dialysis Result Comment: Reac tive: Presumptive evidence of HBV. Repeatedly reactivesamples must be confirmed using a neutralization test([employer] HBsAg Confirmatory Test)Non-Reactive: HBsAg not detected; does not exclude thepossibility of exposure to HBV Performed By: #### L 3890.6102 ####[facility] [address] [place], [address] Magnesiumon 10-08-2025 Magnesium [Mass/Vol] 3.6 mg/dL High 1.5-2.2 [facility] Comment on above: Performed By: #### L 500.4050, L100.0500, L501.5200 ####[facility] [address] [place], [address] No Panel InformationOrdered By: Josette Garrett on 2024 21 U/L <38 [facility] Phosphoruson 2024 Phosphate [Mass/Vol] 5.0 mg/dL High 2.7-4.5 [facility] Comment on above: Performed By: #### L 501.2300 ####[facility] [address] [place], [address] SURG PATH REQUESTon 12-08-19 Case Report Normal [facility] Comment on above: Result Comment: Surg ical Pathology Report Case: [id number] Authorizing Provider: Anam Bah MD Collected: 2024 12:30 PM Ordering Location[facility] Received: 12/08/2024 08:13 AM [facility] Pathologist: Yomaira Woodward MD Specimen: KIDNEY Performed By: #### S URGP #### [facility] (DEFAULT) [address] [place] [address] Clinical History The patient is an 84-year-old [...] Microalbumin to creatinine ratio is 200. Normal [facility] Comment on above: Performed By: #### S URGP #### [facility] (DEFAULT) [address] [place] [id number] Gross Description Normal [facility] Comment on above: Result Comment: Thelma sheriff from [facility], [place], [place], is a [place] kidney biopsy with two containers labeled with [...] Performed By: #### S URGP #### [facility] (DEFAULT) [address] [place] [id number] Microscopic Description Normal [facility] Comment on above: Result Comment: [facility] T MICROSCOPY Paraffin sections stained with H&E, [...] interstitial staining, 2+ staining within [place] protein [place] light chain: No glomerular staining, 1+ casts Lambda light chain: No glomerular staining, 2-3+ casts (1-2+ brighter than kappa background also) DIRECT IMMUNOFLUORESCENCE performed on the paraffin embedded sections after pronase digestion. IgG: No glomerular staining [place]: No glomerular staining, 1+ staining of casts [...] their performance characteristics were determined, by the [facility], Department of Pathology. 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 Yes [address] [place], [place] [address] Performed By: #### S URGP #### [facility] (DEFAULT) [address] [place] [id number] Serum globulin measurementOr dered By: Josette Garrett on 2024 Globulin (S) [Mass/Vol] 4.9 g/dL High 2.2-4.2 [facility] Serum or plasma alanine saunders otransferase (ALT) measurementOrdered By: Josette Garrett on 2024 ALT [Catalytic activity/Vol] 13 U/L <47 [facility] Serum or plasma albumin darell urement (mass/volume)Ordered By: Josette Garrett on 2024 Albumin [Mass/Vol] 2.8 g/dL Low 3.4-4.[address] [facility] Serum or plasma albumin/glob ulin mass ratioOrdered By: Josette Garrett on 2024 Albumin/Globulin [Mass ratio] 0.6 {ratio} Low 0.9-2.4 [facility] Serum or plasma alkaline chelle sphatase measurementOrdered By: Josette Garrett on 2024 ALP [Catalytic activity/Vol] 78 U/L 40-129 [facility] Total proteinOrdered By: Zenaida Garrett on 2024 Protein [Mass/Vol] 7.7 g/dL 5.9-8.[address] [facility] 12 Lead EKGon 12-06-2024 12 Lead EKG Normal [facility] 12 Lead EKG Normal [facility] Anti-dsDNA Abon 12-06-2024 ANTI-DNA (DS)AB <1 Normal 0-9 [facility] Comment on above: Result Comment: Nega tive <5 Equivocal 5 - 9 Positive >9Performed at: - [facility] [address] [id number] Director: Fernandez Ceballos PhD, Phone: [phone] Performed By: #### L 3130.0010, L3300.1200, L3100.5800, L3100.5700, L3400.4200, L3100.5500 ####[facility] [address] [place], [address] Basic Metabolic Profile (BMP )on 12-06-2024 BUN/CRE 12.2 RATIO Normal 10-20 [facility] Comment on above: Performed By: #### L 100.0500, L500.2500 ####[facility] [address] [place], [address] Calcium [Mass/Vol] 10.9 mg/dL Normal 7.6-11.[address] [facility] Comment on above: Performed By: #### L 100.0500, L500.2500 ####[facility] [address] [place], [address] Chloride [Moles/Vol] 95 mmol/L Low 98-108 [facility] Comment on above: Performed By: #### L 100.0500, L500.2500 ####[facility] [address] [place], [address] CO2 [Moles/Vol] 20.0 mmol/L Low 21.0-32.0 [facility] Comment on above: Performed By: #### L 100.0500, L500.2500 ####[facility] [address] [place], [address] Creatinine [Mass/Vol] 8.50 mg/dL Invalid Interpretation Code 0.70-1.20 [facility] Comment on above: Result Comment: Crit ical Result(s) Called at 0634: by: SUKHDEEP VALLE. ??Results read back by same. Performed By: #### L 100.0500, L500.2500 ####[facility] [address] [place], [address] ECRCL 7.23 ml/min Invalid Interpretation Code 50-250 [facility] Comment on above: Performed By: #### L 100.0500, L500.2500 ####[facility] [address] [place], [address] GAP 14 Normal 5-15 [facility] Comment on above: Performed By: #### L 100.0500, L500.2500 ####[facility] [address] [place], [address] GFR/1.73 sq M.predicted among non-blacks MDRD (S/P/Bld) [Vol rate/Area] 6 mL/min/{1.73_m2} Low >60 [facility] Comment on above: Result Comment: mL/m in/1.73m2 CKD-EPI Creatinine Equation (2020) Performed By: #### L 100.0500, L500.2500 ####[facility] [address] [place], [address] Glucose [Mass/Vol] 132 mg/dL High 70-[address] [facility] Comment on above: Performed By: #### L 100.0500, L500.2500 ####[facility] [address] [place], [address] Potassium [Moles/Vol] 4.2 mmol/L Normal 3.3-5.1 [facility] Comment on above: Performed By: #### L 100.0500, L500.2500 ####[facility] [address] [place], [address] Sodium [Moles/Vol] 129 mmol/L Low 133-[address] [facility] Comment on above: Performed By: #### L 100.0500, L500.2500 ####[facility] [address] [place], [address] Urea nitrogen [Mass/Vol] 104 mg/dL Invalid Interpretation Code 4-19 [facility] Comment on above: Result Comment: Crit ical Result(s) Called at 0634: by: SUKHDEEP VALLE. ??Results read back by same. Performed By: #### L 100.0500, L500.2500 ####[facility] [address] [place], [address] Bedside Glucoseon 12-06-2024 FINGERSTICK GLU 134 mg/dL High 74-106 [facility] Comment on above: Result Comment: ANA GEMENT OF PATIENT CARE PER NURSING PROTOCOL Performed By: #### L 501.080 ####[facility] [address] [place], [address] FINGERSTICK GLU 87 mg/dL Normal 74-106 [facility] Comment on above: Result Comment: ANA GEMENT OF PATIENT CARE PER NURSING PROTOCOL Performed By: #### L 501.080 ####[facility] [address] [place], [address] FINGERSTICK GLU 123 mg/dL High 74-106 [facility] Comment on above: Result Comment: ANA GEMENT OF PATIENT CARE PER NURSING PROTOCOL Performed By: #### L 501.080 ####[facility] [address] [place], [address] CBC W/Diff, Automatedon 10-0 Absolute Lymph 0.78 X10 3/uL Low 0.83-4.51 [facility] Comment on above: Order Comment: Comme nts: tunneled dialysis catheter Performed By: #### L 501.9985, L100.0100 ####[facility] [address] [place], [address] Absolute Neut 4.5 X10 3/uL Normal 2.0-7.7 [facility] Comment on above: Order Comment: Comme nts: tunneled dialysis catheter Performed By: #### L 501.9985, L100.0100 ####[facility] [address] [place], [address] Basophils/100 WBC (Bld) 0.0 % Normal 0-1 [facility] Comment on above: Order Comment: Comme nts: tunneled dialysis catheter Performed By: #### L 501.9985, L100.0100 ####[facility] [address] [place], [address] Eosinophils/100 WBC (Bld) 1.2 % Normal 0-5 [facility] Comment on above: Order Comment: Comme nts: tunneled dialysis catheter Performed By: #### L 501.9985, L100.0100 ####[facility] [address] [place], [address] Erythrocyte distribution width (RBC) [Ratio] 11.4 % Low 11.6-14.6 [facility] Comment on above: Order Comment: Comme nts: tunneled dialysis catheter Performed By: #### L 501.9985, L100.0100 ####[facility] [address] [place], [address] Hematocrit (Bld) [Volume fraction] 21.7 % Low 40-54 [facility] Comment on above: Order Comment: Comme nts: tunneled dialysis catheter Performed By: #### L 501.9985, L100.0100 ####[facility] [address] [place], [address] Hemoglobin (Bld) [Mass/Vol] 7.7 g/dL Low 13.0-16.5 [facility] Comment on above: Order Comment: Comme nts: tunneled dialysis catheter Performed By: #### L 501.9985, L100.0100 ####[facility] [address] [place], [address] IG% 0.500 Normal 0.0-0.9 [facility] Comment on above: Order Comment: Comme nts: tunneled dialysis catheter Result Comment: IG% - Immature Granulocytes (promyelocytes, myelocytes andmetamyelocytes) > 1% indicates that a LEFT SHIFT is Present. Performed By: #### L 501.9985, L100.0100 ####[facility] [address] [place], [address] Lymphocytes/100 WBC (Bld) 13.2 % Low 19-41 [facility] Comment on above: Order Comment: Comme nts: tunneled dialysis catheter Performed By: #### L 501.9985, L100.0100 ####[facility] [address] [place], [address] MCH (RBC) [Entitic mass] 35.8 pg High 27.0-32.0 [facility] Comment on above: Order Comment: Comme nts: tunneled dialysis catheter Performed By: #### L 501.9985, L100.0100 ####[facility] [address] [place], [address] MCHC (RBC) [Mass/Vol] 35.5 g/dL Normal 32-36 [facility] Comment on above: Order Comment: Comme nts: tunneled dialysis catheter Performed By: #### L 501.9985, L100.0100 ####[facility] [address] [place], [address] MCV (RBC) [Entitic vol] 100.9 fL High 80-94 [facility] Comment on above: Order Comment: Comme nts: tunneled dialysis catheter Performed By: #### L 501.9985, L100.0100 ####[facility] [address] [place], [address] Monocytes/100 WBC (Bld) 9.1 % Normal 0-10 [facility] Comment on above: Order Comment: Comme nts: tunneled dialysis catheter Performed By: #### L 501.9985, L100.0100 ####[facility] [address] [place], [address] Neutrophils/100 WBC (Bld) 76.0 % High 47-70 [facility] Comment on above: Order Comment: Comme nts: tunneled dialysis catheter Performed By: #### L 501.9985, L100.0100 ####[facility] [address] [place], [address] Nucleated RBC (Bld) [#/Vol] 0 10*3/uL Normal 0-5 [facility] Comment on above: Order Comment: Comme nts: tunneled dialysis catheter Performed By: #### L 501.9985, L100.0100 ####[facility] [address] [place], [address] Platelet mean volume (Bld) [Entitic vol] 10.2 fL Normal 6.2-12.0 [facility] Comment on above: Order Comment: Comme nts: tunneled dialysis catheter Performed By: #### L 501.9985, L100.0100 ####[facility] [address] [place], [address] Platelets (Bld) [#/Vol] 134 10*3/uL Low 150-450 [facility] Comment on above: Order Comment: Comme nts: tunneled dialysis catheter Performed By: #### L 501.9985, L100.0100 ####[facility] [address] [place], [address] RBC (Bld) [#/Vol] 2.15 10*6/uL Low 4.6-6.2 [facility] Comment on above: Order Comment: Comme nts: tunneled dialysis catheter Performed By: #### L 501.9985, L100.0100 ####[facility] [address] [place], [address] RDW SD 42.2 fl Normal 35.1-43.9 [facility] Comment on above: Order Comment: Comme nts: tunneled dialysis catheter Performed By: #### L 501.9985, L100.0100 ####[facility] [address] [place], [address] WBC (Bld) [#/Vol] 5.9 10*3/uL Normal 4.4-11.[address] [facility] Comment on above: Order Comment: Comme nts: tunneled dialysis catheter Performed By: #### L 501.9985, L100.0100 ####[facility] [address] [place], [address] CBC-Complete Blood Cnt No Di ffon 12-06-2024 HCT Normal 40-54 [facility] Comment on above: Result Comment: OVER LAPPING ORDER-CBCD ALSO ORDERED Performed By: #### L 100.0500, L500.2500 ####[facility] [address] [place], [address] HGB Normal 13.0-16.5 [facility] Comment on above: Result Comment: OVER LAPPING ORDER-CBCD ALSO ORDERED Performed By: #### L 100.0500, L500.2500 ####[facility] [address] [place], [address] MCH Normal 27.0-32.0 [facility] Comment on above: Result Comment: OVER LAPPING ORDER-CBCD ALSO ORDERED Performed By: #### L 100.0500, L500.2500 ####[facility] [address] [place], [address] MCHC Normal 32-36 [facility] Comment on above: Result Comment: OVER LAPPING ORDER-CBCD ALSO ORDERED Performed By: #### L 100.0500, L500.2500 ####[facility] [address] [place], [address] MCV Normal 80-94 [facility] Comment on above: Result Comment: OVER LAPPING ORDER-CBCD ALSO ORDERED Performed By: #### L 100.0500, L500.2500 ####[facility] [address] [place], [address] PLT Normal 150-450 [facility] Comment on above: Result Comment: OVER LAPPING ORDER-CBCD ALSO ORDERED Performed By: #### L 100.0500, L500.2500 ####[facility] [address] [place], [address] RBC Normal 4.6-6.2 [facility] Comment on above: Result Comment: OVER LAPPING ORDER-CBCD ALSO ORDERED Performed By: #### L 100.0500, L500.2500 ####[facility] [address] [place], [address] RDW CV Normal 11.6-14.6 [facility] Comment on above: Result Comment: OVER LAPPING ORDER-CBCD ALSO ORDERED Performed By: #### L 100.0500, L500.2500 ####[facility] [address] [place], [address] RDW SD Normal 35.1-43.9 [facility] Comment on above: Result Comment: OVER LAPPING ORDER-CBCD ALSO ORDERED Performed By: #### L 100.0500, L500.2500 ####[facility] [address] [place], [address] WBC Normal 4.4-11.0 [facility] Comment on above: Result Comment: OVER LAPPING ORDER-CBCD ALSO ORDERED Performed By: #### L 100.0500, L500.2500 ####[facility] [address] [place], [address] CXR for Line Placementon CXR for Line Placement Normal [facility] Electrocardiogram reportOrde red By: Homer Grey on 12-06-2024 EKG study [facility] Work Phone: Hemoglobin A1con 12-06-2024 HbA1c (Bld) [Mass fraction] 6.4 % High <=5.6 [facility] Comment on above: Order Comment: Comme nts: tunneld dialysis catheter Result Comment: Norm al < 5.7 % Prediabetic 5.7 - 6.4 % Diabetic >or= 6.5 % Please note range changes. Performed By: #### L 501.9985, L100.0100 ####[facility] [address] [place], [address] Hemoglobin A1c percentageOrd ered By: Chris Machado on 12-06-2024 HbA1c (Bld) [Mass fraction] 6.4 % High <5.7 [facility] MR/POSTOP.ANEon 12-06-2024 MR/POSTOP.ANE Normal [facility] MR/ZHTDEZDU6yn 12-06-2024 MR/POSTOPAN2 Normal [facility] Operative Reporton Operative Report Normal [facility] Partial Thromboplast Timeon 12-06-2024 aPTT Coag (Bld) [Time] 27.2 s Normal 24.1-36.2 [facility] Comment on above: Order Comment: PT WA S IN SURGERY, SENT TUBES TO AC. LMARTELL Performed By: #### L 300.3900, L300.4310 ####[facility] [address] [place], [address] Prothrombin Time w/INRon INR Coag (PPP) [Relative time] 1.1 {INR} Normal [facility] Comment on above: Order Comment: PT WA S IN SURGERY, SENT TUBES TO AC. LMARTELL Performed By: #### L 300.3900, L300.4310 ####[facility] [address] [place], [address] PT Coag (PPP) [Time] 14.8 s Normal 11.7-14.9 [facility] Comment on above: Order Comment: PT WA S IN SURGERY, SENT TUBES TO AC. LMARTELL Performed By: #### L 300.3900, L300.4310 ####[facility] [address] [place], [address] Anion gap in Serum or Plasma Ordered By: Claire Mazariegos on 12-05-2024 Anion gap [Moles/Vol] 14 mmol/L 5-15 [facility] BUN/creatinine ratioOrdered By: Claire Mazariegos on 12-05-2024 Urea nitrogen/Creatinine [Mass ratio] 12.2 mg/mg 12-19 [facility] Basic Metabolic Profile (BMP )on 12-05-2024 BUN/CRE 12.2 RATIO Normal 12-19 [facility] Comment on above: Performed By: #### L 100.0500, L500.2500, L503.6550, L503.0106, L503.6030 ####[facility] [address] [place], [address] Calcium [Mass/Vol] 11.5 mg/dL High 7.6-11.[address] [facility] Comment on above: Performed By: #### L 100.0500, L500.2500, L503.6550, L503.0106, L503.6030 ####[facility] [address] [place], [address] Chloride [Moles/Vol] 95 mmol/L Low 98-108 [facility] Comment on above: Performed By: #### L 100.0500, L500.2500, L503.6550, L503.0106, L503.6030 ####[facility] [address] [place], [address] CO2 [Moles/Vol] 19.1 mmol/L Low 21.0-32.0 [facility] Comment on above: Performed By: #### L 100.0500, L500.2500, L503.6550, L503.0106, L503.6030 ####[facility] [address] [place], [address] Creatinine [Mass/Vol] 8.79 mg/dL Invalid Interpretation Code 0.70-1.20 [facility] Comment on above: Result Comment: Crit ical Result(s) Called at: by:??Results read back bysame. Performed By: #### L 100.0500, L500.2500, L503.6550, L503.0106, L503.6030 ####[facility] [address] [place], [address] ECRCL 6.93 ml/min Invalid Interpretation Code 50-250 [facility] Comment on above: Performed By: #### L 100.0500, L500.2500, L503.6550, L503.0106, L503.6030 ####[facility] [address] [place], [address] GAP 14 Normal 5-15 [facility] Comment on above: Performed By: #### L 100.0500, L500.2500, L503.6550, L503.0106, L503.6030 ####[facility] [address] [place], [address] GFR/1.73 sq M.predicted among non-blacks MDRD (S/P/Bld) [Vol rate/Area] 6 mL/min/{1.73_m2} Low >60 [facility] Comment on above: Result Comment: mL/m in/1.73m2 CKD-EPI Creatinine Equation (2020) Performed By: #### L 100.0500, L500.2500, L503.6550, L503.0106, L503.6030 ####[facility] [address] [place], [address] Glucose [Mass/Vol] 128 mg/dL High 70-[address] [facility] Comment on above: Performed By: #### L 100.0500, L500.2500, L503.6550, L503.0106, L503.6030 ####[facility] [address] [place], [address] Potassium [Moles/Vol] 4.1 mmol/L Normal 3.3-5.1 [facility] Comment on above: Performed By: #### L 100.0500, L500.2500, L503.6550, L503.0106, L503.6030 ####[facility] [address] [place], [address] Sodium [Moles/Vol] 128 mmol/L Low 133-[address] [facility] Comment on above: Performed By: #### L 100.0500, L500.2500, L503.6550, L503.0106, L503.6030 ####[facility] [address] [place], [address] Urea nitrogen [Mass/Vol] 107 mg/dL Invalid Interpretation Code 06-18 [facility] Comment on above: Result Comment: Crit ical Result(s) Called at: 0630 by:??ELIZABETH TOLLIVEROLSOTO Results read back by same. Performed By: #### L 100.0500, L500.2500, L503.6550, L503.0106, L503.6030 ####[facility] [address] [place], [address] Bedside Glucoseon 12-05-2024 FINGERSTICK GLU 141 mg/dL High 74-106 [facility] Comment on above: Result Comment: ANA GEMENT OF PATIENT CARE PER NURSING PROTOCOL Performed By: #### L 501.080 ####[facility] [address] [place], [address] FINGERSTICK GLU 211 mg/dL High 74-106 [facility] Comment on above: Result Comment: ANA GEMENT OF PATIENT CARE PER NURSING PROTOCOL Performed By: #### L 501.080 ####[facility] [address] [place], [address] FINGERSTICK GLU 164 mg/dL High 74-106 [facility] Comment on above: Result Comment: ANA GEMENT OF PATIENT CARE PER NURSING PROTOCOL Performed By: #### L 501.080 ####[facility] [address] [place], [address] FINGERSTICK GLU 118 mg/dL High 74-106 [facility] Comment on above: Result Comment: ANA PARKER OF PATIENT CARE PER NURSING PROTOCOL Performed By: #### L 501.080 ####[facility] [address] [place], [address] CBC-Complete Blood Cnt No Di ffon 12-05-2024 Erythrocyte distribution width (RBC) [Ratio] 11.6 % Normal 11.6-14.6 [facility] Comment on above: Performed By: #### L 100.0500, L500.2500, L503.6550, L503.0106, L503.6030 ####[facility] [address] [place], [address] Hematocrit (Bld) [Volume fraction] 20.6 % Low 40-54 [facility] Comment on above: Performed By: #### L 100.0500, L500.2500, L503.6550, L503.0106, L503.6030 ####[facility] [address] [place], [address] Hemoglobin (Bld) [Mass/Vol] 7.3 g/dL Low 13.0-16.5 [facility] Comment on above: Performed By: #### L 100.0500, L500.2500, L503.6550, L503.0106, L503.6030 ####[facility] [address] [place], [address] MCH (RBC) [Entitic mass] 36.0 pg High 27.0-32.0 [facility] Comment on above: Performed By: #### L 100.0500, L500.2500, L503.6550, L503.0106, L503.6030 ####[facility] [address] [place], [address] MCHC (RBC) [Mass/Vol] 35.4 g/dL Normal 32-36 [facility] Comment on above: Performed By: #### L 100.0500, L500.2500, L503.6550, L503.0106, L503.6030 ####[facility] [address] [place], [address] MCV (RBC) [Entitic vol] 101.5 fL High 80-94 [facility] Comment on above: Performed By: #### L 100.0500, L500.2500, L503.6550, L503.0106, L503.6030 ####[facility] [address] [place], [address] Platelet mean volume (Bld) [Entitic vol] 10.3 fL Normal 6.2-12.0 [facility] Comment on above: Performed By: #### L 100.0500, L500.2500, L503.6550, L503.0106, L503.6030 ####[facility] [address] [place], [address] Platelets (Bld) [#/Vol] 122 10*3/uL Low 150-450 [facility] Comment on above: Performed By: #### L 100.0500, L500.2500, L503.6550, L503.0106, L503.6030 ####[facility] [address] [place], [address] RBC (Bld) [#/Vol] 2.03 10*6/uL Low 4.6-6.2 [facility] Comment on above: Performed By: #### L 100.0500, L500.2500, L503.6550, L503.0106, L503.6030 ####[facility] [address] [place], [address] RDW SD 42.8 fl Normal 35.1-43.9 [facility] Comment on above: Performed By: #### L 100.0500, L500.2500, L503.6550, L503.0106, L503.6030 ####[facility] [address] [place], [address] WBC (Bld) [#/Vol] 5.3 10*3/uL Normal 4.4-11.[address] [facility] Comment on above: Performed By: #### L 100.0500, L500.2500, L503.6550, L503.0106, L503.6030 ####[facility] [address] [place], [address] Carbon dioxide, total [Moles /volume] in Central venous bloodOrdered By: Claire Mazariegos on 12-05-2024 CO2 [Moles/Vol] 19.1 mmol/L Low 21.0-32.0 [facility] Chloride assayOrdered By: Mariaa Mazariegos on 12-05-2024 Chloride [Moles/Vol] 95 mmol/L Low 98-108 [facility] Consultation - Surgicalon Consultation - Surgical Normal [facility] Erythrocyte distribution wid th ratioOrdered By: Claire Mazariegos on 12-05-2024 Erythrocyte distribution width (RBC) [Ratio] 11.6 % 11.6-14.6 [facility] Erythrocyte distribution wid th standard deviationOrdered By: Claire Mazariegos on 12-05-2024 Erythrocyte distribution width (RBC) [Ratio] 42.8 fl 35.1-43.9 [facility] Ferritinon 12-05-2024 Ferritin [Mass/Vol] 453 ng/mL High 37-417 [facility] Comment on above: Performed By: #### L 100.0500, L500.2500, L503.6550, L503.0106, L503.6030 ####[facility] [address] [place], [address] Folate [Mass/volume] in Seru m or PlasmaOrdered By: Claire Mazariegos on 12-05-2024 Folate [Mass/Vol] 6.03 ng/mL 4.60-34.80 [facility] Folates,Serum (Folic Acid)on 12-05-2024 FOLATES,SERUM 6.03 ng/mL Normal 4.60-34.80 [facility] Comment on above: Performed By: #### L 506.0200 ####[facility] [address] [place], [address] Glomerular filtration rate ( GFR) estimation/1.73 sq m using serum, plasma, or whole bOrdered By: Claire Mazariegos on 12-05-2024 GFR/1.73 sq M.predicted among non-blacks MDRD (S/P/Bld) [Vol rate/Area] 6 mL/min/{1.73_m2} Low >60 [facility] Comment on above: mL/min/1.73m2 CKD-EP I Creatinine Equation (2020) Glucose measurement at [facility] deOrdered By: Claire Mazariegos on 12-05-2024 Glucose [Mass/Vol] 118 mg/dL High 74-[address] [facility] Comment on above: MANAGEMENT OF PATIEN T CARE PER NURSING PROTOCOL Hematocrit Auto (Bld) [Volum e fraction]Ordered By: Claire Mazariegos on 12-05-2024 Hematocrit (Bld) [Volume fraction] 20.6 % Low 40-54 [facility] Hemoglobin measurementOrdere d By: Claire Mazariegos on 12-05-2024 Hemoglobin (Bld) [Mass/Vol] 7.3 g/dL Low 13.0-16.5 [facility] Iron measurement (mass/mass) Ordered By: Claire Mazariegos on 12-05-2024 Iron (Unsp spec) [Mass/Mass] 84 ug/dL 65-175 [facility] Iron+Iron Binding Capacityon 12-05-2024 TIBC 188 ug/dL Low 250-450 [facility] Comment on above: Performed By: #### L 100.0500, L500.2500, L503.6550, L503.0106, L503.6030 ####[facility] [address] [place], [address] [place] Lambda Light Chainson 12-05-2024 FR KAPPA LT CHN Normal [facility] Comment on above: Result Comment: MOVE D TO DIFFERENT REQ- SEE 1006:R4 Performed By: #### L 3130.0010 ####[facility] [address] [place], [address] FR LAMBDA LT CH Normal [facility] Comment on above: Result Comment: MOVE D TO DIFFERENT REQ- SEE 1006:R4 Performed By: #### L 3130.0010 ####[facility] [address] [place], [address] KAPPA/LAMBDA % Normal [facility] Comment on above: Result Comment: MOVE D TO DIFFERENT REQ- SEE 1006:R4 Performed By: #### L 3130.0010 ####[facility] [address] [place], [address] Kidney and Bladderon 025 Kidney and Bladder Normal [facility] Laboratory - Microbiology an d Antimicrobial susceptibilityOrdered By: Alyssia Bah on 12-05-2024 HBV surface Ag Ql (S) Non-Reactive Nonreactive [facility] MCV (mean corpuscular volume ) determinationOrdered By: Claire Mazariegos on 12-05-2024 MCV (RBC) [Entitic vol] 101.5 fL High 80-94 [facility] Mean corpuscular hemoglobin (MCH) determinationOrdered By: Claire Mazariegos on 12-05-2024 MCH (RBC) [Entitic mass] 36.0 pg High 27.0-32.0 [facility] Mean corpuscular hemoglobin concentration (MCHC) determinationOrdered By: Claire Mazariegos on 12-05-2024 MCHC (RBC) [Mass/Vol] 35.4 g/dL 32-36 [facility] Mean platelet volume determi nationOrdered By: Claire Mazariegos on 12-05-2024 Platelet mean volume (Bld) [Entitic vol] 10.3 fL 6.2-12.0 [facility] No Panel InformationOrdered By: Claire Mazariegos on 12-05-2024 Unsaturated Iron Binding Capacity 104 ug/dL Low 228-428 [facility] 104 ug/dL Low 228-428 [facility] Platelet countOrdered By: Mariaa Mazariegos on 12-05-2024 Platelets (Bld) [#/Vol] 122 10*3/uL Low 150-450 [facility] Potassium measurement (mass/ volume)Ordered By: Claire Mazariegos on 12-05-2024 Potassium (Unsp spec) [Mass/Vol] 4.1 mmol/L 3.3-5.1 [facility] RBC Auto (Bld) [#/Vol]Ordere d By: Claire Mazariegos on 12-05-2024 RBC (Bld) [#/Vol] 2.03 10*6/uL Low 4.6-6.2 [facility] Serum DNA double strand anti body assay (units/volume)Ordered By: Alyssia Bah on 12-05-2024 DNA double strand Ab Qn (S) [IU]/mL 0-9 [facility] Serum classic neutrophil cyt oplasmic antibody assay (units/volume)Ordered By: Alyssia Bah on 12-05-2024 Neutrophil cytoplasmic Ab.classic Qn (S) <1:20 titer Neg:<1:20 [facility] Serum creatinine measurement (mass/volume)Ordered By: Claire Mazariegos on 12-05-2024 Creatinine [Mass/Vol] 8.79 mg/dL Critically high 0.70-1.20 [facility] Comment on above: Critical Result(s) C alled at: by: Results read back by same. Serum glomerular basement me mbrane antibody assay (units/volume)Ordered By: Alyssia Bah on 12-05-2024 Glomerular basement membrane Ab Qn (S) < 0.2 units 0.0-0.9 [facility] Serum glucose measurement (m ass/volume)Ordered By: Claire Mazariegos on 12-05-2024 Glucose [Mass/Vol] 128 mg/dL High 70-[address] [facility] Serum immunoglobulin kappa l ight chains/immunoglobulin lambda light chains mass ratioOrdered By: Alyssia Bah on 12-05-2024 Immunoglobulin light chains.kappa/Immunoglob ulin light chains.lambda (S) [Mass ratio] 0.02 Low 0.26-1.65 [facility] Serum or plasma calcium darell urement (mass/volume)Ordered By: Claire Mazariegos on 12-05-2024 Calcium [Mass/Vol] 11.5 mg/dL High 7.6-11.[address] [facility] Serum or plasma complement C 4 measurement (mass/volume)Ordered By: Alyssia Bah on 12-05-2024 Complement C4 [Mass/Vol] 25 mg/dL 12-38 [facility] Serum or plasma ferritin porsha surement (mass/volume)Ordered By: Claire Mazariegos on 12-05-2024 Ferritin [Mass/Vol] 453 ng/mL High 37-417 [facility] Serum or plasma immunoglobul in kappa light chains measurement (mass/volume)Ordered By: Alyssia Bah on 12-05-2024 Immunoglobulin light chains.kappa [Mass/Vol] 23.3 mg/L High 3.3-19.4 [facility] Serum or plasma iron saturat ion measurement (mass fraction)Ordered By: Claire Mazariegos on 12-05-2024 Iron saturation [Mass fraction] 44.7 % 9-55 [facility] Comment on above: Previous reported re sult: 44.6 %Edited by: LETY on 12/05/24:31 AMENDED REPORT 12/05/24630 IRON SATURATION previously reported as: 44.6 % Serum or plasma urea nitroge n measurement (mass/volume)Ordered By: Claire Mazariegos on 12-05-2024 Urea nitrogen [Mass/Vol] 107 mg/dL Critically high 4-19 [facility] Comment on above: Critical Result(s) C alled at: 0630 by: ELIZABETH SALDAÑA TO TAMAR HUMPHREY Results read back by same. Serum perinuclear neutrophil cytoplasmic antibody titer by immunofluorescenceOrdered By: Alyssia Bah on 12-05-2024 Neutrophil cytoplasmic Ab.perinuclear IF (S) [Titer] <1:20 titer Neg:<1:20 [facility] Sodium levelOrdered By: Mark Mazariegos on 12-05-2024 Sodium [Moles/Vol] 128 mmol/L Low 133-[address] [facility] Vitamin B12on 12-05-2024 Cobalamin (Vitamin B12) [Mass/Vol] 456 pg/mL Normal 180-914 [facility] Comment on above: Performed By: #### L 100.0500, L500.2500, L503.6550, L503.0106, L503.6030 ####[facility] [address] [place], [address] Vitamin B12 ser/plasOrdered By: Claire Mazariegos on 12-05-2024 Cobalamin (Vitamin B12) [Mass/Vol] 456 pg/mL 180-914 [facility] White blood cell (WBC) count Ordered By: Claire Mazariegos on 12-05-2024 WBC (Bld) [#/Vol] 5.3 10*3/uL 4.4-11.[address] [facility] Absolute lymphocyte countOrd ered By: Claire Mazariegos on 12-04-2024 Lymphocytes Auto (Unsp spec) [#/Vol] 0.77 10*3/uL Low 0.83-4.51 [facility] Absolute neutrophil countOrd ered By: Claire Mazariegos on 12-04-2024 Neutrophils (Bld) [#/Vol] 4.9 10*3/uL 2.0-7.7 [facility] Automated lymphocyte count a s percentage of total leukocytesOrdered By: Claire Mazariegos on 12-04-2024 Lymphocytes/100 WBC Auto (Unsp spec) 12.1 % Low 19-41 [facility] Basic Metabolic Profile (BMP )on 12-04-2024 BUN Normal 4-19 [facility] Comment on above: Result Comment: Orquidea christyed via OM: Ordered Performed By: #### L 500.2500 ####[facility] [address] [place], [address] BUN/CRE Normal 10-20 [facility] Comment on above: Result Comment: Orquidea christyed via OM: Ordered Performed By: #### L 500.2500 ####[facility] [address] [place], [address] Calcium Normal 7.6-11.0 [facility] Comment on above: Result Comment: Orquidea christyed via OM: Ordered Performed By: #### L 500.2500 ####[facility] [address] [place], [address] CL Normal 98-108 [facility] Comment on above: Result Comment: Orquidea christyed via OM: Ordered Performed By: #### L 500.2500 ####[facility] [address] [place], [address] CO2 Normal 21.0-32.0 [facility] Comment on above: Result Comment: Canc elled via OM: MD Ordered Performed By: #### L 500.2500 ####[facility] [address] [place], [address] CREAT,SERUM Normal 0.70-1.20 [facility] Comment on above: Result Comment: Canc elled via OM: MD Ordered Performed By: #### L 500.2500 ####[facility] [address] [place], [address] eGFR Normal >60 [facility] Comment on above: Result Comment: Canc elled via OM: MD Ordered Performed By: #### L 500.2500 ####[facility] [address] [place], [address] GAP Normal 5-15 [facility] Comment on above: Result Comment: Canc elled via OM: MD Ordered Performed By: #### L 500.2500 ####[facility] [address] [place], [address] GLU Normal 70-99 [facility] Comment on above: Result Comment: Canc elled via OM: MD Ordered Performed By: #### L 500.2500 ####[facility] [address] [place], [address] Potassium Normal 3.3-5.1 [facility] Comment on above: Result Comment: Canc elled via OM: MD Ordered Performed By: #### L 500.2500 ####[facility] [address] [place], [address] Basic Metabolic Profile (BMP) Normal 133-145 [facility] Comment on above: Result Comment: Canc elled via OM: MD Ordered Performed By: #### L 500.2500 ####[facility] [address] [place], [address] BUN Normal 4-19 [facility] Comment on above: Result Comment: DUPL ICATE ORDER Performed By: #### L 100.0100, L500.2500 ####[facility] [address] [place], [address] BUN/CRE Normal 10-20 [facility] Comment on above: Result Comment: DUPL ICATE ORDER Performed By: #### L 100.0100, L500.2500 ####[facility] [address] [place], [address] Calcium Normal 7.6-11.0 [facility] Comment on above: Result Comment: DUPL ICATE ORDER Performed By: #### L 100.0100, L500.2500 ####[facility] [address] [place], [address] CL Normal 98-108 [facility] Comment on above: Result Comment: DUPL ICATE ORDER Performed By: #### L 100.0100, L500.2500 ####[facility] [address] [place], [address] CO2 Normal 21.0-32.0 [facility] Comment on above: Result Comment: DUPL ICATE ORDER Performed By: #### L 100.0100, L500.2500 ####[facility] [address] [place], [address] CREAT,SERUM Normal 0.70-1.20 [facility] Comment on above: Result Comment: DUPL ICATE ORDER Performed By: #### L 100.0100, L500.2500 ####[facility] [address] [place], [address] eGFR Normal >60 [facility] Comment on above: Result Comment: DUPL ICATE ORDER Performed By: #### L 100.0100, L500.2500 ####[facility] [address] [place], [address] GAP Normal 5-15 [facility] Comment on above: Result Comment: DUPL ICATE ORDER Performed By: #### L 100.0100, L500.2500 ####[facility] [address] [place], [address] GLU Normal 70-99 [facility] Comment on above: Result Comment: DUPL ICATE ORDER Performed By: #### L 100.0100, L500.2500 ####[facility] [address] [place], [address] Potassium Normal 3.3-5.1 [facility] Comment on above: Result Comment: DUPL ICATE ORDER Performed By: #### L 100.0100, L500.2500 ####[facility] [address] [place], [address] Basic Metabolic Profile (BMP) Normal 133-145 [facility] Comment on above: Result Comment: DUPL ICATE ORDER Performed By: #### L 100.0100, L500.2500 ####[facility] [address] [place], [address] BUN/CRE 13.2 RATIO Normal 10-20 [facility] Comment on above: Performed By: #### L 500.2500 ####[facility] [address] [place], [address] Calcium [Mass/Vol] 12.3 mg/dL High 7.6-11.[address] [facility] Comment on above: Performed By: #### L 500.2500 ####[facility] [address] [place], [address] Chloride [Moles/Vol] 93 mmol/L Low 98-108 [facility] Comment on above: Performed By: #### L 500.2500 ####[facility] [address] [place], [address] CO2 [Moles/Vol] 21.4 mmol/L Normal 21.0-32.0 [facility] Comment on above: Performed By: #### L 500.2500 ####[facility] [address] [place], [address] Creatinine [Mass/Vol] 8.49 mg/dL Invalid Interpretation Code 0.70-1.20 [facility] Comment on above: Result Comment: Crit ical Result(s) Called at: by:??Results read back bysame.Critical Result(s) Called at: 0445 by:??ELIZABETH HUANG Results read back by same. Performed By: #### L 500.2500 ####[facility] [address] [place], [address] ECRCL 6.97 ml/min Invalid Interpretation Code 50-250 [facility] Comment on above: Performed By: #### L 500.2500 ####[facility] [address] [place], [address] GAP 14 Normal 5-15 [facility] Comment on above: Performed By: #### L 500.2500 ####[facility] [address] [place], [address] GFR/1.73 sq M.predicted among non-blacks MDRD (S/P/Bld) [Vol rate/Area] 6 mL/min/{1.73_m2} Low >60 [facility] Comment on above: Result Comment: mL/m in/1.73m2 CKD-EPI Creatinine Equation (2020) Performed By: #### L 500.2500 ####[facility] [address] [place], [address] Glucose [Mass/Vol] 72 mg/dL Normal 70-[address] [facility] Comment on above: Performed By: #### L 500.2500 ####[facility] [address] [place], [address] Potassium [Moles/Vol] 4.4 mmol/L Normal 3.3-5.1 [facility] Comment on above: Performed By: #### L 500.2500 ####[facility] [address] [place], [address] Sodium [Moles/Vol] 129 mmol/L Low 133-[address] [facility] Comment on above: Performed By: #### L 500.2500 ####[facility] [address] [place], [address] Urea nitrogen [Mass/Vol] 112 mg/dL Invalid Interpretation Code 06-18 [facility] Comment on above: Result Comment: Crit ical Result(s) Called at: 0445 by:??ELIZABETH HUANG Results read back by same. Performed By: #### L 500.2500 ####[facility] [address] [facility] [address] Basophil percentageOrdered B y: Claire Mazariegos on 12-04-2024 Basophils/100 WBC (Bld) 0.2 % 0-1 [facility] Bedside Glucoseon 12-04-2024 FINGERSTICK GLU 132 mg/dL High 74-106 [facility] Comment on above: Result Comment: ANA GEMENT OF PATIENT CARE PER NURSING PROTOCOL Performed By: #### L 501.080 ####[facility] [address] [facility] [address] FINGERSTICK GLU 104 mg/dL Normal 74-106 [facility] Comment on above: Result Comment: ANA GEMENT OF PATIENT CARE PER NURSING PROTOCOL Performed By: #### L 501.080 ####[facility] [address] [facility] [address] FINGERSTICK GLU 81 mg/dL Normal 74-106 [facility] Comment on above: Result Comment: ANA GEMENT OF PATIENT CARE PER NURSING PROTOCOL Performed By: #### L 501.080 ####[facility] [address] [place], [address] FINGERSTICK GLU 142 mg/dL High 74-106 [facility] Comment on above: Result Comment: ANA GEMENT OF PATIENT CARE PER NURSING PROTOCOL Performed By: #### L 501.080 ####[facility] [address] [place], [address] FINGERSTICK GLU 65 mg/dL Low 74-106 [facility] Comment on above: Result Comment: ANA GEMENT OF PATIENT CARE PER NURSING PROTOCOL Performed By: #### L 501.080 ####[facility] [address] [place], [address] CBC W/Diff, Automatedon 10-0 5-202 Absolute Lymph 0.77 X10 3/uL Low 0.83-4.51 [facility] Comment on above: Performed By: #### L 100.0100, L500.2500 ####[facility] [address] [place], [address] Absolute Neut 4.9 X10 3/uL Normal 2.0-7.7 [facility] Comment on above: Performed By: #### L 100.0100, L500.2500 ####[facility] [address] [place], [address] Basophils/100 WBC (Bld) 0.2 % Normal 0-1 [facility] Comment on above: Performed By: #### L 100.0100, L500.2500 ####[facility] [address] [place], [address] Eosinophils/100 WBC (Bld) 1.4 % Normal 0-5 [facility] Comment on above: Performed By: #### L 100.0100, L500.2500 ####[facility] [address] [place], [address] Erythrocyte distribution width (RBC) [Ratio] 11.5 % Low 11.6-14.6 [facility] Comment on above: Performed By: #### L 100.0100, L500.2500 ####[facility] [address] [place], [address] Hematocrit (Bld) [Volume fraction] 21.3 % Low 40-54 [facility] Comment on above: Performed By: #### L 100.0100, L500.2500 ####[facility] [address] [place], [address] Hemoglobin (Bld) [Mass/Vol] 7.9 g/dL Low 13.0-16.5 [facility] Comment on above: Performed By: #### L 100.0100, L500.2500 ####[facility] [address] [place], [address] IG% 0.500 Normal 0.0-0.9 [facility] Comment on above: Result Comment: IG% - Immature Granulocytes (promyelocytes, myelocytes andmetamyelocytes) > 1% indicates that a LEFT SHIFT is Present. Performed By: #### L 100.0100, L500.2500 ####[facility] [address] [place], [address] Lymphocytes/100 WBC (Bld) 12.1 % Low 19-41 [facility] Comment on above: Performed By: #### L 100.0100, L500.2500 ####[facility] [address] [place], [address] MCH (RBC) [Entitic mass] 36.6 pg High 27.0-32.0 [facility] Comment on above: Performed By: #### L 100.0100, L500.2500 ####[facility] [address] [place], [address] MCHC (RBC) [Mass/Vol] 37.1 g/dL High 32-36 [facility] Comment on above: Performed By: #### L 100.0100, L500.2500 ####[facility] [address] [place], [address] MCV (RBC) [Entitic vol] 98.6 fL High 80-94 [facility] Comment on above: Performed By: #### L 100.0100, L500.2500 ####[facility] [address] [place], [address] Monocytes/100 WBC (Bld) 9.9 % Normal 0-10 [facility] Comment on above: Performed By: #### L 100.0100, L500.2500 ####[facility] [address] [place], [address] Neutrophils/100 WBC (Bld) 75.9 % High 47-70 [facility] Comment on above: Performed By: #### L 100.0100, L500.2500 ####[facility] [address] [place], [address] Nucleated RBC (Bld) [#/Vol] 0 10*3/uL Normal 0-5 [facility] Comment on above: Performed By: #### L 100.0100, L500.2500 ####[facility] [address] [place], [address] Platelet mean volume (Bld) [Entitic vol] 9.7 fL Normal 6.2-12.0 [facility] Comment on above: Performed By: #### L 100.0100, L500.2500 ####[facility] [address] [place], [address] Platelets (Bld) [#/Vol] 134 10*3/uL Low 150-450 [facility] Comment on above: Performed By: #### L 100.0100, L500.2500 ####[facility] [address] [place], [address] RBC (Bld) [#/Vol] 2.16 10*6/uL Low 4.6-6.2 [facility] Comment on above: Performed By: #### L 100.0100, L500.2500 ####[facility] [address] [place], [address] RDW SD 41.4 fl Normal 35.1-43.9 [facility] Comment on above: Performed By: #### L 100.0100, L500.2500 ####[facility] [address] [place], [address] WBC (Bld) [#/Vol] 6.4 10*3/uL Normal 4.4-11.[address] [facility] Comment on above: Performed By: #### L 100.0100, L500.2500 ####[facility] [address] [place], [address] Calculated very low density lipoprotein (VLDL) cholesterol measurementOrdered By: Claire Mazariegos on 12-04-2024 Calculated very low density lipoprotein (VLDL) cholesterol measurement 21 mg/dL 5-40 [facility] Consultation - Nephrologyon 12-04-2024 Consultation - Nephrology Normal [facility] Eosinophil percentageOrdered By: Claire Mazariegos on 12-04-2024 Eosinophils/100 WBC (Bld) 1.4 % 0-5 [facility] Immature granulocytes/100 WB C Auto (Bld)Ordered By: Claire Mazariegos on 12-04-2024 Immature granulocytes/100 WBC (Bld) 0.500 % 0.0-0.9 [facility] Comment on above: IG% - Immature Granu locytes (promyelocytes, myelocytes and metamyelocytes) > 1% indicates that a LEFT SHIFT is Present. LDL calc ser/plasOrdered By: Claire Mazariegos on 12-04-2024 Cholesterol in LDL [Mass/Vol] 7 mg/dL Normal [facility] Comment on above: Fvtbjqilxg=961-680 m g/dL & Higher Ijgp=602 mg/dL or greaterFriedwald Equation for LDL-C Result Comment: Bord rfwvbm=806-001 mg/dL Higher Rmpq=929 mg/dL or greaterFriedwald Equation for LDL-C Performed By: #### L 500.4100 ####[facility] [address] [place], [place], [address] Lipid Profileon 12-04-2024 CHOL:HDL 2.09 Normal [facility] Comment on above: Performed By: #### L 500.4100 ####[facility] [address] [place], [place], [address] Cholesterol in VLDL [Mass/Vol] 21 mg/dL Normal 5-40 [facility] Comment on above: Performed By: #### L 500.4100 ####[facility] [address] [place], [place], [address] Monocyte percentageOrdered B y: Claire Mazariegos on 12-04-2024 Monocytes/100 WBC (Bld) 9.9 % 0-10 [facility] Neutrophil percentageOrdered By: Claire Mazariegos on 12-04-2024 Neutrophils/100 WBC (Bld) 75.9 % High 47-70 [facility] Nucleated red blood cell per centageOrdered By: Claire Mazariegos on 12-04-2024 Nucleated RBC/100 WBC (Bld) [Ratio] 0 % 0-5 [facility] Screening total cholesterol/ high density lipoprotein (HDL) cholesterol ratioOrdered By: Claire Mazariegos on 12-04-2024 Cholesterol.total/Maxine sterol in HDL [Mass ratio] 2.09 {ratio} [facility] Serum or plasma cholesterol in HDL measurement (mass/volume)Ordered By: Claire Mazariegos on 12-04-2024 Cholesterol in HDL [Mass/Vol] 25 mg/dL Low [facility] Comment on above: National Cholesterol Education Program [...] and age. Performed By: #### L 500.4100 ####[facility] [address] [place], [place], [address] Serum or plasma cholesterol measurement (mass/volume)Ordered By: Claire Mazariegos on 12-04-2024 Cholesterol [Mass/Vol] 53 mg/dL Normal <=200 [facility] Comment on above: Cholesterol level, D esirable <200 mg/dLBorderline high cholesterol 200-239 mg/dLHigh cholesterol >=240 mg/dLRecommendations of the NCEP Adult Treatment Panel for the following risk-cutoff thresholds for the [place] population. Result Comment: Chol esterol level, Desirable <200 mg/dLBorderline high cholesterol 200-239 mg/dLHigh cholesterol >=240 mg/dLRecommendations of the NCEP Adult Treatment Panel for thefollowing risk-cutoff thresholds for the [place] American[place]. Performed By: #### L 500.4100 ####[facility] [address] [place], [place], [id number] Triglycerides measurementOrd ered By: Claire Mazariegos on 12-04-2024 Triglyceride [Mass/Vol] 103 mg/dL Normal [facility] Comment on above: The drugs N-Acetylcy steine and Metamizole may falsely depress this assay. Normal range: <150 mg/dLBorderline High: 150-199 mg/dLHigh: 200-499 mg/dLVery High: >500 mg/dL Result Comment: The drugs N-Acetylcysteine and Metamizole may falselydepress this assay.Normal range: <150 mg/dLBorderline High: 150-199 mg/dLHigh: 200-499 mg/dLVery High: >500 mg/dL Performed By: #### L 500.4100 ####[facility] [address] [place], [place], [id number] Urine Cultureon 12-04-2024 URC Culture exhibits no growth. Normal [facility] Comment on above: Performed By: #### L 501.7400, L502.0250, L501.1200, L502.0715, L500.9400, M100.2200, L400.0001 ####[facility] [address] [place], [address] 24 hour urine alpha 2 globul in/total protein ratio by electrophoresis (mass fraction)Ordered By: Claire Mazariegos on 12-03-2024 Alpha 2 globulin Elph (24H U) [Mass fraction] 4.2 % . [facility] 24 hour urine beta globulin/ total protein ratio by electrophoresis (mass fraction)Ordered By: Claire Mazariegos on 12-03-2024 Beta globulin Elph (24H U) [Mass fraction] 11.1 % . [facility] 24 hour urine gamma globulin /total protein ratio by electrophoresis (mass fraction)Ordered By: Claire Mazariegos on 12-03-2024 Gamma globulin Elph (24H U) [Mass fraction] 63.6 % . [facility] Albumin Elph [Mass/Vol]Order ed By: Claire Mazariegos on 12-03-2024 Albumin [Mass/Vol] 2.9 g/dL 2.9-4.[address] [facility] Basic Metabolic Profile (BMP )on 12-03-2024 BUN Normal 4-19 [facility] Comment on above: Result Comment: DUPL ICATE ORDER Performed By: #### L 500.2500 ####[facility] [address] [place], [address] BUN/CRE Normal 10-20 [facility] Comment on above: Result Comment: DUPL ICATE ORDER Performed By: #### L 500.2500 ####[facility] [address] [place], [address] Calcium Normal 7.6-11.0 [facility] Comment on above: Result Comment: DUPL ICATE ORDER Performed By: #### L 500.2500 ####[facility] [address] [place], [address] CL Normal 98-108 [facility] Comment on above: Result Comment: DUPL ICATE ORDER Performed By: #### L 500.2500 ####[facility] [address] [place], [address] CO2 Normal 21.0-32.0 [facility] Comment on above: Result Comment: DUPL ICATE ORDER Performed By: #### L 500.2500 ####[facility] [address] [place], [address] CREAT,SERUM Normal 0.70-1.20 [facility] Comment on above: Result Comment: DUPL ICATE ORDER Performed By: #### L 500.2500 ####[facility] [address] [place], [address] eGFR Normal >60 [facility] Comment on above: Result Comment: DUPL ICATE ORDER Performed By: #### L 500.2500 ####[facility] [address] [place], [address] GAP Normal 5-15 [facility] Comment on above: Result Comment: DUPL ICATE ORDER Performed By: #### L 500.2500 ####[facility] [address] [place], [address] GLU Normal 70-99 [facility] Comment on above: Result Comment: DUPL ICATE ORDER Performed By: #### L 500.2500 ####[facility] [address] [place], [address] Potassium Normal 3.3-5.1 [facility] Comment on above: Result Comment: DUPL ICATE ORDER Performed By: #### L 500.2500 ####[facility] [address] [place], [address] Basic Metabolic Profile (BMP) Normal 133-145 [facility] Comment on above: Result Comment: DUPL ICATE ORDER Performed By: #### L 500.2500 ####[facility] [address] [place], [address] BUN/CRE 13.1 RATIO Normal 10-20 [facility] Comment on above: Performed By: #### L 500.2500 ####[facility] [address] [place], [address] Calcium [Mass/Vol] 13.0 mg/dL Invalid Interpretation Code 7.6-11.0 [facility] Comment on above: Result Comment: Crit ical Result(s) Called at: by:??Results read back bysame.Critical Result(s) Called EAFFOLTER at: 2127 by:BWORKMAN??Results read back by same. Performed By: #### L 500.2500 ####[facility] [address] [place], [address] Chloride [Moles/Vol] 88 mmol/L Low 98-108 [facility] Comment on above: Performed By: #### L 500.2500 ####[facility] [address] [place], [address] CO2 [Moles/Vol] 18.5 mmol/L Low 21.0-32.0 [facility] Comment on above: Performed By: #### L 500.2500 ####[facility] [address] [place], [address] Creatinine [Mass/Vol] 8.45 mg/dL Invalid Interpretation Code 0.70-1.20 [facility] Comment on above: Result Comment: Crit ical Result(s) Called at: by:??Results read back bysame.Critical Result(s) Called EAFFOLTER at: 2127 by:BWORKMAN??Results read back by same. Performed By: #### L 500.2500 ####[facility] [address] [place], [address] ECRCL 7.08 ml/min Invalid Interpretation Code 50-250 [facility] Comment on above: Performed By: #### L 500.2500 ####[facility] [address] [place], [address] GAP 20 High 5-15 [facility] Comment on above: Performed By: #### L 500.2500 ####[facility] [address] [place], [address] GFR/1.73 sq M.predicted among non-blacks MDRD (S/P/Bld) [Vol rate/Area] 6 mL/min/{1.73_m2} Low >60 [facility] Comment on above: Result Comment: mL/m in/1.73m2 CKD-EPI Creatinine Equation (2020) Performed By: #### L 500.2500 ####[facility] [address] [place], [address] Glucose [Mass/Vol] 82 mg/dL Normal 70-[address] [facility] Comment on above: Performed By: #### L 500.2500 ####[facility] [address] [place], [address] Potassium [Moles/Vol] 4.1 mmol/L Normal 3.3-5.1 [facility] Comment on above: Performed By: #### L 500.2500 ####[facility] [address] [place], [address] Sodium [Moles/Vol] 127 mmol/L Low 133-[address] [facility] Comment on above: Performed By: #### L 500.2500 ####[facility] [address] [place], [address] Urea nitrogen [Mass/Vol] 111 mg/dL Invalid Interpretation Code 06-18 [facility] Comment on above: Result Comment: Crit ical Result(s) Called EANETER at: 2128 by:WYATT??Results read back by same. Performed By: #### L 500.2500 ####[facility] [address] [place], [address] BUN Normal - [facility] Comment on above: Result Comment: DUPL ICATE ORDER Performed By: #### L 500.2500 ####[facility] [address] [place], [address] BUN/CRE Normal 10-20 [facility] Comment on above: Result Comment: DUPL ICATE ORDER Performed By: #### L 500.2500 ####[facility] [address] [place], [address] Calcium Normal 7.6-11.0 [facility] Comment on above: Result Comment: DUPL ICATE ORDER Performed By: #### L 500.2500 ####[facility] [address] [place], [address] CL Normal 98-108 [facility] Comment on above: Result Comment: DUPL ICATE ORDER Performed By: #### L 500.2500 ####[facility] [address] [place], [address] CO2 Normal 21.0-32.0 [facility] Comment on above: Result Comment: DUPL ICATE ORDER Performed By: #### L 500.2500 ####[facility] [address] [place], [address] CREAT,SERUM Normal 0.70-1.20 [facility] Comment on above: Result Comment: DUPL ICATE ORDER Performed By: #### L 500.2500 ####[facility] [address] [place], [address] eGFR Normal >60 [facility] Comment on above: Result Comment: DUPL ICATE ORDER Performed By: #### L 500.2500 ####[facility] [address] [place], [address] GAP Normal 5-15 [facility] Comment on above: Result Comment: DUPL ICATE ORDER Performed By: #### L 500.2500 ####[facility] [address] [place], [address] GLU Normal 70-99 [facility] Comment on above: Result Comment: DUPL ICATE ORDER Performed By: #### L 500.2500 ####[facility] [address] [place], [address] Potassium Normal 3.3-5.1 [facility] Comment on above: Result Comment: DUPL ICATE ORDER Performed By: #### L 500.2500 ####[facility] [address] [place], [address] Basic Metabolic Profile (BMP) Normal 133-145 [facility] Comment on above: Result Comment: DUPL ICATE ORDER Performed By: #### L 500.2500 ####[facility] [address] [place], [address] Bedside Glucoseon 12-03-2024 FINGERSTICK GLU 75 mg/dL Normal 74-106 [facility] Comment on above: Result Comment: ANA GEMENT OF PATIENT CARE PER NURSING PROTOCOL Performed By: #### L 501.080 ####[facility] [address] [place], [address] FINGERSTICK GLU 49 mg/dL Low 74-106 [facility] Comment on above: Result Comment: ANA GEMENT OF PATIENT CARE PER NURSING PROTOCOL Performed By: #### L 501.080 ####[facility] [address] [place], [address] FINGERSTICK GLU 56 mg/dL Low 74-106 [facility] Comment on above: Result Comment: ANA GEMENT OF PATIENT CARE PER NURSING PROTOCOL Performed By: #### L 501.080 ####[facility] [address] [place], [address] Bilirubin Test strip Ql (U)O rdered By: Claire Mazariegos on 12-03-2024 Bilirubin Ql (U) Negative Negative [facility] Bilirubin, totalOrdered By: Omari Luna on 12-03-2024 Bilirubin [Mass/Vol] 0.70 mg/dL 0.00-1.30 [facility] CBC W/Diff, Automatedon 10-0 4-2025 Absolute Lymph 1.13 X10 3/uL Normal 0.83-4.51 [facility] Comment on above: Performed By: #### L 100.0100, L501.2450, L500.4050 ####[facility] [address] [place], [address] Absolute Neut 6.2 X10 3/uL Normal 2.0-7.7 [facility] Comment on above: Performed By: #### L 100.0100, L501.2450, L500.4050 ####[facility] [address] [place], [address] Basophils/100 WBC (Bld) 0.1 % Normal 0-1 [facility] Comment on above: Performed By: #### L 100.0100, L501.2450, L500.4050 ####[facility] [address] [place], [address] Eosinophils/100 WBC (Bld) 0.2 % Normal 0-5 [facility] Comment on above: Performed By: #### L 100.0100, L501.2450, L500.4050 ####[facility] [address] [place], [address] Erythrocyte distribution width (RBC) [Ratio] 11.3 % Low 11.6-14.6 [facility] Comment on above: Performed By: #### L 100.0100, L501.2450, L500.4050 ####[facility] [address] [place], [address] Hematocrit (Bld) [Volume fraction] 28.9 % Low 40-54 [facility] Comment on above: Performed By: #### L 100.0100, L501.2450, L500.4050 ####[facility] [address] [place], [address] Hemoglobin (Bld) [Mass/Vol] 10.7 g/dL Low 13.0-16.5 [facility] Comment on above: Performed By: #### L 100.0100, L501.2450, L500.4050 ####[facility] [address] [place], [address] IG% 0.400 Normal 0.0-0.9 [facility] Comment on above: Result Comment: IG% - Immature Granulocytes (promyelocytes, myelocytes andmetamyelocytes) > 1% indicates that a LEFT SHIFT is Present. Performed By: #### L 100.0100, L501.2450, L500.4050 ####[facility] [address] [place], [address] Lymphocytes/100 WBC (Bld) 14.1 % Low 19-41 [facility] Comment on above: Performed By: #### L 100.0100, L501.2450, L500.4050 ####[facility] [address] [place], [address] MCH (RBC) [Entitic mass] 36.1 pg High 27.0-32.0 [facility] Comment on above: Performed By: #### L 100.0100, L501.2450, L500.4050 ####[facility] [address] [place], [address] MCHC (RBC) [Mass/Vol] 37.0 g/dL High 32-36 [facility] Comment on above: Performed By: #### L 100.0100, L501.2450, L500.4050 ####[facility] [address] [place], [address] MCV (RBC) [Entitic vol] 97.6 fL High 80-94 [facility] Comment on above: Performed By: #### L 100.0100, L501.2450, L500.4050 ####[facility] [address] [place], [address] Monocytes/100 WBC (Bld) 8.6 % Normal 0-10 [facility] Comment on above: Performed By: #### L 100.0100, L501.2450, L500.4050 ####[facility] [address] [place], [address] Neutrophils/100 WBC (Bld) 76.6 % High 47-70 [facility] Comment on above: Performed By: #### L 100.0100, L501.2450, L500.4050 ####[facility] [address] [place], [address] Nucleated RBC (Bld) [#/Vol] 0 10*3/uL Normal 0-5 [facility] Comment on above: Performed By: #### L 100.0100, L501.2450, L500.4050 ####[facility] [address] [place], [address] Platelet mean volume (Bld) [Entitic vol] 9.6 fL Normal 6.2-12.0 [facility] Comment on above: Performed By: #### L 100.0100, L501.2450, L500.4050 ####[facility] [address] [place], [address] Platelets (Bld) [#/Vol] 206 10*3/uL Normal 150-450 [facility] Comment on above: Performed By: #### L 100.0100, L501.2450, L500.4050 ####[facility] [address] [place], [address] RBC (Bld) [#/Vol] 2.96 10*6/uL Low 4.6-6.2 [facility] Comment on above: Performed By: #### L 100.0100, L501.2450, L500.4050 ####[facility] [address] [place], [address] RDW SD 40.3 fl Normal 35.1-43.9 [facility] Comment on above: Performed By: #### L 100.0100, L501.2450, L500.4050 ####[facility] [address] [place], [address] WBC (Bld) [#/Vol] 8.0 10*3/uL Normal 4.4-11.[address] [facility] Comment on above: Performed By: #### L 100.0100, L501.2450, L500.4050 ####[facility] [address] [place], [address] CPK Total, Creatine Kinaseon 12-03-2024 CPK TOTAL 47 U/L Normal 24-195 [facility] Comment on above: Order Comment: Comme nts: may add to ED labs Performed By: #### L 501.3620, L501.7300, L3600.4000, L501.5200, L501.9520, L509.1000, L3100.3425, L506.1001, L501.2300 ####[facility] [address] [place], [address] Chest PA and Lateralon 12-03 Chest PA and Lateral Normal [facility] Comprehensive Metabolic Prof ilon 12-03-2024 Urea nitrogen [Mass/Vol] 113 mg/dL Invalid Interpretation Code 4-19 [facility] Comment on above: Result Comment: Crit ical Result(s) Called AHAGGARTY at: 1608 by:WYATT??Results read back by same. Performed By: #### L 100.0100, L501.2450, L500.4050 ####[facility] [address] [place], [address] Creatinine, Urine (random)on 12-03-2024 UR CREAT 50.10 mg/dL Normal 39.00-259.00 [facility] Comment on above: Performed By: #### L 501.7400, L502.0250, L501.1200, L502.0715, L500.9400, M100.2200, L400.0001 ####[facility] [address] [place], [place], [address] Emergency Department Summary on 12-03-2024 Emergency Department Summary Normal [facility] H AND P Exam - Hospitaliston 12-03-2024 H&P Exam - Hospitalist Normal [facility] Interpretation of serum or p lasma protein pattern by immunofixation (narrative resultOrdered By: Claire Mazariegos on 12-03-2024 Protein Fractions Immunofixation Don [Interp] Comment: g/dL Not Observed [facility] Ketones Test strip Ql (U)Ord ered By: Claire Mazariegos on 12-03-2024 Ketones Ql (U) Negative Negative [facility] Laboratory - Chemistry and C hemistry - challengeOrdered By: Omari Luna on 12-03-2024 AST [Catalytic activity/Vol] 29 U/L <38 [facility] Lipaseon 12-03-2024 Lipase [Catalytic activity/Vol] 57 U/L Normal 13-75 [facility] Comment on above: Result Comment: Plepawel de la rosa note:LIPASE revised reference range effective 22.New Lipase methodology. Expected to produce lower valuesthan the previous assay method.NEW Reference Range: 13 - 75 U/L Performed By: #### L 100.0100, L501.2450, L500.4050 ####[facility] [address] [place], [place], [address] Lipase measurementOrdered By : Omari Luna on 12-03-2024 Lipase [Catalytic activity/Vol] 57 U/L 13-75 [facility] Comment on above: Please note:LIPASE r evised reference range effective 22. New Lipase methodology. Expected to produce lower values than the previous assay method. NEW Reference Range: 13 - 75 U/L Magnesiumon 12-03-2024 Magnesium [Mass/Vol] 5.4 mg/dL Invalid Interpretation Code 1.5-2.2 [facility] Comment on above: Order Comment: Comme nts: may add to ED labs Result Comment: Crit ical Result(s) Called CLIVE at: 1955 by:WYATT??Results read back by same. Performed By: #### L 501.3620, L501.7300, L3600.4000, L501.5200, L501.9520, L509.1000, L3100.3425, L506.1001, L501.2300 ####[facility] [address] [place], [place], [address] Magnesium measurement (mass/ volume)Ordered By: Claire Mazariegos on 12-03-2024 Magnesium (Unsp spec) [Mass/Vol] 5.4 mg/dL Critically high 1.5-2.2 [facility] Comment on above: Critical Result(s) C alled CLIVE at: 1955 by: WYATT Results read back by same. Microalb:Creat Ratio,Random URon 12-03-2024 MALB:CREAT 201.6 mg/g CRE High <30 mg/g CRE [facility] Comment on above: Performed By: #### L 501.7400, L502.0250, L501.1200, L502.0715, L500.9400, M100.2200, L400.0001 ####[facility] [address] [place], [place], [address] MICROALBUMIN,UR 101.0 mg/L Normal <20 mg/L [facility] Comment on above: Performed By: #### L 501.7400, L502.0250, L501.1200, L502.0715, L500.9400, M100.2200, L400.0001 ####[facility] [address] [place], [place], [address] Microscopic analysis of urin e for red blood cells (RBC)Ordered By: Claire Mazariegos on 12-03-2024 Microscopic analysis of urine for red blood cells (RBC) 10-25 SEEN /hpf 0-5 [facility] Mucus LM Ql (Urine sed)Order ed By: Claire Mazariegos on 12-03-2024 Mucus Ql (Urine sed) 0 SEEN /hpf [facility] Nitrite Test strip Ql (U)Ord ered By: Claire Mazariegos on 12-03-2024 Nitrite Ql (U) Negative Negative [facility] No Panel InformationOrdered By: Claire Mazariegos on 12-03-2024 Addendum Document Comment . [facility] Comment . [facility] Osmolality urOrdered By: Portillo Mazariegos on 12-03-2024 Osmolality (U) [Osmolality] 336 mOsm/KG >50 [facility] Comment on above: Normal Urine Referen ce Ranges Random: 50 - 1200 mOsm/kg H20 depending on fluid intake Random: >850 mOsm/kg after 12 hour fluid restriction 24 hour: ~300 - 900 mOsm/kg H2O Osmolality, Serumon 12-04-19 25 OSMOLALITY,SER 324 mOsm/KG High 280-301 [facility] Comment on above: Performed By: #### L 501.3620, L501.7300, L3600.4000, L501.5200, L501.9520, L509.1000, L3100.3425, L506.1001, L501.2300 ####[facility] [address] [facility] [place], [address] Osmolality, Urineon 12-04-19 25 OSMOLALITY,UR 336 mOsm/KG Normal [facility] Comment on above: Result Comment: Norm al Urine Reference Ranges Random: 50 - 1200 mOsm/kg H20 depending on fluid intake Random: >850 mOsm/kg after 12 hour fluid restriction 24 hour: 300 - 900 mOsm/kg H2O Performed By: #### L 501.7400, L502.0250, L501.1200, L502.0715, L500.9400, M100.2200, L400.0001 ####[facility] [address] [place], [address] PTHINon 12-03-2024 PTH 15 pg/mL Normal 11-61 [facility] Comment on above: Performed By: #### L 501.3620, L501.7300, L3600.4000, L501.5200, L501.9520, L509.1000, L3100.3425, L506.1001, L501.2300 ####[facility] [address] [facility] [address] [place], [place], [address] Phosphoruson 12-03-2024 Phosphate [Mass/Vol] 5.6 mg/dL High 2.7-4.5 [facility] Comment on above: Order Comment: Comme nts: may add to ED labs Performed By: #### L 501.3620, L501.7300, L3600.4000, L501.5200, L501.9520, L509.1000, L3100.3425, L506.1001, L501.2300 ####[facility] [address] [place], [place], [address] Protein Test strip Ql (U)Ord ered By: Claire Mazariegos on 12-03-2024 Protein Ql (U) 30 mg/dl High Negative [facility] Random urine creatinine darell urement (mass/volume)Ordered By: Claire Mazariegos on 12-03-2024 Creatinine Unsp time (U) [Mass/Vol] 50.10 mg/dL 39.00-259.00 [facility] Serum globulin measurementOr dered By: Omari Luna on 12-03-2024 Globulin (S) [Mass/Vol] 6.1 g/dL High 2.2-4.2 [facility] Serum or plasma IgA measurem ent (mass/volume)Ordered By: Claire Mazariegos on 12-03-2024 IgA [Mass/Vol] 3265 mg/dL High 61-437 [facility] Serum or plasma IgG measurem ent (mass/volume)Ordered By: Claire Mazariegos on 12-03-2024 IgG [Mass/Vol] 326 mg/dL Low 603-1613 [facility] Serum or plasma alanine saunders otransferase (ALT) measurementOrdered By: Omari Luna on 12-03-2024 ALT [Catalytic activity/Vol] 25 U/L <47 [facility] Serum or plasma albumin darell urement (mass/volume)Ordered By: Omari Luna on 12-03-2024 Albumin [Mass/Vol] 3.6 g/dL 3.4-4.[address] [facility] Serum or plasma albumin/glob ulin mass ratioOrdered By: Omari Luna on 12-03-2024 Albumin/Globulin [Mass ratio] 0.6 {ratio} Low 0.9-2.4 [facility] Serum or plasma alkaline chelle sphatase measurementOrdered By: Omari Luna on 12-03-2024 ALP [Catalytic activity/Vol] 91 U/L 40-129 [facility] Serum or plasma alpha 1 glob ulin measurement by electrophoresis (mass/volume)Ordered By: Claire Mazariegos on 12-03-2024 Alpha 1 globulin Elph [Mass/Vol] 0.3 g/dL 0.0-0.4 [facility] Alpha 1 globulin Elph [Mass/Vol] 0.7 g/dL 0.4-1.0 [facility] Serum or plasma beta globuli n measurement by electrophoresis (mass/volume)Ordered By: Claire Mazariegos on 12-03-2024 Beta globulin Elph [Mass/Vol] 3.6 g/dL High 0.7-1.3 [facility] Serum or plasma creatine kin ase activityOrdered By: Claire Mazariegos on 12-03-2024 CK [Catalytic activity/Vol] 47 U/L 24-195 [facility] Serum or plasma gamma globul in measurement by electrophoresis (mass/volume)Ordered By: Claire Mazariegos on 12-03-2024 Gamma globulin Elph [Mass/Vol] 0.3 g/dL Low 0.4-1.8 [facility] Serum or plasma immunoelectr ophoresis interpretation (nominal result)Ordered By: Claire Mazariegos on 12-03-2024 Interpretation IEP [Interp] Comment High . [facility] Serum or plasma protein darell urement (mass/volume)Ordered By: Claire Mazariegos on 12-03-2024 Protein [Mass/Vol] 7.8 g/dL 6.0-8.[address] [facility] Squamous epithelial cells de tection in urine sediment by light microscopyOrdered By: Claire Mazariegos on 12-03-2024 Epithelial cells.squamous LM Ql (Urine sed) 0-5 SEEN /hpf 0-5 [facility] TSH DL <= 0.005 mIU/L QnOrde red By: Claire Mazariegos on 12-03-2024 TSH Qn 0.591 uIU/mL 0.300-4.200 [facility] Thyroid Stim Hormone (TSH)on 12-03-2024 TSH 0.591 uIU/mL Normal 0.300-4.200 [facility] Comment on above: Order Comment: Comme nts: may add to ED labs Performed By: #### L 501.3620, L501.7300, L3600.4000, L501.5200, L501.9520, L509.1000, L3100.3425, L506.1001, L501.2300 ####[facility] [address] [place], [place], [id number] Total proteinOrdered By: Devonte Luna on 12-03-2024 Protein [Mass/Vol] 9.6 g/dL High 5.9-8.[address] [facility] Urea Nitrogen, Urineon 12-03 URINE UREA 406 mg/dL Normal NO RANGE EST. [facility] Comment on above: Performed By: #### L 501.7400, L502.0250, L501.1200, L502.0715, L500.9400, M100.2200, L400.0001 ####[facility] [address] [place], [place], [id number] Urinalysis, Completeon 12-03 BACTERIA RARE Normal None Seen [facility] Comment on above: Order Comment: TRU TER SPECIMEN Performed By: #### L 501.7400, L502.0250, L501.1200, L502.0715, L500.9400, M100.2200, L400.0001 ####[facility] [address] [place], [place], [phone] EPI,SQUAMOUS 0-5 SEEN Normal 0-5 [facility] Comment on above: Order Comment: TRU TER SPECIMEN Performed By: #### L 501.7400, L502.0250, L501.1200, L502.0715, L500.9400, M100.2200, L400.0001 ####[facility] [address] [place], [address] RBC 10-25 SEEN Normal 0-5 [facility] Comment on above: Order Comment: TRU TER SPECIMEN Performed By: #### L 501.7400, L502.0250, L501.1200, L502.0715, L500.9400, M100.2200, L400.0001 ####[facility] [address] [place], [address] WBC 0-5 SEEN Normal 0-5 [facility] Comment on above: Order Comment: TRU TER SPECIMEN Performed By: #### L 501.7400, L502.0250, L501.1200, L502.0715, L500.9400, M100.2200, L400.0001 ####[facility] [address] [place], [address] Mucus Ql (Urine sed) 0 SEEN Normal [facility] Comment on above: Order Comment: TRU TER SPECIMEN Performed By: #### L 501.7400, L502.0250, L501.1200, L502.0715, L500.9400, M100.2200, L400.0001 ####[facility] [address] [place], [address] Urine Electrolytes- Randomon 12-03-2024 Chloride,URINE 46 mmol/L Normal Not Establ. [facility] Comment on above: Performed By: #### L 501.7400, L502.0250, L501.1200, L502.0715, L500.9400, M100.2200, L400.0001 ####[facility] [address] [place], [address] Sodium (U) [Moles/Vol] 56 mmol/L Normal Not Establ. [facility] Comment on above: Performed By: #### L 501.7400, L502.0250, L501.1200, L502.0715, L500.9400, M100.2200, L400.0001 ####[facility] [address] [place], [place], [address] UR K 25.6 mmol/L Normal Not Establ. [facility] Comment on above: Performed By: #### L 501.7400, L502.0250, L501.1200, L502.0715, L500.9400, M100.2200, L400.0001 ####[facility] [address] [place], [address] Urine albumin measurement [facility] detection limit of 20 mg/L or less (mass/volume)Ordered By: Claire Mazariegos on 12-03-2024 Albumin DL <= 20 mg/L (U) [Mass/Vol] 101.0 mg/L <20 mg/L [facility] Urine albumin/total protein mass ratio by electrophoresisOrdered By: Claire Mazariegos on 12-03-2024 Albumin Elph (U) [Mass fraction] 19.6 % . [facility] Urine alpha 1 globulin/total protein ratio by electrophoresis (mass fraction)Ordered By: Claire Mazariegos on 12-03-2024 Alpha 1 globulin Elph (U) [Mass fraction] 1.5 % . [facility] Urine clarityOrdered By: Portillo Mazariegos on 12-03-2024 Clarity (U) Clear Clear [facility] Urine color determinationOrd ered By: Claire Mazariegos on 12-03-2024 Color (U) Straw Yellow [facility] Urine cultureOrdered By: Portillo Mazariegos on 12-03-2024 Bacteria identified Cx Nom (U) Culture exhibits no growth. [facility] Bacteria identified Cx Nom (U) Culture exhibits no growth. [facility] Urine glucose detectionOrder ed By: Claire Mazariegos on 12-03-2024 Glucose Ql (U) Normal mg/dl Normal [facility] Urine leukocyte esterase det ection by dipstickOrdered By: Claire Mazariegos on 12-03-2024 Leukocyte esterase Test strip Ql (U) 25 /ul High Negative [facility] Urine monoclonal protein/tot al protein mass ratio by electrophoresisOrdered By: Claire Mazariegos on 10-04-2025 Protein.monoclonal Elph (U) [Mass fraction] See comment [facility] Urine pHOrdered By: Claire pisano on 12-03-2024 pH (U) 7.0 [pH] 5.0 - 8.0 [facility] Urine potassium measurement (moles/volume)Ordered By: Claire Mazariegos on 12-03-2024 Potassium (U) [Moles/Vol] 25.6 mmol/L Not Establ. [facility] Urine protein measurement (m ass/volume)Ordered By: Claire Mazariegos on 12-03-2024 Protein (U) [Mass/Vol] 87.9 mg/dL Not Estab. [facility] Urine sediment bacteria coun t by microscopy (number/high power field)Ordered By: Claire Mazariegos on 12-03-2024 Bacteria LM.HPF (Urine sed) [#/Area] RARE /hpf None Seen [facility] Urine sodium measurement (mo les/volume)Ordered By: Claire Mazariegos on 12-03-2024 Sodium (U) [Moles/Vol] 56 mmol/L Not Establ. [facility] Urine specific gravity measu rementOrdered By: Claire Mazariegos on 12-03-2024 Specific gravity (U) [Rel density] 1.010 1.002-1.030 [facility] Urine urobilinogen measureme ntOrdered By: Claire Mazariegos on 12-03-2024 Urobilinogen Ql (U) Normal mg/dl Normal [facility] Vitamin D,25 Hydroxyon 12-03 Vitamin D 25-OH 43.3 ng/mL Normal 30-100 [facility] Comment on above: Order Comment: Comme nts: may add to ED labs Result Comment: Nadine min D StatusDeficiency: <20 ng/mL (50nmol/L)Insufficiency: 20-30 ng/mL (50-75 nmol/L)Sufficiency: 30-100 ng/mL (75-250 nmol/L)Toxicity: >100 ng/mL (>250 nmol/L) Performed By: #### L 501.3620, L501.7300, L3600.4000, L501.5200, L501.9520, L509.1000, L3100.3425, L506.1001, L501.2300 ####[facility] [address] [place], [address] White blood cell countOrdere d By: Claire Mazariegos on 12-03-2024 White blood cell count 0-5 SEEN /hpf 0-5 [facility] Magnetic resonance imaging r eportOrdered By: Kushal Gomez on 11-25-2024 Study report [facility] Imaging Services [address] [place] [address] Spine Lumbar (Routine) MR#: [id number] Acct: [id number] Name: LINA VARGAS Rep #: [id number] : 1940 M 83 From: Dieter Gomez MD PCP: Dr. Luna Ashton, DO Status: RE G CLI Study:Spine Lumbar (Routine) Date of Exam: 11/25/24 Exam# [id number] Ordering Dr: Mita Feliciano MAGAZINE SUPERVISOR-C PROCEDURE: MRI SPINE LUMBAR (ROUTINE) 11/25/2024 REASON [...] at L3-4. More mild elsewhere. Reading Location: [id number] CC: MANJU Feliciano; Dr. Luna Ashton, DO ~ Contract Accountant: Signed [facility] Spine Lumbar (Routine)on Spine Lumbar (Routine) Normal [facility] Internal Medicine Office Vis iton 11-23-2024 Internal Medicine Office Visit Normal [facility] Lumbar Spine 2 or 3 Viewson 11-15-2024 Lumbar Spine 2 or 3 Views Normal [facility] Urgent Care Visit Reporton 0 11-15-2024 Urgent Care Visit Report Normal [facility] Cardiovascular stress test r eportOrdered By: Homer Grey on 10-19-2024 Study report [facility] [address] [place] [address] MR#: [id number] Acct: [id number] Name: LINA VARGAS Rep #: [id number] : 1940 83 From: Homer Grey MD [...] ~ Date Dictated: 10/19/241825 Date Transcribed: 10/19/241825 Contract Accountant: [place] Signed [facility] Work Phone: Stress Reporton 10-19-2024 Stress Report Normal [facility] Abdomen Limitedon 10-04-2024 Abdomen Limited Normal [facility] Internal Medicine Office Vis iton 09-29-2024 Internal Medicine Office Visit Normal [facility] Laboratory - Hematology and Cell countsOrdered By: Luna Ashton on 09-29-2024 HbA1c (Bld) [Mass fraction] 7.2 % High 4.2-6.3 [facility] No Panel InformationOrdered By: Luna Ashton on 09-29-2024 7.2 % High 4.2-6.3 [facility] Internal Medicine Office Vis iton 06-21-2024 Internal Medicine Office Visit Normal [facility] Laboratory - Hematology and Cell countsOrdered By: Luna Ashton on 06-21-2024 HbA1c (Bld) [Mass fraction] 6.9 % High 4.2-6.3 [facility] Comprehensive Metabolic Prof ilon 03-22-2024 Albumin [Mass/Vol] 3.7 g/dL Normal 3.2-5.[address] [facility] Comment on above: Performed By: #### L 500.4100, L500.4050 ####[facility] [address] [place], [address] Albumin/Globulin [Mass ratio] 0.7 {ratio} Low 0.9-2.4 [facility] Comment on above: Performed By: #### L 500.4100, L500.4050 ####[facility] [address] [place], [address] ALK P 68 U/L Normal 45-117 [facility] Comment on above: Performed By: #### L 500.4100, L500.4050 ####[facility] [address] [place], [address] ALT [Catalytic activity/Vol] 36 U/L Normal 16-61 [facility] Comment on above: Performed By: #### L 500.4100, L500.4050 ####[facility] [address] [place], [address] AST [Catalytic activity/Vol] 23 U/L Normal 15-37 [facility] Comment on above: Performed By: #### L 500.4100, L500.4050 ####[facility] [address] [place], [address] Bilirubin [Mass/Vol] 0.60 mg/dL Normal 0.20-1.00 [facility] Comment on above: Result Comment: For patients on eltrombopag therapy, use of Dimension Webster TBIL is not recommended. Performed By: #### L 500.4100, L500.4050 ####[facility] [address] [place], [address] BUN/CRE 13.2 RATIO Normal 10-20 [facility] Comment on above: Performed By: #### L 500.4100, L500.4050 ####[facility] [address] [place], [address] CA,Total 10.2 mg/dL High 8.5-10.1 [facility] Comment on above: Performed By: #### L 500.4100, L500.4050 ####[facility] [address] [place], [address] Chloride [Moles/Vol] 103 mmol/L Normal 98-107 [facility] Comment on above: Performed By: #### L 500.4100, L500.4050 ####[facility] [address] [place], [address] CO2 [Moles/Vol] 25.0 mmol/L Normal 21.0-32.0 [facility] Comment on above: Performed By: #### L 500.4100, L500.4050 ####[facility] [address] [place], [address] Creatinine [Mass/Vol] 1.52 mg/dL High 0.70-1.30 [facility] Comment on above: Result Comment: The validity of the calculated GFR GFRAA in patients over70 years has not been determined. Clinical correlation isessential. Performed By: #### L 500.4100, L500.4050 ####[facility] [address] [place], [address] EST GFR - AA 57 mL/min Low >60 [facility] Comment on above: Result Comment: Afri can Lebanese GFR Calc Performed By: #### L 500.4100, L500.4050 ####[facility] [address] [place], [address] GAP 9 Normal 5-15 [facility] Comment on above: Performed By: #### L 500.4100, L500.4050 ####[facility] [address] [place], [address] GFR/1.73 sq M.predicted among non-blacks MDRD (S/P/Bld) [Vol rate/Area] 47 mL/min/{1.73_m2} Low >60 [facility] Comment on above: Result Comment: Non- GFR Calc Performed By: #### L 500.4100, L500.4050 ####[facility] [address], [address] Globulin (S) [Mass/Vol] 5.4 g/dL High 2.2-4.2 [facility] Comment on above: Performed By: #### L 500.4100, L500.4050 ####[facility] [address] [place], [address] Glucose [Mass/Vol] 106 mg/dL Normal 74-[address] [facility] Comment on above: Result Comment: Fast ing Glucose result from 100 to 125 mg/dLsuggests IMPAIRED HOMEOSTASIS per A.D.A. criteria. Performed By: #### L 500.4100, L500.4050 ####[facility] [address] [place], [address] Potassium [Moles/Vol] 4.7 mmol/L Normal 3.5-5.1 [facility] Comment on above: Performed By: #### L 500.4100, L500.4050 ####[facility] [address] [place], [address] Sodium [Moles/Vol] 137 mmol/L Normal 136-[address] [facility] Comment on above: Performed By: #### L 500.4100, L500.4050 ####[facility] [address] [place], [address] T PROT 9.1 g/dL High 6.4-8.2 [facility] Comment on above: Performed By: #### L 500.4100, L500.4050 ####[facility] [address] [place], [address] Urea nitrogen [Mass/Vol] 20 mg/dL High 7-18 [facility] Comment on above: Performed By: #### L 500.4100, L500.4050 ####[facility] [address] [place], [address] Internal Medicine Office Vis iton 03-22-2024 Internal Medicine Office Visit Normal [facility] Lipid Profileon 03-22-2024 Cholesterol [Mass/Vol] 93 mg/dL Normal 200 [facility] Comment on above: Result Comment: <200 mg/dL Desirable 200-240 mg/dL Borderline >240 mg/dL High Risk Performed By: #### L 500.4100, L500.4050 ####[facility] [address] [place], [address] Cholesterol in HDL [Mass/Vol] 34 mg/dL Low [facility] Comment on above: Result Comment: The drugs N-Acetylcysteine and Metamizole may falselydepress this assay. Reference Range HDL <40 mg/dL Low HDL Cholesterol HDL >or= 60 mg/dL High HDL Cholesterol Performed By: #### L 500.4100, L500.4050 ####[facility] [address] [place], [address] Cholesterol in LDL [Mass/Vol] 27 mg/dL Normal 0-130 [facility] Comment on above: Performed By: #### L 500.4100, L500.4050 ####[facility] [address] [place], [address] Cholesterol in VLDL [Mass/Vol] 32 mg/dL Normal 5-40 [facility] Comment on above: Performed By: #### L 500.4100, L500.4050 ####[facility] [address] [place], [address] Triglyceride [Mass/Vol] 161 mg/dL Normal [facility] Comment on above: Result Comment: The drugs N-Acetylcysteine and Metamizole may falselydepress this assay.Serum Triglycerides Reference Interval Normal <150 mg/dL Borderline high 150 - 199 mg/dL High 200 - 499 mg/dL Very High > or = 500 mg/dL Performed By: #### L 500.4100, L500.4050 ####[facility] [address] [place], [address] Microalb:Creat Ratio,Random URon 03-22-2024 Creatinine [Mass/Vol] 124.00 mg/dL Normal NO RAN GE EST. [facility] Comment on above: Performed By: #### L 502.0250 ####[facility] [address] [place], [address] MALB:CRE 370.2 mg/g CRE High <30 mg/g CRE [facility] Comment on above: Performed By: #### L 502.0250 ####[facility] [address] [place], [address] MICROALBUMIN,UR 459.0 mg/L Normal NO RANGE EST. [facility] Comment on above: Performed By: #### L 502.0250 ####[facility] [address] [place], [address] Basophil percentageOrdered B y: Luna Brown on 12-10-2022 Bilirubin [Mass/Vol] 0.70 mg/dL 0.20-1.00 [facility] Comment on above: For patients on eltr ombopag therapy, use of Dimension Webster TBIL is not recommended. Chloride [Moles/Vol] 100 mmol/L 98-107 [facility] Cholesterol [Mass/Vol] 107 mg/dL <200 [facility] Comment on above: <200 mg/dL Desirable 200-240 mg/dL Borderline >240 mg/dL High Risk Glucose [Mass/Vol] 168 mg/dL 74-[address] [facility] Comment on above: Fasting Glucose resu lt greater than or equal to 126 mg/dL suggests DIABETES MELLITUS per A.D.A. criteria. Potassium [Moles/Vol] 4.2 mmol/L 3.5-5.1 [facility] Protein [Mass/Vol] 8.3 g/dL 6.4-8.[address] [facility] Sodium [Moles/Vol] 133 mmol/L 136-[address] [facility] Triglyceride [Mass/Vol] 124 mg/dL <199 [facility] Comment on above: The drugs N-Acetylcy steine and Metamizole may falsely depress this assay.Serum Triglycerides Reference Interval Normal <150 mg/dL Borderline high 150 - 199 mg/dL High 200 - 499 mg/dL Very High > or = 500 mg/dL Laboratory - Chemistry and C hemistry - challengeOrdered By: Luna Ashton on 12-10-2022 ALP [Catalytic activity/Vol] 68 U/L 45-117 [facility] ALT [Catalytic activity/Vol] 46 U/L 16-61 [facility] CO2 [Moles/Vol] 25.0 mmol/L 21.0-32.0 [facility] Globulin (S) [Mass/Vol] 4.5 g/dL 2.2-4.2 [facility] Urea nitrogen/Creatinine [Mass ratio] 13.6 mg/mg 10-20 [facility] No Panel InformationOrdered By: Luna Ashton on 12-10-2022 Estimated GFR (MDRD) Amer 62 mL/min >60 [facility] Comment on above: GFR Calc Estimated GFR (MDRD) Non-Af Amer 52 mL/min >60 [facility] Comment on above: Non- GFR Calc Serum or plasma albumin darell urement (mass/volume)Ordered By: Luna Ashton on 12-10-2022 Albumin [Mass/Vol] 3.8 g/dL 3.2-5.[address] [facility] Serum or plasma albumin/glob ulin mass ratioOrdered By: Luna Ashton on 12-10-2022 Albumin/Globulin [Mass ratio] 0.8 {ratio} 0.9-2.4 [facility] Serum or plasma calcium darell urement (mass/volume)Ordered By: Luna Ashton on 12-10-2022 Calcium [Mass/Vol] 9.8 mg/dL 8.5-10.[address] [facility] Serum or plasma cholesterol in HDL measurement (mass/volume)Ordered By: Luna Ashton on 12-10-2022 Cholesterol in HDL [Mass/Vol] 32 mg/dL >40 [facility] Comment on above: The drugs N-Acetylcy steine and Metamizole may falsely depress this assay. Reference Range HDL <40 mg/dL Low HDL Cholesterol HDL >or= 60 mg/dL High HDL Cholesterol Serum or plasma cholesterol in VLDL measurement (mass/volume)Ordered By: Luna Ashton on 12-10-2022 Cholesterol in VLDL [Mass/Vol] 25 mg/dL 5-40 [facility] Serum or plasma creatinine m easurement (mass/volume)Ordered By: Luna Ashton on 12-10-2022 Creatinine [Mass/Vol] 1.40 mg/dL 0.70-1.30 [facility] Comment on above: The validity of the calculated GFR & GFRAA in patients over 70 years has not been determined. Clinical correlation is essential. Serum or plasma low density lipoprotein (LDL) cholesterol measurement (mass/volume)Ordered By: Luna Ashton on 12-10-2022 Cholesterol in LDL [Mass/Vol] 50 mg/dL 0-130 [facility] Serum or plasma urea nitroge n measurement (mass/volume)Ordered By: Luna Ashton on 12-10-2022 Urea nitrogen [Mass/Vol] 19 mg/dL 7-18 [facility] Thin prep Papanicolaou smear with manual screeningOrdered By: Luna Ashton on 12-10-2022 Thin prep Papanicolaou smear with manual screening 26 U/L 15-37 [facility] Thin prep Papanicolaou smear with manual screening 8 5-15 [facility] Whole blood hemoglobin A1c/t otal hemoglobin ratio (mass fraction)Ordered By: Luna Ashton on 12-10-2022 HbA1c (Bld) [Mass fraction] 10.3 % 3.8-5.6 [facility] Comment on above: Normal < 5.7 % Predi abetic 5.7 - 6.4 % Diabetic >or= 6.5 % Please note range changes. Laboratory - Hematology and Cell countson 11-11-2022 HbA1c (Bld) [Mass fraction] 12.1 % 4.2-6.3 [facility] Laboratory - Chemistry and C hemistry - challengeOrdered By: Dr. Ashton on 07-01-2022 Free T4 [Mass/Vol] 1.48 ng/dL 0.76-1.[address] [facility] Laboratory - Hematology and Cell countson 07-01-2022 HbA1c (Bld) [Mass fraction] 11 % 4.2-6.3 [facility] No Panel InformationOrdered By: Dr. Ashton on 07-01-2022 Insulin Level 8.5 mU/L 2.6-37.6 [facility] Thyroid Stimulating Hormone (TSH) 0.76 uIU/mL 0.358-3.74 [facility] No Panel InformationOrdered By: Dr. Ashton on 04-03-2022 Thyroid Stimulating Hormone (TSH) 6.52 uIU/mL 0.358-3.74 [facility] Whole blood hemoglobin A1c/t otal hemoglobin ratio (mass fraction)Ordered By: Dr. Ashton on 04-03-2022 HbA1c (Bld) [Mass fraction] 10.7 % 3.8-5.6 [facility] Comment on above: Normal < 5.7 % Predi abetic 5.7 - 6.4 % Diabetic >or= 6.5 % Please note range changes. Basophil percentageOrdered B y: Dr. Ashton on 01-08-2022 Bilirubin [Mass/Vol] 0.70 mg/dL 0.20-1.00 [facility] Comment on above: For patients on eltr ombopag therapy, use of Dimension Webster TBIL is not recommended. Chloride [Moles/Vol] 100 mmol/L 98-107 [facility] Cholesterol [Mass/Vol] 122 mg/dL <200 [facility] Comment on above: <200 mg/dL Desirable 200-240 mg/dL Borderline >240 mg/dL High Risk Glucose [Mass/Vol] 208 mg/dL 74-[address] [facility] Comment on above: Glucose result great er than or equal to 200 mg/dLsuggests DIABETES MELLITUS per A.D.A. criteria. Potassium [Moles/Vol] 4.1 mmol/L 3.5-5.1 [facility] Protein [Mass/Vol] 8.0 g/dL 6.4-8.[address] [facility] Sodium [Moles/Vol] 138 mmol/L 136-[address] [facility] Triglyceride [Mass/Vol] 228 mg/dL <199 [facility] Comment on above: The drugs N-Acetylcy steine and Metamizole may falsely depress this assay.Serum Triglycerides Reference Interval Normal <150 mg/dL Borderline high 150 - 199 mg/dL High 200 - 499 mg/dL Very High > or = 500 mg/dL Laboratory - Chemistry and C hemistry - challengeOrdered By: Dr. Ashton on 01-08-2022 ALP [Catalytic activity/Vol] 71 U/L 45-117 [facility] ALT [Catalytic activity/Vol] 41 U/L 16-61 [facility] CO2 [Moles/Vol] 28.0 mmol/L 21.0-32.0 [facility] Globulin (S) [Mass/Vol] 4.0 g/dL 2.2-4.2 [facility] Urea nitrogen/Creatinine [Mass ratio] 12.7 mg/mg 10-20 [facility] Laboratory - Hematology and Cell countson 01-08-2022 HbA1c (Bld) [Mass fraction] 8.1 % 4.2-6.3 [facility] No Panel InformationOrdered By: Dr. Ashton on 01-08-2022 Estimated GFR (MDRD) Amer 66 mL/min >60 [facility] Comment on above: GFR Calc Estimated GFR (MDRD) Non-Af Amer 54 mL/min >60 [facility] Comment on above: Non- GFR Calc Urine Microalbumin/Creatinine Ratio 193.6 mg/g CRE <30 [facility] Serum or plasma albumin darell urement (mass/volume)Ordered By: Dr. Ashton on 01-08-2022 Albumin [Mass/Vol] 4.0 g/dL 3.2-5.[address] [facility] Serum or plasma albumin/glob ulin mass ratioOrdered By: Dr. Ashton on 01-08-2022 Albumin/Globulin [Mass ratio] 1.0 {ratio} 0.9-2.4 [facility] Serum or plasma calcium darell urement (mass/volume)Ordered By: Dr. Ashton on 01-08-2022 Calcium [Mass/Vol] 9.3 mg/dL 8.5-10.[address] [facility] Serum or plasma cholesterol in HDL measurement (mass/volume)Ordered By: Dr. Ashton on 01-08-2022 Cholesterol in HDL [Mass/Vol] 34 mg/dL >40 [facility] Comment on above: The drugs N-Acetylcy steine and Metamizole may falsely depress this assay. Reference Range HDL <40 mg/dL Low HDL Cholesterol HDL >or= 60 mg/dL High HDL Cholesterol Serum or plasma cholesterol in VLDL measurement (mass/volume)Ordered By: Dr. Ashton on 01-08-2022 Cholesterol in VLDL [Mass/Vol] 46 mg/dL 5-40 [facility] Serum or plasma creatinine m easurement (mass/volume)Ordered By: Dr. Ashton on 01-08-2022 Creatinine [Mass/Vol] 1.34 mg/dL 0.70-1.30 [facility] Comment on above: The validity of the calculated GFR & GFRAA in patients over 70 years has not been determined. Clinical correlation is essential. Serum or plasma low density lipoprotein (LDL) cholesterol measurement (mass/volume)Ordered By: Dr. Ashton on 01-08-2022 Cholesterol in LDL [Mass/Vol] 42 mg/dL 0-130 [facility] Serum or plasma urea nitroge n measurement (mass/volume)Ordered By: Dr. Ashton on 01-08-2022 Urea nitrogen [Mass/Vol] 17 mg/dL 7-18 [facility] Thin prep Papanicolaou smear with manual screeningOrdered By: Dr. Ashton on 01-08-2022 Thin prep Papanicolaou smear with manual screening 24 U/L 15-37 [facility] Thin prep Papanicolaou smear with manual screening 10 5-15 [facility] Thin prep Papanicolaou smear with manual screening 242.0 mg/L NO RANGE EST. [facility] Urine creatinine measurement (mass/volume)Ordered By: Dr. Ashton on 01-08-2022 Creatinine (U) [Mass/Vol] 125.00 mg/dL NO RANGE EST. [facility] - Hematology and Cell countson 10-30-2021 HbA1c (Bld) [Mass fraction] 8.5 % 4.2-6.3 [facility] Work Phone: Laboratory - Microbiology an d Antimicrobial susceptibilityon 09-12-2021 SARS-CoV-2 (COVID-19) RNA HEAVEN+probe Ql (Unsp spec) Not detected Not Detect [facility] Work Phone: Comment on above: [...] HbA1c (Bld) [Mass fraction] 8.0 % 4.2-6.3 [facility] Work Phone: Laboratory - Microbiology an d Antimicrobial susceptibilityon 05-10-2021 SARS-CoV-2 (COVID-19) RNA HEAVEN+probe Ql (Unsp spec) Not detected Not Detect [facility] Work Phone: Comment on above: [...] 03-20-2021 Free T4 [Mass/Vol] 1.15 ng/dL 0.76-1.[address] [facility] Work Phone: Laboratory - Hematology and Cell countson 03-20-2021 HbA1c (Bld) [Mass fraction] 8.4 % [facility] Work Phone: No Panel Informationon 03-20 Thyroid Stimulating Hormone (TSH) 2.98 uIU/mL 0.358-3.74 [facility] Work Phone: A1Con 04-15-2017 Hemoglobin A1c/Hemoglobin.total mass fraction (Bld) 7.5 % High 4.8-5.9 [facility] ([place]) Comment on above: Performed By: #### P SA, A1C ####[id number] [place], [place] [address] PSAon 04-15-2017 Prostate Specific Antigen 3.03 ng/mL Normal 0.00-4.00 [facility] ([place]) Comment on above: Performed By: #### P SA, A1C ####[id number] [place], [place] [address] Vital Signs Date Time Vital Sign Value Performing Clinician Facility 01-02-2025 14:22-0500 Body height 182.[address] Luna Ashton DO Work Phone: [facility] 01-02-2025 14:22-0500 Body mass index (BMI) [Ratio] 23.6 kg/m2 Dr. Luna Ashton DO Work Phone: [facility] 01-02-2025 14:22-0500 Body temperature 97.7 [degF] Dr. Luna Ashton DO Work Phone: [facility] 01-02-2025 14:22-0500 Body weight 78.[address] Luna Ashton DO Work Phone: [facility] 01-02-2025 14:22-0500 Diastolic blood pressure 63 mm[Hg] Dr. Luna Ashton DO Work Phone: [facility] 01-02-2025 14:22-0500 Heart rate 76 /min Dr. Luna Ashton DO Work Phone: [facility] 01-02-2025 14:22-0500 Respiratory rate 16 /min Dr. Luna Ashton DO Work Phone: [facility] 01-02-2025 14:22-0500 SaO2% (BldA) [Mass fraction] 93 % Dr. Luna Ashton DO Work Phone: [facility] 01-02-2025 14:22-0500 Systolic blood pressure 131 mm[Hg] Dr. Luna Ashton DO Work Phone: [facility] 12-29-2024 10:33-0400 Body mass index (BMI) [Ratio] 23.6 kg/m2 Dr. Luna Ashton DO Work Phone: [facility] 12-29-2024 10:33-0400 Body temperature 97.3 [degF] Dr. Luna Ashton DO Work Phone: [facility] 12-29-2024 10:33-0400 Body weight 78.[address] Luna Ashton DO Work Phone: [facility] 12-29-2024 10:33-0400 Diastolic blood pressure 62 mm[Hg] Dr. Luna Ashton DO Work Phone: [facility] 12-29-2024 10:33-0400 Heart rate 82 /min Dr. Luna Ashton DO Work Phone: [facility] 12-29-2024 10:33-0400 Respiratory rate 16 /min Dr. Luna Ashton DO Work Phone: [facility] 12-29-2024 10:33-0400 SaO2% (BldA) [Mass fraction] 98 % Dr. Luna Ashton DO Work Phone: [facility] 12-29-2024 10:33-0400 Systolic blood pressure 130 mm[Hg] Dr. Luna Ashton DO Work Phone: [facility] 12-26-2024 09:01-0400 Body height 182.[address] Luna Ashton DO Work Phone: [facility] 12-26-2024 09:01-0400 Body temperature 98.6 [degF] Dr. Luna Ashton DO Work Phone: [facility] 12-26-2024 09:01-0400 Diastolic blood pressure 71 mm[Hg] Dr. Luna Ashton DO Work Phone: [facility] 12-26-2024 09:01-0400 Heart rate 76 /min Dr. Luna Ashton DO Work Phone: [facility] 12-26-2024 09:01-0400 Respiratory rate 16 /min Dr. Luna Ashton DO Work Phone: [facility] 12-26-2024 09:01-0400 SaO2% (BldA) [Mass fraction] 93 % Dr. Luna Ashton DO Work Phone: [facility] 12-26-2024 09:01-0400 Systolic blood pressure 144 mm[Hg] Dr. Luna Ashton DO Work Phone: [facility] 12-19-2024 15:38-0400 Body temperature 96.3 [degF] Dr. Luna Ashton DO Work Phone: [facility] 12-19-2024 15:38-0400 Diastolic blood pressure 63 mm[Hg] Dr. Luna Ashton DO Work Phone: [facility] 12-19-2024 15:38-0400 Heart rate 56 /min Dr. Luna Ashton DO Work Phone: [facility] 12-19-2024 15:38-0400 Respiratory rate 16 /min Dr. Luna Ashton DO Work Phone: [facility] 12-19-2024 15:38-0400 Systolic blood pressure 144 mm[Hg] Dr. Luna Ashton DO Work Phone: [facility] 12-19-2024 14:38-0400 SaO2% (BldA) [Mass fraction] 94 % Dr. Luna Ashton DO Work Phone: [facility] 12-19-2024 12:12-0400 Body mass index (BMI) [Ratio] 23 kg/m2 Dr. Luna Ashton DO Work Phone: [facility] 12-19-2024 12:12-0400 Body temperature 97.6 [degF] Dr. Luan Ashton DO Work Phone: [facility] 12-19-2024 12:12-0400 Body weight 77.[address] Luna Ashton DO Work Phone: [facility] 12-19-2024 12:12-0400 Diastolic blood pressure 67 mm[Hg] Dr. Luna Ashton DO Work Phone: [facility] 12-19-2024 12:12-0400 Heart rate 63 /min Dr. Luna Ashton DO Work Phone: [facility] 12-19-2024 12:12-0400 Respiratory rate 18 /min Dr. Luna Ashton DO Work Phone: [facility] 12-19-2024 12:12-0400 SaO2% (BldA) [Mass fraction] 91 % Dr. Luna Ashton DO Work Phone: [facility] 12-19-2024 12:12-0400 Systolic blood pressure 138 mm[Hg] Dr. Luna Ashton DO Work Phone: [facility] 12-14-2024 14:40-0400 Body temperature 97.8 [degF] Dr. Luna Ashton DO Work Phone: [facility] 12-14-2024 14:40-0400 Diastolic blood pressure 70 mm[Hg] Dr. Luna Ashton DO Work Phone: [facility] 12-14-2024 14:40-0400 Heart rate 79 /min Dr. Luna Ashton DO Work Phone: [facility] 12-14-2024 14:40-0400 Respiratory rate 18 /min Dr. Luna Ashton DO Work Phone: [facility] 12-14-2024 14:40-0400 SaO2% (BldA) [Mass fraction] 92 % Dr. Luna Ashton DO Work Phone: [facility] 12-14-2024 14:40-0400 Systolic blood pressure 122 mm[Hg] Dr. Luna Ashton DO Work Phone: [facility] 12-12-2024 17:28-0400 Body temperature 98 [degF] Dr. Luna Ashton DO Work Phone: [facility] 12-12-2024 17:28-0400 Diastolic blood pressure 75 mm[Hg] Dr. Luna Ashton DO Work Phone: [facility] 12-12-2024 17:28-0400 Heart rate 86 /min Dr. Luna Ashton DO Work Phone: [facility] 12-12-2024 17:28-0400 Respiratory rate 17 /min Dr. Luna Ashton DO Work Phone: [facility] 12-12-2024 17:28-0400 SaO2% (BldA) [Mass fraction] 92 % Dr. Luna Ashton DO Work Phone: [facility] 12-12-2024 17:28-0400 Systolic blood pressure 133 mm[Hg] Dr. Luna Ashton DO Work Phone: [facility] 12-12-2024 11:40-0400 Inhaled oxygen flow rate 2 L/min Dr. Luna Ashton DO Work Phone: [facility] 12-12-2024 05:12-0400 Body mass index (BMI) [Ratio] 23.4 kg/m2 Dr. Luna Ashton DO Work Phone: [facility] 12-12-2024 05:12-0400 Body weight 78.[address] Luna Ashton DO Work Phone: [facility] 12-09-2024 10:00-0400 Inhaled oxygen concentration 58 % Dr. Luna Ashton DO Work Phone: [facility] 12-05-2024 09:05-0400 Body temperature 97.3 [degF] Dr. Luna Ashton DO Work Phone: [facility] 12-05-2024 09:05-0400 Diastolic blood pressure 69 mm[Hg] Dr. Luna Ashton DO Work Phone: [facility] 12-05-2024 09:05-0400 Heart rate 77 /min Dr. Luna Ashton DO Work Phone: [facility] 12-05-2024 09:05-0400 Respiratory rate 18 /min Dr. Luna Ashton DO Work Phone: [facility] 12-05-2024 09:05-0400 SaO2% (BldA) [Mass fraction] 96 % Dr. Luna Ashton DO Work Phone: [facility] 12-05-2024 09:05-0400 Systolic blood pressure 146 mm[Hg] Dr. Luna Ashton DO Work Phone: [facility] 12-05-2024 02:58-0400 Body mass index (BMI) [Ratio] 23 kg/m2 Dr. Luna Ashton DO Work Phone: [facility] 12-05-2024 02:58-0400 Body weight 76.[address] Luna Ashton DO Work Phone: [facility] 12-04-2024 12:01-0400 Body height 182.[address] Luna Ashton DO Work Phone: [facility] 11-23-2024 10:48-0400 Body height 182.[address] Luna Ashton DO Work Phone: [facility] 11-23-2024 10:48-0400 Body mass index (BMI) [Ratio] 23 kg/m2 Dr. Luna Ashton DO Work Phone: [facility] 11-23-2024 10:48-0400 Body temperature 97.9 [degF] Dr. uLna Ashton DO Work Phone: [facility] 11-23-2024 10:48-0400 Body weight 77.[address] Luna Ashton DO Work Phone: [facility] 11-23-2024 10:48-0400 Diastolic blood pressure 84 mm[Hg] Dr. Luna Ashton DO Work Phone: [facility] 11-23-2024 10:48-0400 Heart rate 90 /min Dr. Luna Ashton DO Work Phone: [facility] 11-23-2024 10:48-0400 Respiratory rate 16 /min Dr. Luna Ashton DO Work Phone: [facility] 11-23-2024 10:48-0400 SaO2% (BldA) [Mass fraction] 98 % Dr. Luna Ashton DO Work Phone: [facility] 11-23-2024 10:48-0400 Systolic blood pressure 152 mm[Hg] Dr. Luna Ashton DO Work Phone: [facility] 11-15-2024 12:10-0400 Body height 182.[address] Luna Ashton DO Work Phone: [facility] 11-15-2024 12:10-0400 Body mass index (BMI) [Ratio] 23.7 kg/m2 Dr. Luna Ashton DO Work Phone: [facility] 11-15-2024 12:10-0400 Body temperature 97.6 [degF] Dr. Luna Ashton DO Work Phone: [facility] 11-15-2024 12:10-0400 Body weight 79.[address] Luna Ashton DO Work Phone: [facility] 11-15-2024 12:10-0400 Diastolic blood pressure 68 mm[Hg] Dr. Luna Ashton DO Work Phone: [facility] 11-15-2024 12:10-0400 Heart rate 100 /min Dr. Luna Ashton DO Work Phone: [facility] 11-15-2024 12:10-0400 SaO2% (BldA) [Mass fraction] 97 % Dr. Luna Ashton DO Work Phone: [facility] 11-15-2024 12:10-0400 Systolic blood pressure 148 mm[Hg] Dr. Luna Ashton DO Work Phone: [facility] 09-29-2024 14:17-0400 Body height 182.[address] Luna Ashton DO Work Phone: [facility] 09-29-2024 14:17-0400 Body mass index (BMI) [Ratio] 23.7 kg/m2 Dr. Luna Ashton DO Work Phone: [facility] 09-29-2024 14:17-0400 Body temperature 97.5 [degF] Dr. Luna Ashton DO Work Phone: [facility] 09-29-2024 14:17-0400 Body weight 79.[address] Luna Ashton DO Work Phone: [facility] 09-29-2024 14:17-0400 Diastolic blood pressure 60 mm[Hg] Dr. Luna Ashton DO Work Phone: [facility] 09-29-2024 14:17-0400 Heart rate 66 /min Dr. Luna Ashton DO Work Phone: [facility] 09-29-2024 14:17-0400 Respiratory rate 16 /min Dr. Luna Ashton DO Work Phone: [facility] 09-29-2024 14:17-0400 SaO2% (BldA) [Mass fraction] 95 % Dr. Luna Ashton DO Work Phone: [facility] 09-29-2024 14:17-0400 Systolic blood pressure 120 mm[Hg] Dr. Luna Ashton DO Work Phone: [facility] 06-21-2024 09:37-0400 Body mass index (BMI) [Ratio] 24.1 kg/m2 Dr. Luna Ashton DO Work Phone: [facility] 06-21-2024 09:37-0400 Body temperature 96.7 [degF] Dr. Luna Ashton DO Work Phone: [facility] 06-21-2024 09:37-0400 Body weight 80.[address] Luna Ashton DO Work Phone: [facility] 06-21-2024 09:37-0400 Diastolic blood pressure 68 mm[Hg] Dr. Luna Ashton DO Work Phone: [facility] 06-21-2024 09:37-0400 Heart rate 76 /min Dr. Luna Ashton DO Work Phone: [facility] 06-21-2024 09:37-0400 Respiratory rate 16 /min Dr. Luna Ashton DO Work Phone: [facility] 06-21-2024 09:37-0400 SaO2% (BldA) [Mass fraction] 95 % Dr. Luna Ashton DO Work Phone: [facility] 06-21-2024 09:37-0400 Systolic blood pressure 134 mm[Hg] Dr. Luna Ashton DO Work Phone: [facility] 12-10-2022 10:05-0400 Body height 182.[address] Luna Ashton Work Phone: [facility] 12-10-2022 10:05-0400 Body mass index (BMI) [Ratio] 22.9 kg/m2 Dr. Luna Ashton Work Phone: [facility] 12-10-2022 10:05-0400 Body temperature 98.5 [degF] Dr. Luna Ashton Work Phone: [facility] 12-10-2022 10:05-0400 Body weight 76.[address] Luna Ashton Work Phone: [facility] 12-10-2022 10:05-0400 Diastolic blood pressure 80 mm[Hg] Dr. Luna Ashton Work Phone: [facility] 12-10-2022 10:05-0400 Heart rate 74 /min Dr. Luna Ashton Work Phone: [facility] 12-10-2022 10:05-0400 Respiratory rate 16 /min Dr. Luna Ashton Work Phone: [facility] 12-10-2022 10:05-0400 SaO2% (BldA) [Mass fraction] 96 % Dr. Luna Ashton Work Phone: [facility] 12-10-2022 10:05-0400 Systolic blood pressure 154 mm[Hg] Dr. Luna Ashton Work Phone: [facility] 11-11-2022 09:38-0400 Body mass index (BMI) [Ratio] 23.1 kg/m2 Dr. Luna Ashton Work Phone: [facility] 11-11-2022 09:38-0400 Body temperature 95.6 [degF] Dr. Luna Ashton Work Phone: [facility] 11-11-2022 09:38-0400 Body weight 77.[address] Luna Ashton Work Phone: [facility] 11-11-2022 09:38-0400 Diastolic blood pressure 76 mm[Hg] Dr. Luna Ashton Work Phone: [facility] 11-11-2022 09:38-0400 Heart rate 70 /min Dr. Luna Ashton Work Phone: [facility] 11-11-2022 09:38-0400 Respiratory rate 18 /min Dr. Luna Ashton Work Phone: [facility] 11-11-2022 09:38-0400 SaO2% (BldA) [Mass fraction] 99 % Dr. Luna Ashton Work Phone: [facility] 11-11-2022 09:38-0400 Systolic blood pressure 132 mm[Hg] Dr. Luna Ashton Work Phone: [facility] 07-01-2022 08:40-0400 Body height 182.[address] Luna Ashton Work Phone: [facility] 07-01-2022 08:40-0400 Body mass index (BMI) [Ratio] 23.5 kg/m2 Dr. Luna Ashton Work Phone: [facility] 07-01-2022 08:40-0400 Body temperature 96 [degF] Dr. Luna Ashton Work Phone: [facility] 07-01-2022 08:40-0400 Body weight 78.[address] Luna Ashton Work Phone: [facility] 07-01-2022 08:40-0400 Diastolic blood pressure 80 mm[Hg] Dr. Luna Ashton Work Phone: [facility] 07-01-2022 08:40-0400 Heart rate 63 /min Dr. Luna Ashton Work Phone: [facility] 07-01-2022 08:40-0400 Respiratory rate 18 /min Dr. Luna Ashton Work Phone: [facility] 07-01-2022 08:40-0400 SaO2% (BldA) [Mass fraction] 99 % Dr. Luna Ashton Work Phone: [facility] 07-01-2022 08:40-0400 Systolic blood pressure 138 mm[Hg] Dr. Luna Ashton Work Phone: [facility] 04-03-2022 08:33-0500 Body height 182.[address] Luna Ashton Work Phone: [facility] 04-03-2022 08:33-0500 Body mass index (BMI) [Ratio] 23.6 kg/m2 Dr. Luna Ashton Work Phone: [facility] 04-03-2022 08:33-0500 Body temperature 96.3 [degF] Dr. Luna Ashton Work Phone: [facility] 04-03-2022 08:33-0500 Body weight 78.[address] Luna Ashton Work Phone: [facility] 04-03-2022 08:33-0500 Diastolic blood pressure 74 mm[Hg] Dr. Luna Ashton Work Phone: [facility] 04-03-2022 08:33-0500 Heart rate 70 /min Dr. Luna Ashton Work Phone: [facility] 04-03-2022 08:33-0500 Respiratory rate 16 /min Dr. Luna Ashton Work Phone: [facility] 04-03-2022 08:33-0500 SaO2% (BldA) [Mass fraction] 98 % Dr. Luna Ashton Work Phone: [facility] 04-03-2022 08:33-0500 Systolic blood pressure 146 mm[Hg] Dr. Luna Ashton Work Phone: [facility] 10-30-2021 10:15-0400 Body height 180.[address] Luna Ashton Work Phone: [facility] Work Phone: 10-30-2021 10:15-0400 Body mass index (BMI) [Ratio] 24.7 kg/m2 Dr. Luna Ashton Work Phone: [facility] Work Phone: 10-30-2021 10:15-0400 Body temperature 96.3 [degF] Dr. Luna Ashton Work Phone: [facility] Work Phone: 10-30-2021 10:15-0400 Body weight 80.[address] Luna Ashton Work Phone: [facility] Work Phone: 10-30-2021 10:15-0400 Diastolic blood pressure 78 mm[Hg] Dr. Luna Ashton Work Phone: [facility] Work Phone: 10-30-2021 10:15-0400 Heart rate 65 /min Dr. Luna Ashton Work Phone: [facility] Work Phone: 10-30-2021 10:15-0400 Respiratory rate 18 /min Dr. Luna Ashton Work Phone: [facility] Work Phone: 10-30-2021 10:15-0400 SaO2% (BldA) [Mass fraction] 99 % Dr. Luna Ashton Work Phone: [facility] Work Phone: 10-30-2021 10:15-0400 Systolic blood pressure 144 mm[Hg] Dr. Luna Ashton Work Phone: [facility] Work Phone: 09-12-2021 09:31-0400 Diastolic blood pressure 70 mm[Hg] Dr. Luna Ashton Work Phone: [facility] Work Phone: 09-12-2021 09:31-0400 Systolic blood pressure 136 mm[Hg] Dr. Luna Ashton Work Phone: [facility] Work Phone: 09-12-2021 09:13-0400 Body height 180.[address] Luna Ashton Work Phone: [facility] Work Phone: 09-12-2021 09:13-0400 Body mass index (BMI) [Ratio] 24.5 kg/m2 Dr. Luna Ashton Work Phone: [facility] Work Phone: 09-12-2021 09:13-0400 Body temperature 98.1 [degF] Dr. Luna Ashton Work Phone: [facility] Work Phone: 09-12-2021 09:13-0400 Body weight 79.[address] Luna Ashton Work Phone: [facility] Work Phone: 09-12-2021 09:13-0400 Heart rate 69 /min Dr. Luna Ashton Work Phone: [facility] Work Phone: 09-12-2021 09:13-0400 Respiratory rate 16 /min Dr. Luna Ashton Work Phone: [facility] Work Phone: 09-12-2021 09:13-0400 SaO2% (BldA) [Mass fraction] 98 % Dr. Luna Ashton Work Phone: [facility] Work Phone: 08-07-2021 09:38-0400 Body mass index (BMI) [Ratio] 24.3 kg/m2 Dr. Luna Ashton Work Phone: [facility] Work Phone: 08-07-2021 09:38-0400 Body temperature 96.7 [degF] Dr. Luna Ashton Work Phone: [facility] Work Phone: 08-07-2021 09:38-0400 Body weight 78.[address] Luna Ashton Work Phone: [facility] Work Phone: 08-07-2021 09:38-0400 Diastolic blood pressure 72 mm[Hg] Dr. Luna Ashton Work Phone: [facility] Work Phone: 08-07-2021 09:38-0400 Heart rate 74 /min Dr. Luna Ashton Work Phone: [facility] Work Phone: 08-07-2021 09:38-0400 Respiratory rate 14 /min Dr. Luna Ashton Work Phone: [facility] Work Phone: 08-07-2021 09:38-0400 SaO2% (BldA) [Mass fraction] 99 % Dr. Luna Ashton Work Phone: [facility] Work Phone: 08-07-2021 09:38-0400 Systolic blood pressure 140 mm[Hg] Dr. Luna Ashton Work Phone: [facility] Work Phone: 06-19-2021 08:36-0400 Body mass index (BMI) [Ratio] 24.3 kg/m2 Dr. Luna Ashton Work Phone: [facility] Work Phone: 06-19-2021 08:36-0400 Body temperature 95.1 [degF] Dr. Luna Ashton Work Phone: [facility] Work Phone: 06-19-2021 08:36-0400 Body weight 79.[address] Luna Ashton Work Phone: [facility] Work Phone: 06-19-2021 08:36-0400 Diastolic blood pressure 60 mm[Hg] Dr. Luna Ashton Work Phone: [facility] Work Phone: 06-19-2021 08:36-0400 Heart rate 61 /min Dr. Luna Ashton Work Phone: [facility] Work Phone: 06-19-2021 08:36-0400 Respiratory rate 18 /min Dr. Luna Ashton Work Phone: [facility] Work Phone: 06-19-2021 08:36-0400 SaO2% (BldA) [Mass fraction] 99 % Dr. Luna Ashton Work Phone: [facility] Work Phone: 06-19-2021 08:36-0400 Systolic blood pressure 112 mm[Hg] Dr. Luna Ashton Work Phone: [facility] Work Phone: 05-10-2021 08:44-0500 Body height 180.[address] Luna Ashton Work Phone: [facility] Work Phone: 05-10-2021 08:44-0500 Body mass index (BMI) [Ratio] 24.3 kg/m2 Dr. Luna Ashton Work Phone: [facility] Work Phone: 05-10-2021 08:44-0500 Body temperature 96.3 [degF] Dr. Luna Ashton Work Phone: [facility] Work Phone: 05-10-2021 08:44-0500 Body weight 78.[address] Luna Ashton Work Phone: [facility] Work Phone: 05-10-2021 08:44-0500 Diastolic blood pressure 72 mm[Hg] Dr. Luna Ashton Work Phone: [facility] Work Phone: 05-10-2021 08:44-0500 Heart rate 91 /min Dr. Luna Ashton Work Phone: [facility] Work Phone: 05-10-2021 08:44-0500 Respiratory rate 16 /min Dr. Luna Ashton Work Phone: [facility] Work Phone: 05-10-2021 08:44-0500 SaO2% (BldA) [Mass fraction] 99 % Dr. Luna Ashton Work Phone: [facility] Work Phone: 05-10-2021 08:44-0500 Systolic blood pressure 130 mm[Hg] Dr. Luna Ashton Work Phone: [facility] Work Phone: 03-27-2021 15:33-0500 Body temperature 96.7 [degF] Dr. Luna Ashton Work Phone: [facility] Work Phone: 03-27-2021 15:33-0500 Body weight 80.[address] Luna Asthon Work Phone: [facility] Work Phone: 03-27-2021 15:33-0500 Diastolic blood pressure 78 mm[Hg] Dr. Luna Ashton Work Phone: [facility] Work Phone: 03-27-2021 15:33-0500 Heart rate 67 /min Dr. Luna Ashton Work Phone: [facility] Work Phone: 03-27-2021 15:33-0500 Respiratory rate 16 /min Dr. Luna Ashton Work Phone: [facility] Work Phone: 03-27-2021 15:33-0500 SaO2% (BldA) [Mass fraction] 99 % Dr. Luna Ashton Work Phone: [facility] Work Phone: 03-27-2021 15:33-0500 Systolic blood pressure 130 mm[Hg] Dr. Luna Ashton Work Phone: [facility] Work Phone: 03-20-2021 09:33-0500 Body mass index (BMI) [Ratio] 24.3 kg/m2 Dr. Luna Ashton Work Phone: [facility] Work Phone: 03-20-2021 09:33-0500 Body temperature 96 [degF] Dr. Luna Ashton Work Phone: [facility] Work Phone: 03-20-2021 09:33-0500 Body weight 78.[address] Luna Ashton Work Phone: [facility] Work Phone: 03-20-2021 09:33-0500 Diastolic blood pressure 70 mm[Hg] Dr. Luna Ashton Work Phone: [facility] Work Phone: 03-20-2021 09:33-0500 Heart rate 62 /min Dr. Luna Ashton Work Phone: [facility] Work Phone: 03-20-2021 09:33-0500 Respiratory rate 16 /min Dr. Luna Ashton Work Phone: [facility] Work Phone: 03-20-2021 09:33-0500 SaO2% (BldA) [Mass fraction] 99 % Dr. Luna Ashton Work Phone: [facility] Work Phone: 03-20-2021 09:33-0500 Systolic blood pressure 128 mm[Hg] Dr. Luna Ashton Work Phone: [facility] Work Phone: Encounters Encounter Date Encounter Type Care Provider Facility Start: 01-09-2025 End: 01-09-2025 ambulatory Renay Daya [employer] Facility:[facility] Start: 01-02-2025 End: 01-02-2025 ambulatory Luna Ashton Facility:[facility] Start: 12-29-2024 End: 12-29-2024 ambulatory Luna Ashton Facility:[facility] Start: 12-26-2024 End: 12-26-2024 ambulatory Luna Ashton Facility:[facility] Start: 12-19-2024 End: 12-19-2024 Dr. Adalid King MD -[facility] Work Phone: Start: 12-19-2024 End: 12-19-[address] Luna Ashton DO Work Phone: -[facility] Start: 12-14-2024 ambulatory Renaypawel Stapleton [employer] Facil ity:[facility] Start: 12-14-2024 End: 12-14-2024 Dr. Adalid King MD -[facility] Work Phone: Start: 12-14-2024 End: 12-14-[address] Luna Ashton DO Work Phone: [facility] Start: 12-12-2024 Dr. Suraj Paz MD [facility] Work Phone: Start: 12-11-2024 Dr. Suraj Paz MD [facility] Work Phone: Start: 12-10-2024 Dr. Suraj Paz MD [facility] Work Phone: Start: 12-09-2024 ambulatory Luna Ashton Facilit y:[facility] Start: 12-09-2024 Dr. Vamsi Sams MD [facility] Start: 12-09-2024 Dr. Claire Mazariegos MD [facility] Work Phone: Start: 12-08-2024 Dr. Claire Mazariegos MD [facility] Work Phone: Start: 12-08-2024 Dr. Vamsi Sams MD [facility] Work Phone: Start: 2024 Dr. Claire Mazariegos MD [facility] Work Phone: Start: 2024 Susan Sprague -A Start: 2024 Dr. Homer Grey MD [facility] Work Phone: Start: 12-06-2024 Dr. Claire Mazariegos MD [facility] Work Phone: Start: 12-06-2024 Dr. Henry Sprague -A Start: 12-06-2024 Dr. Homer Grey MD [facility] Work Phone: Start: 12-05-2024 Dr. Henry Sprague -A Start: 12-05-2024 Non-patient / Non-visit Dr. Claire Mazariegos MD [facility] Work Phone: Start: 12-05-2024 Dr. Claire Mazariegos MD [facility] Health - [facility] ady Inpatient Physicians Work Phone: Start: 12-04-2024 Non-patient / Non-visit Dr. Claire Mazariegos MD -[facility] Work Phone: Start: 12-04-2024 Dr. Claire Mazariegos MD -[facility] Inpatient Physicians Work Phone: Start: 12-03-2024 ambulatory Alyssia Dee ity:[facility] Start: 12-03-2024 End: 12-12-2024 Evaluation and management of inpatient Dr. Claire Mazariegos MD -[facility] Unit Work Phone: Start: 12-03-2024 End: 12-12-2024 Dr. Suraj Paz MD -[facility] Work Phone: Start: 11-25-2024 End: 11-25-[address] Luna Ashton DO Work Phone: -[facility] Start: 11-25-2024 End: 11-25-[address] Luna Judge DO -[facility] Work Phone: Start: 11-25-2024 End: 11-25-2024 Dr. Luna Judge DO -[facility] Work Phone: Start: 11-25-2024 End: 11-25-2024 ambulatory Luna Ashton Facility:[facility] Start: 11-23-2024 End: 11-23-[address] Luna Judge DO -[facility] Work Phone: Start: 11-23-2024 End: 11-23-2024 Dr. Luna Judge DO -[facility] Work Phone: Start: 11-23-2024 End: 11-23-[address] Luna Ashton DO Work Phone: -[facility] Start: 11-15-2024 End: 11-15-2024 Patient encounter procedure Victor M Gates [place] -[facility] Work Phone: Start: 11-15-2024 End: 11-15-2024 Victor M LEROY [facility] Work Phone: Start: 11-15-2024 End: 11-15-[address] Luna Ashton DO Work Phone: -[facility] Start: 11-15-2024 End: 11-15-2024 ambulatory Victor M LEROY Facility:[facility] Start: 10-19-2024 ambulatory Luna Ashton Facilit y:[facility] Start: 10-19-2024 Non-patient / Non-visit Dr. Homer Grey MD -[facility] Start: 10-19-2024 Dr. Homer Grey MD [facility] Start: 10-19-2024 End: 10-19-[address] Luna Ashton DO Work Phone: -Cardiovascular Services Start: 10-19-2024 End: 10-19-[address] Luna Judge DO -Cardiovascular Services Work Phone: Start: 10-19-2024 End: 10-19-2024 Dr. Luna Judge DO -Cardiovascular Services Work Phone: Start: 10-19-2024 End: 10-19-2024 ambulatory Luna Ashton Facility:[facility] Start: 10-04-2024 End: 10-04-[address] Luna Ashton DO Work Phone: -Ultrasound [facility] Start: 10-04-2024 End: 10-04-[address] Luna Judge DO -Ultrasound [facility] Work Phone: Start: 10-04-2024 End: 10-04-2024 Dr. Luna Judge DO -Ultrasound [facility] Work Phone: Start: 10-04-2024 End: 10-04-2024 ambulatory Luna Ashton Facility:[facility] Start: 09-29-2024 End: 09-29-[address] Luna Judge DO -[facility] Work Phone: Start: 09-29-2024 End: 09-29-2024 Dr. Luna Judge DO -[facility] Work Phone: Start: 09-29-2024 End: 09-29-[address] Luna Ashton DO Work Phone: [facility] Internal [facility] Start: 06-21-2024 End: 06-21-[address] Luna Judge DO -[facility] Work Phone: Start: 06-21-2024 End: 06-21-2024 ambulatory Luna Ashton Facility:[facility] Start: 03-22-2024 End: 03-22-2024 ambulatory Luna Ashton Facility:[facility] Start: 03-22-2024 End: 03-22-2024 ambulatory Luna Ashton Facility:[facility] Start: 12-10-2022 End: 12-10-[address] Luna Ashton Work Phone: [facility] Work Phone: Start: 12-10-2022 End: 12-10-[address] Luna Ashton Work Phone: [facility] Work Phone: Start: 11-11-2022 End: 11-11-[address] Luna Ashton Work Phone: [facility] Work Phone: Start: 07-01-2022 End: 07-01-[address] Luna Ashton Work Phone: [facility] Work Phone: Start: 07-01-2022 End: 07-01-[address] Luna Ashton Work Phone: [facility] Internal Medicine Start: 04-03-2022 End: 04-03-[address] Luna Ashton Work Phone: [facility] Work Phone: Start: 04-03-2022 End: 04-03-[address] Luna Ashton Work Phone: [facility] Start: 01-08-2022 End: 01-08-[address] Luna Ashton Work Phone: [facility] Work Phone: Start: 01-08-2022 End: 01-08-[address] Luna Ashton Work Phone: [facility] Internal [facility] Start: 10-30-2021 End: 10-30-[address] Luna Ashton Work Phone: [facility] Start: 09-12-2021 End: 09-12-[address] Luna Ashton Work Phone: [facility] Start: 08-14-2021 End: 08-14-[address] Luna Ashton Work Phone: [facility] Start: 08-07-2021 End: 08-07-[address] Luna Ashton Work Phone: [facility] Start: 06-19-2021 End: 06-19-[address] Luna Ashton Work Phone: [facility] Internal [facility] Start: 05-10-2021 End: 05-10-[address] [facility] Start: 03-27-2021 End: 03-27-[address] Luna Ashton Work Phone: [facility] Internal [facility] Start: 03-20-2021 End: 03-20-[address] Luna sAhton Work Phone: [facility] Start: 04-15-2017 End: 04-16-2017 Ambulatory LUNA ASHTON Facility:[facility] Procedures Date Procedure Procedure Detail Performing Clinician [...] Activity Detail Author Start: 01-16-2025 Serum immunofixation [facility] Start: 01-16-2025 [facility] Start: 01-09-2025 [facility] Start: 01-02-2025 End: 01-02-2025 [facility] Start: 12-29-2024 End: 12-29-2024 -[facility] Work Phone: Start: 12-26-2024 End: 12-26-2024 -[facility] Work Phone: Start: 12-19-2024 Administration of blood product [facility] Start: 12-19-2024 [facility] Start: 12-19-2024 End: 12-19-2024 -[facility] Work Phone: Start: 12-19-2024 Disease process or condition education [facility] Start: 12-12-2024 Patient discharge [facility] Start: 12-12-2024 Administration of blood product [facility] Start: 12-12-2024 Referral to service [facility] Start: 12-12-2024 Removal of urinary catheter [facility] Start: 12-11-2024 Complete blood count [facility] Start: 12-10-2024 Care of hemodialysis equipment [facility] Start: 12-10-2024 Hemodialysis care [facility] Start: 12-10-2024 [facility] Start: 12-10-2024 Complete blood count [facility] Start: 12-09-2024 End: 12-10-2024 [facility] Start: 12-09-2024 Catheterization of vein [facility] Start: 12-09-2024 Oxygen therapy [facility] Start: 12-09-2024 Vital signs measurements [facility] Start: 12-09-2024 Administration of blood product [facility] Start: 12-09-2024 Care of hemodialysis equipment [facility] Start: 12-09-2024 Hemodialysis care [facility] Start: 12-09-2024 Complete blood count [facility] Start: 12-08-2024 Consultation [facility] Start: 12-08-2024 Care of hemodialysis equipment [facility] Start: 12-08-2024 Hemodialysis care [facility] Start: 12-08-2024 [facility] Start: 12-08-2024 Complete blood count [facility] Start: 12-08-2024 Continuous positive airway pressure ventilation treatment [facility] Start: 2024 Care of hemodialysis equipment [facility] Start: 2024 Hemodialysis care [facility] Start: 2024 End: 2024 [facility] Start: 2024 Complete blood count [facility] Start: 12-06-2024 [facility] Start: 12-06-2024 Complete blood count [facility] Start: 12-06-2024 Inhalation therapy procedure [facility] Start: 12-05-2024 Referral to general surgeon [facility] Start: 12-05-2024 [facility] Start: 12-04-2024 [facility] Start: 12-03-2024 [facility] Start: 12-03-2024 Serum immunofixation [facility] Start: 12-03-2024 Urine protein electrophoresis [facility] Start: 12-03-2024 Application of intermittent pneumatic compression device [facility] Start: 12-03-2024 End: 12-03-2024 Following clinical pathway protocol [facility] Start: 12-03-2024 Assessment of risk of venous thromboembolism [facility] Start: 12-03-2024 Care regimes management [facility] Start: 12-03-2024 Insertion of catheter into peripheral vein [facility] Start: 12-03-2024 Measuring intake and output [facility] Start: 12-03-2024 Notification of physician [facility] Start: 12-03-2024 Providing care according to standard [facility] Start: 12-03-2024 Provision of activity privileges [facility] Start: 12-03-2024 Referral for physical therapy [facility] Start: 12-03-2024 Referral to meat counter worker [facility] Start: 12-03-2024 Referral to occupational therapist [facility] Start: 12-03-2024 Referral to service [facility] Start: 12-03-2024 End: 12-03-2024 [facility] Start: 12-03-2024 Verification routine [facility] Start: 12-03-2024 Admission procedure [facility] Start: 12-03-2024 Urine culture Urine Culture [facility] Start: 12-03-2024 Patient referral to dietitian [facility] Start: 11-25-2024 MRI of lumbar spine Spine Lumbar (Routine) [facility] Start: 11-25-2024 Patient encounter procedure Registered Clinical -MRI - [facility] Work Phone: Albumin [Moles/volum e] in Serum or Plasma [facility] Albumin/Globulin ratio [facility] Anion gap in Serum o r Plasma [facility] Anion gap in Serum o r Plasma [facility] Anion gap in Serum o r Plasma [facility] Anion gap in Serum o r Plasma [facility] Anion gap in Serum o r Plasma [facility] Anion gap in Serum o r Plasma [facility] BUN/Creatinine ratio [facility] BUN/Creatinine ratio [facility] BUN/Creatinine ratio [facility] BUN/Creatinine ratio [facility] BUN/Creatinine ratio [facility] BUN/Creatinine ratio [facility] Calcium [Mass/volume ] in Serum or Plasma [facility] Calcium [Mass/volume ] in Serum or Plasma [facility] Calcium [Mass/volume ] in Serum or Plasma [facility] Calcium [Mass/volume ] in Serum or Plasma [facility] Calcium [Mass/volume ] in Serum or Plasma [facility] Calcium [Mass/volume ] in Serum or Plasma [facility] Carbon dioxide, tota l [Moles/volume] in Central venous blood [facility] Carbon dioxide, tota l [Moles/volume] in Central venous blood [facility] Carbon dioxide, tota l [Moles/volume] in Central venous blood [facility] Carbon dioxide, tota l [Moles/volume] in Central venous blood [facility] Carbon dioxide, tota l [Moles/volume] in Central venous blood [facility] Carbon dioxide, tota l [Moles/volume] in Central venous blood [facility] Cardiovascular stres s testing [facility] CBC W Auto Different ial panel - Blood [facility] CBC W Auto Different ial panel - Blood [facility] Complement C3 [Mass/ volume] in Serum or Plasma [facility] Complement C4 [Mass/ volume] in Serum or Plasma [facility] Comprehensive metabo lic 2000 panel - Serum or Plasma [facility] Creatinine [Mass/vol ume] in Serum or Plasma [facility] Creatinine [Mass/vol ume] in Serum or Plasma [facility] Creatinine [Mass/vol ume] in Serum or Plasma [facility] Creatinine [Mass/vol ume] in Serum or Plasma [facility] Creatinine [Mass/vol ume] in Serum or Plasma [facility] Creatinine [Mass/vol ume] in Serum or Plasma [facility] CT Abdomen W contrast IV [facility] DNA double strand Ab [Units/volume] in Serum [facility] Electrophoresis: [id number] [facility] Electrophoresis: bashir ma globulin [facility] Erythrocyte mean corpuscular volume determination [facility] Erythrocyte mean corpuscular volume determination [facility] Erythrocyte mean corpuscular volume determination [facility] Erythrocyte mean corpuscular volume determination [facility] Erythrocyte mean corpuscular volume determination [facility] Erythrocyte mean corpuscular volume determination [facility] Fluid sample globulin level [facility] Globulin measurement [facility] Glomerular basement membrane Ab [Units/volume] in Serum [facility] Glucose [Mass/volume ] in Serum or Plasma [facility] Glucose [Mass/volume ] in Serum or Plasma [facility] Glucose [Mass/volume ] in Serum or Plasma [facility] Glucose [Mass/volume ] in Serum or Plasma [facility] Glucose [Mass/volume ] in Serum or Plasma [facility] Glucose [Mass/volume ] in Serum or Plasma [facility] Hematocrit [Volume Fraction] of Blood [facility] Hematocrit [Volume Fraction] of Blood [facility] Hematocrit [Volume Fraction] of Blood [facility] Hematocrit [Volume Fraction] of Blood [facility] Hematocrit [Volume Fraction] of Blood [facility] Hematocrit [Volume Fraction] of Blood [facility] Hemoglobin [Mass/vol ume] in Blood [facility] Hemoglobin [Mass/vol ume] in Blood [facility] Hemoglobin [Mass/vol ume] in Blood [facility] Hemoglobin [Mass/vol ume] in Blood [facility] Hemoglobin [Mass/vol ume] in Blood [facility] Hemoglobin [Mass/vol ume] in Blood [facility] IgA [Mass/volume] in Serum or Plasma [facility] IgG [Mass/volume] in Serum or Plasma [facility] IgM [Mass/volume] in Serum or Plasma [facility] [place]/lambda light c dax ratio [facility] Laboratory data interpretation [facility] Lambda light chains. free [Mass/volume] in Serum or Plasma [facility] Leukocytes [#/volume ] in Blood [facility] Leukocytes [#/volume ] in Blood [facility] Leukocytes [#/volume ] in Blood [facility] Leukocytes [#/volume ] in Blood [facility] Leukocytes [#/volume ] in Blood [facility] Leukocytes [#/volume ] in Blood [facility] Mean corpuscular hem oglobin concentration determination [facility] Mean corpuscular hem oglobin concentration determination [facility] Mean corpuscular hem oglobin concentration determination [facility] Mean corpuscular hem oglobin concentration determination [facility] Mean corpuscular hem oglobin concentration determination [facility] Mean corpuscular hem oglobin concentration determination [facility] Mean corpuscular hem oglobin determination [facility] Mean corpuscular hem oglobin determination [facility] Mean corpuscular hem oglobin determination [facility] Mean corpuscular hem oglobin determination [facility] Mean corpuscular hem oglobin determination [facility] Mean corpuscular hem oglobin determination [facility] Measurement of monoc lonal protein concentration [facility] Measurement of renal function [facility] Measurement of renal function [facility] Measurement of renal function [facility] Measurement of renal function [facility] Measurement of renal function [facility] Measurement of renal function [facility] MR Lumbar spine WO a nd W contrast IV [facility] Neutrophil cytoplasm ic Ab.classic [Units/volume] in Serum [facility] P-ANCA measurement [facility] Patient Education [facility] Work Phone: Platelets [#/volume] in Blood [facility] Platelets [#/volume] in Blood [facility] Platelets [#/volume] in Blood [facility] Platelets [#/volume] in Blood [facility] Platelets [#/volume] in Blood [facility] Platelets [#/volume] in Blood [facility] Potassium measurement [facility] Potassium measurement [facility] Potassium measurement [facility] Potassium measurement [facility] Potassium measurement [facility] Potassium measurement [facility] Protein [Mass/volume ] in Urine [facility] Protein electrophore sis panel - Serum or Plasma [facility] Protein measurement, urine W [facility] Red blood cell count [facility] Red blood cell count [facility] Red blood cell count [facility] Red blood cell count [facility] Red blood cell count [facility] Red blood cell count [facility] Red cell distributio n width determination [facility] Red cell distributio n width determination [facility] Red cell distributio n width determination [facility] Red cell distributio n width determination [facility] Red cell distributio n width determination [facility] Red cell distributio n width determination [facility] Serum chloride measurement [facility] Serum chloride measurement [facility] Serum chloride measurement [facility] Serum chloride measurement [facility] Serum chloride measurement [facility] Serum chloride measurement [facility] Sodium measurement [facility] Sodium measurement [facility] Sodium measurement [facility] Sodium measurement [facility] Sodium measurement [facility] Sodium measurement [facility] Urea nitrogen [Mass/ volume] in Serum or Plasma [facility] Urea nitrogen [Mass/ volume] in Serum or Plasma [facility] Urea nitrogen [Mass/ volume] in Serum or Plasma [facility] Urea nitrogen [Mass/ volume] in Serum or Plasma [facility] Urea nitrogen [Mass/ volume] in Serum or Plasma [facility] Urea nitrogen [Mass/ volume] in Serum or Plasma [facility] Urine albumin measurement [facility] Urine kappa light ch ain measurement [facility] US Gallbladder [facility] XR Lumbar spine 2 or 3 Views [facility] Work Phone: [facility] Immunizations Immunization Date Immunization Notes Care Provider [facility] 12-29-2024 Seasonal trivalent influenza vaccine, adjuvanted, preservative free Dr. Luna Ashton DO Work Phone: [facility] 10-31-2023 influenza, high dose seasonal, preservative-free Dr. Luna Ashton DO Work Phone: [facility] 10-31-2023 Pfizer Covid-19 (Comirnaty) Dr. Luna Ashton DO Work Phone: [facility] 02-05-2023 RSV Adult BiValent (Abrysvo) Dr. Luna Ashton DO Work Phone: [facility] 11-11-2022 influenza, injectabl e, quadrivalent, preservative free Dr. Luna Ashton Work Phone: [facility] 02-02-2021 Covid (Pfizer) Dr. Luna hollins Work Phone: [facility] 05-24-2020 Covid (Pfizer) Dr. Luna hollins Work Phone: [facility] 05-03-2020 Covid (Pfizer) Dr. Luna hollins Work Phone: [facility] 11-02-2019 Fluad Quad [id number](65yr up)(PF) 60 mcg (15 mcg x 4)/0.5mL IM syringe (flu vac Dr. Luna Ashton Work Phone: [facility] Work Phone: 01-12-2019 Fluad 2018- 65yr up(PF)45 mcg(15 mcgx3)/0.5 mL intramuscular syringe (flu vac Dr. Luna Ashton Work Phone: [facility] Work Phone: 11-18-[address] Luna Ashtno Work Phone: [facility] 11-18-2017 Dr. Luna collins DO Work Phone: [facility] 01-23-2009 novel influenza-H1N1 -09, preservative-free, injectable Dr. Luna Ashton Work Phone: [facility] 03-24-2003 TD(adult) unspecifie d formulation Dr. Luna Ashton Work Phone: [facility] Payers Date Payer Category Payer Medicare [id number] 2024 Medicare 2024 Self-pay [id number] 2024 Self-pay [id number] 2009 Unknown [id number] Medicare [id number] Unknown [id number] 2.16.8 40.1.451137.3.579.2.462 Unknown [id number] 2.16.8 40.1.786420.3.579.2.462 Unknown [id number] 2.16.8 40.1.495901.3.579.2.462 Unknown [id number] 2.16.8 40.1.945667.3.579.2.462 Unknown [id number] 2.16.8 40.1.974221.3.579.2.462 Unknown [id number] 2.16.8 40.1.002380.3.579.2.462 Unknown [id number] 2.16.8 40.1.175001.3.579.2.462 Unknown [id number] 2.16.8 40.1.406170.3.579.2.462 Unknown [id number] 2.16.8 40.1.986862.3.579.2.462 Unknown [id number] 2.16.8 40.1.238391.3.579.2.462 Unknown [id number] 2.16.8 40.1.984698.3.579.2.462 Unknown [id number] 2.16.8 40.1.484010.3.579.2.462 Unknown [id number] 2.16.8 40.1.370522.3.579.2.462 Unknown [id number] 2.16.8 40.1.601421.3.579.2.462 Unknown [id number] 2.16.8 40.1.549852.3.579.2.462 Unknown [id number] 2.16.8 40.1.415060.3.579.2.462 Unknown [id number] 2.16.8 40.1.387005.3.579.2.462 Unknown [id number] 2.16.8 40.1.710956.3.579.2.462 Unknown [id number] 2.16.8 40.1.564803.3.579.2.462 Unknown [id number] 2.16.8 40.1.216038.3.579.2.462 Unknown [id number] 2.16.8 40.1.809320.3.579.2.462 Unknown [id number] 2.16.8 40.1.916782.3.579.2.462 Unknown [id number] 2.16.8 40.1.026568.3.579.2.462 Unknown [id number] 2.16.8 40.1.545019.3.579.2.462 Unknown [id number] 2.16.8 40.1.356610.3.579.2.462 Unknown [id number] 2.16.8 40.1.547027.3.579.2.462 Unknown [id number] 2.16.8 40.1.168905.3.579.2.462 Unknown [id number] 2.16.8 40.1.690598.3.579.2.462 Unknown [id number] 2.16.8 40.1.225804.3.579.2.462 Unknown [id number] 2.16.8 40.1.221715.3.579.2.462 Unknown [id number] 2.16.8 40.1.579432.3.579.2.462 Unknown [id number] 2.16.8 40.1.373121.3.579.2.462 Unknown [id number] 2.16.8 40.1.359696.3.579.2.462 Unknown [id number] 2.16.8 40.1.560945.3.579.2.462 Unknown [id number] 2.16.8 40.1.053082.3.579.2.462 Social History Date Type Detail Facility Start: 05-10-2021 End: 12-10-2022 Tobacco smoking status MAIS Unknown if ever smoked [facility] Start: 1940 Sex Assigned At Male [facility] Start: 05-13-2023 End: 12-14-2024 Tobacco smoking status NHIS Ex-smoker (finding) [facility] Sex [facility] Start: 12-03-2024 Tobacco smoking stat us MAIS Never smoked tobacco (finding) [facility] Medical Equipment Procedure Code Equipment Code Equipment [...] Assessment Result Facility 12-12-2024 Functional status Ambulates [facility] Work Phone: 12-05-2024 Functional status Ambulates [facility] Work Phone: Mental Status Date Assessment Result Facility 12-12-2024 Cognitive function Voice/Name [facility] Work Phone: 12-05-2024 Cognitive function Voice/Name [facility] Work Phone: Clinical Notes 06-21-2024 to 12-19-2024 Note Date & Type Note Facility 12-19-2024 Progress note Note Date/Time December 19, 2024 1:44pm [facility] [facility] [address] [place] [address] OFFICE VISIT Date of Service: 12/19/24 1205 MR#: [id number] Acct: [id number] Name: LINA VARGAS Rep #: [id number] : 1940 From: Adalid arciniega MD Age/Sex: 84/M Location: [facility] Status: Signed HPI Subjective Date [...] IgA lambda 2.8 g per DL Free [place] LC, Quant 23.3 H Free Lambda LC, Quant 1177.7 H Free [place]/Lambda Ratio 0.02 L 2024 kidney biopsy: Light [...] for short acting insulin by Dr. Orozco. [facility] Medical History Type II diabetes mellitus Anemia [...] Calcium 14.6 H* OMERO M-David Comment: Free [place] LC, Quant Free Lambda LC, Quant Free [place]/Lambda Ratio 12/04/24 12/05/24 12/12/24 03:43 05:04 04:45 WBC 3.6 L Hgb 7.9 L Plt Count 147 L Creatinine 5.84 H Calcium 10.3 OMERO M-David Free [place] LC, Quant 23.3 H Free Lambda LC, Quant 1177.7 H Free [place]/Lambda Ratio 0.02 L Exam Physical Exam Narrative [...] impression and plan discussed. Adalid King MD [employer], [facility] Divisions of Medical Oncology & Hematology Department of Internal Medicine [place] [address] Insert dragon Clinical Quality Measures Falls Risk Screening/Assistive Devices Have you fallen in the past year?: No 12/19/24 1244 <Electronically signed by Adalid bustos MD> Date _ Adalid King MD [facility] Signature: Date (if applicable) CC: Dr. Luna Ashton, DO ~ [employer] Work Phone: [phone] Radiology Diagnostic study [facility]10-13-2025 Consult note Author Analia Arredondo [facility] Note Date/Time December 12, 2024 3 :44pm [facility] Medical Records Department [address] [place] [address] Counseling Note - Pharmacy 12/12/24 1543 MR#: [id number] Acct: [id number] Name: LINA VARGAS Rep #:[id number] : 1940 84 From: Analia Arredondo PCP: Dr. Luna Ashton, DO Status:AD M IN Y [facility] Counseling Pharmacy Service has performed [...] Signature (if applicable): Date CC: ~ Signed [facility] Work Phone: [phone] 403-368410-13-2025 Discharge summary Author Suraj Paz [facility] Note Date/Time December 12, 2024 3 :11pm [facility] Medical Records Department [address] [place] [address] Discharge Summary 12/12/24 1451 MR#: [id number] Acct: [id number] Name: LINA VARGAS Rep #:[id number] : 1940 84 From: Suraj mcclendon MD PCP: Dr. Luna Ashton, DO Status:[facility] Providers Date of Admission: 12/03/24 [...] 12/08/24 08:58 Consult: Oncology/Hematology Routine Consulting Provider: *[facility]) Reason for Consult: Cindy/Quiñones [...] of hypothyroidism, diabetes,GERD, hypertension who presented to [facility] ED 12/03/24 with nausea and vomiting. He [...] had 1300 output since admission yesterday evening. [place] lambda light chains ordered in addition to [...] w/ nausea and vomiting x 2-3 wks captain room service and inadequate energy intake Signs/Symptoms as evidenced by po intake meeting <75% of est nutritional needs and 3% unintended wt loss x 2-3 wks captain room service. Status Active Problem Recommendation Dietitian Will liberalize [...] (Auto) 45.2 L, Lymph % (Auto) 36.9, [place] % (Auto) 14.3 H, Eos % (Auto) [...] have received the pathology report from the [facility], if not, then the appointment will be rescheduled. Disposition Disposition (needs filled in before D/C Order can be placed): Home Health Service Charges/Coding Visit Charges Inpatient E&M: 02721 Disch Hosp >30min 12/12/24 1515 <Electronically signed by Suraj Paz MD> Cosigner Signature (if applicable): CC: Dr. Luna Ashton DO; Dr. Suraj Paz MD~ Signed [facility] Work Phone: 1(396) 286-942110-13-2025 Discharge summary Author Suraj Paz [facility] Note Date/Time December 12, 2024 1 :36pm [facility] Medical Records Department [address] [place] [address] Instructions for Home/Discharge Instructions 12/12/24 1325 MR#: [id number] Acct: [id number] Name: LINA VARGAS Rep #:[id number] : 1940 84 From: Suraj mcclendon MD [...] Lance; Rocco Barcenas; Renay Stapleton NP; Claire Mzaariegos Instructions Patient Instructions: ROSANA RN Bone Marrow [...] have received the pathology report from the [facility], if not, then the appointment will be rescheduled. Disposition Disposition (needs filled in before D/C Order can be placed): Home Health Service 12/12/24 7819<Electronically signed by Suraj Paz MD>Suraj Paz MD CC: MANJU Stapleton; Dr. Isauro Moran MD; Dr. Luna Ashton DO; Dr. Alyssia Bah MD; Dr. Ted Henderson MD; Dr. Elmer Orozco MD; Dr. Adalid King MD; Dr. Henry Evans MD; Dr. Claire Mazariegos MD; Dr. Srinivasa Boudreaux MD; Dr. Bismark Lance MD; Dr. Dev Dee MD; Dr. Rocco Barcenas, DO ~ Signed [facility] Work Phone: [phone]) 128-140510-13-2025 [facility]10-13-2025 Progress note Author Sukhdeep Juarez [facility] Note Date/Time December 12, 2024 7 :08pm [facility] Medical Records Department [address] [facility] [place] [address] Progress Note - Nephrology 12/12/24 1157 MR#: [id number] Acct: [id number] Name: LINA VARGAS Rep #:[id number] : 1940 84 From: Sukhdeep grier [employer] SUPERVISOR-C PCP: Dr. Luna Ashton DO Status:DI S IN Location: [place] [address] Subjective Subjective Sitting in chair. No complaints. [...] Freq: Status: Active Protocol: Document 12/04/24 12:[address] [facility] (Rec: 12/04/24 12:13 SLA 10..25.7) Nutrition Malnutrition Evidence of Yes Malnutrition Exists Malnutrition (severe Acute Illness/Injury ): Evidenced By Suboptimal Energy Intake (Severe),Weight Loss (Severe) Clinical Problem Acute Disease or Injury Related Malnutrition Etiology related to issues w/ nausea and vomiting x 2-3 wks captain room service and inadequate energy intake Signs/Symptoms as evidenced by po intake meeting <75% of est nutritional needs and 3% unintended wt loss x 2-3 wks captain room service. Status Active Problem Recommendation Dietitian Will liberalize [...] (Auto) 45.2 L, Lymph % (Auto) 36.9, [place] % (Auto) 14.3 H, Eos % (Auto) [...] management, arrangements underway for outpatient hemodialysis at [facility] diagnosis DEANGELO. Assessment and plan reviewed with [...] heavy chain monoclonality. Discussed with pathology at [facility] again today. Paraffin block sections came back, [...] again tomorrow. 12/12/2024; No acute indication for FUR FEEDER today. SCr 5.84. potassium and bicarb normal. Hgb this am 6.9, repeat hgb ordered. UOP today 450ml. Outpatient HD schedule is TTS at [facility], reviewed this with patient. Discussed nephrology plan with Dr. Paz, possible discharge today therefore patient will go for outpatient HD tomorrow at [facility]. Patient following up with oncology, [facility] has appointment this week. Assessment and plan reviewed with Dr. Bah. (2) Hypercalcemia: 12/12/24 1201 <Electronically signed by Sukhdeep NUNES> Cosigner Signature (if applicable): 12/17/24 1708 <Electronically signed by Alyssia Bah MD> CC: ~ Signed [facility] Work Phone: [phone] 365-721610-13-2025 Progress note Author Suraj Paz [facility] Note Date/Time December 12, 2024 1 1:27am [facility] Medical Records Department [address] [place] [address] Progress Note - Hospitalist 12/12/24 1126 MR#: [id number] Acct: [id number] Name: LINA VARGAS Rep #:[id number] : 1940 84 From: Suraj mcclendon MD PCP: Dr. Luna Ashton, DO Status:AD IN Location: [place] [address] Subjective Subjective Doing well, no issues overnight. [...] w/ nausea and vomiting x 2-3 wks captain room service and inadequate energy intake Signs/Symptoms as evidenced by po intake meeting <75% of est nutritional needs and 3% unintended wt loss x 2-3 wks captain room service. Status Active Problem Recommendation Dietitian Will liberalize [...] (Auto) 45.2 L, Lymph % (Auto) 36.9, [place] % (Auto) 14.3 H, Eos % (Auto) [...] had 1300 output since admission yesterday evening. [place] lambda light chains ordered in addition to [...] DVT: SCDs Charges/Coding Visit Charges Inpatient E&M: 77185 Subs Hosp L2 12/12/24 1127 <Electronically signed by Suraj Paz MD> Cosigner Signature (if applicable): CC: ~ Signed [facility] Work Phone: [phone] Progress note Author Suraj Paz [facility] Note Date/Time December 11, 2024 1 0:12am [facility] Medical Records Department [address] [place] [address] Progress Note - Hospitalist 12/11/24 1011 MR#: [id number] Acct: [id number] Name: LINA VARGAS Rep #:[id number] : 1940 84 From: Suraj mcclendon MD PCP: Dr. Luna Ashton, DO Status:AD M IN Location: [place] [address] Subjective Subjective Doing well, no issues overnight. [...] w/ nausea and vomiting x 2-3 wks captain room service and inadequate energy intake Signs/Symptoms as evidenced by po intake meeting <75% of est nutritional needs and 3% unintended wt loss x 2-3 wks captain room service. Status Active Problem Recommendation Dietitian Will liberalize [...] % (Auto) 50.4, Lymph % (Auto) 30.3, [place] % (Auto) 19.0 H, Eos % (Auto) [...] had 1300 output since admission yesterday evening. [place] lambda light chains ordered in addition to [...] DVT: SCDs Charges/Coding Visit Charges Inpatient E&M: 62485 Subs Hosp L2 12/11/24 1012 <Electronically signed by Suraj Paz MD> Cosigner Signature (if applicable): CC: ~ Signed [facility] Work Phone: [phone] 448-765710-12-2025 Progress note Author Jameson Dickens tr [facility] Note Date/Time December 11, 2024 7 :57am [facility] Medical Records Department [address] [place] [address] Progress Note - Nephrology 12/11/24 0746 MR#: [id number] Acct: [id number] Name: LINA VARGAS Rep #:[id number] : 1940 84 From: Jameson rodarte MD PCP: Dr. Luna Ashton, DO Status:AD M IN Location: [place] [address] Subjective Subjective Following for dialysis dependent DEANGELO [...] w/ nausea and vomiting x 2-3 wks captain room service and inadequate energy intake Signs/Symptoms as evidenced by po intake meeting <75% of est nutritional needs and 3% unintended wt loss x 2-3 wks captain room service. Status Active Problem Recommendation Dietitian Will liberalize [...] % (Auto) 50.4, Lymph % (Auto) 30.3, [place] % (Auto) 19.0 H, Eos % (Auto) [...] management, arrangements underway for outpatient hemodialysis at [facility] diagnosis DEANGELO. Assessment and plan reviewed with [...] heavy chain monoclonality. Discussed with pathology at [facility] again today. Paraffin block sections came back, [...] Cosigner Signature (if applicable): CC: ~ Signed [facility] Work Phone: [phone]) 783-731710-11-2025 Progress note Author Suraj Paz [facility] Note Date/Time December 10, 2024 1 0:52am [facility] Medical Records Department [address] [place] [address] Progress Note - Hospitalist 12/10/24 1003 MR#: [id number] Acct: [id number] Name: LINA VARGAS Rep #:[id number] : 1940 84 From: Suraj mcclendon MD PCP: Dr. Luna Ashton, DO Status:AD IN Location: [place] [address] Subjective Subjective Feeling better, down to 2 [...] w/ nausea and vomiting x 2-3 wks captain room service and inadequate energy intake Signs/Symptoms as evidenced by po intake meeting <75% of est nutritional needs and 3% unintended wt loss x 2-3 wks captain room service. Status Active Problem Recommendation Dietitian Will liberalize [...] % (Auto) 68.0, Lymph % (Auto)18.0 L, [place] % (Auto) 12.5 H, Eos % (Auto) [...] % (Auto) 65.6, Lymph % (Auto) 19.1, [place] % (Auto) 12.6 H, Eos % (Auto) [...] marrow biopsy. Pathology results pending. Reading Location: [place] [address] Physical Exam Narrative General: Alert, Oriented x3, [...] had 1300 output since admission yesterday evening. [place] lambda light chains ordered in addition to [...] DVT: SCDs Charges/Coding Visit Charges Inpatient E&M: 77070 Subs Hosp L2 12/10/24 1052 <Electronically signed by Suraj Paz MD> Cosigner Signature (if applicable): CC: ~ Signed [facility] Work Phone: [phone]) 480-865310-10-2025 Progress note Author Alyssia Bah [facility] Note Date/Time December 09, 2024 1 2:37pm [facility] Medical Records Department [address] [place] [address] Progress Note - Nephrology 12/09/24 1235 MR#: [id number] Acct: [id number] Name: LINA VARGAS Rep #:[id number] : 1940 84 From: Alyssia goetz MD PCP: Dr. Luna Ashton, DO Status:AD M IN Location: [place] [address] Subjective Subjective Overnight events noted. Had respiratory [...] w/ nausea and vomiting x 2-3 wks captain room service and inadequate energy intake Signs/Symptoms as evidenced by po intake meeting <75% of est nutritional needs and 3% unintended wt loss x 2-3 wks captain room service. Status Active Problem Recommendation Dietitian Will liberalize [...] Magnesium 2.6 H, [place] [address] H 12/09/24 06:19: POC Glucose 94 12/09/24 [...] % (Auto) 68.0, Lymph % (Auto)18.0 L, [place] % (Auto) 12.5 H, Eos % (Auto) [...] process can not be excluded. Reading Location: [facility] Chest X-Ray 12/08/24 18:33 IMPRESSION: Pulmonary findings as above. Reading Location: [address] Physical Exam Narrative no obvious distress [...] management, arrangements underway for outpatient hemodialysis at [facility] diagnosis DEANGELO. Assessment and plan reviewed with [...] heavy chain monoclonality. Discussed with pathology at [facility] again today. Paraffin block sections came back, [...] Cosigner Signature (if applicable): CC: ~ Signed [facility] Work Phone: [phone]) 739-508710-10-2025 Progress note Author Claire Mazariegos [facility] Note Date/Time December 09, 2024 1 2:05pm [facility] Medical Records Department [address] [place] [address] Progress Note - Hospitalist 12/09/24 1156 MR#: [id number] Acct: [id number] Name: LINA VARGAS Rep #:[id number] : 1940 84 From: Claire Mazariegos MD PCP: Dr. Luna Ashton, DO Status:AD M IN Location: [place] [address] 1 Reason for Visit Chief Complaint: N/V, [...] w/ nausea and vomiting x 2-3 wks captain room service and inadequate energy intake Signs/Symptoms as evidenced by po intake meeting <75% of est nutritional needs and 3% unintended wt loss x 2-3 wks captain room service. Status Active Problem Recommendation Dietitian Will liberalize [...] Magnesium 2.6 H, [place] [address] H 12/09/24 06:19: POC Glucose 94 12/09/24 [...] % (Auto) 68.0, Lymph % (Auto)18.0 L, [place] % (Auto) 12.5 H, Eos % (Auto) [...] process can not be excluded. Reading Location: [facility] Chest X-Ray 12/08/24 18:33 IMPRESSION: Pulmonary findings as above. Reading Location: [address] Physical Exam Narrative General: Alert, appears [...] had 1300 output since admission yesterday evening. [place] lambda light chains ordered in addition to [...] Mazariegos MD Charges/Coding Visit Charges Inpatient E&M: 13899 Subs Hosp L3 12/09/24 1205 <Electronically signed by Claire Mazariegos MD> Cosigner Signature (if applicable): CC: ~ Signed [facility] Work Phone: [phone] 552-200210-10-2025 Progress note Author Josette Garrett [facility] Note Date/Time December 09, 2024 1 2:55am [facility] Medical Records Department [address] [place] [address] Progress Note - Hospitalist 12/08/242227 MR#: [id number] Acct: [id number] Name: LINA VARGAS Rep #:[id number] : 1940 84 From: Josette Kwon PCP: Dr. Luna Ashton, DO Status:AD M IN Location: [place] [address] Hospitalist Note Informed of continued increase of [...] Cosigner Signature (if applicable): CC: ~ Signed [facility] Work Phone: 1(779) 666-257610-10-2025 Radiology Diagnostic study [facility]10-09-2025 Progress note Author Claire Mazariegos [facility] Note Date/Time December 08, 2024 7: 20pm [facility] Medical Records Department [address] [place] [address] Progress Note - Hospitalist 12/08/241916 MR#: [id number] Acct: [id number] Name: LINA VARGAS Rep #:[id number] : 1940 84 From: Claire Mazariegos MD PCP: Dr. Luna Ashton, DO Status:AD M IN Location: [place] [address] Hospitalist Note Notified of pts increased O2 [...] Cosigner Signature (if applicable): CC: ~ Signed [facility] Work Phone: [phone] 408-681710-09-2025 Progress note Author Alyssia Bah [facility] Note Date/Time December 08, 2024 7: 03pm [facility] Medical Records Department [address] [place] [address] Progress Note - Nephrology 12/08/241900 MR#: [id number] Acct: [id number] Name: LINA VARGAS Rep #:[id number] : 1940 84 From: Alyssia goetz MD PCP: Dr. Luna Ashton, DO Status:AD IN Location: [place] [address]- Subjective Subjective was sleepy this am. seen [...] w/ nausea and vomiting x 2-3 wks captain room service and inadequate energy intake Signs/Symptoms as evidenced by po intake meeting <75% of est nutritional needs and 3% unintended wt loss x 2-3 wks captain room service. Status Active Problem Recommendation Dietitian Will liberalize [...] Total Protein 87.9, Urine Albumin 19.6, U Qzpof-3-Zkklduuv 1.5, U Xwjwl-3-Gfqgktrl 4.2, U BetaGlobulin 11.1, U Gamma Globulin 63.6, IgG 326 L, IgA 3265 H, IgM 11 L, Immunofixation Screen Comment H, Albumin (OMERO) 2.9, Albumin/Globulin (OMERO) 0.6 L,Yathq-5-Goujpoyra OMERO 0.3, Woaee-3-Hpgzrsoma OMERO 0.7, Beta-Globulins (OMERO) 3.6 H, Gamma Globulins (OMERO) 0.3 L, OMERO M-David Comment:, OMERO Comments Comment, Ur Immunofix PEP Note Comment 12/05/24 05:04: c-ANCA Antibody <1:20, Atypical p-ANCA <1:20, p-ANCA Antibody <1:20, Glomerular Base Memb Ab < 0.2, Complement C3 75 L, Complement C4 25, FreeKappa LC, Quant 23.3 H, Free Lambda LC, Quant 1177.7 H, Free [place]/Lambda Ratio 0.02 L 12/07/24 21:26: POC Glucose [...] management, arrangements underway for outpatient hemodialysis at [facility] diagnosis DEANGELO. Assessment and plan reviewed with [...] with hospitalist, pathology 12/08/241902 <Electronically signed by Aylssia Bah MD> Cosigner Signature (if applicable): CC: ~ Signed [facility] Work Phone: [phone]) 423-812910-09-2025 Radiology Diagnostic study [facility]10-09-2025 Progress note Author Claire Mazariegos [facility] Note Date/Time December 08, 2024 3: 34pm [facility] Medical Records Department [address] [place] [address] Progress Note - Hospitalist 12/08/24 1519 MR#: [id number] Acct: [id number] Name: LINA VARGAS Rep #:[id number] : 1940 84 From: Claire Mazariegos MD PCP: Dr. Luna Ashton, DO Status:AD M IN Location: [place] [address] Reason for Visit Chief Complaint: N/V, generalized [...] w/ nausea and vomiting x 2-3 wks captain room service and inadequate energy intake Signs/Symptoms as evidenced by po intake meeting <75% of est nutritional needs and 3% unintended wt loss x 2-3 wks captain room service. Status Active Problem Recommendation Dietitian Will liberalize [...] Total Protein 87.9, Urine Albumin 19.6, U Ecgmx-4-Kzhebsmf 1.5, U Ewfob-1-Uwmaagbj 4.2, U BetaGlobulin 11.1, U Gamma Globulin 63.6, IgG 326 L, IgA 3265 H, IgM 11 L, Immunofixation Screen Comment H, Albumin (OMERO) 2.9, Albumin/Globulin (OMERO) 0.6 L,Clvmq-7-Cmlqgwqgk OMERO 0.3, Rpuif-6-Xhaqbpdkp OMERO 0.7, Beta-Globulins (OMERO) 3.6 H, Gamma Globulins (OMERO) 0.3 L, OMERO M-David Comment:, OMERO Comments Comment, Ur Immunofix PEP Note Comment 12/05/24 05:04: c-ANCA Antibody <1:20, Atypical p-ANCA <1:20, p-ANCA Antibody <1:20, Glomerular Base Memb Ab < 0.2, Complement C3 75 L, Complement C4 25, FreeKappa LC, Quant 23.3 H, Free Lambda LC, Quant 1177.7 H, Free [place]/Lambda Ratio 0.02 L 12/07/24 16:28: POC Glucose [...] had 1300 output since admission yesterday evening. [place] lambda light chains ordered in addition to [...] documentation, 64Minutes Charges/Coding Visit Charges Inpatient E&M: 95421 Subs Hosp L3 12/08/24 1534 <Electronically signed by Claire Mazariegos MD> Cosigner Signature (if applicable): CC: ~ Signed [facility] Work Phone: 1([phone]) 363-942010-08-2025 Progress note Author Susan Medina [facility] Note Date/Time 2024 3: 17pm [facility] Medical Records Department [address] [place] [address] Progress Note - Surgery 2446 MR#: [id number] Acct: [id number] Name: LINA VARGAS Rep #:[id number] : 1940 84 From: Susan LEROY PA-C PCP: Dr. Luna Ashton, DO Status:AD M IN Location: [place] [address] Subjective Subjective Patient evaluated resting comfortably in [...] w/ nausea and vomiting x 2-3 wks captain room service and inadequate energy intake Signs/Symptoms as evidenced by po intake meeting <75% of est nutritional needs and 3% unintended wt loss x 2-3 wks captain room service. Status Active Problem Recommendation Dietitian Will liberalize [...] patchy bilateral areas airspace disease are seen, pisy-hhhaqyd-byfe-right. While this most likely represents pulmonary edema, cannot exclude the presence of pneumonitis side. Although no definite right pleural effusion is seen, a moderate left pleural effusion is noted. No pneumothorax is noted. The cardiomediastinal silhouette is stable, without evidence of cardiomegaly. Reading Location: [place] [address] Physical Exam Chest Chest Narrative: Right chest- [...] patient's care Charges/Coding Visit Charges Inpatient E&M: 63771 Subs Hosp L1 (post-op; no charge) 12/07/24 [...] Cosigner Signature (if applicable): cc: ~* Signed [facility] Work Phone: 1(448) 738-281010-08-2025 Progress note Author Alyssia Bah [facility] Note Date/Time 2024 12 :32pm [facility] Medical Records Department [address] [place] [address] Progress Note - Nephrology 12/07/24 1231 MR#: [id number] Acct: [id number] Name: LINA VARGAS Rep #:[id number] : 1940 84 From: Alyssia goetz MD PCP: Dr. Luna Ashton, DO Status:AD IN Location: [place] [address] Subjective Subjective HD today Objective Data Objective [...] w/ nausea and vomiting x 2-3 wks captain room service and inadequate energy intake Signs/Symptoms as evidenced by po intake meeting <75% of est nutritional needs and 3% unintended wt loss x 2-3 wks captain room service. Status Active Problem Recommendation Dietitian Will liberalize [...] patchy bilateral areas airspace disease are seen, sdrs-lkoadij-olkw-right. While this most likely represents pulmonary edema, cannot exclude the presence of pneumonitis side. Although no definite right pleural effusion is seen, a moderate left pleural effusion is noted. No pneumothorax is noted. The cardiomediastinal silhouette is stable, without evidence of cardiomegaly. Reading Location: [place] [address] Physical Exam Narrative Alert awake oriented x [...] management, arrangements underway for outpatient hemodialysis at [facility] diagnosis DEANGELO. Assessment and plan reviewed with Dr. Bah 2024. Serologies are still pending. Significant protein gap. Hypercalcemia on admission, now better. Recent low back issues. Myeloma is possible. Will plan for kidney biopsy today. Dialysis today, dialysis tomorrow. Discussed with family bedside. 12/07/24 1232 <Electronically signed by Alyssia Bah MD> Cosigner Signature (if applicable): CC: ~ Signed [facility] Work Phone: 1([phone]) 236-775910-08-2025 Radiology Diagnostic study [facility]10-08-2025 Progress note Author Claire Mazariegos [facility] Note Date/Time 2024 10 :53am [facility] Medical Records Department [address] [place] [address] Progress Note - Hospitalist 12/07/24 1048 MR#: [id number] Acct: [id number] Name: LINA VARGAS Rep #:[id number] : 1940 84 From: Claire Mazariegos MD PCP: Dr. Luna Ashton, DO Status:AD M IN Location: [place] [id number]- 1 Reason for Visit Chief Complaint: N/V, [...] w/ nausea and vomiting x 2-3 wks captain room service and inadequate energy intake Signs/Symptoms as evidenced by po intake meeting <75% of est nutritional needs and 3% unintended wt loss x 2-3 wks captain room service. Status Active Problem Recommendation Dietitian Will liberalize [...] patchy bilateral areas airspace disease are seen, rpkx-hbbxjmi-laqt-right. While this most likely represents pulmonary edema, [...] had 1300 output since admission yesterday evening. [place] lambda light chains ordered in addition to [...] Mazariegos MD Charges/Coding Visit Charges Inpatient E&M: 64852 Subs Hosp L2 12/07/24 1050 <Electronically signed by Claire Mazariegos MD> Cosigner Signature (if applicable): CC: ~ Signed [facility] Work Phone: 1(554) 483-647010-07-2025 Procedure [facility] 12-06-2024 Consult note Author Chris Machado [facility] Note Date/Time December 06, 2024 4: 24pm [facility] Medical Records Department [address] [place] [address] Anesthesia Postop Eval II 12/06/24 1623 MR#: [id number] Acct: [id number] Name: LINA VARGAS Rep #:[id number] : 1940 83 From: Chris Machado MD PCP: Dr. Luna Ashton, DO Status:AD M IN Y Race: C Location: [place] [address] 4-1 Anesthesia Postop Eval I Sum Postop Eval Completion status Anesthesia document: Postop Eval 1 completed: Yes Anesthesia Postop Eval I Summary Anesthesia Postop Eval I Summary: Anesthesia Postop Eval I: Assessment Summary Airway patent Yes 12/06/24 15:35 NUCLEAR TECHNICIAN.TNES Spontaneous unlabored Yes 12/06/24 15:35 NUCLEAR TECHNICIAN.TNES respirations Mental status nausea No 12/06/24 15:35 NUCLEAR TECHNICIAN.TNES Vomiting No 12/06/24 15:35 NUCLEAR TECHNICIAN.TNES Anesthesia Postop Eval I: Fluid Summary Crystalloid volume administer 200 12/06/24 15:35 NUCLEAR TECHNICIAN.TNES (ml) Colloids volume administered ( ml) Blood Product volume administered (ml) Total IV fluid infused 200 12/06/24 15:35 NUCLEAR TECHNICIAN.TNES Anesthesia Postop Eval I: Summary Notes Anesthesia Complication No 12/06/24 15:35 NUCLEAR TECHNICIAN.TNES Anesthesia Complication Comment: Post-operative progress note Anesthesia: Postop Eval II Evaluation Mental status: Awake Pain Level: 1 nausea: No Vomiting: No 12/06/24 1624 <Electronically signed by Chris Machado MD > Date _ Chris Machado MD Cosigner Signature: Date CC: ~ Signed [facility] Work Phone: 1(453) 994-482310-07-2025 Consult note Author Robbie Torres [facility] Note Date/Time December 06, 2024 3: 35pm [facility] Medical Records Department [address] [place] [address] Anesthesia Postop Eval I 12/06/24 1535 MR#: [id number] Acct: [id number] Name: LINA VARGAS Rep #:[id number] : 1940 83 From: Robbie SILVESTRE PCP: Dr. Luna Ashton, DO Status:AD M IN Y Race: C Location: [place] [address] 05-31 Anesthesia: Postop Eval I Current Vital [...] CRNA Cosigner Signature: Date CC: ~ Signed [facility] Work Phone: [phone]) 718-202310-07-2025 Radiology Diagnostic study [facility]10-07-2025 Consult note Author Chris Machado [facility] Note Date/Time December 06, 2024 12 :26pm [facility] Medical Records Department [address] [place] [address] Pre-Anesthesia Evaluation 12/06/24 1225 MR#: [id number] Acct: [id number] Name: LINA VARGAS Rep #:[id number] : 1940 83 From: Chris Machado MD PCP: Dr. Luna Ashton, DO Status:AD M IN Y Race: C Location: [place] [address] 4-1 ASA Classification* ASA Classification ASA Classification: [...] catheter placement. Anesthesia History Anesthesia History - tray checker: Anesthesia History - tray checker Hx Hospitalization Any Problems With Anesthesia No [...] take am of surgery PONV PONV - tray checker: PONV - tray checker Female HX of Motion Sickness HX of N/V After Surgery Non-Smoker Duration of Surgery greater than 60 minutes Number of Risk Factors PONV Score Height & Weight Height & Weight: Anesthesia: Height & Weight Height 6 ft 0.05 in 12/05/24 19:55 Weight: 84.1 kg 12/06/24 03:12 Body Mass Index (BMI) 25.1 12/06/24 03:12 Respiratory Assessment Respiratory Assessment - tray checker: Respiratory Tract Infection Hx - tray checker Hx Respiratory Tract Infection No 12/05/24 19:55 STOP Sleep Apnea STOP Sleep Apnea - tray checker: STOP Sleep Apnea - tray checker Hx Hypertension Yes 12/05/24 11:04 Hx Sleep [...] Tobacco Use History Tobacco Use History - tray checker: Tobacco Use History - tray checker Tobacco Use Smoking Status Never smoker 12/03/24 17:47 Hx Tobacco Use No 12/03/24 17:47 Years Smoking Packs Smoked per Day Smoking Cessation Date was within the last 15 years Hx Smoking Cessation Date Hx Smoking Cessation Counseling Hematologic Medial History Hematologic Hx - tray checker: Hematologic Medical Hx - nurses' registry director Hx of Blood Transfusion No 12/03/24 17:47 [...] confused, unrespo /Reproduction History /Reproductive History - tray checker: /Reproductive Hx- tray checker Hx Now N/A 12/05/24 19:55 Gestational Age [...] mls @ 15 mls/hr 12/03/24 18:33 IV .[id number] PRN Saline Flush Sodium Chloride 250 mls @ 15 mls/hr 12/03/24 18:33 IV .[id number] PRN Additional IVPB Infusion Pantoprazole Sodium 40 [...] 100 Unit/Ml Insuln.Pen SC Not Given ACHS [facility] Protocol Levothyroxine Sodium 100 mcg 12/04/24 06:00 [...] MD Cosigner Signature: Date CC: ~ Signed [facility] Work Phone: 1(645) 107-493310-07-2025 Progress note Author Sukhdeep Juarez [facility] Note Date/Time December 06, 2024 12 :21pm [facility] Medical Records Department [address] [place] [address] Progress Note - Nephrology 12/05/24 1241 MR#: [id number] Acct: [id number] Name: LINA VARGAS Rep #:[id number] : 1940 83 From: Sukhdeep grier MAGAZINE SUPERVISOR-C PCP: Dr. Luna Ashton, DO Status:AD M IN Location: [place] [address] Subjective Subjective Sitting in chair at bedside. [...] w/ nausea and vomiting x 2-3 wks captain room service and inadequate energy intake Signs/Symptoms as evidenced by po intake meeting <75% of est nutritional needs and 3% unintended wt loss x 2-3 wks captain room service. Status Active Problem Recommendation Dietitian Will liberalize [...] No acute abnormality. No obstruction Reading Location: [facility] Physical Exam Narrative Alert awake oriented x [...] Assessment and planreviewed with Dr. Bah 12/05/24 1250 <Electronically signed by Sukhdeep NUNES> Cosigner Signature (if applicable): 12/06/24 1221 <Electronically signed by Alyssia Bah MD> CC: ~ Signed [facility] Work Phone: [phone]) 300-699710-07-2025 Progress note Author Sukhdeep [facility] Note Date/Time December 06, 2024 12 :21pm [facility] Medical Records Department [address] [place] [address] Progress Note - Nephrology 12/06/24 1101 MR#: [id number] Acct: [id number] Name: LNIA VARGAS Rep #:[id number] : 1940 83 From: Sukhdeep CENTENOC PCP: Dr. Luna Ashton, DO Status:AD M IN Location: [place] [address] Subjective Subjective Patient developed some wheezing overnight [...] w/ nausea and vomiting x 2-3 wks captain room service and inadequate energy intake Signs/Symptoms as evidenced by po intake meeting <75% of est nutritional needs and 3% unintended wt loss x 2-3 wks captain room service. Status Active Problem Recommendation Dietitian Will liberalize [...] 76.0 H, Lymph % (Auto) 13.2 L, [place] % (Auto) 9.1, Eos % (Auto) 1.2, [...] management, arrangements underway for outpatient hemodialysis at [facility] diagnosis DEANGELO. Assessment and plan reviewed with Dr. Bah 12/06/24 1107 <Electronically signed by Sukhdeep NUNES> Cosigner Signature (if applicable): 12/06/24 1221 <Electronically signed by Alyssia Bah MD> CC: ~ Signed [facility] Work Phone: 1(534) 341-599310-07-2025 Progress note Author Claire Mazariegos [facility] Note Date/Time December 06, 2024 12 :05pm [facility] Medical Records Department [address] [place] [address] Progress Note - Hospitalist 12/06/24 0947 MR#: [id number] Acct: [id number] Name: LINA VARGAS Rep #:[id number] : 1940 83 From: Claire Mazariegos MD PCP: Dr. Luna Ashton, DO Status:AD M IN Location: [place] [address] 1 Reason for Visit Chief Complaint: N/V, [...] w/ nausea and vomiting x 2-3 wks captain room service and inadequate energy intake Signs/Symptoms as evidenced by po intake meeting <75% of est nutritional needs and 3% unintended wt loss x 2-3 wks captain room service. Status Active Problem Recommendation Dietitian Will liberalize [...] 76.0 H, Lymph % (Auto) 13.2 L, [place] % (Auto) 9.1, Eos % (Auto) 1.2, [...] had 1300 output since admission yesterday evening. [place] lambda light chains ordered in addition to [...] Mazariegos MD Charges/Coding Visit Charges Inpatient E&M: 49018 Subs Hosp L2 12/06/24 1205 <Electronically signed by Claire Mazariegos MD> Cosigner Signature (if applicable): CC: ~ Signed [facility] Work Phone: 1(231) 354-960010-07-2025 Progress note Author Susan Medina [facility] Note Date/Time December 06, 2024 8: 29am [facility] Medical Records Department [address] [place] [address] Progress Note - Surgery 12/06/24824 MR#: [id number] Acct: [id number] Name: LINA VARGAS Rep #:[id number] : 1940 83 From: Susan LEROY PA-C PCP: Dr. Luna Ashton, DO Status:AD M IN Location: [place] [address] Subjective Subjective Patient evaluated resting comfortably in [...] w/ nausea and vomiting x 2-3 wks captain room service and inadequate energy intake Signs/Symptoms as evidenced by po intake meeting <75% of est nutritional needs and 3% unintended wt loss x 2-3 wks captain room service. Status Active Problem Recommendation Dietitian Will liberalize [...] 76.0 H, Lymph % (Auto) 13.2 L, [place] % (Auto) 9.1, Eos % (Auto) 1.2, [...] No acute abnormality. No obstruction Reading Location: [id number] Assessment & Plan Assessment/Plan (1) Acute renal failure: PLAN: I am following this patient in conjunction with Dr. Evans. He has independently evaluated this patient. Labs reviewed Plan for a right possible left tunneled dialysis catheter placement later this afternoon We will continue to monitor this patient Charges/Coding Visit Charges Inpatient E&M: 07048 Subs Hosp L1 12/06/24 0829 <Electronically signed by Susan LEROY PA-C> Cosigner Signature (if applicable): CC: ~ Signed [facility] Work Phone: 1(401) 247-687510-06-2025 Consult note Author Henry Evans [facility] Note Date/Time December 05, 2024 7: 18pm [facility] Medical Records Department [address] [place] [address] Consultation - Surgical 12/05/241910 MR#: [id number] Acct: [id number] Name: LINA VARGAS Rep #:[id number] : 1940 83 From: Henry Jean Baptiste PCP: Dr. Luna Ashton, DO Status:AD M IN Location: [facility] [id number]- 1 Assessment & Plan Assessment/Plan (1) Acute [...] Evans MD General Surgery Endocrine Surgery Pager: [facility] [address] [place] [address], [address] [place] [address] Office: [phone] HPI Consult Data Date of Consult: 12/05/24 HPI Narrative Reason for Consultation: Insertion of tunneled hemodialysis catheter HPI Narrative: LINA VARGAS, is a 83 M who presented to [facility] on 12/03/2024 with complaints of nausea and [...] 1.3 at the beginning of the year. [facility] Medical History (Updated 12/04/24 @ 12:58 by [...] w/ nausea and vomiting x 2-3 wks captain room service and inadequate energy intake Signs/Symptoms as evidenced by po intake meeting <75% of est nutritional needs and 3% unintended wt loss x 2-3 wks captain room service. Status Active Problem Recommendation Dietitian Will liberalize [...] No acute abnormality. No obstruction Reading Location: [id number] Charges/Coding Visit Charges Inpatient E&M: 88495 Init Hosp L2 12/05/24 1918 <Electronically signed by Henry Evans MD> Cosigner Signature (if applicable): CC: Dr. Luna Ashton, DO~ Signed [facility] Work Phone: [phone]) 339-993710-06-2025 Progress note Author Claire Mazariegos [facility] Note Date/Time December 05, 2024 8: 50am [facility] Medical Records Department [address] [place] [address] Progress Note - Hospitalist 12/05/24 0754 MR#: [id number] Acct: [id number] Name: LINA VARGAS Rep #:[id number] : 1940 83 From: Claire Mazariegos MD PCP: Dr. Luna Ashton, DO Status:AD M IN Location: [place] [address] Reason for Visit Chief Complaint: N/V, generalized [...] w/ nausea and vomiting x 2-3 wks captain room service and inadequate energy intake Signs/Symptoms as evidenced by po intake meeting <75% of est nutritional needs and 3% unintended wt loss x 2-3 wks captain room service. Status Active Problem Recommendation Dietitian Will liberalize [...] had 1300 output since admission yesterday evening. [place] lambda light chains ordered in addition to [...] documentation, 51Minutes Charges/Coding Visit Charges Inpatient E&M: 16047 Subs Hosp L3 12/05/24 0850 <Electronically signed by Claire Mazariegos MD> Cosigner Signature (if applicable): CC: ~ Signed [facility] Work Phone: 1(494) 719-888910-06-2025 Radiology Diagnostic study note [facility] Imaging Services [address] [place], [place] [address] Kidney and Bladder MR#: [id number] Acct: [id number] Name: LINA VARGAS Rep #: [id number] : 1940 M 83 From: Fer Edmond MD PCP: Dr. Luna Ashton, DO Status: AD M IN Study:Kidney and Bladder Date of Exam: 1 Exam# [id number] Ordering Dr: Rubia Mazariegos MD PROCEDURE: KIDNEY AND BLADDER 12/05/2024 REASON FOR EXAM: ACUTE RENAL FAILURE TECHNIQUE: Procedure Code: USKI Modality: US Procedure: KIDNEY AND BLADDER COMPARISON: July 10, 2022 FINDINGS: Kidneys: The right kidney is 13.3 x 6.8 x 6.3 cm, while the left is 13.8 x 5.6 x5.2 cm. Mcgregor: None Cysts or Masses: None Bladder: Monterroso catheter is in place. US/Kidney and Bladder IMPRESSION: No acute abnormality. No obstruction Reading Location: [id number] CC: Dr. Luna Ashton, ; Dr. Claire Mazariegos MD ~ Contract Accountant: Signed [facility]10-05-2025 Consult note Author Alyssia Bah [facility] Note Date/Time December 04, 2024 2: 55pm [facility] Medical Records Department [address] [place] [address] Consultation - Nephrology 12/04/24 1451 MR#: [id number] Acct: [id number] Name: LINA VARGAS Rep #:[id number] : 1940 83 From: Alyssia goetz MD PCP: Dr. Luna Ashton, Status:AD M IN Location: [place] [address] Assessment & Plan Assessment/Plan (1) Hypercalcemia: (2) [...] placed with some urine. Denies taking any lpma-xzr-yipggca medications. Other than pain medications, no other new medications. [facility] Medical History (Updated 12/04/24 @ 12:58 by [...] w/ nausea and vomiting x 2-3 wks captain room service and inadequate energy intake Signs/Symptoms as evidenced by po intake meeting <75% of est nutritional needs and 3% unintended wt loss x 2-3 wks captain room service. Status Active Problem Recommendation Dietitian Will liberalize [...] Clarity Clear, Urine pH 7.0, Ur Specific [place] 1.010, Urine Protein 30 H, Urine Glucose [...] 75.9 H, Lymph % (Auto) 12.1 L, [place] % (Auto) 9.9, Eos % (Auto) 1.4, [...] 17:20 IMPRESSION: NO ACUTE FINDINGS. Reading Location: [facility] 12/04/24 8624 <Electronically signed by Alyssia Bah MD> Cosigner Signature (if applicable): CC: Dr. Luna Ashton, DO~ Signed [facility] Work Phone: 1(396) 351-428310-05-2025 Progress note Author Claire Mazariegos [facility] Note Date/Time December 04, 2024 1: 05pm [facility] Medical Records Department [address] [place] [address] Progress Note - Hospitalist 12/04/24 0827 MR#: [id number] Acct: [id number] Name: LINA VARGAS Rep #:[id number] : 1940 83 From: Claire Mazariegos MD PCP: Dr. Luna Ashton, DO Status:AD M IN Location: [place] [address] Reason for Visit Chief Complaint: N/V, generalized [...] (Auto) 76.6 H, Lymph % (Auto)14.1 L, [place] % (Auto) 8.6, Eos % (Auto) 0.2, [...] Clarity Clear, Urine pH 7.0, Ur Specific [place] 1.010, Urine Protein 30 H, Urine Glucose [...] 75.9 H, Lymph % (Auto) 12.1 L, [place] % (Auto) 9.9, Eos % (Auto) 1.4, [...] 17:20 IMPRESSION: NO ACUTE FINDINGS. Reading Location: [facility] Physical Exam Narrative General: A little bit [...] had 1300 output since admission yesterday evening. [place] lambda light chains ordered in addition to [...] documentation, 56Minutes Charges/Coding Visit Charges Inpatient E&M: 29866 Subs Hosp L3 12/04/24 1305 <Electronically signed by Claire Mazariegos MD> Cosigner Signature (if applicable): CC: ~ Signed [facility] Work Phone: [phone] 718-241410-05-2025 Discharge summary Author Omari Luna [facility] Note Date/Time December 03, 2024 10 :13pm [facility] Medical Records Department [address] [place] [address] Emergency Department Summary 12/03/24 MR#: [id number] Acct: [id number] Name: LINA VARGAS Rep #:[id number] : 1940 83 From: Omari Luna MD PCP: Dr. Luna Ashton, DO Status:AD M IN Location: [place] [address] HPI HPI - GI History of Present [...] reproducible pain. Extremities moves all 4. Normal team driver strength. Normal dorsi plantarflexion. No cauda equina. [...] 76.6 H Lymph % (Auto) 14.1 L [place] % (Auto) 8.6 Eos % (Auto) 0.2 [...] of spine Disposition Disposition: Acute Care Hospital [facility] What to do if you have Problems For any increased pain, shortness of breath, bleeding, nausea or vomiting, chestpain, or any unexpected problems, contact your Primary Care Provider. Call [facility] ([phone]) or report to the closest Emergency Room. Call 911 if necessary. 12/03/242212 <Electronically signed by Omari Luna MD> Cosigner Signature (if applicable): CC: Dr. Luna Ashton, DO ~ Signed [facility] Work Phone: 1(637) 399-100810-04-2025 History and physical note Author Claire Mazariegos [facility] Note Date/Time December 03, 2024 5: 31pm [facility] Medical Records Department [address] [place] [address] H&P Exam - Hospitalist 12/03/24 1703 MR#: [id number] Acct: [id number] Name: LINA VARGAS Rep #:[id number] : 1940 83 From: Claire Mazariegos MD PCP: Dr. Luna Ashton, DO Status:AD M IN Location: [facility] [id number]- 1 HPI - General General Date of Admission: 12/03/24 Date of Service: 12/03/24 Chief Complaint: N/V, generalized weakness HPI Narrative LINA VARGAS, is a 83-year-old male history of hypothyroidism, diabetes, GERD, hypertension who presented to [facility] ED 12/03/24 with nausea and vomiting. He [...] taking any NSAIDs for his back pain. [facility] Medical History Lumbar strain Low back pain [...] (Auto) 76.6 H, Lymph % (Auto)14.1 L, [place] % (Auto) 8.6, Eos % (Auto) 0.2, [...] Mazariegos MD Charges/Coding Visit Charges Inpatient E&M: 06021 Init Hosp L3 12/03/24 1731 <Electronically signed by Claire Mazariegos MD> Cosigner Signature (if applicable): CC: Dr. Luna Ashton DO; Dr. Claire Mazariegos MD~ Signed [facility] Work Phone: 1(937) 311-674310-04-2025 Radiology Diagnostic study note [facility] Imaging Services [address] [place], [place] [address] Chest PA and Lateral MR#: [id number] Acct: [id number] Name: LINA VARGAS Rep #: [id number] : 1940 M 83 From: Naveed Dalton MD PCP: Dr. Luna Ashton DO Status: AD M IN Study:Chest PA and Lateral Date of Exam: 12/03/24 Exam# [id number] Ordering Dr: Gordon Luna MD PROCEDURE: CHEST [...] Lateral IMPRESSION: NO ACUTE FINDINGS. Reading Location: [facility] CC: Dr. Luna Ashton DO; Dr. Omari Luna MD ~ Contract Accountant: Signed [facility]10-04-2025 History and physical note [facility] Medical Records Department [address] [place] [address] H&P Exam - Hospitalist 12/03/24 1703 MR#: [id number] Acct: [id number] Name: LINA VARGAS Rep #:[id number] : 1940 83 From: Claire Mazariegos MD PCP: Dr. Luna Ashton, DO Status:AD M IN Location: [facility] [id number]- 1 HPI - General General Date of Admission: 12/03/24 Date of Service: 12/03/24 Chief Complaint: N/V, generalized weakness HPI Narrative LINA VARGAS, is a 83-year-old male history of hypothyroidism, diabetes, GERD, hypertension who presented to [facility] ED 12/03/24 with nausea and vomiting. He [...] taking any NSAIDs for his back pain. [facility] Medical History Lumbar strain Low back pain [...] (Auto) 76.6 H, Lymph % (Auto)14.1 L, [place] % (Auto) 8.6, Eos % (Auto) 0.2, [...] Mazariegos MD Charges/Coding Visit Charges Inpatient E&M: 27517 Init Hosp L3 12/03/24 1731 Cosigner Signature (if applicable): CC: Dr. Luna Ashton DO; Dr. Claire Mazariegos MD~ Signed [facility]10-04-2025 Discharge summary [facility] Medical Records Department [address] [place] [address] Emergency Department Summary 12/03/24 MR#: [id number] Acct: [id number] Name: LINA VARGAS Rep #:[id number] : 1940 83 From: Omari Luna MD PCP: Dr. Luna Ashton DO Status:AD M IN Location: [place] [address] HPI HPI - GI History of Present [...] reproducible pain. Extremities moves all 4. Normal team driver strength. Normal dorsi plantarflexion. No cauda equina. [...] 76.6 H Lymph % (Auto) 14.1 L [place] % (Auto) 8.6 Eos % (Auto) 0.2 [...] of compression fracture of spine Disposition Disposition: [facility] What to do if you have Problems For any increased pain, shortness of breath, bleeding, nausea or vomiting, chestpain, or any unexpected problems, contact your Primary Care Provider. Call [facility] ([phone]) or report tothe closest Emergency Room. Call 911 if necessary. 12/03/243 Cosigner Signature (if applicable): CC: Dr. Luna Ashton, DO ~ Signed [facility]10-04-2025 Discharge summary Author Omari Luna [facility] Note Date/Time December 03, 2024 10 :13pm [facility] Medical Records Department [address] [place] [address] Emergency Department Summary 12/03/24 MR#: [id number] Acct: [id number] Name: LINA VARGAS Rep #:[id number] : 1940 83 From: Omari Luna MD PCP: Dr. Luna Ashton, DO Status:AD M IN Location: [place] [address] HPI HPI - GI History of Present [...] reproducible pain. Extremities moves all 4. Normal team driver strength. Normal dorsi plantarflexion. No cauda equina. [...] 76.6 H Lymph % (Auto) 14.1 L [place] % (Auto) 8.6 Eos % (Auto) 0.2 [...] of spine Disposition Disposition: Acute Care Hospital [facility] What to do if you have Problems For any increased pain, shortness of breath, bleeding, nausea or vomiting, chestpain, or any unexpected problems, contact your Primary Care Provider. Call [facility] ([phone]) or report to the closest Emergency Room. Call 911 if necessary. 12/03/242212 <Electronically signed by Omari Luna MD> Cosigner Signature (if applicable): CC: Dr. Luna Ashton, DO ~ Signed [facility] Work Phone: 1(450) 720-323509-24-2025 [facility] Internal Medicine [address] [place], [place] [address] OFFICE VISIT Date of Service: 11/23/24 MR#: [id number] Acct: [id number] Name: LINA VARGAS Rep #: [id number] : 1940 Provider: Dr. Isaias Ashton DO Age/Sex: 83/M Location: [facility] Status: Signed Intake Vital Signs 09/29/24 14:17 [...] Reasons: BACK PAIN Chief Complaint: Back Pain Basket Assembler Required: No Is patient in pain?: Yes [...] back pain, saw Rocco Gates at the [facility] clinic on 11/15/24. Told xray was WNL. [...] Cosigner Signature: Date (if applicable) CC: ~ [employer] [facility] Rad[facility] Diagnostic study note [facility] Imaging Services [address] [place] [address] Lumbar Spine 2 or 3 Views MR#: [id number] Acct: [id number] Name: LINA VARGAS Rep #: [id number] : 1940 M 83 From: George Bo MD PCP: Dr. Luna Ashton, Status: NEISHA OAKES Study:Lumbar Spine 2 or 3 Views Date of Exam: 11/15/24 Exam# [id number] Ordering Dr: [facility] PROCEDURE: LUMBAR [...] CHANGES OF THE LUMBAR SPINE. Reading Location: [facility]--1 CC: Dr. Luna Ashton DO; MARIAA Garcia ~ Contract Accountant: Signed [facility]08-05-2025 Radiology Diagnostic study note [facility] Imaging Services [address] [place], [place] [address] Abdomen Limited MR#: [id number] Acct: [id number] Name: LINA VARGAS Rep #: [id number] : 1940 83 From: George Bo MD PCP: Dr. Luna Ashton DO Status: RE G CLI Study:Abdomen Limited Date of Exam: 07/24 Exam# [id number] Ordering Dr: Do jorge Ashton DO PROCEDURE: [...] Fatty infiltration of the liver. Reading Location: [id number] CC: Dr. Luna Ashton, DO ~ Contract Accountant: Signed [facility]07-31-2025 Evaluation note* Diagnosis Onset Date Resolution Status Admit Date Dyspnea on exertion acute September 29, 2024 2:02pm CKD (chronic kidney disease) stage 1, GFR 90 ml/min or greater chronic September 29, 2024 2:02pm Epigastric pain chronic August 2:02pm History of hypothyroidism chronic September 29, 2024 2:02pm HTN (hypertension) chronic September 012024 2:02pm Type II diabetes mellitus chronic September 29, 2024 2:02pm [facility] Work Phone: [phone]) 810-656807-31-2025 Evaluation note* Diagnosis Onset Date Resolution Status [...] 12:00pm Lumbar strain acute October 312024 12:00pm [facility] Work Phone: 1(476) 514-475907-31-2025 Evaluation note* Diagnosis Onset Date Resolution Status [...] lumbar vertebra acute November 23, 2024 10:33am [facility] Work Phone: 1(625) [phone] Evaluation note* Diagnosis Onset Date Resolution Status [...] er 2024 5:03pm Hypercalcemia acute November 5:03pm [facility] Work Phone: [phone] Evaluation note* Diagnosis Onset Date Resolution Status [...] 8:09am Anemia chronic December 26, 2024 8:09am [facility] Work Phone: [phone] 158-267207-31-2025 Evaluation note* Diagnosis Onset Date Resolution Status [...] 1:23pm Anemia chronic January 02, 2025 1:23pm [facility] [employer] Work Phone: 1([phone]) 463-308404-22-2025 Evaluation note* Diagnosis Onset Date Resolution Status [...] diabetes mellitus chronic September 29, 2024 2:02pm [facility] Work Phone: 1(642) 212-598304-22-2025 Evaluation note* Diagnosis Onset Date Resolution Status [...] diabetes mellitus chronic September 29, 2024 2:02pm [facility] Work Phone: Consult note [facility] Medical Records Department [address] [place] [address] Consultation - Nephrology 12/04/24 1451 MR#: [id number] Acct: [id number] Name: LINA VARGAS Rep #:[id number] : 1940 83 From: Alyssia goetz MD PCP: Dr. Luna Ashton, DO Status:AD M IN Location: [place] [address]- Assessment & Plan Assessment/Plan (1) Hypercalcemia: (2) [...] placed with some urine. Denies taking any bozh-ogb-kmpximy medications. Other than pain medications, no other new medications. [facility] Medical History (Updated 12/04/24 @ 12:58 by [...] w/ nausea and vomiting x 2-3 wks captain room service and inadequate energy intake Signs/Symptoms as evidenced by po intake meeting <75% of est nutritional needs and 3% unintended wt loss x 2-3 wks captain room service. Status Active Problem Recommendation Dietitian Will liberalize [...] Clarity Clear, Urine pH 7.0, Ur Specific [place] 1.010, Urine Protein 30 H, Urine Glucose [...] 75.9 H, Lymph % (Auto) 12.1 L, [place] % (Auto) 9.9, Eos % (Auto) 1.4, [...] 17:20 IMPRESSION: NO ACUTE FINDINGS. Reading Location: [facility] 12/04/241454 Cosigner Signature (if applicable): CC: Dr. Luna Ashton, DO~ [facility]igned [facility] Author Alyssia Bah [facility] Note Date/Time December 04, 2024 2: 55pm [facility] Medical Records Department [address] [place] [address] Consultation - Nephrology 12/04/241450 MR#: [id number] Acct: [id number] Name: LINA VARGAS Rep #:[id number] : 1940 83 From: Alyssia goetz MD PCP: Dr. Luna Ashton, DO Status:AD M IN Location: [facility] [id number] Assessment & Plan Assessment/Plan (1) Hypercalcemia: [...] placed with some urine. Denies taking any sczv-bwv-semiiml medications. Other than pain medications, no other new medications. [facility] Medical History (Updated 12/04/24 @ 12:58 by [...] w/ nausea and vomiting x 2-3 wks captain room service and inadequate energy intake Signs/Symptoms as evidenced by po intake meeting <75% of est nutritional needs and 3% unintended wt loss x 2-3 wks captain room service. Status Active Problem Recommendation Dietitian Will liberalize [...] Clarity Clear, Urine pH 7.0, Ur Specific [place] 1.010, Urine Protein 30 H, Urine Glucose [...] 75.9 H, Lymph % (Auto) 12.1 L, [place] % (Auto) 9.9, Eos % (Auto) 1.4, [...] 17:20 IMPRESSION: NO ACUTE FINDINGS. Reading Location: [facility] 12/04/24 6210 <Electronically signed by Alyssia Bah MD> Cosigner Signature (if applicable): CC: Dr. Luna Ashton, DO~ Signed [facility] Work Phone: Evaluation note* Diagnosis Onset Date Resolution Status Shoulder pain, right acute Hypothyroidism chronic Type II diabetes mellitus ch ronic Shoulder pain, right acute HTN (hypertension) chronic [facility] Work Phone: Evaluation note* Diagnosis Onset Date Resolution Status HLD (hyperlipidemia) chronic HTN (hypertension) chronic Hypothyroidism chronic Type II diabetes mellitus ch ronic Acute low back pain with rad icular symptoms, duration less than 6 weeks acute HTN (hypertension) chronic [id number] [facility]act[facility] Work Phone: Evaluation note* Diagnosis Onset Date Resolution Status HTN (hypertension) chronic Hypothyroidism chronic Type II diabetes mellitus ch ronic Nocturia associated with benign prostatic hyperplasia acute Epigastric pain chronic HTN (hypertension) chronic Type II diabetes mellitus [facility] Work Phone: Evaluation note* Diagnosis Onset Date Resolution Status Nocturia associated with benign prostatic hyperplasia acute Epigastric pain chronic HTN (hypertension) chronic Type II diabetes mellitus ch ronic HTN (hypertension) chronic Hypothyroidism chronic Type II diabetes mellitus [facility] Work Phone: Evaluation note* Diagnosis Onset Date Resolution Status HTN (hypertension) chronic Hypothyroidism chronic Type II diabetes mellitus ch ronic Epigastric pain chronic History of hypothyroidism ch ronic HTN (hypertension) chronic Type II diabetes mellitus [facility] Work Phone: Evaluation note* Diagnosis Onset Date Resolution Status CAD (coronary artery disease) chronic Epigastric pain chronic HTN (hypertension) chronic Type II diabetes mellitus ch ronic HTN (hypertension) chronic Type II diabetes mellitus [facility] Work Phone: History and physical note Author Claire Mazariegos [facility] Note Date/Time December 03, 2024 5: 31pm [facility] Medical Records Department [address] [place] [address] H&P Exam - Hospitalist 12/03/24 1703 MR#: [id number] Acct: [id number] Name: LINA VARGAS Rep #:[id number] : 1940 83 From: Claire Mazariegos MD PCP: Dr. Luna Ashton, DO Status:AD M IN Location: [facility] [id number]- [id number] HPI - General General Date of Admission: 12/03/24 Date of Service: 12/03/24 Chief Complaint: N/V, generalized weakness HPI Narrative LINA VARGAS, is a 83-year-old male history of hypothyroidism, diabetes, GERD, hypertension who presented to [facility] ED 12/03/24 with nausea and vomiting. He [...] taking any NSAIDs for his back pain. [facility] Medical History Lumbar strain Low back pain [...] (Auto) 76.6 H, Lymph % (Auto)14.1 L, [place] % (Auto) 8.6, Eos % (Auto) 0.2, [...] Mazariegos MD Charges/Coding Visit Charges Inpatient E&M: 96098 Init Hosp L3 12/03/24 1731 <Electronically signed by Claire Mazariegos MD> Cosigner Signature (if applicable): CC: Dr. Luna Ashton DO; Dr. Claire Mazariegos MD~ Signed [facility] Work Phone: Hospital Discharge instructionsAdditional Instructions Decrease your Lantus dosing to 5 units at night and make adjustments as indicated by twice daily blood sugar measurements in conjunction with your doctor.[facility] Work Phone: Hospital Discharge instructionsAmbulatory Orders* Prior Authorization Referral - ONC/HEM Location: None Selected * Palliative Medicine Location: None Selected [facility] Work Phone: Progress note Author Luna Ashton [facility] Note Date/Time November 23, 2024 11:19am [facility] [address] [place] [address] [place] [address] OFFICE VISIT Date of Service: 11/23/24 MR#: [id number] Acct: [id number] Name: LINA VARGAS Rep #: [id number] : 1940 Provider: Dr. Isaias Ashton DO Age/Sex: 83/M Location: [facility] Status: Signed Intake Vital Signs 09/29/24 14:17 [...] Reasons: BACK PAIN Chief Complaint: Back Pain Basket Assembler Required: No Is patient in pain?: Yes [...] Luna R Bro wn DO> Date _ Luna Ashton DO Cosigner Signature: Date (if applicable) CC: ~ [facility] [employer] [facility] Work Phone: Progress note [facility] Medical Records Department [address] [place] [address] Progress Note - Hospitalist 12/04/24826 MR#: [id number] Acct: [id number] Name: LINA VARGAS Rep #:[id number] : 1940 83 From: Claire Mazariegos MD PCP: Dr. Luna Ashton, DO Status:AD IN Location: [place] [address]- 1 Reason for Visit Chief Complaint: N/V, [...] (Auto) 76.6 H, Lymph % (Auto)14.1 L, [place] % (Auto) 8.6, Eos % (Auto) 0.2, [...] Clarity Clear, Urine pH 7.0, Ur Specific [place] 1.010, Urine Protein 30 H, Urine Glucose [...] 75.9 H, Lymph % (Auto) 12.1 L, [place] % (Auto) 9.9, Eos % (Auto) 1.4, [...] 17:20 IMPRESSION: NO ACUTE FINDINGS. Reading Location: [facility] Physical Exam Narrative General: A little bit [...] had 1300 output since admission yesterday evening. [place] lambda light chains ordered in addition to [...] documentation, 56Minutes Charges/Coding Visit Charges Inpatient E&M: 03229 Subs Hosp L3 12/04/24 1305 Cosigner Signature (if applicable): CC: ~ [facility]igned [facility] Medical Records Department [address] [place] [address] Progress Note - Hospitalist 12/05/24 0754 MR#: [id number] Acct: [id number] Name: LINA VARGAS Rep #:[id number] : 1940 83 From: Claire Mazariegos MD PCP: Dr. Luna Ashton, DO Status:AD M IN Location: [place] [address] Reason for Visit Chief Complaint: N/V, generalized [...] w/ nausea and vomiting x 2-3 wks captain room service and inadequate energy intake Signs/Symptoms as evidenced by po intake meeting <75% of est nutritional needs and 3% unintended wt loss x 2-3 wks captain room service. Status Active Problem Recommendation Dietitian Will liberalize [...] had 1300 output since admission yesterday evening. [place] lambda light chains ordered in addition to [...] so we will start folic acid but [id number] normal limits, iron and iron saturation within [...] documentation, 51Minutes Charges/Coding Visit Charges Inpatient E&M: 90514 Subs Hosp L3 12/05/24 0850 Cosigner Signature (if applicable): CC: ~ [facility]igned [facility] Author Claire Mazariegos [facility] Note Date/Time December 04, 2024 1: 05pm [facility] Medical Records Department [address] [place] [address] Progress Note - Hospitalist 12/04/24826 MR#: [id number] Acct: [id number] Name: LINA VARGAS Rep #:[id number] : 1940 83 From: Claire Mazariegos MD PCP: Dr. Luna Ashton, DO Status:AD M IN Location: [address] 1 Reason for Visit Chief Complaint: [...] (Auto) 76.6 H, Lymph % (Auto)14.1 L, [place] % (Auto) 8.6, Eos % (Auto) 0.2, [...] Clarity Clear, Urine pH 7.0, Ur Specific [place] 1.010, Urine Protein 30 H, Urine Glucose [...] 75.9 H, Lymph % (Auto) 12.1 L, [place] % (Auto) 9.9, Eos % (Auto) 1.4, [...] 17:20 IMPRESSION: NO ACUTE FINDINGS. Reading Location: [facility] Physical Exam Narrative General: A little bit [...] had 1300 output since admission yesterday evening. [place] lambda light chains ordered in addition to [...] documentation, 56Minutes Charges/Coding Visit Charges Inpatient E&M: 85618 Subs Hosp L3 12/04/24 1305 <Electronically signed by Claire Mazariegos MD> Cosigner Signature (if applicable): CC: ~ Signed [facility] Work Phone: Progress note Author Claire Mazariegos [facility] Note Date/Time December 05, 2024 8: 50am [facility] Medical Records Department [address] [place] [address] Progress Note - Hospitalist 12/05/24 8929 MR#: [id number] Acct: [id number] Name: LINA VARGAS Rep #:[id number] : 1940 83 From: Claire Mazariegos MD PCP: Dr. Luna Ashton, DO Status:AD M IN Location: [place] [address] Reason for Visit Chief Complaint: N/V, generalized [...] w/ nausea and vomiting x 2-3 wks captain room service and inadequate energy intake Signs/Symptoms as evidenced by po intake meeting <75% of est nutritional needs and 3% unintended wt loss x 2-3 wks captain room service. Status Active Problem Recommendation Dietitian Will liberalize [...] had 1300 output since admission yesterday evening. [place] lambda light chains ordered in addition to [...] documentation, 51Minutes Charges/Coding Visit Charges Inpatient E&M: 35645 Subs Hosp L3 12/05/24 0850 <Electronically signed by Claire Mazariegos MD> Cosigner Signature (if applicable): CC: ~ Signed [facility] Work Phone: Progress note Author Adalid King [facility] Note Date/Time December 14, 2024 4 :02pm [facility] [address] [address] OFFICE VISIT Date of Service: 12/14/24 1427 MR#: [id number] Acct: [id number] Name: LINA VARGAS Rep #: [id number] : 1940 From: Adalid arciniega MD Age/Sex: 84/M Location: [facility] Status: Signed HPI Subjective Date [...] IgA lambda 2.8 g per DL Free [place] LC, Quant 23.3 H Free Lambda LC, Quant 1177.7 H Free [place]/Lambda Ratio 0.02 L 2024 kidney biopsy: Light [...] aspirate smear. Cytogenetics and FISH are pending. [facility] Medical History Type II diabetes mellitus Anemia [...] Calcium 14.6 H* OMERO M-David Comment: Free [place] LC, Quant Free Lambda LC, Quant Free [place]/Lambda Ratio 12/04/24 12/05/24 12/12/24 03:43 05:04 04:45 WBC 3.6 L Hgb 7.9 L Plt Count 147 L Creatinine 5.84 H Calcium 10.3 OMERO M-David Free [place] LC, Quant 23.3 H Free Lambda LC, Quant 1177.7 H Free [place]/Lambda Ratio 0.02 L Exam Physical Exam Narrative [...] no focal motor deficits Coordination / Balance: vzmsql-cq-xzgo test normal Speech: speech normal Gait (Neuro): [...] he named his as his power of compliance attorney and he has a living well with DNR. 11. Medical management including diabetes expected worsening on the days of steroids deferred to Dr. Ashton. Patient was seen with his and daughter impression and plan discussed. Adalid King MD Parts Processor, [facility] Divisions of Medical Oncology & Hematology Department of Internal Medicine [place] [address] Insert ana Clinical Quality Measures Falls Risk Screening/Assistive Devices Have you fallen in the past year?: No 12/14/24 1621 <Electronically signed by Adalid bustos MD> Date _ Adalid King MD Cosigner Signature: Date (if applicable) CC: Dr. Luna Ashton, DO; Dr. Alyssia Bah MD; Dr. Suraj Paz MD; Dr. Suraj Pastor MD; Dr. Claire Mazariegos MD ~ [facility] Work Phone: Reason for referral (narrative)No reason for referral information availableBlSurprise Valley Community Hospital Work Phone: Summary Purpose Family History No Family History Records Found Relationship Condition Age at Onset Recorded Date/T melissa father Cardiac disease Unknown mother Cerebrovascular accident (CVA) Unknown Hypertension Unknown Malignant neoplasm of breast Unknown Advance Directives No Advanced Directives Records Found Advance Directive Response Recorded Date/ Time Do you have a Healthcare Power of Director Of Psychiatry? Yes December 03, 2024 5:47pm Advance Directive Response Recorded Date/ Time Do you have a Healthcare Power of Director Of Psychiatry? Yes December 03, 2024 5:47pm Advance Directives on File Yes Octob er 2024 10:11am Living Will Yes December 26 10:11am Do you have a Healthcare Power of Director Of Psychiatry? Yes December 26, 2024 10:11am Name of Medical Power of Director Of Psychiatry Crystal Vargas December 26, 2024 10:11am Advance Directives Yes December 26, 2024 10:11am Advance Directive Response Recorded Date/ Time Do you have a Healthcare Power of Director Of Psychiatry? Yes December 03, 2024 4:47pm Advance Directives on File Yes Octob er 2024 9:11am Living Will Yes December 26 9:11am Do you have a Healthcare Power of Director Of Psychiatry? Yes December 26, 2024 9:11am Name of Medical Power of Director Of Psychiatry Crystal Vargas December 26, 2024 9:11am Advance [...] duration less than 6 weeks HTN (hypertension) [id number] Chief Complaint 3 M FU 3 M [...] section and content) DATE CREATED AUTHOR 08/21/2017 [facility] ([place]) DATE CREATED AUTHOR AUTHOR'S ORGANIZ ATION 12/25/2024 [facility] DATE CREATED AUTHOR AUTHOR'S ORGANIZ ATION 01/10/2025 [facility] [place] Goals (unrecognized section and content) Goals may [...] Inactive Member Role Status Dates Dr. Luna sAhton DO Primary Care Pr ovider, Attending Provider, [...] Inactive Member Role/Relationship Status Dates Dr. Luna Asthon DO Primary Care Provider Active Start: November [...] 2024 End: December 12, 2024 Renay Stapleton MAGAZINE SUPERVISOR, MAGAZINE SUPERVISOR-C Nurse Practitioner Active Start: December 03, 2024 [...] Active Start: December 08, 2024 Renay Stapleton MAGAZINE SUPERVISOR, MAGAZINE SUPERVISOR-C Nurse Practitioner Active Start: December 08, 2024 [...] Active Start: December 09, 2024 Renay Stapleton MAGAZINE SUPERVISOR, MAGAZINE SUPERVISOR-C Nurse Practitioner Active Start: December 09, 2024 [...] Active Start: December 10, 2024 Renay Stapleton MAGAZINE SUPERVISOR, MAGAZINE SUPERVISOR-C Nurse Practitioner Active Start: December 10, 2024 Dr. Suraj Paz MD Attending physician Active Start: December 10, 2024 Dr. Suraj Paz MD Nurse Practitioner Active Start: December 10, 2024 Team Status: Active Member Role/Relationship Status Dates Dr. Luna Ashton DO Primary care physician Active Start: December 11, 2024 Dr. [facility] Active Start: December 11, [...] Active Start: December 11, 2024 Renay Stapleton MAGAZINE SUPERVISOR, MAGAZINE SUPERVISOR-C Nurse Practitioner Active Start: December 11, 2024 Dr. Suraj Paz MD Attending physician Active Start: December 11, 2024 Dr. Suraj Paz MD Nurse Practitioner Active Start: December 11, 2024 Team Status: Active Member Role/Relationship Status Dates Dr. Luna Ashton , Primary care physician Active Start: December 12, 2024 Dr. Om[facility] Active Start: December 12, [...] Active Start: December 12, 2024 Renay Stapleton MAGAZINE SUPERVISOR, MAGAZINE SUPERVISOR-C Nurse Practitioner Active Start: December 12, 2024 [...] 06, 2024 Dr. Omari [facility] Active Start: December 06, 2024 Dr. Claire Mazariegos MD Admitting physician Active Start: December 06, 2024 Dr. Claire Mazariegos MD Nurse Practitioner Active Start: December 06, 2024 Dr. Alyssia Bah MD Nurse Practitioner Active Start: December 06, 2024 Dr. Henry Evans MD Attending physician Active Start: December 06, 2024 Dr. Henry Eavns MD Referring Provider Active Start: December 06, [...] BE BASED ON THE PRIMARY CLINICAL RECORDS. [facility]. provides no warranty or guarantee of the accuracy or completeness of information in this document.
[2025-02-15] MEDS: 0.9% Saline Lock 10 ML Syringe IV ×2 (20:42→23:41)
--- NOTE | 2025-02-15 20:48 | PCM.HOSP.N ---
Hospitalist Note Message received from nursing, patient is complaining of 10 out of 10 abdominal pain despite multiple morphine doses. Assessed patient and found abdomen firmly distended, tender with palpation, and with tympanic bowel sounds. Reviewed abdominal CT, radiologist impression included hypertense proteinaceous cyst at the mid pole of the left kidney. Perinephric fat stranding. No hydronephrosis. No nephrolithiasis. Distended bladder with enlarged prostate. No bowel wall thickening. No bowel obstruction. Upon personal evaluation of CT images, oral contrast seen as far as ascending colon at hepatic flexure with small amount of stool burden. However, remaining colon has large amount of gaseous distention. Explained to patient, and his at bedside, the volume of gas distending his large intestine can/will cause stimulation of nerve endings to create the sensation of pain, severe at times. Patient reports last bowel movement yesterday, describes BM as complete and without straining. He denies hematochezia and melena. Denies use of laxatives or stool softeners. He does admit to ingestion of foods with higher sugar content in the last few days, which contributes to normal gut fletcher having increased gas production. Discussed diet restriction of high sugar foods, attempt to adhere to low FODMAP diet, for at least the next 2 weeks and attempt to reset gut fletcher. Reviewed options of stimulating gut motility to encourage elimination of gas from the colon, we decided on using a bisacodyl rectal suppository and metoclopramide 5 mg IV scheduled every 6 hours for the next 2 days, as oral intake does cause nausea which eliminates the use of MiraLAX. Encouraged limited use of opioids at this time, as this will slow down GI motility. Nursing communication entered, glargine at bedtime to be 6 units subcu for tonight, not his scheduled 21 units. I also ordered normal saline at 60 mL an hour for hydration until he can tolerate increased p.o. intake.
[2025-02-15] MEDS: 0.9% Normal Saline (1000mL) 1,000 ML 60 ML IV (21:08)
[2025-02-15] MEDS: Insulin Glargine-YFGN 100 UNIT/ML Pen 21 UNIT SC (21:17)
[2025-02-16] VITALS (8 sets, daily range): BP systolic 123–149; BP diastolic 59–75; PULSE 84–93; RESP 14–20; TEMP 36.7–37.8; O2SAT 94–97; BMI 23.7
[2025-02-16] MEDS: 0.9% Saline Lock 10 ML Syringe IV ×2 (06:26→14:05)
[2025-02-16 07:26] LABS: Hematocrit 22.3 % (40-54); Hemoglobin 7.7 g/dL (13.0-16.5); Immature Granulocytes Count 0.250 X10^3/uL (0.0-0.0); Mean Corp Hgb Conc 34.5 g/dL (32-36); Mean Corpuscular Volume 98.7 fL (80-94); Mean Platelet Vol. 10.3 fl (6.2-12.0); NRBC Flagged by Analyzer 0 % (0-5); POSITIVE DIFFERENTIAL YES; Platelet Count 103 K/mm3 (150-450); RBC Distribution Width CV 13.7 % (11.6-14.6); RBC Distribution Width SD 49.3 fl (35.1-43.9); Red Blood Count 2.26 M/mm3 (4.6-6.2); White Blood Count 14.3 K/mm3 (4.4-11.0)
[2025-02-16 07:34] LABS: Differential Indicated SCAN CRITERIA MET
[2025-02-16 07:44] LABS: AST(SGOT) 25 U/L (<=37); Alanine Aminotransfer ALT/SGPT 24 U/L (<=46); Albumin, Serum 3.5 g/dL (3.4-4.8); Alkaline Phosphatase 80 U/L (40-129); Anion Gap 13 (5-15); BUN 28 mg/dL (4-19); BUN/Creat Ratio 10.8 RATIO (10-20); Calcium,Total 7.2 mg/dL (7.6-11.0); Carbon Dioxide 24.7 mmol/L (21.0-32.0); Chloride 98 mmol/L (98-108); Estimated Creatinine Clearance 22.44 ml/min (50-250); Globulin 2.5 g/dL (2.2-4.2); Glucose 96 mg/dL (70-99); Potassium 4.5 mmol/L (3.3-5.1)
[2025-02-16] MEDS: Senna Tablet 1 TABLET PO (10:11)
[2025-02-16] MEDS: Pantoprazole Sodium 40 MG in 0.9% Normal Saline (100mL MB+) 100 ML 330 MG IV ×2 (10:11→21:12)
--- NOTE | 2025-02-16 11:00 | RAD_ITS ---
PROCEDURE: ABDOMEN SINGLE VIEW (PORTABLE) 02/16/2025 REASON FOR EXAM: WORSENING ABD DISTENSION, EVAL FOR SBO TECHNIQUE: Procedure Code: RADABD_P Modality: DX Procedure: ABDOMEN SINGLE VIEW (PORTABLE) COMPARISON: Prior CT scan dated February 15, 2025. FINDINGS: Bowel gas: Large amount of fecal material is seen throughout the colon. This is suggestive of constipation. Calcifications: No suspicious calcifications. Bones: Prior vertebroplasty of the L2 vertebrae. Findings suggestive of bony metastasis. Other: RAD/Abdomen Single View (Portable) IMPRESSION: Large amount of fecal material seen in the colon. Findings suggestive of bony metastasis. Reading Location: [facility]
--- NOTE | 2025-02-16 11:13 | PN.HOSP_ITS ---
Reason for Visit Chief Complaint: Epigastric pain Subjective Subjective Saw patient at bedside this morning, present. Patient sitting back in bed and mildly uncomfortable appearing due to ongoing abdominal pain. Abdomen was somewhat hard and distended on palpation for me. Patient reports passing minimal gas and has not had a bowel movement yet since admission. Notes that he was regular with bowel movements until few days ago. KUB ordered and this showed large amount of fecal material seen in the colon, no other concerning findings. I stopped back to see the patient early in the afternoon and he and nursing staff noted that he had a large bowel movement around lunchtime. Abdomen softer and less distended on repeat exam. No other acute concerns currently. Objective Data Objective Data Vital Signs: Vital Signs Temp Pulse Resp BP Pulse Ox O2 Del Method O2 Flow Rate 98.8 F 92 16 139/69 H 94 Room Air 2 02/16/25 10:00 02/16/25 10:11 02/16/25 10:00 02/16/25 10:11 02/16/25 10:45 02/16/25 10:45 02/16/25 10:00 Oxygen Flow Rate (L/min) 2 Oxygen Delivery Method Room Air Weight: 76.8 kg Body Mass Index (BMI) 23.7 Intake & Output: Intake and Output for Last 24 Hours 02/14/25 02/15/25 02/16/25 23:59 23:59 23:59 Intake Total 260 / 260 100 / 100 Balance 260 / 260 100 / 100 Lab / Micro Data 02/17/25 06:30 02/17/25 06:30 Labs: Laboratory Results - last 24 hr 02/15/25 17:58: POC Glucose 110 H 02/15/25 20:51: POC Glucose 119 H 02/16/25 06:25: POC Glucose 98 02/16/25 06:33: WBC 14.3 H, RBC 2.26 L, Hgb 7.7 L, Hct 22.3 L, MCV 98.7 H, MCH 34.1 H, MCHC 34.5, RDW Std Deviation 49.3 H, RDW Coeff of Scotty 13.7, Plt Count 103 L, MPV 10.3, Immature Gran % (Auto) 1.700 H, Neut % (Auto) 79.4 H, Lymph % (Auto) 5.3 L, [place] % (Auto) 13.5 H, Eos % (Auto) 0.0, Baso % (Auto) 0.1, A bsolute Neuts (auto) 11.3 H, Absolute Lymphs (auto) 0.76 L, Nucleated RBC % 0, Differential Comment COMMENT, Sodium 135, Potassium 4.5, Chloride 98, Carbon Dioxide 24.7, Anion Gap 13, BUN 28 H, Creatinine 2.61 H, Estim Creat Clear Calc 22.44 L, Est GFR (MDRD) Non-Af 23 L, BUN/Creatinine Ratio 10.8, Glucose 96, C alcium 7.2 L, Total Bilirubin 0.57, AST 25, ALT 24, Alkaline Phosphatase 80, Total Protein 6.1, Albumin 3.5, Globulin 2.5, Albumin/Globulin Ratio 1.4 Patient's Goals Of Care - F/U Goals Reviewed Goals of care reviewed with patient: NA-No significant change in clinical Status /major procedure scheduled Physical Exam Const alert, oriented x3 and average body habitus Constitutional Narrative: Elderly male, mildly fatigued and uncomfortable appearing due to abdominal discomfort, otherwise sitting back in bed and answering questions appropriately. General Appearance: cooperative HEENT normocephalic, head/scalp atraumatic, hearing grossly normal bilaterally, nasal mucous membranes and turbinates normal and moist oral mucous membranes Eyes PERRL, EOMs intact bilaterally and conjunctivae normal Neck full ROM Chest inspection of chest normal Resp normal respiratory effort, normal air movement, no use of accessory muscles and clear to auscultation bilaterally Cardio regular rate, regular rhythm, no murmurs and peripheral pulses 2+ throughout GI GI Narrative: Abdomen fairly hard and distended on palpation. Nontender to palpation. Hypoactive bowel sounds. Back/Spine normal ROM Extremity normal to inspection, full ROM and no pedal edema Skin no rashes or lesions noted Psych mental status grossly normal Assessment & Plan Assessment/Plan (1) Abdominal pain: PLAN: Plan Patient is an 84-year-old male who presented to [facility] ED on 02/15/2025 with epigastric/abdominal pain. 1. Abdominal pain suspected secondary to constipation ? Presented with primarily upper abdominal/epigastric pain that began on the morning of admission. CT abdomen pelvis with perinephric fat stranding and distended bladder with enlarged prostate noted, but these are stable from previous; no other concerning findings noted. Lipase only slightly elevated so did not meet criteria for pancreatitis. Has history of GERD that responded to IV PPI twice daily on a prior hospitalization so was thought this could be the etiology. UA notably was unremarkable patient with no infectious symptoms noted. However, overnight on day of admission patient had abdominal distention and worsening lower abdominal pain noted concerning for constipation. He was given 2 Dulcolax suppositories and did begin to pass gas. Abdomen still fairly hard and distended on morning of 02/16. KUB with large amount of fecal material seen in the colon. Bowel regimen escalated and patient with large bowel movement midday on 02/16. Okay to continue regular diet with increased bowel regimen. If patient continues to feel improved tomorrow, should be ready for discharge home. 2. ESRD on HD ? Nephrology following. Secondary to biopsy-proven multiple myeloma and ATN. Last HD on 02/14, patient currently on HD twice weekly. Will defer to nephrology on timing of next HD session. 3. Leukocytosis ? Patient with WBC count worsening from 9.5 > 14.3 on hospital day 2. Afebrile to this point. However, given his underlying multiple myeloma and severe constipation with possible nidus for infection, will empirically treat with IV Zosyn at this time. Monitor CBC daily. 4. Multiple myeloma ? Follows with oncology, last office visit on 02/13. Recently diagnosed in November. Was hospitalized in October for acute/subacute compression fracture of L1. He was then hospitalized in early November for acute on chronic kidney failure, anemia and malignant hypercalcemia requiring initiation of dialysis as above. He is on treatment with daratumumab and velcade and completed cycle 3 earlier this week. No significant side effects secondary to this therapy to this point. Notably calcium level was normal on admission. No inpatient needs, continue outpatient follow-up. 5. Chronic normocytic anemia ? Hemoglobin 8.5 on admit, stable at baseline. Decreased to 7.7 on hospital day 2, suspect in part due to some degree of volume overload in setting of ESRD. Continue to monitor daily CBC. 6. Type 2 diabetes mellitus ? Glucose 165 on admit. Most recent A1c 6.4% on 12/06. Treating with reduced dose of Lantus 10 units at night and sliding scale insulin with meals for now, adjust as needed. 7. History of nonobstructive CAD, hypertension, hyperlipidemia ? Normotensive during hospitalization. Continue home aspirin, statin, amlodipine, and Lopressor. 8. Hypothyroidism ? Continue home Synthroid. DVT prophylaxis: Heparin subcu CODE STATUS: Full code, verified Expected disposition: Home, 1 to 2 days Total clinical time spent by myself addressing the patient's medical issues, reviewing all the data, and collaborating with patient's care team: 42 minutes. Charges/Coding Visit Charges Inpatient E&M: 14835 Subs Hosp L2
--- NOTE | 2025-02-16 11:22 | CON.PCM.RE_ITS ---
Assessment & Plan Assessment/Plan (1) Acute renal failure: PLAN: HD dependent. biopsy proven myeloma and ATN. last HD Thursday. admitted with abdomen pain, currently not passing gas either. Bp is ok. hold HD for today. CXR is somewhat wet. abdomen pain work up as per GI. HPI Consult Data Date of Consult: 02/16/25 HPI Narrative Reason for Consultation: DEANGELO HD dependent HPI Narrative: LINA ORTA, is a 84 M who presents to hospital with abdomen pain. He is known to us from before. sustained DEANGELO in setting of myeloma kidney, started chemo in november. in partial renal recovery, currently on HD 2 times a week. Thursday and thursday. last HD was Thursday. presented with abdomen pain. FORMERLY [facility], [facility] Medical History Chronic renal failure (CRF), stage 5 Type II diabetes mellitus Anemia Multiple myeloma CKD (chronic kidney disease) stage 1, GFR 90 ml/min or greater Trigger finger of right hand Apical variant hypertrophic cardiomyopathy HLD (hyperlipidemia) Shingles (herpes zoster) polyneuropathy Acute urticaria GERD (gastroesophageal reflux disease) Hypothyroidism Home Medications ?Medication ?Instructions ?Recorded ?Last Taken ?Type blood sugar diagnostic (True #100 ea 02/11/23 Unknown Rx Metrix Glucose Test Strip) blood-glucose meter #1 ea 02/11/23 Unknown Rx atorvastatin 20 mg tablet 20 mg PO QDAY #90 tabs 09/2902/14/25 Rx lancets 30 gauge (Unilet Lancets) #100 ea 09/29/24 Unk nown Rx levothyroxine 100 mcg tablet 100 mcg PO DAILY #100 tab s 09/29/24 02/14/25 Rx pen needle, diabetic 29 gauge x #100 ea 09/29/24 Unkno wn Rx 1/2 (CareFine Pen Needle) ondansetron 4 mg disintegrating 4 mg PO Q8H PRN nausea and 11/29/24 12/02/24 Rx tablet vomiting #14 tabs insulin glargine 100 unit/mL (3 21 unit subcut QHS 06/2402/14/25 History mL) subcutaneous pen (Lantus Solostar U-100 Insulin) magnesium 250 mg tablet 250 mg PO QHS 12/03/2402/14 History acyclovir 200 mg capsule 200 mg PO BID #60 caps 12/1402/14/25 Rx insulin lispro 100 unit/mL 1 sliding scale dose subcut QACHS 12/15/24 02/14/25 Rx subcutaneous pen (Humalog KwikPen #15 mL (U-100) Insulin) aspirin 81 mg tablet 81 mg PO QDAY 12/19/2402/14 History dexamethasone 4 mg tablet 40 mg PO QWEEK 12/29/2401/30 History mirtazapine 7.5 mg tablet 7.5 mg PO QHS 90 days #90 ta bs 12/29/24 02/14/25 Rx omeprazole 20 mg capsule,delayed 20 mg PO QHS 12/29/24 02/14/25 History release amlodipine 5 mg tablet 5 mg PO DAILY 30 days #90 ta bs 01/02/25 02/14/25 Rx metoprolol tartrate 25 mg tablet 25 mg PO BID 30 days #180 tabs 01/02/25 02/14/25 Rx pramoxine 1 % topical foam 1 applic [place] BID #15 grams 1 04/11/24 02/14/25 Rx (Proctofoam) Allergy/AdvReac Type Severity Reaction Status Date / Time meloxicam (From Mobic) Allergy Severe unknown Verified 02/15/25 05:52 pentazocine (From Talwin) Allergy Severe unknown Verified 02/15/25 05:52 metaxalone AdvReac Intermediate Nausea Verified 02/15/25 05:52 Family History Father Heart disease Mother CVA (cerebral vascular accident) Hypertension Breast cancer Surgical History History of back surgery History of left knee surgery History of appendectomy History of cardiac cath Social History Smoking Status: Former smoker Tobacco: How many years used: 2 how long ago did patient quit smokin alcohol intake: never substance use type: does not use ROS ROS Narrative negative except above Physical Exam Narrative Alert awake oriented x 3 no obvious distress no pallor no icterus no JVD s1s2 no murmurs lungs clear abdomen soft no organomegaly no edema no cyanosis Lab / Micro Data 02/16/25 06:33 02/16/25 06:33 Labs: Laboratory Results - last 24 hr 02/15/25 17:58: POC Glucose 110 H 02/15/25 20:51: POC Glucose 119 H 02/16/25 06:25: POC Glucose 98 02/16/25 06:33: WBC 14.3 H, RBC 2.26 L, Hgb 7.7 L, Hct 22.3 L, MCV 98.7 H, MCH 34.1 H, MCHC 34.5, RDW Std Deviation 49.3 H, RDW Coeff of Scotty 13.7, Plt Count 103 L, MPV 10.3, Immature Gran % (Auto) 1.700 H, Neut % (Auto) 79.4 H, Lymph % (Auto) 5.3 L, [place] % (Auto) 13.5 H, Eos % (Auto) 0.0, Baso % (Auto) 0.1, A bsolute Neuts (auto) 11.3 H, Absolute Lymphs (auto) 0.76 L, Nucleated RBC % 0, Differential Comment COMMENT, Sodium 135, Potassium 4.5, Chloride 98, Carbon Dioxide 24.7, Anion Gap 13, BUN 28 H, Creatinine 2.61 H, Estim Creat Clear Calc 22.44 L, Est GFR (MDRD) Non-Af 23 L, BUN/Creatinine Ratio 10.8, Glucose 96, C alcium 7.2 L, Total Bilirubin 0.57, AST 25, ALT 24, Alkaline Phosphatase 80, Total Protein 6.1, Albumin 3.5, Globulin 2.5, Albumin/Globulin Ratio 1.4
[2025-02-16] MEDS: Piperacil/Tazobactam 3.375 GM in 0.9% Normal Saline (50mL MB+) 50 ML IV ×2 (12:18→21:34)
[2025-02-16] MEDS: 0.9% Normal Saline (1000mL) 1,000 ML 60 ML IV (14:05)
--- NOTE | 2025-02-16 16:29 | CASEMGMT ---
CEDENO Met with patient to complete CEDENO form. CEDENO form and its content were verbally explained and patient's questions were answered to the best of my ability.? Patient voiced understanding and signed CEDENO form.? Patient provided a copy of signed CEDENO form and original placed in patient's chart.? Patient had no further questions. Carolina Shelton, Discharge Planning Ass
[2025-02-16] MEDS: Magnesium Chloride 64 MG Delay Rel.Tablet 128 MG PO (21:24)
[2025-02-16] MEDS: Senna Tablet 2 TABLET PO (21:24)
[2025-02-16] MEDS: Insulin Glargine-YFGN 100 UNIT/ML Pen 10 UNIT SC (21:25)
[2025-02-17] VITALS (16 sets, daily range): BP systolic 99–146; BP diastolic 63–87; PULSE 84–132; RESP 16–18; TEMP 36.6–38.3; O2SAT 88–98; BMI 23.7; BMI 23.3; BMI 22.9
[2025-02-17] MEDS: 0.9% Saline Lock 10 ML Syringe IV ×7 (00:47→18:22)
[2025-02-17] MEDS: Piperacil/Tazobactam 3.375 GM in 0.9% Normal Saline (50mL MB+) 50 ML IV ×3 (05:02→21:20)
[2025-02-17 07:09] LABS: Hematocrit 21.6 % (40-54); Hemoglobin 7.4 g/dL (13.0-16.5); Mean Corp Hgb Conc 34.3 g/dL (32-36); Mean Corpuscular Volume 98.6 fL (80-94); Mean Platelet Vol. 10.7 fl (6.2-12.0); POSITIVE COUNT YES; Platelet Count 81 K/mm3 (150-450); RBC Distribution Width CV 13.8 % (11.6-14.6); RBC Distribution Width SD 50.4 fl (35.1-43.9); Red Blood Count 2.19 M/mm3 (4.6-6.2); White Blood Count 16.7 K/mm3 (4.4-11.0)
[2025-02-17 07:12] LABS: Scan Indicated on CBC? Y/N YES- FLAGS NOTED
[2025-02-17 07:34] LABS: Anion Gap 13 (5-15); BUN 37 mg/dL (4-19); BUN/Creat Ratio 12.7 RATIO (10-20); Calcium,Total 6.7 mg/dL (7.6-11.0); Carbon Dioxide 22.4 mmol/L (21.0-32.0); Chloride 95 mmol/L (98-108); Estimated Creatinine Clearance 20.27 ml/min (50-250); Glucose 148 mg/dL (70-99); Potassium 4.1 mmol/L (3.3-5.1)
[2025-02-17] MEDS: 0.9% Normal Saline 1,000 ML IV.SOLN. 1000 ML OPERA.SITE (10:44)
[2025-02-17] MEDS: PureFlow B 2K Dialysis Soln 1 BAG 6 BAG PF (10:45)
[2025-02-17] MEDS: Heparin Injection (Vial) 5,000 UNIT/ML VIAL 5000 UNIT SC ×2 (13:10→21:17)
--- NOTE | 2025-02-17 13:54 | PN.RENAL_ITS ---
Subjective Subjective feels better. pain is now limited more in RUQ area. Crackles on exam, fluid removal 2-3 L. passing gas and bowel movements. abdomen looks softer. Objective Data Objective Data Vital Signs: Vital Signs Temp Pulse Resp BP Pulse Ox O2 Del Method O2 Flow Rate 97.9 F 132 H 16 146/82 H 88 Room Air 2 02/17/25 12:43 02/17/25 13:10 02/17/25 12:43 02/17/25 12:43 02/17/25 12:43 02/17/25 12:43 02/17/25 12:40 Oxygen Flow Rate (L/min) 2 Oxygen Delivery Method Room Air Weight: 74.3 kg Body Mass Index (BMI) 22.9 Intake & Output: Intake and Output for Last 24 Hours 02/15/25 02/16/25 02/17/25 23:59 23:59 23:59 Intake Total 260 / 260 1450 / 1450 1098 / 1098 Output Total 2610 / 2610 Balance 260 / 260 1450 / 1450 -1512 / -1512 Lab / Micro Data 02/17/25 06:30 02/17/25 06:30 Labs: Laboratory Results - last 24 hr 02/16/25 17:03: POC Glucose 143 H 02/16/25 21:17: POC Glucose 197 H 02/17/25 06:03: POC Glucose 155 H 02/17/25 06:30: WBC 16.7 H, RBC 2.19 L, Hgb 7.4 L, Hct 21.6 L, MCV 98.6 H, MCH 33.8 H, MCHC 34.3, RDW Std Deviation 50.4 H, RDW Coeff of Scotty 13.8, Plt Count 81 L, MPV 10.7, Differential Comment , Sodium 130 L, Potassium 4.1, Chloride 95 L, Carbon Dioxide 22.4, Anion Gap 13, BUN 37 H, Creatinine 2.89 H, Estim Creat Clear Calc 20.27 L, Est GFR (MDRD) Non-Af 21 L, BUN/Creatinine Ratio 12.7, G lucose 148 H, Calcium 6.7 L 02/17/25 12:08: POC Glucose 103 Physical Exam Narrative Alert awake oriented x 3 no obvious distress no pallor no icterus no JVD s1s2 no murmurs lungs clear abdomen soft no organomegaly no edema no cyanosis Assessment & Plan Assessment/Plan (1) Acute renal failure: PLAN: HD dependent. biopsy proven myeloma and ATN. last HD Thursday. admitted with abdomen pain, currently not passing gas either. Bp is ok. hold HD for today. CXR is somewhat wet. abdomen pain work up as per GI. 02/17/25. HD today. next HD thursday. CXR was wet. has rales on exam. not completely recovered yet. will continue HD twice a week for now. abdomen pain better.
[2025-02-17 14:41] LABS: Hematocrit 21.8 % (40-54); Hemoglobin 7.4 g/dL (13.0-16.5); Mean Corp Hgb Conc 33.9 g/dL (32-36); Mean Corpuscular Volume 98.6 fL (80-94); Mean Platelet Vol. 10.1 fl (6.2-12.0); POSITIVE COUNT YES; Platelet Count 77 K/mm3 (150-450); RBC Distribution Width CV 13.7 % (11.6-14.6); RBC Distribution Width SD 48.8 fl (35.1-43.9); Red Blood Count 2.21 M/mm3 (4.6-6.2); White Blood Count 17.1 K/mm3 (4.4-11.0)
--- NOTE | 2025-02-17 14:52 | PN.HOSP_ITS ---
Reason for Visit Chief Complaint: Epigastric pain Subjective Subjective Saw patient at bedside this morning. He had to started HD when I saw him. He continues to have some abdominal discomfort but notes that he had another bowel movement this morning. He otherwise continues to feel fatigued but no other new concerns this morning. Objective Data Objective Data Vital Signs: Vital Signs Temp Pulse Resp BP Pulse Ox O2 Del Method O2 Flow Rate 101 F H 119 H 18 108/63 98 Nasal Cannula 2 02/17/25 14:05 02/17/25 14:05 02/17/25 14:05 02/17/25 14:05 02/17/25 14:05 02/17/25 14:16 02/17/25 14:16 Oxygen Flow Rate (L/min) 2 Oxygen Delivery Method Nasal Cannula Weight: 74.3 kg Body Mass Index (BMI) 22.9 Intake & Output: Intake and Output for Last 24 Hours 02/15/25 02/16/25 02/17/25 23:59 23:59 23:59 Intake Total 260 / 260 1450 / 1450 1098 / 1098 Output Total 2610 / 2610 Balance 260 / 260 1450 / 1450 -1512 / -1512 Lab / Micro Data 02/17/25 14:20 02/17/25 06:30 Labs: Laboratory Results - last 24 hr 02/16/25 17:03: POC Glucose 143 H 02/16/25 21:17: POC Glucose 197 H 02/17/25 06:03: POC Glucose 155 H 02/17/25 06:30: WBC 16.7 H, RBC 2.19 L, Hgb 7.4 L, Hct 21.6 L, MCV 98.6 H, MCH 33.8 H, MCHC 34.3, RDW Std Deviation 50.4 H, RDW Coeff of Scotty 13.8, Plt Count 81 L, MPV 10.7, Differential Comment , Sodium 130 L, Potassium 4.1, Chloride 95 L, Carbon Dioxide 22.4, Anion Gap 13, BUN 37 H, Creatinine 2.89 H, Estim Creat Clear Calc 20.27 L, Est GFR (MDRD) Non-Af 21 L, BUN/Creatinine Ratio 12.7, G lucose 148 H, Calcium 6.7 L 02/17/25 12:08: POC Glucose 103 02/17/25 14:20: WBC 17.1 H, RBC 2.21 L, Hgb 7.4 L, Hct 21.8 L, MCV 98.6 H, MCH 33.5 H, MCHC 33.9, RDW Std Deviation 48.8 H, RDW Coeff of Scotty 13.7, Plt Count 77 L, MPV 10.1 Patient's Goals Of Care - F/U Goals Reviewed Goals of care reviewed with patient: NA-No significant change in clinical Status /major procedure scheduled Physical Exam Const alert, oriented x3 and average body habitus Constitutional Narrative: Elderly male, mildly fatigued but otherwise sitting back comfortably in bed, conversing normally, in no acute distress. General Appearance: cooperative HEENT normocephalic, head/scalp atraumatic, hearing grossly normal bilaterally, nasal mucous membranes and turbinates normal and moist oral mucous membranes Eyes PERRL, EOMs intact bilaterally and conjunctivae normal Neck full ROM Chest inspection of chest normal Resp normal respiratory effort, normal air movement, no use of accessory muscles and clear to auscultation bilaterally Cardio regular rate, regular rhythm, no murmurs and peripheral pulses 2+ throughout GI GI Narrative: Abdomen mildly distended and mildly tender to palpation but soft today, improving. Back/Spine normal ROM Extremity normal to inspection, full ROM and no pedal edema Skin no rashes or lesions noted Psych mental status grossly normal Assessment & Plan Assessment/Plan (1) Abdominal pain: PLAN: Plan Patient is an 84-year-old male who presented to [facility] ED on 02/15/2025 with epigastric/abdominal pain. 1. Abdominal pain suspected secondary to constipation ? Presented with primarily upper abdominal/epigastric pain that began on the morning of admission. CT abdomen pelvis with perinephric fat stranding and distended bladder with enlarged prostate noted, but these are stable from previous; no other concerning findings noted. Lipase only slightly elevated so did not meet criteria for pancreatitis. Has history of GERD that responded to IV PPI twice daily on a prior hospitalization so was thought this could be the etiology. UA notably was unremarkable patient with no infectious symptoms noted. However, overnight on day of admission patient had abdominal distention and worsening lower abdominal pain noted concerning for constipation. He was given 2 Dulcolax suppositories and did begin to pass gas. Abdomen still fairly hard and distended on morning of 02/16. KUB with large amount of fecal material seen in the colon. Bowel regimen escalated and patient with large bowel movement midday on 02/16. Okay to continue regular diet with increased bowel regimen. Continues to pass gas and bowel movements, continue bowel regimen. 2. ESRD on HD ? Nephrology following. Secondary to biopsy-proven multiple myeloma and ATN. Currently on HD twice weekly. Had HD session this morning and did become tachycardic to the 120s during this but was able to have 2610 mL removed. Next dialysis treatment planned for Thursday. 3. Leukocytosis ? Patient with WBC count 9.5 on admit. However, worsened to 14 on hospital day 2 and has continued to slowly worsen with most recent WBC count 17 on 02/17. Spiked a fever of 101F on 02/17 as well despite being on IV Zosyn. Unclear source of infection at this time. Will initiate IV vancomycin in addition to IV Zosyn and blood cultures sent. Continue to monitor CBC daily. 4. Multiple myeloma ? Follows with oncology, last office visit on 02/13. Recently diagnosed in November. Was hospitalized in October for acute/subacute compression fracture of L1. He was then hospitalized in early November for acute on chronic kidney failure, anemia and malignant hypercalcemia requiring initiation of dialysis as above. He is on treatment with daratumumab and velcade and completed cycle 3 earlier this week. No significant side effects secondary to this therapy to this point. Notably calcium level was normal on admission. No inpatient needs, continue outpatient follow-up. 5. Mild acute on chronic anemia ? Hemoglobin 8.5 on admit, stable at baseline. Slowly decreasing during hospitalization, most recent hemoglobin 7.4 on 02/17. Notably, hemoglobin remained at 7.4 despite volume removal from HD. No source of bleeding noted. Continue to monitor CBC daily. 6. Type 2 diabetes mellitus ? Glucose 165 on admit. Most recent A1c 6.4% on 12/06. Treating with reduced dose of Lantus 10 units at night and sliding scale insulin with meals for now, adjust as needed. 7. History of nonobstructive CAD, hypertension, hyperlipidemia ? Normotensive during hospitalization. Continue home aspirin, statin, amlodipine, and Lopressor. 8. Hypothyroidism ? Continue home Synthroid. *Patient was admitted under observation status but given his worsening leukocytosis and concern for infection of unclear etiology, he will be transitioned to inpatient status today. DVT prophylaxis: Heparin subcu CODE STATUS: Full code, verified Expected disposition: Home, TBD Total clinical time spent by myself addressing the patient's medical issues, reviewing all the data, and collaborating with patient's care team: 41 minutes. Charges/Coding Visit Charges Inpatient E&M: 06716 Subs Hosp L2
[2025-02-17] MEDS: Vancomycin HCl 2,000 MG in 0.9% Normal Saline (500mL Bag) 500 ML 250 MG IV (16:17)
--- NOTE | 2025-02-17 17:44 | CASEMGMT ---
RN CM in to discuss needs at discharge, at bedside. Patient denies needs or help at discharge. Patient and had no further questions or concerns.
--- NOTE | 2025-02-17 18:21 | PCM.RX.CS ---
Consult Antibiotic Management Pharmacy has been consulted to manage selected antibiotic: Vancomycin Type of Intervention Type of Consult: New start Suspected Infection Suspected Infection: Other Labs Labs: Sodium 130 mmol/L (133-145) L 02/17/25 06:30 Potassium 4.1 mmol/L (3.3-5.1) 02/17/25 06:30 Chloride 95 mmol/L (98-108) L 02/17/25 06:30 Carbon Dioxide 22.4 mmol/L (21.0-32.0) 02/17/25 06:30 Anion Gap 13 (5-15) 02/17/25 06:30 BUN 37 mg/dL (4-19) H 02/17/25 06:30 Creatinine 2.89 mg/dL (0.70-1.20) H 02/17/25 06:30 Est GFR (MDRD) Non-Af 21 (>60) L 02/17/25 06:30 BUN/Creatinine Ratio 12.7 RATIO (10-20) 02/17/25 06:30 Glucose 148 mg/dL (70-99) H 02/17/25 06:30 Pharmacy Plan for Drug Dosing Pharmacy Plan for Drug Dosing: NEW START IV VANCOMYCIN Consulting Physician: Lacey Indication: unknown source Goal Trough: 15-20 mg/dL SrCr: 2.89 - HD CrCl: HD Comments: loading dose of 2000mg given 02/17/25 @ 1617 after HD Vancomycin Dose: Will not schedule maintenance dose as pt is on HD. Per nephrology note, next HD on Thursday. Will order pre-HD random level for Thursday. Pending Level: 02/20/25 @ 0600 - random Pharmacy Service will continue to monitor and adjust dosing as required.
[2025-02-17] MEDS: Insulin Glargine-YFGN 100 UNIT/ML Pen 10 UNIT SC (21:16)
[2025-02-17] MEDS: Magnesium Chloride 64 MG Delay Rel.Tablet 128 MG PO (21:26)
[2025-02-18] VITALS (13 sets, daily range): BP systolic 107–131; BP diastolic 56–72; PULSE 94–111; RESP 18–20; TEMP 36.3–37.9; O2SAT 93–98; BMI 23.1
[2025-02-18] MEDS: Piperacil/Tazobactam 3.375 GM in 0.9% Normal Saline (50mL MB+) 50 ML IV ×3 (05:10→21:29)
[2025-02-18 06:33] LABS: Hematocrit 20.5 % (40-54); Hemoglobin 6.9 g/dL (13.0-16.5); Mean Corp Hgb Conc 33.7 g/dL (32-36); Mean Corpuscular Volume 99.0 fL (80-94); Mean Platelet Vol. 11.1 fl (6.2-12.0); POSITIVE COUNT YES; Platelet Count 80 K/mm3 (150-450); RBC Distribution Width CV 13.8 % (11.6-14.6); RBC Distribution Width SD 49.9 fl (35.1-43.9); Red Blood Count 2.07 M/mm3 (4.6-6.2); White Blood Count 15.8 K/mm3 (4.4-11.0)
[2025-02-18 06:59] LABS: Anion Gap 12 (5-15); BUN 33 mg/dL (4-19); BUN/Creat Ratio 12.2 RATIO (10-20); Calcium,Total 7.2 mg/dL (7.6-11.0); Carbon Dioxide 22.5 mmol/L (21.0-32.0); Chloride 98 mmol/L (98-108); Estimated Creatinine Clearance 21.77 ml/min (50-250); Glucose 143 mg/dL (70-99); Potassium 3.7 mmol/L (3.3-5.1)
[2025-02-18] MEDS: Psyllium 1 PACKET PO (09:47)
[2025-02-18] MEDS: Heparin Injection (Vial) 5,000 UNIT/ML VIAL 5000 UNIT SC ×2 (09:47→21:28)
[2025-02-18] MEDS: Senna Tablet 2 TABLET PO (09:48)
--- NOTE | 2025-02-18 10:22 | PN.HOSP_ITS ---
Reason for Visit Chief Complaint: Epigastric pain Subjective Subjective Saw patient at bedside this morning. Patient appeared similar today to yesterday, was mildly fatigued appearing but otherwise answering questions appropriately. He denied any abdominal pain or discomfort today. Denied any fevers or chills. No other new concerns this morning. Objective Data Objective Data Vital Signs: Vital Signs Temp Pulse Resp BP Pulse Ox O2 Del Method O2 Flow Rate 97.9 F 94 18 107/72 98 Room Air 2 02/18/25 08:32 02/18/25 08:32 02/18/25 08:32 02/18/25 08:32 02/18/25 08:32 02/18/25 08:32 02/17/25 14:16 Oxygen Flow Rate (L/min) 2 Oxygen Delivery Method Room Air Weight: 75 kg Body Mass Index (BMI) 23.1 Intake & Output: Intake and Output for Last 24 Hours 02/16/25 02/17/25 02/18/25 23:59 23:59 23:59 Intake Total 1450 / 1450 2168 / 2168 50 / 50 Output Total 2610 / 2610 Balance 1450 / 1450 -442 / -442 50 / 50 Lab / Micro Data 02/18/25 05:19 02/18/25 05:19 Labs: Laboratory Results - last 24 hr 02/17/25 12:08: POC Glucose 103 02/17/25 14:20: WBC 17.1 H, RBC 2.21 L, Hgb 7.4 L, Hct 21.8 L, MCV 98.6 H, MCH 33.5 H, MCHC 33.9, RDW Std Deviation 48.8 H, RDW Coeff of Scotty 13.7, Plt Count 77 L, MPV 10.1 02/17/25 16:19: POC Glucose 226 H 02/17/25 21:14: POC Glucose 195 H 02/18/25 05:19: WBC 15.8 H, RBC 2.07 L, Hgb 6.9 L, Hct 20.5 L, MCV 99.0 H, MCH 33.3 H, MCHC 33.7, RDW Std Deviation 49.9 H, RDW Coeff of Scotty 13.8, Plt Count 80 L, MPV 11.1, Sodium 133, Potassium 3.7, Chloride 98, Carbon Dioxide 22.5, Anion Gap 12, BUN 33 H, Creatinine 2.68 H, Estim Creat Clear Calc 21.77 L, Est GFR (MDRD) Non-Af 23 L, BUN/Creatinine Ratio 12.2, Glucose 143 H, Calcium 7.2 L 02/18/25 06:14: POC Glucose 135 H 02/18/25 07:06: Blood Type O POSITIVE, Antibody Screen NEGATIVE, Crossmatch See Detail Patient's Goals Of Care - F/U Goals Reviewed Goals of care reviewed with patient: NA-No significant change in clinical Status /major procedure scheduled Physical Exam Const alert, oriented x3 and average body habitus Constitutional Narrative: Elderly male, mildly fatigued but otherwise sitting back comfortably in bed, conversing normally, in no acute distress. General Appearance: cooperative HEENT normocephalic, head/scalp atraumatic, hearing grossly normal bilaterally, nasal mucous membranes and turbinates normal and moist oral mucous membranes Eyes PERRL, EOMs intact bilaterally and conjunctivae normal Neck full ROM Chest inspection of chest normal Resp normal respiratory effort, normal air movement, no use of accessory muscles and clear to auscultation bilaterally Cardio regular rate, regular rhythm, no murmurs and peripheral pulses 2+ throughout GI GI Narrative: Abdomen mildly distended and mildly tender to palpation but soft, stable. Back/Spine normal ROM Extremity normal to inspection, full ROM and no pedal edema Skin no rashes or lesions noted Psych mental status grossly normal Assessment & Plan Assessment/Plan (1) Abdominal pain: PLAN: Plan Patient is an 84-year-old male who presented to [facility] ED on 02/15/2025 with epigastric/abdominal pain. 1. Abdominal pain ? Presented with primarily upper abdominal/epigastric pain that began on the morning of admission. CT abdomen pelvis with perinephric fat stranding and distended bladder with enlarged prostate noted, but these are stable from previous; no other concerning findings noted. Lipase only slightly elevated so did not meet criteria for pancreatitis. UA was unremarkable. Overnight on day of admission patient had abdominal distention and worsening lower abdominal pain noted concerning for constipation. KUB with large amount of fecal material seen in the colon. Began aggressive bowel regimen with patient having several soft bowel movements and abdominal distention and pain are improving. Unclear source of infection as below so empirically treated with antibiotic as below. Continue bowel regimen and encouraging up and out of bed as able. 2. Leukocytosis ? Patient with WBC count 9.5 on admit. However, worsened to 14 on hospital day 2 and then up to 17 on 02/17. Spiked a fever of 101F on 02/17 as well despite being on IV Zosyn. Unclear source of infection at this time. Initiated on IV vancomycin in addition to IV Zosyn on 02/17 and blood cultures sent. WBC count slightly downtrending on 02/18 and no further fevers, continue IV antibiotics and follow-up blood cultures. Continue to monitor CBC daily. 3. Acute on chronic anemia ? Hemoglobin 8.5 on admit, stable at baseline. Slowly decreasing during hospitalization for unclear reason, no source of bleeding noted. Hemoglobin 6.9 on 02/18, so will transfuse 1 unit of blood today and follow-up repeat CBC this afternoon. Will hold subcu heparin and utilize SCDs for DVT prophylaxis for now. Continue to monitor CBC daily. 4. ESRD on HD ? Nephrology following. Secondary to biopsy-proven multiple myeloma and ATN. Currently on HD twice weekly. Had HD session this morning and did become tachycardic to the 120s during this but was able to have 2610 mL removed. Next dialysis treatment planned for Thursday. 5. Acute debility ? PT/OT/case management following. Patient with reported good functional status prior to admission so therapy was not initially consulted. However, his hospitalization has been prolonged given issues above and patient appears weaker than his normal. Appreciate therapy recommendations. 6. Multiple myeloma ? Follows with oncology, last office visit on 02/13. Recently diagnosed in November. Was hospitalized in October for acute/subacute compression fracture of L1. He was then hospitalized in early November for acute on chronic kidney failure, anemia and malignant hypercalcemia requiring initiation of dialysis as above. He is on treatment with daratumumab and velcade and completed cycle 3 earlier this week. No significant side effects secondary to this therapy to this point. Notably calcium level was normal on admission. No inpatient needs, continue outpatient follow-up. 7. Type 2 diabetes mellitus ? Glucose 165 on admit. Most recent A1c 6.4% on 12/06. Treating with reduced dose of Lantus 10 units at night and sliding scale insulin with meals for now, adjust as needed. 8. History of nonobstructive CAD, hypertension, hyperlipidemia ? Normotensive during hospitalization. Continue home aspirin, statin, amlodipine, and Lopressor. 9. Hypothyroidism ? Continue home Synthroid. DVT prophylaxis: SCDs CODE STATUS: Full code, verified Expected disposition: TBD Total clinical time spent by myself addressing the patient's medical issues, reviewing all the data, and collaborating with patient's care team: 42 minutes. Charges/Coding Visit Charges Inpatient E&M: 91904 Subs Hosp L2
--- NOTE | 2025-02-18 13:30 | CASEMGMT ---
BUCK SHETTY Assessment: Face to Face with pt for initial transition planning/care coordination assessment. BUCK SHETTY introduced self and role at [facility], pt voices understanding and consents to assessment. Pt is A&O x4 and answers all questions appropriately at this time. Pt sitting up in bed in no distress with at bedside. Care providers, pharmacy, and demographics verified/updated. Admitting Dx: epigastric pain PCP:Reynold Specialists:Christine, heme/onc; Mehdi, nephro; Rosa, eyes Preferred Pharmacy: [facility] Insurance: [facility] Prescription Benefit: yes LNOK: Crystal Vargas, ; Theresa Mcpherson, dtr Living Arrangements: Pt lives with in a two story home with 2 steps to enter. Pt reports FFSU and indep in ADL/IADLs. Pt denies concerns at home. Transportation: Pt drives self and denies concerns with transportation. DME:shower chair, cane, walker HHC/SNF: Pt has had [facility] HHC in the past and denies SNF stays. Pt states no concerns with going home at time of dc. Pt has dialysis on /Sat at [facility] with chair time of 9:40am. Pt has alternate schedule for the next two weeks d/t the holiday. Pt reports having palliative care but then has been dc'd. Pt states no further concerns/needs. CM to follow. Advised pt to ask CM if any further questions/concerns/needs arise, voices understanding. Pt Goal: Home Plan: Home Caity JANE CM
[2025-02-18] MEDS: Polyethylene Glycol 3350 17 GM PACKET PO (13:56)
[2025-02-18] MEDS: Magnesium Chloride 64 MG Delay Rel.Tablet 128 MG PO (21:27)
[2025-02-18] MEDS: Insulin Glargine-YFGN 100 UNIT/ML Pen 10 UNIT SC (21:28)
[2025-02-18] MEDS: 0.9% Saline Lock 10 ML Syringe IV (21:29)
[2025-02-19 03:20] VITALS: BP 128/75; PULSE 102; RESP 16; TEMP 37.4; O2SAT 94
[2025-02-19 03:56] VITALS: BMI 23.8
[2025-02-19] MEDS: Piperacil/Tazobactam 3.375 GM in 0.9% Normal Saline (50mL MB+) 50 ML IV ×3 (06:18→22:27)
[2025-02-19] MEDS: 0.9% Saline Lock 10 ML Syringe IV ×2 (06:19→22:29)
[2025-02-19 07:03] LABS: Hematocrit 23.0 % (40-54); Hemoglobin 7.7 g/dL (13.0-16.5); Mean Corp Hgb Conc 33.5 g/dL (32-36); Mean Corpuscular Volume 94.7 fL (80-94); Mean Platelet Vol. 10.8 fl (6.2-12.0); POSITIVE COUNT YES; Platelet Count 89 K/mm3 (150-450); RBC Distribution Width CV 17.2 % (11.6-14.6); RBC Distribution Width SD 58.8 fl (35.1-43.9); Red Blood Count 2.43 M/mm3 (4.6-6.2); Scan Indicated on CBC? Y/N NO; White Blood Count 8.1 K/mm3 (4.4-11.0)
[2025-02-19 07:21] LABS: Anion Gap 15 (5-15); BUN 37 mg/dL (4-19); BUN/Creat Ratio 11.5 RATIO (10-20); Calcium,Total 7.1 mg/dL (7.6-11.0); Carbon Dioxide 20.1 mmol/L (21.0-32.0); Chloride 98 mmol/L (98-108); Estimated Creatinine Clearance 18.08 ml/min (50-250); Glucose 106 mg/dL (70-99); Potassium 3.5 mmol/L (3.3-5.1)
[2025-02-19 09:20] VITALS: BP 139/85; PULSE 112; RESP 18; TEMP 36.7; O2SAT 96
[2025-02-19 09:30] VITALS: BP 139/85; PULSE 112
--- NOTE | 2025-02-19 09:58 | PCM.PN.HOSP ---
Reason for Visit Chief Complaint: Epigastric pain Subjective Subjective Saw patient at bedside this morning. Patient was sitting at the edge of the bed and noted that he had had 3 episodes of diarrhea so far this morning. Does continue to have some abdominal distention on exam and reports mild abdominal discomfort, similar to previous days. He otherwise denies any fevers or chills this morning. No other acute concerns today. Objective Data Objective Data Vital Signs: Vital Signs Temp Pulse Resp BP Pulse Ox O2 Del Method O2 Flow Rate 98.1 F 112 H 18 139/85 H 96 Room Air 2 02/19/25 09:20 02/19/25 09:30 02/19/25 09:20 02/19/25 09:30 02/19/25 09:20 02/19/25 09:22 02/17/25 14:16 Oxygen Flow Rate (L/min) 2 Oxygen Delivery Method Room Air Weight: 77.3 kg Body Mass Index (BMI) 23.8 Intake & Output: Intake and Output for Last 24 Hours 02/17/25 02/18/25 02/19/25 23:59 23:59 23:59 Intake Total 2168 / 2168 1000 / 1000 50 / 50 Output Total 2610 / 2610 250 / 250 Balance -442 / -442 1000 / 875 -200 / -200 Lab / Micro Data 02/19/25 06:47 02/19/25 06:47 Labs: Laboratory Results - last 24 hr 02/18/25 07:06: Blood Type O POSITIVE, Antibody Screen NEGATIVE, Crossmatch See Detail 02/18/25 11:18: POC Glucose 143 H 02/18/25 16:34: POC Glucose 183 H 02/18/25 21:26: POC Glucose 231 H 02/19/25 06:18: POC Glucose 119 H 02/19/25 06:47: WBC 8.1, RBC 2.43 L, Hgb 7.7 L, Hct 23.0 L, MCV 94.7 H, MCH 31.7, MCHC 33.5, RDW Std Deviation 58.8 H, RDW Coeff of Scotty 17.2 H, Plt Count 89 L, MPV 10.8, Sodium 133, Potassium 3.5, Chloride 98, Carbon Dioxide 20.1 L, Anion Gap 15, BUN 37 H, Creatinine 3.24 H, Estim Creat Clear Calc 18.08 L, Est GFR (MDRD) Non-Af 18 L, BUN/Creatinine Ratio 11.5, Glucose 106 H, Calcium 7.1 L Micro: Microbiology 02/17/25 15:29 Blood Culture (Wb) - Left Hand Blood Culture - Preliminary No growth in 48 hours. 02/17/25 15:29 Blood Culture (Wb) - Left Forearm Blood Culture - Preliminary No growth in 48 hours. Patient's Goals Of Care - F/U Goals Reviewed Goals of care reviewed with patient: NA-No significant change in clinical Status /major procedure scheduled Physical Exam Const alert, oriented x3 and average body habitus Constitutional Narrative: Elderly male, mildly fatigued but otherwise sitting back comfortably in bed, conversing normally, in no acute distress. Stable. General Appearance: cooperative HEENT normocephalic, head/scalp atraumatic, hearing grossly normal bilaterally, nasal mucous membranes and turbinates normal and moist oral mucous membranes Eyes PERRL, EOMs intact bilaterally and conjunctivae normal Neck full ROM Chest inspection of chest normal Resp normal respiratory effort, normal air movement, no use of accessory muscles and clear to auscultation bilaterally Cardio regular rate, regular rhythm, no murmurs and peripheral pulses 2+ throughout GI GI Narrative: Abdomen mildly distended and mildly tender to palpation but soft, stable. Back/Spine normal ROM Extremity normal to inspection, full ROM and no pedal edema Skin no rashes or lesions noted Psych mental status grossly normal Assessment & Plan Assessment/Plan (1) Abdominal pain: PLAN: Plan Patient is an 84-year-old male who presented to [facility] ED on 02/15/2025 with epigastric/abdominal pain. 1. Abdominal pain ? Presented with primarily upper abdominal/epigastric pain that began on the morning of admission. CT abdomen pelvis with perinephric fat stranding and distended bladder with enlarged prostate noted, but these are stable from previous; no other concerning findings noted. Lipase only slightly elevated so did not meet criteria for pancreatitis. UA was unremarkable. Overnight on day of admission patient had abdominal distention and worsening lower abdominal pain noted concerning for constipation. KUB with large amount of fecal material seen in the colon. Began aggressive bowel regimen with patient having several soft bowel movements and abdominal distention and pain are improving. Unclear source of infection as below so empirically treated with antibiotic as below. Patient with episodes of diarrhea on 02/19, de-escalating bowel regimen and will continue to monitor. 2. Leukocytosis, improved ? Patient with WBC count 9.5 on admit. However, worsened to 14 on hospital day 2 and then up to 17 on 02/17. Spiked a fever of 101F on 02/17 as well despite being on IV Zosyn. Unclear source of infection at this time. Initiated on IV vancomycin in addition to IV Zosyn on 02/17 and blood cultures sent. WBC count improved back to 8.1 by 02/19 and no further fevers noted. Blood cultures remain pending. Will continue IV antibiotics for now. Continue to monitor CBC daily. 3. Acute on chronic anemia, thrombocytopenia ? Hemoglobin 8.5 on admit, stable at baseline. Platelet count 129, also stable at baseline. Both counts have slowly decreased during hospitalization for unclear reason, no source of bleeding noted. Hemoglobin 6.9 on 02/18; transfused 1 unit of blood. Most recent hemoglobin 7.7 on 02/19. Platelet count bird of 77 on 02/17, now remaining stable with most recent platelet count 89 on 02/19. HIT antibody sent. Seems most likely secondary to biotic therapy for multiple myeloma as below. Will continue to hold subcu heparin and utilize SCDs for DVT prophylaxis for now. Continue to monitor CBC daily. 4. ESRD on HD ? Nephrology following. Secondary to biopsy-proven multiple myeloma and ATN. Currently on HD twice weekly. Had HD session this morning and did become tachycardic to the 120s during this but was able to have 2610 mL removed. Next dialysis treatment planned for Thursday. 5. Acute debility ? PT/OT/case management following. Patient with reported good functional status prior to admission so therapy was not initially consulted. However, his hospitalization has been prolonged given issues above and patient appears weaker than his normal. Appreciate therapy recommendations. 6. Multiple myeloma ? Follows with oncology, last office visit on 02/13. Recently diagnosed in November. Was hospitalized in October for acute/subacute compression fracture of L1. He was then hospitalized in early November for acute on chronic kidney failure, anemia and malignant hypercalcemia requiring initiation of dialysis as above. He is on treatment with daratumumab and velcade and completed cycle 3 earlier this week. No significant side effects secondary to this therapy to this point. Notably calcium level was normal on admission. No inpatient needs, continue outpatient follow-up. 7. Type 2 diabetes mellitus ? Glucose 165 on admit. Most recent A1c 6.4% on 12/06. Treating with reduced dose of Lantus 10 units at night and sliding scale insulin with meals for now, adjust as needed. 8. History of nonobstructive CAD, hypertension, hyperlipidemia ? Normotensive during hospitalization. Continue home aspirin, statin, amlodipine, and Lopressor. 9. Hypothyroidism ? Continue home Synthroid. DVT prophylaxis: SCDs CODE STATUS: Full code, verified Expected disposition: TBD Total clinical time spent by myself addressing the patient's medical issues, reviewing all the data, and collaborating with patient's care team: 39 minutes. Charges/Coding Visit Charges Inpatient E&M: 68592 Subs Hosp L2
--- NOTE | 2025-02-19 14:25 | CT_ITS ---
PROCEDURE: CT CHEST, ABD, PEL W/CONTRAST 02/19/2025 REASON FOR EXAM: PERSISTENT ABD PAIN, SINUS TACHY W/ SOB TECHNIQUE: Chest, abdomen and pelvis CT with intravenous contrast. Coronal and Sagittal reconstruction series were provided. One or more dose reduction techniques were used (e.g., Automated exposure control, adjustment of the mA and/or kV according to patient size, use of iterative reconstruction technique. PATIENT PREPARATION: Per protocol CONTRAST: Isovue 370 VOLUME: 95mL RADIATION DOSE SUMMARY: DLP: 1285.91 MGycm COMPARISON: CT abdomen/pelvis 02/15/2025 FINDINGS: CT CHEST: Lines/devices: A right-sided central venous catheter extends to the superior vena cava. Pulmonary parenchyma: Compressive atelectasis at the lower lobe. Airways: The central airways are patent. Pleural space: Small to moderate bilateral pleural effusions. The right pleural effusion has increased in size when compared to imaging from 02/15/2025. Heart and pericardium: The heart is normal in size. No pericardial effusion. Coronary artery calcifications. Mediastinum and beronica: Unremarkable. Thoracic vessels: The thoracic aorta is normal in caliber. The main pulmonary artery is top-normal in size. There are no filling defects in the central pulmonary arteries. Osseous structures: No aggressive osseous lesion. Degenerative changes of the thoracic spine. Compression deformities of the superior endplates of T7 and T11 vertebral bodies. CT ABDOMEN/PELVIS: Liver: Hepatomegaly. Mild periportal edema. Subcentimeter right hepatic hypodensity too small to further characterize but likely reflecting a hepatic cyst. No enhancing lesion. Gallbladder and biliary ducts: Distended gallbladder. New pericholecystic fluid. No cholelithiasis on CT. Normal caliber intrahepatic and common bile ducts. Pancreas:Atrophic. No ductal dilatation or mass. No peripancreatic fluid. Spleen: Unremarkable. Adrenal glands: Unremarkable. Kidneys and ureters: Normal renal size, morphology, and enhancement. No nephroureterolithiasis or hydroureteronephrosis. Trace nonspecific perinephric edema. Left renal cyst. Urinary bladder: Unremarkable. GI: Tiny hiatal hernia. Unremarkable duodenum. Normal caliber small bowel and large bowel.No evidence for bowel wall thickening. Appendix: Not visualized. Peritoneum: Perihepatic ascites. Small left inguinal hernia containing small bowel and fat. There is associated fluid. No evidence of incarceration Lymph nodes: No lymphadenopathy. Vasculature: Portal, splenic, and superior mesenteric veins are patent. No abdominal aortic aneurysm. Atherosclerotic calcification of the abdominal aorta. Reproductive organs: Prostatomegaly measuring 4.4 x 5.5 x 5.8 cm. Punctate prostatic calcifications. The seminal vesicles are symmetrical. Musculoskeletal and soft tissues: No aggressive osseous lesions. Unremarkable soft tissues. CT/CT Chest, Abd, Pel w/Contrast IMPRESSION: 1. [id number] bilateral pleural effusions. Interval increase in right p leural effusion when compared to prior CT abdomen/pelvis dated 02/15/2025. 2. Distended gallbladder and pericholecystic fluid concerning for acute cholecy stitis. 3. Perihepatic ascites. 4. Hepatomegaly. 5. Prostatomegaly. 6. Additional findings discussed in the body of the report Reading Location: [facility]
--- NOTE | 2025-02-19 15:11 | PCM.PN.REN ---
Subjective Subjective He says he is now having diarrhea. Right-sided, right upper quadrant abdominal pain is still present. Objective Data Objective Data Vital Signs: Vital Signs Temp Pulse Resp BP Pulse Ox O2 Del Method O2 Flow Rate 98.1 F 112 H 18 139/85 H 96 Room Air 2 02/19/25 09:20 02/19/25 09:30 02/19/25 09:20 02/19/25 09:30 02/19/25 09:20 02/19/25 09:22 02/17/25 14:16 Oxygen Flow Rate (L/min) 2 Oxygen Delivery Method Room Air Weight: 77.3 kg Body Mass Index (BMI) 23.8 Intake & Output: Intake and Output for Last 24 Hours 02/17/25 02/18/25 02/19/25 23:59 23:59 23:59 Intake Total 2168 / 2168 1000 / 1000 340 / 340 Output Total 2610 / 2610 250 / 250 Balance -442 / -442 1000 / 875 90 / 90 Lab / Micro Data 02/19/25 06:47 02/19/25 06:47 Labs: Laboratory Results - last 24 hr 02/18/25 16:34: POC Glucose 183 H 02/18/25 21:26: POC Glucose 231 H 02/19/25 06:18: POC Glucose 119 H 02/19/25 06:47: WBC 8.1, RBC 2.43 L, Hgb 7.7 L, Hct 23.0 L, MCV 94.7 H, MCH 31.7, MCHC 33.5, RDW Std Deviation 58.8 H, RDW Coeff of Scotty 17.2 H, Plt Count 89 L, MPV 10.8, Sodium 133, Potassium 3.5, Chloride 98, Carbon Dioxide 20.1 L, Anion Gap 15, BUN 37 H, Creatinine 3.24 H, Estim Creat Clear Calc 18.08 L, Est GFR (MDRD) Non-Af 18 L, BUN/Creatinine Ratio 11.5, Glucose 106 H, Calcium 7.1 L 02/19/25 11:49: POC Glucose 126 H Micro: Microbiology 02/17/25 15:29 Blood Culture (Wb) - Left Hand Blood Culture - Preliminary No growth in 48 hours. 02/17/25 15:29 Blood Culture (Wb) - Left Forearm Blood Culture - Preliminary No growth in 48 hours. Physical Exam Narrative Alert awake oriented x 3 no obvious distress no pallor no icterus no JVD s1s2 no murmurs lungs clear abdomen soft no organomegaly no edema no cyanosis Assessment & Plan Assessment/Plan (1) Acute renal failure: PLAN: HD dependent. biopsy proven myeloma and ATN. last HD Thursday. admitted with abdomen pain, currently not passing gas either. Bp is ok. hold HD for today. CXR is somewhat wet. abdomen pain work up as per GI. 02/17/25. HD today. next HD thursday. CXR was wet. has rales on exam. not completely recovered yet. will continue HD twice a week for now. abdomen pain better. 02/19/2025. Now having diarrhea. Breathing is acceptable. WBC count has normalized. Right upper quadrant abdominal pain and tenderness still present. No bloody bowel movements. Discussed with hospitalist. Can start with right upper quadrant ultrasound. A CT with contrast is not very ideal due to recovering renal function but if needed to rule out active infection I guess it is okay. Will plan for dialysis tomorrow. Discussed with family bedside
[2025-02-19 15:20] VITALS: BP 146/92; PULSE 113; RESP 18; TEMP 36.4; O2SAT 97
[2025-02-19 22:23] VITALS: BP 127/79; PULSE 104; RESP 18; TEMP 37.1; O2SAT 93
[2025-02-19 22:26] VITALS: PULSE 104
[2025-02-19] MEDS: Insulin Glargine-YFGN 100 UNIT/ML Pen 10 UNIT SC (22:27)
[2025-02-19] MEDS: Magnesium Chloride 64 MG Delay Rel.Tablet 128 MG PO (22:28)
[2025-02-20] VITALS (16 sets, daily range): BP systolic 123–155; BP diastolic 62–86; PULSE 94–140; RESP 14–18; TEMP 36.5–37.2; O2SAT 94–100; BMI 24.2; BMI 23.5
[2025-02-20 06:47] LABS: Hematocrit 23.3 % (40-54); Hemoglobin 8.1 g/dL (13.0-16.5); Mean Corp Hgb Conc 34.8 g/dL (32-36); Mean Corpuscular Volume 93.2 fL (80-94); Mean Platelet Vol. 10.6 fl (6.2-12.0); Platelet Count 135 K/mm3 (150-450); RBC Distribution Width CV 16.6 % (11.6-14.6); RBC Distribution Width SD 56.9 fl (35.1-43.9); Red Blood Count 2.50 M/mm3 (4.6-6.2); White Blood Count 10.3 K/mm3 (4.4-11.0)
[2025-02-20] MEDS: Piperacil/Tazobactam 3.375 GM in 0.9% Normal Saline (50mL MB+) 50 ML IV ×2 (06:49→22:30)
[2025-02-20 07:19] LABS: Anion Gap 17 (5-15); BUN 37 mg/dL (4-19); BUN/Creat Ratio 10.5 RATIO (10-20); Calcium,Total 7.4 mg/dL (7.6-11.0); Carbon Dioxide 18.0 mmol/L (21.0-32.0); Chloride 98 mmol/L (98-108); Estimated Creatinine Clearance 16.54 ml/min (50-250); Glucose 134 mg/dL (70-99); Potassium 3.5 mmol/L (3.3-5.1)
[2025-02-20 07:21] LABS: Vancomycin, Random Level 10.0 ug/mL (0.0-15.0)
--- NOTE | 2025-02-20 07:30 | PCM.RX.CS ---
Consult Antibiotic Management Pharmacy has been consulted to manage selected antibiotic: Vancomycin Type of Intervention Type of Consult: Follow-up Suspected Infection Suspected Infection: Other (LEUKOCYTOSIS) Prior Doses of Antibiotics Prior Doses of Antibiotics Received/Current Regimen: Vancomycin 2000 mg IV x 1 given 02/17/25 @ 1617 Labs Labs: Sodium 133 mmol/L (133-145) 02/20/25 06:37 Potassium 3.5 mmol/L (3.3-5.1) 02/20/25 06:37 Chloride 98 mmol/L (98-108) 02/20/25 06:37 Carbon Dioxide 18.0 mmol/L (21.0-32.0) L 02/20/25 06:37 Anion Gap 17 (5-15) H 02/20/25 06:37 BUN 37 mg/dL (4-19) H 02/20/25 06:37 Creatinine 3.54 mg/dL (0.70-1.20) H 02/20/25 06:37 Est GFR (MDRD) Non-Af 16 (>60) L 02/20/25 06:37 BUN/Creatinine Ratio 10.5 RATIO (10-20) 02/20/25 06:37 Glucose 134 mg/dL (70-99) H 02/20/25 06:37 Random Vancomycin 10.0 ug/mL (0.0-15.0) 02/20/25 06:37 Microbiology Microbiology: Microbiology 02/17/25 15:29 Blood Culture (Wb) - Left Hand Blood Culture - Preliminary No growth in 48 hours. 02/17/25 15:29 Blood Culture (Wb) - Left Forearm Blood Culture - Preliminary No growth in 48 hours. Dosing Weight Weight used for dosin kg Estimated Creatinine Clearance Estimated Creatinine Clearance: ESRD ON HD Goal Trough Goal Trough: 15-20 mcg/mL Pharmacy Plan for Drug Dosing Pharmacy Plan for Drug Dosing: Vancomycin random level this AM = 10.0, give 750 mg IV x 1 after HD today, then plan for random prior to next HD session, likely [facility] or [facility] Service will continue to monitor and adjust dosing as required.
--- NOTE | 2025-02-20 08:03 | US_ITS ---
PROCEDURE: GALLBLADDER 02/20/2025 REASON FOR EXAM: EVAL FOR CHOLECYSTITIS. TECHNIQUE: Procedure Code: USGB Modality: US Procedure: GALLBLADDER COMPARISON: CT dated 02/19/2025. FINDINGS: Liver: Grossly normal size and echotexture. Sagittal measurement of 13.5 cm. Lesion: A 1.9 x 2.6 x 1.5 cm sonolucent mass, medial aspect of the left lobe. Blood flow: Hepatopetal. Gallbladder: Small polyp versus adherent stone versus small sludge ball. Common bile duct: Normal measuring 0.51 cm. Pancreas: Visualized portions are sonographically unremarkable. Ascites: Visualized. Right kidney: 12.3 x 5.9 x 5.4 cm. Renal cortex measures 1.5 cm. US/Gallbladder IMPRESSION: 1. Small gallbladder polyp versus adherent stone versus small sludge ball. 2. Left hepatic lobe cyst. 3. No ultrasound evidence of cholecystitis. 4. Ascites. Reading Location: [place] [id number]
[2025-02-20 08:41] LABS: AST(SGOT) 52 U/L (<=37); Alanine Aminotransfer ALT/SGPT 58 U/L (<=46); Albumin, Serum 3.2 g/dL (3.4-4.8); Alkaline Phosphatase 91 U/L (40-129); Bilirubin, Direct 0.33 mg/dL (0.00-0.30); Globulin 3.2 g/dL (2.2-4.2)
--- NOTE | 2025-02-20 11:10 | PCM.PN.HOSP ---
Reason for Visit Chief Complaint: Epigastric pain Subjective Subjective Saw patient at bedside this morning. Patient was having dialysis done when I saw him. He continues to have abdominal pain similar to previous days. Denies any fevers or chills. No other new concerns this morning. Objective Data Objective Data Vital Signs: Vital Signs Temp Pulse Resp BP Pulse Ox O2 Del Method O2 Flow Rate 97.7 F L 101 H 14 149/74 H 97 Room Air 2 02/20/25 08:30 02/20/25 10:00 02/20/25 10:00 02/20/25 10:00 02/20/25 10:00 02/20/25 10:00 02/17/25 14:16 Oxygen Flow Rate (L/min) 2 Oxygen Delivery Method Room Air Weight: 78.7 kg Body Mass Index (BMI) 24.2 Intake & Output: Intake and Output for Last 24 Hours 02/18/25 02/19/25 02/20/25 23:59 23:59 23:59 Intake Total 1000 / 1000 630 / 630 50 / 50 Output Total 250 / 525 275 / 275 Balance 1000 / 875 380 / 105 -225 / -225 Lab / Micro Data 02/20/25 06:37 02/20/25 06:37 Labs: Laboratory Results - last 24 hr 02/19/25 11:49: POC Glucose 126 H 02/19/25 16:36: POC Glucose 186 H 02/19/25 22:25: POC Glucose 199 H 02/20/25 06:37: WBC 10.3, RBC 2.50 L, Hgb 8.1 L, Hct 23.3 L, MCV 93.2, MCH 32.4 H, MCHC 34.8, RDW Std Deviation 56.9 H, RDW Coeff of Scotty 16.6 H, Plt Count 135 L, MPV 10.6, Sodium 133, Potassium 3.5, Chloride 98, Carbon Dioxide 18.0 L, Anion Gap 17 H, BUN 37 H, Creatinine 3.54 H, Estim Creat Clear Calc 16.54 L, Est GFR (MDRD) Non-Af 16 L, BUN/Creatinine Ratio 10.5, Glucose 134 H, Calcium 7.4 L, Total Bilirubin 0.54, Direct Bilirubin 0.33 H, AST 52 H, ALT 58 H, Alkaline Phosphatase 91, Total Protein 6.3, Albumin 3.2 L, Globulin 3.2, Random Vancomycin 10.0 02/20/25 06:45: POC Glucose 123 H Micro: Microbiology 02/17/25 15:29 Blood Culture (Wb) - Left Hand Blood Culture - Preliminary No growth in 48 hours. 02/17/25 15:29 Blood Culture (Wb) - Left Forearm Blood Culture - Preliminary No growth in 48 hours. Radiography Diagnostic Testing: Radiology Impression Chest/Abdomen/Pelvis CT 02/19/25 14:25 IMPRESSION: 1. [id number]-[id number] bilateral pleural effusions. Interval increase in right pleural effusion when compared to prior CT abdomen/pelvis dated 02/15/2025. 2. Distended gallbladder and pericholecystic fluid concerning for acute cholecystitis. 3. Perihepatic ascites. 4. Hepatomegaly. 5. Prostatomegaly. 6. Additional findings discussed in the body of the report Reading Location: [facility] Patient's Goals Of Care - F/U Goals Reviewed Goals of care reviewed with patient: NA-No significant change in clinical Status /major procedure scheduled Physical Exam Const alert, oriented x3 and average body habitus Constitutional Narrative: Elderly male, mildly fatigued but otherwise sitting back comfortably in bed, conversing normally, in no acute distress. Stable. General Appearance: cooperative HEENT normocephalic, head/scalp atraumatic, hearing grossly normal bilaterally, nasal mucous membranes and turbinates normal and moist oral mucous membranes Eyes PERRL, EOMs intact bilaterally and conjunctivae normal Neck full ROM Chest inspection of chest normal Resp normal respiratory effort, normal air movement, no use of accessory muscles and clear to auscultation bilaterally Cardio regular rate, regular rhythm, no murmurs and peripheral pulses 2+ throughout GI GI Narrative: Abdomen mildly distended and mildly tender to palpation but soft, stable. Back/Spine normal ROM Extremity normal to inspection, full ROM and no pedal edema Skin no rashes or lesions noted Psych mental status grossly normal Assessment & Plan Assessment/Plan (1) Abdominal pain: PLAN: Plan Patient is an 84-year-old male who presented to [facility] ED on 02/15/2025 with epigastric/abdominal pain. 1. Abdominal pain with concern for acute cholecystitis ? General Surgery following. Presented with primarily upper abdominal/epigastric pain that began on the morning of admission. CT abdomen pelvis with oral contrast only showed perinephric fat stranding and distended bladder with enlarged prostate noted, stable from previous; no other concerning findings noted. Lipase only slightly elevated so did not meet criteria for pancreatitis. UA was unremarkable. Overnight on day of admission patient had abdominal distention and worsening lower abdominal pain noted concerning for constipation. KUB with large amount of fecal material seen in the colon. Began aggressive bowel regimen with patient having several soft bowel movements. However, patient continued to have abdominal pain. Discussed with nephrology and okay for IV contrast study; CT abdomen pelvis with IV contrast on 02/19 showed distended gallbladder with new pericholecystic fluid but no cholelithiasis and no bile duct dilation. However, gallbladder ultrasound on 02/20 with no evidence of cholecystitis, only showed small gallbladder polyp versus adherent stone and ascites. Discussed with surgery and will obtain HIDA scan for further evaluation. Continue treatment with IV Zosyn as below. Will continue clear liquid diet for now. 2. Leukocytosis, improved ? Patient with WBC count 9.5 on admit. However, worsened to 14 on hospital day 2 and then up to 17 on 02/17. Spiked a fever of 101F on 02/17 as well despite being on IV Zosyn. Unclear source of infection at this time. Initiated on IV vancomycin in addition to IV Zosyn on 02/17 and blood cultures sent. WBC count improved back to 8.1 by 02/19 and no further fevers noted. Blood cultures with no growth at 48 hours. Will continue treatment with both IV vancomycin and Zosyn given unclear source of infection. Continue to monitor CBC daily. 3. Acute on chronic anemia, thrombocytopenia ? Hemoglobin 8.5 on admit, stable at baseline. Platelet count 129, also stable at baseline. Both counts have slowly decreased during hospitalization for unclear reason, no source of bleeding noted. May be secondary to chemotherapy for multiple myeloma as below. Hemoglobin 6.9 on 02/18; transfused 1 unit of blood. Most recent hemoglobin 8.1 on 02/20. Platelet count bird of 77 on 02/17, improving with most recent platelet count 135 on 02/20. Will continue to hold subcu heparin and utilize SCDs for DVT prophylaxis for now. Continue to monitor CBC daily. 4. ESRD on HD ? Nephrology following. Secondary to biopsy-proven multiple myeloma and ATN. Currently on HD twice weekly. Last dialysis session on morning of 02/20. Appreciate further nephrology recommendations. 5. New onset A-fib with RVR ? Patient became tachycardic during dialysis session on morning of 02/20. EKG showed A-fib with RVR with rate to the high 120s. Will continue home Lopressor 25 mg daily and add on IV Lopressor 5 mg every 6 hours as needed for heart rate greater than 130. Suspect tachycardia was in part due to volume removal from HD so patient was given some IV fluids back after HD session. Continue cardiac monitoring. Given his anemia as above, will hold on any anticoagulation at this time. 5. Acute debility ? PT/OT/case management following. Patient with reported good functional status prior to admission so therapy was not initially consulted. However, his hospitalization has been prolonged given issues above and patient appears weaker than his normal. Appreciate therapy recommendations. 6. Multiple myeloma ? Follows with oncology, last office visit on 02/13. Recently diagnosed in November. Was hospitalized in October for acute/subacute compression fracture of L1. He was then hospitalized in early November for acute on chronic kidney failure, anemia and malignant hypercalcemia requiring initiation of dialysis as above. He is on treatment with daratumumab and velcade and completed cycle 3 the week of 02/13. No significant side effects secondary to this therapy to this point. Notably calcium level was normal on admission. No inpatient needs, continue outpatient follow-up. 7. Type 2 diabetes mellitus ? Glucose 165 on admit. Most recent A1c 6.4% on 12/06. Treating with reduced dose of Lantus 10 units at night and sliding scale insulin with meals for now, adjust as needed. 8. History of nonobstructive CAD, hypertension, hyperlipidemia ? Normotensive during hospitalization. Continue home aspirin, statin, amlodipine, and Lopressor. 9. Hypothyroidism ? Continue home Synthroid. DVT prophylaxis: SCDs CODE STATUS: Full code, verified Expected disposition: TBD Total clinical time spent by myself addressing the patient's medical issues, reviewing all the data, and collaborating with patient's care team: 41 minutes. Charges/Coding Visit Charges Inpatient E&M: 70980 Subs Hosp L2
[2025-02-20] MEDS: 0.9% Normal Saline 1,000 ML IV.SOLN. 1000 ML OPERA.SITE (11:33)
[2025-02-20] MEDS: PureFlow B 4K Dialysis Soln 1 BAG 6 BAG PF (11:33)
[2025-02-20] MEDS: 0.9% Saline Lock 10 ML Syringe IV (11:33)
--- NOTE | 2025-02-20 11:46 | EKG12_ITS ---
Test Reason : ARRYTH Blood Pressure : */* mmHG Vent. Rate : 128 BPM Atrial Rate : * BPM P-R Int : * ms QRS Dur : 86 ms QT Int : 276 ms P-R-T Axes : * 6 119 degrees QTcB Int : 402 ms Atrial fibrillation with rapid ventricular response with premature ventricular or aberrantly conducted complexes Nonspecific ST and T wave abnormality Abnormal ECG When compared with ECG of 15-Feb-2025 05:52, Atrial fibrillation has replaced Sinus rhythm Vent. rate has increased by 51 bpm Confirmed by Pedro Hurtado ([id number]), purchase request editor ALEJANDRA HICKS ([id number]) on 02/21/2025 11:45:14 AM Also confirmed by Pedro Hurtado ([id number]), purchase request editor ALEJANDRA HICKS ([id number]) on 02/22/2025 10:14:03 AM Referred By: ANGELINA Confirmed By: Pedro Hurtado
[2025-02-20] MEDS: 0.9% Normal Saline (1000mL) 1,000 ML 500 ML IV (11:56)
--- NOTE | 2025-02-20 11:56 | EX.PCM.CON.S ---
Assessment & Plan Assessment/Plan (1) Abdominal pain: PLAN: I have been consulted in conjunction with Dr. Evans, He has independently evaluated this patient. Patient is an 84 y/o M who presented with intractable epigastric abdominal pain. He was noted to have a stool burden which was corrected. He continued to have abdominal pain when a CT scan was ordered and showed concerns for acute cholecystitis. Patient voiced he was more concerned that he was still having diarrhea. Recommend a RUQ ultrasound, if this is unremarkable, recommend obtaining a HIDA scan. Once these results have returned, we will proceed with making a proposed treatment plan. This may include a laparoscopic cholecystectomy versus laparoscopic subtotal cholecystectomy versus naa tube versus no surgical intervention. These options were discussed with the patient and he is agreeable to the above proposal. Thank you for allowing us to participate in this patient's care. HPI Consult Data Date of Consult: 02/20/25 HPI Narrative Reason for Consultation: Abdominal pain HPI Narrative: LINA ORTA, is a 84 M who presents with epigastric abdominal pain. Patient notes pain started at 0400 AM on the day of admission. Patient was noted to have a fecal burden. He was provided with suppositories and IV metoclopramide and successfully had bowel movements. Patient is currently on dialysis twice weekly. He follows with oncology for multiple myeloma. Patient's last admission in November, Dr. Evans's placed a dialysis catheter for patient. Patient states his abdominal pain woke him out of sleep. He denies having gallbladder issues previously. A CT scan of the ab/pel obtained on 02/19 demonstrated distended gallbladder and pericholecystic fluid concerning for acute cholecystitis among other findings. Our service was consulted to evaluate patient for gallbladder disease. Patient's main concern during examination was the diarrhea he was having. Labs on day of consult WBC was normal. Liver enzymes were very slightly elevated. Total bilirubin was normal. [facility] Medical History Chronic renal failure (CRF), stage 5 Type II diabetes mellitus Anemia Multiple myeloma CKD (chronic kidney disease) stage 1, GFR 90 ml/min or greater Trigger finger of right hand Apical variant hypertrophic cardiomyopathy HLD (hyperlipidemia) Shingles (herpes zoster) polyneuropathy Acute urticaria GERD (gastroesophageal reflux disease) Hypothyroidism Home Medications ?Medication ?Instructions ?Recorded ?Last Taken ?Type blood sugar diagnostic (True #100 ea 02/11/23 Unknown Rx Metrix Glucose Test Strip) blood-glucose meter #1 ea 02/11/23 Unknown Rx atorvastatin 20 mg tablet 20 mg PO QDAY #90 tabs 09/29/24 02/14/25 Rx lancets 30 gauge (Unilet Lancets) #100 ea 09/29/24 Unknown Rx levothyroxine 100 mcg tablet 100 mcg PO DAILY #100 tabs 09/29/24 02/14/25 Rx pen needle, diabetic 29 gauge x #100 ea 09/29/24 Unknown Rx 1/2 (CareFine Pen Needle) ondansetron 4 mg disintegrating 4 mg PO Q8H PRN nausea and 11/29/24 12/02/24 Rx tablet vomiting #14 tabs insulin glargine 100 unit/mL (3 21 unit subcut QHS 12/03/24 02/14/25 History mL) subcutaneous pen (Lantus Solostar U-100 Insulin) magnesium 250 mg tablet 250 mg PO QHS 12/03/24 02/14/25 History acyclovir 200 mg capsule 200 mg PO BID #60 caps 12/14/24 02/14/25 Rx insulin lispro 100 unit/mL 1 sliding scale dose subcut QACHS 12/15/24 02/14/25 Rx subcutaneous pen (Humalog KwikPen #15 mL (U-100) Insulin) aspirin 81 mg tablet 81 mg PO QDAY 12/19/24 02/14/25 History dexamethasone 4 mg tablet 40 mg PO QWEEK 12/29/24 02/13/25 History mirtazapine 7.5 mg tablet 7.5 mg PO QHS 90 days #90 tabs 12/29/24 02/14/25 Rx omeprazole 20 mg capsule,delayed 20 mg PO QHS 12/29/24 02/14/25 History release amlodipine 5 mg tablet 5 mg PO DAILY 30 days #90 tabs 01/02/25 02/14/25 Rx metoprolol tartrate 25 mg tablet 25 mg PO BID 30 days #180 tabs 01/02/25 02/14/25 Rx pramoxine 1 % topical foam 1 applic MO BID #15 grams 02/08/25 02/14/25 Rx (Proctofoam) Allergy/AdvReac Type Severity Reaction Status Date / Time meloxicam (From [facility]) Allergy Severe unknown Verified 02/15/25 05:52 pentazocine (From [facility]) Allergy Severe unknown Verified 02/15/25 05:52 metaxalone AdvReac Intermediate Nausea Verified 02/15/25 05:52 Family History Father Heart disease Mother CVA (cerebral vascular accident) Hypertension Breast cancer Surgical History History of back surgery History of left knee surgery History of appendectomy History of cardiac cath Social History Smoking Status: Former smoker Tobacco: How many years used: 2 how long ago did patient quit smokin alcohol intake: never substance use type: does not use ROS Constitutional Constitutional: Reports systems reviewed and no addt'l complaints, except as documented Eyes Eyes: Reports systems reviewed and no addt'l complaints, except as documented ENT HEENT: Reports systems reviewed and no addt'l complaints, except as documented Cardiovascular Cardiovascular: Reports systems reviewed and no addt'l complaints, except as documented Respiratory/Chest Respiratory/Chest: Reports systems reviewed and no addt'l complaints, except as documented Gastrointestinal Gastrointestinal: Reports systems reviewed and no addt'l complaints, except as documented Genitourinary Genitourinary: Reports systems reviewed and no addt'l complaints, except as documented Musculoskeletal Musculoskeletal: Reports systems reviewed and no addt'l complaints, except as documented Integumentary Integumentary: Reports systems reviewed and no addt'l complaints, except as documented Neurologic Neurologic: Reports systems reviewed and no addt'l complaints, except as documented Psychiatric Psychiatric: Reports systems reviewed and no addt'l complaints, except as documented Endocrine Endocrinology: Reports systems reviewed and no addt'l complaints, except as documented Hematologic/Lymphatic Hematologic/Lymphatic: Reports systems reviewed and no addt'l complaints, except as documented Allergic/Immunologic Allergic/Immunologic: Reports systems reviewed and no addt'l complaints, except as documented Physical Exam Const alert, oriented x3 and no apparent distress Constitutional Narrative: Laying in bed receiving dialysis at the time of examination HEENT normocephalic and head/scalp atraumatic Eyes PERRL Neck full ROM Resp normal respiratory effort and clear to auscultation bilaterally Cardio regular rhythm Rate: tachycardic GI GI Narrative: Abdomen- soft, very slight tenderness in the right upper quadrant. Negative Tyler's sign. no CVA tenderness Back/Spine no CVA tenderness Extremity normal to inspection Skin no rashes or lesions noted Neuro no focal motor deficits and no sensory deficits noted Psych mental status grossly normal and thought process normal Lab / Micro Data 02/20/25 06:37 02/20/25 06:37 Labs: Laboratory Results - last 24 hr 02/19/25 11:49: POC Glucose 126 H 02/19/25 16:36: POC Glucose 186 H 02/19/25 22:25: POC Glucose 199 H 02/20/25 06:37: WBC 10.3, RBC 2.50 L, Hgb 8.1 L, Hct 23.3 L, MCV 93.2, MCH 32.4 H, MCHC 34.8, RDW Std Deviation 56.9 H, RDW Coeff of Scotty 16.6 H, Plt Count 135 L, MPV 10.6, Sodium 133, Potassium 3.5, Chloride 98, Carbon Dioxide 18.0 L, Anion Gap 17 H, BUN 37 H, Creatinine 3.54 H, Estim Creat Clear Calc 16.54 L, Est GFR (MDRD) Non-Af 16 L, BUN/Creatinine Ratio 10.5, Glucose 134 H, Calcium 7.4 L, Total Bilirubin 0.54, Direct Bilirubin 0.33 H, AST 52 H, ALT 58 H, Alkaline Phosphatase 91, Total Protein 6.3, Albumin 3.2 L, Globulin 3.2, Random Vancomycin 10.0 02/20/25 06:45: POC Glucose 123 H Micro: Microbiology 02/17/25 15:29 Blood Culture (Wb) - Left Hand Blood Culture - Preliminary No growth in 48 hours. 02/17/25 15:29 Blood Culture (Wb) - Left Forearm Blood Culture - Preliminary No growth in 48 hours. Imaging Radiology Impression Chest/Abdomen/Pelvis CT 02/19/25 14:25 IMPRESSION: 1. [id number] bilateral pleural effusions. Interval increase in right pleural effusion when compared to prior CT abdomen/pelvis dated 02/15/2025. 2. Distended gallbladder and pericholecystic fluid concerning for acute cholecystitis. 3. Perihepatic ascites. 4. Hepatomegaly. 5. Prostatomegaly. 6. Additional findings discussed in the body of the report Reading Location: [facility] Charges/Coding Visit Charges Inpatient E&M: 27640 Init Hosp L2
--- NOTE | 2025-02-20 12:23 | NM_ITS ---
PROCEDURE: HEPATOBILLIARY IMAGING 02/20/2025 REASON FOR EXAM: EVAL FOR ACUTE CHOLECYSTITIS TECHNIQUE: Procedure Code: NMHIDA Modality: NM Procedure: HEPATOBILLIARY IMAGING Intravenous Choletec with planar imaging of the abdomen. RADIOPHARMACEUTICAL: 5.8 mCi of mebrofenin. COMPARISON: Ultrasound gallbladder dated 02/[address] abdomen and pelvis dated 02/19/2025 FINDINGS: There is good uptake of the radiopharmaceutical by the hepatocytes.. A prominent ovoid area of diminished activity in the right hepatic lobe consistent with the previously described distended gallbladder. 30 through 90 minute images show a focal area of increased activity most likely representing pooling of radiopharmaceutical activity in the duodenum. NM/Hepatobilliary Imaging IMPRESSION: No activity seen in the distended gallbladder at 120 minutes post injection of the radiopharmaceutical. Findings are consistent with acute cholecystitis. These findings were relayed by myself to Dr. Evans. I obtained a 2nd opinion on this study from Dr. Dalton. Reading Location: [place] [address]
--- NOTE | 2025-02-20 13:11 | PN.RENAL_ITS ---
Subjective Subjective Still has some pain and tenderness in the right upper quadrant area. CT abdomen with signs suggestive of acalculous cholecystitis. Right upper quadrant ultrasound ordered. Surgery on consult. Still looks somewhat uncomfortable. Dialysis today, fluid removal up to 2 L as tolerated. Objective Data Objective Data Vital Signs: Vital Signs Temp Pulse Resp BP Pulse Ox O2 Del Method O2 Flow Rate 98.9 F 115 H 16 150/79 H 94 Room Air 2 02/20/25 12:55 02/20/25 12:55 02/20/25 12:55 02/20/25 12:55 02/20/25 12:55 02/20/25 12:55 02/17/25 14:16 Oxygen Flow Rate (L/min) 2 Oxygen Delivery Method Room Air Weight: 76.4 kg Body Mass Index (BMI) 23.5 Intake & Output: Intake and Output for Last 24 Hours 02/18/25 02/19/25 02/20/25 23:59 23:59 23:59 Intake Total 1000 / 1000 630 / 630 100 / 100 Output Total 250 / 525 2655 / 2655 Balance 1000 / 875 380 / 105 -2555 / -2555 Lab / Micro Data 02/20/25 06:37 02/20/25 06:37 Labs: Laboratory Results - last 24 hr 02/19/25 16:36: POC Glucose 186 H 02/19/25 22:25: POC Glucose 199 H 02/20/25 06:37: WBC 10.3, RBC 2.50 L, Hgb 8.1 L, Hct 23.3 L, MCV 93.2, MCH 32.4 H, MCHC 34.8, RDW Std Deviation 56.9 H, RDW Coeff of Scotty 16.6 H, Plt Count 135 L , MPV 10.6, Sodium 133, Potassium 3.5, Chloride 98, Carbon Dioxide 18.0 L, Anion Gap 17 H, BUN 37 H, Creatinine 3.54 H, Estim Creat Clear Calc 16.54 L, Est GFR (MDRD) Non-Af 16 L, BUN/Creatinine Ratio 10.5, Glucose 134 H, Calcium 7.4 L, Total Bilirubin 0.54, Direct Bilirubin 0.33 H, AST 52 H, ALT 58 H, Alkaline Phosphatase 91, Total Protein 6.3, Albumin 3.2 L, Globulin 3.2, Random Vancomycin 10.0 02/20/25 06:45: POC Glucose 123 H Micro: Microbiology 02/17/25 15:29 Blood Culture (Wb) - Left Hand Blood Culture - Preliminary No growth in 48 hours. 02/17/25 15:29 Blood Culture (Wb) - Left Forearm Blood Culture - Preliminary No growth in 48 hours. Radiography Diagnostic Testing: Radiology Impression Chest/Abdomen/Pelvis CT 02/19/25 14:25 IMPRESSION: 1. Ythfd-ob-drhyxoot bilateral pleural effusions. Interval increase in right pleural effusion when compared to prior CT abdomen/pelvis dated 02/15/2025. 2. Distended gallbladder and pericholecystic fluid concerning for acute cholecystitis. 3. Perihepatic ascites. 4. Hepatomegaly. 5. Prostatomegaly. 6. Additional findings discussed in the body of the report Reading Location: [facility] Gallbladder Ultrasound 02/20/25 08:03 IMPRESSION: 1. Small gallbladder polyp versus adherent stone versus small sludge ball. 2. Left hepatic lobe cyst. 3. No ultrasound evidence of cholecystitis. 4. Ascites. Reading Location: [place] [address] Physical Exam Narrative Alert awake oriented x 3 no obvious distress no pallor no icterus no JVD s1s2 no murmurs lungs clear abdomen right upper quadrant tenderness no cyanosis Assessment & Plan Assessment/Plan (1) Acute renal failure: PLAN: HD dependent. biopsy proven myeloma and ATN. last HD Thursday. admitted with abdomen pain, currently not passing gas either. Bp is ok. hold HD for today. CXR is somewhat wet. abdomen pain work up as per GI. 02/17/25. HD today. next HD thursday. CXR was wet. has rales on exam. not completely recovered yet. will continue HD twice a week for now. abdomen pain better. 02/19/2025. Now having diarrhea. Breathing is acceptable. WBC count has normalized. Right upper quadrant abdominal pain and tenderness still present. No bloody bowel movements. Discussed with hospitalist. Can start with right upper quadrant ultrasound. A CT with contrast is not very ideal due to recovering renal function but if needed to rule out active infection I guess it is okay. Will plan for dialysis tomorrow. Discussed with family bedside 02/20/2025. WBC count is better however still complains of pain in the right upper quadrant. CT abdomen with signs suggestive of acalculous cholecystitis. When he came in he had a CT abdomen without contrast which did not show similar findings. Surgery on consult. Right upper quadrant ultrasound and HIDA scan ordered. Dialysis today. Will reassess for dialysis on Thursday.
[2025-02-20] MEDS: Magnesium Chloride 64 MG Delay Rel.Tablet 128 MG PO (22:24)
[2025-02-20] MEDS: Insulin Glargine-YFGN 100 UNIT/ML Pen 10 UNIT SC (22:29)
[2025-02-21] VITALS (19 sets, daily range): BP systolic 109–143; BP diastolic 59–90; PULSE 88–132; RESP 14–16; TEMP 35.5–37.1; O2SAT 86–98; BMI 23.5
[2025-02-21 06:13] LABS: Hematocrit 21.3 % (40-54); Hemoglobin 7.3 g/dL (13.0-16.5); Mean Corp Hgb Conc 34.3 g/dL (32-36); Mean Corpuscular Volume 94.2 fL (80-94); Mean Platelet Vol. 10.4 fl (6.2-12.0); Platelet Count 152 K/mm3 (150-450); RBC Distribution Width CV 16.3 % (11.6-14.6); RBC Distribution Width SD 55.9 fl (35.1-43.9); Red Blood Count 2.26 M/mm3 (4.6-6.2); White Blood Count 11.0 K/mm3 (4.4-11.0)
[2025-02-21 06:28] LABS: Prothrombin Time (Protime)PT. 15.8 SECONDS (11.7-14.9)
[2025-02-21 06:29] LABS: Partial Thromboplast Time 34.5 Seconds (24.1-36.2)
[2025-02-21 06:53] LABS: Anion Gap 14 (7-18); BUN 22 mg/dL (4-19); BUN/Creat Ratio 7.7 RATIO (10-20); Calcium,Total 7.4 mg/dL (7.6-11.0); Carbon Dioxide 21.4 mmol/L (20.0-29.0); Chloride 99 mmol/L (96-106); Estimated Creatinine Clearance 20.62 ml/min (50-250); Glucose 101 mg/dL (70-99); Potassium 3.3 mmol/L (3.5-5.1)
--- NOTE | 2025-02-21 08:54 | PCM.PN.SRG ---
Objective Data Objective Data Vital Signs: Vital Signs Temp Pulse Resp BP Pulse Ox O2 Del Method O2 Flow Rate 98.7 F 95 16 131/70 H 92 Room Air 2 02/21/25 08:36 02/21/25 08:39 02/21/25 08:36 02/21/25 08:39 02/21/25 08:36 02/21/25 08:36 02/17/25 14:16 Oxygen Flow Rate (L/min) 2 Oxygen Delivery Method Room Air Weight: 168 lb 6.931 oz Body Mass Index (BMI) 23.5 Intake & Output: Intake and Output for Last 24 Hours 02/19/25 02/20/25 02/21/25 23:59 23:59 23:59 Intake Total 630 / 630 1100.00 / 1600.00 550 / 550 Output Total 250 / 525 3105 / 5485 2380 / 2380 Balance 380 / 105 -2005.00 / -3885.00 -1830 / -1830 Lab / Micro Data 02/21/25 05:12 02/21/25 05:12 Labs: Laboratory Results - last 24 hr 02/20/25 13:01: POC Glucose 100 02/20/25 17:07: POC Glucose 157 H 02/20/25 22:14: POC Glucose 240 H 02/21/25 05:12: WBC 11.0, RBC 2.26 L, Hgb 7.3 L, Hct 21.3 L, MCV 94.2 H, MCH 32.3 H, MCHC 34.3, RDW Std Deviation 55.9 H, RDW Coeff of Scotty 16.3 H, Plt Count 152, MPV 10.4, PT 15.8 H, INR 1.2, APTT 34.5, Sodium 135, Potassium 3.3 L, Chloride 99, Carbon Dioxide 21.4, Anion Gap 14, BUN 22 H, Creatinine 2.84 H, Estim Creat Clear Calc 20.62 L, Est GFR (MDRD) Non-Af 21 L, BUN/Creatinine Ratio 7.7 L, Glucose 101 H, Calcium 7.4 L 02/21/25 08:26: Crossmatch See Detail Micro: Microbiology 02/20/25 20:38 Stool Stool Occult Blood (ANABELL) - Final 02/20/25 20:38 Stool Enteric Bacteriology - Final 02/20/25 20:38 Stool Clostridioides difficile (PCR) - Final 02/17/25 15:29 Blood Culture (Wb) - Left Hand Blood Culture - Preliminary No growth in 48 hours. 02/17/25 15:29 Blood Culture (Wb) - Left Forearm Blood Culture - Preliminary No growth in 48 hours. Radiography Diagnostic Testing: Radiology Impression Gallbladder Ultrasound 02/20/25 08:03 IMPRESSION: 1. Small gallbladder polyp versus adherent stone versus small sludge ball. 2. Left hepatic lobe cyst. 3. No ultrasound evidence of cholecystitis. 4. Ascites. Reading Location: [place] [address] Hepatobiliary Scan Nuclear Medicine 02/20/25 12:23 IMPRESSION: No activity seen in the distended gallbladder at 120 minutes post injection of the radiopharmaceutical. Findings are consistent with acute cholecystitis. These findings were relayed by myself to Dr. Evans. I obtained a 2nd opinion on this study from Dr. Dalton. Reading Location: [place] [address]
[2025-02-21] MEDS: Potassium Chloride 10mEq/100mL 10 MEQ/100 ML IV.SOLN. 100 MEQ IV BOLUS ×4 (09:29→19:33)
[2025-02-21] MEDS: 0.9% Normal Saline (1000mL) 1,000 ML 15 ML IV (11:08)
--- NOTE | 2025-02-21 11:43 | PCM.PRE.AN2 ---
ASA Classification* ASA Classification ASA Classification: 3 Assessment & Plan Anesthesia* Anesthesia Assessment Anesthesia Assessment: Discussed sedation and/or anesthesia options, risks, benefits, and alternatives with patient/parents/legal guardian/POA. Questions invited. The patient/parents/legal guardian/POA seems to understand and agrees to proceed with anesthesia plan. Reviewed the physical assessment, medical history, allergy history and patient home medications list prior to surgery/procedure/anesthetic and documented any changes. Performed airway and anesthesia risk assessments. Anesthesia Type Anesthesia Type: General (Will start blood prior to the OR.) History Source History Obtained from:: Patient and Chart Anesthesia Focused Assessment* Temperature: 98.1 F Pulse Rate: 94 Blood Pressure: 126/76 Respiratory Rate: 16 Pulse Ox: 93 Oxygen Delivery Method: Room Air Oxygen Flow Rate (L/min): 2 Airway Assessment Mouth opens: >3 cm Mallampati Score: III Teeth Condition: Chipped/Broken (Patient has a couple chipped teeth.) and Lower (Patient has a couple of bridges. They are tight.) Neck Range of motion (ROM): Limited ROM (Somewhat Decreased) Labs Anesthesia Preop lab: CBC WBC, (4.4-11.0) 11.0 K/mm3 Today, 05:12 RBC, (4.6-6.2) 2.26 M/mm3 L Today, 05:12 Hgb, (13.0-16.5) 7.3 g/dL L Today, 05:12 Hct, (40-54) 21.3 % L Today, 05:12 Plt Count, (150-450) 152 K/mm3 Today, 05:12 CHEMISTRY Potassium, (3.5-5.1) 3.3 mmol/L L Today, 05:12 Sodium, (135-145) 135 mmol/L Today, 05:12 Magnesium, (1.5-2.2) 1.7 mg/dL 02/15/25, 05:50 Phosphorus, (2.7-4.5) 3.5 mg/dL 02/15/25, 05:50 BUN, (4-19) 22 mg/dL H Today, 05:12 Creatinine, (0.70-1.20) 2.84 mg/dL H Today, 05:12 Glucose, (70-99) 101 mg/dL H Today, 05:12 POC Glucose, (74-106) 240 mg/dL H 02/20/25, 22:14 TSH, (0.300-4.200) 0.591 uIU/mL 12/03/24, 14:24 COAG PT, (11.7-14.9) 15.8 SECONDS H Today, 05:12 Pre-Assessment Diagnosis/Proposed Procedure Planned Operative Procedure(s): Laparoscopic cholecystectomy Anesthesia History 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 When Was Last Pacemaker Check QUESTION #4 FULL TEXT: You/Your Family Experience fever (hyperthermia) with Anesthesia Last Oral Intake Last Oral intake: Last Oral Intake NPO since 00:00 02/21/25 02:23 Meds taken in AM with sips of Yes 02/21/25 02:23 water? Meds patient instructed to Metoprolol and Norvasc 02/21/25 02:23 take am of surgery Any additional information?: Yes Meds taken in AM with sips of water?: Yes PONV PONV - blood bank supervisor: PONV - blood bank supervisor Female HX of Motion Sickness HX of N/V After Surgery Non-Smoker Duration of Surgery greater than 60 minutes Number of Risk Factors PONV Score Height & Weight Height & Weight: Anesthesia: Height & Weight Height 5 ft 11 in 02/21/25 02:23 Weight: 76.4 kg 02/21/25 02:23 Body Mass Index (BMI) 23.5 02/21/25 02:23 Respiratory Assessment Respiratory Assessment - blood bank supervisor: Respiratory Tract Infection Hx - blood bank supervisor Hx Respiratory Tract Infection No 02/21/25 05:12 STOP Sleep Apnea STOP Sleep Apnea - blood bank supervisor: STOP Sleep Apnea - blood bank supervisor Hx Hypertension Yes 02/19/25 09:04 Hx Sleep Apnea No 02/15/25 13:45 CPAP BIPAP Do you snore loudly (louder No 02/15/25 13:45 than talking or can be heard Do you often feel tired/ No 02/15/25 13:45 fatigued/ sleepy during daytime? Has anyone observed you stop No 02/15/25 13:45 breathing during sleep? STOP Results Negative 02/15/25 13:45 QUESTION #5 FULL TEXT : Do you snore loudly (louder than talking or can be heard through closed doors)? 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 Specify any problems Hx of Preganancy in last 3 N/A 02/15/25 13:45 Months Nurse Filling Out Transfusion JOSSUE 02/15/25 13:45 & Questions: Date: 02/15/25 02/15/25 13:45 Time: 14:06 02/15/25 13:45 Patient unable to answer at this time (ie. confused, unrespo /Reproduction History /Reproductive History - blood bank supervisor: /Reproductive Hx- blood bank supervisor Hx Now No 02/21/25 05:12 Gestational Age (in weeks): EDC: Hx Hx Para Hx Section SAB No 02/21/25 05:12 Does the father of the baby or his family experience fever w Father of the baby Malignant Hypertension history comment Active Medications Active Medications: Current Medications Generic Name Dose Route Start Last Admin Trade Name Freq PRN Reason Stop Dose Admin Acetaminophen 650 mg 02/15/25 13:49 02/17/25 14:14 Acetaminophen 325 Mg Tablet PO 650 mg Q6H PRN PRN Administration Pain 1-10 Or Fever >100.7 Acyclovir 200 mg 02/15/25 22:00 02/20/25 22:23 Acyclovir 200 Mg Capsule PO 200 mg BID YAMIL Administration Al Hydrox/Mg Hydrox/Simethicone 30 ml 02/15/25 14:33 02/15/25 14:41 Mag /Aluminum/Simeth Wch Udc 30 Ml Oral.Susp PO 30 ml Q6H PRN PRN Administration Gastric Burning Albuterol Sulfate 2.5 mg 02/15/25 13:49 Albuterol 2.5 Mg/3 Ml Vial.Neb. INHALATION Q2H PRN PRN SOB &/OR WHEEZING Amlodipine Besylate 5 mg 02/15/25 14:30 02/21/25 08:39 Amlodipine 5 Mg Tablet PO 5 mg DAILY YAMIL Administration Protocol Aspirin 81 mg 02/16/25 08:00 02/20/25 13:01 Aspirin 81 Mg Tab.Chew PO 81 mg BREAKFAST YAMIL Administration Atorvastatin Calcium 20 mg 02/15/25 22:00 02/20/25 22:23 Atorvastatin Calcium 20 Mg Tablet PO 20 mg QHS YAMIL Administration Bisacodyl 10 mg 02/16/25 12:22 Bisacodyl 10 Mg Suppository RC DAILY PRN constipation Calamine/Phenol 1 applic 02/20/25 22:00 02/21/25 05:12 Menthol/Lanolin/Calamine/Znox 113 Gm Tube TOPICAL Not Given TID [facility] Protocol Glucagon 1 mg 02/15/25 13:49 Glucagon 1 Mg/Ml Syringe IM X1 PRN Hypoglycemia Protocol Dextrose 250 mls @ 0 mls/hr 02/15/25 13:49 Dextrose 10%-Water IV .Q0M PRN HYPOGLYCEMIA Protocol As Directed Sodium Chloride 500 mls @ 15 mls/hr 02/17/25 16:06 IV PRN PRN Blood Transfusion Sodium Chloride 250 mls @ 15 mls/hr 02/17/25 16:06 IV .[id number] PRN Saline Flush Sodium Chloride 250 mls @ 15 mls/hr 02/17/25 16:06 IV .[id number] PRN Additional IVPB Infusion Piperacillin Sod/Tazobactam 50 mls @ 12.5 mls/hr 02/20/25 22:00 02/21/25 04:49 Sod 3.375 gm/ Sodium Chloride IV Infused Q12 YAMIL Infusion Vancomycin IV-PHARMACY TO DOSE 500 mls @ 250 mls/hr 02/20/25 14:04 1 each/ Sodium Chloride IV X1 PRN Rx to Dose Protocol Potassium Chloride 10 meq in 100 mls @ 100 mls/hr 02/21/25 08:15 02/21/25 10:52 IV BOLUS 02/21/25 12:14 0 mls/hr Q1H YAMIL Infusion Sodium Chloride 1,000 mls @ 15 mls/hr 02/21/25 11:05 02/21/25 11:08 IV 15 mls/hr .Q48H YAMIL Administration Insulin Glargine 10 unit 02/16/25 22:00 02/20/25 22:29 Insulin Glargine-Yfgn 100 Unit/Ml Pen SC 10 unit QHS YAMIL Administration Insulin Human Lispro 0 unit 02/15/25 16:00 02/21/25 06:28 Insulin Lispro 100 Unit/Ml Insuln.Pen SC Not Given ACHS [facility] Protocol Levothyroxine Sodium 100 mcg 02/16/25 06:00 02/21/25 05:12 Levothyroxine 100 Mcg Tablet PO 100 mcg DAILY@0600 YAMIL Administration Loperamide HCl 2 mg 02/20/25 16:15 02/20/25 22:23 Loperamide 2 Mg Capsule PO 2 mg Q4H PRN PRN Administration DIARRHEA/LOOSE STOOLS Magnesium Chloride 128 mg 02/15/25 22:00 02/20/25 22:24 Magnesium Chloride 64 Mg Delay Rel.Tablet PO 128 mg QHS YAMIL Administration Metoprolol Tartrate 25 mg 02/15/25 14:30 02/21/25 08:39 Metoprolol Tartrate 25 Mg Tablet PO 25 mg BID YAMIL Administration Protocol Metoprolol Tartrate 5 mg 02/20/25 12:19 Metoprolol Tartrate 5 Mg/5 Ml Vial IV Q6H PRN PRN tachycardia Protocol Mirtazapine 7.5 mg 02/15/25 22:00 02/20/25 22:25 Mirtazapine 15 Mg Tablet PO 7.5 mg QHS YAMIL Administration Ondansetron HCl 4 mg 02/15/25 13:49 02/15/25 20:42 Ondansetron 4 Mg/2 Ml Vial IV 4 mg Q6H PRN Administration NAUSEA/VOMITING Pantoprazole Sodium 40 mg 02/20/25 22:00 02/20/25 22:24 Pantoprazole Sodium 40 Mg Tablet PO 40 mg QHS YAMIL Administration Polyethylene Glycol 17 gm 02/19/25 10:56 Polyethylene Glycol 3350 17 Gm Packet PO DAILY PRN CONSTIPATION Psyllium Hydrophilic Mucilloid 1 packet 02/20/25 10:00 02/20/25 12:59 Psyllium 1 Packet PO Not Given On Hold: 02/20/25 16:16 DAILY YAMIL Senna 2 tablet 02/16/25 22:00 02/20/25 12:59 Senna Tablet PO Not Given On Hold: 02/20/25 16:16 BID YAMIL Sodium Chloride 10 - 40 ml 02/15/25 14:07 02/20/25 11:33 0.9% Saline Lock 10 Ml Syringe IV 40 ml UD PRN Administration SALINE FLUSH PFSH Medical History Chronic renal failure (CRF), stage 5 Type II diabetes mellitus Anemia Multiple myeloma CKD (chronic kidney disease) stage 1, GFR 90 ml/min or greater Trigger finger of right hand Apical variant hypertrophic cardiomyopathy HLD (hyperlipidemia) Shingles (herpes zoster) polyneuropathy Acute urticaria GERD (gastroesophageal reflux disease) Hypothyroidism Home Medications ?Medication ?Instructions ?Recorded ?Last Taken ?Type blood sugar diagnostic (True #100 ea 02/11/23 Unknown Rx Metrix Glucose Test Strip) blood-glucose meter #1 ea 02/11/23 Unknown Rx atorvastatin 20 mg tablet 20 mg PO QDAY #90 tabs 09/29/24 02/14/25 Rx lancets 30 gauge (Unilet Lancets) #100 ea 09/29/24 Unknown Rx levothyroxine 100 mcg tablet 100 mcg PO DAILY #100 tabs 09/29/24 02/14/25 Rx pen needle, diabetic 29 gauge x #100 ea 09/29/24 Unknown Rx 1/2 (CareFine Pen Needle) ondansetron 4 mg disintegrating 4 mg PO Q8H PRN nausea and 11/29/24 12/02/24 Rx tablet vomiting #14 tabs insulin glargine 100 unit/mL (3 21 unit subcut QHS 12/03/24 02/14/25 History mL) subcutaneous pen (Lantus Solostar U-100 Insulin) magnesium 250 mg tablet 250 mg PO QHS 12/03/24 02/14/25 History acyclovir 200 mg capsule 200 mg PO BID #60 caps 12/14/24 02/14/25 Rx insulin lispro 100 unit/mL 1 sliding scale dose subcut QACHS 12/15/24 02/14/25 Rx subcutaneous pen (Humalog KwikPen #15 mL (U-100) Insulin) aspirin 81 mg tablet 81 mg PO QDAY 12/19/24 02/14/25 History dexamethasone 4 mg tablet 40 mg PO QWEEK 12/29/24 02/13/25 History mirtazapine 7.5 mg tablet 7.5 mg PO QHS 90 days #90 tabs 12/29/24 02/14/25 Rx omeprazole 20 mg capsule,delayed 20 mg PO QHS 12/29/24 02/14/25 History release amlodipine 5 mg tablet 5 mg PO DAILY 30 days #90 tabs 01/02/25 02/21/25 Rx metoprolol tartrate 25 mg tablet 25 mg PO BID 30 days #180 tabs 01/02/25 02/14/25 Rx pramoxine 1 % topical foam 1 applic VA BID #15 grams 02/08/25 02/14/25 Rx (Proctofoam) Allergy/AdvReac Type Severity Reaction Status Date / Time meloxicam (From Mobic) Allergy Severe unknown Verified 02/15/25 05:52 pentazocine (From Talwin) Allergy Severe unknown Verified 02/15/25 05:52 metaxalone AdvReac Intermediate Nausea Verified 02/15/25 05:52 Family History Father Heart disease Mother CVA (cerebral vascular accident) Hypertension Breast cancer Surgical History History of back surgery History of left knee surgery History of appendectomy History of cardiac cath Social History Smoking Status: Former smoker Tobacco: How many years used: 2 how long ago did patient quit smokin alcohol intake: never substance use type: does not use Review of Systems (Anesthesia) ROS Narrative System reviewed and no additional complaints, except as documented.
--- NOTE | 2025-02-21 12:00 | GALL_PTH ---
PATIENT: LINA ORTA LOC: [facility] U#:[id number] AGE/SX: 84/M ROOM: [facility] RE02/18/[address]: Dr. Bri Nolen DO : 1940 BED: 1 DIS: 02/24/2025 SPEC #: [id number] RECD: 02/21/25 16:20 STATUS: GENA RERoss #: [id number] LISA: 02/21/25 12:[address]: Henry Evans DEPT: SURGICAL PATHOLOGY RECD BY: Jay éMndez ENTERED: 02/22/25 10:48 SP TYPE: GALLBLADDE INNAHR DR: Dr. Abdullahi Rahman, DO Dr. Alyssia Gallego Dr., MD Dr. Kathryn Lee, DO Dr. Claire Mazariegos MD Tissues: A - Gallbladder, NOS Procedures: Surgery Specimen Level III Comments: @ Ordering doctor for SUIII edited from to @ by HUSAM at 02/22/25 1048 @ Submitting doctor edited from to @ by HUSAM at 02/22/25 1048 HEADER OPERATION: Laparoscopic cholecystectomy PRE-OP DIAGNOSIS: Acute cholecystitis POST-OP DIAGNOSIS: Gangrenous acute cholecystitis TISSUE SUBMITTED: A. Gallbladder MICROSCOPIC DIAGNOSIS A. Gallbladder, laparoscopic cholecystectomy: - Nodule of benign liver with acute inflammation - see note. - Gangrenous cholecystitis, fat necrosis. Note: A lymph node is not identified. The gallbladder appears completely necrotic in these sections. MICROSCOPIC DESCRIPTION Slides are reviewed. GROSS DESCRIPTION A. Received in formalin labeled with the patient's name and date of . Designated as gallbladder is an 8.4 x 4.8 x 1.8 cm diffusely shaggy, congested and disrupted gallbladder. The serosa is pink-red to green-li and appears necrotic. A definitive cystic duct margin is not identified. A 2.4 cm hansen to pink, fibrotic, apparent lymph node with an overlying portion of clotted blood is identified on the serosal surface. The gallbladder mucosa is dark green and granular. Sectioning reveals light yellow submucosal apparent exudate and a markedly thickened, hansen to light brown-red, fibrotic wall with a gross appearance resembling liver parenchyma, measuring up to 0.8 cm thick. No choleliths or cholesterolosis identified. [employer] sections are submitted in 4 cassettes, to include the possible lymph node in cassette A1. [place] 02/22/2025 CPT:36270
[2025-02-21] MEDS: 0.9% Normal Saline (1000mL) 700 ML IV (13:23)
[2025-02-21] MEDS: Lidocaine 1% (5 ml sdv) 5 ML Vial IV (13:33)
--- NOTE | 2025-02-21 13:47 | PCM.PN.HOSP ---
Reason for Visit Chief Complaint: Epigastric pain Subjective Subjective Patient states he is not having much pain currently. He is n.p.o. for surgery later today. No specific complaints at this time. Anxious to get the surgery done and feel better. Objective Data Objective Data Vital Signs: Vital Signs Temp Pulse Resp BP Pulse Ox O2 Del Method O2 Flow Rate 98.3 F 88 16 112/64 94 Room Air 2 02/21/25 12:45 02/21/25 12:45 02/21/25 12:45 02/21/25 12:45 02/21/25 12:45 02/21/25 12:45 02/21/25 12:18 Oxygen Flow Rate (L/min) 2 Oxygen Delivery Method Room Air Weight: 76.4 kg Body Mass Index (BMI) 23.5 Intake & Output: Intake and Output for Last 24 Hours 02/19/25 02/20/25 02/21/25 23:59 23:59 23:59 Intake Total 630 / 630 1100.00 / 1600.00 683.33 / 683.33 Output Total 250 / 525 3105 / 5485 2680 / 2680 Balance 380 / 105 -2004.00 / -3885.00 -1995.67 / - Lab / Micro Data 02/21/25 05:12 02/21/25 05:12 Labs: Laboratory Results - last 24 hr 02/18/25 07:06: Crossmatch See Detail 02/20/25 17:07: POC Glucose 157 H 02/20/25 22:14: POC Glucose 240 H 02/21/25 05:12: WBC 11.0, RBC 2.26 L, Hgb 7.3 L, Hct 21.3 L, MCV 94.2 H, MCH 32.3 H, MCHC 34.3, RDW Std Deviation 55.9 H, RDW Coeff of Scotty 16.3 H, Plt Count 152, MPV 10.4, PT 15.8 H, INR 1.2, APTT 34.5, Sodium 135, Potassium 3.3 L, Chloride 99, Carbon Dioxide 21.4, Anion Gap 14, BUN 22 H, Creatinine 2.84 H, Estim Creat Clear Calc 20.62 L, Est GFR (MDRD) Non-Af 21 L, BUN/Creatinine Ratio 7.7 L, Glucose 101 H, Calcium 7.4 L 02/21/25 08:26: Blood Type O POSITIVE, Antibody Screen NEGATIVE, Crossmatch See Detail Micro: Microbiology 02/20/25 20:38 Stool Stool Occult Blood (ANABELL) - Final 02/20/25 20:38 Stool Enteric Bacteriology - Final 02/20/25 20:38 Stool Clostridioides difficile (PCR) - Final 02/17/25 15:29 Blood Culture (Wb) - Left Hand Blood Culture - Preliminary No growth in 48 hours. 02/17/25 15:29 Blood Culture (Wb) - Left Forearm Blood Culture - Preliminary No growth in 48 hours. Radiography Diagnostic Testing: Radiology Impression Gallbladder Ultrasound 02/20/25 08:03 IMPRESSION: 1. Small gallbladder polyp versus adherent stone versus small sludge ball. 2. Left hepatic lobe cyst. 3. No ultrasound evidence of cholecystitis. 4. Ascites. Reading Location: [place] [address] Hepatobiliary Scan Nuclear Medicine 02/20/25 12:23 IMPRESSION: No activity seen in the distended gallbladder at 120 minutes post injection of the radiopharmaceutical. Findings are consistent with acute cholecystitis. These findings were relayed by myself to Dr. Evans. I obtained a 2nd opinion on this study from Dr. Dalton. Reading Location: [place] [address] Physical Exam Const alert, oriented x3, no apparent distress, average body habitus and well nourished Constitutional Narrative: Pleasant, elderly, white male, reclining in bed, watching television, appears comfortable, does not appear toxic HEENT head/scalp atraumatic and moist oral mucous membranes HEENT Narrative: Dentition is poor, Mallampati is 2, no thrush Head and Scalp: normocephalic Eyes Negative for conjunctivae normal Eyes Narrative: Bilateral conjunctiva pallor, no scleral icterus Neck supple Neck Narrative: Trachea midline Resp normal respiratory effort, no retractions, no use of accessory muscles and clear to auscultation bilaterally Auscultation: Negative for rales, rhonchi or wheezes Cardio regular rate, regular rhythm, S1 normal heart sound, S2 normal heart sound, no murmurs, no rub, no gallops and no clicks GI normal to inspection, nondistended, normoactive bowel sounds and soft to palpation GI Narrative: Mild epigastric tenderness Extremity no clubbing, cyanosis or edema Extremity Narrative: 2+ pedal pulses Neuro moves all extremities and no focal motor deficits Speech: speech normal Psych affect normal Psych Narrative: Very pleasant, eye contact is good and patient appears comfortable Assessment & Plan Assessment/Plan (1) Acute cholecystitis: (2) Acute on chronic anemia: (3) Hypokalemia: PLAN: Plan Epigastric abdominal pain secondary to acute cholecystitis - CT on presentation of the abdomen and pelvis with oral contrast showed perinephritic stranding and a distended bladder with enlarged prostate and no other acute concerning findings - UA was unremarkable - Constipation noted on KUB with aggressive bowel regimen initiated but persistent pain - CT abdomen pelvis with IV contrast showed distended gallbladder and new pericholestatic fluid with no cholelithiasis or bile duct dilation - Gallbladder ultrasound on 02/20/2025 with no evidence of cholecystitis and only a gallbladder polyp versus adherent stone and ascites - HIDA scan done on 02/20/2025 that showed findings consistent with acute cholecystitis - Plan is for OR today 02/21/2025 for laparoscopic cholecystectomy - Discussed case with Dr. Evans - Potassium and blood transfusion ordered preoperatively Acute on chronic anemia secondary to renal disease - Assess for acute blood loss - Check Hemoccult - Was transfused 1 unit on 02/17/2025 - Baseline hemoglobin appears to run between 7.5 and 8.5 and is related to his renal disease and multiple myeloma - Transfused 2 units packed red blood cells today preoperatively - Repeat CBC in a.m. - Assess for stability Acute hypokalemia - Likely related to stool losses with bowel cleanout - IV potassium 40 mill equivalents given the patient is n.p.o. preoperatively - Repeat lab with BMP and magnesium level in a.m. Acute constipation - Resolved with bowel regimen - Monitor closely postoperatively with anesthesia and pain medication New onset A-fib with RVR - Patient became tachycardic during dialysis on a.m. of 02/20/2025 - EKG was consistent with A-fib with RVR - Resolved - No anticoagulation now given patient is preoperative--> plan will be for Eliquis 2.5 mg p.o. twice daily when deemed appropriate by surgery -Should be able to discontinue aspirin at that time - Continue to monitor on telemetry - Will need outpatient cardiology follow-up End-stage renal disease on HD - Secondary to biopsy-proven multiple myeloma and ATN - Currently on HD twice weekly - Last dialysis session 02/20/2025 - Nephrology following and will continue dialysis per nephrology - Patient does appear to be having recovery of his renal function Acute on chronic thrombocytopenia - Patient did trend down but now has trended back up and actually normalized at 152,000 - Patient tends to fluctuate between low normal counts and mildly thrombocytopenic - Repeat CBC in a.m. Multiple myeloma - Follows with oncology with last office visit 02/13/2025 - Diagnosed in November 2024 - Currently on daratumumab and velcade and completed cycle 3 the week of 02/13 - Continue ongoing outpatient follow-up after discharge DM-2 - Well-controlled with hemoglobin A1c of 6.4 on 12/06/2024 - On Lantus 10 units at at bedtime with basal insulin typically at 21 units at at bedtime due to n.p.o. and decreased p.o. intake - Fasting blood sugar this morning was 101 - Continue to monitor blood sugars - Continue SSI Leukocytosis - Resolved - Continue antibiotics as ordered with Zosyn Nonobstructive CAD/essential hypertension/hyperlipidemia - Continue aspirin for now but with transition to Eliquis will likely discontinue - Continue statin - Continue amlodipine - Continue Lopressor Hypothyroidism - Continue home Synthroid DVT prophylaxis - Continue SCDs for now - Plan to transition to Eliquis 2.5 mg p.o. twice daily once okay with general surgery - Could start subcu heparin earlier if okay with general surgery CODE STATUS - Full code as verified at the time of admission Charges/Coding Visit Charges Inpatient E&M: [address] [facility] Hosp L3
[2025-02-21] MEDS: Piperacil/Tazobactam 3.375 GM/50 ML ML IV (13:50)
[2025-02-21] MEDS: Piperacil/Tazobactam 3.375 GM in 0.9% Normal Saline (50mL MB+) 50 ML IV ×2 (13:50→21:59)
[2025-02-21] MEDS: fentaNYL 100 MCG/2 ML Ampul IV (13:58)
--- NOTE | 2025-02-21 14:16 | PCM.PN.BLA ---
Progress Note HIDA scan consistent with cholecystitis. Discussed with hospitalist. Going to OR today. Labs reviewed. Will likely plan for dialysis tomorrow.
[2025-02-21 14:50] LABS: Prothrombin Time (Protime)PT. 15.8 SECONDS (11.7-14.9)
[2025-02-21 14:51] LABS: Partial Thromboplast Time 31.4 Seconds (24.1-36.2)
[2025-02-21 15:08] LABS: Heparin-Induced Plt Ab 0.063 OD (0.000-0.400)
[2025-02-21] MEDS: Bupiv/Epi 0.25% 30 ML Vial (15:48)
--- NOTE | 2025-02-21 15:57 | OP.PCM_ITS ---
Procedures Digestive 40xxx-49xxx: [address] Laparoscopic cholecystectomy Operative Report (Standard) Operative Information Date of Procedure: 02/21/25 Pre-Operative Diagnosis: Acute cholecystitis Post-Operative Diagnosis: Gangrenous cholecystitis Surgery/Procedure Performed: Laparoscopic cholecystectomy unified communications engineer: Yes Database Security Expert: Elvie Puga Tasks completed by preschool teacher assistant: Opening & closing and Other (Laparoscopic camera operation) Type of Anesthesia: General/Supplemental
--- NOTE | 2025-02-21 15:57 | PCM.OPRPT ---
Procedures Digestive 40xxx-49xxx: [address]68 Laparoscopic cholecystectomy Operative Report (Standard) Operative Information Date of Procedure: 02/21/25 Pre-Operative Diagnosis: Acute cholecystitis Post-Operative Diagnosis: Gangrenous cholecystitis Surgery/Procedure Performed: Laparoscopic cholecystectomy supervisor fruit grading: Yes Physician In Private Practice: Elvie Puga Tasks completed by dental assisting instructor: Opening & closing and Other (Laparoscopic camera operation) Type of Anesthesia: General/Supplemental RN Documented Start/Stop Times: Operation Date: 02/21/25 12:00 Case Time Into Pre-Op 02/21/25 10:56 Out of Pre-Op 02/21/25 13:18 Anesthesia Start 02/21/25 13:23 Into Room 02/21/25 13:23 Procedure Start 02/21/25 13:50 Procedure End 02/21/25 15:57 Anesthesia End 02/21/25 16:04 Out of Room 02/21/25 16:04 Into Recovery 02/21/25 16:06 Out of Recovery 02/21/25 17:12 Procedure Start Time: 13:50 Procedure Stop Time: 15:57 Select all DRAINS/GRAFTS/IMPLANTS that apply: Drains Drain details: 19 [place] round Ajit Estimated Blood Loss: 100 Specimen collected: Yes Description of specimen(s) removed: Gallbladder Description of surgery: After proper identification in the preoperative holding area and awaiting a partial transfusion of a unit of blood for his anemia, the patient was brought to the operating room where he was positioned supine on the operating room table. Preoperatively SCDs were connected. General anesthesia was then induced. A now due dose of his continuous Zosyn order was administered by anesthesia. Patient's abdomen was prepped and draped in usual sterile fashion. A formal timeout was conducted to confirm both patient and the procedure. Procedure was begun with a supraumbilical incision which was extended deeply down to the level of the fascia. The fascia was elevated and incised, as well as the peritoneum. A finger sweep was performed to ensure there were no underlying adhesions and a 12 mm balloon trocar was inserted. Pneumoperitoneum was established at 15 mmHg. Three additional trocars (all 5 mm) were placed in the epigastrium (this would later be upsized to a 12 mm port) and in the right upper quadrant. Inspection of the peritoneum revealed no inadvertent injury to the viscera below. There was a moderate amount of simple ascites. The gallbladder was not immediately visualized due to shrouding by the omentum. Once the omental attachments were taken down from the fundal portion of the gallbladder it was quickly evident that the patient had gangrenous cholecystitis and there began a diffuse ooze from patient's nondisplaced omentum as well as the interface with the liver. There did not appear to be a brisk bleed or any singular source so it was tolerated at first until I could obtain better gallbladder mobility. The gallbladder fundus was then grasped and elevated cephalad. Then, using careful dissection the peritoneum was opened and I began trying to identify the structures of the hepatocystic triangle. I thought glimpsed the cystic duct when the gallbladder was placed on traction but the triangle of calot was impossible to dissect on the account of a large amount of inflammatory rind obstructing the path to this dissection. On noting this difficulty and recognizing the patient's frailty I called for my partner, Dr. Martinez, to present to the room to help confirm anatomy. He presented shortly thereafter. Together we were able to identify the distal extent of the cystic duct, encircle it, and placed two 5 mm Hem-o-mike clips before division. It simply did not appear reasonable to pursue cholangiography given the friability of patient's tissues and concern for losing a target for clipping so this was not attempted. Unfortunately as the gallbladder was placed under traction during dissection of the cystic duct a inadvertent rent was made in the friable anterior wall resulting in spillage of bile locally. This was immediately suctioned free of the peritoneal cavity using laparoscopic suction automotive mechanic device. With the duct clipped a single anterior cystic artery was also clipped and divided and then I said about the tedious process of removing the gallbladder from the gallbladder fossa. I found the posterior wall to be equally gangrenous and difficult to separate from the liver and the associated rind medially and laterally. There is some bleeding evident from a posterior cystic artery within the lateral rind that I sought to address first with clips and then use selective electrocautery. I also placed a Ray-Chris into the abdomen and applying direct pressure and even attempted to apply hemoblast agent. Ultimately this bleeding required full dissection of a posterior cystic artery and clipping with titanium clips but hemostasis was successfully obtained. Eventually I was able to establish a plane between the posterior wall of the gallbladder and the gallbladder fossa and carried this plane superiorly to the liver edge in a hemostatic fashion using the L-hook cautery. The gallbladder was then fully removed from the liver surface and placed in an Endo Catch bag. Morison's pouch was irrigated and the effluent was suctioned free of the peritoneum. Hemostasis was again confirmed and the gallbladder fossa. Given evidence for suboptimal platelet function with appearance of a diffuse ooze I sought to try to safeguard against further bleeding by placing several portions of a fibrillar hemostatic agent strategically in the gallbladder fossa. Notably, after placement, this agent remained white in color?signifying that no further bleeding was ongoing. A 19 [place]an round Ajit drain was introduced the peritoneal cavity via the right upper quadrant lateral most port site and positioned along the inferior edge of the liver as well as in Morison's pouch. It was secured at the skin with a 3-0 nylon suture. The gallbladder was then removed from the peritoneal cavity in the Endo Catch bag. Pneumoperitoneum was evacuated and the fascia of the 12 mm port sites was closed with #1Vicryl in a [id number] fashion. A total of 30 mL of anesthetic was injected at the port sites for postoperative pain control. The skin of each port site was then closed in subcuticular fashion using 4-0 Monocryl. Steri-Strips and bandages were applied as dressings. Patient tolerated the procedure rather well but was noted to have reverted back to atrial fibrillation with rapid ventricular response upon awakening. On emergence from their anesthetic the patient was taken to PACU for ongoing recovery. Surgical Findings: ? Simple ascites present in the peritoneal cavity ? Gangrenous cholecystitis with extremely thick rind particularly in the region of the node of Calot precluding visualization of the cystic duct ? Rind present medially and laterally from the gallbladder fossa precluding clear view of accessory cystic arteries ? Inadvertent rent in the gallbladder resulting in bile spillage promptly suctioned free ? 19 [place]an Ajit drain fed in through the right upper quadrant lateralmost port site and placed both in Morison's pouch as well as at the inferior edge of the liver adjacent to the gallbladder fossa. Complications Complications: No Admit VTE Documentation VTE Mechan Device Prophylaxis: SCD's
--- NOTE | 2025-02-21 16:15 | PCM.POST.ANE ---
Anesthesia: Postop Eval I Current Vital Signs Temperature: 98.6 F Pulse Rate: 116 Blood Pressure: 134/83 Respiratory Rate: 16 Pulse Ox: 92 Assessment Airway patent: Yes Spontaneous unlabored respirations: Yes nausea: No Vomiting: No Anesthesia Complication: No Fluid Hydration Crystalloid volume administer (ml): 700 Total IV fluid infused: 700 Progress Note Anesthesia document: Postop Eval 1 completed: Yes
[2025-02-21] MEDS: Vancomycin HCl 750 MG in 0.9% Normal Saline (250mL Bag) 250 ML 250 MG IV (18:04)
--- NOTE | 2025-02-21 18:31 | POSTOPAN2_ITS ---
Anesthesia Postop Eval I Sum Postop Eval Completion status Anesthesia document: Postop Eval 1 completed: Yes Anesthesia Postop Eval I Summary Anesthesia Postop Eval I Summary: Anesthesia Postop Eval I: Assessment Summary Airway patent Yes 02/21/25 16:16 DIRECTOR STERILE [email or web address].[email or web address] Spontaneous unlabored Yes 02/21/25 16:16 DIRECTOR STERILE PROCESSING.TNES respirations Mental status nausea No 02/21/25 16:16 DIRECTOR STERILE PROCESSING.TNES Vomiting No 02/21/25 16:16 DIRECTOR STERILE PROCESSING.TNES Anesthesia Postop Eval I: Fluid Summary Crystalloid volume administer 700 02/21/25 16:16 DIRECTOR STERILE PROCESSING.TNES (ml) Colloids volume administered ( ml) Blood Product volume administered (ml) Total IV fluid infused 700 02/21/25 16:16 DIRECTOR STERILE PROCESSING.TNES Anesthesia Postop Eval I: Summary Notes Anesthesia Complication No 02/21/25 16:16 DIRECTOR STERILE PROCESSING.TNES Anesthesia Complication Comment: Post-operative progress note Anesthesia: Postop Eval II Evaluation Mental status: Awake and Calm Pain Level: 2 nausea: No Vomiting: No Complications Anesthesia Complication: No
--- NOTE | 2025-02-21 18:31 | PCM.POSTANE2 ---
Anesthesia Postop Eval I Sum Postop Eval Completion status Anesthesia document: Postop Eval 1 completed: Yes Anesthesia Postop Eval I Summary Anesthesia Postop Eval I Summary: Anesthesia Postop Eval I: Assessment Summary Airway patent Yes 02/21/25 16:16 VISITOR SERVICES SPECIALIST.[email or web address] Spontaneous unlabored Yes 02/21/25 16:16 VISITOR SERVICES SPECIALIST.TNES respirations Mental status nausea No 02/21/25 16:16 VISITOR SERVICES SPECIALIST.TNES Vomiting No 02/21/25 16:16 VISITOR SERVICES SPECIALIST.TNES Anesthesia Postop Eval I: Fluid Summary Crystalloid volume administer 700 02/21/25 16:16 VISITOR SERVICES SPECIALIST.TNES (ml) Colloids volume administered ( ml) Blood Product volume administered (ml) Total IV fluid infused 700 02/21/25 16:16 VISITOR SERVICES SPECIALIST.TNES Anesthesia Postop Eval I: Summary Notes Anesthesia Complication No 02/21/25 16:16 VISITOR SERVICES SPECIALIST.TNES Anesthesia Complication Comment: Post-operative progress note Anesthesia: Postop Eval II Evaluation Mental status: Awake and Calm Pain Level: 2 nausea: No Vomiting: No Complications Anesthesia Complication: No
[2025-02-21 19:02] LABS: Hematocrit 28.2 % (40-54); Hemoglobin 9.4 g/dL (13.0-16.5)
[2025-02-22] VITALS (15 sets, daily range): BP systolic 106–154; BP diastolic 67–93; PULSE 80–109; RESP 16–18; TEMP 35.9–36.9; O2SAT 94–99; BMI 23.6
[2025-02-22 06:34] LABS: Hematocrit 27.1 % (40-54); Hemoglobin 9.2 g/dL (13.0-16.5); Immature Granulocytes Count 0.070 X10^3/uL (0.0-0.0); Mean Corp Hgb Conc 33.9 g/dL (32-36); Mean Corpuscular Volume 90.9 fL (80-94); Mean Platelet Vol. 10.0 fl (6.2-12.0); NRBC Flagged by Analyzer 0 % (0-5); Platelet Count 165 K/mm3 (150-450); RBC Distribution Width CV 17.8 % (11.6-14.6); RBC Distribution Width SD 58.9 fl (35.1-43.9); Red Blood Count 2.98 M/mm3 (4.6-6.2); White Blood Count 8.5 K/mm3 (4.4-11.0)
[2025-02-22 07:15] LABS: AST(SGOT) 68 U/L (<=37); Alanine Aminotransfer ALT/SGPT 60 U/L (<=46); Albumin, Serum 2.8 g/dL (3.4-4.8); Alkaline Phosphatase 94 U/L (40-129); Anion Gap 13 (7-18); BUN 24 mg/dL (4-19); BUN/Creat Ratio 7.3 RATIO (10-20); Calcium,Total 6.7 mg/dL (7.6-11.0); Carbon Dioxide 18.7 mmol/L (20.0-29.0); Chloride 104 mmol/L (96-106); Estimated Creatinine Clearance 17.97 ml/min (50-250); Globulin 2.8 g/dL (2.2-4.2); Glucose 81 mg/dL (70-99); Magnesium 1.7 mg/dL (1.5-2.2); Potassium 3.9 mmol/L (3.5-5.1)
[2025-02-22 07:16] LABS: Vancomycin, Random Level 13.2 ug/mL (0.0-15.0)
--- NOTE | 2025-02-22 07:56 | PCM.PN.HOSP ---
Reason for Visit Chief Complaint: Epigastric pain Subjective Subjective Having some pain. Will add pain meds for comfort. On HD and tolerating well. Had some post op a-fib but now back in NSR. Objective Data Objective Data Vital Signs: Vital Signs Temp Pulse Resp BP Pulse Ox O2 Del Method O2 Flow Rate 98.2 F 95 18 117/78 94 Nasal Cannula 2 02/22/25 05:24 02/22/25 05:24 02/22/25 05:24 02/22/25 05:24 02/22/25 05:24 02/22/25 05:24 02/22/25 05:24 Oxygen Flow Rate (L/min) 2 Oxygen Delivery Method Nasal Cannula Weight: 76.4 kg Body Mass Index (BMI) 23.5 Intake & Output: Intake and Output for Last 24 Hours 02/20/25 02/21/25 02/22/25 23:59 23:59 23:59 Intake Total 1100.00 / 1600.00 1435.25 / 1510.25 325 / 325 Output Total 3105 / 5485 3175 / 3320 255 / 255 Balance -2005.00 / -3885.00 -1739.75 / -1809.75 70 / 70 Lab / Micro Data 02/22/25 06:00 02/22/25 06:00 Labs: Laboratory Results - last 24 hr 02/18/25 07:06: Crossmatch See Detail 02/20/25 06:37: Heparin-induced Plt Ab 0.063 02/21/25 08:26: Blood Type O POSITIVE, Antibody Screen NEGATIVE, Crossmatch See Detail 02/21/25 14:25: PT 15.8 H, INR 1.2, APTT 31.4 02/21/25 17:59: Hgb 9.4 L, Hct 28.2 L 02/21/25 18:25: POC Glucose 119 H 02/21/25 21:53: POC Glucose 97 02/22/25 06:00: WBC 8.5, RBC 2.98 L, Hgb 9.2 L, Hct 27.1 L, MCV 90.9, MCH 30.9, MCHC 33.9, RDW Std Deviation 58.9 H, RDW Coeff of Scotty 17.8 H, Plt Count 165, MPV 10.0, Immature Gran % (Auto) 0.800, Neut % (Auto) 79.5 H, Lymph % (Auto) 8.1 L, [place] % (Auto) 6.1, Eos % (Auto) 5.3 H, Baso % (Auto) 0.2, Absolute Neuts (auto) 6.8, Absolute Lymphs (auto) 0.69 L, Nucleated RBC % 0, Sodium 136, Potassium 3.9, Chloride 104, Carbon Dioxide 18.7 L, Anion Gap 13, BUN 24 H, Creatinine 3.26 H, Estim Creat Clear Calc 17.97 L, Est GFR (MDRD) Non-Af 18 L, BUN/Creatinine Ratio 7.3 L, Glucose 81, Calcium 6.7 L, Phosphorus 3.7, Magnesium 1.7, Total Bilirubin 0.47, AST 68 H, ALT 60 H, Alkaline Phosphatase 94, Total Protein 5.6 L, Albumin 2.8 L, Globulin 2.8, Albumin/Globulin Ratio 1.0, Random Vancomycin 13.2 02/22/25 06:36: POC Glucose 80 Micro: Microbiology 02/20/25 20:38 Stool Stool Occult Blood (ANABELL) - Final 02/20/25 20:38 Stool Enteric Bacteriology - Final 02/20/25 20:38 Stool Clostridioides difficile (PCR) - Final 02/17/25 15:29 Blood Culture (Wb) - Left Hand Blood Culture - Preliminary No growth in 48 hours. 02/17/25 15:29 Blood Culture (Wb) - Left Forearm Blood Culture - Preliminary No growth in 48 hours. Physical Exam Const alert, oriented x3, no apparent distress, average body habitus and well nourished Constitutional Narrative: Pleasant, elderly, white male, Lying in bed on HD, covered in multiple blankets, HD nurse at bedside General Appearance: cooperative HEENT normocephalic, head/scalp atraumatic and moist oral mucous membranes Eyes Negative for conjunctivae normal Resp normal respiratory effort, normal air movement, no retractions, no use of accessory muscles and clear to auscultation bilaterally Auscultation: Negative for rales, rhonchi or wheezes Cardio regular rate, regular rhythm, S1 normal heart sound, S2 normal heart sound, no murmurs, no rub, no gallops and no clicks GI normal to inspection, nondistended, normoactive bowel sounds and soft to palpation GI Narrative: Diffuse tenderness, YAMEL in place with serosanguineous fluid in drain Extremity no clubbing, cyanosis or edema Extremity Narrative: 2+ pedal pulses Neuro moves all extremities and no focal motor deficits Speech: speech normal Psych mental status grossly normal and affect normal Psych Narrative: Very pleasant, eye contact is good and patient appears comfortable Assessment & Plan Assessment/Plan (1) Acute cholecystitis: (2) Acute on chronic anemia: (3) Hypokalemia: PLAN: Plan Epigastric abdominal pain secondary to acute cholecystitis with gangrenous gall bladder - CT on presentation of the abdomen and pelvis with oral contrast showed perinephritic stranding and a distended bladder with enlarged prostate and no other acute concerning findings - Constipation noted on KUB with aggressive bowel regimen initiated but persistent pain - CT abdomen pelvis with IV contrast showed distended gallbladder and new pericholestatic fluid with no cholelithiasis or bile duct dilation - Gallbladder ultrasound on 02/20/2025 with no evidence of cholecystitis and only a gallbladder polyp versus adherent stone and ascites - HIDA scan done on 02/20/2025 that showed findings consistent with acute cholecystitis - Post-op day 1 Laparoscopic cholecystectomy -post op abx per Gen surg -add oxy 5 mg po prn -FLD and advance per Gen Surg -YAMEL drain in place with serosanguineous fluid -ABX per surgery(on Zosyn) -d/w Dr. Martinez and possible d/c tomorrow Acute on chronic anemia secondary to renal disease - Assess for acute blood loss - Occult neg - Was transfused 1 unit on 02/17/2025 and 2 U 02/21/25 - Hgb up to 9.2 and stable - Baseline hemoglobin appears to run between 7.5 and 8.5 and is related to his renal disease and multiple myeloma - Repeat CBC in a.m. - Assess for stability Acute hypokalemia - resolved Acute constipation - Resolved with bowel regimen - Monitor closely postoperatively with anesthesia and pain medication New onset A-fib with RVR - Patient became tachycardic during dialysis on a.m. of 02/20/2025 - EKG was consistent with A-fib with RVR - recurrent post-op but now in NSR again - plan will be for Eliquis 2.5 mg p.o. twice daily when deemed appropriate by surgery -Should be able to discontinue aspirin at that time - Continue to monitor on telemetry - Will need outpatient cardiology follow-up End-stage renal disease on HD - Secondary to biopsy-proven multiple myeloma and ATN - Currently on HD twice weekly -HD today to clear contrast - Last dialysis session 02/20/2025 - Nephrology following and will continue dialysis per nephrology - Patient does appear to be having recovery of his renal function Acute on chronic thrombocytopenia - resolved Multiple myeloma - Follows with oncology with last office visit 02/13/2025 - Diagnosed in November 2024 - Currently on daratumumab and Velcade and completed cycle 3 the week of 02/13 - Continue ongoing outpatient follow-up after discharge DM-2 - Well-controlled with hemoglobin A1c of 6.4 on 12/06/2024 - On Lantus 10 units at at bedtime with basal insulin typically at 21 units at at bedtime due to n.p.o. and decreased p.o. intake -FBGT this am was 81 so will continue 10 u for now - Fasting blood sugar this morning was 101 - Continue to monitor blood sugars - Continue SSI Nonobstructive CAD/essential hypertension/hyperlipidemia - Continue aspirin for now but with transition to Eliquis will likely discontinue - Continue statin - Continue amlodipine - Continue Lopressor Hypothyroidism - Continue home Synthroid DVT prophylaxis - Continue SCDs for now - Plan to transition to Eliquis 2.5 mg p.o. twice daily once okay with general surgery - Could start subcu heparin earlier if okay with general surgery CODE STATUS - Full code as verified at the time of admission Charges/Coding Visit Charges Inpatient E&M: 52307 Subs Hosp L2
--- NOTE | 2025-02-22 08:26 | PN.SURG_ITS ---
Subjective Subjective Patient still reports some abdominal pain. He says he feels very sore. He is currently getting dialysis. He denies any nausea or vomiting. Objective Data Objective Data Vital Signs: Vital Signs Temp Pulse Resp BP Pulse Ox O2 Del Method O2 Flow Rate 98.2 F 89 18 126/72 H 94 Nasal Cannula 2 02/22/25 05:24 02/22/25 08:05 02/22/25 05:24 02/22/25 08:05 02/22/25 05:24 02/22/25 05:24 02/22/25 05:24 Oxygen Flow Rate (L/min) 2 Oxygen Delivery Method Nasal Cannula Weight: 168 lb 6.931 oz Body Mass Index (BMI) 23.5 Intake & Output: Intake and Output for Last 24 Hours 02/20/25 02/21/25 02/22/25 23:59 23:59 23:59 Intake Total 1100.00 / 1600.00 1435.25 / 1510.25 325 / 325 Output Total 3105 / 5485 3175 / 3320 255 / 255 Balance -2005.00 / -3885.00 -1739.75 / -1809.75 70 / 70 Lab / Micro Data 02/22/25 06:00 02/22/25 06:00 Labs: Laboratory Results - last 24 hr 02/18/25 07:06: Crossmatch See Detail 02/20/25 06:37: Heparin-induced Plt Ab 0.063 02/21/25 08:26: Blood Type O POSITIVE, Antibody Screen NEGATIVE, Crossmatch See Detail 02/21/25 14:25: PT 15.8 H, INR 1.2, APTT 31.4 02/21/25 17:59: Hgb 9.4 L, Hct 28.2 L 02/21/25 18:25: POC Glucose 119 H 02/21/25 21:53: POC Glucose 97 02/22/25 06:00: WBC 8.5, RBC 2.98 L, Hgb 9.2 L, Hct 27.1 L, MCV 90.9, MCH 30.9, MCHC 33.9, RDW Std Deviation 58.9 H, RDW Coeff of Scotty 17.8 H, Plt Count 165, MPV 10.0, Immature Gran % (Auto) 0.800, Neut % (Auto) 79.5 H, Lymph % (Auto) 8.1 L, [place] % (Auto) 6.1, Eos % (Auto) 5.3 H, Baso % (Auto) 0.2, Absolute Neuts (auto) 6.8, Absolute Lymphs (auto) 0.69 L, Nucleated RBC % 0, Sodium 136, Potassium 3.9, Chloride 104, Carbon Dioxide 18.7 L, Anion Gap 13, BUN 24 H, Creatinine 3.26 H, Estim Creat Clear Calc 17.97 L, Est GFR (MDRD) Non-Af 18 L, B UN/Creatinine Ratio 7.3 L, Glucose 81, Calcium 6.7 L, Phosphorus 3.7, Magnesium 1.7, Total Bilirubin 0.47, AST 68 H, ALT 60 H, Alkaline Phosphatase 94, Total Protein 5.6 L, Albumin 2.8 L, Globulin 2.8, Albumin/Globulin Ratio 1.0, Random Vancomycin 13.2 02/22/25 06:36: POC Glucose 80 Micro: Microbiology 02/20/25 20:38 Stool Stool Occult Blood (ANABELL) - Final 02/20/25 20:38 Stool Enteric Bacteriology - Final 02/20/25 20:38 Stool Clostridioides difficile (PCR) - Final 02/17/25 15:29 Blood Culture (Wb) - Left Hand Blood Culture - Preliminary No growth in 48 hours. 02/17/25 15:29 Blood Culture (Wb) - Left Forearm Blood Culture - Preliminary No growth in 48 hours. Physical Exam Const oriented x3 and no apparent distress Resp normal respiratory effort GI soft to palpation Inspection: Negative for abdominal distention Assessment & Plan Assessment/Plan (1) Acute cholecystitis: PLAN: Patient's hemoglobin is stable this morning. He says he is too much pain to go home today. He is currently getting dialysis. I will advance his diet to full liquids. Drain is serosanguineous likely DC drain and DC patient tomorrow Yaniv Martinez MD Pager: [facility] [address] [place] [address], [address] [place] [phone] Office:
--- NOTE | 2025-02-22 09:11 | PCM.RX.CS ---
Consult Antibiotic Management Pharmacy has been consulted to manage selected antibiotic: Vancomycin Type of Intervention Type of Consult: Follow-up Prior Doses of Antibiotics Prior Doses of Antibiotics Received/Current Regimen: last received 750mg IV x1 after surgery yesterday at 18:04 Labs Labs: Sodium 136 mmol/L (135-145) 02/22/25 06:00 Potassium 3.9 mmol/L (3.5-5.1) 02/22/25 06:00 Chloride 104 mmol/L (96-106) 02/22/25 06:00 Carbon Dioxide 18.7 mmol/L (20.0-29.0) L 02/22/25 06:00 Anion Gap 13 (7-18) 02/22/25 06:00 BUN 24 mg/dL (4-19) H 02/22/25 06:00 Creatinine 3.26 mg/dL (0.70-1.20) H 02/22/25 06:00 Est GFR (MDRD) Non-Af 18 (>60) L 02/22/25 06:00 BUN/Creatinine Ratio 7.3 RATIO (10-20) L 02/22/25 06:00 Glucose 81 mg/dL (70-99) 02/22/25 06:00 Random Vancomycin 13.2 ug/mL (0.0-15.0) 02/22/25 06:00 Microbiology Microbiology: Microbiology 02/20/25 20:38 Stool Stool Occult Blood (ANABELL) - Final 02/20/25 20:38 Stool Enteric Bacteriology - Final 02/20/25 20:38 Stool Clostridioides difficile (PCR) - Final 02/17/25 15:29 Blood Culture (Wb) - Left Hand Blood Culture - Preliminary No growth in 48 hours. 02/17/25 15:29 Blood Culture (Wb) - Left Forearm Blood Culture - Preliminary No growth in 48 hours. Dosing Weight Weight used for dosin.4 kg Estimated Creatinine Clearance Estimated Creatinine Clearance: on HD Goal Trough Goal Trough: 15-20 mcg/mL Pharmacy Plan for Drug Dosing Pharmacy Plan for Drug Dosing: VANCOMYCIN LEVEL RECEIVED Current Vancomycin Dose: NO SCHEDULED DOSE Number of Doses Received: HAD 750MG X1 YESTERDAY AFTER SURGERY AT 18:04 Vancomycin Level: 13.2 Hours Since Last Dose: 12 HRS Renal Function: ON HD Renal Function Trend: on HD Vancomycin Plan/Comments: FOR LEVEL 13.2, GIVE ANOTHER 750MG X1 TODAY AFTER DIALYSIS Pending Level: 02/25/25 06:00 RANDOM LEVEL PRE-HD. NEXT EXPECTED DATE OF HD IS Thursday02/25/25 PER HD NURSE SO WILL ORDER RANDOM LEVEL FOR THAT MORNING. Pharmacy Service will continue to monitor and adjust dosing as required. Follow-Up Labs Follow-Up Labs: Trough: Vancomycin (random) Date/Time Labs Ordered Labs to be done on [date and time ordered]: 02/25/25 06:00 pre-HD
[2025-02-22] MEDS: PureFlow B 3K Dialysis Soln 1 BAG 6 BAG PF (09:44)
[2025-02-22] MEDS: 0.9% Saline Lock 10 ML Syringe IV (09:44)
[2025-02-22] MEDS: 0.9% Normal Saline 1,000 ML IV.SOLN. 1000 ML OPERA.SITE (09:44)
[2025-02-22] MEDS: Piperacil/Tazobactam 3.375 GM in 0.9% Normal Saline (50mL MB+) 50 ML IV ×2 (11:54→21:21)
--- NOTE | 2025-02-22 13:06 | PN.RENAL_ITS ---
Subjective Subjective Follow-up on acute kidney injury, hemodialysis dependent. Had dialysis session earlier today, tolerated well. is at bedside, has been feeling okay. States that the urine output is fair Objective Data Objective Data Vital Signs: Vital Signs Temp Pulse Resp BP Pulse Ox O2 Del Method O2 Flow Rate 97.8 F 97 16 147/90 H 95 Nasal Cannula 2 02/22/25 08:00 02/22/25 11:30 02/22/25 11:30 02/22/25 11:30 02/22/25 11:30 02/22/25 11:30 02/22/25 11:30 Oxygen Flow Rate (L/min) 2 Oxygen Delivery Method Nasal Cannula Weight: 76.4 kg Body Mass Index (BMI) 23.6 Intake & Output: Intake and Output for Last 24 Hours 02/20/25 02/21/25 02/22/25 23:59 23:59 23:59 Intake Total 1100.00 / 1600.00 1435.25 / 1510.25 725 / 725 Output Total 3105 / 5485 3175 / 3320 1974 Balance -2005.00 / -3885.00 -1739.75 / -1809.75 -1250 / -1250 Lab / Micro Data Attestation: I reviewed the patient's lab results. 02/22/25 06:00 02/22/25 06:00 Labs: Laboratory Results - last 24 hr 02/20/25 06:37: Heparin-induced Plt Ab 0.063 02/21/25 08:26: Blood Type O POSITIVE, Antibody Screen NEGATIVE, Crossmatch See Detail 02/21/25 14:25: PT 15.8 H, INR 1.2, APTT 31.4 02/21/25 17:59: Hgb 9.4 L, Hct 28.2 L 02/21/25 18:25: POC Glucose 119 H 02/21/25 21:53: POC Glucose 97 02/22/25 06:00: WBC 8.5, RBC 2.98 L, Hgb 9.2 L, Hct 27.1 L, MCV 90.9, MCH 30.9, MCHC 33.9, RDW Std Deviation 58.9 H, RDW Coeff of Scotty 17.8 H, Plt Count 165, MPV 10.0, Immature Gran % (Auto) 0.800, Neut % (Auto) 79.5 H, Lymph % (Auto) 8.1 L, [place] % (Auto) 6.1, Eos % (Auto) 5.3 H, Baso % (Auto) 0.2, Absolute Neuts (auto) 6.8, Absolute Lymphs (auto) 0.69 L, Nucleated RBC % 0, Sodium 136, Potassium 3.9, Chloride 104, Carbon Dioxide 18.7 L, Anion Gap 13, BUN 24 H, Creatinine 3.26 H, Estim Creat Clear Calc 17.97 L, Est GFR (MDRD) Non-Af 18 L, B UN/Creatinine Ratio 7.3 L, Glucose 81, Calcium 6.7 L, Phosphorus 3.7, Magnesium 1.7, Total Bilirubin 0.47, AST 68 H, ALT 60 H, Alkaline Phosphatase 94, Total Protein 5.6 L, Albumin 2.8 L, Globulin 2.8, Albumin/Globulin Ratio 1.0, Random Vancomycin 13.2 02/22/25 06:36: POC Glucose 80 02/22/25 11:51: POC Glucose 70 L Micro: Microbiology 02/20/25 20:38 Stool Stool Occult Blood (ANABELL) - Final 02/20/25 20:38 Stool Enteric Bacteriology - Final 02/20/25 20:38 Stool Clostridioides difficile (PCR) - Final 02/17/25 15:29 Blood Culture (Wb) - Left Hand Blood Culture - Preliminary No growth in 48 hours. 02/17/25 15:29 Blood Culture (Wb) - Left Forearm Blood Culture - Preliminary No growth in 48 hours. Physical Exam Const alert, oriented x3, no apparent distress and average body habitus General Appearance: well developed Orientation / Consciousness: oriented to person, oriented to place and oriented to time HEENT normocephalic Head and Scalp: atraumatic Resp no use of accessory muscles and clear to auscultation bilaterally Cardio regular rate GI non-tender Auscultation: normoactive bowel sounds Palpation: soft Skin no rashes or lesions noted Neuro Sensorium / Orientation: awake and alert Psych cooperative Assessment & Plan Assessment/Plan (1) Acute renal failure: QUALIFIERS: Acute renal failure type: with other specified pathological lesion Qualified Code(s): N17.8 - Other acute kidney failure PLAN: (1) Acute renal failure: PLAN: HD dependent. biopsy proven myeloma and ATN. last HD Isabella. admitted with abdomen pain, currently not passing gas either. Bp is ok. hold HD for today. CXR is somewhat wet. abdomen pain work up as per GI. 02/17/25. HD today. next HD thursday. CXR was wet. has rales on exam. not completely recovered yet. will continue HD twice a week for now. abdomen pain better. 02/19/2025. Now having diarrhea. Breathing is acceptable. WBC count has normalized. Right upper quadrant abdominal pain and tenderness still present. No bloody bowel movements. Discussed with hospitalist. Can start with right upper quadrant ultrasound. A CT with contrast is not very ideal due to recovering renal function but if needed to rule out active infection I guess it is okay. Will plan for dialysis tomorrow. Discussed with family bedside 02/20/2025. WBC count is better however still complains of pain in the right upper quadrant. CT abdomen with signs suggestive of acalculous cholecystitis. When he came in he had a CT abdomen without contrast which did not show similar findings. Surgery on consult. Right upper quadrant ultrasound and HIDA scan ordered. Dialysis today. Will reassess for dialysis on Thursday. 02/22/2025. Has been dialyzed earlier this morning, tolerated well. Urine output is fair, but no clearance as creatinine continues up in between dialysis session. Will plan next dialysis session on Thursday
--- NOTE | 2025-02-22 14:32 | CASEMGMT ---
RN CM NOTE: Per Dr Nolen, she anticipates pt will be medically ready to discharge tomorrow. Call placed to [facility] to notify them of same. Pedro YANN RN CM
[2025-02-22] MEDS: Vancomycin HCl 750 MG in 0.9% Normal Saline (250mL Bag) 250 ML 250 MG IV (16:39)
--- NOTE | 2025-02-22 16:55 | CASEMGMT ---
BUCK SHETTY NOTE: Reviewed therapy notes. BUCK SHETTY to room. Pt resting in bed. Discussed therapy and how he is doing moving since his surgery. He states he was up to the chair for awhile and is slow-moving, but states he feels safe to discharge home when medically ready. He denies wanting any HHC or OP therapy. He was made aware to f/u with PCP after discharge if he changes his mind. He voices understanding. Pedro ECKERT RN, CM
[2025-02-22] MEDS: Insulin Glargine-YFGN 100 UNIT/ML Pen 10 UNIT SC (21:13)
[2025-02-22] MEDS: Magnesium Chloride 64 MG Delay Rel.Tablet 128 MG PO (21:17)
[2025-02-23 03:30] VITALS: BMI 23.8
[2025-02-23 03:50] VITALS: BP 125/83; PULSE 95; RESP 14; TEMP 36.4; O2SAT 95
[2025-02-23 08:04] LABS: Hematocrit 28.3 % (40-54); Hemoglobin 9.6 g/dL (13.0-16.5); Immature Granulocytes Count 0.050 X10^3/uL (0.0-0.0); Mean Corp Hgb Conc 33.9 g/dL (32-36); Mean Corpuscular Volume 91.0 fL (80-94); Mean Platelet Vol. 9.6 fl (6.2-12.0); NRBC Flagged by Analyzer 0 % (0-5); POSITIVE DIFFERENTIAL YES; Platelet Count 194 K/mm3 (150-450); RBC Distribution Width CV 17.2 % (11.6-14.6); RBC Distribution Width SD 57.1 fl (35.1-43.9); Red Blood Count 3.11 M/mm3 (4.6-6.2); White Blood Count 4.2 K/mm3 (4.4-11.0)
[2025-02-23 08:20] LABS: AST(SGOT) 55 U/L (<=37); Alanine Aminotransfer ALT/SGPT 54 U/L (<=46); Albumin, Serum 2.8 g/dL (3.4-4.8); Alkaline Phosphatase 91 U/L (40-129); Anion Gap 13 (7-18); BUN 17 mg/dL (4-19); BUN/Creat Ratio 6.0 RATIO (10-20); Calcium,Total 7.1 mg/dL (7.6-11.0); Carbon Dioxide 21.3 mmol/L (20.0-29.0); Chloride 100 mmol/L (96-106); Estimated Creatinine Clearance 20.84 ml/min (50-250); Globulin 2.7 g/dL (2.2-4.2); Glucose 129 mg/dL (70-99); Potassium 3.8 mmol/L (3.5-5.1)
[2025-02-23 09:24] VITALS: BP 138/77; PULSE 112; RESP 16; TEMP 36.6; O2SAT 93
[2025-02-23 09:30] VITALS: BP 138/77; PULSE 112
[2025-02-23] MEDS: 0.9% Saline Lock 10 ML Syringe IV ×2 (09:30→20:44)
[2025-02-23] MEDS: Piperacil/Tazobactam 3.375 GM in 0.9% Normal Saline (50mL MB+) 50 ML IV ×2 (09:31→20:44)
--- NOTE | 2025-02-23 10:08 | PCM.PN.SRG ---
Subjective Subjective YAMEL serous, complaining of pain at the YAMEL site, tolerating p.o. Objective Data Objective Data Vital Signs: Vital Signs Temp Pulse Resp BP Pulse Ox O2 Del Method O2 Flow Rate 98 F 112 H 16 138/77 H 93 Room Air 3 02/23/25 09:24 02/23/25 09:30 02/23/25 09:24 02/23/25 09:30 02/23/25 09:24 02/23/25 09:24 02/22/25 21:06 Oxygen Flow Rate (L/min) 3 Oxygen Delivery Method Room Air Weight: 169 lb 15.622 oz Body Mass Index (BMI) 23.8 Intake & Output: Intake and Output for Last 24 Hours 02/21/25 02/22/25 02/23/25 23:59 23:59 23:59 Intake Total 1435.25 / 1510.25 1040 / 1240 350 / 350 Output Total 3175 / 3320 3005 / 3005 140 / 140 Balance -1739.75 / -1809.75 -1965 / -1765 210 / 210 Lab / Micro Data 02/23/25 07:50 02/23/25 07:50 Labs: Laboratory Results - last 24 hr 02/22/25 11:51: POC Glucose 70 L 02/22/25 13:13: POC Glucose 125 H 02/22/25 16:37: POC Glucose 167 H 02/22/25 21:11: POC Glucose 165 H 02/23/25 07:50: WBC 4.2 L, RBC 3.11 L, Hgb 9.6 L, Hct 28.3 L, MCV 91.0, MCH 30.9, MCHC 33.9, RDW Std Deviation 57.1 H, RDW Coeff of Scotty 17.2 H, Plt Count 194, MPV 9.6, Immature Gran % (Auto) 1.200 H, Neut % (Auto) 74.7 H, Lymph % (Auto) 9.4 L, [place] % (Auto) 7.5, Eos % (Auto) 7.0 H, Baso % (Auto) 0.2, Absolute Neuts (auto) 3.1, Absolute Lymphs (auto) 0.39 L, Nucleated RBC % 0, Sodium 134 L, Potassium 3.8, Chloride 100, Carbon Dioxide 21.3, Anion Gap 13, BUN 17, Creatinine 2.81 H, Estim Creat Clear Calc 20.84 L, Est GFR (MDRD) Non-Af 21 L, BUN/Creatinine Ratio 6.0 L, Glucose 129 H, Calcium 7.1 L, Total Bilirubin 0.35, AST 55 H, ALT 54 H, Alkaline Phosphatase 91, Total Protein 5.5 L, Albumin 2.8 L, Globulin 2.7, Albumin/Globulin Ratio 1.0 Micro: Microbiology 02/17/25 15:29 Blood Culture (Wb) - Left Hand Blood Culture - Final No growth in 5 days. 02/17/25 15:29 Blood Culture (Wb) - Left Forearm Blood Culture - Final No growth in 5 days. 02/20/25 20:38 Stool Stool Occult Blood (ANABELL) - Final 02/20/25 20:38 Stool Enteric Bacteriology - Final 02/20/25 20:38 Stool Clostridioides difficile (PCR) - Final Physical Exam Const oriented x3 and no apparent distress Resp normal respiratory effort GI soft to palpation GI Narrative: YAMEL serous?removed at bedside, tender incision clean dry and intact with Steri-Strips. Assessment & Plan Assessment/Plan (1) Acute cholecystitis: PLAN: Tolerating full liquids will advance to diabetic diet. YAMEL DC'd at bedside. Patient tolerated well. Pain improved after YAMEL removal. Okay to DC home per surgery standpoint. Plan to have him follow-up with Dr. Evans in 1 to 2 weeks. Yaniv Martinez MD Pager: [facility] [address] [place] [address], [address] [place] [phone] Office:
--- NOTE | 2025-02-23 11:09 | DCINST_ITS ---
Discharge Instructions Diet Discharge Diet: Light diet - advance as tolerated Activity Discharge Activity: May Not Drive (while taking narcotic pain medications.) May shower in (days): 1 Lifting Restrictions: no lifting >20 lbs x 2 wks, no strenuous exercise for 4 wks Dressing / Incision Call your doctor if your incision/area has: Continuous Slow Oozing, Sudden Increased Bleeding, Increased Pain/ Swelling, Increased Redness, Foul Smelling Discharge and Swelling at the incision site Call your doctor if you observe: Fever of 101 or Higher Remove Dressing in: 2 days Cleanse incision/area with: Soap & Water Additional Dressing/Incision Instructions:: Steri-Strips will fall off in 7 to 10 days, if they do not fall off okay to remove after 10 days. Follow Up Care Please Follow Up With: Henry Evans MD When: Call the office for a follow-up appointment 2 weeks; after 5 PM and on the weekends call [phone] with any concerns. Test Results: Test results from this visit will be discussed in further detail at your follow- up appointment, if applicable. Discharge Plan Admission Admit Date/Time: 02/18/25 08:32 Attending Provider: Bri Nolen Primary Care Provider: Kevin Flaherty Consulting Providers: Alyssia Harding; Claire Mazariegos; Henry Evans; Abdullahi Rahman Discharge Orders/Prescriptions Prescriptions: New oxycodone 5 mg capsule 5 mg PO Q6H PRN (Reason: pain) 3 Days Qty: 7 0RF No Action (DME) True Metrix Glucose Test Strip Strip See Dose Instructions .ROUTE .MEDSUPPLY Qty: 100 1RF Rx Instructions: As directed (DME) blood-glucose meter Kit See Rx Instructions .ROUTE .MEDSUPPLY Qty: 1 0RF Rx Instructions: As directed atorvastatin 20 mg tablet 20 mg PO QDAY Qty: 90 2RF levothyroxine 100 mcg tablet 100 mcg PO DAILY Qty: 100 3RF (DME) lancets [Unilet Lancets] 30 gauge misc See Dose Instructions .ROUTE .MEDSUPPLY Qty: 100 1RF Rx Instructions: As directed (DME) pen needle, diabetic [CareFine Pen Needle] 29 gauge x 1/2 needle See Rx Instructions .Route Qty: 100 3RF Rx Instructions: As directed dexamethasone 4 mg tablet 40 mg PO QWEEK Rx Instructions: Take 40 mg daily for 4 days starting December 15, 2024 then once weekly on days of chemotherapy omeprazole 20 mg capsule,delayed release(DR/EC) 20 mg PO QHS mirtazapine 7.5 mg tablet 7.5 mg PO QHS 90 Days Qty: 90 3RF aspirin 81 mg tablet 81 mg PO QDAY pramoxine [Proctofoam] 1 % foam 1 applic [place] BID Qty: 15 2RF magnesium 250 mg tablet 250 mg PO QHS insulin glargine [Lantus Solostar U-100 Insulin] 100 unit/mL (3 mL) insulin pen 21 unit subcut QHS ondansetron 4 mg tablet,disintegrating 4 mg PO Q8H PRN (Reason: nausea and vomiting) Qty: 14 0RF acyclovir 200 mg capsule 200 mg PO BID Qty: 60 2RF insulin lispro [Humalog KwikPen Insulin] 100 unit/mL insulin pen 1 sliding scale dose subcut QACHS Qty: 15 0RF Rx Instructions: Blood Sugar 61-150 five 0 units Blood sugar 151-200 give 2 units Blood sugar 201-250 give 4 units Blood sugar 251-300 give 6 units Blood sugar 301-350 give 8 units Blood sugar 351-400 give 10 units Blood sugar over 400 call physician amlodipine 5 mg tablet 5 mg PO DAILY 30 Days Qty: 90 2RF metoprolol tartrate 25 mg tablet 25 mg PO BID 30 Days Qty: 180 2RF Referrals / Follow Up: Kevin Flaherty DO [Primary Care Provider, Internal Medicine] - 3-5 Days Isaac Jimenez MD [Med Staff - Active Staff, Urology] - 3-5 Days
--- NOTE | 2025-02-23 15:13 | PN.HOSP_ITS ---
Reason for Visit Chief Complaint: Epigastric pain Subjective Subjective Patient has only required 2 doses of as needed oxycodone. Overall feeling better. Reevaluated after drain pulled and feeling much better after the drain was removed. Unfortunately still having some difficulty with urination and his urine output is continuing to improve despite his dialysis. This is concerning in him. I did explain to him that this is not uncommon after surgery due to anesthetic and pain medication. We will go ahead and start some Flomax and see if this does not resolve tomorrow. Objective Data Objective Data Vital Signs: Vital Signs Temp Pulse Resp BP Pulse Ox O2 Del Method O2 Flow Rate 98 F 112 H 16 138/77 H 93 Room Air 3 02/23/25 09:24 02/23/25 09:30 02/23/25 09:24 02/23/25 09:30 02/23/25 09:24 02/23/25 09:24 02/22/25 21:06 Oxygen Flow Rate (L/min) 3 Oxygen Delivery Method Room Air Weight: 77.1 kg Body Mass Index (BMI) 23.8 Intake & Output: Intake and Output for Last 24 Hours 02/21/25 02/22/25 02/23/25 23:59 23:59 23:59 Intake Total 1435.25 / 1510.25 1040 / 1240 640 / 640 Output Total 3175 / 3320 3005 / 3005 170 / 170 Balance -1739.75 / -1809.75 -1965 / -1765 470 / 470 Lab / Micro Data 02/23/25 07:50 02/23/25 07:50 Labs: Laboratory Results - last 24 hr 02/22/25 16:37: POC Glucose 167 H 02/22/25 21:11: POC Glucose 165 H 02/23/25 06:48: POC Glucose 125 H 02/23/25 07:50: WBC 4.2 L, RBC 3.11 L, Hgb 9.6 L, Hct 28.3 L, MCV 91.0, MCH 30.9, MCHC 33.9, RDW Std Deviation 57.1 H, RDW Coeff of Scotty 17.2 H, Plt Count 194, MPV 9.6, Immature Gran % (Auto) 1.200 H, Neut % (Auto) 74.7 H, Lymph % (Auto) 9.4 L, [place] % (Auto) 7.5, Eos % (Auto) 7.0 H, Baso % (Auto) 0.2, Absolute Neuts (auto) 3.1, Absolute Lymphs (auto) 0.39 L, Nucleated RBC % 0, Sodium 134 L , Potassium 3.8, Chloride 100, Carbon Dioxide 21.3, Anion Gap 13, BUN 17, C reatinine 2.81 H, Estim Creat Clear Calc 20.84 L, Est GFR (MDRD) Non-Af 21 L, B UN/Creatinine Ratio 6.0 L, Glucose 129 H, Calcium 7.1 L, Total Bilirubin 0.35, A ST 55 H, ALT 54 H, Alkaline Phosphatase 91, Total Protein 5.5 L, Albumin 2.8 L, Globulin 2.7, Albumin/Globulin Ratio 1.0 02/23/25 11:43: POC Glucose 183 H Micro: Microbiology 02/17/25 15:29 Blood Culture (Wb) - Left Hand Blood Culture - Final No growth in 5 days. 02/17/25 15:29 Blood Culture (Wb) - Left Forearm Blood Culture - Final No growth in 5 days. 02/20/25 20:38 Stool Stool Occult Blood (ANABELL) - Final 02/20/25 20:38 Stool Enteric Bacteriology - Final 02/20/25 20:38 Stool Clostridioides difficile (PCR) - Final Physical Exam Const alert, oriented x3, no apparent distress, average body habitus and well nourished Constitutional Narrative: Pleasant, elderly, white male, lying in bed, appears comfortable, nontoxic, appears much more comfortable than yesterday General Appearance: cooperative HEENT normocephalic, head/scalp atraumatic and moist oral mucous membranes Eyes Negative for conjunctivae normal Resp normal respiratory effort, normal air movement, no retractions, no use of accessory muscles and clear to auscultation bilaterally Resp Narrative: Mildly diminished at bases bilaterally but otherwise clear Auscultation: Negative for rales, rhonchi or wheezes Cardio regular rate, regular rhythm, S1 normal heart sound, S2 normal heart sound, no murmurs, no rub, no gallops and no clicks GI normal to inspection, nondistended, normoactive bowel sounds and soft to palpation GI Narrative: Mild tenderness most notably near drain site, YAMEL in place with more serous appearing drainage, bandages are dry clean and intact Extremity no clubbing, cyanosis or edema Extremity Narrative: 2+ pedal pulses Neuro moves all extremities and no focal motor deficits Speech: speech normal Psych mental status grossly normal and affect normal Psych Narrative: Very pleasant, eye contact is good and patient appears comfortable Assessment & Plan Assessment/Plan (1) Acute cholecystitis: (2) Acute on chronic anemia: (3) Hypokalemia: PLAN: Plan Epigastric abdominal pain secondary to acute cholecystitis with gangrenous gall bladder - CT on presentation of the abdomen and pelvis with oral contrast showed perinephritic stranding and a distended bladder with enlarged prostate and no other acute concerning findings - Constipation noted on KUB with aggressive bowel regimen initiated but persistent pain - CT abdomen pelvis with IV contrast showed distended gallbladder and new pericholestatic fluid with no cholelithiasis or bile duct dilation - Gallbladder ultrasound on 02/20/2025 with no evidence of cholecystitis and only a gallbladder polyp versus adherent stone and ascites - HIDA scan done on 02/20/2025 that showed findings consistent with acute cholecystitis - Post-op day 2 Laparoscopic cholecystectomy -post op abx per Gen surg - Continue as needed oxy - Advance diet to regular food - YAMEL drain removed -ABX per surgery(on Zosyn) - Discussed with Dr. Ayala for discharge today from surgical standpoint Acute urinary retention - Secondary to intraoperative medications and pain medications - Minimize pain medications as able - Start Flomax twice daily - Patient is starting to be able to urinate some - Should improve within the next 24 hours Acute on chronic anemia secondary to renal disease - Assess for acute blood loss - Occult neg - Was transfused 1 unit on 02/17/2025 and 2 U 02/21/25 - Hemoglobin remained stable - Baseline hemoglobin appears to run between 7.5 and 8.5 and is related to his renal disease and multiple myeloma - Repeat CBC in a.m. - Assess for stability New onset A-fib with RVR - Patient became tachycardic during dialysis on a.m. of 02/20/2025 - EKG was consistent with A-fib with RVR - recurrent post-op but now in NSR again - plan will be for Eliquis 2.5 mg p.o. twice daily when deemed appropriate by surgery--> will discuss again tomorrow prior to discharge if okay to start and if not when -Should be able to discontinue aspirin at that time - Continue to monitor on telemetry - Will need outpatient cardiology follow-up End-stage renal disease on HD - Secondary to biopsy-proven multiple myeloma and ATN - Currently on HD twice weekly -HD today to clear contrast - Last dialysis session 02/20/2025 - Nephrology following and will continue dialysis per nephrology - Patient does appear to be having recovery of his renal function Multiple myeloma - Follows with oncology with last office visit 02/13/2025 - Diagnosed in November 2024 - Currently on daratumumab and Velcade and completed cycle 3 the week of 02/13 - Continue ongoing outpatient follow-up after discharge DM-2 - Well-controlled with hemoglobin A1c of 6.4 on 12/06/2024 - On Lantus 10 units at at bedtime with basal insulin typically at 21 units at at bedtime due to n.p.o. and decreased p.o. intake -FBGT this am was 129 so will continue 10 u for now--> expect will be able to increase basal insulin with patient advancing diet - Continue to monitor blood sugars - Continue SSI Nonobstructive CAD/essential hypertension/hyperlipidemia - Continue aspirin for now but with transition to Eliquis will likely discontinue - Continue statin - Continue amlodipine - Continue Lopressor Hypothyroidism - Continue home Synthroid DVT prophylaxis - Continue SCDs for now - Plan to transition to Eliquis 2.5 mg p.o. twice daily once okay with general surgery - Could start subcu heparin earlier if okay with general surgery CODE STATUS - Full code Charges/Coding Visit Charges Inpatient E&M: 78619 Subs Hosp L2
[2025-02-23 15:40] VITALS: BP 116/75; PULSE 91; RESP 18; TEMP 36.8; O2SAT 96
[2025-02-23 20:43] VITALS: BP 135/82; PULSE 95; RESP 18; TEMP 36.1; O2SAT 92
[2025-02-23] MEDS: Insulin Glargine-YFGN 100 UNIT/ML Pen 10 UNIT SC (20:47)
[2025-02-23 20:53] VITALS: BP 135/82; PULSE 95
[2025-02-23] MEDS: Magnesium Chloride 64 MG Delay Rel.Tablet 128 MG PO (20:53)
[2025-02-24 05:31] VITALS: BMI 25.5
[2025-02-24 06:00] VITALS: BP 136/79; PULSE 96; RESP 16; TEMP 36.2; O2SAT 92
[2025-02-24 07:08] LABS: Hematocrit 26.0 % (40-54); Hemoglobin 9.3 g/dL (13.0-16.5); Mean Corp Hgb Conc 35.8 g/dL (32-36); Mean Corpuscular Volume 90.0 fL (80-94); Mean Platelet Vol. 9.6 fl (6.2-12.0); Platelet Count 221 K/mm3 (150-450); RBC Distribution Width CV 16.3 % (11.6-14.6); RBC Distribution Width SD 54.0 fl (35.1-43.9); Red Blood Count 2.89 M/mm3 (4.6-6.2); White Blood Count 3.9 K/mm3 (4.4-11.0)
[2025-02-24 07:14] LABS: Scan Indicated on CBC? Y/N NO
[2025-02-24 07:55] LABS: Vancomycin, Random Level 12.0 ug/mL (0.0-15.0)
[2025-02-24 08:04] LABS: Anion Gap 12 (7-18); BUN 19 mg/dL (4-19); BUN/Creat Ratio 6.2 RATIO (10-20); Calcium,Total 7.1 mg/dL (7.6-11.0); Carbon Dioxide 20.9 mmol/L (20.0-29.0); Chloride 99 mmol/L (96-106); Estimated Creatinine Clearance 19.02 ml/min (50-250); Glucose 139 mg/dL (70-99); Potassium 3.9 mmol/L (3.5-5.1)
[2025-02-24 09:42] VITALS: BP 146/77; PULSE 94; RESP 16; TEMP 36.8; O2SAT 95
[2025-02-24 09:50] VITALS: PULSE 94
[2025-02-24] MEDS: Piperacil/Tazobactam 3.375 GM in 0.9% Normal Saline (50mL MB+) 50 ML IV (09:51)
--- NOTE | 2025-02-24 09:54 | DS.PCM_ITS ---
Providers Date of Admission: 02/18/25 Date of Discharge: 02/24/25 Primary Care Physician: Dr. Kevin Flaherty, DO Consultations 02/15/25 13:49 Consult: Nephrology Routine Consulting Provider: Alyssia Harding Reason for Consult: esrd on HD EMERGENT Consult: No Notified: Yes Date Notified: 02/15/25 Time Notified: 13:56 Method of Notification: Answering Service 02/20/25 08:01 Consult: General Surgery Routine Consulting Provider: Henry Evans Reason for Consult: concern for acute cholecystitis EMERGENT Consult: No Notified: Yes Date Notified: 02/20/25 Time Notified: 09:04 Method of Notification: Text Reason For Visit: EPIGASTRIC PAIN Diagnosis Discharge Diagnosis (1) Acute cholecystitis: Status: Resolved Code(s): K81.0 - Acute cholecystitis (2) Acute on chronic anemia: Status: Chronic Code(s): D64.9 - Anemia, unspecified (3) Hypokalemia: Status: Acute Code(s): E87.6 - Hypokalemia Medications at Discharge Home Medications blood sugar diagnostic (True Metrix Glucose Test Strip) #100 ea 02/11/23 blood-glucose meter #1 ea 02/11/23 atorvastatin 20 mg tablet 20 mg PO QDAY cholesterol #90 tabs 09/29/24 lancets 30 gauge (Unilet Lancets) #100 ea 09/29/24 levothyroxine 100 mcg tablet 100 mcg PO DAILY thyroid #100 tabs 09/29/24 pen needle, diabetic 29 gauge x 1/2 (CareFine Pen Needle) #100 ea 09/29/24 ondansetron 4 mg disintegrating tablet 4 mg PO Q8H PRN nausea and vomiting #14 tabs 11/29/24 insulin glargine 100 unit/mL (3 mL) subcutaneous pen (Lantus Solostar U-100 Insulin) 21 unit subcut QHS diabetes 12/03/24 magnesium 250 mg tablet 250 mg PO QHS supplement 12/03/24 acyclovir 200 mg capsule 200 mg PO BID virus #60 caps 12/14/24 insulin lispro 100 unit/mL subcutaneous pen (Humalog KwikPen (U-100) Insulin) 1 sliding scale dose subcut QACHS diabetes #15 mL 12/15/24 dexamethasone 4 mg tablet 40 mg PO QWEEK inflammation 10/30/25 mirtazapine 7.5 mg tablet 7.5 mg PO QHS mental health 90 days #90 tabs 12/29/24 omeprazole 20 mg capsule,delayed release 20 mg PO QHS reflux 12/29/24 amlodipine 5 mg tablet 5 mg PO DAILY blood pressure 30 days #90 tabs 01/02/25 metoprolol tartrate 25 mg tablet 25 mg PO BID blood pressure 30 days #180 tabs 01/02/25 pramoxine 1 % topical foam (Proctofoam) 1 applic MA BID skin #15 grams 02/08/25 oxycodone 5 mg capsule 5 mg PO Q6H PRN pain 3 days #7 caps 02/23/25 apixaban 2.5 mg tablet (Eliquis) 2.5 mg PO BID #60 tabs 02/24/25 Hospital Course Operations - (Laparoscopic cholecystectomy) Procedures Dialysis, EKG and - (CT abdomen/chest x-ray/KUB/CT chest abdomen pelvis/gallbladder ultrasound/HIDA scan) Summary of Care Provided Minutes Spent on Discharge: 45 Hospital Course: Mr. Vargas is an 84-year-old white male who presented to the emergency department [facility] on 02/15/2025 with a chief complaint of epigastric pain that woke him from sleep at 4 AM. He indicated he went to bed feeling normal but came to emergency department due to pain. He indicated it was squeezing and pressure-like. He had no associated nausea, vomiting, shortness of breath, or radiation. He has a known history of multiple myeloma and is currently dialysis dependent from renal failure related to his myeloma. Vital signs on presentation were overtly unremarkable. CBC showed stable anemia and mild thrombocytopenia. BMP had no acute changes other than his glucose was markedly elevated at 320. Liver panel was unremarkable. Lipase was 87. Chest x-ray showed mild central vascular congestion and trace left pleural effusion. CT of the abdomen pelvis was done at that time which showed left kidney cyst perinephritic stranding, distended bladder with an enlarged prostate. UA was not suggestive of infection. The initial plan was for discharge home however he was having ongoing pain and tenderness in the epigastrium. Cardiac workup was unremarkable. Patient was placed on aspirin for DVT prophylaxis and has been on dexamethasone for his chemo. He was admitted to the telemetry floor and placed on IV PPI twice daily, transitional diet and given supportive care and nephrology was consulted for ongoing dialysis. His symptoms remain problematic and were severe at times. KUB was obtained and showed large amount of fecal material in the colon and he was given stool softeners which resulted in a large bowel movement with decreased abdominal discomfort and less distention on repeat exam later that day. Unfortunately he has not redeveloped abdominal discomfort despite ongoing bowel movements. And given ongoing pain, CT of the chest abdomen pelvis was obtained on 02/19/2025 which demonstrated small to moderate bilateral pleural effusions, distended gallbladder with pericholestatic fluid concerning for acute cholecystitis, perihepatic ascites, hepatomegaly, and prostatomegaly. Given these findings a gallbladder ultrasound was performed on 02/20/2025 that showed gallbladder distention and thickening of the gallbladder wall. General surgery was consulted and a HIDA scan was performed on 02/20/2025 and showed findings consistent with acute cholecystitis. Given this he was taken to the OR on 02/21/2025 for a laparoscopic cholecystectomy at which time he was found to have acute cholecystitis with a gangrenous gallbladder. A postoperative drain was placed and removed postop day 2. Postop day 1 he had serosanguineous drainage that was predominantly serous by the day of removal. He had 2 episodes of A-fib with RVR during his hospitalization. Both spontaneously resolved. He is already on metoprolol 25 mg p.o. twice daily which we will continue at the time of discharge and will start Eliquis 2.5 mg p.o. twice daily given age and renal function which will be initiated on 02/27/2025 given recent surgery. He did have some postoperative urinary retention in which he received as needed doses of Flomax. Urination was good prior to discharge. He will stop aspirin 81 mg daily at the time of discharge as well due to transition to Eliquis. He was on lower doses of insulin during his hospital course at 10 units. His blood sugars were trending up as his diet and appetite were advanced and improved. He will continue basal insulin and increase to 15 units and then back to his 21 units once his appetite is more regulated. He was maintained on antibiotics throughout his hospital course but per discussion with general surgery this may be discontinued at the time of discharge. Prescriptions for pain medication and Eliquis were sent to local pharmacy prior to the time of discharge. He is to follow-up with general surgery in 1 to 2 weeks and with his primary care physician within the next week. He was dialyzed on a regular schedule throughout his hospital course he had a bit of extra dialysis due to contrast being given. His next dialysis session is tomorrow 02/25/2025 at his outpatient dialysis unit he is to follow- up with that. Patient was able to be discharged home in stable condition on 02/24/2025. Discharge diagnoses: Epigastric pain secondary to acute cholecystitis with a gangrenous gallbladder Acute urinary tension in the postoperative setting Prostatomegaly Acute on chronic anemia secondary to renal disease New onset A-fib with RVR Hypokalemia Hypomagnesemia End-stage renal disease on HD secondary to multiple myeloma Multiple myeloma DM-2 Nonobstructive CAD Essential hypertension Hyperlipidemia Hypothyroidism Thrombocytopenia secondary to chemotherapy Physical Exam Narrative Patient states he feels well. Passing flatus but no bowel movement yet. No nausea or vomiting with eating and tolerating regular diet. Const alert, oriented x3, no apparent distress, average body habitus, no limitations and well nourished Constitutional Narrative: Pleasant, elderly, white male, lying in bed watching television, appears comfortable, does not look toxic General Appearance: cooperative, comfortable, well kempt and well developed Exam Limitations: no limitations HEENT normocephalic, head/scalp atraumatic, hearing grossly normal bilaterally and moist oral mucous membranes Eyes PERRL and EOMs intact bilaterally; Negative for conjunctivae normal Eyes Narrative: Mild bilateral conjunctiva pallor, no scleral icterus Neck supple Neck Narrative: Trachea midline Chest Chest Narrative: Right tunneled IJ dialysis catheter in place is clean dry and intact Resp normal respiratory effort, normal air movement, no retractions, no use of accessory muscles and clear to auscultation bilaterally Auscultation: Negative for rales, rhonchi or wheezes Cardio regular rate, regular rhythm, S1 normal heart sound, S2 normal heart sound, no murmurs, no rub, no gallops and no clicks GI normal to inspection, nondistended, normoactive bowel sounds and soft to palpation GI Narrative: Very minimal tenderness diffusely, bowel sounds are good Extremity no clubbing, cyanosis or edema Extremity Narrative: 2+ pedal pulses, 2+ radial pulses Skin skin turgor normal and no jaundice Neuro moves all extremities and no focal motor deficits Speech: speech normal Psych mental status grossly normal and affect normal Psych Narrative: Very pleasant, eye contact is good and patient appears comfortable Weight / BMI Weight Weight: 82.8 kg Body Mass Index (BMI) 25.5 ABG / Lab / Microbiology Data 02/24/25 06:15 02/24/25 06:15 Laboratory: Laboratory Results - last 24 hr 02/23/25 06:48: POC Glucose 125 H 02/23/25 11:43: POC Glucose 183 H 02/23/25 16:49: POC Glucose 168 H 02/23/25 20:46: POC Glucose 163 H 02/24/25 06:10: POC Glucose 133 H 02/24/25 06:15: WBC 3.9 L, RBC 2.89 L, Hgb 9.3 L, Hct 26.0 L, MCV 90.0, MCH 32.2 H, MCHC 35.8 D, RDW Std Deviation 54.0 H, RDW Coeff of Scotty 16.3 H, Plt Count 221, MPV 9.6, Sodium 133 L, Potassium 3.9, Chloride 99, Carbon Dioxide 20.9, Anion Gap 12, BUN 19, Creatinine 3.08 H, Estim Creat Clear Calc 19.02 L, Est GFR (MDRD) Non-Af 19 L, BUN/Creatinine Ratio 6.2 L, Glucose 139 H, Calcium 7.1 L, Random Vancomycin 12.0 Microbiology: Microbiology 02/17/25 15:29 Blood Culture (Wb) - Left Hand Blood Culture - Final No growth in 5 days. 02/17/25 15:29 Blood Culture (Wb) - Left Forearm Blood Culture - Final No growth in 5 days. 02/20/25 20:38 Stool Stool Occult Blood (ANABELL) - Final 02/20/25 20:38 Stool Enteric Bacteriology - Final 02/20/25 20:38 Stool Clostridioides difficile (PCR) - Final D/C Instructions Discharge Activity: Return to Normal Activity May shower in (days): 1 Call your doctor if your incision/area has: Continuous Slow Oozing, Sudden Increased Bleeding, Increased Pain/ Swelling, Increased Redness, Foul Smelling Discharge and Swelling at the incision site Call your doctor if you observe: Fever of 101 or Higher Cleanse incision/area with: Soap & Water Additional Dressing/Incision Instructions: Steri-Strips will fall off in 7 to 10 days, if they do not fall off okay to remove after 10 days. DC O2, CPAP, BIPAP Needs Home O2 Discharge instructions: No DC home with Oxygen: No Please Follow Up With: Henry Evans MD When: Call the office for a follow-up appointment 2 weeks; after 5 PM and on the weekends call [phone] with any concerns. Patient's Goals Of Care - F/U Goals Reviewed Goals of care reviewed with patient: Yes - No change Meaningful Use Info Meaningful Use Meaningful Use Diagnoses (Choose all that apply): None applicable Discharge Plan Admission Admit Date/Time: 02/18/25 08:32 Primary Reason for Your Visit: Epigastric pain Attending Provider: rBi Nolen Primary Care Provider: Kevin Flaherty Consulting Providers: Alyssia Harding; Claire Mazariegos; Henry Evans; Abdullahi Rahman Instructions Additional Instructions / Restrictions: 1. As per our discussions you did have atrial fibrillation while hospitalized and we need to start blood thinners on you to prevent stroke. We will stop your aspirin and start apixaban/Eliquis 2.5 mg by mouth twice daily. I want you to start this on 02/27/2025. 2. Continue your Lantus (glargine) basal insulin but for the next week only take 15 units and then slowly increase back to your 21 units so you do not end up with low blood sugars Discharge Orders/Prescriptions Prescriptions: New oxycodone 5 mg capsule 5 mg PO Q6H PRN (Reason: pain) 3 Days Qty: 7 0RF Eliquis 2.5 mg tablet 2.5 mg PO BID Qty: 60 0RF Rx Instructions: start on 02/27 Continued (DME) True Metrix Glucose Test Strip Strip See Dose Instructions .ROUTE .MEDSUPPLY Qty: 100 1RF Rx Instructions: As directed (DME) blood-glucose meter Kit See Rx Instructions .ROUTE .MEDSUPPLY Qty: 1 0RF Rx Instructions: As directed atorvastatin 20 mg tablet 20 mg PO QDAY Qty: 90 2RF levothyroxine 100 mcg tablet 100 mcg PO DAILY Qty: 100 3RF (DME) lancets [Unilet Lancets] 30 gauge misc See Dose Instructions .ROUTE .MEDSUPPLY Qty: 100 1RF Rx Instructions: As directed (DME) pen needle, diabetic [CareFine Pen Needle] 29 gauge x 1/2 needle See Rx Instructions .Route Qty: 100 3RF Rx Instructions: As directed dexamethasone 4 mg tablet 40 mg PO QWEEK Rx Instructions: Take 40 mg daily for 4 days starting December 15, 2024 then once weekly on days of chemotherapy omeprazole 20 mg capsule,delayed release(DR/EC) 20 mg PO QHS mirtazapine 7.5 mg tablet 7.5 mg PO QHS 90 Days Qty: 90 3RF pramoxine [Proctofoam] 1 % foam 1 applic MA BID Qty: 15 2RF magnesium 250 mg tablet 250 mg PO QHS insulin glargine [Lantus Solostar U-100 Insulin] 100 unit/mL (3 mL) insulin pen 21 unit subcut QHS ondansetron 4 mg tablet,disintegrating 4 mg PO Q8H PRN (Reason: nausea and vomiting) Qty: 14 0RF acyclovir 200 mg capsule 200 mg PO BID Qty: 60 2RF insulin lispro [Humalog KwikPen Insulin] 100 unit/mL insulin pen 1 sliding scale dose subcut QACHS Qty: 15 0RF Rx Instructions: Blood Sugar 61-150 five 0 units Blood sugar 151-200 give 2 units Blood sugar 201-250 give 4 units Blood sugar 251-300 give 6 units Blood sugar 301-350 give 8 units Blood sugar 351-400 give 10 units Blood sugar over 400 call physician amlodipine 5 mg tablet 5 mg PO DAILY 30 Days Qty: 90 2RF metoprolol tartrate 25 mg tablet 25 mg PO BID 30 Days Qty: 180 2RF Discontinued aspirin 81 mg tablet 81 mg PO QDAY Referrals / Follow Up: Kevin Flaherty DO [Primary Care Provider, Internal Medicine] - 3-5 Days Henry Evans MD [Med Staff - Active Staff, General Surgery] - See Referral Note Referral Note: 1 to 2 weeks Disposition Disposition (needs filled in before D/C Order can be placed): Home, Self Care Charges/Coding Visit Charges Inpatient E&M: 43820 Disch Hosp >30min
--- NOTE | 2025-02-24 09:57 | PCM.PN.SRG ---
Subjective Subjective Patient states pain is improved since YAMEL was removed yesterday, tolerating diet. Patient is voiding well plan to be DC'd today. Objective Data Objective Data Vital Signs: Vital Signs Temp Pulse Resp BP Pulse Ox O2 Del Method O2 Flow Rate 98.2 F 94 16 146/77 H 95 Room Air 3 02/24/25 09:42 02/24/25 09:50 02/24/25 09:42 02/24/25 09:42 02/24/25 09:42 02/24/25 09:45 02/22/25 21:06 Oxygen Flow Rate (L/min) 3 Oxygen Delivery Method Room Air Weight: 182 lb 8.684 oz Body Mass Index (BMI) 25.5 Intake & Output: Intake and Output for Last 24 Hours 02/22/25 02/23/25 02/24/25 23:59 23:59 23:59 Intake Total 1040 / 1240 880 / 880 50 / 50 Output Total 3005 / 3005 610 / 610 100 / 100 Balance -1965 / -1765 270 / 270 -50 / -50 Lab / Micro Data 02/24/25 06:15 02/24/25 06:15 Labs: Laboratory Results - last 24 hr 02/23/25 06:48: POC Glucose 125 H 02/23/25 11:43: POC Glucose 183 H 02/23/25 16:49: POC Glucose 168 H 02/23/25 20:46: POC Glucose 163 H 02/24/25 06:10: POC Glucose 133 H 02/24/25 06:15: WBC 3.9 L, RBC 2.89 L, Hgb 9.3 L, Hct 26.0 L, MCV 90.0, MCH 32.2 H, MCHC 35.8 D, RDW Std Deviation 54.0 H, RDW Coeff of Scotty 16.3 H, Plt Count 221, MPV 9.6, Sodium 133 L, Potassium 3.9, Chloride 99, Carbon Dioxide 20.9, Anion Gap 12, BUN 19, Creatinine 3.08 H, Estim Creat Clear Calc 19.02 L, Est GFR (MDRD) Non-Af 19 L, BUN/Creatinine Ratio 6.2 L, Glucose 139 H, Calcium 7.1 L, Random Vancomycin 12.0 Micro: Microbiology 02/17/25 15:29 Blood Culture (Wb) - Left Hand Blood Culture - Final No growth in 5 days. 02/17/25 15:29 Blood Culture (Wb) - Left Forearm Blood Culture - Final No growth in 5 days. 02/20/25 20:38 Stool Stool Occult Blood (ANABELL) - Final 02/20/25 20:38 Stool Enteric Bacteriology - Final 02/20/25 20:38 Stool Clostridioides difficile (PCR) - Final Physical Exam Const no apparent distress Resp normal respiratory effort GI soft to palpation GI Narrative: tender incision clean dry and intact with Steri-Strips, gauze over previous YAMEL site. Assessment & Plan Assessment/Plan (1) S/P laparoscopic cholecystectomy: PLAN: Plan Tolerate diabetic diet. Patient's improved since YAMEL removal. Patient is voiding well plan DC home today. Okay to restart Osiel from surgery standpoint. Will have patient follow-up with Dr. Evans in 1 to 2 weeks. Clarisse Ayala M.D. Pager: [phone] [facility] [address] [place] [address], [facility], [address] [place] [id number] Office: [phone]
--- NOTE | 2025-02-24 11:06 | CASEMGMT ---
Addendum entered by Azalea Staples 02/24/25 12:08: present in room. BUCK SHETTY to room. She was made aware pt to go to OP HD @ [facility] tomorrow morning @ regular chair time of 9:50 AM. Also discussed Eliquis, 30-day free-trial offer card, and instructed on use. She was made aware this is a wznm-mg-c-lifetime use card. She voices understanding. w/concerns re: pt starting on Eliquis and ASA being held. Dr Nolen made aware. Original Note: BUCK SHETTY NOTE: Discharge order is in. Eliquis has been e-scribed to [facility]. Shellie @ [facility] notified pt is discharging home today. She verified pt is to go to [facility] tomorrow morning at his regular chair time, 9:50 AM. BUCK SHETTY to room. Pt resting in bed & was made aware of same. Discussed Eliquis, provided w/30-day free trial offer Eliquis card, and instructed on use. He voices understanding. Pt aware he is to f/u with PCP in 3-5 days and surgeon in 1-2 weeks. He denies having any discharge needs or concerns. He asked for BUCK SHETTY to review the above w/his when she comes in today. Pedro ECKERT RN, CM
--- NOTE | 2025-02-24 13:13 | PCM.PN.REN ---
Subjective Subjective Follow-up on acute kidney injury, currently dialysis dependent. Hoping for discharge today has arrangements for dialysis starting tomorrow as an outpatient Objective Data Objective Data Vital Signs: Vital Signs Temp Pulse Resp BP Pulse Ox O2 Del Method O2 Flow Rate 98.2 F 94 16 146/77 H 95 Room Air 3 02/24/25 09:42 02/24/25 09:50 02/24/25 09:42 02/24/25 09:42 02/24/25 09:42 02/24/25 09:45 02/22/25 21:06 Oxygen Flow Rate (L/min) 3 Oxygen Delivery Method Room Air Weight: 82.8 kg Body Mass Index (BMI) 25.5 Intake & Output: Intake and Output for Last 24 Hours 02/22/25 02/23/25 02/24/25 23:59 23:59 23:59 Intake Total 1040 / 1240 880 / 880 50 / 50 Output Total 3005 / 3005 610 / 610 100 / 100 Balance -1965 / -1765 270 / 270 -50 / -50 Lab / Micro Data Attestation: I reviewed the patient's lab results. 02/24/25 06:15 02/24/25 06:15 Labs: Laboratory Results - last 24 hr 02/23/25 16:49: POC Glucose 168 H 02/23/25 20:46: POC Glucose 163 H 02/24/25 06:10: POC Glucose 133 H 02/24/25 06:15: WBC 3.9 L, RBC 2.89 L, Hgb 9.3 L, Hct 26.0 L, MCV 90.0, MCH 32.2 H, MCHC 35.8 D, RDW Std Deviation 54.0 H, RDW Coeff of Scotty 16.3 H, Plt Count 221, MPV 9.6, Sodium 133 L, Potassium 3.9, Chloride 99, Carbon Dioxide 20.9, Anion Gap 12, BUN 19, Creatinine 3.08 H, Estim Creat Clear Calc 19.02 L, Est GFR (MDRD) Non-Af 19 L, BUN/Creatinine Ratio 6.2 L, Glucose 139 H, Calcium 7.1 L, Random Vancomycin 12.0 02/24/25 11:30: POC Glucose 143 H Micro: Microbiology 02/17/25 15:29 Blood Culture (Wb) - Left Hand Blood Culture - Final No growth in 5 days. 02/17/25 15:29 Blood Culture (Wb) - Left Forearm Blood Culture - Final No growth in 5 days. 02/20/25 20:38 Stool Stool Occult Blood (ANABELL) - Final 02/20/25 20:38 Stool Enteric Bacteriology - Final 02/20/25 20:38 Stool Clostridioides difficile (PCR) - Final Physical Exam Const alert, oriented x3 and no apparent distress General Appearance: well developed Orientation / Consciousness: oriented to person, oriented to place and oriented to time HEENT normocephalic Head and Scalp: atraumatic Neck no lymphadenopathy Resp no use of accessory muscles GI non-tender Auscultation: normoactive bowel sounds Palpation: soft Skin no rashes or lesions noted Neuro Sensorium / Orientation: awake and alert Psych cooperative Assessment & Plan Assessment/Plan (1) Acute renal failure: QUALIFIERS: Acute renal failure type: with other specified pathological lesion Qualified Code(s): N17.8 - Other acute kidney failure PLAN: Currently hemodialysis dependent, biopsy consistent with multiple myeloma. Will continue as an outpatient dialysis, first treatment tomorrow. He will follow-up with Dr. Harding
[2025-02-24 13:24] VITALS: BP 147/76; PULSE 92; RESP 16; TEMP 36.7; O2SAT 94
== END 2025-02-24 14:26 | disposition home or self-care (01) | DRG 417 ==
LOC: ED 13:20 → PCU 13:25
PROVIDERS: Anesthesiology; Hospitalist; Physician Assistant; Surgery; Admitting Provider Internal Medicine; Emergency Provider Emergency Medicine; PCP Family Medicine; Visit Provider Internal Medicine
PROC: 0FT44ZZ Resection of Gallbladder, Percutaneous Endoscopic Approach (ICD-10-PCS; CPT 47610; principal; 2025-02-21 11:40)
DX: K81.0 Acute cholecystitis (principal); N18.6 End stage renal disease; N17.0 Acute kidney failure with tubular necrosis; C90.00 Multiple myeloma not having achieved remission; I12.0 Hypertensive chronic kidney disease with stage 5 chronic kidney disease or end stage renal disease; K82.A1 Gangrene of gallbladder in cholecystitis; D63.1 Anemia in chronic kidney disease; D69.59 Other secondary thrombocytopenia; E11.22 Type 2 diabetes mellitus with diabetic chronic kidney disease; E03.9 Hypothyroidism, unspecified; I48.91 Unspecified atrial fibrillation; Z99.2 Dependence on renal dialysis; D72.829 Elevated white blood cell count, unspecified; E78.5 Hyperlipidemia, unspecified; K21.9 Gastro-esophageal reflux disease without esophagitis; Z79.4 Long term (current) use of insulin; K59.00 Constipation, unspecified; I25.10 Atherosclerotic heart disease of native coronary artery without angina pectoris; E87.6 Hypokalemia; D63.0 Anemia in neoplastic disease; E83.42 Hypomagnesemia; D64.81 Anemia due to antineoplastic chemotherapy; N40.0 Benign prostatic hyperplasia without lower urinary tract symptoms; N28.1 Cyst of kidney, acquired; R53.81 Other malaise; R33.0 Drug induced retention of urine; T40.2X5A Adverse effect of other opioids, initial encounter; T45.1X5A Adverse effect of antineoplastic and immunosuppressive drugs, initial encounter; Z87.19 Personal history of other diseases of the digestive system; Z90.49 Acquired absence of other specified parts of digestive tract; Z79.82 Long term (current) use of aspirin; Z79.890 Hormone replacement therapy; Z79.899 Other long term (current) drug therapy; Z87.891 Personal history of nicotine dependence
CPT/HCPCS: 36415; 71046; 71260; 74018; 74176; 74177; 76705; 78226; 80048; 80053; 80076; 80202; 81001; 82274; 82962; 83690; 83735; 84100; 85014; 85018; 85025; 85027; 85610; 85730; 86022; 86850; 86900; 86901; 86920; 86921; 86922; 87040; 87493; 87506; 88304; 90937; 93005; 94668; 97116; 97162; 97165; 97530; 97535; 99284; A9537; P9016; Q9967; A4216; G0257; J2405